=== PATIENT | male | born 1970 | race Caucasian/White ===

== ENCOUNTER 2023-05-21 14:16 | Emergency (ER) | payer MEDICARE, MEDICAID, SELFPAY ==
[2023-05-21 14:25] VITALS: BP 137/69; PULSE 106; RESP 18; TEMP 36.9; O2SAT 98; BMI 32.9
--- NOTE | 2023-05-21 14:33 | US_ITS ---
The [address] [address] Patient Name: LEANDER MASSEY MRN: [id number] date: 1970 Sex: M Assigned Patient Location: ER Current Patient Location: ER Accession/Order Number: [id number] Exam Date: 05/21/2023 14:35 Report Date: 05/21/2023 15:22 At the request of: RJ BOBBY Procedure: US venous doppler LE LT EXAM: US venous doppler LE LT HISTORY: DVT left lower extremity edema. COMPARISON: None. TECHNIQUE: Doppler color flow as well as spectral analysis were performed of the left lower extremity. FINDINGS: There is adequate flow, compressibility, or augmentation within the visualized deep venous structures of the left lower extremity. No evidence of deep venous thrombus. There is skin thickening involving the medial distal thigh. There is also subcutaneous edema. US/US venous doppler LE LT IMPRESSION: 1. No deep venous thrombus. Electronically authenticated by: CARLI CLEARY Date: 05/21/2023 15:22
--- NOTE | 2023-05-21 14:36 | ED.EXTPRO1 ---
HPI - Extremity Problem General Chief complaint: Extremity Problem, Nontraumatic Stated complaint: LOWER EXTREMITY PAIN LEFT LEG Time Seen by Provider: 05/21/23 14:18 Source: patient Mode of arrival: walk-in Limitations: no limitations History of Present Illness HPI Narrative: patient is a 52-year-old male history of dialysis who presents to the Emergency Room for pain in the left lower extremity that began last night. He denies any specific mechanism of injury or trauma. He states he was loading a bookshelf into a truck but denies that he hurt himself. He states last night he developed swelling, pain and redness to the left lower calf. He states today he has pain in the calf and left thigh. He denies fevers, chills, chest pain, shortness of breath. He has no history of blood clot. He drove himself to the Emergency Room. He receives dialysis on Sunday, , Sunday. there has been no drainage from the left leg. Related Data Home Medications Medication Instructions Recorded Confirmed amlodipine 10 mg tablet 10 mg PO QDAY 05/21/23 05/21/23 atorvastatin 40 mg tablet 40 mg PO QDAY 05/21/23 05/21/23 carvedilol 25 mg tablet 25 mg PO Q12H 05/21/23 05/21/23 gabapentin 300 mg capsule 300 mg PO Q12H 05/21/23 05/21/23 hydralazine 100 mg tablet 100 mg PO Q12H 05/21/23 05/21/23 lisinopril 20 mg tablet 20 mg PO QDAY 05/21/23 05/21/23 minoxidil 10 mg tablet 10 mg PO BID 05/21/23 05/21/23 vitamin B complex-vitamin C-folic 1 tab PO Q24H 05/21/23 05/21/23 acid 0.8 mg tablet (Nephro-Vianca) Allergies Allergy/AdvReac Type Severity Reaction Status Date / Time No Known Drug Allergies Allergy Verified 05/21/23 14:25 Review of Systems ROS Constitutional Denies: fever or chills Cardiovascular Denies: chest pain Respiratory Denies: shortness of breath or cough Gastrointestinal Denies: nausea or vomiting Musculoskeletal Reports: extremity pain; Denies: back pain Integumentary/Breast Reports: redness and skin pain Neurological Denies: headache Exam Narrative Exam Narrative: Gen.: Awake, alert, in no distress Head: Normocephalic, atraumatic ENT: Moist mucous membranes Respiratory: No respiratory distress Extremities: Moves extremities equally, diffuse swelling of the left foot, calf with circumferential erythema noted of the left distal calf, no open wounds or drainage nnoted. Erythema and induration noted to the left anterior thigh superior to the knee joint. Psych: Normal mood and affect Neuro: No focal neuro deficit Skin: Warm, dry Constitutional Vital Signs, click to edit/add: Last Vital Signs Temp 98.6 F 05/21/23 19:39 Pulse 94 H 05/21/23 19:39 Resp 18 05/21/23 19:39 BP 145/86 H 05/21/23 19:39 Pulse Ox 99 05/21/23 19:39 O2 Del Method Room Air 05/21/23 19:39 Course Vital Signs Vital signs: Vital Signs Temperature 98.4 F 05/21/23 14:25 Pulse Rate 106 H 05/21/23 14:25 Respiratory Rate 18 05/21/23 14:25 Blood Pressure 137/69 05/21/23 14:25 Pulse Oximetry 98 05/21/23 14:25 Oxygen Delivery Method Room Air 05/21/23 14:25 Temperature 98.6 F 05/21/23 19:39 Pulse Rate 94 H 05/21/23 19:39 Respiratory Rate 18 05/21/23 19:39 Blood Pressure 145/86 H 05/21/23 19:39 Pulse Oximetry 99 05/21/23 19:39 Oxygen Delivery Method Room Air 05/21/23 19:39 MDM - Extremity (Nontraumatic) MDM Narrative Medical decision making narrative: patient was treated with IV Zosyn, vancomycin for empiric treatment of cellulitis of the left lower extremity. Ultrasound of the leg shows no evidence of deep vein thrombosis. Patient with significant leukocytosis and white blood cell count at 19.3, no bandemia. Initial heart rate was 106. as a result patient meets sepsis criteria. Blood cultures are pending. as the redness, warmth and swelling to the left lower extremity has rapidly advancing last night, we recommended that the patient be admitted for IV antibiotics for cellulitis but he cannot be admitted to this facility as he is a dialysis patient in due for dialysis tomorrow. 2024: Patient was accepted by Dr. Herrera the hospitalist at [facility] for transfer to their medical floor. Patient is stable at this time, he was given additional morphine and Zofran for comfort. Medical Records Attestation: I reviewed the patient's medical records. Lab Data Attestation: I reviewed the patient's lab results. Labs: Lab Results 05/21/23 05/21/23 Range/Units 14:35 15:12 WBC 19.3 H (4.0-11.0) 10^3/uL RBC 3.37 L (4.70-6.10) 10^6/uL Hgb 11.7 L (14.0-18.0) g/dL Hct 35.5 L (42.0-54.0) % MCV 105.3 H (80.0-94.0) fL MCH 34.7 H (25.9-34.0) pg MCHC 33.0 (29.9-35.2) g/dL RDW 14.6 (11.0-15.0) % Plt Count 309 (150-450) 10^3/uL MPV 9.3 L (9.5-13.5) fL Neut % (Auto) 88.2 H (43.0-75.0) % Lymph % (Auto) 4.8 L (20.5-60.0) % [place] % (Auto) 4.5 (1.7-12.0) % Eos % (Auto) 1.7 (0.9-7.0) % Baso % (Auto) 0.1 L (0.2-2.0) % Neut # (Auto) 17.0 H (1.4-6.5) 10^3/uL Lymph # (Auto) 0.9 L (1.2-3.8) 10^3/uL [place] # (Auto) 0.9 H (0.3-0.8) 10^3/uL Eos # (Auto) 0.3 (0.0-0.7) 10^3/uL Baso # (Auto) 0.0 (0.0-0.1) 10^3/uL Abs Immat Gran (auto) 0.14 H (0.00-0.03) 10^3/uL Imm/Tot Granulo (auto) 0.7 H (0.0-0.5) % PT 10.3 (9.0-11.6) sec INR 0.97 APTT 28.3 (22.3-36.2) sec VBG pH 7.393 (7.330-7.430) VBG pCO2 46.3 (40.0-52.0) mmHg Sodium 137 (136-145) mmol/L Potassium 5.0 (3.5-5.1) mmol/L Chloride 97 L (98-107) mmol/L Carbon Dioxide 29.5 (21.0-32.0) mmol/L Anion Gap 15.5 BUN 55.0 H (7.0-18.0) mg/dL Creatinine 13.09 H* (0.70-1.30) mg/dL Est GFR ( Amer) 5 L (>=60) Est GFR (Non-Af Amer) 4 L (>=60) BUN/Creatinine Ratio 4.2 Glucose 91 (74-106) mg/dL Lactate 0.8 (0.4-2.0) mmol/L Calcium 9.5 (8.5-10.1) mg/dL Total Bilirubin 0.5 (0.2-1.0) mg/dL AST 25 (15-37) U/L ALT 8 L (16-63) U/L Alkaline Phosphatase 87 (46-116) U/L Total Protein 7.5 (6.4-8.2) g/dL Albumin 3.8 (3.4-5.0) g/dL Globulin 3.7 g/dL Albumin/Globulin Ratio 1.0 Imaging Data Venous US: Attestation: I have reviewed the pertinent imaging results. Radiologist's impression: Procedure: US venous doppler LE LT EXAM: US venous doppler LE LT HISTORY: DVT left lower extremity edema. COMPARISON: None. TECHNIQUE: Doppler color flow as well as spectral analysis were performed of the left lower extremity. FINDINGS: There is adequate flow, compressibility, or augmentation within the visualized deep venous structures of the left lower extremity. No evidence of deep venous thrombus. There is skin thickening involving the medial distal thigh. There is also subcutaneous edema. IMPRESSION: 1. No deep venous thrombus. Electronically authenticated by: CARLI CLEARY Date: 05/21/2023 15:22 Discharge Plan Discharge Chief Complaint: Extremity Problem, Nontraumatic Clinical Impression: Cellulitis of left leg, Sepsis, Dialysis patient Patient Disposition: Xfer Acute Care Hospital Time of Disposition Decision: 20:40 Discharge Location: [facility] Condition: Good Prescriptions / Home Meds: No Action amlodipine 10 mg tablet 10 mg PO QDAY atorvastatin 40 mg tablet 40 mg PO QDAY carvedilol 25 mg tablet 25 mg PO Q12H gabapentin 300 mg capsule 300 mg PO Q12H hydralazine 100 mg tablet 100 mg PO Q12H lisinopril 20 mg tablet 20 mg PO QDAY minoxidil 10 mg tablet 10 mg PO BID Nephro-Vianca 0.8 mg tablet 1 tab PO Q24H Referrals: HERI CUELLAR [Primary Care Provider] - 1 week
[2023-05-21] MEDS: PIPERACILLIN SODIUM/TAZOBACTAM 4.5 GM in 0.9 % SODIUM CHLORIDE 50 ML IV (14:54)
[2023-05-21 15:06] LABS: Basophils Percent Auto 0.1 % (0.2-2.0); Eosinophils Absolute Auto 0.3 10^3/uL (0.0-0.7); Eosinophils Percent Auto 1.7 % (0.9-7.0); Hematocrit 35.5 % (42.0-54.0); Hemoglobin 11.7 g/dL (14.0-18.0); Immature Granulocytes Abs Auto 0.14 10^3/uL (0.00-0.03); Immature Granulocytes Pct Auto 0.7 % (0.0-0.5); Lymphocytes Absolute Auto 0.9 10^3/uL (1.2-3.8); Lymphocytes Percent Auto 4.8 % (20.5-60.0); Mean Corpuscular Hemoglobin 34.7 pg (25.9-34.0); Mean Corpuscular Volume 105.3 fL (80.0-94.0); Mean Platelet Volume 9.3 fL (9.5-13.5); Monocytes Absolute Auto 0.9 10^3/uL (0.3-0.8); Monocytes Percent Auto 4.5 % (1.7-12.0); Neutrophils Percent Auto 88.2 % (43.0-75.0); Platelet Count 309 10^3/uL (150-450); Red Blood Count 3.37 10^6/uL (4.70-6.10); Red Cell Distribution Width 14.6 % (11.0-15.0); White Blood Count 19.3 10^3/uL (4.0-11.0)
[2023-05-21 15:18] LABS: PCO2 VBG 46.3 mmHg (40.0-52.0); pH VBG 7.393 (7.330-7.430)
[2023-05-21 15:20] LABS: INR 0.97; Partial Thromboplastin Time 28.3 sec (22.3-36.2); Prothrombin Time 10.3 sec (9.0-11.6)
[2023-05-21 15:25] LABS: Lactate/Lactic Acid 0.8 mmol/L (0.4-2.0)
[2023-05-21 15:33] LABS: Alanine Aminotransferase 8 U/L (16-63); Albumin Level 3.8 g/dL (3.4-5.0); Alkaline Phosphatase 87 U/L (46-116); Anion Gap 15.5; Aspartate Amino Transferase 25 U/L (15-37); BUN Creatinine Ratio 4.2; Bilirubin Total 0.5 mg/dL (0.2-1.0); Calcium 9.5 mg/dL (8.5-10.1); Carbon Dioxide 29.5 mmol/L (21.0-32.0); Chloride 97 mmol/L (98-107); Estimated GFR (African America 5 (>=60); Estimated GFR (Non-African Ame 4 (>=60); Globulin 3.7 g/dL; Glucose 91 mg/dL (74-106); Sodium 137 mmol/L (136-145); Total Protein 7.5 g/dL (6.4-8.2)
[2023-05-21] MEDS: VANCOMYCIN HCL 1,000 MG in 0.9 % SODIUM CHLORIDE 250 ML 250 MG IV (15:50)
[2023-05-21 19:39] VITALS: BP 145/86; PULSE 94; RESP 18; TEMP 37; O2SAT 99
[2023-05-21] MEDS: MORPHINE SULFATE 4 MG/ML VIAL IV (19:46)
[2023-05-21] MEDS: ONDANSETRON PF 4 MG/2 ML VIAL IV (19:46)
[2023-05-21 21:15] VITALS: BP 196/74; PULSE 98; RESP 20; O2SAT 97
[2023-05-21 21:58] VITALS: BP 194/72
[2023-05-21] MEDS: CARVEDILOL 25 MG TABLET PO (21:58)
[2023-05-21] MEDS: HYDRALAZINE HCL 25 MG TABLET 100 MG PO (21:58)
[2023-05-22 00:03] VITALS: BP 158/70; PULSE 98; RESP 16; TEMP 37.4; O2SAT 98
[2023-05-22 00:20] VITALS: BP 158/70; PULSE 98; RESP 16; TEMP 37.4; O2SAT 98
== END 2023-05-22 00:23 | disposition short-term general hospital (02) ==
PROVIDERS: Physician Assistant; Emergency Provider Emergency Medicine; PCP Nurse Practitioner Family
DX: A41.9 Sepsis, unspecified organism (principal); L03.116 Cellulitis of left lower limb; Z99.2 Dependence on renal dialysis; Z79.899 Other long term (current) drug therapy
CPT/HCPCS: 36415; 80053; 82800; 83605; 85025; 85610; 85730; 87040; 93971; 96365; 96366; 96368; 96375; 99285; J3370

== ENCOUNTER 2023-06-11 10:37 | Outpatient (OUT) | payer MEDICARE, MEDICAID, SELFPAY ==
[2023-06-11 11:14] LABS: Basophils Percent Auto 0.2 % (0.2-2.0); Eosinophils Percent Auto 0.9 % (0.9-7.0); Hematocrit 30.7 % (42.0-54.0); Hemoglobin 10.2 g/dL (14.0-18.0); Immature Granulocytes Abs Auto 0.06 10^3/uL (0.00-0.03); Immature Granulocytes Pct Auto 1.3 % (0.0-0.5); Lymphocytes Absolute Auto 0.5 10^3/uL (1.2-3.8); Lymphocytes Percent Auto 10.5 % (20.5-60.0); Mean Corpuscular HGB Conc 33.2 g/dL (29.9-35.2); Mean Corpuscular Hemoglobin 33.8 pg (25.9-34.0); Mean Corpuscular Volume 101.7 fL (80.0-94.0); Mean Platelet Volume 9.7 fL (9.5-13.5); Monocytes Absolute Auto 0.3 10^3/uL (0.3-0.8); Monocytes Percent Auto 6.3 % (1.7-12.0); Neutrophils Absolute Auto 3.7 10^3/uL (1.4-6.5); Neutrophils Percent Auto 80.8 % (43.0-75.0); Platelet Count 268 10^3/uL (150-450); Red Blood Count 3.02 10^6/uL (4.70-6.10); Red Cell Distribution Width 12.9 % (11.0-15.0); White Blood Count 4.6 10^3/uL (4.0-11.0)
[2023-06-11 11:34] LABS: INR 1.02; Partial Thromboplastin Time 33.5 sec (22.3-36.2); Prothrombin Time 10.8 sec (9.0-11.6)
[2023-06-11 11:35] LABS: Anion Gap 14.2; BUN Creatinine Ratio 3.3; Carbon Dioxide 30.4 mmol/L (21.0-32.0); Chloride 90 mmol/L (98-107); Estimated GFR (African America 5 (>=60); Estimated GFR (Non-African Ame 4 (>=60); Glucose 91 mg/dL (74-106); Potassium 3.6 mmol/L (3.5-5.1); Sodium 131 mmol/L (136-145)
== END 2023-06-11 10:38 | disposition home or self-care (01) ==
LOC: LAB 10:42
PROVIDERS: PCP Nurse Practitioner Family
DX: I74.09 Other arterial embolism and thrombosis of abdominal aorta (principal)
CPT/HCPCS: 36415; 80048; 85025; 85610; 85730; 87081

== ENCOUNTER 2023-10-22 12:20 | Emergency (ER) | payer MEDICARE, MEDICAID, SELFPAY ==
[2023-10-22 12:25] VITALS: BP 160/83; PULSE 105; RESP 20; TEMP 36.6; O2SAT 99; BMI 27.9
--- NOTE | 2023-10-22 13:04 | ED_ITS ---
HPI - Skin/Abscess/Foreign Bdy General Chief complaint: Skin/Abscess/Foreign Body Stated complaint: BACK PAIN Time Seen by Provider: 10/22/23 13:04 Source: patient Mode of arrival: walk-in Limitations: no limitations History of Present Illness HPI narrative: patient here for a tender swollen area in his right flank area. He said he's had a lump there for many many years does not bother him until recently. He has not had any trauma or injury. He said it started draining today a little bit. He is not on any antibiotics. He denies any history of diabetes. He's not had fever shakes or chills he is afebrile here. Related Data Home Medications Medication Instructions Recorded Confirmed amlodipine 10 mg tablet 10 mg PO QDAY 05/21/23 05/21/23 atorvastatin 40 mg tablet 40 mg PO QDAY 05/21/23 05/21/23 carvedilol 25 mg tablet 25 mg PO Q12H 05/21/23 05/21/23 gabapentin 300 mg capsule 300 mg PO Q12H 05/21/23 05/21/23 hydralazine 100 mg tablet 100 mg PO Q12H 05/21/23 05/21/23 lisinopril 20 mg tablet 20 mg PO QDAY 05/21/23 05/21/23 minoxidil 10 mg tablet 10 mg PO BID 05/21/23 05/21/23 vitamin B complex-vitamin C-folic 1 tab PO Q24H 05/21/23 05/21/23 acid 0.8 mg tablet (Nephro-Vianca) Allergies Allergy/AdvReac Type Severity Reaction Status Date / Time No Known Drug Allergies Allergy Verified 05/21/23 14:25 PFSH PFSH Social History Smoking status: Heavy tobacco smoker Exam Narrative Exam Narrative: awake alert pleasant in the right posterior flank area he has a 5 x 5 centimeter raised red fluctuant tender area. He can tell there is been some breech in the integrity with some drainage in the area. There is no subcutaneous emphysema. There is no surrounding lymphangitis.rest the back is normal. His cognition and mentation is normal. Constitutional Vital Signs, click to edit/add: Last Vital Signs Temp 98 F 10/22/23 12:25 Pulse 105 H 10/22/23 12:25 Resp 20 10/22/23 12:25 BP 160/83 H 10/22/23 12:25 Pulse Ox 99 10/22/23 12:25 Course Vital Signs Vital signs: Vital Signs Temperature 98 F 10/22/23 12:25 Pulse Rate 105 H 10/22/23 12:25 Respiratory Rate 20 10/22/23 12:25 Blood Pressure 160/83 H 10/22/23 12:25 Pulse Oximetry 99 10/22/23 12:25 Temperature 98 F 10/22/23 12:25 Pulse Rate 105 H 10/22/23 12:25 Respiratory Rate 20 10/22/23 12:25 Blood Pressure 160/83 H 10/22/23 12:25 Pulse Oximetry 99 10/22/23 12:25 MDM - Skin/Abscess/Foreign Bdy MDM Narrative Medical decision making narrative: after lidocaine one percent anesthesia to the area of maximum swelling a #11 blade was used to make a 1.5 cm incision. Very very large amount of purulent foul-smelling debris and waxy secretions were covered. Hemostats were used to go deeper breakup further loculations of the cystic infected structure. He tolerated it well. Iodoform packing was used. Dressings were applied. He'll be placed on Keflex as I believe this is coliforms causing the infection warm compresses, he can remove the packing in twenty-four hours Discharge Plan Discharge Chief Complaint: Skin/Abscess/Foreign Body Clinical Impression: Abscess Patient Disposition: Home, Self-Care Time of Disposition Decision: 13:24 Prescriptions / Home Meds: No Action amlodipine 10 mg tablet 10 mg PO QDAY Hold Instructions: was taken off it atorvastatin 40 mg tablet 40 mg PO QDAY carvedilol 25 mg tablet 25 mg PO Q12H gabapentin 300 mg capsule 300 mg PO Q12H hydralazine 100 mg tablet 100 mg PO Q12H lisinopril 20 mg tablet 20 mg PO QDAY minoxidil 10 mg tablet 10 mg PO BID Nephro-Vianca 0.8 mg tablet 1 tab PO Q24H Additional Instructions: Keflex/Freeburn/removed packing tomorrow/apply dressings thereafter Stand Alone Forms: Portal Instructions Referrals: HERI CUELLAR [Primary Care Provider] - 1 week
== END 2023-10-22 13:45 | disposition home or self-care (01) ==
LOC: ER 13:33
PROVIDERS: Emergency Provider Emergency Medicine Emergency Medical Services; PCP Nurse Practitioner Family
DX: L02.211 Cutaneous abscess of abdominal wall (principal); Z79.899 Other long term (current) drug therapy; F17.210 Nicotine dependence, cigarettes, uncomplicated
CPT/HCPCS: 10060; 99282

== ENCOUNTER 2024-01-08 16:40 | Emergency (ER) | payer MEDICARE, SELFPAY ==
[2024-01-08] VITALS (20 sets, daily range): BP systolic 168–240; BP diastolic 100–138; PULSE 96–135; RESP 12–38; O2SAT 72–100
[2024-01-08] MEDS: NITROGLYCERIN 0.4 MG BOTTLE 0.400000000000000022 MG PO (16:51)
--- NOTE | 2024-01-08 16:51 | XR_ITS ---
The [address] [address] Patient Name: LEANDER MASSEY MRN: [id number] date: 1970 Sex: M Assigned Patient Location: ER Current Patient Location: ER Accession/Order Number: [id number] Exam Date: 01/08/2024 16:48 Report Date: 01/08/2024 17:26 At the request of: RIRI PACKER Procedure: XR chest 1V PORTABLE CHEST X-RAY. INDICATION: Shortness of breath. COMPARISON: 03/01/2023 TECHNIQUE: Single AP portable chest radiograph. FINDINGS: TUBES AND LINES: None. LUNGS: There are bilateral perihilar interstitial opacities. PLEURA: No effusions or pneumothorax. HEART AND MEDIASTINUM: Cardiomegaly. OSSEOUS STRUCTURES: No acute abnormality. XR/XR chest 1V IMPRESSION: Bilateral perihilar interstitial opacities probably interstitial edema. Electronically authenticated by: JOHN SERRANO Date: 01/08/2024 17:26
--- NOTE | 2024-01-08 16:52 | ECG_ITS ---
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
--- NOTE | 2024-01-08 16:52 | PC.NURSE ---
Bi pap started 30/05 with rate of 12 at this time, resp remains at bedside.
[2024-01-08] MEDS: LABETALOL HCL 20 MG/4 ML SYRINGE IVP (16:54)
[2024-01-08] MEDS: NITROGLYCERIN IN 5 % DEXTROSE 50 MG/250 ML INFUS..BTL IV (16:56)
[2024-01-08 17:16] LABS: Basophils Absolute Auto 0.2 10^3/uL (0.0-0.1); Basophils Percent Auto 0.8 % (0.2-2.0); Eosinophils Absolute Auto 1.9 10^3/uL (0.0-0.7); Eosinophils Percent Auto 10.2 % (0.9-7.0); Hematocrit 33.9 % (42.0-54.0); Hemoglobin 10.5 g/dL (14.0-18.0); Immature Granulocytes Abs Auto 0.13 10^3/uL (0.00-0.03); Immature Granulocytes Pct Auto 0.7 % (0.0-0.5); Lymphocytes Absolute Auto 1.7 10^3/uL (1.2-3.8); Lymphocytes Percent Auto 9.2 % (20.5-60.0); Mean Corpuscular Hemoglobin 37.1 pg (25.9-34.0); Mean Corpuscular Volume 119.8 fL (80.0-94.0); Mean Platelet Volume 10.2 fL (9.5-13.5); Monocytes Absolute Auto 1.2 10^3/uL (0.3-0.8); Monocytes Percent Auto 6.4 % (1.7-12.0); Neutrophils Absolute Auto 13.7 10^3/uL (1.4-6.5); Neutrophils Percent Auto 72.7 % (43.0-75.0); Platelet Count 440 10^3/uL (150-450); Red Blood Count 2.83 10^6/uL (4.70-6.10); Red Cell Distribution Width 16.2 % (11.0-15.0); White Blood Count 18.8 10^3/uL (4.0-11.0)
[2024-01-08 17:23] LABS: Prothrombin Time 10.6 sec (9.0-11.6)
[2024-01-08 17:26] LABS: Alanine Aminotransferase 13 U/L (16-63); Albumin Globulin Ratio 0.9; Albumin Level 3.7 g/dL (3.4-5.0); Alkaline Phosphatase 121 U/L (46-116); Anion Gap 20.9; Aspartate Amino Transferase 14 U/L (15-37); BUN Creatinine Ratio 4.7; Bilirubin Total 0.5 mg/dL (0.2-1.0); Calcium 9.6 mg/dL (8.5-10.1); Carbon Dioxide 25.6 mmol/L (21.0-32.0); Chloride 97 mmol/L (98-107); Estimated GFR (African America 5 (>=60); Estimated GFR (Non-African Ame 4 (>=60); Globulin 4.3 g/dL; Glucose 131 mg/dL (74-106); Sodium 137 mmol/L (136-145); Troponin I High Sensitivity 19.4 pg/mL (4.0-76.1)
[2024-01-08 17:31] LABS: NT Pro B Type Natriuretic Pept >35000.0 pg/mL (<=900.0); Potassium 6.5 mmol/L (3.5-5.1)
[2024-01-08 17:32] LABS: Lactate/Lactic Acid 3.1 mmol/L (0.4-2.0)
[2024-01-08] MEDS: SODIUM BICARBONATE 50 MEQ/50 ML 8.4% - SYRINGE IV (17:49)
[2024-01-08] MEDS: DEXTROSE 50 %-WATER 25 GM/50 ML SYRINGE IV (17:50)
[2024-01-08] MEDS: CALCIUM GLUCONATE 1,000 MG/10 ML VIAL 1000 MG IVP (17:54)
--- NOTE | 2024-01-08 17:58 | ED.SOB1 ---
HPI - SOB/Dyspnea General Chief Complaint: Shortness of Breath/Dyspnea Stated Complaint: OTHER Time Seen by Provider: 01/08/24 16:50 Source: patient and family Mode of arrival: Wheelchair History of Present Illness HPI Narrative: This patient was brought to the emergency room by the family and private vehicle. He was an extremis and was seen immediately by myself and the nursing staff/respiratory therapy. Very quickly this patient was able to tell us that he missed his dialysis treatment today and had abrupt onset of shortness of breath this afternoon. He did state that last night he was breathing normally. He states that he was to have a doctor's appointment today, he said they canceled that appointment and then he was not able to keep his dialysis appointment because of that. He denies any chest pain. He does have a history of some COPD and emphysema. But he became abruptly dyspneic shortly before arrival and the daughter chose to drive him here instead of calling the ambulance. In retrospect he said 1 previous time he missed his dialysis and he went into acute respiratory distress as well. Related Data Home Medications ?Medication ?Instructions ?Recorded ?Confirmed amlodipine 10 mg tablet 10 mg PO QDAY 05/21/23 05/21/23 atorvastatin 40 mg tablet 40 mg PO QDAY 05/21/23 05/21/23 carvedilol 25 mg tablet 25 mg PO Q12H 05/21/23 05/21/23 gabapentin 300 mg capsule 300 mg PO Q12H 05/21/23 05/21/23 hydralazine 100 mg tablet 100 mg PO Q12H 05/21/23 05/21/23 lisinopril 20 mg tablet 20 mg PO QDAY 05/21/23 05/21/23 minoxidil 10 mg tablet 10 mg PO BID 05/21/23 05/21/23 vitamin B complex-vitamin C-folic 1 tab PO Q24H 05/21/23 05/21/23 acid 0.8 mg tablet (Nephro-Vianca) Allergies Allergy/AdvReac Type Severity Reaction Status Date / Time No Known Drug Allergies Allergy Verified 05/21/23 14:25 PFSH PFS Social History Smoking status: Heavy tobacco smoker Exam Narrative Exam Narrative: Patient was seen immediately upon arrival. He was clammy diaphoretic markedly dyspneic markedly hypertensive. Quickly laboratory testing was ordered EKG monitoring vital sign evaluation IVs were established and treatment initiated immediately upon arrival. On auscultation of his chest he had marked rales bilaterally in all lung gayle. Heart sounds were difficult to auscultate because of tachycardia and the presumptive pulmonary edema on auscultation. Twelve-lead EKG was done and did not show any ST segment elevation or arrhythmia. He was tachycardic. Skin was clammy and diaphoretic. Abdomen was not distended and was not tender. He had a large abdominal incision. This was not new. He did have 1+ lower leg edema. There is no evidence of phlebitis or DVT. Neurologically he was intact followed all commands evidence no confusion. Constitutional Vital Signs, click to edit/add: Last Vital Signs Pulse 103 H 01/08/24 17:47 Resp 28 H 01/08/24 17:47 BP 178/110 H 01/08/24 17:47 Pulse Ox 100 01/08/24 17:47 O2 Del Method Room Air 01/08/24 17:47 O2 Flow Rate 5 01/08/24 16:41 FiO2 30 01/08/24 17:44 Course Vital Signs Vital signs: Vital Signs Pulse Rate 134 H 01/08/24 16:41 Respiratory Rate 36 H 01/08/24 16:41 Blood Pressure 240/138 H 01/08/24 16:41 Pulse Oximetry 72 L 01/08/24 16:41 Oxygen Delivery Method Nasal Cannula 01/08/24 16:41 Oxygen Delivery Flow Rate 5 01/08/24 16:41 Pulse Rate 103 H 01/08/24 17:47 Respiratory Rate 28 H 01/08/24 17:47 Blood Pressure 178/110 H 01/08/24 17:47 Pulse Oximetry 100 01/08/24 17:47 Oxygen Delivery Method Room Air 01/08/24 17:47 Oxygen Delivery Flow Rate 5 01/08/24 16:41 Fraction of Inspired Oxygen 30 01/08/24 17:44 MDM - SOB/Dyspnea MDM Narrative Medical decision making narrative: My working presumptive diagnosis was acute respiratory distress secondary to pulmonary vascular congestion secondary to fluid overload secondary to missed dialysis. Treatment initiated immediately included BiPAP oxygen administration/sublingual nitroglycerin while nitroglycerin drip was being mixed. He was given labetalol 20 mg intravenously. He was not given any diuretics as I felt that controlling his blood pressure with the nitroglycerin drip would be more advantageous. A stat portable chest x-ray confirmed pulmonary vascular congestion. A call was placed very early to his hospital where he receives his dialysis in [place]. I spoke with the nurse adult education manager and told her that I felt he would need hemodialysis this evening. I hope to stabilize him for ground transfer but we also had [facility] on standby. Fortunately his patient responded to the above-mentioned intervention and his blood pressure came down substantially. Heart rate slowed clinical condition improved pulse oximetry was excellent. I spoke with the hospitalist at that facility and he is excepted him in transfer. At this time he is on nitroglycerin drip that was titrated aggressively to decrease the blood pressure. He is at 60 mics at this time. It was found that his potassium was substantially elevated so he was given treatment including calcium gluconate, sodium bicarb, insulin and glucose. There is no heart block or malignant arrhythmia on his EKG. Lab Data Labs: Lab Results 01/08/24 Range/Units 16:47 WBC 18.8 H (4.0-11.0) 10^3/uL RBC 2.83 L (4.70-6.10) 10^6/uL Hgb 10.5 L (14.0-18.0) g/dL Hct 33.9 L (42.0-54.0) % MCV 119.8 H (80.0-94.0) fL MCH 37.1 H (25.9-34.0) pg MCHC 31.0 (29.9-35.2) g/dL RDW 16.2 H (11.0-15.0) % Plt Count 440 (150-450) 10^3/uL MPV 10.2 (9.5-13.5) fL Neut % (Auto) 72.7 (43.0-75.0) % Lymph % (Auto) 9.2 L (20.5-60.0) % [place] % (Auto) 6.4 (1.7-12.0) % Eos % (Auto) 10.2 H (0.9-7.0) % Baso % (Auto) 0.8 (0.2-2.0) % Neut # (Auto) 13.7 H (1.4-6.5) 10^3/uL Lymph # (Auto) 1.7 (1.2-3.8) 10^3/uL [place] # (Auto) 1.2 H (0.3-0.8) 10^3/uL Eos # (Auto) 1.9 H (0.0-0.7) 10^3/uL Baso # (Auto) 0.2 H (0.0-0.1) 10^3/uL Abs Immat Gran (auto) 0.13 H (0.00-0.03) 10^3/uL Imm/Tot Granulo (auto) 0.7 H (0.0-0.5) % PT 10.6 (9.0-11.6) sec INR 1.00 Sodium 137 (136-145) mmol/L Potassium 6.5 H* (3.5-5.1) mmol/L Chloride 97 L (98-107) mmol/L Carbon Dioxide 25.6 (21.0-32.0) mmol/L Anion Gap 20.9 BUN 61.0 H (7.0-18.0) mg/dL Creatinine 13.08 H* (0.70-1.30) mg/dL Est GFR ( Amer) 5 L (>=60) Est GFR (Non-Af Amer) 4 L (>=60) BUN/Creatinine Ratio 4.7 Glucose 131 H (74-106) mg/dL Lactate 3.1 H* (0.4-2.0) mmol/L Calcium 9.6 (8.5-10.1) mg/dL Total Bilirubin 0.5 (0.2-1.0) mg/dL AST 14 L (15-37) U/L ALT 13 L (16-63) U/L Alkaline Phosphatase 121 H (46-116) U/L Troponin I High Sens 19.4 (4.0-76.1) pg/mL NT-Pro-B Natriuret Pep >73422.0 H* (<=900.0) pg/mL Total Protein 8.0 (6.4-8.2) g/dL Albumin 3.7 (3.4-5.0) g/dL Globulin 4.3 g/dL Albumin/Globulin Ratio 0.9 Critical Care Time Critical Care Time Total Critical Care Time: 60 Attestation: I remained at this patient's bedside nearly continuously throughout his acute care while his medications were being titrated and moment to moment decisions were made regarding the need for intubation or further aggressive airway management. Discharge Plan Discharge Chief Complaint: Shortness of Breath/Dyspnea Clinical Impression: Pulmonary edema, Chronic progressive renal failure, Acute hyperkalemia Patient Disposition: [facility] Time of Disposition Decision: 18:05 Condition: Fair Mode of Transportation: EMS Prescriptions / Home Meds: No Action amlodipine 10 mg tablet 10 mg PO QDAY Hold Instructions: was taken off it atorvastatin 40 mg tablet 40 mg PO QDAY carvedilol 25 mg tablet 25 mg PO Q12H gabapentin 300 mg capsule 300 mg PO Q12H hydralazine 100 mg tablet 100 mg PO Q12H lisinopril 20 mg tablet 20 mg PO QDAY minoxidil 10 mg tablet 10 mg PO BID Nephro-Vianca 0.8 mg tablet 1 tab PO Q24H Print Language: Upper Sorbian Referrals: HERI CUELLAR [Primary Care Provider] - 1 week
[2024-01-08] MEDS: INSULIN REGULAR 300 UNITS/3 ML 10 UNIT IV (18:01)
== END 2024-01-08 20:00 | disposition short-term general hospital (02) ==
PROVIDERS: Physician Assistant; Emergency Provider Emergency Medicine Emergency Medical Services; PCP Nurse Practitioner Family
DX: J81.1 Chronic pulmonary edema (principal); E87.5 Hyperkalemia; N18.9 Chronic kidney disease, unspecified; J43.9 Emphysema, unspecified; Z79.899 Other long term (current) drug therapy; F17.210 Nicotine dependence, cigarettes, uncomplicated; Z99.2 Dependence on renal dialysis
CPT/HCPCS: 36415; 71045; 80053; 83605; 83880; 84484; 85025; 85610; 93005; 94660; 96365; 96375; 99285

== ENCOUNTER 2024-02-08 10:59 | Emergency (ER) | payer MEDICARE, SELFPAY ==
[2024-02-08] VITALS (17 sets, daily range): BP systolic 117–149; BP diastolic 65–77; PULSE 71–108; TEMP 36.9; O2SAT 93–99; BMI 27.9
--- NOTE | 2024-02-08 12:51 | ED.GENADUL1 ---
HPI HPI - General Adult General Chief complaint: Extremity Problem, Nontraumatic Stated complaint: BUMP ON LEFT HIP Time Seen by Provider: 02/08/24 11:48 Source: patient Mode of arrival: walk-in Limitations: no limitations History of Present Illness HPI narrative: Patient is a 53-year-old male who is resenting to the ER with chief complaint of a 4 to 5-day history of a larger left upper leg abscess, lateral aspect. Patient is not diabetic, he does go to dialysis 3 times a week. Patient is on dialysis for a long history of untreated hypertension. Patient has no fever or chills. Patient has active drainage coming from the abscess, whitish/yellowish pus. Patient states he has had several other abscesses in the past. Patient has not followed up with a surgeon. Patient has had several abscesses in the past open and draining. Patient has no abdominal pain, nausea or vomiting. No chest pain or shortness of breath. No other systemic complaints All systems are negative except as noted/marked. All systems reviewed and otherwise negative. Nurses note and vital signs reviewed and patient is not hypoxic. General: The patient appears well and in no apparent distress. Patient is resting comfortably on cart. Patient is not toxic, lethargic, or listless Skin: Warm, dry, no pallor noted. There is no rash noted. No petechiae, purpura. Patient has approximately a somewhat fluctuant/indurated area at this approximately 4 x 3 cm with surrounding mild erythema that is approximately 10 x 6 cm, there is active drainage coming from 3 different areas where the skin has opened up to drain the pus. Patient is forage of motion of his left leg with no difficulty. Head: Normocephalic, atraumatic Eye: Normal conjunctiva, no drainage, EOMI. PERRL Ears, Nose, Mouth, and Throat: oral mucosa is moist. Nares patent. Mouth without vesicles. Cardiovascular: Regular Rate and Rhythm, no murmur, gallop, rub Respiratory: Patient is in no distress, no accessory muscle use, lungs are clear to auscultation, no wheezing, rales or rhonchi Back: non-tender, GI: Soft, no tenderness to palpation, no masses appreciated. No rebound, guarding, or rigidity noted. No distention Musculoskeletal: Patient has full range of motion of all of the extremities, no motor, sensory, or focal neurological deficits Neurological: A&O x4, normal speech Psychiatric: Cooperative Related Data Home Medications ?Medication ?Instructions ?Recorded ?Confirmed amlodipine 10 mg tablet 10 mg PO QDAY 05/21/23 02/08/24 atorvastatin 40 mg tablet 40 mg PO QDAY 05/21/23 02/08/24 carvedilol 25 mg tablet 25 mg PO Q12H 05/21/23 02/08/24 gabapentin 300 mg capsule 300 mg PO Q12H 05/21/23 02/08/24 hydralazine 100 mg tablet 100 mg PO Q12H 05/21/23 02/08/24 minoxidil 10 mg tablet 10 mg PO BID 05/21/23 02/08/24 clopidogrel 75 mg tablet 75 mg PO DAILY 02/08/24 02/08/24 isosorbide mononitrate 30 mg 30 mg PO DAILY 02/08/24 02/08/24 tablet,extended release 24 hr levothyroxine 112 mcg tablet 112 mcg PO DAILY 02/08/24 02/08/24 lisinopril 10 mg tablet 10 mg PO DAILY 02/08/24 02/08/24 sevelamer carbonate 800 mg tablet 2,400 mg PO Q8H 02/08/24 02/08/24 Previous Rx's ?Medication ?Instructions ?Recorded cephalexin 500 mg capsule 500 mg PO Q8H 7 days #21 caps 02/08/24 hydrocodone 5 mg-acetaminophen 325 1 tab PO Q4H PRN pain #10 tabs 02/08/24 mg tablet sulfamethoxazole 800 1 tab PO BID 7 days #14 tabs 02/08/24 mg-trimethoprim 160 mg tablet (Bactrim DS) Allergies Allergy/AdvReac Type Severity Reaction Status Date / Time No Known Drug Allergies Allergy Verified 05/21/23 14:25 Opioid HPI Opioid Management Most Recent Opioid Data: Last Pain Scale 2 05/21/23 21:15 PFSH PFSH Social History Smoking status: Heavy tobacco smoker Exam Constitutional Vital Signs, click to edit/add: Last Vital Signs Temp 98.4 F 02/08/24 11:04 Pulse 71 02/08/24 14:10 Resp 19 02/08/24 14:10 BP 117/74 02/08/24 13:15 Pulse Ox 97 02/08/24 14:10 O2 Del Method Room Air 02/08/24 11:04 Course Vital Signs Vital signs: Vital Signs Temperature 98.4 F 02/08/24 11:04 Pulse Rate 108 H 02/08/24 11:04 Respiratory Rate 18 02/08/24 11:04 Blood Pressure 132/65 02/08/24 11:04 Pulse Oximetry 96 02/08/24 11:04 Oxygen Delivery Method Room Air 02/08/24 11:04 Temperature 98.4 F 02/08/24 11:04 Pulse Rate 71 02/08/24 14:10 Respiratory Rate 19 02/08/24 14:10 Blood Pressure 117/74 02/08/24 13:15 Pulse Oximetry 97 02/08/24 14:10 Oxygen Delivery Method Room Air 02/08/24 11:04 Medical Decision Making MDM Narrative Medical decision making narrative: Patient had incision and drainage, see procedure note performed by JANELLE Membreno. Patient Tolerated procedure well without difficulty. Patient was placed on Bactrim and Keflex. Initially normal doses of Bactrim and Keflex were ordered, pharmacy called back, patient had renal dosing of Bactrim and Keflex done. Patient will take 1 Bactrim DS daily, patient will take Keflex 250 mg twice a day. There was a length of stay that was extended secondary to volume to the ER. Multiple blameless apologies were given, patient was very nice and understanding. Patient was thankful for help today. See procedure note Discharge Plan Discharge Stand Alone Forms: Portal Instructions Chief Complaint: Extremity Problem, Nontraumatic Clinical Impression: Abscess of left leg Patient Disposition: Home, Self-Care Time of Disposition Decision: 14:06 Condition: Fair Prescriptions / Home Meds: New hydrocodone-acetaminophen 5-325 mg tablet 1 tab PO Q4H PRN (Reason: pain) Qty: 10 0RF sulfamethoxazole-trimethoprim [Bactrim DS] 800-160 mg tablet 1 tab PO BID 7 Days Qty: 14 0RF cephalexin 500 mg capsule 500 mg PO Q8H 7 Days Qty: 21 0RF No Action clopidogrel 75 mg tablet 75 mg PO DAILY isosorbide mononitrate 30 mg tablet extended release 24 hr 30 mg PO DAILY levothyroxine 112 mcg tablet 112 mcg PO DAILY lisinopril 10 mg tablet 10 mg PO DAILY sevelamer carbonate 800 mg tablet 2,400 mg PO Q8H amlodipine 10 mg tablet 10 mg PO QDAY Hold Instructions: was taken off it atorvastatin 40 mg tablet 40 mg PO QDAY carvedilol 25 mg tablet 25 mg PO Q12H gabapentin 300 mg capsule 300 mg PO Q12H hydralazine 100 mg tablet 100 mg PO Q12H minoxidil 10 mg tablet 10 mg PO BID Print Language: South African Instructions: Abscess Incision and Drainage (DC) Additional Instructions: Call pcp for appt in 2-3 days ( remove packing in 2 days) - verbally discussed at bedside Referrals: HERI CUELLAR [Primary Care Provider] - 1 week Discharge Date/Time: 02/08/24 14:13
[2024-02-08] MEDS: BUPIVACAINE HCL 0.5% PF 50 MG/10 ML VIAL INJ (13:56)
--- NOTE | 2024-02-08 14:09 | ED_ITS ---
Documented by User: JANELLE Arevalo 02/08/24 14:18 HPI HPI - General Adult General Chief complaint: Extremity Problem, Nontraumatic Stated complaint: BUMP ON LEFT HIP Time Seen by Provider: 02/08/24 11:48 Source: patient Mode of arrival: walk-in Limitations: no limitations History of Present Illness HPI narrative: 53 yr male complaint of left lateral hip abscess, onset 2-3 days ago, Moderate pain left lateral hip, patient has a history of prior abscesses with drainage, he is a dialysis patient, no recurrent antibiotics but does take Plavix. Patient noted the abscess started to drain recently.No pain with groin motion at the hip. He denies any fevers or chills.Patient tried to get into his PCP but was unable to do so today and did not want to wait through the weekend. I do not like getting these drained but I know it has to be done. Radiation: Reports other (left lateral hip. ) Severity: moderate Quality: Reports aching and constant Pain Consistency: Reports constant Relieving factors: Reports none Exacerbating factors: Reports other (pressure on abscess) Treatments prior to arrival: Reports none Related Data Home Medications ?Medication ?Instructions ?Recorded ?Confirmed amlodipine 10 mg tablet 10 mg PO QDAY 05/21/23 02/08/24 atorvastatin 40 mg tablet 40 mg PO QDAY 05/21/23 02/08/24 carvedilol 25 mg tablet 25 mg PO Q12H 05/21/23 02/08/24 gabapentin 300 mg capsule 300 mg PO Q12H 05/21/23 02/08/24 hydralazine 100 mg tablet 100 mg PO Q12H 05/21/23 02/08/24 minoxidil 10 mg tablet 10 mg PO BID 05/21/23 02/08/24 clopidogrel 75 mg tablet 75 mg PO DAILY 02/08/24 02/08/24 isosorbide mononitrate 30 mg 30 mg PO DAILY 02/08/24 02/08/24 tablet,extended release 24 hr levothyroxine 112 mcg tablet 112 mcg PO DAILY 02/08/24 02/08/24 lisinopril 10 mg tablet 10 mg PO DAILY 02/08/24 02/08/24 sevelamer carbonate 800 mg tablet 2,400 mg PO Q8H 02/08/24 02/08/24 Previous Rx's ?Medication ?Instructions ?Recorded cephalexin 500 mg capsule 500 mg PO Q8H 7 days #21 caps 02/08/24 hydrocodone 5 mg-acetaminophen 325 1 tab PO Q4H PRN pain #10 tabs 02/08/24 mg tablet sulfamethoxazole 800 1 tab PO BID 7 days #14 tabs 02/08/24 mg-trimethoprim 160 mg tablet (Bactrim DS) Allergies Allergy/AdvReac Type Severity Reaction Status Date / Time No Known Drug Allergies Allergy Verified 05/21/23 14:25 Opioid HPI Opioid Management Most Recent Opioid Data: Last Pain Scale 2 05/21/23 21:15 Review of Systems ROS Constitutional Denies: fever or chills Eyes Denies: change in vision Ears, nose, mouth, and throat Denies: throat pain or neck pain Cardiovascular Denies: chest pain Respiratory Denies: shortness of breath or cough Gastrointestinal Denies: nausea or vomiting Musculoskeletal Reports: extremity pain (+ pain soft tissue abscess left lateral hip); Denies: back pain or neck pain Neurological Denies: headache Psychiatric Denies: anxiety Allergic/Immunologic Denies: hives PFSH [facility] Social History Smoking status: Heavy tobacco smoker Exam Narrative Exam Narrative: Nurses notes and vital signs reviewed and patient is not hypoxic. General: The patient appears well and in no apparent distress. Patient is resting comfortably on cart. Skin: Warm, dry, no pallor noted. 25 cm abscess with surrounding cellulitis noted to the left lateral hip, central point is necrotic concerning for MRSA abscess there is weeping and drainage coming from small punctate holes, no evidence of streaking, no lymphadenopathy in the in the groin. Painless log roll of the hip noted. No scrotal tenderness ( abscess cellulitis localized to lateral hip) Head: Normocephalic, atraumatic. Neck: Supple, trachea mid-line, no tenderness, no lymphadenopathy Eye: Pupils are equal, round and reactive to light, EOMI Ears, Nose, Mouth, and Throat: external exam unremarkable. Cardiovascular: Regular Rate and Rhythm Respiratory: Patient is in no distress, no accessory muscle use, lungs are clear to auscultation, no wheezing, rales or rhonchi. Back: non-tender, no CVA tenderness Musculoskeletal: normal ROM, no tenderness, no swelling, NO Pain with passive range of motion bilateral hips and knee. GI: Normal bowel sounds, no tenderness to palpation, no masses appreciated. No rebound, guarding, or rigidity noted. Neurological: A&O x4 Psychiatric: Cooperative Constitutional Vital Signs, click to edit/add: Last Vital Signs Temp 98.4 F 02/08/24 11:04 Pulse 71 02/08/24 14:10 Resp 19 02/08/24 14:10 BP 117/74 02/08/24 13:15 Pulse Ox 97 02/08/24 14:10 O2 Del Method Room Air 02/08/24 11:04 Course Vital Signs Vital signs: Vital Signs Temperature 98.4 F 02/08/24 11:04 Pulse Rate 108 H 02/08/24 11:04 Respiratory Rate 18 02/08/24 11:04 Blood Pressure 132/65 02/08/24 11:04 Pulse Oximetry 96 02/08/24 11:04 Oxygen Delivery Method Room Air 02/08/24 11:04 Temperature 98.4 F 02/08/24 11:04 Pulse Rate 71 02/08/24 14:10 Respiratory Rate 19 02/08/24 14:10 Blood Pressure 117/74 02/08/24 13:15 Pulse Oximetry 97 02/08/24 14:10 Oxygen Delivery Method Room Air 02/08/24 11:04 Medical Decision Making MDM Narrative Medical decision making narrative: Localized but large abscess with cellulitis left lateral hip, patient without fevers or chills. He does attend dialysis. Appearance concerning for MRSA and will be covered with Keflex and Bactrim. Newman for acute pain. Patient consenting to incision and drainage as recommended for the mainstay of treatment. Wound cultures will be pending.We discussed warm compresses, packing removal in 2 days. Follow-up to PCP for reevaluation return to the ER symptoms worsen or new symptoms develop. The patient is to followup with primary care physician in next 2-3 days or to return to the emergency department should any of the signs or symptoms worsen or new symptoms develop. Patient had questions answered. The patient agrees with the following Diagnosis and Treatment plan and the patient will be discharged h ome. Discharge Plan Discharge Stand Alone Forms: Portal Instructions Chief Complaint: Extremity Problem, Nontraumatic Clinical Impression: Abscess of left leg Patient Disposition: Home, Self-Care Time of Disposition Decision: 14:06 Condition: Fair Prescriptions / Home Meds: New hydrocodone-acetaminophen 5-325 mg tablet 1 tab PO Q4H PRN (Reason: pain) Qty: 10 0RF sulfamethoxazole-trimethoprim [Bactrim DS] 800-160 mg tablet 1 tab PO BID 7 Days Qty: 14 0RF cephalexin 500 mg capsule 500 mg PO Q8H 7 Days Qty: 21 0RF No Action clopidogrel 75 mg tablet 75 mg PO DAILY isosorbide mononitrate 30 mg tablet extended release 24 hr 30 mg PO DAILY levothyroxine 112 mcg tablet 112 mcg PO DAILY lisinopril 10 mg tablet 10 mg PO DAILY sevelamer carbonate 800 mg tablet 2,400 mg PO Q8H amlodipine 10 mg tablet 10 mg PO QDAY Hold Instructions: was taken off it atorvastatin 40 mg tablet 40 mg PO QDAY carvedilol 25 mg tablet 25 mg PO Q12H gabapentin 300 mg capsule 300 mg PO Q12H hydralazine 100 mg tablet 100 mg PO Q12H minoxidil 10 mg tablet 10 mg PO BID Print Language: Turkish Instructions: Abscess Incision and Drainage (DC) Additional Instructions: Call pcp for appt in 2-3 days ( remove packing in 2 days) - verbally discussed at bedside Referrals: HERI CUELLAR [Primary Care Provider] - 1 week Discharge Date/Time: 02/08/24 14:13 Procedures ED ID Incision & Drainage Moderate Sedation Message Please read if using moderate sedation: Incision and drainage: Cultures were obtained and sent to the lab from drainage presenet on arrival to ER. A single layer of iodine was used to prep the area. Drapes were placed to ensure isolation of the abscess and surrounding skin tissue. A regional field block was performed with 10 ml of 50/50 mix bupivicaine 0.5% and 1% lidocaine. Incision was made with an 11 blade to the full dimension of the abscess, significant amount purulent material was expre ssed. . The abscess was explored, the use of hemostats were used to break up the septum and loculations within the abscess. The cavity was irrigated with three 60 cc syringe of normal saline with H2O2. . Plain, 0.25 packing was placed within the abscess. A dry sterile dressing was placed. Wound culture pending Patient tolerated the procedure well and wound was dressed with gauze. Patient is to follow-up in the next 2-3 days with PCP or ED to have area evaluated. Discussed packing removal in 2 days Documented by User: Gerber Abreu MD 02/08/24 15:43 HPI HPI - General Adult General Chief complaint: Extremity Problem, Nontraumatic Stated complaint: BUMP ON LEFT HIP Time Seen by Provider: 02/08/24 11:48 Related Data Home Medications ?Medication ?Instructions ?Recorded ?Confirmed amlodipine 10 mg tablet 10 mg PO QDAY 05/21/23 02/08/24 atorvastatin 40 mg tablet 40 mg PO QDAY 05/21/23 02/08/24 carvedilol 25 mg tablet 25 mg PO Q12H 05/21/23 02/08/24 gabapentin 300 mg capsule 300 mg PO Q12H 05/21/23 02/08/24 hydralazine 100 mg tablet 100 mg PO Q12H 05/21/23 02/08/24 minoxidil 10 mg tablet 10 mg PO BID 05/21/23 02/08/24 clopidogrel 75 mg tablet 75 mg PO DAILY 02/08/24 02/08/24 isosorbide mononitrate 30 mg 30 mg PO DAILY 02/08/24 02/08/24 tablet,extended release 24 hr levothyroxine 112 mcg tablet 112 mcg PO DAILY 02/08/24 02/08/24 lisinopril 10 mg tablet 10 mg PO DAILY 02/08/24 02/08/24 sevelamer carbonate 800 mg tablet 2,400 mg PO Q8H 02/08/24 02/08/24 Previous Rx's ?Medication ?Instructions ?Recorded cephalexin 500 mg capsule 500 mg PO Q8H 7 days #21 caps 02/08/24 hydrocodone 5 mg-acetaminophen 325 1 tab PO Q4H PRN pain #10 tabs 02/08/24 mg tablet sulfamethoxazole 800 1 tab PO BID 7 days #14 tabs 02/08/24 mg-trimethoprim 160 mg tablet (Bactrim DS) Allergies Allergy/AdvReac Type Severity Reaction Status Date / Time No Known Drug Allergies Allergy Verified 05/21/23 14:25 Opioid HPI Opioid Management Most Recent Opioid Data: Last Pain Scale 2 05/21/23 21:15 PFSH PFSH Social History Smoking status: Heavy tobacco smoker Exam Constitutional Vital Signs, click to edit/add: Last Vital Signs Temp 98.4 F 02/08/24 11:04 Pulse 71 02/08/24 14:10 Resp 19 02/08/24 14:10 BP 117/74 02/08/24 13:15 Pulse Ox 97 02/08/24 14:10 O2 Del Method Room Air 02/08/24 11:04 Course Vital Signs Vital signs: Vital Signs Temperature 98.4 F 02/08/24 11:04 Pulse Rate 108 H 02/08/24 11:04 Respiratory Rate 18 02/08/24 11:04 Blood Pressure 132/65 02/08/24 11:04 Pulse Oximetry 96 02/08/24 11:04 Oxygen Delivery Method Room Air 02/08/24 11:04 Temperature 98.4 F 02/08/24 11:04 Pulse Rate 71 02/08/24 14:10 Respiratory Rate 19 02/08/24 14:10 Blood Pressure 117/74 02/08/24 13:15 Pulse Oximetry 97 02/08/24 14:10 Oxygen Delivery Method Room Air 02/08/24 11:04 Medical Decision Making [facility] Narrative Medical decision making narrative: Localized but large abscess with cellulitis left lateral hip, patient without fevers or chills. He does attend dialysis. Appearance concerning for MRSA and will be covered with Keflex and Bactrim. Newman for acute pain. Patient consenting to incision and drainage as recommended for the mainstay of treatment. Wound cultures will be pending.We discussed warm compresses, packing removal in 2 days. Follow-up to PCP for reevaluation return to the ER symptoms worsen or new symptoms develop. The patient is to followup with primary care physician in next 2-3 days or to return to the emergency department should any of the signs or symptoms worsen or new symptoms develop. Patient had questions answered. The patient agrees with the following Diagnosis and Treatment plan and the patient will be discharged home. I, Dr Abreu, have reviewed the above progress note and course of action in the ER; agree with the above. I have personally seen and evaluated this patient, gone over history and physical, and discussed disposition and treatment plan with the patient. Discharge Plan Discharge Stand Alone Forms: Portal Instructions Chief Complaint: Extremity Problem, Nontraumatic Clinical Impression: Abscess of left leg Patient Disposition: Home, Self-Care Time of Disposition Decision: 14:06 Condition: Fair Prescriptions / Home Meds: New hydrocodone-acetaminophen 5-325 mg tablet 1 tab PO Q4H PRN (Reason: pain) Qty: 10 0RF sulfamethoxazole-trimethoprim [Bactrim DS] 800-160 mg tablet 1 tab PO BID 7 Days Qty: 14 0RF cephalexin 500 mg capsule 500 mg PO Q8H 7 Days Qty: 21 0RF No Action clopidogrel 75 mg tablet 75 mg PO DAILY isosorbide mononitrate 30 mg tablet extended release 24 hr 30 mg PO DAILY levothyroxine 112 mcg tablet 112 mcg PO DAILY lisinopril 10 mg tablet 10 mg PO DAILY sevelamer carbonate 800 mg tablet 2,400 mg PO Q8H amlodipine 10 mg tablet 10 mg PO QDAY Hold Instructions: was taken off it atorvastatin 40 mg tablet 40 mg PO QDAY carvedilol 25 mg tablet 25 mg PO Q12H gabapentin 300 mg capsule 300 mg PO Q12H hydralazine 100 mg tablet 100 mg PO Q12H minoxidil 10 mg tablet 10 mg PO BID Print Language: Turkish Instructions: Abscess Incision and Drainage (DC) Additional Instructions: Call pcp for appt in 2-3 days ( remove packing in 2 days) - verbally discussed at bedside Referrals: HERI CUELLAR [Primary Care Provider] - 1 week Discharge Date/Time: 02/08/24 14:13
== END 2024-02-08 14:13 | disposition home or self-care (01) ==
PROVIDERS: Emergency Provider Emergency Medicine; PCP Nurse Practitioner Family
DX: L02.416 Cutaneous abscess of left lower limb (principal); I10 Essential (primary) hypertension; Z99.2 Dependence on renal dialysis; Z79.899 Other long term (current) drug therapy; Z79.890 Hormone replacement therapy; F17.210 Nicotine dependence, cigarettes, uncomplicated
CPT/HCPCS: 10060; 87070; 87150; 87186; 99283

== ENCOUNTER 2024-04-26 02:05 | Emergency (ER) | payer MEDICARE, SELFPAY ==
[2024-04-26] VITALS (35 sets, daily range): BP systolic 167–191; BP diastolic 94–111; PULSE 8–122; RESP 14; O2SAT 97–100
--- NOTE | 2024-04-26 02:50 | XR_ITS ---
The [address] [address] Patient Name: LEANDER MASSEY MRN: [id number] date: 1970 Sex: M Assigned Patient Location: ED.MAIN Current Patient Location: Accession/Order Number: [id number] Exam Date: 04/26/2024 02:50 Report Date: 04/27/2024 00:21 At the request of: ANNETTE RODGERS Procedure: XR chest 1V CLINICAL HISTORY: Respiratory distress. FINDINGS: Portable AP view of the chest obtained. Cardiomediastinal silhouette is chronically enlarged. Worsening congestive pattern and increasing bibasilar infiltrates. No large effusion. No acute bony abnormality. XR/XR chest 1V IMPRESSION: Cardiomegaly and worsening congestive pattern with increasing lower lobe infiltrates, likely related to edema. Electronically authenticated by: EDMOND FREDERICK Date: 04/27/2024 00:21
[2024-04-26 05:48] LABS: PCO2 VBG 52.1 mmHg (40.0-52.0); pH VBG 7.346 (7.330-7.430)
[2024-04-26 06:00] LABS: pH VBG 7.132 (7.330-7.430)
[2024-04-26 06:00] LABS: Internal Control Within Normal Limits; SARS-CoV-2 Ag NEGATIVE (NEGATIVE)
[2024-04-26 06:01] LABS: Potassium 4.1 mmol/L (3.5-5.1); Sodium 136 mmol/L (136-145)
[2024-04-26 06:01] LABS: PCO2 VBG 80.4 mmHg (40.0-52.0)
[2024-04-26 06:02] LABS: Anion Gap 16.2; BUN Creatinine Ratio 4.4; Calcium 9.1 mg/dL (8.5-10.1); Carbon Dioxide 29.9 mmol/L (21.0-32.0); Chloride 94 mmol/L (98-107); Estimated GFR (African America 8 (>=60); Estimated GFR (Non-African Ame 6 (>=60); Glucose 138 mg/dL (74-106); Troponin I High Sensitivity 17.9 pg/mL (4.0-76.1)
[2024-04-26 06:04] LABS: Hematocrit 34.3 % (42.0-54.0); Hemoglobin 10.8 g/dL (14.0-18.0); Mean Corpuscular HGB Conc 31.5 g/dL (29.9-35.2); Mean Corpuscular Hemoglobin 31.6 pg (25.9-34.0); Mean Corpuscular Volume 100.3 fL (80.0-94.0); Mean Platelet Volume 9.9 fL (9.5-13.5); Platelet Count 327 10^3/uL (150-450); Red Blood Count 3.42 10^6/uL (4.70-6.10); Red Cell Distribution Width 13.1 % (11.0-15.0); White Blood Count 13.1 10^3/uL (4.0-11.0)
[2024-04-26 06:06] LABS: Basophils Percent Auto 0.8 % (0.2-2.0); Eosinophils Percent Auto 3.9 % (0.9-7.0); Lymphocytes Percent Auto 14.7 % (20.5-60.0); Monocytes Percent Auto 10.3 % (1.7-12.0); Neutrophils Percent Auto 69.8 % (43.0-75.0)
[2024-04-26 06:07] LABS: Immature Granulocytes Pct Auto 0.5 % (0.0-0.5); Neutrophils Absolute Auto 9.2 10^3/uL (1.4-6.5)
[2024-04-26 06:08] LABS: Basophils Absolute Auto 0.1 10^3/uL (0.0-0.1); Eosinophils Absolute Auto 0.5 10^3/uL (0.0-0.7); Immature Granulocytes Abs Auto 0.06 10^3/uL (0.00-0.03); Lymphocytes Absolute Auto 1.9 10^3/uL (1.2-3.8); Monocytes Absolute Auto 1.4 10^3/uL (0.3-0.8)
[2024-04-26] MEDS: HYDRALAZINE HCL 20 MG/ML VIAL 5 MG IVP (07:04)
[2024-04-26] MEDS: HYDRALAZINE HCL 20 MG/ML VIAL 10 MG IVP (08:31)
== END 2024-04-26 09:55 | disposition short-term general hospital (02) ==
LOC: ER 05:29
PROVIDERS: Emergency Provider Internal Medicine; PCP Nurse Practitioner Family
DX: J96.90 Respiratory failure, unspecified, unspecified whether with hypoxia or hypercapnia (principal); J44.9 Chronic obstructive pulmonary disease, unspecified; F17.200 Nicotine dependence, unspecified, uncomplicated; Z20.822 Contact with and (suspected) exposure to COVID-19
CPT/HCPCS: 36415; 71045; 80048; 82800; 84484; 85025; 87811; 93005; 94640; 94660; 96374; 96376; 99291; 99292; J0360; J2919; J3475

== ENCOUNTER 2024-05-27 04:29 | Emergency (ER) | payer MEDICARE, SELFPAY ==
[2024-05-27] VITALS (27 sets, daily range): BP systolic 102–229; BP diastolic 59–121; PULSE 70–102; RESP 16; O2SAT 88–100
--- NOTE | 2024-05-27 | XR_ITS ---
The [address] [address] Patient Name: LEANDER MASSEY MRN: [id number] date: 1970 Sex: M Assigned Patient Location: ER Current Patient Location: ER Accession/Order Number: [id number] Exam Date: 05/27/2024 06:25 Report Date: 05/27/2024 06:43 At the request of: JORDON MARKER Procedure: XR chest 1V EXAMINATION: XR chest 1V HISTORY: post intubation ET tube advanced COMPARISON: XR chest 05/27/2024 5:58 AM FINDINGS: LUNGS: Endotracheal tube placement with tip 6.8 cm above the jhoan. Mild opacities within right lung base. VASCULATURE: No increased pulmonary vasculature. PLEURA: No pneumothorax, effusion, or pleural thickening. CARDIAC: No cardiomegaly or cardiac silhouette abnormality. MEDIASTINUM: No visible mass or adenopathy. BONES: No fracture or visible bone lesion. OTHER: Negative. XR/XR chest 1V IMPRESSION: 1. Endotracheal tube with tip 6.8 cm above the jhoan. 2. Moderate opacities within right lung base suggestive of infiltrates. The right lateral lung base was clipped from the study. Electronically authenticated by: LUDMILA MACK Date: 05/27/2024 06:43
--- NOTE | 2024-05-27 04:34 | XR_ITS ---
The [address] [address] Patient Name: LEANDER MASSEY MRN: [id number] date: 1970 Sex: M Assigned Patient Location: ER Current Patient Location: ED.MAIN Accession/Order Number: [id number] Exam Date: 05/27/2024 04:40 Report Date: 05/27/2024 05:01 At the request of: JORDON MARKER Procedure: XR chest 1V EXAM: XR chest 1V HISTORY: SOB COMPARISON: Chest radiograph dated 04/26/2024. TECHNIQUE: One view of the chest was obtained. FINDINGS: The cardiac silhouette is stable in size. There are mixed interstitial and airspace opacities in the lungs. There is no significant pneumothorax or right pleural effusion. There is a small left pleural effusion. No acute osseous abnormality is seen. XR/XR chest 1V IMPRESSION: 1. Stable enlarged cardiac silhouette with a small left pleural effusion and mixed interstitial and airspace opacities in the lungs that could represent pulmonary edema and/or multifocal pneumonia. Electronically authenticated by: Bartolo DIXON Date: 05/27/2024 05:01
--- NOTE | 2024-05-27 04:35 | ECG_ITS ---
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
--- OUTSIDE RECORDS SUMMARY | 2024-05-27 04:43 | XMS_ITS | CCD ---
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 Apprentice Name Role Phone Ace Marr Unavailable Unavailable Ace Marr Unavailable Unavailable Vivian Motta Attending Provider [phone] Shantell Osei Primary Care Provider [phone] Vivian Motta Attending Provider Shantell Osei Primary Care Provider Ace Marr Unavailable Unavailable Unavailable Maria Esther, Junior Unavailable Shantell Osei Unavailable Patrice Levine Unavailable [phone] WinsomeOctavio feltonkolton Unavailable NAJENNA CORTEZ Admitting Unavailable NAZZAL, JUSTINIER Attending Unavailable UNKNOWN, PHYSICIAN Primary Care Unavailable UNKNOWN, PHYSICIAN Referring Unavailable NAZULEMAAL, JUSTINIER Surgeon Unavailable GA Procedure Practitioner Unavailab Monica Grimes Unavailable KISHOR Osei Primary Care Provider MD Patrice Levine Attending Provider [phone] Gerber Short Unavailable MARIA ESTHER, JUNIOR Primary Care Unavailable PAY, DR MENDOZA Admitting Unavailable PAY, DR MENDOZA Attending Unavailable JANELLE BOBBY Consulting Unavailable MARIA ESTHER, JUNIOR Admitting Unavailable MARIA ESTHER, JUNIOR Attending Unavailable SHANTELL OSEI Primary Care Unavailable MARIA ESTHER, JUNIOR Consulting Unavailable MARIA ESTHER, JUNIOR Admitting Unavailable MARIA ESTHER, JUNIOR Attending Unavailable SEA, SHANTELL Primary Care Unavailable MARIA ESTHER, JUNIOR Consulting Unavailable SEA, SHANTELL Primary Care Unavailable DALLIN, NAILA Admitting Unavailable DALLIN, NAILA Attending Unavailable JANELLE BOBBY Consulting Unavailable Ludmila Joseph Consulting Unavailable SEA, SHANTELL Primary Care Unavailable MARKER, DR RUVALCABA Admitting Unavailable MARKER, DR RUVALCABA Attending Unavailable ASIYA, JANELLE DELISA Consulting Unavailable MARKER, DR RUVALCABA Consulting Unavailable SANDRA SINGH Consulting Unavailable MARIA ESTHER, JUNIOR Admitting Unavailable MARIA ESTHER, JUNIOR Attending Unavailable SEA, SHANTELL Primary Care Unavailable MARIA ESTHER, JUNIOR Admitting Unavailable MARIA ESTHER, JUNIOR Attending Unavailable ALGHOTHANI, MOHAMAD Referring Unavailable MARIA ESTHER, JUNIOR Primary Care Unavailable MARIA ESTHER, JUNIOR Consulting Unavailable SEA, SHANTELL Primary Care Unavailable MIKAELA, DR SRINIVASAN Baker Admitting Unavailable MIKAELA, DR SRINIVASAN Baker Attending Unavailable MIKAELA, DR SRINIVASAN Baker Consulting Unavailable SEA, SHANTELL Admitting Unavailable SEA, SHANTELL Attending Unavailable SEA, SHANTELL Primary Care Unavailable SEA, SHANTELL Consulting Unavailable MARIA ESTHER, JUNIOR Admitting Unavailable MARIA ESTHER, JUNIOR Attending Unavailable SEA, SHANTELL Primary Care Unavailable MARIA ESTHER, JUNIOR Consulting Unavailable MARIA ESTHER, JUNIOR Admitting Unavailable MARIA ESTHER, JUNIOR Attending Unavailable SEA, SHANTELL Referring Unavailable SEA, SHANTELL Primary Care Unavailable MARIA ESTHER, JUNIOR Consulting Unavailable ALGHOTHANI, MOHAMAD Admitting Unavailable ALGHOTHANI, MOHAMAD Attending Unavailable MARIA ESTHER, JUNIOR Primary Care Unavailable ADRIENNE MOLINA Consulting Unavailable ALGHOTHANI, MOHAMAD Consulting Unavailable BAKHOUS, AZIZ Admitting Unavailable BAKHOUS, AZIZ Attending Unavailable SEA, SHANTELL Primary Care Unavailable BAKHOUS, AZIZ Consulting Unavailable SELENE, DR WARNER Admitting Unavailable SELENE, DR WARNER Attending Unavailable SEA, SHANTELL Primary Care Unavailable SELENE, DR WARNER Consulting Unavailable MARIA ESTHER, JUNIOR Admitting Unavailable MARIA ESTHER, JUNIOR Attending Unavailable SEA, SHANTELL Primary Care Unavailable MARIA ESTHER, JUNIOR Consulting Unavailable SEA, SHANTELL Primary Care Unavailable ANNETTE RODGERS Admitting Unavailable ANNETTE RODGERS Attending Unavailable JANELLE BOBBY Consulting Unavailable SEA, SHANTELL Primary Care Unavailable MIKAELA, DR SRINIVASAN Baker Admitting Unavailable MIKAELA, DR SRINIVASAN Baker Attending Unavailable MIKAELA, DR SIRNIVASAN Baker Consulting Unavailable SUBHASH VICENTE Consulting Unavailable SEA, SHANTELL Primary Care Unavailable DALLIN, NAILA Admitting Unavailable DALLIN, NAILA Attending Unavailable ZIJEANNIE, DR LUDMILA Baker Consulting Unavailable DALLIN, NAILA Consulting Unavailable DYLLAN ABREU Consulting Unavailable SEA, SHANTELL Primary Care Unavailable MARKER, DR RUVALCABA Admitting Unavailable MARKER, DR RUVALCABA Attending Unavailable ASIYA, JANELLE HERCULES Consulting Unavailable VIVIAN MCKEON Consulting Unavailable MARIA ESTHER, JUNIOR Admitting Unavailable MARIA ESTHER, JUNIOR Attending Unavailable LANIER, DR LENNY Fraga Primary Care Unavailable MARIA ESTHER, JUNIOR Consulting Unavailable SEA, SHANTELL Primary Care Unavailable HAY, DR ROBISON Admitting Unavailable HAY, DR ROBISON Attending Unavailable HAY, DR ROBISON Consulting Unavailable SELENE, DR WARNER Admitting Unavailable SELENE, DR WARNER Attending Unavailable SEA, SHANTELL Primary Care Unavailable SELENE, DR WARNER Consulting Unavailable MARIA ESTHER, JUNIOR Admitting Unavailable MARIA ESTHER, JUNIOR Attending Unavailable SEA, SHANTELL Primary Care Unavailable MARIA ESTHER, JUNIOR Consulting Unavailable THEO, DR PRADO Attending Unavailable SEA, SHANTELL Primary Care Unavailable THEO, DR PRADO Consulting Unavailable THEO, DR PRADO Admitting Unavailable Sea, BRICK POINTER-C Shantell Primary Care Provider MD Patrice Levine Attending Provider MD Gerber Short Attending Provider [phone] Raissa Oh Unavailable Asaad, Imad Unavailable Donya Mccann Unavailable JOLENE Osei-Radha Stinson Primary Care Provider U MD Percy Perera Admit Provider MD Irwin Theodore Attending Provider MD Toby Venegas Other Provider MD Patrice Levine Attending Provider MD Patrice Levine Attending Provider JOLENE Oesi-C Shantell Primary Care Provider U MD Junior Chiu Attending Provider SEA, SHANTELL Primary Care Unavailable Briana Edwards Attending Unavailable SEA, SHANTELL Attending Unavailable SEA, SHANTELL Admitting Unavailable SEA, SHANTELL Primary Care Unavailable SEA, SHANTELL Attending Unavailable SEA, SHANTELL Admitting Unavailable SEA, SHANTELL Primary Care Unavailable SEA, SHANTELL Primary Care Unavailable SEA, SHANTELL Primary Care Unavailable Briana Edwards Attending Unavailable MD Toby Venegas Attending Provider Unavailable Primary Care Provider Unavailsaurabh Nguyen Live Unavailable JOLENE Osei-C Shantell Primary Care Provider U MD Junior Chiu Attending Provider [phone] MD Toby Venegas Attending Provider NO FAMILY, PHYSICIAN Primary Care Provider Unava ilable MD Toby Venegas Other Provider AINSLEY Kowalski Other Provider Unavailable MD Junior Mayo Other Provider MD Baudilio Hoyos Other Provider [phone] MD Ethan Malavehash Other Provider MD Iván Govea Other Provider MD Percy Herrera Admit Provider MD Jersey Sharp Attending Provider KATHE OseiP- Shantell Primary Care Provider MD Junior Mayo Attending Provider Sea, Shantell Primary Care Unavailable Percy Herrera Admitting Unavailable Toby Venegas Consulting Unavailable Irwin Theodore Attending Unavailable Raissa Oh Attending Unavailable Sea, Shantell Primary Care Unavailable Raissa Oh Admitting Unavailable Sea, Shantell Primary Care Unavailable Patrice Levine Attending UnavailPatrice Lozano Admitting Unavailabl e Junior Mayo Admitting Unavailable Sea, Shantell Primary Care Unavailable Maria Esther, Junior Attending Unavailable Maria Esther, Junior Attending Unavailable Sea, Shantell Primary Care Unavailable Maria Esther, Junior Admitting Unavailable Maria Esther, Junior Admitting Unavailable Maria Esther, Junior Attending Unavailable NO FAMILY, PHYSICIAN Primary Care Unavailable Elashi, Essam Admitting Unavailable Elashi, Essam Attending Unavailable Maria Esther, Junior Admitting Unavailable Sea, Shantell Primary Care Unavailable Maria Esther, Junior Attending Unavailable Sea, Shantell Primary Care Unavailable Patrice Levine Admitting Unavailabl e Julianna, Patrice Mcgee Attending Unavailabl e Sea, Shantell Primary Care Unavailable Percy Herrera Admitting Unavailable Jersey Sharp Attending Unavailable Elashi, Essam Consulting Unavailable Isha Kowalski Consulting Unavailable Maria Esther, Junior Consulting Unavailable Singhitzel, Baudilio Consulting Unavailable Malave, Raul Consulting Unavailable Iván Govea Consulting Unavailable José MiguelskkristieeBridgeta Attending Unavailable Semaskiene, Annabella Admitting Unavailable Sea, Shantell Primary Care Unavailable Elashi, Essam Consulting Unavailable Chashan Kamal Consulting Unavailable EDGARDO, SHANTELL Admitting Unavailable MADAN MENCHACA Attending Unavailable PEREZ CORTEZ Referring Unavailable VIJENDRA, RASHMI Attending Unavailable KWABENA MONTAÑO Attending Unavailable JANIE MARTINEZ Referring Unavailable MARTINEZ, JANIE Referring Unavailable VIJENDRA, RASHMI Referring Unavailable KWABENA MONTAÑO Referring Unavailable VIZECHARIAHNDRA, RASHMI Attending Unavailable NATHANIEL DE SOUZA Attending Unavailable KWABENA MONTAÑO Attending Unavailable ABBY MOORE Referring UnavailKWABENA Aly Attending Unavailable JENNA AVILA Attending Unavailable MARTINEZ, JANIE Referring Unavailable KIRK HELMS Referring Unavailable MARTINEZ, JANIE Referring Unavailable JANEY WARREN Referring Unavailable NAZZAL, MUNIER Referring Unavailable LUANNE NIEVES Referring Unavailable NAZZALJENNA Attending Unavailable ALGHOTHANI, MOHAMAD Referring Unavailable ALGHOTHANI, MOHAMAD Referring Unavailable NAZZAL, MUNIER Referring Unavailable ABBY MOORE Referring Unavailsaurabh e JANEY WARREN Attending Unavailable ALGHOTHANI, MOHAMAD Referring Unavailable ALGHOTHANI, MOHJOSEFINAD Attending Unavailable VIJENDRA, RASHMI Attending Unavailable VIJENDRA, RASHMI Referring Unavailable MOUKARBEL, KIRK Attending Unavailable PEREZ CORTEZ Referring Unavailable JANIE MARTINEZ Attending Unavailable KWABENA MONTAÑO Referring Unavailable JANEY WARREN Referring Unavailable JANEY WARREN Referring Unavailable KWABENA MONTAÑO Attending Unavailable NELY CHAVEZ Referring Unavailable JENNA AVILA Attending Unavailable JENNA AVILA Admitting Unavailable Unavailable Unavailable Unavailable Allergies Allergy Classification Reported Allergen(s) Allergy Type Date of Onset Reaction(s) Facility (20 sources) Contrast Allergy PreMed Pack Drug allergy Unknown [facility] Other (3 sources) Iodinated Contrast Media; Translations: [IODINATED CONTRAST MEDIA] Drug allergy (disorder) 0 [facility] Repository (1 source) No Known Medication Allergies; Translations: [No Known Medication Allergies] Propensity to adverse reactions (disorder) [facility] Repository (1 source) Iodinated Contrast Media Drug allergy (disorder) 4 [facility] Repository (1 source) Sulfonamides (Antibiotic); Translations: [SULFA (SULFONAMIDE ANTIBIOTICS)] Propensity to adverse reactions to drug (disorder) 6 [facility] Repository Medications Current Medications Medication Drug Class(es) Dates Sig (Normalized) Sig (Original) amLODIPine 5 mg oral tablet (20 sources) Dihydropyridine Calcium Channel Yulissa Start: 01-09-2024 take 5 mg by mouth once daily Amlodipine Active 5 MG PO Daily January 09, 2024 12:00am Start: 12-05-2021 End: 03-01-2023 take 1 tablet by mouth once daily Amlodipine (Norvasc) 10 mg tablet Discontinued 10 MG PO Daily December 05, 2021 1:00am March 01, 2023 12:20pm TAKE 1 TABLET BY MOUTH EVERY DAY FOR 90 DAYS amLODIPine Besyl ate 10 MG Oral Tablet Quantity: 0 Refills: 0 Ordered: 13-Jul-2021 DO Active amoxicillin 875 mg / clavulanate 125 mg oral tablet (5 sources) Penicillin-class Antibacterial Start: 11-16-2022 take 1 tablet by mouth every twelve hours Amoxicillin-Pot Clavulanate 875-125 MG 1 tablet Orally every 12 hrs for 10 day(s) Nov, Active atorvastatin 40 mg oral tablet (20 sources) HMG-CoA Reductase Inhibitor Start: 12-05-2021 take 1 tablet by mouth once daily Atorvastatin (Lipitor) 40 mg tablet Active 40 MG PO Daily December 05, 2021 1:00am TAKE 1 TABLET BY MOUTH EVERY DAY FOR 90 DAYS B Complex-Vitamin C-Folic Acid (Nephro-Vianca) 0.8 mg tablet (15 sources) Start: 03-01-2023 take 1 tablet by mouth once daily B Complex-Vitamin C-Folic Acid (Nephro-Vianca) 0.8 mg tablet Active 1 TAB PO Daily February 28, 2023 11:00pm Start: 03-01-2023 take 1 tablet by bobbi th once daily B Complex-Vitamin C-Folic Acid (Nephro-Vianca) 0.8 mg tablet Active 1 TAB PO Daily March 01, 2023 12:00am Start: 08-24-2022 End: 03-01-2023 take 1 tablet by mouth once daily B Complex-Vitamin C-Folic Acid (Nephro-Vianca) 0.8 mg tablet Discontinued 1 TAB PO Daily August 24, 2022 12:00am March 01, 2023 11:20am Start: 08-24-2022 End: 03-01-2023 take 1 tablet by mouth once daily B Complex-Vitamin C-Folic Acid (Nephro-Vianca) 0.8 mg tablet Discontinued 1 TAB PO Daily August 24, 2022 1:00am March 01, 2023 12:20pm Start: 08-24-2022 take 1 tablet by bobbi th once daily B Complex-Vitamin C-Folic Acid (Nephro-Vianca) 0.8 mg tablet Active 1 TAB PO Daily August 24, 2022 12:00am carvedilol 25 mg oral tablet (20 sources) alpha-Adrenergic Yulissa, beta-Adrenergic Yulissa Start: 12-05-2021 End: 01-14-2024 take 1 tablet by mouth twice daily Carvedilol (Coreg) 25 mg tablet Active 25 MG PO Twice daily January 14, 2024 11:20am TAKE 1 TABLET BY MOUTH TWICE A DAY Start: 07-21-2021 take 1 tablet by bobbi th every twelve hours Carvedilol 6.25 MG 1 tablet with food Orally Twice a day for 30 day(s) Jul, Active take 1 tablet by bobbi th every twelve hours Carvedilol 12.5 MG 1 tab(s) orally bid for 90 day(s) Active clobetasol propionate 0.0005 mg/mg topical ointment (1 source) Corticosteroid Start: 11-14-2023 Clobetasol Propionate 0.05 % 1 application Externally Twice a day for 14 days Oct, Active cyclobenzaprine hydrochloride 10 mg oral tablet (6 sources) Muscle Relaxant Start: 06-07-2022 take 1 tablet by mouth three times daily as needed for muscle spasms Cyclobenzaprine HCl 10 MG 1 tab(s) Orally 3 times a day prn muscle spasms May, Active Start: 02-18-2020 take 0.5-1 tablets b y mouth once daily as needed Cyclobenzaprine HCl - 10 MG Oral Tablet 1/2 to 1 tab nightly PRN Quantity: 20 Refills: 1 Ordered: 18-Feb-2020 Ace Marr DO Start : 18-Feb-2020 Active furosemide 40 mg oral tablet (20 sources) Loop Diuretic Start: 01-09-2024 take 40 mg by mouth twice daily Furosemide Active 40 MG PO BID@0800,1600 180 January 09, 2024 12:00am Start: 12-15-2021 End: 02-20-2022 take 40 mg by mouth once daily Furosemide Discontinued 40 MG PO Daily December 31, 2021 12:00am February 20, 2022 12:34pm Start: 12-05-2021 End: 12-07-2021 Furosemide (Lasix) 40 mg tab let Discontinued 40 MG PO Daily December 05, 2021 1:00am December 07, 2021 12:45pm TAKE 1 TABLET BY MOUTH DAILY FOR 7 DAYS THEN STOP Start: 07-06-2021 take 1 tablet by bobbi th every other day take 1 tablet by bobbi th twice daily Lasix 40 MG 1 tablet Orally twice daily for 30 day(s) Active gabapentin 300 mg oral capsule (20 sources) Anti-epileptic Agent Start: 05-22-2023 take 300 mg by mouth twice daily Gabapentin Active 300 MG PO Twice daily May 22, 2023 12:00am Start: 03-03-2023 End: 05-22-2023 take 1 capsule by mouth three times weekly Gabapentin (Neurontin) 300 mg capsule Discontinued 300 MG PO Every 48 hours March 03, 2023 10:54am May 22, 2023 2:15pm Take 300 mg after dialysis only up to 3 times per week Start: 07-26-2020 End: 03-03-2023 take 1 capsule by mouth once daily as needed Gabapentin (Neurontin) 300 mg capsule Discontinued 300 MG PO Twice daily December 05, 2021 1:00am March 03, 2023 10:54am TAKE 1 CAPSULE BY MOUTH EVERY DAY NEEDED ONLY Gabapentin 400 M G TABS Take 1 tablet twice daily Quantity: 0 Refills: 0 Ordered: 13-Jul-2021 DO Active hydrALAZINE hydrochloride 100 mg oral tablet (20 sources) Arteriolar Vasodilator Start: 08-24-2022 take 100 mg by mouth twice daily Hydralazine Active 100 MG PO Twice daily August 24, 2022 1:00am Start: 08-24-2022 take 100 mg by mouth three times daily Hydralazine Active 100 MG PO Three times daily August 24, 2022 12:00am Start: 12-07-2021 End: 07-11-2022 take 100 mg by mouth three times daily Hydralazine Discontinued 100 MG PO Three times daily December 07, 2021 1:00am July 11, 2022 6:29am Start: 12-05-2021 End: 12-07-2021 take 1 tablet by mouth three times daily Hydralazine Discontinued 50 MG PO Three times daily December 05, 2021 1:00am December 07, 2021 12:45pm TAKE 1 TABLET BY MOUTH THREE TIMES A DAY take 2 tablets by mo [facility] every eight hours hydrALAZINE HCl 25 MG 2 tablets with food Orally Three times a day Active take 1 tablet by bobbi every eight hours hydrALAZINE HCl 25 MG 1 tablet with food Orally Three times a day Active levothyroxine sodium 0.112 mg oral tablet (20 sources) l-Thyroxine Start: 05-22-2023 End: 01-14-2024 take 100 ug by mouth once daily Levothyroxine Active 100 MCG PO Daily January 14, 2024 11:20am Start: 05-22-2023 take 112 ug by mouth once jenyn y Levothyroxine Active 112 MCG PO Daily May 21, 2023 11:00pm Start: 06-04-2019 End: 05-22-2023 take 1 tablet by mouth once daily in the morning Levothyroxine (Synthroid) 100 mcg tablet Discontinued 112 MCG PO Every morning December 05, 2021 1:00am May 22, 2023 9:47am TAKE 1 TABLET BY MOUTH EVERY MORNING ON AN EMPTY STOMACH take 1 tablet by bobbi th once daily in the morning Levothyroxine Sodium 100 MCG TAKE 1 TABLET BY MOUTH EVERY MORNING ON AN EMPTY STOMACH orally qd for 90 days Active lisinopril 10 mg oral tablet (20 sources) Angiotensin Converting Enzyme Inhibitor Start: 01-09-2024 End: 01-14-2024 take 10 mg by mouth once daily Lisinopril Active 10 MG PO Daily January 14, 2024 11:23am Start: 08-24-2022 End: 01-09-2024 take 20 mg by mouth twice daily Lisinopril Discontinue d 20 MG PO Twice daily August 24, 2022 1:00am January 09, 2024 10:20am Start: 08-24-2022 take 20 mg by mouth once daily Lisinopril Active 20 MG PO Daily August 24, 2022 12:00am Start: 12-05-2021 End: 12-30-2021 take 1 tablet by mouth once daily Lisinopril (Zestril) 20 mg tablet Discontinued 20 MG PO Daily December 05, 2021 1:00am December 30, 2021 10:20am TAKE 1 TABLET BY MOUTH EVERY DAY FOR 90 DAYS take 1 tablet by bobbi th once daily Lisinopril 10 MG Oral Tablet TAKE 1 TABLET DAILY DIRECTED. Quantity: 0 Refills: 0 Ordered: 13-Jul-2021 DO Active methylPREDNISolone 4 mg oral tablet (2 sources) Corticosteroid Start: 05-15-2023 methylPREDNISolone 4 MG take half with breakfast, half with dinner Orally as directed for 6 May, Active minoxidil 10 mg oral tablet (20 sources) Arteriolar Vasodilator Start: 05-22-2023 End: 01-14-2024 take 10 mg by mouth twice daily Minoxidil Active 10 MG PO Twice daily January 14, 2024 11:20am Start: 07-11-2022 End: 05-22-2023 take 10 mg by mouth twice daily Minoxidil Discontinued 10 MG PO Twice daily July 11, 2022 12:00am May 22, 2023 9:49am Start: 07-11-2022 take 2.5 mg by mouth once daily Minoxidil Active 2.5 MG PO Daily July 10, 2022 11:00pm Nephro-Vianca 0.8 MG (10 sources) take 1 tablet by bobbi th once daily Nephro-Vianca 0.8 MG TAKE 1 TABLET BY MOUTH EVERY DAY for 90 Active take 1 tablet by mouth once jenny y Nephro-Vianca 0.8 MG TAKE 1 TABLET BY MOUTH EVERY DAY for 30 Active polyethylene glycol 3350 146307 mg / potassium chloride 2970 mg / sodium bicarbonate 6740 mg / sodium chloride 5860 mg / sodium sulfate 68731 mg powder for oral solution (1 source) Osmotic Laxative Start: 01-08-2023 take 236 g by mouth once Golytely 236 GM as directed Orally THE DAY BEFORE COLONOSCOPY for 1 days Dec, Active predniSONE 20 mg oral tablet (4 sources) Start: 06-07-2022 take 1 tablet by mouth every twelve hours predniSONE 20 MG 1 tablet Orally 2 times a day for 5 day(s) May, Active sennosides, skilled nursing 8.6 mg oral tablet (20 sources) Start: 12-15-2021 take 2 tablets by mouth every twenty-four hours Senna 8.6 MG 2 tablets at bedtime as needed Orally Once a day for 90 day(s) Dec, Active sevelamer carbonate 800 mg oral tablet (12 sources) Phosphate Binder Start: 07-11-2022 take 2 tablets by mouth three times daily at mealtime Sevelamer Carbonate (Renvela) 800 mg tablet Active 1600 MG PO THREE TIMES DAILY WITH MEALS July 11, 2022 12:00am sodium zirconium cyclosilicate 12522 mg powder for oral suspension (11 sources) Start: 12-23-2021 take 1 dose by mouth once daily Lokelma 10 GM 1 packet dissolved in water Orally Once a day for 90 day(s) Dec, Active traMADol hydrochloride 50 mg oral tablet (3 sources) Opioid Agonist Start: 06-13-2022 take 1 tablet by mouth every twelve hours traMADol HCl 50 MG 1 tablet as needed Orally bid for 10 day(s) May, Active traZODone hydrochloride 50 mg oral tablet (20 sources) Serotonin Reuptake Inhibitor Start: 02-23-2022 traZODone HCl 50 MG 0.5 tablet at bedtime as needed to start may increase in the next few weeks Orally Once a day for 30 day(s) February, Active triamcinolone acetonide 0.001 mg/mg topical ointment (20 sources) Corticosteroid Start: 05-15-2023 Triamcinolone Acetonide 0.1 % 1 application Externally TID for 10 days May, Active Start: 04-03-2020 Kenalog -40 mg 20 Mar, 2020 40 mg Tylenol Extra Strength 500 MG (20 sources) take 1 tablet by bobbi th every six hours as needed Tylenol Extra Strength 500 MG 1 tablet as needed Orally every 6 hrs Active Completed/Discontinued Medications Medication Drug Class(es) Dates Sig (Normalized) Sig (Original) acetaminophen 500 mg oral tablet (20 sources) take 2 tablets by mouth once daily in the morning as needed Acetaminophen 500 MG 2 tablet as needed Orally QAM Not-Taking acetaminophen 325 mg / oxyCODONE hydrochloride 5 mg oral tablet (8 sources) Opioid Agonist Start: 08-24-2022 End: 03-01-2023 take 1 tablet by mouth every eight hours Oxycodone-Acetamino phen (Percocet) 5-325 mg tablet Discontinued 1 TAB PO Q8H 03 05August 24, 2022 March 01, 2023 12:20pm aspirin 81 mg oral tablet (20 sources) Platelet Aggregation Inhibitor, Nonsteroidal Anti-inflammatory Drug take 1 tablet by mouth once daily Aspirin 81 81 MG 1 tablet Orally Once a day Not-Taking Aspirin 81 MG TA BS Quantity: 0 Refills: 0 Ordered: 13-Jul-2021 DO Active atenolol 100 mg oral tablet (6 sources) beta-Adrenergic Yulissa Atenolol 100 MG Oral Tablet Quantity: 0 Refills: 0 Ordered: 13-Jul-2021 DO Active take 1 tablet by bobbi th every twenty-four hours Atenolol 100 MG 1 tablet Orally Once a day Not-Taking bisoprolol fumarate 10 mg oral tablet (6 sources) beta-Adrenergic Yulissa Start: 03-25-2019 take 1 tablet by mouth once daily Bisoprolol Fumarate 10 MG Oral Tablet Take 1 tablet daily Quantity: 90 Refills: 0 Ordered: 09-Feb-2020 Ace Marr DO Start : 25-Mar-2019 Active 168 hr cloNIDine 0.82735 mg/hr transdermal system (20 sources) Central alpha-2 Adrenergic Agonist Start: 07-11-2022 End: 03-01-2023 Clonidine Discontinued 0.2 MG TRANSDERML every week July 11, 2022 12:00am March 01, 2023 12:20pm Start: 12-05-2021 End: 07-11-2022 take 1 tablet by mouth three times daily Clonidine Hcl Discontinued 0.3 MG PO Three times daily December 05, 2021 1:00am July 11, 2022 6:25am TAKE 1 TABLET BY MOUTH THREE TIMES A DAY apply 1 dose transde rmal route every week cloNIDine 0.3 MG/24HR 1 patch to skin Transdermal once a week for 30 day(s) Active cloNIDine 0.3 MG /24HR 1 patch to skin Transdermal Active take 1 tablet by bobbi three times daily cloNIDine HCl - 0.1 MG Oral Tablet TAKE 1 TABLET 3 TIMES DAILY. Quantity: 0 Refills: 0 Ordered: 13-Jul-2021 DO Active take 3 tablets by mo [facility] every eight hours cloNIDine HCl 0.1 MG 3 tablet Orally tid for 90 day(s) Active take 3 tablets by mo [facility] every twelve hours cloNIDine HCl 0.1 MG 3 tablet Orally BID for 90 day(s) Active clopidogrel 75 mg oral tablet (20 sources) [id number] Platelet Inhibitor Start: 12-05-2021 End: 08-24-2022 take 1 tablet by mouth once daily Clopidogrel (Plavix) 75 mg tablet Discontinued 75 MG PO Daily December 05, 2021 1:00am August 24, 2022 7:36am TAKE 1 TABLET BY MOUTH EVERY DAY FOR 90 DAYS diclofenac sodium 75 mg delayed release oral tablet (2 sources) Nonsteroidal Anti-inflammatory Drug Start: 03-17-2020 take 1 tablet by mouth twice daily Diclofenac Sodium 75 MG Oral Tablet Delayed Release Take 1 tablet twice daily Quantity: 60 Refills: 5 Ordered: 17-Mar-2020 Ace Marr DO Start : 17-Mar-2020 Active diphenhydrAMINE hydrochloride 50 mg oral capsule (7 sources) Histamine-1 Receptor Antagonist Start: 03-01-2023 End: 05-22-2023 take 50 mg by mouth once daily at bedtime Diphenhydramine Hcl Discontinued 50 MG PO Daily at bedtime March 01, 2023 12:00am May 22, 2023 9:51am doxycycline hyclate 100 mg oral capsule (7 sources) Tetracycline-clas s Drug Start: 05-22-2023 End: 06-11-2023 take 100 mg by mouth twice daily Doxycycline Hyclate Discontinued 100 MG PO Twice daily 10 5 May 22, 2023 12:00am June 11, 2023 12:21pm start 05/23/23 am ferrous sulfate 325 mg oral tablet (20 sources) Start: 12-05-2021 End: 12-05-2021 take 1 tablet by mouth every other day Ferrous Sulfate (Iron) 325 mg (65 mg iron) tablet Discontinued 325 MG PO Q48H December 05, 2021 1:00am December 05, 2021 7:41pm TAKE 1 TABLET BY MOUTH EVERY OTHER DAY take 1 tablet by mouth every oth er day Ferrous Sulfate 325 (65 Fe) MG TAKE 1 TABLET BY MOUTH EVERY OTHER DAY for 90 Active take 1 tablet by mouth every oth er day Ferrous Sulfate 325 (65 Fe) MG 1 tablet Orally every other day for 90 day(s) Not-Taking take 1 tablet by mouth every oth er day Ferrous Sulfate 325 (65 Fe) MG 1 tablet Orally every other day for 90 day(s) Active Ketorolac (20 sources) Nonsteroidal Anti-inflammatory Drug, Cyclooxygenase Inhibitor Start: 04-03-2020 Toradol per 15 mg Mar, 30 mg sertraline 25 mg oral tablet (20 sources) Serotonin Reuptake Inhibitor Start: 09-15-2021 End: 12-30-2021 take 1 tablet by mouth once daily Sertraline (Zoloft) 25 mg tablet Discontinued 25 MG PO Daily December 05, 2021 1:00am December 30, 2021 10:20am TAKE 1 TABLET BY MOUTH EVERY DAY Problems Active Problems Problem Classification Problem Date Documented Date Episodic/Chronic Acute and unspecified renal failure (10 sources) Uremia; Translations: [Unspecified kidney failure] 12-30-2021 Chronic Acute cerebrovascular disease (20 sources) Cerebrovascular accident; Translations: [Cerebral artery occlusion, unspecified with cerebral infarction] Onset: 1 Resolved: 1 Chronic Acute myocardial infarction (2 sources) Other myocardial infarction type; Translations: [Other myocardial infarction type] Onset: 4 Chronic Allergic reactions (1 source) Dermatitis, unspecified Episodic Aortic and peripheral arterial embolism or thrombosis (2 sources) Other arterial embolism and thrombosis of abdominal aorta; Translations: [Other arterial embolism and thrombosis of abdominal aorta] Onset: 3 Chronic Calculus of urinary tract (20 sources) Kidney stone; Translations: [Calculus of kidney] Onset: 1 Resolved: 2 Episodic Chronic kidney disease (20 sources) Chronic kidney disease stage 3; Translations: [Chronic kidney disease, stage 3 (moderate)] Onset: 1 Resolved: 2 Chronic Chronic kidney disease (20 sources) Chronic kidney disease; Translations: [Chronic kidney disease, stage III (moderate)] Onset: 1 Resolved: 2 Chronic obstructive pulmonary disease and bronchiectasis (16 sources) Acute exacerbation of chronic obstructive airways disease; Translations: [Chronic obstructive pulmonary disease with (acute) exacerbation] Onset: 3 03-01-2023 Chronic Coagulation and hemorrhagic disorders (2 sources) Spontaneous ecchymoses; Translations: [Spontaneous ecchymoses] Onset: 4 Episodic Congestive heart failure; nonhypertensive (2 sources) Heart failure, unspecified; Translations: [Heart failure, unspecified] Onset: 4 Chronic Coronary atherosclerosis and other heart disease (4 sources) Atherosclerotic heart disease of [place] coronary artery without angina pectoris; Translations: [Atherosclerotic heart disease of [place] coronary artery with unspecified angina pectoris] Onset: 4 Chronic Deficiency and other anemia (20 sources) Anemia of renal disease; Translations: [Anemia in chronic kidney disease] 12-30-2021 Chronic Deficiency and other anemia (11 sources) Anemia in chronic kidney disease; Translations: [Anemia of renal disease D63.1] Onset: 1 Resolved: 2 Chronic Diseases of white blood cells (5 sources) Leukocytosis; Translations: [Elevated white blood cell count, unspecified] Onset: 4 01-08-2024 Chronic Disorders of lipid metabolism (20 sources) Hypercholesterolemia; Translations: [Pure hypercholesterolemia, unspecified] Onset: 3 12-05-2021 Chronic Essential hypertension (20 sources) Hypertensive disorder; Translations: [Essential hypertension] Onset: 1 Resolved: 2 Chronic Fluid and electrolyte disorders (20 sources) Hyponatremia; Translations: [Hypo-osmolality and hyponatremia] Onset: 2 02-18-2022 Episodic Hypertension with complications and secondary hypertension (20 sources) Chronic kidney disease due to hypertension; Translations: [Hypertensive chronic kidney disease with stage 1 through stage 4 chronic kidney disease, or unspecified chronic kidney disease] Onset: 1 Resolved: 2 Chronic Late effects of cerebrovascular disease (4 sources) Unspecified sequelae of cerebral infarction; Translations: [UNS SEQUELAE CEREBRAL INFARCTION] Onset: 2 Chronic Lymphadenitis (4 sources) Localized enlarged lymph nodes; Translations: [Generalized enlarged lymph nodes] Onset: 4 Episodic Miscellaneous mental health disorders (20 sources) Primary insomnia; Translations: [Primary insomnia] Onset: 2 Resolved: 2 Chronic Nutritional deficiencies (20 sources) Vitamin D deficiency; Translations: [Vitamin D deficiency, unspecified] Onset: 1 Resolved: 2 Chronic Occlusion or stenosis of precerebral arteries (20 sources) Left carotid artery stenosis; Translations: [Occlusion and stenosis of left carotid artery] Onset: 2 Resolved: 2 Chronic Osteoarthritis (6 sources) Arthritis; Translations: [Arthropathy, unspecified, site unspecified] Chronic Other aftercare (1 source) Other [facility] (current) drug therapy; Translations: [OTH PRISON CURRENT DRUG THERAPY] Onset: 2 Episodic Other bone disease and musculoskeletal deformities (6 sources) Segmental and somatic dysfunction; Translations: [Nonallopathic lesions, thoracic region] Episodic Other circulatory disease (20 sources) Acquired arteriovenous fistula aneurysm; Translations: [Arteriovenous fistula, acquired] Chronic Other circulatory disease (2 sources) Disorder of arteries and arterioles, unspecified; Translations: [Disorder of arteries and arterioles, unspecified] Onset: 4 Chronic Other circulatory disease (2 sources) Presence of other vascular implants and grafts; Translations: [Presence of other vascular implants and grafts] Onset: 4 Chronic Other circulatory disease (2 sources) Other disorders of arteries, arterioles and capillaries in diseases classified elsewhere; Translations: [Other disorders of arteries, arterioles and capillaries in diseases classified elsewhere] Onset: 3 Chronic Other connective tissue disease (6 sources) Bursitis of shoulder; Translations: [Disorders of bursae and tendons in shoulder region, unspecified] Episodic Other connective tissue disease (6 sources) Other bursitis of hip, left hip; Translations: [Bursitis of left hip] Episodic Other diseases of kidney and ureters (10 sources) Secondary hyperparathyroidism; Translations: [Secondary hyperparathyroidism of renal origin] 12-30-2021 Chronic Other diseases of kidney and ureters (3 sources) Secondary hyperparathyroidism of renal origin; Translations: [Secondary hyperparathyroidism (of renal origin)] Onset: 3 05-22-2023 Chronic Other endocrine disorders (20 sources) Hyperparathyroidism; Translations: [Hyperparathyroidism, unspecified] Chronic Other endocrine disorders (7 sources) Hyperparathyroidism, unspecified; Translations: [Hyperparathyroidism E21.3] Onset: 1 Resolved: 2 Chronic Other eye disorders (20 sources) Vitreous floaters; Translations: [Other vitreous opacities, bilateral] Chronic Other gastrointestinal disorders (4 sources) Constipation, unspecified; Translations: [CONSTIPATION UNSPECIFIED] Onset: 2 Episodic Other lower respiratory disease (7 sources) Acute pulmonary edema; Translations: [Acute pulmonary edema] 03-01-2023 Episodic Other lower respiratory disease (4 sources) Acute pulmonary edema; Translations: [Acute edema of lung, unspecified] Onset: 4 01-09-2024 Episodic Other nutritional; endocrine; and metabolic disorders (20 sources) Body mass index 30+ - obesity; Translations: [Body mass index (BMI) 31.0-31.9, adult] Chronic Other skin disorders (1 source) Sebaceous cyst Episodic Other skin disorders (1 source) Dyshidrosis [pompholyx] Episodic Peripheral and visceral atherosclerosis (4 sources) Peripheral vascular disease, unspecified; Translations: [Atherosclerosis of aorta] Onset: 3 Chronic Residual codes; unclassified (20 sources) Obstructive sleep apnea syndrome; Translations: [Idiopathic sleep related nonobstructive alveolar hypoventilation] Chronic Residual codes; unclassified (6 sources) Obstructive sleep apnea (adult) (pediatric); Translations: [OBSTRUCTIVE SLEEP APNEA] Onset: 2 Chronic Residual codes; unclassified (6 sources) Generalized aches and pains; Translations: [Generalized pain] Episodic Residual codes; unclassified (20 sources) Insomnia; Translations: [Insomnia, unspecified] Episodic Residual codes; unclassified (7 sources) Tobacco user; Translations: [Tobacco use] 03-01-2023 Episodic Respiratory failure; insufficiency; arrest (adult) (20 sources) Acute and chronic respiratory failure with hypercapnia; Translations: [Acute on chronic hypoxemic and hypercapnic respiratory failure] Onset: 3 03-01-2023 Chronic Respiratory failure; insufficiency; arrest (adult) (1 source) Respiratory failure; insufficiency; arrest (adult); Translations: [Acute and chronic respiratory failure with hypoxia] Onset: 3 Secondary malignancies (2 sources) 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; Translations: [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] Onset: 4 Chronic Spondylosis; intervertebral disc disorders; other back problems (20 sources) Degeneration of cervical intervertebral disc; Translations: [Other cervical disc degeneration, unspecified cervical region] Onset: 1 Resolved: 2 Chronic Spondylosis; intervertebral disc disorders; other back problems (2 sources) Sciatica, left side; Translations: [Sciatica, unspecified side] Onset: 2 Resolved: 2 Episodic Substance-related disorders (1 source) Nicotine dependence, cigarettes, uncomplicated; Translations: [NICOTINE DEPEND CIGARETTES UNCOMP] Onset: 2 Chronic Thyroid disorders (20 sources) Cuong thyroiditis; Translations: [Chronic lymphocytic thyroiditis] Onset: 1 Resolved: 1 Chronic Unclassified (4 sources) CHRN KIDNEY DISEASE STG 3 UNSP; Translations: [CHRN KIDNEY DISEASE STG 3 UNSP] Onset: 2 Unclassified (1 source) Other specified complication of vascular prosthetic devices, implants and grafts, initial encounter; Translations: [Other specified complication of vascular prosthetic devices, implants and grafts, initial encounter] Onset: 3 Unclassified (1 source) Occlusion and stenosis of bilateral carotid arteries; Translations: [Occlusion and stenosis of bilateral carotid arteries] Onset: 3 Unclassified (1 source) Resistant hypertension; Translations: [Resistant hypertension] Onset: 4 Unclassified (1 source) Other pericardial effusion (noninflammatory); Translations: [Other pericardial effusion (noninflammatory)] Onset: Viral infection (2 sources) Plantar wart of left foot; Translations: [Plantar wart] Episodic Past or Other Problems Problem Classification Problem Date Documented Da te Episodic/Chronic Abdominal pain (2 sources) Generalized abdominal pain; Translations: [Generalized abdominal pain] Onset: 07-04-2023 Episodic Acute and unspecified renal failure (1 source) Acute kidney failure, unspecified; Translations: [ACUTE KIDNEY FAILURE UNSPECIFIED] Onset: 12-14-2021 Episodic Cardiac dysrhythmias (2 sources) Palpitations; Translations: [Palpitations] Onset: 09-26-2022 Episodic Conditions associated with dizziness or vertigo (1 source) Dizziness and giddiness; Translations: [DIZZINESS AND GIDDINESS] Onset: 09-13-2021 Episodic Genitourinary symptoms and ill-defined conditions (3 sources) Retention of urine, unspecified; Translations: [RETENTION OF URINE UNSPECIFIED] Onset: 02-18-2022 Episodic Nutritional deficiencies (2 sources) Deficiency of other specified B group vitamins; Translations: [Deficiency of other specified B group vitamins] Onset: 12-19-2023 Episodic Other circulatory disease (1 source) Hypotension, unspecified Onset: 06-07-2022 Resolved: 06-07-2022 Episodic Other circulatory disease (2 sources) Personal history of other diseases of the circulatory system; Translations: [Personal history of other diseases of the circulatory system] Onset: 06-24-2023 Episodic Other circulatory disease (2 sources) Personal history of transient ischemic attack (TIA), and cerebral infarction without residual deficits; Translations: [Personal history of transient ischemic attack (TIA), and cerebral infarction without residual deficits] Onset: 11-30-2023 Episodic Other gastrointestinal disorders (2 sources) Drug induced constipation; Translations: [Drug induced constipation] Onset: 07-04-2023 Episodic Other nutritional; endocrine; and metabolic disorders (2 sources) Personal history of other endocrine, nutritional and metabolic disease; Translations: [Personal history of other endocrine, nutritional and metabolic disease] Onset: 06-20-2023 Episodic Other screening for suspected conditions (not mental disorders or infectious disease) (19 sources) Patient encounter status; Translations: [Screening for lipoid disorders] Onset: 12-13-2023 Episodic Other skin disorders (1 source) Localized swelling, mass and lump, neck Onset: 03-09-2022 Resolved: 03-09-2022 Episodic Residual codes; unclassified (2 sources) Localized edema Onset: 11-26-2021 Resolved: 02-07-2022 Episodic Residual codes; unclassified (4 sources) Procedure and treatment not carried out due to patient leaving prior to being seen by health care provider; Translations: [PROC AND TX NOT CARRIED OUT PT LEAVE] Onset: 11-25-2021 Episodic Residual codes; unclassified (1 source) Tobacco use; Translations: [Tobacco use] Onset: 03-01-2023 Episodic Residual codes; unclassified (2 sources) Generalized edema; Translations: [Generalized edema] Onset: 07-20-2023 Episodic Skin and subcutaneous tissue infections (10 sources) Cellulitis; Translations: [Cellulitis, unspecified] Onset: 05-22-2023 05-22-2023 Episodic Sprains and strains (7 sources) Strain of trapezius muscle; Translations: [Sprains and strains of other specified sites of shoulder and upper arm] Onset: 06-07-2022 Resolved: 06-07-2022 Episodic Syncope (2 sources) Syncope and collapse; Translations: [Syncope and collapse] Onset: 12-19-2023 Episodic Unclassified (2 sources) Patient encounter status; Translations: [Screening cholesterol level] Unclassified (1 source) CHRN KIDNEY DISEASE STG 3 UNSP; Translations: [CHRN KIDNEY DISEASE STG 3 UNSP] Onset: 12-22-2021 Unclassified (1 source) Resistant hypertension; Translations: [Resistant hypertension] Onset: 12-14-2023 Unclassified (1 source) Other pericardial effusion (noninflammatory); Translations: [Other pericardial effusion (noninflammatory)] Onset: 11-30-2023 NEGATED: Highlighted row has not occurred!Residual codes; unclassified (5 sources) Disease Episodic Results Test Name Value Interpretation Reference Range Facility 36on 05-19-2024 36 Error Normal [facility] Erroneous Telephone Encounte stefano 05-19-2024 Erroneous Telephone Encounter Normal [facility] Basic Metabolic Profon 04-27 Anion gap [Moles/Vol] 16 mmol/L Normal 9-16 [facility] Comment on above: Performed By: #### C DP, BMP, TROPI #### [facility] [place] [address] Bathhouse Keeper: Samuel Bui MD Calcium [Mass/Vol] 9.4 mg/dL Normal 8.6-10.4 [facility] Comment on above: Performed By: #### C DP, BMP, TROPI #### [facility] [address] [place] [address] Bathhouse Keeper: Samuel Bui MD Chloride [Moles/Vol] 96 mmol/L Low 98-107 [facility] Comment on above: Performed By: #### C DP, BMP, TROPI #### [facility] [address] [place] [address] Bathhouse Keeper: Samuel Bui MD CO2 [Moles/Vol] 25 mmol/L Normal 20-31 [facility] Comment on above: Performed By: #### C DP, BMP, TROPI #### [facility] [address] [place] [address] Bathhouse Keeper: Samuel Bui MD Creatinine [Mass/Vol] 7.2 mg/dL Critically high 0.70-1.20 [facility] Comment on above: Result Comment: Prev ious Alert Value Reported Performed By: #### C DP, BMP, TROPI #### [address] [address] Bathhouse Keeper: Samuel Bui MD GFR/1.73 sq M.predicted among non-blacks MDRD (S/P/Bld) [Vol rate/Area] 8 mL/min/{1.73_m2} Low >60 [facility] Comment on above: Result Comment: These results are not intended for use in patients <18 years of age. eGFR results are calculated without a race factor using the 2020 CKD-EPI equation. Careful clinical correlation is recommended, particularly when comparing to results calculated using previous equations. The CKD-EPI equation is less accurate in patients with extremes of muscle mass, extra-renal metabolism of creatine, excessive creatine ingestion, or following therapy that affects renal tubular secretion. Performed By: #### C DP, BMP, TROPI #### [facility] [address] [place] [address] Bathhouse Keeper: Samuel Bui MD Glucose [Mass/Vol] 98 mg/dL Normal 74-99 [facility] Comment on above: Performed By: #### C DP, BMP, TROPI #### [facility] [address] [place] [address] Bathhouse Keeper: Samuel Bui MD Potassium [Moles/Vol] 4.7 mmol/L Normal 3.7-5.3 [facility] Comment on above: Performed By: #### C DP, BMP, TROPI #### [address] [address] Bathhouse Keeper: Samuel Bui MD Sodium [Moles/Vol] 137 mmol/L Normal 136-145 [facility] Comment on above: Performed By: #### C DP, BMP, TROPI #### [facility] [address] [place] [address] Bathhouse Keeper: Samuel Bui MD Urea nitrogen [Mass/Vol] 32 mg/dL High 6-20 [facility] Comment on above: Performed By: #### C DP, BMP, TROPI #### [address] [address] Bathhouse Keeper: Samuel Bui MD CBC with Diffon 04-27-2024 Abs. Basophil <0.03 Normal 0.00-0.20 [facility] Comment on above: Performed By: #### C DP, BMP, TROPI #### [facility] [address] [place] [address] Bathhouse Keeper: Samuel Bui MD Abs.Imm.Granulocyte 0.03 k/uL Normal 0.00-0.30 [facility] Comment on above: Performed By: #### C DP, BMP, TROPI #### [address] [address] Bathhouse Keeper: Samuel Bui MD Abs.Neutrophil (Seg) 7.94 k/uL Normal 1.50-8.10 [facility] Comment on above: Performed By: #### C DP, BMP, TROPI #### [address] [address] Bathhouse Keeper: Samuel Bui MD Basophils/100 WBC (Bld) 0 % Normal 0-2 [facility] Comment on above: Performed By: #### C DP, BMP, TROPI #### [place] [address] Bathhouse Keeper: Samuel Bui MD Eosinophils (Bld) [#/Vol] 0.05 10*3/uL Normal 0.00-0.44 [facility] Comment on above: Performed By: #### C DP, BMP, TROPI #### [place] [address] Bathhouse Keeper: Samuel Bui MD Eosinophils/100 WBC (Bld) 1 % Normal 1-4 [facility] Comment on above: Performed By: #### C DP, BMP, TROPI #### [address] [address] Bathhouse Keeper: Samuel Bui MD Erythrocyte distribution width (RBC) [Ratio] 13.3 % Normal 11.8-14.4 [facility] Comment on above: Performed By: #### C DP, BMP, TROPI #### [place] [address] Bathhouse Keeper: Samuel Bui MD Hematocrit (Bld) [Volume fraction] 27.8 % Low 40.7-50.3 [facility] Comment on above: Performed By: #### C DP, BMP, TROPI #### [address] [address] Bathhouse Keeper: Samuel Bui MD Hemoglobin (Bld) [Mass/Vol] 8.8 g/dL Low 13.0-17.0 [facility] Comment on above: Performed By: #### C DP, BMP, TROPI #### [address] [address] Bathhouse Keeper: Samuel Bui MD Immature granulocytes/100 WBC (Bld) 0 % Normal 0 [facility] Comment on above: Performed By: #### C DP, BMP, TROPI #### [address] [address] Bathhouse Keeper: Samuel Bui MD Lymphocytes (Bld) [#/Vol] 0.72 10*3/uL Low 1.10-3.70 [facility] Comment on above: Performed By: #### C DP, BMP, TROPI #### [address] [address] Bathhouse Keeper: Samuel Bui MD Lymphocytes/100 WBC (Bld) 8 % Low 24-43 [facility] Comment on above: Performed By: #### C DP, BMP, TROPI #### [place] [address] Bathhouse Keeper: Samuel Bui MD MCH (RBC) [Entitic mass] 31.4 pg Normal 25.2-33.5 [facility] Comment on above: Performed By: #### C DP, BMP, TROPI #### [address] [address] Bathhouse Keeper: Samuel Bui MD MCHC (RBC) [Mass/Vol] 31.7 g/dL Normal 28.4-34.8 [facility] Comment on above: Performed By: #### C DP, BMP, TROPI #### [place] [address] Bathhouse Keeper: Samuel Bui MD MCV (RBC) [Entitic vol] 99.3 fL Normal 82.6-102.9 [facility] Comment on above: Performed By: #### C DP, BMP, TROPI #### [address] [address] Bathhouse Keeper: Samuel Bui MD Monocytes (Bld) [#/Vol] 0.72 10*3/uL Normal 0.10-1.20 [facility] Comment on above: Performed By: #### C DP, BMP, TROPI #### [address] [address] Bathhouse Keeper: Samuel Bui MD Monocytes/100 WBC (Bld) 8 % Normal 3-12 [facility] Comment on above: Performed By: #### C DP, BMP, TROPI #### [address] [address] Bathhouse Keeper: Samuel Bui MD Neutrophil (Seg) 83 % High 36-65 [facility] Comment on above: Performed By: #### C DP, BMP, TROPI #### [address] [address] Bathhouse Keeper: Samuel Bui MD NRBC Automated 0.0 per 100 WBC Normal 0.0 [facility] Comment on above: Performed By: #### C DP, BMP, TROPI #### [facility] [address] [place] [address] Bathhouse Keeper: Samuel Bui MD Platelet mean volume (Bld) [Entitic vol] 9.9 fL Normal 8.1-13.5 [facility] Comment on above: Performed By: #### C DP, BMP, TROPI #### [facility] [address] [place] [address] Bathhouse Keeper: Samuel Bui MD Platelets (Bld) [#/Vol] 206 10*3/uL Normal 138-453 [facility] Comment on above: Performed By: #### C DPLEATHA, TROPI #### [facility] [place] [address] Bathhouse Keeper: Samuel Bui MD RBC (Bld) [#/Vol] 2.80 10*6/uL Low 4.21-5.77 [facility] Comment on above: Performed By: #### C DP, BMP, TROPI #### [facility] [address] [place] [address] Bathhouse Keeper: Samuel Bui MD WBC (Bld) [#/Vol] 9.5 10*3/uL Normal 3.5-11.3 [facility] Comment on above: Performed By: #### C YANELIS BMP, TROPI #### [facility] [address] [place] [address] Bathhouse Keeper: Samuel Bui MD MRSA, DNA, Nasalon MRSA, DNA, Nasal POSITIVE: MRSA DNA detected by nucleic acid amplification. Abnormal NEG [facility] Comment on above: Result Comment: Results should be used as an adjunct to nosocomial control efforts to identify patients needing enhanced precautions. The test is not intended to identify patients with staphylococcal infections. Results should not be used to guide or monitor treatment for MRSA infections. Performed By: #### M RSANO #### [facility] [address] [place] [address] Bathhouse Keeper: Samuel Bui MD Troponinon 04-27-2024 Troponin, High Sens 162 ng/L Critically high 0-22 [facility] Comment on above: Result Comment: High Sensitivity Troponin values cannot be compared with other Troponin methodologies. Previous Alert Value Reported Performed By: #### C DP BMP, TROPI #### [facility] [address] [place] [address] Bathhouse Keeper: Samuel Bui MD Basic Metabolic Profon 04-26 Anion gap [Moles/Vol] 19 mmol/L High 9-16 [facility] Comment on above: Performed By: #### B MANAGER UROLOGY, BMP, CDP, MG, KAILEY, TROPI #### [facility] [address] [place] [address] Bathhouse Keeper: Samuel Bui MD Calcium [Mass/Vol] 9.5 mg/dL Normal 8.6-10.4 [facility] Comment on above: Performed By: #### B MANAGER UROLOGY, BMP, CDP, MG, KAILEY, TROPI #### [facility] [address] [place] [address] Bathhouse Keeper: Samuel Bui MD Chloride [Moles/Vol] 92 mmol/L Low 98-107 [facility] Comment on above: Performed By: #### B MANAGER UROLOGY, BMP, CDP, MG, KAILEY, TROPI #### [employer] [address] [place] [address] Bathhouse Keeper: Samuel Bui MD CO2 [Moles/Vol] 21 mmol/L Normal 20-31 [facility] Comment on above: Performed By: #### B MANAGER UROLOGY, BMP, CDP, MG, KAILEY, TROPI #### [employer] [address] [place] [address] Bathhouse Keeper: Samuel Bui MD Creatinine [Mass/Vol] 9.9 mg/dL Critically high 0.70-1.20 [facility] Comment on above: Performed By: #### B MANAGER UROLOGY, BMP, CDP, MG, KAILEY, TROPI #### [facility] [address] [place] [address] Bathhouse Keeper: Samuel Bui MD GFR/1.73 sq M.predicted among non-blacks MDRD (S/P/Bld) [Vol rate/Area] 6 mL/min/{1.73_m2} Low >60 [facility] Comment on above: Result Comment: These results are not intended for use in patients <18 years of age. eGFR results are calculated without a race factor using the 2020 CKD-EPI equation. Careful clinical correlation is recommended, particularly when comparing to results calculated using previous equations. The CKD-EPI equation is less accurate in patients with extremes of muscle mass, extra-renal metabolism of creatine, excessive creatine ingestion, or following therapy that affects renal tubular secretion. Performed By: #### B MANAGER UROLOGY, BMP, CDP, MG, KAILEY, TROPI #### [address] [address] Bathhouse Keeper: Samuel Bui MD Glucose [Mass/Vol] 138 mg/dL High 74-99 [facility] Comment on above: Performed By: #### B MANAGER UROLOGY, BMP, CDP, MG, KAILEY, TROPI #### [address] [address] Bathhouse Keeper: Samuel Bui MD Potassium [Moles/Vol] 5.1 mmol/L Normal 3.7-5.3 [facility] Comment on above: Performed By: #### B MANAGER UROLOGY, BMP, CDP, MG, KAILEY, TROPI #### [address] [address] Bathhouse Keeper: Samuel Bui MD Sodium [Moles/Vol] 132 mmol/L Low 136-145 [facility] Comment on above: Performed By: #### B MANAGER UROLOGY, BMP, CDP, MG, KAILEY, TROPI #### [address] [address] Bathhouse Keeper: Samuel Bui MD Urea nitrogen [Mass/Vol] 47 mg/dL High 6-20 [facility] Comment on above: Performed By: #### B MANAGER UROLOGY, BMP, CDP, MG, KAILEY, TROPI #### [address] [address] Bathhouse Keeper: Samuel Bui MD Brain Natri. Peptideon 04-26 Natriuretic peptide B (Bld) [Mass/Vol] 77096 pg/mL High 0-300 [facility] Comment on above: Result Comment: An a ge-independent cutoff point of 300 pg/ml has a 98% negative predictive value excluding acute heart failure. Performed By: #### B MANAGER UROLOGY, BMP, CDP, MG, KAILEY, TROPI #### [place] [address] Bathhouse Keeper: Samuel Bui MD CBC with Diffon 04-26-2024 Abs. Basophil 0.00 k/uL Normal 0.00-0.20 [facility] Comment on above: Performed By: #### B MANAGER UROLOGY, BMP, CDP, MG, KAILEY, TROPI #### [place] [address] Bathhouse Keeper: Samuel Bui MD Abs.Imm.Granulocyte 0.00 k/uL Normal 0.00-0.30 [facility] Comment on above: Performed By: #### B MANAGER UROLOGY, BMP, CDP, MG, KAILEY, TROPI #### [facility] [address] [place] [address] Bathhouse Keeper: Samuel Bui MD Abs.Neutrophil (Seg) 7.29 k/uL Normal 1.50-8.10 [facility] Comment on above: Performed By: #### B MANAGER UROLOGY, BMP, CDP, MG, KAILEY, TROPI #### [place] [address] Bathhouse Keeper: Samuel Bui MD Basophils/100 WBC (Bld) 0 % Normal 0-2 [facility] Comment on above: Performed By: #### B MANAGER UROLOGY, BMP, CDP, MG, KAILEY, TROPI #### [place] [address] Bathhouse Keeper: Samuel Bui MD Eosinophils (Bld) [#/Vol] 0.00 10*3/uL Normal 0.00-0.44 [facility] Comment on above: Performed By: #### B MANAGER UROLOGY, BMP, CDP, MG, KAILEY, TROPI #### [address] [address] Bathhouse Keeper: Samuel Bui MD Eosinophils/100 WBC (Bld) 0 % Low 1-4 [facility] Comment on above: Performed By: #### B MANAGER UROLOGY, BMP, CDP, MG, KAILEY, TROPI #### [address] [address] Bathhouse Keeper: Samuel Bui MD Immature granulocytes/100 WBC (Bld) 0 % Normal 0 [facility] Comment on above: Performed By: #### B MANAGER UROLOGY, BMP, CDP, MG, KAILEY, TROPI #### [address] [address] Bathhouse Keeper: Samuel Bui MD Lymphocytes (Bld) [#/Vol] 0.23 10*3/uL Low 1.10-3.70 [facility] Comment on above: Performed By: #### B MANAGER UROLOGY, BMP, CDP, MG, KAILEY, TROPI #### [address] [address] Bathhouse Keeper: Samuel Bui MD Lymphocytes/100 WBC (Bld) 3 % Low 24-43 [facility] Comment on above: Performed By: #### B MANAGER UROLOGY, BMP, CDP, MG, KAILEY, TROPI #### [address] [address] Bathhouse Keeper: Samuel Bui MD Monocytes (Bld) [#/Vol] 0.08 10*3/uL Low 0.10-1.20 [facility] Comment on above: Performed By: #### B MANAGER UROLOGY, BMP, CDP, MG, KAILEY, TROPI #### [address] [address] Bathhouse Keeper: Samuel Bui MD Monocytes/100 WBC (Bld) 1 % Low 3-12 [facility] Comment on above: Performed By: #### B MANAGER UROLOGY, BMP, CDP, MG, KAILEY, TROPI #### [address] [address] Bathhouse Keeper: Samuel Bui MD Morphology Julian (Bld) [Interp] Normal Normal [facility] Comment on above: Performed By: #### B MANAGER UROLOGY, BMP, CDP, MG, KAILEY, TROPI #### [address] [address] Bathhouse Keeper: Samuel Bui MD Neutrophil (Seg) 96 % High 36-65 [facility] Comment on above: Performed By: #### B MANAGER UROLOGY, BMP, CDP, MG, KAILEY, TROPI #### [place] [address] Bathhouse Keeper: Samuel Bui MD Erythrocyte distribution width (RBC) [Ratio] 13.1 % Normal 11.8-14.4 [facility] Comment on above: Performed By: #### B MANAGER UROLOGY, BMP, CDP, MG, KAILEY, TROPI #### [address] [address] Bathhouse Keeper: Samuel Bui MD Hematocrit (Bld) [Volume fraction] 30.8 % Low 40.7-50.3 [facility] Comment on above: Performed By: #### B MANAGER UROLOGY, BMP, CDP, MG, KAILEY, TROPI #### [address] [address] Bathhouse Keeper: Samuel Bui MD Hemoglobin (Bld) [Mass/Vol] 9.5 g/dL Low 13.0-17.0 [facility] Comment on above: Performed By: #### B MANAGER UROLOGY, BMP, CDP, MG, KAILEY, TROPI #### [address] [address] Bathhouse Keeper: Samuel Bui MD MCH (RBC) [Entitic mass] 30.8 pg Normal 25.2-33.5 [facility] Comment on above: Performed By: #### B MANAGER UROLOGY, BMP, CDP, MG, KAILEY, TROPI #### [address] [address] Bathhouse Keeper: Samuel Bui MD MCHC (RBC) [Mass/Vol] 30.8 g/dL Normal 28.4-34.8 [facility] Comment on above: Performed By: #### B MANAGER UROLOGY, BMP, CDP, MG, KAILEY, TROPI #### [address] [address] Bathhouse Keeper: Samuel Bui MD MCV (RBC) [Entitic vol] 100.0 fL Normal 82.6-102.9 [facility] Comment on above: Performed By: #### B MANAGER UROLOGY, BMP, CDP, MG, KAILEY, TROPI #### [address] [address] Bathhouse Keeper: Samuel Bui MD NRBC Automated 0.0 per 100 WBC Normal 0.0 [facility] Comment on above: Performed By: #### B MANAGER UROLOGY, BMP, CDP, MG, KAIELY, TROPI #### [address] [address] Bathhouse Keeper: Samuel uBi MD Platelet mean volume (Bld) [Entitic vol] 9.8 fL Normal 8.1-13.5 [facility] Comment on above: Performed By: #### B MANAGER UROLOGY, BMP, CDP, MG, KAILEY, TROPI #### [address] [address] Bathhouse Keeper: Samuel Bui MD Platelets (Bld) [#/Vol] 202 10*3/uL Normal 138-453 [facility] Comment on above: Performed By: #### B MANAGER UROLOGY, BMP, CDP, MG, KAILEY, TROPI #### [address] [address] Bathhouse Keeper: Samuel Bui MD RBC (Bld) [#/Vol] 3.08 10*6/uL Low 4.21-5.77 [facility] Comment on above: Performed By: #### B MANAGER UROLOGY, BMP, CDP, MG, KAILEY, TROPI #### [address] [address] Bathhouse Keeper: Samuel Bui MD WBC (Bld) [#/Vol] 7.6 10*3/uL Normal 3.5-11.3 [facility] Comment on above: Performed By: #### B MANAGER UROLOGY, BMP, CDP, MG, KAILEY, TROPI #### [address] [address] Bathhouse Keeper: Samuel Bui MD Hep B Surf Agon 04-26-2024 Hep B Surf Ag Non-Reactive Normal NR [facility] Comment on above: Performed By: #### B MANAGER UROLOGY, BMP, CDP, MG, KAILEY, TROPI #### [address] [address] Bathhouse Keeper: Samuel Bui MD MRSA, DNA, Nasalon 4 Specimen Description .NASAL SWAB Normal [facility] Comment on above: Performed By: #### M RSANO #### [address] [address] Bathhouse Keeper: Samuel Bui MD Magnesiumon 04-26-2024 Magnesium [Mass/Vol] 2.9 mg/dL High 1.6-2.6 [facility] Comment on above: Performed By: #### B MANAGER UROLOGY, BMP, CDP, MG, KAILEY, TROPI #### [facility] [address] [place] [address] Bathhouse Keeper: Samuel Bui MD Phosphorus, Inorg.on 024 Phosphorus, Inorg. 5.0 mg/dL High 2.5-4.5 [facility] Comment on above: Performed By: #### B MANAGER UROLOGY, BMP, CDP, MG, KAILEY, TROPI #### [facility] [address] [place], [place] [address] Bathhouse Keeper: Samuel Bui MD Troponinon 04-26-2024 Troponin, High Sens 159 ng/L Critically high 0-22 [facility] Comment on above: Result Comment: High Sensitivity Troponin values cannot be compared with other Troponin methodologies. Performed By: #### B MANAGER UROLOGY, BMP, CDP, MG, KAILEY, TROPI #### [facility] [address] [place] [address] Bathhouse Keeper: Samuel Bui MD Orders Onlyon 04-07-2024 Orders Only [facility] 36on 04-04-2024 36 Returned patients telephone call. Patient voicing concerns about having to wait for lymph node biopsy. I reassured Mr. Massey and he verbalized understanding and appreciation. Normal [facility] 36on 04-03-2024 36 [facility] Documentationon 04-03-2024 Documentation [facility] Telephoneon 04-03-2024 Telephone [facility] 36on 03-25-2024 36 [facility] 36on 03-17-2024 36 Duplicate. Rx sent 03/17/2024 [facility] 36 Prescription sent Normal [facility] BASIC METABOLIC PANELon 05-2 Anion gap [Moles/Vol] 18 mmol/L Normal 7-20 [facility] Comment on above: Performed By: #### L [id number] ####[facility] ([facility])[address] [place] [address] Calcium [Mass/Vol] 9.6 mg/dL Normal 8.6-10.3 [facility] Comment on above: Performed By: #### L [id number] ####[facility] ([facility])[address] [place] [address] Chloride [Moles/Vol] 90 mmol/L Low 98-107 [facility] Comment on above: Performed By: #### L [id number] ####[facility] ([facility])[address] [place] [address] CO2 [Moles/Vol] 29 mmol/L Normal 21-31 [facility] Comment on above: Performed By: #### L [id number] ####[facility] ([facility])[address] [place] [address] Creatinine [Mass/Vol] 8.20 mg/dL High 0.70-1.30 [facility] Comment on above: Performed By: #### L [id number] ####[facility] ([facility])[address] [place] [address] GLOMERULAR FILTRATION RATE ML/MIN/1.73 SQ M.PREDICTED 7.1 mL/min/1.73m*2 Low >60.0 [facility] Comment on above: Result Comment: [facility]???s estimated glomerular filtration rate (eGFR) will no longer include consideration of race in its calculation. The National Kid[employer] Foundation???s eGFR Task Force developed new recommendations for the estimation of the glomerular filtration rate in the [place] They recommend immediate implementation of the new equation refit without the race variable in all laboratories because the calculation does not include race. In addition to not including race in the calculation and reporting, it included diversity in its development, and has acceptable performance characteristics and potential consequences that do not disproportionately affect any one group of individuals. Performed By: #### L [id number] ####[facility] ([facility])[address] [place] [address] Glucose [Mass/Vol] 78 mg/dL Normal 70-100 [facility] Comment on above: Performed By: #### L [id number] ####[facility] ([facility])[address] [place] [address] Potassium [Moles/Vol] 5.2 mmol/L High 3.5-5.1 [facility] Comment on above: Performed By: #### L [id number] ####[facility] ([facility])[address] [place] [address] Sodium [Moles/Vol] 132 mmol/L Low 136-145 [facility] Comment on above: Performed By: #### L [id number] ####[facility] ([facility])[address] [place] [address] Urea nitrogen [Mass/Vol] 29 mg/dL High 7-25 [facility] Comment on above: Performed By: #### L [id number] ####[facility] ([facility])[address] [place] [address] UREA NITROGEN/CREATININE (MASS RATIO) IN SER/PLAS 3.5 Normal [facility] Comment on above: Performed By: #### L [id number] ####[facility] ([facility])[address] [place] [address] CBC WITH AUTO DIFFERENTIALon 03-12-2024 Basophils (Bld) [#/Vol] 0.07 10*3/uL Normal 0.00-0.20 [facility] Comment on above: Performed By: #### L [id number] ####[facility] ([facility])[address] [place] [address] Basophils/100 WBC (Bld) 0.8 % Normal 0.0-1.0 [facility] Comment on above: Performed By: #### L [id number] ####[facility] ([facility])[address] [place] [address] Eosinophils (Bld) [#/Vol] 0.31 10*3/uL Normal 0.00-0.50 [facility] Comment on above: Performed By: #### L [id number] ####[facility] ([facility])[address] [place] [address] Eosinophils/100 WBC (Bld) 3.4 % Normal 0.0-6.0 [facility] Comment on above: Performed By: #### L [id number] ####[facility] [place] [address] Erythrocyte distribution width (RBC) [Ratio] 13.1 % Normal 11.5-15.0 [facility] Comment on above: Performed By: #### L [id number] ####[facility] ([facility])[address] [place] [address] ERYTHROCYTE MEAN CORPUSCULAR HEMOGLOBIN CONCENTRATION (G/DL) BY AUTOMATED 33.1 g/dL Normal 32.0-35.0 [facility] Comment on above: Performed By: #### L [id number] ####[facility] [place] [address] Hematocrit (Bld) [Volume fraction] 43.2 % Normal 39.0-55.0 [facility] Comment on above: Performed By: #### L [id number] ####[facility] [place] [address] Hemoglobin (Bld) [Mass/Vol] 14.3 g/dL Normal 13.0-17.0 [facility] Comment on above: Performed By: #### L [id number] ####[facility] ([facility])[address] [place] [address] Immature granulocytes (Bld) [#/Vol] 0.05 10*3/uL Normal 0.00-0.20 [facility] Comment on above: Performed By: #### L [id number] ####[facility] ([facility])[address] [place] [address] Immature granulocytes/100 WBC (Bld) 0.5 % Normal 0.0-1.0 [facility] Comment on above: Performed By: #### L [id number] ####[facility] ([facility])[address] [place] [address] Lymphocytes (Bld) [#/Vol] 0.58 10*3/uL Low 1.20-4.00 [facility] Comment on above: Performed By: #### L [id number] ####[facility] ([facility])[address] [place] [address] Lymphocytes/100 WBC (Bld) 6.4 % Low 20.0-45.0 [facility] Comment on above: Performed By: #### L [id number] ####[facility] ([facility])[address] [place] [address] MCH (RBC) [Entitic mass] 33.2 pg High 27.0-33.0 [facility] Comment on above: Performed By: #### L [id number] ####[facility] [place] [address] MCV (RBC) [Entitic vol] 100.2 fL High 82.0-98.0 [facility] Comment on above: Performed By: #### L [id number] ####[facility] ([facility])[address] [place] [address] Monocytes (Bld) [#/Vol] 0.57 10*3/uL Normal 0.10-1.00 [facility] Comment on above: Performed By: #### L [id number] ####[facility] [place] [address] Monocytes/100 WBC (Bld) 6.3 % Normal 5.0-12.0 [facility] Comment on above: Performed By: #### L [id number] ####[facility] [place] [address] Neutrophils (Bld) [#/Vol] 7.54 10*3/uL Normal 1.60-7.60 [facility] Comment on above: Performed By: #### L [id number] ####[facility] [place] [address] Neutrophils/100 WBC (Bld) 82.6 % High 40.0-72.0 [facility] Comment on above: Performed By: #### L [id number] ####[facility] [place] [address] NRBC (PER 100 WBCS) BY AUTOMATED COUNT 0.0 % Normal 0 [facility] Comment on above: Performed By: #### L [id number] ####[facility] [place] [address] PLATELETS (10*3/UL) IN BLOOD AUTOMATED COUNT 306 10*3/uL Normal 150-400 [facility] Comment on above: Performed By: #### L [id number] ####[facility] ([facility])[address] [place] [address] RBC (Bld) [#/Vol] 4.31 10*6/uL Normal 4.20-5.70 [facility] Comment on above: Performed By: #### L [id number] ####[facility] ([facility])[address] [place] [address] WBC (Bld) [#/Vol] 9.12 10*3/uL Normal 4.00-10.60 [facility] Comment on above: Performed By: #### L [id number] ####[facility] ([facility])[address] [place] [address] Consulton 03-12-2024 Consult Normal [facility] Labon 03-12-2024 Lab Normal [facility] PROTIME-INRon 03-12-2024 INR IN PPP BY COAGULATION ASSAY 0.98 Normal 0.90-1.10 [facility] Comment on above: Result Comment: ACCC P RECOMMENDED INR FOR WARFARIN THERAPY CONDITION INRPROPHYLAXIS OF VENOUS THROMBOSIS 2-3(HIGH-RISK SURGERY)TREATMENT OF VENOUS THROMBOSIS 2-3TREATMENT OF PULMONARY EMBOLISM 2-3PREVENTION OF SYSTEMIC EMBOLISM: 2-3 ACUTE MYOCARDIAL INFARCTION TISSUE HEART VALVES VALVULAR HEART DISEASE ATRIAL FIBRILLATION RECURRENT SYSTEMIC EMBOLISMMECHANICAL HEART VALVE 2.5-3.5 FROM: ORAL ANTICOAGULANTS. MECHANISM OF ACTION, CLINICAL EFFECTIVENESS, AND OPTIMAL THERAPEUTIC RANGE. CHEST 1995;108:231S-246S. Performed By: #### L [id number] ####[facility] ([facility])[address] [place] [address] PROTHROMBIN TIME (PT) IN PPP BY COAGULATION ASSAY 13.0 Seconds Normal 12.3-14.8 [facility] Comment on above: Performed By: #### L [id number] ####[facility] ([facility])[address] [place] [address] Potassiumon 02-21-2024 Potassium [Moles/Vol] 5.4 mmol/L High 3.5-5.1 [facility] Comment on above: Result Comment: PERF ORMED BY: [address] [address] PATHOLOGIST FARM MARKETER JM BERYR M.D. Performed By: #### K #### [facility] [address] [place] [address] [facility] Potassium [Moles/volume] in Serum or PlasmaOrdered By: Junior Mayo on 02-21-2024 Potassium [Moles/Vol] 5.4 mmol/L 3.5-5.1 [facility] 37on 02-20-2024 37 1) please schedule ultrasound appoitment with Dr De Souza Follow up with Dr Martinez Normal [facility] Documentationon 02-12-2024 Documentation Normal [facility] 36on 02-11-2024 36 RX sent 02/11/2024 Normal [facility] Potassiumon 02-07-2024 Potassium [Moles/Vol] 5.1 mmol/L Normal 3.5-5.1 [facility] Comment on above: Result Comment: PERF ORMED BY: [address] [address] PATHOLOGIST [employer]ARM MARKETER JM BERRY M.D. Performed By: #### K #### [facility] [address] [place] [address] [place] Potassium [Moles/volume] in Serum or PlasmaOrdered By: Junior Mayo on 02-07-2024 Potassium [Moles/Vol] 5.1 mmol/L 3.5-5.1 [facility] CBC WITH AUTO DIFFERENTIALon 02-06-2024 Basophils (Bld) [#/Vol] 0.03 10*3/uL Normal 0.00-0.20 [facility] Comment on above: Performed By: #### L [id number] ####[facility] ([facility])[address] [place] [address] Basophils/100 WBC (Bld) 0.3 % Normal 0.0-1.0 [facility] Comment on above: Performed By: #### L [id number] ####[facility] ([facility])[address] [place] [address] Eosinophils (Bld) [#/Vol] 0.04 10*3/uL Normal 0.00-0.50 [facility] Comment on above: Performed By: #### L [id number] ####[facility] ([facility])[address] [place] [address] Eosinophils/100 WBC (Bld) 0.4 % Normal 0.0-6.0 [facility] Comment on above: Performed By: #### L [id number] ####[facility] ([facility])[address] [place] [address] Erythrocyte distribution width (RBC) [Ratio] 13.2 % Normal 11.5-15.0 [facility] Comment on above: Performed By: #### L [id number] ####[facility] ([facility]ER)[address] [place] [address] ERYTHROCYTE MEAN CORPUSCULAR HEMOGLOBIN CONCENTRATION (G/DL) BY AUTOMATED 32.5 g/dL Normal 32.0-35.0 [facility] Comment on above: Performed By: #### L [id number] ####[facility] ([facility])[address] [place] [address] Hematocrit (Bld) [Volume fraction] 37.2 % Low 39.0-55.0 [facility] Comment on above: Performed By: #### L [id number] ####[facility] ([facility])[address] [place] [address] Hemoglobin (Bld) [Mass/Vol] 12.1 g/dL Low 13.0-17.0 [facility] Comment on above: Performed By: #### L [id number] ####[facility] ([facility])[address] [place] [address] Immature granulocytes (Bld) [#/Vol] 0.05 10*3/uL Normal 0.00-0.20 [facility] Comment on above: Performed By: #### L [id number] ####[facility] ([facility])[address] [place] [address] Immature granulocytes/100 WBC (Bld) 0.5 % Normal 0.0-1.0 [facility] Comment on above: Performed By: #### L [id number] ####[facility] ([facility])[address] [place] [address] Lymphocytes (Bld) [#/Vol] 0.30 10*3/uL Low 1.20-4.00 [facility] Comment on above: Performed By: #### L [id number] ####[facility] [place] [address] Lymphocytes/100 WBC (Bld) 2.8 % Low 20.0-45.0 [facility] Comment on above: Performed By: #### L [id number] ####[facility] [place] [address] MCH (RBC) [Entitic mass] 34.9 pg High 27.0-33.0 [facility] Comment on above: Performed By: #### L [id number] ####[facility] ([facility])[address] [place] [address] MCV (RBC) [Entitic vol] 107.2 fL High 82.0-98.0 [facility] Comment on above: Performed By: #### L [id number] ####[facility] ([facility]AKER)[address] [place] [address] Monocytes (Bld) [#/Vol] 0.95 10*3/uL Normal 0.10-1.00 [facility] Comment on above: Performed By: #### L [id number] ####[facility] (BE[facility]ER)[address] [place] [address] Monocytes/100 WBC (Bld) 8.8 % Normal 5.0-12.0 [facility] Comment on above: Performed By: #### L [id number] ####[facility] (BEAKER)[address] [place] [address] Neutrophils (Bld) [#/Vol] 9.41 10*3/uL High 1.60-7.60 [facility] Comment on above: Performed By: #### L [id number] ####[facility] (BEAKER)[address] [place] [address] Neutrophils/100 WBC (Bld) 87.2 % High 40.0-72.0 [facility] Comment on above: Performed By: #### L [id number] ####[facility] (BEAKER)[address] [place] [address] NRBC (PER 100 WBCS) BY AUTOMATED COUNT 0.0 % Normal 0 [facility] Comment on above: Performed By: #### L [id number] ####[facility] (BEAKER)[address] [place] [address] PLATELETS (10*3/UL) IN BLOOD AUTOMATED COUNT 289 10*3/uL Normal 150-400 [facility] Comment on above: Performed By: #### L [id number] ####[facility] (BEAKER)[address] [place] [address] RBC (Bld) [#/Vol] 3.47 10*6/uL Low 4.20-5.70 [facility] Comment on above: Performed By: #### L [id number] ####[facility] (BEAKER)[address] [place] [address] WBC (Bld) [#/Vol] 10.78 10*3/uL High 4.00-10.[address] [facility] Comment on above: Performed By: #### L [id number] ####[facility] ([facility])[address] [place] [address] Labon 02-06-2024 Lab Normal [facility] VITAMIN B12on 02-06-2024 Cobalamin (Vitamin B12) [Mass/Vol] 822 pg/mL Normal 180-914 [facility] Comment on above: Result Comment: REFE RENCE RANGES:180-914 pg/mL [id number] pg/mL Indeterminate<145 pg/mL Deficient Performed By: #### L [id number] ####[facility] ([facility])[address] [place] [address] APTTon 01-30-2024 ACTIVATED PARTIAL THROMBOPLASTIN TIME IN PPP BY COAGULATION ASSAY 27.4 Seconds Normal 25.0-35.0 [facility] Comment on above: Result Comment: Clin ical significance of the APTT is questionable in the presence of heparin. Performed By: #### L [id number] ####[facility] ([facility])[address] [place] [address] CBCon 01-30-2024 Erythrocyte distribution width (RBC) [Ratio] 14.0 % Normal 11.5-15.0 [facility] Comment on above: Performed By: #### L [id number] ####[facility] ([facility])[address] [place] [address] ERYTHROCYTE MEAN CORPUSCULAR HEMOGLOBIN CONCENTRATION (G/DL) BY AUTOMATED 33.2 g/dL Normal 32.0-35.0 [facility] Comment on above: Performed By: #### L [id number] ####[facility] ([facility])[address] [place] [address] Hematocrit (Bld) [Volume fraction] 37.7 % Low 39.0-55.0 [facility] Comment on above: Performed By: #### L [id number] ####[facility] [place] [address] Hemoglobin (Bld) [Mass/Vol] 12.5 g/dL Low 13.0-17.0 [facility] Comment on above: Performed By: #### L [id number] ####[facility] [place] [address] MCH (RBC) [Entitic mass] 36.5 pg High 27.0-33.0 [facility] Comment on above: Performed By: #### L [id number] ####[facility] [place] [address] MCV (RBC) [Entitic vol] 110.2 fL High 82.0-98.0 [facility] Comment on above: Performed By: #### L [id number] ####[facility] ([facility])[address] [place] [address] PLATELETS (10*3/UL) IN BLOOD AUTOMATED COUNT 311 10*3/uL Normal 150-400 [facility] Comment on above: Performed By: #### L [id number] ####[facility] ([facility])[address] [place] [address] RBC (Bld) [#/Vol] 3.42 10*6/uL Low 4.20-5.70 [facility] Comment on above: Performed By: #### L [id number] ####[facility] ([facility])[address] [place] [address] WBC (Bld) [#/Vol] 11.68 10*3/uL High 4.00-10.60 [facility] Comment on above: Performed By: #### L [id number] ####[facility] [place] [address] CT GUIDED PERCUTANEOUS BIOPS Y LYMPH NODE SUPERFICIALon 01-30-2024 CT GUIDED PERCUTANEOUS BIOPSY LYMPH NODE SUPERFICIAL Invalid Interpretation Code [facility] Comment on above: Order Comment: Would like left axilla biopsied. Please call Dr. Simmons at [phone] with any questions HISTOLOGY - TISSUE EXAMon LAB AP ASR DISCLAIMER Normal [facility] Comment on above: Performed By: #### L [id number] ####[facility] ([facility])[address] [place] [address] LAB AP CASE REPORT Normal [facility] Comment on above: Result Comment: Surg ical Pathology Case: [id number] Provider: Rashmi Simmons MD Collected: 01/30/2024 1152Ordering Location: [facility] CT Imaging Received: 01/30/2024 1257Pathologist: JOO Gonzalespecimen: Lymph Node, Left Groin lymph node Performed By: #### L [id number] ####[facility] ([facility])[address] [place] [address] LAB AP CLINICAL INFORMATION Order Diagnoses Normal [facility] Comment on above: Result Comment: R94. 8 - Abnormal results of function studies of other organs and systems [ICD-10-CM] Performed By: #### L [id number] ####[facility] ([facility])[address] [place] [address] LAB AP DIAGNOSIS COMMENT Normal [facility] Comment on above: Result Comment: Sect ions reveal lymph node tissue without evident secondary follicle formation. CD20 and CD3 immunostains highlight B- and T-cell distributions. The B-cell population is negative for CD5, CD10, cyclin D1 and BCL6. BCL2 highlights most lymphocytes. Ki-67 immunostain reveals low proliferation without evidence of germinal center proliferation. CD21 immunostain highlights few follicular dendritic meshworks. Dual kappa and lambda light chain immunostain highlights scattered polytypic plasma cells.The morphologic and immunophenotypic findings reveal no evidence of a lymphomatous process. However if clinical suspicion for lymphoma remains, lymph node excision is recommended for further evaluation. Performed By: #### L [id number] ####[facility] ([facility] [place] [address] LAB AP FLOW CYTOMETRY SUMMARY Normal [facility] Comment on above: Result Comment: Flow cytometry studies were completed at [facility] In[place]:Leukemia/lymphoma phenotyping evaluation by flow cytometry:- Increased CD4:CD8 T-cell ratio (10:1) without immunophenotypic aberrancy.- An increased CD4:CD8 ratio is a non-specific finding and may be observed in various reactive setting, Hodgkin lymphomas, and other conditions. Performed By: #### L [id number] ####[facility] ([facility])[address] [place] [address] LAB AP GROSS DESCRIPTION A. Lymph Node. [facility] Comment on above: Result Comment: Rece ived in formalin, labeled with the patient's name Leander Massey and left groin lymph node, are 3 holland-pink needle core segments, ranging from 0.7 x 0.1 cm to 2.0 x 0.1 cm. The specimen is submitted in toto in 3 cassettes.Juanita Zepeda, Pathologists' Savings Counselor JosrDaanjelica Adams, Pathologists' Savings Counselor Performed By: #### L [id number] ####[facility] ([facility])[address] [place] [address] LAB AP INTRAOPERATIVE CONSULTATION A. Lymph Node. [facility] Comment on above: Result Comment: Imme diate adequacy was performed by Dr. Schneider.Pass #1: AdequatePass #2: InadequatePass #3: AdequatePass #4: DeferPass #5: DeferPass #6: DeferWhen additional subsequent fine needle aspirations are performed, they are done in order to obtain an adequate amount of patient intake representative material of the tumor/lesion for diagnosis and/or ancillary studies. Performed By: #### L [id number] ####[facility] ([facility])[address] [place] [address] LAB AP MICROSCOPIC DESCRIPTION Microscopic examination performed. [facility] Comment on above: Performed By: #### L [id number] ####[facility] ([facility])[address] [place] [address] LAB AP REPORT FINAL DIAGNOSIS NARRATIVE [facility] Comment on above: Result Comment: A. L ymph node, left groin, core biopsy:- Lymph node tissue; no evidence of lymphoma or metastatic carcinoma.- See comment. Performed By: #### L [id number] ####[facility] (BEAKER)[address] [address] HPon 01-30-2024 HP Normal [facility] PROTIME-INRon 01-30-2024 INR IN PPP BY COAGULATION ASSAY 1.00 Normal 0.90-1.10 [facility] Comment on above: Result Comment: ACCC P RECOMMENDED INR FOR WARFARIN THERAPY CONDITION INRPROPHYLAXIS OF VENOUS THROMBOSIS 2-3(HIGH-RISK SURGERY)TREATMENT OF VENOUS THROMBOSIS 2-3TREATMENT OF PULMONARY EMBOLISM 2-3PREVENTION OF SYSTEMIC EMBOLISM: 2-3 ACUTE MYOCARDIAL INFARCTION TISSUE HEART VALVES VALVULAR HEART DISEASE ATRIAL FIBRILLATION RECURRENT SYSTEMIC EMBOLISMMECHANICAL HEART VALVE 2.5-3.5 FROM: ORAL ANTICOAGULANTS. MECHANISM OF ACTION, CLINICAL EFFECTIVENESS, AND OPTIMAL THERAPEUTIC RANGE. CHEST 1995;108:231S-246S. Performed By: #### L [id number] ####[facility] (BEAKER)[address] [place] [address] PROTHROMBIN TIME (PT) IN PPP BY COAGULATION ASSAY 13.2 Seconds Normal 12.3-14.8 [facility] Comment on above: Performed By: #### L [id number] ####[facility] (BEAKER)[address] [place] [address] 36on 01-11-2024 36 Normal [facility] Orders Onlyon 01-11-2024 Orders Only [facility] Refillon 01-11-2024 Refill Normal [facility] 36on 01-09-2024 36 Approving, but needs appt for additional refills. Normal [facility] Alanine aminotransferase [En zymatic activity/volume] in Serum or PlasmaOrdered By: Percy Herrera on 01-09-2024 ALT [Catalytic activity/Vol] 12 U/L 7-52 [facility] Albumin [Mass/volume] in Ser um or Plasma by Bromocresol green (BCG) dye binding methoOrdered By: Percy Herrera on 01-09-2024 Albumin BCG dye [Mass/Vol] 4.2 g/dL 3.5-5.7 [facility] Alkaline phosphatase [Enzyma tic activity/volume] in Serum or PlasmaOrdered By: Percy Herrera on 01-09-2024 ALP [Catalytic activity/Vol] 72 U/L 34-104 [facility] Aspartate aminotransferase [ Enzymatic activity/volume] in Serum or PlasmaOrdered By: Percy Herrera on 01-09-2024 AST [Catalytic activity/Vol] 15 U/L 13-39 [facility] Basophils Auto (Bld) [#/Vol] Ordered By: Percy Herrera on 01-09-2024 Basophils (Bld) [#/Vol] 0.1 10*3/uL 0.0-0.2 [facility] Basophils/100 WBC Auto (Bld) Ordered By: Percy Herrera on 01-09-2024 Basophils/100 WBC (Bld) 1.1 % . [facility] Bilirubin.total [Mass/volume ] in Serum or PlasmaOrdered By: Percy Herrera on 01-09-2024 Bilirubin [Mass/Vol] 0.6 mg/dL 0.3-1.0 [facility] Calcium [Mass/volume] in Ser um or PlasmaOrdered By: Percy Herrera on 01-09-2024 Calcium [Mass/Vol] 9.5 mg/dL 8.6-10.3 [facility] Carbon dioxide, total [Moles /volume] in Serum or PlasmaOrdered By: Percy Herrera on 01-09-2024 CO2 [Moles/Vol] 28.9 mmol/L 21.0-31.0 [facility] Chloride [Moles/volume] in S timi or PlasmaOrdered By: Percy Herrera on 01-09-2024 Chloride [Moles/Vol] 95 mmol/L 98-107 [facility] Complete Blood Count Auto Di ffon 01-09-2024 Basophils (Bld) [#/Vol] 0.1 10*3/uL Normal 0.0-0.2 [facility] Comment on above: Result Comment: PERF ORMED BY: [place] [address] PATHOLOGIST FARM MARKETER JM BERRY M.D. Performed By: #### H S TROP #### [address] Basophils/100 WBC (Bld) 1.1 % Normal . [facility] Comment on above: Performed By: #### H S TROP #### [address] Eosinophils (Bld) [#/Vol] 0.6 10*3/uL High 0.0-0.45 [facility] Comment on above: Performed By: #### H S TROP #### [address] Eosinophils/100 WBC (Bld) 4.9 % Normal . [facility] Comment on above: Performed By: #### H S TROP #### [address] Erythrocyte distribution width (RBC) [Ratio] 17.7 % High 12.0-14.8 [facility] Comment on above: Performed By: #### H S TROP #### [address] Hematocrit (Bld) [Volume fraction] 26.1 % Low 38.8-50.0 [facility] Comment on above: Performed By: #### H S TROP #### [address] Hemoglobin (Bld) [Mass/Vol] 8.7 g/dL Low 13.0-17.0 [facility] Comment on above: Performed By: #### H S TROP #### [place] [address] [place] Lymphocytes (Bld) [#/Vol] 0.8 10*3/uL Low 1.00-4.8 [facility] Comment on above: Performed By: #### H S TROP #### [address] Lymphocytes/100 WBC (Bld) 7.2 % Normal . [facility] Comment on above: Performed By: #### H S TROP #### [address] MCH (RBC) [Entitic mass] 37.3 pg High 27.5-35.2 [facility] Comment on above: Performed By: #### H S TROP #### [address] MCV (RBC) [Entitic vol] 111.7 fL High 83.5-101 [facility] Comment on above: Performed By: #### H S TROP #### [address] Mean Corpuscular HGB Conc 33.4 g/dL Normal 32.5-35.6 [facility] Comment on above: Performed By: #### H S TROP #### [address] Monocytes (Bld) [#/Vol] 0.6 10*3/uL Normal 0.0-0.8 [facility] Comment on above: Performed By: #### H S TROP #### [address] Monocytes/100 WBC (Bld) 5.4 % Normal . [facility] Comment on above: Performed By: #### H S TROP #### [address] Neutrophils (Bld) [#/Vol] 9.2 10*3/uL High 1.8-7.7 [facility] Comment on above: Performed By: #### H S TROP #### [address] Neutrophils/100 WBC (Bld) 81.4 % Normal . [facility] Comment on above: Performed By: #### H S TROP #### [address] NRBC% 0.2 /100{WBC} Normal 0-0.5 [facility] Comment on above: Performed By: #### H S TROP #### [address] Platelet mean volume (Bld) [Entitic vol] 8.4 fL Normal 6.6-10.1 [facility] Comment on above: Performed By: #### H S TROP #### [address] Platelets (Bld) [#/Vol] 326 10*3/uL Normal 150-450 [facility] Comment on above: Performed By: #### H S TROP #### [address] RBC (Bld) [#/Vol] 2.34 10*6/uL Low 3.90-5.60 [facility] Comment on above: Performed By: #### H S TROP #### [address] WBC (Bld) [#/Vol] 11.3 10*3/uL High 4.1-10.5 [facility] Comment on above: Performed By: #### H S TROP #### [address] Comprehensive Metabolic Pane fletcher 01-09-2024 Albumin [Mass/Vol] 4.2 g/dL Normal 3.5-5.7 The Count includes the [facility] Comment on above: Performed By: #### H S TROP #### [address] Albumin/Globulin [Mass ratio] 1.6 {ratio} Normal [facility] Comment on above: Performed By: #### H S TROP #### [address] ALP [Catalytic activity/Vol] 72 U/L Normal 34-104 [facility] Comment on above: Performed By: #### H S TROP #### [facility] [address] [place] [address] ALT [Catalytic activity/Vol] 12 U/L Normal 7-52 [facility] Comment on above: Performed By: #### H S TROP #### [address] Anion gap [Moles/Vol] 15.6 mmol/L High 6.0-15.0 Th e [facility] Comment on above: Performed By: #### H S TROP #### [address] AST [Catalytic activity/Vol] 15 U/L Normal 13-39 [facility] Comment on above: Performed By: #### H S TROP #### [address] Bilirubin [Mass/Vol] 0.6 mg/dL Normal 0.3-1.0 [facility] Comment on above: Performed By: #### H S TROP #### [address] Calcium [Mass/Vol] 9.5 mg/dL Normal 8.6-10.3 The Count includes the [facility] Comment on above: Performed By: #### H S TROP #### [place] [address] [place] Chloride [Moles/Vol] 95 mmol/L Low 98-107 [facility] Comment on above: Performed By: #### H S TROP #### [place] [address] [place] CO2 [Moles/Vol] 28.9 mmol/L Normal 21.0-31.0 The [facility] Comment on above: Performed By: #### H S TROP #### [address] Creatinine [Mass/Vol] 5.40 mg/dL Significan t change up 0.70-1.30 [facility] Comment on above: Performed By: #### H S TROP #### [address] Creatinine Clr Calc Pharmacy 17.89 Normal [facility] Comment on above: Performed By: #### H S TROP #### [place] [address] [place] GFR/1.73 sq M.predicted MDRD (S/P/Bld) [Vol rate/Area] 11.747 mL/min/{1.73_m2} Normal [facility] Comment on above: Performed By: #### H S TROP #### [place] [address] [place] Globulin (S) [Mass/Vol] 2.6 g/dL Normal [facility] Comment on above: Performed By: #### H S TROP #### [address] Glucose [Mass/Vol] 77 mg/dL Normal 70-100 The Count includes the [facility] Comment on above: Result Comment: [place] Glucose Reference Range is dependent on time and content of last meal. Glucose of more than 200 mg/dL in a nonstressed, ambulatory subject supports the diagnosis of Diabetes Mellitus. ADA recommended reference range Performed By: #### H S TROP #### [place] [address] [place] Potassium [Moles/Vol] 3.5 mmol/L Significan t change down 3.5-5.1 [facility] Comment on above: Performed By: #### H S TROP #### [address] Protein [Mass/Vol] 6.8 g/dL Normal 6.4-8.9 The Count includes the [facility] Comment on above: Performed By: #### H S TROP #### [place] [address] [place] Sodium [Moles/Vol] 136 mmol/L Normal 136-145 The Count includes the [facility] Comment on above: Performed By: #### H S TROP #### [place] [address] [place] Urea nitrogen [Mass/Vol] 21 mg/dL Significant change down 7-25 [facility] Comment on above: Performed By: #### H S TROP #### [address] Albumin [Mass/Vol] 3.9 g/dL Normal 3.5-5.7 The Count includes the [facility] Comment on above: Performed By: #### C MP, SCAN CBC #### [place] [address] [place] Albumin/Globulin [Mass ratio] 1.5 {ratio} Normal [facility] Comment on above: Performed By: #### C MP, SCAN CBC #### [place] [address] [place] ALP [Catalytic activity/Vol] 81 U/L Normal 34-104 [facility] Comment on above: Performed By: #### C MP, SCAN CBC #### [facility] [address] [place] [address] ALT [Catalytic activity/Vol] 12 U/L Normal 7-52 [facility] Comment on above: Performed By: #### C MP, SCAN CBC #### [facility] [address] [place] [address] [place] Anion gap [Moles/Vol] 18.9 mmol/L High 6.0-15.0 Th e [facility] Comment on above: Performed By: #### C MP, SCAN CBC #### [facility] [address] [place] [address] [place] AST [Catalytic activity/Vol] 17 U/L Normal 13-39 [facility] Comment on above: Performed By: #### C MP, SCAN CBC #### [facility] [address] [place] [address] [place] Bilirubin [Mass/Vol] 0.5 mg/dL Normal 0.3-1.0 [facility] Comment on above: Performed By: #### C MP, SCAN CBC #### [facility] [address] [place] [address] [place] Calcium [Mass/Vol] 9.5 mg/dL Normal 8.6-10.3 The Count includes the [facility] Comment on above: Performed By: #### C MP, SCAN CBC #### [facility] [address] [place] [address] [place] Chloride [Moles/Vol] 98 mmol/L Normal 98-107 [facility] Comment on above: Performed By: #### C MP, SCAN CBC #### [facility] [address] [place] [address] [place] CO2 [Moles/Vol] 22.2 mmol/L Normal 21.0-31.0 The [facility] Comment on above: Performed By: #### C MP, SCAN CBC #### [facility] [address] [place] [address] Creatinine [Mass/Vol] 13.26 mg/dL High 0.70-1.30 Th e [facility] Comment on above: Performed By: #### C MP, SCAN CBC #### [address] Creatinine Clr Calc Pharmacy 7.40 Normal [facility] Comment on above: Result Comment: PERF ORMED BY: [place] [address] PATHOLOGIST [employer]ARM MARKETER JM BERRY M.D. Performed By: #### C MP, SCAN CBC #### [place] [address] [place] GFR/1.73 sq M.predicted MDRD (S/P/Bld) [Vol rate/Area] 3.997 mL/min/{1.73_m2} Normal [facility] Comment on above: Performed By: #### C MP, SCAN CBC #### [place] [address] [place] Globulin (S) [Mass/Vol] 2.6 g/dL Normal [facility] Comment on above: Performed By: #### C MP, SCAN CBC #### [place] [address] [place] Glucose [Mass/Vol] 89 mg/dL Normal 70-100 The Count includes the [facility] Comment on above: Result Comment: [place] Glucose Reference Range is dependent on time and content of last meal. Glucose of more than 200 mg/dL in a nonstressed, ambulatory subject supports the diagnosis of Diabetes Mellitus. ADA recommended reference range Performed By: #### C MP, SCAN CBC #### [facility] [address] [place] [address] [place] Potassium [Moles/Vol] 7.1 mmol/L Off scale high 3.5-5.1 The [facility] Comment on above: Result Comment: Crit ical Result Called to and read back by: JERICA JIMENEZ at: 01/08/2024 23:10:51 by:[id number] Performed By: #### C MP, SCAN CBC #### [facility] [address] Protein [Mass/Vol] 6.5 g/dL Normal 6.4-8.9 The Count includes the [facility] Comment on above: Performed By: #### C MP, SCAN CBC #### [facility] [address] [place] [address] [place] Sodium [Moles/Vol] 132 mmol/L Low 136-145 The Count includes the [facility] Comment on above: Performed By: #### C MP, SCAN CBC #### [facility] [address] [place] [id number] [place] Urea nitrogen [Mass/Vol] 67 mg/dL High 7-25 The [facility] Comment on above: Performed By: #### C MP, SCAN CBC #### [facility] [address] [place] [address] [place] Creatinine [Mass/volume] in Serum or PlasmaOrdered By: Percy Herrera on 01-09-2024 Creatinine [Mass/Vol] 5.40 mg/dL 0.70-1.30 [facility] Comment on above: Delta: 13.26 on 12/14 ECG 12 lead ECGon 01-09-2024 ECG 12 lead ECG [facility] [place] [address] [place] [address] Electrocardiograph Report Signed Patient: Leander Massey MR#: [id number] 2 : 1970 Acct:[id number] Age/Sex: 53 / M ADM Date: 01/08/24 Loc: Room: [address] [place] [address] Type: ADM IN Attending Dr: Percy Herrera MD Ordering Provider: Percy Herrera MD Date of Service: 01/08/24 ECG/ECG 12 lead ECG: hyperkalemia Copies to: Test Reason : Blood Pressure : / mmHG Vent. Rate : 092 BPM Atrial Rate : 092 BPM P-R Int : 182 ms QRS Dur : 084 ms QT Int : 358 ms P-R-T Axes : 085 -14 090 degrees QTc Int : 442 ms Normal sinus rhythm Possible Left atrial enlargement Borderline ECG When compared with ECG of 07-JAN-2024 17:34, (Unconfirmed) Right bundle branch block is no longer present Criteria for Lateral infarct are no longer present Confirmed by [facility] ([id number] on 01/09/2024 6:52:01 AM Referred By: Electronically Signed By:DUYEN SANDOVAL [facility] Transcribed By: MUS Signed By Luis Carlos Sandoval MD 01/09/24 0652 Normal [facility] Eosinophils Auto (Bld) [#/Vo l]Ordered By: Percy Herrera on 01-09-2024 Eosinophils (Bld) [#/Vol] 0.6 10*3/uL 0.0-0.45 [facility] Eosinophils/100 WBC Auto (Bl d)Ordered By: Percy Herrera on 01-09-2024 Eosinophils/100 WBC (Bld) 4.9 % . [facility] Erythrocyte distribution wid th Auto (RBC) [Ratio]Ordered By: Percy Herrera on 01-09-2024 Erythrocyte distribution width (RBC) [Ratio] 17.7 % 12.0-14.8 [facility] Globulin Calc (S) [Mass/Vol] Ordered By: Percy Herrera on 01-09-2024 Globulin (S) [Mass/Vol] 2.6 g/dL [facility] Glucose [Mass/volume] in Ser um or PlasmaOrdered By: Percy Herrera on 01-09-2024 Glucose [Mass/Vol] 77 mg/dL 70-100 [facility] Comment on above: ADA recommended refe rence rangeRandom Glucose Reference Range is dependent on time and content of last meal. Glucose of more than 200 mg/dL in a nonstressed, ambulatory subject supports the diagnosis of Diabetes Mellitus. Hematocrit Auto (Bld) [Volum e fraction]Ordered By: Percy Herrera on 01-09-2024 Hematocrit (Bld) [Volume fraction] 26.1 % 38.8-50.0 [facility] Hemoglobin [Mass/volume] in BloodOrdered By: Percy Herrera on 01-09-2024 Hemoglobin (Bld) [Mass/Vol] 8.7 g/dL 13.0-17.0 [facility] Leukocytes [#/volume] correc bernardo for nucleated erythrocytes in Blood by Automated counOrdered By: Percy Herrera on 01-09-2024 WBC corrected for nucl RBC Auto (Bld) [#/Vol] 11.3 10*3/uL 4.1-10.5 [facility] Lymphocytes Auto (Bld) [#/Vo l]Ordered By: Percy Herrera on 01-09-2024 Lymphocytes (Bld) [#/Vol] 0.8 10*3/uL 1.00-4.8 [facility] Lymphocytes/100 WBC Auto (Bl d)Ordered By: Percy Herrera on 01-09-2024 Lymphocytes/100 WBC (Bld) 7.2 % . [facility] MCH Auto (RBC) [Entitic mass ]Ordered By: Percy Herrera on 01-09-2024 MCH (RBC) [Entitic mass] 37.3 pg 27.5-35.2 [facility] MCHC Auto (RBC) [Mass/Vol]Or dered By: Percy Herrera on 01-09-2024 MCHC (RBC) [Mass/Vol] 33.4 g/dL 32.5-35.6 [facility] MCV Auto (RBC) [Entitic vol] Ordered By: Percy Herrera on 01-09-2024 MCV (RBC) [Entitic vol] 111.7 fL 83.5-101 [facility] Magnesiumon 01-09-2024 Magnesium [Mass/Vol] 1.9 mg/dL Normal 1.9-2.7 [facility] Comment on above: Result Comment: PERF ORMED BY: [facility] [address] [place] [address] PATHOLOGIST [employer] JM BERRY M.D. Performed By: #### H S TROP #### [facility] [address] [id number] [facility] Magnesium [Mass/volume] in S timi or PlasmaOrdered By: Percy Herrera on 01-09-2024 Magnesium [Mass/Vol] 1.9 mg/dL 1.9-2.7 [facility] Monocytes Auto (Bld) [#/Vol] Ordered By: Percy Herrera on 01-09-2024 Monocytes (Bld) [#/Vol] 0.6 10*3/uL 0.0-0.8 [facility] Monocytes/100 WBC Auto (Bld) Ordered By: Percy Herrera on 01-09-2024 Monocytes/100 WBC (Bld) 5.4 % . [facility] Neutrophils Auto (Bld) [#/Vo l]Ordered By: Percy Herrera on 01-09-2024 Neutrophils (Bld) [#/Vol] 9.2 10*3/uL 1.8-7.7 [facility] Neutrophils/100 WBC Auto (Bl d)Ordered By: Percy Herrera on 01-09-2024 Neutrophils/100 WBC (Bld) 81.4 % . [facility] No Panel InformationOrdered By: Percy Herrera on 01-09-2024 Estimated GFR (CKD-EPI) 11.747 mL/Min [facility] Creatinine Clearance (Chem 17.89 [facility] Nucleated erythrocytes [Pres ence] in Blood by Automated countOrdered By: Percy Herrera on 01-09-2024 Nucleated RBC Auto Ql (Bld) 0.2 /100{WBC} 0-0.5 [facility] Platelet mean volume Auto (B ld) [Entitic vol]Ordered By: Percy Herrera on 01-09-2024 Platelet mean volume (Bld) [Entitic vol] 8.4 fL 6.6-10.1 [facility] Platelets Auto (Bld) [#/Vol] Ordered By: Percy Herrera on 01-09-2024 Platelets (Bld) [#/Vol] 326 10*3/uL 150-450 [facility] Potassium [Moles/volume] in Serum or PlasmaOrdered By: Percy Herrera on 01-09-2024 Potassium [Moles/Vol] 3.5 mmol/L 3.5-5.1 [facility] Comment on above: Delta: 7.1 on Protein [Mass/volume] in Ser um or PlasmaOrdered By: Percy Herrera on 01-09-2024 Protein [Mass/Vol] 6.8 g/dL 6.4-8.9 [facility] RBC Auto (Bld) [#/Vol]Ordere d By: Percy Herrera on 01-09-2024 RBC (Bld) [#/Vol] 2.34 10*6/uL 3.90-5.60 [facility] Scan and CBCon 01-09-2024 Anisocytosis Ql (Bld) Moderate Normal [facility] Comment on above: Performed By: #### C MEET, BMP #### [facility] [address] [place] [address] [place] Basophils (Bld) [#/Vol] 0.0 10*3/uL Normal 0.0-0.2 [facility] Comment on above: Performed By: #### C MEET, BMP #### [facility] [address] [place] [address] [place] Basophils/100 WBC (Bld) 0.1 % Normal . [facility] Comment on above: Performed By: #### C BC, BMP #### [facility] [address] [place] [address] [place] Eosinophils (Bld) [#/Vol] 0.4 10*3/uL Normal 0.0-0.45 [facility] Comment on above: Performed By: #### C BC, BMP #### [facility] [address] [place] [address] [place] Eosinophils/100 WBC (Bld) 2.4 % Normal . [facility] Comment on above: Performed By: #### C BC, BMP #### [address] Erythrocyte distribution width (RBC) [Ratio] 18.1 % High 12.0-14.8 [facility] Comment on above: Performed By: #### C BC, BMP #### [address] Hematocrit (Bld) [Volume fraction] 26.7 % Low 38.8-50.0 [facility] Comment on above: Performed By: #### C BC, BMP #### [address] Hemoglobin (Bld) [Mass/Vol] 8.7 g/dL Low 13.0-17.0 [facility] Comment on above: Performed By: #### C BC, BMP #### [address] Lymphocytes (Bld) [#/Vol] 0.5 10*3/uL Low 1.00-4.8 [facility] Comment on above: Performed By: #### C BC, BMP #### [address] Lymphocytes/100 WBC (Bld) 2.6 % Normal . [facility] Comment on above: Performed By: #### C BC, BMP #### [address] Macrocytosis Moderate Normal [facility] Comment on above: Performed By: #### C BC, BMP #### [address] MCH (RBC) [Entitic mass] 36.8 pg High 27.5-35.2 [facility] Comment on above: Performed By: #### C BC, BMP #### [address] MCV (RBC) [Entitic vol] 112.7 fL High 83.5-101 [facility] Comment on above: Performed By: #### C BC, BMP #### [address] Mean Corpuscular HGB Conc 32.7 g/dL Normal 32.5-35.6 [facility] Comment on above: Performed By: #### C BC, BMP #### [facility] [address] Monocytes (Bld) [#/Vol] 0.6 10*3/uL Normal 0.0-0.8 [facility] Comment on above: Performed By: #### C BC, BMP #### [facility] [address] Monocytes/100 WBC (Bld) 3.2 % Normal . [facility] Comment on above: Performed By: #### C BC, BMP #### [address] Neutrophils (Bld) [#/Vol] 16.2 10*3/uL High 1.8-7.7 [facility] Comment on above: Performed By: #### C BC, BMP #### [address] Neutrophils/100 WBC (Bld) 91.7 % Normal . [facility] Comment on above: Performed By: #### C BC, BMP #### [address] NRBC% 0.0 /100{WBC} Normal 0-0.5 [facility] Comment on above: Performed By: #### C BC, BMP #### [address] Platelet Estimate Normal Normal Normal [facility] Comment on above: Performed By: #### C BC, BMP #### [address] Platelet mean volume (Bld) [Entitic vol] 8.1 fL Normal 6.6-10.1 [facility] Comment on above: Performed By: #### C BC, BMP #### [address] Platelet Morphology Normal Normal Normal [facility] Comment on above: Result Comment: PERF ORMED BY: [place] [address] PATHOLOGIST [employer] JM BERRY M.D. Performed By: #### C BC, BMP #### [facility] [address] Platelets (Bld) [#/Vol] 328 10*3/uL Normal 150-450 [facility] Comment on above: Performed By: #### C BC, BMP #### [facility] [address] Polychromasia Moderate Normal [facility] Comment on above: Performed By: #### C BC, BMP #### [facility] [address] RBC (Bld) [#/Vol] 2.37 10*6/uL Low 3.90-5.60 [facility] Comment on above: Performed By: #### C BC, BMP #### [address] Schistocytes Slight Normal [facility] Comment on above: Performed By: #### C BC, BMP #### [address] WBC (Bld) [#/Vol] 17.7 10*3/uL High 4.1-10.5 [facility] Comment on above: Performed By: #### C BC, BMP #### [address] Serum or plasma albumin/glob ulin mass ratioOrdered By: Percy Herrera on 01-09-2024 Albumin/Globulin [Mass ratio] 1.6 {ratio} [facility] Serum or plasma anion gap de terminationOrdered By: Percy Herrera on 01-09-2024 Anion gap [Moles/Vol] 15.6 mmol/L 6.0-15.0 [facility] Sodium [Moles/volume] in Ser um or PlasmaOrdered By: Percy Herrera on 01-09-2024 Sodium [Moles/Vol] 136 mmol/L 136-145 [facility] Urea nitrogen [Mass/volume] in Serum or PlasmaOrdered By: Percy Herrera on 01-09-2024 Urea nitrogen [Mass/Vol] 21 mg/dL 7-25 [facility] Comment on above: Delta: 67 on 4 WBC Auto (Bld) [#/Vol]Ordere d By: Percy Herrera on 01-09-2024 WBC (Bld) [#/Vol] 11.3 10*3/uL 4.1-10.5 [facility] Anisocytosis LM Ql (Bld)Orde red By: Percy Herrera on 01-08-2024 Anisocytosis Ql (Bld) Moderate [facility] Macrocytes LM Ql (Bld)Ordere d By: Percy Herrera on 01-08-2024 Macrocytes Ql (Bld) Moderate [facility] Platelet adequacy [Presence] in Blood by Light microscopyOrdered By: Percy Herrera on 01-08-2024 Platelets LM Ql (Bld) Normal Normal [facility] Platelet morphology finding [Identifier] in BloodOrdered By: Percy Herrera on 01-08-2024 Platelet morphology finding Nom (Bld) Normal Normal [facility] Polychromasia [Presence] in Blood by Light microscopyOrdered By: Percy Herrera on 01-08-2024 Polychromasia LM Ql (Bld) Moderate [facility] RBC morphologyOrdered By: Armin Herrera on 01-08-2024 RBC morphology finding Nom (Bld) N/A [facility] Schistocytes [Presence] in B lood by Light microscopyOrdered By: Percy Herrera on 01-08-2024 Schistocytes LM Ql (Bld) Slight [facility] Follow-Upon 01-04-2024 Follow-Up Normal [facility] POCT GLUCOSE METER UNSOLICIT ED RESULTSon 12-28-2023 Glucose [Mass/Vol] 89 mg/dL Normal 70-105 [facility] Comment on above: Order Comment: Waive d Testing in the ED is performed under the ED CLIA certificate #[id number]. Result Comment: epit [id number] Performed By: #### L [id number] ####[facility] (BEAKER)[address] [place] [address] 36on 12-25-2023 36 Normal [facility] 36 Normal [facility] Orders Onlyon 12-21-2023 Orders Only Normal [facility] APTTon 12-19-2023 ACTIVATED PARTIAL THROMBOPLASTIN TIME IN PPP BY COAGULATION ASSAY 28.9 Seconds Normal 25.0-35.0 [facility] Comment on above: Result Comment: Clin ical significance of the APTT is questionable in the presence of heparin. Performed By: #### L [id number] ####[facility] (In[employer]itae)[address] [place] [address] CBC WITH AUTO DIFFERENTIALon 12-19-2023 Erythrocyte distribution width (RBC) [Ratio] 19.8 % High 11.5-15.0 [facility] Comment on above: Performed By: #### L [id number] ####[facility] ([employer])[address] [place] [address] ERYTHROCYTE MEAN CORPUSCULAR HEMOGLOBIN CONCENTRATION (G/DL) BY AUTOMATED 34.9 g/dL Normal 32.0-35.0 [facility] Comment on above: Performed By: #### L [id number] ####[facility] (BEWaveRx)[address] [place] [address] Hematocrit (Bld) [Volume fraction] 23.5 % Low 39.0-55.0 [facility] Comment on above: Performed By: #### L [id number] ####[facility] ([facility])[address] [place] [address] Hemoglobin (Bld) [Mass/Vol] 8.2 g/dL Low 13.0-17.0 [facility] Comment on above: Performed By: #### L [id number] ####[facility] ([facility])[address] [place] [address] MCH (RBC) [Entitic mass] 38.3 pg High 27.0-33.0 [facility] Comment on above: Performed By: #### L [id number] ####[facility] ([facility])[address] [place] [address] MCV (RBC) [Entitic vol] 109.8 fL High 82.0-98.0 [facility] Comment on above: Performed By: #### L [id number] ####[facility] ([facility])[address] [place] [address] NRBC (PER 100 WBCS) BY AUTOMATED COUNT 0.2 % High 0 [facility] Comment on above: Performed By: #### L [id number] ####[facility] ([facility])[address] [place], [place] [address] PLATELETS (10*3/UL) IN BLOOD AUTOMATED COUNT 158 10*3/uL Normal 150-400 [facility] Comment on above: Performed By: #### L [id number] ####[facility] ([facility])[address] [place] [address] RBC (Bld) [#/Vol] 2.14 10*6/uL Low 4.20-5.70 [facility] Comment on above: Performed By: #### L [id number] ####[facility] ([facility])[address] [place], [place] [address] WBC (Bld) [#/Vol] 8.67 10*3/uL Normal 4.00-10.60 [facility] Comment on above: Performed By: #### L [id number] ####[facility] ([facility])[address] [place] [address] COMPREHENSIVE METABOLIC PANE Fletcher 12-19-2023 Albumin [Mass/Vol] 4.2 g/dL Normal 3.5-5.7 [facility] Comment on above: Performed By: #### L [id number] ####[facility] ([facility])[address] [place] [address] ALP [Catalytic activity/Vol] 69 U/L Normal 34-104 [facility] Comment on above: Performed By: #### L [id number] ####[facility] ([facility])[address] [place] [address] ALT [Catalytic activity/Vol] 7 U/L Normal 7-52 [facility] Comment on above: Performed By: #### L [id number] ####[facility] (BEAKER)[address] [place] [address] Anion gap [Moles/Vol] 14 mmol/L Normal 7-20 [facility] Comment on above: Performed By: #### L [id number] ####[facility] (BEAKER)[address] [place] [address] AST [Catalytic activity/Vol] 10 U/L Low 13-39 [facility] Comment on above: Performed By: #### L [id number] ####[facility] (BEAKER)[address] [place] [address] Bilirubin [Mass/Vol] 0.5 mg/dL Normal 0.3-1.0 [facility] Comment on above: Performed By: #### L [id number] ####[facility] (BEAKER)[address] [place] [address] Calcium [Mass/Vol] 8.8 mg/dL Normal 8.6-10.3 [facility] Comment on above: Performed By: #### L [id number] ####[facility] (BEAKER)[address] [place] [address] Chloride [Moles/Vol] 94 mmol/L Low 98-107 [facility] Comment on above: Performed By: #### L [id number] ####[facility] (BEAKER)[address] [place] [address] CO2 [Moles/Vol] 31 mmol/L Normal 21-31 [facility] Comment on above: Performed By: #### L [id number] ####[facility] (BEAKER)[address] [place] [address] Creatinine [Mass/Vol] 8.02 mg/dL High 0.70-1.30 [facility] Comment on above: Performed By: #### L [id number] ####[facility] (BEAKER)[address] [place] [address] GLOMERULAR FILTRATION RATE ML/MIN/1.73 SQ M.PREDICTED 7.3 mL/min/1.73m*2 Low >60.0 [facility] Comment on above: Result Comment: [facility]???s estimated glomerular filtration rate (eGFR) will no longer include consideration of race in its calculation. The National Kid[employer] Foundation???s eGFR Task Force developed new recommendations for the estimation of the glomerular filtration rate in the [place] They recommend immediate implementation of the new equation refit without the race variable in all laboratories because the calculation does not include race. In addition to not including race in the calculation and reporting, it included diversity in its development, and has acceptable performance characteristics and potential consequences that do not disproportionately affect any one group of individuals. Performed By: #### L [id number] ####[facility] ([facility])[address] [place] [address] Glucose [Mass/Vol] 80 mg/dL Normal 70-100 [facility] Comment on above: Performed By: #### L [id number] ####[facility] ([facility])[address] [place] [address] Potassium [Moles/Vol] 4.4 mmol/L Normal 3.5-5.1 [facility] Comment on above: Performed By: #### L [id number] ####[facility] ([facility])[address] [place] [address] Protein [Mass/Vol] 6.6 g/dL Normal 6.0-8.3 [facility] Comment on above: Performed By: #### L [id number] ####[facility] ([facility])[address] [place] [address] Performed By: #### L [id number] ####[facility] ([facility])[address] [place] [address] Sodium [Moles/Vol] 135 mmol/L Low 136-145 [facility] Comment on above: Performed By: #### L [id number] ####[facility] ([facility])[address] [place] [address] Urea nitrogen [Mass/Vol] 33 mg/dL High 7-25 [facility] Comment on above: Performed By: #### L [id number] ####[facility] [place] [address] UREA NITROGEN/CREATININE (MASS RATIO) IN SER/PLAS 4.1 Normal [facility] Comment on above: Performed By: #### L [id number] ####[facility] ([facility])[address] [place] [address] FERRITINon 12-19-2023 FERRITIN (NG/ML) IN SER/PLAS 622.0 ng/mL High 24.0-336.0 [facility] Comment on above: Performed By: #### L [id number] ####[facility] ([facility])[address] [place] [address] FOLATEon 12-19-2023 FOLATE (NG/ML) IN SER/PLAS 6.68 ng/mL Normal 6.6-1000 [facility] Comment on above: Performed By: #### L [id number] ####[facility] ([facility])[address] [place] [address] HAPTOGLOBINon 12-19-2023 Magnesium [Mass/Vol] 159 mg/dL Normal 26-164 [facility] Comment on above: Performed By: #### L [id number] ####[facility] ([facility])[address] [place] [address] HEMOGLOBIN A1Con 12-19-2023 Glucose [Mass/Vol] 105 mg/dL Normal [facility] Comment on above: Order Comment: NO VA RIANT Performed By: #### L [id number] ####[facility] ([facility] [place] [address] HbA1c (Bld) [Mass fraction] 5.3 % Normal 4.0-6.0 [facility] Comment on above: Order Comment: NO VA RIANT Performed By: #### L [id number] ####[facility] ([facility])[address] [place] [address] IMMUNOFIXATION ELECTROPHORES Hanna 12-19-2023 IMMUNOFIXATION ELECTROPHORESIS 1 See attached report. Normal [facility] Comment on above: Performed By: #### L [id number] ####[facility] (BEAKER)[address] [place] [address] Magnesium [Mass/Vol] 798 mg/dL Normal 591-1540 [facility] Comment on above: Performed By: #### L [id number] ####[facility] (BEAKER)[address] [place] [address] Magnesium [Mass/Vol] 140 mg/dL Normal 60-413 [facility] Comment on above: Performed By: #### L [id number] ####[facility] (BEAKER)[address] [place] [address] Magnesium [Mass/Vol] 32.4 mg/dL Low 54-285 [facility] Comment on above: Performed By: #### L [id number] ####[facility] (BEAKER)[address] [place] [address] IRON AND TIBCon 12-19-2023 IRON (UG/DL) IN SER/PLAS 104 ug/dL Normal 50-212 [facility] Comment on above: Performed By: #### L [id number] ####[facility] (BEAKER)[address] [place] [address] IRON BINDING CAPACITY (UG/DL) IN SER/PLAS 275 ug/dL Normal 250-[address] [facility] Comment on above: Performed By: #### L [id number] ####[facility] (BEAKER)[address] [place] [address] IRON BINDING CAPACITY.UNSATURATED (UG/DL) IN SER/PLAS 171.0 ug/dL Normal 155.0-355.[address] [facility] Comment on above: Performed By: #### L [id number] ####[facility] (BEAKER)[address] [place] [address] IRON SATURATION (%) IN SER/PLAS 38 % Normal 20-50 [facility] Comment on above: Performed By: #### L [id number] ####[facility] (BEAKER)[address] [place] [address] KAPPA / LAMBDA LIGHT CHAINS, FREEon 12-19-2023 IMMUNOGLOBULIN LIGHT CHAINS KAPPA/LAMBDA (MASS RATIO) IN SERUM 2.38 High 0.26-1.65 [facility] Comment on above: Result Comment: Test Performed by [employer] [facility] [place] [address] - Released 12/19/2023 20:00 Performed By: #### L [id number] ####[facility] [id number] [place] [address] IMMUNOGLOBULIN LIGHT CHAINS.KAPPA (MG/DL) IN SERUM 166.8 mg/L High 3.7-19.4 [facility] Comment on above: Result Comment: Unit s and Decimal updated 04/23/2023 Performed By: #### L [id number] ####[facility] [id number] [place] [address] IMMUNOGLOBULIN LIGHT CHAINS.LAMBDA (MG/DL) IN SERUM 70.1 mg/L High 5.7-26.3 [facility] Comment on above: Result Comment: Unit s and Decimal updated 04/23/2023 Performed By: #### L [id number] ####[facility] [employer] [id number] [place] [address] LACTATE DEHYDROGENASEon LACTATE DEHYDROGENASE (U/L) IN SER/PLAS BY LAC->PYR RXN 237 U/L Normal 140-271 [facility] Comment on above: Performed By: #### L [id number] ####[facility] (BEAKER)[address] [place] [address] Labon 12-19-2023 Lab Normal [facility] MANUAL DIFFERENTIALon 2023 ANISOCYTOSIS PRESENCE IN BLOOD BY LIGHT MICROSCOPY Marked Normal [facility] Comment on above: Performed By: #### L [id number] ####[facility] (BEAKER)[address] [place] [address] BASOPHILS (10*3/UL) IN BLOOD BY CALCULATION 0.04 10*3/uL Normal 0.00-0.20 [facility] Comment on above: Performed By: #### L [id number] ####[facility] (BEAKER)[address] [place] [address] BASOPHILS/100 LEUKOCYTES IN BLOOD BY AUTOMATED COUNT 0.5 % Normal 0.0-1.0 [facility] Comment on above: Performed By: #### L [id number] ####[facility] (BEAKER)[address] [place] [address] ELLIPTOCYTES IN BLOOD BY LIGHT MICROSCOPY Slight Normal [facility] Comment on above: Performed By: #### L [id number] ####[facility] [place] [address] EOSINOPHILS (10*3/UL) IN BLOOD BY CALCULATION 1.32 10*3/uL High 0.00-0.50 [facility] Comment on above: Performed By: #### L [id number] ####[facility] (BEAKER)[address] [place] [address] EOSINOPHILS/100 LEUKOCYTES IN BLOOD BY AUTOMATED COUNT 15.2 % High 0.0-6.0 [facility] Comment on above: Performed By: #### L [id number] ####[facility] (BEAKER)[address] [place] [address] HYPOCHROMIA (PRESENCE) IN BLOOD BY LIGHT MICROSCOPY Slight Normal [facility] Comment on above: Performed By: #### L [id number] ####[facility] (BEAKER)[address] [place] [address] IMMATURE GRANULOCYTES (10*3/UL) IN BLOOD BY CALCULATION 0.10 10*3/uL Normal 0.00-0.20 [facility] Comment on above: Performed By: #### L [id number] ####[facility] (BEAKER)[address] [place] [address] IMMATURE GRANULOCYTES/100 LEUKOCYTES IN BLOOD BY AUTOMATED COUNT 1.2 % High 0.0-1.0 [facility] Comment on above: Performed By: #### L [id number] ####[facility] (BEAKER)[address] [place] [address] LYMPHOCYTES (10*3/UL) IN BLOOD BY CALCULATION 0.91 10*3/uL Low 1.20-4.00 [facility] Comment on above: Performed By: #### L [id number] ####[facility] ([facility])[address] [place] [address] LYMPHOCYTES/100 LEUKOCYTES IN BLOOD BY AUTOMATED COUNT 10.5 % Low 20.0-45.0 [facility] Comment on above: Performed By: #### L [id number] ####[facility] ([facility])[address] [place] [address] MACROCYTES (PRESENCE) IN BLOOD BY LIGHT MICROSCOPY Moderate Normal [facility] Comment on above: Performed By: #### L [id number] ####[facility] ([facility])[address] [place] [address] MONOCYTES (10*3/UL) IN BLOOD BY CALCUATION 0.51 10*3/uL Normal 0.10-1.[address] [facility] Comment on above: Performed By: #### L [id number] ####[facility] ([facility])[address] [place] [address] MONOCYTES/100 LEUKOCYTES IN BLOOD BY AUTOMATED COUNT 5.9 % Normal 5.0-12.0 [facility] Comment on above: Performed By: #### L [id number] ####[facility] ([facility])[address] [place] [address] NEUTROPHILS (10*3/UL) IN BLOOD BY CALCULATION 5.8 10*3/uL Normal 1.6-7.6 [facility] Comment on above: Performed By: #### L [id number] ####[facility] ([facility])[address] [place] [address] NEUTROPHILS/100 LEUKOCYTES IN BLOOD BY AUTOMATED COUNT 66.7 % Normal 40.0-72.0 [facility] Comment on above: Performed By: #### L [id number] ####[facility] ([facility])[address] [place] [address] OVALOCYTES PRESENCE IN BLOOD BY LIGHT MICROSCOPY Moderate Normal [facility] Comment on above: Performed By: #### L [id number] ####[facility] [place] [address] POIKILOCYTOSIS (PRESENCE) IN BLOOD BY LIGHT MICROSCOPY Moderate Normal [facility] Comment on above: Performed By: #### L [id number] ####[facility] ([facility])[address] [place] [address] POLYCHROMASIA IN BLOOD BY LIGHT MICROSCOPY Slight Normal [facility] Comment on above: Performed By: #### L [id number] ####[facility] ([facility])[address] [place] [address] SPHEROCYTES PRESENCE IN BLOOD BY LIGHT MICROSCOPY Moderate Normal [facility] Comment on above: Performed By: #### L [id number] ####[facility] ([facility])[address] [place] [address] MRSA/MSSA DNA NASALon 2023 MRSA DNA Negative Normal Negative [facility] Comment on above: Order Comment: Testi ng methodology is an automated qualitative in vitro diagnostic test for the directdetection and differentiation of Staphylococcus aureus (SA) DNA and methicillin-resistant Staphylococcus aureus (MRSA) DNA from nasal swabs in patients at risk for nasal colonization. The test utilizes real-time polymerase chain reaction (PCR) for the amplification of MRSA/SA DNA and fluorogenic target-specific hybridization probes for the detection of the amplified DNA. A negative result does not preclude nasal colonization. Performed By: #### L [id number] ####[facility] ([facility])[address] [place] [address] MSSA DNA Negative Normal Negative [facility] Comment on above: Order Comment: Testi ng methodology is an automated qualitative in vitro diagnostic test for the directdetection and differentiation of Staphylococcus aureus (SA) DNA and methicillin-resistant Staphylococcus aureus (MRSA) DNA from nasal swabs in patients at risk for nasal colonization. The test utilizes real-time polymerase chain reaction (PCR) for the amplification of MRSA/SA DNA and fluorogenic target-specific hybridization probes for the detection of the amplified DNA. A negative result does not preclude nasal colonization. Performed By: #### L [id number] ####[facility] (BEAKER)[address] [place] [address] Orders Onlyon 12-19-2023 Orders Only Normal [facility] PROTEIN ELECTROPHORESIS, SER UMon 12-19-2023 PROTEIN FRACTION (INTERPRETATION) IN SER/PLAS BY ELECTROPHORESIS Please see attached report. Normal [facility] Comment on above: Performed By: #### L [id number] ####[facility] (BEAKER)[address] [place] [address] PROTIME-INRon 12-19-2023 INR IN PPP BY COAGULATION ASSAY 0.98 Normal 0.90-1.10 [facility] Comment on above: Result Comment: [facility] P RECOMMENDED INR FOR WARFARIN THERAPY CONDITION INRPROPHYLAXIS OF VENOUS THROMBOSIS 2-3(HIGH-RISK SURGERY)TREATMENT OF VENOUS THROMBOSIS 2-3TREATMENT OF PULMONARY EMBOLISM 2-3PREVENTION OF SYSTEMIC EMBOLISM: 2-3 ACUTE MYOCARDIAL INFARCTION TISSUE HEART VALVES VALVULAR HEART DISEASE ATRIAL FIBRILLATION RECURRENT SYSTEMIC EMBOLISMMECHANICAL HEART VALVE 2.5-3.5 FROM: ORAL ANTICOAGULANTS. MECHANISM OF ACTION, CLINICAL EFFECTIVENESS, AND OPTIMAL THERAPEUTIC RANGE. CHEST 1995;108:231S-246S. Performed By: #### L [id number] ####[facility] (BEAKER)[address] [place] [address] PROTHROMBIN TIME (PT) IN PPP BY COAGULATION ASSAY 13.0 Seconds Normal 12.3-14.8 [facility] Comment on above: Performed By: #### L [id number] ####[facility] (BEAKER)[address] [place] [address] RETICULOCYTE PANELon 024 HEMOGLOBIN (PG) IN RETICULOCYTES 42.7 pg High 28.0-36.0 [facility] Comment on above: Performed By: #### L [id number] ####[facility] ([facility])[address] [place] [address] IMMATURE RETICULOCYTE FRACTION (%) 27.0 % High 2-16 [facility] Comment on above: Performed By: #### L [id number] ####[facility] ([facility])[address] [place] [address] RETICULOCYTES (10*6/UL) IN BLOOD 0.0629 10*6/uL Normal 0.0250-0.1000 [facility] Comment on above: Performed By: #### L [id number] ####[facility] ([facility])[address] [place] [address] Reticulocytes/100 RBC (Bld) 2.94 % High 0.50-1.80 [facility] Comment on above: Performed By: #### L [id number] ####[facility] ([facility])[address] [place] [address] TSH3 REFLEX TO FT4on 024 THYROTROPIN (MIU/L) IN SER/PLAS BY DETECTION LIMIT <= 0.05 MIU/L 4.19 mIU/L Normal 0.34-5.60 [place] [facility] Comment on above: Performed By: #### L [id number] ####[facility] ([facility])[address] [place] [address] TYPE AND SCREENon 12-19-2023 AB SCREEN Negative Normal [facility] Comment on above: Performed By: #### L [id number] ####[facility] BLOOD BANK, ABO group Nom (Bld) O Normal [facility] Comment on above: Performed By: #### L [id number] ####[facility] BLOOD [facility], RH TYPE IN BLOOD Positive Normal [facility] Comment on above: Performed By: #### L [id number] ####[facility] BLOOD BANK, VITAMIN B12on 12-19-2023 Cobalamin (Vitamin B12) [Mass/Vol] 72 pg/mL Low 180-914 [facility] Comment on above: Result Comment: REFE RENCE RANGES:180-914 pg/mL Elekpb732-535 pg/mL Indeterminate<145 pg/mL Deficient Performed By: #### L [id number] ####[facility] ([facility])[address] [place] [address] 36on 12-18-2023 36 TC contacted patient and got updates on patient's recent heart cath. Patient scheduled for a double bypass surgery 12/26/2023. Patient's re-eval appointment canceled for tomorrow, to be rescheduled after patient's surgery. Juliana Cerda, BRET Normal [facility] Telemedicineon 12-18-2023 Telemedicine [facility] 36on 12-14-2023 36 Stat PET- Auth #[id number] Dates valid through- 12/14/23- [facility]- [id number] Normal [facility] APTTon 12-14-2023 ACTIVATED PARTIAL THROMBOPLASTIN TIME IN PPP BY COAGULATION ASSAY 28.2 Seconds Normal 25.0-35.0 [facility] Comment on above: Result Comment: Clin ical significance of the APTT is questionable in the presence of heparin. Performed By: #### L [id number] ####[facility] ([facility])[address] [place] [address] CBC WITH AUTO DIFFERENTIALon 12-14-2023 Erythrocyte distribution width (RBC) [Ratio] 18.9 % High 11.5-15.0 [facility] Comment on above: Performed By: #### L [id number] ####[facility] ([facility])[address] [place] [address] ERYTHROCYTE MEAN CORPUSCULAR HEMOGLOBIN CONCENTRATION (G/DL) BY AUTOMATED 33.8 g/dL Normal 32.0-35.0 [facility] Comment on above: Performed By: #### L [id number] ####[facility] ([facility])[address] [place] [address] Hematocrit (Bld) [Volume fraction] 23.7 % Low 39.0-55.0 [facility] Comment on above: Performed By: #### L [id number] ####[facility] ([facility])[address] [place] [address] Hemoglobin (Bld) [Mass/Vol] 8.0 g/dL Low 13.0-17.0 [facility] Comment on above: Performed By: #### L [id number] ####[facility] ([facility])[address] [place] [address] MCH (RBC) [Entitic mass] 35.7 pg High 27.0-33.0 [facility] Comment on above: Performed By: #### L [id number] ####[facility] ([facility])[address] [place] [address] MCV (RBC) [Entitic vol] 105.8 fL High 82.0-98.0 [facility] Comment on above: Performed By: #### L [id number] ####[facility] ([facility])[address] [place] [address] NRBC (PER 100 WBCS) BY AUTOMATED COUNT 0.3 % High 0 [facility] Comment on above: Performed By: #### L [id number] ####[facility] ([facility])[address] [place] [address] PLATELETS (10*3/UL) IN BLOOD AUTOMATED COUNT 109 10*3/uL Low 150-400 [facility] Comment on above: Performed By: #### L [id number] ####[facility] ([facility])[address] [place] [address] RBC (Bld) [#/Vol] 2.24 10*6/uL Low 4.20-5.70 [facility] Comment on above: Performed By: #### L [id number] ####[facility] ([facility])[address] [place] [address] WBC (Bld) [#/Vol] 7.86 10*3/uL Normal 4.00-10.60 [facility] Comment on above: Performed By: #### L [id number] ####[facility] ([facility] [place] [address] COMPREHENSIVE METABOLIC PANE Fletcher 12-14-2023 Albumin [Mass/Vol] 4.0 g/dL Normal 3.5-5.7 [facility] Comment on above: Performed By: #### L [id number] ####[facility] ([facility])[address] [place] [address] ALP [Catalytic activity/Vol] 65 U/L Normal 34-104 [facility] Comment on above: Performed By: #### L [id number] ####[facility] ([facility])[address] [place] [address] ALT [Catalytic activity/Vol] 7 U/L Normal 7-52 [facility] Comment on above: Performed By: #### L [id number] ####[facility] ([facility])[address] [place] [address] Anion gap [Moles/Vol] 14 mmol/L Normal 7-20 [facility] Comment on above: Performed By: #### L [id number] ####[facility] ([facility])[address] [place] [address] AST [Catalytic activity/Vol] 10 U/L Low 13-39 [facility] Comment on above: Performed By: #### L [id number] ####[facility] ([facility])[address] [place] [address] Bilirubin [Mass/Vol] 0.5 mg/dL Normal 0.3-1.0 [facility] Comment on above: Performed By: #### L [id number] ####[facility] ([facility] [place] [address] Calcium [Mass/Vol] 9.2 mg/dL Normal 8.6-10.3 [facility] Comment on above: Performed By: #### L [id number] ####[facility] ([facility] [place] [address] Chloride [Moles/Vol] 94 mmol/L Low 98-107 [facility] Comment on above: Performed By: #### L [id number] ####[facility] ([facility])[address] [place] [address] CO2 [Moles/Vol] 28 mmol/L Normal 21-31 [facility] Comment on above: Performed By: #### L [id number] ####[facility] ([facility])[address] [place] [address] Creatinine [Mass/Vol] 6.89 mg/dL High 0.70-1.30 [facility] Comment on above: Performed By: #### L [id number] ####[facility] ([facility])[address] [place] [address] GLOMERULAR FILTRATION RATE ML/MIN/1.73 SQ M.PREDICTED 8.8 mL/min/1.73m*2 Low >60.0 [facility] Comment on above: Result Comment: [facility]???s estimated glomerular filtration rate (eGFR) will no longer include consideration of race in its calculation. The [employer]???s eGFR Task Force developed new recommendations for the estimation of the glomerular filtration rate in the [place] They recommend immediate implementation of the new equation refit without the race variable in all laboratories because the calculation does not include race. In addition to not including race in the calculation and reporting, it included diversity in its development, and has acceptable performance characteristics and potential consequences that do not disproportionately affect any one group of individuals. Performed By: #### L [id number] ####[facility] ([facility] [place] [address] Glucose [Mass/Vol] 160 mg/dL High 70-100 [facility] Comment on above: Performed By: #### L [id number] ####[facility] ([facility])[address] [place] [address] Potassium [Moles/Vol] 4.5 mmol/L Normal 3.5-5.1 [facility] Comment on above: Performed By: #### L [id number] ####[facility] ([facility] [place] [address] Protein [Mass/Vol] 6.6 g/dL Normal 6.0-8.3 [facility] Comment on above: Performed By: #### L [id number] ####[facility] ([facility])[address] [place] [address] Sodium [Moles/Vol] 131 mmol/L Low 136-145 [facility] Comment on above: Performed By: #### L [id number] ####[facility] ([facility])[address] [place] [address] Urea nitrogen [Mass/Vol] 27 mg/dL High 7-25 [facility] Comment on above: Performed By: #### L [id number] ####[facility] ([facility])[address] [place] [address] UREA NITROGEN/CREATININE (MASS RATIO) IN SER/PLAS 3.9 Normal [facility] Comment on above: Performed By: #### L [id number] ####[facility] ([facility])[address] [place] [address] CONSULTon 12-14-2023 CONSULT Normal [facility] CTA ABDOMEN PELVIS W IV CONT RASTon 12-14-2023 CTA ABDOMEN PELVIS W IV CONTRAST Normal [facility] CTA CHEST W IV CONTRASTon CTA CHEST W IV CONTRAST Normal [facility] DSon 12-14-2023 DS Normal [facility] MAGNESIUMon 12-14-2023 Magnesium [Mass/Vol] 1.9 mg/dL Normal 1.9-2.7 [facility] Comment on above: Performed By: #### L [id number] ####[facility] ([facility])[address] [place] [address] MANUAL DIFFERENTIALon 2023 ANISOCYTOSIS PRESENCE IN BLOOD BY LIGHT MICROSCOPY Moderate Normal [facility] Comment on above: Performed By: #### L [id number] ####[facility] ([facility])[address] [place] [address] BASOPHILS (10*3/UL) IN BLOOD BY CALCULATION 0.01 10*3/uL Normal 0.00-0.20 [facility] Comment on above: Performed By: #### L [id number] ####[facility] ([facility] [place] [address] BASOPHILS/100 LEUKOCYTES IN BLOOD BY AUTOMATED COUNT 0.1 % Normal 0.0-1.0 [facility] Comment on above: Performed By: #### L [id number] ####[facility] ([facility])[address] [place] [address] EOSINOPHILS (10*3/UL) IN BLOOD BY CALCULATION 0.00 10*3/uL Normal 0.00-0.50 [facility] Comment on above: Performed By: #### L [id number] ####[facility] ([facility])[address] [place] [address] EOSINOPHILS/100 LEUKOCYTES IN BLOOD BY AUTOMATED COUNT 0.0 % Normal 0.0-6.0 [facility] Comment on above: Performed By: #### L [id number] ####[facility] ([facility])[address] [place] [address] IMMATURE GRANULOCYTES (10*3/UL) IN BLOOD BY CALCULATION 0.05 10*3/uL Normal 0.00-0.20 [facility] Comment on above: Performed By: #### L [id number] ####[facility] ([facility])[address] [place] [address] IMMATURE GRANULOCYTES/100 LEUKOCYTES IN BLOOD BY AUTOMATED COUNT 0.6 % Normal 0.0-1.0 [facility] Comment on above: Performed By: #### L [id number] ####[facility] ([facility] [place] [address] LYMPHOCYTES (10*3/UL) IN BLOOD BY CALCULATION 0.25 10*3/uL Low 1.20-4.00 [facility] Comment on above: Performed By: #### L [id number] ####[facility] (BEAKER)[address] [place] [address] LYMPHOCYTES/100 LEUKOCYTES IN BLOOD BY AUTOMATED COUNT 3.2 % Low 20.0-45.0 [facility] Comment on above: Performed By: #### L [id number] ####[facility] ([facility])[address] [place] [address] MONOCYTES (10*3/UL) IN BLOOD BY CALCUATION 0.06 10*3/uL Low 0.10-1.[address] [facility] Comment on above: Performed By: #### L [id number] ####[facility] ([facility])[address] [place] [address] MONOCYTES/100 LEUKOCYTES IN BLOOD BY AUTOMATED COUNT 0.8 % Low 5.0-12.0 [facility] Comment on above: Performed By: #### L [id number] ####[facility] ([facility])[address] [place] [address] NEUTROPHILS (10*3/UL) IN BLOOD BY CALCULATION 7.5 10*3/uL Normal 1.6-7.6 [facility] Comment on above: Performed By: #### L [id number] ####[facility] ([facility])[address] [place] [address] NEUTROPHILS/100 LEUKOCYTES IN BLOOD BY AUTOMATED COUNT 95.3 % High 40.0-72.0 [facility] Comment on above: Performed By: #### L [id number] ####[facility] ([facility])[address] [place] [address] POIKILOCYTOSIS (PRESENCE) IN BLOOD BY LIGHT MICROSCOPY Slight Normal [facility] Comment on above: Performed By: #### L [id number] ####[facility] ([facility])[address] [place] [address] POLYCHROMASIA IN BLOOD BY LIGHT MICROSCOPY Slight Normal [facility] Comment on above: Performed By: #### L [id number] ####[facility] [place] [address] PHOSPHORUSon 12-14-2023 Magnesium [Mass/Vol] 4.3 mg/dL Normal 2.5-5.0 [facility] Comment on above: Performed By: #### L [id number] ####[facility] (BEAKER)[address] [place] [address] PROTIME-INRon 12-14-2023 INR IN PPP BY COAGULATION ASSAY 1.04 Normal 0.90-1.10 [facility] Comment on above: Result Comment: [facility] P RECOMMENDED INR FOR WARFARIN THERAPY CONDITION INRPROPHYLAXIS OF VENOUS THROMBOSIS 2-3(HIGH-RISK SURGERY)TREATMENT OF VENOUS THROMBOSIS 2-3TREATMENT OF PULMONARY EMBOLISM 2-3PREVENTION OF SYSTEMIC EMBOLISM: 2-3 ACUTE MYOCARDIAL INFARCTION TISSUE HEART VALVES VALVULAR HEART DISEASE ATRIAL FIBRILLATION RECURRENT SYSTEMIC EMBOLISMMECHANICAL HEART VALVE 2.5-3.5 FROM: ORAL ANTICOAGULANTS. MECHANISM OF ACTION, CLINICAL EFFECTIVENESS, AND OPTIMAL THERAPEUTIC RANGE. CHEST 1995;108:231S-246S. Performed By: #### L [id number] ####[facility] (BEAKER)[address] [place] [address] PROTHROMBIN TIME (PT) IN PPP BY COAGULATION ASSAY 13.6 Seconds Normal 12.3-14.8 [facility] Comment on above: Performed By: #### L [id number] ####[facility] (BEAKER)[address] [place] [address] ANESon 12-13-2023 ANES Normal [facility] ARTERIAL BLOOD GAS WITH CO-O XIMETRYon 12-13-2023 Base excess Calc (Bld) [Moles/Vol] -0.4000 mmol/L Normal -2.0-3.0 [facility] Comment on above: Performed By: #### L [id number] ####[facility] RESPIRATORY [id number] [place] [address] [place] CARBOXYHEMOGLOBIN/HEMO GLOBIN TOTAL % IN BLOOD 6.3 % Critically high 0.0-3.0 [facility] Comment on above: Performed By: #### L [id number] ####[facility] RESPIRATORY [id number] [place] [address] [place] CO2 (Bld) [Partial pressure] 57 mm[Hg] Critically high 35-48 [facility] Comment on above: Performed By: #### L [id number] ####[facility] RESPIRATORY [id number] [place] [address] [place] DEOXYGENATED HEMOGLOBIN IN BLOOD 1.8 % Normal 1-[address] [facility] Comment on above: Performed By: #### L [id number] ####[facility] RESPIRATORY [id number] [facility] [address] [place] FIO2 50 % Normal [facility] Comment on above: Performed By: #### L [id number] ####[facility] RESPIRATORY [id number] [facility] [address] [place] HCO3 (Bld) [Moles/Vol] 26.8 mmol/L Normal 21.0-28.0 [facility] Comment on above: Performed By: #### L [id number] ####[facility] RESPIRATORY [id number] [facility] [facility] [address] [place] Hemoglobin (Bld) [Mass/Vol] 9.2 g/dL Low 11.7-17.4 [facility] Comment on above: Performed By: #### L [id number] ####[facility] RESPIRATORY [id number] [address] [facility] [address] [place] METHEMOGLOBIN/100 IN BLOOD 0.6 % Normal 0.0-1.5 [facility] Comment on above: Performed By: #### L [id number] ####[facility] RESPIRATORY [id number] [place] [address] [place] Oxygen (Bld) [Partial pressure] 94 mm[Hg] Normal 83-100 [facility] Comment on above: Performed By: #### L [id number] ####[facility] RESPIRATORY [id number] [place] [address] [facility] OXYGEN SATURATION (%) IN ARTERIAL BLOOD 98.1 % High 94.0-98.0 [facility] Comment on above: Performed By: #### L [id number] ####[facility] RESPIRATORY [id number] [place] [address] [facility] OXYGENATED HEMOGLOBIN IN BLOOD 91.3 % Normal 90.0-95.0 [facility] Comment on above: Performed By: #### L [id number] ####[facility] RESPIRATORY [id number] [place] [address] [place] PEEP 8 cmH2O Normal [facility] Comment on above: Performed By: #### L [id number] ####[facility] RESPIRATORY [id number] [place] [address] [facility] pH (Bld) 7.28 [pH] Low 7.35-7.45 [facility] Comment on above: Performed By: #### L [id number] ####[facility] RESPIRATORY [id number] [place] [address] [facility] PRESSURE SUPPORT 16 Normal [facility] Comment on above: Performed By: #### L [id number] ####[facility] RESPIRATORY [id number] [place] [address] [facility] SOURCE OF OXYGEN Bi-PAP Normal [facility] Comment on above: Performed By: #### L [id number] ####[facility] RESPIRATORY [id number] [place] [address] [facility] BASIC METABOLIC PANELon 11-16 Anion gap [Moles/Vol] 19 mmol/L Normal 7-20 [facility] Comment on above: Performed By: #### L [id number] ####[facility] HOSPITAL LAB (BEAKER)[address] [place] [address] Calcium [Mass/Vol] 8.9 mg/dL Normal 8.6-10.3 [facility] Comment on above: Performed By: #### L [id number] ####[facility] HOSPITAL LAB (BEAKER)[address] [place] [address] Chloride [Moles/Vol] 93 mmol/L Low 98-107 [facility] Comment on above: Performed By: #### L [id number] ####[facility] LAB ([facility])[address] [place] [address] CO2 [Moles/Vol] 28 mmol/L Normal 21-31 [facility] Comment on above: Performed By: #### L [id number] ####[facility] LAB ([facility])[address] [place] [address] Creatinine [Mass/Vol] 10.25 mg/dL High 0.70-1.30 [facility] Comment on above: Performed By: #### L [id number] ####[facility] LAB ([facility])[address] [place] [address] GLOMERULAR FILTRATION RATE ML/MIN/1.73 SQ M.PREDICTED 5.4 mL/min/1.73m*2 Low >60.0 [facility] Comment on above: Result Comment: [facility]???s estimated glomerular filtration rate (eGFR) will no longer include consideration of race in its calculation. The National Kidney Foundation???s eGFR Task Force developed new recommendations for the estimation of the glomerular filtration rate in the [place] They recommend immediate implementation of the new equation refit without the race variable in all laboratories because the calculation does not include race. In addition to not including race in the calculation and reporting, it included diversity in its development, and has acceptable performance characteristics and potential consequences that do not disproportionately affect any one group of individuals. Performed By: #### L [id number] ####[facility] LAB [facility] [place] [address] Glucose [Mass/Vol] 75 mg/dL Normal 70-100 [facility] Comment on above: Performed By: #### L [id number] ####[facility] LAB ([facility] [place] [address] Potassium [Moles/Vol] 5.6 mmol/L High 3.5-5.1 [facility] Comment on above: Performed By: #### L [id number] ####[facility] HOSPITAL LAB (BEAKER)[address] [place] [address] Sodium [Moles/Vol] 134 mmol/L Low 136-145 [facility] Comment on above: Performed By: #### L [id number] ####[facility] LAB (BEAKER)[address] [place] [address] Urea nitrogen [Mass/Vol] 40 mg/dL High 7-25 [facility] Comment on above: Performed By: #### L [id number] ####[facility] LAB (BEAKER)[address] [place] [address] UREA NITROGEN/CREATININE (MASS RATIO) IN SER/PLAS 3.9 Normal [facility] Comment on above: Performed By: #### L [id number] ####[facility] LAB (BEAKER)[address] [place] [address] CALCIUM, IONIZEDon CALCIUM IONIZED (MMOL/L) IN BLOOD 1.20 mmol/L Normal 1.15-1.33 [facility] Comment on above: Performed By: #### C ALCIUM, IONIZED ####[facility] RESPIRATORY [id number] [place] [address] [place] CBC WITH AUTO DIFFERENTIALon 12-13-2023 Erythrocyte distribution width (RBC) [Ratio] 19.0 % High 11.5-15.0 [facility] Comment on above: Performed By: #### L [id number] ####[facility] LAB (BEAKER)[address] [place] [address] ERYTHROCYTE MEAN CORPUSCULAR HEMOGLOBIN CONCENTRATION (G/DL) BY AUTOMATED 35.5 g/dL High 32.0-35.0 [facility] Comment on above: Performed By: #### L [id number] ####[facility] LAB (BEAKER)[address] [place] [address] Hematocrit (Bld) [Volume fraction] 25.6 % Low 39.0-55.0 [facility] Comment on above: Performed By: #### L [id number] ####[facility] HOSPITAL LAB (BEAKER)[address] [place] [address] Hemoglobin (Bld) [Mass/Vol] 9.1 g/dL Low 13.0-17.0 [facility] Comment on above: Performed By: #### L [id number] ####[facility] LAB ([facility] [place] [address] IMMATURE PLATELET FRACTION % 6.5 % High 0.8-6.3 [facility] Comment on above: Performed By: #### L [id number] ####[facility] LAB ([facility])[address] [place] [address] MCH (RBC) [Entitic mass] 38.1 pg High 27.0-33.0 [facility] Comment on above: Performed By: #### L [id number] ####[facility] LAB ([facility])[address] [place] [address] MCV (RBC) [Entitic vol] 107.1 fL High 82.0-98.0 [facility] Comment on above: Performed By: #### L [id number] ####[facility] LAB ([facility])[address] [place] [address] NRBC (PER 100 WBCS) BY AUTOMATED COUNT 0.3 % High 0 [facility] Comment on above: Performed By: #### L [id number] ####[facility] LAB ([facility])[address] [place] [address] PLATELETS (10*3/UL) IN BLOOD AUTOMATED COUNT 127 10*3/uL Low 150-400 [facility] Comment on above: Performed By: #### L [id number] ####[facility] LAB ([facility] [place] [address] RBC (Bld) [#/Vol] 2.39 10*6/uL Low 4.20-5.70 [facility] Comment on above: Performed By: #### L [id number] ####[facility] LAB ([facility] [place] [address] WBC (Bld) [#/Vol] 9.42 10*3/uL Normal 4.00-10.60 [facility] Comment on above: Performed By: #### L [id number] ####[facility] LAB ([facility])[address] [place] [address] CONSULTon 12-13-2023 CONSULT Normal [facility] CONSULT Normal [facility] HEMOGLOBIN A1Con 12-13-2023 Glucose [Mass/Vol] 108 mg/dL Normal [facility] Comment on above: Order Comment: NO VA RIANT Performed By: #### L [id number] ####[facility] LAB ([facility])[address] [place] [address] HbA1c (Bld) [Mass fraction] 5.4 % Normal 4.0-6.0 [facility] Comment on above: Order Comment: NO VA RIANT Performed By: #### L [id number] ####[facility] LAB ([facility])[address] [place] [address] HEPATIC FUNCTION PANELon Albumin [Mass/Vol] 4.6 g/dL Normal 3.5-5.7 [facility] Comment on above: Performed By: #### L [id number] ####[facility] LAB ([facility])[address] [place] [address] ALP [Catalytic activity/Vol] 82 U/L Normal 34-104 [facility] Comment on above: Performed By: #### L [id number] ####[facility] LAB ([facility])[address] [place] [address] ALT [Catalytic activity/Vol] 9 U/L Normal 7-52 [facility] Comment on above: Performed By: #### L [id number] ####[facility] LAB ([facility])[address] [place] [address] AST [Catalytic activity/Vol] 20 U/L Normal 13-39 [facility] Comment on above: Performed By: #### L [id number] ####[facility] LAB ([facility])[address] [place] [address] Bilirubin [Mass/Vol] 0.6 mg/dL Normal 0.3-1.0 [facility] Comment on above: Performed By: #### L [id number] ####[facility] LAB ([facility])[address] [place] [address] Magnesium [Mass/Vol] 0.1 mg/dL Normal 0-0.2 [facility] Comment on above: Performed By: #### L [id number] ####[facility] LAB ([facility])[address] [place] [address] Protein [Mass/Vol] 7.2 g/dL Normal 6.0-8.3 [facility] Comment on above: Performed By: #### L [id number] ####[facility] LAB ([facility])[address] [place] [address] HEPATITIS B SURFACE ANTIGENo n 12-13-2023 HEPATITIS B VIRUS SURFACE AG PRESENCE IN SERUM Non-Reactive Normal Nonreactive [facility] Comment on above: Performed By: #### L [id number] ####[facility] LAB ([facility])[address] [place] [address] HEPATITIS C ANTIBODYon HEPATITIS C VIRUS AB PRESENCE IN SERUM Non-Reactive Normal Nonreactive [facility] Comment on above: Performed By: #### L [id number] ####[facility] LAB ([facility])[address] [place] [address] HPon 12-13-2023 HP Normal [facility] HP Normal [facility] HP Normal [facility] LIPID PANELon 12-13-2023 CHOL/HDL 5.0 mg/dL Normal [facility] Comment on above: Performed By: #### L [id number] ####[facility] LAB ([facility])[address] [place] [address] Cholesterol [Mass/Vol] 169 mg/dL Normal 120-[address] [facility] Comment on above: Performed By: #### L [id number] ####[facility] LAB ([facility] [place] [address] Magnesium [Mass/Vol] 147 mg/dL Normal 40-149 [facility] Comment on above: Result Comment: TRIG LYCERIDE REFERENCE RANGE:20 YEARS AND OLDER CARDIOVASCULAR RISKLESS THAN 150 mg/dL LOW [id number] TO 199 mg/dL BORDERLINE [id number] mg/dL AND GREATER HIGH RISK Performed By: #### L [id number] ####[facility] LAB (BEAKER)[address] [place] [address] Magnesium [Mass/Vol] 106 mg/dL Normal 0-160 [facility] Comment on above: Performed By: #### L [id number] ####[facility] LAB (BEAKER)[address] [place] [address] Magnesium [Mass/Vol] 34 mg/dL Normal 23-92 [facility] Comment on above: Performed By: #### L [id number] ####[facility] LAB ([facility] [place] [address] NON HDL CHOL. (LDL+VLDL) 135 Normal [facility] Comment on above: Performed By: #### L [id number] ####[facility] LAB (BEAKER)[address] [place] [address] TOTAL VLDL-C 29 mg/dL Normal 0-[address] [facility] Comment on above: Performed By: #### L [id number] ####[facility] LAB (BEAKER)[address] [place] [address] MANUAL DIFFERENTIALon 2023 ANISOCYTOSIS PRESENCE IN BLOOD BY LIGHT MICROSCOPY Moderate Normal [facility] Comment on above: Performed By: #### L [id number] ####[facility] LAB ([facility] [place] [address] BASOPHILS (10*3/UL) IN BLOOD BY CALCULATION 0.03 10*3/uL Normal 0.00-0.20 [facility] Comment on above: Performed By: #### L [id number] ####[facility] LAB (BEAKER)[address] [place] [address] BASOPHILS/100 LEUKOCYTES IN BLOOD BY AUTOMATED COUNT 0.3 % Normal 0.0-1.0 [facility] Comment on above: Performed By: #### L [id number] ####[facility] LAB ([facility])[address] [place] [address] EOSINOPHILS (10*3/UL) IN BLOOD BY CALCULATION 0.67 10*3/uL High 0.00-0.50 [facility] Comment on above: Performed By: #### L [id number] ####[facility] LAB ([facility])[address] [place] [address] EOSINOPHILS/100 LEUKOCYTES IN BLOOD BY AUTOMATED COUNT 7.1 % High 0.0-6.0 [facility] Comment on above: Performed By: #### L [id number] ####[facility] LAB ([facility])[address] [place] [address] IMMATURE GRANULOCYTES (10*3/UL) IN BLOOD BY CALCULATION 0.07 10*3/uL Normal 0.00-0.20 [facility] Comment on above: Performed By: #### L [id number] ####[facility] LAB ([facility])[address] [place] [address] IMMATURE GRANULOCYTES/100 LEUKOCYTES IN BLOOD BY AUTOMATED COUNT 0.7 % Normal 0.0-1.0 [facility] Comment on above: Performed By: #### L [id number] ####[facility] LAB ([facility])[address] [place] [address] LYMPHOCYTES (10*3/UL) IN BLOOD BY CALCULATION 0.79 10*3/uL Low 1.20-4.00 [facility] Comment on above: Performed By: #### L [id number] ####[facility] LAB ([facility])[address] [place] [address] LYMPHOCYTES/100 LEUKOCYTES IN BLOOD BY AUTOMATED COUNT 8.4 % Low 20.0-45.0 [facility] Comment on above: Performed By: #### L [id number] ####[facility] LAB ([facility] [place] [address] MACROCYTES (PRESENCE) IN BLOOD BY LIGHT MICROSCOPY Moderate Normal [facility] Comment on above: Performed By: #### L [id number] ####[facility] LAB ([facility])[address] [place] [address] MONOCYTES (10*3/UL) IN BLOOD BY CALCUATION 0.53 10*3/uL Normal 0.10-1.[address] [facility] Comment on above: Performed By: #### L [id number] ####[facility] LAB ([facility])[address] [place] [address] MONOCYTES/100 LEUKOCYTES IN BLOOD BY AUTOMATED COUNT 5.6 % Normal 5.0-12.0 [facility] Comment on above: Performed By: #### L [id number] ####[facility] LAB ([facility])[address] [place] [address] NEUTROPHILS (10*3/UL) IN BLOOD BY CALCULATION 7.3 10*3/uL Normal 1.6-7.6 [facility] Comment on above: Performed By: #### L [id number] ####[facility] LAB ([facility])[address] [place] [address] NEUTROPHILS/100 LEUKOCYTES IN BLOOD BY AUTOMATED COUNT 77.9 % High 40.0-72.0 [facility] Comment on above: Performed By: #### L [id number] ####[facility] LAB ([facility])[address] [place] [address] POIKILOCYTOSIS (PRESENCE) IN BLOOD BY LIGHT MICROSCOPY Slight Normal [facility] Comment on above: Performed By: #### L [id number] ####[facility] LAB ([facility])[address] [place] [address] POLYCHROMASIA IN BLOOD BY LIGHT MICROSCOPY Slight Normal [facility] Comment on above: Performed By: #### L [id number] ####[facility] LAB ([facility])[address] [place] [address] NURSNOTEon 12-13-2023 NURSNOTE [facility] NURSNOTE 1345 pt at dialysis. 1600 Rns came to dialysis to run ACT. ACT 154. 2 Rns pulled at bedside in dialysis and held pressure for 20 minutes. [facility] NURSNOTE Pt being transported to HD at this time. Normal [facility] NURSNOTE Pt restless, uncomfortable even with NRB mask on. Dr. Church at bedside and wants a bipap for the pt. RT up to bedside at this time and bipap placed. Normal [facility] POTASSIUM, WHOLE BLOODon Potassium [Moles/Vol] 6.2 mmol/L Critically high 3.5-5.1 [facility] Comment on above: Performed By: #### P OTASSIUM, WHOLE BLOOD ####[facility] RESPIRATORY [id number] [place] [address] [place] SODIUM, WHOLE BLOODon 2023 SODIUM, WHOLE BLOOD 133 Low 136-145 [facility] Comment on above: Performed By: #### S ODIUM, WHOLE BLOOD ####[facility] RESPIRATORY [id number] [place] [address] [facility] TSHon 12-13-2023 THYROTROPIN (MIU/L) IN SER/PLAS BY DETECTION LIMIT <= 0.05 MIU/L 4.71 mIU/L Normal 0.34-5.[address] [facility] Comment on above: Performed By: #### L [id number] ####[facility] HOSPITAL LAB (BEAKER)[address] [place] [address] VENOUS BLOOD GAS WITH CO-OXI METRYon 12-13-2023 Base excess Calc (BldV) [Moles/Vol] 6.3 mmol/L Normal [facility] Comment on above: Performed By: #### L [id number] ####[facility] RESPIRATORY [id number] [place] [address] [facility] CARBOXYHEMOGLOBIN/HEMO GLOBIN TOTAL % IN BLOOD 3.8 % Normal [facility] Comment on above: Performed By: #### L [id number] ####[facility] RESPIRATORY [id number] [place] [address] [facility] CO2 (BldV) [Partial pressure] 42 mm[Hg] Normal 40-50 [facility] Comment on above: Performed By: #### L [id number] ####[facility] RESPIRATORY [id number] [place] [address] [facility] HCO3 (Bld) [Moles/Vol] 30.6 mmol/L Normal U [facility] Comment on above: Performed By: #### L [id number] ####[facility] RESPIRATORY [id number] [place] [address] [facility] Hemoglobin (Bld) [Mass/Vol] 9.0 g/dL Normal [facility] Comment on above: Performed By: #### L [id number] ####[facility] RESPIRATORY [id number] [place] [address] [facility] METHEMOGLOBIN/100 IN BLOOD 0.7 % Normal 0.0-1.5 [facility] Comment on above: Performed By: #### L [id number] ####[facility] RESPIRATORY [id number] [place] [address] [facility] Oxygen (BldV) [Partial pressure] 59 mm[Hg] High 35-45 [facility] Comment on above: Performed By: #### L [id number] ####[facility] RESPIRATORY [id number] [place] [address] [facility] OXYGEN SATURATION (%) IN VENOUS BLOOD 92.0 % High 65.0-75.0 [facility] Comment on above: Performed By: #### L [id number] ####[facility] RESPIRATORY [id number] [place] [address] [facility] OXYGENATED HEMOGLOBIN IN BLOOD 87.9 % Normal [facility] Comment on above: Performed By: #### L [id number] ####[facility] RESPIRATORY [id number] [place] [address] [facility] PH OF VENOUS BLOOD 7.47 High 7.31-7.41 [facility] Comment on above: Performed By: #### L [id number] ####[facility] RESPIRATORY [id number] [place] [address] [facility] NURSNOTEon 12-05-2023 NURSNOTE Normal [facility] NURSNOTE Normal [facility] Orders Onlyon 12-05-2023 Orders Only Normal [facility] 30on 11-30-2023 30 Normal [facility] Consulton 11-30-2023 Consult Normal [facility] HPon 11-30-2023 HP [facility] 36on 11-26-2023 36 TC contacted pt and re-schedule his TE clinic re-eval for 12/19/23 at 8 am. Juliana Cerda RN [facility] 36on 11-22-2023 36 TC contacted pt to reschedule missed TE re-eval appointnment. Received no answer with no option to leave a voice message. Juliana Cerda RN [facility] Potassiumon 11-10-2023 Potassium [Moles/Vol] 5.2 mmol/L High 3.5-5.1 [facility] Comment on above: Result Comment: PERF ORMED BY: [place] [address] PATHOLOGIST FARM MARKETER JM BERRY M.D. Performed By: #### K #### [facility] [address] [place], [place] [address] [place] Potassium [Moles/volume] in Serum or PlasmaOrdered By: Toby Venegas on 11-10-2023 Potassium [Moles/Vol] 5.2 mmol/L 3.5-5.1 [facility] Potassiumon 11-03-2023 Potassium [Moles/Vol] 5.8 mmol/L High 3.5-5.1 [facility] Comment on above: Result Comment: PERF ORMED BY: [place] [address] PATHOLOGIST [employer]ARM MARKETER JM BERRY M.D. Performed By: #### H S TROP #### [facility] [address] [place], [place] [address] [place] Potassium [Moles/volume] in Serum or PlasmaOrdered By: Junior Mayo on 11-03-2023 Potassium [Moles/Vol] 5.8 mmol/L 3.5-5.1 [facility] Physician Orderon 10-11-2023 Physician Order [id number] Normal [facility] Potassiumon 10-11-2023 Potassium [Moles/Vol] 5.4 mmol/L High 3.5-5.1 [facility] Comment on above: Result Comment: PERF ORMED BY: [facility] [address] [place] [address] PATHOLOGIST FARM MARKETER JM BERRY M.D. Performed By: #### C BC, BMP #### [facility] [address] Potassium [Moles/volume] in Serum or PlasmaOrdered By: Junior Mayo on 10-11-2023 Potassium [Moles/Vol] 5.4 mmol/L 3.5-5.1 [facility] T4 & TSHon 10-11-2023 TSH Qn 3.76 m[IU]/L Normal 0.34-5.60 [facility] Comment on above: Performed By: #### 1 [id number] #### [facility] [address] [place] [address] T4 7.1 microgram/dL Normal 4.6-9.1 [facility] Comment on above: Performed By: #### 1 [id number] #### [facility] [address] [place] [address] 36on 10-03-2023 36 Normal [facility] Follow-Upon 09-10-2023 Follow-Up Normal [facility] Orders Onlyon 08-23-2023 Orders Only Normal [facility] T3 Totalon 08-21-2023 T3 [Mass/Vol] 87 ng/dL Invalid Interpretation Code [id number] [facility] Comment on above: Result Comment: Perf ormed at: [facility] [address] [id number] PhD Eula Nava Performed By: #### 2 [id number], [id number], [id number], [id number], [id number] #### [facility] [address] [place] [address] CMPon 08-20-2023 Creatinine [Mass/Vol] 9.0 mg/dL Abnormal 0.5-1.3 [facility] Comment on above: Result Comment: Resu lts verified by repeat analysis\Critical Result S_CREA:9.00 Called to [facility] by ANGELINA MCNEILL And Read Back For Confirmation at: 08/20/2023 16:34:43 Performed By: #### 2 [id number], [id number], [id number], [id number], [id number] #### [facility] [address] [place] [address] Globulin (S) [Mass/Vol] 3.6 g/dL Normal 1.4-4.0 [facility] Comment on above: Performed By: #### 2 [id number] #### [facility] [address] [place] [address] Urea nitrogen/Creatinine [Mass ratio] 5 No Units Low 10-20 [facility] Comment on above: Performed By: #### 2 [id number] #### [facility] [address] [place] [address] Albumin [Mass/Vol] 3.7 g/dL Normal 3.3-5.0 [facility] Comment on above: Performed By: #### 2 401936, 10841877, 86580426, 14079762, 6103423 #### [facility] [address] [place] [address] Albumin/Globulin (S) [Mass conc ratio] 1.0 Low 1.1-2.2 [facility] Comment on above: Performed By: #### 2 004137, 32117485, 05219998, 88221640, 0391573 #### [facility] [address] [place] [address] ALP [Catalytic activity/Vol] 81 Int._Unit/L Normal 21-98 [facility] Comment on above: Performed By: #### 2 800100, 63642547, 73012639, 67785528, 3015933 #### [facility] [address] [place] [address] ALT No additional P-5'-P [Catalytic activity/Vol] 14 Int._Unit/L Normal 6-46 [facility] Comment on above: Performed By: #### 2 975238, 24147334, 08659565, 07190268, 4577309 #### [facility] [address] [place] [address] Anion gap [Moles/Vol] 21 mmol/L High 6-16 [facility] Comment on above: Performed By: #### 2 374160, 32701300, 56007588, 51226840, 9817391 #### [facility] [address] [place] [address] AST [Catalytic activity/Vol] 13 Int._Unit/L Normal 5-43 [facility] Comment on above: Performed By: #### 2 413893, 74675930, 85915347, 97399475, 3449949 #### [facility] [address] [place] [address] Bilirubin [Mass/Vol] 0.7 mg/dL Normal 0.0-1.1 [facility] Comment on above: Performed By: #### 2 836018, 16863690, 61729502, 42655883, 5286342 #### [facility] [address] [place] [address] Calcium [Mass/Vol] 10.2 mg/dL Normal 8.9-11.1 [facility] Comment on above: Performed By: #### 2 252287, 59369772, 06690160, 06501058, 1076239 #### [facility] [address] [place] [address] Glucose [Mass/Vol] 84 mg/dL Normal 55-199 [facility] Comment on above: Result Comment: If t his glucose result represents a fasting glucose, interpretation should refer to the following reference range: 55-99 mg/dL Performed By: #### 2 731035, 31310024, 74726802, 43442169, 3771327 #### [facility] [address] [place] [address] Protein [Mass/Vol] 7.3 g/dL Normal 6.0-7.8 [facility] Comment on above: Performed By: #### 2 233386, 61846375, 51462050, 14341549, 4571965 #### [facility] [address] [place] [address] Chloride [Moles/Vol] 95 mmol/L Low 101-111 [facility] Comment on above: Performed By: #### 2 729770, 08411573, 31707772, 32013983, 0591464 #### [facility] [address] [place] [address] CO2 [Moles/Vol] 28 mmol/L Normal 21-31 [facility] Comment on above: Performed By: #### 2 291693, 35590752, 50848559, 92757328, 2429102 #### [facility] [address] [place] [address] Potassium [Moles/Vol] 5.5 mmol/L High 3.5-5.3 [facility] Comment on above: Performed By: #### 2 914508, 45792882, 76540847, 53543023, 0551566 #### [facility] [address] [place] [address] Sodium [Moles/Vol] 138 mmol/L Normal 135-145 [facility] Comment on above: Performed By: #### 2 524877, 16347071, 38500588, 70139601, 0062291 #### [facility] [address] [place] [address] Urea nitrogen [Mass/Vol] 45 mg/dL High 5-21 [facility] Comment on above: Performed By: #### 2 779867, 97079263, 18327616, 19407231, 8185577 #### [facility] [address] [place] [address] Lipid Panelon 08-20-2023 Cholesterol [Mass/Vol] 133 mg/dL Normal 120-200 [facility] Comment on above: Performed By: #### 2 437045, 97991867, 42578464, 89805883, 9304656 #### [facility] [address] [place] [address] Cholesterol in HDL [Mass/Vol] 37 mg/dL Invalid Interpretation Code [facility] Comment on above: Result Comment: HDL > or equal to 60 mg/dL: Low cardiovascular risk HDL < 40 mg/dL : High cardiovascular risk Performed By: #### 2 377610, 46590653, 41599797, 06773662, 9751119 #### [facility] [address] [place] [address] Cholesterol in LDL [Mass/Vol] 75 mg/dL Normal <=129 [facility] Comment on above: Performed By: #### 2 560832, 16469773, 76297602, 77713378, 4625186 #### [facility] [address] [place] [address] Cholesterol in VLDL [Mass/Vol] 17 mg/dL Normal 7-40 [facility] Comment on above: Performed By: #### 2 017106, 40293175, 45666157, 66625750, 2404107 #### [facility] [address] [place] [address] Triglyceride [Mass/Vol] 86 mg/dL Normal <=149 [facility] Comment on above: Performed By: #### 2 395032, 63130909, 41791497, 37762060, 2529742 #### [facility] [address] [place] [address] Physician Orderon 08-20-2023 Physician Order [id number]# 1.00TIFF Normal [facility] T4 & TSHon 08-20-2023 T4 [Mass/Vol] 12.4 microgram/dL High 4.6-9.1 [facility] Comment on above: Performed By: #### 2 939402, 12740931, 37215585, 27688480, 0290212 #### [facility] [address] [place] [address] TSH Qn 0.08 m[IU]/L Low 0.34-5.60 [facility] Comment on above: Performed By: #### 2 848982, 99282108, 86110808, 59376429, 9452250 #### [facility] [address] [place] [address] eGFRon 08-20-2023 GFR/1.73 sq M.predicted among non-blacks MDRD (S/P/Bld) [Vol rate/Area] 6 mL/min/1.73 m2 Low >=59 [facility] Comment on above: Order Comment: Order added by Discern Expert. Result Comment: Suspect Artist Supervisor eb kidney disease could be indicated at eGFR's of less than 60 mL/min/1.73m2. Kidney failure is indicated at less than 15 mL/min/1.73m2. Performed By: #### 2 560448, 12426757, 99252527, 37428060, 7189349 #### [facility] [address] [place] [address] 29on 07-20-2023 29 Addended by: HIEU MILLER on: 07/23/2023 08:34 AM Modules accepted: Orders Normal [facility] Follow-Upon 07-20-2023 Follow-Up Normal [facility] Follow-Upon 07-11-2023 Follow-Up Normal [facility] Follow-Upon 07-04-2023 Follow-Up [facility] 36on 06-29-2023 36 Normal [facility] Follow-Upon 06-27-2023 Follow-Up Normal [facility] 30on 06-24-2023 30 Normal [facility] DSon 06-24-2023 DS [facility] NURSNOTEon 06-24-2023 NURSNOTE Discharge instructions given to patient and patient receptive to the teaching Normal [facility] Orders Onlyon 06-24-2023 Orders Only Normal [facility] BASIC METABOLIC PANELon Anion gap [Moles/Vol] 16 mmol/L Normal 7-20 [facility] Comment on above: Performed By: #### L [id number] ####[facility] ([facility])[address] [place] [address] Calcium [Mass/Vol] 8.8 mg/dL Normal 8.6-10.3 [facility] Comment on above: Performed By: #### L [id number] ####[facility] ([facility])[address] [place] [address] Chloride [Moles/Vol] 95 mmol/L Low 98-107 [facility] Comment on above: Performed By: #### L [id number] ####[facility] ([facility])[address] [place] [address] CO2 [Moles/Vol] 26 mmol/L Normal 21-31 [facility] Comment on above: Performed By: #### L [id number] ####[facility] ([facility])[address] [place] [address] Creatinine [Mass/Vol] 8.64 mg/dL High 0.70-1.30 [facility] Comment on above: Performed By: #### L [id number] ####[facility] ([facility])[address] [place] [address] GLOMERULAR FILTRATION RATE ML/MIN/1.73 SQ M.PREDICTED 6.7 mL/min/1.73m*2 Low >60.0 [facility] Comment on above: Result Comment: [facility]???s estimated glomerular filtration rate (eGFR) will no longer include consideration of race in its calculation. The National Kidney Foundation???s eGFR Task Force developed new recommendations for the estimation of the glomerular filtration rate in the [place] They recommend immediate implementation of the new equation refit without the race variable in all laboratories because the calculation does not include race. In addition to not including race in the calculation and reporting, it included diversity in its development, and has acceptable performance characteristics and potential consequences that do not disproportionately affect any one group of individuals. Performed By: #### L [id number] ####[facility] ([facility])[address] [place] [address] Glucose [Mass/Vol] 83 mg/dL Normal 70-100 [facility] Comment on above: Performed By: #### L [id number] ####[facility] ([facility])[address] [place] [address] Potassium [Moles/Vol] 4.3 mmol/L Normal 3.5-5.1 [facility] Comment on above: Performed By: #### L [id number] ####[facility] ([facility])[address] [place] [address] Sodium [Moles/Vol] 133 mmol/L Low 136-145 [facility] Comment on above: Performed By: #### L [id number] ####[facility] ([facility])[address] [place] [address] Urea nitrogen [Mass/Vol] 40 mg/dL High 7-25 [facility] Comment on above: Performed By: #### L [id number] ####[facility] ([facility])[address] [place] [address] UREA NITROGEN/CREATININE (MASS RATIO) IN SER/PLAS 4.6 Normal [facility] Comment on above: Performed By: #### L [id number] ####[facility] ([facility])[address] [place] [address] CBC WITH AUTO DIFFERENTIALon 06-23-2023 Erythrocyte distribution width (RBC) [Ratio] 20.5 % High 11.5-15.0 [facility] Comment on above: Performed By: #### L [id number] ####[facility] ([facility])[address] [place] [address] ERYTHROCYTE MEAN CORPUSCULAR HEMOGLOBIN CONCENTRATION (G/DL) BY AUTOMATED 34.0 g/dL Normal 32.0-35.0 [facility] Comment on above: Performed By: #### L [id number] ####[facility] ([facility])[address] [place] [address] Hematocrit (Bld) [Volume fraction] 24.4 % Low 39.0-55.0 [facility] Comment on above: Performed By: #### L [id number] ####[facility] ([facility])[address] [place] [address] Hemoglobin (Bld) [Mass/Vol] 8.3 g/dL Low 13.0-17.0 [facility] Comment on above: Performed By: #### L [id number] ####[facility] ([facility])[address] [place], [place] [address] MCH (RBC) [Entitic mass] 32.2 pg Normal 27.0-33.0 [facility] Comment on above: Performed By: #### L [id number] ####[facility] ([facility])[address] [place], [place] [address] MCV (RBC) [Entitic vol] 94.6 fL Normal 82.0-98.0 [facility] Comment on above: Performed By: #### L [id number] ####[facility] [place] [address] NRBC (PER 100 WBCS) BY AUTOMATED COUNT 0.0 % Normal 0 [facility] Comment on above: Performed By: #### L [id number] ####[facility] [place] [address] PLATELETS (10*3/UL) IN BLOOD AUTOMATED COUNT 229 10*3/uL Normal 150-400 [facility] Comment on above: Performed By: #### L [id number] ####[facility] [place] [address] RBC (Bld) [#/Vol] 2.58 10*6/uL Low 4.20-5.70 [facility] Comment on above: Performed By: #### L [id number] ####[facility] ([facility])[address] [place] [address] WBC (Bld) [#/Vol] 14.00 10*3/uL High 4.00-10.60 [facility] Comment on above: Performed By: #### L [id number] ####[facility] ([facility])[address] [place] [address] HEMOGLOBIN AND HEMATOCRIT, B LOODon 06-23-2023 Hematocrit (Bld) [Volume fraction] 26.9 % Low 39.0-55.0 [facility] Comment on above: Performed By: #### L [id number] ####[facility] ([facility])[address] [place] [address] Hemoglobin (Bld) [Mass/Vol] 9.2 g/dL Low 13.0-17.0 [facility] Comment on above: Performed By: #### L [id number] ####[facility] ([facility] [address] MAGNESIUMon 06-23-2023 Magnesium [Mass/Vol] 1.9 mg/dL Normal 1.9-2.7 [facility] Comment on above: Performed By: #### L [id number] ####[facility] ([facility])[place] [address] MANUAL DIFFERENTIALon 2022 ANISOCYTOSIS PRESENCE IN BLOOD BY LIGHT MICROSCOPY Moderate Normal [facility] Comment on above: Performed By: #### L [id number] ####[facility] ([facility])[address] [place] [address] BASOPHILS (10*3/UL) IN BLOOD BY CALCULATION 0.01 10*3/uL Normal 0.00-0.20 [facility] Comment on above: Performed By: #### L [id number] ####[facility] ([facility])[address] [place] [address] BASOPHILS/100 LEUKOCYTES IN BLOOD BY AUTOMATED COUNT 0.1 % Normal 0.0-1.0 [facility] Comment on above: Performed By: #### L [id number] ####[facility] ([facility])[address] [place] [address] EOSINOPHILS (10*3/UL) IN BLOOD BY CALCULATION 0.08 10*3/uL Normal 0.00-0.50 [facility] Comment on above: Performed By: #### L [id number] ####[facility] [place] [address] EOSINOPHILS/100 LEUKOCYTES IN BLOOD BY AUTOMATED COUNT 0.6 % Normal 0.0-6.0 [facility] Comment on above: Performed By: #### L [id number] ####[facility] ([facility])[address] [place] [address] IMMATURE GRANULOCYTES (10*3/UL) IN BLOOD BY CALCULATION 0.10 10*3/uL Normal 0.00-0.20 [facility] Comment on above: Performed By: #### L [id number] ####[facility] ([facility])[address] [place] [address] IMMATURE GRANULOCYTES/100 LEUKOCYTES IN BLOOD BY AUTOMATED COUNT 0.7 % Normal 0.0-1.0 [facility] Comment on above: Performed By: #### L [id number] ####[facility] ([facility])[address] [place], [place] [address] LYMPHOCYTES (10*3/UL) IN BLOOD BY CALCULATION 0.74 10*3/uL Low 1.20-4.00 [facility] Comment on above: Performed By: #### L [id number] ####[facility] ([facility])[address] [place] [address] LYMPHOCYTES/100 LEUKOCYTES IN BLOOD BY AUTOMATED COUNT 5.3 % Low 20.0-45.0 [facility] Comment on above: Performed By: #### L [id number] ####[facility] ([facility] [place], [place] [address] MONOCYTES (10*3/UL) IN BLOOD BY CALCUATION 0.80 10*3/uL Normal 0.10-1.[address] [facility] Comment on above: Performed By: #### L [id number] ####[facility] ([facility])[address] [place] [address] MONOCYTES/100 LEUKOCYTES IN BLOOD BY AUTOMATED COUNT 5.7 % Normal 5.0-12.0 [facility] Comment on above: Performed By: #### L [id number] ####[facility] ([facility])[address] [place] [address] NEUTROPHILS (10*3/UL) IN BLOOD BY CALCULATION 12.3 10*3/uL High 1.6-7.6 [facility] Comment on above: Performed By: #### L [id number] ####[facility] ([facility])[address] [place] [address] NEUTROPHILS/100 LEUKOCYTES IN BLOOD BY AUTOMATED COUNT 87.6 % High 40.0-72.0 [facility] Comment on above: Performed By: #### L [id number] ####[facility] ([facility])[address] [place] [address] POLYCHROMASIA IN BLOOD BY LIGHT MICROSCOPY Slight Normal [facility] Comment on above: Performed By: #### L [id number] ####[facility] ([facility])[address] [place] [address] NURSNOTEon 06-23-2023 NURSNOTE Nurse practitioner took out the trialysis catheter Normal [facility] PHOSPHORUSon 06-23-2023 Magnesium [Mass/Vol] 6.5 mg/dL High 2.5-5.0 [facility] Comment on above: Performed By: #### L [id number] ####[facility] ([facility])[address] [place] [address] PROTIME-INRon 06-23-2023 INR IN PPP BY COAGULATION ASSAY 1.07 Normal 0.90-1.10 [facility] Comment on above: Result Comment: ACCC P RECOMMENDED INR FOR WARFARIN THERAPY CONDITION INRPROPHYLAXIS OF VENOUS THROMBOSIS 2-3(HIGH-RISK SURGERY)TREATMENT OF VENOUS THROMBOSIS 2-3TREATMENT OF PULMONARY EMBOLISM 2-3PREVENTION OF SYSTEMIC EMBOLISM: 2-3 ACUTE MYOCARDIAL INFARCTION TISSUE HEART VALVES VALVULAR HEART DISEASE ATRIAL FIBRILLATION RECURRENT SYSTEMIC EMBOLISMMECHANICAL HEART VALVE 2.5-3.5 FROM: ORAL ANTICOAGULANTS. MECHANISM OF ACTION, CLINICAL EFFECTIVENESS, AND OPTIMAL THERAPEUTIC RANGE. CHEST 1995;108:231S-246S. Performed By: #### L [id number] ####[facility] ([facility])[address] [place] [address] PROTHROMBIN TIME (PT) IN PPP BY COAGULATION ASSAY 13.9 Seconds Normal 12.3-14.8 [facility] Comment on above: Performed By: #### L [id number] ####[facility] ([facility])[address] [place] [address] [id number] 06-22-2023 [id number] Normal [facility] ANESon 06-22-2023 ANES Normal [facility] ANES Normal [facility] APTTon 06-22-2023 ACTIVATED PARTIAL THROMBOPLASTIN TIME IN PPP BY COAGULATION ASSAY 26.4 Seconds Normal 25.0-35.0 [facility] Comment on above: Result Comment: Clin ical significance of the APTT is questionable in the presence of heparin. Performed By: #### L [id number] ####[facility] ([facility])[address] [place] [address] BASIC METABOLIC PANELon Anion gap [Moles/Vol] 14 mmol/L Normal 7-20 [facility] Comment on above: Performed By: #### L [id number] ####[facility] ([facility])[address] [place] [address] Calcium [Mass/Vol] 9.1 mg/dL Normal 8.6-10.3 [facility] Comment on above: Performed By: #### L [id number] ####[facility] ([facility])[address] [place] [address] Chloride [Moles/Vol] 97 mmol/L Low 98-107 [facility] Comment on above: Performed By: #### L [id number] ####[facility] ([facility])[address] [place] [address] CO2 [Moles/Vol] 29 mmol/L Normal 21-31 [facility] Comment on above: Performed By: #### L [id number] ####[facility] ([facility])[address] [place] [address] Creatinine [Mass/Vol] 6.40 mg/dL High 0.70-1.30 [facility] Comment on above: Performed By: #### L [id number] ####[facility] ([facility])[address] [place] [address] GLOMERULAR FILTRATION RATE ML/MIN/1.73 SQ M.PREDICTED 9.6 mL/min/1.73m*2 Low >60.0 [facility] Comment on above: Result Comment: [facility]???s estimated glomerular filtration rate (eGFR) will no longer include consideration of race in its calculation. The National Kidney Foundation???s eGFR Task Force developed new recommendations for the estimation of the glomerular filtration rate in the [place] They recommend immediate implementation of the new equation refit without the race variable in all laboratories because the calculation does not include race. In addition to not including race in the calculation and reporting, it included diversity in its development, and has acceptable performance characteristics and potential consequences that do not disproportionately affect any one group of individuals. Performed By: #### L [id number] ####[facility] [place] [address] Glucose [Mass/Vol] 93 mg/dL Normal 70-100 [facility] Comment on above: Performed By: #### L [id number] ####[facility] ([facility] [place] [address] Potassium [Moles/Vol] 4.3 mmol/L Normal 3.5-5.1 [facility] Comment on above: Performed By: #### L [id number] ####[facility] ([facility])[address] [place] [address] Sodium [Moles/Vol] 136 mmol/L Normal 136-145 [facility] Comment on above: Performed By: #### L [id number] ####[facility] ([facility])[address] [place] [address] Urea nitrogen [Mass/Vol] 27 mg/dL High 7-25 [facility] Comment on above: Performed By: #### L [id number] ####[facility] ([facility])[address] [place] [address] UREA NITROGEN/CREATININE (MASS RATIO) IN SER/PLAS 4.2 Normal [facility] Comment on above: Performed By: #### L [id number] ####[facility] ([facility])[address] [place] [address] CBC WITH AUTO DIFFERENTIALon 06-22-2023 Erythrocyte distribution width (RBC) [Ratio] 18.4 % High 11.5-15.0 [facility] Comment on above: Performed By: #### L [id number] ####[facility] ([facility])[address] [place] [address] ERYTHROCYTE MEAN CORPUSCULAR HEMOGLOBIN CONCENTRATION (G/DL) BY AUTOMATED 31.9 g/dL Low 32.0-35.0 [facility] Comment on above: Performed By: #### L [id number] ####[facility] ([facility])[address] [place] [address] Hematocrit (Bld) [Volume fraction] 22.9 % Low 39.0-55.0 [facility] Comment on above: Performed By: #### L [id number] ####[facility] ([facility])[address] [place] [address] Hemoglobin (Bld) [Mass/Vol] 7.3 g/dL Low 13.0-17.0 [facility] Comment on above: Performed By: #### L [id number] ####[facility] ([facility])[address] [place] [address] MCH (RBC) [Entitic mass] 31.9 pg Normal 27.0-33.0 [facility] Comment on above: Performed By: #### L [id number] ####[facility] ([facility])[address] [place] [address] MCV (RBC) [Entitic vol] 100.0 fL High 82.0-98.0 [facility] Comment on above: Performed By: #### L [id number] ####[facility] ([facility])[address] [place] [address] NRBC (PER 100 WBCS) BY AUTOMATED COUNT 0.1 % High 0 [facility] Comment on above: Performed By: #### L [id number] ####[facility] ([facility])[address] [place] [address] PLATELETS (10*3/UL) IN BLOOD AUTOMATED COUNT 284 10*3/uL Normal 150-400 [facility] Comment on above: Performed By: #### L [id number] ####[facility] ([facility])[address] [place] [address] RBC (Bld) [#/Vol] 2.29 10*6/uL Low 4.20-5.70 [facility] Comment on above: Performed By: #### L [id number] ####[facility] ([facility])[address] [place] [address] WBC (Bld) [#/Vol] 16.58 10*3/uL High 4.00-10.60 [facility] Comment on above: Performed By: #### L [id number] ####[facility] [place] [address] HEMOGLOBIN AND HEMATOCRIT, B LOODon 06-22-2023 Hematocrit (Bld) [Volume fraction] 20.5 % Low 39.0-55.0 [facility] Comment on above: Performed By: #### L [id number] ####[facility] ([facility])[address] [place] [address] Hemoglobin (Bld) [Mass/Vol] 6.6 g/dL Low 13.0-17.0 [facility] Comment on above: Performed By: #### L [id number] ####[facility] ([facility])[address] [place] [address] Hematocrit (Bld) [Volume fraction] 21.0 % Low 39.0-55.0 [facility] Comment on above: Performed By: #### L [id number] ####[facility] ([facility])[address] [place] [address] Hemoglobin (Bld) [Mass/Vol] 6.9 g/dL Low 13.0-17.0 [facility] Comment on above: Performed By: #### L [id number] ####[facility] [place] [address] HPon 06-22-2023 HP Normal [facility] MAGNESIUMon 06-22-2023 Magnesium [Mass/Vol] 1.8 mg/dL Low 1.9-2.7 [facility] Comment on above: Performed By: #### L [id number] ####[facility] [facility] [place] [address] MANUAL DIFFERENTIALon 2022 ANISOCYTOSIS PRESENCE IN BLOOD BY LIGHT MICROSCOPY Moderate Normal [facility] Comment on above: Performed By: #### L [id number] ####[facility] [place] [address] BASOPHILS (10*3/UL) IN BLOOD BY CALCULATION 0.02 10*3/uL Normal 0.00-0.20 [facility] Comment on above: Performed By: #### L [id number] ####[facility] ([facility])[address] [place] [address] BASOPHILS/100 LEUKOCYTES IN BLOOD BY AUTOMATED COUNT 0.1 % Normal 0.0-1.0 [facility] Comment on above: Performed By: #### L [id number] ####[facility] ([facility])[address] [place] [address] EOSINOPHILS (10*3/UL) IN BLOOD BY CALCULATION 0.02 10*3/uL Normal 0.00-0.50 [facility] Comment on above: Performed By: #### L [id number] ####[facility] ([facility])[address] [place] [address] EOSINOPHILS/100 LEUKOCYTES IN BLOOD BY AUTOMATED COUNT 0.1 % Normal 0.0-6.0 [facility] Comment on above: Performed By: #### L [id number] ####[facility] ([facility])[address] [place] [address] IMMATURE GRANULOCYTES (10*3/UL) IN BLOOD BY CALCULATION 0.13 10*3/uL Normal 0.00-0.20 [facility] Comment on above: Performed By: #### L [id number] ####[facility] ([facility])[address] [place] [address] IMMATURE GRANULOCYTES/100 LEUKOCYTES IN BLOOD BY AUTOMATED COUNT 0.8 % Normal 0.0-1.0 [facility] Comment on above: Performed By: #### L [id number] ####[facility] ([facility])[address] [place] [address] LYMPHOCYTES (10*3/UL) IN BLOOD BY CALCULATION 0.80 10*3/uL Low 1.20-4.00 [facility] Comment on above: Performed By: #### L [id number] ####[facility] ([facility])[address] [place] [address] LYMPHOCYTES/100 LEUKOCYTES IN BLOOD BY AUTOMATED COUNT 4.8 % Low 20.0-45.0 [facility] Comment on above: Performed By: #### L [id number] ####[facility] ([facility])[address] [place] [address] MONOCYTES (10*3/UL) IN BLOOD BY CALCUATION 1.19 10*3/uL High 0.10-1.[address] [facility] Comment on above: Performed By: #### L [id number] ####[facility] ([facility])[address] [place] [address] MONOCYTES/100 LEUKOCYTES IN BLOOD BY AUTOMATED COUNT 7.2 % Normal 5.0-12.0 [facility] Comment on above: Performed By: #### L [id number] ####[facility] ([facility])[address] [place] [address] NEUTROPHILS (10*3/UL) IN BLOOD BY CALCULATION 14.4 10*3/uL High 1.6-7.6 [facility] Comment on above: Performed By: #### L [id number] ####[facility] ([facility])[address] [place] [address] NEUTROPHILS/100 LEUKOCYTES IN BLOOD BY AUTOMATED COUNT 87.0 % High 40.0-72.0 [facility] Comment on above: Performed By: #### L [id number] ####[facility] ([facility])[address] [place] [address] POIKILOCYTOSIS (PRESENCE) IN BLOOD BY LIGHT MICROSCOPY Slight Normal [facility] Comment on above: Performed By: #### L [id number] ####[facility] ([facility])[address] [place] [address] POLYCHROMASIA IN BLOOD BY LIGHT MICROSCOPY Slight Normal [facility] Comment on above: Performed By: #### L [id number] ####[facility] ([facility])[address] [place] [address] OPNOTEon 06-22-2023 OPNOTE Normal [facility] PHOSPHORUSon 06-22-2023 Magnesium [Mass/Vol] 6.0 mg/dL High 2.5-5.0 [facility] Comment on above: Performed By: #### L [id number] ####[facility] ([facility])[address] [place] [address] POCT PERFUSION PANEL UNSOLIC ITED RESULTSon 06-22-2023 Glucose [Mass/Vol] 88 mg/dL Normal 70-105 [facility] Comment on above: Performed By: #### L [id number] ####[facility] ([facility])[address] [place] [address] POCT BASE EXCESS Normal [facility] Comment on above: Performed By: #### L [id number] ####[facility] ([facility] [place] [address] POCT HCO3 [facility] Comment on above: Performed By: #### L [id number] ####[facility] ([facility])[address] [place] [address] POCT HEMATOCRIT Normal [facility] Comment on above: Performed By: #### L [id number] ####[facility] ([facility] [place] [address] POCT HEMOGLOBIN Normal [facility] Comment on above: Performed By: #### L [id number] ####[facility] ([facility] [place] [address] POCT IONIZED CALCIUM Normal [facility] Comment on above: Performed By: #### L [id number] ####[facility] ([facility] [place] [address] POCT PCO2 [facility] Comment on above: Performed By: #### L [id number] ####[facility] ([facility])[address] [place] [address] POCT PH [facility] Comment on above: Performed By: #### L [id number] ####[facility] ([facility])[address] [place] [address] POCT PO2 [facility] Comment on above: Performed By: #### L [id number] ####[facility] ([facility])[address] [place] [address] POCT SO2 [facility] Comment on above: Performed By: #### L [id number] ####[facility] ([facility])[address] [place] [address] POCT SODIUM Normal [facility] Comment on above: Performed By: #### L [id number] ####[facility] ([facility])[address] [place] [address] POCT TOTAL CO2 Normal [facility] Comment on above: Performed By: #### L [id number] ####[facility] ([facility])[address] [place] [address] Potassium [Moles/Vol] 4.1 mmol/L Normal 3.5-4.9 [facility] Comment on above: Performed By: #### L [id number] ####[facility] ([facility])[address] [place] [address] PROTIME-INRon 06-22-2023 INR IN PPP BY COAGULATION ASSAY 1.05 Normal 0.90-1.10 [facility] Comment on above: Result Comment: [facility] P RECOMMENDED INR FOR WARFARIN THERAPY CONDITION INRPROPHYLAXIS OF VENOUS THROMBOSIS 2-3(HIGH-RISK SURGERY)TREATMENT OF VENOUS THROMBOSIS 2-3TREATMENT OF PULMONARY EMBOLISM 2-3PREVENTION OF SYSTEMIC EMBOLISM: 2-3 ACUTE MYOCARDIAL INFARCTION TISSUE HEART VALVES VALVULAR HEART DISEASE ATRIAL FIBRILLATION RECURRENT SYSTEMIC EMBOLISMMECHANICAL HEART VALVE 2.5-3.5 FROM: ORAL ANTICOAGULANTS. MECHANISM OF ACTION, CLINICAL EFFECTIVENESS, AND OPTIMAL THERAPEUTIC RANGE. CHEST 1995;108:231S-246S. Performed By: #### L [id number] ####[facility] ([facility])[address] [place] [address] PROTHROMBIN TIME (PT) IN PPP BY COAGULATION ASSAY 13.8 Seconds Normal 12.3-14.8 [facility] Comment on above: Performed By: #### L [id number] ####[facility] ([facility])[address] [place] [address] 30on 06-21-2023 30 The patient is Moderately Stable - Low risk of patient condition declining or worsening The patient's goals for the shift include pain control The clinical goals for the shift include maintain stable VS and labs. Normal [facility] 30 Normal [facility] 30 Normal [facility] APTTon 06-21-2023 ACTIVATED PARTIAL THROMBOPLASTIN TIME IN PPP BY COAGULATION ASSAY 32.7 Seconds Normal 25.0-35.0 [facility] Comment on above: Result Comment: Clin ical significance of the APTT is questionable in the presence of heparin. Performed By: #### L [id number] ####[facility] ([facility])[address] [place] [address] BASIC METABOLIC PANELon Anion gap [Moles/Vol] 18 mmol/L Normal 7-20 [facility] Comment on above: Performed By: #### L [id number] ####[facility] ([facility])[address] [place] [address] Calcium [Mass/Vol] 8.4 mg/dL Low 8.6-10.3 [facility] Comment on above: Performed By: #### L [id number] ####[facility] ([facility])[address] [place] [address] Chloride [Moles/Vol] 100 mmol/L Normal 98-107 [facility] Comment on above: Performed By: #### L [id number] ####[facility] ([facility])[address] [place] [address] CO2 [Moles/Vol] 25 mmol/L Normal 21-31 [facility] Comment on above: Performed By: #### L [id number] ####[facility] ([facility])[address] [place] [address] Creatinine [Mass/Vol] 9.06 mg/dL High 0.70-1.30 [facility] Comment on above: Performed By: #### L [id number] ####[facility] ([facility])[address] [place] [address] GLOMERULAR FILTRATION RATE ML/MIN/1.73 SQ M.PREDICTED 6.4 mL/min/1.73m*2 Low >60.0 [facility] Comment on above: Result Comment: [facility]???s estimated glomerular filtration rate (eGFR) will no longer include consideration of race in its calculation. The National Kidney Foundation???s eGFR Task Force developed new recommendations for the estimation of the glomerular filtration rate in the [place] They recommend immediate implementation of the new equation refit without the race variable in all laboratories because the calculation does not include race. In addition to not including race in the calculation and reporting, it included diversity in its development, and has acceptable performance characteristics and potential consequences that do not disproportionately affect any one group of individuals. Performed By: #### L [id number] ####[facility] ([facility])[address] [place] [address] Glucose [Mass/Vol] 95 mg/dL Normal 70-100 [facility] Comment on above: Performed By: #### L [id number] ####[facility] ([facility])[address] [place] [address] Potassium [Moles/Vol] 4.8 mmol/L Normal 3.5-5.1 [facility] Comment on above: Performed By: #### L [id number] ####[facility] ([facility])[address] [place] [address] Sodium [Moles/Vol] 138 mmol/L Normal 136-145 [facility] Comment on above: Performed By: #### L [id number] ####[facility] ([facility])[address] [place] [address] Urea nitrogen [Mass/Vol] 40 mg/dL High 7-25 [facility] Comment on above: Performed By: #### L [id number] ####[facility] ([facility])[address] [place] [address] UREA NITROGEN/CREATININE (MASS RATIO) IN SER/PLAS 4.4 Normal [facility] Comment on above: Performed By: #### L [id number] ####[facility] ([facility] [place] [address] CBC WITH AUTO DIFFERENTIALon 06-21-2023 Basophils (Bld) [#/Vol] 0.01 10*3/uL Normal 0.00-0.20 [facility] Comment on above: Performed By: #### L [id number] ####[facility] ([facility])[address] [place] [address] Basophils/100 WBC (Bld) 0.1 % Normal 0.0-1.0 [facility] Comment on above: Performed By: #### L [id number] ####[facility] ([facility])[address] [place] [address] Eosinophils (Bld) [#/Vol] 0.00 10*3/uL Normal 0.00-0.50 [facility] Comment on above: Performed By: #### L [id number] ####[facility] ([facility])[address] [place] [address] Eosinophils/100 WBC (Bld) 0.0 % Normal 0.0-6.0 [facility] Comment on above: Performed By: #### L [id number] ####[facility] ([facility] [place] [address] Erythrocyte distribution width (RBC) [Ratio] 14.6 % Normal 11.5-15.0 [facility] Comment on above: Performed By: #### L [id number] ####[facility] ([facility] [place] [address] ERYTHROCYTE MEAN CORPUSCULAR HEMOGLOBIN CONCENTRATION (G/DL) BY AUTOMATED 31.5 g/dL Low 32.0-35.0 [facility] Comment on above: Performed By: #### L [id number] ####[facility] ([facility])[address] [place] [address] Hematocrit (Bld) [Volume fraction] 21.9 % Low 39.0-55.0 [facility] Comment on above: Performed By: #### L [id number] ####[facility] ([facility])[address] [place] [address] Hemoglobin (Bld) [Mass/Vol] 6.9 g/dL Low 13.0-17.0 [facility] Comment on above: Performed By: #### L [id number] ####[facility] ([facility])[address] [place] [address] Immature granulocytes (Bld) [#/Vol] 0.14 10*3/uL Normal 0.00-0.20 [facility] Comment on above: Performed By: #### L [id number] ####[facility] ([facility])[address] [place] [address] Immature granulocytes/100 WBC (Bld) 0.7 % Normal 0.0-1.0 [facility] Comment on above: Performed By: #### L [id number] ####[facility] ([facility])[address] [place] [address] Lymphocytes (Bld) [#/Vol] 0.85 10*3/uL Low 1.20-4.00 [facility] Comment on above: Performed By: #### L [id number] ####[facility] ([facility])[address] [place] [address] Lymphocytes/100 WBC (Bld) 4.3 % Low 20.0-45.0 [facility] Comment on above: Performed By: #### L [id number] ####[facility] ([facility])[address] [place] [address] MCH (RBC) [Entitic mass] 33.3 pg High 27.0-33.0 [facility] Comment on above: Performed By: #### L [id number] ####[facility] ([facility])[address] [place] [address] MCV (RBC) [Entitic vol] 105.8 fL High 82.0-98.0 [facility] Comment on above: Performed By: #### L [id number] ####[facility] ([facility] [place] [address] Monocytes (Bld) [#/Vol] 1.05 10*3/uL High 0.10-1.00 [facility] Comment on above: Performed By: #### L [id number] ####[facility] ([facility])[address] [place] [address] Monocytes/100 WBC (Bld) 5.4 % Normal 5.0-12.0 [facility] Comment on above: Performed By: #### L [id number] ####[facility] ([facility])[address] [place] [address] Neutrophils (Bld) [#/Vol] 17.53 10*3/uL High 1.60-7.60 [facility] Comment on above: Performed By: #### L [id number] ####[facility] ([facility])[address] [place] [address] Neutrophils/100 WBC (Bld) 89.5 % High 40.0-72.0 [facility] Comment on above: Performed By: #### L [id number] ####[facility] ([facility] [place] [address] NRBC (PER 100 WBCS) BY AUTOMATED COUNT 0.0 % Normal 0 [facility] Comment on above: Performed By: #### L [id number] ####[facility] ([facility] [place] [address] PLATELETS (10*3/UL) IN BLOOD AUTOMATED COUNT 397 10*3/uL Normal 150-400 [facility] Comment on above: Performed By: #### L [id number] ####[facility] ([facility] [place] [address] RBC (Bld) [#/Vol] 2.07 10*6/uL Low 4.20-5.70 [facility] Comment on above: Performed By: #### L [id number] ####[facility] ([facility])[address] [place] [address] WBC (Bld) [#/Vol] 19.58 10*3/uL High 4.00-10.60 [facility] Comment on above: Performed By: #### L [id number] ####[facility] ([facility])[address] [place] [address] CONSULTon 06-21-2023 CONSULT Normal [facility] HEMOGLOBIN AND HEMATOCRIT, B LOODon 06-21-2023 Hematocrit (Bld) [Volume fraction] 19.5 % Low 39.0-55.0 [facility] Comment on above: Performed By: #### L [id number] ####[facility] ([facility])[address] [place] [address] Hemoglobin (Bld) [Mass/Vol] 6.4 g/dL Low 13.0-17.0 [facility] Comment on above: Performed By: #### L [id number] ####[facility] ([facility])[address] [place] [address] Hematocrit (Bld) [Volume fraction] 20.9 % Low 39.0-55.0 [facility] Comment on above: Performed By: #### L [id number] ####[facility] ([facility])[address] [place] [address] Hemoglobin (Bld) [Mass/Vol] 7.0 g/dL Low 13.0-17.0 [facility] Comment on above: Performed By: #### L [id number] ####[facility] ([facility])[address] [place] [address] Hematocrit (Bld) [Volume fraction] 23.3 % Low 39.0-55.0 [facility] Comment on above: Performed By: #### L [id number] ####[facility] ([facility])[address] [place] [address] Hemoglobin (Bld) [Mass/Vol] 7.7 g/dL Low 13.0-17.0 [facility] Comment on above: Performed By: #### L [id number] ####[facility] ([facility])[address] [place] [address] HEPATITIS B SURFACE ANTIGENo n 06-21-2023 HEPATITIS B VIRUS SURFACE AG PRESENCE IN SERUM Non-Reactive Normal Nonreactive [facility] Comment on above: Performed By: #### L [id number] ####[facility] ([facility])[address] [place] [address] LACTIC ACID WITH 4 HOUR REFL EXon 06-21-2023 LACTATE (MMOL/L) IN SER/PLAS 1.1 mmol/L Normal 0.5-2.2 [facility] Comment on above: Performed By: #### L [id number] ####[facility] ([facility])[address] [place] [address] MAGNESIUMon 06-21-2023 Magnesium [Mass/Vol] 1.7 mg/dL Low 1.9-2.7 [facility] Comment on above: Performed By: #### L [id number] ####[facility] ([facility])[address] [place] [address] PHOSPHORUSon 06-21-2023 Magnesium [Mass/Vol] 6.9 mg/dL High 2.5-5.0 [facility] Comment on above: Performed By: #### L [id number] ####[facility] ([facility])[address] [place] [address] PROTIME-INRon 06-21-2023 INR IN PPP BY COAGULATION ASSAY 1.12 High 0.90-1.10 [facility] Comment on above: Result Comment: [facility] P RECOMMENDED INR FOR WARFARIN THERAPY CONDITION INRPROPHYLAXIS OF VENOUS THROMBOSIS 2-3(HIGH-RISK SURGERY)TREATMENT OF VENOUS THROMBOSIS 2-3TREATMENT OF PULMONARY EMBOLISM 2-3PREVENTION OF SYSTEMIC EMBOLISM: 2-3 ACUTE MYOCARDIAL INFARCTION TISSUE HEART VALVES VALVULAR HEART DISEASE ATRIAL FIBRILLATION RECURRENT SYSTEMIC EMBOLISMMECHANICAL HEART VALVE 2.5-3.5 FROM: ORAL ANTICOAGULANTS. MECHANISM OF ACTION, CLINICAL EFFECTIVENESS, AND OPTIMAL THERAPEUTIC RANGE. CHEST 1995;108:231S-246S. Performed By: #### L [id number] ####[facility] ([employer])[address] [place] [address] PROTHROMBIN TIME (PT) IN PPP BY COAGULATION ASSAY 14.4 Seconds Normal 12.3-14.8 [facility] Comment on above: Performed By: #### L [id number] ####[facility] ([employer])[address] [place] [address] ANESon 06-20-2023 ANES Normal [facility] ANES Normal [facility] APTTon 06-20-2023 ACTIVATED PARTIAL THROMBOPLASTIN TIME IN PPP BY COAGULATION ASSAY 29.3 Seconds Normal 25.0-35.0 [facility] Comment on above: Result Comment: Clin ical significance of the APTT is questionable in the presence of heparin. Performed By: #### L [id number] ####[facility] ([employer])[address] [place] [address] BASIC METABOLIC PANELon Anion gap [Moles/Vol] 16 mmol/L Normal 7-20 [facility] Comment on above: Performed By: #### L [id number] ####[facility] ([employer])[address] [place] [address] Calcium [Mass/Vol] 8.0 mg/dL Low 8.6-10.3 [facility] Comment on above: Performed By: #### L [id number] ####[facility] ([employer])[address] [place] [address] Chloride [Moles/Vol] 102 mmol/L Normal 98-107 [facility] Comment on above: Performed By: #### L [id number] ####[facility] ([facility])[address] [place] [address] CO2 [Moles/Vol] 24 mmol/L Normal 21-31 [facility] Comment on above: Performed By: #### L [id number] ####[facility] ([facility])[address] [place] [address] Creatinine [Mass/Vol] 8.34 mg/dL High 0.70-1.30 [facility] Comment on above: Performed By: #### L [id number] ####[facility] ([facility])[address] [place] [address] GLOMERULAR FILTRATION RATE ML/MIN/1.73 SQ M.PREDICTED 7.0 mL/min/1.73m*2 Low >60.0 [facility] Comment on above: Result Comment: [facility]???s estimated glomerular filtration rate (eGFR) will no longer include consideration of race in its calculation. The National Kidney Foundation???s eGFR Task Force developed new recommendations for the estimation of the glomerular filtration rate in the [place] They recommend immediate implementation of the new equation refit without the race variable in all laboratories because the calculation does not include race. In addition to not including race in the calculation and reporting, it included diversity in its development, and has acceptable performance characteristics and potential consequences that do not disproportionately affect any one group of individuals. Performed By: #### L [id number] ####[facility] [place] [address] Glucose [Mass/Vol] 131 mg/dL High 70-100 [facility] Comment on above: Performed By: #### L [id number] ####[facility] ([facility])[address] [place] [address] Potassium [Moles/Vol] 4.5 mmol/L Normal 3.5-5.1 [facility] Comment on above: Performed By: #### L [id number] ####[facility] (BEAKER)[address] [place] [address] Sodium [Moles/Vol] 137 mmol/L Normal 136-145 [facility] Comment on above: Performed By: #### L [id number] ####[facility] ([facility])[address] [place] [address] Urea nitrogen [Mass/Vol] 33 mg/dL High 7-25 [facility] Comment on above: Performed By: #### L [id number] ####[facility] ([facility])[address] [place] [address] UREA NITROGEN/CREATININE (MASS RATIO) IN SER/PLAS 4.0 Normal [facility] Comment on above: Performed By: #### L [id number] ####[facility] ([facility])[address] [place] [address] CBC WITH AUTO DIFFERENTIALon 06-20-2023 Basophils (Bld) [#/Vol] 0.05 10*3/uL Normal 0.00-0.20 [facility] Comment on above: Performed By: #### L [id number] ####[facility] ([facility])[address] [place] [address] Basophils/100 WBC (Bld) 0.2 % Normal 0.0-1.0 [facility] Comment on above: Performed By: #### L [id number] ####[facility] ([facility])[address] [place] [address] Eosinophils (Bld) [#/Vol] 0.04 10*3/uL Normal 0.00-0.50 [facility] Comment on above: Performed By: #### L [id number] ####[facility] ([facility])[address] [place] [address] Eosinophils/100 WBC (Bld) 0.1 % Normal 0.0-6.0 [facility] Comment on above: Performed By: #### L [id number] ####[facility] [place] [address] Erythrocyte distribution width (RBC) [Ratio] 14.5 % Normal 11.5-15.0 [facility] Comment on above: Performed By: #### L [id number] ####[facility] [place] [address] ERYTHROCYTE MEAN CORPUSCULAR HEMOGLOBIN CONCENTRATION (G/DL) BY AUTOMATED 32.1 g/dL Normal 32.0-35.0 [facility] Comment on above: Performed By: #### L [id number] ####[facility] ([facility])[address] [place] [address] Hematocrit (Bld) [Volume fraction] 24.9 % Low 39.0-55.0 [facility] Comment on above: Performed By: #### L [id number] ####[facility] ([facility] [place] [address] Hemoglobin (Bld) [Mass/Vol] 8.0 g/dL Low 13.0-17.0 [facility] Comment on above: Performed By: #### L [id number] ####[facility] (BEAKER)[address] [place] [address] Immature granulocytes (Bld) [#/Vol] 0.22 10*3/uL High 0.00-0.20 [facility] Comment on above: Performed By: #### L [id number] ####[facility] (BEAKER)[address] [place] [address] Immature granulocytes/100 WBC (Bld) 0.7 % Normal 0.0-1.0 [facility] Comment on above: Performed By: #### L [id number] ####[facility] (BEAKER)[address] [place] [address] Lymphocytes (Bld) [#/Vol] 0.84 10*3/uL Low 1.20-4.00 [facility] Comment on above: Performed By: #### L [id number] ####[facility] (BEAKER)[address] [place] [address] Lymphocytes/100 WBC (Bld) 2.9 % Low 20.0-45.0 [facility] Comment on above: Performed By: #### L [id number] ####[facility] ([facility])[address] [place] [address] MCH (RBC) [Entitic mass] 33.9 pg High 27.0-33.0 [facility] Comment on above: Performed By: #### L [id number] ####[facility] ([facility])[address] [place] [address] MCV (RBC) [Entitic vol] 105.5 fL High 82.0-98.0 [facility] Comment on above: Performed By: #### L [id number] ####[facility] ([facility])[address] [place] [address] Monocytes (Bld) [#/Vol] 1.34 10*3/uL High 0.10-1.00 [facility] Comment on above: Performed By: #### L [id number] ####[facility] ([facility])[address] [place] [address] Monocytes/100 WBC (Bld) 4.6 % Low 5.0-12.0 [facility] Comment on above: Performed By: #### L [id number] ####[facility] ([facility])[address] [place] [address] Neutrophils (Bld) [#/Vol] 26.85 10*3/uL High 1.60-7.60 [facility] Comment on above: Performed By: #### L [id number] ####[facility] ([facility] [place] [address] Neutrophils/100 WBC (Bld) 91.5 % High 40.0-72.0 [facility] Comment on above: Performed By: #### L [id number] ####[facility] ([facility] [place] [address] NRBC (PER 100 WBCS) BY AUTOMATED COUNT 0.0 % Normal 0 [facility] Comment on above: Performed By: #### L [id number] ####[facility] (BEAKER)[address] [place] [address] PLATELETS (10*3/UL) IN BLOOD AUTOMATED COUNT 458 10*3/uL High 150-400 [facility] Comment on above: Performed By: #### L [id number] ####[facility] (BEAKER)[address] [place] [address] RBC (Bld) [#/Vol] 2.36 10*6/uL Low 4.20-5.70 [facility] Comment on above: Performed By: #### L [id number] ####[facility] (BEAKER)[address] [place] [address] WBC (Bld) [#/Vol] 29.34 10*3/uL High 4.00-10.60 [facility] Comment on above: Performed By: #### L [id number] ####[facility] (BEAKER)[address] [place] [address] CONSULTon 06-20-2023 CONSULT Normal [facility] HEMOGLOBIN AND HEMATOCRIT, B LOODon 06-20-2023 Hematocrit (Bld) [Volume fraction] 22.2 % Low 39.0-55.0 [facility] Comment on above: Performed By: #### L [id number] ####[facility] (BEAKER)[address] [place] [address] Hemoglobin (Bld) [Mass/Vol] 7.3 g/dL Low 13.0-17.0 [facility] Comment on above: Performed By: #### L [id number] ####[facility] (BEAKER)[address] [place] [address] HPon 06-20-2023 HP Normal [facility] HP Normal [facility] LACTIC ACID, PLASMAon 2022 LACTATE (MMOL/L) IN SER/PLAS 1.0 mmol/L Normal 0.5-2.2 [facility] Comment on above: Performed By: #### L [id number] ####[facility] (BEAKER)[address] [place] [address] MAGNESIUMon 06-20-2023 Magnesium [Mass/Vol] 1.7 mg/dL Low 1.9-2.7 [facility] Comment on above: Performed By: #### L [id number] ####[facility] (BE[facility]ER)[address] [place] [address] NURSNOTEon 06-20-2023 NURSNOTE Normal [facility] NURSNOTE PERIOPERATIVE ACT - 201 (1318) [facility] NURSNOTE PERIOPERATIVE ACT - 272 (1242) [facility] NURSNOTE PERIOPERATIVE ACT - 138 (0925) ACT - 220 (1117) ACT- 233 (1134) ACT - 226 (1202) ACT - 239 (1211) [facility] OPNOTEon 06-20-2023 OPNOTE Normal [facility] PHOSPHORUSon 06-20-2023 Magnesium [Mass/Vol] 5.5 mg/dL High 2.5-5.0 [facility] Comment on above: Performed By: #### L [id number] ####[facility] (BE[facility]ER)[address] [place] [address] POCT ACTIVATED CLOTTING TIME UNSOLICITED RESULTSon 06-20-2023 POC ACTIVATED CLOTTING TIME 201 sec High 82-152 [facility] Comment on above: Performed By: #### L [id number] ####[facility] (BEAKER)[address] [place] [address] POC ACTIVATED CLOTTING TIME 272 sec High 82-152 [facility] Comment on above: Performed By: #### L [id number] ####[facility] (BE[facility]ER)[address] [place] [address] POC ACTIVATED CLOTTING TIME 239 sec High 82-152 [facility] Comment on above: Performed By: #### L [id number] ####[facility] (BE[facility]ER)[address] [place] [address] POC ACTIVATED CLOTTING TIME 226 sec High 82-152 [facility] Comment on above: Performed By: #### L [id number] ####[facility] ([facility])[address] [place] [address] POC ACTIVATED CLOTTING TIME 233 sec High 82-152 [facility] Comment on above: Performed By: #### L [id number] ####[facility] ([facility])[address] [place] [address] POC ACTIVATED CLOTTING TIME 220 sec High 82-152 [facility] Comment on above: Performed By: #### L [id number] ####[facility] ([facility])[address] [place] [address] POC ACTIVATED CLOTTING TIME 138 sec Normal 82-152 [facility] Comment on above: Performed By: #### L [id number] ####[facility] ([facility])[address] [place] [address] POCT GLUCOSE METER UNSOLICIT ED RESULTSon 06-20-2023 Glucose [Mass/Vol] 89 mg/dL Normal 70-105 [facility] Comment on above: Order Comment: Waive d Testing in the ED is performed under the ED CLIA certificate #[id number]. Result Comment: [email or web address] Performed By: #### L [id number] ####[facility] ([facility])[address] [place] [address] POCT PERFUSION PANEL UNSOLIC ITED RESULTSon 06-20-2023 CO2 [Moles/Vol] 27.0 mmol/L Normal 21.0-29.0 [facility] Comment on above: Performed By: #### L [id number] ####[facility] ([facility])[address] [place] [address] Glucose [Mass/Vol] 127 mg/dL High 70-105 [facility] Comment on above: Performed By: #### L [id number] ####[facility] ([facility])[address] [place] [address] HCO3 (Bld) [Moles/Vol] 25.4 mmol/L Normal 23.0-28.0 [facility] Comment on above: Performed By: #### L [id number] ####[facility] (BEAKER)[address] [place] [address] Hematocrit (Bld) [Volume fraction] 26 % Low 38-51 [facility] Comment on above: Performed By: #### L [id number] ####[facility] (BEAKER)[address] [place] [address] Hemoglobin (Bld) [Mass/Vol] 8.8 g/dL Low 12.0-17.0 [facility] Comment on above: Performed By: #### L [id number] ####[facility] (BEAKER)[address] [place] [address] POCT BASE EXCESS 0.0 mmol/L Normal -2.0-3.0 [facility] Comment on above: Performed By: #### L [id number] ####[facility] (BEAKER)[address] [place] [address] POCT IONIZED CALCIUM 1.14 mmol/L Normal 1.12-1.32 [facility] Comment on above: Performed By: #### L [id number] ####[facility] ([facility]ER)[address] [place] [address] POCT PCO2 44.9 mmHg Normal 41.0-51.0 [facility] Comment on above: Performed By: #### L [id number] ####[facility] (BE[facility]ER)[address] [place] [address] POCT PH 7.36 Normal 7.31-7.41 [facility] Comment on above: Performed By: #### L [id number] ####[facility] (BE[facility]ER)[address] [place] [address] POCT PO2 106 mmHg High 80-105 [facility] Comment on above: Performed By: #### L [id number] ####[facility] (BEAKER)[address] [place] [address] POCT SO2 98 % Normal 95-98 [facility] Comment on above: Performed By: #### L [id number] ####[facility] (BE[facility]ER)[address] [place] [address] Potassium [Moles/Vol] 4.4 mmol/L Normal 3.5-4.9 [facility] Comment on above: Performed By: #### L [id number] ####[facility] ([facility]ER)[address] [place] [address] Sodium [Moles/Vol] 137 mmol/L Low 138.0-146.0 [facility] Comment on above: Performed By: #### L [id number] ####[facility] (BEAKER)[address] [place] [address] CO2 [Moles/Vol] 30.0 mmol/L High 21.0-29.0 [facility] Comment on above: Performed By: #### L [id number] ####[facility] (BEAKER)[address] [place] [address] Glucose [Mass/Vol] 116 mg/dL High 70-105 [facility] Comment on above: Performed By: #### L [id number] ####[facility] (BEAKER)[address] [place] [address] HCO3 (Bld) [Moles/Vol] 28.5 mmol/L High 23.0-28.0 [facility] Comment on above: Performed By: #### L [id number] ####[facility] ([facility]ER)[address] [place] [address] Hematocrit (Bld) [Volume fraction] 29 % Low 38-51 [facility] Comment on above: Performed By: #### L [id number] ####[facility] (BE[facility]ER)[address] [place] [address] Hemoglobin (Bld) [Mass/Vol] 9.9 g/dL Low 12.0-17.0 [facility] Comment on above: Performed By: #### L [id number] ####[facility] (BE[facility]ER)[address] [place] [address] POCT BASE EXCESS 4.0 mmol/L High -2.0-3.0 [facility] Comment on above: Performed By: #### L [id number] ####[facility] (BE[facility]ER)[address] [place] [address] POCT IONIZED CALCIUM 1.16 mmol/L Normal 1.12-1.32 [facility] Comment on above: Performed By: #### L [id number] ####[facility] (BE[facility]ER)[address] [place] [address] POCT PCO2 44.2 mmHg Normal 41.0-51.0 [facility] Comment on above: Performed By: #### L [id number] ####[facility] (BEAKER)[address] [place] [address] POCT PH 7.42 High 7.31-7.41 [facility] Comment on above: Performed By: #### L [id number] ####[facility] (BEAKER)[address] [place] [address] POCT PO2 133 mmHg High 80-105 [facility] Comment on above: Performed By: #### L [id number] ####[facility] (BEAKER)[address] [place] [address] POCT SO2 99 % High 95-98 [facility] Comment on above: Performed By: #### L [id number] ####[facility] (BEAKER)[address] [place] [address] Potassium [Moles/Vol] 4.0 mmol/L Normal 3.5-4.9 [facility] Comment on above: Performed By: #### L [id number] ####[facility] (BEAKER)[address] [place] [address] Sodium [Moles/Vol] 133 mmol/L Low 138.0-146.0 [facility] Comment on above: Performed By: #### L [id number] ####[facility] (BEAKER)[address] [place] [address] CO2 [Moles/Vol] 30.0 mmol/L High 21.0-29.0 [facility] Comment on above: Performed By: #### L [id number] ####[facility] (BE[facility]ER)[address] [place] [address] Glucose [Mass/Vol] 114 mg/dL High 70-105 [facility] Comment on above: Performed By: #### L [id number] ####[facility] (BEAKER)[address] [place] [address] HCO3 (Bld) [Moles/Vol] 28.9 mmol/L High 23.0-28.0 [facility] Comment on above: Performed By: #### L [id number] ####[facility] (BEAKER)[address] [place] [address] Hematocrit (Bld) [Volume fraction] 28 % Low 38-51 [facility] Comment on above: Performed By: #### L [id number] ####[facility] (BEAKER)[address] [place] [address] Hemoglobin (Bld) [Mass/Vol] 9.5 g/dL Low 12.0-17.0 [facility] Comment on above: Performed By: #### L [id number] ####[facility] (BEAKER)[address] [place] [address] POCT BASE EXCESS 4.0 mmol/L High -2.0-3.0 [facility] Comment on above: Performed By: #### L [id number] ####[facility] (BEAKER)[address] [place] [address] POCT IONIZED CALCIUM 1.16 mmol/L Normal 1.12-1.32 [facility] Comment on above: Performed By: #### L [id number] ####[facility] ([facility]ER)[address] [place] [address] POCT PCO2 46.0 mmHg Normal 41.0-51.0 [facility] Comment on above: Performed By: #### L [id number] ####[facility] (BE[facility]ER)[address] [place] [address] POCT PH 7.41 Normal 7.31-7.41 [facility] Comment on above: Performed By: #### L [id number] ####[facility] (BEAKER)[address] [place] [address] POCT PO2 259 mmHg High 80-105 [facility] Comment on above: Performed By: #### L [id number] ####[facility] [place] [address] POCT SO2 100 % High 95-98 [facility] Comment on above: Performed By: #### L [id number] ####[facility] ([facility])[address] [place] [address] Potassium [Moles/Vol] 3.9 mmol/L Normal 3.5-4.9 [facility] Comment on above: Performed By: #### L [id number] ####[facility] ([facility] [place] [address] Sodium [Moles/Vol] 135 mmol/L Low 138.0-146.0 [facility] Comment on above: Performed By: #### L [id number] ####[facility] (BEAKER)[address] [place] [address] CO2 [Moles/Vol] 31.0 mmol/L High 21.0-29.0 [facility] Comment on above: Performed By: #### L [id number] ####[facility] ([facility] [place] [address] Glucose [Mass/Vol] 84 mg/dL Normal 70-105 [facility] Comment on above: Performed By: #### L [id number] ####[facility] (BEAKER)[address] [place] [address] HCO3 (Bld) [Moles/Vol] 29.3 mmol/L High 23.0-28.0 [facility] Comment on above: Performed By: #### L [id number] ####[facility] (BEAKER)[address] [place] [address] Hematocrit (Bld) [Volume fraction] 26 % Low 38-51 [facility] Comment on above: Performed By: #### L [id number] ####[facility] (BE[facility]ER)[address] [place] [address] Hemoglobin (Bld) [Mass/Vol] 8.8 g/dL Low 12.0-17.0 [facility] Comment on above: Performed By: #### L [id number] ####[facility] (BE[facility]ER)[address] [place] [address] POCT BASE EXCESS 4.0 mmol/L High -2.0-3.0 [facility] Comment on above: Performed By: #### L [id number] ####[facility] (BE[facility]ER)[address] [place] [address] POCT IONIZED CALCIUM 1.17 mmol/L Normal 1.12-1.32 [facility] Comment on above: Performed By: #### L [id number] ####[facility] (BE[facility]ER)[address] [place] [address] POCT PCO2 44.6 mmHg Normal 41.0-51.0 [facility] Comment on above: Performed By: #### L [id number] ####[facility] (BE[facility]ER)[address] [place] [address] POCT PH 7.43 High 7.31-7.41 [facility] Comment on above: Performed By: #### L [id number] ####[facility] (BE[facility]ER)[address] [place] [address] POCT PO2 138 mmHg High 80-105 [facility] Comment on above: Performed By: #### L [id number] ####[facility] (BE[facility]ER)[address] [place] [address] POCT SO2 99 % High 95-98 [facility] Comment on above: Performed By: #### L [id number] ####[facility] (BE[facility]ER)[address] [place] [address] Potassium [Moles/Vol] 3.9 mmol/L Normal 3.5-4.9 [facility] Comment on above: Performed By: #### L [id number] ####[facility] (BE[facility]ER)[address] [place] [address] Sodium [Moles/Vol] 135 mmol/L Low 138.0-146.0 [facility] Comment on above: Performed By: #### L [id number] ####[facility] (BEAKER)[address] [place] [address] CO2 [Moles/Vol] 32.0 mmol/L High 21.0-29.0 [facility] Comment on above: Performed By: #### L [id number] ####[facility] (BE[facility]ER)[address] [place] [address] Glucose [Mass/Vol] 83 mg/dL Normal 70-105 [facility] Comment on above: Performed By: #### L [id number] ####[facility] (BE[facility]ER)[address] [place] [address] HCO3 (Bld) [Moles/Vol] 30.5 mmol/L High 23.0-28.0 [facility] Comment on above: Performed By: #### L [id number] ####[facility] (BEAKER)[address] [place] [address] Hematocrit (Bld) [Volume fraction] 31 % Low 38-51 [facility] Comment on above: Performed By: #### L [id number] ####[facility] (BE[facility]ER)[address] [place] [address] Hemoglobin (Bld) [Mass/Vol] 10.5 g/dL Low 12.0-17.0 [facility] Comment on above: Performed By: #### L [id number] ####[facility] (BE[facility]ER)[address] [place] [address] POCT BASE EXCESS 5.0 mmol/L High -2.0-3.0 [facility] Comment on above: Performed By: #### L [id number] ####[facility] (BEAKER)[address] [place] [address] POCT IONIZED CALCIUM 1.22 mmol/L Normal 1.12-1.32 [facility] Comment on above: Performed By: #### L [id number] ####[facility] [place] [address] POCT PCO2 51.3 mmHg High 41.0-51.0 [facility] Comment on above: Performed By: #### L [id number] ####[facility] [place] [address] POCT PH 7.38 Normal 7.31-7.41 [facility] Comment on above: Performed By: #### L [id number] ####[facility] (BEAKER)[address] [place] [address] POCT PO2 25 mmHg Low 80-105 [facility] Comment on above: Performed By: #### L [id number] ####[facility] [place] [address] POCT SO2 42 % Low 95-98 [facility] Comment on above: Performed By: #### L [id number] ####[facility] ([facility] [place] [address] Potassium [Moles/Vol] 3.9 mmol/L Normal 3.5-4.9 [facility] Comment on above: Performed By: #### L [id number] ####[facility] (BEAKER)[address] [place] [address] Sodium [Moles/Vol] 136 mmol/L Low 138.0-146.0 [facility] Comment on above: Performed By: #### L [id number] ####[facility] (BEAKER)[address] [place] [address] PROTIME-INRon 06-20-2023 INR IN PPP BY COAGULATION ASSAY 1.10 Normal 0.90-1.10 [facility] Comment on above: Result Comment: [facility] P RECOMMENDED INR FOR WARFARIN THERAPY CONDITION INRPROPHYLAXIS OF VENOUS THROMBOSIS 2-3(HIGH-RISK SURGERY)TREATMENT OF VENOUS THROMBOSIS 2-3TREATMENT OF PULMONARY EMBOLISM 2-3PREVENTION OF SYSTEMIC EMBOLISM: 2-3 ACUTE MYOCARDIAL INFARCTION TISSUE HEART VALVES VALVULAR HEART DISEASE ATRIAL FIBRILLATION RECURRENT SYSTEMIC EMBOLISMMECHANICAL HEART VALVE 2.5-3.5 FROM: ORAL ANTICOAGULANTS. MECHANISM OF ACTION, CLINICAL EFFECTIVENESS, AND OPTIMAL THERAPEUTIC RANGE. CHEST 1995;108:231S-246S. Performed By: #### L [id number] ####[facility] [employer])[address] [place] [address] PROTHROMBIN TIME (PT) IN PPP BY COAGULATION ASSAY 14.3 Seconds Normal 12.3-14.8 [facility] Comment on above: Performed By: #### L [id number] ####[facility] (BEAKER)[address] [place] [address] TYPE AND SCREENon 06-20-2023 AB SCREEN Negative Normal [facility] Comment on above: Performed By: #### L [id number] ####[facility] BLOOD BANK, ABO group Nom (Bld) O Normal [facility] Comment on above: Performed By: #### L [id number] ####[facility], RH TYPE IN BLOOD Positive Normal [facility] Comment on above: Performed By: #### L [id number] ####[facility], [id number] 06-06-2023 [id number] Normal [facility] BASIC METABOLIC PANELon 05-15 Anion gap [Moles/Vol] 19 mmol/L Normal 7-20 [facility] Comment on above: Performed By: #### L [id number] ####[facility] [place] [address] Calcium [Mass/Vol] 9.7 mg/dL Normal 8.6-10.3 [facility] Comment on above: Performed By: #### L [id number] ####[facility] (BEAKER)[address] [place] [address] Chloride [Moles/Vol] 91 mmol/L Low 98-107 [facility] Comment on above: Performed By: #### L [id number] ####[facility] ([facility])[address] [place] [address] CO2 [Moles/Vol] 27 mmol/L Normal 21-31 [facility] Comment on above: Performed By: #### L [id number] ####[facility] ([facility])[address] [place] [address] Creatinine [Mass/Vol] 10.41 mg/dL High 0.70-1.30 [facility] Comment on above: Performed By: #### L [id number] ####[facility] ([facility])[address] [place] [address] GLOMERULAR FILTRATION RATE ML/MIN/1.73 SQ M.PREDICTED 5.4 mL/min/1.73m*2 Low >60.0 [facility] Comment on above: Result Comment: [facility]???s estimated glomerular filtration rate (eGFR) will no longer include consideration of race in its calculation. The [employer]???s eGFR Task Force developed new recommendations for the estimation of the glomerular filtration rate in the [place] They recommend immediate implementation of the new equation refit without the race variable in all laboratories because the calculation does not include race. In addition to not including race in the calculation and reporting, it included diversity in its development, and has acceptable performance characteristics and potential consequences that do not disproportionately affect any one group of individuals. Performed By: #### L [id number] ####[facility] ([facility])[address] [place] [address] Glucose [Mass/Vol] 80 mg/dL Normal 70-100 [facility] Comment on above: Performed By: #### L [id number] ####[facility] ([facility])[address] [place] [address] Potassium [Moles/Vol] 4.7 mmol/L Normal 3.5-5.1 [facility] Comment on above: Performed By: #### L [id number] ####[facility] ([facility])[address] [place] [address] Sodium [Moles/Vol] 132 mmol/L Low 136-145 [facility] Comment on above: Performed By: #### L [id number] ####[facility] ([facility])[address] [place] [address] Urea nitrogen [Mass/Vol] 38 mg/dL High 7-25 [facility] Comment on above: Performed By: #### L [id number] ####[facility] ([facility])[address] [place] [address] UREA NITROGEN/CREATININE (MASS RATIO) IN SER/PLAS 3.7 Normal [facility] Comment on above: Performed By: #### L [id number] ####[facility] ([facility])[address] [place] [address] CBCon 05-25-2023 Erythrocyte distribution width (RBC) [Ratio] 13.8 % Normal 11.5-15.0 [facility] Comment on above: Performed By: #### L [id number] ####[facility] ([facility])[address] [place] [address] ERYTHROCYTE MEAN CORPUSCULAR HEMOGLOBIN CONCENTRATION (G/DL) BY AUTOMATED 33.5 g/dL Normal 32.0-35.0 [facility] Comment on above: Performed By: #### L [id number] ####[facility] ([facility] [place] [address] Hematocrit (Bld) [Volume fraction] 32.5 % Low 39.0-55.0 [facility] Comment on above: Performed By: #### L [id number] ####[facility] ([facility] [place] [address] Hemoglobin (Bld) [Mass/Vol] 10.9 g/dL Low 13.0-17.0 [facility] Comment on above: Performed By: #### L [id number] ####[facility] ([facility])[address] [place], [place] [address] MCH (RBC) [Entitic mass] 34.6 pg High 27.0-33.0 [facility] Comment on above: Performed By: #### L [id number] ####[facility] ([facility])[address] [place] [address] MCV (RBC) [Entitic vol] 103.2 fL High 82.0-98.0 [facility] Comment on above: Performed By: #### L [id number] ####[facility] ([facility])[address] [place] [address] PLATELETS (10*3/UL) IN BLOOD AUTOMATED COUNT 246 10*3/uL Normal 150-400 [facility] Comment on above: Performed By: #### L [id number] ####[facility] ([facility])[address] [place] [address] RBC (Bld) [#/Vol] 3.15 10*6/uL Low 4.20-5.70 [facility] Comment on above: Performed By: #### L [id number] ####[facility] ([facility] [place] [address] WBC (Bld) [#/Vol] 6.40 10*3/uL Normal 4.00-10.60 [facility] Comment on above: Performed By: #### L [id number] ####[facility] ([facility])[address] [place] [address] Follow-Upon 05-25-2023 Follow-Up Normal [facility] HPon 05-25-2023 HP Normal [facility] Labon 05-25-2023 Lab Normal [facility] TYPE AND SCREENon 05-25-2023 AB SCREEN Negative Normal [facility] Comment on above: Performed By: #### L [id number] ####[facility] BLOOD [facility], ABO group Nom (Bld) O Normal [facility] Comment on above: Performed By: #### L [id number] ####[facility]OD [facility], RH TYPE IN BLOOD Positive Normal [facility] Comment on above: Performed By: #### L [id number] ####[facility]OD [facility], Basic Metabolic Panelon Anion gap [Moles/Vol] 19.9 mmol/L High 6.0-15.0 Th e [facility] Comment on above: Performed By: #### C BC, BMP #### [facility] [address] [place] [id number] [place] Calcium [Mass/Vol] 9.0 mg/dL Normal 8.6-10.3 The Count includes the [facility] Comment on above: Performed By: #### C BC, BMP #### [facility] [address] [place] [phone] [place] Chloride [Moles/Vol] 95 mmol/L Low 98-107 [facility] Comment on above: Performed By: #### C BC, BMP #### [facility] [address] [place] [address] [place] CO2 [Moles/Vol] 25.6 mmol/L Normal 21.0-31.0 The [facility] Comment on above: Performed By: #### C BC, BMP #### [facility] [address] [place] [phone] [place] Creatinine [Mass/Vol] 13.60 mg/dL High 0.70-1.30 Th e [facility] Comment on above: Performed By: #### C BC, BMP #### [place] [address] Creatinine Clr Calc Pharmacy 7.38 Normal [facility] Comment on above: Performed By: #### C MEET, BMP #### [address] GFR/1.73 sq M.predicted MDRD (S/P/Bld) [Vol rate/Area] 3.902 mL/min/{1.73_m2} Normal [facility] Comment on above: Performed By: #### C MEET, BMP #### [address] Glucose [Mass/Vol] 89 mg/dL Normal 70-100 The Count includes the [facility] Comment on above: Result Comment: [facility] Glucose Reference Range is dependent on time and content of last meal. Glucose of more than 200 mg/dL in a nonstressed, ambulatory subject supports the diagnosis of Diabetes Mellitus. ADA recommended reference range Performed By: #### C MEET, BMP #### [address] Potassium [Moles/Vol] 5.5 mmol/L High 3.5-5.1 The [facility] Comment on above: Performed By: #### C MEET, BMP #### [address] Sodium [Moles/Vol] 135 mmol/L Low 136-145 The Count includes the [facility] Comment on above: Performed By: #### C MEET, BMP #### [address] Urea nitrogen [Mass/Vol] 63 mg/dL High 7-25 [facility] Comment on above: Performed By: #### C MEET, BMP #### [place] [address] [place] Basophils Auto (Bld) [#/Vol] Ordered By: Zo Serrano on 05-22-2023 Basophils (Bld) [#/Vol] 0.1 10*3/uL 0.0-0.2 [facility] Basophils/100 WBC Auto (Bld) Ordered By: Zo Serrano on 08-08-2023 Basophils/100 WBC (Bld) 0.4 % . [facility] Calcium [Mass/volume] in Ser um or PlasmaOrdered By: Zo Serrano on 05-22-2023 Calcium [Mass/Vol] 9.0 mg/dL 8.6-10.3 [facility] Carbon dioxide, total [Moles /volume] in Serum or PlasmaOrdered By: Zo eSrrano on 05-22-2023 CO2 [Moles/Vol] 25.6 mmol/L 21.0-31.0 [facility] Chloride [Moles/volume] in S timi or PlasmaOrdered By: Zo Serrano on 05-22-2023 Chloride [Moles/Vol] 95 mmol/L 98-107 [facility] Complete Blood Count Auto Di ffon 05-22-2023 Basophils (Bld) [#/Vol] 0.1 10*3/uL Normal 0.0-0.2 The [facility] Comment on above: Result Comment: PERF ORMED BY: [place] [address] PATHOLOGIST [employer] JM BERRY M.D. Performed By: #### C BC, BMP #### [address] Basophils/100 WBC (Bld) 0.4 % Normal . [facility] Comment on above: Performed By: #### C BC, BMP #### [place] [address] [place] Eosinophils (Bld) [#/Vol] 0.4 10*3/uL Normal 0.0-0.45 [facility] Comment on above: Performed By: #### C BC, BMP #### [facility] [address] [place] [address] [place] Eosinophils/100 WBC (Bld) 2.1 % Normal . The [facility] Comment on above: Performed By: #### C BC, BMP #### [address] Erythrocyte distribution width (RBC) [Ratio] 15.4 % High 12.0-14.8 The [facility] Comment on above: Performed By: #### C BC, BMP #### [address] Hematocrit (Bld) [Volume fraction] 32.9 % Low 38.8-50.0 The [facility] Comment on above: Performed By: #### C BC, BMP #### [address] Hemoglobin (Bld) [Mass/Vol] 10.9 g/dL Low 13.0-17.0 The [facility] Comment on above: Performed By: #### C BC, BMP #### [address] Lymphocytes (Bld) [#/Vol] 0.9 10*3/uL Low 1.00-4.8 The [facility] Comment on above: Performed By: #### C BC, BMP #### [address] Lymphocytes/100 WBC (Bld) 5.1 % Normal . [facility] Comment on above: Performed By: #### C BC, BMP #### [address] MCH (RBC) [Entitic mass] 34.5 pg Normal 27.5-35.2 [facility] Comment on above: Performed By: #### C BC, BMP #### [address] MCV (RBC) [Entitic vol] 104.4 fL High 83.5-101 [facility] Comment on above: Performed By: #### C BC, BMP #### [address] Mean Corpuscular HGB Conc 33.1 g/dL Normal 32.5-35.6 [facility] Comment on above: Performed By: #### C BC, BMP #### [address] Monocytes (Bld) [#/Vol] 0.9 10*3/uL High 0.0-0.8 The [facility] Comment on above: Performed By: #### C BC, BMP #### [facility] [address] [place] [phone] [place] Monocytes/100 WBC (Bld) 5.2 % Normal . The [facility] Comment on above: Performed By: #### C BC, BMP #### [facility] [address] [place] [phone] [place] Neutrophils (Bld) [#/Vol] 15.5 10*3/uL High 1.8-7.7 The [facility] Comment on above: Performed By: #### C BC, BMP #### [facility] [address] Neutrophils/100 WBC (Bld) 87.2 % Normal . The [facility] Comment on above: Performed By: #### C BC, BMP #### [facility] [address] NRBC% 0.1 /100{WBC} Normal 0-0.5 The [facility] Comment on above: Performed By: #### C BC, BMP #### [facility] [address] [place] [address] [place] Platelet mean volume (Bld) [Entitic vol] 6.9 fL Normal 6.6-10.1 [facility] Comment on above: Performed By: #### C BC, BMP #### [facility] [address] [place] [address] [place] Platelets (Bld) [#/Vol] 249 10*3/uL Normal 150-450 [facility] Comment on above: Performed By: #### C BC, BMP #### [facility] [address] [place] [phone] [place] RBC (Bld) [#/Vol] 3.15 10*6/uL Low 3.90-5.60 The [facility] Comment on above: Performed By: #### C BC, BMP #### [facility] [address] [place] [address] [place] WBC (Bld) [#/Vol] 17.7 10*3/uL High 4.1-10.5 [facility] Comment on above: Performed By: #### C BC, BMP #### [facility] [address] [place] [address] [place] Creatinine [Mass/volume] in Serum or PlasmaOrdered By: Zo Serrano on 05-22-2023 Creatinine [Mass/Vol] 13.60 mg/dL 0.70-1.30 [facility] Eosinophils Auto (Bld) [#/Vo l]Ordered By: Zo Serrano on 05-22-2023 Eosinophils (Bld) [#/Vol] 0.4 10*3/uL 0.0-0.45 [facility] Eosinophils/100 WBC Auto (Bl d)Ordered By: Zo Serrano on 05-22-2023 Eosinophils/100 WBC (Bld) 2.1 % . [facility] Erythrocyte distribution wid th Auto (RBC) [Ratio]Ordered By: Zo Serrano on 05-22-2023 Erythrocyte distribution width (RBC) [Ratio] 15.4 % 12.0-14.8 [facility] Glucose Glucometer (BldC) [M ass/Vol]Ordered By: Irwin Theodore on 05-22-2023 Glucose [Mass/Vol] 74 mg/dL [facility] Comment on above: Random Glucose Refer ence Range is dependent on time and content of last meal. Glucose of more than 200 mg/dL in a nonstressed, ambulatory subject supports the diagnosis of Diabetes Mellitus. Glucose Poct Glucometerson 0 05-22-2023 Glucose [Mass/Vol] 74 mg/dL Normal The Count includes the [facility] Comment on above: Result Comment: [place] Glucose Reference Range is dependent on time and content of last meal. Glucose of more than 200 mg/dL in a nonstressed, ambulatory subject supports the diagnosis of Diabetes Mellitus. PERFORMED BY: [facility] [address] [facility] [address] [address] PATHOLOGIST [employer] JM BERRY M.D. Performed By: #### H S TROP #### [facility] [address] [phone] [place] Glucose [Mass/volume] in Ser um or PlasmaOrdered By: Zo Serrano on 05-22-2023 Glucose [Mass/Vol] 89 mg/dL 70-100 [facility] Comment on above: ADA recommended refe rence rangeRandom Glucose Reference Range is dependent on time and content of last meal. Glucose of more than 200 mg/dL in a nonstressed, ambulatory subject supports the diagnosis of Diabetes Mellitus. Hematocrit Auto (Bld) [Volum e fraction]Ordered By: Zo Serrano on 05-22-2023 Hematocrit (Bld) [Volume fraction] 32.9 % 38.8-50.0 [facility] Hemoglobin [Mass/volume] in BloodOrdered By: Zo Serrano on 05-22-2023 Hemoglobin (Bld) [Mass/Vol] 10.9 g/dL 13.0-17.0 [facility] Leukocytes [#/volume] correc bernardo for nucleated erythrocytes in Blood by Automated counOrdered By: Zo Serrano on 05-22-2023 WBC corrected for nucl RBC Auto (Bld) [#/Vol] 17.7 10*3/uL 4.1-10.5 [facility] Lymphocytes Auto (Bld) [#/Vo l]Ordered By: Zo Serrano on 05-22-2023 Lymphocytes (Bld) [#/Vol] 0.9 10*3/uL 1.00-4.8 [facility] Lymphocytes/100 WBC Auto (Bl d)Ordered By: Zo Serrano on 05-22-2023 Lymphocytes/100 WBC (Bld) 5.1 % . [facility] MCH Auto (RBC) [Entitic mass ]Ordered By: Zo Serrano on 05-22-2023 MCH (RBC) [Entitic mass] 34.5 pg 27.5-35.2 [facility] MCHC Auto (RBC) [Mass/Vol]Or dered By: Zo Serrano on 05-22-2023 MCHC (RBC) [Mass/Vol] 33.1 g/dL 32.5-35.6 [facility] MCV Auto (RBC) [Entitic vol] Ordered By: Zo Serrano on 05-22-2023 MCV (RBC) [Entitic vol] 104.4 fL 83.5-101 [facility] Magnesiumon 05-22-2023 Magnesium [Mass/Vol] 2.2 mg/dL Normal 1.9-2.7 [facility] Comment on above: Result Comment: PERF ORMED BY: [facility] [address] [place] [address] PATHOLOGIST [employer] JM BERRY M.D. Performed By: #### C BC, LEATHA #### [facility] [address] Magnesium [Mass/volume] in S timi or PlasmaOrdered By: Zo Serrano on 05-22-2023 Magnesium [Mass/Vol] 2.2 mg/dL 1.9-2.7 [facility] Monocytes Auto (Bld) [#/Vol] Ordered By: Zo Serrano on 05-22-2023 Monocytes (Bld) [#/Vol] 0.9 10*3/uL 0.0-0.8 [facility] Monocytes/100 WBC Auto (Bld) Ordered By: Zo Serrano on 05-22-2023 Monocytes/100 WBC (Bld) 5.2 % . [facility] Neutrophils Auto (Bld) [#/Vo l]Ordered By: Zo Serrano on 05-22-2023 Neutrophils (Bld) [#/Vol] 15.5 10*3/uL 1.8-7.7 [facility] Neutrophils/100 WBC Auto (Bl d)Ordered By: Zo Serrano on 05-22-2023 Neutrophils/100 WBC (Bld) 87.2 % . [facility] No Panel InformationOrdered By: Zo Serrano on 05-22-2023 Estimated GFR (CKD-EPI) 3.902 mL/Min [facility] Creatinine Clearance (Chem 7.38 [facility] Nucleated erythrocytes [Pres ence] in Blood by Automated countOrdered By: Zo Serrano on 05-22-2023 Nucleated RBC Auto Ql (Bld) 0.1 /100{WBC} 0-0.5 [facility] Phosphate [Mass/volume] in S timi or PlasmaOrdered By: Zo Serrano on 05-22-2023 Phosphate [Mass/Vol] 5.0 mg/dL 3.7-7.2 [facility] Phosphoruson 05-22-2023 Phosphate [Mass/Vol] 5.0 mg/dL Normal 3.7-7.2 The [facility] Comment on above: Performed By: #### C BC, BMP #### [facility] [address] Platelet mean volume Auto (B ld) [Entitic vol]Ordered By: Zo Serrano on 05-22-2023 Platelet mean volume (Bld) [Entitic vol] 6.9 fL 6.6-10.1 [facility] Platelets Auto (Bld) [#/Vol] Ordered By: Zo Serrano on 05-22-2023 Platelets (Bld) [#/Vol] 249 10*3/uL 150-450 [facility] Potassium [Moles/volume] in Serum or PlasmaOrdered By: Zo Serrano on 05-22-2023 Potassium [Moles/Vol] 5.5 mmol/L 3.5-5.1 [facility] RBC Auto (Bld) [#/Vol]Ordere d By: Zo Serrano on 05-22-2023 RBC (Bld) [#/Vol] 3.15 10*6/uL 3.90-5.60 [facility] Serum or plasma anion gap de terminationOrdered By: Zo Serrano on 05-22-2023 Anion gap [Moles/Vol] 19.9 mmol/L 6.0-15.0 [facility] Sodium [Moles/volume] in Ser um or PlasmaOrdered By: Zo Serrano on 05-22-2023 Sodium [Moles/Vol] 135 mmol/L 136-145 [facility] Urea nitrogen [Mass/volume] in Serum or PlasmaOrdered By: Zo Serrano on 05-22-2023 Urea nitrogen [Mass/Vol] 63 mg/dL 7-25 [facility] WBC Auto (Bld) [#/Vol]Ordere d By: Zo Serrano on 05-22-2023 WBC (Bld) [#/Vol] 17.7 10*3/uL 4.1-10.5 [facility] XR tibia fibula LT 2V*on XR tibia fibula LT 2V* [facility] [address] [place] [address] [place] [address] XRay Report Signed Patient: Leander Massey MR#: [id number] 2 : 1970 Acct:[id number] Age/Sex: 52 / M ADM Date: 05/22/23 Loc: Room: 9G5374-4 Type: ADM IN Attending Dr: Irwin Theodore MD Copies to: MD Zo Mcgarry APRN Ordering Provider: Zo Serrano APRN Date of Service: 05/22/23 XR/XR femur LT 2V*: left thigh cellulitis, edema, pain ([id number]) XR/XR tibia fibula LT 2V*: left lower cellulitis, edema, pain CLINICAL DATA: Left lower extremity cellulitis, pain and edema. LEFT FEMUR - 2 views COMPARISON: None AP and lateral views were obtained. No acute fracture or displacement is identified. 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 No bony destruction is seen. There is no prominent degenerative change at the hip or knee. No focal soft tissue abnormalities are noted. XR/XR femur LT 2V* IMPRESSION: NO ACUTE BONY FINDINGS. LEFT TIB-FIB - 2 views COMPARISON: None AP and lateral views were obtained. No fracture, dislocation or bony destruction is noted. There is minimal diffuse soft tissue swelling and mild subcutaneous edema. No rib deformities are noted. IMPRESSION: NO ACUTE BONY FINDINGS. Impression dictated by: Janey Mckee M.D.05/22/2023 11:17 AM Dictation Location: [place] [address] Transcribed By: [facility] 05/22/23 1117 Dictated By: Janey Mckee MD 05/22/23 1059 Signed By: 05/22/23 1117 Normal [facility] Basic Metabolic Panelon 05-2 Anion gap [Moles/Vol] 17.2 mmol/L High 6.0-15.0 Th e [facility] Comment on above: Performed By: #### C MEET, BMP #### [facility] [address] [place] [id number] [facility] Calcium [Mass/Vol] 9.1 mg/dL Normal 8.6-10.3 The Count includes the [facility] Comment on above: Performed By: #### C MEET, BMP #### [address] Chloride [Moles/Vol] 92 mmol/L Low 98-107 [facility] Comment on above: Performed By: #### C BC, BMP #### [address] CO2 [Moles/Vol] 29.2 mmol/L Normal 21.0-31.0 [facility] Comment on above: Performed By: #### C BC, BMP #### [address] Creatinine [Mass/Vol] 7.96 mg/dL Significan t change up 0.70-1.30 [facility] Comment on above: Performed By: #### C BC, BMP #### [address] Creatinine Clr Calc Pharmacy 12.97 Normal [facility] Comment on above: Result Comment: PERF ORMED BY: [place] [address] PATHOLOGIST [employer] JM BERRY M.D. Performed By: #### C BC, BMP #### [address] GFR/1.73 sq M.predicted MDRD (S/P/Bld) [Vol rate/Area] 7.420 mL/min/{1.73_m2} Normal [facility] Comment on above: Performed By: #### C BC, BMP #### [address] Glucose [Mass/Vol] 87 mg/dL Normal 70-100 The Count includes the [facility] Comment on above: Result Comment: [place] Glucose Reference Range is dependent on time and content of last meal. Glucose of more than 200 mg/dL in a nonstressed, ambulatory subject supports the diagnosis of Diabetes Mellitus. ADA recommended reference range Performed By: #### C BC, BMP #### [address] Potassium [Moles/Vol] 4.4 mmol/L Normal 3.5-5.1 [facility] Comment on above: Performed By: #### C BC, BMP #### [address] Sodium [Moles/Vol] 134 mmol/L Low 136-145 The Count includes the [facility] Comment on above: Performed By: #### C BC, BMP #### [address] Urea nitrogen [Mass/Vol] 46 mg/dL High 7-25 [facility] Comment on above: Performed By: #### C BC, BMP #### [address] Complete Blood Count Auto Di ffon 03-03-2023 Basophils (Bld) [#/Vol] 0.0 10*3/uL Normal 0.0-0.2 [facility] Comment on above: Result Comment: PERF ORMED BY: [place] [address] PATHOLOGIST [employer] JM BERRY M.D. Performed By: #### C BC, BMP #### [address] Basophils/100 WBC (Bld) 0.3 % Normal . [facility] Comment on above: Performed By: #### C BC, BMP #### [address] Eosinophils (Bld) [#/Vol] 0.2 10*3/uL Normal 0.0-0.45 [facility] Comment on above: Performed By: #### C BC, BMP #### [address] Eosinophils/100 WBC (Bld) 1.7 % Normal . [facility] Comment on above: Performed By: #### C BC, BMP #### [address] Erythrocyte distribution width (RBC) [Ratio] 13.7 % Normal 12.0-14.8 [facility] Comment on above: Performed By: #### C BC, BMP #### [address] Hematocrit (Bld) [Volume fraction] 28.6 % Low 38.8-50.0 [facility] Comment on above: Performed By: #### C BC, BMP #### [address] Hemoglobin (Bld) [Mass/Vol] 9.4 g/dL Low 13.0-17.0 [facility] Comment on above: Performed By: #### C BC, BMP #### [address] Lymphocytes (Bld) [#/Vol] 1.7 10*3/uL Normal 1.00-4.8 [facility] Comment on above: Performed By: #### C BC, BMP #### [address] Lymphocytes/100 WBC (Bld) 12.5 % Normal . [facility] Comment on above: Performed By: #### C BC, BMP #### [address] MCH (RBC) [Entitic mass] 33.4 pg Normal 27.5-35.2 [facility] Comment on above: Performed By: #### C BC, BMP #### [address] MCV (RBC) [Entitic vol] 102.0 fL High 83.5-101 [facility] Comment on above: Performed By: #### C BC, BMP #### [address] Mean Corpuscular HGB Conc 32.8 g/dL Normal 32.5-35.6 [facility] Comment on above: Performed By: #### C BC, BMP #### [address] Monocytes (Bld) [#/Vol] 0.7 10*3/uL Normal 0.0-0.8 [facility] Comment on above: Performed By: #### C BC, BMP #### [address] Monocytes/100 WBC (Bld) 5.3 % Normal . [facility] Comment on above: Performed By: #### C BC, BMP #### [address] Neutrophils (Bld) [#/Vol] 10.8 10*3/uL High 1.8-7.7 [facility] Comment on above: Performed By: #### C BC, BMP #### [address] Neutrophils/100 WBC (Bld) 80.2 % Normal . [facility] Comment on above: Performed By: #### C BC, BMP #### [address] NRBC% 0.3 /100{WBC} Normal 0-0.5 [facility] Comment on above: Performed By: #### C BC, BMP #### [address] Platelet mean volume (Bld) [Entitic vol] 8.4 fL Normal 6.6-10.1 [facility] Comment on above: Performed By: #### C BC, BMP #### [place] [address] [place] Platelets (Bld) [#/Vol] 191 10*3/uL Normal 150-450 The [facility] Comment on above: Performed By: #### C BC, BMP #### [address] RBC (Bld) [#/Vol] 2.80 10*6/uL Low 3.90-5.60 The [facility] Comment on above: Performed By: #### C BC, BMP #### [address] WBC (Bld) [#/Vol] 13.5 10*3/uL High 4.1-10.5 The [facility] Comment on above: Performed By: #### C BC, BMP #### [address] Basic Metabolic Panelon 05- Anion gap [Moles/Vol] 19.8 mmol/L High 6.0-15.0 e [facility] Comment on above: Performed By: #### C BC, BMP #### [address] Calcium [Mass/Vol] 9.3 mg/dL Normal 8.6-10.3 The Count includes the [facility] Comment on above: Result Comment: PERF ORMED BY: [place] [address] PATHOLOGIST [employer] JM BERRY M.D. Performed By: #### C BC, BMP #### [address] Chloride [Moles/Vol] 94 mmol/L Low 98-107 The [facility] Comment on above: Performed By: #### C BC, BMP #### [address] CO2 [Moles/Vol] 25.9 mmol/L Normal 21.0-31.0 The [facility] Comment on above: Performed By: #### C BC, BMP #### [address] Creatinine [Mass/Vol] 12.01 mg/dL High 0.70-1.30 e [facility] Comment on above: Performed By: #### C BC, BMP #### [address] GFR/1.73 sq M.predicted MDRD (S/P/Bld) [Vol rate/Area] 4.530 mL/min/{1.73_m2} Normal The [facility] Comment on above: Performed By: #### C BC, BMP #### [address] Glucose [Mass/Vol] 115 mg/dL High 70-100 The Count includes the [facility] Comment on above: Result Comment: [place] Glucose Reference Range is dependent on time and content of last meal. Glucose of more than 200 mg/dL in a nonstressed, ambulatory subject supports the diagnosis of Diabetes Mellitus. ADA recommended reference range Performed By: #### C BC, BMP #### [address] Potassium [Moles/Vol] 5.7 mmol/L High 3.5-5.1 The [facility] Comment on above: Performed By: #### C BC, BMP #### [address] Sodium [Moles/Vol] 134 mmol/L Low 136-145 The Count includes the [facility] Comment on above: Performed By: #### C BC, BMP #### [address] Urea nitrogen [Mass/Vol] 72 mg/dL High 7-25 The [facility] Comment on above: Performed By: #### C BC, BMP #### [address] Complete Blood Count Auto Di ffon 03-02-2023 Basophils (Bld) [#/Vol] 0.0 10*3/uL Normal 0.0-0.2 The [facility] Comment on above: Result Comment: PERF ORMED BY: [place] [address] PATHOLOGIST [employer] JM BERRY M.D. Performed By: #### C BC, BMP #### [address] Basophils/100 WBC (Bld) 0.1 % Normal . [facility] Comment on above: Performed By: #### C BC, BMP #### [place] [address] [place] Eosinophils (Bld) [#/Vol] 0.0 10*3/uL Normal 0.0-0.45 The [facility] Comment on above: Performed By: #### C BC, BMP #### [place] [address] [place] Eosinophils/100 WBC (Bld) 0.0 % Normal . [facility] Comment on above: Performed By: #### C BC, BMP #### [address] Erythrocyte distribution width (RBC) [Ratio] 13.7 % Normal 12.0-14.8 The [facility] Comment on above: Performed By: #### C BC, BMP #### [address] Hematocrit (Bld) [Volume fraction] 28.8 % Low 38.8-50.0 The [facility] Comment on above: Performed By: #### C BC, BMP #### [address] Hemoglobin (Bld) [Mass/Vol] 9.5 g/dL Low 13.0-17.0 The [facility] Comment on above: Performed By: #### C BC, BMP #### [address] Lymphocytes (Bld) [#/Vol] 0.7 10*3/uL Low 1.00-4.8 The [facility] Comment on above: Performed By: #### C BC, BMP #### [address] Lymphocytes/100 WBC (Bld) 3.7 % Normal . [facility] Comment on above: Performed By: #### C BC, BMP #### [address] MCH (RBC) [Entitic mass] 33.6 pg Normal 27.5-35.2 The [facility] Comment on above: Performed By: #### C BC, BMP #### [address] MCV (RBC) [Entitic vol] 101.8 fL High 83.5-101 The [facility] Comment on above: Performed By: #### C BC, BMP #### [address] Mean Corpuscular HGB Conc 33.0 g/dL Normal 32.5-35.6 The [facility] Comment on above: Performed By: #### C BC, BMP #### [facility] [address] [place] [address] [place] Monocytes (Bld) [#/Vol] 0.3 10*3/uL Normal 0.0-0.8 The [facility] Comment on above: Performed By: #### C BC, BMP #### [facility] [address] [place] [address] [place] Monocytes/100 WBC (Bld) 1.8 % Normal . [facility] Comment on above: Performed By: #### C BC, BMP #### [facility] [address] [place] [address] [place] Neutrophils (Bld) [#/Vol] 16.9 10*3/uL High 1.8-7.7 The [facility] Comment on above: Performed By: #### C BC, BMP #### [facility] [address] [place] [address] [place] Neutrophils/100 WBC (Bld) 94.4 % Normal . [facility] Comment on above: Performed By: #### C BC, BMP #### [facility] [address] [place] [address] [place] NRBC% 0.0 /100{WBC} Normal 0-0.5 The [facility] Comment on above: Performed By: #### C BC, BMP #### [facility] [address] [place] [address] [place] Platelet mean volume (Bld) [Entitic vol] 8.7 fL Normal 6.6-10.1 The [facility] Comment on above: Performed By: #### C BC, BMP #### [facility] [address] [place] [address] [place] Platelets (Bld) [#/Vol] 155 10*3/uL Normal 150-450 The [facility] Comment on above: Performed By: #### C BC, BMP #### [facility] [address] [place] [address] [place] RBC (Bld) [#/Vol] 2.83 10*6/uL Low 3.90-5.60 The [facility] Comment on above: Performed By: #### C BC, BMP #### [facility] [address] WBC (Bld) [#/Vol] 17.9 10*3/uL High 4.1-10.5 The [facility] Comment on above: Performed By: #### C BC, BMP #### [facility] [address] [place] [id number] [facility] Arterial Blood Gason 023 ABG Base Excess -3.7 mmol/L Low -3.0-3.0 The [facility] Comment on above: Performed By: #### A BG #### Point of Care testing , ABG Frac Inspired O2 40 % Normal The [facility] Comment on above: Performed By: #### A BG #### Point of Care testing , ABG Oxygen Content 6.5 mmol/L Low 6.6-9.7 The Count includes the [facility] Comment on above: Performed By: #### A BG #### Point of Care testing , ABG Oxygen Saturation 95.8 % Normal 95.0-100.0 The [facility] Comment on above: Performed By: #### A BG #### Point of Care testing , ABG PCO2 68.1 mm[Hg] Off scale high 35.0-45.0 [facility] Comment on above: Performed By: #### A BG #### Point of Care testing , ABG PEEP 5 Normal The [facility] Comment on above: Performed By: #### A BG #### Point of Care testing , ABG PH 7.19 Off scale low 7.35-7.45 The [facility] Comment on above: Performed By: #### A BG #### Point of Care testing , ABG PO2 98.6 mm[Hg] Normal 80.0-100.0 The [facility] Comment on above: Performed By: #### A BG #### Point of Care testing , ABG Pressure Support 11.0 Normal [facility] Comment on above: Performed By: #### A BG #### Point of Care testing , CO2 [Moles/Vol] 27.5 mmol/L High 23.0-27.0 The [facility] Comment on above: Performed By: #### A BG #### Point of Care testing , HCO3 (Bld) [Moles/Vol] 25.4 mmol/L Normal 23.0-29.0 T he [facility] Comment on above: Performed By: #### A BG #### Point of Care testing , Respiratory Critical Normal [facility] Comment on above: Result Comment: Crit ical Value called on: 03/01/2023 at 10:30 PERFORMED BY: [place] [address] PATHOLOGIST [employer] JM BERRY M.D. Performed By: #### A BG #### Point of Care testing , VBG Draw Site Left Radial Normal The [facility] Comment on above: Performed By: #### A BG #### Point of Care testing , Troponin I High Sensitivityo n 03-01-2023 Troponin I High Sensitivity 188.7 pg/mL Off scale high 0.0-20.0 The [facility] Comment on above: Result Comment: Crit ical Result : Called to and read back by: DELIA HYDE at: 03/01/2023 19:07:12 by:[id number] PERFORMED BY: [place] [address] PATHOLOGIST [employer] JM BERRY M.D. Performed By: #### H S TROP #### [address] Troponin I High Sensitivity 137.4 pg/mL Off scale high 0.0-20.0 The [facility] Comment on above: Result Comment: Crit ical Result : Called to and read back by: KATE JIMENEZ at: 03/01/2023 15:45:58 by:[id number] PERFORMED BY: [place] [address] PATHOLOGIST [employer] JM BERRY M.D. Performed By: #### H S TROP #### [address] Troponin I High Sensitivity 86.2 pg/mL Off scale high 0.0-20.0 The [facility] Comment on above: Result Comment: Crit ical Result : Called to and read back by: JORDON NAZARIO at: 03/01/2023 12:11:39 by:[id number] PERFORMED BY: [place] [address] PATHOLOGIST [employer] JM BERRY M.D. Performed By: #### H S TROP #### [place] [id number] [facility] XR chest 1V portableon 03-01 XR chest 1V portable [facility] [place] [address] XRay Report Signed Patient: Leander Massey MR#: [id number] 2 : 1970 Acct:[id number] Age/Sex: 52 / M ADM Date: 03/01/23 Loc: Room: [address] [place] [address] Type: ADM IN Attending Dr: Annabella Camejo MD Copies to: MD Annabella Dias MD Ordering Provider: Ramirez Arango MD Date of Service: 03/01/23 XR/XR chest 1V portable: Respiratory failure SINGLE VIEW CHEST CLINICAL HISTORY: Respiratory failure COMPARISON: Chest 12/30/2021 FINDINGS: Cardiomegaly with diffuse vascular congestion and interstitial changes new since the 12/30/2021 study. No pneumothorax, large pleural effusion or free air. XR/XR chest 1V portable IMPRESSION: CARDIOMEGALY WITH DIFFUSE VASCULAR CONGESTION AND INTERSTITIAL CHANGES SUGGESTIVE OF DEVELOPING PULMONARY EDEMA. Impression dictated by: Vj Hendrix Jr., D.OEva03/01/2023 10:41 AM Dictation Location: [place] [address] Transcribed By: [facility] 03/01/23 1041 Dictated By: Vj Hendrix Jr, DO 03/01/23 1041 Signed By: 03/01/23 1041 Normal [facility] US AV Fistulaon 02-28-2023 US AV Fistula [facility] Main [place] [id number] Ultrasound Report Signed Patient: Leander Massey MR#: [id number] 2 : 1970 Acct:[id number] Age/Sex: 52 / M ADM Date: 02/28/23 Loc: UL [facility]: Patrice Levine MD Ordering Provider: Patrice Levine MD Date of Service: 02/28/23 US/US AV Fistula: I82.898A Copies to: Patrice Levine MD Left upper extremity fistula duplex evaluation INDICATIONS: Difficulty during access of the dialysis center FINDINGS: Left upper extremity: The left upper extremity forearm prostatic AV graft is patent. No narrowing or thrombus was identified. The graft was less than 6 mm in depth throughout its length. The left subclavian and axillary veins are patent. Flow velocities are adequate. US/US AV Fistula IMPRESSION: As above Impression dictated by: Patrice Leivne MD02/28/2023 3:30 PM Dictation Location: [place] [address] Tech: Marta Aguilera Transcribed By: MARIUM 02/28/23 1530 Dictated By: Patrice Levine MD 02/28/23 1529 Signed By: 02/28/23 1530 Normal [facility] US carotid doppler BIon 02-12 US carotid doppler [facility] Main [address] [address] Ultrasound Report Signed Patient: Leander Massey MR#: [id number] 2 : 1970 Acct:[id number] Age/Sex: 52 / M ADM Date: 02/28/23 Loc: UL Room: [facility] Dr: Raissa CRAMERC Ordering Provider: Raissa Oh APRN Date of Service: 02/28/23 US/US carotid doppler BI: I65.23 Copies to: Raissa Oh APRN CAROTID DUPLEX INDICATION: Surveillance study after left carotid surgery. PROCEDURE: Color-flow duplex scanning is used to interrogate the extracranial carotid arterial system, as well as both vertebral arteries. The proximal right internal carotid artery shows a highest peak systolic velocity of 102 cm/s with an end-diastolic velocity of 26.7 cm/s . The mid internal carotid artery measures 93.8 cm/s peak systolic with an end-diastolic velocity of 31.1 cm/s . The distal segment measures 90.1 cm/s peak systolic with an end diastolic velocity of 34.2 cm/s . The velocities of the right common carotid artery are 122 cm/s peak systolic and 11.2 cm/s end- diastolic proximally and 88.2 cm/s peak systolic and 16.8 cm/s end-diastolic distally. The peak systolic velocity ratio of the internal to the common carotid artery is 0.84 . The right external carotid artery measures 141 cm/s peak systolic. The right vertebral artery is patent at 73.9 cm/s peak systolic and with antegrade flow. The proximal left internal carotid artery shows a highest peak systolic velocity of 135 cm/s with an end-diastolic velocity of 13.6 cm/s . The mid internal carotid artery measures 87.8 cm/s peak systolic with an end-diastolic velocity of 29.9 cm/s . The distal segment measures 85.8 cm/s peak systolic with an end diastolic velocity of 28.7 cm/s . The velocities of the left common carotid artery are 177 cm/s peak systolic and 15.4 cm/s end-diastolic proximally and 88.7 cm/s peak systolic and 11 cm/s end-diastolic distally. The peak systolic velocity ratio of the internal to the common carotid artery is 0.76 . The left external carotid artery measures 149 cm/s peak systolic. The left vertebral artery is patent at 86.5 cm/s peak systolic with antegrade flow. US/US carotid doppler BI IMPRESSION: NO HEMODYNAMICALLY SIGNIFICANT STENOSIS OF EITHER EXTRACRANIAL INTERNAL CAROTID ARTERY. BOTH VERTEBRAL ARTERIES ARE PATENT WITH ANTEGRADE FLOW. Impression dictated by: Patrice Levine MD02/28/2023 2:56 PM Dictation Location: [place] [address] Tech: Marta Ale Transcribed By: MARIUM 02/28/231455 Dictated By: Patrice Levine MD 02/28/231454 Signed By: 02/28/231455 Normal [facility] Physician [facility] Screenson 10-26-2022 Screens [id number] 1.00CD:127 Normal [facility] Screens [id number] .00CD:127 Normal [facility] Patient Educationon 10-25-19 Patient Education Oncology Prostate Cancer Screening The prostate is a walnut-sized gland that is located below the bladder and in front of the rectum in males. The function of the prostate (prostate gland) is to add fluid to semen during ejaculation. Prostate cancer is the second most common type of cancer in men. A screening test for cancer is a test that is done before cancer symptoms start. Screening can help to identify cancer at an early stage, when the cancer can be treated more easily. The recommended prostate cancer screening test is a blood test called the prostate-specific antigen (PSA) test. PSA is a protein that is made in the prostate. As you age, your prostate naturally produces more PSA. Abnormally high PSA levels may be caused by: ? Prostate cancer. ? An enlarged prostate that is not caused by cancer (benign prostatic hyperplasia, BPH). This condition is very common in older men. ? A prostate gland infection (prostatitis). ? Medicines to assist with hair growth, such as finasteride. Depending on the PSA results, you may need more tests, such as: ? A physical exam to check the size of your prostate gland. ? Blood and imaging tests. ? A procedure to remove tissue samples from your prostate gland for testing (biopsy). Who should have screening? Screening recommendations vary based on age. ? If you are younger than age 40, screening is not recommended. ? If you are age 40?54 and you have no risk factors, screening is not recommended. ? If you are younger than age 55, ask your health care provider if you need screening if you have one of these risk factors: ? Being of -[place] descent. ? Having a family history of prostate cancer. ? If you are age 55?69, talk with your health care provider about your need for screening and how often screening should be done. ? If you are older than age 70, screening is not recommended. This is because the risks that screening can cause are greater than the benefits that it may provide (risks outweigh the benefits). If you are at high risk for prostate cancer, your health care provider may recommend that you have screenings more often or start screening at a younger age. You may be at high risk if you: ? Are older than age 55. ? Are -[place]. ? Have a father, brother, or uncle who has been diagnosed with prostate cancer. The risk may be higher if your family member's cancer occurred at an early age. What are the benefits of screening? There is a small chance that screening may lower your risk of dying from prostate cancer. The chance is small because prostate cancer is typically a slow-growing cancer, and most men with prostate cancer from a different cause. What are the risks of screening? The main risk of prostate cancer screening is diagnosing and treating prostate cancer that would never have caused any symptoms or problems (overdiagnosis and overtreatment). PSA screening cannot tell you if your PSA is high due to cancer or a different cause. A prostate biopsy is the only procedure to diagnose prostate cancer. Even the results of a biopsy may not tell you if your cancer needs to be treated. Slow-growing prostate cancer may not need any treatment other than monitoring, so diagnosing and treating it may cause unnecessary stress or other side effects. A prostate biopsy may also cause: ? Infection or fever. ? A false negative. This is a result that shows that you do not have prostate cancer when you actually do have prostate cancer. Questions to ask your health care provider ? When should I start prostate cancer screening? ? What is my risk for prostate cancer? ? How often do I need screening? ? What type of screening tests do I need? ? How do I get my test results? ? What do my results mean? ? Do I need treatment? Contact a health care provider if: ? You have difficulty urinating. ? You have pain when you urinate or ejaculate. ? You have blood in your urine or semen. ? You have pain in your back or in the area of your prostate. ? You have trouble getting or maintaining an erection (erectile dysfunction, ED). Summary ? Prostate cancer is a common type of cancer in men. The prostate (prostate gland) is located below the bladder and in front of the rectum. This gland adds fluid to semen during ejaculation. ? Prostate cancer screening may identify cancer at an early stage, when the cancer can be treated more easily. ? The prostate-specific antigen (PSA) test is the recommended screening test for prostate cancer. ? Discuss the risks and benefits of prostate cancer screening with your health care provider. If you are age 70 or older, screening is likely to lead to more risks than benefits (risks outweigh the benefits). This information is not intended to replace advice given to you by your health care provider. Make sure you discuss any questions you have with your health care provider. Document Released: 07/12/2018 Document R (more content not included)... Normal [facility] Urology Office/Clinic Noteon 10-25-2022 Urology Office/Clinic Note Chief Complaint New Patient HPI Staff New Patient Leander is a 52 y/o male here for prostate issues. Pt is on dialysis and see's . Pt has been on dialysis for 6-7 months roughly. Pt is on fluid restriction and consumes roughly 32oz of fluid daily. Pt states that before he went on dialysis he had no problems voiding on his own. Dysuria: _denies Incomplete bladder emptying: _unsure Hematuria: _denies Frequency: _gets the sensation to go 2-3x a day but usually doesn't void during the day Urgency: _denies Nocturia: _denies Stream: _very weak almost a dribble Leaking: _denies Post void dripping: _denies Wearing pads/ Depends: _denies Urge incontinence: _denies Stress incontinence: _denies Incontinence without Sensory Awareness: _denies Abdominal pain: _denies Flank pain: _denies Sexual complaints: _ History of Present Illness Tests reviewed: reviewed UA, external records including labs, imaging results and notes I have reviewed the previous health record information and history for this patient from external providers I have reviewed and verified the staff HPI to be accurate for this encounter. There have been no associated fever, chills, flank pain, or blood in the urine. Review of Systems ROS - Provider Constitutional: denies weight loss, denies hot flashes. Eyes: denies eye problems. Gastrointestinal: denies nausea, denies vomiting. Cardiovascular: denies chest pain or angina. Integumentary: no dryness Musculoskeletal: denies musculoskeletal symptoms. ENMT: denies otolaryngeal symptoms. Respiratory: no shortness of breath. Heme/Lymph: denies easy bleeding tendency, denies easy bruising tendency. Psychiatric: no confusion, no anxiety. Genitourinary: See HPI. Physical Exam Vitals & Measurements HR: 92(Peripheral) BP: 112/69 HT: 71 in HT: 180 cm WT: 94 kg WT: 206.8 lb BMI: 29.01 General Appearance: alert, no distress, well nourished, well developed male. Head: normocephalic . Eyes: normal orbit and globe. ENMT: normal examination of external ears. Chest: symmetric chest rise, respirations non labored. Cardiovascular: regular rate and rhythm. Abdomen: soft, non distended, no tenderness Genitourinary: Flank Pain: none. Bladder: nonpalpable. Prostate: mild-mod enlarged, nontender, no firm nodules, symmetric Skin: warm, dry, no bruising. LUE AVF Psychiatric: cooperative, affect appropriate for age, normal judgement, euthymic mood. Assessment/Plan 52 yo male, on dialysis hx of HTN and COVID. Denies diabetes. Awaiting transplant evaluation 1. Urinary urgency (R39.15: Urgency of urination) New patient here due to prostate issues. Shares he has been on dialysis for 6-7 months roughly and this is his second go around of dialysi x4 months.. Pt. states the first round of dialysis he did not have any urinary issues, none when having normal voided volumes. Pt. is on a fluid restriction and only consumes 32oz of fluid daily. Notes that he gets the sensation to void 2-3x per day but usually doesn't void. PVR today 24 mL. IPSS score 10, DAGO 24. Does not wish to start any medications related to the prostate. GERI done 10/26/21 was negative for abnormalities. Moderate diffuse atrophy of the left kidney. Explained to patient that his urinary symptoms are normal due to the dialysis treatment but there are medications that could improve urinary health. Denies urinary tract infections. Discussed scheduling Cysto but will hold off at this time. -Follow up in 6 months. All questions/concerns were discussed. Pt. to call the office if heencounters any issues prior. Pt. acknowledges understanding. 2. Screening PSA (prostate specific antigen) (Z12.5: Encounter for screening for malignant neoplasm of prostate) There is no record of PSA. Denies family history of prostate cancer. AMBER benign -Will order PSA. Pt. to be called if abnormal Follow-up With When Contact Information Jerry DEWITT, Briana Lyle, URL, URO Additional Instructions: 6 mos Patient Education Prostate Cancer Screening I, Mary Mackenzie, personally scribed for Dr. Edwards on 10/25/2022 09:10:34. . Documentation recorded by the scribe, Anne Mackenzie, accurately reflects the services(s) I performed and decisions made by me. Authenticated by Dr. Edwards on 10/25/2022 09:14:43. Problem List/Past Medical History Ongoing High blood pressure Hypothyroid Renal failure Screening PSA (prostate specific antigen) TIA (transient ischemic attack) Urinary urgency Historical No qualifying data Procedure/Surgical History TIA (06/15/2022), Cataract extraction and insertion of intraocular lens (07/08/2018), Appendectomy. Medications amLODIPine 10 mg Tab atorvastatin 40 mg Tab, Oral, Daily bisoprolol 10 mg Tab, 10 mg= 1 tab(s), Oral, Daily, Not taking carvedilol 25 mg Tab gabapentin 300 mg Cap ibuprofen 800 mg Tab, 800 mg= 1 tab(s), Oral, TID, N (more content not included)... Normal [facility] Comment on above: Result Comment: Elec tronically Signed By: Briana Edwards MD\.br\Date and Time Signed: 10/25/22 09:14 EST\.br\Electronically Co-Signed By: Mary Mackenzie.br\Date and Time Co-Signed: 10/25/22 09:10 EST Basophils Auto (Bld) [#/Vol] Ordered By: Sumit Madrid on 08-24-2022 Basophils (Bld) [#/Vol] 0.1 10*3/uL 0.0-0.2 [facility] Basophils/100 WBC Auto (Bld) Ordered By: Sumit Madrid on 08-24-2022 Basophils/100 WBC (Bld) 1.0 % . [facility] Creatinine and Glomerular fi ltration rate.predicted panel (S/P/Bld)Ordered By: Sumit Madrid on 08-24-2022 Creatinine [Mass/Vol] 9.20 mg/dL 0.64-1.27 [facility] Eosinophils Auto (Bld) [#/Vo l]Ordered By: Sumit Madrid on 08-24-2022 Eosinophils (Bld) [#/Vol] 0.4 10*3/uL 0.0-0.45 [facility] Eosinophils/100 WBC Auto (Bl d)Ordered By: Sumit Madrid on 08-24-2022 Eosinophils/100 WBC (Bld) 5.6 % . [facility] Erythrocyte distribution wid th Auto (RBC) [Ratio]Ordered By: Sumit Madrid on 08-24-2022 Erythrocyte distribution width (RBC) [Ratio] 12.9 % 12.0-14.8 [facility] Estimated glomerular filtrat ion rate (GFR) non- AmericanOrdered By: Sumit Madrid on 08-24-2022 GFR/1.73 sq M.predicted among non-blacks MDRD (S/P/Bld) [Vol rate/Area] 6 mL/Min [facility] Hematocrit Auto (Bld) [Volum e fraction]Ordered By: Sumit Madrid on 08-24-2022 Hematocrit (Bld) [Volume fraction] 40.3 % 38.8-50.0 [facility] Hemoglobin [Mass/volume] in BloodOrdered By: Sumit Madrid on 08-24-2022 Hemoglobin (Bld) [Mass/Vol] 13.5 g/dL 13.0-17.0 [facility] Laboratory - Hematology and Cell countsOrdered By: Sumit Madrid on 08-24-2022 Nucleated RBC/100 WBC (Bld) [Ratio] 0.0 % 0-0.5 [facility] Leukocytes [#/volume] in Blo od by Automated countOrdered By: Sumit Madrid on 08-24-2022 WBC (Bld) [#/Vol] 7.9 10*3/uL 4.5-11.0 [facility] Lymphocytes Auto (Bld) [#/Vo l]Ordered By: Sumit Madrid on 08-24-2022 Lymphocytes (Bld) [#/Vol] 1.1 10*3/uL 1.00-4.8 [facility] Lymphocytes/100 WBC Auto (Bl d)Ordered By: Sumit Madrid on 08-24-2022 Lymphocytes/100 WBC (Bld) 13.8 % . [facility] MCH Auto (RBC) [Entitic mass ]Ordered By: Sumit Madrid on 08-24-2022 MCH (RBC) [Entitic mass] 35.9 pg 27.5-35.2 [facility] MCHC Auto (RBC) [Mass/Vol]Or dered By: Sumit Madrid on 08-24-2022 MCHC (RBC) [Mass/Vol] 33.5 g/dL 32.5-35.6 [facility] MCV Auto (RBC) [Entitic vol] Ordered By: Sumit Madrid on 08-24-2022 MCV (RBC) [Entitic vol] 107.3 fL 83.5-101 [facility] Monocytes Auto (Bld) [#/Vol] Ordered By: Sumit Madrid on 08-24-2022 Monocytes (Bld) [#/Vol] 0.7 10*3/uL 0.0-0.8 [facility] Monocytes/100 WBC Auto (Bld) Ordered By: Sumit Madrid on 08-24-2022 Monocytes/100 WBC (Bld) 9.3 % . [facility] Neutrophils Auto (Bld) [#/Vo l]Ordered By: Sumit Madrid on 08-24-2022 Neutrophils (Bld) [#/Vol] 5.6 10*3/uL 1.8-7.7 [facility] Neutrophils/100 WBC Auto (Bl d)Ordered By: Sumit Madrid on 08-24-2022 Neutrophils/100 WBC (Bld) 70.3 % . [facility] No Panel InformationOrdered By: Sumit Madrid on 08-24-2022 Estimated GFR () 7 mL/Min [facility] Comment on above: GFR estimated refere nce range: According to KDOQI guidelines, <60 ml/min/1.73m2 is sufficient to diagnose a patient with chronic kidney disease. Pharmacy Creatinine Clearance (Chem 10.81 [facility] Platelet mean volume Auto (B ld) [Entitic vol]Ordered By: Sumit Madrid on 08-24-2022 Platelet mean volume (Bld) [Entitic vol] 7.7 fL 6.6-10.1 [facility] Platelets Auto (Bld) [#/Vol] Ordered By: Sumit Madrid on 08-24-2022 Platelets (Bld) [#/Vol] 289 10*3/uL 150-450 [facility] RBC Auto (Bld) [#/Vol]Ordere d By: Sumit Madrid on 08-24-2022 RBC (Bld) [#/Vol] 3.75 10*6/uL 3.90-5.60 [facility] Serum or plasma anion gap de terminationOrdered By: Sumit Madrid on 08-24-2022 Anion gap [Moles/Vol] 18.8 mmol/L 6.0-15.0 [facility] Serum or plasma calcium cande urement (mass/volume)Ordered By: Sumit Madrid on 08-24-2022 Calcium [Mass/Vol] 9.5 mg/dL 8.2-10.2 [facility] Serum or plasma chloride rose marie surement (moles/volume)Ordered By: Sumit Madrid on 08-24-2022 Chloride [Moles/Vol] 94 mmol/L 95-114 [facility] Serum or plasma glucose cande urement (mass/volume)Ordered By: Sumit Madrid on 08-24-2022 Glucose [Mass/Vol] 94 mg/dL 70-100 [facility] Comment on above: ADA recommended refe rence rangeRandom Glucose Reference Range is dependent on time and content of last meal. Glucose of more than 200 mg/dL in a nonstressed, ambulatory subject supports the diagnosis of Diabetes Mellitus. Serum or plasma potassium me asurement (moles/volume)Ordered By: Sumit Madrid on 08-24-2022 Potassium [Moles/Vol] 5.2 mmol/L 3.5-5.1 [facility] Serum or plasma sodium measu rement (moles/volume)Ordered By: Sumit Madrid on 08-24-2022 Sodium [Moles/Vol] 133 mmol/L 136-146 [facility] Serum or plasma total carbon dioxide measurement (moles/volume)Ordered By: Sumti Madrid on 08-24-2022 CO2 [Moles/Vol] 25.4 mmol/L 22.0-30.0 [facility] Serum or plasma urea nitroge n measurement (mass/volume)Ordered By: Sumit Madrid on 08-24-2022 Urea nitrogen [Mass/Vol] 31 mg/dL 9-23 [facility] COVID-19 SOFIAOrdered By: Zechariah ortiz Han on 08-23-2022 SARS-CoV+SARS-CoV-2 (COVID-19) Ag IA.rapid Ql (Resp) Negative Negative [facility] Comment on above: This is a duplicate Malu SARS Antigen (VANIA) result to be used for statistical tracking purpose only. No Panel InformationOrdered By: Gerber Short on 08-23-2022 SARS Antigen (LFIA) [facility] POTASSIUMon 08-18-2022 Potassium [Moles/Vol] 5.8 mmol/L Critically high 3.5-5.1 [facility] Comment on above: Performed By: #### C BC #### [facility] [address] [place] [address] Dr. Karen Santos LIPID PROFILEon 08-07-2022 CHOL-HDL RATIO NORM SEE BELOW Normal [facility] Comment on above: Result Comment: 3.3 - 4.4 LOW RISK 4.4 - 7.1 AVERAGE RISK 7.1 - 11.0 MODERATE RISK >11.0 HIGH RISK Performed By: #### C BC #### [facility] [address] [address] [address] Karen Santos Cholesterol [Mass/Vol] 116 mg/dL Normal <=200 [facility] Comment on above: Performed By: #### C BC #### [facility] [address] [address] [address] Karen Santos Cholesterol in HDL [Mass/Vol] 34 mg/dL Critically low 40-60 [facility] Comment on above: Performed By: #### C BC #### [facility] [address] [address] [address] Karen Santos Cholesterol in LDL [Mass/Vol] 47.4 mg/dL Normal [facility] Comment on above: Performed By: #### C BC #### [facility] [address] [address] [address] Karen Santos Cholesterol.total/Chol esterol in HDL [Mass ratio] 3.4 {ratio} Normal [facility] Comment on above: Performed By: #### C BC #### [facility] [address] [address] [address] Karen Santos HDL NORMAL > or = 60 mg/dl - LO W CARDIOVASCULAR RISK <40 mg/dl - HIGH CARDIOVASCULAR RISK Normal [facility] Comment on above: Performed By: #### C BC #### [facility] [address] [address] [address] Karen Santos LDL CALC NORMAL SEE BELOW Normal [facility] Comment on above: Result Comment: <100 mg/dl OPTIMAL 100 - 129 mg/dl NEAR OR ABOVE OPTIMAL 130 - 159 mg/dl BORDERLINE HIGH 160 - 189 mg/dl HIGH >190 mg/dl VERY HIGH Performed By: #### C BC #### [facility] [address] [address] [address] Karen Santos Triglyceride [Mass/Vol] 173 mg/dL Critically high <=150 [facility] Comment on above: Performed By: #### C BC #### [facility] [address] [address] [address] Karen Santos VLDL CALC 34.6 mg/dL Normal [facility] Comment on above: Performed By: #### C BC #### [facility] [address] [address] [address] Karen Santos POTASSIUMon 08-04-2022 Potassium [Moles/Vol] 5.0 mmol/L Normal 3.5-5.1 [facility] Comment on above: Performed By: #### C BC #### [facility] [address] [address] [address] Karen Santos Basophils Auto (Bld) [#/Vol] Ordered By: Luis Carlos Amaro on 07-11-2022 Basophils (Bld) [#/Vol] 0.1 10*3/uL 0.0-0.2 [facility] Basophils/100 WBC Auto (Bld) Ordered By: Luis Carlos Amaro on 07-11-2022 Basophils/100 WBC (Bld) 0.6 % . [facility] Blood hemoglobin measurement (mass/volume)Ordered By: Luis Carlos Amaro on 07-11-2022 Hemoglobin (Bld) [Mass/Vol] 10.6 g/dL 13.0-17.0 [facility] Blood leukocytes automated c ount (number/volume)Ordered By: Luis Carlos Amaro on 07-11-2022 WBC (Bld) [#/Vol] 8.9 10*3/uL 4.5-11.0 [facility] Blood polychromasia detectio n by light microscopyOrdered By: Luis Carlos Amaro on 07-11-2022 Polychromasia LM Ql (Bld) Slight [facility] Creatinine and Glomerular fi ltration rate.predicted panel (S/P/Bld)Ordered By: Luis Carlos Amaro on 07-11-2022 Creatinine [Mass/Vol] 7.92 mg/dL 0.64-1.27 [facility] Eosinophils Auto (Bld) [#/Vo l]Ordered By: Luis Carlos Amaro on 07-11-2022 Eosinophils (Bld) [#/Vol] 0.2 10*3/uL 0.0-0.45 [facility] Eosinophils/100 WBC Auto (Bl d)Ordered By: Luis Carlos Amaro on 07-11-2022 Eosinophils/100 WBC (Bld) 1.9 % . [facility] Erythrocyte distribution wid th Auto (RBC) [Ratio]Ordered By: Luis Carlos Amaro on 07-11-2022 Erythrocyte distribution width (RBC) [Ratio] 14.5 % 12.0-14.8 [facility] Estimated glomerular filtrat ion rate (GFR) non- AmericanOrdered By: Luis Carlos Amaro on 07-11-2022 GFR/1.73 sq M.predicted among non-blacks MDRD (S/P/Bld) [Vol rate/Area] 7 mL/Min [facility] Hematocrit Auto (Bld) [Volum e fraction]Ordered By: Luis Carlos Amaro on 07-11-2022 Hematocrit (Bld) [Volume fraction] 32.0 % 38.8-50.0 [facility] - Hematology and Cell countsOrdered By: Luis Carlos Amaro on 07-11-2022 Nucleated RBC/100 WBC (Bld) [Ratio] 0.0 % 0-0.5 [facility] Lymphocytes Auto (Bld) [#/Vo l]Ordered By: Luis Carlos Amaro on 07-11-2022 Lymphocytes (Bld) [#/Vol] 0.9 10*3/uL 1.00-4.8 [facility] Lymphocytes/100 WBC Auto (Bl d)Ordered By: Luis Carlos Amaro on 07-11-2022 Lymphocytes/100 WBC (Bld) 10.1 % . [facility] MCH Auto (RBC) [Entitic mass ]Ordered By: Luis Carlos Amaro on 07-11-2022 MCH (RBC) [Entitic mass] 37.8 pg 27.5-35.2 [facility] MCHC Auto (RBC) [Mass/Vol]Or dered By: Luis Carlos Amaro on 07-11-2022 MCHC (RBC) [Mass/Vol] 33.3 g/dL 32.5-35.6 [facility] MCV Auto (RBC) [Entitic vol] Ordered By: Luis Carlos Amaro on 07-11-2022 MCV (RBC) [Entitic vol] 113.5 fL 83.5-101 [facility] Macrocytes detectionOrdered By: Luis Carlos Amaro on 07-11-2022 Macrocytes Ql (Bld) Moderate [facility] Monocytes Auto (Bld) [#/Vol] Ordered By: Luis Carlos Amaro on 07-11-2022 Monocytes (Bld) [#/Vol] 0.6 10*3/uL 0.0-0.8 [facility] Monocytes/100 WBC Auto (Bld) Ordered By: Luis Carlos Amaro on 07-11-2022 Monocytes/100 WBC (Bld) 7.0 % . [facility] Neutrophils Auto (Bld) [#/Vo l]Ordered By: Luis Carlos Amaro on 07-11-2022 Neutrophils (Bld) [#/Vol] 7.1 10*3/uL 1.8-7.7 [facility] Neutrophils/100 WBC Auto (Bl d)Ordered By: Luis Carlos Amaro on 07-11-2022 Neutrophils/100 WBC (Bld) 80.4 % . [facility] No Panel InformationOrdered By: Luis Carlos Amaro on 07-11-2022 Estimated GFR () 9 mL/Min [facility] Comment on above: GFR estimated refere nce range: According to KDOQI guidelines, <60 ml/min/1.73m2 is sufficient to diagnose a patient with chronic kidney disease. Pharmacy Creatinine Clearance (Chem 12.57 [facility] Platelet Estimate Normal Normal [facility] Platelet Morphology Comment Normal Normal [facility] Poikilocytosis Slight [facility] Ovalocyte detectionOrdered B y: Luis Carlos Amaro on 07-11-2022 Ovalocytes LM Ql (Bld) Slight [facility] Platelet mean volume Auto (B ld) [Entitic vol]Ordered By: Luis Carlos Amaro on 07-11-2022 Platelet mean volume (Bld) [Entitic vol] 7.3 fL 6.6-10.1 [facility] Platelets Auto (Bld) [#/Vol] Ordered By: Luis Carlos Amaro on 07-11-2022 Platelets (Bld) [#/Vol] 304 10*3/uL 150-450 [facility] RBC Auto (Bld) [#/Vol]Ordere d By: Luis Carlos Amaro on 07-11-2022 RBC (Bld) [#/Vol] 2.82 10*6/uL 3.90-5.60 [facility] RBC morphologyOrdered By: Claudette Amaro on 07-11-2022 RBC morphology finding Nom (Bld) N/A [facility] Serum or plasma anion gap de terminationOrdered By: Luis Carlos Amaro on 07-11-2022 Anion gap [Moles/Vol] 17.3 mmol/L 6.0-15.0 [facility] Serum or plasma calcium cande urement (mass/volume)Ordered By: Luis Carlos Amaro on 07-11-2022 Calcium [Mass/Vol] 9.2 mg/dL 8.2-10.2 [facility] Serum or plasma chloride rose marie surement (moles/volume)Ordered By: Luis Carlos Amaro on 07-11-2022 Chloride [Moles/Vol] 92 mmol/L 95-114 [facility] Serum or plasma glucose cande urement (mass/volume)Ordered By: Luis Carlos Amaro on 07-11-2022 Glucose [Mass/Vol] 87 mg/dL 70-100 [facility] Comment on above: ADA recommended refe rence rangeRandom Glucose Reference Range is dependent on time and content of last meal. Glucose of more than 200 mg/dL in a nonstressed, ambulatory subject supports the diagnosis of Diabetes Mellitus. Serum or plasma potassium me asurement (moles/volume)Ordered By: Luis Carlos Amaro on 07-11-2022 Potassium [Moles/Vol] 4.0 mmol/L 3.5-5.1 [facility] Serum or plasma sodium measu rement (moles/volume)Ordered By: Luis Carlos Amaro on 07-11-2022 Sodium [Moles/Vol] 134 mmol/L 136-146 [facility] Serum or plasma total carbon dioxide measurement (moles/volume)Ordered By: Luis Carlos Amaro on 07-11-2022 CO2 [Moles/Vol] 28.7 mmol/L 22.0-30.0 [facility] Serum or plasma urea nitroge n measurement (mass/volume)Ordered By: Luis Carlos Amaro on 07-11-2022 Urea nitrogen [Mass/Vol] 19 mg/dL 9-23 [facility] COVID-19 Positive/NegativeOr dered By: Patrice Levine on 07-10-2022 SARS-CoV-2 (COVID-19) N gene CHARLES+probe Ql (Resp) Negative Negative [facility] Comment on above: Testing for SARS-CoV -2 by RT-PCRThis test was developed and its performance characteristics determined by [employer] ([employer] and validated at the [facility]. This test has not been FDA cleared or approved. This test has been authorized by FDA under an Emergency Use Authorization (EUA). This test has been validated in accordance with the FDA's Guidance Document (Policy for Diagnostics Testing in Laboratories Certified to Perform High Complexity Testing under CLIA prior to Emergency Use Authorization for Coronavirus Disease-2019 during the Public Health Emergency) issued on January 15, 2020. This test is only authorized for the duration of time the declaration that circumstances exist justifying the authorization of the emergency use of in vitro diagnostic tests for detection of SARS-CoV-2 virus and/or diagnosis of COVID-19 infection under section 564(b)(1) of the Act, 21 U.S.C. 360bbb-3(b)(1), unless the authorization is terminated or revoked sooner. XR ABD FLAT UP_PA Subhash 06-10 XR ABD FLAT UP_PA CH ACUTE ABDOMINAL SERIES HISTORY: Abdominal pain TECHNIQUE: A single view of the chest and 3 views of the abdomen and pelvis are submitted for review. COMPARISON: None. FINDINGS: Chest x-ray: Permacath is demonstrated. The lungs are hyper expanded. There is no acute infiltrate. There is no evidence for effusion. The cardiomediastinal silhouette measures within normal limits. Pulmonary vascularity is unremarkable. Osseous structures are within normal limits for age.. Abdomen: There is no evidence of free air.. The bowel gas pattern is nonobstructive. There are no abnormal calcifications. Osseous structures are within normal limits. There is mild retention of stool IMPRESSION: Chest x-ray: No plain film evidence for acute cardiopulmonary disease. Abdomen: 1. Nonobstructive bowel gas pattern. 2. Mild retention of stool. Electronically authenticated by: SUBHASH VICENTE Date: 2022-06-09 22:18 [address] [facility] CBC AUTO DIFFon 06-09-2022 BASO # 0.0 103/ul Normal 0.0-0.1 [facility] Comment on above: Performed By: #### C BC #### [facility] [address] [address] [address] Karen Santos Basophils/100 WBC (Bld) 0.1 % Critically low 0.2-2.0 [facility] Comment on above: Performed By: #### C BC #### [facility] [address] [place] [address] Dr. Karen Santos EO # 0.1 103/ul Normal 0.0-0.[address] [facility] Comment on above: Performed By: #### C BC #### [facility] [address] [place] [address] Dr. Karen Santos Eosinophils/100 WBC (Bld) 0.3 % Critically low 0.9-7.[address] [facility] Comment on above: Performed By: #### C BC #### [facility] [address] [place] [address] Dr. Karen Santos Erythrocyte distribution width (RBC) [Ratio] 15.1 % Critically high 11.0-15.0 [facility] Comment on above: Performed By: #### C BC #### [facility] [address] [address] [address] Karen Santos Hematocrit (Bld) [Volume fraction] 26.4 % Critically low 42.0-54.0 [facility] Comment on above: Performed By: #### C BC #### [facility] [address] [address] [address] Karen Santos Hemoglobin (Bld) [Mass/Vol] 9.0 g/dL Critically low 14.0-18.0 [facility] Comment on above: Performed By: #### C BC #### [facility] [address] [place] [address] Dr. Kaern Santos IG # 0.44 10e3/ul Critically high 0.00-0.03 [facility] Comment on above: Performed By: #### C BC #### [facility] [address] [place] [address] Dr. Karen Santos IG % 2.1 % Critically high 0.0-0.5 [facility] Comment on above: Performed By: #### C BC #### [facility] [address] [place] [address] Dr. Karen Santos LYMPH # 1.5 103/ul Normal 1.2-3.8 [facility] Comment on above: Performed By: #### C BC #### [facility] [address] [place] [address] Dr. Karen Santos Lymphocytes/100 WBC (Bld) 7.3 % Critically low 20.5-60.0 [facility] Comment on above: Performed By: #### C BC #### [facility] [address] [place] [address] Dr. Karen Santos MANUAL DIFF REQ NO Normal [facility] Comment on above: Performed By: #### C BC #### [facility] [address] [place] [address] Dr. Karen Santos MCH (RBC) [Entitic mass] 37.0 pg Critically high 25.9-34.0 [facility] Comment on above: Performed By: #### C BC #### [facility] [address] [address] [address] Karen Santos MCHC (RBC) [Mass/Vol] 34.1 g/dL Normal 29.9-35.2 [facility] Comment on above: Performed By: #### C BC #### [facility] [address] [address] [address] Karen Santos MCV (RBC) [Entitic vol] 108.6 fL Critically high 80.0-94.0 [facility] Comment on above: Performed By: #### C BC #### [facility] [address] [address] [address] Karen Santos MONO # 1.0 103/ul Critically high 0.3-0.8 [facility] Comment on above: Performed By: #### C BC #### [facility] [address] [address] [address] Karen Santos Monocytes/100 WBC (Bld) 5.0 % Normal 1.7-12.0 [facility] Comment on above: Performed By: #### C BC #### [facility] [address] [address] [address] Karen Santos NEUT # 17.7 103/ul Critically high 1.4-6.5 [facility] Comment on above: Performed By: #### C BC #### [facility] [address] [address] [address] Karen Santos Neutrophils/100 WBC (Bld) 85.2 % Critically high 43.0-75.[address] [facility] Comment on above: Performed By: #### C BC #### [facility] [address] [address] [address] Karen Santos Platelet mean volume (Bld) [Entitic vol] 9.5 fL Normal 9.5-13.[address] [facility] Comment on above: Performed By: #### C BC #### [facility] [address] [address] [address] Karen Santos PLT 280 103/ul Normal 150-[address] [facility] Comment on above: Performed By: #### C BC #### [facility] [address] [address] [address] Karen Santos RBC 2.43 106/ul Critically low 4.70-6.10 [facility] Comment on above: Performed By: #### C BC #### [facility] [address] [address] [address] Karen Santos WBC 20.7 103/ul Critically high 4.0-11.0 [facility] Comment on above: Performed By: #### C BC #### [facility] [address] [address] [address] Karen Santos PROF 14(COMP METB)on 022 Albumin [Mass/Vol] 3.5 g/dL Normal 3.4-5.0 [facility] Comment on above: Performed By: #### C MP ####[facility] [id number] [address]Dr[address] Karen Santos Albumin/Globulin [Mass ratio] 0.9 {ratio} Normal [facility] Comment on above: Performed By: #### C MP ####[facility] [id number] [address]Dr[address] Karen Santos ALP [Catalytic activity/Vol] 93 U/L Normal 46-116 [facility] Comment on above: Performed By: #### C MP ####[facility] [id number] [address]Dr. Karen Santos ALT [Catalytic activity/Vol] 11 U/L Critically low 16-63 [facility] Comment on above: Performed By: #### C MP ####[facility] [id number] [address]Dr. Karen Santos Anion gap [Moles/Vol] 22.3 mmol/L Normal [facility] Comment on above: Performed By: #### C MP ####[facility] [address] [place] [address]Dr. Karen Santos AST [Catalytic activity/Vol] 15 U/L Normal 15-37 [facility] Comment on above: Performed By: #### C MP ####[facility] [address]wumkbkg[address] [place] [address]Dr. Karen Santos Bilirubin [Mass/Vol] 0.4 mg/dL Normal 0.2-1.[address] [facility] Comment on above: Performed By: #### C MP ####[facility] [address]cpucwdam[address] [place] [address]Dr. Karen Santos Calcium [Mass/Vol] 8.8 mg/dL Normal 8.5-10.1 The [facility] Comment on above: Performed By: #### C MP ####[facility] [address] [place], [place] [address]Dr. Karen Santos Chloride [Moles/Vol] 90 mmol/L Critically low 98-[address] [facility] Comment on above: Performed By: #### C MP ####[facility] [address] [place], [place] [address]Dr. Karen Santos CO2 [Moles/Vol] 22.0 mmol/L Normal 21.0-32.0 The [facility] Comment on above: Performed By: #### C MP ####[facility] [address] [place], [place] [address]Dr. Kaern Santos Creatinine [Mass/Vol] 13.37 mg/dL Critically high 0.70-1.3 0 [facility] Comment on above: Result Comment: unkn own if done Performed By: #### C MP ####[facility] [address] [place], [place] [address]Dr. Karen Tom EGFR-AF TONGAN 5 mL/min/1.73m2 Critically low >=[address] [facility] Comment on above: Performed By: #### C MP ####[facility] El[address] [place], [place] [address]Dr. Virajacinda Tom EGFR-NON AF TONGAN 4 mL/min/1.73m2 Critically low >=[address] [facility] Comment on above: Performed By: #### C MP ####[facility] [address]yl[address] [place] [address]Dr. Karen Tom Globulin (S) [Mass/Vol] 3.7 g/dL Normal The [facility] Comment on above: Performed By: #### C MP ####[facility] [address]xlneljf[address] [place] [id number]. Karen Santos Glucose [Mass/Vol] 90 mg/dL Normal 74-106 [facility] Comment on above: Performed By: #### C MP ####[facility] Gtkgtwfgpd8[address] [place] [id number]. Karen Santos Potassium [Moles/Vol] 5.3 mmol/L Critically high 3.5-5.1 [facility] Comment on above: Performed By: #### C MP ####[facility] [address]vkrqymrhv9[address] [place] [id number]. Karen Santos Protein [Mass/Vol] 7.2 g/dL Normal 6.4-8.2 [facility] Comment on above: Performed By: #### C MP ####[facility] [address]ymfzuplu[address] [place] [address]Dr. Karen Santos Sodium [Moles/Vol] 129 mmol/L Critically low 136-145 Th [facility] Comment on above: Performed By: #### C MP ####[facility] T[address]bz[address] [place] [id number]. Karen Santos Urea nitrogen [Mass/Vol] 53.0 mg/dL Critically high 7.0-18.0 [facility] Comment on above: Performed By: #### C MP ####[facility] Omktmldpzn[address] [place] [id number]. Karen Santos Urea nitrogen/Creatinine [Mass ratio] 3.9 mg/mg Normal [facility] Comment on above: Performed By: #### C MP ####[facility] Hbqhtsufkq89[address] [place] [id number]. Karen Santos CBC AUTO DIFFon 02-28-2022 BASO # 0.0 103/ul Normal 0.0-0.1 [facility] Comment on above: Performed By: #### C BC #### [facility] Laboratory [id number] Karen Santos Basophils/100 WBC (Bld) 0.4 % Normal 0.2-2.0 [facility] Comment on above: Performed By: #### C BC #### [facility] Laboratory [address] [place] [address] Dr. Karen Santos EO # 0.2 103/ul Normal 0.0-0.7 [facility] Comment on above: Performed By: #### C BC #### [facility] Laboratory [address] [place] [address] Dr. Karen Santos Eosinophils/100 WBC (Bld) 1.4 % Normal 0.9-7.0 [facility] Comment on above: Performed By: #### C BC #### [facility] [address] [place] [address] Dr. Karen Santos Erythrocyte distribution width (RBC) [Ratio] 12.4 % Normal 11.0-15.0 [facility] Comment on above: Performed By: #### C BC #### [facility] [address] [place] [address] Dr. Karen Santos Hematocrit (Bld) [Volume fraction] 40.7 % Critically low 42.0-54.0 [facility] Comment on above: Performed By: #### C BC #### [facility] [address] [place] [address] Dr. Karen Santos Hemoglobin (Bld) [Mass/Vol] 14.0 g/dL Normal 14.0-18.0 [facility] Comment on above: Performed By: #### C BC #### [facility] [address] [place] [address] Dr. Karen Santos IG # 0.06 10e3/ul Critically high 0.00-0.03 [facility] Comment on above: Performed By: #### C BC #### [facility] [address] [place] [address] Dr. Karen Santos IG % 0.6 % Critically high 0.0-0.5 The [facility] Comment on above: Performed By: #### C BC #### [facility] [address] [place] [address] Dr. Karen Santos LYMPH # 0.9 103/ul Critically low 1.2-3.8 The [facility] Comment on above: Performed By: #### C BC #### [facility] [address] [place] [address] [address] Karen Santos Lymphocytes/100 WBC (Bld) 8.0 % Critically low 20.5-60.0 [facility] Comment on above: Performed By: #### C BC #### [facility] [address] [place] [address] Dr. Karen Santos MANUAL DIFF REQ NO Normal The [facility] Comment on above: Performed By: #### C BC #### [facility] [address] [place] [address] Dr. Karen Santos MCH (RBC) [Entitic mass] 35.5 pg Critically high 25.9-34.0 [facility] Comment on above: Performed By: #### C BC #### [facility] [address] [place] [address] Dr. Karen Santos MCHC (RBC) [Mass/Vol] 34.4 g/dL Normal 29.9-35.[address] [facility] Comment on above: Performed By: #### C BC #### [facility] [address] [place] [address] Dr. Karen Santos MCV (RBC) [Entitic vol] 103.3 fL Critically high 80.0-94.0 [facility] Comment on above: Performed By: #### C BC #### [facility] [address] [place] [address] Dr. Karen Santos MONO # 0.5 103/ul Normal 0.3-0.[address] [facility] Comment on above: Performed By: #### C BC #### [facility] [address] [place] [address] Dr. Karen Santos Monocytes/100 WBC (Bld) 5.0 % Normal 1.7-12.[address] [facility] Comment on above: Performed By: #### C BC #### [facility] [address] [place] [address] Dr. Karen Santos NEUT # 9.1 103/ul Critically high 1.4-6.5 The [facility] Comment on above: Performed By: #### C BC #### [facility] [address] [address] [address] Karen Santos Neutrophils/100 WBC (Bld) 84.6 % Critically high 43.0-75.0 [facility] Comment on above: Performed By: #### C BC #### [facility] [address] [place] [address] [address] Karen Santos Platelet mean volume (Bld) [Entitic vol] 9.1 fL Critically low 9.5-13.5 [facility] Comment on above: Performed By: #### C BC #### [facility] [address] [place] [address] [address] Karen Santos PLT 350 103/ul Normal 150-450 [facility] Comment on above: Performed By: #### C BC #### [facility] [address] [place] [address] [address] Karen Santos RBC 3.94 106/ul Critically low 4.70-6.10 [facility] Comment on above: Performed By: #### C BC #### [facility] [address] [place] [address] [address] Karen Santos WBC 10.7 103/ul Normal 4.0-11.0 [facility] Comment on above: Performed By: #### C BC #### [facility] [address] [place] [address] [address] Karen Santos PROF CHEM 8 (BAS METB)on Anion gap [Moles/Vol] 12.4 mmol/L Normal [facility] Comment on above: Performed By: #### C BC #### [facility] [address] [place] [address] [address] Karen Santos Calcium [Mass/Vol] 9.5 mg/dL Normal 8.5-10.1 [facility] Comment on above: Performed By: #### C BC #### [facility] [address] [place] [address] [address] Karen Santos Chloride [Moles/Vol] 95 mmol/L Critically low 98-107 [facility] Comment on above: Performed By: #### C BC #### [facility] [address] [place] [address] [address] Karen Santos CO2 [Moles/Vol] 31.7 mmol/L Normal 21.0-32.0 [facility] Comment on above: Performed By: #### C BC #### [facility] [address] [place] [address] [address] Karen Santos Creatinine [Mass/Vol] 2.39 mg/dL Critically high 0.70-1.30 [facility] Comment on above: Performed By: #### C BC #### [facility] [address] [place] [address] [address] Karen Santos EGFR-AF TONGAN 35 mL/min/1.73m2 Critically low >=60 [facility] Comment on above: Performed By: #### C BC #### [facility] [address] [place] [address] [address] Karen Santos EGFR-NON AF TONGAN 29 mL/min/1.73m2 Critically low >=60 [facility] Comment on above: Performed By: #### C BC #### [facility] [address] [place] [address] [address] Karen Santos Glucose [Mass/Vol] 105 mg/dL Normal 74-106 [facility] Comment on above: Performed By: #### C BC #### [facility] [address] [place] [address] [address] Karen Santos Potassium [Moles/Vol] 4.1 mmol/L Normal 3.5-5.1 [facility] Comment on above: Performed By: #### C BC #### [facility] [address] [place] [address] [address] Karen Santos Sodium [Moles/Vol] 135 mmol/L Critically low 136-145 Th [facility] Comment on above: Performed By: #### C BC #### [facility] [address] [place] [address] [address] Karen Santos Urea nitrogen [Mass/Vol] 15.0 mg/dL Normal 7.0-18.0 [facility] Comment on above: Performed By: #### C BC #### [facility] [id number] Karen Santos Urea nitrogen/Creatinine [Mass ratio] 6.3 mg/mg Normal The [facility] Comment on above: Performed By: #### C BC #### [facility] [id number] Karen Santos CBC AUTO DIFFon 02-24-2022 BASO # 0.1 103/ul Normal 0.0-0.[address] [facility] Comment on above: Performed By: #### C BC ####[facility] [address]sc[address]ss[address] [place] [id number] Santos Basophils/100 WBC (Bld) 0.6 % Normal 0.2-2.[address] [facility] Comment on above: Performed By: #### C BC ####[facility] [address] [place] [address]DrEva Santos EO # 0.3 103/ul Normal 0.0-0.[address] [facility] Comment on above: Performed By: #### C BC ####[facility] [address]btbbrf[address] [place] [address]DrEva Santos Eosinophils/100 WBC (Bld) 2.6 % Normal 0.9-7.[address] [facility] Comment on above: Performed By: #### C BC ####[facility] [address]qvnmmpm[address] [place] [id number] Santos Erythrocyte distribution width (RBC) [Ratio] 12.5 % Normal 11.0-15.[address] [facility] Comment on above: Performed By: #### C BC ####[facility] Dexdrgvnsm34[address] [place] [id number] Santos Hematocrit (Bld) [Volume fraction] 37.1 % Critically low 42.0-54.[address] [facility] Comment on above: Performed By: #### C BC ####[facility] Ogqijlabpz[address] [place] [id number] Santos Hemoglobin (Bld) [Mass/Vol] 12.8 g/dL Critically low 14.0-18.[address] [facility] Comment on above: Performed By: #### C BC ####[facility] Fdcqrdmtgc[address] [place] [id number]. Virajacinda Santos IG # 0.28 10e3/ul Critically high 0.00-0.03 [facility] Comment on above: Performed By: #### C BC ####[facility] [address]uetph[address]qp[address] [place] [id number]. Karen Santos IG % 2.2 % Critically high 0.0-0.5 [facility] Comment on above: Performed By: #### C BC ####[facility] [address]nguviy[address] [place] [address]Dr. Karen Santos LYMPH # 1.0 103/ul Critically low 1.2-3.8 [facility] Comment on above: Performed By: #### C BC ####[facility] Yymklevtts[address] [place] [address]Dr. Karen Santos Lymphocytes/100 WBC (Bld) 7.6 % Critically low 20.5-60.0 [facility] Comment on above: Performed By: #### C BC ####[facility] Wy[address]xtlny[address] [place] [address]Dr. Karen Santos MANUAL DIFF REQ NO Normal [facility] Comment on above: Performed By: #### C BC ####[facility] Pmsgevbmdq[address] [place] [address]Dr. Karen Santos MCH (RBC) [Entitic mass] 35.9 pg Critically high 25.9-34.0 [facility] Comment on above: Performed By: #### C BC ####[facility] Inbrjxuatk[address] [place] [address]Dr. Karen Tom MCHC (RBC) [Mass/Vol] 34.5 g/dL Normal 29.9-35.[address] [facility] Comment on above: Performed By: #### C BC ####[facility] Mbdgxjcfwk[address] [place] [id number]. Karen Santos MCV (RBC) [Entitic vol] 103.9 fL Critically high 80.0-94.0 [facility] Comment on above: Performed By: #### C BC ####[facility] Fswddtvsoi[address] [place] [id number]. Karen Santos MONO # 0.8 103/ul Normal 0.3-0.[address] [facility] Comment on above: Performed By: #### C BC ####[facility] Delvzvdhww[address] [place] [id number]. Karen Santos Monocytes/100 WBC (Bld) 6.6 % Normal 1.7-12.[address] [facility] Comment on above: Performed By: #### C BC ####[facility] [address]yzs[address] [place] [id number]. Karen Santos NEUT # 10.1 103/ul Critically high 1.4-6.5 The [facility] Comment on above: Performed By: #### C BC ####[facility] Hxorobkkvo[address] [place] [address]Dr. Karen Santos Neutrophils/100 WBC (Bld) 80.4 % Critically high 43.0-75.0 [facility] Comment on above: Performed By: #### C BC ####[facility] Mgeastlwhg[address] [place] [id number]. Karen Santos Platelet mean volume (Bld) [Entitic vol] 9.5 fL Normal 9.5-13.[address] [facility] Comment on above: Performed By: #### C BC ####[facility] Bwe[address]aqirk[address] [place] [id number]. Karen Santos PLT 331 103/ul Normal 150-[address] [facility] Comment on above: Performed By: #### C BC ####[facility] Rbdjalxlss[address] [place] [id number]. Karen Santos RBC 3.57 106/ul Critically low 4.70-6.10 The [facility] Comment on above: Performed By: #### C BC ####[facility] Skuwkxtioj[address] [place] [id number]. Karen Santos WBC 12.5 103/ul Critically high 4.0-11.0 The [facility] Comment on above: Performed By: #### C BC ####[facility] E[address]ipeltdsv[address] [place], [place] [address]FbDr. Karen Santos PROF CHEM 8 (BAS METB)on Anion gap [Moles/Vol] 12.6 mmol/L Normal Th [facility] Comment on above: Performed By: #### M G, RENAL #### [facility] [address] [place] [address] [address] Karen Santos Calcium [Mass/Vol] 9.5 mg/dL Normal 8.5-10.1 [facility] Comment on above: Performed By: #### M G, RENAL #### [facility] [address] [address] [address] Karen Santos Chloride [Moles/Vol] 95 mmol/L Critically low 98-107 [facility] Comment on above: Performed By: #### M G, RENAL #### [facility] [address] [place] [address] [address] Karen Santos CO2 [Moles/Vol] 28.5 mmol/L Normal 21.0-32.0 [facility] Comment on above: Performed By: #### M G, RENAL #### [facility] [address] [place] [address] [address] Karen Santos Creatinine [Mass/Vol] 1.70 mg/dL Critically high 0.70-1.30 [facility] Comment on above: Performed By: #### M G, RENAL #### [facility] [address] [place] [address] [address] Karen Santos EGFR-AF TONGAN 51 mL/min/1.73m2 Critically low >=60 [facility] Comment on above: Performed By: #### M G, RENAL #### [facility] [address] [address] [address] Karen Santos EGFR-NON AF TONGAN 42 mL/min/1.73m2 Critically low >=60 [facility] Comment on above: Performed By: #### M G, RENAL #### [facility] [address] [address] [address] Karen Santos Glucose [Mass/Vol] 111 mg/dL Critically high 74-106 [facility] Comment on above: Performed By: #### M G, RENAL #### [facility] [address] [place] [address] Dr. Karen Santos Potassium [Moles/Vol] 3.1 mmol/L Critically low 3.5-5.1 [facility] Comment on above: Performed By: #### M G, RENAL #### [facility] [address] [place] [address] Dr. Karen Santos Sodium [Moles/Vol] 133 mmol/L Critically low 136-145 Th [facility] Comment on above: Performed By: #### M G, RENAL #### [facility] [address] [place] [address] Dr. Karen Santos Urea nitrogen [Mass/Vol] 8.0 mg/dL Normal 7.0-18.0 [facility] Comment on above: Performed By: #### M G, RENAL #### [facility] [address] [place] [address] Dr. Karen Santos Urea nitrogen/Creatinine [Mass ratio] 4.7 mg/mg Normal [facility] Comment on above: Performed By: #### M G, RENAL #### [facility] [address] [place] [address] Dr. Karen Santos TROPONIN, HIGH SENSITIVITYon 02-24-2022 HSTROP 10.3 pg/mL Normal 4.0-76.1 [facility] Comment on above: Result Comment: CUT- OFF POINTS HAVE BEEN ESTABLISHED BASED ON THE FOURTH UNIVERSAL DEFINITIONS OF MYOCARDIAL INFARCTION. THE UPPER REFERENCE LIMIT (URL) OF TROPONIN, DEFINED THE 99TH PERCENTILE OF cTnI DISTRIBUTION IN A REFERENCE POPULATION, HAS BEEN CONFIRMED THE DECISION THRESHOLD FOR [place] DIAGNOSIS. Performed By: #### M G, RENAL #### [facility] [address] [place] [address] Dr. Karen Santos CBC AUTO DIFFon 02-18-2022 BASO # 0.0 103/ul Normal 0.0-0.1 [facility] Comment on above: Performed By: #### M G, RENAL #### [facility] [address] [place] [address] Dr. Karen Santos Basophils/100 WBC (Bld) 0.3 % Normal 0.2-2.[address] [facility] Comment on above: Performed By: #### M G, RENAL #### [facility] [address] [place] [address] Dr. Karen Santos EO # 0.2 103/ul Normal 0.0-0.[address] [facility] Comment on above: Performed By: #### M G, RENAL #### [facility] [address] [place] [address] Dr. Karen Santos Eosinophils/100 WBC (Bld) 1.5 % Normal 0.9-7.[address] [facility] Comment on above: Performed By: #### M G, RENAL #### [facility] [address] [place] [address] Dr. Karen Santos Erythrocyte distribution width (RBC) [Ratio] 13.1 % Normal 11.0-15.0 [facility] Comment on above: Performed By: #### M G, RENAL #### [facility] [address] [place] [address] Dr. Karen Santos Hematocrit (Bld) [Volume fraction] 35.7 % Critically low 42.0-54.0 [facility] Comment on above: Performed By: #### M G, RENAL #### [facility] [address] [place] [address] Dr. Karen Santos Hemoglobin (Bld) [Mass/Vol] 12.1 g/dL Critically low 14.0-18.[address] [facility] Comment on above: Performed By: #### M G, RENAL #### [facility] [address] [place] [address] Dr. Karen Santos IG # 0.07 10e3/ul Critically high 0.00-0.[address] [facility] Comment on above: Performed By: #### M G, RENAL #### [facility] [address] [place] [address] Dr. Karen Santos IG % 0.6 % Critically high 0.0-0.5 The [facility] Comment on above: Performed By: #### M G, RENAL #### [facility] [address] [address] [address] Karen Santos LYMPH # 1.2 103/ul Normal 1.2-3.[address] [facility] Comment on above: Performed By: #### M G, RENAL #### [facility] [address] [address] [address] Karen Santos Lymphocytes/100 WBC (Bld) 11.1 % Critically low 20.5-60.[address] [facility] Comment on above: Performed By: #### M G, RENAL #### [facility] [address] [address] [address] Karen Santos MANUAL DIFF REQ NO Normal [facility] Comment on above: Performed By: #### M G, RENAL #### [facility] [address] [place] [address] Dr. Karen Santos MCH (RBC) [Entitic mass] 35.9 pg Critically high 25.9-34.[address] [facility] Comment on above: Performed By: #### M G, RENAL #### [facility] [address] [address] [address] Karen Santos MCHC (RBC) [Mass/Vol] 33.9 g/dL Normal 29.9-35.[address] [facility] Comment on above: Performed By: #### M G, RENAL #### [facility] [address] [address] [address] Karen Santos MCV (RBC) [Entitic vol] 105.9 fL Critically high 80.0-94.[address] [facility] Comment on above: Result Comment: 2+ m acrocytosis Performed By: #### M G, RENAL #### [facility] [address] [address] [address] Kraen Santos MONO # 0.8 103/ul Normal 0.3-0.[address] [facility] Comment on above: Performed By: #### M G, RENAL #### [facility] [address] [address] [address] Karen Santos Monocytes/100 WBC (Bld) 6.9 % Normal 1.7-12.[address] [facility] Comment on above: Performed By: #### M G, RENAL #### [facility] [address] [address] [address] Karen Santos NEUT # 8.8 103/ul Critically high 1.4-6.5 [facility] Comment on above: Performed By: #### M G, RENAL #### [facility] [address] [address] [address] Karen Santos Neutrophils/100 WBC (Bld) 79.6 % Critically high 43.0-75.0 [facility] Comment on above: Performed By: #### M G, RENAL #### [facility] [address] [address] [address] Karen Santos Platelet mean volume (Bld) [Entitic vol] 9.3 fL Critically low 9.5-13.5 [facility] Comment on above: Performed By: #### M G, RENAL #### [facility] [address] [address] [address] Karen Santos PLT 272 103/ul Normal 150-450 [facility] Comment on above: Performed By: #### M G, RENAL #### [facility] [address] [address] [address] Karen Santos RBC 3.37 106/ul Critically low 4.70-6.10 [facility] Comment on above: Performed By: #### M G, RENAL #### [facility] [address] [address] [address] Karen Santos WBC 11.1 103/ul Critically high 4.0-11.0 [facility] Comment on above: Performed By: #### M G, RENAL #### [facility] [address] [address] [address] Karen Santos PROF 14(COMP METB)on 022 Albumin [Mass/Vol] 3.7 g/dL Normal 3.4-5.0 [facility] Comment on above: Performed By: #### C BC #### [facility] [address] [address] [address] Karen Santos Albumin/Globulin [Mass ratio] 1.1 {ratio} Normal [facility] Comment on above: Performed By: #### C BC #### [facility] [address] [address] [address] Karen Santos ALP [Catalytic activity/Vol] 110 U/L Normal 46-116 [facility] Comment on above: Performed By: #### C BC #### [facility] [address] [address] [address] Karen Santos ALT [Catalytic activity/Vol] 15 U/L Critically low 16-63 [facility] Comment on above: Performed By: #### C BC #### [facility] [address] [address] [address] Karen Santos Anion gap [Moles/Vol] 18.2 mmol/L Normal Th [facility] Comment on above: Performed By: #### C BC #### [facility] [address] [address] [address] Karen Santos AST [Catalytic activity/Vol] 9 U/L Critically low 15-37 [facility] Comment on above: Performed By: #### C BC #### [facility] [address] [address] [address] Karen Santos Bilirubin [Mass/Vol] 0.4 mg/dL Normal 0.2-1.0 [facility] Comment on above: Performed By: #### C BC #### [facility] [address] [address] [address] Karen Santos Calcium [Mass/Vol] 8.3 mg/dL Critically low 8.5-10.1 [facility] Comment on above: Performed By: #### C BC #### [facility] [address] [address] [address] Karen Santos Chloride [Moles/Vol] 88 mmol/L Critically low 98-107 [facility] Comment on above: Performed By: #### C BC #### [facility] [address] [address] [address] Karen Santos CO2 [Moles/Vol] 23.9 mmol/L Normal 21.0-32.0 [facility] Comment on above: Performed By: #### C BC #### [facility] [address] [address] [address] Karen Santos Creatinine [Mass/Vol] 8.30 mg/dL Critically high 0.70-1.30 [facility] Comment on above: Result Comment: repe ated Performed By: #### C BC #### [facility] [address] [address] [address] Karen Santos EGFR-AF TONGAN 8 mL/min/1.73m2 Critically low >=60 [facility] Comment on above: Performed By: #### C BC #### [facility] [address] [address] [address] Karen Santos EGFR-NON AF TONGAN 7 mL/min/1.73m2 Critically low >=60 [facility] Comment on above: Performed By: #### C BC #### [facility] [address] [address] [address] Karen Santos Globulin (S) [Mass/Vol] 3.4 g/dL Normal [facility] Comment on above: Performed By: #### C BC #### [facility] [address] [address] [address] Karen Santos Glucose [Mass/Vol] 109 mg/dL Critically high 74-106 T [facility] Comment on above: Performed By: #### C BC #### [facility] [address] [address] [address] Karen Santos Potassium [Moles/Vol] 3.1 mmol/L Critically low 3.5-5.1 [facility] Comment on above: Performed By: #### C BC #### [facility] [address] [address] [address] Karen Santos Protein [Mass/Vol] 7.1 g/dL Normal 6.4-8.2 [facility] Comment on above: Performed By: #### C BC #### [facility] [address] [address] [address] Karen Santos Sodium [Moles/Vol] 127 mmol/L Critically low 136-145 Th [facility] Comment on above: Performed By: #### C BC #### [facility] [address] [address] [address] Karen Santos Urea nitrogen [Mass/Vol] 48.0 mg/dL Critically high 7.0-18.0 [facility] Comment on above: Performed By: #### C BC #### [facility] [address] [address] [address] Karen Santos Urea nitrogen/Creatinine [Mass ratio] 5.8 mg/mg Normal [facility] Comment on above: Performed By: #### C BC #### [facility] [address] [address] [address] Karen Santos CARDIAC SRINIVASAN ADMITon 022 CK [Catalytic activity/Vol] 81 U/L Normal 39-308 [facility] Comment on above: Performed By: #### C BC #### [facility] [address] [place] [address] Dr. Karen Santos CK.MB [Mass/Vol] 1.75 ng/mL Normal <=3.60 [facility] Comment on above: Performed By: #### C BC #### [facility] [address] [place] [address] Dr. Karen Santos HSTROP 20.8 pg/mL Normal 4.0-76.1 [facility] Comment on above: Result Comment: CUT- OFF POINTS HAVE BEEN ESTABLISHED BASED ON THE FOURTH UNIVERSAL DEFINITIONS OF MYOCARDIAL INFARCTION. THE UPPER REFERENCE LIMIT (URL) OF TROPONIN, DEFINED THE 99TH PERCENTILE OF cTnI DISTRIBUTION IN A REFERENCE POPULATION, HAS BEEN CONFIRMED THE DECISION THRESHOLD FOR [place] DIAGNOSIS. Performed By: #### C BC #### [facility] [address] [place] [address] Dr. Karen Santos RUI 129 ng/mL Critically high 16-96 [facility] Comment on above: Performed By: #### C BC #### [facility] [address] [place] [address] Dr. Karen Santos CBC AUTO DIFFon 02-14-2022 BASO # 0.1 103/ul Normal 0.0-0.1 [facility] Comment on above: Performed By: #### C BC #### [facility] [address] [address] [address] Karen Santos Basophils/100 WBC (Bld) 0.4 % Normal 0.2-2.0 [facility] Comment on above: Performed By: #### C BC #### [facility] [address] [address] [address] Karen Santos EO # 0.1 103/ul Normal 0.0-0.7 [facility] Comment on above: Performed By: #### C BC #### [facility] [address] [address] [address] Karen Santos Eosinophils/100 WBC (Bld) 0.9 % Normal 0.9-7.0 [facility] Comment on above: Performed By: #### C BC #### [facility] [address] [place] [address] Dr. Karen Santos Erythrocyte distribution width (RBC) [Ratio] 12.6 % Normal 11.0-15.0 [facility] Comment on above: Performed By: #### C BC #### [facility] [address] [place] [address] Dr. Karen Santos Hematocrit (Bld) [Volume fraction] 39.2 % Critically low 42.0-54.0 [facility] Comment on above: Performed By: #### C BC #### [facility] [address] [place] [address] Dr. Karen Santos Hemoglobin (Bld) [Mass/Vol] 13.9 g/dL Critically low 14.0-18.0 [facility] Comment on above: Performed By: #### C BC #### [facility] [address] [place] [address] Dr. Karen Santos IG # 0.08 10e3/ul Critically high 0.00-0.03 [facility] Comment on above: Performed By: #### C BC #### [facility] [address] [place] [address] Dr. Karen Santos IG % 0.7 % Critically high 0.0-0.5 [facility] Comment on above: Performed By: #### C BC #### [facility] [address] [address] [address] Karen Santos LYMPH # 1.0 103/ul Critically low 1.2-3.8 [facility] Comment on above: Performed By: #### C BC #### [facility] [address] [place] [address] Dr. Karen Santos Lymphocytes/100 WBC (Bld) 8.5 % Critically low 20.5-60.0 [facility] Comment on above: Performed By: #### C BC #### [facility] [address] [place] [address] Dr. Karen Santos MANUAL DIFF REQ NO Normal [facility] Comment on above: Performed By: #### C BC #### [facility] [address] [place] [address] Dr. Karen Santos MCH (RBC) [Entitic mass] 36.1 pg Critically high 25.9-34.0 [facility] Comment on above: Performed By: #### C BC #### [facility] [address] [place] [address] Dr. Karen Santos MCHC (RBC) [Mass/Vol] 35.5 g/dL Critically high 29.9-35.2 [facility] Comment on above: Performed By: #### C BC #### [facility] [address] [place] [address] Dr. Karen Santos MCV (RBC) [Entitic vol] 101.8 fL Critically high 80.0-94.0 [facility] Comment on above: Performed By: #### C BC #### [facility] [address] [place] [address] Dr. Karen Santos MONO # 0.6 103/ul Normal 0.3-0.8 [facility] Comment on above: Performed By: #### C BC #### [facility] [address] [place] [address] Dr. Karen Santos Monocytes/100 WBC (Bld) 5.2 % Normal 1.7-12.0 [facility] Comment on above: Performed By: #### C BC #### [facility] [address] [place], [place] [address] Dr. Karen Santos NEUT # 9.9 103/ul Critically high 1.4-6.5 [facility] Comment on above: Performed By: #### C BC #### [facility] [id number] Karen Santos Neutrophils/100 WBC (Bld) 84.3 % Critically high 43.0-75.0 [facility] Comment on above: Performed By: #### C BC #### [facility] [address] [address] [address] Karen Santos Platelet mean volume (Bld) [Entitic vol] 8.9 fL Critically low 9.5-13.5 [facility] Comment on above: Performed By: #### C BC #### [facility] [address] [place] [address] Dr. Karen Santos PLT 303 103/ul Normal 150-450 [facility] Comment on above: Performed By: #### C BC #### [facility] [id number] Karen Santos RBC 3.85 106/ul Critically low 4.70-6.10 [facility] Comment on above: Performed By: #### C BC #### [facility] [id number] Karen Santos WBC 11.7 103/ul Critically high 4.0-11.0 [facility] Comment on above: Performed By: #### C BC #### [facility] [address] [place], [place] [id number] Dr. Karen Santos CT HEAD WO CONon 02-14-2022 CT HEAD WO CON EXAMINATION: CT HEAD WO CON HISTORY: Hypertensive disorder , headache COMPARISON: CT head without contrast 06/27/2021, MRI brain 06/28/2021 TECHNIQUE: Axial CT images were obtained without IV contrast. Dose reduction techniques were achieved by using automated exposure control and/or adjustment of mA and/or kV according to patient size and/or use of iterative reconstruction technique. 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 No edema, hemorrhage, mass, acute infarction, or inappropriate atrophy. CSF SPACES: No hydrocephalus, subarachnoid hemorrhage, or mass. Appropriate for age. SKULL: No fracture, mass, or other significant visible lesion. SINUSES: Fluid level within right sphenoid sinus. ORBITS: No appreciable abnormality on the limited views. OTHER: Negative IMPRESSION: 1. No intracranial hemorrhage or appreciable acute abnormality brain. 2. Evidence of prior infarctions. No CT findings to suggest acute ischemia. 3. Right sphenoid acute sinusitis. Electronically authenticated by: LUDMILA MACK Date: 2022-02-14 13:41 Normal [facility] PROF 14(COMP METB)on 022 Albumin [Mass/Vol] 4.0 g/dL Normal 3.4-5.0 [facility] Comment on above: Performed By: #### C BC #### [facility] [address] [place] [address] Dr. Karen Santos Albumin/Globulin [Mass ratio] 1.0 {ratio} Normal [facility] Comment on above: Performed By: #### C BC #### [facility] [address] [place] [address] Dr. Karen Santos ALP [Catalytic activity/Vol] 112 U/L Normal 46-116 [facility] Comment on above: Performed By: #### C BC #### [facility] [address] [place] [address] Dr. Kraen Santos ALT [Catalytic activity/Vol] 17 U/L Normal 16-63 [facility] Comment on above: Performed By: #### C BC #### [facility] [address] [address] [address] Karen Santos Anion gap [Moles/Vol] 14.9 mmol/L Normal [facility] Comment on above: Performed By: #### C BC #### [facility] [address] [address] [address] Karen Santos AST [Catalytic activity/Vol] 16 U/L Normal 15-37 [facility] Comment on above: Performed By: #### C BC #### [facility] [address] [address] [address] Karen Santos Bilirubin [Mass/Vol] 0.8 mg/dL Normal 0.2-1.0 [facility] Comment on above: Performed By: #### C BC #### [facility] [address] [address] [address] Karen Santos Calcium [Mass/Vol] 8.9 mg/dL Normal 8.5-10.1 [facility] Comment on above: Performed By: #### C BC #### [facility] [address] [address] [address] Karen Santos Chloride [Moles/Vol] 94 mmol/L Critically low 98-107 [facility] Comment on above: Performed By: #### C BC #### [facility] [address] [address] [address] Karen Santos CO2 [Moles/Vol] 25.0 mmol/L Normal 21.0-32.0 [facility] Comment on above: Performed By: #### C BC #### [facility] [address] [address] [address] Karen Santos Creatinine [Mass/Vol] 2.55 mg/dL Critically high 0.70-1.30 [facility] Comment on above: Performed By: #### C BC #### [facility] [address] [address] [address] Karen Santos EGFR-AF TONGAN 32 mL/min/1.73m2 Critically low >=[address] [facility] Comment on above: Performed By: #### C BC #### [facility] [address] [address] [address] Karen Santos EGFR-NON AF TONGAN 27 mL/min/1.73m2 Critically low >=60 [facility] Comment on above: Performed By: #### C BC #### [facility] [address] [place] [address] Dr. Karen Santos Globulin (S) [Mass/Vol] 4.1 g/dL Normal [facility] Comment on above: Performed By: #### C BC #### [facility] [address] [address] [address] Karen Santos Glucose [Mass/Vol] 105 mg/dL Normal 74-106 [facility] Comment on above: Performed By: #### C BC #### [facility] [address] [address] [address] Karen Santos Potassium [Moles/Vol] 3.0 mmol/L Critically low 3.5-5.1 [facility] Comment on above: Performed By: #### C BC #### [facility] [address] [address] [address] Karen Santos Protein [Mass/Vol] 8.1 g/dL Normal 6.1-8.2 [facility] Comment on above: Performed By: #### C BC #### [facility] [address] [address] [address] Karen Santos Sodium [Moles/Vol] 132 mmol/L Critically low 136-145 [facility] Comment on above: Performed By: #### C BC #### [facility] [address] [address] [address] Karen Santos Urea nitrogen [Mass/Vol] 26.0 mg/dL Critically high 7.0-18.0 [facility] Comment on above: Performed By: #### C BC #### [facility] [address] [address] [address] Karen Santos Urea nitrogen/Creatinine [Mass ratio] 10.2 mg/mg Normal [facility] Comment on above: Performed By: #### C BC #### [facility] [address] [address] [address] Karen Santos PROTIMEon 02-14-2022 INR Coag (PPP) [Relative time] 1.04 {INR} Normal [facility] Comment on above: Performed By: #### P TT, PT ####[facility] [id number] [address]Dr. Karen Santos INR GUIDELINES SEE BELOW Normal [facility] Comment on above: Result Comment: PALAK RED INR: 2.0 - 3.0 CONDITIONS NOT LISTED BELOW 2.5 - 3.5 FOR PROSTHETIC HEART VALVE REPLACEMENT 2.5 - 3.5 RECURRENT THROMBOSIS Performed By: #### P TT, PT ####[facility] [id number] [address]Dr. Karen Santos PT Coag (PPP) [Time] 11.2 s Normal 9.0-11.6 [facility] Comment on above: Performed By: #### P TT, PT ####[facility] [id number] [address]DrEva Santos PTTon 02-14-2022 aPTT Coag (Bld) [Time] 27.7 s Normal 22.3-36.2 Th [facility] Comment on above: Performed By: #### P TT, PT ####[facility] [id number] [address]DrEva Santos XR CHEST 1 Von 02-14-2022 XR CHEST 1 V EXAM: XR CHEST 1 V EXAM: XR CHEST 1 V INDICATION: 51 years old Male Hypertensive disorder COMPARISON: 03/05/22 FINDINGS: The cardiac silhouette is normal. There is no pulmonary edema. The lungs are clear. There is no pneumonia. There is no pneumothorax. There is no abnormal foreign body. Central line is in the SVC. IMPRESSION: There is no acute abnormality. Electronically authenticated by: DYLLAN ABREU Date: 2022-02-14 13:[address] [facility] BNPon 02-13-2022 Natriuretic peptide B (Bld) [Mass/Vol] 1509.0 pg/mL Critically high <=900.[address] [facility] Comment on above: Performed By: #### C MP, BNP, HSTROPN ####[facility] [id number] [id number] Santos CBC AUTO DIFFon 02-13-2022 BASO # 0.1 103/ul Normal 0.0-0.1 [facility] Comment on above: Performed By: #### C BC #### [facility] [address] [address] [address] Karen Santos Basophils/100 WBC (Bld) 0.5 % Normal 0.2-2.0 [facility] Comment on above: Performed By: #### C BC #### [facility] [address] [address] [address] Karen Santos EO # 0.3 103/ul Normal 0.0-0.7 [facility] Comment on above: Performed By: #### C BC #### [facility] [address] [address] [address] Karen Santos Eosinophils/100 WBC (Bld) 2.4 % Normal 0.9-7.0 [facility] Comment on above: Performed By: #### C BC #### [facility] [address] [place] [address] Dr. Karen Santos Erythrocyte distribution width (RBC) [Ratio] 13.1 % Normal 11.0-15.0 [facility] Comment on above: Performed By: #### C BC #### [facility] [address] [place] [address] Dr. Karen Santos Hematocrit (Bld) [Volume fraction] 38.8 % Critically low 42.0-54.0 [facility] Comment on above: Performed By: #### C BC #### [facility] [address] [place] [address] Dr. Karen Santos Hemoglobin (Bld) [Mass/Vol] 13.2 g/dL Critically low 14.0-18.0 [facility] Comment on above: Performed By: #### C BC #### [facility] [address] [place] [address] Dr. Karen Santos IG # 0.06 10e3/ul Critically high 0.00-0.03 [facility] Comment on above: Performed By: #### C BC #### [facility] [address] [place] [address] Dr. Karen Santos IG % 0.6 % Critically high 0.0-0.5 [facility] Comment on above: Performed By: #### C BC #### [facility] [address] [place] [address] Dr. Karen Santos LYMPH # 1.3 103/ul Normal 1.2-3.8 [facility] Comment on above: Performed By: #### C BC #### [facility] [address] [place] [address] Dr. Karen Santos Lymphocytes/100 WBC (Bld) 11.6 % Critically low 20.5-60.0 [facility] Comment on above: Performed By: #### C BC #### [facility] [address] [place] [address] Dr. Karen Santos MANUAL DIFF REQ NO Normal [facility] Comment on above: Performed By: #### C BC #### [facility] [address] [place] [address] Dr. Karen Santos MCH (RBC) [Entitic mass] 35.9 pg Critically high 25.9-34.0 [facility] Comment on above: Performed By: #### C BC #### [facility] [address] [place] [address] Dr. Karen Santos MCHC (RBC) [Mass/Vol] 34.0 g/dL Normal 29.9-35.2 [facility] Comment on above: Performed By: #### C BC #### [facility] [address] [place] [address] Dr. Karen Santos MCV (RBC) [Entitic vol] 105.4 fL Critically high 80.0-94.0 [facility] Comment on above: Performed By: #### C BC #### [facility] [address] [place] [address] Dr. Karen Santos MONO # 0.7 103/ul Normal 0.3-0.[address] [facility] Comment on above: Performed By: #### C BC #### [facility] [address] [place] [address] Dr. Karen Santos Monocytes/100 WBC (Bld) 6.1 % Normal 1.7-12.[address] [facility] Comment on above: Performed By: #### C BC #### [facility] [address] [place] [address] Dr. Karen Santos NEUT # 8.5 103/ul Critically high 1.4-6.5 [facility] Comment on above: Performed By: #### C BC #### [facility] [address] [address] [address] Karen Santos Neutrophils/100 WBC (Bld) 78.8 % Critically high 43.0-75.0 [facility] Comment on above: Performed By: #### C BC #### [facility] [address] [address] [address] Karen Santos Platelet mean volume (Bld) [Entitic vol] 9.1 fL Critically low 9.5-13.5 [facility] Comment on above: Performed By: #### C BC #### [facility] [address] [address] [address] Karen Santos PLT 283 103/ul Normal 150-450 [facility] Comment on above: Performed By: #### C BC #### [facility] [address] [address] [address] Karen Santos RBC 3.68 106/ul Critically low 4.70-6.10 [facility] Comment on above: Performed By: #### C BC #### [facility] [address] [address] [address] Karen Santos WBC 10.8 103/ul Normal 4.0-11.0 [facility] Comment on above: Performed By: #### C BC #### [facility] [address] [address] [address] Karen Santos ER URINE PROFILEon 2 Bilirubin Ql (U) Negative Normal NEGATIVE The [facility] Comment on above: Performed By: #### E RUR ####[facility] [address] [address]Dr. Karen Santos Clarity (U) CLEAR Normal CLEAR The [facility] Comment on above: Performed By: #### E RUR ####[facility] [address] [id number]. Karen Santos Color (U) LT. YELLOW Normal YELLOW The [facility] Comment on above: Performed By: #### E RUR ####[facility] [address] [id number]. Karen Santos ERUAHD A micrscopic examination will be performed if indicated. Normal The [facility] Comment on above: Performed By: #### E RUR ####[facility] [address] [place], [place] [address]Dr. Karen Santos Glucose Ql (U) Negative Normal NEGATIVE The [facility] Comment on above: Performed By: #### E RUR ####[facility] Caiiqivcey[address] [place], [place] [address]Dr. Karen Tom Hemoglobin Ql (U) Negative Normal NEGATIVE The [facility] Comment on above: Performed By: #### E RUR ####[facility] Bplyoaaaaa[address] [place], [place] [address]Dr. Virajacinda Tom Ketones Ql (U) Negative Normal NEGATIVE The [facility] Comment on above: Performed By: #### E RUR ####[facility] [address]psdwsw[address] [place], [place] [address]Dr. Karen Santos LEUKOCYTES Negative Normal NEGATIVE The [facility] Comment on above: Performed By: #### E RUR ####[facility] S[address] [place], [place] [address]Dr. Karen Tom Nitrite Ql (U) Negative Normal NEGATIVE The [facility] Comment on above: Performed By: #### E RUR ####[facility] Ttf[address]tepub[address] [place], [place] [address]Dr. Virajacinda Tom pH (U) 6.0 [pH] Normal 5-[address] [facility] Comment on above: Performed By: #### E RUR ####[facility] Tovdgjdxau[address] [place], [place] [address]Dr. Karen Santos SPEC GRAVITY <=1.005 Abnormal 1.005-<=1.025 The [facility] Comment on above: Performed By: #### E RUR ####[facility] Ozrs[address]si[address] [place], [place] [address]Dr. Karen Santos UA PROTEIN Negative Normal NEGATIVE/ TRACE The [facility] Comment on above: Performed By: #### E RUR ####[facility] Hypwurxyyc[address] [place], [place] [address]Dr. Karen Santos UR MICRO IND NOT INDICATED Normal The [facility] Comment on above: Performed By: #### E RUR ####[facility] [address] [address]Dr. Karen Santos Urobilinogen Qn (U) 0.2 {Itz'U}/dL Normal 0.2 - 1. 0 [facility] Comment on above: Performed By: #### E RUR ####[facility] [address] [address]Dr. Karen Santos MAGNESIUMon 02-13-2022 Magnesium [Mass/Vol] 2.1 mg/dL Normal 1.8-2.4 [facility] Comment on above: Performed By: #### Marcelo Hwang, RENAL ####[facility] [address] [address]Dr. Karen Santos PROF 14(COMP METB)on 022 Albumin [Mass/Vol] 3.8 g/dL Normal 3.4-5.0 [facility] Comment on above: Performed By: #### C MP, BNP, HSTROPN ####[facility] [address] [address]Dr. Karen Santos Performed By: #### Marcelo Hwang, RENAL ####[facility] [address]wevo[address] [address]Dr. Karen Santos Albumin/Globulin [Mass ratio] 0.9 {ratio} Normal [facility] Comment on above: Performed By: #### C MP, BNP, HSTROPN ####[facility] [address] [address]Dr. Karen Santos ALP [Catalytic activity/Vol] 111 U/L Normal 46-[address] [facility] Comment on above: Performed By: #### C MP, BNP, HSTROPN ####[facility] [address] [address]Dr. Karen Santos ALT [Catalytic activity/Vol] 15 U/L Critically low 16-[address] [facility] Comment on above: Performed By: #### C MP, BNP, HSTROPN ####[facility] [address] [address]Dr. Karen Santos Anion gap [Moles/Vol] 14.5 mmol/L Normal Th e [facility] Comment on above: Performed By: #### C MP, BNP, HSTROPN ####[facility] Ncdxcackfy[address] [place], [place] [address]Dr. Karen Santos AST [Catalytic activity/Vol] 10 U/L Critically low 15-37 [facility] Comment on above: Performed By: #### C MP, BNP, HSTROPN ####[facility] Epniwfpcyg6[address] [place], [place] [address]Dr. Karen Santos Bilirubin [Mass/Vol] 0.5 mg/dL Normal 0.2-1.0 [facility] Comment on above: Performed By: #### C MP, BNP, HSTROPN ####[facility] Ydxeykmtmv[address] [place], [place] [address]Dr. Karen Santos Calcium [Mass/Vol] 8.8 mg/dL Normal 8.5-10.1 [facility] Comment on above: Performed By: #### C MP, BNP, HSTROPN ####[facility] Bndgenjydo[address] [place], [place] [address]Dr. Karen Santos Chloride [Moles/Vol] 97 mmol/L Critically low 98-107 [facility] Comment on above: Performed By: #### C MP, BNP, HSTROPN ####[facility] Suebikbjpg[address] [place], [place] [address]Dr. Karen Santos Performed By: #### M G, RENAL ####[facility] Nheomrczgf[address] [place], [place] [address]Dr. Karen Santos CO2 [Moles/Vol] 27.5 mmol/L Normal 21.0-32.0 The [facility] Comment on above: Performed By: #### C MP, BNP, HSTROPN ####[facility] Dqglujbsgx[address] [place], [place] [address]Dr. Karen Santos Creatinine [Mass/Vol] 2.59 mg/dL Critically high 0.70-1.30 [facility] Comment on above: Performed By: #### C MP, BNP, HSTROPN ####[facility] [address] [address]Dr. Karen Santos EGFR-AF TONGAN 32 mL/min/1.73m2 Critically low >=60 [facility] Comment on above: Performed By: #### C MP, BNP, HSTROPN ####[facility] [address] [address]Dr. Viralan Santos EGFR-NON AF TONGAN 26 mL/min/1.73m2 Critically low >=[address] [facility] Comment on above: Performed By: #### C MP, BNP, HSTROPN ####[facility] Ooyuypcnfn[address] [place], [place] [address]Dr. Karen Santos Globulin (S) [Mass/Vol] 4.0 g/dL Normal [facility] Comment on above: Performed By: #### C MP, BNP, HSTROPN ####[facility] Zdyqrhxqht[address] [place], [place] [address]Dr. Karen Santos Glucose [Mass/Vol] 100 mg/dL Normal 74-106 [facility] Comment on above: Performed By: #### C MP, BNP, HSTROPN ####[facility] Dlxifqxnhw[address] [place], [place] [address]Dr. Karen Santos Potassium [Moles/Vol] 3.0 mmol/L Critically low 3.5-5.1 [facility] Comment on above: Performed By: #### C MP, BNP, HSTROPN ####[facility] Ulchnkyrfs[address] [place], [place] [address]Dr. Karen Santos Protein [Mass/Vol] 7.8 g/dL Normal 6.1-8.2 The [facility] Comment on above: Performed By: #### C MP, BNP, HSTROPN ####[facility] Vclkufaesi[address] [place], [place] [address]Dr. Karen Santos Sodium [Moles/Vol] 135 mmol/L Critically low 136-145 Th [facility] Comment on above: Performed By: #### C MP, BNP, HSTROPN ####[facility] [address] [id number]. Karen Santos Urea nitrogen [Mass/Vol] 27.0 mg/dL Critically high 7.0-18.0 [facility] Comment on above: Performed By: #### C MP, BNP, HSTROPN ####[facility] [address] [id number]. Karen Santos Urea nitrogen/Creatinine [Mass ratio] 10.4 mg/mg Normal [facility] Comment on above: Performed By: #### C MP, BNP, HSTROPN ####[facility] [address] [id number]. Karen Santos RENAL FUNCTION PANELon 02-13 Calcium [Mass/Vol] 9.1 mg/dL Normal 8.5-10.1 [facility] Comment on above: Performed By: #### M G, RENAL ####[facility] Txojcvsgvh[address] [place], [place] [address]Dr. Karen Santos CO2 [Moles/Vol] 30.8 mmol/L Normal 21.0-32.0 [facility] Comment on above: Performed By: #### M G, RENAL ####[facility] Ihpioimlbh0[address] [place], [place] [address]Dr. Karen Santos Creatinine [Mass/Vol] 2.67 mg/dL Critically high 0.70-1.[address] [facility] Comment on above: Performed By: #### M G, RENAL ####[facility] Sea[address] [place], [place] [id number]. Karen Santos EGFR-AF TONGAN 31 mL/min/1.73m2 Critically low >=60 [facility] Comment on above: Performed By: #### M G, RENAL ####[facility] [address]vmpkmspuf[address] [place], [place] [address]Dr. Karen Santos EGFR-NON AF TONGAN 25 mL/min/1.73m2 Critically low >=[address] [facility] Comment on above: Performed By: #### M G, RENAL ####[facility] Rfxj[address]au[address] [place], [place] [id number]. Karen Santos Glucose [Mass/Vol] 119 mg/dL Critically high 74-106 [facility] Comment on above: Performed By: #### M G, RENAL ####[facility] [address] [id number]. Karen Santos Phosphate [Mass/Vol] 3.8 mg/dL Normal 2.6-4.7 [facility] Comment on above: Performed By: #### M G, RENAL ####[facility] [address] [id number]. Karen Santos Potassium [Moles/Vol] 3.8 mmol/L Normal 3.5-5.1 [facility] Comment on above: Performed By: #### M G, RENAL ####[facility] [address] [address]Dr. Karen Santos Sodium [Moles/Vol] 137 mmol/L Normal 136-145 [facility] Comment on above: Performed By: #### M G, RENAL ####[facility] [address]ja[address] [id number]. Karen Santos Urea nitrogen [Mass/Vol] 25.0 mg/dL Critically high 7.0-18.0 [facility] Comment on above: Performed By: #### Marcelo Hwang, RENAL ####[facility] [address] [id number]. Karen Santos TROPONIN, HIGH SENSITIVITYon 02-13-2022 HSTROP 20.8 pg/mL Normal 4.0-76.1 [facility] Comment on above: Result Comment: CUT- OFF POINTS HAVE BEEN ESTABLISHED BASED ON THE FOURTH UNIVERSAL DEFINITIONS OF MYOCARDIAL INFARCTION. THE UPPER REFERENCE LIMIT (URL) OF TROPONIN, DEFINED THE 99TH PERCENTILE OF cTnI DISTRIBUTION IN A REFERENCE POPULATION, HAS BEEN CONFIRMED THE DECISION THRESHOLD FOR [place] DIAGNOSIS. Performed By: #### C MP, BNP, HSTROPN ####[facility] [address] [id number]. Karen Santos XR CHEST 1 Von 02-13-2022 XR CHEST 1 V EXAMINATION: XR CHES T 1 V HISTORY: Cough COMPARISON: Chest x-ray 09/13/2021. TECHNIQUE: Portable chest FINDINGS: The lung parenchyma is free of consolidation or infiltrate. No pneumothorax or pleural effusion. Right sided dual lumen central venous access catheter The cardiac, mediastinal and hilar contours are normal. Degenerative changes both acromioclavicular joints. The visualized osseous structures exhibit no acute abnormality. IMPRESSION: No acute cardiopulmonary abnormality. Electronically authenticated by: VIVIAN MCKEON Date: 2022-02-13 20:45 Normal [address] [facility] PROF CHEM 8 (BAS METB)on Anion gap [Moles/Vol] 12.5 mmol/L Normal [facility] Comment on above: Performed By: #### B MP ####[facility] [address] [address]Dr. Karen Santos Calcium [Mass/Vol] 8.7 mg/dL Normal 8.5-10.1 [facility] Comment on above: Performed By: #### B MP ####[facility] Ilyidjxmem[address] [place], [place] [address]Dr. Karen Santos Chloride [Moles/Vol] 101 mmol/L Normal 98-107 [facility] Comment on above: Performed By: #### B MP ####[facility] Vmvtjdrhjc[address] [place], [place] [address]Dr. Karen Santos CO2 [Moles/Vol] 28.8 mmol/L Normal 21.0-32.0 [facility] Comment on above: Performed By: #### B MP ####[facility] Gtkfiekntm[address] [place], [place] [address]Dr. Karen Santos Creatinine [Mass/Vol] 2.31 mg/dL Critically high 0.70-1.30 [facility] Comment on above: Performed By: #### B MP ####[facility] [address]cldjolbfg[address] [place], [place] [address]Dr. Karen Santos EGFR-AF TONGAN 36 mL/min/1.73m2 Critically low >=[address] [facility] Comment on above: Performed By: #### B MP ####[facility] Slcutxsmwh[address] [place], [place] [address]Dr. Karen Santos EGFR-NON AF TONGAN 30 mL/min/1.73m2 Critically low >=60 [facility] Comment on above: Performed By: #### B MP ####[facility] [address] [address]Dr. Karen Santos Glucose [Mass/Vol] 122 mg/dL Critically high 74-106 T [facility] Comment on above: Performed By: #### B MP ####[facility] [address] [address]Dr. Karen Santos Potassium [Moles/Vol] 4.3 mmol/L Normal 3.5-5.1 [facility] Comment on above: Performed By: #### B MP ####[facility] [address]hwuj[address] [address]Dr. Karen Santos Sodium [Moles/Vol] 138 mmol/L Normal 136-145 [facility] Comment on above: Performed By: #### B MP ####[facility] [address]so[address] [address]Dr. Karen Santos Urea nitrogen [Mass/Vol] 26.0 mg/dL Critically high 7.0-18.0 [facility] Comment on above: Performed By: #### B MP ####[facility] [address] [address]Dr. Karen Santos Urea nitrogen/Creatinine [Mass ratio] 11.3 mg/mg Normal [facility] Comment on above: Performed By: #### B MP ####[facility] [address] [address]Dr. Karen Santos RENIN ACTIVITYon 01-10-2022 Renin Activity, Plasma 43.749 ng/mL/hr Critically high 0.1 67-5.380 [facility] Comment on above: Performed By: #### C BC #### [facility] [address] [place] [address] Dr. Karen Santos MAGNESIUMon 12-30-2021 Magnesium [Mass/Vol] 2.2 mg/dL Normal 1.6-2.3 [facility] Comment on above: Performed By: #### C BC #### [facility] [address] [place] [address] Dr. Karen Santos RENAL FUNCTION PANELon 12-30 Albumin [Mass/Vol] 3.5 g/dL Normal 3.4-5.0 [facility] Comment on above: Performed By: #### C BC #### [facility] [address] [address] [address] Karen Santos Calcium [Mass/Vol] 8.1 mg/dL Critically low 8.5-10.1 [facility] Comment on above: Performed By: #### C BC #### [facility] [address] [address] [address] Karen Santos Chloride [Moles/Vol] 97 mmol/L Critically low 98-107 [facility] Comment on above: Performed By: #### C BC #### [facility] [address] [address] [address] Karen Santos CO2 [Moles/Vol] 22.8 mmol/L Normal 22.0-30.0 [facility] Comment on above: Performed By: #### C BC #### [facility] [address] [address] [address] Karen Santos Creatinine [Mass/Vol] 6.56 mg/dL Critically high 0.66-1.25 [facility] Comment on above: Result Comment: TEST REPEATED CRITICAL VALUE VERIFIED Performed By: #### C BC #### [facility] [address] [address] [address] Karen Santos EGFR-AF TONGAN 11 mL/min/1.73m2 Critically low >=60 [facility] Comment on above: Performed By: #### C BC #### [facility] [address] [address] [address] Karen Santos EGFR-NON AF TONGAN 9 mL/min/1.73m2 Critically low >=60 [facility] Comment on above: Performed By: #### C BC #### [facility] [address] [address] [address] Karen Santos Glucose [Mass/Vol] 109 mg/dL Critically high 74-106 [facility] Comment on above: Performed By: #### C BC #### [facility] [address] [address] [address] Karen Santos Phosphate [Mass/Vol] 6.2 mg/dL Critically high 2.5-4.5 [facility] Comment on above: Result Comment: TEST REPEATED CRITICAL VALUE VERIFIED Performed By: #### C BC #### [facility] [address] [address] [address] Karen Santos Potassium [Moles/Vol] 3.4 mmol/L Normal 3.4-5.0 [facility] Comment on above: Performed By: #### C BC #### [facility] [address] [address] [address] Karen Santos Sodium [Moles/Vol] 133 mmol/L Critically low 137-145 Th [facility] Comment on above: Performed By: #### C BC #### [facility] [address] [place] [address] Dr. Karen Santos Urea nitrogen [Mass/Vol] 69.0 mg/dL Critically high 7.0-18.0 [facility] Comment on above: Performed By: #### C BC #### [facility] [address] [place] [address] Dr. Karen Santos ALDOSTERONE LCMS, SERUMon Aldosterone 1.4 ng/dL Normal 0.0-30.0 [facility] Comment on above: Performed By: #### C BC #### [facility] [address] [address] [address] Karen Santos METANEPHRINES PLASMA FREEon 12-22-2021 Metanephrine, Pl 46.7 pg/mL Normal 0.0-88.0 [facility] Comment on above: Performed By: #### M ETANPF ####[facility] [address]vnbxqq[address] [place], [place] [address]Dr. Karen Santos Normetanephrine, Pl 163.0 pg/mL Normal 0.0-244.0 [facility] Comment on above: Performed By: #### M ETANPF ####[facility] [address]fxfwokyes[address] [place], [place] [address]Dr. Karen Santos RENAL FUNCTION PANELon 12-22 Albumin [Mass/Vol] 3.9 g/dL Normal 3.5-5.0 The [facility] Comment on above: Performed By: #### R ENAL ####[facility] [address] [address]Dr. Karen Santos Calcium [Mass/Vol] 8.9 mg/dL Normal 8.4-10.2 The [facility] Comment on above: Performed By: #### R ENAL ####[facility] [address] [address]Dr. Karen Santos Chloride [Moles/Vol] 103 mmol/L Normal 98-[address] [facility] Comment on above: Performed By: #### R ENAL ####[facility] [address] [address]Dr. Karen Santos CO2 [Moles/Vol] 22.8 mmol/L Normal 22.0-30.0 [facility] Comment on above: Performed By: #### R ENAL ####[facility] [address]equgjqb[address] [place], [place] [address]Dr. Karen Santos Creatinine [Mass/Vol] 4.68 mg/dL Critically high 0.66-1.[address] [facility] Comment on above: Performed By: #### R ENAL ####[facility] [address]jpvrtap[address] [place], [place] [address]Dr. Karen Tom EGFR-AF TONGAN 16 mL/min/1.73m2 Critically low >=[address] [facility] Comment on above: Performed By: #### R ENAL ####[facility] [address] [address]Dr. Karen Santos EGFR-NON AF TONGAN 13 mL/min/1.73m2 Critically low >=[address] [facility] Comment on above: Performed By: #### R ENAL ####[facility] [address]priqv[address] [address]Dr. Karen Santos Glucose [Mass/Vol] 99 mg/dL Normal 74-106 The [facility] Comment on above: Performed By: #### R ENAL ####[facility] [address] [id number]. Karen Santos Phosphate [Mass/Vol] 4.7 mg/dL Critically high 2.5-4.5 [facility] Comment on above: Performed By: #### R ENAL ####[facility] [address] [id number]. Karen Santos Potassium [Moles/Vol] 5.4 mmol/L Critically high 3.4-5.0 [facility] Comment on above: Performed By: #### R ENAL ####[facility] [address]rs[address] [address]Dr. Karen Santos Sodium [Moles/Vol] 135 mmol/L Critically low 137-145 Th [facility] Comment on above: Performed By: #### R ENAL ####[facility] [address] [address]Dr. Karen Santos Urea nitrogen [Mass/Vol] 64.0 mg/dL Critically high 9.0-20.0 [facility] Comment on above: Performed By: #### R ENAL ####[facility] [address] [address]Dr. Karen Santos RENAL FUNCTION PANELon 12-19 Albumin [Mass/Vol] 3.5 g/dL Normal 3.5-5.0 [facility] Comment on above: Performed By: #### C BC #### [facility] [address] [address] [address] Karen Santos Calcium [Mass/Vol] 8.5 mg/dL Normal 8.4-10.2 The [facility] Comment on above: Performed By: #### C BC #### [facility] [address] [address] [address] Karen Santos Chloride [Moles/Vol] 107 mmol/L Normal 98-[address] [facility] Comment on above: Performed By: #### C BC #### [facility] [address] [address] [address] Karen Santos CO2 [Moles/Vol] 21.2 mmol/L Critically low 22.0-30.0 [facility] Comment on above: Performed By: #### C BC #### [facility] [address] [address] [address] Karen Santos Creatinine [Mass/Vol] 4.93 mg/dL Critically high 0.66-1.25 [facility] Comment on above: Performed By: #### C BC #### [facility] [address] [address] [address] Karen Santos EGFR-AF TONGAN 15 mL/min/1.73m2 Critically low >=60 [facility] [facility] Comment on above: Performed By: #### C BC #### [facility] [address] [address] [address] Karen Santos EGFR-NON AF TONGAN 12 mL/min/1.73m2 Critically low >=60 [facility] Comment on above: Performed By: #### C BC #### [facility] [address] [address] [address] Karen Santos Glucose [Mass/Vol] 113 mg/dL Critically high 74-106 [facility] Comment on above: Performed By: #### C BC #### [facility] [address] [address] [address] Karen Santos Phosphate [Mass/Vol] 5.0 mg/dL Critically high 2.5-4.5 [facility] Comment on above: Performed By: #### C BC #### [facility] [address] [address] [address] Karen Santos Potassium [Moles/Vol] 5.2 mmol/L Critically high 3.4-5.0 [facility] Comment on above: Performed By: #### C BC #### [facility] [address] [address] [address] Karen Santos Sodium [Moles/Vol] 138 mmol/L Normal 137-145 [facility] Comment on above: Performed By: #### C BC #### [facility] [address] [address] [address] Karen Santos Urea nitrogen [Mass/Vol] 60.0 mg/dL Critically high 9.0-20.0 [facility] Comment on above: Performed By: #### C BC #### [facility] [address] [address] [address] Karen Santos PROF CHEM 8 (BAS METB)on Anion gap [Moles/Vol] 13.7 mmol/L Normal Th [facility] Comment on above: Performed By: #### C BC #### [facility] [address] [place] [address] Dr. Karen Santos Calcium [Mass/Vol] 8.8 mg/dL Normal 8.4-10.2 [facility] Comment on above: Performed By: #### C BC #### [facility] [address] [place] [address] Dr. Karen Santos Chloride [Moles/Vol] 102 mmol/L Normal 98-107 [facility] Comment on above: Performed By: #### C BC #### [facility] [address] [place] [address] Dr. Karen Santos CO2 [Moles/Vol] 23.6 mmol/L Normal 22.0-30.0 [facility] Comment on above: Performed By: #### C BC #### [facility] [address] [place] [address] Dr. Karen Santos Creatinine [Mass/Vol] 4.15 mg/dL Critically high 0.66-1.25 [facility] Comment on above: Performed By: #### C BC #### [facility] [address] [place] [address] Dr. Karen Santos EGFR-AF TONGAN 18 mL/min/1.73m2 Critically low >=[address] [facility] Comment on above: Performed By: #### C BC #### [facility] [address] [place] [address] Dr. Karen Santos EGFR-NON AF TONGAN 15 mL/min/1.73m2 Critically low >=60 [facility] Comment on above: Performed By: #### C BC #### [facility] [address] [place] [address] Dr. Karen Santos Glucose [Mass/Vol] 108 mg/dL Critically high 74-106 [facility] Comment on above: Performed By: #### C BC #### [facility] [address] [address] [address] Karen Santos Potassium [Moles/Vol] 5.3 mmol/L Critically high 3.4-5.0 [facility] Comment on above: Performed By: #### C BC #### [facility] [address] [address] [address] Karen Santos Sodium [Moles/Vol] 134 mmol/L Critically low 137-145 Th [facility] Comment on above: Performed By: #### C BC #### [facility] [address] [address] [address] Karen Santos Urea nitrogen [Mass/Vol] 49.0 mg/dL Critically high 9.0-20.0 [facility] Comment on above: Performed By: #### C BC #### [facility] [address] [address] [address] Karen Santos Urea nitrogen/Creatinine [Mass ratio] 11.8 mg/mg Normal [facility] Comment on above: Performed By: #### C BC #### [facility] [address] [address] [address] Karen Santos B-Type Natriuretic Peptideon 12-05-2021 Natriuretic peptide B (Bld) [Mass/Vol] 50.0 pg/mL 5-100 [facility] [employer] Other BNPon 12-05-2021 Natriuretic peptide B (Bld) [Mass/Vol] 720.0 pg/mL Normal <=900.0 [facility] Comment on above: Performed By: #### B MANAGER UROLOGY, CMP ####[facility] [address] [id number]. Karen Santos Comprehensive Metabolic Pane fletcher 12-05-2021 Albumin [Mass/Vol] 3.9 g/dL 3.2-5.5 [employer] Other Albumin/Globulin [Mass ratio] 1.2 {ratio} [employer] Other ALP [Catalytic activity/Vol] 89 U/L 32-92 [facility] [employer] Other ALT [Catalytic activity/Vol] 10 U/L 10-60 [facility] [employer] Other AST [Catalytic activity/Vol] 10 U/L 10-42 [facility] [employer] Other Bilirubin [Mass/Vol] 0.7 mg/dL 0.3-1.2 [facility] [employer] Other Calcium [Mass/Vol] 9.1 mg/dL Normal 8.4-10.2 [facility] [employer] Other Comment on above: Performed By: #### B MANAGER UROLOGY, CMP ####[facility] [address] [place], [place] [address]Dr. Karen Santos Chloride [Moles/Vol] 101 mmol/L Normal 98-107 [facility] [employer] Other Comment on above: Performed By: #### B MANAGER UROLOGY, CMP ####[facility] [address] [place], [place] [address]Dr. Karen Santos CO2 [Moles/Vol] 18.1 mmol/L 22.0-30.0 [facility] [employer] Other Creatinine [Mass/Vol] 5.16 mg/dL 0.64-1.27 [facility] [employer] Other Glucose [Mass/Vol] 89 mg/dL 70-100 [facility] [employer] Other Potassium [Moles/Vol] 5.3 mmol/L Critically high 3.4-5.0 [facility] [employer] Other Comment on above: Performed By: #### B MANAGER UROLOGY, CMP ####[facility] [address] [place], [place] [address]Dr. Karen Santos Protein [Mass/Vol] 7.2 g/dL 6.1-7.9 [employer] Other Sodium [Moles/Vol] 131 mmol/L 136-146 [facility] [employer] Other Urea nitrogen [Mass/Vol] 49 mg/dL 07-07 [facility] [employer] Other Comprehensive Metabolic Panel 12 [employer] Other Comprehensive Metabolic Panel 14 [facility] [employer] Other Comprehensive Metabolic Panel 3.3 [employer] Other PHOSPHORUSon 12-05-2021 Phosphate [Mass/Vol] 5.2 mg/dL Critically high 2.5-4.5 [facility] Comment on above: Performed By: #### P HOS ####[facility] [address] [place], [place] [address]Dr. Karen Santos PROF 14(COMP METB)on 022 Albumin [Mass/Vol] 3.8 g/dL Normal 3.5-5.0 [facility] Comment on above: Performed By: #### B MANAGER UROLOGY, CMP ####[facility] [address] [place], [place] [address]Dr. Karen Santos Albumin/Globulin [Mass ratio] 1.0 {ratio} Normal [facility] Comment on above: Performed By: #### B MANAGER UROLOGY, CMP ####[facility] [address] [place], [place] [address]Dr. Karen Santos ALP [Catalytic activity/Vol] 109 U/L Normal 38-126 [facility] Comment on above: Performed By: #### B MANAGER UROLOGY, CMP ####[facility] [address] [place], [place] [address]Dr. Karen Santos ALT [Catalytic activity/Vol] 12 U/L Critically low 21-72 [facility] Comment on above: Performed By: #### B MANAGER UROLOGY, CMP ####[facility] [address] [place], [place] [address]Dr. Karen Santos Anion gap [Moles/Vol] 16.7 mmol/L Normal [facility] Comment on above: Performed By: #### B MANAGER UROLOGY, CMP ####[facility] [address] [place], [place] [address]Dr. Karen Santos AST [Catalytic activity/Vol] 8 U/L Critically low 17-59 [facility] Comment on above: Performed By: #### B MANAGER UROLOGY, CMP ####[facility] [address] [place], [place] [address]Dr. Karen Santos Bilirubin [Mass/Vol] 0.4 mg/dL Normal 0.2-1.3 [facility] Comment on above: Performed By: #### B MANAGER UROLOGY, CMP ####[facility] [address] [place], [place] [address]Dr. Karen Santos CO2 [Moles/Vol] 21.6 mmol/L Critically low 22.0-30.0 [facility] Comment on above: Performed By: #### B MANAGER UROLOGY, CMP ####[facility] [address] [place], [place] [address]Dr. Virajacinda Santos Creatinine [Mass/Vol] 5.29 mg/dL Critically high 0.66-1.25 [facility] Comment on above: Performed By: #### B MANAGER UROLOGY, CMP ####[facility] [address] [place], [place] [address]Dr. Virajacinda Tom EGFR-AF TONGAN 14 mL/min/1.73m2 Critically low >=60 [facility] Comment on above: Performed By: #### B MANAGER UROLOGY, CMP ####[facility] [address] [place], [place] [address]Dr. Virajacinda Tom EGFR-NON AF TONGAN 11 mL/min/1.73m2 Critically low >=60 [facility] Comment on above: Performed By: #### B MANAGER UROLOGY, CMP ####[facility] [address] [place], [place] [address]Dr. Karen Santos Globulin (S) [Mass/Vol] 3.8 g/dL Normal [facility] Comment on above: Performed By: #### B MANAGER UROLOGY, CMP ####[facility] [address] [place], [place] [address]Dr. Karen Santos Glucose [Mass/Vol] 111 mg/dL Critically high 74-106 [facility] Comment on above: Performed By: #### B MANAGER UROLOGY, CMP ####[facility] [address] [place], [place] [id number]. Karen Santos Protein [Mass/Vol] 7.6 g/dL Normal 6.1-8.2 The [facility] Comment on above: Performed By: #### B MANAGER UROLOGY, CMP ####[facility] [address] [id number]. Karen Santos Sodium [Moles/Vol] 134 mmol/L Critically low 137-145 Th [facility] Comment on above: Performed By: #### B MANAGER UROLOGY, CMP ####[facility] [address] [address]Dr. Karen Santos Urea nitrogen [Mass/Vol] 51.0 mg/dL Critically high 9.0-20.0 [facility] Comment on above: Performed By: #### B MANAGER UROLOGY, CMP ####[facility] [address] [address]Dr. Karen Santos Urea nitrogen/Creatinine [Mass ratio] 9.6 mg/mg Normal [facility] Comment on above: Performed By: #### B MANAGER UROLOGY, CMP ####[facility] [address] [address]Dr. Karen Santos HEMOGRAM AND PLATELon 2021 Hematocrit (Bld) [Volume fraction] 36.4 % Critically low 42.0-54.0 [facility] Comment on above: Performed By: #### C BC #### [facility] [address] [place] [address] Dr. Karen Santos Hemoglobin (Bld) [Mass/Vol] 12.2 g/dL Critically low 14.0-18.0 [facility] Comment on above: Performed By: #### C BC #### [facility] [address] [address] [address] Karen Santos MCH (RBC) [Entitic mass] 34.8 pg Critically high 25.9-34.0 [facility] Comment on above: Performed By: #### C BC #### [facility] [address] [address] [address] Karen Santos MCHC (RBC) [Mass/Vol] 33.5 g/dL Normal 29.9-35.2 [facility] Comment on above: Performed By: #### C BC #### [facility] [address] [address] [address] Karen Santos MCV (RBC) [Entitic vol] 103.7 fL Critically high 80.0-94.0 [facility] Comment on above: Performed By: #### C BC #### [facility] [address] [address] [address] Karen Santos PLT 215 103/ul Normal 150-[address] [facility] Comment on above: Performed By: #### C BC #### [facility] [address] [place] [address] Dr. Karen Santos RBC 3.51 106/ul Critically low 4.70-6.10 [facility] Comment on above: Performed By: #### C BC #### [facility] [address] [place] [address] Dr. Karen Santos WBC 9.3 103/ul Normal 4.0-11.0 [facility] Comment on above: Performed By: #### C BC #### [facility] [address] [place] [address] Dr. Karen Santos MAGNESIUMon 11-28-2021 Magnesium [Mass/Vol] 2.3 mg/dL Normal 1.6-2.[address] [facility] Comment on above: Performed By: #### M G, RENAL #### [facility] [address] [place] [address] Dr. Karen Santos RENAL FUNCTION PANELon 11-28 Albumin [Mass/Vol] 3.5 g/dL Normal 3.5-5.0 The [facility] Comment on above: Performed By: #### M G, RENAL #### [facility] [address] [place] [address] Dr. Karen Santos Calcium [Mass/Vol] 8.9 mg/dL Normal 8.4-10.2 The [facility] Comment on above: Performed By: #### M G, RENAL #### [facility] [address] [place] [address] Dr. Karen Santos Chloride [Moles/Vol] 106 mmol/L Normal 98-107 [facility] Comment on above: Performed By: #### M G, RENAL #### [facility] [address] [place] [address] Dr. Karen Santos CO2 [Moles/Vol] 22.7 mmol/L Normal 22.0-30.0 [facility] Comment on above: Performed By: #### M G, RENAL #### [facility] [address] [place] [address] Dr. Karen Santos Creatinine [Mass/Vol] 3.00 mg/dL Critically high 0.66-1.25 [facility] Comment on above: Performed By: #### M G, RENAL #### [facility] [address] [place] [address] Dr. Karen Santos EGFR-AF TONGAN 27 mL/min/1.73m2 Critically low >=60 [facility] Comment on above: Performed By: #### Marcelo Hwang, RENAL #### [facility] [address] [place] [address] Dr. Karen Santos EGFR-NON AF TONGAN 22 mL/min/1.73m2 Critically low >=60 [facility] Comment on above: Performed By: #### M G, RENAL #### [facility] [address] [place] [address] Dr. Karen Santos Glucose [Mass/Vol] 87 mg/dL Normal 74-106 [facility] Comment on above: Performed By: #### M G, RENAL #### [facility] [address] [place] [address] Dr. Karen Santos Phosphate [Mass/Vol] 3.5 mg/dL Normal 2.5-4.5 [facility] Comment on above: Performed By: #### M G, RENAL #### [facility] [address] [place] [address] Dr. Karen Santos Potassium [Moles/Vol] 5.4 mmol/L Critically high 3.4-5.0 [facility] Comment on above: Performed By: #### M G, RENAL #### [facility] [address] [place] [address] Dr. Karen Santos Sodium [Moles/Vol] 136 mmol/L Critically low 137-[address] [facility] Comment on above: Performed By: #### M G, RENAL #### [facility] [address] [place] [address] Dr. Karen Santos Urea nitrogen [Mass/Vol] 36.0 mg/dL Critically high 9.0-20.0 [facility] Comment on above: Performed By: #### M G, RENAL #### [facility] [address] [place] [address] Dr. Karen Santos US KIDNEYSon 10-29-2021 US KIDNEYS EXAM: US KIDNEYS, 10/29/2021 HISTORY: Essential hypertension COMPARISON: Prior scan from 07/16/2020. TECHNIQUE: Ultrasound examination of the kidneys was performed. FINDINGS: The right kidney measures 10.3 x 4.5 x 5.57 in size. Cortical thickness measures 1.1 cm. There is normal color Doppler flow in the right kidney. No hydronephrosis or obvious mass is seen. The left kidney measures 7.1 x 3.4 x 4.1 cm in size. The cortical thickness is decreased and measures 0.8 cm. No hydronephrosis or obvious mass in the left kidney. Limited Doppler exam shows arterial color flow. IMPRESSION: Unremarkable right kidney. Moderate diffuse atrophy of the left kidney. Electronically authenticated by: ADRIENNE MOLINA Date: 2021-10-29 09:39 Normal [address] [facility] BNPon 09-13-2021 Natriuretic peptide B (Bld) [Mass/Vol] 316.0 pg/mL Normal <=900.0 [facility] Comment on above: Performed By: #### C BC #### [facility] [address] [place] [address] Dr. Karen Santos CBC AUTO DIFFon 09-13-2021 BASO # 0.1 103/ul Normal 0.0-0.1 [facility] Comment on above: Performed By: #### M Jaiden, RENAL #### [facility] [address] [place] [address] Dr. Karen Santos Basophils/100 WBC (Bld) 0.5 % Normal 0.2-2.0 [facility] Comment on above: Performed By: #### M G, RENAL #### [facility] [address] [place] [address] Dr. Karen Santos EO # 0.3 103/ul Normal 0.0-0.7 [facility] Comment on above: Performed By: #### M G, RENAL #### [facility] [address] [place] [address] Dr. Karen Santos Eosinophils/100 WBC (Bld) 2.9 % Normal 0.9-7.0 [facility] Comment on above: Performed By: #### M G, RENAL #### [facility] [address] [place] [address] Dr. Karen Santos Erythrocyte distribution width (RBC) [Ratio] 14.9 % Normal 11.0-15.0 [facility] Comment on above: Performed By: #### M G, RENAL #### [facility] [address] [place] [address] Dr. Karen Santos Hematocrit (Bld) [Volume fraction] 38.3 % Critically low 42.0-54.0 [facility] Comment on above: Performed By: #### M G, RENAL #### [facility] [address] [place] [address] Dr. Karen Santos Hemoglobin (Bld) [Mass/Vol] 12.9 g/dL Critically low 14.0-18.0 [facility] Comment on above: Performed By: #### M G, RENAL #### [facility] [address] [place] [address] Dr. Karen Santos IG # 0.07 10e3/ul Critically high 0.00-0.03 [facility] Comment on above: Performed By: #### M G, RENAL #### [facility] [address] [place] [address] Dr. Karen Santos IG % 0.6 % Critically high 0.0-0.5 [facility] Comment on above: Performed By: #### M G, RENAL #### [facility] [address] [place] [address] Dr. Karen Santos LYMPH # 2.4 103/ul Normal 1.2-3.8 [facility] Comment on above: Performed By: #### M G, RENAL #### [facility] [address] [place] [address] Dr. Karen Santos Lymphocytes/100 WBC (Bld) 21.3 % Normal 20.5-60.0 [facility] Comment on above: Performed By: #### M G, RENAL #### [facility] [address] [place] [address] Dr. Karen Santos MANUAL DIFF REQ NO Normal [facility] Comment on above: Performed By: #### M G, RENAL #### [facility] [address] [place] [address] Dr. Karen Santos MCH (RBC) [Entitic mass] 33.6 pg Normal 25.9-34.0 [facility] Comment on above: Performed By: #### M G, RENAL #### [facility] [address] [place] [address] Dr. Karen Santos MCHC (RBC) [Mass/Vol] 33.7 g/dL Normal 29.9-35.2 [facility] Comment on above: Performed By: #### M G, RENAL #### [facility] [address] [place] [address] Dr. Karen Santos MCV (RBC) [Entitic vol] 99.7 fL Critically high 80.0-94.0 [facility] Comment on above: Performed By: #### M G, RENAL #### [facility] [address] [place] [address] Dr. Karen Santos MONO # 0.8 103/ul Normal 0.3-0.8 [facility] Comment on above: Performed By: #### M G, RENAL #### [facility] [address] [place] [address] Dr. Karen Santos Monocytes/100 WBC (Bld) 7.2 % Normal 1.7-12.0 [facility] Comment on above: Performed By: #### M G, RENAL #### [facility] [address] [place] [address] Dr. Karen Santos NEUT # 7.7 103/ul Critically high 1.4-6.5 [facility] Comment on above: Performed By: #### M G, RENAL #### [facility] [address] [place] [address] Dr. Karen Santos Neutrophils/100 WBC (Bld) 67.5 % Normal 43.0-75.0 [facility] Comment on above: Performed By: #### M Jaiden, RENAL #### [facility] [address] [place] [address] Dr. Karen Santos Platelet mean volume (Bld) [Entitic vol] 9.4 fL Critically low 9.5-13.[address] [facility] Comment on above: Performed By: #### Marcelo Hwang, RENAL #### [facility] [address] [place] [address] Dr. Karen Santos PLT 330 103/ul Normal 150-[address] [facility] Comment on above: Performed By: #### Marcelo Hwang, RENAL #### [facility] [address] [place] [address] Dr. Karen Santos RBC 3.84 106/ul Critically low 4.70-6.10 [facility] Comment on above: Performed By: #### Marcelo Hwang, RENAL #### [facility] [address] [place] [address] Dr. Karen Santos WBC 11.4 103/ul Critically high 4.0-11.0 The [facility] Comment on above: Performed By: #### Marcelo Hwang, RENAL #### [facility] [address] [place] [address] Dr. Karen Santos PROF 14(COMP METB)on 021 Albumin [Mass/Vol] 3.7 g/dL Normal 3.5-5.0 The [facility] Comment on above: Performed By: #### C BC #### [facility] [address] [place] [address] Dr. Karen Santos Albumin/Globulin [Mass ratio] 0.8 {ratio} Normal [facility] Comment on above: Performed By: #### C BC #### [facility] [address] [place] [address] Dr. Karen Santos ALP [Catalytic activity/Vol] 113 U/L Normal 38-126 [facility] Comment on above: Performed By: #### C BC #### [facility] [address] [address] [address] Karen Santos ALT [Catalytic activity/Vol] 20 U/L Critically low 21-72 [facility] Comment on above: Performed By: #### C BC #### [facility] [address] [address] [address] Karen Santos Anion gap [Moles/Vol] 14.1 mmol/L Normal Th [facility] Comment on above: Performed By: #### C BC #### [facility] [facility] [address] [address] [address] Karne Santos AST [Catalytic activity/Vol] 8 U/L Critically low 17-59 [facility] Comment on above: Performed By: #### C BC #### [facility] [address] [address] [address] Karen Santos Bilirubin [Mass/Vol] 0.3 mg/dL Normal 0.2-1.3 [facility] Comment on above: Performed By: #### C BC #### [facility] [address] [place] [address] Dr. Karen Santos Calcium [Mass/Vol] 9.3 mg/dL Normal 8.4-10.2 [facility] Comment on above: Performed By: #### C BC #### [facility] [address] [address] [address] Karen Santos Chloride [Moles/Vol] 103 mmol/L Normal 98-107 [facility] Comment on above: Performed By: #### C BC #### [facility] [address] [address] [address] Karen Santos CO2 [Moles/Vol] 23.7 mmol/L Normal 22.0-30.0 [facility] Comment on above: Performed By: #### C BC #### [facility] [address] [address] [address] Karen Santos Creatinine [Mass/Vol] 2.16 mg/dL Critically high 0.66-1.25 [facility] Comment on above: Performed By: #### C BC #### [facility] [address] [place] [address] Dr. Karen Santos EGFR-AF TONGAN 39 mL/min/1.73m2 Critically low >=60 [facility] Comment on above: Performed By: #### C BC #### [facility] [address] [address] [address] Karen Santos EGFR-NON AF TONGAN 32 mL/min/1.73m2 Critically low >=60 [facility] Comment on above: Performed By: #### C BC #### [facility] [address] [place] [address] Dr. Karen Santos Globulin (S) [Mass/Vol] 4.5 g/dL Normal [facility] Comment on above: Performed By: #### C BC #### [facility] [address] [place] [address] Dr. Karen Santos Glucose [Mass/Vol] 101 mg/dL Normal 74-106 [facility] Comment on above: Performed By: #### C BC #### [facility] [address] [address] [address] Karen Santos Potassium [Moles/Vol] 3.8 mmol/L Normal 3.4-5.0 [facility] Comment on above: Performed By: #### C BC #### [facility] [address] [place] [address] Dr. Karen Santos Protein [Mass/Vol] 8.2 g/dL Normal 6.1-8.2 [facility] Comment on above: Performed By: #### C BC #### [facility] [address] [address] [address] Karen Santos Sodium [Moles/Vol] 137 mmol/L Normal 137-145 [facility] Comment on above: Performed By: #### C BC #### [facility] [address] [address] [address] Karen Santos Urea nitrogen [Mass/Vol] 18.0 mg/dL Normal 9.0-20.0 [facility] Comment on above: Performed By: #### C BC #### [facility] [address] [address] [address] Karen Santos Urea nitrogen/Creatinine [Mass ratio] 8.3 mg/mg Normal [facility] Comment on above: Performed By: #### C BC #### [facility] [address] [address] [address] Karen Santos TROPONIN, HIGH SENSITIVITYon 09-13-2021 HSTROP 12.1 pg/mL Normal 4.0-42.2 [facility] Comment on above: Result Comment: CUT- OFF POINTS HAVE BEEN ESTABLISHED BASED ON THE FOURTH UNIVERSAL DEFINITIONS OF MYOCARDIAL INFARCTION. THE UPPER REFERENCE LIMIT (URL) OF TROPONIN, DEFINED THE 99TH PERCENTILE OF cTnI DISTRIBUTION IN A REFERENCE POPULATION, HAS BEEN CONFIRMED THE DECISION THRESHOLD FOR [place] DIAGNOSIS. Performed By: #### C BC #### [facility] [address] [address] [address] Karen Santos XR CHEST 1 Von 09-13-2021 XR CHEST 1 V EXAM: XR CHEST 1 V HISTORY: The patient is a 51-year-old male with chest pain. COMPARISON: 09/10/2021. FINDINGS: The lungs are well-inflated and clear with no confluent airspace infiltrates, pleural effusions, or pneumothoraces. The heart and mediastinum are within normal limits. The trachea is midline. IMPRESSION: No acute cardiopulmonary abnormalities. Electronically authenticated by: SANDRA SINGH Date: 2021-09-13 21:26 Normal [facility] CBC AUTO DIFFon 09-10-2021 BASO # 0.1 103/ul Normal 0.0-0.1 [facility] Comment on above: Performed By: #### C BC #### [facility] [address] [address] [address] Karen Santos Basophils/100 WBC (Bld) 0.7 % Normal 0.2-2.0 [facility] Comment on above: Performed By: #### C BC #### [facility] [address] [address] [address] Karen Santos EO # 0.3 103/ul Normal 0.0-0.7 [facility] Comment on above: Performed By: #### C BC #### [facility] [address] [place] [address] Dr. Karen Santos Eosinophils/100 WBC (Bld) 2.3 % Normal 0.9-7.0 [facility] Comment on above: Performed By: #### C BC #### [facility] [address] [place] [address] Dr. Karen Santos Erythrocyte distribution width (RBC) [Ratio] 14.5 % Normal 11.0-15.0 [facility] Comment on above: Performed By: #### C BC #### [facility] [address] [place] [address] Dr. Karen Santos Hematocrit (Bld) [Volume fraction] 42.8 % Normal 42.0-54.0 [facility] Comment on above: Performed By: #### C BC #### [facility] [address] [place] [address] Dr. Karen Santos Hemoglobin (Bld) [Mass/Vol] 14.5 g/dL Normal 14.0-18.0 [facility] Comment on above: Performed By: #### C BC #### [facility] [address] [place] [address] Dr. Karen Santos IG # 0.06 10e3/ul Critically high 0.00-0.03 [facility] Comment on above: Performed By: #### C BC #### [facility] [address] [place] [address] Dr. Karen Santos IG % 0.6 % Critically high 0.0-0.5 [facility] Comment on above: Performed By: #### C BC #### [facility] [address] [place] [address] Dr. Karen Santos LYMPH # 1.8 103/ul Normal 1.2-3.8 [facility] Comment on above: Performed By: #### C BC #### [facility] [address] [place] [address] Dr. Karen Santos Lymphocytes/100 WBC (Bld) 16.5 % Critically low 20.5-60.0 [facility] Comment on above: Performed By: #### C BC #### [facility] [address] [place] [address] Dr. Karen Santos MANUAL DIFF REQ NO Normal [facility] Comment on above: Performed By: #### C BC #### [facility] [address] [place] [address] Dr. Karen Santos MCH (RBC) [Entitic mass] 33.5 pg Normal 25.9-34.0 [facility] Comment on above: Performed By: #### C BC #### [facility] [address] [place] [address] Dr. Karen Santos MCHC (RBC) [Mass/Vol] 33.9 g/dL Normal 29.9-35.2 [facility] Comment on above: Performed By: #### C BC #### [facility] [address] [place] [address] Dr. Karen Santos MCV (RBC) [Entitic vol] 98.8 fL Critically high 80.0-94.0 [facility] Comment on above: Performed By: #### C BC #### [facility] [address] [place] [address] Dr. Karen Santos MONO # 0.6 103/ul Normal 0.3-0.8 [facility] Comment on above: Performed By: #### C BC #### [facility] [address] [place] [address] Dr. Karen Santos Monocytes/100 WBC (Bld) 5.6 % Normal 1.7-12.0 [facility] Comment on above: Performed By: #### C BC #### [facility] [address] [place] [address] Dr. Karen Santos NEUT # 7.9 103/ul Critically high 1.4-6.5 [facility] Comment on above: Performed By: #### C BC #### [facility] [address] [place] [address] Dr. Karen Santos Neutrophils/100 WBC (Bld) 74.3 % Normal 43.0-75.0 [facility] Comment on above: Performed By: #### C BC #### [facility] [address] [address] [address] Karen Santos Platelet mean volume (Bld) [Entitic vol] 9.2 fL Critically low 9.5-13.5 [facility] Comment on above: Performed By: #### C BC #### [facility] [address] [address] [address] Karen Santos PLT 348 103/ul Normal 150-450 [facility] Comment on above: Performed By: #### C BC #### [facility] [address] [address] [address] Karen Santos RBC 4.33 106/ul Critically low 4.70-6.10 [facility] Comment on above: Performed By: #### C BC #### [facility] [address] [place] [address] Dr. Karen Santos WBC 10.7 103/ul Normal 4.0-11.0 [facility] Comment on above: Performed By: #### C BC #### [facility] [address] [place] [address] Dr. Karen Santos PROF 14(COMP METB)on 021 Albumin [Mass/Vol] 4.2 g/dL Normal 3.5-5.0 [facility] Comment on above: Performed By: #### C MP, HSTROPN, TSH #### [facility] [address] [place] [address] Dr. Karen Santos Albumin/Globulin [Mass ratio] 0.8 {ratio} Normal [facility] Comment on above: Performed By: #### C MP, HSTROPN, TSH #### [facility] [address] [address] [address] Karen Santos ALP [Catalytic activity/Vol] 124 U/L Normal 38-126 [facility] Comment on above: Performed By: #### C MP, HSTROPN, TSH #### [facility] [address] [place] [address] Dr. Karen Santos ALT [Catalytic activity/Vol] 24 U/L Normal 21-72 [facility] Comment on above: Performed By: #### C MP, HSTROPN, TSH #### [facility] [address] [address] [address] Karen Santos Anion gap [Moles/Vol] 13.9 mmol/L Normal Th e [facility] Comment on above: Performed By: #### C MP, HSTROPN, TSH #### [facility] [address] [place] [address] Dr. Karen Santos AST [Catalytic activity/Vol] 17 U/L Normal 17-[address] [facility] Comment on above: Performed By: #### C MP, HSTROPN, TSH #### [facility] [address] [place] [address] Dr. Karen Santos Bilirubin [Mass/Vol] 0.4 mg/dL Normal 0.2-1.[address] [facility] Comment on above: Performed By: #### C MP, HSTROPN, TSH #### [facility] [address] [place] [address] Dr. Karen Santos Calcium [Mass/Vol] 9.5 mg/dL Normal 8.4-10.2 [facility] Comment on above: Performed By: #### C MP, HSTROPN, TSH #### [facility] [address] [place] [address] Dr. Karen Santos Chloride [Moles/Vol] 101 mmol/L Normal 98-[address] [facility] Comment on above: Performed By: #### C MP, HSTROPN, TSH #### [facility] [address] [place] [address] Dr. Karen Santos CO2 [Moles/Vol] 26.0 mmol/L Normal 22.0-30.0 [facility] Comment on above: Performed By: #### C MP, HSTROPN, TSH #### [facility] [address] [place] [address] Dr. Karen Santos Creatinine [Mass/Vol] 2.35 mg/dL Critically high 0.66-1.25 [facility] Comment on above: Performed By: #### C MP, HSTROPN, TSH #### [facility] [address] [place] [address] Dr. Karen Santos EGFR-AF TONGAN 35 mL/min/1.73m2 Critically low >=60 [facility] Comment on above: Performed By: #### C MP, HSTROPN, TSH #### [facility] [address] [place] [address] Dr. Karen Santos EGFR-NON AF TONGAN 29 mL/min/1.73m2 Critically low >=60 [facility] Comment on above: Performed By: #### C MP, HSTROPN, TSH #### [facility] [address] [place] [address] Dr. Karen Santos Globulin (S) [Mass/Vol] 5.1 g/dL Normal [facility] Comment on above: Performed By: #### C MP, HSTROPN, TSH #### [facility] [address] [place] [address] Dr. Karen Santos Glucose [Mass/Vol] 105 mg/dL Normal 74-106 [facility] Comment on above: Performed By: #### C MP, HSTROPN, TSH #### [facility] [address] [place] [address] Dr. Karen Santos Potassium [Moles/Vol] 3.9 mmol/L Normal 3.4-5.0 [facility] Comment on above: Performed By: #### C MP, HSTROPN, TSH #### [facility] [address] [place] [address] Dr. Karen Santos Protein [Mass/Vol] 9.3 g/dL Critically high 6.1-8.2 [facility] Comment on above: Performed By: #### C MP, HSTROPN, TSH #### [facility] [address] [place] [address] Dr. Karen Santos Sodium [Moles/Vol] 137 mmol/L Normal 137-145 [facility] Comment on above: Performed By: #### C MP, HSTROPN, TSH #### [facility] [address] [place], [place] [id number] Dr. Karen Santos Urea nitrogen [Mass/Vol] 17.0 mg/dL Normal 9.0-20.0 [facility] Comment on above: Performed By: #### C MICHAEL HSTROPN, TSH #### [facility] [address] [address] [address] Karen Santos Urea nitrogen/Creatinine [Mass ratio] 7.2 mg/mg Normal [facility] Comment on above: Performed By: #### C MICHAEL HSTROPN, TSH #### [facility] [address] [address] [address] Karen Santos PROTIMEon 09-10-2021 INR Coag (PPP) [Relative time] 0.95 {INR} Normal [facility] Comment on above: Performed By: #### P T, PTT ####[facility] [address] [place], [place] [address]DrEva Santos INR GUIDELINES SEE BELOW Normal [facility] Comment on above: Result Comment: PALAK RED INR: 2.0 - 3.0 CONDITIONS NOT LISTED BELOW 2.5 - 3.5 FOR PROSTHETIC HEART VALVE REPLACEMENT 2.5 - 3.5 RECURRENT THROMBOSIS Performed By: #### P T, PTT ####[facility] [address] [address]. Karen Santos PT Coag (PPP) [Time] 10.3 s Normal 9.0-11.6 [facility] Comment on above: Performed By: #### P T, PTT ####[facility] [address] [address] Karen Santos PTTon 09-10-2021 aPTT Coag (Bld) [Time] 25.4 s Normal 22.3-36.2 [facility] Comment on above: Performed By: #### P T, PTT ####[facility] [address] [place], [place] [address]Dr. Karen Santos TROPONIN, HIGH SENSITIVITYon 09-10-2021 HSTROP 10.9 pg/mL Normal 4.0-42.2 [facility] Comment on above: Result Comment: CUT- OFF POINTS HAVE BEEN ESTABLISHED BASED ON THE FOURTH UNIVERSAL DEFINITIONS OF MYOCARDIAL INFARCTION. THE UPPER REFERENCE LIMIT (URL) OF TROPONIN, DEFINED THE 99TH PERCENTILE OF cTnI DISTRIBUTION IN A REFERENCE POPULATION, HAS BEEN CONFIRMED THE DECISION THRESHOLD FOR [place] DIAGNOSIS. Performed By: #### C MP, HSTROPN, TSH #### [facility] [address] [address] [address] Karen Santos TSHon 09-10-2021 TSH 1.298 uIU/mL Normal 0.470-4.680 [facility] Comment on above: Performed By: #### C MP, HSTROPN, TSH #### [facility] [address] [address] [address] Karen Santos TSH RANGE SEE BELOW Normal [facility] Comment on above: Result Comment: <0.3 4 UIU/ml HYPERTHYROID 0.34-5.60 UIU/ml EUTHYROID >5.60 UIU/ml HYPOTHYROID Performed By: #### C MICHAEL, HSTROPN, TSH #### [facility] [address] [address] [address] Karen Santos XR CHEST 1 Von 09-10-2021 XR CHEST 1 V EXAMINATION: XR CHES T 1 V, 09/10/2021 4:04 PM EST HISTORY: Essential hypertension COMPARISON: None. TECHNIQUE: Chest x-ray: One view. FINDINGS: SUPPORT APPARATUS/POST-SURGIC AL CHANGES: None. CARDIOMEDIASTINAL SILHOUETTE: Normal. AIRWAYS/LUNGS: Normal. PLEURAL SPACES: No pleural effusion or pneumothorax. BONES AND SOFT TISSUES: No acute abnormality. IMPRESSION: Normal chest radiograph. Electronically authenticated by: LUDMILA JOSEPH Date: 2021-09-10 17:42 Normal [facility] Operative Reporton Operative Report MR#: [id number] [facility] Pt. Name: Leander Massey Room #: BRYNN [id number] Discharge 07/23/2021 Date: Birthdate: 1970 OPERATIVE REPORT DATE OF SURGERY: 07/22/2021 SURGEON: Jenna Avila M.D. PREOPERATIVE DIAGNOSIS: Left carotid severe stenosis with history of transient ischemic attack. POSTOPERATIVE DIAGNOSIS: Left carotid severe stenosis with history of transient ischemic attack. PROCEDURE DONE: Carotid endarterectomy with patch angioplasty. ANESTHESIA: General anesthesia. COMPLICATIONS: No complication. 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 Evaluation revealed significant stenosis in the left carotid artery. The patient is presenting for endarterectomy. All possible complication explained to the patient. The patient had a history of acute renal failure that improved, discussed with him both stenting and surgery, but the choice was to proceed with surgery to avoid any contrast. PROCEDURE IN DETAIL: The patient was put in a supine position, given general anesthesia with intubation. Antibiotic was given. Time-out was performed. After that, a transverse incision was made in the left neck over the area of bifurcation of the carotid artery, which was identified by ultrasound. Dissection was done down to the platysma of the sternocleidomastoid muscle. Dissection anterior to the sternocleidomastoid muscle and muscle was done until identified the internal jugular vein, then the common facial vein which was very large vein. Dissection of the facial vein was done until isolated between 2 sutures. Then, the common facial vein was ligated, transected, and retracted. The both ends of the facial vein were occluded with medium clips. At this stage, it was realized there are multiple lymph nodes in the area and it was noted there was a mass in the lower end of the wound, which is the thyroid and it is a large mass. Dissection was done until remove 1 of the lymph nodes and sent for pathology, but no attempt was made to resect or remove the thyroid, because we did not have a consent about that. There was significant adhesions in the area, so the dissection was difficult, but finally identified the common carotid artery, internal and external carotid artery with the superior thyroidal artery. Of note here, the bifurcation was extremely high. The vagus nerve and hypoglossal nerve were identified and were kept out of harm's way. After that, dissection for the common carotid artery was done up to the internal and external carotid artery. It was a difficult dissection, but finally managed to have the distal part of the internal carotid artery and the external carotid arteries both were encircled with vessel loops. There were significant adhesions around the common carotid artery, which was dissected and encircled with umbilical tape. Heparin was given to the patient. ACT was checked. The clamps were applied to the internal and then external vein common carotid arteries. The blood flow to the brain was monitored through oxygen saturation and also back-bleeding was tested once arteriotomy was done. The arteriotomy was done in the common carotid artery, extended to the internal carotid artery. Once entered the lumen of the internal carotid artery, it was noticed the presence of hemorrhagic plaque with significant ulceration and there was what seems to be a small clot within the internal carotid artery and the stenosis was extremely severe. Because of this, the arteriotomy was extended more proximal above distal until identified the acceptable lumen. The endarterectomy was done removing the plaque, and using eversion technique to remove the plaque from the external carotid artery. Then, the internal carotid artery was clean from plaque and the edges were made smooth. The common carotid artery plaque was dissected and transected. Then, the plaque was removed. The irrigation of the wound was done. All remnants of the intima were removed. Of note here that the backbleeding was tested. When the lumen was opened, it was very good back-bleeding. After that, a bovine patch applied to the internal carotid artery and common carotid artery, sutured in position with 6-0 Prolene continuously. Before completing the anastomosis, back-bleeding from the internal and external carotid artery was achieved for the bleeding from the common carotid artery. Then, irrigation of the lumen was done and then the anastomosis was completed. Blood was allowed to flow to the external, then to the internal carotid artery. Total time for clamping was 32 minutes. After that, hemostasis was secured. Gel-Foam thrombin applied to the arteriotomy area. Then, after that, hemostasis secured again. Then, the sternocleidomastoid muscle was approximated to the fascia, followed by p (more content not included)... Normal [facility] BASIC METABOLIC PANELon 10-0 Calcium [Mass/Vol] 8.5 mg/dL Low 8.6-10.3 [facility] Comment on above: Order Comment: No: D o not add to previous draw Performed By: #### 4 1000, [id number], [id number] #### [facility] [address] [facility] [place] [address], [facility] Chloride [Moles/Vol] 112 mmol/L High 98-107 [facility] Comment on above: Order Comment: No: D o not add to previous draw Performed By: #### 4 1000, , [id number] #### [facility] [address] [place] [address], [place] CO2 [Moles/Vol] 17 mmol/L Low 21-31 [facility] Comment on above: Order Comment: No: D o not add to previous draw Performed By: #### 4 1000, , [id number] #### [facility] [address] [place] [address], [place] Creatinine [Mass/Vol] 1.99 mg/dL High 0.70-1.30 [facility] Comment on above: Order Comment: No: D o not add to previous draw Performed By: #### 4 1000, , [id number] #### [facility] [address] [place] [address], [facility] eGFR- 43 ml/min/1.73sq m Abnormal >60 [facility] Comment on above: Order Comment: No: D o not add to previous draw Performed By: #### 4 1000, , [id number] #### [facility] [address] [place] [id number], [facility] eGFR- non- 35 ml/min/1.73sq m Abnormal >60 [facility] Comment on above: Order Comment: No: D o not add to previous draw Performed By: #### 4 1000, , [id number] #### [facility] [address] [place] [address], [place] Glucose [Mass/Vol] 106 mg/dL High 70-100 [facility] Comment on above: Order Comment: No: D o not add to previous draw Performed By: #### 4 1000, , 71412 #### [facility] [address] [place] [address], [place] Potassium [Moles/Vol] 4.7 mmol/L Normal 3.5-5.1 [facility] Comment on above: Order Comment: No: D o not add to previous draw Performed By: #### 4 1000, 71775, 61139 #### [facility] [address] [place] [address], [facility] Sodium [Moles/Vol] 136 mmol/L Normal 136-145 [facility] Comment on above: Order Comment: No: D o not add to previous draw Performed By: #### 4 1000, 09330, 89869 #### [facility] [address] [place] [address], [facility] Urea nitrogen [Mass/Vol] 25 mg/dL Normal 7-25 [facility] Comment on above: Order Comment: No: D o not add to previous draw Performed By: #### 4 1000, 84070, 83503 #### [facility] [address] [place] [address], [facility] CBC COMPLETE BLOOD COUNTon Erythrocyte distribution width (RBC) [Ratio] 14.3 % Normal 11.5-15.0 [facility] Comment on above: Order Comment: No: D o not add to previous draw Performed By: #### 3 6528 #### [facility] [address] [place] [address], [place] Hematocrit (Bld) [Volume fraction] 35.0 % Low 39.0-50.0 [facility] Comment on above: Order Comment: No: D o not add to previous draw Performed By: #### 3 0739 #### [facility] [address] [place] [address], [place] Hemoglobin (Bld) [Mass/Vol] 11.4 g/dL Low 13.0-17.0 [facility] Comment on above: Order Comment: No: D o not add to previous draw Performed By: #### 3 9659 #### [facility] [address] [place] [address], [place] MCH (RBC) [Entitic mass] 31.1 pg Normal 27.0-33.0 [facility] Comment on above: Order Comment: No: D o not add to previous draw Performed By: #### 3 0739 #### [facility] [address] [facility]. [address] MCHC (RBC) [Mass/Vol] 32.6 g/dL Normal 32.0-35.0 [facility] Comment on above: Order Comment: No: D o not add to previous draw Performed By: #### 3 0739 #### [facility] [address] [place] [address], [facility] MCV (RBC) [Entitic vol] 95.6 fL Normal 82.0-98.0 [facility] Comment on above: Order Comment: No: D o not add to previous draw Performed By: #### 3 0739 #### [facility] [address] Nucleated RBC/100 WBC (Bld) [Ratio] 0 % Normal 0-0 [facility] Comment on above: Order Comment: No: D o not add to previous draw Performed By: #### 3 0739 #### [facility] [address] [facility] [place] [address], [facility] PLAT CNT 212 10*3/uL Normal 150-400 [facility] Comment on above: Order Comment: No: D o not add to previous draw Performed By: #### 3 0739 #### [facility] [address] [facility] [place] [address], [facility] RBC (Bld) [#/Vol] 3.66 10*6/uL Low 4.20-5.70 [facility] Comment on above: Order Comment: No: D o not add to previous draw Performed By: #### 3 0739 #### [facility] [address] [facility] [place] [address], [facility] WBC (Bld) [#/Vol] 11.78 10*3/uL High 4.00-10.60 [facility] Comment on above: Order Comment: No: D o not add to previous draw Performed By: #### 3 0739 #### [facility] [address] [place] [address], [facility] MAGNESIUM BLOODon 07-23-2021 Magnesium [Mass/Vol] 1.8 mg/dL Low 1.9-2.7 [facility] Comment on above: Performed By: #### 4 1000, 08556, 01846 #### [facility] [address] [place] [address], [facility] PHOSPHORUS BLOODon Phosphate [Mass/Vol] 3.5 mg/dL Normal 2.5-5.0 [facility] Comment on above: Performed By: #### 4 1000, 08369, 27645 #### [facility] [address] [place] [address], [facility] *MRSA/MSSA DNA NASALon 07-22 *MRSA/MSSA DNA NASAL Clinical Report: (D ) Specimen/Source: NASAL SWAB/NARES Collected: 07/22/2021 07:45 Status: Final Last Updated: 07/22/2021 11:30 MSSA DNA (Final) Negative MRSA DNA (Final) Negative Normal [facility] Comment on above: Performed By: #### 3 0739 #### [facility] [address] [place] [address], [facility] ACTIVATED CLOTTING TIMEon ACTIVATED CLOTTING TIME 207 sec High 82-152 [facility] Comment on above: Performed By: #### 3 0739 #### [facility] [address] [place] [address], [facility] ACTIVATED CLOTTING TIME 243 sec High 82-152 [facility] Comment on above: Performed By: #### 3 0739 #### [facility] [address] [place] [address], [facility] ACTIVATED CLOTTING TIME 98 sec Normal 82-152 [facility] Comment on above: Performed By: #### 3 0739 #### [facility] [address] [place] [address], [facility] ACTIVATED CLOTTING TIME 189 sec High 82-152 [facility] Comment on above: Performed By: #### 3 0739 #### [facility] [address] [place] [id number], [facility] BASIC METABOLIC PANELon 10-0 -2020 Calcium [Mass/Vol] 8.8 mg/dL Normal 8.6-10.3 [facility] Comment on above: Order Comment: No: D o not add to previous draw Nurse draw Performed By: #### 4 1000, 05626, 35854 #### [facility] [address] [place] [id number], [facility] Chloride [Moles/Vol] 111 mmol/L High 98-107 [facility] Comment on above: Order Comment: No: D o not add to previous draw Nurse draw Performed By: #### 4 1000, 27911, 37789 #### [facility] [address] [place] [address], [facility] CO2 [Moles/Vol] 18 mmol/L Low 21-31 [facility] Comment on above: Order Comment: No: D o not add to previous draw Nurse draw Performed By: #### 4 1000, 12248, 60619 #### [facility] [address] [place] [id number], [facility] Creatinine [Mass/Vol] 2.23 mg/dL High 0.70-1.30 [facility] Comment on above: Order Comment: No: D o not add to previous draw Nurse draw Performed By: #### 4 1000, 36216, 49665 #### [facility] [address] [place] [address], [facility] eGFR- 38 ml/min/1.73sq m Abnormal >60 [facility] Comment on above: Order Comment: No: D o not add to previous draw Nurse draw Performed By: #### 4 1000, 65757, 79662 #### [facility] [address] [place] [id number], [facility] eGFR- non- 31 ml/min/1.73sq m Abnormal >60 [facility] Comment on above: Order Comment: No: D o not add to previous draw Nurse draw Performed By: #### 4 1000, , 59428 #### [facility] [address] [place] [address], [facility] Glucose [Mass/Vol] 102 mg/dL High 70-100 [facility] Comment on above: Order Comment: No: D o not add to previous draw Nurse draw Performed By: #### 4 1000, , 19865 #### [facility] [address] [place] [id number], [facility] Potassium [Moles/Vol] 4.8 mmol/L Normal 3.5-5.1 [facility] Comment on above: Order Comment: No: D o not add to previous draw Nurse draw Performed By: #### 4 1000, , 97514 #### [facility] [address] [place] [id number], [facility] Sodium [Moles/Vol] 135 mmol/L Low 136-145 [facility] Comment on above: Order Comment: No: D o not add to previous draw Nurse draw Performed By: #### 4 1000, , 42391 #### [facility] [address] [place] [id number], [facility] Urea nitrogen [Mass/Vol] 28 mg/dL High 7-25 [facility] Comment on above: Order Comment: No: D o not add to previous draw Nurse draw Performed By: #### 4 1000, , 72237 #### [facility] [address] [place] [id number], [place] CBC COMPLETE BLOOD COUNTon Erythrocyte distribution width (RBC) [Ratio] 14.5 % Normal 11.5-15.0 [facility] Comment on above: Order Comment: No: D o not add to previous drawNurse draw Performed By: #### 3 0739 #### [facility] [address] [place] [address], [facility] Hematocrit (Bld) [Volume fraction] 38.1 % Low 39.0-50.0 [facility] Comment on above: Order Comment: No: D o not add to previous drawNurse draw Performed By: #### 3 0739 #### [facility] [address] [place] [address], [facility] Hemoglobin (Bld) [Mass/Vol] 12.9 g/dL Low 13.0-17.0 [facility] Comment on above: Order Comment: No: D o not add to previous drawNurse draw Performed By: #### 3 0739 #### [facility] [address] [place] [address], [facility] MCH (RBC) [Entitic mass] 31.2 pg Normal 27.0-33.0 [facility] Comment on above: Order Comment: No: D o not add to previous drawNurse draw Performed By: #### 3 0739 #### [facility] [address] [place] [address], [facility] MCHC (RBC) [Mass/Vol] 33.9 g/dL Normal 32.0-35.0 [facility] Comment on above: Order Comment: No: D o not add to previous drawNurse draw Performed By: #### 3 0739 #### [facility] [address] [place] [id number], [facility] MCV (RBC) [Entitic vol] 92.3 fL Normal 82.0-98.0 [facility] Comment on above: Order Comment: No: D o not add to previous drawNurse draw Performed By: #### 3 0739 #### [facility] [address] [place] [id number], [facility] Nucleated RBC/100 WBC (Bld) [Ratio] 0 % Normal 0-0 [facility] Comment on above: Order Comment: No: D o not add to previous drawNurse draw Performed By: #### 3 0739 #### [facility] [address] [place] [address], [facility] PLAT CNT 232 10*3/uL Normal 150-400 [facility] Comment on above: Order Comment: No: D o not add to previous drawNurse draw Performed By: #### 3 0739 #### [facility] [address] [place] [address], [facility] RBC (Bld) [#/Vol] 4.13 10*6/uL Low 4.20-5.70 [facility] Comment on above: Order Comment: No: D o not add to previous drawNurse draw Performed By: #### 3 0739 #### [facility] [address] [place] [address], [facility] WBC (Bld) [#/Vol] 17.03 10*3/uL High 4.00-10.60 [facility] Comment on above: Order Comment: No: D o not add to previous drawNurse draw Performed By: #### 3 0739 #### [facility] [address] [place] [id number], [facility] MAGNESIUM BLOODon 07-22-2021 Magnesium [Mass/Vol] 1.9 mg/dL Normal 1.9-2.7 [facility] Comment on above: Order Comment: No: D o not add to previous draw Nurse draw Performed By: #### 4 1000, 31890, 65752 #### [facility] [address] [place] [address], [facility] PHOSPHORUS BLOODon Phosphate [Mass/Vol] 2.8 mg/dL Normal 2.5-5.0 [facility] Comment on above: Order Comment: No: D o not add to previous draw Nurse draw Performed By: #### 4 1000, 08744, 30743 #### [facility] [address] [place] [address], [facility] POC GLUCOSE LABon 07-22-2021 Glucose [Mass/Vol] 103 mg/dL High 70-100 [facility] Comment on above: Performed By: #### 3 0739 #### [facility] [address] [place] [address], [place] Glucose [Mass/Vol] 98 mg/dL Normal 70-100 [facility] Comment on above: Performed By: #### 3 0739 #### [facility] [address] [place] [address], [place] TYPE AND SCREENon 07-22-2021 ABO INTERPRETATION O Normal [facility] Comment on above: Performed By: #### 3 0739 #### [facility] [address] [place] [address], [place] RH INTERPRETATION Positive Normal [facility] Comment on above: Performed By: #### 3 0739 #### [facility] [address] [place] [address], [facility] Office Visit (Vascular Surge ry)on 07-13-2021 Follow-up visit Diagnoses/Problems Assessed Acute stroke due to stenosis of left carotid artery (433.11) (I63.232) Patient Discussion/Summary By signing my name below, I, Maki Lenz, attest that this documentation has been prepared under the direction and in the presence of Dr. Pablo Serrano. All medical record entries made by the Scribe were at my direction and personally dictated by me. I have reviewed the chart and agree that the record accurately reflects my personal performance of the history, physical exam, discussion and plan. Provider Impressions 50 year old male with recent stroke secondary to ipsilateral left 75% carotid stenosis. Recommend left CEA. Reviewed with patient. Will arrange. Chief Complaint The patient presents to the office today for an initial evaluation. Recent stroke Adult Risk Screening Initial Fall Risk Screening: LEANDER has not fallen in the last 6 months. His fall did not result in injury. LEANDER does not have a fear of falling. He does not need assistance with sitting, standing or walking. Does not need assistance walking in his home. He does not need assistance in an unfamiliar setting. The patient is not using an assistive device. History of Present Illness 07/13/21: 50 year old male here for initial evaluation after left hemispheric stroke in June 2021. His symptoms included chest palpations, light headed, weakness in R arm and was unable to produce speech, these symptoms last about 3-4 minutes. No recurrence of symptoms since then. He smokes 1 pack/day. He had right visual field disturbance in both eyes, but has since resolved. In March, he had complete kidney failure. He was on dialysis and his kidney function came back to 40%. His blood pressure has been abnormal since leaving hospital, currently at 160/90. He takes aspirin 81mg, Atorvastatin and Plavix. He had carotid duplex and MRI brain and MRA neck. 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) HTN (hypertension) (401.9) (I10) Screening cholesterol level (V77.91) (Z13.220) Screening PSA (prostate specific antigen) (V76.44) (Z12.5) Segmental and somatic dysfunction of thoracic region (739.2) (M99.02) Strain of right trapezius muscle, initial encounter (840.8) (S46.811A) Stroke (434.91) (I63.9) Surgical History Problems History of Appendectomy History of Cataract surgery right eye Social History Problems Current every day smoker (305.1) (F17.200) 1 1/2 packs/daily Allergies Medication No Known Drug Allergies Recorded By: Juanita Zayas; 03/25/2019 1:47:28 PM Current Meds Medication NameInstruction amLODIPine Besylate 10 MG Oral Tablet Aspirin 81 MG TABS Atenolol 100 MG Oral Tablet Bisoprolol Fumarate 10 MG Oral TabletTake 1 tablet daily cloNIDine HCl - 0.1 MG Oral TabletTAKE 1 TABLET 3 TIMES DAILY. Gabapentin 400 MG TABSTake 1 tablet twice daily Levothyroxine Sodium 100 MCG Oral TabletTAKE 1 TABLET BY MOUTH EVERY DAY Lipitor 40 MG Oral TabletTAKE 1 TABLET DAILY DIRECTED. Lisinopril 10 MG Oral TabletTAKE 1 TABLET DAILY DIRECTED. Plavix 75 MG Oral TabletTAKE 1 TABLET BY MOUTH EVERY DAY Vitals Vital Signs Recorded: 13Jul2021 11:13AM Xnkuhrbgsdx56.4 F Heart Rate60 Lzltoifc956 Dbgkazcgz41 Height5 ft 11 in Rphrlg064 lb BMI Hfmpikhtug62.68 kg/m2 BSA Calculated2.2 Tobacco Usea) Yes Patient encouraged to stop using tobacco productsYes Fall Screeninga) No falls within the last year O2 Ibcfsvyalq38 Physical Exam Face symmetric EOMI Tongue midline, fluent speech No cervical bruit No aortic murmur Lungs clear No pronator drift 5/5 bilateral upper lower extremity motor strength Results/Data MRA from outside facility visualized and reviewed - 75% stenosis of left ICA Carotid duplex - documented in the EMR with greater than 75% stenosis of left ICA MRI with multifocal L hemispheric MCA distribution small strokes. Signatures Electronically signed by : Pablo Serrano MD; Jul 13 2021 4:48PM EST (Author) Normal [employer] Tobacco Screening.on 021 Fall risk assessment a) No falls within the last year [email or web address] Work Phone: Tobacco use status CP a) Yes [email or web address] Work Phone: Tobacco Screening. Yes [email or web address] Work Phone: CBC With Platelet and Differ entialon 09-12-2017 Basophils Auto #/vol (Bld) 0.1 10*3/uL Normal 0.0-0.2 [facility] Basophils/100 WBC Auto (Bld) 0.5 % Normal [facility] Eosinophils 0.2 10*3/uL Normal 0.0-0.7 [facility] Eosinophils/100 leukocytes 1.3 % Normal [facility] Erythrocyte distribution width Auto Ratio (RBC) 13.0 % Normal 11.5-14.5 [facility] Erythrocytes (RBC) 5.29 10*6/uL Normal 4.70-6.10 [facility] Hematocrit (HCT) 49.9 % Normal 42.0-52.0 [facility] Hemoglobin mass conc (Bld) 16.5 g/dL Normal 14.0-18.0 [facility] Lymphocytes 3.4 10*3/uL Normal 1.0-4.8 [facility] Lymphocytes/100 leukocytes 28.7 % Normal [facility] MCH 31.1 pg Normal 27.0-31.3 [facility] MCHC mass conc (RBC) 33.0 % Normal 33.0-37.0 [facility] MCV 94.4 fL Normal 80.0-100.0 [facility] Monocytes 0.9 10*3/uL Critically high 0.2-0.8 [facility] Monocytes/100 leukocytes 7.3 % Normal [facility] Neutrophils 7.5 10*3/uL Critically high 1.4-6.5 [facility] Neutrophils/100 leukocytes 62.2 % Normal [facility] Platelets 326 10*3/uL Normal 130-400 [facility] WBC (Leukocytes) 12.0 10*3/uL Critically high 4.8-10.8 [facility] Comprehensive Metabolic Pane fletcher 09-12-2017 Alanine aminotransferase (ALT) 21 U/L Normal 0-41 [facility] Albumin 4.5 g/dL Normal 3.9-4.9 [facility] Alkaline phosphatase (ALP) 82 U/L Normal 35-104 [facility] Anion gap 12 mmol/L Normal 7-13 [facility] Aspartate aminotransferase (AST) 14 U/L Normal 0-40 [facility] Bilirubin (total) 0.3 mg/dL Normal 0.0-1.2 [facility] Calcium 9.8 mg/dL Normal 8.6-10.2 [facility] Chloride 99 mmol/L Normal 98-107 [facility] CO2 26 mmol/L Normal 22-29 [facility] Creatinine 0.97 mg/dL Normal 0.70-1.20 [facility] eGFR (black) mL/min/{1.73_m2} Normal >60 [facility] Comment on above: Result Comment: >60 mL/min/1.73m2 EGFR, calc. for ages 18 and older using theMDRD formula (not corrected for weight), is valid for stablerenal function. eGFR (MDRD) mL/min/{1.73_m2} Normal >60 [facility] Comment on above: Result Comment: >60 mL/min/1.73m2 EGFR, calc. for ages 18 and older using theMDRD formula (not corrected for weight), is valid for stablerenal function. Globulin 3.0 g/dL Normal 2.3-3.5 [facility] Glucose mass conc 91 mg/dL Normal 74-109 [facility] Potassium molar conc 4.3 mmol/L Normal 3.5-5.1 [facility] Protein 7.5 g/dL Normal 6.4-8.1 [facility] Sodium 137 mmol/L Normal 132-144 [facility] Urea nitrogen 11 mg/dL Normal 6-20 [facility] TSH w/out Reflexon Thyroid stimulating hormone (TSH) 8.830 uIU/mL Critically high 0.270-4.20 [facility] Vital Signs Date Time Vital Sign Value Performing Clinician Facility 01-09-2024 12:00-0400 Body temperature 98 [degF] [facility] 01-09-2024 12:00-0400 Diastolic blood pressure 79 mm[Hg] [facility] 01-09-2024 12:00-0400 Heart rate 72 /min [facility] 01-09-2024 12:00-0400 Respiratory rate 22 /min [facility] 01-09-2024 12:00-0400 SaO2% (BldA) [Mass fraction] 100 % [facility] 01-09-2024 12:00-0400 Systolic blood pressure 159 mm[Hg] [facility] 01-09-2024 10:00-0400 Inhaled oxygen flow rate 2 L/min [facility] 01-09-2024 05:31-0400 Body weight 91.6 kg [facility] 01-09-2024 05:19-0400 Inhaled oxygen concentration 30 % [facility] 01-08-2024 20:52-0400 Body height 180.34 cm [facility] 11-14-2023 14:00-0500 Body height 180.34 cm [facility] Other [facility] 11-14-2023 14:00-0500 Body mass index (BMI) [Ratio] 27.89 kg/m2 [facility] Other [employer] [facility] Other 11-14-2023 14:00-0500 Body temperature 98.4 [degF] [facility] Other [employer] [facility] Other 11-14-2023 14:00-0500 Body weight 90.72 kg [facility] Other [employer] [facility] Other 11-14-2023 14:00-0500 Body weight 90.71 kg [facility] 11-14-2023 14:00-0500 Diastolic blood pressure 67 mm[Hg] [facility] Other [facility] 11-14-2023 14:00-0500 Systolic blood pressure 123 mm[Hg] [facility] Other [facility] 06-11-2023 12:22-0400 Body height 180.34 cm [facility] 06-11-2023 12:22-0400 Body weight 90.71 kg [facility] 06-11-2023 12:22-0400 Diastolic blood pressure 80 mm[Hg] [facility] 06-11-2023 12:22-0400 Heart rate 97 /min [facility] 06-11-2023 12:22-0400 Respiratory rate 16 /min [facility] 06-11-2023 12:22-0400 SaO2% (BldA) [Mass fraction] 96 % [facility] 06-11-2023 12:22-0400 Systolic blood pressure 148 mm[Hg] [facility] 05-22-2023 16:23-0400 Body temperature 98 [degF] [facility] 05-22-2023 16:23-0400 Diastolic blood pressure 79 mm[Hg] [facility] 05-22-2023 16:23-0400 Heart rate 92 /min [facility] 05-22-2023 16:23-0400 Respiratory rate 18 /min [facility] 05-22-2023 16:23-0400 SaO2% (BldA) [Mass fraction] 95 % [facility] 05-22-2023 16:23-0400 Systolic blood pressure 151 mm[Hg] [facility] 05-22-2023 04:00-0400 Inhaled oxygen flow rate 2 L/min [facility] 05-22-2023 02:04-0400 Body height 180.34 cm [facility] 05-22-2023 02:04-0400 Body weight 97.2 kg [facility] 05-15-2023 17:30-0400 Body height 180.34 cm Donya Mccann Other [employer] Other 05-15-2023 17:30-0400 Body mass index (BMI) [Ratio] 29.7 kg/m2 Donya Mccann Other [employer] Other 05-15-2023 17:30-0400 Body temperature 99.3 [degF] Donya Siobhan Other [employer] Other 05-15-2023 17:30-0400 Body weight 96.62 kg Donya Siobhan Other [employer] Other 05-15-2023 17:30-0400 Diastolic blood pressure 75 mm[Hg] Donya Siobhan Other [employer] Other 05-15-2023 17:30-0400 Respiratory rate 18 /min Donya Siobhan Other [employer] Other 05-15-2023 17:30-0400 SaO2% (BldA) [Mass fraction] 99 % Donya Siobhan Other [employer] Other 05-15-2023 17:30-0400 Systolic blood pressure 155 mm[Hg] Donyawaqar Mccann Other [employer] Other 11-30-2022 11:30-0500 Body height 180.34 cm Shantell Zavalaault Other [employer] Other 11-30-2022 11:30-0500 Body mass index (BMI) [Ratio] 29.98 kg/m2 Shantell Sea Other [employer] Other 11-30-2022 11:30-0500 Body temperature 99.1 [degF] Shantell Sea Other [employer] Other 11-30-2022 11:30-0500 Body weight 97.52 kg Shantell Sea Other [employer] Other 11-30-2022 11:30-0500 Diastolic blood pressure 68 mm[Hg] Shantell Osei Other [employer] Other 11-30-2022 11:30-0500 Respiratory rate 18 /min Shantell Osei Other [employer] Other 11-30-2022 11:30-0500 SaO2% (BldA) [Mass fraction] 95 % Shantell Osei Other [employer] Other 11-30-2022 11:30-0500 Systolic blood pressure 133 mm[Hg] Shantell Osei Other [employer] Other 09-27-2022 11:00-0500 Body height 180.34 cm Patrice Levine Other [employer] Other 09-27-2022 11:00-0500 Body mass index (BMI) [Ratio] 28.59 kg/m2 Patrice Levine Other [employer] Other 09-27-2022 11:00-0500 Body temperature 98.1 [degF] Patrice Levine Other [employer] Other 09-27-2022 11:00-0500 Body weight 92.99 kg Patrice Levine Other [employer] Other 09-27-2022 11:00-0500 Diastolic blood pressure 72 mm[Hg] Patrice Levine Other [employer] Other 09-27-2022 11:00-0500 SaO2% (BldA) [Mass fraction] 96 % Partice Levine Other [employer] Other 09-27-2022 11:00-0500 Systolic blood pressure 142 mm[Hg] Patrice Levine Other [employer] Other 09-13-2022 10:00-0500 Body height 180.34 cm Raissa Gillemilysuzan Other [employer] Other 09-13-2022 10:00-0500 Body mass index (BMI) [Ratio] 28.59 kg/m2 Raissa Gilllenny Other [employer] Other 09-13-2022 10:00-0500 Body temperature 97.6 [degF] Raissa Gilllenny Other [employer] Other 09-13-2022 10:00-0500 Body weight 92.99 kg Raissa Oh Other [employer] Other 09-13-2022 10:00-0500 Diastolic blood pressure 68 mm[Hg] Raissa Gilllenny Other [employer] Other 09-13-2022 10:00-0500 SaO2% (BldA) [Mass fraction] 94 % Raissa Gilllenny Other [employer] Other 09-13-2022 10:00-0500 Systolic blood pressure 120 mm[Hg] Raissacurtis Oh Other [employer] Other 08-24-2022 10:30-0500 Diastolic blood pressure 60 mm[Hg] BRICK POINTER-C Shantell Osei Work Phone: [facility] 08-24-2022 10:30-0500 Heart rate 67 /min BRICK POINTER-C Shantell Sea Work Phone: [facility] 08-24-2022 10:30-0500 Respiratory rate 16 /min BRICK POINTER-C Shantell Sea Work Phone: [facility] 08-24-2022 10:30-0500 SaO2% (BldA) [Mass fraction] 94 % BRICK POINTER-C Shantell Sea Work Phone: [facility] 08-24-2022 10:30-0500 Systolic blood pressure 101 mm[Hg] BRICK POINTER-C Shantell Sea Work Phone: [facility] 08-24-2022 10:15-0500 Inhaled oxygen flow rate 4 L/min BRICK POINTER-C Shantell Osei Work Phone: [facility] 08-24-2022 07:32-0500 Body height 180.34 cm BRICK POINTER-C Shantell Osei Work Phone: [facility] 08-24-2022 07:32-0500 Body mass index (BMI) [Ratio] 29.2 kg/m2 BRICK POINTER-C Shantell Osei Work Phone: [facility] 08-24-2022 07:32-0500 Body weight 95.25 kg BRICK POINTER-C Shantell Osei Work Phone: [facility] 08-24-2022 06:57-0500 Body temperature 98.3 [degF] BRICK POINTER-C Shantell Osei Work Phone: [facility] 08-01-2022 10:30-0400 Body height 180.34 cm Gerber Short Other [employer] Other 08-01-2022 10:30-0400 Body mass index (BMI) [Ratio] 28.59 kg/m2 Gerber Short Other [employer] Other 08-01-2022 10:30-0400 Body temperature 98.2 [degF] Gerber Short Other [employer] Other 08-01-2022 10:30-0400 Body weight 92.99 kg Gerber Ruizrer Other [employer] Other 08-01-2022 10:30-0400 Diastolic blood pressure 62 mm[Hg] Gerber Ruizrer Other [employer] Other 08-01-2022 10:30-0400 SaO2% (BldA) [Mass fraction] 97 % Gerber Ruizrer Other [employer] Other 08-01-2022 10:30-0400 Systolic blood pressure 122 mm[Hg] Gerber Ruizrer Other [employer] Other 07-11-2022 14:25-0400 Body height 180.34 cm BRICK POINTER-C Shantell Zavalaault Work Phone: [facility] 07-11-2022 14:25-0400 Body mass index (BMI) [Ratio] 28.5 kg/m2 BRICK POINTER-C Shantell Sea Work Phone: [facility] 07-11-2022 14:25-0400 Body weight 92.98 kg BRICK POINTER-C Shantell Sea Work Phone: [facility] 07-11-2022 10:14-0400 Diastolic blood pressure 87 mm[Hg] BRICK POINTER-C Shantell Sea Work Phone: [facility] 07-11-2022 10:14-0400 Heart rate 82 /min BRICK POINTER-C Shantell Sea Work Phone: [facility] 07-11-2022 10:14-0400 Respiratory rate 14 /min BRICK POINTER-C Shantell Sea Work Phone: [facility] 07-11-2022 10:14-0400 SaO2% (BldA) [Mass fraction] 91 % BRICK POINTER-C Shantell Sea Work Phone: [facility] 07-11-2022 10:14-0400 Systolic blood pressure 152 mm[Hg] BRICK POINTER-C Shantell Sea Work Phone: [facility] 07-11-2022 08:08-0400 Inhaled oxygen flow rate 2 L/min BRICK POINTER-C Sahntell Sea Work Phone: [facility] 07-11-2022 06:10-0400 Body height 180.34 cm BRICK POINTER-C Shantell Sea Work Phone: [facility] 07-11-2022 06:10-0400 Body temperature 98.7 [degF] BRICK POINTER-C Shantell Osei Work Phone: [facility] 07-11-2022 06:10-0400 Body weight 92.98 kg BRICK POINTER-C Shantell Osei Work Phone: [facility] 06-29-2022 10:30-0400 Body height 180.34 cm Patrice Levine Other [employer] Other 06-29-2022 10:30-0400 Body mass index (BMI) [Ratio] 28.59 kg/m2 Patrice Levine Other [employer] Other 06-29-2022 10:30-0400 Body temperature 97 [degF] Patrice Levine Other [employer] Other 06-29-2022 10:30-0400 Body weight 92.99 kg Patrice Levine Other [employer] Other 06-29-2022 10:30-0400 Diastolic blood pressure 68 mm[Hg] Patrice Reyescasper Other [employer] Other 06-29-2022 10:30-0400 SaO2% (BldA) [Mass fraction] 99 % Patrice Levine Other [employer] Other 06-29-2022 10:30-0400 Systolic blood pressure 118 mm[Hg] Patrice Reyescasper Other [employer] Other 06-07-2022 15:50-0400 Body height 180.34 cm Monica Vaughan Other [employer] Other 06-07-2022 15:50-0400 Body mass index (BMI) [Ratio] 28.59 kg/m2 Monica Vaughan Other [employer] Other 06-07-2022 15:50-0400 Body temperature 97.5 [degF] Monica Vaughan Other [employer] Other 06-07-2022 15:50-0400 Body weight 92.99 kg Monica Vaguhan Other [employer] Other 06-07-2022 15:50-0400 Diastolic blood pressure 43 mm[Hg] Monica Vaughan Other [employer] Other 06-07-2022 15:50-0400 Respiratory rate 18 /min Monica Vaughan Other [employer] Other 06-07-2022 15:50-0400 SaO2% (BldA) [Mass fraction] 97 % Monica Vaughan Other [employer] Other 06-07-2022 15:50-0400 Systolic blood pressure 90 mm[Hg] Monica Vaughan Other [employer] Other 03-09-2022 11:00-0400 Body height 180.34 cm Patrice Levine Other [employer] Other 03-09-2022 11:00-0400 Body mass index (BMI) [Ratio] 29.56 kg/m2 Patrice Levine Other [employer] Other 03-09-2022 11:00-0400 Body weight 96.16 kg Patrice Levine Other [employer] Other 03-09-2022 11:00-0400 Diastolic blood pressure 76 mm[Hg] Patrice Levine Other [employer] Other 03-09-2022 11:00-0400 Respiratory rate 18 /min Patrice Levine Other [employer] Other 03-09-2022 11:00-0400 SaO2% (BldA) [Mass fraction] 95 % Patrice Levine Other [employer] Other 03-09-2022 11:00-0400 Systolic blood pressure 138 mm[Hg] Patrice Levine Other [employer] Other 02-23-2022 14:30-0400 Body height 180.34 cm Shantell Osei Other [employer] Other 02-23-2022 14:30-0400 Body mass index (BMI) [Ratio] 29.56 kg/m2 Shantell Osei Other [employer] Other 02-23-2022 14:30-0400 Body temperature 98.8 [degF] Shantell Osei Other [employer] Other 02-23-2022 14:30-0400 Body weight 96.16 kg Shantell Osei Other [employer] Other 02-23-2022 14:30-0400 Diastolic blood pressure 92 mm[Hg] Shantell Osei Other [employer] Other 02-23-2022 14:30-0400 Respiratory rate 18 /min Shantell Osei Other [employer] Other 02-23-2022 14:30-0400 SaO2% (BldA) [Mass fraction] 98 % Shantell Osei Other [employer] Other 02-23-2022 14:30-0400 Systolic blood pressure 164 mm[Hg] Shantell Osei Other [employer] Other 02-07-2022 17:40-0400 Body height 180.34 cm [employer] Other [employer] Other 02-07-2022 17:40-0400 Body mass index (BMI) [Ratio] 30.07 kg/m2 [employer] Other [employer] Other 02-07-2022 17:40-0400 Body temperature 97.6 [degF] [employer] Other [employer] Other 02-07-2022 17:40-0400 Body weight 97.8 kg Iván Govea Other [employer] Other 02-07-2022 17:40-0400 Diastolic blood pressure 91 mm[Hg] Iván Govea Other [employer] Other 02-07-2022 17:40-0400 Respiratory rate 18 /min Iván Govea Other [employer] Other 02-07-2022 17:40-0400 SaO2% (BldA) [Mass fraction] 98 % Iván Govea Other [employer] Other 02-07-2022 17:40-0400 Systolic blood pressure 158 mm[Hg] Iván Govea Other [employer] Other 01-04-2022 10:30-0400 Body height 180.34 cm Patrice Levine Other [employer] Other 01-04-2022 10:30-0400 Body mass index (BMI) [Ratio] 31.24 kg/m2 Patrice Levine Other [employer] Other 01-04-2022 10:30-0400 Body temperature 98.3 [degF] Patrice Levine Other [employer] Other 01-04-2022 10:30-0400 Body weight 101.61 kg Patrice Levine Other [employer] Other 01-04-2022 10:30-0400 Diastolic blood pressure 88 mm[Hg] Patrice Levine Other [employer] Other 01-04-2022 10:30-0400 SaO2% (BldA) [Mass fraction] 96 % Patrice Julianna Other [employer] Other 01-04-2022 10:30-0400 Systolic blood pressure 198 mm[Hg] Patrice Julianna Other [employer] Other 12-15-2021 16:00-0500 Body height 180.34 cm Junior Maria Esther Other [employer] Other 12-15-2021 16:00-0500 Body mass index (BMI) [Ratio] 31.24 kg/m2 Junior Maria Esther Other [employer] Other 12-15-2021 16:00-0500 Body weight 101.61 kg Junior Maria Esther Other [employer] Other 12-15-2021 16:00-0500 Diastolic blood pressure 80 mm[Hg] Junior Maria Esther Other [employer] Other 12-15-2021 16:00-0500 Respiratory rate 18 /min Junior Maria Esther Other [employer] Other 12-15-2021 16:00-0500 SaO2% (BldA) [Mass fraction] 97 % Junior Maria Esther Other [employer] Other 12-15-2021 16:00-0500 Systolic blood pressure 142 mm[Hg] Junior Maria Esther Other [employer] Other 09-15-2021 11:20-0500 Body height 180.34 cm Junior Maria Esther Other [employer] Other 09-15-2021 11:20-0500 Body mass index (BMI) [Ratio] 30.79 kg/m2 Junior Maria Esther Other [employer] Other 09-15-2021 11:20-0500 Body temperature 98 [degF] Junior Maria Esther Other [employer] Other 09-15-2021 11:20-0500 Body weight 100.15 kg Junior Maria Esther Other [employer] Other 09-15-2021 11:20-0500 Diastolic blood pressure 94 mm[Hg] Junior Maria Esther Other [employer] Other 09-15-2021 11:20-0500 Respiratory rate 18 /min Junior Maria Esther Other [employer] Other 09-15-2021 11:20-0500 SaO2% (BldA) [Mass fraction] 97 % Junior Maria Esther Other [employer] Other 09-15-2021 11:20-0500 Systolic blood pressure 200 mm[Hg] Junior Maria Esther Other [employer] Other 08-18-2021 11:00-0400 Body height 180.34 cm Junior Maria Esther Other [employer] Other 08-18-2021 11:00-0400 Body mass index (BMI) [Ratio] 30.51 kg/m2 Junior Maria Esther Other [employer] Other 08-18-2021 11:00-0400 Body temperature 97.4 [degF] Junior Maria Esther Other [employer] Other 08-18-2021 11:00-0400 Body weight 99.25 kg Junior Maria Esther Other [employer] Other 08-18-2021 11:00-0400 Diastolic blood pressure 80 mm[Hg] Junior Maria Esther Other [employer] Other 08-18-2021 11:00-0400 Respiratory rate 18 /min Junior Maria Esther Other [employer] Other 08-18-2021 11:00-0400 SaO2% (BldA) [Mass fraction] 97 % Junior Maria Esther Other [employer] Other 08-18-2021 11:00-0400 Systolic blood pressure 139 mm[Hg] Junior Maria Esther Other [employer] Other 07-28-2021 12:00-0400 Body height 180.34 cm Shantell Sea Other [employer] Other 07-28-2021 12:00-0400 Body mass index (BMI) [Ratio] 30.4 kg/m2 Shantell Osei Other [employer] Other 07-28-2021 12:00-0400 Body temperature 97.8 [degF] Shantell Osei Other [employer] Other 07-28-2021 12:00-0400 Body weight 98.88 kg Shantell Osei Other [employer] Other 07-28-2021 12:00-0400 Diastolic blood pressure 67 mm[Hg] Shantell Osei Other [employer] Other 07-28-2021 12:00-0400 Respiratory rate 18 /min Shanetll Osei Other [employer] Other 07-28-2021 12:00-0400 SaO2% (BldA) [Mass fraction] 99 % Shantell Osei Other [employer] Other 07-28-2021 12:00-0400 Systolic blood pressure 133 mm[Hg] Shantell Osei Other [employer] Other 07-21-2021 15:20-0400 Body height 180.34 cm Junior Maria Esther Other [employer] Other 07-21-2021 15:20-0400 Body mass index (BMI) [Ratio] 30.99 kg/m2 Junior Maria Esther Other [employer] Other 07-21-2021 15:20-0400 Body temperature 97.3 [degF] Junior Maria Esther Other [employer] Other 07-21-2021 15:20-0400 Body weight 100.79 kg Junior Maria Esther Other [employer] Other 07-21-2021 15:20-0400 Diastolic blood pressure 82 mm[Hg] Junior Maria Esther Other [employer] Other 07-21-2021 15:20-0400 Respiratory rate 18 /min Junior Maria Esther Other [employer] Other 07-21-2021 15:20-0400 SaO2% (BldA) [Mass fraction] 97 % Junior Maria Esther Other [employer] Other 07-21-2021 15:20-0400 Systolic blood pressure 172 mm[Hg] Junior Maria Esther Other [employer] Other 07-13-2021 11:13-0400 Body height 180.34 cm Ace Marr Work Phone: [facility]Xzzmytqiio-Qguujk [address] Work Phone: 07-13-2021 11:13-0400 Body mass index (BMI) [Ratio] 30.68 kg/m2 Ace Marr Work Phone: RA-Rwabpicypg-Qdskmn [address] Work Phone: 07-13-2021 11:13-0400 Body surface area Derived from formula 2.2 m2 Ace Marr Work Phone: BP-Ohnmsytyfv-N[address]aka [address] Work Phone: 07-13-2021 11:13-0400 Body temperature 97.4 [degF] Ace Marr Work Phone: KB-Ybdywnhyzc-Kyzini [address] Work Phone: 07-13-2021 11:13-0400 Body weight 99.79 kg Ace Marr Work Phone: IY-Bidatwildg-Bkzdvo [address] Work Phone: 07-13-2021 11:13-0400 Diastolic blood pressure 90 mm[Hg] Ace Marr Work Phone: BL-Jwlyafnort-Tcadii [address] Work Phone: 07-13-2021 11:13-0400 Heart rate 60 /min Ace Marr Work Phone: HC-Fowgceqxnm-Urovsx [address] Work Phone: 07-13-2021 11:13-0400 SaO2% (BldA) [Mass fraction] 97 % Ace Marr Work Phone: LQ-Yigihhhuhj-Azdjfl [address] Work Phone: 07-13-2021 11:13-0400 Systolic blood pressure 160 mm[Hg] cAe Marr Work Phone: VE-Szqtzqoaqv-Cfpynp [address] Work Phone: Encounters Encounter Date Encounter Type Care Provider Facility Start: 03-20-2024 End: [facility] Start: 03-12-2024 ambulatory SHANTELL REYNOSO [facility] Start: 03-12-2024 End: 03-12-2024 ambulatory NATHANIEL DE SOUZA [facility] Start: 02-21-2024 End: 02-21-2024 ambulatory Junior Maria Esther Facility:[facility] Start: 02-21-2024 End: 02-21-2024 ambulatory BRICK POINTER-BC Shantell Sea Work Phone: [facility] Work Phone: Start: 02-21-2024 End: 02-21-2024 Patient encounter procedure BRICK POINTER-BC Shantell Sea Work Phone: [facility]-Dialysis Work Phone: Start: 02-20-2024 End: 02-20-2024 ambulatory RASHMI PADMINI [facility] Start: 02-07-2024 End: 02-07-2024 ambulatory BRICK POINTER-BC Shantell Sea Work Phone: [facility] Work Phone: Start: 02-07-2024 End: 02-07-2024 Patient encounter procedure BRICK POINTER-BC Shantell Sea Work Phone: [facility] [place] Work Phone: Start: 02-06-2024 [facility] Start: 02-06-2024 End: 02-06-2024 ambulatory [facility] Start: 01-30-2024 End: 01-30-2024 ambulatory [facility] Start: 01-09-2024 End: 01-09-2024 Non-patient / Non-visit [facility]ICK POINTER[facility] Work Phone: Start: 01-08-2024 End: 01-09-2024 Non-patient / Non-visit BRICK POINTER-C Shantell Zavalaault [facility] Work Phone: Start: 01-08-2024 End: 01-09-2024 Evaluation and management of inpatient Shantell Osei Facility:[facility] Start: 01-08-2024 End: 01-09-2024 Evaluation and management of inpatient BRICK POINTER-C Shantell Osei [facility] Work Phone: Start: 01-06-2024 Non-patient / Non-visit BRICK POINTER-BC Shantell Osei [facility] Phone[facility] Work Phone: Start: 01-04-2024 ambulatory KWABENA Townsend [facility] Start: 12-28-2023 End: 12-28-2023 ambulatory [facility] Start: 12-21-2023 End: 12-21-2023 ambulatory [facility] Start: 12-21-2023 End: 12-21-2023 ambulatory [facility] Start: 12-19-2023 ambulatory SHANTELL EDGARDO [facility] Start: 12-19-2023 [facility]: [facility] Start: 12-14-2023 End: 12-14-2023 Evaluation and management of inpatient JANIE MARTINEZ [facility] Start: 12-14-2023 [facility]: 12-14-[facility]23 [facility] 12-13-[facility]23 [facility] Start: 12-13-2023 Encounter for preprocedural cardiovascular examination MADAN MENCHACA [facility] Start: 12-13-2023 Evaluation and management of inpatient [facility] Start: 12-13-2023 End: 12-13-2023 ambulatory LUANNE NIEVES [facility] Start: 12-13-2023 ambulatory [facility] Start: 12-13-2023 End: 12-14-2023 Encounter for preprocedural cardiovascular examination SHANTELL REYNOSO [facility] Start: 12-13-2023 End: 12-14-2023 Evaluation and management of inpatient SHANTELL EDGARDO [facility] Start: 12-11-2023 Non-patient / Non-visit BRICK POINTER-C Shantell Osei [facility] Work Phone: Start: 12-03-2023 Chart abstracting Perez lund DPM Work Phone: [facility] Start: 11-30-2023 ambulatory [facility] Start: 11-30-2023 End: 11-30-2023 ambulatory [facility] Start: 11-14-2023 End: 11-14-2023 ambulatory Live Nguyen Other [employer] Other Start: 11-14-2023 Office outpatient ne w 45 minutes [facility] Start: 11-14-2023 End: 11-14-2023 Patient encounter procedure BRICK POINTER-C Shantell Osei [facility]- Start: 11-10-2023 End: 11-10-2023 ambulatory PHYSICIAN NO FAMILY Facility:[facility] Start: 11-10-2023 End: 11-10-2023 ambulatory BRICK POINTER-C Shantell [facility] Work Phone: Start: 11-10-2023 End: 11-10-2023 Patient encounter procedure [facility]ICK POINTER[facility]C [facility] Work Phone: Start: 11-03-2023 End: 11-03-2023 ambulatory Junior Maria Esther Facility:[facility] Start: 11-03-2023 End: 11-03-2023 Patient encounter procedure BRICK POINTER-C Shantell Osei [facility] Work Phone: Start: 10-11-2023 End: 10-11-2023 ambulatory Junior Maria Esther Facility:[facility] Start: 10-11-2023 End: 10-11-2023 ambulatory BRICK POINTER-C Shantell [facility] Work Phone: Start: 10-11-2023 End: 10-11-2023 Patient encounter procedure BRICK POINTER-C Shantell Osei [facility] Work Phone: Start: 10-10-2023 End: 10-11-2023 ambulatory SHANTELL SEA Facility[facility] Start: 09-10-2023 End: 09-10-2023 ambulatory JENNA AVILA [facility] Start: 08-20-2023 End: 08-21-2023 ambulatory SHANTELL SEA Facility[facility] Start: 07-20-2023 End: 07-20-2023 ambulatory JANEY WARREN [facility] Start: 07-11-2023 ambulatory KWABENA MONTAÑO [facility] Start: 07-04-2023 End: 07-04-2023 ambulatory KWABENA MONTAÑO [facility] Start: 07-04-2023 End: 07-04-2023 ambulatory KWABENA MONTAÑO [facility] Start: 06-27-2023 ambulatory KWABENA MONTAÑO [facility] Start: 06-23-2023 End: 06-23-2023 Evaluation and management of inpatient SHANTELL [facility] Start: 06-21-2023 End: 06-21-2023 Evaluation and management of inpatient [facility] Start: 06-20-2023 Evaluation and management of inpatient [facility] Start: 06-20-2023 End: 06-24-2023 Encounter for other preprocedural examination [facility] Start: 06-20-2023 End: 06-24-2023 Evaluation and management of inpatient [facility] Start: 06-11-2023 End: 06-11-2023 Departed Referred BRICK POINTER-C Shantell [facility]-Interventional Radiology Work Phone: Start: 06-11-2023 End: 06-11-2023 Admission to same day surgery center BRICK POINTER-C Shantell [facility]-Inter[facility] Radiology Work Phone: Start: 06-11-2023 End: 06-11-2023 ambulatory BRICK POINTER-C Shantell [facility] Work Phone: Start: 05-31-2023 Encounter for other preprocedural examination [facility] Start: 05-25-2023 ambulatory [facility] Start: 05-25-2023 End: 05-25-2023 ambulatory [facility]ARREN [facility] [facility] Start: 05-22-2023 End: 05-22-2023 Evaluation and management of inpatient Shantell Osei Facility:[facility] Start: 05-22-2023 End: 05-22-2023 Evaluation and management of inpatient BRICK POINTER-C Shantell Osei [facility] Work Phone: Start: 05-15-2023 End: 05-15-2023 ambulatory Donya Mccann Other [employer] Other Start: 05-15-2023 Office outpatient vi sit 15 minutes Donya Mccann [facility] Start: 05-15-2023 Telephone encounter Gerber Short [facility] Start: 04-25-2023 End: 04-26-2023 ambulatory SHANTELL SEA Facility:[facility] Start: 03-01-2023 End: 03-03-2023 Evaluation and management of inpatient Annabella José Miguelanamikacaden Facility:[facility] Start: 02-28-2023 End: 02-28-2023 ambulatory Shantell Sea Facility:[facility] Start: 01-08-2023 End: 01-08-2023 ambulatory Imad Asaad Other [employer] Other Start: 01-08-2023 Telephone encounter Imad Asaad [facility] Start: 12-11-2022 End: 12-11-2022 ambulatory Imad Asaad Other [employer] Other Start: 12-11-2022 Telephone encounter Imad Asaad [facility] Start: 11-30-2022 End: 11-30-2022 ambulatory Shantell Sea Other [employer] Other Start: 11-30-2022 Office outpatient vi sit 15 minutes Shantell Osei [facility] Start: 11-16-2022 End: 11-16-2022 ambulatory Shantell Osei Other [employer] Other Start: 11-16-2022 Telephone encounter Shantell Breaul t [facility] Start: 10-25-2022 ambulatory SHANTELL OSEI Facil ity:[facility] Start: 10-25-2022 End: 10-26-2022 ambulatory SHANTELL OSEI Facility:[facility] Start: 09-27-2022 End: 09-27-2022 ambulatory Patrice Levine Other [employer] Other Start: 09-27-2022 Postop follow up vis it related to original px Patrice Levine [facility] Start: 09-19-2022 End: 09-19-2022 ambulatory Patrice Levine Other [employer] Other Start: 09-19-2022 Telephone encounter Patrice novak [facility] Start: 09-13-2022 End: 09-13-2022 ambulatory Raissa Oh Other [employer] Other Start: 09-13-2022 Follow-up encounter Raissa Rahman [facility] Start: 08-24-2022 End: 08-24-2022 Admission to same day surgery center BRICK POINTER-C Shantell Osei Work Phone: [facility] [place] Start: 08-24-2022 End: 08-24-2022 ambulatory BRICK POINTER-C Shantell Osei Work Phone: [facility] Work Phone: Start: 08-23-2022 End: 08-23-2022 ambulatory BRICK POINTER-C Shantell Osei Work Phone: [facility] Work Phone: Start: 08-23-2022 End: 08-23-2022 Patient encounter procedure BRICK POINTER-C Shantell Osei Work Phone: [facility] Start: 08-18-2022 End: 08-18-2022 ambulatory JUNIOR MARIA ESTHER Facility:[facility] Start: 08-07-2022 End: 08-08-[address] TIMMY MORTON Facility:[facility] Start: 08-04-2022 End: 08-04-2022 ambulatory IVÁN GOVEA Facility:[facility] Start: 08-01-2022 End: 08-01-2022 ambulatory Gerber Short Other [employer] Other Start: 08-01-2022 Encounter for other preprocedural examination Gerber Ruizmyeshamary jane [facility] Start: 08-01-2022 Office outpatient vi sit 25 minutes Gerber Ruizfareed [facility] Start: 07-11-2022 End: 07-11-2022 Admission to same day surgery center BRICK POINTER-C Shantell Osei Work Phone: [facility] [place] Start: 07-11-2022 End: 07-11-2022 ambulatory BRICK POINTER-C Shantell Osei Work Phone: [facility] Work Phone: Start: 07-10-2022 End: 07-10-2022 Patient encounter procedure BRICK POINTER-C Shantell Osei Work Phone: [facility] Duh-Cnh-Lwlicsmc Testing Start: 07-08-2022 ambulatory JUNIOR MAYO Facility:[facility] 1 Start: 06-29-2022 End: 06-29-2022 ambulatory Patrice Levine Other [employer] Other Start: 06-29-2022 Encounter for other preprocedural examination Patrice Levine [facility] Start: 06-29-2022 Office outpatient vi sit 15 minutes Patrice Levine [facility] Start: 06-29-2022 Telephone encounter Patrice novak [facility] Start: 06-26-2022 End: 06-27-[address] TIMMY MORTON Facility:[facility] Start: 06-13-2022 End: 06-13-2022 ambulatory Shantell Osei Other [employer] Other Start: 06-13-2022 Telephone encounter Shantell Breaul t [facility] Start: 06-09-2022 End: 06-10-2022 ambulatory SHANTLEL SEA Facility: Start: 06-07-2022 End: 06-07-2022 ambulatory Monica Vaughan Other [employer] Other Start: 06-07-2022 Office outpatient vi sit 15 minutes Monicamichelle Vaughan [facility] Start: 06-06-2022 End: 06-06-2022 ambulatory Shantell Sea Other [employer] Other Start: 06-06-2022 Telephone encounter Shantell Breaul t [facility] Start: 05-25-2022 End: 05-25-2022 ambulatory Shantell Sea Other [employer] Other Start: 05-25-2022 Telephone encounter Shantell Breaul t [facility] Start: 05-01-2022 End: 05-01-2022 ambulatory Shantell Sea Other [employer] Other Start: 05-01-2022 Telephone encounter Shantell Breaul t [facility] Start: 03-24-2022 End: 03-24-2022 ambulatory Shantell Esa Other [employer] Other Start: 03-24-2022 Telephone encounter Shantell Breaul t [facility] Start: 03-09-2022 End: 03-09-2022 ambulatory Patrice Levine Other [employer] Other Start: 03-09-2022 Encounter for other preprocedural examination Patrice Levine [facility] Start: 03-09-2022 Office outpatient vi sit 40 minutes Patrice Levine [facility] Start: 03-09-2022 Telephone encounter Patrice Nahid novak [facility] Start: 03-03-2022 End: 03-03-2022 ambulatory Patrice Julianna Other [employer] Other Start: 03-03-2022 Telephone encounter Patrice Nahid novak [facility] Start: 02-28-2022 Telephone encounter Iván Govea [facility] Start: 02-28-2022 End: 02-28-2022 ambulatory SHANTELL SEA [facility] Other Start: 02-24-2022 End: 02-24-2022 ambulatory SHANTELL OSEI Facility:[facility] Start: 02-23-2022 End: 02-23-2022 ambulatory Junior Maria Esther Other [employer] Other Start: 02-23-2022 Office outpatient vi sit 15 minutes Shantell Osei [facility] Start: 02-23-2022 Telephone encounter Junior Maria Esther [facility] Start: 02-18-2022 End: 02-18-2022 ambulatory SHANTELL OSEI Facility:[facility] Start: 02-15-2022 End: 02-15-2022 ambulatory Shantell Osei Other [employer] Other Start: 02-15-2022 Telephone encounter Shantell mcgee [facility] Start: 02-14-2022 Telephone encounter Iván Govea [facility] Start: 02-14-2022 End: 02-14-2022 ambulatory SHANTELL SEA [facility] Other Start: 02-13-2022 End: 02-14-2022 ambulatory SHANTELLBRENDA OSEI Facility:[facility] Start: 02-13-2022 End: 03-14-2022 ambulatory JUNIOR MARIA ESTHER Facility:[facility] Start: 02-07-2022 End: 02-07-2022 ambulatory Iván Govea Other [employer] Other Start: 02-07-2022 Office outpatient vi sit 25 minutes Iván Govea [facility] Start: 02-07-2022 Telephone encounter Iván Govea [facility] Start: 02-06-2022 End: 02-07-[address] TOBY VENEGAS Facility:[facility] Start: 01-18-2022 End: 01-18-2022 ambulatory Shantell Osei Other [employer] Other Start: 01-18-2022 Telephone encounter Shantell mcgee [facility] Start: 01-17-2022 End: 01-17-2022 ambulatory Junior Maria Esther Other [employer] Other Start: 01-17-2022 Telephone encounter Junior Maria Esther [facility] Start: 01-10-2022 End: 01-10-2022 ambulatory Patrice Levine Other [employer] Other Start: 01-10-2022 Telephone encounter Patrice novak [facility] Start: 01-04-2022 End: 01-04-2022 ambulatory Patrice Levine Other [employer] Other Start: 01-04-2022 Encounter for other preprocedural examination Shantell Osei [facility] Start: 01-04-2022 Office outpatient vi sit 25 minutes Patrice Levine [facility] Start: 01-04-2022 Telephone encounter Shantell mcgee [facility] Start: 01-02-2022 End: 01-02-2022 ambulatory Patrice Leivne Other [employer] Other Start: 01-02-2022 Telephone encounter Patrice novak [facility] Start: 12-30-2021 End: 12-31-2021 ambulatory JUNIOR MARIA ESTHER Facility:[facility] Start: 12-29-2021 End: 12-29-2021 ambulatory Shantell Osei Other [employer] Other Start: 12-29-2021 Telephone encounter Junior Maria Esther [facility] Start: 12-26-2021 End: 12-26-2021 ambulatory Junior Maria Esther Other [employer] Other Start: 12-26-2021 Telephone encounter Junior Maria Esther [facility] Start: 12-22-2021 End: 12-23-2021 ambulatory JUNIOR MARIA ESTHER Facility:[facility] Start: 12-19-2021 Telephone encounter Junior Maria Esther [facility] Start: 12-19-2021 End: 12-20-2021 ambulatory JUNIOR MARIA ESTHER [facility] Other Start: 12-15-2021 End: 12-15-2021 ambulatory Junior Maria Esther Other [employer] Other Start: 12-15-2021 Office outpatient vi sit 25 minutes Junior Maria Esther [facility] Start: 12-12-2021 End: 12-13-2021 ambulatory JUNIOR MARIA ESTHER Facility:[facility] Start: 12-05-2021 Telephone encounter Shantellbrenda Epperson t [facility] Start: 12-05-2021 End: 12-06-2021 ambulatory SHANTELL OSEI [facility] Other Start: 11-29-2021 End: 11-29-2021 ambulatory Junior Maria Esther Other [employer] Other Start: 11-29-2021 Telephone encounter Junior Maria Esther [facility] Start: 11-28-2021 End: 11-29-2021 ambulatory JUNIOR MARIA ESTHER [facility] Other Start: 11-28-2021 Telephone encounter Junior Maria Esther [facility] Start: 11-26-2021 End: 11-26-2021 ambulatory Shantell Sea Other [employer] Other Start: 11-26-2021 Telephone encounter Shantell mcgee [facility] Start: 11-25-2021 End: 11-25-2021 ambulatory JUNIOR MARIA ESTHER [facility] Other Start: 11-25-2021 Telephone encounter Junior Maria Esther [facility] Start: 11-02-2021 End: 11-02-2021 ambulatory Junior Maria Esther Other [employer] Other Start: 11-02-2021 Telephone encounter Junior Maria Esther [facility] Start: 10-29-2021 End: 10-30-2021 ambulatory KELY CHURCH Facility:[facility] Start: 09-15-2021 End: 09-15-2021 ambulatory Junior Maria Esther Other [employer] Other Start: 09-15-2021 Office outpatient vi sit 15 minutes Junior Maria Esther [facility] Start: 09-15-2021 Telephone encounter Shantell mcgee [facility] Start: 09-14-2021 End: 09-14-2021 ambulatory Junior Maria Esther Other [employer] Other Start: 09-14-2021 Telephone encounter Junior Maria Esther [facility] Start: 09-13-2021 End: 09-14-2021 ambulatory SHANTELL SEA [facility] Other Start: 09-13-2021 Telephone encounter Junior Maria Esther [facility] Start: 09-10-2021 End: 09-10-2021 ambulatory SHANTELL SEA Facility:[facility] Start: 08-18-2021 End: 08-18-2021 ambulatory Junior Maria Esther Other [employer] Other Start: 08-18-2021 Office outpatient vi sit 15 minutes Junior Maria Esther [facility] Start: 2021 Telephone encounter Junior Maria Esther [facility] Start: 08-08-2021 Telephone encounter Junior Maria Esther [facility] Start: 07-28-2021 Office outpatient vi sit 15 minutes Shantell Zavalaault [facility] Start: 07-25-2021 Other Ace guerrero Work Phone: [facility] Work Phone: Start: 07-22-2021 End: 07-23-2021 Evaluation and management of inpatient [facility] Facility:[facility] Start: 07-21-2021 AUDIT Ace guerrero Work Phone: [facility] Work Phone: Start: 07-21-2021 Office outpatient vi sit 25 minutes Junior Maria Esther [facility] Start: 07-13-2021 Office outpatient ne w 60 minutes Ace Marr Work Phone: [facility] Work Phone: Start: 07-13-2021 Patient encounter procedure Ace Marr Work Phone: [id number] Work Phone: Start: 07-01-2021 AUDIT Ace guerrero Work Phone: [facility] Work Phone: Start: 02-15-2021 End: 02-15-2021 Patient encounter procedure Vivian Motta Work Phone: -Sleep Lab Start: 01-25-2021 End: 01-25-2021 Patient encounter procedure Vivian Motta [facility] Start: 03-17-2020 Patient encounter procedure Ace Marr [facility] Work Phone: Start: 02-18-2020 Patient encounter procedure Ace Marr [facility] Work Phone: Start: 02-09-2020 [facility]: Start: 12-03-2019 [facility] Work [facility]: Start: 06-04-2019 Patient encounter procedure Ace Marr [facility] Work Phone: Patient encounter status Ace Marr Work Phone: [facility] [id number] Work Phone: Procedures Date Procedure Procedure Detail Performing Clinician Start: 03-20-2024 Follow-up visit SINDY REYNOSO Start: 05-22-2023 Plain X-ray of left femur BRICK POINTER-C Shantell Osei Start: 05-22-2023 Plain X-ray of left tibia and left fibula BRICK POINTER-C Shantell Osei Start: 08-24-2022 Arteriovenous fistulization BRICK POINTER-C Shantell Sea Work Phone: Start: 07-11-2022 Arteriovenous fistulization BRICK POINTER-C Shantell Sea Work Phone: Start: 07-22-2021 Antibody screen JENNA AVILA Comment on above: Performed By: #### 3 [id number] #### [address] Start: 07-22-2021 DILATION OF INTRACRA NIAL ARTERY, OPEN APPROACH MUNIER NAZZAL Start: 07-22-2021 EXTIRPATION OF MATTE R FROM L COM CAROTID, OPEN APPROACH MUNIER NAZZAL Start: 07-22-2021 EXTIRPATION OF MATTE R FROM L EXT CAROTID, OPEN APPROACH MUNIER NAZZAL Start: 07-22-2021 EXTIRPATION OF MATTE R FROM L INT CAROTID, OPEN APPROACH MUNIER NAZZAL Start: 07-22-2021 INTRODUCTION OF OTHE R GAS INTO RESP TRACT, VIA OPENING MUNIER NAZZAL Start: 07-22-2021 SUPPLEMENT L COM CAR OTID WITH NONAUT SUB, OPEN APPROACH MUNIER NAZZAL Start: 07-22-2021 SUPPLEMENT L INT CAR OTID WITH NONAUT SUB, OPEN APPROACH MUNIER NAZZAL Appendectomy Ace Marr Cataract surgery Ace apple Comment on above: right eye; SARS Antigen (LFIA) [facility] Work Phone: Plan of Treatment Date Care Activity Detail Author Start: 01-09-2024 [facility] Start: 01-08-2024 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 Start: 01-08-2024 Hospital admission [facility] Start: 01-08-2024 Sleep disorder assessment [facility] Start: 01-08-2024 Performance of Urinary Filtration, Intermittent, Less than 6 Hours Per Day Performance of Urinary Filtration, Intermittent, Less than 6 Hours Per Day [facility] Start: 12-03-2023 End: 12-03-2023 Patient encounter procedure 12/03/2023 9:15 AM EST Office Visit [facility] [address] [place] [id number] Perez Stark DPM [address] [place] [address] [facility] Start: 06-11-2023 IR Fistulogram/TLA Stent (Left) IR Fistulogram/TLA Stent (Left) [facility] Start: 05-22-2023 [facility] Start: 05-22-2023 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 Start: 05-22-2023 Hospital admission [facility] Start: 08-24-2022 [facility] Start: 08-24-2022 [facility] Start: 07-11-2022 [facility] Start: 07-29-2021 [facility], Provider: Pablo Serrano, Status: Pen, Time: 10:30 AM [facility], Provider: Pablo Serrano, Status: Pen, Time: 10:[address] [facility]: Start: 07-12-2021 [facility], Provider: Pablo Serrano, Status: Pen, Time: 9:15 AM [facility], Provider: Pablo Serrano, Status: Pen, Time: 9:15 AM [facility] Work Phone: Start: 07-07-2021 [facility], Provider: Ace Marr, Status: Pen, Time: 11:30 AM [facility], Provider: Ace Marr, Status: Pen, Time: 11:30 AM [facility] Work Phone: Patient Education [facility] Work Phone: Patient referral [facility] Work Phone: Immunizations Immunization Date Immunization Notes Care Provider Fa surya 04-03-2020 Kenalog -40 mg Junior Maria Esther Other [employer] Other 04-03-2020 Toradol per 15 mg Junior Qadi r Other [employer] Other Payers Date Payer Category Payer Medicare [id number] 2023 Self-pay [id number] 2022 Medicaid [id number] 2. [id number] 2022 Medicare [id number] 2022 Medicare (Traditional) [id number] 1968 Unknown [id number] 2.16.8 40.1.076465.3.579.2.647 1968 Unknown [id number] 2.16.84 0.1.242746.3.579.2.593 1968 Unknown [id number] 2.16.84 0.1.050265.3.579.2.593 1968 Unknown [id number] 2.16.84 0.1.837568.3.579.2.593 1968 Unknown [id number] 2.16.84 0.1.434965.3.579.2.593 1968 Unknown [id number] 2.16.84 0.1.413318.3.579.2.593 1968 Unknown [id number] 2.16.84 0.1.641370.3.579.2.593 1968 Unknown [id number] 2.16.84 0.1.063765.3.579.2.593 1968 Unknown [id number] 2.16.84 0.1.261970.3.579.2.593 1968 Unknown [id number] 2.16.84 0.1.211085.3.579.2.593 1968 Unknown [id number] 2.16.84 0.1.349267.3.579.2.593 1968 Unknown [id number] 2.16.84 0.1.675373.3.579.2.593 1968 Unknown [id number] 2.16.84 0.1.793851.3.579.2.593 1968 Unknown [id number] 2.16.84 0.1.779375.3.579.2.593 1968 Unknown [id number] 2.16.84 0.1.542005.3.579.2.593 1968 Unknown [id number] 2.16.84 0.1.230430.3.579.2.593 1968 Unknown [id number] 2.16.84 0.1.956010.3.579.2.593 1968 Unknown [id number] 2.16.84 0.1.583448.3.579.2.593 1968 Unknown [id number] 2.16.84 0.1.305608.3.579.2.593 1968 Unknown [id number] 2.16.84 0.1.805774.3.579.2.593 1968 Unknown [id number] 2.16.84 0.1.355868.3.579.2.593 1968 Unknown [id number] 2.16.84 0.1.495937.3.579.2.593 1968 Unknown [id number] 2.16.84 0.1.548230.3.579.2.593 1968 Unknown [id number] 2.16.84 0.1.336204.3.579.2.593 1968 Unknown [id number] 2.16.84 0.1.621141.3.579.2.593 1968 Unknown [id number] 2.16.8 40.1.917567.3.579.2.727 1968 Unknown [id number] 2.16.8 40.1.940652.3.579.2.727 1968 Unknown [id number] 2.16.8 40.1.643343.3.579.2.727 1968 Unknown [id number] 2.16.8 40.1.253775.3.579.2.727 1959 Unknown [id number] Medicare Medicare [id number] Unknown Unknown [id number] 2.16.8 40.1.780276.3.579.2.531 Unknown [id number] 2.16.8 40.1.742284.3.579.2.531 Unknown [id number] 2.16.8 40.1.645556.3.579.2.531 Unknown [id number] 2.16.8 40.1.288899.3.579.2.531 Unknown [id number] 2.16.8 40.1.263628.3.579.2.531 Unknown [id number] 2.16.8 40.1.690862.3.579.2.531 Unknown [id number] 2.16.8 40.1.834745.3.579.2.531 Unknown [id number] 2.16.8 40.1.918676.3.579.2.531 Unknown [id number] 2.16.8 40.1.331730.3.579.2.531 Unknown [id number] 2.16.8 40.1.668731.3.579.2.531 Unknown [id number] 2.16.8 40.1.499440.3.579.2.531 Social History Date Type Detail Facility Start: 1970 Sex Assigned At Male [facility] Current every day smoker Current every day smoker [place] [address] Work Phone: Comment on above: 1 1/2 packs/daily; Sex Assigned At [employer] Other Start: 07-11-2022 End: 01-09-2024 Tobacco smoking status RIIS Smoker (finding) [facility] Tobacco smoking status [facility] Tobacco smoking consumption unknown [facility] Start: 1970 Sex Assigned At Not on file [facility] Healthcare NEGATED: Highlighted row - - [facility] Work Phone: Medical Equipment Procedure Code Equipment Code Equipment Origin al Text Equipment Identifier Dates Insertion, catheter, dialysis, tunneled, with imaging guidance Double-lumen haemodialysis catheter, implantable +[id number]$$ [id number] FDA Start: 12-30-2021 Creation or revision of arteriovenous fistula Synthetic vascular graft ()[id number] FDA Start: 08-24-2022 Goals Date Patient Goal Desired Activity /State Functional Status Date Assessment Result Facility 01-09-2024 Functional status Patient at Baseline [facility] Work Phone: 05-22-2023 Functional status Patient at Baseline [facility] Work Phone: NEGATED: Highlighted row Functional performance Functional status [facility] issues are [facility]: Mental Status Date Assessment Result Facility 01-09-2024 Cognitive function Cognitive Sta tus Patient at Baseline [facility] Work Phone: 05-22-2023 Cognitive function Cognitive Sta tus Patient at Baseline [facility] Work Phone: NEGATED: Highlighted row Cognitive function [Interpretation] Cognitive status health issues are not [facility] Work Phone: Clinical Notes 06-15-2021 to 03-20-2024 Note Date & Type Note Facility 03-20-2024 Note [facility] 03-12-2024 Note [facility] 03-12-2024 Note [facility] 02-20-2024 Note [facility] 02-12-2024 Note [facility] 02-06-2024 Note To continue hsi B12 monthly. We can discuss with him at follow up . Also with serology technician coordinating beautifully plan for the loading dose . He may be notified he will need only monthly . Thanks Rashmi Simmons MD [facility] 02-06-2024 Note [facility] 01-30-2024 Note Please call radiolog y to clarify which site was biopsied inguinal or neck? Thanks Rashmi Simmons MD [facility] 01-30-2024 Note Please give him date and time for surgery appointment with Dr De Souza for axillary lymph node excisional biopsy , since IR guided biopsy negative Rashmi Simmons MD [facility] 01-30-2024 Note [facility] 01-30-2024 Note I talked to Dr. Heather felton personally and he assured me he biopsied Leander Wares inguinal lymph node. [facility] 01-11-2024 Note [facility] 01-09-2024 Discharge summary Note Date/Time January 09, 2024 10:27am [facility] [address] [place] [address] Discharge Summary Signed Patient: Leander Massey MR#: [id number] : 1970 Acct:[id number] Age/Sex: 53 / M Adm Date: 4 Loc: Room: [address] [place] [address]: Jersey Sharp MD Copies to: MD Shantell Omalley, BRICK POINTER-~ Providers Date of Discharge: 01/09/24 Discharging Provider: Jersey Sharp Primary Care Provider: Shantell Osei Consults: 01/08/24 21:06 Consult to Sleep Lab Routine Comment: Physician Instructions: 01/08/24 22:14 Consult to Pulmonology Routine Comment: Consulting Provider: SASCHA Betancourt, [facility] Reason For Exam: Critical Care Management Has Provider Been Notified: Yes Date of Notification: 01/09/24 Time of Notification: 09:00 01/08/24 22:19 Consult to Nephrology Routine Comment: Consulting Provider: SASCHA [facility] Has Provider Been Notified: Yes Date of Notification: 01/08/24 Time of Notification: 22:30 Extended Comment: hyperkalemia, missed HD Reason for Consult: Hyper/Hypo Kalemia Dialysis Treatment Discharge Diagnosis (1) End-stage renal disease needing dialysis: (2) Acute hyperkalemia: (3) Acute and chronic respiratory failure with hypoxia: (4) Acute pulmonary edema: (5) Leukocytosis: (6) Hypertension: Final Diagnosis Final Discharge Diagnosis: As listed above and others that are not listed Summary Hospital Course Hospital course: Mr Massey is a 53-year-old gentleman with end-stage kidney disease on hemodialysis. The patient missed his dialysis yesterday due to an appointment in [place]. He came with shortness of breath. He was found to have respiratory distress secondary to interstitial pulmonary edema, hypertension hyperkalemia. Patient was admitted and received hemodialysis urgently and fluid removal. This morning the patient is feeling great. Saturation 99%. Blood pressure 152/80. Potassium is down to 3.5. Chest his exam is clear, heart is regular. Patient is not known to have systolic heart failure. Last echocardiogram was done in 2021 showed normal ejection fraction. Hypertension. Given his hyperkalemia I would recommend to change his lisinoprilfrom 20 mg twice a day down to 10 mg daily. Instead I will add amlodipine 5 mg daily. The patient is on upper blood pressure medications that he would need tocontinue. Patient has multiple complex medical issues as listed above and others that are not listed. Patient is feeling great compared to yesterday. No respiratory distress or chest discomfort whatsoever. Patient is requesting to be dischargedhome today so he can attend his hemodialysis tomorrow. He does not [place] again. Patient is not willing to stay for additional observation, monitoring ortreatment for the next 24 to 48 hours to ensure stability. Patient understood potential risk of premature discharge including worsening cardiopulmonary disease, electrolyte abnormalities, respiratory failure, others up to . Once again patient is feeling great and insisted on going home today. At this time, I do not have any legal justification no I have any strong clinical justification to extend inpatient hospitalization against his will and desire togo home. Patient however will require close and frequent monitoring as well as additional work-up, investigation and therapeutic intervention that could take place from this point on post discharge. That is to prevent relapse, decompensation, rehospitalization and other medical implications. I instructed patient to ask her primary care doctor to obtain [facility] record entirely to address abnormalities seen on labs and imagingthat I have and have not addressed during this hospitalization, follow-up on pending blood work, imaging and pathology is if available and to follow-up on needed medical care in the outpatient setting. Time Spent with Patient Time spent providing/coordinating discharge services (# min): 40 Diagnostic Studies Completed and Pending Studies Pending studies at discharge: 01/10/24 05:00 Complete Blood Count Auto Diff IN AM Comprehensive Metabolic Panel [CHEM] IN AM 01/11/24 05:00 Complete Blood Count Auto Diff IN AM Comprehensive Metabolic Panel [CHEM] IN AM Labs on day of discharge: 01/09/24 04:37: Corrected WBC 11.3 H, Uncorrected WBC Count 11.3 H, RBC 2.34 L, Hgb 8.7 L, Hct 26.1 L, MCV 111.7 H, MCH 37.3 H, MCHC 33.4, RDW 17.7 H, Plt Count 326, MPV 8.4, Neut % (Auto) 81.4, Lymph % (Auto) 7.2, [place] % (Auto) 5.4, Eos % (Auto) 4.9, Baso % (Auto) 1.1, Nucleat RBC Rel Count 0.2, Neut # (Auto) 9.2 H, Lymph # (Auto) 0.8 L, [place] # (Auto) 0.6, Eos # (Auto) 0.6 H, Baso # (Auto) 0.1, PHA Creatinine Clear 17.89, Sodium 136, Potassium 3.5 D, Chloride 95 L, Carbon Dioxide 28.9, Anion Gap 15.6 H, BUN 21 D, Creatinine 5.40 H D, Est GFR (CKD-EPI) 11.747, Glucose 77, Calcium 9.5, Magnesium 1.9, Total Bilirubin 0.6, AST 15, ALT 12, Alkaline Phosphatase 72, Total Protein 6.8, Albumin 4.2, Globulin 2.6, Albumin/Globulin Ratio 1.6 01/08/24 22:24: Corrected WBC 17.7 H, Uncorrected WBC Count 17.7 H, RBC 2.37 L, Hgb 8.7 L, Hct 26.7 L, MCV 112.7 H, MCH 36.8 H, MCHC 32.7, RDW 18.1 H, Plt Count 328, MPV 8.1, Neut % (Auto) 91.7, Lymph % (Auto) 2.6, [place] % (Auto) 3.2, Eos % (Auto) 2.4, Baso % (Auto) 0.1, Nucleat RBC Rel Count 0.0, Neut # (Auto) 16.2 H, Lymph # (Auto) 0.5 L, [place] # (Auto) 0.6, Eos # (Auto) 0.4, Baso # (Auto) 0.0, Platelet Estimate Normal, Plt Morphology Comment Normal, RBC Morphology N/A, Polychromasia Moderate, Anisocytosis Moderate, Macrocytosis Moderate, Schistocytes Slight, PHA Creatinine Clear 7.40, Sodium 132 L, Potassium 7.1 H*, Chloride 98, Carbon Dioxide 22.2, Anion Gap 18.9 H, BUN 67 H, Creatinine 13.26 H, Est GFR (CKD-EPI) 3.997, Glucose 89, Calcium 9.5, Total Bilirubin 0.5, AST 17, ALT 12, Alkaline Phosphatase 81, Total Protein 6.5, Albumin 3.9, Globulin 2.6, Albumin/Globulin Ratio 1.5 Exam Physical Exam Vital Signs: Temp Pulse Resp BP Pulse Ox O2 Del Method O2 Flow Rate 98.0 F 78 19 152/80 H 99 Nasal Cannula 2 01/09/24 08:00 01/09/24 10:00 01/09/24 10:00 01/09/24 10:00 01/09/24 10:00 01/09/24 10:00 01/09/24 10:00 FiO2 30 01/09/24 05:19 Narrative: Patient is sitting in bed. Feeling great. Saturation 99%. He denies any chest or abdominal pain. No nausea or vomiting. Patient is requesting to be discharged home. Chest is clear, heart is regular. Abdomen soft. Lower extremities no edema Discharge Plan Discharge Plan Patient Disposition: Home Additional Instructions: I may not have addressed or treated all of your medical illnesses or the abnormal blood work or imaging studies during this hospitalization. Please ask your primary care provider to obtain [facility] records entirely to follow up on all of the abnormal physical, laboratory, and imaging findings that I have not addressed. Please return back to the emergency room or seek medical attention if your symptoms worsen or return. Discharging you from [facility] does not mean that your medical care ends here and now. You may still need additional monitoring, work up, investigation, and treatment plan to be handled from this point on by out patient providers including your primary care provider and specialists. For any medication question, please contact your retail pharmacist or your primary care provider. Thank you. Prescriptions: New amlodipine 5 mg tablet 5 mg PO DAILY Qty: 30 2RF lisinopril 10 mg tablet 10 mg PO DAILY Qty: 30 2RF Continued atorvastatin [Lipitor] 40 mg tablet 40 mg PO DAILY Rx Instructions: TAKE 1 TABLET BY MOUTH EVERY DAY FOR 90 DAYS carvedilol [Coreg] 25 mg tablet 25 mg PO BID Rx Instructions: TAKE 1 TABLET BY MOUTH TWICE A DAY hydralazine 100 mg tablet 100 mg PO BID Patient Comments: TAKE 1 TABLET BY MOUTH THREE TIMES A DAY levothyroxine 112 mcg tablet 100 mcg PO DAILY minoxidil 10 mg tablet 10 mg PO BID gabapentin 300 mg capsule 300 mg PO BID sevelamer carbonate [Renvela] 800 mg tablet 1,600 mg PO TIDWM Patient Comments: TAKE 2 TABLETS BY MOUTH 3 TIMES DAILY WITH MEALS Nephro-Vianca 0.8 mg tablet 1 tab PO DAILY Discontinued lisinopril 20 mg tablet 20 mg PO BID Patient Comments: TAKE 1 TABLET BY MOUTH TWICE A DAY Documented By: Jersey Sharp MD 01/09/24 1024 Signed By: <Electronically signed by Jersey Sharp MD> 01/09/24 1030 [facility] Work Phone: 1(317) 579-226803-27-2024 History and physical note Author Percy Herrera [facility] January 08, 2024 10:52pm Note Date/Time January 08, 2024 10: 52pm [facility] [address] [place] [address] Hospitalist H&P Signed Patient: Leander Massey MR#: [id number] : 1970 Acct:[id number] Age/Sex: 53 / M Adm Date: 4 Loc: Room: [address] [place] [address] Type: ADM IN Attending Dr: Jose Luis Musa MD Copies to: MD Jose Luis Bernal MD Stephanie Breault, BRICK POINTER-BC~ HPI DATE OF EXAMINATION: 01/08/24 CHIEF COMPLAINT: dyspnea HISTORY OF PRESENT ILLNESS: 53 year old man with history of ESRD on HD TTS, HTN, DLD, hypothyroidism, PVD, and COPD on nocturnal bipap who presented to [facility] complaining of acute onset of dyspnea earlier on the date of presentation Per the patient he last had a dialysis treatment on Thursday 01/04. He was to have an appointment with a physician this afternoon, and had moved his dialysis treatment to sunday morning to accommodate this. around 1 pm, however, the patient developed acute respiratory distress and was brought to [facility] for evaluation- vital signs on arrival were T 36.2 P 134 R 36 BP 240/138 SaO2 72% on 5L. He was immediately started on bipap at 16/8. CXR revealed bilateral perihilar opacities c/w pulmonary edema. lab studies with K of 6.5. given labetalol, calcium gluconate, 1 amp sodium bicarb, and started on a nitrogylcerin gtt. Pt was transferred to this hospital for further evaluation/mgmt When I evaluated the patient in the ICU, he was saturating 99-100% on a simple mask, and stated that his breathing had improved significantly compared to earlier this afternoon. ROS: 10 systems reviewed and were negative except as noted in the HPI Review of Systems Constitutional Constitutional: Reports system reviewed and no additional complaints, except as documented [facility] Medical History Arteriovenous fistula of left upper extremity failed Hypothyroid Hyperlipidemia TIA (transient ischemic attack) Hypertension Chronic kidney disease Surgical History H/O carotid endarterectomy left History of appendectomy Family History Brother Hypertension Legacy FamHx Relation: Brother(s) Family history of mental disorder Legacy FamHx Relation: Brother(s); Legacy FamHx Problem: Diagnosed with Mental Illness Father History of stroke Legacy FamHx Problem: Diagnosed with Stroke Hypertension Family history of mental disorder Legacy FamHx Problem: Diagnosed with Mental Illness Family/Other Legacy FamHx Problem: 1 SISTER SUICIDE Mother COPD (chronic obstructive pulmonary disease) Family history of mental disorder Legacy FamHx Problem: Diagnosed with Mental Illness Heart disease Sister Family history of mental disorder Legacy FamHx Problem: Diagnosed with Mental Illness Other CAD (coronary artery disease) Social History Smoking Status: Current every day smoker Tobacco Type: cigarettes Substance Use Type: None Social History Comments: mobile home Meds Medications and Allergies Allergies Iodinated Contrast Media Allergy (Unknown, Verified 11/14/23 14:00) No Known Allergies Allergy (Verified 06/11/23 12:20) Home Medications atorvastatin 40 mg tablet (Lipitor) 40 mg PO DAILY 12/05/21 [History Confirmed 01/08/24] carvedilol 25 mg tablet (Coreg) 25 mg PO BID 12/05/21 [History Confirmed 01/08/24] sevelamer carbonate 800 mg tablet (Renvela) 1,600 mg PO TIDWM 07/11/22 [History Confirmed 01/08/24] hydralazine 100 mg tablet 100 mg PO BID 08/24/22 [History Confirmed 01/08/24] lisinopril 20 mg tablet 20 mg PO BID 08/24/22 [History Confirmed 01/08/24] vitamin B complex-vitamin C-folic acid 0.8 mg tablet (Nephro-Vianca) 1 tab PO DAILY 03/01/23 [History Confirmed 01/08/24] gabapentin 300 mg capsule 300 mg PO BID 05/22/23 [History Confirmed 01/08/24] levothyroxine 112 mcg tablet 112 mcg PO DAILY 05/22/23 [History Confirmed 01/08/24] minoxidil 10 mg tablet 10 mg PO BID 05/22/23 [History Confirmed 01/08/24] Exam Physical Exam Vital Signs: Temp Pulse Resp BP Pulse Ox O2 Del Method O2 Flow Rate 97.6 F 103 H 33 H 173/94 H 97 BiPAP 10 01/08/24 22:00 01/08/24 22:23 01/08/24 22:23 01/08/24 22:00 01/08/24 22:23 01/08/24 22:00 01/08/24 21:00 FiO2 30 01/08/24 22:23 Const General: cooperative, comfortable and no acute distress HEENT Head: normal to inspection Ears: external ears normal Nose: external nose normal Face and sinus: normal facial exam Mouth: oral mucosae normal Throat: posterior oropharynx normal Eyes General: appearance normal, both eyes and all related structures Visual King: normal visual king by confrontation Sclera: sclerae normal Pupils: PERRL and accommodation normal Neck Neck: normal visual inspection, no lymphadenopathy and supple Thyroid: thyroid normal Lymphatic: no lymphadenopathy noted Chest Chest palpation & inspection: normal inspection of the chest Resp Effort & Inspection: normal respiratory effort, able to speak in complete sentences and symmetric chest movement Auscultation: diminished lung sounds bilaterally Cardio Palpation: normal PMI Rate: tachycardic Rhythm: regular rhythm Heart Sounds: S1 normal and S2 normal GI Inspection: normal to inspection Palpation: soft Auscultation: normal bowel sounds General: bladder normal to palpation Musc Cervical Spine: cervical ROM normal Thoracic/Lumbar Spine: thoracic and lumbar spine normal to inspection Skin General: no rashes or lesions noted and turgor normal Neuro General: patient alert, patient awake and patient oriented x3 Cranial Nerves: CN's II-XII intact bilaterally Cognition: normal cognition Speech: speech normal Motor: muscle tone normal throughout Sensory Exam: no sensory deficits noted Extrem General: normal to inspection and full ROM Psych Appearance: grossly normal Mental Status: mental status grossly normal Affect: normal affect Speech and Movement: speech and movement normal Attitude: cooperative Assessment & Plan Assessment/Plan (1) End-stage renal disease needing dialysis: (2) Acute hyperkalemia: (3) Acute and chronic respiratory failure with hypoxia: (4) Acute pulmonary edema: (5) Leukocytosis: Plan - admit to ICU - stat nephrology consult for hemodialysis, tonight vs. tommorow am - stat CMP and CBC, stat ECG to eval for changes r/t hyperkalemia- rx accordingly - hold ACEI in setting of hyperkalemia. restart other home anithypertensive meds - bipap hs at home settings - supplemental O2 titrate - f/u WBC, trend, monitor for evidence of infection - VTE prophlyaxis- SQ heparin IP vs OBS Justification Based on differential dx, clinical care plan, and risk of adverse events, if untreated, in my clinical judgement this patient requires an acute care setting as: INPATIENT because of an expectation of an over 2 midnight stay. Estimated length of stay (# of days): 2 Documented By: Percy Herrera MD 01/08/242233 Signed By: <Electronically signed by Percy Herrera MD> 01/08/24 2252 [facility] Work Phone: 1(385) 632-619403-22-[address] [facility] 12-24-[address] [facility]03-[facility]-[address] [facility]-2024 NoteAll the above testing/treatments have been ordered.[facility] 12-19-2023 [facility]03-05-[address] [facility]-01-2024 [facility] 12-14-[address] [facility]-01-2024 [facility]03-01-[address] [facility] 12-14-[address] [facility]02-19-2024 NoteDue to patient's allergy to iodine contrast, RX for prednisone has been sent to [facility]. Patient verbalized understanding.[facility]02-16-[address] [facility]01-31-2024 Evaluation note* Encounter Date Diagnosis Assessment Notes Treatment Notes Treatment Clinical Notes Oct, Hand dermatitis (ICD-10 - L30.9) Though multplex PCR testing was done on left hand with various skin bacteria nad fugnus found I think this is more a hand eczema and will attempt high potency steroid first. Oct, Plantar wart of left foot (ICD-10 - B07.0) I feel his foot skin issue is more related to platar warts so feel podiatry would be bst to manage this. [employer] Other 01-16-2024 NotePatient's chart and past medical history has been reviewed, Dr. Helms would like the patient have an Dobutamine Stress Echo as part of the evaluation. Testing has been ordered; and patient will be called to scheduled.[facility]11-27-2023 [facility] 08-16-2023 NoteTc returned pts call. Pt states he is finally feeling better post vascular procedure and has a vascular apt 09/10/23 to follow up. Pt will have clearance sent over at that time.[facility]10-24-2023 Note [facility]10-06-[address] [facility]09-27-[address] [facility]09-20-2023 Note [facility]-13-[address] [facility]-10-20[facility]09-09-2023 Note [facility]-09-[address] [facility]-08-[address] [facility]-08-2023 Note [facility]-08-[address] [facility]-08-[address] [facility]-08-2023 Note [facility]-07-[address] [facility]09-07-2023 NoteDialysis called and stated pt LUE av graft had clotted off and they were unable to complete his session. Trialysis placed by Dr. Live Gambino at bedside. Pt will likely need permacath and follow up for more permanent access.[facility]09-07-[address] [facility] 06-21-[address] [facility]-06-2023 NoteAssessed pt abd d/t increase in distention and firmness. Dr. Avila notified, vitals WNL. Continue to monitor.[facility]09-06-[address] [facility]09-06-[address] [facility]09-06-[address] [facility]09-06-2023 Note [facility]08-17-2023 [facility] [facility]08-11-2023 Note [facility]Yes, scheduled for 06/[address] [facility]08-01-2023 Evaluation note* Encounter Date Diagnosis Assessment Notes Treatment Notes Treatment Clinical Notes May, Dyshidrotic eczema (ICD-10 - L30.1) Discussed with patient exam is consistent with dyshidrotic eczema. Discussed exact cause of flare is not known but could be related to chemical exposure. Advise should avoid excessive drying chemicals such as hand shield runner, washing hands frequently. Discussed use of emollient such as Aquaphor or Cetaphil lotion. Avoid scratching or picking at areas. We will treat with triamcinolone ointment as well as Medrol Dosepak for acute flare. Patient is advised to follow-up with PCP or dermatology if not gradually improving over the next week or significantly worsening. Patient verbalized understanding of treatment plan. May, Other Eczema (atopic dermatitis) material was printed [employer] Other 02-16-2023 Evaluation note* Encounter Date Diagnosis Assessment Notes Treatment Notes Treatment Clinical Notes Nov, Sebaceous cyst (ICD-10 - L72.3) Referral put in as discussed. Nov, Colon cancer screening (ICD-10 - Z12.11) Referral for Gastro put in as discussed. [employer] Other 12-14-2022 Evaluation note* Encounter Date Diagnosis Assessment Notes Treatment Notes Treatment Clinical Notes Sep, Hemodialysis access, AV graft (ICD-10 - Z99.2) I suggest we go ahead and start using this graft. Looks good to me. Hopefully we can take out this catheter the next few weeks. The patient understands agrees the plan all his questions were answered. I did reassure the patient that most of the numbness and tingling should resolve over the next few months. [employer] Other 11-30-2022 Evaluation note* Encounter Date Diagnosis Assessment Notes Treatment Notes Treatment Clinical Notes Aug, End stage renal disease (ICD-10 - N18.6) Aug, Dependence on renal dialysis (ICD-10 - Z99.2) Aug, Hemodialysis access, AV graft (ICD-10 - Z99.2) This patient had AV graft placement about [address] Short. Overall the graft is functioning well with good thrill and bruit throughout. Unfortunately he ended up with some cellulitis postoperatively and is on IV antibiotic therapy as given by his imitation marble mechanic. The cellulitis is improved overall. He continues with hemodialysis through a right IJ hemodialysis tunneled catheter currently which is functioning well for him. We will see him again in a couple of weeks time to ensure full recovery from his cellulitis prior to attempts at accessing the newly placed graft. He verbalizes understanding of all discussion, agrees with this plan, denies any questions. Aug, Carotid stenosis, bilateral (ICD-10 - I65.23) We reviewed today's carotid duplex studies which show right ICA stenosis less than 50% and left ICA stenosis 50 to 69% by velocity. He had left CEA about 8 months ago in [place]. There is slight elevation in peak systolic velocity compared to previous studies in January which may indicate restenosis on the left. We will see him again in about 6 months time with repeat studies. If duplex studies are stable at that time we can move to annual surveillance studies. He will remain on good medical therapy with use of aspirin and statin medications daily. Once again we discussed the bilaterally enlarged thyroid nodules identified on ultrasound. He was previously referred to ENT specialist for evaluation however unfortunately the patient was unable to attend and he never did reschedule this. We discussed the importance of follow-through with referral to ENT specialist for further evaluation. He agrees and is asking for us to schedule him new appointment. This was done while he was in the office today. We will see this patient back in 6 months time with repeat carotid studies. He knows to call us in the meantime with any issues or concerns. We reviewed signs and symptoms of carotid occlusive disease and when would be appropriate to return for further evaluation prior to neck scheduled appointment. He verbalizes understanding of all discussion, agrees with this plan, denies any questions. [employer] Other 10-18-2022 Evaluation note* Encounter Date Diagnosis Assessment Notes Treatment Notes Treatment Clinical Notes Jul, Pre-op testing (ICD-10 - Z01.818) Jul, End stage renal disease (ICD-10 - N18.6) Jul, Dependence on renal dialysis (ICD-10 - Z99.2) Jul, Other End-stage renal disease with need for dialysis access Given his current anatomy, his age, his desire for transplantation, the failure of his Laura fistula, and the length of time he has had his catheter in place we will proceed with a left forearm prosthetic graft so that we can hopefully remove the catheter sooner. He has good antecubital anatomy for this. He understands and agrees with that plan. I reviewed his options including additional autologous access and showed him a prosthetic graft so that he be aware the nature of the procedure. [employer] Other 09-27-2022 [facility]* Encounter Date Diagnosis Assessment Notes Treatment Notes Treatment Clinical Notes Jun, End stage renal disease (ICD-10 - N18.6) Jun, Dependence on renal dialysis (ICD-10 - Z99.2) I reviewed the vein mapping with this patient. He has excellent forearm vein in the left upper extremity. We will proceed with a radiocephalic AV fistula. This should be done under either MAC local or regional block with local. This will most likely depend on the attending anesthesiologist. I would prefer a good block. I discussed the risks and benefits with the patient as well as medical surgical alternatives he understands wishes to proceed all his questions were addressed today and we will schedule this in the near future. [employer] Other 09-15-2022 Evaluation note* Encounter Date Diagnosis Assessment Notes Treatment Notes Treatment Clinical Notes Jun, Preop testing (ICD-10 - Z01.818) [employer] Other 08-24-2022 Evaluation note* Encounter Date Diagnosis Assessment Notes Treatment Notes Treatment Clinical Notes May, Strain of lumbar region, initial encounter (ICD-10 - S39.012A) May, Sciatica of left side (ICD-10 - M54.32) Sciatica home care material was printed Drink plenty fluids, get plenty of rest. Continue home medications as prescribed. Take the prednisone as prescribed until gone. Take the Flexeril as prescribed as needed for muscle pain and stiffness. Be aware the Flexeril make you very tired. Follow-up with your family physician to discuss your low blood pressure as well as your sciatica. May, Hypotension, unspecified hypotension type (ICD-10 - I95.9) [employer] Other 08-23-2022 Evaluation note* Encounter Date Diagnosis Assessment Notes Treatment Notes Treatment Clinical Notes May, DDD (degenerative disc disease), cervical (ICD-10 - M50.30) [employer] Other 08-11-2022 Evaluation note* Encounter Date Diagnosis Assessment Notes Treatment Notes Treatment Clinical Notes May, DDD (degenerative disc disease), cervical (ICD-10 - M50.30) [employer] Other 07-18-2022 Evaluation note* Encounter Date Diagnosis Assessment Notes Treatment Notes Treatment Clinical Notes Apr, DDD (degenerative disc disease), cervical (ICD-10 - M50.30) [employer] Other 05-26-2022 Evaluation note* Encounter Date Diagnosis Assessment Notes Treatment Notes Treatment Clinical Notes February, Asymptomatic stenosis of left carotid artery (ICD-10 - I65.22) I did review the patient's carotid duplex with him today. This is a postop surveillance study which revealed that there was no stenoses at this time. Everything looks good from the repair done in [place]. We will need to repeat that study in 6 months. The meantime the patient should remain on aspirin and statin therapy for life. February, End stage renal disease (ICD-10 - N18.6) This patient is in need of a left upper extremity distal radiocephalic AV fistula. I did review the vein mapping results with the patient today. He is right-handed. We will plan this is a [facility] local outpatient case in the next few weeks. The risks and benefits were explained as well as medical surgical tenderness he understands wishes to proceed all his questions were addressed. Consent was obtained today in the office. February, Dependence on renal dialysis (ICD-10 - Z99.2) February, Mass in neck (ICD-10 - R22.1) I did see that on the carotid duplex a mass was found in the thyroid. I am going to refer this patient to ENT for further work-up. The patient is agreeable to this. He has no respiratory distress at this time and is able to chew and swallow. [employer] Other 05-26-2022 Evaluation note* Encounter Date Diagnosis Assessment Notes Treatment Notes Treatment Clinical Notes February, Pre-op testing (ICD-10 - Z01.818) [employer] Other 05-12-2022 Evaluation note* Encounter Date Diagnosis Assessment Notes Treatment Notes Treatment Clinical Notes February, Primary insomnia (ICD-10 - F51.01) May start with half tablet for first 2 weeks then increase to 1 tablet at bedtime [employer] Other 04-26-2022 Evaluation note* Encounter Date Diagnosis Assessment Notes Treatment Notes Treatment Clinical Notes Jan, Aidan hy kid w cr kid I-IV (ICD-10 - I12.9) Blood pressure is elevated. Patient ran out of hydralazine. I will give refill hydralazine Patient also has legs edema I will increase Lasix to twice a day. Continue same other medication. I asked the patient to monitor his blood pressure at home Jan, CKD (chronic kidney disease) stage 4, GFR 15-29 ml/min (ICD-10 - N18.4) He has a longstanding CKD due to the hypertension Patient was on dialysis from December 2021 to till January 2022. Kidney function then improved. Last creatinine 2.3 GFR 30 Still have right IJ tunneled catheter for dialysis. I will ask vascular surgeon remove it And follow-up with the patient 2 months with repeated blood work as above Jan, Anemia of renal dise ase (ICD-10 - D63.1) We will check CBC next visit along with iron storage Jan, Vitamin D deficiency (ICD-10 - E55.9) I will check 25-hydroxy vitamin D next visit Jan, Hyperparathyroidism (ICD-10 - E21.3) I will check PTH along with calcium and phosphorus next visit Jan, Nephrolithiasis (ICD -10 - N20.0) He denies any recent passage of the kidney stones. I have advised him to adequately hydrate himself. Jan, Localized edema (ICD -10 - R60.0) I will increase Lasix to twice a day. Asked the patient to follow a low-salt diet [employer] Other 03-23-2022 Evaluation note* Encounter Date Diagnosis Assessment Notes Treatment Notes Treatment Clinical Notes Dec, CKD (chronic kidney disease) stage 5, GFR less than 15 ml/min (ICD-10 - N18.5) This patient is currently on dialysis. I did review his vein mapping. We will proceed with a creation of left upper extremity distal, Laura AV fistula. The risks and benefits were explained as well as medical surgical tenderness we also reviewed possible complications and their management. I gave him dialysis handout today. We reviewed each page individually. All his questions were addressed we will schedule this in the near future. I also recommended a carotid duplex since he is due from his procedure in [place]. [employer] Other 03-23-2022 Evaluation note* Encounter Date Diagnosis Assessment Notes Treatment Notes Treatment Clinical Notes Dec, Pre-op testing (ICD-10 - Z01.818) [employer] Other 03-14-2022 Evaluation note* Encounter Date Diagnosis Assessment Notes Treatment Notes Treatment Clinical Notes Dec, CKD (chronic kidney disease) stage 4, GFR 15-29 ml/min (ICD-10 - N18.4) [employer] Other 03-07-2022 Evaluation note* Encounter Date Diagnosis Assessment Notes Treatment Notes Treatment Clinical Notes Dec, CKD (chronic kidney disease) stage 4, GFR 15-29 ml/min (ICD-10 - N18.4) [employer] Other 03-03-2022 Evaluation note* Encounter Date Diagnosis Assessment Notes Treatment Notes Treatment Clinical Notes Dec, Aidan hy kid w cr kid I-IV (ICD-10 - I12.9) Blood pressure is better controlled and appears to be hypervolemic. I have resumed lasix every day. He has no evidence of renal artery stenosis on renal artery Doppler. I also ordered a work-up for other causes of secondary hypertension including pheochromocytoma and primary hyperaldosteronism. Dec, CKD (chronic kidney disease) stage 4, GFR 15-29 ml/min (ICD-10 - N18.4) He has a longstanding CKD due to the hypertension is seen creatinine 4.1 with upper deciliter above baseline creatinine 2.5-2.8 mg/dL. His renal function has been declining due to the hemodynamic changes in the setting of better blood pressure control. I discussed with the importance of different option of [employer] including HD, PD 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 He is interested in home hemodialysis.. I have referred him to the vascular surgery for AVF. Dec, Anemia of renal dise ase (ICD-10 - D63.1) Hemoglobin is within the goal and has adequate iron stores. No need of KATIE. Dec, Vitamin D deficiency (ICD-10 - E55.9) He has a vitamin D deficiency and currently takes oral vitamin D Dec, Hyperparathyroidism (ICD-10 - E21.3) MBD parameters are within the goal. No need for calcitriol. Dec, Nephrolithiasis (ICD -10 - N20.0) He denies any recent passage of the kidney stones. I have advised him to adequately hydrate himself. [employer] Other 02-14-2022 Evaluation note* Encounter Date Diagnosis Assessment Notes Treatment Notes Treatment Clinical Notes Nov, Chronic kidney disease, stage III (moderate) (ICD-10 - N18.30) Nov, Aidan hy kid w cr kid I-IV (ICD-10 - I12.9) Nov, Nephrolithiasis (ICD-10 - N20.0) Nov, Anemia of renal disease (ICD-10 - D63.1) [employer] Other 02-14-2022 Evaluation note* Encounter Date Diagnosis Assessment Notes Treatment Notes Treatment Clinical Notes Nov, CKD (chronic kidney disease) stage 4, GFR 15-29 ml/min (ICD-10 - N18.4) Nov, Essential hypertension (ICD-10 - I10) Nov, Aidan hy kid w cr kid I-IV (ICD-10 - I12.9) [employer] Other 02-12-2022 Evaluation note* Encounter Date Diagnosis Assessment Notes Treatment Notes Treatment Clinical Notes Nov, Chronic kidney disease, stage 3a (ICD-10 - N18.31) Nov, Bilateral leg edema (ICD-10 - R60.0) [employer] Other 01-19-2022 Evaluation note* Encounter Date Diagnosis Assessment Notes Treatment Notes Treatment Clinical Notes Oct, CKD (chronic kidney disease) stage 4, GFR 15-29 ml/min (ICD-10 - N18.4) [employer] Other 12-02-2021 Evaluation note* Encounter Date Diagnosis Assessment Notes Treatment Notes Treatment Clinical Notes Sep, Aidan hy kid w cr kid I-IV (ICD-10 - I12.9) Blood pressure is uncontrolled and appears to be euvolemic. His blood pressure was controlled on these medications. Unfortunately he got confused due to the auto refill prescription by pharmacy and was taking medication based on old prescription. I have sent a new prescription to reconsult with the pharmacy. I also have increased the dose of the carvedilol for better blood pressure control. I advised him to monitor blood pressure and call office in 5 days. I encouraged him to see the cardiology. I have advised him not to take minoxidil which was prescribed previously. I discussed with the PCP who also called the pharmacy cancel all of his oral antihypertensive medication prescriptions. Julia fraga both discussed with the patient and went over with the medications multiple times so that he knows how to take it. Sep, CKD (chronic kidney disease) stage 4, GFR 15-29 ml/min (ICD-10 - N18.4) He has a longstanding CKD due to the hypertension with baseline creatinine 2.5-2.8 mg/dL. I discussed with the importance of potassium control to slow down the progression of CKD. I have advised him low potassium diet and provide information about it. Sep, Anemia of renal dise ase (ICD-10 - D63.1) Hemoglobin is within the goal and has adequate iron stores. No need of KATIE. Sep, Vitamin D deficiency (ICD-10 - E55.9) He has a vitamin D deficiency and currently takes oral vitamin D Sep, Hyperparathyroidism (ICD-10 - E21.3) MBD parameters are within the goal. No need for calcitriol. Sep, Nephrolithiasis (ICD -10 - N20.0) He denies any recent passage of the kidney stones. I have advised him to adequately hydrate himself. [employer] Other 11-04-2021 Evaluation note* Encounter Date Diagnosis Assessment Notes Treatment Notes Treatment Clinical Notes Aug, Aidan hy kid w cr kid I-IV (ICD-10 - I12.9) Blood pressure is controlled and appears to be euvolemic. Continue current antihypertensive medications. I have advised him to continue to monitor blood pressure at home and call office if his stays above 140/90 mmHg Persistently. I also advised him to be compliant with the medications. Aug, CKD (chronic kidney disease) stage 4, GFR 15-29 ml/min (ICD-10 - N18.4) He has a longstanding CKD due to the hypertension with baseline creatinine 2.5-2.8 mg/dL. I discussed with the importance of potassium control to slow down the progression of CKD. I have advised him low potassium diet and provide information about it. Aug, Anemia of renal dise ase (ICD-10 - D63.1) Hemoglobin is within the goal and has adequate iron stores. No need of KATIE. Aug, Vitamin D deficiency (ICD-10 - E55.9) He has a vitamin D deficiency and currently takes oral vitamin D Aug, Hyperparathyroidism (ICD-10 - E21.3) MBD parameters are within the goal. No need for calcitriol. Aug, Nephrolithiasis (ICD -10 - N20.0) He denies any recent passage of the kidney stones. I have advised him to adequately hydrate himself. [employer] Other 11-01-2021 Evaluation note* Encounter Date Diagnosis Assessment Notes Treatment Notes Treatment Clinical Notes Aug, Chronic kidney disease, stage III (moderate) (ICD-10 - N18.30) [employer] Other 10-25-2021 Evaluation note* Encounter Date Diagnosis Assessment Notes Treatment Notes Treatment Clinical Notes Jul, CKD (chronic kidney disease) stage 4, GFR 15-29 ml/min (ICD-10 - N18.4) [employer] Other 10-15-2021 NoteMR#: [id number] I [facility] Pt. Name: Leander Massey Admitted: 07/22/2021 Discharged: 07/23/2021 Date of : 1970 Physician: Jenna Avila M.D. DISCHARGE SUMMARY PRINCIPAL DIAGNOSIS: Left carotid artery stenosis. SECONDARY DIAGNOSES: Thyroid enlargement, hypothyroidism, hypertension, and hyperlipidemia. HOSPITAL COURSE: The patient is a 50-year-old male who presented to the hospital for planned left carotid endarterectomy for carotid artery stenosis. He underwent left CEA by Dr. Avila on 07/22, after which he was admitted to the ICU postoperatively for blood pressure management and close neurologic monitoring. Blood pressure was elevated on day of surgery as well as after for which patient was on a Cardene drip. This was weaned overnight into the morning with blood pressure controlled on home medications once resumed oral antihypertensives. Neurologic exam revealed intact neurologic status without any evidence of postoperative deficits. Art line and Paredes were discontinued. The patient was able to void spontaneously as well as ambulate with nursing staff. Of note, the patient did have intraoperative finding of hemorrhage left side of the thyroid where biopsy was taken and results were pending at time of discharge. It was found that the patient was stable to discharge home on postop day 1, as such he was discharged to the care of family. DISCHARGE INSTRUCTIONS: The patient was instructed not to drive for at least 10-14 days postoperatively. He was instructed to continue aspirin, Plavix, and statin daily as well as monitor himself for signs of stroke or TIA. With regard to the lesions of large thyroid, we will follow up biopsy results at postoperative appointment, additionally ultrasound of thyroid was ordered and he should follow up with General Surgery. Dr. De Souza was consulted intraoperatively. Discussed low-cholesterol diet to the patient. He may begin to shower postoperative day 2, should not lift greater than 10 pounds. For left neck, he should wash daily with soap and water and cover with dry gauze and tape or leave open to air. He should follow up with General Surgery in 2-3 weeks as well as in Vascular Clinic as scheduled for 08/03 at 1:40 p.m. DISCHARGE MEDICATIONS: 1. Amlodipine 10 mg daily. 2. Aspirin 81 mg daily. 3. Atenolol 100 mg daily. 4. Atorvastatin 40 mg q.h.s. 5. Clonidine HCL 0.3 mg b.i.d. 6. Lisinopril 20 mg daily. 7. Plavix 75 mg daily. 8. Synthroid 100 mcg tablets daily. 9. Hydrocodone 5-acetaminophen 325 mg tablet q.6 hours p.r.n. postoperative pain. Electronically Signed by: Jenna Avila M.D. 08/10/2021 12:16 P Jenna Avila M.D. I personally saw this patient on the day of the encounter, performed the bridges portion(s) of the service and participated in the management and confirm the resident's documentation. Please note there may be an additional personal documentation from me. Date Dict: 07/28/2021/03:29 P/Shivani Coffey PA-C Date Trans: 07/29/2021 07:54 A/jacob [id number]10-14-2021 Evaluation note* Encounter Date Diagnosis Assessment Notes Treatment Notes Treatment Clinical Notes Jul, Cerebrovascular accident (CVA) due to other mechanism (ICD-10 - I63.89) Jul, Essential (primary) hypertension (ICD-10 - I10) Continue current medication and keep Dr Mayo informed about blood pressures and ordered. Jul, Autoimmune thyroidit is (ICD-10 - E06.3) Jul, DDD (degenerative di sc disease), cervical (ICD-10 - M50.30) [employer] Other 10-07-2021 Evaluation note* Encounter Date Diagnosis Assessment Notes Treatment Notes Treatment Clinical Notes Jul, Aidan hy kid w cr kid I-IV (ICD-10 - I12.9) Blood pressure is high but appears to be euvolemic. Continue oral amlodipine 10 mg daily, clonidine. Stop Lasix due to the hypovolemia and atenolol as it renally cleared. I have increased the clonidine 0.3 mg p.o. daily twice daily started next week I have also prescribed him carvedilol 6.25 mg twice daily starting next week. I have advised him not to change any of his medications perioperatively. I have advised him to call weekly with the blood pressure readings and medication he is taking. Also advised him to do renal function weekly. I explained to him the potential risk of self medications and poor compliance with recommendations. Jul, Chronic kidney disea se, stage III (moderate) (ICD-10 - N18.30) He has a longstanding CKD due to the hypertension with baseline creatinine 2 mg/dL. His serum creatinine is above his baseline possibly due to the hypovolemia. I have advised him to stop Lasix. I would recommend to give fluid resuscitation during perioperative. He recently had DANIEL required hemodialysis due to the ATN and NSAID induced AIN. I have explained the potential risk of DANIEL and possible need of dialysis due to the hemodynamic changes perioperatively. I discussed with the patient's PCP and was my concern about his behavior. I also offered the PCP to contact me directly if she needs any help regarding patient's CKD or HTN management. Jul, Anemia of renal dise ase (ICD-10 - D63.1) Hemoglobin is within the goal. Will check iron studies. Jul, Vitamin D deficiency (ICD-10 - E55.9) He has a vitamin D deficiency and currently takes oral vitamin D Jul, Hyperparathyroidism (ICD-10 - E21.3) Calcium within the goal. will check vitamin D and PTH. Jul, Nephrolithiasis (ICD -10 - N20.0) He denies any recent passage of the kidney stones. I have advised him to adequately hydrate himself. [employer] Other 09-01-2021 History of Present illness Narrative* 07/13/21: * 50 year old male here for initial evaluation after left hemispheric stroke in June 2021. His symptoms included chest palpations, light headed, weakness in arm and was unable to produce speech, these symptoms last about 3-4 minutes. No recurrence of symptoms since then. He smokes 1 pack/day. Hehad right visual field disturbance in both eyes, but has since resolved. In March, he had complete kidney failure. He was on dialysis and his kidney function came back to 40%. His blood pressure has been abnormal since leaving hospital, currently at 160/90. He takes aspirin 81mg, Atorvastatin and Plavix. He is nervous for upcoming CEA surgery and being under anesthesia. [id number] Work Phone: chiig complaint Narrative - Reported* The patient presents to the office today for an initial evaluation. * Recent stroke [id number] Work Phone: consult note Author Toby Venegas [facility] January 09, 2024 11:25am Note Date/Time January 09, 2024 11: 25am [facility] [address] [place] [address] Nephrology Consult Note Signed Patient: Leander Massey MR#: [id number] : 1970 Acct:[id number] Age/Sex: 53 / M Adm Date: 4 Loc: Room: 3B1912-5 Type: ADM IN Attending Dr: Jersey Sharp MD Copies to: MD Jersey Mehta MD Stephanie Breault, FNP-BC~ Providers Consult Date: 01/09/24 Requesting Provider: Jersey Sharp MD Primary Care Provider: TOMÁS Jay HPI Reason for Consult: Hyperkalemia and volume overload History of Present Illness: Mr. Massey is a 53-year-old white gentleman with history of ESRD related to HTN onhemodialysis since February 2022. Patient currently gets dialysis at [facility] on TTS schedule. Last hemodialysis was on Thursday 01/04 and he was supposed to have dialysis yesterday however he has an appointment with the physician and he moved his dialysis to the following day Sunday morning. Apparently, patient developed significant shortness of breath and he presented to [facility] for evaluation. He was found to be hypoxemic with pulse ox 72% on 5 L oxygen and he was immediately started on BiPAP. Chest x-ray showed bilateral perihilar opacities with pulmonary edema. Potassium was elevated 6.5 mEq/L. Patient had urgent treatment for hyperkalemia and he was transferred to [facility] for urgent dialysis. On arrival, repeat potassium was even up to 7.1 mEq/L. Nephrology was consulted overnight and emergent hemodialysis was arranged overnight and he was just done with dialysis at 4:30 AM this morning. Patient already had 4 hours of hemodialysis with 4 L fluid removal. Blood pressure did improve from 170s to 180s down to 152. Patient is being seen and examined in his room. He feels comfortable with pulseox 98% room air. He has trace edema. Potassium has improved down to 3.5 mmol/L. Creatinine down to 5.4 with no acidosis. Patient is scheduled for regular hemodialysis tomorrow at 6 AM and he feels comfortable to go home. Patient currently denies any chest pain. No fever or chills. He used to have some residual urine output however it has declined recently and he is mainly dependent on dialysis for fluid removal. Review of Systems Review of Systems All other systems reviewed & are negative unless noted below or in HPI [facility] Medical History Arteriovenous fistula of left upper extremity failed Hypothyroid Hyperlipidemia TIA (transient ischemic attack) Hypertension Chronic kidney disease Surgical History H/O carotid endarterectomy left History of appendectomy Family History Brother Hypertension Legacy FamHx Relation: Brother(s) Family history of mental disorder Legacy FamHx Relation: Brother(s); Legacy FamHx Problem: Diagnosed with Mental Illness Father History of stroke Legacy FamHx Problem: Diagnosed with Stroke Hypertension Family history of mental disorder Legacy FamHx Problem: Diagnosed with Mental Illness Family/Other Legacy FamHx Problem: 1 SISTER SUICIDE Mother COPD (chronic obstructive pulmonary disease) Family history of mental disorder Legacy FamHx Problem: Diagnosed with Mental Illness Heart disease Sister Family history of mental disorder Legacy FamHx Problem: Diagnosed with Mental Illness Other CAD (coronary artery disease) Social History Smoking Status: Current every day smoker Tobacco Type: cigarettes Substance Use Type: None Social History Comments: mobile home Meds Medications & Allergies Allergies Iodinated Contrast Media Allergy (Unknown, Verified 11/14/23 14:00) No Known Allergies Allergy (Verified 06/11/23 12:20) Home Medications atorvastatin 40 mg tablet (Lipitor) 40 mg PO DAILY 12/05/21 [History Confirmed 01/08/24] carvedilol 25 mg tablet (Coreg) 25 mg PO BID 12/05/21 [History Confirmed 01/08/24] sevelamer carbonate 800 mg tablet (Renvela) 1,600 mg PO TIDWM 07/11/22 [History Confirmed 01/08/24] hydralazine 100 mg tablet 100 mg PO BID 08/24/22 [History Confirmed 01/08/24] vitamin B complex-vitamin C-folic acid 0.8 mg tablet (Nephro-Vianca) 1 tab PO DAILY 03/01/23 [History Confirmed 01/08/24] gabapentin 300 mg capsule 300 mg PO BID 05/22/23 [History Confirmed 01/08/24] levothyroxine 112 mcg tablet 100 mcg PO DAILY 05/22/23 [History Confirmed 01/09/24] minoxidil 10 mg tablet 10 mg PO BID 05/22/23 [History Confirmed 01/08/24] amlodipine 5 mg tablet 5 mg PO DAILY #30 tabs 01/09/24 [Rx] lisinopril 10 mg tablet 10 mg PO DAILY #30 tabs 01/09/24 [Rx] Active Medications: Active Medications Acetaminophen (Acetaminophen 325 Mg Tablet) 650 mg PO Q6HR PRN PRN Reason: Fever Stop: 01/07/25 22:13 Albuterol (Albuterol Neb 2.5 Mg/3 Ml Vial.Neb) 2.5 mg INHALATION Q3H PRN PRN Reason: Shortness Of Breath Stop: 01/07/25 22:13 Atorvastatin Calcium (Atorvastatin 40 Mg Tablet) 40 mg PO DAILY SHANON Stop: 01/08/25 08:59 Last Admin: 01/09/24 08:30 Dose: 40 mg Carvedilol (Carvedilol 25 Mg Tablet) 25 mg PO BID SHANON Stop: 01/07/25 22:20 Last Admin: 01/09/24 08:30 Dose: 25 mg Gabapentin (Gabapentin 300 Mg Capsule) 300 mg PO BID SHANON Stop: 01/07/25 22:20 Last Admin: 01/09/24 08:29 Dose: 300 mg Heparin Sodium (Porcine) (Heparin 5,000 Unit/Ml Vial) 5,000 unit SUBCUT Q12HR SHANON Stop: 01/08/25 08:59 Last Admin: 01/09/24 08:29 Dose: 5,000 unit Heparin Sodium (Porcine) (Heparin 10,000 Unit/10 Ml Vial) 4,000 unit IV PRN PRN PRN Reason: Dialysis Stop: 01/07/25 22:58 Last Admin: 01/09/24 00:37 Dose: 4,000 unit Heparin Sodium (Porcine) (Heparin 10,000 Unit/10 Ml Vial) 4,000 unit IV PRN PRN PRN Reason: Dialysis Stop: 01/07/25 22:58 Last Admin: 01/09/24 00:37 Dose: 4,000 unit Hydralazine HCl (Hydralazine 50 Mg Tablet) 100 mg PO BID SHANON Stop: 01/07/25 23:44 Last Admin: 01/09/24 08:30 Dose: 100 mg Sodium Chloride (0.9% Sodium Chloride 1,000 Ml) 1,000 mls @ 0 mls/hr MISCELLANE .Q0M PRN PRN Reason: Dialysis Stop: 01/07/25 22:58 Last Infusion: 01/09/24 00:39 Dose: Infused Levothyroxine Sodium (Levothyroxine 100 Mcg Tablet) 100 mcg PO DAILY@0630 SHANON Stop: 01/08/25 06:29 Last Admin: 01/09/24 05:29 Dose: 100 mcg Minoxidil (Minoxidil 2.5 Mg Tablet) 10 mg PO BID SHANON Stop: 01/07/25 23:29 Last Admin: 01/09/24 08:29 Dose: 10 mg Sevelamer Carbonate (Sevelamer Carbonate 800 Mg Tablet) 1,600 mg PO TID.WITH.MEALS SHANON Stop: 01/08/25 07:59 Last Admin: 01/09/24 08:30 Dose: 1,600 mg Sodium Chloride (Sodium Chloride 0.9 % 10 Ml Syringe) 0 ml IV-PUSH PRN PRN PRN Reason: Flush Stop: 01/07/25 22:58 Last Admin: 01/09/24 00:38 Dose: 10 ml Exam Physical Exam Vital Signs: Temp Pulse Resp BP Pulse Ox O2 Del Method O2 Flow Rate 36.7 C 78 19 152/80 H 99 Nasal Cannula 2 01/09/24 08:00 01/09/24 10:00 01/09/24 10:00 01/09/24 10:00 01/09/24 10:00 01/09/24 10:00 01/09/24 10:00 FiO2 30 01/09/24 05:19 Narrative: Constitutional: Moderately obese, respiratory distress has markedly improved and he is currently on room air. HEENT: Head with atraumatic, normal cephalic. He has mild pallor with no jaundice or cyanosis. Cardiovascular: Distant heart sound, RRR, normal S1-S2, no gallop or rub, No JVD Respiratory: Adequate air entry with no wheezes or crackles. Gastrointestinal: Soft, non tender, positive bowel sounds. No palpable organs or masses Extremities: Edema has markedly improved Skin: No rashes or bruises Musculoskeletal: No joints swellings or inflammation Neurology: Awake, alert, oriented ?3, No focal motor or sensory deficits Psych: Normal mood and affect Vascular access: Left forearm AV graft with good thrill Results - Nephrology Labs 01/09/24 04:37 01/09/24 04:37 Labs: 01/08/24 01/09/24 22:24 04:37 BUN 67 H 21 D Creatinine 13.26 H 5.40 H D Albumin 3.9 4.2 Radiology Impressions Impressions - last 24 hours: Any impression(s) listed above is documentation that was entered by the reading physician into a diagnostic report(s) for Leander Massey. I have reviewed the report(s) and am incorporating any findings in the treatment plan of this patient where applicable. ECG Data Attestation: I reviewed this ECG and interpreted as documented below: ECG Narrative: Normal sinus rhythm, left atrial enlargement A&P - Nephrology Assessment/Plan (1) End-stage renal disease needing dialysis: Assessment/Problem Details: He has ESRD related to hypertensive nephrosclerosis on hemodialysis since February 2022 currently gets dialysis at [facility] on TTS schedule. Patient rescheduled on hemodialysis on Sunday and he was not able to wait until Sunday because of shortness of breath and (2) Hyperkalemia: Assessment/Problem Details: Potassium was up to 7.1 mEq/L. Patient already on 1K bath dialyzate as outpatient. (3) Hypertensive kidney disease with chronic kidney disease stage V: Assessment/Problem Details: Patient has edema, elevated blood pressure and CHF on admission. (4) Acute and chronic respiratory failure with hypoxia: Assessment/Problem Details: Patient had hypoxemia on admission because of volume overload and CHF. (5) Anemia of renal disease: Assessment/Problem Details: Hemoglobin did drop down to 8.7 g/dL however it is stable and actually increased over the last 4 weeks on erythropoietin as outpatient Plan * Patient already had 4 hours of hemodialysis, 1K bath with 4 L was removed overnight. He still mildly hypervolemic however he is feels comfortable. Importance of fluid restriction and low potassium diet has been addressed. He really had list of low potassium diet at home and will enforce it as outpatient on dialysis. Also the patient was advised not to reschedule physician appointment on Tuesdays after the weekend and it is better to have physician appointment on if possible to avoid recurrent admission for CHF and hyperkalemia. * I will add furosemide 40 mg p.o. twice a day at the patient to maximize his urine output and decrease the chance of recurrent hyperkalemia and volume overload. He still has some residual urine output * Continue paricalcitol 5 mcg with each hemodialysis. * Hemoglobin still below target. Patient will continue Aranesp and IV iron with dialysis to be adjusted to keep hemoglobin between 9.5 and 11 g/dL. * All his medication were reviewed. Continue blood pressure medication carvedilol and minoxidil. He used to be on lisinopril and amlodipine that can be added if needed however will maximize ultrafiltration for better blood pressure control. Patient can be discharged home from renal point of view if no other issues pending. He feels comfortable and he said that for outpatient hemodialysis tomorrow at 6 AM. I appreciate this consultation we will be happy to follow the patient with you during hospital stay. This document was dictated utilizing computerized voice recognition technology. Errors in grammar, spelling, and or syntax may be noted. The creator of this document does not proofread for this. Documented By: Toby Venegas MD 01/09/24 1108 Signed By: <Electronically signed by MD Toby Venegas> 01/09/24 1125 [facility] Work Phone: Evaluation noteNo Assessments Information Available [facility] [employer] Other Evaluation noteNo assessment information available [facility] Work Phone: Evaluation note* Diagnosis Onset Date Resolution Status Cellulitis acute End-stage renal disease needing dialysis acute Hyperlipidemia acute Hypertension acute Hypertensive kidney disease with chronic kidney disease stage V acute Hypothyroid acute Secondary hyperparathyroidism acute [facility] Work Phone: Evaluation note* Diagnosis Onset Date Resolution Status Acute and chronic respiratory failure with hypoxia acute Acute hyperkalemia acute Acute pulmonary edema acute Anemia of renal disease acut e End-stage renal disease needing dialysis acute Hyperkalemia acute Hypertensive kidney disease with chronic kidney disease stage V acute Leukocytosis acute [facility] Work Phone: Evaluation note* Diagnosis Onset Date Resolution Status Acute and chronic respiratory failure with hypoxia acute Acute hyperkalemia acute Acute pulmonary edema acute Anemia of renal disease acut e End-stage renal disease needing dialysis acute Hyperkalemia acute Hypertensive kidney disease with chronic kidney disease stage V acute [facility] Work Phone: history general Narrative - Reported* Type Description Date Medical History hashimotos thyroiditis Medical History hypertension Medical History vitamin D deficiency Medical History hyperlipidemia Medical History SLEEP APNEA Medical History CKD Medical History Acute Kidney Injury with dialysis from [id number] 15,2021 Medical History MINI STROKE Surgical History appendectomy Surgical History cataract surgery RIGHT EYE 2017 Surgical History port in chest 03/2021 Surgical History PORT REMOVED FROM CHEST 05/2021 Hospitalization History low potassium 2017 Hospitalization History SEE ABOVE Hospitalization History kidney issues Be [facility] and [facility] for 7 days 03/2021 [employer] Other history general Narrative - Reported* Type Description Date Medical History hashimotos thyroiditis Medical History hypertension Medical History vitamin D deficiency Medical History hyperlipidemia Medical History SLEEP APNEA Medical History CKD Medical History Acute Kidney Injury with dialysis from [id number] 15,2021 Medical History MINI STROKE Surgical History appendectomy Surgical History cataract surgery RIGHT EYE 2017 Surgical History port in chest 03/2021 Surgical History PORT REMOVED FROM CHEST 05/2021 Surgical History carotid endarterectomy 2020 Hospitalization History low potassium 2017 Hospitalization History SEE ABOVE Hospitalization History kidney issues Be [facility] and [facility] for 7 days 03/2021 [employer] Other history general Narrative - Reported* Type Description Date Medical History hashimotos thyroiditis Medical History hypertension Medical History vitamin D deficiency Medical History hyperlipidemia Medical History SLEEP APNEA Medical History CKD Medical History Acute Kidney Injury with dialysis from [id number] 15,2021 Medical History MINI STROKE Surgical History appendectomy Surgical History cataract surgery RIGHT EYE 2017 Surgical History port in chest 03/2021 Surgical History PORT REMOVED FROM CHEST 05/2021 Surgical History LEFT carotid endarterectomy 202 1 Hospitalization History low potassium 2016 Hospitalization History SEE ABOVE Hospitalization History kidney issues Be [facility] and [facility] for 7 days 03/2021 Hospitalization History LEFT CAROTID ENDARTERECT HUMA 07/2021 [employer] Other history general Narrative - Reported* Type Description Date Medical History hashimotos thyroiditis Medical History hypertension Medical History vitamin D deficiency Medical History hyperlipidemia Medical History SLEEP APNEA Medical History CKD Medical History Acute Kidney Injury with dialysis from [id number] 15,2021 Medical History MINI STROKE Surgical History appendectomy Surgical History cataract surgery RIGHT EYE 2016 Surgical History port in chest 03/2021 Surgical History PORT REMOVED FROM CHEST 05/2021 Surgical History LEFT carotid endarterectomy 202 1 Hospitalization History low potassium 2016 Hospitalization History SEE ABOVE Hospitalization History kidney issues Be [facility] and [facility] for 7 days 03/2021 Hospitalization History LEFT CAROTID ENDARTERECT HUMA 07/2021 Hospitalization History kidney issues 12/06 [employer] 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 - Reported* Type Description Date Medical History hashimotos thyroiditis Medical History hypertension Medical History vitamin D deficiency Medical History hyperlipidemia Medical History SLEEP APNEA Medical History CKD Medical History Acute Kidney Injury with dialysis from [id number] 15,2021 Medical History MINI STROKE Surgical History appendectomy Surgical History cataract surgery RIGHT EYE 2016 Surgical History port in chest 03/2021 Surgical History PORT REMOVED FROM CHEST 05/2021 Surgical History LEFT carotid endarterectomy 202 1 Surgical History hd port placement 01/03 Hospitalization History low potassium 2016 Hospitalization History SEE ABOVE Hospitalization History kidney issues Be [facility] and [facility] for 7 days 03/2021 Hospitalization History LEFT CAROTID ENDARTERECT HUMA 07/2021 Hospitalization History kidney issues 12/06 [employer] Other history general Narrative - Reported* Type Description Date Medical History hashimotos thyroiditis Medical History hypertension Medical History vitamin D deficiency Medical History hyperlipidemia Medical History SLEEP APNEA Medical History CKD Medical History Acute Kidney Injury with dialysis from [id number] 15,2021 Medical History MINI STROKE Surgical History appendectomy Surgical History cataract surgery RIGHT EYE 2016 Surgical History port in chest 03/2021 Surgical History PORT REMOVED FROM CHEST 05/2021 Surgical History LEFT carotid endarterectomy 202 1 Surgical History hd port placement 01/03 Hospitalization History low potassium 2016 Hospitalization History SEE ABOVE Hospitalization History kidney issues Be [facility] and [facility] for 7 days 03/2021 Hospitalization History LEFT CAROTID ENDARTERECT HUMA 07/2021 Hospitalization History kidney issues 12/06 Hospitalization History Kidney 02/19/20 [employer] Other history general Narrative - Reported* Type Description Date Medical History hashimotos thyroiditis Medical History hypertension Medical History vitamin D deficiency Medical History hyperlipidemia Medical History SLEEP APNEA Medical History CKD Medical History Acute Kidney Injury with dialysis from [id number] 15,2021 Medical History MINI STROKE Surgical History appendectomy Surgical History cataract surgery RIGHT EYE 2017 Surgical History port in chest 03/2021 Surgical History PORT REMOVED FROM CHEST 05/2021 Surgical History LEFT carotid endarterectomy 06/16 021 Surgical History hd port placement 01/03 Hospitalization History low potassium 2016 Hospitalization History SEE ABOVE Hospitalization History kidney issues Be [facility] and [facility] for 7 days 03/2021 Hospitalization History LEFT CAROTID ENDARTERECT HUMA 07/2021 Hospitalization History kidney issues 12/06 Hospitalization History Kidney 02/19/20 [employer] Other Hisyody general Narrative - Reported* Type Description Date Medical History hashimotos thyroiditis Medical History hypertension Medical History vitamin D deficiency Medical History hyperlipidemia Medical History SLEEP APNEA Medical History CKD Medical History Acute Kidney Injury with dialysis from [id number] 15,2021 Medical History MINI STROKE Surgical History appendectomy Surgical History cataract surgery RIGHT EYE 2016 Surgical History port in chest 03/2021 Surgical History PORT REMOVED FROM CHEST 05/2021 Surgical History LEFT carotid endarterectomy 06/16 021 Surgical History hd port placement 01/03 Surgical History LEFT ARM AVF CREATION 06/2022 Hospitalization History low potassium 2016 Hospitalization History SEE ABOVE Hospitalization History kidney issues Be [facility] and [facility] for 7 days 03/2021 Hospitalization History LEFT CAROTID ENDARTERECT HUMA 07/2021 Hospitalization History kidney issues 12/06 Hospitalization History Kidney 02/19/20 [employer] Other [employer] general Narrative - Reported* Type Description Date Medical History hashimotos thyroiditis Medical History hypertension Medical History vitamin D deficiency Medical History hyperlipidemia Medical History SLEEP APNEA Medical History CKD Medical History Acute Kidney Injury with dialysis from [id number] 15,2021 Medical History MINI STROKE Medical History neuropathy Medical History hypothyroidism Surgical History appendectomy Surgical History cataract surgery RIGHT EYE 2017 Surgical History port in chest 03/2021 Surgical History PORT REMOVED FROM CHEST 05/2021 Surgical History LEFT carotid endarterectomy 06/16 021 Surgical History hd port placement 01/03 Surgical History LEFT ARM AVF CREATION 06/2022 Hospitalization History low potassium 2016 Hospitalization History SEE ABOVE Hospitalization History kidney issues Be [facility] and [facility] for 7 days 03/2021 Hospitalization History LEFT CAROTID ENDARTERECT HUMA 07/2021 Hospitalization History kidney issues 12/06 Hospitalization History Kidney 02/19/20 [employer] Other Hospital Discharge instructions Additional Instructions DISCHARGE INSTRUCTIONS- TAKING CARE OF YOUR FISTULA OR GRAFT You have a: [?fistula, ?graft] A fistula or graft (both called an access) was created to provide an adequate blood flow for dialysis. Dialysis is a process to clean your blood of waste products and remove fluid. You need to take care of your fistula or graft to keep it working well and to watch for problems such as blood clots or infection. Please wash your access site prior to dialysis and wear clothing to dialysis that allows easy access to your graft or fistula. CARE OF YOUR ACCESS Check your fistula or graft at least every day. It should be buzzing . This is called a thrill and is caused by blood flowing through the fistula or graft. If blood clots form in your access this blood flow is blocked and you will not feel the buzz . Please check with your physician if you cannot Feel the Thrill . PRECAUTIONS: The goal is to avoid activities that might decrease the blood flow or damage your new access. 1. Tell others that you have a fistula or graft. -Do NOT let anyone take your blood pressure or draw blood work in your fistula or graft arm. -Do NOT let anyone put name bands on this arm. 2. Keep it clean. Scratching is off-limits. 3. DO NOT use your fistula or graft as a pillow. DO NOT sleep with your arm under your head. 4. Avoid carrying items like purses and packages on your arm. Use your other arm to carry heavy items. 5. Avoid wearing clothes with tight sleeves or stretch bands at the wrist. DO NOT wear a watch on this arm. 6. If you have access in your leg: -Avoid underwear with tight bands of the legs. -Avoid heavy pressure on the graft leg such as the weight of a child or heavy item pressing on the graft. WATCH FOR INFECTION -At times, a fistula or graft can become infected. Check your fistula or graft at least once a day for infection. SIGNS OF INFECTION ARE: -Redness or warmth in the skin area over the fistula or graft -Swelling and soreness of the skin -A fever of over 100 degrees F -Drainage from fistula or graft site SPECIAL CARE FOR THOSE WITH A FISTULA ONLY -Over time usually in 1-4 months the vein in your arm near the surgery site will enlarge or mature. The bigger the vein becomes, the easier it will be to use for dialysis. -Making a fist or squeezing a rubber ball or hand lofter increases the blood flow to your fistula helping it to work better and mature faster. Try squeezing the ball during the commercials while watching TV. As a general guideline exercise can be started in 3 weeks after your fistula is placed. WHEN TO CALL YOUR DOCTOR -If you CANNOT feel the buzzing or hear it with a stethoscope, do not wait! CALL YOUR DOCTOR IMMEDIATELY SO IT CAN BE CHECKED. -If you have signs of infection, consult your physician. -Get to know your fistula or graft. Report any changes in how it sounds, feels, or looks! IMPORTANT NUMBERS -[facility] [phone] -[facility] [phone] -Nephrology [phone] -Vascular [phone] FOLLOW UP -Call your physician to schedule a post-operative appointment. [facility] Work Phone: Hospital Discharge instructions Additional Instructions I may not have addressed or treated all of your medical illnesses or the abnormal blood work or imaging studies during this hospitalization. Please ask your primary care provider to obtain [facility] records entirely to follow up on all of the abnormal physical, laboratory, and imaging findings that I have not addressed. Please return back to the emergency room or seek medical attention if your symptoms worsen or return. Discharging you from [facility] does not mean that your medical care ends here and now. You may still need additional monitoring, work up, investigation, and treatment plan to be handled from this point on by out patient providers including your primary care provider and specialists. For any medication question, please contact your retail pharmacist or your primary care provider. Thank you. Continue hemodialysis treatments as before.[facility] Work Phone: Reason for visit NarrativeF/U TO DISCUSS CAROTID US RESULTS AND DISCUSS LEFT UE AVF PROCEDURENort [employer] Other Summary Purpose Family History No Family History Records Found Relationship Condition Age at Onset Recorded Date/T luca Not Specified Coronary artery disease Unknown Relationship Condition Age at Onset Recorded Date/T luca Not Specified Coronary artery disease Unknown brother Hypertension Unknown Family history of mental disorder Unknown father History of stroke Unknown Hypertension Unknown Unknown family member Unknown Not Specified Chronic obstructive pulmonary disease Un known Heart disease Unknown sister Family history of mental disorder Unknown Advance Directives No Advanced Directives Records Found Advance Directive Response Recorded Date/ Time Advance Directives No April 05 3:22pm Advance Directive Response Recorded Date/ Time Advance Directives No April 05 2:22pm Chief Complaint and Reason for Visit Chief Complaint R06.83 Chief Complaint R06.83 r06.83 Chief Complaint ESRD ESRD Chief Complaint ESRD ESRD ESRD Chief Complaint ESRD ESRD ESRD ESRD Chief Complaint Cellulitis ESRD Reason for Visit Cellulitis End-stage renal disease needing dialysis Hyperlipidemia Hypertension Hypertensive kidney disease with chronic kidney disease stage V Hypothyroid Secondary hyperparathyroidism Chief Complaint E87.5 E87.5 Chief Complaint E87.5 E87.5 E87.5 Pulmonary Edema Hyperglycemia Pulmonary Edema Hyperglycemia Pulmonary Edema Hyperglycemia Pulmonary Edema Hyperglycemia Reason for Visit Acute and chronic re spiratory failure with hypoxia Acute hyperkalemia Acute pulmonary edema Anemia of renal disease End-stage renal disease needing dialysis Hyperkalemia Hypertensive kidney disease with chronic kidney disease stage V Leukocytosis Chief Complaint Pulmonary Edema Hy perglycemia Pulmonary Edema Hyperglycemia Pulmonary Edema Hyperglycemia Pulmonary Edema Hyperglycemia e87.5 Reason for Visit Acute and chronic re spiratory failure with hypoxia Acute hyperkalemia Acute pulmonary edema Anemia of renal disease End-stage renal disease needing dialysis Hyperkalemia Hypertensive kidney disease with chronic kidney disease stage V Assessments No Assessments Information Available Reason for Referral Reason Eval and treat for p lantar warts on left foot Diagnosis 1 Plantar wart of left foot (B07.0) Referral Organization [facility] Infectious Dis ease Referring Provider First Name Live Referring Provider Last Name Wendy Referring Provider Specialty Infectious Disease Referred Organization [facility] Referred Provider Perez Stark Referred Address ,[place], [place],[address] Referred Provider Specialty Unknown Referral Priority Routine Reason 01/09/23 @ 2:35pm cyst on lower lumbar area x 1 year Diagnosis 1 Sebaceous cyst (L72. 3) Referral Organization [facility] Family Medicin e Jalil Referring Provider First Name Shantell Referring Provider Last Name Sea Referring Provider Specialty Nurse Blanca tovar Referred Organization [facility] Referred Provider Fitz Henson Referred Address ,[place], [place],[address] Referred Provider Specialty Dermatology Referral Priority Routine Referral Appointment Date 2023-01-09 General Notes Fore, Beverly M 023 10:37:12 AM >Received today and waiting for office notes to be locked before sending referral Beverly Adamson 12/06/2022 07:19:19 AM >[facility] Dermatology office request us to send the referral P2P to them and they will call and schedule patient. Referral was sent P2P Beverly Adamson 12/13/2022 08:41:51 AM >Fax letter for appt update Beverly Adamson 12/13/2022 12:57:57 PM >Received letter back with appt Reason 01/10/23 @ [facility] janelle corina needs colonoscopy for cancer screening. Diagnosis 1 Colon cancer screeni ng (Z12.11) Referral Organization [facility] Family Medicin e Jalil Referring Provider First Name Shantell Referring Provider Last Name Sea Referring Provider Specialty Nurse Pracarely itioner Referred Organization [facility] Gastroenterolo gy Referred Provider Klaus Ford Referred Address [address] [place] [phone] Referred Provider Specialty Gastroentero logy Referral Priority Routine Referral Appointment Date 2023-01-10 General Notes Beverly Adamson 023 12:14:10 PM >Received today and sent P2P Beverly Adamson 12/13/2022 12:59:02 PM >Patient has been scheduled Additional Source Comments (unrecognized sect ion and content) No Status Records FoundNo Status Records FoundNo Status Records FoundNo Status Records FoundNo Status Records FoundNo Status Records FoundNo Status Records FoundNo Status Records Found INFORMATION SOURCE (unrecogn ized section and content) DATE CREATED [facility] DATE CREATED AUTHOR AUTHOR'S ORGANIZ ATION 07/14/2021 [employer] DATE CREATED AUTHOR AUTHOR'S ORGANIZ ATION 05/23/[address] [facility] DATE CREATED AUTHOR AUTHOR'S ORGANIZ ATION 08/21/2022 [facility] DATE CREATED AUTHOR AUTHOR'S ORGANIZ ATION 10/13/2023 [facility] DATE CREATED AUTHOR AUTHOR'S ORGANIZ ATION 02/28/2024 [facility] DATE CREATED AUTHOR AUTHOR'S ORGANIZ ATION 05/01/2024 [facility] DATE CREATED AUTHOR AUTHOR'S ORGANIZ ATION 05/21/2024 [facility] REASON FOR VISIT (unrecogniz ed section and content) CKDENLARGED THYROID, Jalil T hyroidBP READINGSClinicalCKDCONTINUE TO TAKE IRON MEDCKD and HTNNo InformationBLOOD PRESSURENo InformationORDER LABS?ClinicalNo InformationClinicalClinicalClinicalClinicalNo InformationClinicalCKDCKDNo InformationNEEDS AV ACCESS; VEIN MAPPING AT 8:30AScheduleNo InformationNo InformationFYI - SENDING PT TO ERClinicalReferral-VascularNo InformationNo InformationENT Referral UpdateCATH REMOVALHIGH BPRENAL F/U DIALYSIS ON HOLDClinicalsurgeryBPClinicalHOSPITAL ADMISSION F/Susana InformationNo InformationNo InformationNo InformationLEFT LOWER BACK PAIN, RADIATING DOWN LEFT LEG, TROUBLE STANDINGmedicationNEEDS TO SCHEDULE SURGERY, BUT HAS A FEW MORE QUESTIONSCovid Test3 WEEK SURGICAL FOLLOW UP, Follow-up left AV fistulaHOSP F/U, 6 MONTH FOLLOW UP; CAROTID DUPLEX 8:30AFYI: Muercek Referral4 WK POST AVG PLACEMENTNo InformationMED CHECKMAIL PPWBOWEL PREPRASH AND BLISTERS ON BOTH HANDSNo InformationNo Information Care Teams (unrecognized sec tion and content) Team Status: Active Member Role Status Dates Shantell Osei [facility] Primary Care Provider Activ e Team Status: Active Member Role Status Dates PHYSICIAN NO FAMILY Primary Care Provider Active Start: December 11, 2023 Junior Mayo MD Attending Provider Active Start : December 11, 2023 Team Status: Active Member Role Status D[facility] Care Provider Activ e Start: January 06, 2024 Junior Mayo MD Attending Provider Active Start : January 06, 2024 Team Status: Inactive Member Role Status Dates Shantell Osei [facility] Primary Care Provider Activ e Start: January 08, 2024 End: January 09, 2024 Toby Venegas MD Other Provider Active Start: Marcelo [facility]ona 2023 End: January 09, 2024 AINSLEY Don Other Provider Active Start: January 08, 2024 End: January 09, 2024 Junior Mayo MD Other Provider Active Start: [facility] 2023 End: January 09, 2024 Baudilio Hoyos MD Other Provider Active Star t: January 08, 2024 End: January 09, 2024 Raul Malave MD Other Provider Active Start: January 08, 2024 End: January 09, 2024 Iván Govea MD Other Provider Active Start: [facility] 2023 End: January 09, 2024 Percy Herrera MD Admit Provider Active S tart: January 08, 2024 End: January 09, 2024 Jersey Sharp MD Attending Provider Active Sta rt: January 08, 2024 End: January 09, 2024 Team Status: Active Member Role Status Dates Shantell Osei [facility] Primary Care Provider Activ e Start: January 08, 2024 End: January 09, 2024 Jose Luis Musa MD Admit Provider, Othe r Provider Active Start: January 08, 2024 End: January 09, 2024 Percy Herrera MD Attending Provider Active Start: January 08, 2024 End: January 09, 2024 Martín Hampton MD Active Start: [facility] 2023 End: January 09, 2024 Team Status: Active Member Role Status Dates Shantell Osei [facility]- Primary Care Provider Activ e Start: January 09, 2024 End: January 09, 2024 Toby Venegas MD Other Provider Active Start: [facility] 2023 End: January 09, 2024 AINSLEY Don Other Provider Active Start: January 09, 2024 End: January 09, 2024 Junior Mayo MD Other Provider Active Start: [facility] 2023 End: January 09, 2024 Baudilio Hoyos MD Other Provider Active Star t: January 09, 2024 End: January 09, 2024 Raul Malave MD Other Provider Active Start: January 09, 2024 End: January 09, 2024 Iván Govea MD Other Provider Active Start: [facility] 2023 End: January 09, 2024 Percy Herrera MD Admit Provider Active S tart: January 09, 2024 End: January 09, 2024 Jersey Sharp MD Attending Provider, Other Provider Active Start: January 09, 2024 End: January 09, 2024 [facility] Other Provider Active Start: January 09, 2024 End: January 09, 2024 Ramirez Arango MD Other Provider Active Start: [facility] 2023 End: January 09, 2024 Pablo Valdez MD Other Provider Active Start: January 09, 2024 End: January 09, 2024 Ignacio Ascencio MD Other Provider Active St art: January 09, 2024 End: January 09, 2024 Mario Kinsey DO Other Provider Active Start: January 09, 2024 End: January 09, 2024 Lashon Hurtado MD Other Provider Active Start: January 09, 2024 End: January 09, 2024 Perez Goodson MD Other Provider Active Start: January 09, 2024 End: January 09, 2024 Gomez Montes MD Other Provider Active Start: [facility] 2023 End: January 09, 2024 Louis Bell DO Other Provider Active Start: January 09, 2024 End: January 09, 2024 Rey Romero DO Other Provider Active Start: January 09, 2024 End: January 09, 2024 Teri Degroot MD Other Provider Active Start: [facility] 2023 End: January 09, 2024 Jassi Arroyo MD Other Provider Active Start: January 09, 2024 End: January 09, 2024 Fatuma Kwan MD Other Provider Active Start: [facility] 2023 End: January 09, 2024 Team Status: Active Member Role Status Dates Shantell Osei [facility] Primary Care Provider Activ e Start: January 09, 2024 End: January 09, 2024 Toby Venegas MD Attending Provider, Other Provider Active Start: January 09, 2024 End: January 09, 2024 AINSLEY Don Other Provider Active Start: January 09, 2024 End: January 09, 2024 Junior Mayo MD Other Provider Active Start: [facility] 2023 End: January 09, 2024 Baudilio Hoyos MD Other Provider Active Star t: January 09, 2024 End: January 09, 2024 Raul Malave MD Other Provider Active Start: January 09, 2024 End: January 09, 2024 Iván Govea MD Other Provider Active Start: [facility] 2023 End: January 09, 2024 Percy Herrera MD Admit Provider Active S tart: January 09, 2024 End: January 09, 2024 Jersey Sharp MD Other Provider Active Start: January 09, 2024 End: January 09, 2024 Xin Burdick APRN ACNP-BC Other Provider Active Start: January 09, 2024 End: January 09, 2024 Ramirez Arango MD Other Provider Active Start: [facility] 2023 End: January 09, 2024 Pablo Valdez MD Other Provider Active Start: January 09, 2024 End: January 09, 2024 Ignacio Ascencio MD Other Provider Active St art: January 09, 2024 End: January 09, 2024 Mario Kinsey DO Other Provider Active Start: January 09, 2024 End: January 09, 2024 Lashon Hurtado MD Other Provider Active Start: January 09, 2024 End: January 09, 2024 Perez Goodson MD Other Provider Active Start: January 09, 2024 End: January 09, 2024 Gomez Montes MD Other Provider Active Start: [facility] 2023 End: January 09, 2024 Louis Bell DO Other Provider Active Start: January 09, 2024 End: January 09, 2024 Rey Romero DO Other Provider Active Start: January 09, 2024 End: January 09, 2024 Teri Degroot MD Other Provider Active Start: [facility] 2023 End: January 09, 2024 Jassi Arroyo MD Other Provider Active Start: January 09, 2024 End: January 09, 2024 Fatuma Kwan MD Other Provider Active Start: [facility] 2023 End: January 09, 2024 Team Status: Inactive Member Role Status Dates JOLENE Jay- Primary Care Provider Activ e Start: February 07, 2024 End: February 07, 2024 Junior Mayo MD Attending Provider Active Start : February 07, 2024 End: February 07, 2024 Team Status: Inactive Member Role Status Dates Shantell Osei [facility] Primary Care Provider Activ e Start: February 21, 2024 End: February 21, 2024 Junior Mayo MD Attending Provider Active Start : February 21, 2024 End: February 21, 2024 Team Status: Inactive Member Role Status Dates Shantell Zavalasheldon [facility] Primary Care Provider Active Patrice Levine MD Attending Provider Active Team Status: Active Member Role Status Dates Shantell Zavalasheldon [facility] Primary Care Provider Active Team Status: Inactive Member Role Status Dates Shantell Zavalaault , [facility] Primary Care Provider Active Gerber Short MD Attending Provider Active Team Status: Inactive Member Role Status Dates Shantell Zavalasheldon [facility] Primary Care Provider Active Percy Herrera MD Admit Provider Active Irwin Theodore MD Attending Provider Active Toby Venegas MD Other Provider Active Team Status: Inactive Member Role Status Dates Shantell Zavalasheldon [facility] Primary Care Provider Active Junior Mayo MD Attending Provider Active Team Status: Inactive Member Role Status Dates Shantell Sea , [facility] Primary Care Provider Active Start: October 11, 2023 End: October 11, 2023 Junior Mayo MD Attending Provider Active Start : October 11, 2023 End: October 11, 2023 Team Status: Inactive Member Role Status Dates Junior Mayo MD Attending Provider Active Start : November 03, 2023 End: November 03, 2023 Team Status: Inactive Member Role Status Dates Toby Venegas MD Attending Provider Active Star t: November 10, 2023 End: November 10, 2023 Team Status: Inactive Member Role Status Dates Toby Venegas MD Attending Provider Active Star t: November 10, 2023 End: November 10, 2023 PHYSICIAN NO FAMILY Primary Care Provider Active Start: November 10, 2023 End: November 10, 2023 Team Status: Inactive Member Role Status Dates Live Nguyen MD Attending Provider Active Sta rt: November 14, 2023 End: November 14, 2023 Team Status: Active Member Role Status Dates Shantell Sea , [facility] Primary Care Provider Activ e Start: January 08, 2024 Jose Luis Musa MD Admit Provider, Othe r Provider Active Start: January 08, 2024 Percy Herrera MD Attending Provider Active Start: January 08, 2024 Team Status: Active Member Role Status Dates Shantell Sea , [facility] Primary Care Provider Activ e Start: January 09, 2024 Toby Venegas MD Other Provider Active Start: [facility] 2023 AINSLEY Don Other Provider Active Start: January 09, 2024 Junior Mayo MD Other Provider Active Start: [facility] 2023 Baudilio Hoyos MD Other Provider Active Star t: January 09, 2024 Raul Malave MD Other Provider Active Start: January 09, 2024 Iván Govea MD Other Provider Active Start: [facility] 2023 Percy Herrera MD Admit Provider Active S tart: January 09, 2024 Jersey Sharp MD Attending Provider, Other Provider Active Start: January 09, 2024 Xin Burdick APRN [facility] Other Provider Active Start: January 09, 2024 Ramirez Arango MD Other Provider Active Start: [facility] 2023 Pablo Valdez MD Other Provider Active Start: January 09, 2024 Ignacio Ascencio MD Other Provider Active St art: January 09, 2024 Mario Kinsey DO Other Provider Active Start: January 09, 2024 Lashon Hurtado MD Other Provider Active Start: January 09, 2024 Perez Goodson MD Other Provider Active Start: January 09, 2024 Gomez Montes MD Other Provider Active Start: [facility] 2023 Louis Bell , Other Provider Active Start: January 09, 2024 Rey Romero DO Other Provider Active Start: January 09, 2024 Teri Degroot MD Other Provider Active Start: [facility] 2023 Jassi Arroyo MD Other Provider Active Start: January 09, 2024 Fatuma Kwan MD Other Provider Active Start: [facility] 2023 Team Status: Active Member Role Status Dates Shantell Sea , [facility] Primary Care Provider Activ e Start: January 09, 2024 Toby Venegas MD Attending Provider, Other Provider Active Start: January 09, 2024 AINSLEY Don Other Provider Active Start: January 09, 2024 Junior Mayo MD Other Provider Active Start: [facility] 2023 Baudilio Hoyos MD Other Provider Active Star t: January 09, 2024 Raul Malave MD Other Provider Active Start: January 09, 2024 Iván Govea MD Other Provider Active Start: [facility] 2023 Percy Herrera MD Admit Provider Active S tart: January 09, 2024 Jersey Sharp MD Other Provider Active Start: January 09, 2024 Xin Burdick APRN [facility] Other Provider Active Start: January 09, 2024 Ramirez Arango MD Other Provider Active Start: [facility] 2023 Pablo Valdez MD Other Provider Active Start: January 09, 2024 Ignacio Ascencio MD Other Provider Active St art: January 09, 2024 Mario Kinsey DO Other Provider Active Start: January 09, 2024 Lashon Hurtado MD Other Provider Active Start: January 09, 2024 Perez Goodson MD Other Provider Active Start: January 09, 2024 Gomez Montes MD Other Provider Active Start: [facility] 2023 Louis Bell DO Other Provider Active Start: January 09, 2024 Rey Romero DO Other Provider Active Start: January 09, 2024 Teri Degroot MD Other Provider Active Start: [facility] 2023 Jassi Arroyo MD Other Provider Active Start: January 09, 2024 Fatuma Kwan MD Other Provider Active Start: [facility] 2023 Goals (unrecognized section and content) Goals may be documented in a n alternate section FOR RECORDS PERTAINING TO PATIENTS WHO ARE OR HAVE BEEN ENROLLED IN A CHEMICAL DEPENDENCY/SUBSTANCEABUSE PROGRAM, SOME INFORMATION MAY BE OMITTED. This clinical summary was aggregated from multiple sources. Caution should be exercised in using it in the provision of clinical care. This summary normalizes information from multiple sources, and as a consequence, information in this document may materially change the coding, format and clinical context of patient data. In addition, data may be omitted in some cases. CLINICAL DECISIONS SHOULD BE BASED ON THE PRIMARY CLINICAL RECORDS. [facility] provides no warranty or guarantee of the accuracy or completeness of information in this document.
--- NOTE | 2024-05-27 04:45 | ED_ITS ---
HPI - SOB/Dyspnea General Chief Complaint: Shortness of Breath/Dyspnea Stated Complaint: SOB Time Seen by Provider: 05/27/24 04:34 Limitations: altered mental status and other Limitations comment: respiratory distress and altered mental status History of Present Illness HPI Narrative: This 53-year-old male with history of kidney failure and hypertension is brought to the emergency department by EMS for evaluation of shortness of breath. Upon arrival the patient was pale, diaphoretic, hypertensive and markedly dyspneic with pulse ox in the 80s. He was placed on BiPAP. His mental status is poor but he denied that he had missed any dialysis treatments and stated he was to have dialysis today. He does have a large abdominal incision but was unable to explain what surgery had been performed on him. Related Data Home Medications ?Medication ?Instructions ?Recorded ?Confirmed amlodipine 10 mg tablet 10 mg PO QDAY 05/21/23 02/08/24 atorvastatin 40 mg tablet 40 mg PO QDAY 05/21/23 02/08/24 carvedilol 25 mg tablet 25 mg PO Q12H 05/21/23 02/08/24 gabapentin 300 mg capsule 300 mg PO Q12H 05/21/23 02/08/24 hydralazine 100 mg tablet 100 mg PO Q12H 05/21/23 02/08/24 minoxidil 10 mg tablet 10 mg PO BID 05/21/23 02/08/24 clopidogrel 75 mg tablet 75 mg PO DAILY 02/08/24 02/08/24 isosorbide mononitrate 30 mg 30 mg PO DAILY 02/08/24 02/08/24 tablet,extended release 24 hr levothyroxine 112 mcg tablet 112 mcg PO DAILY 02/08/24 02/08/24 lisinopril 10 mg tablet 10 mg PO DAILY 02/08/24 02/08/24 sevelamer carbonate 800 mg tablet 2,400 mg PO Q8H 02/08/24 02/08/24 Previous Rx's ?Medication ?Instructions ?Recorded cephalexin 500 mg capsule 500 mg PO Q8H 7 days #21 caps 02/08/24 hydrocodone 5 mg-acetaminophen 325 1 tab PO Q4H PRN pain #10 tabs 02/08/24 mg tablet sulfamethoxazole 800 1 tab PO BID 7 days #14 tabs 02/08/24 mg-trimethoprim 160 mg tablet (Bactrim DS) Allergies Allergy/AdvReac Type Severity Reaction Status Date / Time No Known Drug Allergies Allergy Verified 05/21/23 14:25 Review of Systems ROS Status of ROS unobtainable due to medical condition and unobtainable due to mental status [facility] Social History Smoking status: Heavy tobacco smoker Exam Narrative Exam Narrative: Vital signs and Nursing Notes reviewed: General: Awake, alert, oriented, no acute distress, lying comfortably on the stretcher HEENT: Normocephalic atraumatic, mucous membranes are moist and pink, eyes are clear, normal conjunctiva, vision is grossly intact, posterior pharynx is normal in appearance. Tympanic membranes are normal bilaterally Neck: Supple, no meningeal signs, no anterior or posterior cervical lymphadenopathy Chest: Lungs are clear to auscultation with good air entry, there is no wheezing rhonchi or rales appreciated no accessory muscle use, patient is speaking in complete sentences-no chest wall tenderness to palpation CVS: Regular rate and rhythm S1-S2, no murmurs rubs or gallops, pulses are brisk and equal bilaterally ABD: Soft, nondistended, nontender, no rebound guarding or rigidity, bowel sounds are normal, no pulsatile masses appreciated Extremities: Moving all extremities, no lower extremity tenderness or swelling noted, negative Homans' sign, pulses are brisk and equal bilaterally Skin: Normal in appearance without rash,pallor, petechiae or purpura Neuro: No focal deficits Constitutional Vital Signs, click to edit/add: Last Vital Signs Pulse 90 05/27/24 05:40 Resp 22 H 05/27/24 05:40 BP 140/92 H 05/27/24 05:16 Pulse Ox 100 05/27/24 05:40 O2 Del Method Nonrebreather 05/27/24 04:53 O2 Flow Rate 15 05/27/24 04:53 FiO2 40 05/27/24 05:40 Course Vital Signs Vital signs: Vital Signs Pulse Rate 102 H 05/27/24 04:53 Respiratory Rate 34 H 05/27/24 04:53 Blood Pressure 229/121 H 05/27/24 04:53 Pulse Oximetry 88 L 05/27/24 04:53 Oxygen Delivery Method Nonrebreather 05/27/24 04:53 Oxygen Delivery Flow Rate 15 05/27/24 04:53 Pulse Rate 90 05/27/24 05:40 Respiratory Rate 22 H 05/27/24 05:40 Blood Pressure 140/92 H 05/27/24 05:16 Pulse Oximetry 100 05/27/24 05:40 Oxygen Delivery Method Nonrebreather 05/27/24 04:53 Oxygen Delivery Flow Rate 15 05/27/24 04:53 Fraction of Inspired Oxygen 40 05/27/24 05:40 MDM - SOB/Dyspnea MDM Narrative Medical decision making narrative: This 53-year-old male with a history of COPD and chronic renal failure who is on dialysis Sunday and Saturdays and was scheduled for dialysis this morning is brought to the emergency department by EMS from home accompanied by his daughter. The daughter states she got a call from him during the night that he was short of breath. She immediately called EMS. Upon EMS arrival the patient was markedly short of breath and poorly responsive. He was brought to the emergency department and brought to room 5. Upon arrival he was able to speak 1 word sentences was markedly hypoxic with pulse ox in the 80s and markedly hypertensive with blood pressure in the 230s over 120s. He was initially placed on BiPAP. His clinical presentation did not improve but his pulse ox did improve. An IV was established and he was medicated with 20 mg of IV labetalol and started on a nitro drip. Blood gas was informed by respiratory therapy and shows a marked respiratory acidosis with a pH of 7.039 and pCO2 of 105. Chest x-ray done at that time shows findings consistent with multifocal pneumonia versus pulmonary edema. In light of the fact that the patient has not been coughing or short of breath until early this morning I doubt that this is pneumonia. After the results of the blood gas were available the patient was intubated after a brief conversation with the patient's daughter. He is intubated with a 7.5 endotracheal tube on the second attempt after on the initial attempt a front tooth broke off. There was a small amount of blood suctioned from the oropharynx at that time. Postintubation chest x-ray The patient was started on a propofol drip for sedation. After he was sedated an EKG was able to be performed that shows a sinus tachycardia to 104 bpm, it is limited by patient movement but does not show any acute STEMI. Routine labs are reviewed. He has a white count of 16.8. Hemoglobin is moderately low at 10.6. BUN and creatinine are markedly elevated at 64 and 11.7. Potassium is stable at 4.7. Troponin is normal at 16.8 and BNP is markedly elevated greater than 35,000. [facility] was consulted for transfer but they do not have any ICU beds. According to the patient's daughter he is a patient of [facility] where he recently had aortic surgery and sees cardiology. She states that he has been having episodes of increasing shortness of breath prior to dialysis on his dialysis day despite not missing any dialysis. Case was discussed with the shield cleaner at [facility] Dr. Estrada and he is accepted for emergent transfer. Medical Records Attestation: I reviewed the patient's medical records. Lab Data Attestation: I reviewed the patient's lab results. Labs: Lab Results 05/27/24 05/27/24 Range/Units 04:35 04:55 WBC 16.8 H (4.0-11.0) 10^3/uL RBC 3.21 L (4.70-6.10) 10^6/uL Hgb 10.6 L (14.0-18.0) g/dL Hct 33.8 L (42.0-54.0) % MCV 105.3 H (80.0-94.0) fL MCH 33.0 (25.9-34.0) pg MCHC 31.4 (29.9-35.2) g/dL RDW 14.9 (11.0-15.0) % Plt Count 376 (150-450) 10^3/uL MPV 10.1 (9.5-13.5) fL Neut % (Auto) 73.1 (43.0-75.0) % Lymph % (Auto) 13.3 L (20.5-60.0) % Elliott % (Auto) 8.5 (1.7-12.0) % Eos % (Auto) 3.8 (0.9-7.0) % Baso % (Auto) 0.8 (0.2-2.0) % Neut # (Auto) 12.3 H (1.4-6.5) 10^3/uL Lymph # (Auto) 2.2 (1.2-3.8) 10^3/uL Elliott # (Auto) 1.4 H (0.3-0.8) 10^3/uL Eos # (Auto) 0.6 (0.0-0.7) 10^3/uL Baso # (Auto) 0.1 (0.0-0.1) 10^3/uL Abs Immat Gran (auto) 0.08 H (0.00-0.03) 10^3/uL Imm/Tot Granulo (auto) 0.5 (0.0-0.5) % Puncture Site Rr ABG pH 7.039 L* (7.350-7.450) ABG pCO2 105.0 H* (35.0-45.0) mmHg ABG pO2 139.0 H (80.0-100.0) mmHg ABG HCO3 28.2 H (22.0-26.0) mmol/L ABG O2 Saturation 96.2 % ABG Base Excess -2.5 L (-2.0-2.0) mmol/L [place] Test Positive (POSITIVE) FiO2 100 % BiPAP 16/8 Sodium 140 (136-145) mmol/L Potassium 4.7 (3.5-5.1) mmol/L Chloride 98 (98-107) mmol/L Carbon Dioxide 28.6 (21.0-32.0) mmol/L Anion Gap 18.1 BUN 64.0 H (7.0-18.0) mg/dL Creatinine 11.87 H* (0.70-1.30) mg/dL Est GFR ( Amer) 5 L (>=60) Est GFR (Non-Af Amer) 4 L (>=60) BUN/Creatinine Ratio 5.4 Glucose 150 H (74-106) mg/dL Lactate 2.4 H* (0.4-2.0) mmol/L Calcium 9.8 (8.5-10.1) mg/dL Total Bilirubin 0.6 (0.2-1.0) mg/dL AST 14 L (15-37) U/L ALT 12 L (16-63) U/L Alkaline Phosphatase 108 (46-116) U/L Troponin I High Sens 16.8 (4.0-76.1) pg/mL NT-Pro-B Natriuret Pep >68659.0 H* (<=900.0) pg/mL Total Protein 7.5 (6.4-8.2) g/dL Albumin 3.8 (3.4-5.0) g/dL Globulin 3.7 g/dL Albumin/Globulin Ratio 1.0 ECG Data Attestation: I personally reviewed and interpreted this ECG as follows: (Sinus rhythm at 85 bpm, normal axis, minimal ST depression in leads II and aVF, no acute ST segment elevation or T wave inversion, T waves are not peaked) Critical Care Time Critical Care Time Critical Care Time: Yes Total Critical Care Time: 45 Attestation: Treatment of acutely altered and hypoxic male including intubation, treatment of hypertensive emergency with IV antihypertensives, sedation, consultation with patient's daughter and ICU attending and transfer arrangements Discharge Plan Discharge Chief Complaint: Shortness of Breath/Dyspnea Clinical Impression: Acute hypercapnic respiratory failure, Pulmonary edema, Dialysis patient, Hypertension, uncontrolled [facility] Time of Disposition Decision: 06:02 Discharge Location: [facility] Condition: Critical Procedures ED Procedure Instructions Procedures Procedures: Patient was intubated due to acute respiratory failure. Was given 20 mg of IV etomidate and 100 mg of succinylcholine. Initially an 8-0 endotracheal tube was attempted but there was a moderate amount of edema in the posterior pharynx and a 7.5 endotracheal tube was used to intubate this patient. During the attempt a front tooth was inadvertently broken off. There was a small amount of bleeding noted at that time.
[2024-05-27 04:56] LABS: Basophils Absolute Auto 0.1 10^3/uL (0.0-0.1); Basophils Percent Auto 0.8 % (0.2-2.0); Eosinophils Absolute Auto 0.6 10^3/uL (0.0-0.7); Eosinophils Percent Auto 3.8 % (0.9-7.0); Hematocrit 33.8 % (42.0-54.0); Hemoglobin 10.6 g/dL (14.0-18.0); Immature Granulocytes Abs Auto 0.08 10^3/uL (0.00-0.03); Immature Granulocytes Pct Auto 0.5 % (0.0-0.5); Lymphocytes Absolute Auto 2.2 10^3/uL (1.2-3.8); Lymphocytes Percent Auto 13.3 % (20.5-60.0); Mean Corpuscular HGB Conc 31.4 g/dL (29.9-35.2); Mean Corpuscular Volume 105.3 fL (80.0-94.0); Mean Platelet Volume 10.1 fL (9.5-13.5); Monocytes Absolute Auto 1.4 10^3/uL (0.3-0.8); Monocytes Percent Auto 8.5 % (1.7-12.0); Neutrophils Absolute Auto 12.3 10^3/uL (1.4-6.5); Neutrophils Percent Auto 73.1 % (43.0-75.0); Platelet Count 376 10^3/uL (150-450); Red Cell Distribution Width 14.9 % (11.0-15.0); White Blood Count 16.8 10^3/uL (4.0-11.0)
[2024-05-27] MEDS: LABETALOL HCL 20 MG/4 ML SYRINGE IVP (05:00)
[2024-05-27 05:02] LABS: Base Excess ABG -2.5 mmol/L (-2.0-2.0); HCO3 ABG 28.2 mmol/L (22.0-26.0); Oxygen Saturation ABG 96.2 %
[2024-05-27 05:03] LABS: Allen Test POSITIVE (POSITIVE); BIPAP Pressure 16/8; Fractionated Inspired Oxygen 100 %; O2 Mode BIPAP; Puncture Site RR
[2024-05-27] MEDS: NITROGLYCERIN IN 5 % DEXTROSE 50 MG/250 ML INFUS..BTL IV (05:03)
[2024-05-27 05:06] LABS: pH ABG 7.039 (7.350-7.450)
[2024-05-27 05:17] LABS: Alanine Aminotransferase 12 U/L (16-63); Albumin Level 3.8 g/dL (3.4-5.0); Alkaline Phosphatase 108 U/L (46-116); Anion Gap 18.1; Aspartate Amino Transferase 14 U/L (15-37); BUN Creatinine Ratio 5.4; Bilirubin Total 0.6 mg/dL (0.2-1.0); Calcium 9.8 mg/dL (8.5-10.1); Carbon Dioxide 28.6 mmol/L (21.0-32.0); Chloride 98 mmol/L (98-107); Estimated GFR (African America 5 (>=60); Estimated GFR (Non-African Ame 4 (>=60); Globulin 3.7 g/dL; Glucose 150 mg/dL (74-106); Potassium 4.7 mmol/L (3.5-5.1); Sodium 140 mmol/L (136-145); Total Protein 7.5 g/dL (6.4-8.2); Troponin I High Sensitivity 16.8 pg/mL (4.0-76.1)
[2024-05-27 05:24] LABS: Lactate/Lactic Acid 2.4 mmol/L (0.4-2.0)
[2024-05-27 05:25] LABS: NT Pro B Type Natriuretic Pept >35000.0 pg/mL (<=900.0)
[2024-05-27 05:31] LABS: Red Blood Count 3.21 10^6/uL (4.70-6.10)
--- NOTE | 2024-05-27 05:33 | XR_ITS ---
The [address] [address] Patient Name: LEANDER MASSEY MRN: [id number] date: 1970 Sex: M Assigned Patient Location: ED.MAIN Current Patient Location: ER Accession/Order Number: [id number] Exam Date: 05/27/2024 06:00 Report Date: 05/27/2024 06:43 At the request of: JORDON MARKER Procedure: XR chest 1V EXAM: XR chest 1V HISTORY: ETT tube placement COMPARISON: Chest radiograph of the same date. TECHNIQUE: One view of the chest was obtained. FINDINGS: An endotracheal tube terminates approximately 8.4 cm above the jhoan. The cardiac silhouette is enlarged though stable in size. There is no significant pneumothorax or left pleural effusion. Calcified granulomas are seen in the right lung. There is limited evaluation for a right pleural effusion as the right lateral hemithorax is excluded from the pnoly-ge-vyhy. There are mixed interstitial and airspace opacities in the lungs. No acute osseous abnormality is seen. XR/XR chest 1V IMPRESSION: 1. An endotracheal tube terminates approximately 8.4 cm above the jhoan. 2. Mixed interstitial and airspace opacities in the lungs could represent pulmonary edema and/or multifocal pneumonia. Electronically authenticated by: Bartolo DIXON Date: 05/27/2024 06:43
[2024-05-27] MEDS: PROPOFOL 1,000 MG/100 ML VIAL 3.13 MG IV (05:40)
[2024-05-27] MEDS: PROPOFOL 200 MG/20 ML VIAL 100 MG IVP (05:40)
[2024-05-27] MEDS: MIDAZOLAM HCL 2 MG/2 ML VIAL 4 MG IV (06:05)
--- NOTE | 2024-05-27 06:53 | PC.NURSE ---
Pt was brought in by squad for resp distress, hx of COPD, dialysis, CHF. Pt was 88% on nonrebreather, pt was put on bipap with pox of 96%. IV and ABGs obtained at 0455, results of ABGs showed pH 7.039 and pCO2 105.0. Pt was intubated at 0520 with 7.5 tube 25 at lip, etomidate 20mg at 0512 given prior to intubation, and succs 100mg given at 0522. Pt was placed in soft restraints at 0540. Bolus of 100mg propofol given at 0540, and drip started at 0540 at 5 mcg/kg/min, pt was still fighting at this time propofol increased to 50 mcg/kg/min at 0550. 4mg versed given at 0605. Paredes cath place at 0610. Tube advanced to 27 at the lip after xray was done.
[2024-05-27 08:03] LABS: Lactate/Lactic Acid 0.4 mmol/L (0.4-2.0)
[2024-05-27] MEDS: PROPOFOL 1,000 MG/100 ML VIAL 31.298 MG IV (09:00)
== END 2024-05-27 10:46 | disposition short-term general hospital (02) ==
PROVIDERS: Emergency Provider Emergency Medicine; PCP Nurse Practitioner Family
DX: J96.02 Acute respiratory failure with hypercapnia (principal); J81.1 Chronic pulmonary edema; I12.0 Hypertensive chronic kidney disease with stage 5 chronic kidney disease or end stage renal disease; N18.6 End stage renal disease; Z99.2 Dependence on renal dialysis; F17.200 Nicotine dependence, unspecified, uncomplicated; J44.9 Chronic obstructive pulmonary disease, unspecified
CPT/HCPCS: 31500; 36415; 36600; 71045; 80053; 82805; 83605; 83880; 84484; 85025; 87040; 93005; 94002; 94660; 96365; 96366; 96375; 96376; 99285; J0330; J1290; J2250; J2305; J2704

== ENCOUNTER 2025-02-04 15:15 | Emergency (ER) | payer OTHER, SELFPAY ==
[2025-02-04 15:18] VITALS: BP 124/69; PULSE 102; TEMP 37.2; O2SAT 95; BMI 27.9
[2025-02-04] MEDS: LIDOCAINE HCL 1% 100 MG/10 ML MDV INJ ×2 (15:51→15:52)
--- NOTE | 2025-02-04 15:55 | ED_ITS ---
HPI HPI - General Adult General Chief complaint: Skin/Abscess/Foreign Body Stated complaint: cyst on back Time Seen by Provider: 02/04/25 15:17 Source: patient Mode of arrival: walk-in History of Present Illness HPI narrative: 54-year-old male presents to the emergency department for a chief complaint abscess to the left lateral back. He has a painful red raised area on his left back which she has had for about a week and has been getting worse. No drainage. He has had numerous abscesses in the past. No fever or vomiting. Related Data Home Medications ?Medication ?Instructions ?Recorded ?Confirmed amlodipine 10 mg tablet 10 mg PO QDAY 05/21/23 02/08/24 atorvastatin 40 mg tablet 40 mg PO QDAY 05/21/23 02/08/24 carvedilol 25 mg tablet 25 mg PO Q12H 05/21/23 02/08/24 gabapentin 300 mg capsule 300 mg PO Q12H 05/21/23 02/08/24 hydralazine 100 mg tablet 100 mg PO Q12H 05/21/23 02/08/24 minoxidil 10 mg tablet 10 mg PO BID 05/21/23 02/08/24 clopidogrel 75 mg tablet 75 mg PO DAILY 02/08/24 02/08/24 isosorbide mononitrate 30 mg 30 mg PO DAILY 02/08/24 02/08/24 tablet,extended release 24 hr levothyroxine 112 mcg tablet 112 mcg PO DAILY 02/08/24 02/08/24 lisinopril 10 mg tablet 10 mg PO DAILY 02/08/24 02/08/24 sevelamer carbonate 800 mg tablet 2,400 mg PO Q8H 02/08/24 02/08/24 Previous Rx's ?Medication ?Instructions ?Recorded cephalexin 500 mg capsule 500 mg PO Q8H 7 days #21 caps 02/08/24 hydrocodone 5 mg-acetaminophen 325 1 tab PO Q4H PRN pain #10 tabs 02/08/24 mg tablet sulfamethoxazole 800 1 tab PO BID 7 days #14 tabs 02/08/24 mg-trimethoprim 160 mg tablet (Bactrim DS) cephalexin 500 mg capsule 500 mg PO QID 10 days #40 caps 02/04/25 hydrocodone 5 mg-acetaminophen 325 1 tab PO Q6H PRN pain 5 days #20 02/04/25 mg tablet tabs sulfamethoxazole 800 1 tab PO BID 10 days #20 tabs 02/04/25 mg-trimethoprim 160 mg tablet (Bactrim DS) Allergies Allergy/AdvReac Type Severity Reaction Status Date / Time No Known Drug Allergies Allergy Verified 05/21/23 14:25 Opioid HPI Opioid Management Most Recent Opioid Data: Last Pain Scale 4 02/04/25 15:25 02/04/25 Review of Systems ROS Narrative A ten point review of systems is negative except as noted above. PFSH PFSH Social History Smoking status: Heavy tobacco smoker Little interest or pleasure in doing things: not at all Feeling down, depressed, or hopeless: not at all Exam Narrative Exam Narrative: Nurses note and vital signs reviewed and patient is not hypoxic. General: The patient appears well and in no apparent distress. Patient is resting comfortably on cart. Skin: Warm, dry, no pallor noted. There are 2 erythematous raised adjacent to each other on his left upper back, lateral to the lower scapula. It is fluctuant and tender. There is no open area or drainage. Head: Normocephalic, atraumatic Eye: Normal conjunctiva, no drainage Ears, Nose, Mouth, and Throat: oral mucosa is moist. Nares patent. Cardiovascular: Regular Rate and Rhythm Respiratory: Patient is in no distress, no accessory muscle use, lungs are clear to auscultation, no wheezing, rales or rhonchi Back: non-tender other than at the abscess GI: Soft and nontender Musculoskeletal: The patient has no evidence of calf tenderness, no pitting edema, symmetrical pulses noted bilaterally Neurological: A&O, normal speech Psychiatric: Cooperative Constitutional Vital Signs, click to edit/add: Last Vital Signs Temp 98.9 F 02/04/25 15:18 Pulse 102 H 02/04/25 15:18 Resp 18 02/04/25 15:18 BP 124/69 02/04/25 15:18 Pulse Ox 95 02/04/25 15:18 O2 Del Method Room Air 02/04/25 15:18 Course Vital Signs Vital signs: Vital Signs Temperature 98.9 F 02/04/25 15:18 Pulse Rate 102 H 02/04/25 15:18 Respiratory Rate 18 02/04/25 15:18 Blood Pressure 124/69 02/04/25 15:18 Pulse Oximetry 95 02/04/25 15:18 Oxygen Delivery Method Room Air 02/04/25 15:18 Temperature 98.9 F 02/04/25 15:18 Pulse Rate 102 H 02/04/25 15:18 Respiratory Rate 18 02/04/25 15:18 Blood Pressure 124/69 02/04/25 15:18 Pulse Oximetry 95 02/04/25 15:18 Oxygen Delivery Method Room Air 02/04/25 15:18 Medical Decision Making MDM Narrative Medical decision making narrative: The following procedure was performed by me. Local infiltration was carried out with 1% lidocaine without epinephrine resulting in complete skin anesthesia. The area was prepped with Betadine x 3 and draped sterilely. Using a #11 blade the abscess was incised and drained of a large amount of purulent material. The 2 adjacent raised areas are interconnected and only one incision was needed. Quarter inch iodoform packing applied and then subsequently dressing was applied by nursing staff. No complications and he tolerated the procedure well. He is prescribed Keflex and Bactrim and will return tomorrow for packing removal. He was prescribed [place] for pain. Treatment diagnosis and follow-up were discussed with the patient. Differential Diagnosis Differential Diagnosis: Abscess, cellulitis Discharge Plan Discharge Chief Complaint: Skin/Abscess/Foreign Body Clinical Impression: Abscess Patient Disposition: Home, Self-Care Time of Disposition Decision: 15:52 Condition: Good Mode of Transportation: Private Vehicle Prescriptions / Home Meds: New sulfamethoxazole-trimethoprim [Bactrim DS] 800-160 mg tablet 1 tab PO BID 10 Days Qty: 20 0RF cephalexin 500 mg capsule 500 mg PO QID 10 Days Qty: 40 0RF hydrocodone-acetaminophen 5-325 mg tablet 1 tab PO Q6H PRN (Reason: pain) 5 Days Qty: 20 0RF No Action clopidogrel 75 mg tablet 75 mg PO DAILY isosorbide mononitrate 30 mg tablet extended release 24 hr 30 mg PO DAILY levothyroxine 112 mcg tablet 112 mcg PO DAILY lisinopril 10 mg tablet 10 mg PO DAILY sevelamer carbonate 800 mg tablet 2,400 mg PO Q8H hydrocodone-acetaminophen 5-325 mg tablet 1 tab PO Q4H PRN (Reason: pain) Qty: 10 0RF sulfamethoxazole-trimethoprim [Bactrim DS] 800-160 mg tablet 1 tab PO BID 7 Days Qty: 14 0RF cephalexin 500 mg capsule 500 mg PO Q8H 7 Days Qty: 21 0RF amlodipine 10 mg tablet 10 mg PO QDAY atorvastatin 40 mg tablet 40 mg PO QDAY carvedilol 25 mg tablet 25 mg PO Q12H gabapentin 300 mg capsule 300 mg PO Q12H hydralazine 100 mg tablet 100 mg PO Q12H minoxidil 10 mg tablet 10 mg PO BID Print Language: Mongolian Instructions: Abscess (ED) Additional Instructions: Return to emergency department tomorrow for packing removal. Referrals: HERI CUELLAR [Primary Care Provider] - 1 week
== END 2025-02-04 16:02 | disposition home or self-care (01) ==
PROVIDERS: Emergency Provider Emergency Medicine; PCP Nurse Practitioner Family
DX: F17.200 Nicotine dependence, unspecified, uncomplicated (principal); L02.212 Cutaneous abscess of back [any part, except buttock and flank]
CPT/HCPCS: 10060; 99283

== ENCOUNTER 2025-02-05 17:52 | Emergency (ER) | payer OTHER, SELFPAY ==
[2025-02-05 17:58] VITALS: BP 157/89; PULSE 100; TEMP 37; O2SAT 98; BMI 27.9
--- NOTE | 2025-02-05 18:07 | ED.GENADUL1 ---
HPI HPI - General Adult General Chief complaint: Recheck/Abnormal Lab/Rx Stated complaint: PACKING REMOVAL Time Seen by Provider: 02/05/25 17:54 Source: patient Mode of arrival: walk-in Limitations: no limitations History of Present Illness HPI narrative: 54-year-old male presented as instructed to have packing removed. He had a back abscess incised and drained yesterday here. He has been taking his antibiotic and he states it feels much better. He has had no problems. Related Data Home Medications ?Medication ?Instructions ?Recorded ?Confirmed amlodipine 10 mg tablet 10 mg PO QDAY 05/21/23 02/08/24 atorvastatin 40 mg tablet 40 mg PO QDAY 05/21/23 02/08/24 carvedilol 25 mg tablet 25 mg PO Q12H 05/21/23 02/08/24 gabapentin 300 mg capsule 300 mg PO Q12H 05/21/23 02/08/24 hydralazine 100 mg tablet 100 mg PO Q12H 05/21/23 02/08/24 minoxidil 10 mg tablet 10 mg PO BID 05/21/23 02/08/24 clopidogrel 75 mg tablet 75 mg PO DAILY 02/08/24 02/08/24 isosorbide mononitrate 30 mg 30 mg PO DAILY 02/08/24 02/08/24 tablet,extended release 24 hr levothyroxine 112 mcg tablet 112 mcg PO DAILY 02/08/24 02/08/24 lisinopril 10 mg tablet 10 mg PO DAILY 02/08/24 02/08/24 sevelamer carbonate 800 mg tablet 2,400 mg PO Q8H 02/08/24 02/08/24 Previous Rx's ?Medication ?Instructions ?Recorded cephalexin 500 mg capsule 500 mg PO Q8H 7 days #21 caps 02/08/24 hydrocodone 5 mg-acetaminophen 325 1 tab PO Q4H PRN pain #10 tabs 02/08/24 mg tablet sulfamethoxazole 800 1 tab PO BID 7 days #14 tabs 02/08/24 mg-trimethoprim 160 mg tablet (Bactrim DS) cephalexin 500 mg capsule 500 mg PO QID 10 days #40 caps 02/04/25 hydrocodone 5 mg-acetaminophen 325 1 tab PO Q6H PRN pain 5 days #20 02/04/25 mg tablet tabs sulfamethoxazole 800 1 tab PO BID 10 days #20 tabs 02/04/25 mg-trimethoprim 160 mg tablet (Bactrim DS) Allergies Allergy/AdvReac Type Severity Reaction Status Date / Time No Known Drug Allergies Allergy Verified 05/21/23 14:25 Opioid HPI Opioid Management Most Recent Opioid Data: Last Pain Scale 4 02/04/25 15:25 02/04/25 Review of Systems ROS Narrative A ten point review of systems is negative except as noted above. PFSH PFSH Social History Smoking status: Heavy tobacco smoker Little interest or pleasure in doing things: not at all Feeling down, depressed, or hopeless: not at all Exam Narrative Exam Narrative: Nurses note and vital signs reviewed and patient is not hypoxic. General: The patient appears well and in no apparent distress. Patient is resting comfortably on cart. Skin: Warm, dry, no pallor noted. There is no rash noted. Head: Normocephalic, atraumatic Eye: Normal conjunctiva, no drainage Ears, Nose, Mouth, and Throat: oral mucosa is moist. Nares patent. Cardiovascular: Regular Rate and Rhythm Respiratory: Patient is in no distress, no accessory muscle use Back: The packing is removed. There is no subsequent drainage. There is less erythema and swelling than yesterday. GI: Soft and nontender Musculoskeletal: No joint swelling Neurological: A&O, normal speech Psychiatric: Cooperative Constitutional Vital Signs, click to edit/add: Last Vital Signs Temp 98.6 F 02/05/25 17:58 Pulse 100 H 02/05/25 17:58 Resp 18 02/05/25 17:58 BP 157/89 H 02/05/25 17:58 Pulse Ox 98 02/05/25 17:58 O2 Del Method Room Air 02/05/25 17:58 Course Vital Signs Vital signs: Vital Signs Temperature 98.6 F 02/05/25 17:58 Pulse Rate 100 H 02/05/25 17:58 Respiratory Rate 18 02/05/25 17:58 Blood Pressure 157/89 H 02/05/25 17:58 Pulse Oximetry 98 02/05/25 17:58 Oxygen Delivery Method Room Air 02/05/25 17:58 Temperature 98.6 F 02/05/25 17:58 Pulse Rate 100 H 02/05/25 17:58 Respiratory Rate 18 02/05/25 17:58 Blood Pressure 157/89 H 02/05/25 17:58 Pulse Oximetry 98 02/05/25 17:58 Oxygen Delivery Method Room Air 02/05/25 17:58 Medical Decision Making MDM Narrative Medical decision making narrative: Packing has been removed and he is improved from yesterday. He will finish his antibiotics. Treatment diagnosis and follow-up were discussed with the patient. Discharge Plan Discharge Chief Complaint: Recheck/Abnormal Lab/Rx Clinical Impression: Abscess packing removal Patient Disposition: Home, Self-Care Time of Disposition Decision: 18:06 Condition: Good Mode of Transportation: Private Vehicle Prescriptions / Home Meds: No Action clopidogrel 75 mg tablet 75 mg PO DAILY isosorbide mononitrate 30 mg tablet extended release 24 hr 30 mg PO DAILY levothyroxine 112 mcg tablet 112 mcg PO DAILY lisinopril 10 mg tablet 10 mg PO DAILY sevelamer carbonate 800 mg tablet 2,400 mg PO Q8H hydrocodone-acetaminophen 5-325 mg tablet 1 tab PO Q4H PRN (Reason: pain) Qty: 10 0RF sulfamethoxazole-trimethoprim [Bactrim DS] 800-160 mg tablet 1 tab PO BID 7 Days Qty: 14 0RF cephalexin 500 mg capsule 500 mg PO Q8H 7 Days Qty: 21 0RF sulfamethoxazole-trimethoprim [Bactrim DS] 800-160 mg tablet 1 tab PO BID 10 Days Qty: 20 0RF cephalexin 500 mg capsule 500 mg PO QID 10 Days Qty: 40 0RF hydrocodone-acetaminophen 5-325 mg tablet 1 tab PO Q6H PRN (Reason: pain) 5 Days Qty: 20 0RF amlodipine 10 mg tablet 10 mg PO QDAY atorvastatin 40 mg tablet 40 mg PO QDAY carvedilol 25 mg tablet 25 mg PO Q12H gabapentin 300 mg capsule 300 mg PO Q12H hydralazine 100 mg tablet 100 mg PO Q12H minoxidil 10 mg tablet 10 mg PO BID Print Language: Tajik Instructions: Abscess Follow-up (ED) Referrals: HERI CUELLAR [Primary Care Provider] - 1 week
== END 2025-02-05 18:33 | disposition home or self-care (01) ==
PROVIDERS: Emergency Provider Emergency Medicine; PCP Nurse Practitioner Family
DX: Z48.00 Encounter for change or removal of nonsurgical wound dressing (principal); F17.200 Nicotine dependence, unspecified, uncomplicated
CPT/HCPCS: 99281

== ENCOUNTER 2025-02-24 03:52 | Emergency (ER) | payer OTHER, SELFPAY ==
[2025-02-24] VITALS (43 sets, daily range): BP systolic 99–229; BP diastolic 61–137; PULSE 85–129; TEMP 35.4–36.3; O2SAT 98–100; BMI 30.7
[2025-02-24] MEDS: ETOMIDATE 20 MG/10 ML VIAL IVP ×2 (03:57→04:09)
--- OUTSIDE RECORDS SUMMARY | 2025-02-24 04:01 | XMS_ITS | CCD ---
Author Organization [facility] Care Team Providers Care Mathematics Lecturer Name Role Phone Ace Marr Unavailable Unavailable Ace Marr Unavailable Unavailable Vivian Motta Attending Provider [phone] Shantell Osei Primary Care Provider [phone] Vivian Motta Attending Provider Shantell Osei Primary Care Provider [phone] Ace Marr Unavailable Unavailable Unavailable Maria Esther, Junior Unavailable Shantell Osei Unavailable Patrice Levine Unavailable Iván Govea Unavailable NAZZAL MUNIER Admitting Unavailable NAZZAL, MUNIER Attending Unavailable UNKNOWN, PHYSICIAN Primary Care Unavailable UNKNOWN, PHYSICIAN Referring Unavailable NAZZAL, MUNIER Surgeon Unavailable NE Procedure Practitioner Unavailab Monica Grimes Unavailable KISHOR Osei Primary Care Provider MD Patrice Levine Attending Provider Gerber Short Unavailable MARIA ESTHER, JUNIOR Primary [...] Admitting Unavailable MARKER, DR RUVALCABA Attending Unavailable ASIYAJANELLE SWARTZ Consulting Unavailable MARKER, DR RUVALCABA Consulting Unavailable [...] Unavailable MIKAELA, DR SRINIVASAN Baker Consulting Unavailable SUBHASH VICENTE Consulting Unavailable SEA, SHANTELL Primary Care Unavailable DALLIN, NAILA Admitting Unavailable DALLIN, NAILA Attending Unavailable ZIEBLIAM, DR LUDMILA Baker Consulting Unavailable DALLIN, NAILA Consulting Unavailable ABREU, DYLLAN Consulting Unavailable SEA, SHANTELL Primary Care Unavailable MARKER, DR RUVALCABA Admitting Unavailable MARKER, DR RUVALCABA Attending Unavailable ASIYAJANELLE Consulting Unavailable WAYNEIPPVIVIAN WHEELER Consulting Unavailable MARIA ESTHER, JUNIOR Admitting Unavailable [...] Unavailable THEO, DR PRADO Admitting Unavailable Sea, BLACKTOP PAVER OPERATOR-C Shantell Primary Care Provider MD Patrice Levine Attending Provider MD Gerber Short Attending Provider Raissa Oh Unavailable Asaad, Imad Unavailable Donya Mccann Unavailable KATHE OseiP-C Shantell Primary Care Provider U MD Percy Perera Admit Provider MD Irwin Theodore Attending Provider [phone] MD Toby Venegas Other Provider MD Patrice Levine Attending Provider MD Patrice Levine Attending Provider [phone] KISHOR Osei Primary Care Provider U MD Junior Chiu Attending Provider MD Toby Venegas Attending Provider Unavailable Primary Care Provider UnavailLive Marie Unavailable JOLENE Osei-C Shantell Primary Care Provider U MD Junior Chiu Attending Provider MD Toby Venegas Attending Provider [phone] NO FAMILY, PHYSICIAN Primary Care Provider Unava ilable MD Toby Venegas Other Provider KARYNA Kowalski-Radha Vieira Other Provider Unavailable MD Junior Mora Other Provider MD Baudilio Hoyos Other Provider MD Ethan Malavehash Other Provider MD Iván Govea Other Provider MD Percy Herrera Admit Provider [phone] MD Jersey Sharp Attending Provider [phone] JOLENE Osei-BC Shantell Primary Care Provider MD Junior Mora Attending Provider [phone] Shantell Osei NP Unavailable [phone] Sea BLACKTOP PAVER OPERATOR-BC, Shantell Primary Care Provider Toby Venegas MD Attending Provider Ace Marr DO Primary Care Provider Iván Govea MD Attending Provider [phone] Junior Mora MD Attending Provider DARBY SANCHES Attending Unavailable ALLISON SERRANO Attending Unavailable Iván Govea MD Attending Provider Junior Mora MD Attending Provider NO FAMILY, PHYSICIAN Primary Care Provider Unava ilable Sea BLACKTOP PAVER OPERATOR-BC, Shantell Primary Care Provider Toby Venegas MD Attending Provider Gerber Short MD Attending Provider Norm Faustin MD Unavailable JOLENE OSEI Primary Care Unavai lable Kely Villagran Attending Unavailable Kely Villagran Attending Unavailable JOLENE OSEI Primary Care Unavai lable ALGHOTHANI, MOHAMAD Referring Unavailable VIJENDRA RIANNA Attending Unavailable VIOLET, TYRONE Referring Unavailable VIOLET, TYRONE Referring Unavailable ALGHOTHANI, MOHAMAD Admitting Unavailable ALGHOTHANI, MOHAMAD Attending Unavailable VIOLET, TYRONE Referring Unavailable ALGHOTHANI, MOHAMAD Attending Unavailable JONH SANABRIA Attending Unavailable ALGHOTHANI, MOHAMAD Attending Unavailable ALGHOTHANI, MOHAMAD Referring Unavailable NATHANIEL SANABRIA Attending Unavailable ALGHOTHANI, KELY Attending Unavailable ALGHOTHANI, CHRISTOPHERD Attending Unavailable KIRK MARINELLI Attending Unavailable ABNER, JORDON J Referring Unavailable DEYANIRA, YOUNGSOOK Admitting Unavailable DEYANIRA, YOUNGSOOK Attending Unavailable DEYANIRA, YOUNGSOOK Referring Unavailable Shantell Osei Primary Care Unavailable Gerber Short Admitting Unavailable Gerber Short Attending Unavailable Theo, Toby Admitting Unavailable Toby Venegas Attending Unavailable Shantell Osei Primary Care Unavailable Xuan Aziz Admitting Unavailable Octavio Goveaiz Attending Unavailable Junior Mora Admitting Unavailable Junior Mora Attending Unavailable NO FAMILY, PHYSICIAN Primary Care Unavailable Elgaby, Essam Admitting Unavailable Toby Venegas Attending Unavailable Shantell Osei Primary Care Unavailable Unavailable Unavailable Unavailable Allergies Allergy Classification Reported Allergen(s) Allergy Type Date of Onset Reaction(s) Facility (20 sources) Contrast Allergy PreMed Pack Drug allergy Unknown [id number] Other (3 sources) Iodinated Contrast Media; Translations: [IODINATED CONTRAST MEDIA] Drug allergy (disorder) 0 [facility] Repository (1 source) Sulfonamides (Antibiotic) Propensity to adverse reactions to drug 6 [facility] Aubrey Phone: (1 source) No Known Medication Allergies; Translations: [No Known Medication Allergies] Propensity to adverse reactions (disorder) [facility] Repository (1 source) Iodine; Translations: [IODINE] Drug Allergy 3 [facility] Repository (1 source) Sulfonamides (Antibiotic); Translations: [SULFA (SULFONAMIDE ANTIBIOTICS)] Propensity to adverse reactions to drug (disorder) 6 [facility] Repository (2 sources) Iodinated Contrast Media Drug allergy (disorder) 4 [facility] Repository Medications Current Medications Medication Drug Class(es) Dates Sig (Normalized) Sig (Original) Acetaminophen (20 sources) Start: 04-26-2024 acetaminophen (TYLENOL) tablet 650 mg acetaminophen (T ylenol Extra Strength) 500 MG tablet every 6 (six) hours Active take 2 tablets by [facility] once daily in the morning as needed Acetaminophen 500 MG 2 tablet as needed Orally QAM Not-Taking [id number] 200 actuat albuterol 0.09 mg/actuat metered dose inhaler (5 sources) beta2-Adrenergic Agonist Start: 05-14-2024 albut benny HFA 90 mcg/act inhaler every 4 (four) hours 05/14/2024 Active Start: 04-26-2024 albuterol (PRO VENTIL) (2.5 MG/3ML) 0.083% nebulizer solution 2.5 mg ALPRAZolam 0.5 mg oral tablet (4 sources) Benzodiazepine take 1 tablet by mouth twice daily as needed ALPRAZolam (Xanax) 0.5 MG tablet Take 1 tablet by mouth 2 (two) times a day as needed Active amoxicillin 875 mg / clavulanate 125 mg oral tablet (5 sources) Penicillin-class Antibacterial Start: 3 take 1 tablet by mouth every twelve hours Amoxicillin-Pot Clavulanate 875-125 MG 1 tablet Orally every 12 hrs for 10 day(s) Nov, Active B Complex-Vitamin C-Folic Acid (Nephro-Vianca) 0.8 mg tablet (20 sources) Start: 3 take 1 tablet by mouth once daily [...] (20 sources) alpha-Adrenergic Yulissa, beta-Adrenergic Yulissa Start: 10-24-2024 take 1 tablet by mouth twice daily Carvedilol 25 mg tablet Active 0 .ROUTE .COMPLEX 180 October 24, 2024 5:21pm TAKE 1 TABLET BY MOUTH TWICE A DAY Start: 04-26-2024 carvedilol (CO REG) tablet 25 mg Start: 12-05-2021 End: 10-24-2024 take 1 tablet by mouth twice daily Carvedilol (Coreg) 25 mg tablet Discontinued 25 MG PO Twice daily 180 January 14, 2024 11:20am October 24, 2024 5:21pm TAKE 1 TABLET BY MOUTH TWICE A DAY Start: 07-21-2021 take 1 tablet by bobbi th every twelve hours Carvedilol 6.25 MG 1 tablet with food Orally Twice a day for 30 day(s) Jul, Active take 1 tablet by bobbi th every twelve hours Carvedilol 12.5 MG 1 tab(s) orally bid for 90 day(s) Active clobetasol propionate 0.0005 mg/mg topical ointment (5 sources) Corticosteroid Start: 08-21-2024 clobetasol (Te movate) 0.05 % ointment Indications: Psoriasis plantaris (CMS/HCC) Apply topically 2 (two) times a day 60 g 2 08/21/2024 Active Start: 11-14-2023 Clobetasol Pro pionate 0.05 % 1 application Externally Twice a [...] Ace Marr DO Start : 18-Feb-2020 Active 0.4 ml enoxaparin sodium 100 mg/ml prefilled syringe (1 source) Low Molecular Weight Heparin Start: 04-26-2024 enoxaparin (LOVENOX) injection 40 mg furosemide 40 mg oral tablet (20 sources) Loop Diuretic Start: 07-07-2024 take 1 tablet by mouth twice daily Furosemide 40 mg tablet Active 0 .ROUTE .COMPLEX 180 July 07, 2024 11:06am TAKE 1 TABLET BY MOUTH TWICE A DAY AT 8AM AND 4PM Start: 01-09-2024 End: 07-07-2024 take 1 tablet by mouth twice daily Furosemide 40 mg Tablet Discontinued 40 MG PO BID@0800,1600 180 January 09, 2024 12:00am July 07, 2024 11:06am Start: 12-15-2021 End: 02-20-2022 take 1 tablet by mouth once daily Furosemide 40 mg Tablet Discontinued 40 MG PO Daily December 31, [...] (20 sources) Anti-epileptic Agent Start: 05-22-2023 take 1 capsule by mouth twice daily Gabapentin 300 mg capsule Active 300 MG PO Twice daily May [...] 0 Refills: 0 Ordered: 13-Jul-2021 DO Active ibuprofen 800 mg oral tablet (1 source) Nonsteroidal Anti-inflammatory Drug Start: 07-15-2018 End: 04-27-2024 take 1 tablet by mouth every six hours as needed for pain ibuprofen (ADVIL;MOTRIN) 800 MG tablet Take 1 tablet by mouth every 6 hours as needed for Pain 120 tablet 5 07/15/2018 04/27/2024 Discontinued (Stop Taking at Discharge) levothyroxine sodium 0.1 mg oral tablet (20 sources) l-Thyroxine Start: 04-26-2024 levothyroxine (SYNTHROID) tablet 100 mcg Start: 05-22-2023 End: 01-14-2024 Levothyroxine 112 mcg tablet Active 100 MCG PO Daily January 14, 2024 11:20am Start: 05-22-2023 End: 01-14-2024 take 100 ug by mouth once daily Levothyroxine Active 1 00 MCG PO Daily January 14, 2024 11:20am Start: 05-22-2023 take 112 ug by mouth once jenny y Levothyroxine Active 112 MCG PO Daily May 21, 2023 11:00pm Start: 06-04-2019 End: 05-22-2023 take 1 tablet by mouth once daily in the morning Levothyroxine (Synthroid) 100 mcg tablet Discontinued 112 MCG PO Every morning December 05, 2021 1:00am May 22, 2023 9:47am TAKE 1 TABLET BY MOUTH EVERY MORNING ON AN EMPTY STOMACH Start: 09-17-2018 End: 04-26-2024 take 50 ug by mouth twice daily 50 mcg, Oral, 2 TIMES DAILY, First dose on 04/26/24 at 1315, Until Discontinued Tube feeding (TF) interaction, obtain physician order to manage, recommend holding TF for 30 minutes before and after dose. Start: 09-16-2018 take 0.5 tablet by m outh twice daily levothyroxine (SYNTHROID) 100 MCG tablet Take 0.5 tablets by mouth 2 times daily 90 tablet 2 09/16/2018 Active take 1 tablet by bobbi th once daily in the morning Levothyroxine Sodium 100 MCG TAKE 1 TABLET BY MOUTH EVERY MORNING ON AN EMPTY STOMACH orally qd for 90 days Active 50 ml magnesium sulfate 40 mg/ml injection (1 source) Start: 04-26-2024 magnesium sulfate 2000 mg in 50 mL IVPB premix methylPREDNISolone 4 mg oral tablet (2 sources) Corticosteroid Start: 05-15-2023 methylPREDNISolone 4 MG take half with breakfast, half with dinner Orally as directed for 6 May, Active minoxidil 10 mg oral tablet (20 sources) Arteriolar Vasodilator Start: 04-11-2024 take 1 tablet by mouth twice daily Minoxidil 10 mg tablet Active 0 .ROUTE .COMPLEX 180 April 11, 2024 11:11am TAKE 1 TABLET BY MOUTH TWICE A DAY Start: 05-22-2023 End: 04-11-2024 take 1 tablet by mouth twice daily Minoxidil 10 mg tablet Discontinued 10 MG PO Twice daily 180 January 14, 2024 11:20am April 11, 2024 11:11am Start: 07-11-2022 End: 05-22-2023 take 1 tablet by mouth twice daily Minoxidil 2.5 mg tablet Discontinued 10 MG PO Twice daily July 11, 2022 12:00am May 22, 2023 9:49am On Hold: Until cleared by nephrology Start: 07-11-2022 End: 05-22-2023 take 10 mg by mouth twice daily Minoxidil Discontinued 10 MG PO Twice daily July 11, 2022 12:00am May 22, 2023 9:49am Start: 07-11-2022 take 2.5 mg by mouth once jenny y Minoxidil Active 2.5 MG PO Daily July 10, 2022 11:00pm Nephro-Vianca 0.8 MG (10 sources) take 1 tablet by bobbi th once daily Nephro-Vianca 0.8 MG TAKE 1 TABLET BY MOUTH EVERY DAY for 90 Active take 1 tablet by mouth once jenny y Nephro-Vianca 0.8 MG TAKE 1 TABLET BY MOUTH EVERY DAY for 30 Active 24 hr nicotine 0.875 mg/hr transdermal system (1 source) Cholinergic Nicotinic Agonist Start: 04-26-2024 End: 04-29-2024 nicotine (NICODERM CQ) 21 MG/24HR 1 patch ondansetron (ZOFRAN-ODT) disintegrating tablet 4 mg (1 source) Start: 04-26-2024 ondansetron (ZOFRAN-ODT) disintegrating tablet 4 mg polyethylene glycol 3350 33129 mg powder for oral solution (1 source) Osmotic Laxative Start: 04-26-2024 polyethylene glycol (GLYCOLAX) packet 17 g polyethylene glycol 3350 390028 mg / potassium chloride 2970 mg / sodium bicarbonate 6740 mg / sodium chloride 5860 mg / sodium sulfate 25112 mg powder for oral solution (1 source) Osmotic Laxative Start: 01-08-2023 take 236 g by mouth once Golytely 236 GM as directed Orally THE DAY BEFORE COLONOSCOPY for 1 days Dec, Active Potassium Chloride (1 source) Start: 04-26-2024 potassium chloride 20 mEq/50 mL IVPB (Central Line) predniSONE 10 mg oral tablet (8 sources) Start: 08-21-2024 take 2 tablets by mouth twice daily, then take 1 tablet by mouth twice daily, then take 1 tablet by mouth once daily predniSONE (Deltasone) 10 MG tablet Indications: Psoriasis plantaris (CMS/HCC) Take 2 pills by mouth twice daily for 5 days, take 1 pill twice daily for 5 days then 1 pill once daily for 5 days. 35 tablet 08/21/2024 Active Start: 06-07-2022 take 1 tablet by bobbi th every twelve hours predniSONE 20 MG 1 tablet Orally 2 times a day for 5 day(s) May, Active sennosides, shelter 8.6 mg oral tablet (20 sources) Start: 12-15-2021 take 2 tablets by mouth every twenty-four hours Senna 8.6 MG 2 tablets at bedtime as needed Orally Once a day for 90 day(s) Dec, Active sevelamer carbonate 800 mg oral tablet (17 sources) Phosphate Binder Start: 07-11-2022 take 2 tablets by mouth three times daily at mealtime Sevelamer Carbonate (Renvela) 800 mg tablet Active 1600 MG PO THREE TIMES DAILY WITH MEALS July 11, 2022 12:00am 5 ml sodium chloride 9 mg/ml injection (3 sources) Start: 04-26-2024 0.9 % sodium chloride infusion Start: 04-26-2024 sodium chlorid e flush 0.9 % injection 5-40 mL sodium phosphate 15 mmol in sodium chloride 0.9 % 250 mL IVPB (1 source) Start: 04-26-2024 sodium phospha te 15 mmol in sodium chloride 0.9 % 250 mL IVPB sodium zirconium cyclosilicate 75746 mg powder for oral suspension (11 sources) [...] a day for 30 day(s) February, Active Start: 01-12-2018 End: 04-26-2024 traZODone (DESYREL) 50 MG ta blet 1-2 tabs at hs prn insomnia 30 tablet 3 01/12/2018 04/26/2024 Discontinued (LIST CLEANUP) triamcinolone acetonide 0.001 mg/mg topical ointment (20 [...] Class(es) Dates Sig (Normalized) Sig (Original) acetaminophen 325 mg / oxyCODONE hydrochloride 5 mg oral tablet (13 sources) Opioid Agonist Start: 08-24-2022 End: 03-01-2023 take 1 tablet by mouth every eight hours as needed for pain Oxycodone-Acetami nophen (Percocet) 5-325 mg tablet Discontinued 1 TAB PO Q8H as needed for pain 03 05August 24, 2022 March 01, 2023 12:20pm amLODIPine 10 mg oral tablet (20 sources) Dihydropyridine Calcium Channel Yulissa Start: 04-26-2024 take 10 mg by mouth once daily 10 mg, Oral, DAILY, First dose on 04/26/24 at 1345, Until Discontinued Start: 01-09-2024 take 1 tablet by bobbi th once daily Amlodipine 5 mg tablet Active 5 MG PO Daily January 09, 2024 12:00am Start: 12-05-2021 End: 03-01-2023 take 1 tablet by mouth once daily Amlodipine (Norvasc) 10 mg tablet Discontinued 10 MG PO Daily December 05, 2021 1:00am March 01, 2023 12:20pm TAKE 1 TABLET BY MOUTH EVERY DAY FOR 90 DAYS amLODIPine Besyl ate 10 MG Oral Tablet Quantity: 0 Refills: 0 Ordered: 13-Jul-2021 DO Active aspirin 81 mg delayed release oral tablet (20 sources) Platelet Aggregation Inhibitor, Nonsteroidal Anti-inflammatory Drug Start: 04-26-2024 take 81 mg by mouth once daily 81 mg, Oral, DAILY, First dose on 04/26/24 at 1315, Until Discontinued Do not crush or break. take 1 tablet by mouth once jenny y Aspirin 81 81 MG 1 tablet Orally [...] 1 tablet Orally Once a day Not-Taking atorvastatin 10 mg oral tablet (20 sources) HMG-CoA Reductase Inhibitor Start: 04-26-2024 take 10 mg by mouth once daily 10 mg, Oral, DAILY, First dose on 04/26/24 at 1315, Until Discontinued Start: 12-05-2021 take 1 tablet by bobbi th once daily Atorvastatin (Lipitor) 40 mg tablet Active 40 MG PO Daily December 05, 2021 1:00am TAKE 1 TABLET BY MOUTH EVERY DAY FOR 90 DAYS bisoprolol fumarate 10 mg oral tablet (7 sources) beta-Adrenergic Yulissa Start: 07-17-2018 End: 04-26-2024 take 1 tablet by mouth once daily Bisoprolol Fumarate 10 MG Oral Tablet Take 1 tablet daily Quantity: 90 Refills: 0 Ordered: 09-Feb-2020 Ace Marr DO Start : 25-Mar-2019 Active bisoprolol fumarate 10 mg / hydroCHLOROthiazide 6.25 mg oral tablet (1 source) Thiazide Diuretic, beta-Adrenergic Yulissa Start: 08-28-2018 End: 04-26-2024 take 1 tablet by mouth once daily bisoprolol-hydro chlorothiazide (ZIAC) 10-6.25 MG per tablet Indications: Essential hypertension Take 1 tablet by mouth daily 30 tablet 5 08/28/2018 04/26/2024 Discontinued (LIST CLEANUP) 168 hr cloNIDine 0.54000 mg/hr transdermal system (20 sources) Central alpha-2 Adrenergic Agonist Start: 07-11-2022 End: 03-01-2023 Clonidine 0.2 mg/24 hr patch weekly Discontinued 0.2 MG TRANSDERML every week July 11, 2022 12:00am March 01, 2023 12:20pm Start: 12-05-2021 End: 07-11-2022 take 1 tablet by mouth three times daily Clonidine Hcl 0.3 mg tablet Discontinued 0.3 MG PO Three times daily [...] 13-Jul-2021 DO Active take 3 tablets by [facility] every eight hours cloNIDine HCl 0.1 MG 3 tablet Orally tid for 90 day(s) Active take 3 tablets by [facility] every twelve hours cloNIDine HCl 0.1 MG 3 tablet Orally BID for 90 day(s) Active clopidogrel 75 mg oral tablet (20 sources) P2Y12 Platelet Inhibitor Start: 04-26-2024 take 75 mg by mouth once daily 75 mg, Oral, DAILY, First dose on 04/26/24 at 1315, Until Discontinued Start: 12-05-2021 End: 08-24-2022 take 1 tablet [...] Active diphenhydrAMINE hydrochloride 50 mg oral capsule (12 sources) Histamine-1 Receptor Antagonist Start: 03-01-2023 End: 05-22-2023 take 1 capsule by mouth once daily at bedtime Diphenhydramine Hcl 50 mg Capsule Discontinued 50 MG PO Daily at bedtime March 01, 2023 12:00am May 22, 2023 9:51am doxycycline hyclate 100 mg oral capsule (12 sources) Tetracycline-class Drug Start: 05-22-2023 End: 06-11-2023 take 1 capsule by mouth twice daily Doxycycline Hyclate 100 mg capsule Discontinued 100 MG PO Twice daily 10 May 22, 2023 12:00am June 11, 2023 [...] every other day for 90 day(s) Active 1 ml heparin sodium, porcine 1000 unt/ml injection (2 sources) Unfractionated Heparin, Anti-coagulant Start: 04-26-2024 End: 04-26-2024 heparin (porcine) injection 2,500 Units Start: 04-26-2024 End: 04-26-2024 heparin (porcine) injection 4,000 Units hydrALAZINE hydrochloride 50 mg oral tablet (20 sources) Arteriolar Vasodilator Start: 04-26-2024 End: 04-26-2024 take 1 dose by mouth three times daily 100 mg, Oral, EVERY 8 HOURS SCHEDULED (3 times per day), First dose on 04/26/24 at 1400, Until Discontinued Start: 08-24-2022 take 1 tablet by bobbi th twice daily Hydralazine 100 mg tablet Active 100 MG PO Twice daily August 24, 2022 1:00am Start: 08-24-2022 take 100 mg by mouth three times daily Hydralazine Active 100 MG PO Three times daily August 24, 2022 12:00am Start: 12-07-2021 End: 07-11-2022 take 2 tablets by mouth three times daily Hydralazine 50 mg Tablet Discontinued 100 MG PO Three times daily 180 December 07, 2021 1:00am July 11, 2022 6:29am Start: 12-07-2021 End: 07-11-2022 take 100 mg by mouth three times daily Hydralazine Discontinued 100 MG PO Three times daily 180 December 07, 2021 1:00am July 11, 2022 6:29am Start: 12-05-2021 End: 12-07-2021 take 1 tablet by mouth three times daily Hydralazine 50 mg tablet Discontinued 50 MG PO Three times daily December 05, 2021 1:00am December 07, 2021 12:45pm TAKE 1 TABLET BY MOUTH THREE TIMES A DAY take 2 tablets by mo uth every eight hours hydrALAZINE HCl 25 MG 2 tablets with food Orally Three times a day Active take 1 tablet by bobbi th every eight hours hydrALAZINE HCl 25 MG 1 tablet with food Orally Three times a day Active Ketorolac (20 sources) Nonsteroidal Anti-inflammatory Drug, Cyclooxygenase Inhibitor Start: 04-03-2020 Toradol per 15 mg 20 Mar, 2020 30 mg lisinopril 10 mg oral tablet (20 sources) Angiotensin Converting Enzyme Inhibitor Start: 04-26-2024 take 10 mg by mouth twice daily 10 mg, Oral, 2 times daily, First dose on 04/26/24 at 1315, Until Discontinued Start: 04-17-2024 take 1 tablet by bobbi th twice daily Lisinopril 20 mg tablet Active 0 .ROUTE .COMPLEX 180 April 17, 2024 7:43am TAKE 1 TABLET BY MOUTH TWICE A DAY Start: 01-09-2024 End: 04-17-2024 take 1 tablet by mouth once daily Lisinopril 10 mg tablet Discontinued 10 MG PO Daily January 14, 2024 11:23am April 17, 2024 7:43am Start: 08-24-2022 End: 01-09-2024 take 1 tablet by mouth twice daily Lisinopril 20 mg tablet Discontinued 20 MG PO Twice daily August 24, [...] BY MOUTH EVERY DAY FOR 90 DAYS sertraline 25 mg oral tablet (20 sources) Serotonin Reuptake Inhibitor Start: 09-15-2021 End: 12-30-2021 take 1 tablet by mouth once daily Sertraline (Zoloft) 25 mg tablet Discontinued 25 MG PO Daily December 05, 2021 1:00am December 30, 2021 10:20am TAKE 1 TABLET BY MOUTH EVERY DAY Problems Active Problems Problem Classification Problem Date Documented Date Episodic/Chronic Acute and unspecified renal failure (15 sources) Uremia; Translations: [Unspecified kidney failure] 12-30-2021 Chronic Acute cerebrovascular disease (20 sources) Cerebrovascular accident; Translations: [Cerebral artery occlusion, unspecified with cerebral infarction] Onset: 1 Resolved: 1 Chronic Allergic reactions (1 source) Dermatitis, unspecified Episodic Calculus of urinary tract (20 sources) Kidney [...] 2 Chronic obstructive pulmonary disease and bronchiectasis (18 sources) Acute exacerbation of chronic obstructive airways disease; Translations: [Chronic obstructive pulmonary disease with (acute) exacerbation] 03-01-2023 Chronic Congestive heart failure; nonhypertensive (6 sources) Acute on chronic diastolic heart failure; Translations: [Acute on chronic diastolic (congestive) heart failure] Onset: 4 04-26-2024 Chronic Coronary atherosclerosis and other heart disease (4 sources) Atherosclerotic heart disease of [place] coronary artery without angina pectoris; Translations: [Atherosclerotic heart disease of [place] coronary artery with unspecified angina pectoris] Onset: 4 Chronic Coronary atherosclerosis and other heart disease (2 sources) Presence of coronary angioplasty implant and graft; Translations: [Presence of coronary angioplasty implant and graft] Onset: 5 Episodic Deficiency and other anemia (20 sources) Anemia of renal disease; Translations: [Anemia in chronic kidney disease] 12-30-2021 Chronic Deficiency and other anemia (8 sources) Anemia in chronic kidney disease; Translations: [Anemia of renal disease D63.1] Onset: 1 Resolved: 2 Chronic Diseases of white blood cells (9 sources) Leukocytosis; Translations: [Elevated white blood cell count, unspecified] 01-08-2024 Chronic Disorders of lipid metabolism (20 sources) Hypercholesterolemia; Translations: [Pure hypercholesterolemia, unspecified] Onset: 4 12-05-2021 Chronic Esophageal disorders (1 source) Gastroesophageal reflux disease; Translations: [Gastro-esophageal reflux disease without esophagitis] Onset: 4 05-20-2014 Chronic Essential hypertension (20 sources) Hypertensive disorder; Translations: [Essential hypertension] Onset: 4 Resolved: 2 Chronic Hypertension with complications and secondary hypertension (20 sources) Chronic kidney disease due to hypertension; Translations: [Hypertensive chronic kidney disease with stage 1 through stage 4 chronic kidney disease, or unspecified chronic kidney disease] Onset: 1 Resolved: 2 Chronic Late effects of cerebrovascular disease (4 sources) Unspecified sequelae of cerebral infarction; Translations: [UNS SEQUELAE CEREBRAL INFARCTION] Onset: 2 Chronic Miscellaneous mental health disorders (20 sources) Primary insomnia; Translations: [Primary insomnia] Onset: 2 Resolved: 2 Chronic Mood disorders (1 source) Depressive disorder; Translations: [Depression] Onset: 4 05-20-2014 Chronic Nutritional deficiencies (20 sources) Vitamin D deficiency; Translations: [Vitamin D deficiency, unspecified] Onset: 1 Resolved: 2 Chronic Occlusion or stenosis of precerebral arteries (20 sources) Left carotid artery stenosis; Translations: [Occlusion and stenosis of left carotid artery] Onset: 2 Resolved: 2 Chronic Osteoarthritis (6 sources) Arthritis; Translations: [Arthropathy, unspecified, site unspecified] Chronic Other aftercare (1 source) Other eyeletter (current) drug therapy; Translations: [OTH PRINCIPAL SOFTWARE ARCHITECT CURRENT DRUG THERAPY] Onset: 2 Episodic Other bone disease and musculoskeletal deformities (6 sources) Segmental and somatic dysfunction; Translations: [Nonallopathic lesions, thoracic region] Episodic Other circulatory disease (20 sources) Acquired arteriovenous fistula aneurysm; Translations: [Arteriovenous fistula, acquired] Chronic Other circulatory disease (2 sources) Personal history of transient ischemic attack (TIA), and cerebral infarction without residual deficits; Translations: [Personal history of transient ischemic attack (TIA), and cerebral infarction without residual deficits] Onset: 5 Episodic Other connective tissue disease (6 sources) Bursitis of shoulder; Translations: [Disorders of bursae and tendons in shoulder region, unspecified] Episodic Other connective tissue disease (6 sources) Other bursitis of hip, left hip; Translations: [Bursitis of left hip] Episodic Other diseases of kidney and ureters (15 sources) Secondary hyperparathyroidism; Translations: [Secondary hyperparathyroidism of renal origin] 12-30-2021 Chronic Other diseases of kidney and ureters (2 sources) Secondary hyperparathyroidism of renal origin; Translations: [Secondary hyperparathyroidism (of renal origin)] 05-22-2023 Chronic Other endocrine disorders (20 sources) Hyperparathyroidism; Translations: [Hyperparathyroidism, unspecified] Chronic Other endocrine disorders (7 sources) Hyperparathyroidism, unspecified; Translations: [Hyperparathyroidism E21.3] Onset: 1 Resolved: 2 Chronic Other eye disorders (20 sources) Vitreous floaters; Translations: [Other vitreous opacities, bilateral] Chronic Other gastrointestinal disorders (4 sources) Constipation, unspecified; Translations: [CONSTIPATION UNSPECIFIED] Onset: 2 Episodic Other inflammatory condition of skin (2 sources) Psoriasis plantaris; 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] 08-21-2024 Chronic Other lower respiratory disease (12 sources) Acute pulmonary edema; Translations: [Acute pulmonary edema] 03-01-2023 Episodic Other lower respiratory disease (3 sources) Acute pulmonary edema; Translations: [Acute edema of lung, unspecified] 01-09-2024 Episodic Other nutritional; endocrine; and metabolic disorders (20 sources) Body mass index 30+ - obesity; Translations: [Body mass index (BMI) 31.0-31.9, adult] Chronic Other skin disorders (1 source) Sebaceous cyst Episodic Other skin disorders (1 source) Dyshidrosis [pompholyx] Episodic Peripheral and visceral atherosclerosis (2 sources) Peripheral vascular disease, unspecified; Translations: [Peripheral vascular disease, unspecified] Onset: 5 Chronic Residual codes; unclassified (20 sources) Obstructive sleep apnea syndrome; Translations: [Idiopathic sleep related nonobstructive alveolar hypoventilation] Chronic Residual codes; unclassified (4 sources) Obstructive sleep apnea (adult) (pediatric); Translations: [OBSTRUCTIVE SLEEP APNEA] Onset: 2 Chronic Residual codes; unclassified (6 sources) Generalized aches and pains; Translations: [Generalized pain] Episodic Residual codes; unclassified (20 sources) Insomnia; Translations: [Insomnia, unspecified] Episodic Residual codes; unclassified (12 sources) Tobacco user; Translations: [Tobacco use] 03-01-2023 Episodic Respiratory failure; insufficiency; arrest (adult) (20 sources) Acute and chronic respiratory failure with hypercapnia; Translations: [Acute on chronic hypoxemic and hypercapnic respiratory failure] 03-01-2023 Chronic Skin and subcutaneous tissue infections (16 sources) Cellulitis; Translations: [Cellulitis, unspecified] 05-22-2023 Episodic Spondylosis; intervertebral disc disorders; other back problems [...] UNSP] Onset: 2 Unclassified (1 source) Other pericardial effusion (noninflammatory); Translations: [Other pericardial effusion (noninflammatory)] Onset: 5 Viral infection (2 sources) Plantar wart of left foot; Translations: [Plantar wart] Episodic Past or Other Problems Problem Classification Problem Date Documented Da te Episodic/Chronic Acute and unspecified renal failure (1 source) Acute kidney failure, unspecified; Translations: [ACUTE KIDNEY FAILURE UNSPECIFIED] Onset: 12-14-2021 Episodic Bacterial infection; unspecified site (1 source) Bacteremia; Translations: [Bacteremia] Onset: 11-11-2024 Episodic Coagulation and hemorrhagic disorders (2 sources) Spontaneous ecchymoses; Translations: [Spontaneous ecchymoses] Onset: 03-12-2024 Episodic Conditions associated with dizziness or vertigo (1 source) Dizziness and giddiness; Translations: [DIZZINESS AND GIDDINESS] Onset: 09-13-2021 Episodic Fluid and electrolyte disorders (20 sources) Hyponatremia; Translations: [Hypo-osmolality and hyponatremia] Onset: 12-14-2021 02-18-2022 Episodic Genitourinary symptoms and ill-defined conditions (3 sources) Retention of urine, unspecified; Translations: [RETENTION OF URINE UNSPECIFIED] Onset: 02-18-2022 Episodic Lymphadenitis (4 sources) Generalized enlarged lymph nodes; Translations: [Localized enlarged lymph nodes] Onset: 03-12-2024 Episodic Other circulatory disease (1 source) Hypotension, unspecified Onset: 06-07-2022 Resolved: 06-07-2022 Episodic Other nutritional; endocrine; and metabolic disorders (1 source) H/O: thyroid disorder; Translations: [Personal history of other endocrine, nutritional and metabolic disease] Onset: 01-08-2015 01-08-2015 Episodic Other screening for suspected conditions (not mental disorders or infectious disease) (13 sources) Patient encounter status; Translations: [Screening for lipoid disorders] Onset: 07-18-2024 Episodic Other skin disorders (1 source) Localized [...] CARRIED OUT PT LEAVE] Onset: 11-25-2021 Episodic Respiratory failure; insufficiency; arrest (adult) (2 sources) Acute respiratory failure with hypoxia; Translations: [Acute respiratory failure with hypoxia] Onset: 05-27-2024 Episodic Sprains and strains (7 sources) Strain of trapezius muscle; Translations: [Sprains and strains of other specified sites of shoulder and upper arm] Onset: 06-07-2022 Resolved: 06-07-2022 Episodic Unclassified (2 sources) Patient encounter status; Translations: [Screening cholesterol level] Unclassified (1 source) CHRN KIDNEY DISEASE STG 3 UNSP; Translations: [CHRN KIDNEY DISEASE STG 3 UNSP] Onset: 12-22-2021 Unclassified (1 source) Other pericardial effusion (noninflammatory); Translations: [Other pericardial effusion (noninflammatory)] Onset: 02-16-2025 NEGATED: Highlighted row has not occurred!Residual codes; unclassified (5 sources) Disease Episodic Results Test Name Value Interpretation Reference Range Facility Potassiumon 02-05-2025 Potassium [Moles/Vol] 4.4 mmol/L Normal 3.5-5.1 [facility] Comment on above: Result Comment: PERF ORMED BY: [place] [id number] PATHOLOGIST [employer]ROAD CAR CHECKER IGNACIO MAGANA M.D. Performed By: #### K #### [facility] [address] [place], [place] [id number] [place] Potassium [Moles/volume] in Serum or PlasmaOrdered By: Toby Venegas on 02-05-2025 Potassium [Moles/Vol] Potassium [Moles/volume] in Serum or Plasma 3.5-5.1 [facility] Potassiumon 11-15-2024 Potassium [Moles/Vol] 4.6 mmol/L Normal 3.5-5.1 [facility] Comment on above: Result Comment: PERF ORMED BY: [place] [id number] PATHOLOGIST [employer]ILROAD CAR CHECKER IGNACIO MAGANA M.D. Performed By: #### K #### [facility] [address] [place], [place] [phone] [place] Potassium [Moles/volume] in Serum or PlasmaOrdered By: Junior Mora on 11-15-2024 Potassium [Moles/Vol] Potassium [Moles/volume] in Serum or Plasma 3.5-5.1 [facility] Blood Cultureon 11-11-2024 Bacteria identified Cx Nom (Bld) NO GROWTH 5 DAYS PERFORMED BY: [place] [id number] PATHOLOGIST [employer]ILRO[employer] CAR CHECKER IGNACIO MAGANA M.D. Normal [facility] Comment on above: Performed By: #### C UBLD #### [address] [address] [facility] Bacteria identified Cx Nom (Bld) NO GROWTH 5 DAYS PERFORMED BY: [place] [address] PATHOLOGIST [employer]RO[employer] CAR CHECKER IGNACIO MAGANA M.D. Normal [facility] Comment on above: Performed By: #### C UBLD #### [address] [address] Laboratory - Microbiology an d Antimicrobial susceptibilityOrdered By: Iván Govea on 11-11-2024 Bacteria identified Cx Nom (Bld) NO GROWTH [address] [facility] Bacteria identified Cx Nom (Bld) NO GROWTH [address] [facility] Potassiumon 10-31-2024 Potassium [Moles/Vol] 5.2 mmol/L High 3.5-5.1 [facility] Comment on above: Result Comment: PERF ORMED BY: [place] [address] PATHOLOGIST [employer]RO[employer] CAR CHECKER IGNACIO MAGANA M.D. Performed By: #### K #### [place] [id number] [facility] Potassium [Moles/volume] in Serum or PlasmaOrdered By: Toby Venegas on 10-31-2024 Potassium [Moles/Vol] Potassium [Moles/volume] in Serum or Plasma High 3.5-5.1 [facility] BASIC METABOLIC PANELon 12-1 Anion gap [Moles/Vol] 21 mmol/L High 7-20 [facility] Comment on above: Performed By: #### L [id number] ####[facility] (BEAKER)[address] [place] [address] Calcium [Mass/Vol] 9.3 mg/dL Normal 8.6-10.3 [facility] Comment on above: Performed By: #### L [id number] ####[facility] (BEAKER)[address] [place] [address] Chloride [Moles/Vol] 95 mmol/L Low 98-107 [facility] Comment on above: Performed By: #### L [id number] ####[facility] (BEAKER)[address] [place] [address] CO2 [Moles/Vol] 24 mmol/L Normal 21-31 [facility] Comment on above: Performed By: #### L [id number] ####[facility] [place] [address] Creatinine [Mass/Vol] 11.42 mg/dL High 0.70-1.30 [facility] Comment on above: Performed By: #### L [id number] ####[facility] ([facility])[address] [place] [address] GLOMERULAR FILTRATION RATE ML/MIN/1.73 SQ M.PREDICTED 4.8 mL/min/1.73m*2 Low >60.0 [facility] Comment on above: Result Comment: [facility]???s estimated glomerular filtration rate (eGFR) will no [...] of individuals. Performed By: #### L [id number] ####[facility] [place] [address] Glucose [Mass/Vol] 76 mg/dL Normal 70-100 [facility] Comment on above: Performed By: #### L [id number] ####[facility] [place] [address] Potassium [Moles/Vol] 5.6 mmol/L High 3.5-5.1 [facility] Comment on above: Performed By: #### L [id number] ####[facility] [place] [address] Sodium [Moles/Vol] 134 mmol/L Low 136-145 [facility] Comment on above: Performed By: #### L [id number] ####[facility] [place] [address] Urea nitrogen [Mass/Vol] 51 mg/dL High 7-25 [facility] Comment on above: Performed By: #### L [id number] ####[facility] ([facility])[address] [place] [address] UREA NITROGEN/CREATININE (MASS RATIO) IN SER/PLAS 4.5 Normal [facility] Comment on above: Performed By: #### L [id number] ####[facility] [place] [address] CBC WITH AUTO DIFFERENTIALon 09-23-2024 Basophils (Bld) [#/Vol] 0.05 10*3/uL Normal 0.00-0.20 [facility] Comment on above: Performed By: #### L [id number] ####[facility] (BEAKER)[address] [place] [address] Basophils/100 WBC (Bld) 0.6 % Normal 0.0-1.0 [facility] Comment on above: Performed By: #### L [id number] ####[facility] (BEAKER)[address] [place] [address] Eosinophils (Bld) [#/Vol] 0.77 10*3/uL High 0.00-0.50 [facility] Comment on above: Performed By: #### L [id number] ####[facility] (BEAKER)[address] [place] [address] Eosinophils/100 WBC (Bld) 8.6 % High 0.0-6.0 [facility] Comment on above: Performed By: #### L [id number] ####[facility] ([facility])[address] [place] [address] Erythrocyte distribution width (RBC) [Ratio] 14.6 % Normal 11.5-15.0 [facility] Comment on above: Performed By: #### L [id number] ####[facility] ([facility])[address] [place] [address] ERYTHROCYTE MEAN CORPUSCULAR HEMOGLOBIN CONCENTRATION (G/DL) BY AUTOMATED 31.0 g/dL Low 32.0-35.0 [facility] Comment on above: Performed By: #### L [id number] ####[facility] ([facility])[address] [place] [address] Hematocrit (Bld) [Volume fraction] 29.0 % Low 39.0-55.0 [facility] Comment on above: Performed By: #### L [id number] ####[facility] ([facility])[address] [place] [address] Hemoglobin (Bld) [Mass/Vol] 9.0 g/dL Low 13.0-17.0 [facility] Comment on above: Performed By: #### L [id number] ####[facility] ([facility])[address] [place] [address] Immature granulocytes (Bld) [#/Vol] 0.03 10*3/uL Normal 0.00-0.20 [facility] Comment on above: Performed By: #### L [id number] ####[facility] ([facility])[address] [place] [address] Immature granulocytes/100 WBC (Bld) 0.3 % Normal 0.0-1.0 [facility] Comment on above: Performed By: #### L [id number] ####[facility] ([facility])[address] [place] [address] Lymphocytes (Bld) [#/Vol] 0.53 10*3/uL Low 1.20-4.00 [facility] Comment on above: Performed By: #### L [id number] ####[facility] (BEAKER)[address] [place] [address] Lymphocytes/100 WBC (Bld) 5.9 % Low 20.0-45.0 [facility] Comment on above: Performed By: #### L [id number] ####[facility] (BEAKER)[address] [place] [address] MCH (RBC) [Entitic mass] 32.3 pg Normal 27.0-33.0 [facility] Comment on above: Performed By: #### L [id number] ####[facility] (BEAKER)[address] [place] [address] MCV (RBC) [Entitic vol] 103.9 fL High 82.0-98.0 [facility] Comment on above: Performed By: #### L [id number] ####[facility] (BEAKER)[address] [place] [address] Monocytes (Bld) [#/Vol] 0.71 10*3/uL Normal 0.10-1.00 [facility] Comment on above: Performed By: #### L [id number] ####[facility] (BEAKER)[address] [place] [address] Monocytes/100 WBC (Bld) 7.9 % Normal 5.0-12.0 [facility] Comment on above: Performed By: #### L [id number] ####[facility] (BEAKER)[address] [place] [address] Neutrophils (Bld) [#/Vol] 6.85 10*3/uL Normal 1.60-7.60 [facility] Comment on above: Performed By: #### L [id number] ####[facility] (BEAKER)[address] [place] [address] Neutrophils/100 WBC (Bld) 76.7 % High 40.0-72.0 [facility] Comment on above: Performed By: #### L [id number] ####[facility] (BEAKER)[address] [place] [address] NRBC (PER 100 WBCS) BY AUTOMATED COUNT 0.0 % Normal 0 [facility] Comment on above: Performed By: #### L [id number] ####[facility] ([facility])[address] [place] [address] PLATELETS (10*3/UL) IN BLOOD AUTOMATED COUNT 271 10*3/uL Normal 150-400 [facility] Comment on above: Performed By: #### L [id number] ####[facility] ([facility])[address] [place] [address] RBC (Bld) [#/Vol] 2.79 10*6/uL Low 4.20-5.70 [facility] Comment on above: Performed By: #### L [id number] ####[facility] ([facility])[address] [place] [address] WBC (Bld) [#/Vol] 8.94 10*3/uL Normal 4.00-10.60 [facility] Comment on above: Performed By: #### L [id number] ####[facility] ([facility])[address] [place] [address] CONSULTon 09-23-2024 CONSULT Normal [facility] DSon 09-23-2024 DS Normal [facility] HEPATITIS B CORE ANTIBODY, T OTALon 09-23-2024 HEPATITIS B VIRUS CORE AB (PRESENCE) IN SER/PLAS BY IMM Non-Reactive Normal Nonreactive [facility] Comment on above: Performed By: #### L [id number] ####[facility] ([facility])[address] [place] [address] HEPATITIS B SURFACE ANTIGENo n 09-23-2024 HEPATITIS B VIRUS SURFACE AG PRESENCE IN SERUM Non-Reactive Normal Nonreactive [facility] Comment on above: Performed By: #### L [id number] ####[facility] [place] [address] HEPATITIS C ANTIBODYon 09-23 HEPATITIS C VIRUS AB PRESENCE IN SERUM Non-Reactive Normal Nonreactive [facility] Comment on above: Performed By: #### L [id number] ####[facility] (BEAKER)[address] [place] [address] Orders Onlyon 09-23-2024 Orders Only Normal [facility] ANESon 09-22-2024 ANES Normal [facility] BASIC METABOLIC PANELon 12-0 Anion gap [Moles/Vol] 19 mmol/L Normal 7-20 [facility] Comment on above: Performed By: #### L [id number] ####[facility] (BEAKER)[address] [place] [address] Calcium [Mass/Vol] 8.7 mg/dL Normal 8.6-10.3 [facility] Comment on above: Performed By: #### L [id number] ####[facility] (BEAKER)[address] [place] [address] Chloride [Moles/Vol] 99 mmol/L Normal 98-107 [facility] Comment on above: Performed By: #### L [id number] ####[facility] (BEAKER)[address] [place] [address] CO2 [Moles/Vol] 24 mmol/L Normal 21-31 [facility] Comment on above: Performed By: #### L [id number] ####[facility] (BEAKER)[address] [place] [address] Creatinine [Mass/Vol] 9.51 mg/dL High 0.70-1.30 [facility] Comment on above: Performed By: #### L [id number] ####[facility] (BEAKER)[address] [place] [address] GLOMERULAR FILTRATION RATE ML/MIN/1.73 SQ M.PREDICTED 5.9 mL/min/1.73m*2 Low >60.0 [facility] Comment on above: Result Comment: [facility]???s estimated glomerular filtration rate (eGFR) will no [...] of individuals. Performed By: #### L [id number] ####[facility] ([facility])[address] [place] [address] Glucose [Mass/Vol] 83 mg/dL Normal 70-100 [facility] Comment on above: Performed By: #### L [id number] ####[facility] ([facility])[address] [place] [address] Potassium [Moles/Vol] 5.1 mmol/L Normal 3.5-5.1 [facility] Comment on above: Performed By: #### L [id number] ####[facility] ([facility])[address] [place] [address] Sodium [Moles/Vol] 137 mmol/L Normal 136-145 [facility] Comment on above: Performed By: #### L [id number] ####[facility] [place] [address] Urea nitrogen [Mass/Vol] 39 mg/dL High 7-25 [facility] Comment on above: Performed By: #### L [id number] ####[facility] [place] [address] UREA NITROGEN/CREATININE (MASS RATIO) IN SER/PLAS 4.1 Normal [facility] Comment on above: Performed By: #### L [id number] ####[facility] (BEAKER)[address] [place] [address] Anion gap [Moles/Vol] 18 mmol/L Normal 7-20 [facility] Comment on above: Performed By: #### L [id number] ####[facility] (BEAKER)[address] [place] [address] Calcium [Mass/Vol] 9.3 mg/dL Normal 8.6-10.3 [facility] Comment on above: Performed By: #### L [id number] ####[facility] [place] [address] Chloride [Moles/Vol] 98 mmol/L Normal 98-107 [facility] Comment on above: Performed By: #### L [id number] ####[facility] ([facility])[address] [place] [address] CO2 [Moles/Vol] 28 mmol/L Normal 21-31 [facility] Comment on above: Performed By: #### L [id number] ####[facility] ([facility])[address] [place] [address] Creatinine [Mass/Vol] 8.70 mg/dL High 0.70-1.30 [facility] Comment on above: Performed By: #### L [id number] ####[facility] ([facility])[address] [place] [address] GLOMERULAR FILTRATION RATE ML/MIN/1.73 SQ M.PREDICTED 6.6 mL/min/1.73m*2 Low >60.0 [facility] Comment on above: Result Comment: [facility]???s estimated glomerular filtration rate (eGFR) will no [...] of individuals. Performed By: #### L [id number] ####[facility] [place] [address] Glucose [Mass/Vol] 81 mg/dL Normal 70-100 [facility] Comment on above: Performed By: #### L [id number] ####[facility] [place] [address] Potassium [Moles/Vol] 5.2 mmol/L High 3.5-5.1 [facility] Comment on above: Performed By: #### L [id number] ####[facility] (BEAKER)[address] [place] [address] Sodium [Moles/Vol] 139 mmol/L Normal 136-145 [facility] Comment on above: Performed By: #### L [id number] ####[facility] (BEAKER)[address] [place] [address] Urea nitrogen [Mass/Vol] 38 mg/dL High 7-25 [facility] Comment on above: Performed By: #### L [id number] ####[facility] [place] [address] UREA NITROGEN/CREATININE (MASS RATIO) IN SER/PLAS 4.4 Normal [facility] Comment on above: Performed By: #### L [id number] ####[facility] (BEAKER)[address] [place] [address] CBCon 09-22-2024 Erythrocyte distribution width (RBC) [Ratio] 14.3 % Normal 11.5-15.0 [facility] Comment on above: Performed By: #### L [id number] ####[facility] (BEAKER)[address] [place] [address] ERYTHROCYTE MEAN CORPUSCULAR HEMOGLOBIN CONCENTRATION (G/DL) BY AUTOMATED 31.5 g/dL Low 32.0-35.0 [facility] Comment on above: Performed By: #### L [id number] ####[facility] (BEAKER)[address] [place] [address] Hematocrit (Bld) [Volume fraction] 30.2 % Low 39.0-55.0 [facility] Comment on above: Performed By: #### L [id number] ####[facility] (BEAKER)[address] [place] [address] Hemoglobin (Bld) [Mass/Vol] 9.5 g/dL Low 13.0-17.0 [facility] Comment on above: Performed By: #### L [id number] ####[facility] [place] [address] MCH (RBC) [Entitic mass] 32.4 pg Normal 27.0-33.0 [facility] Comment on above: Performed By: #### L [id number] ####[facility] ([facility])[address] [place] [address] MCV (RBC) [Entitic vol] 103.1 fL High 82.0-98.0 [facility] Comment on above: Performed By: #### L [id number] ####[facility] ([facility])[address] [place] [address] PLATELETS (10*3/UL) IN BLOOD AUTOMATED COUNT 317 10*3/uL Normal 150-400 [facility] Comment on above: Performed By: #### L [id number] ####[facility] ([facility])[address] [place] [address] RBC (Bld) [#/Vol] 2.93 10*6/uL Low 4.20-5.70 [facility] Comment on above: Performed By: #### L [id number] ####[facility] ([facility])[address] [place] [address] WBC (Bld) [#/Vol] 8.35 10*3/uL Normal 4.00-10.60 [facility] Comment on above: Performed By: #### L [id number] ####[facility] ([facility])[address] [place] [address] HPon 09-22-2024 HP Normal [facility] NURSNOTEon 09-22-2024 NURSNOTE Normal [facility] Letter (Out)on 09-01-2024 Letter (Out) [facility] Follow-Upon 07-18-2024 Follow-Up Normal [facility] Refillon 07-05-2024 Refill Normal [facility] Orders Onlyon 07-02-2024 Orders Only Normal [facility] 36on 06-24-2024 36 Normal [facility] Erroneous Telephone Encounte stefano 06-05-2024 Erroneous Telephone Encounter Normal [facility] Abstracton 06-03-2024 Abstract Normal [facility] 30on 05-31-2024 30 Normal [facility] BASIC METABOLIC PANELon 05-15 Anion gap [Moles/Vol] 15 mmol/L Normal - [facility] Comment on above: Performed By: #### L [id number] ####[facility] (BEAKER)[address] [place] [address] Calcium [Mass/Vol] 8.9 mg/dL Normal 8.6-10.3 [facility] Comment on above: Performed By: #### L [id number] ####[facility] (BEAKER)[address] [place] [address] Chloride [Moles/Vol] 97 mmol/L Low 98-107 [facility] Comment on above: Performed By: #### L [id number] ####[facility] (BEAKER)[address] [place] [address] CO2 [Moles/Vol] 29 mmol/L Normal - [facility] Comment on above: Performed By: #### L [id number] ####[facility] (BEAKER)[address] [place] [address] Creatinine [Mass/Vol] 8.22 mg/dL High 0.70-1.30 [facility] Comment on above: Performed By: #### L [id number] ####[facility] (BEAKER)[address] [place] [address] GLOMERULAR FILTRATION RATE ML/MIN/1.73 SQ M.PREDICTED 7.1 mL/min/1.73m*2 Low >60.0 [facility] Comment on above: Result Comment: The [facility]???s estimated glomerular filtration rate (eGFR) will no [...] of individuals. Performed By: #### L [id number] ####[facility] ([facility])[address] [place] [address] Glucose [Mass/Vol] 98 mg/dL Normal 70-100 [facility] Comment on above: Performed By: #### L [id number] ####[facility] ([facility])[address] [place] [address] Potassium [Moles/Vol] 4.3 mmol/L Normal 3.5-5.1 [facility] Comment on above: Performed By: #### L [id number] ####[facility] ([facility])[address] [place] [address] Sodium [Moles/Vol] 137 mmol/L Normal 136-145 [facility] Comment on above: Performed By: #### L [id number] ####[facility] ([facility])[address] [place] [address] Urea nitrogen [Mass/Vol] 38 mg/dL High 7-25 [facility] Comment on above: Performed By: #### L [id number] ####[facility] ([facility])[address] [place] [address] UREA NITROGEN/CREATININE (MASS RATIO) IN SER/PLAS 4.6 Normal [facility] Comment on above: Performed By: #### L [id number] ####[facility] ([facility])[address] [place] [address] CBCon 05-31-2024 Erythrocyte distribution width (RBC) [Ratio] 14.3 % Normal 11.5-15.0 [facility] Comment on above: Performed By: #### L [id number] ####[facility] (BEAKER)[address] [place] [address] ERYTHROCYTE MEAN CORPUSCULAR HEMOGLOBIN CONCENTRATION (G/DL) BY AUTOMATED 31.3 g/dL Low 32.0-35.0 [facility] Comment on above: Performed By: #### L [id number] ####[facility] (BEAKER)[address] [place], [place] [address] Hematocrit (Bld) [Volume fraction] 24.6 % Low 39.0-55.0 [facility] Comment on above: Performed By: #### L [id number] ####[facility] (BEAKER)[address] [place] [address] Hemoglobin (Bld) [Mass/Vol] 7.7 g/dL Low 13.0-17.0 [facility] Comment on above: Performed By: #### L [id number] ####[facility] (BEAKER)[address] [place] [address] MCH (RBC) [Entitic mass] 32.4 pg Normal 27.0-33.0 [facility] Comment on above: Performed By: #### L [id number] ####[facility] (BEAKER)[address] [place] [address] MCV (RBC) [Entitic vol] 103.4 fL High 82.0-98.0 [facility] Comment on above: Performed By: #### L [id number] ####[facility] (BEAKER)[address] [place] [address] PLATELETS (10*3/UL) IN BLOOD AUTOMATED COUNT 201 10*3/uL Normal 150-400 [facility] Comment on above: Performed By: #### L [id number] ####[facility] (BEAKER)[address] [place] [address] RBC (Bld) [#/Vol] 2.38 10*6/uL Low 4.20-5.70 [facility] Comment on above: Performed By: #### L [id number] ####[facility] (BEAKER)[address] [place] [address] WBC (Bld) [#/Vol] 7.64 10*3/uL Normal 4.00-10.60 [facility] Comment on above: Performed By: #### L [id number] ####[facility] ([facility])[address] [place] [address] DSon 05-31-2024 DS Normal [facility] MAGNESIUMon 05-31-2024 Magnesium [Mass/Vol] 2.1 mg/dL Normal 1.9-2.7 [facility] Comment on above: Performed By: #### L [id number] ####[facility] ([facility])[address] [place] [address] NURSNOTEon 05-31-2024 NURSNOTE Pt left AMA, RN at bedside when MD went over risks and AMA form. Pt walked out with all belongings, in stable condition with daughter to be tow driver home. 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 Normal [facility] PHOSPHORUSon 05-31-2024 Magnesium [Mass/Vol] 5.2 mg/dL High 2.5-5.0 [facility] Comment on above: Performed By: #### L [id number] ####[facility] ([facility])[address] [place] [address] [id number] 05-30-2024 [id number] Normal [facility] 30on 05-30-2024 30 Normal [facility] 30 Normal [facility] ANESon 05-30-2024 ANES Normal [facility] ANES Normal [facility] BASIC METABOLIC PANELon 05-15 Anion gap [Moles/Vol] 22 mmol/L High 7-20 [facility] Comment on above: Performed By: #### L [id number] ####[facility] ([facility])[address] [place] [address] Calcium [Mass/Vol] 9.1 mg/dL Normal 8.6-10.3 [facility] Comment on above: Performed By: #### L [id number] ####[facility] (BEAKER)[address] [place] [address] Chloride [Moles/Vol] 93 mmol/L Low 98-107 [facility] Comment on above: Performed By: #### L [id number] ####[facility] (BEAKER)[address] [place] [address] CO2 [Moles/Vol] 24 mmol/L Normal 21-31 [facility] Comment on above: Performed By: #### L [id number] ####[facility] ([facility])[address] [place] [address] Creatinine [Mass/Vol] 10.37 mg/dL High 0.70-1.30 [facility] Comment on above: Performed By: #### L [id number] ####[facility] ([facility])[address] [place] [address] GLOMERULAR FILTRATION RATE ML/MIN/1.73 SQ M.PREDICTED 5.4 mL/min/1.73m*2 Low >60.0 [facility] Comment on above: Result Comment: The [facility]???s estimated glomerular filtration rate (eGFR) will no [...] of individuals. Performed By: #### L [id number] ####[facility] ([facility] [place] [address] Glucose [Mass/Vol] 82 mg/dL Normal 70-100 [facility] Comment on above: Performed By: #### L [id number] ####[facility] (BEAKER)[address] [place] [address] Potassium [Moles/Vol] 4.7 mmol/L Normal 3.5-5.1 [facility] Comment on above: Performed By: #### L [id number] ####[facility] [place] [address] Sodium [Moles/Vol] 134 mmol/L Low 136-145 [facility] Comment on above: Performed By: #### L [id number] ####[facility] [place] [address] Urea nitrogen [Mass/Vol] 61 mg/dL High 7-25 [facility] Comment on above: Performed By: #### L [id number] ####[facility] ([facility])[address] [place] [address] UREA NITROGEN/CREATININE (MASS RATIO) IN SER/PLAS 5.9 Normal [facility] Comment on above: Performed By: #### L [id number] ####[facility] ([facility])[address] [place] [address] CBCon 05-30-2024 Erythrocyte distribution width (RBC) [Ratio] 14.5 % Normal 11.5-15.0 [facility] Comment on above: Performed By: #### L [id number] ####[facility] ([facility])[address] [place] [address] ERYTHROCYTE MEAN CORPUSCULAR HEMOGLOBIN CONCENTRATION (G/DL) BY AUTOMATED 32.4 g/dL Normal 32.0-35.0 [facility] Comment on above: Performed By: #### L [id number] ####[facility] ([facility] [place] [address] Hematocrit (Bld) [Volume fraction] 25.3 % Low 39.0-55.0 [facility] Comment on above: Performed By: #### L [id number] ####[facility] (BEAKER)[address] [place] [address] Hemoglobin (Bld) [Mass/Vol] 8.2 g/dL Low 13.0-17.0 [facility] Comment on above: Performed By: #### L [id number] ####[facility] ([facility] [place] [address] MCH (RBC) [Entitic mass] 32.3 pg Normal 27.0-33.0 [facility] Comment on above: Performed By: #### L [id number] ####[facility] ([facility] [place] [address] MCV (RBC) [Entitic vol] 99.6 fL High 82.0-98.0 [facility] Comment on above: Performed By: #### L [id number] ####[facility] ([facility] [place] [address] PLATELETS (10*3/UL) IN BLOOD AUTOMATED COUNT 205 10*3/uL Normal 150-400 [facility] Comment on above: Performed By: #### L [id number] ####[facility] ([facility])[address] [place] [address] RBC (Bld) [#/Vol] 2.54 10*6/uL Low 4.20-5.70 [facility] Comment on above: Performed By: #### L [id number] ####[facility] ([facility])[address] [place] [address] WBC (Bld) [#/Vol] 6.02 10*3/uL Normal 4.00-10.60 [facility] Comment on above: Performed By: #### L [id number] ####[facility] ([facility])[address] [place] [address] CONSULTon 05-30-2024 CONSULT Normal [facility] HISTOLOGY - TISSUE EXAMon LAB AP ASR DISCLAIMER Normal [facility] Comment on above: Order Comment: Pre-o p diagnosis:Lymphadenopathy [R59.1] Performed By: #### L [id number] ####[facility] ([facility] [place] [address] LAB AP CASE REPORT Normal [facility] Comment on above: Order Comment: Pre-o p diagnosis:Lymphadenopathy [R59.1] Result Comment: Surg ical Pathology Case: [id number] Provider: Nathaniel Sanabria MD Collected: 05/30/2024 1831Ordering Location: [facility] Main Operating Room Received: 06/02/2024 0539Pathologist: JOO Gonzalespecimens: A) - Groin, RT. GROIN LYMPHNODE BIOPSY (FRESH) B) - Groin, RT. GROIN LYMPHNODE BIOPSY Performed By: #### L [id number] ####[facility] (BEAKER)[address] [place] [address] LAB AP CLINICAL INFORMATION Normal [facility] Comment on above: Order Comment: Pre-o p diagnosis:Lymphadenopathy [R59.1] Result Comment: Post -Op [id number] - Lymphadenopathy [ICD-10-CM] Performed By: #### L [id number] ####[facility] ([employer])[address] [facility] [place] [address] LAB AP DIAGNOSIS COMMENT Normal [facility] Comment on above: Order Comment: Pre-o p diagnosis:Lymphadenopathy [R59.1] Performed By: #### L [id number] ####[facility] ([facility] [place] [address] LAB AP FLOW CYTOMETRY SUMMARY Normal [facility] Comment on above: Order Comment: Pre-o p diagnosis:Lymphadenopathy [R59.1] Result Comment: Flow cytometry studies were completed at [facility] [employer]:Leukemia/lymphoma phenotyping evaluation by flow cytometry, right groin lymph node: - Low viability (70%) specimen with increased CD4:CD8 ratio (10:1) without immunophenotypic aberrancy.- An increased CD4:CD8 ratio may be observed in Hodgkin lymphoma, autoimmune disorders, neoplasms, sarcoidosis and other conditions. Clinical correlation recommended. Performed By: #### L [id number] ####[facility] ([facility] [place] [address] LAB AP GROSS DESCRIPTION A. Groin. Normal [facility] Comment on above: Order Comment: Pre-o p diagnosis:Lymphadenopathy [R59.1] Result Comment: Rece ived fresh for lymphoma labeled Leander Massey RT. GROIN LYMPHNODE BIOPSY (FRESH) is a portion of holland-brown rubbery tissue consistent with lymph node, 1.5 x 1 x 0.7 cm with a small amount of attached yellow adipose tissue up to 0.4 cm. The indira cut surfaces are holland-brown with irregular holland-white nodular foci. Three portions are placed in RPMI media for flow cytometric studies. The remainder of the specimen is fixed in formalin and submitted in a single cassette.Timmy Trimble, Pathologists' AssistantB. Groin.Received in formalin labeled Leander W Brianne, Rt groin lymph node biopsy is a portion of holland-brown indira tissue, 1.1 x 0.8 x 0.9 cm with bulky attached adipose tissue up to 0.8 cm. The specimen is serially sectioned to reveal brown-barber variegated cut surfaces. The specimen is entirely submitted in 2 cassettes.Timmy Trimble, Pathologists' Breast Buffer Performed By: #### L [id number] ####[facility] ([facility])[address] [place] [address] LAB AP MICROSCOPIC DESCRIPTION Microscopic examination performed. [facility] Comment on above: Order Comment: Pre-o p diagnosis:Lymphadenopathy [R59.1] Performed By: #### L [id number] ####[facility] ([facility])[address] [place] [address] LAB AP REPORT FINAL DIAGNOSIS NARRATIVE [facility] Comment on above: Order Comment: Pre-o p diagnosis:Lymphadenopathy [R59.1] Result Comment: A,B. Lymph node, right groin, excision:- Mild follicular hyperplasia and reactive changes consistent with dermatopathic lymphadenopathy.- No evidence of lymphoproliferative disorder.- See comment. Performed By: #### L [id number] ####[facility] ([facility])[address] [place] [address] HPon 05-30-2024 HP H&P reviewed. The patient was examined and there are no changes to the H&P. [facility] MAGNESIUMon 05-30-2024 Magnesium [Mass/Vol] 2.1 mg/dL Normal 1.9-2.7 [facility] Comment on above: Performed By: #### L [id number] ####[facility] ([facility])[address] [place] [address] NURSNOTEon 05-30-2024 NURSNOTE Report received from Ambika QUEEN. Pt remains npo and is scheduled for a lymph node biopsy with dr sanabria [facility] OPNOTEon 05-30-2024 OPNOTE Normal [facility] PHOSPHORUSon 05-30-2024 Magnesium [Mass/Vol] 6.2 mg/dL High 2.5-5.0 [facility] Comment on above: Performed By: #### L [id number] ####[facility] ([place])[address] [place] [address] PROCALCITONIN TESTon 024 PROCALCITONIN IN BLOOD 2.27 ng/mL Critically high 0.00-0.1 0 [facility] Comment on above: Result Comment: Susp ected Lower Respiratory Tract Infection:0.1-0.25 ng/mL - Low likelihood for bacterial infection;Antibiotics discouraged.*>0.25 ng/mL - Increased likelihood bacterial infection;Antibiotics encouraged. Suspected Sepsis: Strongly consider initiating antibiotics in all unstable patients.0.1-0.5 ng/mL - Low likelihood for sepsis; Antibiotics discouraged.*>0.5 ng/mL - Increased likelihood sepsis; Antibiotics encouraged.>2.0 ng/mL - High risk of sepsis/septic shock; Antibiotics strongly encouraged. *Recommend retesting PCT within 6-12 hours if clinically indicated and initial PCT<0.5ng/mL Performed By: #### L [id number] ####[facility] ([facility])[address] [place] [address] APTTon 05-29-2024 ACTIVATED PARTIAL THROMBOPLASTIN TIME IN PPP BY COAGULATION ASSAY 32.2 Seconds Normal 25.0-35.0 [facility] Comment on above: Result Comment: Clin ical significance of the APTT is questionable in the presence of heparin. Performed By: #### L [id number] ####[facility] ([facility])[address] [place] [address] ACTIVATED PARTIAL THROMBOPLASTIN TIME IN PPP BY COAGULATION ASSAY 33.4 Seconds Normal 25.0-35.0 [facility] Comment on above: Result Comment: Clin ical significance of the APTT is questionable in the presence of heparin. Performed By: #### L [id number] ####[facility] ([facility])[address] [place] [address] BASIC METABOLIC PANELon 05-15 Anion gap [Moles/Vol] 16 mmol/L Normal 7-20 [facility] Comment on above: Performed By: #### L [id number] ####[facility] ([facility])[address] [place] [address] Calcium [Mass/Vol] 9.1 mg/dL Normal 8.6-10.3 [facility] Comment on above: Performed By: #### L [id number] ####[facility] ([facility])[address] [place] [address] Chloride [Moles/Vol] 94 mmol/L Low 98-107 [facility] Comment on above: Performed By: #### L [id number] ####[facility] ([facility])[address] [place] [address] CO2 [Moles/Vol] 28 mmol/L Normal 21-31 [facility] Comment on above: Performed By: #### L [id number] ####[facility] ([facility])[address] [place] [address] Creatinine [Mass/Vol] 8.33 mg/dL High 0.70-1.30 [facility] Comment on above: Performed By: #### L [id number] ####[facility] ([facility])[address] [place] [address] GLOMERULAR FILTRATION RATE ML/MIN/1.73 SQ M.PREDICTED 7.0 mL/min/1.73m*2 Low >60.0 [facility] Comment on above: Result Comment: The [facility]???s estimated glomerular filtration rate (eGFR) will no [...] of individuals. Performed By: #### L [id number] ####[facility] ([facility])[address] [place] [address] Glucose [Mass/Vol] 85 mg/dL Normal 70-100 [facility] Comment on above: Performed By: #### L [id number] ####[facility] ([facility])[address] [place] [address] Potassium [Moles/Vol] 4.3 mmol/L Normal 3.5-5.1 [facility] Comment on above: Performed By: #### L [id number] ####[facility] ([facility])[address] [place] [address] Sodium [Moles/Vol] 134 mmol/L Low 136-145 [facility] Comment on above: Performed By: #### L [id number] ####[facility] ([facility])[address] [place] [address] Urea nitrogen [Mass/Vol] 41 mg/dL High 7-25 [facility] Comment on above: Performed By: #### L [id number] ####[facility] [place] [address] UREA NITROGEN/CREATININE (MASS RATIO) IN SER/PLAS 4.9 Normal [facility] Comment on above: Performed By: #### L [id number] ####[facility] ([facility])[address] [place] [address] CBCon 05-29-2024 Erythrocyte distribution width (RBC) [Ratio] 14.7 % Normal 11.5-15.0 [facility] Comment on above: Performed By: #### L [id number] ####[facility] ([facility])[address] [place] [address] ERYTHROCYTE MEAN CORPUSCULAR HEMOGLOBIN CONCENTRATION (G/DL) BY AUTOMATED 32.2 g/dL Normal 32.0-35.0 [facility] Comment on above: Performed By: #### L [id number] ####[facility] ([facility])[address] [place] [address] Hematocrit (Bld) [Volume fraction] 23.9 % Low 39.0-55.0 [facility] Comment on above: Performed By: #### L [id number] ####[facility] ([facility])[address] [place] [address] Hemoglobin (Bld) [Mass/Vol] 7.7 g/dL Low 13.0-17.0 [facility] Comment on above: Performed By: #### L [id number] ####[facility] ([facility])[address] [place] [address] MCH (RBC) [Entitic mass] 32.2 pg Normal 27.0-33.0 [facility] Comment on above: Performed By: #### L [id number] ####[facility] [place] [address] MCV (RBC) [Entitic vol] 100.0 fL High 82.0-98.0 [facility] Comment on above: Performed By: #### L [id number] ####[facility] [place] [address] PLATELETS (10*3/UL) IN BLOOD AUTOMATED COUNT 177 10*3/uL Normal 150-400 [facility] Comment on above: Performed By: #### L [id number] ####[facility] ([facility])[address] [place] [address] RBC (Bld) [#/Vol] 2.39 10*6/uL Low 4.20-5.70 [facility] Comment on above: Performed By: #### L [id number] ####[facility] ([facility])[address] [place] [address] WBC (Bld) [#/Vol] 4.36 10*3/uL Normal 4.00-10.60 [facility] Comment on above: Performed By: #### L [id number] ####[facility] ([facility])[address] [place] [address] MAGNESIUMon 05-29-2024 Magnesium [Mass/Vol] 2.0 mg/dL Normal 1.9-2.7 [facility] Comment on above: Performed By: #### L [id number] ####[facility] ([facility])[address] [place] [address] PHOSPHORUSon 05-29-2024 Magnesium [Mass/Vol] 6.3 mg/dL High 2.5-5.0 [facility] Comment on above: Performed By: #### L [id number] ####[facility] ([facility])[address] [place] [address] PROTIME-INRon 05-29-2024 INR IN PPP BY COAGULATION ASSAY 1.06 Normal 0.90-1.10 [facility] Comment on above: Result Comment: ACCC P [...] CHEST 1995;[id number]. Performed By: #### L [id number] ####[facility] ([employer])[address] [place] [address] PROTHROMBIN TIME (PT) IN PPP BY COAGULATION ASSAY 13.8 Seconds Normal 12.3-14.8 [facility] Comment on above: Performed By: #### L [id number] ####[facility] ([facility])[address] [place] [address] INR IN PPP BY COAGULATION ASSAY 1.10 Normal 0.90-1.10 [facility] Comment on above: Result Comment: ACCC P [...] CHEST 1995;[id number]. Performed By: #### L [id number] ####[facility] ([facility])[address] [place] [address] PROTHROMBIN TIME (PT) IN PPP BY COAGULATION ASSAY 14.2 Seconds Normal 12.3-14.8 [facility] Comment on above: Performed By: #### L [id number] ####[facility] ([facility])[address] [place] [address] TSHon 05-29-2024 THYROTROPIN (MIU/L) IN SER/PLAS BY DETECTION LIMIT <= 0.05 MIU/L 0.09 mIU/L Low 0.34-5.60 [facility] Comment on above: Performed By: #### L [id number] ####[facility] ([facility])[address] [place] [address] TYPE AND SCREENon 05-29-2024 AB SCREEN Negative Normal [facility] Comment on above: Performed By: #### L [id number] ####[facility] BLOOD [facility]ANK, ABO group Nom (Bld) O Normal [facility] Comment on above: Performed By: #### L [id number] ####[facility] B[facility]OD [facility], RH TYPE IN BLOOD Positive Normal [facility] Comment on above: Performed By: #### L [id number] ####[facility] B[facility]OD [facility], BASIC METABOLIC PANELon 05-15 Anion gap [Moles/Vol] 21 mmol/L High 7-20 [facility] Comment on above: Performed By: #### L [id number] ####[facility] [place] [address] Calcium [Mass/Vol] 9.0 mg/dL Normal 8.6-10.3 [facility] Comment on above: Performed By: #### L [id number] ####[facility] [place] [address] Chloride [Moles/Vol] 94 mmol/L Low 98-107 [facility] Comment on above: Performed By: #### L [id number] ####[facility] ([facility])[address] [place] [address] CO2 [Moles/Vol] 27 mmol/L Normal 21-31 [facility] Comment on above: Performed By: #### L [id number] ####[facility] ([facility])[address] [place] [address] Creatinine [Mass/Vol] 8.00 mg/dL High 0.70-1.30 [facility] Comment on above: Performed By: #### L [id number] ####[facility] ([facility])[address] [place] [address] GLOMERULAR FILTRATION RATE ML/MIN/1.73 SQ M.PREDICTED 7.3 mL/min/1.73m*2 Low >60.0 [facility] Comment on above: Result Comment: [facility]???s estimated glomerular filtration rate (eGFR) will no [...] of individuals. Performed By: #### L [id number] ####[facility] ([facility] [place] [address] Glucose [Mass/Vol] 94 mg/dL Normal 70-100 [facility] Comment on above: Performed By: #### L [id number] ####[facility] ([facility] [place] [address] Potassium [Moles/Vol] 4.1 mmol/L Normal 3.5-5.1 [facility] Comment on above: Performed By: #### L [id number] ####[facility] ([facility] [place] [address] Sodium [Moles/Vol] 138 mmol/L Normal 136-145 [facility] Comment on above: Performed By: #### L [id number] ####[facility] ([facility])[address] [place] [address] Urea nitrogen [Mass/Vol] 37 mg/dL High 7-25 [facility] Comment on above: Performed By: #### L [id number] ####[facility] ([facility])[address] [place] [address] UREA NITROGEN/CREATININE (MASS RATIO) IN SER/PLAS 4.6 Normal [facility] Comment on above: Performed By: #### L [id number] ####[facility] ([facility])[address] [place] [address] CBC WITH AUTO DIFFERENTIALon 05-28-2024 Basophils (Bld) [#/Vol] 0.01 10*3/uL Normal 0.00-0.20 [facility] Comment on above: Performed By: #### L [id number] ####[facility] ([facility])[address] [place] [address] Basophils/100 WBC (Bld) 0.2 % Normal 0.0-1.0 [facility] Comment on above: Performed By: #### L [id number] ####[facility] ([facility])[address] [place] [address] Eosinophils (Bld) [#/Vol] 0.00 10*3/uL Normal 0.00-0.50 [facility] Comment on above: Performed By: #### L [id number] ####[facility] ([facility])[address] [place] [address] Eosinophils/100 WBC (Bld) 0.0 % Normal 0.0-6.0 [facility] Comment on above: Performed By: #### L [id number] ####[facility] ([facility] [place] [address] Erythrocyte distribution width (RBC) [Ratio] 14.9 % Normal 11.5-15.0 [facility] Comment on above: Performed By: #### L [id number] ####[facility] ([facility])[address] [place] [address] ERYTHROCYTE MEAN CORPUSCULAR HEMOGLOBIN CONCENTRATION (G/DL) BY AUTOMATED 31.3 g/dL Low 32.0-35.0 [facility] Comment on above: Performed By: #### L [id number] ####[facility] ([facility])[address] [place] [address] Hematocrit (Bld) [Volume fraction] 24.6 % Low 39.0-55.0 [facility] Comment on above: Performed By: #### L [id number] ####[facility] ([facility])[address] [place] [address] Hemoglobin (Bld) [Mass/Vol] 7.7 g/dL Low 13.0-17.0 [facility] Comment on above: Performed By: #### L [id number] ####[facility] ([facility])[address] [place] [address] Immature granulocytes (Bld) [#/Vol] 0.02 10*3/uL Normal 0.00-0.20 [facility] Comment on above: Performed By: #### L [id number] ####[facility] ([facility])[address] [place] [address] Immature granulocytes/100 WBC (Bld) 0.4 % Normal 0.0-1.0 [facility] Comment on above: Performed By: #### L [id number] ####[facility] ([facility])[address] [place] [address] Lymphocytes (Bld) [#/Vol] 0.19 10*3/uL Low 1.20-4.00 [facility] Comment on above: Performed By: #### L [id number] ####[facility] ([facility])[address] [place] [address] Lymphocytes/100 WBC (Bld) 3.6 % Low 20.0-45.0 [facility] Comment on above: Performed By: #### L [id number] ####[facility] ([facility])[address] [place] [address] MCH (RBC) [Entitic mass] 32.6 pg Normal 27.0-33.0 [facility] Comment on above: Performed By: #### L [id number] ####[facility] ([facility])[address] [place] [address] MCV (RBC) [Entitic vol] 104.2 fL High 82.0-98.0 [facility] Comment on above: Performed By: #### L [id number] ####[facility] ([facility] [place] [address] Monocytes (Bld) [#/Vol] 0.04 10*3/uL Low 0.10-1.00 [facility] Comment on above: Performed By: #### L [id number] ####[facility] ([facility])[address] [place] [address] Monocytes/100 WBC (Bld) 0.8 % Low 5.0-12.0 [facility] Comment on above: Performed By: #### L [id number] ####[facility] ([facility] [place] [address] Neutrophils (Bld) [#/Vol] 5.06 10*3/uL Normal 1.60-7.60 [facility] Comment on above: Performed By: #### L [id number] ####[facility] ([facility] [place] [address] Neutrophils/100 WBC (Bld) 95.0 % High 40.0-72.0 [facility] Comment on above: Performed By: #### L [id number] ####[facility] ([facility] [place] [address] NRBC (PER 100 WBCS) BY AUTOMATED COUNT 0.0 % Normal 0 [facility] Comment on above: Performed By: #### L [id number] ####[facility] ([facility])[address] [place] [address] PLATELETS (10*3/UL) IN BLOOD AUTOMATED COUNT 216 10*3/uL Normal 150-400 [facility] Comment on above: Performed By: #### L [id number] ####[facility] ([facility])[address] [place] [address] RBC (Bld) [#/Vol] 2.36 10*6/uL Low 4.20-5.70 [facility] Comment on above: Performed By: #### L [id number] ####[facility] ([facility])[address] [place] [address] WBC (Bld) [#/Vol] 5.32 10*3/uL Normal 4.00-10.60 [facility] Comment on above: Performed By: #### L [id number] ####[facility] ([facility])[address] [place] [address] COMPREHENSIVE METABOLIC PANE Fletcher 05-28-2024 Albumin [Mass/Vol] 3.4 g/dL Low 3.5-5.7 [facility] Comment on above: Performed By: #### L [id number] ####[facility] ([facility])[address] [place] [address] ALP [Catalytic activity/Vol] 58 U/L Normal 34-104 [facility] Comment on above: Performed By: #### L [id number] ####[facility] ([facility])[address] [place] [address] ALT [Catalytic activity/Vol] 4 U/L Low 7-52 [facility] Comment on above: Performed By: #### L [id number] ####[facility] ([facility])[address] [place] [address] Anion gap [Moles/Vol] 22 mmol/L High 7-20 [facility] Comment on above: Performed By: #### L [id number] ####[facility] ([facility] [place] [address] AST [Catalytic activity/Vol] 6 U/L Low 13-39 [facility] Comment on above: Performed By: #### L [id number] ####[facility] ([facility])[address] [place] [address] Bilirubin [Mass/Vol] 0.4 mg/dL Normal 0.3-1.0 [facility] Comment on above: Performed By: #### L [id number] ####[facility] ([facility])[address] [place] [address] Calcium [Mass/Vol] 9.1 mg/dL Normal 8.6-10.3 [facility] Comment on above: Performed By: #### L [id number] ####[facility] ([facility])[address] [place] [address] Chloride [Moles/Vol] 97 mmol/L Low 98-107 [facility] Comment on above: Performed By: #### L [id number] ####[facility] ([facility])[address] [place] [address] CO2 [Moles/Vol] 23 mmol/L Normal 21-31 [facility] Comment on above: Performed By: #### L [id number] ####[facility] ([facility])[address] [place] [address] Creatinine [Mass/Vol] 13.14 mg/dL High 0.70-1.30 [facility] Comment on above: Performed By: #### L [id number] ####[facility] ([facility])[address] [place] [address] GLOMERULAR FILTRATION RATE ML/MIN/1.73 SQ M.PREDICTED 4.0 mL/min/1.73m*2 Low >60.0 [facility] Comment on above: Result Comment: [facility]???s estimated glomerular filtration rate (eGFR) will no [...] of individuals. Performed By: #### L [id number] ####[facility] ([facility])[address] [place] [address] Glucose [Mass/Vol] 109 mg/dL High 70-100 [facility] Comment on above: Performed By: #### L [id number] ####[facility] ([facility])[address] [place] [address] Potassium [Moles/Vol] 5.2 mmol/L High 3.5-5.1 [facility] Comment on above: Performed By: #### L [id number] ####[facility] ([facility])[address] [place] [address] Protein [Mass/Vol] 5.6 g/dL Low 6.0-8.3 [facility] Comment on above: Performed By: #### L [id number] ####[facility] ([facility])[address] [place] [address] Sodium [Moles/Vol] 137 mmol/L Normal 136-145 [facility] Comment on above: Performed By: #### L [id number] ####[facility] ([facility])[address] [place] [address] Urea nitrogen [Mass/Vol] 73 mg/dL High 7-25 [facility] Comment on above: Performed By: #### L [id number] ####[facility] ([facility])[address] [place] [address] UREA NITROGEN/CREATININE (MASS RATIO) IN SER/PLAS 5.6 [facility] Comment on above: Performed By: #### L [id number] ####[facility] ([facility])[address] [place] [address] CONSULTon 05-28-2024 CONSULT Normal [facility] CONSULT Normal [facility] CONSULT Normal [facility] FERRITINon 05-28-2024 FERRITIN (NG/ML) IN SER/PLAS 437.0 ng/mL High 24.0-336.0 [facility] Comment on above: Performed By: #### L [id number] ####[facility] [place] [address] FOLATEon 05-28-2024 FOLATE (NG/ML) IN SER/PLAS 13.02 ng/mL Normal 6.6-1000 [facility] Comment on above: Performed By: #### L [id number] ####[facility] ([facility] [place] [address] HEMOGLOBIN AND HEMATOCRIT, B LOODon 05-28-2024 Hematocrit (Bld) [Volume fraction] 23.8 % Low 39.0-55.0 [facility] Comment on above: Performed By: #### L [id number] ####[facility] ([facility] [place] [address] Hemoglobin (Bld) [Mass/Vol] 8.0 g/dL Low 13.0-17.0 [facility] Comment on above: Performed By: #### L [id number] ####[facility] ([facility] [place] [address] IRON AND TIBCon 05-28-2024 IRON (UG/DL) IN SER/PLAS 31 ug/dL Low 50-212 [facility] Comment on above: Performed By: #### L [id number] ####[facility] ([facility])[address] [place] [address] IRON BINDING CAPACITY (UG/DL) IN SER/PLAS 198 ug/dL Low 250-450 [facility] Comment on above: Performed By: #### L [id number] ####[facility] ([facility])[address] [place] [address] IRON BINDING CAPACITY.UNSATURATED (UG/DL) IN SER/PLAS 167.0 ug/dL Normal 155.0-355.0 [facility] Comment on above: Performed By: #### L [id number] ####[facility] ([facility])[address] [place] [address] IRON SATURATION (%) IN SER/PLAS 16 % Low 20-50 [facility] Comment on above: Performed By: #### L [id number] ####[facility] ([facility])[address] [place] [address] MAGNESIUMon 05-28-2024 Magnesium [Mass/Vol] 1.9 mg/dL Normal 1.9-2.7 [facility] Comment on above: Performed By: #### L [id number] ####[facility] ([facility])[address] [place] [address] Magnesium [Mass/Vol] 2.2 mg/dL Normal 1.9-2.7 [facility] Comment on above: Performed By: #### L [id number] ####[facility] ([facility])[address] [place] [address] PHOSPHORUSon 05-28-2024 Magnesium [Mass/Vol] 6.5 mg/dL High 2.5-5.0 [facility] Comment on above: Performed By: #### L [id number] ####[facility] ([facility])[address] [place] [address] PTH, INTACTon 05-28-2024 PARATHYRIN INTACT (PG/ML) IN SER/PLAS 249 pg/mL High 12-88 [facility] Comment on above: Performed By: #### L [id number] ####[facility] ([facility])[address] [place] [address] SPUTUM CULTUREon 05-28-2024 Bacteria identified Cx Nom (Unsp spec) KLEBSIELLA PNEUMONIAE SSP PNEUMONIAE Abnormal [facility] Comment on above: Order Comment: Light Growth Colonies Consistent with Upper Respiratory Marilin Result Comment: Kleb siella pneumoniae ssp pneumoniaeSusceptibility to Follow Performed By: #### L [id number] ####[facility] ([facility])[address] [place] [address] GRAM STAIN RESULT Normal [facility] Comment on above: Order Comment: Light Growth Colonies Consistent with Upper Respiratory Marilin Result Comment: <10 Squamous Epithelial Cells Per Low Power Field<10 Polys Per Low Power FieldNo organisms seen Performed By: #### L [id number] ####[facility] [place] [address] VITAMIN B12on 05-28-2024 Cobalamin (Vitamin B12) [Mass/Vol] 1004 pg/mL High 180-914 [facility] Comment on above: Result Comment: REFE RENCE RANGES:180-914 pg/mL [id number] pg/mL Indeterminate<145 pg/mL Deficient Performed By: #### L [id number] ####[facility] [place] [address] 30on 05-27-2024 30 Normal [facility] APTTon 05-27-2024 ACTIVATED PARTIAL THROMBOPLASTIN TIME IN PPP BY COAGULATION ASSAY 27.7 Seconds Normal 25.0-35.0 [facility] Comment on above: Result Comment: Clin ical significance of the APTT is questionable in the presence of heparin. Performed By: #### L [id number] ####[facility] [place] [address] B-TYPE NATRIURETIC PEPTIDEon 05-27-2024 Natriuretic peptide B (Bld) [Mass/Vol] 1059 pg/mL High 0-100 [facility] Comment on above: Performed By: #### L [id number] ####[facility] ([facility])[address] [place] [address] BASIC METABOLIC PANELon 05-15 Anion gap [Moles/Vol] 23 mmol/L High 7-20 [facility] Comment on above: Performed By: #### L [id number] ####[facility] [place] [address] Calcium [Mass/Vol] 9.3 mg/dL Normal 8.6-10.3 [facility] Comment on above: Performed By: #### L [id number] ####[facility] [place] [address] Chloride [Moles/Vol] 97 mmol/L Low 98-107 [facility] Comment on above: Performed By: #### L [id number] ####[facility] ([facility])[address] [place] [address] CO2 [Moles/Vol] 23 mmol/L Normal 21-31 [facility] Comment on above: Performed By: #### L [id number] ####[facility] [place] [address] Creatinine [Mass/Vol] 12.02 mg/dL High 0.70-1.30 [facility] Comment on above: Performed By: #### L [id number] ####[facility] ([facility])[address] [place] [address] GLOMERULAR FILTRATION RATE ML/MIN/1.73 SQ M.PREDICTED 4.5 mL/min/1.73m*2 Low >60.0 [facility] Comment on above: Result Comment: [facility]???s estimated glomerular filtration rate (eGFR) will no [...] of individuals. Performed By: #### L [id number] ####[facility] (BEAKER)[address] [place] [address] Glucose [Mass/Vol] 92 mg/dL Normal 70-100 [facility] Comment on above: Performed By: #### L [id number] ####[facility] (BEAKER)[address] [place] [address] Potassium [Moles/Vol] 5.2 mmol/L High 3.5-5.1 [facility] Comment on above: Performed By: #### L [id number] ####[facility] (BEAKER)[address] [place] [address] Sodium [Moles/Vol] 138 mmol/L Normal 136-145 [facility] Comment on above: Performed By: #### L [id number] ####[facility] ([facility])[address] [place] [address] Urea nitrogen [Mass/Vol] 66 mg/dL High 7-25 [facility] Comment on above: Performed By: #### L [id number] ####[facility] ([facility])[address] [place] [address] UREA NITROGEN/CREATININE (MASS RATIO) IN SER/PLAS 5.5 Normal [facility] Comment on above: Performed By: #### L [id number] ####[facility] ([facility])[address] [place] [address] CBC WITH AUTO DIFFERENTIALon 05-27-2024 Basophils (Bld) [#/Vol] 0.01 10*3/uL Normal 0.00-0.20 [facility] Comment on above: Performed By: #### L [id number] ####[facility] ([facility])[address] [place] [address] Basophils/100 WBC (Bld) 0.1 % Normal 0.0-1.0 [facility] Comment on above: Performed By: #### L [id number] ####[facility] ([facility])[address] [place] [address] Eosinophils (Bld) [#/Vol] 0.07 10*3/uL Normal 0.00-0.50 [facility] Comment on above: Performed By: #### L [id number] ####[facility] ([facility])[address] [place] [address] Eosinophils/100 WBC (Bld) 0.9 % Normal 0.0-6.0 [facility] Comment on above: Performed By: #### L [id number] ####[facility] ([facility])[address] [place] [address] Erythrocyte distribution width (RBC) [Ratio] 14.9 % Normal 11.5-15.0 [facility] Comment on above: Performed By: #### L [id number] ####[facility] (BE[facility]ER)[address] [place] [address] ERYTHROCYTE MEAN CORPUSCULAR HEMOGLOBIN CONCENTRATION (G/DL) BY AUTOMATED 31.6 g/dL Low 32.0-35.0 [facility] Comment on above: Performed By: #### L [id number] ####[facility] ([facility])[address] [place] [address] Hematocrit (Bld) [Volume fraction] 28.5 % Low 39.0-55.0 [facility] Comment on above: Performed By: #### L [id number] ####[facility] ([facility])[address] [place] [address] Hemoglobin (Bld) [Mass/Vol] 9.0 g/dL Low 13.0-17.0 [facility] Comment on above: Performed By: #### L [id number] ####[facility] ([facility]ER)[address] [place] [address] Immature granulocytes (Bld) [#/Vol] 0.03 10*3/uL Normal 0.00-0.20 [facility] Comment on above: Performed By: #### L [id number] ####[facility] ([facility])[address] [place] [address] Immature granulocytes/100 WBC (Bld) 0.4 % Normal 0.0-1.0 [facility] Comment on above: Performed By: #### L [id number] ####[facility] ([facility]ER)[address] [place] [address] Lymphocytes (Bld) [#/Vol] 0.53 10*3/uL Low 1.20-4.00 [facility] Comment on above: Performed By: #### L [id number] ####[facility] ([facility]ER)[address] [place] [address] Lymphocytes/100 WBC (Bld) 6.7 % Low 20.0-45.0 [facility] Comment on above: Performed By: #### L [id number] ####[facility] ([facility]ER)[address] [place] [address] MCH (RBC) [Entitic mass] 32.8 pg Normal 27.0-33.0 [facility] Comment on above: Performed By: #### L [id number] ####[facility] ([facility]ER)[address] [place] [address] MCV (RBC) [Entitic vol] 104.0 fL High 82.0-98.0 [facility] Comment on above: Performed By: #### L [id number] ####[facility] ([facility]ER)[address] [place] [address] Monocytes (Bld) [#/Vol] 0.51 10*3/uL Normal 0.10-1.00 [facility] Comment on above: Performed By: #### L [id number] ####[facility] [place] [address] Monocytes/100 WBC (Bld) 6.4 % Normal 5.0-12.0 [facility] Comment on above: Performed By: #### L [id number] ####[facility] ([facility]ER)[address] [place] [address] Neutrophils (Bld) [#/Vol] 6.78 10*3/uL Normal 1.60-7.60 [facility] Comment on above: Performed By: #### L [id number] ####[facility] [place] [address] Neutrophils/100 WBC (Bld) 85.5 % High 40.0-72.0 [facility] Comment on above: Performed By: #### L [id number] ####[facility] ([facility]ER)[address] [place] [address] NRBC (PER 100 WBCS) BY AUTOMATED COUNT 0.0 % Normal 0 [facility] Comment on above: Performed By: #### L [id number] ####[facility] ([facility]ER)[address] [place] [address] PLATELETS (10*3/UL) IN BLOOD AUTOMATED COUNT 224 10*3/uL Normal 150-400 [facility] Comment on above: Performed By: #### L [id number] ####[facility] ([facility])[address] [place] [address] RBC (Bld) [#/Vol] 2.74 10*6/uL Low 4.20-5.70 [facility] Comment on above: Performed By: #### L [id number] ####[facility] ([facility])[address] [place] [address] WBC (Bld) [#/Vol] 7.93 10*3/uL Normal 4.00-10.60 [facility] Comment on above: Performed By: #### L [id number] ####[facility] ([facility])[address] [place] [address] D-DIMER, QUANTITATIVEon 05-15 FIBRIN D-DIMER (UG/L FEU) IN PLATELET POOR PLASMA 2.62 mcg/mL FEU High 0.27-0.49 [facility] Comment on above: Order Comment: D-Dim er values of less than 0.50 ug/ml (FEU) are considered to be a negative predictor of thrombosis. However, the D-Dimer result should be used in conjunction with pretest probability and should not be used alone to diagnose a thrombotic event. Performed By: #### L [id number] ####[facility] ([facility])[address] [place] [address] HPon 05-27-2024 HP Normal [facility] LACTIC ACID WITH 4 HOUR REFL EXon 05-27-2024 LACTATE (MMOL/L) IN SER/PLAS 0.7 mmol/L Normal 0.5-2.2 [facility] Comment on above: Performed By: #### L [id number] ####[facility] ([facility])[address] [place] [address] MAGNESIUMon 05-27-2024 Magnesium [Mass/Vol] 2.2 mg/dL Normal 1.9-2.7 [facility] Comment on above: Performed By: #### L [id number] ####[facility] ([facility])[address] [place] [address] MRSA/MSSA DNA NASALon 2023 MRSA DNA Negative Normal Negative [facility] Comment on above: Order Comment: Testi ng [...] preclude nasal colonization. Performed By: #### L [id number] ####[facility] ([facility])[address] [place] [address] MSSA DNA Negative Normal Negative [facility] Comment on above: Order Comment: Testi ng [...] preclude nasal colonization. Performed By: #### L [id number] ####[facility] ([facility])[address] [place] [address] PHOSPHORUSon 05-27-2024 Magnesium [Mass/Vol] 5.9 mg/dL High 2.5-5.0 [facility] Comment on above: Performed By: #### L [id number] ####[facility] ([facility])[address] [place] [address] PRO-BNPon 05-27-2024 PRO B-TYPE NATRIURETIC PEPTIDE >02117 High 0-300 [facility] Comment on above: Result Comment: An a ge-independent cutoff point of 300 pg/ml has a 98% negative predictive value excluding acute heart failure.Test Performed by [facility] [address] [place] [address], [place] [address] - Released 05/28/2024 01:08 Performed By: #### L [id number] ####[facility] [id number] [place] [address] RESPIRATORY VIRUS PCR PANELo n 05-27-2024 ADENOVIRUS DETECTION BY PCR Not detected Normal Not Detected [facility] Comment on above: Order Comment: Testi ng methodology is a multiplexed nucleic acid test intended for the simultaneous qualitative detection and differentiation of nucleic acids from multiple viral and bacterial respiratory organisms in nasopharyngeal swabs (CHAIN CARRIER). Performed By: #### L [id number] ####[facility] ([facility])[address] [place] [address] B. PARAPERTUSSIS DNA Not detected Normal Not Detected [facility] Comment on above: Order Comment: Testi ng methodology is a multiplexed nucleic acid test intended for the simultaneous qualitative detection and differentiation of nucleic acids from multiple viral and bacterial respiratory organisms in nasopharyngeal swabs (CHAIN CARRIER). Performed By: #### L [id number] ####[facility] ([facility])[address] [place] [address] BORDETELLA PERTUSSIS DNA PRESENCE IN UNSPECIFIED SPECIMEN BY NE* Not detected Normal Not Detected [facility] Comment on above: Order Comment: Testi ng methodology is a multiplexed nucleic acid test intended for the simultaneous qualitative detection and differentiation of nucleic acids from multiple viral and bacterial respiratory organisms in nasopharyngeal swabs (CHAIN CARRIER). Performed By: #### L [id number] ####[facility] ([facility] [place] [address] CHLAMYDOPHILA PNEUMONIAE Not detected Normal Not Detected [facility] Comment on above: Order Comment: Testi ng methodology is a multiplexed nucleic acid test intended for the simultaneous qualitative detection and differentiation of nucleic acids from multiple viral and bacterial respiratory organisms in nasopharyngeal swabs (CHAIN CARRIER). Performed By: #### L [id number] ####[facility] ([facility] [place] [address] CORONAVIRUS 229E Not detected Normal Not Detected [facility] Comment on above: Order Comment: Testi ng methodology is a multiplexed nucleic acid test intended for the simultaneous qualitative detection and differentiation of nucleic acids from multiple viral and bacterial respiratory organisms in nasopharyngeal swabs (CHAIN CARRIER). Performed By: #### L [id number] ####[facility] ([facility])[address] [place] [address] CORONAVIRUS [id number] Not detected Normal Not Detected [facility] Comment on above: Order Comment: Testi ng methodology is a multiplexed nucleic acid test intended for the simultaneous qualitative detection and differentiation of nucleic acids from multiple viral and bacterial respiratory organisms in nasopharyngeal swabs (CHAIN CARRIER). Performed By: #### L [id number] ####[facility] ([facility])[address] [place] [address] CORONAVIRUS [id number] Not detected Normal Not Detected [facility] Comment on above: Order Comment: Testi ng methodology is a multiplexed nucleic acid test intended for the simultaneous qualitative detection and differentiation of nucleic acids from multiple viral and bacterial respiratory organisms in nasopharyngeal swabs (CHAIN CARRIER). Performed By: #### L [id number] ####[facility] ([facility])[address] [place] [address] CORONAVIRUS OC43 Not detected Normal Not Detected [facility] Comment on above: Order Comment: Testi ng methodology is a multiplexed nucleic acid test intended for the simultaneous qualitative detection and differentiation of nucleic acids from multiple viral and bacterial respiratory organisms in nasopharyngeal swabs (CHAIN CARRIER). Performed By: #### L [id number] ####[facility] ([facility])[address] [place] [address] HUMAN METAPNEUMOVIRUS Not detected Normal Not Detected [facility] Comment on above: Order Comment: Testi ng methodology is a multiplexed nucleic acid test intended for the simultaneous qualitative detection and differentiation of nucleic acids from multiple viral and bacterial respiratory organisms in nasopharyngeal swabs (CHAIN CARRIER). Performed By: #### L [id number] ####[facility] ([facility])[address] [place] [address] HUMAN RHINOVIRUS+ENTEROVIRUS Not detected Normal Not Detected [facility] Comment on above: Order Comment: Testi ng methodology is a multiplexed nucleic acid test intended for the simultaneous qualitative detection and differentiation of nucleic acids from multiple viral and bacterial respiratory organisms in nasopharyngeal swabs (CHAIN CARRIER). Performed By: #### L [id number] ####[facility] ([facility])[address] [place] [address] INFLUENZA A Not detected Normal Not Detected [facility] Comment on above: Order Comment: Testi ng methodology is a multiplexed nucleic acid test intended for the simultaneous qualitative detection and differentiation of nucleic acids from multiple viral and bacterial respiratory organisms in nasopharyngeal swabs (CHAIN CARRIER). Performed By: #### L [id number] ####[facility] ([facility])[address] [place] [address] INFLUENZA B Not detected Normal Not Detected [facility] Comment on above: Order Comment: Testi ng methodology is a multiplexed nucleic acid test intended for the simultaneous qualitative detection and differentiation of nucleic acids from multiple viral and bacterial respiratory organisms in nasopharyngeal swabs (CHAIN CARRIER). Performed By: #### L [id number] ####[facility] ([facility])[address] [place] [address] MYCOPLASMA PNEUMONIAE Not detected Normal Not Detected [facility] Comment on above: Order Comment: Testi ng methodology is a multiplexed nucleic acid test intended for the simultaneous qualitative detection and differentiation of nucleic acids from multiple viral and bacterial respiratory organisms in nasopharyngeal swabs (CHAIN CARRIER). Performed By: #### L [id number] ####[facility] ([facility])[address] [place] [address] PARAINFLUENZA 1 Not detected Normal Not Detected [facility] Comment on above: Order Comment: Testi ng methodology is a multiplexed nucleic acid test intended for the simultaneous qualitative detection and differentiation of nucleic acids from multiple viral and bacterial respiratory organisms in nasopharyngeal swabs (CHAIN CARRIER). Performed By: #### L [id number] ####[facility] ([facility])[address] [place] [address] PARAINFLUENZA 2 Not detected Normal Not Detected [facility] Comment on above: Order Comment: Testi ng methodology is a multiplexed nucleic acid test intended for the simultaneous qualitative detection and differentiation of nucleic acids from multiple viral and bacterial respiratory organisms in nasopharyngeal swabs (CHAIN CARRIER). Performed By: #### L [id number] ####[facility] ([facility])[address] [place] [address] PARAINFLUENZA 3 Not detected Normal Not Detected [facility] Comment on above: Order Comment: Testi ng methodology is a multiplexed nucleic acid test intended for the simultaneous qualitative detection and differentiation of nucleic acids from multiple viral and bacterial respiratory organisms in nasopharyngeal swabs (CHAIN CARRIER). Performed By: #### L [id number] ####[facility] ([facility])[address] [place] [address] PARAINFLUENZA 4 Not detected Normal Not Detected [facility] Comment on above: Order Comment: Testi ng methodology is a multiplexed nucleic acid test intended for the simultaneous qualitative detection and differentiation of nucleic acids from multiple viral and bacterial respiratory organisms in nasopharyngeal swabs (CHAIN CARRIER). Performed By: #### L [id number] ####[facility] ([facility])[address] [place] [address] RESP SYNCYTIAL VIRUS Not detected Normal Not Detected [facility] Comment on above: Order Comment: Testi ng methodology is a multiplexed nucleic acid test intended for the simultaneous qualitative detection and differentiation of nucleic acids from multiple viral and bacterial respiratory organisms in nasopharyngeal swabs (CHAIN CARRIER). Performed By: #### L [id number] ####[facility] ([facility])[address] [address] SARS-CoV-2 (COVID-19) RNA CHARLES+probe Ql (Unsp spec) Not detected Normal Not Detected [facility] Comment on above: Order Comment: Testi ng methodology is a multiplexed nucleic acid test intended for the simultaneous qualitative detection and differentiation of nucleic acids from multiple viral and bacterial respiratory organisms in nasopharyngeal swabs (CHAIN CARRIER). Performed By: #### L [id number] ####[facility] [place] [address] TRIGLYCERIDESon 05-27-2024 FASTING? unknown Normal [facility] Comment on above: Order Comment: Monit or triglycerides while patient is on propofol. Consult Nutrition if greater than 500 mg/dL. Performed By: #### L [id number] ####[facility] [place] [address] Magnesium [Mass/Vol] 105 mg/dL Normal 40-149 [facility] Comment on above: Order Comment: Monit or triglycerides while patient is on propofol. Consult Nutrition if greater than 500 mg/dL. Result Comment: TRIG LYCERIDE REFERENCE RANGE:20 YEARS AND OLDER CARDIOVASCULAR RISKLESS THAN 150 mg/dL LOW [id number] TO 199 mg/dL BORDERLINE [id number] mg/dL AND GREATER HIGH RISK Performed By: #### L [id number] ####[facility] ([facility]ER)[address] [place] [address] TROPONIN Ion 05-27-2024 Troponin I.cardiac [Mass/Vol] 0.03 ng/mL Normal 0.00-0.04 [facility] Comment on above: Performed By: #### L [id number] ####[facility] ([facility]ER)[address] [place] [address] TYPE AND SCREENon 05-27-2024 AB SCREEN Negative Normal [facility] Comment on above: Performed By: #### L [id number] ####[facility], ABO group Nom (Bld) O Normal [facility] Comment on above: Performed By: #### L [id number] ####[facility], RH TYPE IN BLOOD Positive Normal [facility] Comment on above: Performed By: #### L [id number] ####[facility], VENOUS BLOOD GAS WITH IONIZE D CALCIUMon 05-27-2024 Base excess Calc (BldV) [Moles/Vol] 1.8 mmol/L Normal [facility] Comment on above: Performed By: #### L [id number] ####[facility] RESPIR[facility] [id number] [place] [address] [facility] CALCIUM IONIZED (MMOL/L) IN BLOOD 1.23 mmol/L Normal 1.15-1.33 [facility] Comment on above: Performed By: #### L [id number] ####[facility] RESPIR[facility] [id number] [place] [address] [place] CO2 (BldV) [Partial pressure] 37 mm[Hg] Low 40-50 [facility] Comment on above: Performed By: #### L [id number] ####[facility] RESPIR[facility] [id number] [place] [address] [facility] HCO3 (Bld) [Moles/Vol] 25.7 mmol/L Normal [facility] Comment on above: Performed By: #### L [id number] ####[facility] RESPIR[facility] [id number] [place] [address] [facility] Oxygen (BldV) [Partial pressure] 47 mm[Hg] High 35-45 [facility] Comment on above: Performed By: #### L [id number] ####[facility] RES[facility]IR[facility] [id number] [place] [address] [facility] OXYGEN SATURATION (%) IN VENOUS BLOOD 77.3 % High 65.0-75.0 [facility] Comment on above: Performed By: #### L [id number] ####[facility] RESPIR[facility] [id number] [place] [address] [facility] PH OF VENOUS BLOOD 7.45 High 7.31-7.41 [facility] Comment on above: Performed By: #### L [id number] ####[facility] [id number] [place], [place] [address] 36on 05-19-2024 36 Error Normal [facility] Erroneous Telephone Encounte stefano 05-19-2024 Erroneous Telephone Encounter Normal [facility] Basic Metabolic Panelon 04-14 Anion gap [Moles/Vol] 16 mmol/L 9 - 16 mmol/L [facility] Calcium [Mass/Vol] 9.4 mg/dL 8.6 - 10. 4 mg/dL [facility] Chloride [Moles/Vol] 96 mmol/L Low 98 - 10 7 mmol/L [facility] CO2 [Moles/Vol] 25 mmol/L 20 - 31 mmol/L [facility] Creatinine [Mass/Vol] 7.2 mg/dL Critically high 0.7 0 - 1.20 mg/dL [facility] Comment on above: Previous Alert Value Reported Est, Glom Filt Rate 8 Low - [facility] [id number] Comment on above: These results are not intended for use [...] following therapy that affects renal tubular secretion. Glucose [Mass/Vol] 98 mg/dL 74 - 99 mg/dL [facility] Interpretation and review of laboratory results Abnormal [facility] Potassium [Moles/Vol] 4.7 mmol/L 3.7 - 5.3 mmol/L [facility] Sodium [Moles/Vol] 137 mmol/L 136 - 145 mmol/L [facility] Urea nitrogen [Mass/Vol] 32 mg/dL High 6 - 20 mg/dL [facility] Basic Metabolic Profon 04-27 Anion gap [Moles/Vol] 16 mmol/L Normal 9-16 [facility] Comment on above: Performed By: #### C DP BMP, TROPI #### [facility] [address] [place] [id number] Personal Care Aid: Samuel Bui MD Calcium [Mass/Vol] 9.4 mg/dL Normal 8.6-10.4 [facility] Comment on above: Performed By: #### C DP, BMP, TROPI #### [facility] [address] [place] [address] Personal Care Aid: Samuel Bui MD Chloride [Moles/Vol] 96 mmol/L Low 98-[address] [facility] Comment on above: Performed By: #### C DP, BMP, TROPI #### [facility] [address] [place] [address] Personal Care Aid: Samuel Bui MD CO2 [Moles/Vol] 25 mmol/L Normal 20-31 [facility] Comment on above: Performed By: #### C DP, BMP, TROPI #### [facility] [address] [place] [address] Personal Care Aid: Samuel Bui MD Creatinine [Mass/Vol] 7.2 mg/dL Critically high 0.70-1.20 [facility] Comment on above: Result Comment: Prev ious Alert Value Reported Performed By: #### C LEATHA HILARIO TROPI #### [address] [address] Personal Care Aid: Samuel Bui MD GFR/1.73 sq M.predicted among non-blacks MDRD (S/P/Bld) [Vol rate/Area] 8 mL/min/{1.73_m2} Low >60 [facility] Comment on above: Result Comment: These results [...] renal tubular secretion. Performed By: #### C LEATHA HILARIO TROPI #### [facility] [employer] [address] [place] [phone] Personal Care Aid: Samuel Bui MD Glucose [Mass/Vol] 98 mg/dL Normal 74-99 [facility] Comment on above: Performed By: #### C LEATHA HILARIO TROPI #### [facility] [facility] [address] [place] [address] Personal Care Aid: Samuel Bui MD Potassium [Moles/Vol] 4.7 mmol/L Normal 3.7-5.3 [facility] Comment on above: Performed By: #### C LEATHA HILARIO, TROPI #### [facility] [address] [place] [address]753 Personal Care Aid: Samuel Bui MD Sodium [Moles/Vol] 137 mmol/L Normal 136-145 [facility] Comment on above: Performed By: #### C YANELIS BMP, TROPI #### [facility] [address] [place] [address] [phone] Personal Care Aid: Samuel Bui MD Urea nitrogen [Mass/Vol] 32 mg/dL High 6-20 [facility] Comment on above: Performed By: #### C DP, BMP, LUCIANOI #### [facility] [address] [place], [place] [phone] Personal Care Aid: Samuel Bui MD CBC with Auto Differentialon 04-27-2024 Basophils (Bld) [#/Vol] [facility] Basophils/100 WBC (Bld) 0 % 0 - 2 % [facility] Eosinophils (Bld) [#/Vol] 0.05 10*3/uL [facility] Eosinophils/100 WBC (Bld) 1 % 1 - 4 % [facility] Erythrocyte distribution width (RBC) [Ratio] 13.3 % 11.8 - 14.4 % [facility] Hematocrit (Bld) [Volume fraction] 27.8 % Low 40.7 - 50.3 % [facility] Hemoglobin (Bld) [Mass/Vol] 8.8 g/dL Low 13.0 - 17.0 g/dL [facility] Immature granulocytes (Bld) [#/Vol] 0.03 10*3/uL [facility] Immature granulocytes/100 WBC (Bld) 0 % 0 [facility] Interpretation and review of laboratory results Abnormal [facility] Lymphocytes/100 WBC (Bld) 8 % Low 24 - 43 % [facility] Lymphocytes/100 WBC (Bld) 0.72 % Low [facility] MCH (RBC) [Entitic mass] 31.4 pg 25.2 - 33.5 pg [facility] MCHC (RBC) [Mass/Vol] 31.7 g/dL 28.4 - 34.8 g/dL [facility] MCV (RBC) [Entitic vol] 99.3 fL 82.6 - 102.9 fL [facility] Monocytes/100 WBC (Bld) 8 % 3 - 12 % [facility] Monocytes/100 WBC (Bld) 0.72 % [facility] Neutrophils/100 WBC (Bld) 83 % High 36 - 65 % [facility] Nucleated RBC/100 WBC (Bld) [Ratio] 0.0 % 0.0 per [address] [facility] Platelet mean volume (Bld) [Entitic vol] 9.9 fL 8.1 - 13.[address] [facility] Platelets (Bld) [#/Vol] 206 10*3/uL [facility] RBC (Bld) [#/Vol] 2.80 10*6/uL Low 4.21 - 5.7 7 m/uL [facility] Segmented neutrophils/100 WBC (Bld) 7.94 % [facility] WBC other (Bld) [#/Vol] 9.[address] [facility] CBC with Diffon 04-27-2024 Abs. Basophil <0.03 Normal 0.00-0.20 [facility] Comment on above: Performed By: #### C DP, BMP, TROPI #### [facility] [address] [place] [address] Personal Care Aid: Samuel Bui MD Abs.Imm.Granulocyte 0.03 k/uL Normal 0.00-0.30 [facility] Comment on above: Performed By: #### C DP, BMP, TROPI #### [facility] [address] [place] [address] Personal Care Aid: Samuel Bui MD Abs.Neutrophil (Seg) 7.94 k/uL Normal 1.50-8.[address] [facility] Comment on above: Performed By: #### C DP, BMP, TROPI #### [facility] [address] [place] [address] Personal Care Aid: Samuel Bui MD Basophils/100 WBC (Bld) 0 % Normal 0-2 [facility] Comment on above: Performed By: #### C DP, BMP, TROPI #### [facility] [address] [place] [address] 10072 Personal Care Aid: Samuel Bui MD Eosinophils (Bld) [#/Vol] 0.05 10*3/uL Normal 0.00-0.44 [facility] Comment on above: Performed By: #### C DP, BMP, TROPI #### [address] [address] Personal Care Aid: Samuel Bui MD Eosinophils/100 WBC (Bld) 1 % Normal 1-4 [facility] Comment on above: Performed By: #### C DP, BMP, TROPI #### [facility] [address] [place] [address] 8[address]70 Personal Care Aid: Samuel Bui MD Erythrocyte distribution width (RBC) [Ratio] 13.3 % Normal 11.8-14.4 [facility] Comment on above: Performed By: #### C DP, BMP, TROPI #### [place] [address] Personal Care Aid: Samuel Bui MD Hematocrit (Bld) [Volume fraction] 27.8 % Low 40.7-50.3 [facility] Comment on above: Performed By: #### C DP, BMP, TROPI #### [facility] [address] [place] [address] Personal Care Aid: Samuel Bui MD Hemoglobin (Bld) [Mass/Vol] 8.8 g/dL Low 13.0-17.0 [facility] Comment on above: Performed By: #### C DP, BMP, TROPI #### [facility] [address] [place] [address] Personal Care Aid: Samuel Bui MD Immature granulocytes/100 WBC (Bld) 0 % Normal 0 [facility] Comment on above: Performed By: #### C DP, BMP, TROPI #### [facility] [address] [place] [address] 33648 Personal Care Aid: Samuel Bui MD Lymphocytes (Bld) [#/Vol] 0.72 10*3/uL Low 1.10-3.70 [facility] Comment on above: Performed By: #### C DP, BMP, TROPI #### [address] [address] Personal Care Aid: Samuel Bui MD Lymphocytes/100 WBC (Bld) 8 % Low 24-43 [facility] Comment on above: Performed By: #### C DP, BMP, TROPI #### [facility] [address] [place] [address] 37749 Personal Care Aid: Sameul Bui MD MCH (RBC) [Entitic mass] 31.4 pg Normal 25.2-33.5 [facility] Comment on above: Performed By: #### C DP, BMP, TROPI #### [address] [address] Personal Care Aid: Samuel Bui MD MCHC (RBC) [Mass/Vol] 31.7 g/dL Normal 28.4-34.8 [facility] Comment on above: Performed By: #### C DP, BMP, TROPI #### [address] [address] Personal Care Aid: Samuel Bui MD MCV (RBC) [Entitic vol] 99.3 fL Normal 82.6-102.9 [facility] Comment on above: Performed By: #### C DP, BMP, TROPI #### [address] [address] Personal Care Aid: Samuel Bui MD Monocytes (Bld) [#/Vol] 0.72 10*3/uL Normal 0.10-1.20 [facility] Comment on above: Performed By: #### C DP, BMP, TROPI #### [facility] [address] [place] [address]385 Personal Care Aid: Samuel Bui MD Monocytes/100 WBC (Bld) 8 % Normal 3-12 [facility] Comment on above: Performed By: #### C DP, BMP, TROPI #### [address] [address] Personal Care Aid: Samuel Bui MD Neutrophil (Seg) 83 % High 36-65 [facility] Comment on above: Performed By: #### C DP, BMP, TROPI #### [address] [address] Personal Care Aid: Samuel Bui MD NRBC Automated 0.0 per 100 WBC Normal 0.0 [facility] Comment on above: Performed By: #### C DP, BMP, TROPI #### [address] [address] Personal Care Aid: Samuel Bui MD Platelet mean volume (Bld) [Entitic vol] 9.9 fL Normal 8.1-13.5 [facility] Comment on above: Performed By: #### C DP, BMP, TROPI #### [address] [address] Personal Care Aid: Samuel Bui MD Platelets (Bld) [#/Vol] 206 10*3/uL Normal 138-453 [facility] Comment on above: Performed By: #### C DP, BMP, TROPI #### [address] [address] Personal Care Aid: Samuel Bui MD RBC (Bld) [#/Vol] 2.80 10*6/uL Low 4.21-5.77 [facility] Comment on above: Performed By: #### C DP, BMP, TROPI #### [facility] [address] [place] [address]37 Personal Care Aid: Samuel Bui MD WBC (Bld) [#/Vol] 9.5 10*3/uL Normal 3.5-11.3 [facility] Comment on above: Performed By: #### C DP, BMP, TROPI #### [facility] [address] [place] [address] [phone] Personal Care Aid: Samuel Bui MD MRSA DNA Probe, Nasalon 04-14 Interpretation and review of laboratory results Abnormal [facility] MRSA, DNA, Nasal POSITIVE: MRSA DNA detected by nucleic acid amplification. Abnormal NEGATIVE [facility] Comment on above: Results should be used as an adjunct to nosocomial control efforts to identify patients needing enhanced precautions. The test is not intended to identify patients with staphylococcal infections. Results should not be used to guide or monitor treatment for MRSA infections. Specimen Description .NASAL SWAB [facility] MRSA, DNA, Nasalon MRSA, DNA, Nasal POSITIVE: MRSA DNA detected by nucleic acid amplification. Abnormal NEG [facility] Comment on above: Result Comment: Results should be used as an adjunct to nosocomial control efforts to identify patients needing enhanced precautions. The test is not intended to identify patients with staphylococcal infections. Results should not be used to guide or monitor treatment for MRSA infections. Performed By: #### M RSANO #### [address] [address] Personal Care Aid: Samuel Bui MD Troponinon 04-27-2024 Interpretation and review of laboratory results Abnormal [facility] Troponin I.cardiac High sensitivity method [Mass/Vol] 162 ng/L Critically high 0 - 22 ng/L [facility] Comment on above: High Sensitivity Tro ponin values cannot be compared with other Troponin methodologies. Previous Alert Value Reported [facility] Troponin, High Sens 162 ng/L Critically high 0-22 [facility] Comment on above: Result Comment: High Sensitivity Troponin values cannot be compared with other Troponin methodologies. Previous Alert Value Reported Performed By: #### C DP, BMP, TROPI #### [facility] [address] [place] [address] [phone] Personal Care Aid: Samuel Bui MD Basic Metabolic Panelon 04-14 Anion gap [Moles/Vol] 19 mmol/L High 9 - 16 mmol/L [facility] Calcium [Mass/Vol] 9.5 mg/dL 8.6 - 10. 4 mg/dL [facility] Chloride [Moles/Vol] 92 mmol/L Low 98 - 10 7 mmol/L [facility] CO2 [Moles/Vol] 21 mmol/L 20 - 31 mmol/L [facility] Creatinine [Mass/Vol] 9.9 mg/dL Critically high 0.7 0 - 1.20 mg/dL [facility] Est, Glom Filt Rate 6 Low - [facility] Comment on above: These results are not intended for use [...] following therapy that affects renal tubular secretion. Glucose [Mass/Vol] 138 mg/dL High 74 - 99 mg/dL [facility] Potassium [Moles/Vol] 5.1 mmol/L 3.7 - 5.3 mmol/L [facility] Sodium [Moles/Vol] 132 mmol/L Low 136 - 145 mmol/L [facility] Urea nitrogen [Mass/Vol] 47 mg/dL High 6 - 20 mg/dL [facility] Basic Metabolic Profon 04-26 Anion gap [Moles/Vol] 19 mmol/L High 9-16 [facility] Comment on above: Performed By: #### B HR MANAGER, BMP, CDP, MG, KAILEY, TROPI #### [facility] [address] [place], [place] [phone] Personal Care Aid: Samuel Bui MD Calcium [Mass/Vol] 9.5 mg/dL Normal 8.6-10.4 [facility] Comment on above: Performed By: #### B HR MANAGER, BMP, CDP, MG, KAILEY, TROPI #### [facility] [address] [place] [address] Personal Care Aid: Samuel Bui MD Chloride [Moles/Vol] 92 mmol/L Low 98-[address] [facility] Comment on above: Performed By: #### B HR MANAGER, BMP, CDP, MG, KAILEY, TROPI #### [facility] [place], [place] [phone] Personal Care Aid: Samuel Bui MD CO2 [Moles/Vol] 21 mmol/L Normal 20-31 [facility] Comment on above: Performed By: #### B HR MANAGER, BMP, CDP, MG, KAILEY, TROPI #### [address] [address] Personal Care Aid: Samuel Bui MD Creatinine [Mass/Vol] 9.9 mg/dL Critically high 0.70-1.20 [facility] Comment on above: Performed By: #### B HR MANAGER, BMP, CDP, MG, KAILEY, TROPI #### [address] [address] Personal Care Aid: Samuel Bui MD GFR/1.73 sq M.predicted among non-blacks MDRD (S/P/Bld) [Vol rate/Area] 6 mL/min/{1.73_m2} Low >60 [facility] Comment on above: Result Comment: These results [...] renal tubular secretion. Performed By: #### B HR MANAGER, BMP, CDP, MG, KAILEY, TROPI #### [address] [address] Personal Care Aid: Samuel Bui MD Glucose [Mass/Vol] 138 mg/dL High 74-99 [facility] Comment on above: Performed By: #### B HR MANAGER, BMP, CDP, MG, KAILEY, TROPI #### [facility] [address] [place] [address] Personal Care Aid: Samuel Bui MD Potassium [Moles/Vol] 5.1 mmol/L Normal 3.7-5.3 [facility] Comment on above: Performed By: #### B HR MANAGER, BMP, CDP, MG, KAILEY, TROPI #### [facility] [address] [place] [address] Personal Care Aid: Samuel Bui MD Sodium [Moles/Vol] 132 mmol/L Low 136-145 [facility] Comment on above: Performed By: #### B HR MANAGER, BMP, CDP, MG, KAILEY, TROPI #### [facility] [address] [place] [address] Personal Care Aid: Samuel Bui MD Urea nitrogen [Mass/Vol] 47 mg/dL High 6-20 [facility] Comment on above: Performed By: #### B HR MANAGER, BMP, CDP, MG, KAILEY, TROPI #### [facility] [address] [place] [address] Personal Care Aid: Samuel Bui MD Brain Natri. Peptideon 04-26 Natriuretic peptide B (Bld) [Mass/Vol] 53321 pg/mL High 0-300 [facility] Comment on above: Result Comment: An a ge-independent cutoff point of 300 pg/ml has a 98% negative predictive value excluding acute heart failure. Performed By: #### B HR MANAGER, BMP, CDP, MG, KAILEY, TROPI #### [facility] [address] [place] [address] Personal Care Aid: Samuel Bui MD Brain natriuretic peptideon 04-26-2024 Interpretation and review of laboratory results Abnormal [facility] Natriuretic peptide B (Bld) [Mass/Vol] 94281 pg/mL High 0 - 300 pg/mL [facility] Comment on above: An age-independent c utoff point of 300 pg/ml has a 98% negative predictive value excluding acute heart failure. [facility] CBC with Auto Differentialon 04-26-2024 Basophils (Bld) [#/Vol] 0.00 10*3/uL [facility] Basophils/100 WBC (Bld) 0 % 0 - 2 % [facility] Eosinophils (Bld) [#/Vol] 0.00 10*3/uL [facility] Eosinophils/100 WBC (Bld) 0 % Low 1 - 4 % [facility] Erythrocyte distribution width (RBC) [Ratio] 13.1 % 11.8 - 14.4 % [facility] Hematocrit (Bld) [Volume fraction] 30.8 % Low 40.7 - 50.3 % [facility] Hemoglobin (Bld) [Mass/Vol] 9.5 g/dL Low 13.0 - 17.0 g/dL [facility] Immature granulocytes (Bld) [#/Vol] 0.00 10*3/uL [facility] Immature granulocytes/100 WBC (Bld) 0 % 0 [facility] Interpretation and review of laboratory results Abnormal [facility] Lymphocytes/100 WBC (Bld) 3 % Low 24 - 43 % [facility] Lymphocytes/100 WBC (Bld) 0.23 % Low [facility] MCH (RBC) [Entitic mass] 30.8 pg 25.2 - 33.5 pg [facility] MCHC (RBC) [Mass/Vol] 30.8 g/dL 28.4 - 34.8 g/dL [facility] MCV (RBC) [Entitic vol] 100.0 fL 82.6 - 102.9 fL [facility] Monocytes/100 WBC (Bld) 1 % Low 3 - 12 % [facility] Monocytes/100 WBC (Bld) 0.08 % Low [facility] Morphology Julian (Bld) [Interp] Normal [facility] Neutrophils/100 WBC (Bld) 96 % High 36 - 65 % [facility] Nucleated RBC/100 WBC (Bld) [Ratio] 0.0 % 0.0 per 100 WBC [facility] Platelet mean volume (Bld) [Entitic vol] 9.8 fL 8.1 - 13.5 fL [facility] Platelets (Bld) [#/Vol] 202 10*3/uL [facility] RBC (Bld) [#/Vol] 3.08 10*6/uL Low 4.21 - 5.7 7 m/uL [facility] Segmented neutrophils/100 WBC (Bld) 7.29 % [facility] WBC other (Bld) [#/Vol] 7.6 [facility] CBC with Diffon 04-26-2024 Abs. Basophil 0.00 k/uL Normal 0.00-0.20 [facility] Comment on above: Performed By: #### B HR MANAGER, BMP, CDP, MG, KAILEY, TROPI #### [place] [address] Personal Care Aid: Samuel Bui MD Abs.Imm.Granulocyte 0.00 k/uL Normal 0.00-0.30 [facility] Comment on above: Performed By: #### B HR MANAGER, BMP, CDP, MG, KAILEY, TROPI #### [facility] [address] [place] [address] Personal Care Aid: Samuel Bui MD Abs.Neutrophil (Seg) 7.29 k/uL Normal 1.50-8.[address] [facility] Comment on above: Performed By: #### B HR MANAGER, BMP, CDP, MG, KAILEY, TROPI #### [facility] [address] [place] [address] Personal Care Aid: Samuel Bui MD Basophils/100 WBC (Bld) 0 % Normal 0-2 [facility] Comment on above: Performed By: #### B HR MANAGER, BMP, CDP, MG, KAILEY, TROPI #### [facility] [address] [place] [address] Personal Care Aid: Samuel Bui MD Eosinophils (Bld) [#/Vol] 0.00 10*3/uL Normal 0.00-0.44 [facility] Comment on above: Performed By: #### B HR MANAGER, BMP, CDP, MG, KAILEY, TROPI #### [facility] [address] [place] [address] Personal Care Aid: Samuel Bui MD Eosinophils/100 WBC (Bld) 0 % Low 1-4 [facility] Comment on above: Performed By: #### B HR MANAGER, BMP, CDP, MG, KAILEY, TROPI #### [facility] [address] [place] [address] Personal Care Aid: Samuel Bui MD Immature granulocytes/100 WBC (Bld) 0 % Normal 0 [facility] Comment on above: Performed By: #### B HR MANAGER, BMP, CDP, MG, KAILEY, TROPI #### [address] [address] Personal Care Aid: Samuel Bui MD Lymphocytes (Bld) [#/Vol] 0.23 10*3/uL Low 1.10-3.70 [facility] Comment on above: Performed By: #### B HR MANAGER, BMP, CDP, MG, KAILEY, TROPI #### [facility] [address] [place] [address] Personal Care Aid: Samuel Bui MD Lymphocytes/100 WBC (Bld) 3 % Low 24-43 [facility] Comment on above: Performed By: #### B HR MANAGER, BMP, CDP, MG, KAILEY, TROPI #### [facility] [address] [place] [address] Personal Care Aid: Samuel Bui MD Monocytes (Bld) [#/Vol] 0.08 10*3/uL Low 0.10-1.20 [facility] Comment on above: Performed By: #### B HR MANAGER, BMP, CDP, MG, KAILEY, TROPI #### [facility] [address] [place] [address] [phone] Personal Care Aid: Samuel Bui MD Monocytes/100 WBC (Bld) 1 % Low 3-12 [facility] Comment on above: Performed By: #### B HR MANAGER, BMP, CDP, MG, KAILEY, TROPI #### [facility] [address] [place] [address] Personal Care Aid: Samuel Bui MD Morphology Julian (Bld) [Interp] Normal Normal [facility] Comment on above: Performed By: #### B HR MANAGER, BMP, CDP, MG, KAILEY, TROPI #### [facility] [address] [place] [address] [phone] Personal Care Aid: Samuel Bui MD Neutrophil (Seg) 96 % High 36-65 [facility] Comment on above: Performed By: #### B HR MANAGER, BMP, CDP, MG, KAILEY, TROPI #### [facility] [address] [place] [address] Personal Care Aid: Samuel Bui MD Erythrocyte distribution width (RBC) [Ratio] 13.1 % Normal 11.8-14.4 [facility] Comment on above: Performed By: #### B HR MANAGER, BMP, CDP, MG, KAILEY, TROPI #### [facility] [address] [place] [address] Personal Care Aid: Samuel Bui MD Hematocrit (Bld) [Volume fraction] 30.8 % Low 40.7-50.3 [facility] Comment on above: Performed By: #### B HR MANAGER, BMP, CDP, MG, KAILEY, TROPI #### [facility] [address] [place] [address] Personal Care Aid: Samuel Bui MD Hemoglobin (Bld) [Mass/Vol] 9.5 g/dL Low 13.0-17.0 [facility] Comment on above: Performed By: #### B HR MANAGER, BMP, CDP, MG, KAILEY, TROPI #### [facility] [address] [place] [address] Personal Care Aid: Samuel Bui MD MCH (RBC) [Entitic mass] 30.8 pg Normal 25.2-33.5 [facility] Comment on above: Performed By: #### B HR MANAGER, BMP, CDP, MG, KAILEY, TROPI #### [address] [address] Personal Care Aid: Samuel Bui MD MCHC (RBC) [Mass/Vol] 30.8 g/dL Normal 28.4-34.8 [facility] Comment on above: Performed By: #### B HR MANAGER, BMP, CDP, MG, KAILEY, TROPI #### [address] [address] Personal Care Aid: Samuel Bui MD MCV (RBC) [Entitic vol] 100.0 fL Normal 82.6-102.9 [facility] Comment on above: Performed By: #### B HR MANAGER, BMP, CDP, MG, KAILEY, TROPI #### [address] [address] Personal Care Aid: Samuel Bui MD NRBC Automated 0.0 per 100 WBC Normal 0.0 [facility] Comment on above: Performed By: #### B HR MANAGER, BMP, CDP, MG, KAILEY, TROPI #### [place] [address] Personal Care Aid: Samuel Bui MD Platelet mean volume (Bld) [Entitic vol] 9.8 fL Normal 8.1-13.5 [facility] Comment on above: Performed By: #### B HR MANAGER, BMP, CDP, MG, KAILEY, TROPI #### [address] [address] Personal Care Aid: Samuel Bui MD Platelets (Bld) [#/Vol] 202 10*3/uL Normal 138-453 [facility] Comment on above: Performed By: #### B HR MANAGER, BMP, CDP, MG, KAILEY, TROPI #### [facility] [address] [place] [address] Personal Care Aid: Samuel Bui MD RBC (Bld) [#/Vol] 3.08 10*6/uL Low 4.21-5.77 [facility] Comment on above: Performed By: #### B HR MANAGER, BMP, CDP, MG, KAILEY, TROPI #### [facility] [address] [place] [address] Personal Care Aid: Samuel Bui MD WBC (Bld) [#/Vol] 7.6 10*3/uL Normal 3.5-11.3 [facility] Comment on above: Performed By: #### B HR MANAGER, BMP, CDP, MG, KAILEY, TROPI #### [facility] [address] [place] [address] Personal Care Aid: Samuel Bui MD Hep B Surf Agon 04-26-2024 Hep B Surf Ag Non-Reactive Normal NR [facility] Comment on above: Performed By: #### B HR MANAGER, BMP, CDP, MG, KAILEY, TROPI #### [facility] [address] [place] [address] Personal Care Aid: Samuel Bui MD Hepatitis B Surface Antigeno n 04-26-2024 HBV surface Ag IA Ql Non-Reactive NONREACTIVE B ON [facility] MRSA, DNA, Nasalon 4 Specimen Description .NASAL SWAB Normal [facility] Comment on above: Performed By: #### M RSANO #### [address] [address] Personal Care Aid: Samuel Bui MD Magnesiumon 04-26-2024 Magnesium [Mass/Vol] 2.9 mg/dL High 1.6 - 2 .6 mg/dL [facility] Magnesium [Mass/Vol] 2.9 mg/dL High 1.6-2.[address] [facility] Comment on above: Performed By: #### B HR MANAGER, BMP, CDP, MG, KAILEY, TROPI #### [facility] [address] [place] [address] Personal Care Aid: Samuel Bui MD No Panel Informationon 04-26 Interpretation and review of laboratory results Abnormal [facility] Phosphoruson 04-26-2024 Phosphate [Mass/Vol] 5.0 mg/dL High 2.5 - 4 .5 mg/dL [facility] Phosphorus, Inorg.on 024 Phosphorus, Inorg. 5.0 mg/dL High 2.5-4.5 [facility] Comment on above: Performed By: #### B HR MANAGER, BMP, CDP, MG, KAILEY, TROPI #### [facility] [address] [place] [address] Personal Care Aid: Samuel Bui MD Troponinon 04-26-2024 Troponin I.cardiac High sensitivity method [Mass/Vol] 159 ng/L Critically high 0 - 22 ng/L [facility] Comment on above: High Sensitivity Tro ponin values cannot be compared with other Troponin methodologies. Troponin, High Sens 159 ng/L Critically high 0-22 [facility] Comment on above: Result Comment: High Sensitivity Troponin values cannot be compared with other Troponin methodologies. Performed By: #### B HR MANAGER, BMP, CDP, MG, KAILEY, TROPI #### [facility] [address] [place] [address] Personal Care Aid: Samuel Bui MD Orders Onlyon 04-07-2024 Orders Only Normal [facility] 36on 04-04-2024 36 Returned patients telephone call. Patient voicing concerns about having to wait for lymph node biopsy. I reassured Mr. Massey and he verbalized understanding and appreciation. Normal [facility] 36on 04-03-2024 36 Normal [facility] Documentationon 04-03-2024 Documentation Normal [facility] Telephoneon 06-20-2024 Telephone Normal [facility] 36on 03-25-2024 36 Normal [facility] 36on 03-17-2024 36 Duplicate. Rx sent 03/17/2024 Normal [facility] 36 Prescription sent Normal [facility] BASIC METABOLIC PANELon 05-2 Anion gap [Moles/Vol] 18 mmol/L Normal 7-20 [facility] Comment on above: Performed By: #### L [id number] ####[facility] (BEAKER)[address] [place] [address] Calcium [Mass/Vol] 9.6 mg/dL Normal 8.6-10.3 [facility] Comment on above: Performed By: #### L [id number] ####[facility] (BEAKER)[address] [place] [address] Chloride [Moles/Vol] 90 mmol/L Low 98-107 [facility] Comment on above: Performed By: #### L [id number] ####[facility] (BEAKER)[address] [place] [address] CO2 [Moles/Vol] 29 mmol/L Normal 21-31 [facility] Comment on above: Performed By: #### L [id number] ####[facility] (BEAKER)[address] [place] [address] Creatinine [Mass/Vol] 8.20 mg/dL High 0.70-1.30 [facility] Comment on above: Performed By: #### L [id number] ####[facility] (BEAKER)[address] [place] [address] GLOMERULAR FILTRATION RATE ML/MIN/1.73 SQ M.PREDICTED 7.1 mL/min/1.73m*2 Low >60.0 [facility] Comment on above: Result Comment: The [facility]???s estimated glomerular filtration rate (eGFR) will no [...] of individuals. Performed By: #### L [id number] ####[facility] ([facility])[address] [place] [address] Glucose [Mass/Vol] 78 mg/dL Normal 70-100 [facility] Comment on above: Performed By: #### L [id number] ####[facility] ([facility])[address] [place] [address] Potassium [Moles/Vol] 5.2 mmol/L High 3.5-5.1 [facility] Comment on above: Performed By: #### L [id number] ####[facility] ([facility])[address] [place] [address] Sodium [Moles/Vol] 132 mmol/L Low 136-145 [facility] Comment on above: Performed By: #### L [id number] ####[facility] ([facility])[address] [place] [address] Urea nitrogen [Mass/Vol] 29 mg/dL High 7-25 [facility] Comment on above: Performed By: #### L [id number] ####[facility] ([facility])[address] [place] [address] UREA NITROGEN/CREATININE (MASS RATIO) IN SER/PLAS 3.5 Normal [facility] Comment on above: Performed By: #### L [id number] ####[facility] ([facility])[address] [place] [address] CBC WITH AUTO DIFFERENTIALon 03-12-2024 Basophils (Bld) [#/Vol] 0.07 10*3/uL Normal 0.00-0.20 [facility] Comment on above: Performed By: #### L [id number] ####[facility] ([facility])[address] [place] [address] Basophils/100 WBC (Bld) 0.8 % Normal 0.0-1.0 [facility] Comment on above: Performed By: #### L [id number] ####[facility] (BEAKER)[address] [place] [address] Eosinophils (Bld) [#/Vol] 0.31 10*3/uL Normal 0.00-0.50 [facility] Comment on above: Performed By: #### L [id number] ####[facility] [place] [address] Eosinophils/100 WBC (Bld) 3.4 % Normal 0.0-6.0 [facility] Comment on above: Performed By: #### L [id number] ####[facility] [place] [address] Erythrocyte distribution width (RBC) [Ratio] 13.1 % Normal 11.5-15.0 [facility] Comment on above: Performed By: #### L [id number] ####[facility] [place] [address] ERYTHROCYTE MEAN CORPUSCULAR HEMOGLOBIN CONCENTRATION (G/DL) BY AUTOMATED 33.1 g/dL Normal 32.0-35.0 [facility] Comment on above: Performed By: #### L [id number] ####[facility] (BEAKER)[address] [place] [address] Hematocrit (Bld) [Volume fraction] 43.2 % Normal 39.0-55.0 [facility] Comment on above: Performed By: #### L [id number] ####[facility] (BEAKER)[address] [place] [address] Hemoglobin (Bld) [Mass/Vol] 14.3 g/dL Normal 13.0-17.0 [facility] Comment on above: Performed By: #### L [id number] ####[facility] (BEAKER)[address] [place] [address] Immature granulocytes (Bld) [#/Vol] 0.05 10*3/uL Normal 0.00-0.20 [facility] Comment on above: Performed By: #### L [id number] ####[facility] ([facility])[address] [place] [address] Immature granulocytes/100 WBC (Bld) 0.5 % Normal 0.0-1.0 [facility] Comment on above: Performed By: #### L [id number] ####[facility] ([facility])[address] [place] [address] Lymphocytes (Bld) [#/Vol] 0.58 10*3/uL Low 1.20-4.00 [facility] Comment on above: Performed By: #### L [id number] ####[facility] ([facility])[address] [place] [address] Lymphocytes/100 WBC (Bld) 6.4 % Low 20.0-45.0 [facility] Comment on above: Performed By: #### L [id number] ####[facility] ([facility])[address] [place] [address] MCH (RBC) [Entitic mass] 33.2 pg High 27.0-33.0 [facility] Comment on above: Performed By: #### L [id number] ####[facility] ([facility])[address] [place] [address] MCV (RBC) [Entitic vol] 100.2 fL High 82.0-98.0 [facility] Comment on above: Performed By: #### L [id number] ####[facility] ([facility])[address] [place] [address] Monocytes (Bld) [#/Vol] 0.57 10*3/uL Normal 0.10-1.00 [facility] Comment on above: Performed By: #### L [id number] ####[facility] [place] [address] Monocytes/100 WBC (Bld) 6.3 % Normal 5.0-12.0 [facility] Comment on above: Performed By: #### L [id number] ####[facility] ([facility])[address] [place] [address] Neutrophils (Bld) [#/Vol] 7.54 10*3/uL Normal 1.60-7.60 [facility] Comment on above: Performed By: #### L [id number] ####[facility] ([facility])[address] [place] [address] Neutrophils/100 WBC (Bld) 82.6 % High 40.0-72.0 [facility] Comment on above: Performed By: #### L [id number] ####[facility] ([facility])[address] [place] [address] NRBC (PER 100 WBCS) BY AUTOMATED COUNT 0.0 % Normal 0 [facility] Comment on above: Performed By: #### L [id number] ####[facility] ([facility])[address] [place] [address] PLATELETS (10*3/UL) IN BLOOD AUTOMATED COUNT 306 10*3/uL Normal 150-400 [facility] Comment on above: Performed By: #### L [id number] ####[facility] ([facility])[address] [place] [address] RBC (Bld) [#/Vol] 4.31 10*6/uL Normal 4.20-5.70 [facility] Comment on above: Performed By: #### L [id number] ####[facility] ([facility])[address] [place] [address] WBC (Bld) [#/Vol] 9.12 10*3/uL Normal 4.00-10.60 [facility] Comment on above: Performed By: #### L [id number] ####[facility] ([facility])[address] [place] [address] Consulton 03-12-2024 Consult Normal [facility] Labon 03-12-2024 Lab Normal [facility] PROTIME-INRon 03-12-2024 INR IN PPP BY COAGULATION ASSAY 0.98 Normal 0.90-1.10 [facility] Comment on above: Result Comment: ACCC P [...] CHEST 1995;[id number]. Performed By: #### L [id number] ####[facility] ([employer])[address] [place] [address] PROTHROMBIN TIME (PT) IN PPP BY COAGULATION ASSAY 13.0 Seconds Normal 12.3-14.8 [facility] Comment on above: Performed By: #### L [id number] ####[facility] ([employer])[address] [place] [address] Potassium [Moles/volume] in Serum or PlasmaOrdered By: Junior Mora on 02-21-2024 Potassium [Moles/Vol] 5.4 mmol/L 3.5-5.1 [facility] Potassium [Moles/volume] in Serum or PlasmaOrdered By: Junior Mora on 02-07-2024 Potassium [Moles/Vol] 5.1 mmol/L 3.5-5.1 [facility] Alanine aminotransferase [En zymatic activity/volume] in Serum or PlasmaOrdered By: Percy Herrera on 01-09-2024 ALT [Catalytic activity/Vol] 12 U/L 7-52 [facility] Albumin [Mass/volume] in Ser um or Plasma by Bromocresol green (BCG) dye binding methoOrdered By: Percy Herrera on 01-09-2024 Albumin BCG dye [Mass/Vol] 4.2 g/dL 3.5-5.7 [facility] Alkaline phosphatase [Enzyma tic activity/volume] in Serum or PlasmaOrdered By: Percy Herrera on 01-09-2024 ALP [Catalytic activity/Vol] 72 U/L 34-104 [facility] Aspartate aminotransferase [ Enzymatic activity/volume] in Serum or PlasmaOrdered By: Percy Herrera on 01-09-2024 AST [Catalytic activity/Vol] 15 U/L 13-39 [facility] Basophils Auto (Bld) [#/Vol] Ordered By: Percy Herrera on 01-09-2024 Basophils (Bld) [#/Vol] 0.1 10*3/uL 0.0-0.2 [facility] Basophils/100 WBC Auto (Bld) Ordered By: Percy Herrera on 01-09-2024 Basophils/100 WBC (Bld) 1.1 % . [facility] Bilirubin.total [Mass/volume ] in Serum or PlasmaOrdered By: Percy Herrera on 01-09-2024 Bilirubin [Mass/Vol] 0.6 mg/dL 0.3-1.0 [facility] Calcium [Mass/volume] in Ser um or PlasmaOrdered By: Percy Herrera on 01-09-2024 Calcium [Mass/Vol] 9.5 mg/dL 8.6-10.3 [facility] Carbon dioxide, total [Moles /volume] in Serum or PlasmaOrdered By: Percy Herrera on 01-09-2024 CO2 [Moles/Vol] 28.9 mmol/L 21.0-31.0 [facility] Chloride [Moles/volume] in S timi or PlasmaOrdered By: Percy Herrera on 01-09-2024 Chloride [Moles/Vol] 95 mmol/L 98-107 [facility] Creatinine [Mass/volume] in Serum or PlasmaOrdered By: Percy Herrera on 01-09-2024 Creatinine [Mass/Vol] 5.40 mg/dL 0.70-1.30 [facility] Comment on above: Delta: 13.26 on 12/14 Eosinophils Auto (Bld) [#/Vo l]Ordered By: Percy Herrera on 01-09-2024 Eosinophils (Bld) [#/Vol] 0.6 10*3/uL 0.0-0.45 [facility] Eosinophils/100 WBC Auto (Bl d)Ordered By: Percy Herrera on 01-09-2024 Eosinophils/100 WBC (Bld) 4.9 % . [facility] Erythrocyte distribution wid th Auto (RBC) [Ratio]Ordered By: Percy Herrera on 01-09-2024 Erythrocyte distribution width (RBC) [Ratio] 17.7 % 12.0-14.8 [facility] Globulin Calc (S) [Mass/Vol] Ordered By: Percy Herrera on 01-09-2024 Globulin (S) [Mass/Vol] 2.6 g/dL [facility] Glucose [Mass/volume] in Ser um or PlasmaOrdered By: Percy Herrera on 01-09-2024 Glucose [Mass/Vol] 77 mg/dL 70-100 [facility] Comment on above: ADA recommended refe rence rangeRandom Glucose Reference Range is dependent on time and content of last meal. Glucose of more than 200 mg/dL in a nonstressed, ambulatory subject supports the diagnosis of Diabetes Mellitus. Hematocrit Auto (Bld) [Volum e fraction]Ordered By: Percy Herrera on 01-09-2024 Hematocrit (Bld) [Volume fraction] 26.1 % 38.8-50.0 [facility] Hemoglobin [Mass/volume] in BloodOrdered By: Percy Herrera on 01-09-2024 Hemoglobin (Bld) [Mass/Vol] 8.7 g/dL 13.0-17.0 [facility] Leukocytes [#/volume] correc bernardo for nucleated erythrocytes in Blood by Automated counOrdered By: Percy Herrera on 01-09-2024 WBC corrected for nucl RBC Auto (Bld) [#/Vol] 11.3 10*3/uL 4.1-10.5 [facility] Lymphocytes Auto (Bld) [#/Vo l]Ordered By: Percy Herrera on 01-09-2024 Lymphocytes (Bld) [#/Vol] 0.8 10*3/uL 1.00-4.8 [facility] Lymphocytes/100 WBC Auto (Bl d)Ordered By: Percy Herrera on 01-09-2024 Lymphocytes/100 WBC (Bld) 7.2 % . [facility] MCH Auto (RBC) [Entitic mass ]Ordered By: Percy Herrera on 01-09-2024 MCH (RBC) [Entitic mass] 37.3 pg 27.5-35.2 [facility] MCHC Auto (RBC) [Mass/Vol]Or dered By: Percy Herrera on 01-09-2024 MCHC (RBC) [Mass/Vol] 33.4 g/dL 32.5-35.6 [facility] MCV Auto (RBC) [Entitic vol] Ordered By: Percy Herrera on 01-09-2024 MCV (RBC) [Entitic vol] 111.7 fL 83.5-101 [facility] Magnesium [Mass/volume] in S timi or PlasmaOrdered By: Percy Herrera on 01-09-2024 Magnesium [Mass/Vol] 1.9 mg/dL 1.9-2.7 [facility] Monocytes Auto (Bld) [#/Vol] Ordered By: Percy Herrera on 01-09-2024 Monocytes (Bld) [#/Vol] 0.6 10*3/uL 0.0-0.8 [facility] Monocytes/100 WBC Auto (Bld) Ordered By: Percy Herrera on 01-09-2024 Monocytes/100 WBC (Bld) 5.4 % . [facility] Neutrophils Auto (Bld) [#/Vo l]Ordered By: Percy Herrera on 01-09-2024 Neutrophils (Bld) [#/Vol] 9.2 10*3/uL 1.8-7.7 [facility] Neutrophils/100 WBC Auto (Bl d)Ordered By: Percy Herrera on 01-09-2024 Neutrophils/100 WBC (Bld) 81.4 % . [facility] No Panel InformationOrdered By: Percy Herrera on 01-09-2024 Estimated GFR (CKD-EPI) 11.747 mL/Min [facility] Creatinine Clearance (Chem 17.89 [facility] Nucleated erythrocytes [Pres ence] in Blood by Automated countOrdered By: Percy Herrera on 01-09-2024 Nucleated RBC Auto Ql (Bld) 0.2 /100{WBC} 0-0.5 [facility] Platelet mean volume Auto (B ld) [Entitic vol]Ordered By: Percy Herrera on 01-09-2024 Platelet mean volume (Bld) [Entitic vol] 8.4 fL 6.6-10.1 [facility] Platelets Auto (Bld) [#/Vol] Ordered By: Percy Herrera on 01-09-2024 Platelets (Bld) [#/Vol] 326 10*3/uL 150-450 [facility] Potassium [Moles/volume] in Serum or PlasmaOrdered By: Percy Herrera on 01-09-2024 Potassium [Moles/Vol] 3.5 mmol/L 3.5-5.1 [facility] Comment on above: Delta: 7.1 on Protein [Mass/volume] in Ser um or PlasmaOrdered By: ePrcy Herrera on 01-09-2024 Protein [Mass/Vol] 6.8 g/dL 6.4-8.9 [facility] RBC Auto (Bld) [#/Vol]Ordere d By: Percy Herrera on 01-09-2024 RBC (Bld) [#/Vol] 2.34 10*6/uL 3.90-5.60 [facility] Serum or plasma albumin/glob ulin mass ratioOrdered By: Percy Herrera on 01-09-2024 Albumin/Globulin [Mass ratio] 1.6 {ratio} [facility] Serum or plasma anion gap de terminationOrdered By: Percy Herrera on 01-09-2024 Anion gap [Moles/Vol] 15.6 mmol/L 6.0-15.0 [facility] Sodium [Moles/volume] in Ser um or PlasmaOrdered By: Percy Herrera on 01-09-2024 Sodium [Moles/Vol] 136 mmol/L 136-145 [facility] Urea nitrogen [Mass/volume] in Serum or PlasmaOrdered By: Percy Herrera on 01-09-2024 Urea nitrogen [Mass/Vol] 21 mg/dL 05-08 [facility] Comment on above: Delta: 67 on 4-4 WBC Auto (Bld) [#/Vol]Ordere d By: Percy Herrera on 01-09-2024 WBC (Bld) [#/Vol] 11.3 10*3/uL 4.1-10.5 [facility] Anisocytosis LM Ql (Bld)Orde red By: Percy Herrera on 01-08-2024 Anisocytosis Ql (Bld) Moderate [facility] Macrocytes LM Ql (Bld)Ordere d By: Percy Herrera on 01-08-2024 Macrocytes Ql (Bld) Moderate [facility] Platelet adequacy [Presence] in Blood by Light microscopyOrdered By: Percy Herrera on 01-08-2024 Platelets LM Ql (Bld) Normal Normal [facility] Platelet morphology finding [Identifier] in BloodOrdered By: Percy Herrera on 01-08-2024 Platelet morphology finding Nom (Bld) Normal Normal [facility] Polychromasia [Presence] in Blood by Light microscopyOrdered By: Percy Herrera on 01-08-2024 Polychromasia LM Ql (Bld) Moderate [facility] RBC morphologyOrdered By: Armin Herrera on 01-08-2024 RBC morphology finding Nom (Bld) N/A [facility] Schistocytes [Presence] in B lood by Light microscopyOrdered By: Percy Herrera on 01-08-2024 Schistocytes LM Ql (Bld) Slight [facility] Potassium [Moles/volume] in Serum or PlasmaOrdered By: Toby Venegas on 11-10-2023 Potassium [Moles/Vol] 5.2 mmol/L 3.5-5.1 [facility] Potassium [Moles/volume] in Serum or PlasmaOrdered By: Junior Mora on 11-03-2023 Potassium [Moles/Vol] 5.8 mmol/L 3.5-5.1 [facility] Potassium [Moles/volume] in Serum or PlasmaOrdered By: Junior Mora on 10-11-2023 Potassium [Moles/Vol] 5.4 mmol/L 3.5-5.1 [facility] Basophils Auto (Bld) [#/Vol] Ordered By: Zo Serrano on 05-22-2023 Basophils (Bld) [#/Vol] 0.1 10*3/uL 0.0-0.2 [facility] Basophils/100 WBC Auto (Bld) Ordered By: Zo Serrano on 05-22-2023 Basophils/100 WBC (Bld) 0.4 % . [facility] Calcium [Mass/volume] in Ser um or PlasmaOrdered By: Zo Serrano on 05-22-2023 Calcium [Mass/Vol] 9.0 mg/dL 8.6-10.3 [facility] Carbon dioxide, total [Moles /volume] in Serum or PlasmaOrdered By: Zo Serrano on 05-22-2023 CO2 [Moles/Vol] 25.6 mmol/L 21.0-31.0 [facility] Chloride [Moles/volume] in S timi or PlasmaOrdered By: Zo Serrano on 05-22-2023 Chloride [Moles/Vol] 95 mmol/L 98-107 [facility] Creatinine [Mass/volume] in Serum or PlasmaOrdered By: Zo Serrano on 05-22-2023 Creatinine [Mass/Vol] 13.60 mg/dL 0.70-1.30 [facility] Eosinophils Auto (Bld) [#/Vo l]Ordered By: Zo Serrano on 05-22-2023 Eosinophils (Bld) [#/Vol] 0.4 10*3/uL 0.0-0.45 [facility] Eosinophils/100 WBC Auto (Bl d)Ordered By: Zo Serrano on 05-22-2023 Eosinophils/100 WBC (Bld) 2.1 % . [facility] Erythrocyte distribution wid th Auto (RBC) [Ratio]Ordered By: Zo Serrano on 05-22-2023 Erythrocyte distribution width (RBC) [Ratio] 15.4 % 12.0-14.8 [facility] Glucose Glucometer (BldC) [M ass/Vol]Ordered By: Irwin Theodore on 05-22-2023 Glucose [Mass/Vol] 74 mg/dL [facility] Comment on above: Random Glucose Refer ence Range is dependent on time and content of last meal. Glucose of more than 200 mg/dL in a nonstressed, ambulatory subject supports the diagnosis of Diabetes Mellitus. Glucose [Mass/volume] in Ser um or PlasmaOrdered By: Zo Serrano on 05-22-2023 Glucose [Mass/Vol] 89 mg/dL 70-100 [facility] Comment on above: ADA recommended refe rence rangeRandom Glucose Reference Range is dependent on time and content of last meal. Glucose of more than 200 mg/dL in a nonstressed, ambulatory subject supports the diagnosis of Diabetes Mellitus. Hematocrit Auto (Bld) [Volum e fraction]Ordered By: Zo Serrano on 05-22-2023 Hematocrit (Bld) [Volume fraction] 32.9 % 38.8-50.0 [facility] Hemoglobin [Mass/volume] in BloodOrdered By: Zo Serrano on 05-22-2023 Hemoglobin (Bld) [Mass/Vol] 10.9 g/dL 13.0-17.0 [facility] Leukocytes [#/volume] correc bernardo for nucleated erythrocytes in Blood by Automated counOrdered By: Zo Serrano on 05-22-2023 WBC corrected for nucl RBC Auto (Bld) [#/Vol] 17.7 10*3/uL 4.1-10.5 [facility] Lymphocytes Auto (Bld) [#/Vo l]Ordered By: Zo Serrano on 05-22-2023 Lymphocytes (Bld) [#/Vol] 0.9 10*3/uL 1.00-4.8 [facility] Lymphocytes/100 WBC Auto (Bl d)Ordered By: Zo Serrano on 05-22-2023 Lymphocytes/100 WBC (Bld) 5.1 % . [facility] MCH Auto (RBC) [Entitic mass ]Ordered By: Zo Serrano on 05-22-2023 MCH (RBC) [Entitic mass] 34.5 pg 27.5-35.2 [facility] MCHC Auto (RBC) [Mass/Vol]Or dered By: Zo Serrano on 05-22-2023 MCHC (RBC) [Mass/Vol] 33.1 g/dL 32.5-35.6 [facility] MCV Auto (RBC) [Entitic vol] Ordered By: Zo Serrano on 05-22-2023 MCV (RBC) [Entitic vol] 104.4 fL 83.5-101 [facility] Magnesium [Mass/volume] in S timi or PlasmaOrdered By: Zo Serrano on 05-22-2023 Magnesium [Mass/Vol] 2.2 mg/dL 1.9-2.7 [facility] Monocytes Auto (Bld) [#/Vol] Ordered By: Zo Serrano on 05-22-2023 Monocytes (Bld) [#/Vol] 0.9 10*3/uL 0.0-0.8 [facility] Monocytes/100 WBC Auto (Bld) Ordered By: Zo Serrano on 05-22-2023 Monocytes/100 WBC (Bld) 5.2 % . [facility] Neutrophils Auto (Bld) [#/Vo l]Ordered By: Zo Serrano on 05-22-2023 Neutrophils (Bld) [#/Vol] 15.5 10*3/uL 1.8-7.7 [facility] Neutrophils/100 WBC Auto (Bl d)Ordered By: Zo Serrano on 05-22-2023 Neutrophils/100 WBC (Bld) 87.2 % . [facility] No Panel InformationOrdered By: Zo Serrano on 05-22-2023 Estimated GFR (CKD-EPI) 3.902 mL/Min [facility] Creatinine Clearance (Chem 7.38 [facility] Nucleated erythrocytes [Pres ence] in Blood by Automated countOrdered By: Zo Serrano on 05-22-2023 Nucleated RBC Auto Ql (Bld) 0.1 /100{WBC} 0-0.5 [facility] Phosphate [Mass/volume] in S timi or PlasmaOrdered By: Zo Serrano on 05-22-2023 Phosphate [Mass/Vol] 5.0 mg/dL 3.7-7.2 [facility] Platelet mean volume Auto (B ld) [Entitic vol]Ordered By: Zo Serrano on 05-22-2023 Platelet mean volume (Bld) [Entitic vol] 6.9 fL 6.6-10.1 [facility] Platelets Auto (Bld) [#/Vol] Ordered By: Zo Serrano on 05-22-2023 Platelets (Bld) [#/Vol] 249 10*3/uL 150-450 [facility] Potassium [Moles/volume] in Serum or PlasmaOrdered By: Zo Serrano on 05-22-2023 Potassium [Moles/Vol] 5.5 mmol/L 3.5-5.1 [facility] RBC Auto (Bld) [#/Vol]Ordere d By: Zo Serrano on 05-22-2023 RBC (Bld) [#/Vol] 3.15 10*6/uL 3.90-5.60 [facility] Serum or plasma anion gap de terminationOrdered By: Zo Serrano on 05-22-2023 Anion gap [Moles/Vol] 19.9 mmol/L 6.0-15.0 [facility] Sodium [Moles/volume] in Ser um or PlasmaOrdered By: Zo Serrano on 05-22-2023 Sodium [Moles/Vol] 135 mmol/L 136-145 [facility] Urea nitrogen [Mass/volume] in Serum or PlasmaOrdered By: Zo Serrano on 05-22-2023 Urea nitrogen [Mass/Vol] 63 mg/dL 7-25 [facility] WBC Auto (Bld) [#/Vol]Ordere d By: Zo Serrano on 05-22-2023 WBC (Bld) [#/Vol] 17.7 10*3/uL 4.1-10.5 [facility] Basophils Auto (Bld) [#/Vol] Ordered By: Sumit Madrid on 08-24-2022 Basophils (Bld) [#/Vol] 0.1 10*3/uL 0.0-0.2 [facility] Basophils/100 WBC Auto (Bld) Ordered By: Sumit Madrid on 08-24-2022 Basophils/100 WBC (Bld) 1.0 % . [facility] Creatinine and Glomerular fi ltration rate.predicted panel (S/P/Bld)Ordered By: Sumit Madrid on 08-24-2022 Creatinine [Mass/Vol] 9.20 mg/dL 0.64-1.27 [facility] Eosinophils Auto (Bld) [#/Vo l]Ordered By: Sumit Madrid on 08-24-2022 Eosinophils (Bld) [#/Vol] 0.4 10*3/uL 0.0-0.45 [facility] Eosinophils/100 WBC Auto (Bl d)Ordered By: Sumit Madrid on 08-24-2022 Eosinophils/100 WBC (Bld) 5.6 % . [facility] Erythrocyte distribution wid th Auto (RBC) [Ratio]Ordered By: Sumit Madrid on 08-24-2022 Erythrocyte distribution width (RBC) [Ratio] 12.9 % 12.0-14.8 [facility] Estimated glomerular filtrat ion rate (GFR) non- AmericanOrdered By: Sumit Madrid on 08-24-2022 GFR/1.73 sq M.predicted among non-blacks MDRD (S/P/Bld) [Vol rate/Area] 6 mL/Min [facility] Hematocrit Auto (Bld) [Volum e fraction]Ordered By: Sumit Madrid on 08-24-2022 Hematocrit (Bld) [Volume fraction] 40.3 % 38.8-50.0 [facility] Hemoglobin [Mass/volume] in BloodOrdered By: Sumit Madrid on 08-24-2022 Hemoglobin (Bld) [Mass/Vol] 13.5 g/dL 13.0-17.0 [facility] Laboratory - Hematology and Cell countsOrdered By: Sumit Madrid on 08-24-2022 Nucleated RBC/100 WBC (Bld) [Ratio] 0.0 % 0-0.5 [facility] Leukocytes [#/volume] in Blo od by Automated countOrdered By: Sumit Madrid on 08-24-2022 WBC (Bld) [#/Vol] 7.9 10*3/uL 4.5-11.0 [facility] Lymphocytes Auto (Bld) [#/Vo l]Ordered By: Sumit Madrid on 08-24-2022 Lymphocytes (Bld) [#/Vol] 1.1 10*3/uL 1.00-4.8 [facility] Lymphocytes/100 WBC Auto (Bl d)Ordered By: Sumit Madrid on 08-24-2022 Lymphocytes/100 WBC (Bld) 13.8 % . [facility] MCH Auto (RBC) [Entitic mass ]Ordered By: Sumit Madrid on 08-24-2022 MCH (RBC) [Entitic mass] 35.9 pg 27.5-35.2 [facility] MCHC Auto (RBC) [Mass/Vol]Or dered By: Sumit Madrid on 08-24-2022 MCHC (RBC) [Mass/Vol] 33.5 g/dL 32.5-35.6 [facility] MCV Auto (RBC) [Entitic vol] Ordered By: Sumit Madrid on 08-24-2022 MCV (RBC) [Entitic vol] 107.3 fL 83.5-101 [facility] Monocytes Auto (Bld) [#/Vol] Ordered By: Sumit Madrid on 08-24-2022 Monocytes (Bld) [#/Vol] 0.7 10*3/uL 0.0-0.8 [facility] Monocytes/100 WBC Auto (Bld) Ordered By: Sumit Madrid on 08-24-2022 Monocytes/100 WBC (Bld) 9.3 % . [facility] Neutrophils Auto (Bld) [#/Vo l]Ordered By: Sumit Madrid on 08-24-2022 Neutrophils (Bld) [#/Vol] 5.6 10*3/uL 1.8-7.7 [facility] Neutrophils/100 WBC Auto (Bl d)Ordered By: Sumit Madrid on 08-24-2022 Neutrophils/100 WBC (Bld) 70.3 % . [facility] No Panel InformationOrdered By: Sumit Madrid on 08-24-2022 Estimated GFR () 7 mL/Min [facility] Comment on above: GFR estimated refere nce range: According to KDOQI guidelines, <60 ml/min/1.73m2 is sufficient to diagnose a patient with chronic kidney disease. Pharmacy Creatinine Clearance (Chem 10.81 [facility] Platelet mean volume Auto (B ld) [Entitic vol]Ordered By: Sumit Madrid on 08-24-2022 Platelet mean volume (Bld) [Entitic vol] 7.7 fL 6.6-10.1 [facility] Platelets Auto (Bld) [#/Vol] Ordered By: Sumit Madrid on 08-24-2022 Platelets (Bld) [#/Vol] 289 10*3/uL 150-450 [facility] RBC Auto (Bld) [#/Vol]Ordere d By: Sumit Madrid on 08-24-2022 RBC (Bld) [#/Vol] 3.75 10*6/uL 3.90-5.60 [facility] Serum or plasma anion gap de terminationOrdered By: Sumit Madrid on 08-24-2022 Anion gap [Moles/Vol] 18.8 mmol/L 6.0-15.0 [facility] Serum or plasma calcium cande urement (mass/volume)Ordered By: Sumit Madrid on 08-24-2022 Calcium [Mass/Vol] 9.5 mg/dL 8.2-10.2 [facility] Serum or plasma chloride rose marie surement (moles/volume)Ordered By: Sumit Madrid on 08-24-2022 Chloride [Moles/Vol] 94 mmol/L 95-114 [facility] Serum or plasma glucose cande urement (mass/volume)Ordered By: Sumit Madrid on 08-24-2022 Glucose [Mass/Vol] 94 mg/dL 70-100 [facility] Comment on above: ADA recommended refe rence rangeRandom Glucose Reference Range is dependent on time and content of last meal. Glucose of more than 200 mg/dL in a nonstressed, ambulatory subject supports the diagnosis of Diabetes Mellitus. Serum or plasma potassium me asurement (moles/volume)Ordered By: Sumit Madrid on 08-24-2022 Potassium [Moles/Vol] 5.2 mmol/L 3.5-5.1 [facility] Serum or plasma sodium measu rement (moles/volume)Ordered By: Sumit Madrid on 08-24-2022 Sodium [Moles/Vol] 133 mmol/L 136-146 [facility] Serum or plasma total carbon dioxide measurement (moles/volume)Ordered By: Sumit Madrid on 08-24-2022 CO2 [Moles/Vol] 25.4 mmol/L 22.0-30.0 [facility] Serum or plasma urea nitroge n measurement (mass/volume)Ordered By: Sumit Madrid on 08-24-2022 Urea nitrogen [Mass/Vol] 31 mg/dL 07-07 [facility] COVID-19 SOFIAOrdered By: Aron Short on 08-23-2022 SARS-CoV+SARS-CoV-2 (COVID-19) Ag IA.rapid Ql (Resp) Negative Negative [facility] Comment on above: This is a duplicate [place] SARS Antigen (VANIA) result to be used for statistical tracking purpose only. No Panel InformationOrdered By: Gerber Short on 08-23-2022 SARS Antigen (LFIA) [facility] POTASSIUMon 08-18-2022 Potassium [Moles/Vol] 5.8 mmol/L Critically high 3.5-5.1 [facility] Comment on above: Performed By: #### C BC #### [facility] [address] [place] [address] Dr. Karen Santos LIPID PROFILEon 08-07-2022 CHOL-HDL RATIO NORM SEE BELOW Normal [facility] Comment on above: Result Comment: 3.3 - 4.4 LOW RISK 4.4 - 7.1 AVERAGE RISK 7.1 - 11.0 MODERATE RISK >11.0 HIGH RISK Performed By: #### C BC #### [facility] [address] [address] [address] Karen Santos Cholesterol [Mass/Vol] 116 mg/dL Normal <=200 [facility] Comment on above: Performed By: #### C BC #### [facility] [address] [address] [address] Karen Santos Cholesterol in HDL [Mass/Vol] 34 mg/dL Critically low 40-60 [facility] Comment on above: Performed By: #### C BC #### [facility] [address] [address] [address] Karen Santos Cholesterol in LDL [Mass/Vol] 47.4 mg/dL Normal [facility] Comment on above: Performed By: #### C BC #### [facility] [address] [address] [address] Karen Santos Cholesterol.total/Chol esterol in HDL [Mass ratio] 3.4 {ratio} Normal [facility] Comment on above: Performed By: #### C BC #### [facility] [address] [address] [address] Karen Santos HDL NORMAL > or = 60 mg/dl - LO W CARDIOVASCULAR RISK <40 mg/dl - HIGH CARDIOVASCULAR RISK Normal [facility] Comment on above: Performed By: #### C BC #### [facility] [address] [address] [address] Karen Santos LDL CALC NORMAL SEE BELOW Normal [facility] Comment on above: Result Comment: <100 mg/dl OPTIMAL 100 - 129 mg/dl NEAR OR ABOVE OPTIMAL 130 - 159 mg/dl BORDERLINE HIGH 160 - 189 mg/dl HIGH >190 mg/dl VERY HIGH Performed By: #### C BC #### [facility] [address] [address] [address] Karen Santos Triglyceride [Mass/Vol] 173 mg/dL Critically high <=150 [facility] Comment on above: Performed By: #### C BC #### [facility] [address] [address] [address] Karen Santos VLDL CALC 34.6 mg/dL Normal [facility] Comment on above: Performed By: #### C BC #### [facility] [address] [address] [address] Karen Santos POTASSIUMon 08-04-2022 Potassium [Moles/Vol] 5.0 mmol/L Normal 3.5-5.1 [facility] Comment on above: Performed By: #### C BC #### [facility] [address] [place] [address] Dr. Karen Santos Basophils Auto (Bld) [#/Vol] Ordered By: Luis Carlos Amaro on 07-11-2022 Basophils (Bld) [#/Vol] 0.1 10*3/uL 0.0-0.2 [facility] Basophils/100 WBC Auto (Bld) Ordered By: Luis Carlos Amaro on 07-11-2022 Basophils/100 WBC (Bld) 0.6 % . [facility] Blood hemoglobin measurement (mass/volume)Ordered By: Luis Carlos Amaro on 07-11-2022 Hemoglobin (Bld) [Mass/Vol] 10.6 g/dL 13.0-17.0 [facility] Blood leukocytes automated c ount (number/volume)Ordered By: Luis Carlos Amaro on 07-11-2022 WBC (Bld) [#/Vol] 8.9 10*3/uL 4.5-11.0 [facility] Blood polychromasia detectio n by light microscopyOrdered By: Luis Carlos Amaro on 07-11-2022 Polychromasia LM Ql (Bld) Slight [facility] Creatinine and Glomerular fi ltration rate.predicted panel (S/P/Bld)Ordered By: Luis Carlos Amaro on 07-11-2022 Creatinine [Mass/Vol] 7.92 mg/dL 0.64-1.27 [facility] Eosinophils Auto (Bld) [#/Vo l]Ordered By: Luis Carlos Amaro on 07-11-2022 Eosinophils (Bld) [#/Vol] 0.2 10*3/uL 0.0-0.45 [facility] Eosinophils/100 WBC Auto (Bl d)Ordered By: Luis Carlos Amaro on 07-11-2022 Eosinophils/100 WBC (Bld) 1.9 % . [facility] Erythrocyte distribution wid th Auto (RBC) [Ratio]Ordered By: Luis Carlos Amaro on 07-11-2022 Erythrocyte distribution width (RBC) [Ratio] 14.5 % 12.0-14.8 [facility] Estimated glomerular filtrat ion rate (GFR) non- AmericanOrdered By: Luis Carlos Amaro on 07-11-2022 GFR/1.73 sq M.predicted among non-blacks MDRD (S/P/Bld) [Vol rate/Area] 7 mL/Min [facility] Hematocrit Auto (Bld) [Volum e fraction]Ordered By: Luis Carlos Amaro on 07-11-2022 Hematocrit (Bld) [Volume fraction] 32.0 % 38.8-50.0 [facility] Laboratory - Hematology and Cell countsOrdered By: Luis Carlos Amaro on 07-11-2022 Nucleated RBC/100 WBC (Bld) [Ratio] 0.0 % 0-0.5 [facility] Lymphocytes Auto (Bld) [#/Vo l]Ordered By: Luis Carlos Amaro on 07-11-2022 Lymphocytes (Bld) [#/Vol] 0.9 10*3/uL 1.00-4.8 [facility] Lymphocytes/100 WBC Auto (Bl d)Ordered By: Luis Carlos Amaro on 07-11-2022 Lymphocytes/100 WBC (Bld) 10.1 % . [facility] MCH Auto (RBC) [Entitic mass ]Ordered By: Luis Carlos Amaro on 07-11-2022 MCH (RBC) [Entitic mass] 37.8 pg 27.5-35.2 [facility] MCHC Auto (RBC) [Mass/Vol]Or dered By: Luis Carlos Amaro on 07-11-2022 MCHC (RBC) [Mass/Vol] 33.3 g/dL 32.5-35.6 [facility] MCV Auto (RBC) [Entitic vol] Ordered By: Luis Carlos Amaro on 07-11-2022 MCV (RBC) [Entitic vol] 113.5 fL 83.5-101 [facility] Macrocytes detectionOrdered By: Luis Carlos Amaro on 07-11-2022 Macrocytes Ql (Bld) Moderate [facility] Monocytes Auto (Bld) [#/Vol] Ordered By: Luis Carlos Amaro on 07-11-2022 Monocytes (Bld) [#/Vol] 0.6 10*3/uL 0.0-0.8 [facility] Monocytes/100 WBC Auto (Bld) Ordered By: Luis Carlos Amaro on 07-11-2022 Monocytes/100 WBC (Bld) 7.0 % . [facility] Neutrophils Auto (Bld) [#/Vo l]Ordered By: Luis Carlos Amaro on 07-11-2022 Neutrophils (Bld) [#/Vol] 7.1 10*3/uL 1.8-7.7 [facility] Neutrophils/100 WBC Auto (Bl d)Ordered By: Luis Carlos Amaro on 07-11-2022 Neutrophils/100 WBC (Bld) 80.4 % . [facility] No Panel InformationOrdered By: Luis Carlos Amaro on 07-11-2022 Estimated GFR () 9 mL/Min [facility] Comment on above: GFR estimated refere nce range: According to KDOQI guidelines, <60 ml/min/1.73m2 is sufficient to diagnose a patient with chronic kidney disease. Pharmacy Creatinine Clearance (Chem 12.57 [facility] Platelet Estimate Normal Normal [facility] Platelet Morphology Comment Normal Normal [facility] Poikilocytosis Slight [facility] Ovalocyte detectionOrdered B y: Luis Carlos Amaro on 07-11-2022 Ovalocytes LM Ql (Bld) Slight [facility] Platelet mean volume Auto (B ld) [Entitic vol]Ordered By: Luis Carlos Amaro on 07-11-2022 Platelet mean volume (Bld) [Entitic vol] 7.3 fL 6.6-10.1 [facility] Platelets Auto (Bld) [#/Vol] Ordered By: Luis Carlos Amaro on 07-11-2022 Platelets (Bld) [#/Vol] 304 10*3/uL 150-450 [facility] RBC Auto (Bld) [#/Vol]Ordere d By: Luis Carlos Amaro on 07-11-2022 RBC (Bld) [#/Vol] 2.82 10*6/uL 3.90-5.60 [facility] RBC morphologyOrdered By: Claudette Amaro on 07-11-2022 RBC morphology finding Nom (Bld) N/A [facility] Serum or plasma anion gap de terminationOrdered By: Luis Carlos Amaro on 07-11-2022 Anion gap [Moles/Vol] 17.3 mmol/L 6.0-15.0 [facility] Serum or plasma calcium cande urement (mass/volume)Ordered By: Luis Carlos Amaro on 07-11-2022 Calcium [Mass/Vol] 9.2 mg/dL 8.2-10.2 [facility] Serum or plasma chloride rose marie surement (moles/volume)Ordered By: Luis Carlos Amaro on 07-11-2022 Chloride [Moles/Vol] 92 mmol/L 95-114 [facility] Serum or plasma glucose cande urement (mass/volume)Ordered By: Luis Carlos Amaro on 07-11-2022 Glucose [Mass/Vol] 87 mg/dL 70-100 [facility] Comment on above: ADA recommended refe rence rangeRandom Glucose Reference Range is dependent on time and content of last meal. Glucose of more than 200 mg/dL in a nonstressed, ambulatory subject supports the diagnosis of Diabetes Mellitus. Serum or plasma potassium me asurement (moles/volume)Ordered By: Luis Carlos Amaro on 07-11-2022 Potassium [Moles/Vol] 4.0 mmol/L 3.5-5.1 [facility] Serum or plasma sodium measu rement (moles/volume)Ordered By: Luis Carlos Amaro on 07-11-2022 Sodium [Moles/Vol] 134 mmol/L 136-146 [facility] Serum or plasma total carbon dioxide measurement (moles/volume)Ordered By: Luis Carlos Amaro on 07-11-2022 CO2 [Moles/Vol] 28.7 mmol/L 22.0-30.0 [facility] Serum or plasma urea nitroge n measurement (mass/volume)Ordered By: Luis Carlos Amaro on 07-11-2022 Urea nitrogen [Mass/Vol] 19 mg/dL 9-23 [facility] COVID-19 Positive/NegativeOr dered By: Patrice Levine on 07-10-2022 SARS-CoV-2 (COVID-19) N gene CHARLES+probe Ql (Resp) Negative Negative [facility] Comment on above: Testing for SARS-CoV -2 by RT-PCRThis test was developed and its performance characteristics determined by [employer] and validated at the [facility]. This test has not been FDA cleared [...] XR ABD FLAT UP_PA CH ACUTE ABDOMINAL SER IES HISTORY: Abdominal pain TECHNIQUE: A single view [...] SUBHASH VICENTE Date: 2022-06-09 22:18 Normal [facility] CBC AUTO DIFFon 06-09-2022 BASO # 0.0 103/ul Normal 0.0-0.1 [facility] Comment on above: Performed By: #### C BC #### [facility] [address] [place] [address] Dr. Karen Santos Basophils/100 WBC (Bld) 0.1 % Critically low 0.2-2.0 [facility] Comment on above: Performed By: #### C BC #### [facility] [address] [address] [address] Karen Santos EO # 0.1 103/ul Normal 0.0-0.7 [facility] Comment on above: Performed By: #### C BC #### [facility] [address] [place] [address] Dr. Karen Santos Eosinophils/100 WBC (Bld) 0.3 % Critically low 0.9-7.0 [facility] Comment on above: Performed By: #### C BC #### [facility] [address] [address] [address] Karen Santos Erythrocyte distribution width (RBC) [Ratio] 15.1 % Critically high 11.0-15.0 [facility] Comment on above: Performed By: #### C BC #### [facility] [address] [address] [address] Karen Santos Hematocrit (Bld) [Volume fraction] 26.4 % Critically low 42.0-54.0 [facility] Comment on above: Performed By: #### C BC #### [facility] [address] [address] [address] Karen Santos Hemoglobin (Bld) [Mass/Vol] 9.0 g/dL Critically low 14.0-18.0 [facility] Comment on above: Performed By: #### C BC #### [facility] [address] [place] [address] Dr. Karen Santos IG # 0.44 10e3/ul Critically high 0.00-0.03 [facility] Comment on above: Performed By: #### C BC #### [facility] [address] [address] [address] Karen Santos IG % 2.1 % Critically high 0.0-0.5 [facility] Comment on above: Performed By: #### C BC #### [facility] [address] [address] [address] Karen Santos LYMPH # 1.5 103/ul Normal 1.2-3.8 [facility] Comment on above: Performed By: #### C BC #### [facility] [address] [address] [address] Karen Santos Lymphocytes/100 WBC (Bld) 7.3 % Critically low 20.5-60.0 [facility] Comment on above: Performed By: #### C BC #### [facility] [address] [address] [address] Karen Santos MANUAL DIFF REQ NO Normal [facility] Comment on above: Performed By: #### C BC #### [facility] [address] [address] [address] Karen Santos MCH (RBC) [Entitic mass] 37.0 pg Critically high 25.9-34.0 [facility] Comment on above: Performed By: #### C BC #### [facility] [address] [place] [address] Dr. Karen Santos MCHC (RBC) [Mass/Vol] 34.1 g/dL Normal 29.9-35.2 [facility] Comment on above: Performed By: #### C BC #### [facility] [address] [place] [address] Dr. Karen Santos MCV (RBC) [Entitic vol] 108.6 fL Critically high 80.0-94.0 [facility] Comment on above: Performed By: #### C BC #### [facility] [address] [place] [address] Dr. Karen Santos MONO # 1.0 103/ul Critically high 0.3-0.8 [facility] Comment on above: Performed By: #### C BC #### [facility] [address] [place] [address] Dr. Karen Santos Monocytes/100 WBC (Bld) 5.0 % Normal 1.7-12.0 [facility] Comment on above: Performed By: #### C BC #### [facility] [address] [place] [address] Dr. Karen Santos NEUT # 17.7 103/ul Critically high 1.4-6.5 [facility] Comment on above: Performed By: #### C BC #### [facility] [address] [place] [address] Dr. Karen Santos Neutrophils/100 WBC (Bld) 85.2 % Critically high 43.0-75.0 [facility] Comment on above: Performed By: #### C BC #### [facility] [address] [place] [address] Dr. Karen Santos Platelet mean volume (Bld) [Entitic vol] 9.5 fL Normal 9.5-13.5 [facility] Comment on above: Performed By: #### C BC #### [facility] [address] [address] [address] Karen Santos PLT 280 103/ul Normal 150-450 [facility] Comment on above: Performed By: #### C BC #### [facility] [address] [address] [address] Karen Santos RBC 2.43 106/ul Critically low 4.70-6.10 [facility] Comment on above: Performed By: #### C BC #### [facility] [address] [address] [address] Karen Santos WBC 20.7 103/ul Critically high 4.0-11.[address] [facility] Comment on above: Performed By: #### C BC #### [facility] [address] [address] [address] Karen Santos PROF 14(COMP METB)on 022 Albumin [Mass/Vol] 3.5 g/dL Normal 3.4-5.0 [facility] Comment on above: Performed By: #### C MP ####[facility] [address] [address]Dr. Karen Santos Albumin/Globulin [Mass ratio] 0.9 {ratio} Normal [facility] Comment on above: Performed By: #### C MP ####[facility] [address] [address]Dr. Karen Santos ALP [Catalytic activity/Vol] 93 U/L Normal 46-116 [facility] Comment on above: Performed By: #### C MP ####[facility] [address] [id number][address] Karen Santos ALT [Catalytic activity/Vol] 11 U/L Critically low 16-63 [facility] Comment on above: Performed By: #### C MP ####[facility] [address] [address]DrEva Santos Anion gap [Moles/Vol] 22.3 mmol/L Normal [facility] Comment on above: Performed By: #### C MP ####[facility] [address] [id number][address] Karen Santos AST [Catalytic activity/Vol] 15 U/L Normal 15-37 [facility] Comment on above: Performed By: #### C MP ####[facility] [address] [address]Dr. Karen Santos Bilirubin [Mass/Vol] 0.4 mg/dL Normal 0.2-1.0 [facility] Comment on above: Performed By: #### C MP ####[facility] [address] [address]Dr. Karen Santos Calcium [Mass/Vol] 8.8 mg/dL Normal 8.5-10.1 [facility] Comment on above: Performed By: #### C MP ####[facility] [address] [place], [place] [address]Dr. Karen Santos Chloride [Moles/Vol] 90 mmol/L Critically low 98-107 [facility] Comment on above: Performed By: #### C MP ####[facility] [address] [place], [place] [address]Dr. Karen Santos CO2 [Moles/Vol] 22.0 mmol/L Normal 21.0-32.0 [facility] Comment on above: Performed By: #### C MP ####[facility] [address] [place], [place] [address]Dr. Karen Santos Creatinine [Mass/Vol] 13.37 mg/dL Critically high 0.70-1.3 0 [facility] Comment on above: Result Comment: unkn own if done Performed By: #### C MP ####[facility] [address] [address]Dr. Karen Tom EGFR-AF BHUTANESE 5 mL/min/1.73m2 Critically low >=60 [facility] Comment on above: Performed By: #### C MP ####[facility] [address] [place], [place] [id number]. Virajacinda Tom EGFR-NON AF BHUTANESE 4 mL/min/1.73m2 Critically low >=60 [facility] Comment on above: Performed By: #### C MP ####[facility] [address] [address]Dr. Karen Santos Globulin (S) [Mass/Vol] 3.7 g/dL Normal [facility] Comment on above: Performed By: #### C MP ####[facility] [address] [address]Dr. Karen Santos Glucose [Mass/Vol] 90 mg/dL Normal 74-106 [facility] Comment on above: Performed By: #### C MP ####[facility] [address] [place], [place] [address]Dr. Karen Santos Potassium [Moles/Vol] 5.3 mmol/L Critically high 3.5-5.1 [facility] Comment on above: Performed By: #### C MP ####[facility] [address] [place], [place] [address]Dr. Karen Santos Protein [Mass/Vol] 7.2 g/dL Normal 6.4-8.2 [facility] Comment on above: Performed By: #### C MP ####[facility] [address] [place], [place] [address]Dr. Karen Santos Sodium [Moles/Vol] 129 mmol/L Critically low 136-145 [facility] Comment on above: Performed By: #### C MP ####[facility] [address] [place], [place] [address]Dr. Karen Santos Urea nitrogen [Mass/Vol] 53.0 mg/dL Critically high 7.0-18.0 [facility] Comment on above: Performed By: #### C MP ####[facility] [address] [place], [place] [address]Dr. Karen Santos Urea nitrogen/Creatinine [Mass ratio] 3.9 mg/mg Normal [facility] Comment on above: Performed By: #### C MP ####[facility] [address] [place], [place] [address]Dr. Karen Tom CBC AUTO DIFFon 02-28-2022 BASO # 0.0 103/ul Normal 0.0-0.1 [facility] Comment on above: Performed By: #### C BC #### [facility] [address] [address] [address] Karen Santos Basophils/100 WBC (Bld) 0.4 % Normal 0.2-2.0 [facility] Comment on above: Performed By: #### C BC #### [facility] [address] [address] [address] Karen Santos EO # 0.2 103/ul Normal 0.0-0.7 [facility] Comment on above: Performed By: #### C BC #### [facility] [address] [address] [address] Karen Santos Eosinophils/100 WBC (Bld) 1.4 % Normal 0.9-7.0 [facility] Comment on above: Performed By: #### C BC #### [facility] [address] [address] [address] Karen Santos Erythrocyte distribution width (RBC) [Ratio] 12.4 % Normal 11.0-15.0 [facility] Comment on above: Performed By: #### C BC #### [facility] [address] [address] [address] Karen Santos Hematocrit (Bld) [Volume fraction] 40.7 % Critically low 42.0-54.0 [facility] Comment on above: Performed By: #### C BC #### [facility] [address] [address] [address] Karen Santos Hemoglobin (Bld) [Mass/Vol] 14.0 g/dL Normal 14.0-18.0 [facility] Comment on above: Performed By: #### C BC #### [facility] [address] [address] [address] Karen Santos IG # 0.06 10e3/ul Critically high 0.00-0.03 [facility] Comment on above: Performed By: #### C BC #### [facility] [address] [address] [address] Karen Santos IG % 0.6 % Critically high 0.0-0.5 [facility] Comment on above: Performed By: #### C BC #### [facility] [address] [address] [address] Karen Santos LYMPH # 0.9 103/ul Critically low 1.2-3.8 [facility] Comment on above: Performed By: #### C BC #### [facility] [address] [place] [address] Dr. Karen Santos Lymphocytes/100 WBC (Bld) 8.0 % Critically low 20.5-60.0 [facility] Comment on above: Performed By: #### C BC #### [facility] [address] [place] [address] Dr. Karen Santos MANUAL DIFF REQ NO Normal [facility] Comment on above: Performed By: #### C BC #### [facility] [address] [place] [address] Dr. Karen Santos MCH (RBC) [Entitic mass] 35.5 pg Critically high 25.9-34.0 [facility] Comment on above: Performed By: #### C BC #### [facility] [address] [place] [address] Dr. Karen Santos MCHC (RBC) [Mass/Vol] 34.4 g/dL Normal 29.9-35.2 [facility] Comment on above: Performed By: #### C BC #### [facility] [address] [place] [address] Dr. Karen Santos MCV (RBC) [Entitic vol] 103.3 fL Critically high 80.0-94.0 [facility] Comment on above: Performed By: #### C BC #### [facility] [address] [place] [address] Dr. Karen Santos MONO # 0.5 103/ul Normal 0.3-0.8 [facility] Comment on above: Performed By: #### C BC #### [facility] [address] [place] [address] Dr. Karen Santos Monocytes/100 WBC (Bld) 5.0 % Normal 1.7-12.0 [facility] Comment on above: Performed By: #### C BC #### [facility] [address] [address] [address] Karen Santos NEUT # 9.1 103/ul Critically high 1.4-6.5 [facility] Comment on above: Performed By: #### C BC #### [facility] [address] [address] [address] Karen Santos Neutrophils/100 WBC (Bld) 84.6 % Critically high 43.0-75.0 [facility] Comment on above: Performed By: #### C BC #### [facility] [address] [address] [address] Karen Santos Platelet mean volume (Bld) [Entitic vol] 9.1 fL Critically low 9.5-13.5 [facility] Comment on above: Performed By: #### C BC #### [facility] [address] [place] [address] Dr. Karen Santos PLT 350 103/ul Normal 150-450 [facility] Comment on above: Performed By: #### C BC #### [facility] [address] [place] [address] Dr. Karen Santos RBC 3.94 106/ul Critically low 4.70-6.10 [facility] Comment on above: Performed By: #### C BC #### [facility] [address] [place] [address] Dr. Karen Santos WBC 10.7 103/ul Normal 4.0-11.0 [facility] Comment on above: Performed By: #### C BC #### [facility] [address] [place] [address] Dr. Karen Santos PROF CHEM 8 (BAS METB)on Anion gap [Moles/Vol] 12.4 mmol/L Normal [facility] Comment on above: Performed By: #### C BC #### [facility] [address] [place] [address] Dr. Karen Santos Calcium [Mass/Vol] 9.5 mg/dL Normal 8.5-10.1 [facility] Comment on above: Performed By: #### C BC #### [facility] [address] [address] [address] Karen Santos Chloride [Moles/Vol] 95 mmol/L Critically low 98-107 [facility] Comment on above: Performed By: #### C BC #### [facility] [address] [address] [address] Karen Santos CO2 [Moles/Vol] 31.7 mmol/L Normal 21.0-32.[address] [facility] Comment on above: Performed By: #### C BC #### [facility] [address] [address] [address] Karen Santos Creatinine [Mass/Vol] 2.39 mg/dL Critically high 0.70-1.30 [facility] Comment on above: Performed By: #### C BC #### [facility] [address] [place] [address] Dr. Karen Santos EGFR-AF BHUTANESE 35 mL/min/1.73m2 Critically low >=60 [facility] Comment on above: Performed By: #### C BC #### [facility] [address] [address] [address] Karen Santos EGFR-NON AF BHUTANESE 29 mL/min/1.73m2 Critically low >=60 [facility] Comment on above: Performed By: #### C BC #### [facility] [address] [address] [address] Karen Santos Glucose [Mass/Vol] 105 mg/dL Normal 74-106 [facility] Comment on above: Performed By: #### C BC #### [facility] [address] [address] [address] Karen Santos Potassium [Moles/Vol] 4.1 mmol/L Normal 3.5-5.1 [facility] Comment on above: Performed By: #### C BC #### [facility] [address] [address] [address] Karen Santos Sodium [Moles/Vol] 135 mmol/L Critically low 136-145 [facility] Comment on above: Performed By: #### C BC #### [facility] [address] [address] [address] Karen Santos Urea nitrogen [Mass/Vol] 15.0 mg/dL Normal 7.0-18.0 [facility] Comment on above: Performed By: #### C BC #### [facility] [address] [address] [address] Karen Santos Urea nitrogen/Creatinine [Mass ratio] 6.3 mg/mg Normal [facility] Comment on above: Performed By: #### C BC #### [facility] [address] [address] [address] Karen Santos CBC AUTO DIFFon 02-24-2022 BASO # 0.1 103/ul Normal 0.0-0.1 [facility] Comment on above: Performed By: #### C BC ####[facility] [address] [address]DrEva Santos Basophils/100 WBC (Bld) 0.6 % Normal 0.2-2.0 [facility] Comment on above: Performed By: #### C BC ####[facility] [address] [address]Dr. Karen Santos EO # 0.3 103/ul Normal 0.0-0.7 [facility] Comment on above: Performed By: #### C BC ####[facility] [address] [address]Dr. Karen Santos Eosinophils/100 WBC (Bld) 2.6 % Normal 0.9-7.0 [facility] Comment on above: Performed By: #### C BC ####[facility] [address] [address]DrEva Santos Erythrocyte distribution width (RBC) [Ratio] 12.5 % Normal 11.0-15.0 [facility] Comment on above: Performed By: #### C BC ####[facility] [address] [address]DrEva Santos Hematocrit (Bld) [Volume fraction] 37.1 % Critically low 42.0-54.0 [facility] Comment on above: Performed By: #### C BC ####[facility] [address] [id number]. Karen Santos Hemoglobin (Bld) [Mass/Vol] 12.8 g/dL Critically low 14.0-18.0 [facility] Comment on above: Performed By: #### C BC ####[facility] [address] [id number][address] Karen Santos IG # 0.28 10e3/ul Critically high 0.00-0.03 [facility] Comment on above: Performed By: #### C BC ####[facility] [address] [id number] Karen Santos IG % 2.2 % Critically high 0.0-0.5 [facility] Comment on above: Performed By: #### C BC ####[facility] [address] [address]Dr. Karen Tom LYMPH # 1.0 103/ul Critically low 1.2-3.8 [facility] Comment on above: Performed By: #### C BC ####[facility] [address] [id number] Karen Santos Lymphocytes/100 WBC (Bld) 7.6 % Critically low 20.5-60.0 [facility] Comment on above: Performed By: #### C BC ####[facility] [address] [id number]. Karen Santos MANUAL DIFF REQ NO Normal [facility] Comment on above: Performed By: #### C BC ####[facility] [address] [id number]. Karen Santos MCH (RBC) [Entitic mass] 35.9 pg Critically high 25.9-34.0 [facility] Comment on above: Performed By: #### C BC ####[facility] [address] [id number]. Karen Santos MCHC (RBC) [Mass/Vol] 34.5 g/dL Normal 29.9-35.2 [facility] Comment on above: Performed By: #### C BC ####[facility] [address] [id number]. Karen Santos MCV (RBC) [Entitic vol] 103.9 fL Critically high 80.0-94.0 [facility] Comment on above: Performed By: #### C BC ####[facility] [address] [id number]. Karen Santos MONO # 0.8 103/ul Normal 0.3-0.8 [facility] Comment on above: Performed By: #### C BC ####[facility] [address] [id number]. Karen Tom Monocytes/100 WBC (Bld) 6.6 % Normal 1.7-12.0 [facility] Comment on above: Performed By: #### C BC ####[facility] [address] [place], [place] [address]Dr. Karen Santos NEUT # 10.1 103/ul Critically high 1.4-6.[address] [facility] Comment on above: Performed By: #### C BC ####[facility] [address] [id number]. Virajacinda Santos Neutrophils/100 WBC (Bld) 80.4 % Critically high 43.0-75.0 [facility] Comment on above: Performed By: #### C BC ####[facility] [address] [id number]. Karen Santos Platelet mean volume (Bld) [Entitic vol] 9.5 fL Normal 9.5-13.5 [facility] Comment on above: Performed By: #### C BC ####[facility] [address] [id number]. Karen Santos PLT 331 103/ul Normal 150-450 [facility] Comment on above: Performed By: #### C BC ####[facility] [address] [id number]. Karen Santos RBC 3.57 106/ul Critically low 4.70-6.10 [facility] Comment on above: Performed By: #### C BC ####[facility] [address] [place], [place] [address]MdDr. Karen Santos WBC 12.5 103/ul Critically high 4.0-11.[address] [facility] Comment on above: Performed By: #### C BC ####[facility] [address] [place], [place] [address]OiDr. Karen Santos PROF CHEM 8 (BAS METB)on Anion gap [Moles/Vol] 12.6 mmol/L Normal [facility] Comment on above: Performed By: #### M G, RENAL #### [facility] [address] [address] [address] Karen Santos Calcium [Mass/Vol] 9.5 mg/dL Normal 8.5-10.1 [facility] Comment on above: Performed By: #### M G, RENAL #### [facility] [address] [address] [address] Karen Santos Chloride [Moles/Vol] 95 mmol/L Critically low 98-107 [facility] Comment on above: Performed By: #### M G, RENAL #### [facility] [address] [address] [address] Karen Santos CO2 [Moles/Vol] 28.5 mmol/L Normal 21.0-32.[address] [facility] Comment on above: Performed By: #### M G, RENAL #### [facility] [address] [address] [address] Karen Santos Creatinine [Mass/Vol] 1.70 mg/dL Critically high 0.70-1.30 [facility] Comment on above: Performed By: #### M G, RENAL #### [facility] [address] [address] [address] Karen Santos EGFR-AF BHUTANESE 51 mL/min/1.73m2 Critically low >=60 [facility] Comment on above: Performed By: #### M G, RENAL #### [facility] [address] [address] [address] Karen Santos EGFR-NON AF BHUTANESE 42 mL/min/1.73m2 Critically low >=60 [facility] Comment on above: Performed By: #### M G, RENAL #### [facility] [address] [place] [address] Dr. Karen Santos Glucose [Mass/Vol] 111 mg/dL Critically high 74-106 [facility] Comment on above: Performed By: #### M G, RENAL #### [facility] [address] [place] [address] Dr. Karen Santos Potassium [Moles/Vol] 3.1 mmol/L Critically low 3.5-5.1 [facility] Comment on above: Performed By: #### M G, RENAL #### [facility] [address] [place] [address] Dr. Karen Santos Sodium [Moles/Vol] 133 mmol/L Critically low 136-145 [facility] Comment on above: Performed By: #### Marcelo G, RENAL #### [facility] [address] [place] [address] Dr. Karen Santos Urea nitrogen [Mass/Vol] 8.0 mg/dL Normal 7.0-18.0 [facility] Comment on above: Performed By: #### M G, RENAL #### [facility] [address] [place] [address] Dr. Karen Santos Urea nitrogen/Creatinine [Mass ratio] 4.7 mg/mg Normal [facility] Comment on above: Performed By: #### Marcelo G, RENAL #### [facility] [address] [place] [address] Dr. Karen Santos TROPONIN, HIGH SENSITIVITYon 02-24-2022 HSTROP 10.3 pg/mL Normal 4.0-76.1 [facility] Comment on above: Result Comment: CUT- OFF POINTS HAVE BEEN ESTABLISHED BASED ON THE FOURTH UNIVERSAL DEFINITIONS OF MYOCARDIAL INFARCTION. THE UPPER REFERENCE LIMIT (URL) OF TROPONIN, DEFINED THE 99TH PERCENTILE OF cTnI DISTRIBUTION IN A REFERENCE POPULATION, HAS BEEN CONFIRMED THE DECISION THRESHOLD FOR [place] DIAGNOSIS. Performed By: #### M G, RENAL #### [facility] [address] [place] [address] Dr. Karen Santos CBC AUTO DIFFon 02-18-2022 BASO # 0.0 103/ul Normal 0.0-0.1 [facility] Comment on above: Performed By: #### M G, RENAL #### [facility] [address] [place] [address] Dr. Karen Santos Basophils/100 WBC (Bld) 0.3 % Normal 0.2-2.0 [facility] Comment on above: Performed By: #### M G, RENAL #### [facility] [address] [place] [address] Dr. Karen Santos EO # 0.2 103/ul Normal 0.0-0.7 [facility] Comment on above: Performed By: #### M G, RENAL #### [facility] [address] [place] [address] Dr. Karen Santos Eosinophils/100 WBC (Bld) 1.5 % Normal 0.9-7.0 [facility] Comment on above: Performed By: #### M G, RENAL #### [facility] [address] [place] [address] Dr. Karen Santos Erythrocyte distribution width (RBC) [Ratio] 13.1 % Normal 11.0-15.0 [facility] Comment on above: Performed By: #### M G, RENAL #### [facility] [address] [place] [address] Dr. Karen Santos Hematocrit (Bld) [Volume fraction] 35.7 % Critically low 42.0-54.0 [facility] Comment on above: Performed By: #### M G, RENAL #### [facility] [address] [place] [address] Dr. Karen Santos Hemoglobin (Bld) [Mass/Vol] 12.1 g/dL Critically low 14.0-18.0 [facility] Comment on above: Performed By: #### M G, RENAL #### [facility] [address] [place] [address] Dr. Karen Santos IG # 0.07 10e3/ul Critically high 0.00-0.03 [facility] Comment on above: Performed By: #### M G, RENAL #### [facility] [address] [address] [address] Karen Santos IG % 0.6 % Critically high 0.0-0.5 [facility] Comment on above: Performed By: #### M G, RENAL #### [facility] [address] [address] [address] Karen Santos LYMPH # 1.2 103/ul Normal 1.2-3.8 [facility] Comment on above: Performed By: #### M G, RENAL #### [facility] [address] [address] [address] Karen Santos Lymphocytes/100 WBC (Bld) 11.1 % Critically low 20.5-60.0 [facility] Comment on above: Performed By: #### M G, RENAL #### [facility] [address] [place] [address] Dr. Karen Santos MANUAL DIFF REQ NO Normal [facility] Comment on above: Performed By: #### M G, RENAL #### [facility] [address] [address] [address] Karen Santos MCH (RBC) [Entitic mass] 35.9 pg Critically high 25.9-34.0 [facility] Comment on above: Performed By: #### M G, RENAL #### [facility] [address] [address] [address] Karen Santos MCHC (RBC) [Mass/Vol] 33.9 g/dL Normal 29.9-35.2 [facility] Comment on above: Performed By: #### M G, RENAL #### [facility] [address] [address] [address] Karen Santos MCV (RBC) [Entitic vol] 105.9 fL Critically high 80.0-94.0 [facility] Comment on above: Result Comment: 2+ m acrocytosis Performed By: #### M G, RENAL #### [facility] [address] [address] [address] Karen Santos MONO # 0.8 103/ul Normal 0.3-0.8 [facility] Comment on above: Performed By: #### M G, RENAL #### [facility] [address] [address] [address] Karen Santos Monocytes/100 WBC (Bld) 6.9 % Normal 1.7-12.0 [facility] Comment on above: Performed By: #### M G, RENAL #### [facility] [address] [place] [address] Dr. Karen Santos NEUT # 8.8 103/ul Critically high 1.4-6.5 [facility] Comment on above: Performed By: #### M G, RENAL #### [facility] [address] [place] [address] Dr. Karen Santos Neutrophils/100 WBC (Bld) 79.6 % Critically high 43.0-75.0 [facility] Comment on above: Performed By: #### M G, RENAL #### [facility] [address] [place] [address] Dr. Karen Santos Platelet mean volume (Bld) [Entitic vol] 9.3 fL Critically low 9.5-13.5 [facility] Comment on above: Performed By: #### M G, RENAL #### [facility] [address] [place] [address] Dr. Karen Santos PLT 272 103/ul Normal 150-450 [facility] Comment on above: Performed By: #### M G, RENAL #### [facility] [address] [place] [address] Dr. Karen Santos RBC 3.37 106/ul Critically low 4.70-6.10 [facility] Comment on above: Performed By: #### M G, RENAL #### [facility] [address] [place] [address] Dr. Karen Santos WBC 11.1 103/ul Critically high 4.0-11.0 [facility] Comment on above: Performed By: #### M G, RENAL #### [facility] [address] [place] [address] Dr. Karen Santos PROF 14(COMP METB)on 022 Albumin [Mass/Vol] 3.7 g/dL Normal 3.4-5.0 [facility] Comment on above: Performed By: #### C BC #### [facility] [address] [place] [address] Dr. Karen Santos Albumin/Globulin [Mass ratio] 1.1 {ratio} Normal [facility] Comment on above: Performed By: #### C BC #### [facility] [address] [address] [address] Karen Santos ALP [Catalytic activity/Vol] 110 U/L Normal 46-116 [facility] Comment on above: Performed By: #### C BC #### [facility] [address] [place] [address] Dr. Karen Santos ALT [Catalytic activity/Vol] 15 U/L Critically low 16-63 [facility] Comment on above: Performed By: #### C BC #### [facility] [address] [place] [address] Dr. Karen Santos Anion gap [Moles/Vol] 18.2 mmol/L Normal [facility] Comment on above: Performed By: #### C BC #### [facility] [address] [place] [address] Dr. Karen Santos AST [Catalytic activity/Vol] 9 U/L Critically low 15-37 [facility] Comment on above: Performed By: #### C BC #### [facility] [address] [place] [address] Dr. Karen Santos Bilirubin [Mass/Vol] 0.4 mg/dL Normal 0.2-1.0 [facility] Comment on above: Performed By: #### C BC #### [facility] [address] [address] [address] Karen Santos Calcium [Mass/Vol] 8.3 mg/dL Critically low 8.5-10.1 [facility] Comment on above: Performed By: #### C BC #### [facility] [address] [place] [address] Dr. Karen Santos Chloride [Moles/Vol] 88 mmol/L Critically low 98-107 [facility] Comment on above: Performed By: #### C BC #### [facility] [address] [address] [address] Karen Santos CO2 [Moles/Vol] 23.9 mmol/L Normal 21.0-32.[address] [facility] Comment on above: Performed By: #### C BC #### [facility] [address] [address] [address] Karen Santos Creatinine [Mass/Vol] 8.30 mg/dL Critically high 0.70-1.30 [facility] Comment on above: Result Comment: repe ated Performed By: #### C BC #### [facility] [address] [place] [address] Dr. Karen Santos EGFR-AF BHUTANESE 8 mL/min/1.73m2 Critically low >=60 [facility] Comment on above: Performed By: #### C BC #### [facility] [address] [place] [address] Dr. Karen Santos EGFR-NON AF BHUTANESE 7 mL/min/1.73m2 Critically low >=60 [facility] Comment on above: Performed By: #### C BC #### [facility] [address] [place] [address] Dr. Karen Santos Globulin (S) [Mass/Vol] 3.4 g/dL Normal [facility] Comment on above: Performed By: #### C BC #### [facility] [address] [address] [address] Karen Santos Glucose [Mass/Vol] 109 mg/dL Critically high 74-106 [facility] Comment on above: Performed By: #### C BC #### [facility] [address] [address] [address] Karen Santos Potassium [Moles/Vol] 3.1 mmol/L Critically low 3.5-5.1 [facility] Comment on above: Performed By: #### C BC #### [facility] [address] [place] [address] Dr. Karen Santos Protein [Mass/Vol] 7.1 g/dL Normal 6.4-8.2 [facility] Comment on above: Performed By: #### C BC #### [facility] [address] [address] [address] Karen Santos Sodium [Moles/Vol] 127 mmol/L Critically low 136-145 [facility] Comment on above: Performed By: #### C BC #### [facility] [address] [address] [address] Karen Santos Urea nitrogen [Mass/Vol] 48.0 mg/dL Critically high 7.0-18.0 [facility] Comment on above: Performed By: #### C BC #### [facility] [address] [address] [address] Karen Santos Urea nitrogen/Creatinine [Mass ratio] 5.8 mg/mg Normal [facility] Comment on above: Performed By: #### C BC #### [facility] [address] [place] [address] Dr. Karen Santos CARDIAC SRINIVASAN ADMITon 022 CK [Catalytic activity/Vol] 81 U/L Normal 39-308 [facility] Comment on above: Performed By: #### C BC #### [facility] [address] [place] [address] Dr. Karen Santos CK.MB [Mass/Vol] 1.75 ng/mL Normal <=3.[address] [facility] Comment on above: Performed By: #### C BC #### [facility] [address] [place] [address] Dr. Karen Santos HSTROP 20.8 pg/mL Normal 4.0-76.1 [facility] Comment on above: Result Comment: CUT- OFF POINTS HAVE BEEN ESTABLISHED BASED ON THE FOURTH UNIVERSAL DEFINITIONS OF MYOCARDIAL INFARCTION. THE UPPER REFERENCE LIMIT (URL) OF TROPONIN, DEFINED THE 99TH PERCENTILE OF cTnI DISTRIBUTION IN A REFERENCE POPULATION, HAS BEEN CONFIRMED THE DECISION THRESHOLD FOR [place] DIAGNOSIS. Performed By: #### C BC #### [facility] [address] [place] [address] Dr. Karen Santos RUI 129 ng/mL Critically high 16-96 [facility] Comment on above: Performed By: #### C BC #### [facility] [address] [address] [address] Karen Santos CBC AUTO DIFFon 02-14-2022 BASO # 0.1 103/ul Normal 0.0-0.1 [facility] Comment on above: Performed By: #### C BC #### [facility] [address] [address] [address] Karen Santos Basophils/100 WBC (Bld) 0.4 % Normal 0.2-2.0 [facility] Comment on above: Performed By: #### C BC #### [facility] [address] [address] [address] Karen Santos EO # 0.1 103/ul Normal 0.0-0.7 [facility] Comment on above: Performed By: #### C BC #### [facility] [address] [address] [address] Karen Santos Eosinophils/100 WBC (Bld) 0.9 % Normal 0.9-7.0 [facility] Comment on above: Performed By: #### C BC #### [facility] [address] [address] [address] Karen Santos Erythrocyte distribution width (RBC) [Ratio] 12.6 % Normal 11.0-15.0 [facility] Comment on above: Performed By: #### C BC #### [facility] [address] [address] [address] Karen Santos Hematocrit (Bld) [Volume fraction] 39.2 % Critically low 42.0-54.0 [facility] Comment on above: Performed By: #### C BC #### [facility] [address] [address] [address] Karen Santos Hemoglobin (Bld) [Mass/Vol] 13.9 g/dL Critically low 14.0-18.0 [facility] Comment on above: Performed By: #### C BC #### [facility] [address] [address] [address] Karen Santos IG # 0.08 10e3/ul Critically high 0.00-0.03 [facility] Comment on above: Performed By: #### C BC #### [facility] [address] [address] [address] Karen Santos IG % 0.7 % Critically high 0.0-0.5 [facility] Comment on above: Performed By: #### C BC #### [facility] [address] [address] [address] Karen Santos LYMPH # 1.0 103/ul Critically low 1.2-3.8 [facility] Comment on above: Performed By: #### C BC #### [facility] [address] [address] [address] Karen Santos Lymphocytes/100 WBC (Bld) 8.5 % Critically low 20.5-60.0 [facility] Comment on above: Performed By: #### C BC #### [facility] [address] [place] [address] Dr. Karen Santos MANUAL DIFF REQ NO Normal [facility] Comment on above: Performed By: #### C BC #### [facility] [address] [address] [address] Karen Santos MCH (RBC) [Entitic mass] 36.1 pg Critically high 25.9-34.0 [facility] Comment on above: Performed By: #### C BC #### [facility] [address] [place] [address] Dr. Karen Santos MCHC (RBC) [Mass/Vol] 35.5 g/dL Critically high 29.9-35.2 [facility] Comment on above: Performed By: #### C BC #### [facility] [address] [place] [address] Dr. Karen Santos MCV (RBC) [Entitic vol] 101.8 fL Critically high 80.0-94.0 [facility] Comment on above: Performed By: #### C BC #### [facility] [address] [place] [address] Dr. Karen Santos MONO # 0.6 103/ul Normal 0.3-0.8 [facility] Comment on above: Performed By: #### C BC #### [facility] [address] [address] [address] Karen Santos Monocytes/100 WBC (Bld) 5.2 % Normal 1.7-12.0 [facility] Comment on above: Performed By: #### C BC #### [facility] [address] [address] [address] Karen Santos NEUT # 9.9 103/ul Critically high 1.4-6.5 [facility] Comment on above: Performed By: #### C BC #### [facility] [address] [address] [address] Karen Santos Neutrophils/100 WBC (Bld) 84.3 % Critically high 43.0-75.0 [facility] Comment on above: Performed By: #### C BC #### [facility] [address] [address] [address] Karen Santos Platelet mean volume (Bld) [Entitic vol] 8.9 fL Critically low 9.5-13.5 [facility] Comment on above: Performed By: #### C BC #### [facility] [address] [address] [address] Karen Santos PLT 303 103/ul Normal 150-450 [facility] Comment on above: Performed By: #### C BC #### [facility] [address] [address] [address] Karen Santos RBC 3.85 106/ul Critically low 4.70-6.10 [facility] Comment on above: Performed By: #### C BC #### [facility] [address] [address] [address] Karen Santos WBC 11.7 103/ul Critically high 4.0-11.0 [facility] Comment on above: Performed By: #### C BC #### [facility] [address] [address] [address] HEAD WO CONon [...] LUDMILA MACK Date: 2022-02-14 13:41 Normal [facility] PROF 14(COMP METB)on 022 Albumin [Mass/Vol] 4.0 g/dL Normal 3.4-5.0 [facility] Comment on above: Performed By: #### C BC #### [facility] [address] [place] [address] Dr. Karen Santos Albumin/Globulin [Mass ratio] 1.0 {ratio} Normal [facility] Comment on above: Performed By: #### C BC #### [facility] [address] [place] [address] Dr. Karen Santos ALP [Catalytic activity/Vol] 112 U/L Normal 46-116 [facility] Comment on above: Performed By: #### C BC #### [facility] [address] [place] [address] Dr. Karen Santos ALT [Catalytic activity/Vol] 17 U/L Normal 16-63 [facility] Comment on above: Performed By: #### C BC #### [facility] [address] [place] [address] Dr. Karen Santos Anion gap [Moles/Vol] 14.9 mmol/L Normal [facility] Comment on above: Performed By: #### C BC #### [facility] [address] [address] [address] Karen Santos AST [Catalytic activity/Vol] 16 U/L Normal 15-37 [facility] Comment on above: Performed By: #### C BC #### [facility] [address] [address] [address] Karen Santos Bilirubin [Mass/Vol] 0.8 mg/dL Normal 0.2-1.0 [facility] Comment on above: Performed By: #### C BC #### [facility] [address] [address] [address] Karen Santos Calcium [Mass/Vol] 8.9 mg/dL Normal 8.5-10.1 [facility] Comment on above: Performed By: #### C BC #### [facility] [address] [address] [address] Karen Santos Chloride [Moles/Vol] 94 mmol/L Critically low 98-107 [facility] Comment on above: Performed By: #### C BC #### [facility] [address] [address] [address] Karen Santos CO2 [Moles/Vol] 25.0 mmol/L Normal 21.0-32.[address] [facility] Comment on above: Performed By: #### C BC #### [facility] [address] [address] [address] Karen Santos Creatinine [Mass/Vol] 2.55 mg/dL Critically high 0.70-1.30 [facility] Comment on above: Performed By: #### C BC #### [facility] [address] [address] [address] Karen Santos EGFR-AF BHUTANESE 32 mL/min/1.73m2 Critically low >=60 [facility] Comment on above: Performed By: #### C BC #### [facility] [address] [address] [address] Karen Santos EGFR-NON AF BHUTANESE 27 mL/min/1.73m2 Critically low >=60 [facility] Comment on above: Performed By: #### C BC #### [facility] [address] [address] [address] Karen Santos Globulin (S) [Mass/Vol] 4.1 g/dL Normal [facility] Comment on above: Performed By: #### C BC #### [facility] [address] [address] [address] Karen Santos Glucose [Mass/Vol] 105 mg/dL Normal 74-106 [facility] Comment on above: Performed By: #### C BC #### [facility] [address] [place] [address] Dr. Karen Santos Potassium [Moles/Vol] 3.0 mmol/L Critically low 3.5-5.1 [facility] Comment on above: Performed By: #### C BC #### [facility] [address] [place] [address] Dr. Karen Santos Protein [Mass/Vol] 8.1 g/dL Normal 6.1-8.2 [facility] Comment on above: Performed By: #### C BC #### [facility] [address] [place] [address] Dr. Karen Santos Sodium [Moles/Vol] 132 mmol/L Critically low 136-145 [facility] Comment on above: Performed By: #### C BC #### [facility] [address] [place] [address] Dr. Karen Santos Urea nitrogen [Mass/Vol] 26.0 mg/dL Critically high 7.0-18.0 [facility] Comment on above: Performed By: #### C BC #### [facility] [address] [place] [address] Dr. Karen Santos Urea nitrogen/Creatinine [Mass ratio] 10.2 mg/mg Normal [facility] Comment on above: Performed By: #### C BC #### [facility] [address] [place] [address] Dr. Karen Santos PROTIMEon 02-14-2022 INR Coag (PPP) [Relative time] 1.04 {INR} Normal [facility] Comment on above: Performed By: #### P TT, PT ####[facility] [address] [id number] Karen Santos INR GUIDELINES SEE BELOW Normal [facility] Comment on above: Result Comment: PALAK RED INR: 2.0 - 3.0 CONDITIONS NOT LISTED BELOW 2.5 - 3.5 FOR PROSTHETIC HEART VALVE REPLACEMENT 2.5 - 3.5 RECURRENT THROMBOSIS Performed By: #### P TT, PT ####[facility] [address] [address]Dr. Karen Santos PT Coag (PPP) [Time] 11.2 s Normal 9.0-11.6 [facility] Comment on above: Performed By: #### P TT, PT ####[facility] [address] [place], [place] [address]Dr. Karen Santos PTTon 02-14-2022 aPTT Coag (Bld) [Time] 27.7 s Normal 22.3-36.2 [facility] Comment on above: Performed By: #### P TT, PT ####[facility] [address] [place], [place] [address]Dr. Karen Santos XR CHEST 1 Von 02-14-2022 XR [...] DYLLAN ABREU Date: 2022-02-14 13:23 Normal [facility] BNPon 02-13-2022 Natriuretic peptide B (Bld) [Mass/Vol] 1509.0 pg/mL Critically high <=900.0 [facility] Comment on above: Performed By: #### C MP, BNP, HSTROPN ####[facility] [address] [address]Dr. Karen Santos CBC AUTO DIFFon 02-13-2022 BASO # 0.1 103/ul Normal 0.0-0.1 [facility] Comment on above: Performed By: #### C BC #### [facility] [address] [address] [address] Karen Santos Basophils/100 WBC (Bld) 0.5 % Normal 0.2-2.0 [facility] Comment on above: Performed By: #### C BC #### [facility] [address] [address] [address] Karen Santos EO # 0.3 103/ul Normal 0.0-0.7 [facility] Comment on above: Performed By: #### C BC #### [facility] [address] [address] [address] Karen Santos Eosinophils/100 WBC (Bld) 2.4 % Normal 0.9-7.0 [facility] Comment on above: Performed By: #### C BC #### [facility] [address] [address] [address] Karen Santos Erythrocyte distribution width (RBC) [Ratio] 13.1 % Normal 11.0-15.0 [facility] Comment on above: Performed By: #### C BC #### [facility] [address] [address] [address] Karen Santos Hematocrit (Bld) [Volume fraction] 38.8 % Critically low 42.0-54.0 [facility] Comment on above: Performed By: #### C BC #### [facility] [address] [address] [address] Karen Santos Hemoglobin (Bld) [Mass/Vol] 13.2 g/dL Critically low 14.0-18.0 [facility] Comment on above: Performed By: #### C BC #### [facility] [address] [address] [address] Karen Santos IG # 0.06 10e3/ul Critically high 0.00-0.03 [facility] Comment on above: Performed By: #### C BC #### [facility] [address] [address] [address] Karen Santos IG % 0.6 % Critically high 0.0-0.5 [facility] Comment on above: Performed By: #### C BC #### [facility] [address] [address] [address] Karen Santos LYMPH # 1.3 103/ul Normal 1.2-3.8 [facility] Comment on above: Performed By: #### C BC #### [facility] [address] [place] [address] Dr. Karen Santos Lymphocytes/100 WBC (Bld) 11.6 % Critically low 20.5-60.0 [facility] Comment on above: Performed By: #### C BC #### [facility] [address] [place] [address] Dr. Karen Santos MANUAL DIFF REQ NO Normal [facility] Comment on above: Performed By: #### C BC #### [facility] [address] [place] [address] Dr. Karen Santos MCH (RBC) [Entitic mass] 35.9 pg Critically high 25.9-34.0 [facility] Comment on above: Performed By: #### C BC #### [facility] [address] [place] [address] Dr. Karen Santos MCHC (RBC) [Mass/Vol] 34.0 g/dL Normal 29.9-35.2 [facility] Comment on above: Performed By: #### C BC #### [facility] [address] [place] [address] Dr. Karen Santos MCV (RBC) [Entitic vol] 105.4 fL Critically high 80.0-94.0 [facility] Comment on above: Performed By: #### C BC #### [facility] [address] [place] [address] Dr. Karen Santos MONO # 0.7 103/ul Normal 0.3-0.8 [facility] Comment on above: Performed By: #### C BC #### [facility] [address] [place] [address] Dr. Karen Santos Monocytes/100 WBC (Bld) 6.1 % Normal 1.7-12.0 [facility] Comment on above: Performed By: #### C BC #### [facility] [address] [address] [address] Karen Santos NEUT # 8.5 103/ul Critically high 1.4-6.5 [facility] Comment on above: Performed By: #### C BC #### [facility] [address] [address] [address] Karen Santos Neutrophils/100 WBC (Bld) 78.8 % Critically high 43.0-75.0 [facility] Comment on above: Performed By: #### C BC #### [facility] [address] [address] [address] Karen Santos Platelet mean volume (Bld) [Entitic vol] 9.1 fL Critically low 9.5-13.5 [facility] Comment on above: Performed By: #### C BC #### [facility] [address] [address] [address] Karen Santos PLT 283 103/ul Normal 150-450 [facility] Comment on above: Performed By: #### C BC #### [facility] [address] [address] [address] Karen Santos RBC 3.68 106/ul Critically low 4.70-6.10 [facility] Comment on above: Performed By: #### C BC #### [facility] [address] [address] [address] Karen Santos WBC 10.8 103/ul Normal 4.0-11.0 [facility] Comment on above: Performed By: #### C BC #### [facility] [id number] Karen Santos ER URINE PROFILEon 2 Bilirubin Ql (U) Negative Normal NEGATIVE [facility] Comment on above: Performed By: #### E RUR ####[facility] [address] [address]Dr. Karen Santos Clarity (U) CLEAR Normal CLEAR [facility] Comment on above: Performed By: #### E RUR ####[facility] [address] [place], [place] [address]Dr. Karen Santos Color (U) LT. YELLOW Normal YELLOW [facility] Comment on above: Performed By: #### E RUR ####[facility] [address] [place], [place] [address]Dr. Virajacinda Santos ERUAHD A micrscopic examination will be performed if indicated. Normal [facility] Comment on above: Performed By: #### E RUR ####[facility] [address] [place], [place] [address]Dr. Karen Tom Glucose Ql (U) Negative Normal NEGATIVE [facility] Comment on above: Performed By: #### E RUR ####[facility] [address] [place], [place] [address]Dr. Karen Tom Hemoglobin Ql (U) Negative Normal NEGATIVE [facility] Comment on above: Performed By: #### E RUR ####[facility] [address] [place], [place] [address]Dr. Karen Santos Ketones Ql (U) Negative Normal NEGATIVE [facility] Comment on above: Performed By: #### E RUR ####[facility] [address] [place], [place] [address]Dr. Virajacinda Santos LEUKOCYTES Negative Normal NEGATIVE [facility] Comment on above: Performed By: #### E RUR ####[facility] [address] [place], [place] [address]Dr. Karen Santos Nitrite Ql (U) Negative Normal NEGATIVE [facility] Comment on above: Performed By: #### E RUR ####[facility] [address] [place], [place] [address]Dr. Karen Tom pH (U) 6.0 [pH] Normal 5-9 [facility] Comment on above: Performed By: #### E RUR ####[facility] W[address] [place], [place] [address]Dr. Karen Santos SPEC GRAVITY <=1.005 Abnormal 1.005-<=1.02 5 [facility] Comment on above: Performed By: #### E RUR ####[facility] [address] [place] [address]Dr. Karen Santos UA PROTEIN Negative Normal NEGATIVE/ TRACE [facility] Comment on above: Performed By: #### E RUR ####[facility] Aqipvundgq[address] [place], [place] [address]Dr. Karen Santos UR MICRO IND NOT INDICATED Normal [facility] Comment on above: Performed By: #### E RUR ####[facility] Aaziwmivcd[address] [place], [place] [address]Dr. Karen Santos Urobilinogen Qn (U) 0.2 {Itz'U}/dL Normal 0.2 - 1. 0 [facility] Comment on above: Performed By: #### E RUR ####[facility] Mhyobzrpyy[address] [place], [place] [address]Dr. Karen Santos MAGNESIUMon 02-13-2022 Magnesium [Mass/Vol] 2.1 mg/dL Normal 1.8-2.4 [facility] Comment on above: Performed By: #### M G, RENAL ####[facility] Xmaenhedwe[address] [place], [place] [address]Dr. Karen Santos PROF 14(COMP METB)on 022 Albumin [Mass/Vol] 3.8 g/dL Normal 3.4-5.0 [facility] Comment on above: Performed By: #### C MP, BNP, HSTROPN ####[facility] Szcsoxhw[address] [place], [place] [address]Dr. Karen Santos Performed By: #### M G, RENAL ####[facility] Avyjoyzchj[address] [place], [place] [address]Dr. Karen Santos Albumin/Globulin [Mass ratio] 0.9 {ratio} Normal [facility] Comment on above: Performed By: #### C MP, BNP, HSTROPN ####[facility] Zirh[address]kr[address] [place], [place] [address]Dr. Karen Santos ALP [Catalytic activity/Vol] 111 U/L Normal 46-116 [facility] Comment on above: Performed By: #### C MP, BNP, HSTROPN ####[facility] [address]ude[address] [place] [address]Dr. Karen Santos ALT [Catalytic activity/Vol] 15 U/L Critically low 16-63 [facility] Comment on above: Performed By: #### C MP, BNP, HSTROPN ####[facility] [address]nc[address] [place] [address]Dr. Karen Santos Anion gap [Moles/Vol] 14.5 mmol/L Normal [facility] Comment on above: Performed By: #### C MP, BNP, HSTROPN ####[facility] [address]turpsx[address] [place] [address]Dr. Karen Santos AST [Catalytic activity/Vol] 10 U/L Critically low 15-37 [facility] Comment on above: Performed By: #### C MP, BNP, HSTROPN ####[facility] Qahpytqnsq[address] [place], [place] [address]Dr. Karen Santos Bilirubin [Mass/Vol] 0.5 mg/dL Normal 0.2-1.0 [facility] Comment on above: Performed By: #### C MP, BNP, HSTROPN ####[facility] Xznpgzciwg[address] [place], [place] [address]Dr. Karen Santos Calcium [Mass/Vol] 8.8 mg/dL Normal 8.5-10.1 [facility] Comment on above: Performed By: #### C MP, BNP, HSTROPN ####[facility] Cpirlbpnpn[address] [place], [place] [address]Dr. Karen Santos Chloride [Moles/Vol] 97 mmol/L Critically low 98-107 [facility] Comment on above: Performed By: #### C MP, BNP, HSTROPN ####[facility] Hyffvtityr[address] [place], [place] [address]Dr. Virajacinda Santos Performed By: #### M G, RENAL ####[facility] Zheuwsfdut[address] [place], [place] [address]Dr. Karen Santos CO2 [Moles/Vol] 27.5 mmol/L Normal 21.0-32.[address] [facility] Comment on above: Performed By: #### C MP, BNP, HSTROPN ####[facility] [address]in[address] [place] [address]Dr. Karen Santos Creatinine [Mass/Vol] 2.59 mg/dL Critically high 0.70-1.30 [facility] Comment on above: Performed By: #### C MP, BNP, HSTROPN ####[facility] [address] [place] [address]Dr. Karen Santos EGFR-AF BHUTANESE 32 mL/min/1.73m2 Critically low >=60 [facility] Comment on above: Performed By: #### C MP, BNP, HSTROPN ####[facility] Ywgpkgll[address] [place], [place] [address]Dr. Karen Santos EGFR-NON AF BHUTANESE 26 mL/min/1.73m2 Critically low >=60 [facility] Comment on above: Performed By: #### C MP, BNP, HSTROPN ####[facility] Yjhswmjxhu[address] [place], [place] [address]Dr. Karen Santos Globulin (S) [Mass/Vol] 4.0 g/dL Normal [facility] Comment on above: Performed By: #### C MP, BNP, HSTROPN ####[facility] Phdpiqljbr[address] [place], [place] [address]Dr. Karen Santos Glucose [Mass/Vol] 100 mg/dL Normal 74-106 The [facility] Comment on above: Performed By: #### C MP, BNP, HSTROPN ####[facility] Hjtavdjnlu[address] [place], [place] [address]Dr. Karen Santos Potassium [Moles/Vol] 3.0 mmol/L Critically low 3.5-5.1 [facility] Comment on above: Performed By: #### C MP, BNP, HSTROPN ####[facility] Pbx[address]dxh[address] [place], [place] [address]Dr. Karen Santos Protein [Mass/Vol] 7.8 g/dL Normal 6.1-8.2 The [facility] Comment on above: Performed By: #### C MP, BNP, HSTROPN ####[facility] [address] [place] [id number]. Karen Santos Sodium [Moles/Vol] 135 mmol/L Critically low 136-145 [facility] Comment on above: Performed By: #### C MP, BNP, HSTROPN ####[facility] [address] [place] [id number]. Karen Santos Urea nitrogen [Mass/Vol] 27.0 mg/dL Critically high 7.0-18.0 [facility] Comment on above: Performed By: #### C MP, BNP, HSTROPN ####[facility] [address] [place] [address]Dr. Karen Santos Urea nitrogen/Creatinine [Mass ratio] 10.4 mg/mg Normal [facility] Comment on above: Performed By: #### C MP, BNP, HSTROPN ####[facility] [address] [place] [address]Dr. Karen Santos RENAL FUNCTION PANELon 02-13 Calcium [Mass/Vol] 9.1 mg/dL Normal 8.5-10.1 [facility] Comment on above: Performed By: #### Marcelo G, RENAL ####[facility] Cfcwreaw[address] [place], [place] [address]Dr. Karen Santos CO2 [Moles/Vol] 30.8 mmol/L Normal 21.0-32.[address] [facility] Comment on above: Performed By: #### M G, RENAL ####[facility] Rvkeyylswe[address] [place], [place] [address]Dr. Karen Santos Creatinine [Mass/Vol] 2.67 mg/dL Critically high 0.70-1.30 [facility] Comment on above: Performed By: #### M G, RENAL ####[facility] Ecigxfiufq[address] [place], [place] [address]Dr. Karen Santos EGFR-AF BHUTANESE 31 mL/min/1.73m2 Critically low >=60 [facility] Comment on above: Performed By: #### M G, RENAL ####[facility] Qary[address]ayui[address] [place], [place] [address]Dr. Karen Santos EGFR-NON AF BHUTANESE 25 mL/min/1.73m2 Critically low >=60 [facility] Comment on above: Performed By: #### M G, RENAL ####[facility] [address] [place] [address]Dr. Karen Santos Glucose [Mass/Vol] 119 mg/dL Critically high 74-106 T [facility] Comment on above: Performed By: #### M G, RENAL ####[facility] [address] [place] [address]Dr. Karen Santos Phosphate [Mass/Vol] 3.8 mg/dL Normal 2.6-4.7 [facility] Comment on above: Performed By: #### Marcelo Hwang, RENAL ####[facility] [address]cus[address]cp[address] [place] [address]Dr. Karen Santos Potassium [Moles/Vol] 3.8 mmol/L Normal 3.5-5.1 [facility] Comment on above: Performed By: #### Marcelo Hwang, RENAL ####[facility] [address] [place] [address]Dr. Karen Santos Sodium [Moles/Vol] 137 mmol/L Normal 136-145 [facility] Comment on above: Performed By: #### Marcelo Hwang, RENAL ####[facility] [address] [place] [address]Dr. Karen Santos Urea nitrogen [Mass/Vol] 25.0 mg/dL Critically high 7.0-18.0 [facility] Comment on above: Performed By: #### Marcelo Hwang, RENAL ####[facility] [address] [place] [address]Dr. Karen Santos TROPONIN, HIGH SENSITIVITYon 02-13-2022 HSTROP 20.8 pg/mL Normal 4.0-76.1 [facility] Comment on above: Result Comment: CUT- OFF POINTS HAVE BEEN ESTABLISHED BASED ON THE FOURTH UNIVERSAL DEFINITIONS OF MYOCARDIAL INFARCTION. THE UPPER REFERENCE LIMIT (URL) OF TROPONIN, DEFINED THE 99TH PERCENTILE OF cTnI DISTRIBUTION IN A REFERENCE POPULATION, HAS BEEN CONFIRMED THE DECISION THRESHOLD FOR [place] DIAGNOSIS. Performed By: #### C MP, BNP, HSTROPN ####[facility] [address] [place] [id number]. Karen Tom XR CHEST 1 Von 02-13-2022 XR CHEST [...] VIVIAN MCKEON Date: 2022-02-13 20:45 Normal [facility] PROF CHEM 8 (BAS METB)on Anion gap [Moles/Vol] 12.5 mmol/L Normal [facility] Comment on above: Performed By: #### B MP ####[facility] [address] [place] [address]Dr. Karen Santos Calcium [Mass/Vol] 8.7 mg/dL Normal 8.5-10.1 [facility] Comment on above: Performed By: #### B MP ####[facility] [address]ws[address] [place] [address]Dr. Karen Santos Chloride [Moles/Vol] 101 mmol/L Normal 98-107 [facility] Comment on above: Performed By: #### B MP ####[facility] [address]jebbk[address] [place] [address]Dr. Karen Santos CO2 [Moles/Vol] 28.8 mmol/L Normal 21.0-32.[address] [facility] Comment on above: Performed By: #### B MP ####[facility] [address] [place] [id number]. Karen Santos Creatinine [Mass/Vol] 2.31 mg/dL Critically high 0.70-1.30 [facility] Comment on above: Performed By: #### B MP ####[facility] [address] [place] [address]Dr. Karen Santos EGFR-AF BHUTANESE 36 mL/min/1.73m2 Critically low >=60 [facility] Comment on above: Performed By: #### B MP ####[facility] [address]hsp[address] [place] [address]Dr. Karen Santos EGFR-NON AF BHUTANESE 30 mL/min/1.73m2 Critically low >=60 [facility] Comment on above: Performed By: #### B MP ####[facility] Wnx[address]rx[address] [place] [address]Dr. Karen Santos Glucose [Mass/Vol] 122 mg/dL Critically high 74-106 T [facility] Comment on above: Performed By: #### B MP ####[facility] Ebpqx[address]quo[address] [place] [address]Dr. Karen Santos Potassium [Moles/Vol] 4.3 mmol/L Normal 3.5-5.1 [facility] Comment on above: Performed By: #### B MP ####[facility] N[address]qr[address] [place], [place] [address]Dr. Karen Santos Sodium [Moles/Vol] 138 mmol/L Normal 136-145 [facility] Comment on above: Performed By: #### B MP ####[facility] [address] [place] [address]DrEva Santos Urea nitrogen [Mass/Vol] 26.0 mg/dL Critically high 7.0-18.0 [facility] Comment on above: Performed By: #### B MP ####[facility] [address] [place] [address]DrEva Santos Urea nitrogen/Creatinine [Mass ratio] 11.3 mg/mg Normal [facility] Comment on above: Performed By: #### B MP ####[facility] R[address]bn[address] [place] [id number] Santos RENIN ACTIVITYon 01-10-2022 Renin Activity, Plasma 43.749 ng/mL/hr Critically high 0.1 67-5.380 [facility] Comment on above: Performed By: #### C BC #### [facility] [address] [place] [address] [address] Karen Santos MAGNESIUMon 12-30-2021 Magnesium [Mass/Vol] 2.2 mg/dL Normal 1.6-2.3 [facility] Comment on above: Performed By: #### C BC #### [facility] [address] [address] [address] Karen Santos RENAL FUNCTION PANELon 12-30 Albumin [Mass/Vol] 3.5 g/dL Normal 3.4-5.0 [facility] Comment on above: Performed By: #### C BC #### [facility] [address] [address] [address] Karen Santos Calcium [Mass/Vol] 8.1 mg/dL Critically low 8.5-10.1 [facility] Comment on above: Performed By: #### C BC #### [facility] [address] [place] [address] Dr. Karen Santos Chloride [Moles/Vol] 97 mmol/L Critically low 98-107 [facility] Comment on above: Performed By: #### C BC #### [facility] [address] [address] [address] Karen Santos CO2 [Moles/Vol] 22.8 mmol/L Normal 22.0-30.[address] [facility] Comment on above: Performed By: #### C BC #### [facility] [address] [place] [address] Dr. Karen Santos Creatinine [Mass/Vol] 6.56 mg/dL Critically high 0.66-1.25 [facility] Comment on above: Result Comment: TEST REPEATED CRITICAL VALUE VERIFIED Performed By: #### C BC #### [facility] [address] [place] [address] Dr. Karen Santos EGFR-AF BHUTANESE 11 mL/min/1.73m2 Critically low >=60 [facility] Comment on above: Performed By: #### C BC #### [facility] [address] [address] [address] Karen Santos EGFR-NON AF BHUTANESE 9 mL/min/1.73m2 Critically low >=60 [facility] Comment on above: Performed By: #### C BC #### [facility] [address] [address] [address] Karen Santos Glucose [Mass/Vol] 109 mg/dL Critically high 74-106 T [facility] Comment on above: Performed By: #### C BC #### [facility] [address] [place] [address] [address] Karen Santos Phosphate [Mass/Vol] 6.2 mg/dL Critically high 2.5-4.5 [facility] Comment on above: Result Comment: TEST REPEATED CRITICAL VALUE VERIFIED Performed By: #### C BC #### [facility] [address] [place] [address] [address] Karen Santos Potassium [Moles/Vol] 3.4 mmol/L Normal 3.4-5.0 [facility] Comment on above: Performed By: #### C BC #### [facility] [address] [place] [address] [address] Karen Santos Sodium [Moles/Vol] 133 mmol/L Critically low 137-145 [facility] Comment on above: Performed By: #### C BC #### [facility] [address] [address] [address] Karen Santos Urea nitrogen [Mass/Vol] 69.0 mg/dL Critically high 7.0-18.0 [facility] Comment on above: Performed By: #### C BC #### [facility] [address] [place] [address] [address] Karen Santos ALDOSTERONE LCMS, SERUMon Aldosterone 1.4 ng/dL Normal 0.0-30.0 [facility] Comment on above: Performed By: #### C BC #### [facility] [address] [address] [address] Karen Santos METANEPHRINES PLASMA FREEon 12-22-2021 Metanephrine, Pl 46.7 pg/mL Normal 0.0-88.[address] [facility] Comment on above: Performed By: #### M ETANPF ####[facility] [address] [place] [address]Dr. Karen Santos Normetanephrine, Pl 163.0 pg/mL Normal 0.0-244.0 [facility] Comment on above: Performed By: #### M ETANPF ####[facility] [address] [place] [address]Dr. Karen Santos RENAL FUNCTION PANELon 12-22 Albumin [Mass/Vol] 3.9 g/dL Normal 3.5-5.0 The [facility] Comment on above: Performed By: #### R ENAL ####[facility] [address] [place] [address]Dr. Karen Santos Calcium [Mass/Vol] 8.9 mg/dL Normal 8.4-10.2 The [facility] Comment on above: Performed By: #### R ENAL ####[facility] [address] [place], [place] [address]Dr. Karen Santos Chloride [Moles/Vol] 103 mmol/L Normal 98-107 [facility] Comment on above: Performed By: #### R ENAL ####[facility] [address] [place] [address]Dr. Karen Santos CO2 [Moles/Vol] 22.8 mmol/L Normal 22.0-30.0 [facility] Comment on above: Performed By: #### R ENAL ####[facility] [address] [place] [address]Dr. Karen Santos Creatinine [Mass/Vol] 4.68 mg/dL Critically high 0.66-1.25 [facility] Comment on above: Performed By: #### R ENAL ####[facility] [address]sh[address] [place] [address]Dr. Karen Santos EGFR-AF BHUTANESE 16 mL/min/1.73m2 Critically low >=60 [facility] Comment on above: Performed By: #### R ENAL ####[facility] [address] [place], [place] [address]Dr. Karen Santos EGFR-NON AF BHUTANESE 13 mL/min/1.73m2 Critically low >=60 [facility] Comment on above: Performed By: #### R ENAL ####[facility] [address] [place] [address]Dr. Karen Santos Glucose [Mass/Vol] 99 mg/dL Normal 74-106 [facility] Comment on above: Performed By: #### R ENAL ####[facility] [address] [place] [id number]. Karen Santos Phosphate [Mass/Vol] 4.7 mg/dL Critically high 2.5-4.5 [facility] Comment on above: Performed By: #### R ENAL ####[facility] [address] [place] [address]Dr. Karen Santos Potassium [Moles/Vol] 5.4 mmol/L Critically high 3.4-5.0 [facility] Comment on above: Performed By: #### R ENAL ####[facility] [address]pt[address]thk[address] [place], [place] [address]Dr. Karen Santos Sodium [Moles/Vol] 135 mmol/L Critically low 137-145 [facility] Comment on above: Performed By: #### R ENAL ####[facility] [address]uz[address]ya[address] [place] [address]DrEva Santos Urea nitrogen [Mass/Vol] 64.0 mg/dL Critically high 9.0-20.0 [facility] Comment on above: Performed By: #### R ENAL ####[facility] X[address]iftsuts[address] [place], [place] [address]Dr. Karen Santos RENAL FUNCTION PANELon 12-19 Albumin [Mass/Vol] 3.5 g/dL Normal 3.5-5.0 [facility] Comment on above: Performed By: #### C BC #### [facility] [address] [address] [address] Karen Santos Calcium [Mass/Vol] 8.5 mg/dL Normal 8.4-10.2 [facility] Comment on above: Performed By: #### C BC #### [facility] [address] [address] [address] Karen Santos Chloride [Moles/Vol] 107 mmol/L Normal 98-107 [facility] Comment on above: Performed By: #### C BC #### [facility] [address] [place] [address] [address] Karen Santos CO2 [Moles/Vol] 21.2 mmol/L Critically low 22.0-30.0 [facility] Comment on above: Performed By: #### C BC #### [facility] [address] [place] [address] [address] Karen Santos Creatinine [Mass/Vol] 4.93 mg/dL Critically high 0.66-1.25 [facility] Comment on above: Performed By: #### C BC #### [facility] [address] [place] [address] Dr. Karen Santos EGFR-AF BHUTANESE 15 mL/min/1.73m2 Critically low >=60 [facility] Comment on above: Performed By: #### C BC #### [facility] [address] [place] [address] Dr. Karen Santos EGFR-NON AF BHUTANESE 12 mL/min/1.73m2 Critically low >=60 [facility] Comment on above: Performed By: #### C BC #### [facility] [address] [place] [address] Dr. Karen Santos Glucose [Mass/Vol] 113 mg/dL Critically high 74-106 T [facility] Comment on above: Performed By: #### C BC #### [facility] [address] [place] [address] Dr. Karen Santos Phosphate [Mass/Vol] 5.0 mg/dL Critically high 2.5-4.5 [facility] Comment on above: Performed By: #### C BC #### [facility] [address] [address] [address] Karen Santos Potassium [Moles/Vol] 5.2 mmol/L Critically high 3.4-5.0 [facility] Comment on above: Performed By: #### C BC #### [facility] [address] [address] [address] Karen Santos Sodium [Moles/Vol] 138 mmol/L Normal 137-145 [facility] Comment on above: Performed By: #### C BC #### [facility] [address] [address] [address] Karen Santos Urea nitrogen [Mass/Vol] 60.0 mg/dL Critically high 9.0-20.0 [facility] Comment on above: Performed By: #### C BC #### [facility] [address] [address] [address] Karen Santos PROF CHEM 8 (BAS METB)on Anion gap [Moles/Vol] 13.7 mmol/L Normal [facility] Comment on above: Performed By: #### C BC #### [facility] [address] [place] [address] Dr. Karen aSntos Calcium [Mass/Vol] 8.8 mg/dL Normal 8.4-10.2 [facility] Comment on above: Performed By: #### C BC #### [facility] [address] [place] [address] Dr. Karen Santos Chloride [Moles/Vol] 102 mmol/L Normal 98-107 [facility] Comment on above: Performed By: #### C BC #### [facility] [address] [place] [address] Dr. Karen Santos CO2 [Moles/Vol] 23.6 mmol/L Normal 22.0-30.[address] [facility] Comment on above: Performed By: #### C BC #### [facility] [address] [place] [address] Dr. Karen Santos Creatinine [Mass/Vol] 4.15 mg/dL Critically high 0.66-1.25 [facility] Comment on above: Performed By: #### C BC #### [facility] [address] [place] [address] Dr. Karen Santos EGFR-AF BHUTANESE 18 mL/min/1.73m2 Critically low >=60 [facility] Comment on above: Performed By: #### C BC #### [facility] [address] [place] [address] Dr. Karen Santos EGFR-NON AF BHUTANESE 15 mL/min/1.73m2 Critically low >=60 [facility] Comment on above: Performed By: #### C BC #### [facility] [address] [address] [address] Karen Santos Glucose [Mass/Vol] 108 mg/dL Critically high 74-106 T [facility] Comment on above: Performed By: #### C BC #### [facility] [id number] Karen Santos Potassium [Moles/Vol] 5.3 mmol/L Critically high 3.4-5.0 [facility] Comment on above: Performed By: #### C BC #### [facility] [address] [address] [address] Karen Santos Sodium [Moles/Vol] 134 mmol/L Critically low 137-145 Th [facility] Comment on above: Performed By: #### C BC #### [facility] [address] [address] [address] Karen Santos Urea nitrogen [Mass/Vol] 49.0 mg/dL Critically high 9.0-20.0 [facility] Comment on above: Performed By: #### C BC #### [facility] [id number] Karen Santos Urea nitrogen/Creatinine [Mass ratio] 11.8 mg/mg Normal [facility] Comment on above: Performed By: #### C BC #### [facility] [id number] Karen Santos B-Type Natriuretic Peptideon 12-05-2021 Natriuretic peptide B (Bld) [Mass/Vol] 50.0 pg/mL 5-100 [facility] Other BNPon 12-05-2021 Natriuretic peptide B (Bld) [Mass/Vol] 720.0 pg/mL Normal <=900.0 [facility] Comment on above: Performed By: #### B HR MANAGER, CMP ####[facility] [address] [id number]. Karen Santos Comprehensive Metabolic Pane fletcher 12-05-2021 Albumin [Mass/Vol] 3.9 g/dL 3.2-5.5 [place] [facility] Other Albumin/Globulin [Mass ratio] 1.2 {ratio} [facility] [employer] Other ALP [Catalytic activity/Vol] 89 U/L 32-92 [facility] Other ALT [Catalytic activity/Vol] 10 U/L 10-60 [facility] Other AST [Catalytic activity/Vol] 10 U/L 10-42 [facility] Other Bilirubin [Mass/Vol] 0.7 mg/dL 0.3-1.2 [facility] Other Calcium [Mass/Vol] 9.1 mg/dL Normal 8.4-10.2 [facility] Other Comment on above: Performed By: #### B HR MANAGER, CMP ####[facility] [address] [place], [place] [address]Dr. Karen Santos Chloride [Moles/Vol] 101 mmol/L Normal 98-107 [facility] Other Comment on above: Performed By: #### B HR MANAGER, CMP ####[facility] [address] [address]Dr. Yilan Santos CO2 [Moles/Vol] 18.1 mmol/L 22.0-30.0 [facility] [employer] Other Creatinine [Mass/Vol] 5.16 mg/dL 0.64-1.27 [facility] Other Glucose [Mass/Vol] 89 mg/dL 70-100 [facility] Other Potassium [Moles/Vol] 5.3 mmol/L Critically high 3.4-5.0 [place] [facility] Other Comment on above: Performed By: #### B HR MANAGER, CMP ####[facility] [address] [address]Dr. Karen Santos Protein [Mass/Vol] 7.2 g/dL 6.1-7.9 [facility] Other Sodium [Moles/Vol] 131 mmol/L 136-146 [facility] Other Urea nitrogen [Mass/Vol] 49 mg/dL 9-23 [facility] Other Comprehensive Metabolic Panel 12 [facility] Other Comprehensive Metabolic Panel 14 [facility] Other Comprehensive Metabolic Panel 3.3 [facility] Other PHOSPHORUSon 12-05-2021 Phosphate [Mass/Vol] 5.2 mg/dL Critically high 2.5-4.5 [facility] Comment on above: Performed By: #### P HOS ####[facility] [address] [place], [place] [address]Dr. Karen Santos PROF 14(COMP METB)on 022 Albumin [Mass/Vol] 3.8 g/dL Normal 3.5-5.0 [facility] Comment on above: Performed By: #### B HR MANAGER, CMP ####[facility] [address] [place], [place] [address]Dr. Karen Santos Albumin/Globulin [Mass ratio] 1.0 {ratio} Normal [facility] Comment on above: Performed By: #### B HR MANAGER, CMP ####[facility] [address] [place], [place] [address]Dr. Karen Santos ALP [Catalytic activity/Vol] 109 U/L Normal 38-126 [facility] Comment on above: Performed By: #### B HR MANAGER, CMP ####[facility] [address] [place], [place] [address]Dr. Karen Santos ALT [Catalytic activity/Vol] 12 U/L Critically low 21-72 [facility] Comment on above: Performed By: #### B HR MANAGER, CMP ####[facility] [address] [place], [place] [address]Dr. Karen Santos Anion gap [Moles/Vol] 16.7 mmol/L Normal Th e [facility] Comment on above: Performed By: #### B HR MANAGER, CMP ####[facility] [address] [place], [place] [address]Dr. Karen Santos AST [Catalytic activity/Vol] 8 U/L Critically low 17-59 [facility] Comment on above: Performed By: #### B HR MANAGER, CMP ####[facility] [address] [place], [place] [address]Dr. Karen Santos Bilirubin [Mass/Vol] 0.4 mg/dL Normal 0.2-1.3 [facility] Comment on above: Performed By: #### B HR MANAGER, CMP ####[facility] [address] [place], [place] [address]Dr. Karen Santos CO2 [Moles/Vol] 21.6 mmol/L Critically low 22.0-30.0 [facility] Comment on above: Performed By: #### B HR MANAGER, CMP ####[facility] [address] [place], [place] [address]Dr. Karen Tom Creatinine [Mass/Vol] 5.29 mg/dL Critically high 0.66-1.25 [facility] Comment on above: Performed By: #### B HR MANAGER, CMP ####[facility] [address] [place], [place] [address]Dr. Karen Tom EGFR-AF BHUTANESE 14 mL/min/1.73m2 Critically low >=60 [facility] Comment on above: Performed By: #### B HR MANAGER, CMP ####[facility] [address] [place], [place] [address]Dr. Karen Tom EGFR-NON AF BHUTANESE 11 mL/min/1.73m2 Critically low >=60 [facility] Comment on above: Performed By: #### B HR MANAGER, CMP ####[facility] [address] [place], [place] [address]Dr. Karen Santos Globulin (S) [Mass/Vol] 3.8 g/dL Normal [facility] Comment on above: Performed By: #### B HR MANAGER, CMP ####[facility] [address] [id number]. Karen Santos Glucose [Mass/Vol] 111 mg/dL Critically high 74-106 T [facility] Comment on above: Performed By: #### B HR MANAGER, CMP ####[facility] [address] [id number]. Karen Santos Protein [Mass/Vol] 7.6 g/dL Normal 6.1-8.2 [facility] Comment on above: Performed By: #### B HR MANAGER, CMP ####[facility] [address] [id number]. Karen Santos Sodium [Moles/Vol] 134 mmol/L Critically low 137-145 Th [facility] Comment on above: Performed By: #### B HR MANAGER, CMP ####[facility] [address] [id number]. Kaern Santos Urea nitrogen [Mass/Vol] 51.0 mg/dL Critically high 9.0-20.0 [facility] Comment on above: Performed By: #### B HR MANAGER, CMP ####[facility] [address] [id number]. Karen Santos Urea nitrogen/Creatinine [Mass ratio] 9.6 mg/mg Normal [facility] Comment on above: Performed By: #### B HR MANAGER, CMP ####[facility] [address] [id number]. Karen Santos HEMOGRAM AND PLATELon 2021 Hematocrit (Bld) [Volume fraction] 36.4 % Critically low 42.0-54.0 [facility] Comment on above: Performed By: #### C BC #### [facility] [address] [address] [address] Karen Santos Hemoglobin (Bld) [Mass/Vol] 12.2 g/dL Critically low 14.0-18.0 [facility] Comment on above: Performed By: #### C BC #### [facility] [address] [address] [address] Karen Santos MCH (RBC) [Entitic mass] 34.8 pg Critically high 25.9-34.0 [facility] Comment on above: Performed By: #### C BC #### [facility] [address] [address] [address] Karen Santos MCHC (RBC) [Mass/Vol] 33.5 g/dL Normal 29.9-35.2 [facility] Comment on above: Performed By: #### C BC #### [facility] [address] [place] [address] Dr. Karen Santos MCV (RBC) [Entitic vol] 103.7 fL Critically high 80.0-94.0 [facility] Comment on above: Performed By: #### C BC #### [facility] [address] [place] [address] Dr. Karen Santos PLT 215 103/ul Normal 150-450 [facility] Comment on above: Performed By: #### C BC #### [facility] [address] [place] [address] Dr. Karen Santos RBC 3.51 106/ul Critically low 4.70-6.10 [facility] Comment on above: Performed By: #### C BC #### [facility] [address] [place] [address] Dr. Karen Santos WBC 9.3 103/ul Normal 4.0-11.0 [facility] Comment on above: Performed By: #### C BC #### [facility] [address] [place] [address] Dr. Karen Santos MAGNESIUMon 11-28-2021 Magnesium [Mass/Vol] 2.3 mg/dL Normal 1.6-2.3 [facility] Comment on above: Performed By: #### M G, RENAL #### [facility] [address] [place] [address] Dr. Karen Santos RENAL FUNCTION PANELon 11-28 Albumin [Mass/Vol] 3.5 g/dL Normal 3.5-5.0 [facility] Comment on above: Performed By: #### M G, RENAL #### [facility] [address] [place] [address] Dr. Karen Santos Calcium [Mass/Vol] 8.9 mg/dL Normal 8.4-10.2 [facility] Comment on above: Performed By: #### M G, RENAL #### [facility] [address] [address] [address] Karen Santos Chloride [Moles/Vol] 106 mmol/L Normal 98-107 [facility] Comment on above: Performed By: #### M G, RENAL #### [facility] [address] [address] [address] Karen Santos CO2 [Moles/Vol] 22.7 mmol/L Normal 22.0-30.0 [facility] Comment on above: Performed By: #### M Jaiden, RENAL #### [facility] [address] [place] [address] Dr. Karen Santos Creatinine [Mass/Vol] 3.00 mg/dL Critically high 0.66-1.25 [facility] Comment on above: Performed By: #### Marcelo Hwang, RENAL #### [facility] [address] [place] [address] Dr. Karen Santos EGFR-AF BHUTANESE 27 mL/min/1.73m2 Critically low >=60 [facility] Comment on above: Performed By: #### Marcelo Hwang, RENAL #### [facility] [address] [place] [address] Dr. Karen Santos EGFR-NON AF BHUTANESE 22 mL/min/1.73m2 Critically low >=60 [facility] Comment on above: Performed By: #### Marcelo Hwang, RENAL #### [facility] [address] [place] [address] Dr. Karen Santos Glucose [Mass/Vol] 87 mg/dL Normal 74-106 The [facility] Comment on above: Performed By: #### M G, RENAL #### [facility] [address] [address] [address] Karen Santos Phosphate [Mass/Vol] 3.5 mg/dL Normal 2.5-4.5 [facility] Comment on above: Performed By: #### Marcelo Hwang, RENAL #### [facility] [address] [place], [place] [id number] Dr. Karen Santos Potassium [Moles/Vol] 5.4 mmol/L Critically high 3.4-5.0 [facility] Comment on above: Performed By: #### M G, RENAL #### [facility] [address] [place] [address] Dr. Karen Santos Sodium [Moles/Vol] 136 mmol/L Critically low 137-145 Th [facility] Comment on above: Performed By: #### M G, RENAL #### [facility] [address] [place] [address] Dr. Karen Santos Urea nitrogen [Mass/Vol] 36.0 mg/dL Critically high 9.0-20.0 [facility] Comment on above: Performed By: #### M G, RENAL #### [facility] [address] [place] [address] Dr. Karen Santos US KIDNEYSon 10-29-2021 US [...] ADRIENNE MOLINA Date: 2021-10-29 09:39 Normal [facility] BNPon 09-13-2021 Natriuretic peptide B (Bld) [Mass/Vol] 316.0 pg/mL Normal <=900.0 [facility] Comment on above: Performed By: #### C BC #### [facility] [address] [place] [address] Dr. Karen Santos CBC AUTO DIFFon 09-13-2021 BASO # 0.1 103/ul Normal 0.0-0.1 [facility] Comment on above: Performed By: #### M G, RENAL #### [facility] [address] [place] [address] Dr. Karen Santos Basophils/100 WBC (Bld) 0.5 % Normal 0.2-2.0 [facility] Comment on above: Performed By: #### M G, RENAL #### [facility] [address] [place] [address] Dr. Karen Santos EO # 0.3 103/ul Normal 0.0-0.7 [facility] Comment on above: Performed By: #### M G, RENAL #### [facility] [address] [place] [address] Dr. Karen Santos Eosinophils/100 WBC (Bld) 2.9 % Normal 0.9-7.0 [facility] Comment on above: Performed By: #### M G, RENAL #### [facility] [address] [place] [address] Dr. Karen Santos Erythrocyte distribution width (RBC) [Ratio] 14.9 % Normal 11.0-15.0 [facility] Comment on above: Performed By: #### M G, RENAL #### [facility] [address] [place] [address] Dr. Karen Santos Hematocrit (Bld) [Volume fraction] 38.3 % Critically low 42.0-54.0 [facility] Comment on above: Performed By: #### M G, RENAL #### [facility] [address] [place] [address] Dr. Karen Santos Hemoglobin (Bld) [Mass/Vol] 12.9 g/dL Critically low 14.0-18.0 [facility] Comment on above: Performed By: #### M G, RENAL #### [facility] [address] [place] [address] Dr. Karen Santos IG # 0.07 10e3/ul Critically high 0.00-0.03 [facility] Comment on above: Performed By: #### M G, RENAL #### [facility] [address] [place] [address] Dr. Karen Santos IG % 0.6 % Critically high 0.0-0.5 [facility] Comment on above: Performed By: #### M G, RENAL #### [facility] [address] [place] [address] Dr. Karen Santos LYMPH # 2.4 103/ul Normal 1.2-3.8 [facility] Comment on above: Performed By: #### M G, RENAL #### [facility] [address] [place] [address] Dr. Karen Santos Lymphocytes/100 WBC (Bld) 21.3 % Normal 20.5-60.0 [facility] Comment on above: Performed By: #### M G, RENAL #### [facility] [address] [place] [address] Dr. Karen Santos MANUAL DIFF REQ NO Normal [facility] Comment on above: Performed By: #### M G, RENAL #### [facility] [address] [place] [address] Dr. Karen Santos MCH (RBC) [Entitic mass] 33.6 pg Normal 25.9-34.0 [facility] Comment on above: Performed By: #### M G, RENAL #### [facility] [address] [place] [address] Dr. Karen Santos MCHC (RBC) [Mass/Vol] 33.7 g/dL Normal 29.9-35.2 [facility] Comment on above: Performed By: #### M G, RENAL #### [facility] [address] [place] [address] Dr. Karen Santos MCV (RBC) [Entitic vol] 99.7 fL Critically high 80.0-94.0 [facility] Comment on above: Performed By: #### M G, RENAL #### [facility] [address] [place] [address] Dr. Karen Santos MONO # 0.8 103/ul Normal 0.3-0.8 [facility] Comment on above: Performed By: #### M G, RENAL #### [facility] [address] [place] [address] Dr. Karen Santos Monocytes/100 WBC (Bld) 7.2 % Normal 1.7-12.0 [facility] Comment on above: Performed By: #### M Jaiden, RENAL #### [facility] [address] [address] [address] Karen Santos NEUT # 7.7 103/ul Critically high 1.4-6.5 [facility] Comment on above: Performed By: #### M Jaiden, RENAL #### [facility] [address] [address] [address] Karen Santos Neutrophils/100 WBC (Bld) 67.5 % Normal 43.0-75.0 [facility] Comment on above: Performed By: #### Marcelo Hwang, RENAL #### [facility] [address] [place] [address] Dr. Karen Santos Platelet mean volume (Bld) [Entitic vol] 9.4 fL Critically low 9.5-13.5 [facility] Comment on above: Performed By: #### Marcelo Hwang, RENAL #### [facility] [address] [place] [address] Dr. Karen Santos PLT 330 103/ul Normal 150-450 [facility] Comment on above: Performed By: #### Marcelo Hwang, RENAL #### [facility] [address] [place] [address] Dr. Karen Santos RBC 3.84 106/ul Critically low 4.70-6.10 [facility] Comment on above: Performed By: #### Marcelo Hwang, RENAL #### [facility] [address] [place] [address] Dr. Karen Santos WBC 11.4 103/ul Critically high 4.0-11.0 [facility] Comment on above: Performed By: #### M G, RENAL #### [facility] [address] [place] [address] Dr. Karen Santos PROF 14(COMP METB)on 09-13- 021 Albumin [Mass/Vol] 3.7 g/dL Normal 3.5-5.0 [facility] Comment on above: Performed By: #### C BC #### [facility] [address] [place] [address] Dr. Karen Santos Albumin/Globulin [Mass ratio] 0.8 {ratio} Normal [facility] Comment on above: Performed By: #### C BC #### [facility] [address] [place] [address] Dr. Karen Santos ALP [Catalytic activity/Vol] 113 U/L Normal 38-126 [facility] Comment on above: Performed By: #### C BC #### [facility] [address] [place] [address] Dr. Karen Santos ALT [Catalytic activity/Vol] 20 U/L Critically low 21-72 [facility] Comment on above: Performed By: #### C BC #### [facility] [address] [place] [address] Dr. Karen Santos Anion gap [Moles/Vol] 14.1 mmol/L Normal [facility] Comment on above: Performed By: #### C BC #### [facility] [address] [place] [address] Dr. Karen Santos AST [Catalytic activity/Vol] 8 U/L Critically low 17-59 [facility] Comment on above: Performed By: #### C BC #### [facility] [address] [place] [address] Dr. Karen Santos Bilirubin [Mass/Vol] 0.3 mg/dL Normal 0.2-1.3 [facility] Comment on above: Performed By: #### C BC #### [facility] [address] [place] [address] Dr. Karen Santos Calcium [Mass/Vol] 9.3 mg/dL Normal 8.4-10.2 [facility] Comment on above: Performed By: #### C BC #### [facility] [address] [place] [address] Dr. Karen Santos Chloride [Moles/Vol] 103 mmol/L Normal 98-107 [facility] Comment on above: Performed By: #### C BC #### [facility] [address] [place] [address] Dr. Karen Santos CO2 [Moles/Vol] 23.7 mmol/L Normal 22.0-30.[address] [facility] Comment on above: Performed By: #### C BC #### [facility] [address] [address] [address] Karen Santos Creatinine [Mass/Vol] 2.16 mg/dL Critically high 0.66-1.25 [facility] Comment on above: Performed By: #### C BC #### [facility] [address] [address] [address] Karen Santos EGFR-AF BHUTANESE 39 mL/min/1.73m2 Critically low >=60 [facility] Comment on above: Performed By: #### C BC #### [facility] [address] [address] [address] Karen Santos EGFR-NON AF BHUTANESE 32 mL/min/1.73m2 Critically low >=60 [facility] Comment on above: Performed By: #### C BC #### [facility] [address] [address] [address] Karen Santos Globulin (S) [Mass/Vol] 4.5 g/dL Normal [facility] Comment on above: Performed By: #### C BC #### [facility] [address] [address] [address] Karen Santos Glucose [Mass/Vol] 101 mg/dL Normal 74-106 [facility] Comment on above: Performed By: #### C BC #### [facility] [address] [address] [address] Karen Santos Potassium [Moles/Vol] 3.8 mmol/L Normal 3.4-5.0 [facility] Comment on above: Performed By: #### C BC #### [facility] [address] [address] [address] Karen Santos Protein [Mass/Vol] 8.2 g/dL Normal 6.1-8.2 [facility] Comment on above: Performed By: #### C BC #### [facility] [address] [address] [address] Karen Santos Sodium [Moles/Vol] 137 mmol/L Normal 137-145 [facility] Comment on above: Performed By: #### C BC #### [facility] [address] [address] [address] Karen Santos Urea nitrogen [Mass/Vol] 18.0 mg/dL Normal 9.0-20.0 [facility] Comment on above: Performed By: #### C BC #### [facility] [address] [address] [address] Karen Santos Urea nitrogen/Creatinine [Mass ratio] 8.3 mg/mg Normal [facility] Comment on above: Performed By: #### C BC #### [facility] [address] [place] [address] Dr. Karen Santos TROPONIN, HIGH SENSITIVITYon 09-13-2021 HSTROP 12.1 pg/mL Normal 4.0-42.2 [facility] Comment on above: Result Comment: CUT- OFF POINTS HAVE BEEN ESTABLISHED BASED ON THE FOURTH UNIVERSAL DEFINITIONS OF MYOCARDIAL INFARCTION. THE UPPER REFERENCE LIMIT (URL) OF TROPONIN, DEFINED THE 99TH PERCENTILE OF cTnI DISTRIBUTION IN A REFERENCE POPULATION, HAS BEEN CONFIRMED THE DECISION THRESHOLD FOR [place] DIAGNOSIS. Performed By: #### C BC #### [facility] [address] [place] [address] Dr. Karen Santos XR CHEST 1 Von [...] by: SANDRA SINGH Date: 2021-09-13 21:26 Normal [facility] CBC AUTO DIFFon 09-10-2021 BASO # 0.1 103/ul Normal 0.0-0.1 [facility] Comment on above: Performed By: #### C BC #### [facility] [address] [place] [address] Dr. Karen Santos Basophils/100 WBC (Bld) 0.7 % Normal 0.2-2.0 [facility] Comment on above: Performed By: #### C BC #### [facility] [address] [place] [address] Dr. Karen Santos EO # 0.3 103/ul Normal 0.0-0.7 [facility] Comment on above: Performed By: #### C BC #### [facility] [address] [place] [address] Dr. Karen Santos Eosinophils/100 WBC (Bld) 2.3 % Normal 0.9-7.0 [facility] Comment on above: Performed By: #### C BC #### [facility] [address] [place] [address] Dr. Karen Santos Erythrocyte distribution width (RBC) [Ratio] 14.5 % Normal 11.0-15.0 [facility] Comment on above: Performed By: #### C BC #### [facility] [address] [place] [address] Dr. Karen Santos Hematocrit (Bld) [Volume fraction] 42.8 % Normal 42.0-54.0 [facility] Comment on above: Performed By: #### C BC #### [facility] [address] [place] [address] Dr. Karen Santos Hemoglobin (Bld) [Mass/Vol] 14.5 g/dL Normal 14.0-18.0 [facility] Comment on above: Performed By: #### C BC #### [facility] [address] [place] [address] Dr. Karen Santos IG # 0.06 10e3/ul Critically high 0.00-0.03 [facility] Comment on above: Performed By: #### C BC #### [facility] [address] [place] [address] Dr. Karen Santos IG % 0.6 % Critically high 0.0-0.5 [facility] Comment on above: Performed By: #### C BC #### [facility] [address] [place] [address] Dr. Karen Santos LYMPH # 1.8 103/ul Normal 1.2-3.8 [facility] Comment on above: Performed By: #### C BC #### [facility] [address] [place] [address] Dr. Karen Santos Lymphocytes/100 WBC (Bld) 16.5 % Critically low 20.5-60.0 [facility] Comment on above: Performed By: #### C BC #### [facility] [address] [place] [address] Dr. Karen Santos MANUAL DIFF REQ NO Normal [facility] Comment on above: Performed By: #### C BC #### [facility] [address] [place] [address] Dr. Karen Santos MCH (RBC) [Entitic mass] 33.5 pg Normal 25.9-34.0 [facility] Comment on above: Performed By: #### C BC #### [facility] [address] [place] [address] Dr. Karen Santos MCHC (RBC) [Mass/Vol] 33.9 g/dL Normal 29.9-35.2 [facility] Comment on above: Performed By: #### C BC #### [facility] [address] [place] [address] Dr. Karen Santos MCV (RBC) [Entitic vol] 98.8 fL Critically high 80.0-94.0 [facility] Comment on above: Performed By: #### C BC #### [facility] [address] [place] [address] Dr. Karen Santos MONO # 0.6 103/ul Normal 0.3-0.8 [facility] Comment on above: Performed By: #### C BC #### [facility] [address] [place] [address] Dr. Karen Santos Monocytes/100 WBC (Bld) 5.6 % Normal 1.7-12.0 [facility] Comment on above: Performed By: #### C BC #### [facility] [address] [place] [address] Dr. Karen Santos NEUT # 7.9 103/ul Critically high 1.4-6.5 [facility] Comment on above: Performed By: #### C BC #### [facility] [address] [address] [address] Karen Santos Neutrophils/100 WBC (Bld) 74.3 % Normal 43.0-75.0 [facility] Comment on above: Performed By: #### C BC #### [facility] [address] [address] [address] Karen Santos Platelet mean volume (Bld) [Entitic vol] 9.2 fL Critically low 9.5-13.5 [facility] Comment on above: Performed By: #### C BC #### [facility] [address] [place] [address] Dr. Karen Santos PLT 348 103/ul Normal 150-450 [facility] Comment on above: Performed By: #### C BC #### [facility] [address] [place] [address] Dr. Karen Santos RBC 4.33 106/ul Critically low 4.70-6.10 [facility] Comment on above: Performed By: #### C BC #### [facility] [address] [place] [address] Dr. Karen Santos WBC 10.7 103/ul Normal 4.0-11.0 [facility] Comment on above: Performed By: #### C BC #### [facility] [address] [place] [address] Dr. Karen Santos PROF 14(COMP METB)on 021 Albumin [Mass/Vol] 4.2 g/dL Normal 3.5-5.0 [facility] Comment on above: Performed By: #### C MP HSTROPN, TSH #### [facility] [address] [place] [address] Dr. Karen Santos Albumin/Globulin [Mass ratio] 0.8 {ratio} Normal [facility] Comment on above: Performed By: #### C MP HSTROPN, TSH #### [facility] [address] [place] [address] Dr. Karen Santos ALP [Catalytic activity/Vol] 124 U/L Normal 38-126 [facility] Comment on above: Performed By: #### C MICHAEL HSTROPN, TSH #### [facility] [address] [place] [address] Dr. Karen Santos ALT [Catalytic activity/Vol] 24 U/L Normal 21-72 [facility] Comment on above: Performed By: #### C MICHAEL HSTROPN, TSH #### [facility] [address] [place] [address] Dr. Karen Santos Anion gap [Moles/Vol] 13.9 mmol/L Normal [facility] Comment on above: Performed By: #### C MICHAEL HSTROPN, TSH #### [facility] [address] [place] [address] Dr. Karen Santos AST [Catalytic activity/Vol] 17 U/L Normal 17-59 [facility] Comment on above: Performed By: #### C MICHAEL HSTROPN, TSH #### [facility] [address] [place] [address] Dr. Karen Santos Bilirubin [Mass/Vol] 0.4 mg/dL Normal 0.2-1.3 [facility] Comment on above: Performed By: #### C MICHAEL HSTROPN, TSH #### [facility] [address] [place] [address] Dr. Karen Santos Calcium [Mass/Vol] 9.5 mg/dL Normal 8.4-10.2 [facility] Comment on above: Performed By: #### C MICHAEL HSTROPN, TSH #### [facility] [address] [place] [address] Dr. Karen Santos Chloride [Moles/Vol] 101 mmol/L Normal 98-107 [facility] Comment on above: Performed By: #### C MICHAEL HSTROPN, TSH #### [facility] [address] [place] [address] Dr. Karen Santos CO2 [Moles/Vol] 26.0 mmol/L Normal 22.0-30.0 [facility] Comment on above: Performed By: #### C MICHAEL HSTROPN, TSH #### [facility] [address] [place] [address] Dr. Karen Santos Creatinine [Mass/Vol] 2.35 mg/dL Critically high 0.66-1.25 [facility] Comment on above: Performed By: #### C MP, HSTROPN, TSH #### [facility] [address] [place] [address] Dr. Karen Santos EGFR-AF BHUTANESE 35 mL/min/1.73m2 Critically low >=60 [facility] Comment on above: Performed By: #### C MP, HSTROPN, TSH #### [facility] [address] [place] [address] Dr. Karen Santos EGFR-NON AF BHUTANESE 29 mL/min/1.73m2 Critically low >=60 [facility] Comment on above: Performed By: #### C MP, HSTROPN, TSH #### [facility] [address] [place] [address] Dr. Karen Santos Globulin (S) [Mass/Vol] 5.1 g/dL Normal [facility] Comment on above: Performed By: #### C MP, HSTROPN, TSH #### [facility] [address] [place] [address] Dr. Karen Santos Glucose [Mass/Vol] 105 mg/dL Normal 74-106 [facility] Comment on above: Performed By: #### C MP, HSTROPN, TSH #### [facility] [address] [place] [address] Dr. Karen Santos Potassium [Moles/Vol] 3.9 mmol/L Normal 3.4-5.0 [facility] Comment on above: Performed By: #### C MP, HSTROPN, TSH #### [facility] [address] [place] [address] Dr. Karen Santos Protein [Mass/Vol] 9.3 g/dL Critically high 6.1-8.2 [facility] Comment on above: Performed By: #### C MP, HSTROPN, TSH #### [facility] [address] [address] [address] Karen Santos Sodium [Moles/Vol] 137 mmol/L Normal 137-145 [facility] Comment on above: Performed By: #### C KELLEY RODRIGUEZ, TSH #### [facility] [address] [address] [address] Karen Santos Urea nitrogen [Mass/Vol] 17.0 mg/dL Normal 9.0-20.0 [facility] Comment on above: Performed By: #### C KELLEY RODRIGUEZ, TSH #### [facility] [address] [address] [address] Karen Santos Urea nitrogen/Creatinine [Mass ratio] 7.2 mg/mg Normal [facility] Comment on above: Performed By: #### C KELLEY RODRIGUEZ, TSH #### [facility] [address] [place] [address] Dr. Karen Santos PROTIMEon 09-10-2021 INR Coag (PPP) [Relative time] 0.95 {INR} Normal [facility] Comment on above: Performed By: #### P T, PTT ####[facility] [id number] [address]Dr. Karen Santos INR GUIDELINES SEE BELOW Normal [facility] Comment on above: Result Comment: PALAK RED INR: 2.0 - 3.0 CONDITIONS NOT LISTED BELOW 2.5 - 3.5 FOR PROSTHETIC HEART VALVE REPLACEMENT 2.5 - 3.5 RECURRENT THROMBOSIS Performed By: #### P T, PTT ####[facility] [id number] [address]Dr. Karen Santos PT Coag (PPP) [Time] 10.3 s Normal 9.0-11.6 [facility] Comment on above: Performed By: #### P T, PTT ####[facility] [address] [address]Dr. Karen Santos PTTon 09-10-2021 aPTT Coag (Bld) [Time] 25.4 s Normal 22.3-36.2 [facility] Comment on above: Performed By: #### P T, PTT ####[facility] [id number] [place], [place] [address]YfDr. Karen Santos TROPONIN, HIGH SENSITIVITYon 09-10-2021 HSTROP 10.9 pg/mL Normal 4.0-42.2 [facility] Comment on above: Result Comment: CUT- OFF POINTS HAVE BEEN ESTABLISHED BASED ON THE FOURTH UNIVERSAL DEFINITIONS OF MYOCARDIAL INFARCTION. THE UPPER REFERENCE LIMIT (URL) OF TROPONIN, DEFINED THE 99TH PERCENTILE OF cTnI DISTRIBUTION IN A REFERENCE POPULATION, HAS BEEN CONFIRMED THE DECISION THRESHOLD FOR [place] DIAGNOSIS. Performed By: #### C MP, HSTROPN, TSH #### [facility] [address] [address] [address] Karen Santos TSHon 09-10-2021 TSH 1.298 uIU/mL Normal 0.470-4.680 [facility] Comment on above: Performed By: #### C MP, HSTROPN, TSH #### [facility] [address] [address] [address] Karen Santos TSH RANGE SEE BELOW Normal [facility] Comment on above: Result Comment: <0.3 4 UIU/ml HYPERTHYROID 0.34-5.60 UIU/ml EUTHYROID >5.60 UIU/ml HYPOTHYROID Performed By: #### C MP, HSTROPN, TSH #### [facility] [address] [address] [address] Karen Santos XR CHEST 1 Von 09-10-2021 XR CHEST 1 V EXAMINATION: XR CHES T 1 V, 09/10/2021 4:04 PM EST HISTORY: Essential hypertension COMPARISON: None. TECHNIQUE: Chest x-ray: One view. FINDINGS: SUPPORT APPARATUS/POST-SURGICAL CHANGES: None. CARDIOMEDIASTINAL SILHOUETTE: Normal. AIRWAYS/LUNGS: Normal. PLEURAL SPACES: No pleural effusion or pneumothorax. BONES AND SOFT TISSUES: No acute abnormality. IMPRESSION: Normal chest radiograph. Electronically authenticated by: LUDMILA JOSEPH Date: 2021-09-10 17:42 Normal [facility] Operative Reporton Operative Report MR#: [id number] I [facility] Pt. Name: Leander Massey Room #: [facility] [id number] Discharge 07/23/2021 Date: Birthdate: 1970 OPERATIVE REPORT DATE OF SURGERY: 07/22/2021 SURGEON: Lul Huynh M.D. PREOPERATIVE DIAGNOSIS: Left carotid severe stenosis with history of transient ischemic attack. POSTOPERATIVE DIAGNOSIS: Left carotid severe stenosis with history of transient ischemic attack. PROCEDURE DONE: Carotid endarterectomy with patch angioplasty. ANESTHESIA: General anesthesia. COMPLICATIONS: No complication. 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 Normal [facility] BASIC METABOLIC PANELon 10-0 Calcium [Mass/Vol] 8.5 mg/dL Low 8.6-10.3 [facility] Comment on above: Order Comment: No: D o not add to previous draw Performed By: #### 4 1000, , [id number] #### [facility] [address] [place] [address], [place] Chloride [Moles/Vol] 112 mmol/L High 98-107 [facility] Comment on above: Order Comment: No: D o not add to previous draw Performed By: #### 4 1000, , 96601 #### [facility] [address] [place] [address], [place] CO2 [Moles/Vol] 17 mmol/L Low 21-31 [facility] Comment on above: Order Comment: No: D o not add to previous draw Performed By: #### 4 1000, , [id number] #### [facility] [address] [place] [address], [facility] Creatinine [Mass/Vol] 1.99 mg/dL High 0.70-1.30 [facility] Comment on above: Order Comment: No: D o not add to previous draw Performed By: #### 4 1000, , [id number] #### [facility] [address] [place] [address], [facility] eGFR- 43 ml/min/1.73sq m Abnormal >60 [facility] Comment on above: Order Comment: No: D o not add to previous draw Performed By: #### 4 1000, , 35556 #### [facility] [address] [place] [address], [facility] eGFR- non- 35 ml/min/1.73sq m Abnormal >60 [facility] Comment on above: Order Comment: No: D o not add to previous draw Performed By: #### 4 1000, , 27584 #### [facility] [address] [place] [address], [place] Glucose [Mass/Vol] 106 mg/dL High 70-100 [facility] Comment on above: Order Comment: No: D o not add to previous draw Performed By: #### 4 1000, 27328, 39441 #### [facility] [address] [place] [address], [place] Potassium [Moles/Vol] 4.7 mmol/L Normal 3.5-5.1 [facility] Comment on above: Order Comment: No: D o not add to previous draw Performed By: #### 4 1000, 26870, 98286 #### [facility] [address] [place] [address], [place] Sodium [Moles/Vol] 136 mmol/L Normal 136-145 [facility] Comment on above: Order Comment: No: D o not add to previous draw Performed By: #### 4 1000, 98023, 61213 #### [facility] [address] [place] [address], [facility] Urea nitrogen [Mass/Vol] 25 mg/dL Normal 7-25 [facility] Comment on above: Order Comment: No: D o not add to previous draw Performed By: #### 4 1000, , 54116 #### [facility] [address] [place] [id number], [facility] CBC COMPLETE BLOOD COUNTon Erythrocyte distribution width (RBC) [Ratio] 14.3 % Normal 11.5-15.0 [facility] Comment on above: Order Comment: No: D o not add to previous draw Performed By: #### 3 0739 #### [facility] [address] [place] [address], [facility] Hematocrit (Bld) [Volume fraction] 35.0 % Low 39.0-50.0 [facility] Comment on above: Order Comment: No: D o not add to previous draw Performed By: #### 3 0739 #### [facility] [address] [place] [address], [place] Hemoglobin (Bld) [Mass/Vol] 11.4 g/dL Low 13.0-17.0 [facility] Comment on above: Order Comment: No: D o not add to previous draw Performed By: #### 3 0739 #### [facility] [address] [place] [address], [facility] MCH (RBC) [Entitic mass] 31.1 pg Normal 27.0-33.0 [facility] Comment on above: Order Comment: No: D o not add to previous draw Performed By: #### 3 0739 #### [facility] [address] [facility] [address], [facility] MCHC (RBC) [Mass/Vol] 32.6 g/dL Normal 32.0-35.0 [facility] Comment on above: Order Comment: No: D o not add to previous draw Performed By: #### 3 0739 #### [facility] [address] [facility] [place] [address], [facility] MCV (RBC) [Entitic vol] 95.6 fL Normal 82.0-98.0 [facility] Comment on above: Order Comment: No: D o not add to previous draw Performed By: #### 3 0739 #### [facility] [address] Nucleated RBC/100 WBC (Bld) [Ratio] 0 % Normal 0-0 [facility] Comment on above: Order Comment: No: D o not add to previous draw Performed By: #### 3 0739 #### [facility] [address] [place] [address], [facility] PLAT CNT 212 10*3/uL Normal 150-400 [facility] Comment on above: Order Comment: No: D o not add to previous draw Performed By: #### 3 0739 #### [facility] [address] [place] [address], [facility] RBC (Bld) [#/Vol] 3.66 10*6/uL Low 4.20-5.70 [facility] Comment on above: Order Comment: No: D o not add to previous draw Performed By: #### 3 0739 #### [facility] [address] [place] [address], [facility] WBC (Bld) [#/Vol] 11.78 10*3/uL High 4.00-10.60 [facility] Comment on above: Order Comment: No: D o not add to previous draw Performed By: #### 3 0739 #### [facility] [address] [place] [address], [facility] MAGNESIUM BLOODon 07-23-2021 Magnesium [Mass/Vol] 1.8 mg/dL Low 1.9-2.7 [facility] Comment on above: Performed By: #### 4 1000, 73505, 76534 #### [facility] [address] [place] [address], [facility] PHOSPHORUS BLOODon Phosphate [Mass/Vol] 3.5 mg/dL Normal 2.5-5.0 [facility] Comment on above: Performed By: #### 4 1000, 52849, 65613 #### [facility] [address] *MRSA/MSSA DNA NASALon 07-22 *MRSA/MSSA DNA NASAL Clinical Report: (D ) Specimen/Source: NASAL SWAB/NARES Collected: 07/22/2021 07:45 Status: Final Last Updated: 07/22/2021 11:30 MSSA DNA (Final) Negative MRSA DNA (Final) Negative Normal [facility] Comment on above: Performed By: #### 3 0739 #### [facility] [address] [place] [address], [facility] ACTIVATED CLOTTING TIMEon ACTIVATED CLOTTING TIME 207 sec High 82-152 [facility] Comment on above: Performed By: #### 3 0739 #### [facility] [address] [place] [address], [facility] ACTIVATED CLOTTING TIME 243 sec High 82-152 [facility] Comment on above: Performed By: #### 3 0739 #### [facility] [address] [place] [address], [place] ACTIVATED CLOTTING TIME 98 sec Normal 82-152 [facility] Comment on above: Performed By: #### 3 0739 #### [facility] [address] [place] [address], [place] ACTIVATED CLOTTING TIME 189 sec High 82-152 [facility] Comment on above: Performed By: #### 3 0739 #### [facility] [address] [place] [address], [place] BASIC METABOLIC PANELon 10-0 -2020 Calcium [Mass/Vol] 8.8 mg/dL Normal 8.6-10.3 [facility] Comment on above: Order Comment: No: D o not add to previous draw Nurse draw Performed By: #### 4 1000, , 30504 #### [facility] [address] [place] [address], [place] Chloride [Moles/Vol] 111 mmol/L High 98-107 [facility] Comment on above: Order Comment: No: D o not add to previous draw Nurse draw Performed By: #### 4 1000, , 56581 #### [facility] [address] [place] [address], [place] CO2 [Moles/Vol] 18 mmol/L Low 21-31 [facility] Comment on above: Order Comment: No: D o not add to previous draw Nurse draw Performed By: #### 4 1000, , 13026 #### [facility] [address] [place] [address], [place] Creatinine [Mass/Vol] 2.23 mg/dL High 0.70-1.30 [facility] Comment on above: Order Comment: No: D o not add to previous draw Nurse draw Performed By: #### 4 1000, , 82306 #### [facility] [address] [place] [address], [facility] eGFR- 38 ml/min/1.73sq m Abnormal >60 [facility] Comment on above: Order Comment: No: D o not add to previous draw Nurse draw Performed By: #### 4 1000, 25642, 84882 #### [facility] [address] [place] [address], [facility] eGFR- non- 31 ml/min/1.73sq m Abnormal >60 [facility] Comment on above: Order Comment: No: D o not add to previous draw Nurse draw Performed By: #### 4 1000, , 86301 #### [facility] [address] [place] [address], [facility] Glucose [Mass/Vol] 102 mg/dL High 70-100 [facility] Comment on above: Order Comment: No: D o not add to previous draw Nurse draw Performed By: #### 4 1000, , 10207 #### [facility] [address] [place] [address], [place] Potassium [Moles/Vol] 4.8 mmol/L Normal 3.5-5.1 [facility] Comment on above: Order Comment: No: D o not add to previous draw Nurse draw Performed By: #### 4 1000, , 73817 #### [facility] [address] [place] [address], [place] Sodium [Moles/Vol] 135 mmol/L Low 136-145 [facility] Comment on above: Order Comment: No: D o not add to previous draw Nurse draw Performed By: #### 4 1000, , 83255 #### [facility] [address] [place] [address], [place] Urea nitrogen [Mass/Vol] 28 mg/dL High 7-25 [facility] Comment on above: Order Comment: No: D o not add to previous draw Nurse draw Performed By: #### 4 1000, , 97600 #### [facility] [address] [place] [address], [facility] CBC COMPLETE BLOOD COUNTon Erythrocyte distribution width (RBC) [Ratio] 14.5 % Normal 11.5-15.0 [facility] Comment on above: Order Comment: No: D o not add to previous drawNurse draw Performed By: #### 3 0739 #### [facility] [address] [place] [address], [facility] Hematocrit (Bld) [Volume fraction] 38.1 % Low 39.0-50.0 [facility] Comment on above: Order Comment: No: D o not add to previous drawNurse draw Performed By: #### 3 0739 #### [facility] [address] [place] [id number], [facility] Hemoglobin (Bld) [Mass/Vol] 12.9 g/dL Low 13.0-17.0 [facility] Comment on above: Order Comment: No: D o not add to previous drawNurse draw Performed By: #### 3 0739 #### [facility] [address] [place] [address], [facility] MCH (RBC) [Entitic mass] 31.2 pg Normal 27.0-33.0 [facility] Comment on above: Order Comment: No: D o not add to previous drawNurse draw Performed By: #### 3 0739 #### [facility] [address] [place] [address], [facility] MCHC (RBC) [Mass/Vol] 33.9 g/dL Normal 32.0-35.0 [facility] Comment on above: Order Comment: No: D o not add to previous drawNurse draw Performed By: #### 3 0739 #### [facility] [address] [place] [address], [facility] MCV (RBC) [Entitic vol] 92.3 fL Normal 82.0-98.0 [facility] Comment on above: Order Comment: No: D o not add to previous drawNurse draw Performed By: #### 3 0739 #### [facility] [address] [place] [address], [facility] Nucleated RBC/100 WBC (Bld) [Ratio] 0 % Normal 0-0 [facility] Comment on above: Order Comment: No: D o not add to previous drawNurse draw Performed By: #### 3 0739 #### [facility] [address] [place] [address], [facility] PLAT CNT 232 10*3/uL Normal 150-400 [facility] Comment on above: Order Comment: No: D o not add to previous drawNurse draw Performed By: #### 3 0739 #### [facility] [address] [place] [address], [facility] RBC (Bld) [#/Vol] 4.13 10*6/uL Low 4.20-5.70 [facility] Comment on above: Order Comment: No: D o not add to previous drawNurse draw Performed By: #### 3 0739 #### [facility] [address] [facility] [place] [address], [facility] WBC (Bld) [#/Vol] 17.03 10*3/uL High 4.00-10.60 [facility] Comment on above: Order Comment: No: D o not add to previous drawNurse draw Performed By: #### 3 0739 #### [facility] [address] [place] [id number], [facility] MAGNESIUM BLOODon 07-22-2021 Magnesium [Mass/Vol] 1.9 mg/dL Normal 1.9-2.7 [facility] Comment on above: Order Comment: No: D o not add to previous draw Nurse draw Performed By: #### 4 1000, [id number], [id number] #### [facility] [address] [place] [address], [facility] PHOSPHORUS BLOODon Phosphate [Mass/Vol] 2.8 mg/dL Normal 2.5-5.0 [facility] Comment on above: Order Comment: No: D o not add to previous draw Nurse draw Performed By: #### 4 1000, [id number], [id number] #### [facility] [address] [place] [address], [place] POC GLUCOSE LABon 07-22-2021 Glucose [Mass/Vol] 103 mg/dL High 70-100 [facility] Comment on above: Performed By: #### 3 0739 #### [facility] [address] [place] [address], [place] Glucose [Mass/Vol] 98 mg/dL Normal 70-100 [facility] Comment on above: Performed By: #### 3 0739 #### [facility] [address] [place] [address], [place] TYPE AND SCREENon 07-22-2021 ABO INTERPRETATION O Normal [facility] Comment on above: Performed By: #### 3 0739 #### [facility] [address] [place] [address], [place] RH INTERPRETATION Positive Normal [facility] Comment on above: Performed By: #### 3 0739 #### [facility] [address] [place] [address], [place] Office Visit (Vascular Surge ry)on 07-13-2021 Follow-up visit Diagnoses/Problems Assessed Acute stroke due to stenosis of left carotid artery (433.11) (I63.232) Patient Discussion/Summary By signing my name below, I, Keyonna Lenz, attest that this documentation has been prepared under the direction and in the presence of Dr. Pablo Serrano. All medical record entries made by the Mellisaibflakito were at my direction and personally dictated [...] Medication No Known Drug Allergies Recorded By: Junaita Zayas; 03/25/2019 1:47:28 PM Current Meds Medication [...] DAY Vitals Vital Signs Recorded: 13Jul2021 11:13AM Ecyypoukoef64.4 F Heart Rate60 Kyabkwmh564 Lzhfwxxdp96 Height5 ft 11 in Aqbkcx121 lb BMI Qscwmdhvaf24.68 kg/m2 BSA Calculated2.2 Tobacco Usea) Yes Patient encouraged to stop using tobacco productsYes Fall Screeninga) No falls within the last year O2 Txuubvspen11 Physical Exam Face symmetric EOMI Tongue midline, [...] Jul 13 2021 4:48PM EST (Author) Normal [employer] Tobacco Screening.on 021 Fall risk assessment a) No falls within the last year [facility] [email or web address] Work Phone: Tobacco use status [facility] a) Yes [employer] [employer] Work Phone: Tobacco Screening. Yes [facility] [email or web address] Work Phone: CBC With Platelet and Differ entialon 09-12-2017 Basophils Auto #/vol (Bld) 0.1 10*3/uL Normal 0.0-0.2 [facility] Basophils/100 WBC Auto (Bld) 0.5 % Normal [facility] Eosinophils 0.2 10*3/uL Normal 0.0-0.7 [facility] Eosinophils/100 leukocytes 1.3 % Normal [facility] Erythrocyte distribution width Auto Ratio (RBC) 13.0 % Normal 11.5-14.5 [facility] Erythrocytes (RBC) 5.29 10*6/uL Normal 4.70-6.10 [facility] Hematocrit (HCT) 49.9 % Normal 42.0-52.0 [facility] Hemoglobin mass conc (Bld) 16.5 g/dL Normal 14.0-18.0 [facility] Lymphocytes 3.4 10*3/uL Normal 1.0-4.8 [facility] Lymphocytes/100 leukocytes 28.7 % Normal [facility] MCH 31.1 pg Normal 27.0-31.3 [facility] MCHC mass conc (RBC) 33.0 % Normal 33.0-37.0 [facility] MCV 94.4 fL Normal 80.0-100.0 [facility] Monocytes 0.9 10*3/uL Critically high 0.2-0.8 [facility] Monocytes/100 leukocytes 7.3 % Normal [facility] Neutrophils 7.5 10*3/uL Critically high 1.4-6.5 [facility] Neutrophils/100 leukocytes 62.2 % Normal [facility] Platelets 326 10*3/uL Normal 130-400 [facility] WBC (Leukocytes) 12.0 10*3/uL Critically high 4.8-10.8 M [facility] Comprehensive Metabolic Pane fletcher 09-12-2017 Alanine aminotransferase (ALT) 21 U/L Normal 0-41 [facility] Albumin 4.5 g/dL Normal 3.9-4.9 [facility] Alkaline phosphatase (ALP) 82 U/L Normal 35-104 [facility] Anion gap 12 mmol/L Normal 7-13 [facility] Aspartate aminotransferase (AST) 14 U/L Normal 0-40 [facility] Bilirubin (total) 0.3 mg/dL Normal 0.0-1.2 [facility] Calcium 9.8 mg/dL Normal 8.6-10.2 [facility] Chloride 99 mmol/L Normal 98-107 [facility] CO2 26 mmol/L Normal 22-29 [facility] Creatinine 0.97 mg/dL Normal 0.70-1.20 [facility] eGFR (black) mL/min/{1.73_m2} Normal >60 [facility] Comment on above: Result Comment: >60 mL/min/1.73m2 EGFR, calc. for ages 18 and older using theMDRD formula (not corrected for weight), is valid for stablerenal function. eGFR (MDRD) mL/min/{1.73_m2} Normal >60 [facility] Comment on above: Result Comment: >60 mL/min/1.73m2 EGFR, calc. for ages 18 and older using theMDRD formula (not corrected for weight), is valid for stablerenal function. Globulin 3.0 g/dL Normal 2.3-3.5 [facility] Glucose mass conc 91 mg/dL Normal 74-109 [facility] Potassium molar conc 4.3 mmol/L Normal 3.5-5.1 [facility] Protein 7.5 g/dL Normal 6.4-8.1 [facility] Sodium 137 mmol/L Normal 132-144 [facility] Urea nitrogen 11 mg/dL Normal 6-20 [facility] TSH w/out Reflexon 7 Thyroid stimulating hormone (TSH) 8.830 uIU/mL Critically high 0.270-4.20 [facility] Vital Signs Date Time Vital Sign Value Performing Clinician Facility 02-05-2025 16:31-0400 Diastolic blood pressure 94 mm[Hg] PHYSICIAN NO [facility] 02-05-2025 16:31-0400 Heart rate 90 /min PHYSICIAN NO [facility] 02-05-2025 16:31-0400 Respiratory rate 16 /min PHYSICIAN NO [facility] 02-05-2025 16:31-0400 SaO2% (BldA) [Mass fraction] 97 % PHYSICIAN NO [facility] 02-05-2025 16:31-0400 Systolic blood pressure 162 mm[Hg] PHYSICIAN NO [facility] 02-05-2025 16:00-0400 Inhaled oxygen flow rate 1 L/min PHYSICIAN NO [facility] 02-05-2025 13:12-0400 Body height 180.34 cm PHYSICIAN NO [facility] 02-05-2025 13:12-0400 Body weight 90.71 kg PHYSICIAN BARTOLO YANG [facility] 02-03-2025 11:39-0400 Body temperature 98.01 [degF] Darby Sanches HR MANAGER Work Phone: [facility] 02-03-2025 11:39-0400 Diastolic blood pressure 50 mm[Hg] Darby Sanches HR MANAGER Work Phone: [facility] 02-03-2025 11:39-0400 Heart rate 140 /min Darby Sanches HR MANAGER Work Phone: [facility] 02-03-2025 11:39-0400 Systolic blood pressure 90 mm[Hg] Darby Sanches HR MANAGER Work Phone: [facility] 02-03-2025 11:34-0400 Body weight 87 kg Darby Sanches HR MANAGER Work Phone: [facility] 04-27-2024 11:00-0400 Diastolic blood pressure 97 mm[Hg] Maurice Willis MD Work Phone: [facility] 04-27-2024 11:00-0400 Heart rate 78 /min Maurice Willis MD Work Phone: [facility] 04-27-2024 11:00-0400 Respiratory rate 16 /min Maurice Willis MD Work Phone: [facility] 04-27-2024 11:00-0400 SaO2% (BldA) [Mass fraction] 98 % Maurice Willis MD Work Phone: [employer] 04-27-2024 11:00-0400 Systolic blood pressure 159 mm[Hg] Maurice Willis MD Work Phone: [facility] 04-27-2024 08:00-0400 Body temperature 98.01 [degF] Maurice Willis MD Work Phone: [facility] 04-26-2024 18:30-0400 Body mass index (BMI) [Ratio] 26.6 kg/m2 Maurice Willis MD Work Phone: [facility] 04-26-2024 18:30-0400 Body weight 86.5 kg Maurice Willis MD Work Phone: [facility] 04-26-2024 11:15-0400 Body height 180.3 cm Maurice Willis MD Work Phone: [facility] 01-09-2024 12:00-0400 Body temperature 98 [degF] [facility] 01-09-2024 12:00-0400 Diastolic blood pressure 79 mm[Hg] [facility] 01-09-2024 12:00-0400 Heart rate 72 /min [facility] 01-09-2024 12:00-0400 Respiratory rate 22 /min [facility] 01-09-2024 12:00-0400 SaO2% (BldA) [Mass fraction] 100 % [facility] 01-09-2024 12:00-0400 Systolic blood pressure 159 mm[Hg] [facility] 01-09-2024 10:00-0400 Inhaled oxygen flow rate 2 L/min [facility] 01-09-2024 05:31-0400 Body weight 91.6 kg [facility] 01-09-2024 05:19-0400 Inhaled oxygen concentration 30 % [facility] 01-08-2024 20:52-0400 Body height 180.34 cm [facility] 11-14-2023 14:00-0500 Body height 180.34 cm Live Nguyen Other [facility] 11-14-2023 14:00-0500 Body mass index (BMI) [Ratio] 27.89 kg/m2 Live Nguyen Other [facility] Other 11-14-2023 14:00-0500 Body temperature 98.4 [degF] Live Nguyen Other [facility] Other 11-14-2023 14:00-0500 Body weight 90.72 kg Live Nguyen Other [facility] Other 11-14-2023 14:00-0500 Body weight 90.71 kg [employer] P[employer] OPERATOR-C [facility] 11-14-2023 14:00-0500 Diastolic blood pressure 67 mm[Hg] Live Nguyen Other [facility] 11-14-2023 14:00-0500 Systolic blood pressure 123 mm[Hg] Live Nguyen Other [facility] 06-11-2023 12:22-0400 Body height 180.34 cm BLACKTOP PAVER OPERATOREast [facility] 06-11-2023 12:22-0400 Body weight 90.71 kg [facility] 06-11-2023 12:22-0400 Diastolic blood pressure 80 mm[Hg] [facility] 06-11-2023 12:22-0400 Heart rate 97 /min [facility] 06-11-2023 12:22-0400 Respiratory rate 16 /min [facility] 06-11-2023 12:22-0400 SaO2% (BldA) [Mass fraction] 96 % [facility] 06-11-2023 12:22-0400 Systolic blood pressure 148 mm[Hg] [facility] 05-22-2023 16:23-0400 Body temperature 98 [degF] [facility] 05-22-2023 16:23-0400 Diastolic blood pressure 79 mm[Hg] [facility] 05-22-2023 16:23-0400 Heart rate 92 /min [facility] 05-22-2023 16:23-0400 Respiratory rate 18 /min [facility] 05-22-2023 16:23-0400 SaO2% (BldA) [Mass fraction] 95 % [facility] 05-22-2023 16:23-0400 Systolic blood pressure 151 mm[Hg] [facility] 05-22-2023 04:00-0400 Inhaled oxygen flow rate 2 L/min [facility] 05-22-2023 02:04-0400 Body height 180.34 cm [facility] 05-22-2023 02:04-0400 Body weight 97.2 kg [facility] 05-15-2023 17:30-0400 Body height 180.34 cm Donya Mccann Other [facility] [employer] Other 05-15-2023 17:30-0400 Body mass index (BMI) [Ratio] 29.7 kg/m2 Donya Mccann Other [facility] Other 05-15-2023 17:30-0400 Body temperature 99.3 [degF] Donya Mccann Other [facility] Other 05-15-2023 17:30-0400 Body weight 96.62 kg Donya Mccann Other [facility] Other 05-15-2023 17:30-0400 Diastolic blood pressure 75 mm[Hg] Donya Mccann Other [facility] Other 05-15-2023 17:30-0400 Respiratory rate 18 /min Donya Siobhan Other [facility] Other 05-15-2023 17:30-0400 SaO2% (BldA) [Mass fraction] 99 % Donya Siobhan Other [facility] Other 05-15-2023 17:30-0400 Systolic blood pressure 155 mm[Hg] Donya Siobhan Other [facility] Other 11-30-2022 11:30-0500 Body height 180.34 cm Shantell Cummingsault Other [facility] Other 11-30-2022 11:30-0500 Body mass index (BMI) [Ratio] 29.98 kg/m2 Shantell Sea Other [facility] Other 11-30-2022 11:30-0500 Body temperature 99.1 [degF] Shantell Sea Other [facility] Other 11-30-2022 11:30-0500 Body weight 97.52 kg Shantell Sea Other [facility] Other 11-30-2022 11:30-0500 Diastolic blood pressure 68 mm[Hg] Shantell Sea Other [facility] Other 11-30-2022 11:30-0500 Respiratory rate 18 /min Shantell Sea Other [facility] Other 11-30-2022 11:30-0500 SaO2% (BldA) [Mass fraction] 95 % Shantell Osei Other [facility] Other 11-30-2022 11:30-0500 Systolic blood pressure 133 mm[Hg] Shantell Osei Other [facility] Other 09-27-2022 11:00-0500 Body height 180.34 cm Patrice Levine Other [facility] Other 09-27-2022 11:00-0500 Body mass index (BMI) [Ratio] 28.59 kg/m2 Patrice Levine Other [facility] Other 09-27-2022 11:00-0500 Body temperature 98.1 [degF] Patrice Levine Other [facility] Other 09-27-2022 11:00-0500 Body weight 92.99 kg Patrice Levine Other [facility] Other 09-27-2022 11:00-0500 Diastolic blood pressure 72 mm[Hg] Patrice Levine Other [facility] Other 09-27-2022 11:00-0500 SaO2% (BldA) [Mass fraction] 96 % Patrice Levine Other [facility] Other 09-27-2022 11:00-0500 Systolic blood pressure 142 mm[Hg] Patrice Levine Other [facility] Other 09-13-2022 10:00-0500 Body height 180.34 cm Raissa Oh Other [facility] Other 09-13-2022 10:00-0500 Body mass index (BMI) [Ratio] 28.59 kg/m2 Raissa Oh Other [facility] Other 09-13-2022 10:00-0500 Body temperature 97.6 [degF] Raissa Oh Other [facility] Other 09-13-2022 10:00-0500 Body weight 92.99 kg Raissa Oh Other [facility] Other 09-13-2022 10:00-0500 Diastolic blood pressure 68 mm[Hg] Raissa Oh Other [facility] Other 09-13-2022 10:00-0500 SaO2% (BldA) [Mass fraction] 94 % Raissa Oh Other [facility] Other 09-13-2022 10:00-0500 Systolic blood pressure 120 mm[Hg] Raissa Oh Other [facility] Other 08-24-2022 10:30-0500 Diastolic blood pressure 60 mm[Hg] [employer] OPERATOR-C Shantell Sea Work Phone: [facility] 08-24-2022 10:30-0500 Heart rate 67 /min [employer] OPERATOR-C Shantell Sea Work Phone: [facility] 08-24-2022 10:30-0500 Respiratory rate 16 /min [employer] OPERATOR-C Shantell Sea Work Phone: [facility] 08-24-2022 10:30-0500 SaO2% (BldA) [Mass fraction] 94 % [employer] OPERATOR-C Shantell Sea Work Phone: [facility] 08-24-2022 10:30-0500 Systolic blood pressure 101 mm[Hg] [employer] OPERATOR-C Shantell Osei Work Phone: [facility] 08-24-2022 10:15-0500 Inhaled oxygen flow rate 4 L/min [employer] OPERATOR-C Shantell Osei Work Phone: [facility] 08-24-2022 07:32-0500 Body height 180.34 cm [employer] OPERATOR-C Shantell Osei Work Phone: [facility] 08-24-2022 07:32-0500 Body mass index (BMI) [Ratio] 29.2 kg/m2 [employer] OPERATOR-C Shantell Osei Work Phone: [facility] 08-24-2022 07:32-0500 Body weight 95.25 kg [employer] OPERATOR-C Shantell Osei Work Phone: [facility] 08-24-2022 06:57-0500 Body temperature 98.3 [degF] [employer] OPERATOR-C Shantell Osei Work Phone: [facility] 08-01-2022 10:30-0400 Body height 180.34 cm Gerber Shotr Other [facility] Other 08-01-2022 10:30-0400 Body mass index (BMI) [Ratio] 28.59 kg/m2 Gerber Short Other [facility] Other 08-01-2022 10:30-0400 Body temperature 98.2 [degF] Gerber Short Other [facility] Other 08-01-2022 10:30-0400 Body weight 92.99 kg Gerber Short Other [facility] Other 08-01-2022 10:30-0400 Diastolic blood pressure 62 mm[Hg] Gerber Short Other [facility] Other 08-01-2022 10:30-0400 SaO2% (BldA) [Mass fraction] 97 % Gerber Short Other [facility] [employer] Other 08-01-2022 10:30-0400 Systolic blood pressure 122 mm[Hg] Gerber Short Other [facility] [employer] Other 07-11-2022 14:25-0400 Body height 180.34 cm [employer] OPERATOR-C Shantell Sea Work Phone: [facility] 07-11-2022 14:25-0400 Body mass index (BMI) [Ratio] 28.5 kg/m2 [employer] OPERATOR-C Shantell Sea Work Phone: [facility] 07-11-2022 14:25-0400 Body weight 92.98 kg [employer] OPERATOR-C Shantell Sea Work Phone: [facility] 07-11-2022 10:14-0400 Diastolic blood pressure 87 mm[Hg] [employer] P[employer] OPERATOR-C Shantell Sea Work Phone: [facility] 07-11-2022 10:14-0400 Heart rate 82 /min [employer] OPERATOR-C Shantell Sea Work Phone: [facility] 07-11-2022 10:14-0400 Respiratory rate 14 /min [employer] OPERATOR-C Shantell Sea Work Phone: [facility] 07-11-2022 10:14-0400 SaO2% (BldA) [Mass fraction] 91 % [employer] OPERATOR-C Shantell Sea Work Phone: [facility] 07-11-2022 10:14-0400 Systolic blood pressure 152 mm[Hg] [employer] P[employer] OPERATOR-C Shantell Sea Work Phone: [facility] 07-11-2022 08:08-0400 Inhaled oxygen flow rate 2 L/min [employer] OPERATOR-C Shantell Osei Work Phone: [facility] 07-11-2022 06:10-0400 Body height 180.34 cm [employer] P[employer] OPERATOR-C Shantell Osei Work Phone: [facility] 07-11-2022 06:10-0400 Body temperature 98.7 [degF] [employer] P[employer]ER OPERATOR-C Shantell Osei Work Phone: [facility] 07-11-2022 06:10-0400 Body weight 92.98 kg BL[employer] P[employer] OPERATOR-C Shantell Osei Work Phone: [facility] 06-29-2022 10:30-0400 Body height 180.34 cm Patrice Levine Other [facility] Other 06-29-2022 10:30-0400 Body mass index (BMI) [Ratio] 28.59 kg/m2 Patrice Levine Other [facility] Other 06-29-2022 10:30-0400 Body temperature 97 [degF] Patrice Levine Other [facility] Other 06-29-2022 10:30-0400 Body weight 92.99 kg Patrice Levine Other [facility] Other 06-29-2022 10:30-0400 Diastolic blood pressure 68 mm[Hg] Patrice Levine Other [facility] Other 06-29-2022 10:30-0400 SaO2% (BldA) [Mass fraction] 99 % Patrice Levine Other [facility] Other 06-29-2022 10:30-0400 Systolic blood pressure 118 mm[Hg] Patrice Levine Other [facility] Other 06-07-2022 15:50-0400 Body height 180.34 cm Monica Vaughan Other [facility] Other 06-07-2022 15:50-0400 Body mass index (BMI) [Ratio] 28.59 kg/m2 Monica Alexus Other [facility] Other 06-07-2022 15:50-0400 Body temperature 97.5 [degF] Monica Alexus Other [facility] Other 06-07-2022 15:50-0400 Body weight 92.99 kg Monica Alexus Other [facility] Other 06-07-2022 15:50-0400 Diastolic blood pressure 43 mm[Hg] Monica Alexus Other [facility] Other 06-07-2022 15:50-0400 Respiratory rate 18 /min Monica Alexus Other [facility] Other 06-07-2022 15:50-0400 SaO2% (BldA) [Mass fraction] 97 % Monica Alexus Other [facility] Other 06-07-2022 15:50-0400 Systolic blood pressure 90 mm[Hg] Monica Alexus Other [facility] Other 03-09-2022 11:00-0400 Body height 180.34 cm Patrice Levine Other [facility] Other 03-09-2022 11:00-0400 Body mass index (BMI) [Ratio] 29.56 kg/m2 Patrice Reyescasper Other [facility] Other 03-09-2022 11:00-0400 Body weight 96.16 kg Patrice Reyescasper Other [facility] Other 03-09-2022 11:00-0400 Diastolic blood pressure 76 mm[Hg] Patrice Reyescasper Other [facility] Other 03-09-2022 11:00-0400 Respiratory rate 18 /min Patrice Reyescasper Other [facility] Other 03-09-2022 11:00-0400 SaO2% (BldA) [Mass fraction] 95 % Patrice Reyescasper Other [facility] Other 03-09-2022 11:00-0400 Systolic blood pressure 138 mm[Hg] Patrice Reyescasper Other [facility] Other 02-23-2022 14:30-0400 Body height 180.34 cm Shantell Sea Other [facility] Other 02-23-2022 14:30-0400 Body mass index (BMI) [Ratio] 29.56 kg/m2 Shantell Osei Other [facility] Other 02-23-2022 14:30-0400 Body temperature 98.8 [degF] Shantell Osei Other [facility] Other 02-23-2022 14:30-0400 Body weight 96.16 kg Shantell Osei Other [facility] Other 02-23-2022 14:30-0400 Diastolic blood pressure 92 mm[Hg] Shantell Osei Other [facility] Other 02-23-2022 14:30-0400 Respiratory rate 18 /min Shantell Osei Other [facility] Other 02-23-2022 14:30-0400 SaO2% (BldA) [Mass fraction] 98 % Shantell Osei Other [facility] Other 02-23-2022 14:30-0400 Systolic blood pressure 164 mm[Hg] Shantell Osei Other [facility] Other 02-07-2022 17:40-0400 Body height 180.34 cm [employer] Other [facility] Other 02-07-2022 17:40-0400 Body mass index (BMI) [Ratio] 30.07 kg/m2 [employer] Other [facility] Other 02-07-2022 17:40-0400 Body temperature 97.6 [degF] [employer] Other [facility] Other 02-07-2022 17:40-0400 Body weight 97.8 kg [employer] Other [facility] Other 02-07-2022 17:40-0400 Diastolic blood pressure 91 mm[Hg] [employer] Other [facility] Other 04-26-2022 17:40-0400 Respiratory rate 18 /min Iván Govea Other [facility] Other 02-07-2022 17:40-0400 SaO2% (BldA) [Mass fraction] 98 % Iván Govea Other [facility] Other 02-07-2022 17:40-0400 Systolic blood pressure 158 mm[Hg] Iván Govea Other [facility] Other 01-04-2022 10:30-0400 Body height 180.34 cm Patrice Levine Other [facility] Other 01-04-2022 10:30-0400 Body mass index (BMI) [Ratio] 31.24 kg/m2 Patrice Levine Other [facility] Other 01-04-2022 10:30-0400 Body temperature 98.3 [degF] Patrice Levine Other [facility] Other 01-04-2022 10:30-0400 Body weight 101.61 kg Patrice Levine Other [facility] Other 01-04-2022 10:30-0400 Diastolic blood pressure 88 mm[Hg] Patrice Levine Other [facility] Other 01-04-2022 10:30-0400 SaO2% (BldA) [Mass fraction] 96 % Patrice Levine Other [facility] Other 01-04-2022 10:30-0400 Systolic blood pressure 198 mm[Hg] Patrice Levine Other [facility] Other 12-15-2021 16:00-0500 Body height 180.34 cm Junior Maria Esther Other [facility] Other 12-15-2021 16:00-0500 Body mass index (BMI) [Ratio] 31.24 kg/m2 Junior Maria Esther Other [facility] Other 12-15-2021 16:00-0500 Body weight 101.61 kg Junior Maria Esther Other [facility] Other 12-15-2021 16:00-0500 Diastolic blood pressure 80 mm[Hg] Junior Maria Esther Other [facility] Other 12-15-2021 16:00-0500 Respiratory rate 18 /min Junior Maria Esther Other [facility] Other 12-15-2021 16:00-0500 SaO2% (BldA) [Mass fraction] 97 % Junior Maria Esther Other [facility] Other 12-15-2021 16:00-0500 Systolic blood pressure 142 mm[Hg] Junior Maria Esther Other [facility] Other 09-15-2021 11:20-0500 Body height 180.34 cm Junior Maria Esther Other [facility] Other 09-15-2021 11:20-0500 Body mass index (BMI) [Ratio] 30.79 kg/m2 Junior Maria Esther Other [facility] Other 09-15-2021 11:20-0500 Body temperature 98 [degF] Junior Maria Esther Other [facility] Other 09-15-2021 11:20-0500 Body weight 100.15 kg Junior Maria Esther Other [facility] Other 09-15-2021 11:20-0500 Diastolic blood pressure 94 mm[Hg] Junior Maria Esther Other [facility] Other 09-15-2021 11:20-0500 Respiratory rate 18 /min Junior Maria Esther Other [facility] Other 09-15-2021 11:20-0500 SaO2% (BldA) [Mass fraction] 97 % Junior Maria Esther Other [facility] Other 09-15-2021 11:20-0500 Systolic blood pressure 200 mm[Hg] Junior Maria Esther Other [facility] Other 08-18-2021 11:00-0400 Body height 180.34 cm Junior Maria Esther Other [facility] Other 08-18-2021 11:00-0400 Body mass index (BMI) [Ratio] 30.51 kg/m2 Junior Maria Esther Other [facility] Other 08-18-2021 11:00-0400 Body temperature 97.4 [degF] Junior Maria Esther Other [facility] Other 08-18-2021 11:00-0400 Body weight 99.25 kg Junior Maria Esther Other [facility] Other 08-18-2021 11:00-0400 Diastolic blood pressure 80 mm[Hg] Junior Maria Esther Other [facility] Other 08-18-2021 11:00-0400 Respiratory rate 18 /min Junior Maria Esther Other [facility] Other 08-18-2021 11:00-0400 SaO2% (BldA) [Mass fraction] 97 % Junior Maria Esther Other [facility] Other 08-18-2021 11:00-0400 Systolic blood pressure 139 mm[Hg] Junior Maria Esther Other [facility] Other 07-28-2021 12:00-0400 Body height 180.34 cm Shantell Sea Other [facility] Other 07-28-2021 12:00-0400 Body mass index (BMI) [Ratio] 30.4 kg/m2 Shantell Sea Other [facility] Other 07-28-2021 12:00-0400 Body temperature 97.8 [degF] Shantell Sea Other [facility] Other 07-28-2021 12:00-0400 Body weight 98.88 kg Shantell Sea Other [facility] Other 07-28-2021 12:00-0400 Diastolic blood pressure 67 mm[Hg] Shantell Sea Other [facility] Other 07-28-2021 12:00-0400 Respiratory rate 18 /min Shantell Sea Other [facility] Other 07-28-2021 12:00-0400 SaO2% (BldA) [Mass fraction] 99 % Shantell Osei Other [facility] Other 07-28-2021 12:00-0400 Systolic blood pressure 133 mm[Hg] Shantell Osei Other [facility] Other 07-21-2021 15:20-0400 Body height 180.34 cm Junior Maria Esther Other [facility] Other 07-21-2021 15:20-0400 Body mass index (BMI) [Ratio] 30.99 kg/m2 Junior Maria Esther Other [facility] Other 07-21-2021 15:20-0400 Body temperature 97.3 [degF] Junior Maria Esther Other [facility] Other 07-21-2021 15:20-0400 Body weight 100.79 kg Junior Maria Esther Other [facility] Other 07-21-2021 15:20-0400 Diastolic blood pressure 82 mm[Hg] Junior Maria Esther Other [facility] Other 07-21-2021 15:20-0400 Respiratory rate 18 /min Junior Maria Esther Other [facility] Other 07-21-2021 15:20-0400 SaO2% (BldA) [Mass fraction] 97 % Junior Maria Esther Other [facility] Other 07-21-2021 15:20-0400 Systolic blood pressure 172 mm[Hg] Junior Maria Esther Other [facility] Other 07-13-2021 11:13-0400 Body height 180.34 cm Ace Marr Work Phone: PN-Iptfspndtd-Smobtb [address] Work Phone: 07-13-2021 11:13-0400 Body mass index (BMI) [Ratio] 30.68 kg/m2 Ace Marr Work Phone: ES-Zhvxreoowk-Asxyex [address] Work Phone: 07-13-2021 11:13-0400 Body surface area Derived from formula 2.2 m2 Ace Marr Work Phone: GG-Svrvzctccq-Pyharr [address] Work Phone: 07-13-2021 11:13-0400 Body temperature 97.4 [degF] Ace Marr Work Phone: FX-Ygiiywqgmg-Owoyio [address] Work Phone: 07-13-2021 11:13-0400 Body weight 99.79 kg Ace Marr Work Phone: RQ-Vhfqopzlma-Pwuawo [address] Work Phone: 07-13-2021 11:13-0400 Diastolic blood pressure 90 mm[Hg] Ace Marr Work Phone: CA-Surstehxgk-Trpduh [address] Work Phone: 07-13-2021 11:13-0400 Heart rate 60 /min Ace Marr Work Phone: LH-Jxkckhgfhh-Ghyxiq [address] Work Phone: 07-13-2021 11:13-0400 SaO2% (BldA) [Mass fraction] 97 % Ace Marr Work Phone: UC-Wtmrdnfyqx-Vepehc [address] Work Phone: 07-13-2021 11:13-0400 Systolic blood pressure 160 mm[Hg] Ace Marr Work Phone: EE-Ljzdwdvypp-Xftbox [address] Work Phone: Encounters Encounter Date Encounter Type Care Provider Facility Start: 03-04-2025 ambulatory Shelleyfrida Villagran Faci lity:[facility] Start: 02-16-2025 End: 02-16-2025 ambulatory Kely Villagran Facility:[facility] Start: 02-16-2025 End: 02-16-2025 ambulatory [facility] Start: 02-05-2025 End: 02-05-2025 Admission to same day surgery center PHYSICIAN NO [facility]-Interventional Radiology Work Phone: Start: 02-05-2025 End: 02-05-2025 ambulatory PHYSICIAN NO [facility] Work Phone: Start: 02-05-2025 End: 02-05-2025 Patient encounter procedure PHYSICIAN NO [facility]-Lab Main [place] Work Phone: Start: 02-05-2025 End: 02-05-2025 ambulatory PHYSICIAN NO [facility] Work Phone: Start: 02-03-2025 End: 02-03-2025 ambulatory DARBY SANCHES Not Available Start: 02-03-2025 End: 02-03-2025 Office outpatient new 20 minutes Darby Sanches HR MANAGER Work Phone: [facility] Comment on above: Abscess of back (Gia soraya Dx) Start: 01-16-2025 ambulatory BLACKTOP PAVER OPERATOR SHANTELL OSEI Facility:[facility] Start: 01-05-2025 Non-patient / Non-visit PHYSICIAN NO [facility] Work Phone: Start: 12-08-2024 Non-patient / Non-visit PHYSICIAN NO [facility] Work Phone: Start: 11-15-2024 End: 11-15-2024 ambulatory Shantell Osei BLACKTOP PAVER OPERATOR- Work Phone: [facility] Work Phone: Start: 11-15-2024 End: 11-15-2024 Patient encounter procedure Shantell Osie BLACKTOP PAVER OPERATOR-BC Work Phone: [facility]-Dialysis Work Phone: Start: 11-11-2024 End: 11-11-2024 ambulatory Shantell Osei BLACKTOP PAVER OPERATOR-BC Work Phone: [facility] Work Phone: Start: 11-11-2024 End: 11-11-2024 Patient encounter procedure Shantell Osei BLACKTOP PAVER OPERATOR-BC Work Phone: [facility]-Dialysis Work Phone: Start: 10-31-2024 End: 10-31-2024 ambulatory Shantell Osei BLACKTOP PAVER OPERATOR-BC Work Phone: [facility] Work Phone: Start: 10-31-2024 End: 10-31-2024 Patient encounter procedure Shantell Osei BLACKTOP PAVER OPERATOR-BC Work Phone: [facility]-Dialysis Work Phone: Start: 10-24-2024 End: 10-24-2024 ambulatory [facility] Start: 09-23-2024 Evaluation and management of inpatient [facility] Start: 09-22-2024 Evaluation and management of inpatient [facility] Start: 09-22-2024 ambulatory [facility] Start: 09-22-2024 End: 09-23-2024 Evaluation and management of inpatient [facility] Start: 09-14-2024 Non-patient / Non-visit Azeb Cummingsault BLACKTOP PAVER OPERATOR-BC Work Phone: [facility] Work Phone: Start: 09-07-2024 Non-patient / Non-visit Edkaren pippa Osei BLACKTOP PAVER OPERATOR-BC Work Phone: [facility] Work Phone: Start: 08-21-2024 End: 08-21-2024 Bamboo flowsheet Allison Serrano DPM Work Phone: [facility] Start: 08-21-2024 End: 08-21-2024 Bamboo flowsheet Allison Serrano DPM Work Phone: [facility] Start: 08-21-2024 End: 08-21-2024 Office outpatient new 30 minutes Allison Serrano DPM Work Phone: [facility] Comment on above: Psoriasis plantaris (CMS/HCC) (Primary Dx) Start: 08-21-2024 End: 08-21-2024 ambulatory ALLISON SERRANO Not Available Start: 08-08-2024 End: 08-08-2024 ambulatory [facility] Start: 08-07-2024 Non-patient / Non-visit Edkaren pippa Osei BLACKTOP PAVER OPERATOR-BC Work Phone: [facility] Work Phone: Start: 07-18-2024 ambulatory JONH SANABRIA [facility] Start: 07-14-2024 End: 07-14-2024 [facility] Start: 06-04-2024 End: 06-04-2024 ambulatory [facility] Start: 05-31-2024 End: 05-31-2024 Evaluation and management of inpatient [facility] Start: 05-30-2024 Evaluation and management of inpatient [facility] Start: 05-28-2024 Evaluation and management of inpatient [facility] Start: 05-27-2024 End: 05-31-2024 Evaluation and management of inpatient JORDON LEVINE [facility] Start: 04-26-2024 End: 04-27-2024 Evaluation and management of inpatient Maurice Willis MD Work Phone: [facility] Start: 03-20-2024 End: 03-20-2024 ambulatory [facility] Start: 03-12-2024 ambulatory [facility] Start: 03-12-2024 End: 03-12-2024 ambulatory CHRISTINAEFRAIN SANABRIA [facility] Start: 02-21-2024 End: 02-21-2024 ambulatory BLACKTOP PAVER OPERATOR-BC Shantell Osei Work Phone: [facility] Work Phone: Start: 02-21-2024 End: 02-21-2024 Patient encounter procedure BLACKTOP PAVER OPERATOR-BC Shantell Osei Work Phone: [facility]-Dialysis Work Phone: Start: 02-07-2024 End: 02-07-2024 ambulatory BLACKTOP PAVER OPERATOR-BC Shantell Osei Work Phone: [facility] Work Phone: Start: 02-07-2024 End: 02-07-2024 Patient encounter procedure BLACKTOP PAVER OPERATOR-BC Shantell Osie Work Phone: [facility]-Lab Main [place] Work Phone: Start: 01-09-2024 End: 01-09-2024 Non-patient / Non-visit BLACKTOP PAVER OPERATOR-C Shantell Osei [facility] Nephrology Work Phone: Start: 01-08-2024 End: 01-09-2024 Non-patient / Non-visit BLACKTOP PAVER OPERATOR-C Shantell Osei [facility] Work Phone: Start: 01-08-2024 End: 01-09-2024 Evaluation and management of inpatient BLACKTOP PAVER OPERATOR-C Shantell [facility] Work Phone: Start: 01-06-2024 Non-patient / Non-visit BLACKTOP PAVER OPERATOR-BC hSantell sOei Work Phone: [facility] Work Phone: Start: 12-11-2023 Non-patient / Non-visit BLACKTOP PAVER OPERATOR-C Shantell Osei [facility] Work Phone: Start: 12-03-2023 Chart abstracting Adrian lunahal DPM Work Phone: [facility] Start: 11-14-2023 End: 11-14-2023 ambulatory Live Nguyen Other [facility] Other Start: 11-14-2023 Office outpatient ne w 45 minutes Live Nguyen [facility] Start: 11-14-2023 End: 11-14-2023 Patient encounter procedure BLACKTOP PAVER OPERATOR-C Shantell [facility]- Start: 11-10-2023 End: 11-10-2023 ambulatory BLACKTOP PAVER OPERATOR-C [facility] Work Phone: Start: 11-10-2023 End: 11-10-2023 Patient encounter procedure BLACKTOP PAVER OPERATOR-C Shantell [facility]-Dialysis Work Phone: Start: 11-03-2023 End: 11-03-2023 Patient encounter procedure BLACKTOP PAVER OPERATOR-C Shantell [facility]-Dialysis Work Phone: Start: 10-11-2023 End: 10-11-2023 ambulatory BLACKTOP PAVER OPERATOR-C [facility] Work Phone: Start: 10-11-2023 End: 10-11-2023 Patient encounter procedure BLACKTOP PAVER OPERATOR-C [facility]-Dialysis Work Phone: Start: 06-11-2023 End: 06-11-2023 Departed Referred BLACKTOP PAVER OPERATOR-C [facility]-Interventional Radiology Work Phone: Start: 06-11-2023 End: 06-11-2023 Admission to same day surgery center BLACKTOP PAVER OPERATOR-C [facility]-Interventional Radiology Work Phone: Start: 06-11-2023 End: 06-11-2023 ambulatory BLACKTOP PAVER OPERATOR-C [facility] Work Phone: Start: 05-22-2023 End: 05-22-2023 Evaluation and management of inpatient BLACKTOP PAVER OPERATOR-C [facility]-3 [facility] Med Surg Work Phone: Start: 05-15-2023 End: 05-15-2023 ambulatory Donya Mccann Other [facility] Other Start: 05-15-2023 Office outpatient vi sit 15 minutes Donya Mccann [facility] Start: 05-15-2023 Telephone encounter Gerber Short [facility] Start: 01-08-2023 End: 01-08-2023 ambulatory Imad Asaad Other [facility] Other Start: 01-08-2023 Telephone encounter Imad Asaad [facility] Start: 12-11-2022 End: 12-11-2022 ambulatory Imad Asaad Other [facility] Other Start: 12-11-2022 Telephone encounter Imad Asaad [facility] Start: 11-30-2022 End: 11-30-2022 ambulatory Shantell Osei Other [facility] Other Start: 11-30-2022 Office outpatient vi sit 15 minutes Shantell Osei [facility] Start: 11-16-2022 End: 11-16-2022 ambulatory Shantell Osei Other [facility] Other Start: 11-16-2022 Telephone encounter Shantell mcgee [facility] Start: 09-27-2022 End: 09-27-2022 ambulatory Patrice Levine Other [facility] Other Start: 09-27-2022 Postop follow up vis it related to original px Patrice Levine [facility] Start: 09-19-2022 End: 09-19-2022 ambulatory Patrice Levine Other [facility] Other Start: 09-19-2022 Telephone encounter Patrice Whitfield [facility] Start: 09-13-2022 End: 09-13-2022 ambulatory Raissa Oh Other [facility] Other Start: 09-13-2022 Follow-up encounter Raissa Rahman [facility] Start: 08-24-2022 End: 08-24-2022 Admission to same day surgery center BLACKTOP PAVER OPERATOR-C Shantell Osei Work Phone: [facility]-Surgery Center Main [place] Start: 08-24-2022 End: 08-24-2022 ambulatory BLACKTOP PAVER OPERATOR-C Shantell Osei Work Phone: [facility] Work Phone: Start: 08-23-2022 End: 08-23-2022 ambulatory BLACKTOP PAVER OPERATOR-C Shantell Sea Work Phone: [facility] Work Phone: Start: 08-23-2022 End: 08-23-2022 Patient encounter procedure BLACKTOP PAVER OPERATOR-C Shantell Osei Work Phone: [facility]-Pre-Surgical Testing Start: 08-18-2022 End: 08-18-2022 ambulatory JUNIOR MARIA ESTHER Facility:[facility] Start: 08-07-2022 End: 08-08-[address] TIMMY MORTON Facility:[facility] Start: 08-04-2022 End: 08-04-2022 ambulatory IVÁN GOVEA Facility:[facility] Start: 08-01-2022 End: 08-01-2022 ambulatory Gerber Short Other [facility] Other Start: 08-01-2022 Encounter for other preprocedural examination Gerber Short [facility] Start: 08-01-2022 Office outpatient vi sit 25 minutes Gerber Short [facility] Start: 07-11-2022 End: 07-11-2022 Admission to same day surgery center BLACKTOP PAVER OPERATOR-C Shantell Osei Work Phone: [facility]-Surgery Center [facility] [place] Start: 07-11-2022 End: 07-11-2022 ambulatory BLACKTOP PAVER OPERATOR-C Shantell Osei Work Phone: [facility] Work Phone: Start: 07-10-2022 End: 07-10-2022 Patient encounter procedure BLACKTOP PAVER OPERATOR-C Shantell Osei Work Phone: [facility] Testing Start: 07-08-2022 ambulatory JUNIOR BEANR Facility:[facility] Start: 06-29-2022 End: 06-29-2022 ambulatory Patrice Levine Other [facility] Other Start: 06-29-2022 Encounter for other preprocedural examination Patrice Levine [facility] Start: 06-29-2022 Office outpatient vi sit 15 minutes Patrice Levine [facility] Start: 06-29-2022 Telephone encounter Patrice novak [facility] Start: 06-26-2022 End: 06-27-[address] TIMMY MORTON Facility:[facility] Start: 06-13-2022 End: 06-13-2022 ambulatory Shantell Osei Other [facility] Other Start: 06-13-2022 Telephone encounter Shantell Breaul t [facility] Start: 06-09-2022 End: 06-10-2022 ambulatory SHANTELL SEA Facility:[facility] Start: 06-07-2022 End: 06-07-2022 ambulatory Monica Vaughan Other [facility] Other Start: 06-07-2022 Office outpatient vi sit 15 minutes Monicamichelle Vaughan [facility] Start: 06-06-2022 End: 06-06-2022 ambulatory Shantell Sea Other [facility] Other Start: 06-06-2022 Telephone encounter Shantell Breaul t [facility] Start: 05-25-2022 End: 05-25-2022 ambulatory Shantell Sea Other [facility] Other Start: 05-25-2022 Telephone encounter Shantell Breaul t [facility] Start: 05-01-2022 End: 05-01-2022 ambulatory Shantell Sea Other [facility] Other Start: 05-01-2022 Telephone encounter Shantell Breaul t [facility] Start: 03-24-2022 End: 03-24-2022 ambulatory Shantell Sea Other [facility] Other Start: 03-24-2022 Telephone encounter Shantell Breaul t [facility] Start: 03-09-2022 End: 03-09-2022 ambulatory Patrice Levine Other [facility] Other Start: 03-09-2022 Encounter for other preprocedural examination Patrice Levine [facility] Start: 03-09-2022 Office outpatient vi sit 40 minutes Patrice Levine [facility] Start: 03-09-2022 Telephone encounter Patrice Langfaby novak [facility] Start: 03-03-2022 End: 03-03-2022 ambulatory Patrice Julianna Other [facility] Other Start: 03-03-2022 Telephone encounter Patrice novak [facility] Start: 02-28-2022 Telephone encounter Iván Govea [facility] Start: 02-28-2022 End: 02-28-2022 ambulatory SHANTELLBRENDA OSEI [facility] Other Start: 02-24-2022 End: 02-24-2022 ambulatory SHANTELL OSEI Facility:[facility] Start: 02-23-2022 End: 02-23-2022 ambulatory Junior Maria Esther Other [facility] Other Start: 02-23-2022 Office outpatient vi sit 15 minutes Shantell Osei [facility] Start: 02-23-2022 Telephone encounter Junior Maria Esther [facility] Start: 02-18-2022 End: 02-18-2022 ambulatory SHANTELL OSEI Facility:[facility] Start: 02-15-2022 End: 02-15-2022 ambulatory Shantell Osei Other [facility] Other Start: 02-15-2022 Telephone encounter Shantell mcgee [facility] Start: 02-14-2022 Telephone encounter Iván Govea [facility] Start: 02-14-2022 End: 02-14-2022 ambulatory SHANTELLBRENDA OSEI [facility] Other Start: 02-13-2022 End: 02-14-2022 ambulatory SHANTELL OSEI Facility:[facility] Start: 02-13-2022 End: 03-14-2022 ambulatory JUNIOR MARIA ESTHER Facility:[facility] Start: 02-07-2022 End: 02-07-2022 ambulatory Iván Govea Other [facility] Other Start: 02-07-2022 Office outpatient vi sit 25 minutes Iván Govea [facility] Start: 02-07-2022 Telephone encounter Iván Govea [facility] Start: 02-06-2022 End: 02-07-[address] TOBY VENEGAS Facility:[facility] Start: 01-18-2022 End: 01-18-2022 ambulatory Shantell Osei Other [facility] Other Start: 01-18-2022 Telephone encounter Shantell mcgee [facility] Start: 01-17-2022 End: 01-17-2022 ambulatory Junior Maria Estehr Other [facility] Other Start: 01-17-2022 Telephone encounter Junior Maria Esther [facility] Start: 01-10-2022 End: 01-10-2022 ambulatory Patrice Levine Other [facility] Other Start: 01-10-2022 Telephone encounter Patrice novak [facility] Start: 01-04-2022 End: 01-04-2022 ambulatory Patrice Levine Other [facility] Other Start: 01-04-2022 Encounter for other preprocedural examination Shantell Osei [facility] Start: 01-04-2022 Office outpatient vi sit 25 minutes Patrice Levine [facility] Start: 01-04-2022 Telephone encounter Shantell mcgee [facility] Start: 01-02-2022 End: 01-02-2022 ambulatory Patrice Levine Other [facility] Other Start: 01-02-2022 Telephone encounter Patrice novak [facility] Start: 12-30-2021 End: 12-31-2021 ambulatory JUNIOR MARIA ESTHER Facility:[facility] Start: 12-29-2021 End: 12-29-2021 ambulatory Shantellbrenda Osei Other [facility] Other Start: 12-29-2021 Telephone encounter Junior Maria Esther [facility] Start: 12-26-2021 End: 12-26-2021 ambulatory Junior Maria Esther Other [facility] Other Start: 12-26-2021 Telephone encounter Junior Maria Esther [facility] Start: 12-22-2021 End: 12-23-2021 ambulatory JUNIOR MARIA ESTHER Facility:[facility] Start: 12-19-2021 Telephone encounter Junior Maria Esther [facility] Start: 12-19-2021 End: 12-20-2021 ambulatory JUNIOR MARIA ESTHER [facility] Other Start: 12-15-2021 End: 12-15-2021 ambulatory Junior Maria Esther Other [facility] Other Start: 12-15-2021 Office outpatient vi sit 25 minutes Junior Maria Esther [facility] Start: 12-12-2021 End: 12-13-2021 ambulatory JUNIOR MARIA ESTHER Facility:[facility] Start: 12-05-2021 Telephone encounter Shantellbrenda Epperson t [facility] Start: 12-05-2021 End: 12-06-2021 ambulatory SHANTELL OSEI [facility] Other Start: 11-29-2021 End: 11-29-2021 ambulatory Junior Maria Esther Other [facility] Other Start: 11-29-2021 Telephone encounter Junior Maria Esther [facility] Start: 11-28-2021 End: 11-29-2021 ambulatory JUNIOR MARIA ESTHER [facility] Other Start: 11-28-2021 Telephone encounter Junior Maria Esther [facility] Start: 11-26-2021 End: 11-26-2021 ambulatory Shantell Osei Other [facility] Other Start: 11-26-2021 Telephone encounter Shantell mcgee [facility] Start: 11-25-2021 End: 11-25-2021 ambulatory JUNIOR MARIA ESTHER [facility] Other Start: 11-25-2021 Telephone encounter Junior Maria Esther [facility] Start: 11-02-2021 End: 11-02-2021 ambulatory Junior Maria Esther Other [facility] Other Start: 11-02-2021 Telephone encounter Junior Maria Esther [facility] Start: 10-29-2021 End: 10-30-2021 ambulatory KELY CHURCH Facility:[facility] Start: 09-15-2021 End: 09-15-2021 ambulatory Junior Maria Esther Other [facility] Other Start: 09-15-2021 Office outpatient vi sit 15 minutes Junior Maria Esther [facility] Start: 09-15-2021 Telephone encounter Shantell mcgee [facility] Start: 09-14-2021 End: 09-14-2021 ambulatory Junior Maria Esther Other [facility] Other Start: 09-14-2021 Telephone encounter Junior Maria Esther [facility] Start: 09-13-2021 End: 09-14-2021 ambulatory SHANTELLBRENDA OSEI [facility] Other Start: 09-13-2021 Telephone encounter Junior Maria Esther [facility] Start: 09-10-2021 End: 09-10-2021 ambulatory SHANTELLBRENDA OSEI Facility:[facility] Start: 08-18-2021 End: 08-18-2021 ambulatory Junior Maria Esther Other [facility] Other Start: 08-18-2021 Office outpatient vi sit 15 minutes Junior Maria Esther [facility] [place] Start: 2021 Telephone encounter Junior Maria [facility] Start: 08-08-2021 Telephone encounter Junior Maria Esther [facility] Start: 07-28-2021 Office outpatient vi sit 15 minutes Shantell Sea [facility] [place] Start: 07-25-2021 Other Ace mares Work Phone: [facility] 9600 Work Phone: Start: 07-22-2021 End: 07-23-2021 Evaluation and management of inpatient [facility] Facility:[facility] Start: 07-21-2021 AUDIT Ace mares Work Phone: [facility] Work Phone: Start: 07-21-2021 Office outpatient vi sit 25 minutes Junior Maria Esther [facility] Start: 07-13-2021 Office outpatient ne w 60 minutes Ace Marr [facility] Work Phone: Start: 07-13-2021 Patient encounter procedure Ace Marr Work Phone: [facility] 320 Work Phone: Start: 07-01-2021 AUDIT Ace mares Work Phone: [facility] 8346 Work Phone: Start: 02-15-2021 End: 02-15-2021 Patient encounter procedure Vivian Motta Work Phone: -Sleep Lab Start: 01-25-2021 End: 01-25-2021 Patient encounter procedure Vivian Motta -Sleep Lab Start: 03-17-2020 Patient encounter procedure Ace Marr [facility] Work Phone: Start: 02-18-2020 Patient encounter procedure Ace Marr [facility] Work Phone: Start: 02-09-2020 [facility] Start: 12-03-2019 Patient encounter procedure Ace Marr [facility] Work Phone: Start: 06-04-2019 [facility] Work Phone: Patient encounter status Ace Marr Work Phone: [facility] [address] Work Phone: Procedures Date Procedure Procedure Detail Performing Clinician Start: 02-16-2025 Follow-up visit KELY CHURCH Start: 02-05-2025 Angiography PHYSICIAN NO FAMILY Start: 11-11-2024 Bacteria identified in Blood by Culture PHYSICIAN NO FAMILY Start: 10-24-2024 Follow-up visit KELY CHURCH Start: 08-08-2024 Follow-up visit KELY CHURCH Start: 07-14-2024 Follow-up visit Follow-up RIANNAMINDY DOMINGUEZ Start: 06-04-2024 Follow-up visit KELY CHURCH Start: 04-27-2024 Basic metabolic pane l calcium total An Martins MD Work Phone: Start: 04-26-2024 Iaad ia hepatitis b surface antigen Chago Stewart MD Work Phone: Start: 04-26-2024 Basic metabolic pane l calcium total An Martins MD Work Phone: Start: 04-26-2024 RESPIRATORY CARE MICHELLE LUATION ONLY An Martins MD Work Phone: Start: 04-26-2024 Iadna s aureus methi cillin resist amp probe tq Pasha Barrera MD Work Phone: Start: 03-20-2024 Follow-up visit KELY CHURCH Start: 05-22-2023 Plain X-ray of left femur BLACKTOP PAVER OPERATOR-C Shantell Osei Start: 05-22-2023 Plain X-ray of left tibia and left fibula [employer]ACKTOP PAVER OPERATOR-C Shantell Osei Start: 08-24-2022 Arteriovenous fistulization BLACKTOP PAVER OPERATOR-C Shantell Osei Work Phone: Start: 07-11-2022 Arteriovenous fistulization BLACKTOP PAVER OPERATOR-C Shantell Osei Work Phone: Start: 07-22-2021 Antibody screen MUNIER NAZZAL Comment on above: Performed By: #### 3 [id number] #### [facility] [address] [facility] [place] [address], [facility] Start: 07-22-2021 DILATION OF INTRACRA NIAL ARTERY, [...] on above: right eye; SARS Antigen (LFIA) [facility]ACK[facility] P[facility] OPER[facility]C [facility] Osei Work Phone: Plan of Treatment Date Care Activity Detail Author Start: 10-26-2025 Diabetes screen Diabetes screen [facility] [employer] [facility] Start: 06-15-2025 Influenza vaccination Influenz a Vaccine (Season Ended) [facility] Start: 04-27-2025 GFR test (Diabetes, CKD 3-4, OR last GFR 15-59) GFR test (Diabetes, CKD 3-4, OR last GFR 15-59) [facility] Start: 02-05-2025 [facility] Start: 11-11-2024 Bacteria identified in Blood by Culture Blood Culture [facility] Start: 11-11-2024 End: 11-11-2024 [facility] Start: 10-02-2024 End: 10-02-2024 Patient encounter procedure 10/02/2024 2:15 PM EST Office Visit [facility] [address] [place] [address] Allison Serrano, DPM [address] [place] [address] [facility] Start: 08-21-2024 End: 08-21-2024 Patient encounter procedure 08/21/2024 1:00 PM EST Office Visit [facility] [address] [place] [id number] Allison Serrano, DPM [address] [place] [address] Arrived [facility] Comment on above: Arrived Start: 05-15-2024 Influenza vaccination Flu vaccine (# 1) [facility] Start: 01-09-2024 [facility] Start: 01-08-2024 Referral to [address]atial technologist [facility] Start: 01-08-2024 Hospital admission [facility] Start: 01-08-[address] [facility] Start: 01-08-2024 Performance of Urina ry Filtration, Intermittent, Less than 6 Hours Per Day Performance of Urinary Filtration, Intermittent, Less than [address] [facility] Start: 12-03-2023 End: 12-03-2023 Patient encounter procedure 12/03/2023 9:15 AM EST Office Visit [facility] [address] [place] [address] Adrian Stark, DPM [address] [place] [address] [facility] Start: 10-26-2023 Lipid panel Lipids [facility] Start: 06-11-2023 IR Fistulogram/TLA Stent (Left) IR Fistulogram/TLA Stent (Left) [facility] Start: 05-22-2023 [facility] Start: 05-22-2023 Referral to [address]atial technologist [facility] Start: 05-22-2023 Hospital admission [facility] Start: 08-24-2022 [facility] Start: 08-24-2022 [facility] Start: 07-11-2022 [facility] Start: 07-29-2021 [facility] Pablo Serrano, Status: Pen, Time: 10:30 AM [facility], Provider: Pablo Serrano, Status: Pen, Time: 10:30 AM [facility] Work Phone: Start: 07-12-2021 [facility], Provider: Pablo Serrano, Status: Pen, Time: 9:15 AM [facility], Provider: Pablo Serrano, Status: Pen, Time: 9:15 AM [facility] 0817 Work Phone: Start: 07-07-2021 [facility], Provider: Ace Marr, Status: Pen, Time: 11:30 AM [facility], Provider: Ace Marr, Status: Pen, Time: 11:30 AM [facility] 3120 Work Phone: Start: 2018 Shingles vaccine (1 of 2) Shingles vaccine (1 of 2) [facility] Start: 2013 Screening for malign ant neoplasm of colon [facility] Start: 05-21-2010 DTaP/Tdap/Td vaccine (1 - Tdap) DTaP/Tdap/Td vaccine (1 - Tdap) [facility] Start: 1988 Hepatitis B vaccine (1 of 3 - Risk Dialysis 4-dose series) Hepatitis B vaccine (1 of 3 - Risk Dialysis 4-dose series) [facility] Start: 1980 Depression Monitoring Depression Mon itoring [facility] Start: 1974 Pneumococcal 0-64 ye ars Vaccine (1 of 2 - PCV) Pneumococcal 0-64 years Vaccine (1 of 2 - PCV) [facility] Start: 02-12-1969 COVID-19 Vaccine (#1) COVID-19 Vacci ne (#1) [facility] Start: 1968 Medicare Annual Wellness (AWV) Medicare Annual Wellness (AWV) [facility] Start: 1968 Screening for malign ant neoplasm of colon [facility] Adult NIV/Positive Airway Pressure Adult NIV/Positive Airway Pressure Respiratory Care Routine Every 4hr until discontinued starting 04/27/2024 [facility] Work Phone: Comment on above: Every 4hr until disc ontinued starting 04/27/2024 Continuous pulse oximetry Pulse oximetry, continuous Respiratory Care Routine Every 4hr until discontinued starting 04/26/2024 [facility] Comment on above: Every 4hr until disc ontinued starting 04/26/2024 End: 04-26-2024 Hemodialysis Hemodialysis Dialysis Routine One Time for 1 Occurrences starting 04/26/2024 until 04/26/2024 [facility] Comment on above: One Time for 1 Occur rences starting 04/26/2024 until 04/26/2024 Nasal Cannula Oxygen Nasal Cannu la Oxygen Respiratory Care Routine Daily until discontinued starting 04/26/2024 [facility] Comment on above: Daily until disconti nued starting 04/26/2024 Oxygen therapy [[facility] Data Set] Initiate Oxygen Therapy Protocol Respiratory Care Routine As Needed until discontinued starting 04/26/2024 [facility] Comment on above: As Needed until disc ontinued starting 04/26/2024 Patient Education [facility] Work Phone: Patient referral [facility] Work Phone: Immunizations Immunization Date Immunization Notes Care Provider Munir london 04-03-2020 Kenalog -40 mg Junior Mora Other [facility] Other 04-03-2020 Toradol per 15 mg Luly baker Other [facility] Other 05-20-2010 Td, unspecified formulation Maurice Willis MD Work Phone: [facility] Payers Date Payer Category Payer Self-pay [id number] 2024 Medicare [id number] 2023 Medicare (Managed Care) BERNIE Robertson [facility] [id number] 2023 Medicare [id number] 2023 Medicaid [id number] [id number] 2022 Medicare [id number] 2022 Medicare (Traditional) [id number] 2.16.840.1.851761.19 1968 Unknown [id number] 2.16.840.1.853643.3.579.2. 647 1968 Unknown [id number] 2.16.840.1.250466.3.579.2. 593 1968 Unknown [id number] 2.16.840.1.880845.3.579.2. 593 1968 Unknown [id number] 2.16.840.1.182417.3.579.2. 593 1968 Unknown [id number] 2.16.840.1.849335.3.579.2. 593 1968 Unknown [id number] 2.16.840.1.077147.3.579.2. 593 1968 Unknown [id number] 2.16.840.1.113935.3.579.2. 593 1968 Unknown [id number] 2.16.840.1.582715.3.579.2. 593 1968 Unknown [id number] 2.16.840.1.431399.3.579.2 593 1968 Unknown [id number] 2.16.840.1.343372.3.579.2 59 1968 Unknown [id number] 2.16.840.1.330788.3.579.2 59 1968 Unknown [id number] 2.16.840.1.271418.3.579.2 593 1968 Unknown [id number] 2.16.840.1.587256.3.579.2 593 1968 Unknown [id number] 2.16.840.1.370590.3.579.2. 593 1968 Unknown [id number] 2.16.840.1.711667.3.579.2. 593 1968 Unknown [id number] 2.16.840.1.066050.3.579.2. 593 1968 Unknown [id number] 2.16.840.1.666471.3.579.2. 593 1968 Unknown [id number] 2.16.840.1.076210.3.579.2. 593 1968 Unknown [id number] 2.16.840.1.113337.3.579.2. 593 1968 Unknown [id number] 2.16.840.1.211556.3.579.2. 593 1968 Unknown [id number] 2.16.840.1.307771.3.579.2. 593 1968 Unknown [id number] 2.16.840.1.171619.3.579.2. 593 1968 Unknown [id number] 2.16.840.1.053278.3.579.2. 593 1968 Unknown [id number] 2.16.840.1.871450.3.579.2. 593 1968 Unknown [id number] 2.16.840.1.955839.3.579.2. 593 1968 Unknown [id number] 2.16.840.1.860397.3.579.2. 1259 1968 Unknown [id number] 2.16.840.1.696629.3.579.2. 1259 1968 Unknown [id number] 2.16.840.1.473505.3.579.2. 727 1968 Unknown [id number] 2.16.840.1.891491.3.579.2. 727 1959 Unknown [id number] Unknown Unknown [id number] 2.16.840.1.598215.3.579.2. 531 Unknown [id number] 2.16.840.1.735690.3.579.2. 531 Unknown [id number] 2.16.840.1.185710.3.579.2. 531 Unknown [id number] 2.16.840.1.682682.3.579.2. 531 Unknown [id number] 2.16.840.1.123889.3.579.2. 531 Social History Date Type Detail Facility Start: 1970 Sex Assigned At Male F [facility] Start: 04-26-2024 End: 08-21-2024 Current every day smoker Current every day smoker [facility] Comment on above: 1 1/2 packs/daily; Start: 04-26-2024 End: 08-21-2024 Sex Assigned At [facility] Start: 07-11-2022 End: 02-05-2025 Tobacco smoking status NHIS Smoker (finding) [facility] Tobacco smoking stat us [facility] Tobacco smoking consumption unknown [facility] Start: 1970 Sex Assigned At Not on file [facility] Start: 08-02-2016 End: 08-21-2024 Tobacco smoking status MOIS Smokes tobacco daily [facility] History of tobacco use Cigarette Smoker [facility] Start: 11-01-2024 End: 02-06-2025 Sex Male (finding) [facility] Start: 08-02-2016 Tobacco use and exposure Smoke less tobacco non-user [facility] Start: 04-26-2024 Alcohol intake Current non-dr area captain of alcohol (finding) [facility] Has the electric, [employer] s, oil, or water company threatened to shut off services in your home in past 12Mo No [facility] (I/We) worried carlos er (my/our) food would run out before (I/we) got money to buy more. Never true [facility] In the past 12 month s, has lack of transportation kept you from medical appointments or from getting medications? No [facility] NEGATED: Highlighted row - - [facility] Work Phone: Medical Equipment Procedure Code Equipment Code Equipment Origin al Text Equipment Identifier Dates Insertion, catheter, dialysis, tunneled, with imaging guidance Double-lumen haemodialysis catheter, implantable +[id number] FDA Start: 12-30-2021 Creation or revision of arteriovenous fistula Synthetic vascular graft [id number] FDA Start: 08-24-2022 Goals Date Patient Goal Desired Activity /State Functional Status Date Assessment Result Facility 01-09-2024 Functional status Patient at [facility] Work Phone: 05-22-2023 Functional status Patient at [facility] Work Phone: NEGATED: Highlighted row Functional performance Functional status health issues are not documented Disease [facility] Work Phone: Mental Status Date Assessment Result Facility 01-09-2024 Cognitive function Cognitive Sta tus Patient at [facility] Work Phone: 05-22-2023 Cognitive function Cognitive Sta tus Patient at [facility] Work Phone: NEGATED: Highlighted row Cognitive function [Interpretation] Cognitive status health issues are not documented Disease [facility] Work Phone: Clinical Notes 06-15-2021 to 02-16-2025 Draby Sanches NP - 02/03/2025 11:25 AM EDTCdeepthi Serrano DPM - 08/21/2024 1:00 PM Chago Mccarthy MD - 04/27/2024 12:12 PM EDTFJared newman RN - 04/27/2024 12:01 PM EDT Note Date & Type Note Facility 02-16-2025 Note [facility] 02-03-2025 History of Present illness Narrative Images from the original note were not included. [address] , [address] [facility], [address] P: [phone] F: [phone] HPI Historian of HPI: patient Leander Massey is a 54 y.o. male who presents today to the Urgent Care with the following complaints and denials which have been present for 5 day(s) C/O Denies Symptom Comments [] [x] Runny Nose [] [x] Difficulty Swallowing [] [x] Sore Throat [] [x] Cough [] [x] Ear Pain [x] [] Fever [x] [] Chills [] [x] Nasal Congestion [x] [] Myalgia [] [x] Sinus Pain [] [x] Sinus Pressure Additional Comments: Pt states I think I have the flu and I also have a boil on my back . Pt reports he is a dialysis pt and thought he'd been unwell from that. Pt has been having fever/chills/body aches since Sunday and that is also when he noticed the boil. Pt denies SOB/chest pain. ROS A complete system ROS was performed and negative aside from the pertinent positives noted in the HPI and PE. PHYSICAL EXAM Examination General Examination: General Examination: in no acute distress, well developed, well nourished slightly ill appearing. Head: normocephalic, atraumatic Psych: alert, oriented TREATMENT PLAN 1. Abscess of back (Primary) Discussed due to flu like sx with skin abscess, and vitals obtained today the need to present immediately to ER. Discussed calling EMS or a ride for him so he is not driving himself, and pt refuses. Discussed importance of ER visit immediately today and pt verb understanding. Pt leaves clinic in stable condition aware of immediate ER visit. Discussed if he is driving himself to call 911 if his sx worsen on the way to ER and pt verb understanding. documented in this encounter [facility] 10-24-2024 Note [facility] 09-23-2024 Note RN went over AVS wit h patient-no questions at this time. Papers signed and patient wheeled to main lobby with belongings and assisted to daughter's car. [facility] 09-23-2024 Note 3.5 hr tx, 3.2kg off , 3000 epo given, pt tolerated well, 2k bath [facility] 08-21-2024 History of Present illness Narrative Images from the original note were not included. HPI: Leander Massey states they have noticed lesions on the bilateral foot for the past months There has been Yes enlargement with time. There is pain with ambulation and/or pressure over the area. Treatment has consisted of: cortisone topical cream for the itching and burning. Patient describes pain as sharp and burning on the balls of his feet. No other complaints. Examination: General Examination: GENERAL APPEARANCE: awake, aware of surroundings, in no acute distress Vascular: DORSALIS PEDIS PULSE: 2/4, bilaterally POSTERIOR TIBIAL PULSE: 2/4, bilaterally TEMPERATURE GRADIENT: warm to cool EDEMA: none CAPILLARY FILLING TIME(sec): capillary fill intact bilateral digits less than 3 secs Neurologic: NEUROLOGIC: light touch is intact to the plantar foot Dermatologic: SKIN FINDINGS: Areas of thickened skin, flaking, patches noted to the palms and plantar aspect of the feet bilateral. There are pinpoint areas of bleeding upon removal of the area of thickened skin to the plantar foot. 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 Prescription for steroid cream was sent to the patient's preferred pharmacy. He was instructed if they cost of this medication is high that he can call the office and alternative Can be prescribed. I did encourage that he follow-up with dermatology as they may be able to provide Biologic medications that will do a better job of providing recurrent flare-ups and symptoms. I did take a sample of the skin via of skin scraping along the plantar aspect of the was sent to Juan for further evaluation. Referral was placed and patient will be contacted on further scheduling. documented in this encounter [facility] 08-08-2024 Note [facility] 07-18-2024 Note [facility] 07-14-2024 Note [facility] 06-27-2024 Note [facility] 06-04-2024 Note [facility] 05-31-2024 Note [facility] 05-31-2024 Note [facility] 05-31-2024 Note [facility] 05-31-2024 Note 3.2kg removed over 3 hour treatment via L AVG. No issues. [facility] 05-31-2024 Note [facility] 05-31-2024 Note [facility] 05-30-2024 Note [facility] 05-30-2024 Note [facility] 05-30-2024 Note [facility] 05-30-2024 Note [facility] 05-30-2024 Note [facility] 05-30-2024 Note [facility] 05-30-2024 Note [facility] 05-30-2024 Note [facility] 05-29-2024 Note [facility] 05-29-2024 Note [facility] 05-29-2024 Note [facility] 05-29-2024 Note [facility] 05-29-2024 Note [facility] 05-29-2024 Note [facility] 05-29-2024 Note [facility] 05-28-2024 Note [facility] 05-28-2024 Note [facility] 05-27-2024 Note [facility] 05-27-2024 Note [facility] 05-27-2024 Note [facility] 04-27-2024 History of Present illness Narrative Images from the original note were not included. SUBJECTIVE Patient was seen and examined. Patient remains hemodynamically stable. He was dialyzed yesterday and 4 L were removed during dialysis. He is 1 kg below his dry weight. His blood pressure is now under good control and systolic blood pressure was 140 this morning. Patient denies any chest pain He denies any lightheadedness or dizziness. OBJECTIVE CURRENT TEMPERATURE: Temp: 98 F (36.7 C) MAXIMUM TEMPERATURE OVER 24HRS: Temp (24hrs), Av.1 F (36.7 C), Min:97.7 F (36.5 C), Max:98.3 F (36.8 C) CURRENT RESPIRATORY RATE: Respirations: 16 CURRENT PULSE: Pulse: 87 CURRENT BLOOD PRESSURE: BP: (!) 148/86 24HR BLOOD PRESSURE RANGE: Systolic (24hrs), Av , Min:128 , Max:181 ; Diastolic (24hrs), Av, Min:69, Max:94 24HR INTAKE/OUTPUT: Intake/Output Summary (Last 24 hours) at 04/27/2024 1212 Last data filed at 04/27/2024 0600 Gross per 24 hour Intake 1886.3 ml Output 4277 ml Net -2390.7 ml WEIGHT :Patient Vitals for the past 96 hrs (Last 3 readings): Weight 04/26/24 1830 86.5 kg (190 lb 11.2 oz) 04/26/24 1400 90.4 kg (199 lb 4.7 oz) 04/26/24 1115 90.4 kg (199 lb 4.7 oz) PHYSICAL EXAM GENERAL APPEARANCE: Awake and alert x 3 SKIN: Warm to touch and no erythema EYES: Conjunctiva was pink NECK: His JVD was prominent PULMONARY: Bilateral air entry and clear CADRDIOVASCULAR: S1 and S2 normally heard NO S3 and NO S4 . No rubs and no murmur. ABDOMEN: Soft and nontender bowel sounds are positive EXTREMITIES: No edema CURRENT MEDICATIONS sodium chloride flush 0.9 % injection 5-40 mL, 2 times per day sodium chloride flush 0.9 % injection 5-40 mL, PRN 0.9 % sodium chloride infusion, PRN potassium chloride 20 mEq/50 mL IVPB (Central Line), PRN Or potassium chloride 10 mEq/100 mL IVPB (Peripheral Line), PRN magnesium sulfate 2000 mg in 50 mL IVPB premix, PRN enoxaparin (LOVENOX) injection 40 mg, Daily ondansetron (ZOFRAN-ODT) disintegrating tablet 4 mg, Q8H PRN Or ondansetron (ZOFRAN) injection 4 mg, Q6H PRN polyethylene glycol (GLYCOLAX) packet 17 g, Daily PRN acetaminophen (TYLENOL) tablet 650 mg, Q6H PRN Or acetaminophen (TYLENOL) suppository 650 mg, Q6H PRN sodium phosphate 15 mmol in sodium chloride 0.9 % 250 mL IVPB, PRN albuterol (PROVENTIL) (2.5 MG/3ML) 0.083% nebulizer solution 2.5 mg, Q2H PRN lisinopril (PRINIVIL;ZESTRIL) tablet 10 mg, BID nicotine (NICODERM CQ) 21 MG/24HR 1 patch, Daily aspirin EC tablet 81 mg, Daily atorvastatin (LIPITOR) tablet 10 mg, Daily clopidogrel (PLAVIX) tablet 75 mg, Daily gabapentin (NEURONTIN) capsule 300 mg, BID hydrALAZINE (APRESOLINE) tablet 100 mg, 3 times per day [Held by provider] lisinopril (PRINIVIL;ZESTRIL) tablet 10 mg, BID amLODIPine (NORVASC) tablet 10 mg, Daily levothyroxine (SYNTHROID) tablet 100 mcg, BID carvedilol (COREG) tablet 25 mg, BID [facility] LABS CBC: Recent Labs 04/26/24 1253 04/27/24 0741 WBC 7.6 9.5 RBC 3.08* 2.80* HGB 9.5* 8.8* HCT 30.8* 27.8* MCV 100.0 99.3 MCH 30.8 31.4 MCHC 30.8 31.7 RDW 13.1 13.3 PLT 202 206 MPV 9.8 9.9 BMP: Recent Labs 04/26/24 1253 04/27/24 0741 NA 132* 137 K 5.1 4.7 CL 92* 96* CO2 21 25 BUN 47* 32* CREATININE 9.9* 7.2* GLUCOSE 138* 98 CALCIUM 9.5 9.4 BNP: Lab Results Component Value Date/Time BNP 78 10/26/2022 11:00 AM PHOSPHORUS: Recent Labs 04/26/24 1253 PHOS 5.0* MAGNESIUM: Recent Labs 04/26/24 1253 MG 2.9* HEPBSAG: Lab Results Component Value Date/Time HEPBSAG NONREACTIVE 04/26/2024 03:08 PM HEPCAB: Lab Results Component Value Date/Time HEPCAB Nonreactive 12/13/2023 09:53 AM URINALYSIS: U/A: Lab Results Component Value Date/Time NITRU Negative 10/28/2013 04:36 PM COLORU Yellow 10/28/2013 04:36 PM PHUR 7.0 10/28/2013 04:36 PM CLARITYU Clear 10/28/2013 04:36 PM LEUKOCYTESUR Negative 10/28/2013 04:36 PM UROBILINOGEN 0.2 10/28/2013 04:36 PM BILIRUBINUR Negative 10/28/2013 04:36 PM BLOODU Negative 10/28/2013 04:36 PM GLUCOSEU Negative 10/28/2013 04:36 PM KETUA Negative 10/28/2013 04:36 PM ANTIGBM:No results found for: GBMABIGG RADIOLOGY Reviewed as available. ASSESSMENT 1. Congestive cardiac failure due to fluid retention further complicated by increase in blood pressure and decompensated CHF with underlying coronary artery disease and diastolic dysfunction. Patient was dialyzed on 4 L of fluid was removed. The symptoms of congestive cardiac failure has been improved. Patient requires further weight challenge 2. Mild hyperkalemia and improved with dialysis 3. Peripheral vascular disease and multiple intervention. Patient is an active smoker 4. Hypertension most likely volume related and responded well to dialysis and ultrafiltration 5. History of coronary artery disease recent angiogram shows narrowing and 2 interventions are needed detail are not available at the time of this dictation PLAN 1. Okay to discharge from renal standpoint 2. Had a long discussion with the patient. Patient was advised to drink less fluid and gain less in between dialysis 3. He will try and leave weight needs to be further challenge as an outpatient 4. Follow-up with primary geospatial technologist Please do not hesitate to call with questions. Patient's discharge instructions reviewed and given to patient. Patient verbalizes understanding of discharge. Patient awaiting daughter for pickup. Dialysis Post Treatment Note Vitals: 04/26/24 1830 BP: (!) 154/83 Pulse: 80 Resp: 16 Temp: 98.2 F (36.8 C) SpO2: 100% Pre-Weight = 90.4kg Post-weight = Weight - Scale: 86.5 kg (190 lb 11.2 oz) Total Liters Processed = Blood Volume Processed (Liters): 86.39 L Rinseback Volume (mL) = Rinseback Volume (ml): 240 ml Net Removal (mL) = 4037 Patient's dry weight= 87kg Type of access used= LFA graft Length of treatment=3.5 hrs Patient tolerated treatment well with no complaints. VS remained stable throughout. Update given to Jared QUEEN. Dialysis Time Out To be done by RN and tech or 2 RNs Staff Names Noy Hale RN and Maria Dolores Mares RN [x] Identity of the patient using 2 patient identifiers [x] Consent for treatment [x] Equipment-proper machine and dialyzer [x] B-Hep B negative 04/26/24 [x] Orders- to include bath, blood flow, dialyzer, time and fluid removal [x] Access-Correct site and in working order [x] Time for patient to ask questions. documented in this encounter [facility] 03-20-2024 Note [facility] 03-12-2024 Note [facility] 03-12-2024 Note [facility] 01-09-2024 Discharge summary Note Date/Time January 09, 2024 10:27am [facility] [address] [place] [address] Discharge Summary Signed Patient: Leander Massey MR#: [id number] : 1970 Acct:[id number] Age/Sex: 53 / M Adm Date: 4 Loc: Room: [address] [place] [address]: Jersey Sharp MD Copies to: MD Shantell Omalley [facility]~ Providers Date of Discharge: 01/09/24 Discharging Provider: Jersey Sharp Primary Care Provider: Shantell Osei Consults: 01/08/24 21:06 Consult to Sleep Lab Routine Comment: Physician Instructions: 01/08/24 22:14 Consult to Pulmonology Routine Comment: Consulting Provider: SASCHA Benavides [facility] Reason For Exam: Critical [...] dialysis yesterday due to an appointment in [place]. He came with shortness of breath. He [...] ask her primary care doctor to obtain [facility] record entirely to address abnormalities seen on [...] % (Auto) 81.4, Lymph % (Auto) 7.2, [place] % (Auto) 5.4, Eos % (Auto) 4.9, Baso % (Auto) 1.1, Nucleat RBC Rel Count 0.2, Neut # (Auto) 9.2 H, Lymph # (Auto) 0.8 L, [place] # (Auto) 0.6, Eos # (Auto) 0.6 [...] % (Auto) 91.7, Lymph % (Auto) 2.6, [place] % (Auto) 3.2, Eos % (Auto) 2.4, Baso % (Auto) 0.1, Nucleat RBC Rel Count 0.0, Neut # (Auto) 16.2 H, Lymph # (Auto) 0.5 L, [place] # (Auto) 0.6, Eos # (Auto) 0.4, [...] ask your primary care provider to obtain [facility] records entirely to follow up on all of the abnormal physical, laboratory, and imaging findings that I have not addressed. Please return back to the emergency room or seek medical attention if your symptoms worsen or return. Discharging you from [facility] does not mean that your medical care [...] signed by Jersey Sharp MD> 01/09/24 1030 [facility] Work Phone: 1(612) 895-157603-27-2024 History and physical note Author Percy Herrera [facility] January 08, 2024 10:52pm Note Date/Time January 08, 2024 10: 52pm [facility] [address] [place] [address] Hospitalist H&P Signed Patient: Leander Massey MR#: [id number] : 1970 Acct:[id number] Age/Sex: 53 / M Adm Date: 4 Loc: Room: 6H9946-3 Type: ADM IN Attending Dr: Jose Luis Musa MD Copies to: MD Jose Luis Bernal MD Shantell Cummingsault, [facility]-~ HPI DATE OF EXAMINATION: 01/08/24 CHIEF COMPLAINT: dyspnea HISTORY OF PRESENT ILLNESS: 53 year old man with history of ESRD on HD TTS, HTN, DLD, hypothyroidism, PVD, and COPD on nocturnal bipap who presented to [place] ED complaining of acute onset of dyspnea earlier on the date of presentation Per the patient he last had a dialysis treatment on Thursday 01/04. He was to have an appointment with a physician this afternoon, and had moved his dialysis treatment to sunday morning to accommodate this. around 1 pm, however, the patient developed acute respiratory distress and was brought to [place] ED for evaluation- vital signs on arrival [...] and no additional complaints, except as documented [facility] Medical History Arteriovenous fistula of left upper [...] days): 2 Documented By: Percy Herrera MD 01/08/246 Signed By: <Electronically signed by Percy Herrera MD> 01/08/24 6109 [facility] Work Phone: 1(133) 729-862401-31-2024 Evaluation note* Encounter Date Diagnosis Assessment Notes [...] podiatry would be bst to manage this. [facility] Other 08-01-2023 Evaluation note* Encounter Date Diagnosis Assessment Notes Treatment Notes Treatment Clinical Notes May, Dyshidrotic eczema (ICD-10 - L30.1) Discussed with patient exam is consistent with dyshidrotic eczema. Discussed exact cause of flare is not known but could be related to chemical exposure. 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 Discussed use of emollient [...] Other Eczema (atopic dermatitis) material was printed [facility] Other 02-16-2023 Evaluation note* Encounter Date Diagnosis Assessment Notes Treatment Notes Treatment Clinical Notes Nov, Sebaceous cyst (ICD-10 - L72.3) Referral put in as discussed. 16 Feb, 2023 Colon cancer screening (ICD-10 - Z12.11) Referral for Gastro put in as discussed. [facility] Other 12-14-2022 Evaluation note* Encounter Date Diagnosis [...] should resolve over the next few months. [facility] Other 11-30-2022 Evaluation note* Encounter Date Diagnosis [...] IV antibiotic therapy as given by his geospatial technologist. The cellulitis is improved overall. He continues [...] left CEA about 8 months ago in [place]. There is slight elevation in peak systolic [...] agrees with this plan, denies any questions. [facility] Other 10-18-2022 Evaluation note* Encounter Date Diagnosis [...] be aware the nature of the procedure. [facility]* Encounter Date Diagnosis Assessment Notes [...] will schedule this in the near future. [facility] Other 09-15-2022 Evaluation note* Encounter Date Diagnosis Assessment Notes Treatment Notes Treatment Clinical Notes Jun, Preop testing (ICD-10 - Z01.818) [facility] Other 08-24-2022 Evaluation note* Encounter Date Diagnosis [...] Hypotension, unspecified hypotension type (ICD-10 - I95.9) [facility] Other 08-23-2022 Evaluation note* Encounter Date Diagnosis Assessment Notes Treatment Notes Treatment Clinical Notes May, DDD (degenerative disc disease), cervical (ICD-10 - M50.30) [facility] Other 08-11-2022 Evaluation note* Encounter Date Diagnosis Assessment Notes Treatment Notes Treatment Clinical Notes May, DDD (degenerative disc disease), cervical (ICD-10 - M50.30) [facility] Other 07-18-2022 Evaluation note* Encounter Date Diagnosis Assessment Notes Treatment Notes Treatment Clinical Notes Apr, DDD (degenerative disc disease), cervical (ICD-10 - M50.30) [facility] Other 05-26-2022 Evaluation note* Encounter Date Diagnosis Assessment Notes Treatment Notes Treatment Clinical Notes February, Asymptomatic stenosis of left carotid artery (ICD-10 - I65.22) I did review the patient's carotid duplex with him today. This is a postop surveillance study which revealed that there was no stenoses at this time. Everything looks good from the repair done in [place]. We will need to repeat that study [...] right-handed. We will plan this is a [facility] outpatient case in the next few weeks. [...] and is able to chew and swallow. [facility] Other 05-26-2022 Evaluation note* Encounter Date Diagnosis Assessment Notes Treatment Notes Treatment Clinical Notes February, Pre-op testing (ICD-10 - Z01.818) [facility] Other 05-12-2022 Evaluation note* Encounter Date Diagnosis Assessment Notes Treatment Notes Treatment Clinical Notes February, Primary insomnia (ICD-10 - F51.01) May start with half tablet for first 2 weeks then increase to 1 tablet at bedtime [facility] Other 04-26-2022 Evaluation note* Encounter Date Diagnosis [...] to monitor his blood pressure at home 26 Apr, 2022 CKD (chronic kidney disease) stage 4, GFR [...] the patient to follow a low-salt diet [facility] Other 03-23-2022 Evaluation note* Encounter Date Diagnosis [...] he is due from his procedure in [place]. [facility] Other 03-23-2022 Evaluation note* Encounter Date Diagnosis Assessment Notes Treatment Notes Treatment Clinical Notes Dec, Pre-op testing (ICD-10 - Z01.818) [facility] Other 03-14-2022 Evaluation note* Encounter Date Diagnosis Assessment Notes Treatment Notes Treatment Clinical Notes Dec, CKD (chronic kidney disease) stage 4, GFR 15-29 ml/min (ICD-10 - N18.4) [facility] Other 03-07-2022 Evaluation note* Encounter Date Diagnosis Assessment Notes Treatment Notes Treatment Clinical Notes Dec, CKD (chronic kidney disease) stage 4, GFR 15-29 ml/min (ICD-10 - N18.4) [facility] Other 03-03-2022 Evaluation note* Encounter Date Diagnosis [...] with the importance of different option of REDYE HAND including HD, PD 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 He [...] have advised him to adequately hydrate himself. [facility] Other 02-14-2022 Evaluation note* Encounter Date Diagnosis Assessment Notes Treatment Notes Treatment Clinical Notes Nov, Chronic kidney disease, stage III (moderate) (ICD-10 - N18.30) Nov, Aidan hy kid w cr kid I-IV (ICD-10 - I12.9) Nov, Nephrolithiasis (ICD-10 - N20.0) Nov, Anemia of renal disease (ICD-10 - D63.1) [facility] Other 02-14-2022 Evaluation note* Encounter Date Diagnosis Assessment Notes Treatment Notes Treatment Clinical Notes Nov, CKD (chronic kidney disease) stage 4, GFR 15-29 ml/min (ICD-10 - N18.4) Nov, Essential hypertension (ICD-10 - I10) Nov, Aidan hy kid w cr kid I-IV (ICD-10 - I12.9) [facility] Other 02-12-2022 Evaluation note* Encounter Date Diagnosis Assessment Notes Treatment Notes Treatment Clinical Notes Nov, Chronic kidney disease, stage 3a (ICD-10 - N18.31) Nov, Bilateral leg edema (ICD-10 - R60.0) [facility] Other 01-19-2022 Evaluation note* Encounter Date Diagnosis Assessment Notes Treatment Notes Treatment Clinical Notes Oct, CKD (chronic kidney disease) stage 4, GFR 15-29 ml/min (ICD-10 - N18.4) [facility] Other 12-02-2021 Evaluation note* Encounter Date Diagnosis [...] have advised him to adequately hydrate himself. [facility] Other 11-04-2021 Evaluation note* Encounter Date Diagnosis [...] have advised him to adequately hydrate himself. [facility] Other 11-01-2021 Evaluation note* Encounter Date Diagnosis Assessment Notes Treatment Notes Treatment Clinical Notes Aug, Chronic kidney disease, stage III (moderate) (ICD-10 - N18.30) [facility] Other 10-25-2021 Evaluation note* Encounter Date Diagnosis Assessment Notes Treatment Notes Treatment Clinical Notes Jul, CKD (chronic kidney disease) stage 4, GFR 15-29 ml/min (ICD-10 - N18.4) [facility] Other 10-15-2021 NoteMR#: [id number] I [facility] Pt. Name: Leander Massey Admitted: 07/22/2021 Discharged: 07/23/2021 Date of : 1970 Physician: Lul Huynh M.D. DISCHARGE SUMMARY PRINCIPAL DIAGNOSIS: Left carotid artery stenosis. SECONDARY DIAGNOSES: Thyroid enlargement, hypothyroidism, hypertension, and hyperlipidemia. HOSPITAL COURSE: The patient is a 50-year-old male who presented to the hospital for planned left carotid endarterectomy for carotid artery stenosis. He underwent left CEA by Dr. Huynh on 07/22, after which he was admitted [...] should follow up with General Surgery. Dr. Sanabria was consulted intraoperatively. Discussed low-cholesterol diet to [...] hours p.r.n. postoperative pain. Electronically Signed by: Lul Huynh M.D. 08/10/2021 12:16 P Lul Huynh M.D. I personally saw this patient on the day of the encounter, performed the bridges portion(s) of the service and participated in the management and confirm the resident's documentation. Please note there may be an additional personal documentation from me. Date Dict: 07/28/2021/03:29 P/Shivani Coffey PA-C Date Trans: 07/29/2021 07:54 A/jacob [id number]* Encounter Date Diagnosis Assessment Notes Treatment Notes Treatment Clinical Notes Jul, Cerebrovascular accident (CVA) due to other mechanism (ICD-10 - I63.89) Jul, Essential (primary) hypertension (ICD-10 - I10) Continue current medication and keep Dr Mora informed about blood pressures and ordered. Jul, Autoimmune thyroidit is (ICD-10 - E06.3) Jul, DDD (degenerative di sc disease), cervical (ICD-10 - M50.30) [facility] Other 10-07-2021 Evaluation note* Encounter Date Diagnosis [...] have advised him to adequately hydrate himself. [facility] Other 09-01-2021 History of Present illness Narrative* [...] upcoming CEA surgery and being under anesthesia. [id number] [address] Work Phone: chizm complaint Narrative - Reported* The patient presents to the office today for an initial evaluation. * Recent stroke [id number] [address] Work Phone: consult note Author Toby Venegas [facility] January 09, 2024 11:25am Note Date/Time January 09, 2024 11: 25am [facility] [address] [place] [address] Nephrology Consult Note Signed Patient: Leander Massey MR#: [id number] : 1970 Acct:[id number] Age/Sex: 53 / M Adm Date: 4 Loc: Room: [address] [place] [address] Type: ADM IN Attending Dr: Jersey Sharp MD Copies to: MD Jersey Mehta MD Stephanie Breault [employer]PER[employer]-~ Providers Consult Date: 01/09/24 Requesting Provider: Jersey Sharp MD Primary Care Provider: TOMÁS Jay HPI Reason for Consult: Hyperkalemia and volume overload History of Present Illness: Mr. Massey is a 53-year-old white gentleman with history of ESRD related to HTN onhemodialysis since February 2022. Patient currently gets dialysis at [facility] on TTS schedule. Last hemodialysis was on Thursday 01/04 and he was supposed to have dialysis yesterday however he has an appointment with the physician and he moved his dialysis to the following day Sunday morning. Apparently, patient developed significant shortness of breath and he presented to [place] ED for evaluation. He was found to be hypoxemic with pulse ox 72% on 5 L oxygen and he was immediately started on BiPAP. Chest x-ray showed bilateral perihilar opacities with pulmonary edema. Potassium was elevated 6.5 mEq/L. Patient had urgent treatment for hyperkalemia and he was transferred to [facility] for urgent dialysis. On arrival, repeat potassium [...] negative unless noted below or in HPI [facility] Medical History Arteriovenous fistula of left upper [...] 2.5 Mg Tablet) 10 mg PO BID [facility] Stop: 01/07/25 23:29 Last Admin: 01/09/24 08:29 [...] since February 2022 currently gets dialysis at [facility] on TTS schedule. Patient rescheduled on hemodialysis [...] does not proofread for this. Documented By: Toyb Venegas MD 01/09/24 1108 Signed By: <Electronically signed by MD Toby Venegas> 01/09/24 1125 [facility] Work Phone: Evaluation noteNo Assessments Information Available [facility] InformationNort Supersolid Other Evaluation noteNo assessment information available [facility] Work Phone: Evaluation note* Diagnosis Onset Date Resolution Status Cellulitis acute End-stage renal disease needing dialysis acute Hyperlipidemia acute Hypertension acute Hypertensive kidney disease with chronic kidney disease stage V acute Hypothyroid acute Secondary hyperparathyroidism acute [facility] Work Phone: Evaluation note* Diagnosis Onset Date Resolution Status Acute and chronic respiratory failure with hypoxia acute Acute hyperkalemia acute Acute pulmonary edema acute Anemia of renal disease acut e End-stage renal disease needing dialysis acute Hyperkalemia acute Hypertensive kidney disease with chronic kidney disease stage V acute Leukocytosis acute [facility] Work Phone: Evaluation note* Diagnosis Onset Date Resolution Status Acute and chronic respiratory failure with hypoxia acute Acute hyperkalemia acute Acute pulmonary edema acute Anemia of renal disease acut e End-stage renal disease needing dialysis acute Hyperkalemia acute Hypertensive kidney disease with chronic kidney disease stage V acute [facility] Work Phone: Evaluation note* Diagnosis Psoriasis plantaris (CMS/HCC)- Primary [facility] Diagnosis CKD (chronic kidney disease)- Primary Chronic kidney disease, unspecified Acute on chronic diastolic (congestive) heart failure (HCC) documented in this encounter [facility] note* Diagnosis Abscess of back- Primary Cellulitis and abscess of trunk [facility] Narrative - Reported* Type Description Date Medical History hashimotos thyroiditis Medical History hypertension Medical History vitamin D deficiency Medical History hyperlipidemia Medical History SLEEP APNEA Medical History CKD Medical History Acute Kidney Injury with dialysis from [id number] 15,2021 Medical History MINI STROKE Surgical History appendectomy Surgical History cataract surgery RIGHT EYE 2017 Surgical History port in chest 03/2021 Surgical History PORT REMOVED FROM CHEST 05/2021 Hospitalization History low potassium 2017 Hospitalization History SEE ABOVE Hospitalization History kidney issues Be [facility] and [facility] for 7 days 03/2021 [facility] Other HisAnergis general Narrative - Reported* Type Description Date Medical History hashimotos thyroiditis Medical History hypertension Medical History vitamin D deficiency Medical History hyperlipidemia Medical History SLEEP APNEA Medical History CKD Medical History Acute Kidney Injury with dialysis from [id number] 15,2021 Medical History MINI STROKE Surgical History appendectomy Surgical History cataract surgery RIGHT EYE 2017 Surgical History port in chest 03/2021 Surgical History PORT REMOVED FROM CHEST 05/2021 Surgical History carotid endarterectomy 2020 Hospitalization History low potassium 2017 Hospitalization History SEE ABOVE Hospitalization History kidney issues Be [facility] for 7 days 03/2021 [facility] Other MedTest [id number] general Narrative - Reported* Type Description Date Medical History hashimotos thyroiditis Medical History hypertension Medical History vitamin D deficiency Medical History hyperlipidemia Medical History SLEEP APNEA Medical History CKD Medical History Acute Kidney Injury with dialysis from [id number] 15,2021 Medical History MINI STROKE Surgical History appendectomy Surgical History cataract surgery RIGHT EYE 2017 Surgical History port in chest 03/2021 Surgical History PORT REMOVED FROM CHEST 05/2021 Surgical History LEFT carotid endarterectomy 202 1 Hospitalization History low potassium 2016 Hospitalization History SEE ABOVE Hospitalization History kidney issues Be [facility] and [facility] for 7 days 03/2021 Hospitalization History LEFT CAROTID ENDARTERECT HUMA 07/2021 [facility] Other history general Narrative - Reported* Type Description Date Medical History hashimotos thyroiditis Medical History hypertension Medical History vitamin D deficiency Medical History hyperlipidemia Medical History SLEEP APNEA Medical History CKD Medical History Acute Kidney Injury with dialysis from [id number] 15,2021 Medical History MINI STROKE Surgical History appendectomy Surgical History cataract surgery RIGHT EYE 2016 Surgical History port in chest 03/2021 Surgical History PORT REMOVED FROM CHEST 05/2021 Surgical History LEFT carotid endarterectomy 202 1 Hospitalization History low potassium 2016 Hospitalization History SEE ABOVE Hospitalization History kidney issues Be [facility] and the [facility] for 7 days 03/2021 Hospitalization History LEFT CAROTID ENDARTERECT HUMA 07/2021 Hospitalization History kidney issues 12/06 [facility] Other HisAnergis general Narrative - Reported* Type Description Date Medical History hashimotos thyroiditis Medical History hypertension Medical History vitamin D deficiency Medical History hyperlipidemia Medical History SLEEP APNEA Medical History CKD Medical History Acute Kidney Injury with dialysis from [id number] 15,2021 Medical History MINI STROKE Surgical History appendectomy Surgical History cataract surgery RIGHT EYE 2016 Surgical History port in chest 03/2021 Surgical History PORT REMOVED FROM CHEST 05/2021 Surgical History LEFT carotid endarterectomy 202 1 Surgical History hd port placement 01/03 Hospitalization History low potassium 2016 Hospitalization History SEE ABOVE Hospitalization History kidney issues Be [facility] and [facility] for 7 days 03/2021 Hospitalization History LEFT CAROTID ENDARTERECT HUMA 07/2021 Hospitalization History kidney issues 12/06 [facility] Other history general Narrative - Reported* Type Description Date Medical History hashimotos thyroiditis Medical History hypertension Medical History vitamin D deficiency Medical History hyperlipidemia Medical History SLEEP APNEA Medical History CKD Medical History Acute Kidney Injury with dialysis from [id number] 15,2021 Medical History MINI STROKE Surgical History appendectomy Surgical History cataract surgery RIGHT EYE 2016 Surgical History port in chest 03/2021 Surgical History PORT REMOVED FROM CHEST 05/2021 Surgical History LEFT carotid endarterectomy 202 1 Surgical History hd port placement 01/03 Hospitalization History low potassium 2016 Hospitalization History SEE ABOVE Hospitalization History kidney issues Be [facility] and [facility] for 7 days 03/2021 Hospitalization History LEFT CAROTID ENDARTERECT HUMA 07/2021 Hospitalization History kidney issues 12/06 Hospitalization History Kidney 02/19/20 [facility] Other history general Narrative - Reported* Type Description Date Medical History hashimotos thyroiditis Medical History hypertension Medical History vitamin D deficiency Medical History hyperlipidemia Medical History SLEEP APNEA Medical History CKD Medical History Acute Kidney Injury with dialysis from [id number] 15,2021 Medical History MINI STROKE Surgical History appendectomy Surgical History cataract surgery RIGHT EYE 2017 Surgical History port in chest 03/2021 Surgical History PORT REMOVED FROM CHEST 05/2021 Surgical History LEFT carotid endarterectomy 06/16 021 Surgical History hd port placement 01/03 Hospitalization History low potassium 2016 Hospitalization History SEE ABOVE Hospitalization History kidney issues Be [facility] and the [facility] for 7 days 03/2021 Hospitalization History LEFT CAROTID ENDARTERECT HUMA 07/2021 Hospitalization History kidney issues 12/06 Hospitalization History Kidney 02/19/20 [facility] Other [facility] general Narrative - Reported* Type Description Date Medical History hashimotos thyroiditis Medical History hypertension Medical History vitamin D deficiency Medical History hyperlipidemia Medical History SLEEP APNEA Medical History CKD Medical History Acute Kidney Injury with dialysis from [id number] 15,2021 Medical History MINI STROKE Surgical History appendectomy Surgical History cataract surgery RIGHT EYE 2016 Surgical History port in chest 03/2021 Surgical History PORT REMOVED FROM CHEST 05/2021 Surgical History LEFT carotid endarterectomy 06/16 021 Surgical History hd port placement 01/03 Surgical History LEFT ARM AVF CREATION 06/2022 Hospitalization History low potassium 2016 Hospitalization History SEE ABOVE Hospitalization History kidney issues Be [facility] and [facility] for 7 days 03/2021 Hospitalization History LEFT CAROTID ENDARTERECT HUMA 07/2021 Hospitalization History kidney issues 12/06 Hospitalization History Kidney 02/19/20 [facility] Other [facility] general Narrative - Reported* Type Description Date Medical History hashimotos thyroiditis Medical History hypertension Medical History vitamin D deficiency Medical History hyperlipidemia Medical History SLEEP APNEA Medical History CKD Medical History Acute Kidney Injury with dialysis from [id number] 15,2021 Medical History MINI STROKE Medical History [...] SEE ABOVE Hospitalization History kidney issues Be [facility] the [facility] for 7 days 03/2021 Hospitalization History LEFT CAROTID ENDARTERECT HUMA 07/2021 Hospitalization History kidney issues 12/06 Hospitalization History Kidney 02/19/20 [facility] Other Hospital Discharge instructions Additional Instructions DISCHARGE [...] or squeezing a rubber ball or hand housing management officer increases the blood flow to your fistula [...] it sounds, feels, or looks! IMPORTANT NUMBERS -[facility] [phone] -[facility] Emergency Room [phone] -Nephrology [phone] -Vascular [phone] FOLLOW UP -Call your physician to schedule a post-operative appointment. [facility] [employer] Work Phone: Hospital Discharge instructions Additional Instructions I may not have addressed or treated all of your medical illnesses or the abnormal blood work or imaging studies during this hospitalization. Please ask your primary care provider to obtain [facility] records entirely to follow up on all of the abnormal physical, laboratory, and imaging findings that I have not addressed. Please return back to the emergency room or seek medical attention if your symptoms worsen or return. Discharging you from [facility] does not mean that your medical care ends here and now. You may still need additional monitoring, work up, investigation, and treatment plan to be handled from this point on by out patient providers including your primary care provider and specialists. For any medication question, please contact your retail pharmacist or your primary care provider. Thank you. Continue hemodialysis treatments as before.[facility] [employer] Work Phone: Reason for visit NarrativeF/U TO DISCUSS CAROTID US RESULTS AND DISCUSS LEFT UE AVF PROCEDURENort Supersolid Other Summary Purpose Family History No Family [...] sister Family history of mental disorder Unknown Relationship Condition Age at Onset Recorded Date/T luca Not Specified Coronary artery disease Unknown brother Hypertension Unknown Family history of mental disorder Unknown father History of stroke Unknown Hypertension Unknown Unknown family member Unknown mother Chronic obstructive pulmonary disease Unk nown Heart disease Unknown sister Family history of mental disorder Unknown Advance Directives No Advanced Directives Records Found Advance Directive Response Recorded Date/ Time Advance Directives No April 05 3:22pm Advance Directive Response Recorded Date/ Time Advance Directives No April 05 2:22pm Latest Code Status on File Code Status Date Activated Date Inactivated Comments Full Code 04/26/2024 11:39 AM Code Status History Code Status Date Activated Date Inactivated Comments Full Code 04/26/2024 11:39 AM 04/26/2024 11:39 AM Chief Complaint and Reason for Visit Chief [...] disease with chronic kidney disease stage V Chief Complaint Admit Date E87.5 October 31, 2024 6 :32am Chief Complaint Admit Date E87.5 October 31, 2024 6 :32am R78.81 November 11, 2024 1 0:33am Chief Complaint Admit Date R78.81 November 11, 2024 1 0:33am E87.5 November 15, 2024 6 :13am E87.5 February 05, 2025 7:0 4am clotted graft February 05, 2025 12: 50pm Assessments No Assessments Information Available Reason for Referral Reason Eval and treat for p lantar warts on left foot Diagnosis 1 Plantar wart of left foot (B07.0) Referral Organization [facility] Infectious Dis ease Referring Provider First Name Live Referring Provider Last Name Blank Referring Provider Specialty Infectious Disease Referred Organization [facility] Referred Provider Adrian Stark Referred Address ,[place], [place],[address] Referred Provider Specialty Unknown Referral Priority Routine Reason 01/09/23 @ 2:35pm cyst on lower lumbar area x 1 year Diagnosis 1 Sebaceous cyst (L72. 3) Referral Organization [facility] Family Medicin e Jalil Referring Provider First Name Shantell Referring Provider Last Name Sea Referring Provider Specialty Nurse Blanca tovar Referred Organization [facility] Referred Provider Fitz Henson Referred Address ,[place], [place],[address] Referred Provider Specialty Dermatology Referral Priority Routine Referral Appointment Date 2023-01-09 [facility] 10:37:12 AM >Received today and waiting for office notes to be locked before sending referral [facility] 12/06/2022 07:19:19 AM >[facility] Dermatology office request us to send the referral P2P to them and they will call and schedule patient. Ref[facility] was sent [facility]P [facility] 12/13/2022 08:41:51 AM >Fax letter for appt update [facility] 12/13/2022 12:57:57 PM >Received letter back with appt Reason 01/10/23 @ [facility] janelle corina needs colonoscopy for cancer screening. Diagnosis 1 Colon cancer screeni ng (Z12.11) Referral Organization [facility] Family Medicin e Jalil Referring Provider First Name Shantell Referring Provider Last Name Sea Referring Provider Specialty Nurse Blanca tovar Referred Organization [facility] Gastroenterolo gy Referred Provider Klaus Ford Referred Address [address],[facility] [address] ,[place], [place],[address] Referred Provider Specialty Gastroentero logy Referral Priority [...] section and content) DATE CREATED AUTHOR 04/09/2018 [facility] DATE CREATED AUTHOR AUTHOR'S ORGANIZ ATION 07/14/2021 [employer] DATE CREATED AUTHOR AUTHOR'S ORGANIZ ATION 05/23/2022 [facility] DATE CREATED AUTHOR AUTHOR'S ORGANIZ ATION 08/21/2022 [facility] DATE CREATED AUTHOR AUTHOR'S ORGANIZ ATION 05/01/2024 [facility] DATE CREATED AUTHOR AUTHOR'S ORGANIZ ATION 02/04/2025 [facility] EPIC DATE CREATED AUTHOR AUTHOR'S ORGANIZ ATION 02/18/2025 [place] [facility] [facility] ical Center DATE CREATED AUTHOR AUTHOR'S ORGANIZ ATION 02/19/2025 [facility] DATE CREATED AUTHOR AUTHOR'S ORGANIZ ATION 02/20/2025 [facility] ysician Group REASON FOR VISIT (unrecogniz ed section and [...] Active Member Role Status Dates Shantell Osei [facility] Primary Care Provider Activ e Team Status: Inactive Member Role Status Dates Iván Govea MD Attending Provider Active Star t: November 11, 2024 End: November 11, 2024 Team Status: Inactive Member Role Status Dates Junior Mora MD Attending Provider Active Start : November 15, 2024 End: November 15, 2024 PHYSICIAN NO FAMILY Primary Care Provider Active Start: November 15, 2024 End: November 15, 2024 Team Status: Active Member Role Status Dates PHYSICIAN NO FAMILY Primary Care Provider Active Start: December 08, 2024 Iván Govea MD Attending Provider Active Star t: December 08, 2024 Team Status: Active Member Role Status Dates PHYSICIAN NO FAMILY Primary Care Provider Active Start: January 05, 2025 Iván Govea MD Attending Provider Active Star t: January 05, 2025 Team Status: Active Member Role Status Dates Shantell Osei [facility] Primary Care Provider Activ e Start: February 05, 2025 Toby Venegas MD Attending Provider Active Star t: February 05, 2025 Team Status: Inactive Member Role Status Dates Shantell Osei [facility] Primary Care Provider Activ e Start: February 05, 2025 End: February 05, 2025 Gerber Short MD Attending Provider Active S tart: February 05, 2025 End: February 05, 2025 Team Status: Active Member Role Status Dates PHYSICIAN NO FAMILY Primary Care Provider Active Start: December 11, 2023 Junior Mora MD Attending Provider Active Start : December 11, 2023 Team Status: Active Member Role Status Dates Shantell Osei [facility] Primary Care Provider Activ e Start: January 06, 2024 Junior Mora MD Attending Provider Active Start : January 06, 2024 Team Status: Inactive Member Role Status Dates Shantell Osei [facility] Primary Care Provider Activ e Start: January 08, 2024 End: January 09, 2024 Toby Venegas MD Other Provider Active Start: 2023 End: January 09, 2024 AINSLEY Don Other Provider Active Start: January 08, 2024 End: January 09, 2024 Junior Mora MD Other Provider Active Start: [facility] 2023 End: January 09, 2024 Baudilio Hoyos MD Other Provider Active Star t: January 08, 2024 End: January 09, 2024 Raul Malave MD Other Provider Active Start: January 08, 2024 End: January 09, 2024 Iván Govea MD Other Provider Active Start: [facility] 2023 End: January 09, 2024 Percy Herrera MD Admit Provider Active S tart: January 08, 2024 End: January 09, 2024 Jersey Sharp MD Attending Provider Active Sta rt: January 08, 2024 End: January 09, 2024 Team Status: Active Member Role Status Dates Shantell Osei [facility]- Primary Care Provider Activ e Start: January 08, 2024 End: January 09, 2024 Jose Luis Musa MD Admit Provider, Othe r Provider Active Start: January 08, 2024 End: January 09, 2024 Percy Herrera MD Attending Provider Active Start: January 08, 2024 End: January 09, 2024 Martín Hampton MD Active Start: [facility] 2023 End: January 09, 2024 Team Status: Active Member Role Status Dates Shantell Osei [facility]- Primary Care Provider Activ e Start: January 09, 2024 End: January 09, 2024 Toby Venegas MD Other Provider Active Start: [facility] 2023 End: January 09, 2024 AINSLEY Don Other Provider Active Start: January 09, 2024 End: January 09, 2024 Junior Mora MD Other Provider Active Start: [facility] 2023 End: January 09, 2024 Baudilio Hoyos MD Other Provider Active Star t: January 09, 2024 End: January 09, 2024 Raul Malave MD Other Provider Active Start: January 09, 2024 End: January 09, 2024 Iván Govea MD Other Provider Active Start: [facility] 2023 End: January 09, 2024 Percy Herrera MD Admit Provider Active S tart: January 09, 2024 End: January 09, 2024 Jersey Sharp MD Attending Provider, Other Provider Active Start: January 09, 2024 End: January 09, 2024 Xin Burdick APRN [facility] Other Provider Active Start: January 09, 2024 End: January 09, 2024 Ramirez Arango MD Other Provider Active Start: [facility] 2023 End: January 09, 2024 [...] January 09, 2024 End: January 09, 2024 Adrian Goodson MD Other Provider Active Start: January 09, 2024 End: January 09, 2024 Gomez Montes MD Other Provider Active Start: [facility] 2023 End: January 09, 2024 Louis Bell DO Other Provider Active Start: January 09, 2024 End: January 09, 2024 Rey Romero DO Other Provider Active Start: January 09, 2024 End: January 09, 2024 Teri Degroot MD Other Provider Active Start: [facility] 2023 End: January 09, 2024 Jassi Arroyo MD Other Provider Active Start: January 09, 2024 End: January 09, 2024 Fatuma Kwan MD Other Provider Active Start: [facility] 2023 End: January 09, 2024 Team Status: Active Member Role Status Dates Shantell Osei , [facility] Primary Care Provider Activ e Start: January 09, 2024 End: January 09, 2024 Toby Venegas MD Attending Provider, Other Provider Active Start: January 09, 2024 End: January 09, 2024 AINSLEY Don Other Provider Active Start: January 09, 2024 End: January 09, 2024 Junior Mora MD Other Provider Active Start: [facility] 2023 End: January 09, 2024 Baudilio Hoyos MD Other Provider Active Star t: January 09, 2024 End: January 09, 2024 Raul Malave MD Other Provider Active Start: January 09, 2024 End: January 09, 2024 Iván Govea MD Other Provider Active Start: [facility] 2023 End: January 09, 2024 Percy Herrera MD Admit Provider Active S tart: January 09, 2024 End: January 09, 2024 Jersey Sharp MD Other Provider Active Start: January 09, 2024 End: January 09, 2024 Xin Burdick APRN ACNP-BC Other Provider Active Start: January 09, 2024 End: January 09, 2024 Ramirez Arango MD Other Provider Active Start: [facility] 2023 End: January 09, 2024 aPblo Valdez MD Other Provider Active Start: January 09, 2024 End: January 09, 2024 Ignacio Ascencio MD Other Provider Active St art: January 09, 2024 End: January 09, 2024 Mario Kinsey DO Other Provider Active Start: January 09, 2024 End: January 09, 2024 Lashon Hurtado MD Other Provider Active Start: January 09, 2024 End: January 09, 2024 Adrian Goodson MD Other Provider Active Start: January 09, 2024 End: January 09, 2024 Gomez Montes MD Other Provider Active Start: [facility] 2023 End: January 09, 2024 Louis Bell DO Other Provider Active Start: January 09, 2024 End: January 09, 2024 Rey Romero DO Other Provider Active Start: January 09, 2024 End: January 09, 2024 Teri Degroot MD Other Provider Active Start: [facility] 2023 End: January 09, 2024 Jassi Arroyo MD Other Provider Active Start: January 09, 2024 End: January 09, 2024 Fatuma Kwan MD Other Provider Active Start: 2023 End: January 09, 2024 Team Status: Inactive Member Role Status Dates Shantell Osei [employer]PER[employer]-BC Primary Care Provider Activ e Start: February 07, 2024 End: February 07, 2024 Junior Mora MD Attending Provider Active Start : February 07, 2024 End: February 07, 2024 Team Status: Inactive Member Role Status Dates Shantell Osei [employer] OPERATOR-BC Primary Care Provider Activ e Start: February 21, 2024 End: February 21, 2024 Junior Mora MD Attending Provider Active Start : February 21, 2024 End: February 21, 2024 Team Status: Inactive Member Role Status Dates Shantell Osei [employer] P[employer] OPERATOR-C Primary Care Provider Active Patrice Levine MD Attending Provider Active Team Status: Active Member Role Status Dates Shantell Osei [employer] P[employer] OPERATOR-C Primary Care Provider Active Team Status: Inactive Member Role Status Dates Shantell Osei [employer] P[employer] OPERATOR-C Primary Care Provider Active Gerber Short MD Attending Provider Active Team Status: Inactive Member Role Status Dates Shantell Osei [employer] P[employer] OPERATOR-C Primary Care Provider Active Percy Herrear MD Admit Provider Active Irwin Theodore MD Attending Provider Active Toby Venegas MD Other Provider Active Team Status: Inactive Member Role Status Dates Shantell Osei [employer]ACK[employer] PAVER OPERATOR-C Primary Care Provider Active Junior Mora MD Attending Provider Active Team Status: Inactive Member Role Status Dates Shantell Osei BLACK[employer] PAVER OPERATOR-C Primary Care Provider Active Start: October 11, 2023 End: October 11, 2023 Junior Mora MD Attending Provider Active Start : October 11, 2023 End: October 11, 2023 Team Status: Inactive Member Role Status Dates Junior Mora MD Attending Provider Active Start : November [...] Active Member Role Status Dates Shantell Osei [facility] Primary Care Provider Activ e Start: January 08, 2024 Jose Luis Musa MD Admit Provider, Othe r Provider Active Start: January 08, 2024 Percy Herrera MD Attending Provider Active Start: January 08, 2024 Team Status: Active Member Role Status Dates Shantell Osei [facility] Primary Care Provider Activ e Start: January 09, 2024 Toby Venegas MD Other Provider Active Start: [facility] 2023 Isha Kowalski NP-Radha Other Provider Active Start: January 09, 2024 Junior Mora MD Other Provider Active Start: [facility] 2023 Baudilio Hoyos MD Other Provider Active Star t: January 09, 2024 Raul Malave MD Other Provider Active Start: January 09, 2024 Iván Govea MD Other Provider Active Start: [facility] 2023 Percy Herrera MD Admit Provider Active S tart: January 09, 2024 Jersey Sharp MD Attending Provider, Other Provider Active Start: January 09, 2024 Xin Burdick APRN [facility] Other Provider Active Start: January 09, 2024 Ramirez Arango MD Other Provider Active Start: [facility] 2023 Pablo Valdez MD Other Provider Active Start: January 09, 2024 Ignacio Ascencio MD Other Provider Active St art: January 09, 2024 Mario Kinsey DO Other Provider Active Start: January 09, 2024 Lashon Hurtado MD Other Provider Active Start: January 09, 2024 Adrian Goodson MD Other Provider Active Start: January 09, 2024 Gomez Montes MD Other Provider Active Start: [facility] 2023 Louis Bell , Other Provider Active Start: January 09, 2024 Rey Romero DO Other Provider Active Start: January 09, 2024 Teri Degroot MD Other Provider Active Start: [facility] 2023 Jassi Arroyo MD Other Provider Active Start: January 09, 2024 Fatuma Kwan MD Other Provider Active Start: [facility] 2023 Team Status: Active Member Role Status Dates Shantell Osei , [facility] Primary Care Provider Activ e Start: January 09, 2024 Toby Venegas MD Attending Provider, Other Provider Active Start: January 09, 2024 Isha Kowalski NP-C Other Provider Active Start: January 09, 2024 Junior Mora MD Other Provider Active Start: [facility] 2023 Baudilio Hoyos MD Other Provider Active Star t: January 09, 2024 Raul Malave MD Other Provider Active Start: January 09, 2024 Iván Govea MD Other Provider Active Start: [facility] 2023 Percy Herrera MD Admit Provider Active S tart: January 09, 2024 Jersey Sharp MD Other Provider Active Start: January 09, 2024 Xin Burdick APRN [facility] Other Provider Active Start: January 09, 2024 Ramirez Arango MD Other Provider Active Start: [facility] 2023 Pablo Valdez MD Other Provider Active Start: January 09, 2024 Ignacio Ascencio MD Other Provider Active St art: January 09, 2024 Mario Kinsey DO Other Provider Active Start: January 09, 2024 Lashon Hurtado MD Other Provider Active Start: January 09, 2024 Adrian Goodson MD Other Provider Active Start: January 09, 2024 Gomez Montes MD Other Provider Active Start: [facility] 2023 Louis Bell DO Other Provider Active Start: January 09, 2024 Rey Romero DO Other Provider Active Start: January 09, 2024 Teri Degroot MD Other Provider Active Start: [facility] 2023 Jassi Arroyo MD Other Provider Active Start: January 09, 2024 Fatuma Kwan MD Other Provider Active Start: [facility] 2023 Mathematics Lecturer Relationship Specialty Start Date End Date Shantell Osei NP [address] [place] [address] Referring Physician 08/21/24 Mathematics Lecturer Relationship Specialty Start Date End Date Shantell Osei NP [address] [place] [address] Referring Physician 08/21/24 Team Status: Active Member Role Status Dates Shantell Osei [facility] Primary Care Provider Activ e Start: August 07, 2024 Junior Mora MD Attending Provider Active Start : August 07, 2024 Team Status: Active Member Role Status Dates Shantell Osei [facility] Primary Care Provider Activ e Start: September 07, 2024 Junior Mora MD Attending Provider Active Start : September 07, 2024 Team Status: Active Member Role Status Dates Shantell Osei [facility] Primary Care Provider Activ e Start: September 14, 2024 Iván Govea MD Attending Provider Active Star t: September 14, 2024 Team Status: Inactive Member Role Status Dates Shantell Sea , [facility] Primary Care Provider Activ e Start: October 31, 2024 End: October 31, 2024 Toby Venegas MD Attending Provider Active Star t: October 31, 2024 End: October 31, 2024 Mathematics Lecturer Relationship Specialty Start Date End Date Ace Marr DO PCP - General Family Medicine 02/11/14 Team Status: Inactive Member Role Status Dates Junior Mora MD Attending Provider Active Start : November 15, 2024 End: November 15, 2024 Team Status: Inactive Member Role Status Dates Shantell Osei [facility] Primary Care Provider Activ e Start: February 05, 2025 End: February 05, 2025 Toby Venegas MD Attending Provider Active Star t: February 05, 2025 End: February 05, 2025 Mathematics Lecturer Relationship Specialty Start Date End Date Norm Faustin MD [address] [place] [id number] PCP - Devoted 10/15/24 Shantell Osei NP [address] [place] [address] Referring Physician 08/21/24 Goals (unrecognized section and content) Goals may be documented in a n alternate section Scheduled Active and Recently Administ ered Medications (unrecognized section and content) Medication Order 04/25/2024 04/26/2024 04/27/2024 amLODIPine (NORVASC) tablet 10 mg 10 mg, Oral, DAILY, First dose on 04/26/24 at 1345, Until Discontinued 1627 (Given - Provider: Jared Whitley RN) 0824 (Given - Provider: Jared Whitley, RN) aspirin EC tablet 81 mg 81 mg, Oral, DAILY, First dose on 04/26/24 at 1315, Until Discontinued, Do not crush or break. 1313 (Given - Provider: Jared Whitley, BRET) 0824 (Given - Provider: Jared Whitley, RN) atorvastatin (LIPITOR) tablet 10 mg 10 mg, Oral, DAILY, First dose on 04/26/24 at 1315, Until Discontinued 1323 (Given - Provider: Jared Whitley, BRET) 0825 (Given - Provider: Jared Whitley, RN) carvedilol (COREG) tablet 25 mg 25 mg, Oral, 2 TIMES DAILY WITH MEALS, First dose (after last reorder) on 04/26/24 at 1700, Until Discontinued, Administer with food to minimize the risk of orthostatic hypotension 1627 (Given - Provider: Jared Whitley, BRET) 0825 (Given - Provider: Jared Whitley, BRET)1700 (Due) clopidogrel (PLAVIX) tablet 75 mg 75 mg, Oral, DAILY, First dose on 04/26/24 at 1315, Until Discontinued 1313 (Given - Provider: Jared Whitley, BRET) 0825 (Given - Provider: Jared Whitley, BRET) enoxaparin (LOVENOX) injection 40 mg 40 mg, SubCUTAneous, DAILY, First dose on 04/26/24 at 1200, Until Discontinued, Indication of Use: Prophylaxis-DVT/PE, Administer by deep subCUTAneous injection with pt lying down. Alternate injection sites on abdominal wall. Do not rub site after injection. Check with provider prior to any invasive procedure. 1259 (Given - Provider: Jared Whitley RN) 0823 (Given - Provider: Jared Whitley RN) gabapentin (NEURONTIN) capsule 300 mg 300 mg, Oral, 2 times daily, First dose on 04/26/24 at 1315, Until Discontinued 1313 (Given - Provider: Jared Whitley RN)204 (Given - Provider: Ziggy Macedo RN) 0824 (Given - Provider: Jared Whitley RN)2100 (Due) heparin (porcine) injection 2,500 Units (COMPLETED) 2,500 Units, IntraVENous, ONCE, 1 dose, On 04/26/24 at 1415, Regular heparinization: 1000 units/hour x 2.5 hrs = 2500 units 1515 (Given - Provider: Noy Chong RN) heparin (porcine) injection 4,000 Units (COMPLETED) 4,000 Units, IntraVENous, ONCE, 1 dose, On 04/26/24 at 1415, Regular heparinization: 4000 units bolus 1516 (Given - Provider: Noy Chong RN) hydrALAZINE (APRESOLINE) tablet 100 mg (CANCELED) 100 mg, Oral, 2 TIMES DAILY, First dose on 04/26/24 at 1300, Until Discontinued 1259 (Given - Provider: Jared Whitley RN) hydrALAZINE (APRESOLINE) tablet 100 mg 100 mg, Oral, EVERY 8 HOURS SCHEDULED (3 times per day), First dose on 04/26/24 at 1400, Until Discontinued 1257 (Not Given - Provider: Jared Whitley RN - Reason: Other - Comment: duplicate order)2234 (Given - Provider: Ziggy Macedo RN) 0609 (Given - Provider: Ziggy Macedo RN)1400 (Due)2200 (Due) levothyroxine (SYNTHROID) tablet 100 mcg 100 mcg, Oral, 2 TIMES DAILY, First dose (after last modification) on 04/26/24 at 2100, Until Discontinued, Tube feeding (TF) interaction, obtain physician order to manage, recommend holding TF for 30 minutes before and after dose. 2041 (Given - Provider: Ziggy Macedo RN) 823 (Given - Provider: Jared Whitley RN)2100 (Due) levothyroxine (SYNTHROID) tablet 50 mcg (CANCELED) 50 mcg, Oral, 2 TIMES DAILY, First dose on 04/26/24 at 1315, Until Discontinued, Tube feeding (TF) interaction, obtain physician order to manage, recommend holding TF for 30 minutes before and after dose. 131 (Given - Provider: Jared Whitley RN) lisinopril (PRINIVIL;ZESTRIL) tablet 10 mg 10 mg, Oral, 2 TIMES DAILY, First dose on 04/26/24 at 1300, Until Discontinued 1259 (Given - Provider: Jared Whitley RN)2042 (Given - Provider: Ziggy Macedo RN) 823 (Given - Provider: Jared Whitley RN)2100 (Due) lisinopril (PRINIVIL;ZESTRIL) tablet 10 mg 10 mg, Oral, 2 times daily, First dose on 04/26/24 at 1315, Until Discontinued 1250 (Held by provider - Provider: An Martins MD - Reason: Other)1315 (Automatically Held)2100 (Automatically Held) 0900 (Automatically Held)2100 (Automatically Held) nicotine (NICODERM CQ) 21 MG/24HR 1 patch 1 patch, TransDERmal, Administer over 24 Hours, DAILY, First dose on 04/26/24 at 1300, For 3 days, Apply new patch to nonhairy, clean, dry skin on the upper body or upper outer arm. Rotate patch sites. Notify pharmacy if patient or provider prefers patch to be removed at bedtime and replaced in the morning. Hazardous Medication -- Refer to facility policy for handling and disposal. 1259 (Patch Applied - Provider: Jared Whitley RN) 0822 (Patch Removed - Provider: Jared Whitley RN)0823 (Patch Applied - Provider: Jared Whitley RN) sodium chloride flush 0.9 % injection 5-40 mL 5-40 mL, IntraVENous, EVERY 12 HOURS SCHEDULED (2 times per day), First dose on 04/26/24 at 2100, Until Discontinued, For Line Patency: Peripheral IV = 5 mL; Midline or Central Line = 10 mL/lumen. If following IV push medication, administer flush at same rate as the IV push. Flush volume is determined by type of infusion therapy being given. For non-viscous solutions use: Peripheral IV = 5 mL Midline or Central Line = 10 mL/lumen For viscous solutions (i.e. blood components, parenteral nutrition, contrast media, or after obtaining blood sample) use: Peripheral IV = 10 mL Midline or Central Line = 20 mL/lumen 2043 (Not Given - Provider: Ziggy Macedo RN - Reason: Other - Comment: double entry) 0826 (Given - Provider: Jared Whitley RN)2100 (Due) PRN Medication Order 04/25/2024 04/26/2024 04/27/2024 0.9 % sodium chloride infusion IntraVENous, at 5-250 mL/hr, PRN, if patient receiving piggyback infusions and maintenance fluids are not ordered OR KVO fluids to protect IV site / prevent frequent line interruptions/ long duration, Starting on 04/26/24 at 1128, For piggyback infusion, administer at same rate as piggyback for a total of 25 mL. Enter 25 mL into dose field and piggyback rate into rate field of order. If piggyback is infusing at a rate less than 100 mL/hr, enter 25 mL into dose field and 100 mL/hr into rate field of order. For KVO fluids, enter rate of 20 mL/hr or less into rate field of order. acetaminophen (TYLENOL) suppository 650 mg(Linked Group 1) 650 mg, Rectal, EVERY 6 HOURS PRN, Starting on 04/26/24 at 1128, Until Discontinued, Pain Mild (1-3), Fever, For temp greater than 100.4 F (38 C), Administer if oral route cannot be used. acetaminophen (TYLENOL) tablet 650 mg(Linked Group 1) 650 mg, Oral, EVERY 6 HOURS PRN, Starting on 04/26/24 at 1128, Until Discontinued, Pain Mild (1-3), Fever, For temp greater than 100.4 F (38 C), Maximum dose of acetaminophen is 4000 mg from all sources in 24 hours. albuterol (PROVENTIL) (2.5 MG/3ML) 0.083% nebulizer solution 2.5 mg 2.5 mg, Nebulization, EVERY 2 HOURS PRN, Starting on 04/26/24 at 1135, Until Discontinued, Wheezing, Initiate RT Bronchodilator Protocol: Yes - Inpatient Protocol magnesium sulfate 2000 mg in 50 mL IVPB premix 2,000 mg, IntraVENous, at 25 mL/hr, Administer over 2 Hours, PRN, Other, Per IV Magnesium Replacement Protocol, Starting on 04/26/24 at 1128, Mg Lab Replacement Action 1.4-1.6 2 gram IVPB x 1 doses (2 gram Total) 1.0-1.3 2 gram IVPB x 2 doses (4 gram Total) less than 1.0 CALL PHYSICIAN and 2 gram IVPB x 2 doses (4 gram Total) Infuse at 1 gram/hr Repeat Mag level 1 hour after final administration Protocol not for use in Patients with CrCl less than 30mL/min ondansetron (ZOFRAN) injection 4 mg(Linked Group 2) 4 mg, IntraVENous, EVERY 6 HOURS PRN, Starting on 04/26/24 at 1128, Until Discontinued, Nausea, Vomiting, Administer if oral route cannot be used. ondansetron (ZOFRAN-ODT) disintegrating tablet 4 mg(Linked Group 2) 4 mg, Oral, EVERY 8 HOURS PRN, Starting on 04/26/24 at 1128, Until Discontinued, Nausea, Vomiting polyethylene glycol (GLYCOLAX) packet 17 g 17 g, Oral, DAILY PRN, Starting on 04/26/24 at 1128, Until Discontinued, Constipation, First line therapy for constipation potassium chloride 10 mEq/100 mL IVPB (Peripheral Line)(Linked Group 3) 10 mEq, IntraVENous, PRN, Starting on 04/26/24 at 1128, Until Discontinued, at 100 mL/hr, Per IV Potassium Replacement Protocol, Use when central line is not available for replacement. K Lab Replacement Action 3.1-3.5 10 mEq IVPB x 4 doses (40 mEq Total) 2.7-3.0 10 mEq IVPB x 6 doses (60 mEq Total) less than 2.7 CALL PHYSICIAN and 10 mEq IVPB x 6 doses (60 mEq Total) Infuse at 10 mEq/hr Repeat Potassium lab 1 hour after final administration. Protocol not for use in Patients with CrCl less than 30mL/min potassium chloride 20 mEq/50 mL IVPB (Central Line)(Linked Group 3) 20 mEq, IntraVENous, PRN, Starting on 04/26/24 at 1128, Until Discontinued, at 50 mL/hr, Per IV Potassium Replacement Protocol, Use first line when central line is available for replacement. K Lab Replacement Action 3.1-3.5 20 mEq IVPB x 2 doses (40 mEq Total) 2.7-3.0 20 mEq IVPB x 3 doses (60 mEq Total) less than 2.7 CALL PHYSICIAN and 20 mEq IVPB x 3 doses (60 mEq Total) Infuse at 20 mEq/hr Repeat Potassium lab 1 hour after final administration. Protocol not for use in Patients with CrCl less than 30mL/min sodium chloride flush 0.9 % injection 5-40 mL 5-40 mL, IntraVENous, PRN, Starting on 04/26/24 at 1128, Until Discontinued, Line Care, After every IV line use, For Line Patency: Peripheral IV = 5 mL; Midline or Central Line = 10 mL/lumen. If following IV push medication, administer flush at same rate as the IV push. Flush volume is determined by type of infusion therapy being given. For non-viscous solutions use: Peripheral IV = 5 mL Midline or Central Line = 10 mL/lumen For viscous solutions (i.e. blood components, parenteral nutrition, contrast media, or after obtaining blood sample) use: Peripheral IV = 10 mL Midline or Central Line = 20 mL/lumen 2042 (Given - Provider: Ziggy Macedo RN) sodium phosphate 15 mmol in sodium chloride 0.9 % 250 mL IVPB 15 mmol, IntraVENous, at 83.3 mL/hr, Administer over 180 Minutes, PRN, Phosphate IV Replacement, Starting on 04/26/24 at 1135, Phos level Replacement Action 1.5 to 2.7 mg/dL 15 mmol IVPB over 3 hours LESS than 1.5 mg/dL CALL PHYSICIAN and 15 mmol IVPB over 3 hours Repeat Phos level 1 hour after administration Protocol not for use in Patients with CrCl less than 30mL/min Linked Groups Order Group 1: acetaminophen (TYLENOL) tablet 650 mgJump to med 650 mg, Oral, EVERY 6 HOURS PRN, Starting on 04/26/24 at 1128, Until Discontinued, Pain Mild (1-3), Fever, For temp greater than 100.4 F (38 C)
Maximum dose of acetaminophen is 4000 mg from all sources in 24 hours.
Or acetaminophen (TYLENOL) suppository 650 mgJump to med 650 mg, Rectal, EVERY 6 HOURS PRN, Starting on 04/26/24 at 1128, Until Discontinued, Pain Mild (1-3), Fever, For temp greater than 100.4 F (38 C)
Administer if oral route cannot be used.
Group 2: ondansetron (ZOFRAN-ODT) disintegrating tablet 4 mgJump to med 4 mg, Oral, EVERY 8 HOURS PRN, Starting on 04/26/24 at 1128, Until Discontinued, Nausea, Vomiting Or ondansetron (ZOFRAN) injection 4 mgJump to med 4 mg, IntraVENous, EVERY 6 HOURS PRN, Starting on 04/26/24 at 1128, Until Discontinued, Nausea, Vomiting
Administer if oral route cannot be used.
Group 3: potassium chloride 20 mEq/50 mL IVPB (Central Line)Jump to med 20 mEq, IntraVENous, PRN, Starting on 04/26/24 at 1128, Until Discontinued, at 50 mL/hr, Per IV Potassium Replacement Protocol
Use first line when central line is available for replacement. K Lab Replacement Action 3.1-3.5 20 mEq IVPB x 2 doses &n bsp;& nbsp; (40 mEq Total) 2.7-3.0 20 mEq IVPB x 3 doses &n bsp;& nbsp; (60 mEq Total) less than 2.7 CALL PHYSICIAN and &nbs p;&nb sp; 20 mEq IVPB x 3 doses &n bsp;& nbsp; (60 mEq Total) Infuse at 20 mEq/hr Repeat Potassium lab 1 hour after final administration. Protocol not for use in Patients with CrCl less than 30mL/min
Or potassium chloride 10 mEq/100 mL IVPB (Peripheral Line)Jump to med 10 mEq, IntraVENous, PRN, Starting on 04/26/24 at 1128, Until Discontinued, at 100 mL/hr, Per IV Potassium Replacement Protocol
Use when central line is not available for replacement. K Lab Replacement Action 3.1-3.5 10 mEq IVPB x 4 doses &nbs p;&nb sp; (40 mEq Total) 2.7-3.0 10 mEq IVPB x 6 doses &n bsp;& nbsp; (60 mEq Total) less than 2.7 CALL PHYSICIAN and &n bsp;& nbsp; 10 mEq IVPB x 6 doses &n bsp;& nbsp; (60 mEq Total) Infuse at 10 mEq/hr Repeat Potassium lab 1 hour after final administration. Protocol not for use in Patients with CrCl less than 30mL/min
FOR RECORDS PERTAINING TO PATIENTS WHO ARE [...] BE BASED ON THE PRIMARY CLINICAL RECORDS. [facility] [employer] [facility]. provides no warranty or guarantee of the accuracy or completeness of information in this document.
[2025-02-24] MEDS: SUCCINYLCHOLINE CHLORIDE 200 MG/10 ML MDV 100 MG IV ×2 (04:17→04:30)
--- NOTE | 2025-02-24 04:20 | ECG_ITS ---
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 Measurements Intervals [place] Rate: 123 P: 38 NE: 198 QRS: 61 QRSD: 88 T: 100 QT: 310 QTc: 383 Interpretive Statements 1120 Sinus tachycardia [address] depression [address] & [place] abnormality 9150 abnormal ECG Compared to ECG 05/27/2024 06:31:34 ST (T wave) deviation still present Electronically Signed On 02-24-2025 17:53:23 EDT by KIRK MARINELLI M.D.
[2025-02-24 04:29] LABS: Basophils Absolute Auto 0.1 10^3/uL (0.0-0.1); Basophils Percent Auto 1.1 % (0.2-2.0); Eosinophils Absolute Auto 0.3 10^3/uL (0.0-0.7); Hematocrit 35.3 % (42.0-54.0); Hemoglobin 10.3 g/dL (14.0-18.0); Immature Granulocytes Abs Auto 0.24 10^3/uL (0.00-0.03); Immature Granulocytes Pct Auto 1.9 % (0.0-0.5); Lymphocytes Absolute Auto 4.1 10^3/uL (1.2-3.8); Lymphocytes Percent Auto 32.1 % (20.5-60.0); Mean Corpuscular HGB Conc 29.2 g/dL (29.9-35.2); Mean Corpuscular Hemoglobin 27.9 pg (25.9-34.0); Mean Corpuscular Volume 95.7 fL (80.0-94.0); Mean Platelet Volume 9.7 fL (9.5-13.5); Monocytes Absolute Auto 0.9 10^3/uL (0.3-0.8); Monocytes Percent Auto 6.9 % (1.7-12.0); Neutrophils Absolute Auto 7.2 10^3/uL (1.4-6.5); Platelet Count 524 10^3/uL (150-450); Red Blood Count 3.69 10^6/uL (4.70-6.10); Red Cell Distribution Width 15.1 % (11.0-15.0); White Blood Count 12.9 10^3/uL (4.0-11.0)
[2025-02-24] MEDS: PROPOFOL 1,000 MG/100 ML VIAL 5.987 MG IV (04:31)
[2025-02-24 04:57] LABS: Alanine Aminotransferase 17 U/L (16-63); Albumin Globulin Ratio 0.9; Albumin Level 3.3 g/dL (3.4-5.0); Alkaline Phosphatase 147 U/L (46-116); Anion Gap 18.3; Aspartate Amino Transferase 17 U/L (15-37); BUN Creatinine Ratio 5.2; Bilirubin Total 0.4 mg/dL (0.2-1.0); Calcium 9.4 mg/dL (8.5-10.1); Carbon Dioxide 24.7 mmol/L (21.0-32.0); Chloride 97 mmol/L (98-107); Estimated GFR (African America 5 (>=60 mL/min/1.73m^2); Estimated GFR (Non-African Ame 4 (>=60 mL/min/1.73m^2); Globulin 3.7 g/dL; Glucose 210 mg/dL (74-106); Sodium 135 mmol/L (136-145); Troponin I High Sensitivity 30.6 pg/mL (4.0-76.1)
[2025-02-24 05:01] LABS: NT Pro B Type Natriuretic Pept >35000.0 pg/mL (<=900.0)
--- NOTE | 2025-02-24 05:03 | ED.SOB1 ---
HPI - SOB/Dyspnea General Chief Complaint: Shortness of Breath/Dyspnea Stated Complaint: RESPIRATORY DISTRESS Time Seen by Provider: 02/24/25 04:20 Source comment: EMS Mode of arrival: ambulance Limitations: other Limitations comment: Patient unresponsive being bagged History of Present Illness HPI Narrative: This 54-year-old male with a history of respiratory failure and chronic kidney failure who is on dialysis Sunday and Sunday is brought to the emergency department by EMS from home. The patient called his daughter this evening stating that he was short of breath and needed to go to the hospital. She states that she was home at that time and met him in the living room. He walked outside but was unable to walk any further. At that time she called 911 and requested EMS. Upon EMS arrival the patient was in respiratory distress. He was connected to the monitor and briefly lost his pulse. By the time he got back to the ambulance he had a pulse again. CPR was briefly initiated but discontinued. Upon arrival he was unresponsive with respiratory distress and agonal respirations. According to the patient's daughter he had a normal dialysis on Sunday but yesterday was extremely thirsty and was drinking a lot of fluid. The patient's daughter thinks that he accidentally drank too much fluid causing fluid overload. He was scheduled for dialysis this morning. Related Data Home Medications ?Medication ?Instructions ?Recorded ?Confirmed amlodipine 10 mg tablet 10 mg PO QDAY 05/21/23 02/08/24 atorvastatin 40 mg tablet 40 mg PO QDAY 05/21/23 02/08/24 carvedilol 25 mg tablet 25 mg PO Q12H 05/21/23 02/08/24 gabapentin 300 mg capsule 300 mg PO Q12H 05/21/23 02/08/24 hydralazine 100 mg tablet 100 mg PO Q12H 05/21/23 02/08/24 minoxidil 10 mg tablet 10 mg PO BID 05/21/23 02/08/24 clopidogrel 75 mg tablet 75 mg PO DAILY 02/08/24 02/08/24 isosorbide mononitrate 30 mg 30 mg PO DAILY 02/08/24 02/08/24 tablet,extended release 24 hr levothyroxine 112 mcg tablet 112 mcg PO DAILY 02/08/24 02/08/24 lisinopril 10 mg tablet 10 mg PO DAILY 02/08/24 02/08/24 sevelamer carbonate 800 mg tablet 2,400 mg PO Q8H 02/08/24 02/08/24 Previous Rx's ?Medication ?Instructions ?Recorded cephalexin 500 mg capsule 500 mg PO Q8H 7 days #21 caps 02/08/24 hydrocodone 5 mg-acetaminophen 325 1 tab PO Q4H PRN pain #10 tabs 02/08/24 mg tablet sulfamethoxazole 800 1 tab PO BID 7 days #14 tabs 02/08/24 mg-trimethoprim 160 mg tablet (Bactrim DS) cephalexin 500 mg capsule 500 mg PO QID 10 days #40 caps 02/04/25 hydrocodone 5 mg-acetaminophen 325 1 tab PO Q6H PRN pain 5 days #20 02/04/25 mg tablet tabs sulfamethoxazole 800 1 tab PO BID 10 days #20 tabs 02/04/25 mg-trimethoprim 160 mg tablet (Bactrim DS) Allergies Allergy/AdvReac Type Severity Reaction Status Date / Time No Known Drug Allergies Allergy Verified 05/21/23 14:25 Review of Systems ROS Status of ROS unobtainable due to medical condition [facility] Social History Smoking status: Heavy tobacco smoker Little interest or pleasure in doing things: not at all Feeling down, depressed, or hopeless: not at all Exam Narrative Exam Narrative: Vital signs and Nursing Notes reviewed: Patient is hypothermic, tachycardic and hypertensive, pulse ox in the 80s to 90s upon arrival being bagged by EMS General: Poorly responsive adult male with respiratory distress and agonal respirations HEENT: Normocephalic atraumatic, mucous membranes are moist, multiple decayed and decaying teeth Neck: Supple Chest: Coarse breath sounds with agonal respirations upon arrival CVS: Regular rate and rhythm tachycardic with pulse in the 120s ABD: Soft, nondistended, nontender, no rebound guarding or rigidity, large healed midline abdominal incision Extremities: Moving all extremities, trace lower extremity swelling, fistula in left arm with bruit and thrill Skin: Pale, diaphoretic, peeling skin on hands Neuro: Moving all extremities Constitutional Vital Signs, click to edit/add: Last Vital Signs Temp 97.3 F L 02/24/25 06:04 Pulse 91 H 02/24/25 06:40 Resp 24 H 02/24/25 06:04 BP 114/73 02/24/25 06:40 Pulse Ox 100 02/24/25 06:40 O2 Del Method Ambu Bag 02/24/25 03:54 FiO2 80 02/24/25 05:24 Course Vital Signs Vital signs: Vital Signs Temperature 95.8 F L 02/24/25 03:50 Pulse Rate 129 H 02/24/25 03:50 Respiratory Rate 24 H 02/24/25 03:50 Blood Pressure 205/137 H 02/24/25 03:50 Pulse Oximetry 98 02/24/25 03:50 Oxygen Delivery Method Ambu Bag 02/24/25 03:50 Temperature 97.3 F L 02/24/25 06:04 Pulse Rate 91 H 02/24/25 06:40 Respiratory Rate 24 H 02/24/25 06:04 Blood Pressure 114/73 02/24/25 06:40 Pulse Oximetry 100 02/24/25 06:40 Oxygen Delivery Method Ambu Bag 02/24/25 03:54 Fraction of Inspired Oxygen 80 02/24/25 05:24 MDM - SOB/Dyspnea MDM Narrative Medical decision making narrative: This 54-year-old male with a history of kidney failure and respiratory failure in the past requiring intubation is brought to the emergency department by EMS from home. History is provided by the patient's daughter who states that he was drinking a lot more water yesterday than he usually does. He is due for dialysis today. His dialysis is on Tuesdays and Saturdays. He did not miss dialysis on Sunday. His daughter states that his dry weight was even down. He became acutely short of breath throughout the night and EMS was called. Upon EMS arrival he was in respiratory distress. Upon arrival he was being bagged. He was intubated after multiple attempts with a 7 oh endotracheal tube. OG tube was placed. Confirmation was performed by CO2 detection and chest x-ray that showed the endotracheal tube above the jhoan. His blood pressure was markedly elevated upon arrival. After he was intubated and sedated with propofol his blood pressure came down and his pulse came down. EKG was performed after he was stabilized this is a sinus tachycardia at 123 bpm with hyperacute T waves and otherwise nonspecific ST changes. It did not show any acute STEMI. Chest x-ray shows acute pulmonary edema. I do not appreciate any localizing pneumonia. Blood gas shows a respiratory acidosis with a pH of 7.08 and PCO2 of 80.4. White count is mildly elevated at 12.9 hemoglobin is 10.3. Sodium is 135. Potassium is 5. CO2 is 24.7. BUN is 68 and creatinine is 12.96 with a potassium of 5. Troponin is normal at 30. I did preemptively order treatment for hyperkalemia which was withheld after his potassium result was 5.0. BNP is markedly elevated greater than 35,000 in keeping with acute pulmonary edema and respiratory failure. The family request transfer to [facility] or [facility]. He is accepted for transfer to the ICU at [facility] by Dr Hampton. Medical Records Attestation: I reviewed the patient's medical records. Lab Data Attestation: I reviewed the patient's lab results. Labs: Lab Results 02/24/25 02/24/25 Range/Units 04:00 05:00 WBC 12.9 H (4.0-11.0) 10^3/uL RBC 3.69 L (4.70-6.10) 10^6/uL Hgb 10.3 L (14.0-18.0) g/dL Hct 35.3 L (42.0-54.0) % MCV 95.7 H (80.0-94.0) fL MCH 27.9 (25.9-34.0) pg MCHC 29.2 L (29.9-35.2) g/dL RDW 15.1 H (11.0-15.0) % Plt Count 524 H (150-450) 10^3/uL MPV 9.7 (9.5-13.5) fL Neut % (Auto) 56.0 (43.0-75.0) % Lymph % (Auto) 32.1 (20.5-60.0) % [place] % (Auto) 6.9 (1.7-12.0) % Eos % (Auto) 2.0 (0.9-7.0) % Baso % (Auto) 1.1 (0.2-2.0) % Neut # (Auto) 7.2 H (1.4-6.5) 10^3/uL Lymph # (Auto) 4.1 H (1.2-3.8) 10^3/uL [place] # (Auto) 0.9 H (0.3-0.8) 10^3/uL Eos # (Auto) 0.3 (0.0-0.7) 10^3/uL Baso # (Auto) 0.1 (0.0-0.1) 10^3/uL Abs Immat Gran (auto) 0.24 H (0.00-0.03) 10^3/uL Imm/Tot Granulo (auto) 1.9 H (0.0-0.5) % Puncture Site R femoral ABG pH 7.080 L* (7.350-7.450) ABG pCO2 80.4 H* (35.0-45.0) mmHg ABG pO2 428.0 H (80.0-100.0) mmHg ABG HCO3 23.8 (22.0-26.0) mmol/L ABG O2 Saturation 98.1 % ABG Base Excess -6.2 L (-2.0-2.0) mmol/L [place] Test Positive (POSITIVE) Vent Mode A/c FiO2 100 % Expiratory Pressure 5 Tidal Volume 500 Sodium 135 L (136-145) mmol/L Potassium 5.0 (3.5-5.1) mmol/L Chloride 97 L (98-107) mmol/L Carbon Dioxide 24.7 (21.0-32.0) mmol/L Anion Gap 18.3 BUN 68.0 H (7.0-18.0) mg/dL Creatinine 12.96 H* (0.70-1.30) mg/dL Est GFR ( Amer) 5 L (>=60 mL/min/1.73m^2) Est GFR (Non-Af Amer) 4 L (>=60 mL/min/1.73m^2) BUN/Creatinine Ratio 5.2 Glucose 210 H (74-106) mg/dL Calcium 9.4 (8.5-10.1) mg/dL Total Bilirubin 0.4 (0.2-1.0) mg/dL AST 17 (15-37) U/L ALT 17 (16-63) U/L Alkaline Phosphatase 147 H (46-116) U/L Troponin I High Sens 30.6 (4.0-76.1) pg/mL NT-Pro-B Natriuret Pep >75708.0 H* (<=900.0) pg/mL Total Protein 7.0 (6.4-8.2) g/dL Albumin 3.3 L (3.4-5.0) g/dL Globulin 3.7 g/dL Albumin/Globulin Ratio 0.9 ABG Data Attestation: I personally reviewed and interpreted this ABG as follows: (Respiratory acidosis with a pH of 7.08 and PCO2 of 80.4) ECG Data Attestation: I personally reviewed and interpreted this ECG as follows: (Sinus tachycardia at 123 bpm, nonspecific ST changes with ST depressions in leads II, V5 and V6, peaked T waves are noted in lead V3 and V4, no acute ST segment elevation) Critical Care Time Critical Care Time Total Critical Care Time: 45 Attestation: This patient presents in extremis with respiratory distress/respiratory failure. High probability of sudden and clinically significant deterioration in his condition and his presentation he required the highest level of my preparedness to intervene urgently. I provided critical care time including documentation time medication orders and management reevaluation vital sign assessment ordering and reviewing of lab tests ordering reviewing of x-ray studies and consultation with transferring physician. Aggregate critical care time is 45 minutes including time during which I was engaged in work only directed to his care and did not include time spent treating other patients simultaneously Discharge Plan Discharge Chief Complaint: Shortness of Breath/Dyspnea Clinical Impression: Acute hypercapnic respiratory failure, Acute on chronic kidney failure, Pulmonary edema due to fluid overload Patient Disposition: [facility] Time of Disposition Decision: 05:13 Discharge Location: [facility] Mode of Transportation: EMS Procedures ED Procedure Instructions Procedures Procedures: Patient was intubated with a 7.0 [place] endotracheal tube after multiple attempts ultimately requiring glide scope assistance. After intubation bilateral breath sounds and CO2 detection was used for confirmation. X-ray shows the endotracheal tube above the jhoan. He was sedated with 2 rounds of 20 mg of IV etomidate, after successful intubation he was paralyzed with succinylcholine and a propofol drip was initiated. Peripheral IV placement, an 18-gauge Angiocath was placed into the right external jugular vein by myself for blood draws and administration of medications. Patient tolerated procedure well.
[2025-02-24 05:07] LABS: HCO3 ABG 23.8 mmol/L (22.0-26.0)
[2025-02-24 05:08] LABS: Allen Test POSITIVE (POSITIVE); Base Excess ABG -6.2 mmol/L (-2.0-2.0); Fractionated Inspired Oxygen 100 %; O2 Mode VENTILATOR; Oxygen Saturation ABG 98.1 %; Pos End Expiratory Pressure 5; Puncture Site R FEMORAL; Rate 16; Tidal Volume 500; Vent Mode A/C
[2025-02-24 05:10] LABS: ABG PCO2 80.4 mmHg (35.0-45.0)
--- NOTE | 2025-02-24 05:11 | PC.NURSE ---
DR Lin and patient's nurse informed of critical ABG- PH=7.080, and PCO2= 80.4
[2025-02-24] MEDS: FENTANYL CITRATE/PF 1,000 MCG in 0.9 % SODIUM CHLORIDE 80 ML 10 MCG IV (05:24)
[2025-02-24] MEDS: MIDAZOLAM HCL 2 MG/2 ML VIAL 4 MG IV (05:36)
[2025-02-24] MEDS: PROPOFOL 1,000 MG/100 ML VIAL 20.956 MG IV (08:46)
--- NOTE | 2025-02-24 08:47 | PC.NURSE ---
[facility] arrives for transport.
--- NOTE | 2025-02-24 09:28 | PC.NURSE ---
Report called to BRET Rueda at [facility] ICU.
== END 2025-02-24 09:32 | disposition short-term general hospital (02) ==
PROVIDERS: Emergency Provider Emergency Medicine; PCP Nurse Practitioner Family
DX: J96.02 Acute respiratory failure with hypercapnia (principal); N17.9 Acute kidney failure, unspecified; N18.6 End stage renal disease; Z99.2 Dependence on renal dialysis; F17.200 Nicotine dependence, unspecified, uncomplicated; J81.1 Chronic pulmonary edema; E87.70 Fluid overload, unspecified
CPT/HCPCS: 31500; 36415; 36600; 51702; 71045; 80053; 82805; 83880; 84484; 85025; 93005; 94002; 96365; 96366; 96368; 96375; 99285; J0330; J2250; J2704; J3010

== ENCOUNTER 2025-03-21 01:44 | Emergency (ER) | payer OTHER, SELFPAY ==
[2025-03-21 01:48] VITALS: BP 177/91; PULSE 107; TEMP 37.3; O2SAT 99; BMI 27.9
--- OUTSIDE RECORDS SUMMARY | 2025-03-21 01:56 | XMS_ITS | CCD ---
Author Organization [facility] Care Team Providers Care [employer] Name Role Phone Ace Marr Unavailable Unavailable Ace Marr Unavailable Unavailable Vivian Motta Attending Provider Shantell Osei Primary Care Provider [phone] Vivian Motta Attending Provider Shantell Osei Primary Care Provider [phone] Ace Marr Unavailable Unavailable Unavailable Maria Esther, Junior Unavailable Shantell Osei Unavailable Patrice Levine Unavailable Iván Govea Unavailable JENNA AVILA Admitting Unavailable NAJENNA CORTEZ Attending Unavailable UNKNOWN, PHYSICIAN Primary Care Unavailable UNKNOWN, PHYSICIAN Referring Unavailable JUSTIN AVILAIER Surgeon Unavailable ND Procedure Practitioner Unavailab Monica Grimes Unavailable KISHOR [...] Unavailable MARIA ESTHER, JUNIOR Attending Unavailable SHANTELL SOEI Primary Care Unavailable MARIA ESTHER, JUNIOR Consulting Unavailable SEA, SHANTELL Primary Care Unavailable HIRAL ZAMARRIPAID Admitting Unavailable DALLIN, NAILA Attending Unavailable JANELLE BOBBY Consulting Unavailable Ludmila Joseph Consulting Unavailable SEA, SHANTELL Primary Care Unavailable MARKER, DR RUVALCABA Admitting Unavailable MARKER, DR RUVALCABA Attending Unavailable ASIYAJANELLE Consulting Unavailable MARKER, DR RUVALCABA Consulting Unavailable SHANONRESANDRA HORTON Consulting Unavailable MARIA ESTHER, JUNIOR Admitting Unavailable [...] MOHAMAD Consulting Unavailable BAKHOUS, AZIZ Admitting Unavailable BAKHOUSDEREKIZ Attending Unavailable SEA, SHANTELL Primary Care Unavailable BAKHOUS, AZIZ Consulting Unavailable SELENE, DR WARNER Admitting Unavailable SELENE, DR WARNER Attending Unavailable SEA, SHANTELL Primary Care Unavailable SELENE, DR WARNER Consulting Unavailable MARIA ESTHER, JUNIOR Admitting Unavailable MARIA ESTHER, JUNIOR Attending Unavailable SEA, SHANTELL Primary Care Unavailable MARIA ESTHER, JUNIOR Consulting Unavailable SEA, SHANTELL Primary Care Unavailable ANNETTE RODGERS Admitting Unavailable ANA MARIA, ANNETTE Attending Unavailable JANELLE BOBBY Consulting Unavailable SEA, [...] Admitting Unavailable MARKER, DR RUVALCABA Attending Unavailable JANELLE BRADEN Consulting Unavailable VIVIAN MCKEON Consulting Unavailable MARIA [...] Unavailable THEO, DR PRADO Admitting Unavailable Sea, BLEACHER PULP-C Shantell Primary Care Provider MD Patrice Levine Attending Provider MD Gerber Short Attending Provider Raissa Oh Unavailable Asaad, Imad Unavailable Donya Mccann Unavailable JOLENE Osei-Radha Stinson Primary Care Provider U MD Percy Perera Admit Provider MD Irwin Theodore Attending Provider MD Toby Venegas Other Provider MD Patrice Levine Attending Provider MD Patrice Levine Attending Provider [phone] JOLENE Osei-Radha Stinson Primary Care Provider U MD Junior Chiu Attending Provider [phone] MD Toby Venegas Attending Provider Unavailable Primary Care Provider UnavailLive Marie Unavailable CARLOS OseiC Shantell Primary Care Provider U MD Junior Chiu Attending Provider MD Toby Venegas Attending Provider [phone] NO FAMILY, PHYSICIAN Primary Care Provider Unava ilable MD Toby Venegas Other Provider KARYNA Kowalski-Radha Vieira Other Provider Unavailable MD Junior Mayo Other Provider MD Baudilio Hoyos Other Provider MD Raul Malave Other Provider MD Iván Govea Other Provider MD [facility]rera [facility] Jersey Sharp Attending Provider JOLENE Osei- Shantell Primary Care Provider MD Junior Mayo Attending Provider Sea TRONCOSO, Shantell Unavailable Sea [facility]-, Shantell Primary Care Provider Toby Venegas MD Attending Provider [phone] Ace Marr DO Primary Care Provider Iván Govea MD Attending Provider Junior Mayo MD Attending Provider DARBY SANCHES Attending Unavailable ALLSION SERRANO Attending Unavailable Iván Govea MD Attending Provider Junior Mayo MD Attending Provider NO FAMILY, PHYSICIAN Primary Care Provider Unava ilable Sea BLEACHER PULP-BC, Shantell Primary Care Provider Toby Venegas MD Attending Provider [phone] Gerber Short MD Attending Provider Roxie DEWITT, Norm Robertson Unavailable ALGHOTHANI, MOHAMAD Referring Unavailable VIJENDRA, RIANNA Attending Unavailable VIOLET, TYRONE Referring Unavailable VIOLET, TYRONE Referring Unavailable ALGHOTHANI, MOHAMAD Admitting Unavailable ALGHOTHANI, MOHAMAD Attending Unavailable VIOLET, TYRONE Referring Unavailable ALGHOTHANI, MOHAMAD Attending Unavailable SANABRIA, DARINUN Attending Unavailable ALGHOTHANI, MOHAMAD Attending Unavailable ALGHOTHANI, MOHAMAD Referring Unavailable SANABRIA, NATHANIEL Attending Unavailable ALGHOTHANI, MOHAMAD Attending Unavailable ALGHOTHANI, MOHAMAD Attending Unavailable MOUKARBELKIRK Attending Unavailable MARKER, JORDON J Referring Unavailable DEYANIRA, YOUNGSOOK Admitting Unavailable DEYANIRA, YOUNGSOOK Attending Unavailable DEYANIRA, YOUNGSOOK Referring Unavailable Arben DEWITT, Irwin Admit Provider Arben DEWITT, Irwin Attending Provider Theo DEWITT, Toby Other Provider Meghana WASHER MACHINE-C, Isha Other Provider Unavailable Maria Esther DEWITT, Junior Other Provider Xuan DEWITT, Iván Other Provider Xin Burdick APRN Other Provider Pablo Valdez MD Other Provider [phone] Silva DEWITT, Ignacio Danielson Other Provider Gomez Montes MD Other Provider Louis Bell DO Other Provider Rey Romero DO Other Provider Zane DEWITT, Teri Other Provider Cruz DEWITT, Jassi Fraga Other Provider Aquiles DEWITT, Fatuma Other Provider Alfonzo DEWITT, Vanda Johansen Other Provider JOLENE OSEI Primary Care Kely Partida Attending Unavailable JOLENE OSEI Primary Care Kely Partida Attending Unavailable Elashi, Essam Admitting Unavailable Elashi, Essam Attending Unavailable Endy Oseiie Primary Care Unavailable Elashi, Essam Consulting Unavailable Arben, Irwin Admitting Unavailable Lawson Theodorei Attending Unavailable Sea Shantell Primary Care Unavailable Isha Kowalski Consulting Unavailable Maria Esther, Junior Consulting Unavailable Bakhous, Aziz Consulting Unavailable Xin Burdick Consulting Unavailable Pablo Valdez Consulting Unavaila Ignacio Carias Consulting Unavailable Gomez Montes Consulting Unavailable Louis Bell Consulting Unavailable Rey Romero Consulting Unavailable Zane, Basem Consulting Unavailable Jassi Arroyo Consulting Un available [place], Bashar Consulting Unavailable Vanda Mejía Consulting Unavaila ble Bakhous, Aziz Admitting Unavailable Bakhous, Aziz Attending Unavailable Maria Esther, Junior Admitting Unavailable Maria Esther, Junior Attending Unavailable NO FAMILY, PHYSICIAN Primary Care Unavailable Elashi, Essam Admitting Unavailable Elashi, Essam Attending Unavailable Shantell Osei Primary Care Unavailable Shantell Osei Primary Care Unavailable Gerber Short Admitting Unavailable Gerber Short Attending Unavailable Elashi, Essam Attending Unavailable Endy Oseiie Primary Care Unavailable Elashi, Essam Admitting Unavailable Unavailable Unavailable Unavailable Allergies Allergy Classification Reported Allergen(s) Allergy Type Date of Onset Reaction(s) Facility (20 sources) Contrast Allergy PreMed Pack Drug allergy Unknown [facility] Records Other (3 sources) Iodinated Contrast Media; Translations: [IODINATED CONTRAST MEDIA] Drug allergy (disorder) 0 [facility] Repository (1 source) Sulfonamides (Antibiotic) Propensity to adverse reactions to drug 6 [facility] Phone: (1 source) Iodine; Translations: [IODINE] Drug Allergy [facility] Repository (1 source) Sulfonamides (Antibiotic); Translations: [SULFA (SULFONAMIDE ANTIBIOTICS)] Propensity to adverse reactions to drug (disorder) 6 [facility] Repository (1 source) No Known Medication Allergies; Translations: [No Known Medication Allergies] Propensity to adverse reactions (disorder) [facility] Repository (2 sources) Iodinated Contrast Media Drug allergy (disorder) 4 [facility] Repository Medications Current Medications Medication Drug Class(es) Dates Sig (Normalized) Sig (Original) Acetaminophen (20 sources) Start: 04-26-2024 acetaminophen (TYLENOL) tablet 650 mg acetaminophen (T ylenol Extra Strength) 500 MG tablet every 6 (six) hours Active take 2 tablets by mo [facility] once daily in the morning as needed Acetaminophen 500 MG 2 tablet as needed Orally QAM Not-Taking [id number] 200 actuat albuterol 0.09 mg/actuat metered dose [...] 12 hrs for 10 day(s) Nov, Active aspirin 81 mg delayed release oral tablet (20 sources) Platelet Aggregation Inhibitor, Nonsteroidal Anti-inflammatory Drug Start: 5 Aspirin (Adult Low Dose Aspirin) 81 mg tablet,delayed release (DR/EC) Active 81 MG PO Daily February 23, 2025 12:00am Start: 04-26-2024 take 81 mg by mouth once daily 81 mg, Oral, DAILY, First dose on 04/26/24 at 1315, Until Discontinued Do not crush or break. take 1 tablet by [facility] once daily Aspirin 81 81 MG 1 tablet Orally Once a day Not-Taking Aspirin 81 MG TA BS Quantity: 0 Refills: 0 Ordered: 13-Jul-2021 DO Active atorvastatin 10 mg oral tablet (20 sources) HMG-CoA Reductase Inhibitor Start: 02-24-2025 take 1 tablet by mouth once daily Atorvastatin 10 mg tablet Active 10 MG PO Daily February 24, 2025 12:00am Start: 04-26-2024 take 10 mg by mouth once daily 10 mg, Oral, DAILY, First dose on 04/26/24 at 1315, Until Discontinued Start: 12-05-2021 End: 02-24-2025 take 1 tablet by mouth once daily Atorvastatin (Lipitor) 40 mg tablet Discontinued 40 MG PO Daily December 05, 2021 1:00am February 24, 2025 1:35pm TAKE 1 TABLET BY MOUTH EVERY DAY FOR 90 DAYS carvedilol 12.5 mg oral tablet (20 sources) alpha-Adrenergic Yulissa, beta-Adrenergic Yulissa Start: 02-24-2025 take 1 tablet by mouth twice daily Carvedilol 6.25 mg tablet Active 6.25 MG PO Twice daily February 24, 2025 12:00am Start: 02-24-2025 take 1 tablet by bobbi th twice daily Carvedilol 12.5 mg tablet Active 12.5 MG PO Twice daily February 24, 2025 12:00am Start: 10-24-2024 take 1 tablet by bobbi th twice daily Carvedilol 25 mg tablet Active [...] a day for 14 days Oct, Active clopidogrel 75 mg oral tablet (20 sources) [id number] Platelet Inhibitor Start: 02-23-2025 take 1 tablet by mouth once daily Clopidogrel 75 mg tablet Active 75 MG PO Daily February 23, 2025 12:00am Start: 04-26-2024 take 75 mg by mouth once daily 75 mg, Oral, DAILY, First dose on 04/26/24 at 1315, Until Discontinued Start: 12-05-2021 End: 08-24-2022 take 1 tablet by mouth once daily Clopidogrel (Plavix) 75 mg tablet Discontinued 75 MG PO Daily December 05, 2021 1:00am August 24, 2022 7:36am TAKE 1 TABLET BY MOUTH EVERY DAY FOR 90 DAYS cyclobenzaprine hydrochloride 10 mg oral tablet (6 [...] Start: 05-22-2023 take 1 capsule by mouth four times daily as needed for pain Gabapentin 300 mg capsule Active 300 MG PO Four times daily as needed for pain May 22, 2023 12:00am Start: 05-22-2023 take 1 capsule by mo [facility] twice daily Gabapentin 300 mg capsule Active [...] 07/15/2018 04/27/2024 Discontinued (Stop Taking at Discharge) 24 hr isosorbide mononitrate 30 mg extended release oral tablet (2 sources) Nitrate Vasodilator Start: 02-24-2025 take 1 tablet by mouth once daily, then take 1 tablet by mouth every twenty-four hours Isosorbide Mononitrate 30 mg tablet extended release 24 hr Active 30 MG PO Daily February 24, 2025 12:00am levothyroxine sodium 0.1 mg oral tablet (20 sources) l-Thyroxine Start: 02-24-2025 take 1 tablet by mouth once daily in the morning Levothyroxine 100 mcg tablet Active 100 MCG PO Daily February 24, 2025 12:00am FreeTextSig: TAKE 1 TABLET BY MOUTH EVERY MORNING ON AN EMPTY STOMACH orally qd; Note: Source Status: Taking; Refills: 1; Provider: Sea Damian Start: 04-26-2024 levothyroxine (SYNTHROID) tablet 100 mcg Start: 05-22-2023 End: 02-24-2025 Levothyroxine 112 mcg tablet Discontinued 100 MCG PO Daily January 14, 2024 11:20am February 24, 2025 1:34pm Start: 05-22-2023 End: 01-14-2024 take 100 ug [...] (20 sources) Angiotensin Converting Enzyme Inhibitor Start: 02-24-2025 take 1 tablet by mouth twice daily Lisinopril 10 mg tablet Active 10 MG PO Twice daily February 24, 2025 12:00am Start: 04-26-2024 take 10 mg by mouth twice jenny y 10 mg, Oral, 2 times daily, First dose on 04/26/24 at 1315, Until Discontinued Start: 04-17-2024 End: 02-24-2025 take 1 tablet by mouth twice daily Lisinopril 20 mg tablet Discontinued 0 .ROUTE .COMPLEX 180 April 17, 2024 7:43am February 24, 2025 1:38pm TAKE 1 TABLET BY MOUTH TWICE A [...] BY MOUTH EVERY DAY FOR 90 DAYS 50 ml magnesium sulfate 40 mg/ml injection (1 source) Start: 04-26-2024 magnesium sulfate 2000 mg in 50 mL IVPB premix methylPREDNISolone 4 mg oral tablet (2 sources) Corticosteroid Start: 05-15-2023 methylPREDNISolone 4 MG take half with breakfast, half with dinner Orally as directed for 6 May, Active midodrine hydrochloride 5 mg oral tablet (2 sources) alpha-Adrenergic Agonist Start: 02-24-2025 take 1 tablet by mouth three times weekly as needed Midodrine 5 mg tablet Active 5 MG PO .Three times a week as needed for during dialysis February 24, 2025 12:00am Nephro-Vianca 0.8 MG (10 sources) take 1 tablet by mouth once daily Nephro-Vianca 0.8 MG TAKE 1 TABLET BY MOUTH EVERY DAY for 90 Active take 1 tablet by mouth once jenny y Nephro-Vianca 0.8 MG TAKE 1 TABLET BY MOUTH EVERY DAY for 30 Active 24 hr nicotine 0.875 mg/hr transdermal system (3 sources) Cholinergic Nicotinic Agonist Start: 02-26-2025 apply 1 dose transdermal route every twenty-four hours Nicotine 21 mg/24 hr patch 24 hour Active 1 PATCH TRANSDERML Daily February 26, 2025 12:00am Start: 04-26-2024 End: 04-29-2024 nicotine (NICODERM CQ) 21 MG /24HR 1 patch ondansetron (ZOFRAN-ODT) disintegrating tablet 4 mg (1 source) Start: 04-26-2024 ondansetron (ZOFRAN-ODT) disintegrating tablet 4 mg polyethylene glycol 3350 49041 mg powder for oral solution (1 source) Osmotic Laxative Start: 04-26-2024 polyethylene glycol (GLYCOLAX) packet 17 g polyethylene glycol 3350 [id number] mg / potassium chloride 2970 mg / sodium bicarbonate 6740 mg / sodium chloride 5860 mg / sodium sulfate 35361 mg powder for oral solution (1 source) [...] day for 5 day(s) May, Active sennosides, long term 8.6 mg oral tablet (20 sources) Start: 12-15-2021 take 2 tablets by mouth every twenty-four hours Senna 8.6 MG 2 tablets at bedtime as needed Orally Once a day for 90 day(s) Dec, Active sevelamer carbonate 800 mg oral tablet (20 sources) Phosphate Binder Start: 07-11-2022 take 2 [...] % 250 mL IVPB sodium zirconium cyclosilicate 60688 mg powder for oral suspension (11 sources) [...] / oxyCODONE hydrochloride 5 mg oral tablet (16 sources) Opioid Agonist Start: 08-24-2022 End: 03-01-2023 [...] 04/26/24 at 1345, Until Discontinued Start: 01-09-2024 End: 02-26-2025 take 1 tablet by mouth once daily Amlodipine 5 mg tablet Discontinued 5 MG PO Daily January 09, 2024 12:00am February 26, 2025 2:51pm Start: 12-05-2021 End: 03-01-2023 take 1 tablet [...] 1 tablet Orally Once a day Not-Taking B Complex-Vitamin C-Folic Acid (Nephro-Vianca) 0.8 mg tablet (20 sources) Start: 03-01-2023 End: 02-26-2025 take 1 tablet by mouth once daily B Complex-Vitamin C-Folic Acid (Nephro-Vianca) 0.8 mg tablet Discontinued 1 TAB PO Daily March 01, 2023 12:00am February 26, 2025 2:44pm Start: 03-01-2023 take 1 tablet by bobbi [...] TAB PO Daily August 24, 2022 12:00am bisoprolol fumarate 10 mg oral tablet (7 [...] 04/26/2024 Discontinued (LIST CLEANUP) 168 hr cloNIDine 0.18841 mg/hr transdermal system (20 sources) Central alpha-2 [...] skin Transdermal [facility] clo[facility]IDine HCl - 0.1 MG Oral Tablet TAKE 1 TABLET 3 TIMES DAILY. Quantity: 0 Refills: 0 Ordered: 13-Jul-2021 DO Active take 3 tablets by [facility] every eight hours cloNIDine HCl 0.1 MG 3 tablet Orally tid for 90 day(s) Active take 3 tablets by [facility] every twelve hours cloNIDine HCl 0.1 MG 3 tablet Orally BID for 90 day(s) Active diclofenac sodium 75 mg delayed release oral tablet (2 sources) Nonsteroidal Anti-inflammatory Drug Start: 03-17-2020 take 1 tablet by mouth twice daily Diclofenac Sodium 75 MG Oral Tablet Delayed Release Take 1 tablet twice daily Quantity: 60 Refills: 5 Ordered: 17-Mar-2020 Ace Marr DO Start : 17-Mar-2020 Active diphenhydrAMINE hydrochloride 50 mg oral capsule (15 sources) Histamine-1 Receptor Antagonist Start: 03-01-2023 End: 05-22-2023 take 1 capsule by mouth once daily at bedtime Diphenhydramine Hcl 50 mg Capsule Discontinued 50 MG PO Daily at bedtime March 01, 2023 12:00am May 22, 2023 9:51am doxycycline hyclate 100 mg oral capsule (15 sources) Tetracycline-class Drug Start: 05-22-2023 End: 06-11-2023 [...] 15 mg 20 Mar, 2020 30 mg minoxidil 10 mg oral tablet (20 sources) Arteriolar Vasodilator Start: 04-11-2024 End: 02-24-2025 take 1 tablet by mouth twice daily Minoxidil 10 mg tablet Discontinued 0 .ROUTE .COMPLEX 180 April 11, 2024 11:11am February 24, 2025 1:39pm TAKE 1 TABLET BY MOUTH TWICE A [...] MG PO Daily July 10, 2022 11:00pm sertraline 25 mg oral tablet (20 sources) Serotonin Reuptake Inhibitor Start: 09-15-2021 End: 12-30-2021 take 1 tablet by mouth once daily Sertraline (Zoloft) 25 mg tablet Discontinued 25 MG PO Daily December 05, 2021 1:00am December 30, 2021 10:20am TAKE 1 TABLET BY MOUTH EVERY DAY Problems Active Problems Problem Classification Problem Date Documented Date Episodic/Chronic Acute and unspecified renal failure (16 sources) Uremia; Translations: [Unspecified kidney failure] 12-30-2021 Chronic Acute and unspecified renal failure (6 sources) Acute kidney failure, unspecified; Translations: [[id number] renal failure] Onset: 2 02-24-2025 Episodic Acute cerebrovascular disease (20 sources) Cerebrovascular accident; Translations: [Cerebral artery occlusion, unspecified with cerebral infarction] Onset: 1 Resolved: 1 Chronic Allergic reactions (1 source) Dermatitis, unspecified Episodic Calculus of urinary tract (20 sources) Kidney stone; Translations: [Calculus of kidney] Onset: 1 Resolved: 2 Episodic Cardiac arrest and ventricular fibrillation (5 sources) Cardiac arrest; Translations: [Cardiac arrest, cause unspecified] Onset: 5 02-24-2025 Chronic Chronic kidney disease (20 sources) Chronic kidney disease stage 3; Translations: [Chronic kidney disease, stage 3 (moderate)] Onset: 1 Resolved: 2 Chronic Comment on above: L FA Chronic kidney disease (20 sources) Chronic kidney disease; Translations: [Chronic kidney disease, stage III (moderate)] Onset: 1 Resolved: 2 Chronic obstructive pulmonary disease and bronchiectasis (20 sources) Acute exacerbation of chronic obstructive airways disease; Translations: [Chronic obstructive pulmonary disease with (acute) exacerbation] 03-01-2023 Chronic Complication of device; implant or graft (1 source) Thrombosis due to vascular prosthetic devices, implants and grafts, initial encounter; Translations: [Thrombosis due to vascular prosthetic devices, implants and grafts, initial encounter] Onset: 5 Chronic Congestive heart failure; nonhypertensive (6 sources) Acute on chronic diastolic heart failure; Translations: [Acute on chronic diastolic (congestive) heart failure] Onset: 4 04-26-2024 Chronic Coronary atherosclerosis and other heart disease (4 sources) Atherosclerotic heart disease of [place] coronary artery without angina pectoris; Translations: [Atherosclerotic heart disease of [place] coronary artery with unspecified angina pectoris] Onset: 4 Chronic Coronary atherosclerosis and other heart disease (2 sources) Presence of coronary angioplasty implant and graft; Translations: [Presence of coronary angioplasty implant and graft] Onset: 5 Episodic Deficiency and other anemia (20 sources) Anemia of renal disease; Translations: [Anemia in chronic kidney disease] 12-30-2021 Chronic Deficiency and other anemia (9 sources) Anemia in chronic kidney disease; Translations: [Anemia of renal disease D63.1] Onset: 1 Resolved: 2 Chronic Diseases of white blood cells (12 sources) Leukocytosis; Translations: [Elevated white blood cell [...] unspecified] Chronic Other aftercare (1 source) Other usp (current) drug therapy; Translations: [OTH HALF-WAY CURRENT DRUG THERAPY] Onset: 2 Episodic Other [...] Episodic Other diseases of kidney and ureters (18 sources) Secondary hyperparathyroidism; Translations: [Secondary hyperparathyroidism of renal origin] 12-30-2021 Chronic Other diseases of kidney and ureters (5 sources) Secondary hyperparathyroidism of renal origin; Translations: [Secondary hyperparathyroidism (of renal origin)] Onset: 5 05-22-2023 Chronic Other endocrine disorders (20 sources) Hyperparathyroidism; Translations: [Hyperparathyroidism, unspecified] 02-23-2025 Chronic Other endocrine disorders (7 sources) Hyperparathyroidism, unspecified; Translations: [Hyperparathyroidism E21.3] Onset: 1 Resolved: 2 Chronic Other eye disorders (20 sources) Vitreous floaters; Translations: [Other vitreous opacities, bilateral] 02-23-2025 Chronic Other gastrointestinal disorders (4 sources) Constipation, unspecified; Translations: [CONSTIPATION UNSPECIFIED] Onset: 2 Episodic Other inflammatory condition of skin (2 sources) Psoriasis plantaris; 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] 08-21-2024 Chronic Other lower respiratory disease (2 sources) Fluid overload pulmonary edema; Translations: [Chronic pulmonary edema] 02-24-2025 Chronic Other lower respiratory disease (3 sources) Chronic pulmonary edema; Translations: [Pulmonary congestion and hypostasis] Onset: 5 02-26-2025 Chronic Other lower respiratory disease (15 sources) Acute pulmonary edema; Translations: [Acute pulmonary edema] 03-01-2023 Episodic Other lower respiratory disease (3 sources) Acute pulmonary edema; Translations: [Acute edema of lung, unspecified] 01-09-2024 Episodic Other nervous system disorders (3 sources) Neuropathy; Translations: [Polyneuropathy, unspecified] 02-23-2025 Chronic Other nutritional; endocrine; and metabolic disorders (20 sources) Body mass index 30+ - obesity; Translations: [Body mass index (BMI) 31.0-31.9, adult] 02-23-2025 Chronic Other skin disorders (1 source) Sebaceous cyst Episodic Other skin disorders (1 source) Dyshidrosis [pompholyx] Episodic Peripheral and visceral atherosclerosis (2 sources) Peripheral vascular disease, unspecified; Translations: [Peripheral vascular disease, unspecified] Onset: 5 Chronic Residual codes; unclassified (20 sources) Obstructive sleep apnea syndrome; Translations: [Idiopathic sleep related nonobstructive alveolar hypoventilation] 02-23-2025 Chronic Residual codes; unclassified (7 sources) Obstructive sleep apnea (adult) (pediatric); Translations: [Obstructive sleep apnea (adult)(pediatric)] Onset: 2 Chronic Residual codes; unclassified (6 sources) Generalized aches and pains; Translations: [Generalized pain] Episodic Residual codes; unclassified (20 sources) Insomnia; Translations: [Insomnia, unspecified] Episodic Residual codes; unclassified (15 sources) Tobacco user; Translations: [Tobacco use] 03-01-2023 Episodic Respiratory failure; insufficiency; arrest (adult) (20 sources) Acute and chronic respiratory failure with hypercapnia; Translations: [Acute on chronic hypoxemic and hypercapnic respiratory failure] Onset: 5 03-01-2023 Chronic Skin and subcutaneous tissue infections (19 sources) Cellulitis; Translations: [Cellulitis, unspecified] 05-22-2023 Episodic [...] pericardial effusion (noninflammatory)] Onset: 5 Viral infection (5 sources) Plantar wart of left foot; Translations: [Plantar wart] Episodic Past or Other Problems Problem Classification Problem Date Documented Da te Episodic/Chronic Bacterial infection; unspecified site (1 source) Bacteremia; [...] Name Value Interpretation Reference Range Facility Potassiumon 03-10-2025 Potassium [Moles/Vol] 4.7 mmol/L Normal 3.5-5.1 [facility] Comment on above: Result Comment: PERF ORMED BY: [place] [address] PATHOLOGIST BODY AND FENDER WORKER YFN MARCUS M.D. Performed By: #### K #### [address] Potassium [Moles/volume] in Serum or PlasmaOrdered By: Toby Venegas on 03-10-2025 Potassium [Moles/Vol] Potassium [Moles/volume] in Serum or Plasma 3.5-5.1 [facility] A1C with Estimated Average Jaiden annn 02-26-2025 Glucose [Mass/Vol] 94 mg/dL Normal The On license of [facility] Comment on above: Order Comment: DRAW AT 0630 PER RN YURI PT BEEN AWAKE ALL NIGHT- [id number] Result Comment: PERF ORMED BY: [place] [address] PATHOLOGIST BODY AND FENDER WORKER IGNACIO MAGANA M.D. Performed By: #### P T, HS TROP, CBC #### [place] [id number] [facility] HbA1c (Bld) [Mass fraction] 4.9 % Normal 4.3-5.6 [facility] Comment on above: Order Comment: DRAW AT 0630 PER RN YURI PT BEEN AWAKE ALL NIGHT- [id number] Result Comment: Incr eased risk for diabetes: 5.7 - 6.4 diabetes: >6.4 glycemic control for adults with diabetes: <7.0 Performed By: #### P T, HS TROP, CBC #### [facility] [address] [place] [id number] [facility] Basic Metabolic Panelon 02-12 Anion gap [Moles/Vol] 19.5 mmol/L High 6.0-15.0 [facility] Comment on above: Order Comment: DRAW AT 0630 PER RN YURI PT BEEN AWAKE ALL NIGHT- [id number] Performed By: #### P T, HS TROP, CBC #### [facility] [address] Calcium [Mass/Vol] 8.9 mg/dL Normal 8.6-10.3 The On license of [facility] Comment on above: Order Comment: DRAW AT 0630 PER RN YURI PT BEEN AWAKE ALL NIGHT- [id number] Performed By: #### P T, HS TROP, CBC #### [facility] [address] Chloride [Moles/Vol] 92 mmol/L Low 98-107 [facility] Comment on above: Order Comment: DRAW AT 0630 PER RN YURI PT BEEN AWAKE ALL NIGHT- [id number] Performed By: #### P T, HS TROP, CBC #### [facility] [address] CO2 [Moles/Vol] 25.4 mmol/L Normal 21.0-31.0 [facility] Comment on above: Order Comment: DRAW AT 0630 PER RN YURI PT BEEN AWAKE ALL NIGHT- [id number] Performed By: #### P T, HS TROP, CBC #### [facility] [address] Creatinine [Mass/Vol] 10.05 mg/dL Significan t change up 0.70-1.30 [facility] Comment on above: Order Comment: DRAW AT 0630 PER RN YURI PT BEEN AWAKE ALL NIGHT- [id number] Performed By: #### P T, HS TROP, CBC #### [facility] [address] [place] [address] [place] Creatinine Clr Calc Pharmacy 8.74 Normal [facility] Comment on above: Order Comment: DRAW AT 0630 PER RN YURI PT BEEN AWAKE ALL NIGHT- [id number] Performed By: #### P T, HS TROP, CBC #### [facility] [address] [place] [address] [place] Estimated GFR 5.540 mL/Min Normal [facility] Comment on above: Order Comment: DRAW AT 0630 PER RN YURI PT BEEN AWAKE ALL NIGHT- [id number] Performed By: #### P T, HS TROP, CBC #### [facility] [address] [place] [address] [place] Glucose [Mass/Vol] 87 mg/dL Normal 70-100 The On license of [facility] Comment on above: Order Comment: DRAW AT 0630 PER RN YURI PT BEEN AWAKE ALL NIGHT- [id number] Result Comment: [place] Glucose Reference Range is dependent on time and content of last meal. Glucose of more than 200 mg/dL in a nonstressed, ambulatory subject supports the diagnosis of Diabetes Mellitus. ADA recommended reference range Performed By: #### P T, HS TROP, CBC #### [facility] [address] Potassium [Moles/Vol] 4.9 mmol/L Normal 3.5-5.1 [facility] Comment on above: Order Comment: DRAW AT 0630 PER RN YURI PT BEEN AWAKE ALL NIGHT- [id number] Performed By: #### P T, HS TROP, CBC #### [facility] [address] Sodium [Moles/Vol] 132 mmol/L Low 136-145 The [facility] Comment on above: Order Comment: DRAW AT 0630 PER RN YURI PT BEEN AWAKE ALL NIGHT- [id number] Performed By: #### P T, HS TROP, CBC #### [facility] [address] [place] [id number] [facility] Urea nitrogen [Mass/Vol] 54 mg/dL High 7-25 [facility] Comment on above: Order Comment: DRAW AT 0630 PER RN YURI PT BEEN AWAKE ALL NIGHT- [id number] Performed By: #### P T, HS TROP, CBC #### [facility] [address] [place] [id number] [facility] Blood estimated average gluc ose determination by estimation from glycated hemoglobinOrdered By: Irwin Theodore on 02-26-2025 Average glucose Estimated from glycated hemoglobin (Bld) [Mass/Vol] Glucose mean value [Mass/volume] in Blood Estimated from glycated hemoglobin [facility] Calcium [Mass/volume] in Ser um or PlasmaOrdered By: Irwin Theodore on 02-26-2025 Calcium [Mass/Vol] Calcium [Mass/volume ] in Serum or Plasma 8.6-10.3 [facility] Carbon dioxide, total [Moles /volume] in Serum or PlasmaOrdered By: Irwin Theodore on 02-26-2025 CO2 [Moles/Vol] Carbon dioxide, tota l [Moles/volume] in Serum or Plasma 21.0-31.0 [facility] Chloride [Moles/volume] in S timi or PlasmaOrdered By: Irwin Theodore on 02-26-2025 Chloride [Moles/Vol] Chloride [Moles/vol ume] in Serum or Plasma Low 98-107 [facility] Cholesterol [Mass/volume] in Serum or PlasmaOrdered By: Irwin Theodore on 02-26-2025 Cholesterol [Mass/Vol] Cholesterol [Mass/volume] in Serum or Plasma Low 140-200 [facility] Comment on above: Chol less than 200 m g/dl low riskChol 201-239 mg/dl borderline riskChol 240 mg/dl and greater high risk Cholesterol in HDL [Mass/vol ume] in Serum or PlasmaOrdered By: Irwin Theodore on 02-26-2025 Cholesterol in HDL [Mass/Vol] Serum or plasma high density lipoprotein (HDL) cholesterol measurement 23-92 [facility] Comment on above: HDL CHOL ATP-III CLA SSIFICATION Cardiovascular RiskHDL > or equal to 60 mg/dL LOWHDL < 40 mg/dL HIGH Cholesterol in LDL Calc [Mas s/Vol]Ordered By: Irwin Theodore on 02-26-2025 Cholesterol in LDL [Mass/Vol] Cholesterol in LDL [Mass/volume] in Serum or Plasma by calculation 0-100 [facility] Comment on above: LDL ATP III CLASSIFI CATIONLDL less than 100 mg/dL OptimalLDL 100-129 mg/dL Near or above optimalLDL 130-159 mg/dL Borderline highLDL 160-189 mg/dL HighLDL greater than 189 mg/dL Very high Cholesterol in VLDL Calc [Ma ss/Vol]Ordered By: Irwin Theodore on 02-26-2025 Cholesterol in VLDL [Mass/Vol] Cholesterol in VLDL [Mass/volume] in Serum or Plasma by calculation [facility] Creatinine [Mass/volume] in Serum or PlasmaOrdered By: Irwin Theodore on 02-26-2025 Creatinine [Mass/Vol] Creatinine [Mass/volume] in Serum or Plasma Significant change up 0.70-1.30 [facility] Comment on above: Delta: 7.00 on 02/25 Glucose [Mass/volume] in Ser um or PlasmaOrdered By: Irwin Theodore on 02-26-2025 Glucose [Mass/Vol] Glucose [Mass/volume ] in Serum or Plasma 70-100 [facility] Comment on above: ADA recommended refe rence rangeRandom Glucose Reference Range is dependent on time and content of last meal. Glucose of more than 200 mg/dL in a nonstressed, ambulatory subject supports the diagnosis of Diabetes Mellitus. Hemoglobin A1c/Hemoglobin.to coleman in BloodOrdered By: Irwin Theodore on 02-26-2025 HbA1c (Bld) [Mass fraction] Hemoglobin A1c percentage 4.3-5.6 [facility] Comment on above: Increased risk for d iabetes: 5.7 - 6.4diabetes: >6.4glycemic control for adults with diabetes: <7.0 Lipid Panelon 02-26-2025 Cholesterol [Mass/Vol] 128 mg/dL Low 140-200 [facility] e [facility] Comment on above: Order Comment: DRAW AT 0630 PER RN YURI PT BEEN AWAKE ALL NIGHT- [id number] Result Comment: Chol less than 200 mg/dl low risk Chol 201-239 mg/dl borderline risk Chol 240 mg/dl and greater high risk Performed By: #### P T, HS TROP, CBC #### [facility] [address] [place] [address] [place] Cholesterol in HDL [Mass/Vol] 41 mg/dL Normal 23-92 [facility] Comment on above: Order Comment: DRAW AT 0630 PER RN YURI PT BEEN AWAKE ALL NIGHT- [id number] Result Comment: HDL CHOL ATP-III CLASSIFICATION Cardiovascular Risk HDL > or equal to 60 mg/dL LOW HDL < 40 mg/dL HIGH Performed By: #### P T, HS TROP, CBC #### [facility] [address] [place] [address] [place] Cholesterol.total/Chol esterol in HDL [Mass ratio] 3.1 {ratio} Normal <5.0 [facility] Comment on above: Order Comment: DRAW AT 0630 PER RN YURI PT BEEN AWAKE ALL NIGHT- [id number] Performed By: #### P T, HS TROP, CBC #### [facility] [address] LDL Cholesterol,Calculated 62 mg/dL Normal 0-100 [facility] Comment on above: Order Comment: DRAW AT 0630 PER RN YURI PT BEEN AWAKE ALL NIGHT- [id number] Result Comment: LDL ATP III CLASSIFICATION LDL less than 100 mg/dL Optimal LDL 100-129 mg/dL Near or above optimal LDL 130-159 mg/dL Borderline high LDL 160-189 mg/dL High LDL greater than 189 mg/dL Very high Performed By: #### P T, HS TROP, CBC #### [facility] [address] Triglyceride w/Reflex 127 mg/dL Normal 0-149 [facility] Comment on above: Order Comment: DRAW AT 0630 PER RN YURI PT BEEN AWAKE ALL NIGHT- [id number] Result Comment: TRIG ATP III CLASSIFICATION TRIG less than 150 mg/dL Normal TRIG 150-199 mg/dL Borderline high TRIG 200-500 mg/dL High TRIG greater than 500 mg/dL Very high Standard traceable to the Center for Disease Conrtrol and Prevention (CDC) test method. Performed By: #### P T, HS TROP, CBC #### [address] VLDL CHOLESTEROL 25 mg/dL Normal [facility] Comment on above: Order Comment: DRAW AT 0630 PER RN YURI PT BEEN AWAKE ALL NIGHT- [id number] Performed By: #### P T, HS TROP, CBC #### [facility] [address] No Panel InformationOrdered By: Irwin Theodore on 02-26-2025 Estimated GFR (CKD-EPI) 5.540 mL/Min [facility] Creatinine Clearance (Chem 8.74 [facility] Potassium [Moles/volume] in Serum or PlasmaOrdered By: Irwin Theodore on 02-26-2025 Potassium [Moles/Vol] Potassium [Moles/volume] in Serum or Plasma 3.5-5.1 [facility] Serum or plasma anion gap de terminationOrdered By: Irwin Theodore on 02-26-2025 Anion gap [Moles/Vol] Serum or plasma an ion gap determination High 6.0-15.0 [facility] Serum or plasma total choles terol/high density lipoprotein (HDL) cholesterol mass ratOrdered By: Irwin Theodore on 02-26-2025 Cholesterol.total/Chol esterol in HDL [Mass ratio] Serum or plasma total cholesterol/high density lipoprotein (HDL) cholesterol mass rat <5.0 [facility] Sodium [Moles/volume] in Ser um or PlasmaOrdered By: Irwin Theodore on 02-26-2025 Sodium [Moles/Vol] Sodium [Moles/volume ] in Serum or Plasma Low 136-145 [facility] Thyroid Stimulating Hormoneo n 02-26-2025 TSH Qn 2.21 m[IU]/L Normal 0.45-5.33 [facility] Comment on above: Order Comment: DRAW AT 0630 PER BRET WELCH PT BEEN AWAKE ALL NIGHT- [id number] Result Comment: PERF ORMED BY: [place] [address] PATHOLOGIST BODY AND FENDER WORKER IGNACIO MAGANA M.D. Performed By: #### P T, HS TROP, CBC #### [address] Thyrotropin [Units/volume] i n Serum or PlasmaOrdered By: Irwin Theodore on 02-26-2025 TSH Qn Thyrotropin [Units/volume] in Serum or Plasma 0.45-5.33 [facility] Triglyceride [Mass/volume] i n Serum or PlasmaOrdered By: Irwin Theodore on 02-26-2025 Triglyceride [Mass/Vol] Triglyceride [Mass/volume] in Serum or Plasma 0-149 [facility] Comment on above: TRIG ATP III CLASSIF ICATIONTRIG less than 150 mg/dL NormalTRIG 150-199 mg/dL Borderline highTRIG 200-500 mg/dL High TRIG greater than 500 mg/dL Very highStandard traceable to the Center for Disease Conrtrol and Prevention (CDC) test method. Urea nitrogen [Mass/volume] in Serum or PlasmaOrdered By: Irwin Theodore on 02-26-2025 Urea nitrogen [Mass/Vol] Urea nitrogen [Mass/volume] in Serum or Plasma High 7 [facility] Alanine aminotransferase [En zymatic activity/volume] in Serum or PlasmaOrdered By: Irwin Theodore on 02-25-2025 ALT [Catalytic activity/Vol] Alanine aminotransferase [Enzymatic activity/volume] in Serum or Plasma [facility] Albumin [Mass/volume] in Ser um or Plasma by Bromocresol green (BCG) dye binding methoOrdered By: Irwin Theodore on 02-25-2025 Albumin BCG dye [Mass/Vol] Albumin [Mass/volume] in Serum or Plasma by Bromocresol green (BCG) dye binding metho 3.5-5.7 [facility] Alkaline phosphatase [Enzyma tic activity/volume] in Serum or PlasmaOrdered By: Irwin Theodore on 02-25-2025 ALP [Catalytic activity/Vol] Alkaline phosphatase [Enzymatic activity/volume] in Serum or Plasma 34-104 [facility] Arterial Blood Gason 025 ABG Base Excess 2.2 mmol/L Normal -3.0-3.0 [facility] Comment on above: Performed By: #### P T, HS TROP, CBC #### [facility] [address] ABG Frac Inspired O2 30 % Normal [facility] Comment on above: Performed By: #### P T, HS TROP, CBC #### [facility] [address] ABG Oxygen Content 5.9 mmol/L Low 6.6-9.7 The On [facility] Comment on above: Performed By: #### P T, HS TROP, CBC #### [facility] [address] ABG Oxygen Saturation 93.4 % Low 95.0-100.0 [facility] Comment on above: Performed By: #### P T, HS TROP, CBC #### [facility] [address] ABG PCO2 45.9 mm[Hg] High 35.0-45.0 [facility] Comment on above: Performed By: #### P T, HS TROP, CBC #### [address] ABG PEEP 5 cmH20 Normal [facility] Comment on above: Performed By: #### P T, HS TROP, CBC #### [address] ABG PH 7.40 Normal 7.35-7.45 [facility] Comment on above: Performed By: #### P T, HS TROP, CBC #### [address] ABG PO2 72.2 mm[Hg] Low 80.0-100.0 [facility] Comment on above: Performed By: #### P T, HS TROP, CBC #### [address] ABG TV 500 mL Normal [facility] Comment on above: Performed By: #### P T, HS TROP, CBC #### [address] Respiratory Critical Normal [facility] Comment on above: Result Comment: Crit ical Value called on: 02/25/2025 at 04:44 PERFORMED BY: [place] [address] PATHOLOGIST BODY AND FENDER WORKER IGNACIO MAGANA M.D. Performed By: #### P T, HS TROP, CBC #### [address] Set Respiratory Rate 14 Normal [facility] Comment on above: Performed By: #### P T, HS TROP, CBC #### [address] VBG Draw Site Right Brachial Normal [facility] Comment on above: Performed By: #### P T, HS TROP, CBC #### [address] Ventilator Mode AC Normal [facility] Comment on above: Performed By: #### P T, HS TROP, CBC #### [facility] [address] Arterial Blood GasOrdered By : Irwin Theodore on 02-25-2025 CO2 [Moles/Vol] 28.9 mmol/L High 23.0-27.[address] [facility] Comment on above: Performed By: #### P T, HS TROP, CBC #### [facility] [address] HCO3 (Bld) [Moles/Vol] 27.5 mmol/L Normal 23.0-29.0 [facility] Comment on above: Performed By: #### P T, HS TROP, CBC #### [facility] [address] [place] [address] Aspartate aminotransferase [ Enzymatic activity/volume] in Serum or PlasmaOrdered By: Irwin Theodore on 02-25-2025 AST [Catalytic activity/Vol] Aspartate aminotransferase [Enzymatic activity/volume] in Serum or Plasma 13-39 [facility] Basophils Auto (Bld) [#/Vol] Ordered By: Irwin Theodore on 02-25-2025 Basophils (Bld) [#/Vol] Automated basophil count 0.0-0.2 [facility] Basophils/100 WBC Auto (Bld) Ordered By: Irwin Theodore on 02-25-2025 Basophils/100 WBC (Bld) Automated basophil % . [facility] Bilirubin.total [Mass/volume ] in Serum or PlasmaOrdered By: Irwin Theodore on 02-25-2025 Bilirubin [Mass/Vol] Bilirubin.total [Mass/volume] in Serum or Plasma 0.3-1.0 [facility] Complete Blood Count Auto Di ffon 02-25-2025 Basophils (Bld) [#/Vol] 0.2 10*3/uL Normal 0.0-0.2 [facility] Comment on above: Result Comment: PERF ORMED BY: [place] [address] PATHOLOGIST BODY AND FENDER WORKER IGNACIO MAGANA M.D. Performed By: #### P T, HS TROP, CBC #### [address] Basophils/100 WBC (Bld) 2.3 % Normal . [facility] Comment on above: Performed By: #### P T, HS TROP, CBC #### [address] Eosinophils (Bld) [#/Vol] 0.2 10*3/uL Normal 0.0-0.45 [facility] Comment on above: Performed By: #### P T, HS TROP, CBC #### [address] Eosinophils/100 WBC (Bld) 2.5 % Normal . [facility] Comment on above: Performed By: #### P T, HS TROP, CBC #### [address] Erythrocyte distribution width (RBC) [Ratio] 16.8 % High 12.0-14.8 [facility] Comment on above: Performed By: #### P T, HS TROP, CBC #### [address] Hematocrit (Bld) [Volume fraction] 29.9 % Low 38.8-50.0 [facility] Comment on above: Performed By: #### P T, HS TROP, CBC #### [address] Hemoglobin (Bld) [Mass/Vol] 9.7 g/dL Low 13.0-17.0 [facility] Comment on above: Performed By: #### P T, HS TROP, CBC #### [place] [address] [place] Lymphocytes (Bld) [#/Vol] 0.7 10*3/uL Low 1.00-4.8 [facility] Comment on above: Performed By: #### P T, HS TROP, CBC #### [place] [address] [place] Lymphocytes/100 WBC (Bld) 9.6 % Normal . [facility] Comment on above: Performed By: #### P T, HS TROP, CBC #### [address] MCH (RBC) [Entitic mass] 28.4 pg Normal 27.5-35.2 [facility] Comment on above: Performed By: #### P T, HS TROP, CBC #### [address] MCV (RBC) [Entitic vol] 87.3 fL Normal 83.5-101 [facility] Comment on above: Performed By: #### P T, HS TROP, CBC #### [address] Mean Corpuscular HGB Conc 32.5 g/dL Normal 32.5-35.6 [facility] Comment on above: Performed By: #### P T, HS TROP, CBC #### [address] Monocytes (Bld) [#/Vol] 0.6 10*3/uL Normal 0.0-0.8 [facility] Comment on above: Performed By: #### P T, HS TROP, CBC #### [address] Monocytes/100 WBC (Bld) 8.4 % Normal . [facility] Comment on above: Performed By: #### P T, HS TROP, CBC #### [address] Neutrophils (Bld) [#/Vol] 5.9 10*3/uL Normal 1.8-7.7 [facility] Comment on above: Performed By: #### P T, HS TROP, CBC #### [address] Neutrophils/100 WBC (Bld) 77.2 % Normal . [facility] Comment on above: Performed By: #### P T, HS TROP, CBC #### [address] NRBC% 0.0 /100{WBC} Normal 0-0.5 [facility] Comment on above: Performed By: #### P T, HS TROP, CBC #### [address] Platelet mean volume (Bld) [Entitic vol] 7.3 fL Normal 6.6-10.1 [facility] Comment on above: Performed By: #### P T, HS TROP, CBC #### [address] Platelets (Bld) [#/Vol] 326 10*3/uL Normal 150-450 [facility] Comment on above: Performed By: #### P T, HS TROP, CBC #### [address] RBC (Bld) [#/Vol] 3.42 10*6/uL Low 3.90-5.60 [facility] Comment on above: Performed By: #### P T, HS TROP, CBC #### [address] WBC (Bld) [#/Vol] 7.7 10*3/uL Normal 4.1-10.5 [facility] Comment on above: Performed By: #### P T, HS TROP, CBC #### [address] Comprehensive Metabolic Pane fletcher 02-25-2025 Albumin [Mass/Vol] 3.7 g/dL Normal 3.5-5.7 The [facility] Comment on above: Performed By: #### K #### [address] Albumin/Globulin [Mass ratio] 1.7 {ratio} Normal [facility] Comment on above: Performed By: #### K #### [address] ALP [Catalytic activity/Vol] 84 U/L Normal 34-104 [facility] Comment on above: Performed By: #### K #### [address] ALT [Catalytic activity/Vol] 11 U/L Normal 7-52 [facility] Comment on above: Performed By: #### K #### [address] Anion gap [Moles/Vol] 18.2 mmol/L High 6.0-15.0 [facility] Comment on above: Performed By: #### K #### [address] AST [Catalytic activity/Vol] 13 U/L Normal 13-39 [facility] Comment on above: Performed By: #### K #### [address] Bilirubin [Mass/Vol] 0.4 mg/dL Normal 0.3-1.0 [facility] Comment on above: Performed By: #### K #### [address] Calcium [Mass/Vol] 9.1 mg/dL Normal 8.6-10.3 [facility] Comment on above: Performed By: #### K #### [address] Chloride [Moles/Vol] 95 mmol/L Low 98-107 [facility] Comment on above: Performed By: #### K #### [address] CO2 [Moles/Vol] 26.5 mmol/L Normal 21.0-31.0 [facility] Comment on above: Performed By: #### K #### [address] Creatinine [Mass/Vol] 7.00 mg/dL High 0.70-1.30 [facility] Comment on above: Performed By: #### K #### [address] Creatinine Clr Calc Pharmacy 12.55 Normal [facility] Comment on above: Performed By: #### K #### [address] Estimated GFR 8.550 mL/Min Normal [facility] Comment on above: Performed By: #### K #### [address] Globulin (S) [Mass/Vol] 2.2 g/dL Normal [facility] Comment on above: Performed By: #### K #### [address] Glucose [Mass/Vol] 74 mg/dL Normal 70-100 [facility] Comment on above: Result Comment: [place] Glucose Reference Range is dependent on time and content of last meal. Glucose of more than 200 mg/dL in a nonstressed, ambulatory subject supports the diagnosis of Diabetes Mellitus. ADA recommended reference range Performed By: #### K #### [address] Potassium [Moles/Vol] 4.7 mmol/L Normal 3.5-5.1 [facility] Comment on above: Performed By: #### K #### [address] Protein [Mass/Vol] 5.9 g/dL Low 6.4-8.9 The [facility] Comment on above: Performed By: #### K #### [address] Sodium [Moles/Vol] 135 mmol/L Low 136-145 The On license of [facility] Comment on above: Performed By: #### K #### [address] Urea nitrogen [Mass/Vol] 29 mg/dL High 7-25 [facility] Comment on above: Performed By: #### K #### [place] [address] [place] Eosinophils Auto (Bld) [#/Vo l]Ordered By: Irwin Theodore on 02-25-2025 Eosinophils (Bld) [#/Vol] Automated eosinophil count 0.0-0.45 [facility] Eosinophils/100 WBC Auto (Bl d)Ordered By: Irwin Theodore on 02-25-2025 Eosinophils/100 WBC (Bld) Automated eosinophil % . [facility] Erythrocyte distribution wid th Auto (RBC) [Ratio]Ordered By: Irwin Theodore on 02-25-2025 Erythrocyte distribution width (RBC) [Ratio] Erythrocyte distribution width [Ratio] by Automated count High 12.0-14.8 [facility] Globulin Calc (S) [Mass/Vol] Ordered By: Irwin Theodore on 02-25-2025 Globulin (S) [Mass/Vol] Serum globulin measurement by calculation (mass/volume) [facility] Glucose Glucometer (BldC) [M ass/Vol]Ordered By: Irwin Theodore on 02-25-2025 Glucose [Mass/Vol] Capillary blood gluc ose measurement by glucometer (mass/volume) [facility] Comment on above: Random Glucose Refer ence Range is dependent on time and content of last meal. Glucose of more than 200 mg/dL in a nonstressed, ambulatory subject supports the diagnosis of Diabetes Mellitus. Glucose Poct Glucometerson 0 02-25-2025 Glucose [Mass/Vol] 118 mg/dL Normal The On license of [facility] Comment on above: Result Comment: [place] Glucose Reference Range is dependent on time and content of last meal. Glucose of more than 200 mg/dL in a nonstressed, ambulatory subject supports the diagnosis of Diabetes Mellitus. PERFORMED BY: [facility] [address] [place] [address] PATHOLOGIST B[employer] WORKER IGNACIO MAGANA M.D. Performed By: #### G LUISABELLA #### Point of Care testing , Hematocrit Auto (Bld) [Volum e fraction]Ordered By: Irwin Theodore on 02-25-2025 Hematocrit (Bld) [Volume fraction] Hematocrit [Volume Fraction] of Blood by Automated count Low 38.8-50.0 [facility] Hemoglobin [Mass/volume] in BloodOrdered By: Irwin Theodore on 02-25-2025 Hemoglobin (Bld) [Mass/Vol] Hemoglobin [Mass/volume] in Blood Low 13.0-17.0 [facility] INR in Platelet poor plasma by Coagulation assayOrdered By: Irwin Theodore on 02-25-2025 INR Coag (PPP) [Relative time] INR in Platelet poor plasma by Coagulation assay [facility] Comment on above: INR Therapeutic Rang e A) Pre- and Peroperative OAT started two weeks before surgery. NOT HIP SURGERY: 1.5 - 2.5 HIP SURGERY: 2 - 3B) Primary and secondary prevention of venous THROMBOSIS: 2 - 3C) Active venous thrombosis, pulmonary embolismand prevention of recurrent venous thrombosis: 2 - 3D) Prevention of arterial thromboembolismincluding patients with mechanical heart valves: 3 - 4.5 Leukocytes [#/volume] correc bernardo for nucleated erythrocytes in Blood by Automated counOrdered By: Irwin Theodore on 02-25-2025 WBC corrected for nucl RBC Auto (Bld) [#/Vol] Leukocytes [#/volume] corrected for nucleated erythrocytes in Blood by Automated coun 4.1-10.5 [facility] Lymphocytes Auto (Bld) [#/Vo l]Ordered By: Irwin Theodore on 02-25-2025 Lymphocytes (Bld) [#/Vol] Lymphocytes [#/volume] in Blood by Automated count Low 1.00-4.8 [facility] Lymphocytes/100 WBC Auto (Bl d)Ordered By: Irwin Theodore on 02-25-2025 Lymphocytes/100 WBC (Bld) Lymphocytes/100 leukocytes in Blood by Automated count . [facility] MCH Auto (RBC) [Entitic mass ]Ordered By: Irwin Theodore on 02-25-2025 MCH (RBC) [Entitic mass] MCH [Entitic mass] by Automated count 27.5-35.2 [facility] MCHC Auto (RBC) [Mass/Vol]Or dered By: Irwin Theodore on 02-25-2025 MCHC (RBC) [Mass/Vol] MCHC [Mass/volume] by Automated count 32.5-35.6 [facility] MCV Auto (RBC) [Entitic vol] Ordered By: Irwin Theodore on 02-25-2025 MCV (RBC) [Entitic vol] MCV [Entitic volume] by Automated count 83.5-101 [facility] Magnesiumon 02-25-2025 Magnesium [Mass/Vol] 2.0 mg/dL Normal 1.9-2.7 [facility] Comment on above: Performed By: #### K #### [facility] [address] [place] [id number] [facility] Magnesium [Mass/volume] in S timi or PlasmaOrdered By: Daniel House on 02-25-2025 Magnesium [Mass/Vol] Magnesium [Mass/vol ume] in Serum or Plasma 1.9-2.7 [facility] Monocytes Auto (Bld) [#/Vol] Ordered By: Irwin Theodore on 02-25-2025 Monocytes (Bld) [#/Vol] Automated blood monocyte count 0.0-0.8 [facility] Monocytes/100 WBC Auto (Bld) Ordered By: Irwin Theodore on 02-25-2025 Monocytes/100 WBC (Bld) Automated monocyte % . [facility] Neutrophils Auto (Bld) [#/Vo l]Ordered By: Irwin Theodore on 02-25-2025 Neutrophils (Bld) [#/Vol] Neutrophils [#/volume] in Blood by Automated count 1.8-7.7 [facility] Neutrophils/100 WBC Auto (Bl d)Ordered By: Irwin Theodore on 02-25-2025 Neutrophils/100 WBC (Bld) Automated neutrophil % . [facility] No Panel InformationOrdered By: Irwin Theodore on 02-25-2025 Arterial Blood Base Excess 2.2 mmol/L -3.0-3.0 [facility] Arterial Blood Oxygen Content 5.9 mmol/L Low 6.6-9.7 [facility] Arterial Blood Oxygen Saturation 93.4 % Low 95.0-100.0 [facility] Arterial Blood Partial Pressure CO2 45.9 mm[Hg] High 35.0-45.0 [facility] Arterial Blood Partial Pressure O2 72.2 mm[Hg] Low 80.0-100.0 [facility] Arterial Blood pH 7.40 7.35-7.45 [facility] Blood Gas Critical Value See comment [facility] Comment on above: Critical Value corrales d on: 02/25/2025 at 04:44 Blood Gas PEEP 5 cmH2O [facility] Blood Gas Sample Site Right brachial [facility] Blood Gas Set Respiration Rate 14 [facility] Blood Gas Tidal Volume 500 mL Fi [facility] Blood Gas Ventilator Mode Ac [facility] FiO2 30 % [facility] Nucleated erythrocytes [Pres ence] in Blood by Automated countOrdered By: Irwin Theodore on 02-25-2025 Nucleated RBC Auto Ql (Bld) Nucleated erythrocytes [Presence] in Blood by Automated count 0-0.5 [facility] Phosphate [Mass/volume] in S timi or PlasmaOrdered By: Daniel House on 02-25-2025 Phosphate [Mass/Vol] Phosphate [Mass/vol ume] in Serum or Plasma High 2.5-4.5 [facility] Phosphoruson 02-25-2025 Phosphate [Mass/Vol] 5.6 mg/dL High 2.5-4.5 [facility] Comment on above: Performed By: #### K #### [address] Platelet mean volume Auto (B ld) [Entitic vol]Ordered By: Irwin Theodore on 02-25-2025 Platelet mean volume (Bld) [Entitic vol] Platelet mean volume [Entitic volume] in Blood by Automated count 6.6-10.1 [facility] Platelets Auto (Bld) [#/Vol] Ordered By: Irwin Theodore on 02-25-2025 Platelets (Bld) [#/Vol] Platelets [#/volume] in Blood by Automated count 150-450 [facility] Protein [Mass/volume] in Ser um or PlasmaOrdered By: Irwin Theodore on 02-25-2025 Protein [Mass/Vol] Protein [Mass/volume ] in Serum or Plasma Low 6.4-8.9 [facility] Prothrombin Time INRon 02-25 INR Coag (PPP) [Relative time] 1.0 {INR} Normal [facility] Comment on above: Result Comment: INR Therapeutic Range A) Pre- and Peroperative OAT started two weeks before surgery. NOT HIP SURGERY: 1.5 - 2.5 HIP SURGERY: 2 - 3 B) Primary and secondary prevention of venous THROMBOSIS: 2 - 3 C) Active venous thrombosis, pulmonary embolism and prevention of recurrent venous thrombosis: 2 - 3 D) Prevention of arterial thromboembolism including patients with mechanical heart valves: 3 - 4.5 PERFORMED BY: [place] [address] PATHOLOGIST [employer] WORKER IGNACIO MAGANA M.D. Performed By: #### P T, HS TROP, CBC #### [facility] [address] PT Coag (PPP) [Time] 11.2 s Normal 9.0-12.9 [facility] Comment on above: Result Comment: A he matocrit value greater than 55% may lead to inaccurate results in coagulation testing. Patients having hematocrit values >55% require a special collection tube for coagulation studies. Please contact the laboratory at [phone] for redraw instructions. Performed By: #### P T, HS TROP, CBC #### [facility] [address] Prothrombin time (PT)Ordered By: Irwin Theodore on 02-25-2025 PT Coag (PPP) [Time] Prothrombin time (PT) 9.0- 12.9 [facility] Comment on above: A hematocrit value g reater than 55% may lead to inaccurate results in coagulation testing. Patients having hematocrit values >55% require a special collection tube for coagulation studies. Please contact the laboratory at [phone] for redraw instructions. RBC Auto (Bld) [#/Vol]Ordere d By: Irwin Theodore on 02-25-2025 RBC (Bld) [#/Vol] Erythrocytes [#/volu me] in Blood by Automated count Low 3.90-5.60 [facility] Serum or plasma albumin/glob ulin mass ratioOrdered By: Irwin Theodore on 02-25-2025 Albumin/Globulin [Mass ratio] Serum or plasma albumin/globulin mass ratio [facility] Troponin I High Sensitivityo n 02-25-2025 Troponin I High Sensitivity 64 Off scale high 0-20 [facility] Comment on above: Result Comment: Crit ical Result : Called to and read back by: ANOOP HULL at: 02/25/2025 05:03:51 by:ANTHONY The Troponin units of report have been changed to meet the Chest Pain Accreditation requirement, element EC5.M1l2. Troponin units are changed from pg/ml to ng/L. Also, the decimal is removed and results are in whole numbers. PERFORMED BY: [place] [address] PATHOLOGIST [employer] WORKER IGNACIO MAGANA M.D. Performed By: #### P T, HS TROP, CBC #### [facility] [address] [place] [address] Troponin I.cardiac [Mass/vol ume] in Serum or Plasma by Detection limit <= 0.01 ng/Ordered By: Irwin Theodore on 02-25-2025 Troponin I.cardiac DL <= 0.01 ng/mL [Mass/Vol] Troponin I.cardiac [Mass/volume] in Serum or Plasma by Detection limit <= 0.01 ng/ Critically high 0-20 [facility] Comment on above: Critical Result : Ca lled to and read back by: ANOOP HULL at: 02/25/2025 05:03:51 by:CGThe Troponin units of report have been changed to meet the Chest Pain Accreditation requirement, element EC5.M1l2. Troponin units are changed from pg/ml to ng/L. Also, the decimal is removed and results are in whole numbers. Urate [Mass/volume] in Serum or PlasmaOrdered By: Daniel House on 02-25-2025 Urate [Mass/Vol] Urate [Mass/volume] in Serum or Plasma Low 4.4-7.6 [facility] Uric Acidon 02-25-2025 Urate [Mass/Vol] 3.5 mg/dL Low 4.4-7.6 [facility] Comment on above: Result Comment: PERF ORMED BY: [address] [place] [address] PATHOLOGIST B[employer] AND [employer] WORKER IGNACIO MAGANA M.D. Performed By: #### K #### [facility] [address] [place] [address] WBC Auto (Bld) [#/Vol]Ordere d By: Irwin Theodore on 02-25-2025 WBC (Bld) [#/Vol] Leukocytes [#/volume ] in Blood by Automated count 4.1-10.5 [facility] X-ray reportOrdered By: Jarett Hendrix on 02-25-2025 Study report [facility] [address] [place] [id number] XRay Report Signed Patient: Leander Decker MR#: [id number] : 1970 Acct:[id number] Age/Sex: 54 / M ADM Date: 5 Loc: 4C Room: [address] [place] [address] Type: ADM IN Attending Dr: Irwin Theodore MD Copies to: MD Pablo Mcgarry MD~ Ordering Provider: Pablo Valdez MD Date of Service: 02/25/25 XR/XR chest 1V portable: respiratory failure; pulmonary edema SINGLE VIEW CHEST CLINICAL HISTORY: Ventilator care. COMPARISON: Chest 02/24/2025 FINDINGS: Tubes are in unchanged positions. Heart and mediastinal structures appear unchanged. Degree of interstitial changes are similar to the prior study. No pneumothorax or free air. XR/XR chest 1V portable IMPRESSION: NO SIGNIFICANT CHANGE IN CHEST FINDINGS. Impression dictated by: Vj Hendrix Jr., D.O. 02/25/2025 9:14 AM Dictation Location: [place] [address] Transcribed By: [facility] 02/25/25913 Dictated By: Vj Hendrix Jr, DO 02/25/25 0913 Signed By: 02/25/25 0914 [facility] XR chest 1V portableon 02-25 XR chest 1V portable [facility] [address] [address] XRay Report Signed Patient: Leander Decker MR#: [id number] 2 : 1970 Acct:[id number] Age/Sex: 54 / M ADM Date: 02/24/25 Loc: 4C Room: [address] [place] [address] Type: ADM IN Attending Dr: Irwin Theodore MD Copies to: MD Pablo Mcgarry MD Ordering Provider: Pablo Valdez MD Date of Service: 02/25/25 XR/XR chest 1V portable: respiratory failure; pulmonary edema SINGLE VIEW CHEST CLINICAL HISTORY: Ventilator care. COMPARISON: Chest 02/24/2025 FINDINGS: Tubes are in unchanged positions. Heart and mediastinal structures appear unchanged. Degree of interstitial changes are similar to the prior study. No pneumothorax or free air. XR/XR chest 1V portable IMPRESSION: NO SIGNIFICANT CHANGE IN CHEST FINDINGS. Impression dictated by: Vj Hendrix Jr., DSandra 02/25/2025 9:14 AM Dictation Location: [facility]23 Transcribed By: [facility] 02/25/25913 Dictated By: Vj Hendrix Jr, DO 02/25/2513 Signed By: 02/25/25913 Normal [facility] Arterial Blood [place] 025 ABG Base Excess 3.4 mmol/L High -3.0-3.0 [facility] Comment on above: Performed By: #### K #### [address] ABG Frac Inspired O2 30 % Normal [facility] Comment on above: Performed By: #### K #### [address] ABG Oxygen Content 6.2 mmol/L Low 6.6-9.7 The On license [facility] Comment on above: Performed By: #### K #### [address] ABG Oxygen Saturation 97.4 % Normal 95.0-100.0 [facility] Comment on above: Performed By: #### K #### [address] ABG PCO2 35.0 mm[Hg] Normal 35.0-45.0 [facility] Comment on above: Performed By: #### K #### [address] ABG PEEP 5 cmH20 Normal [facility] Comment on above: Performed By: #### K #### [address] ABG PH 7.50 High 7.35-7.45 [facility] Comment on above: Performed By: #### K #### [address] ABG PO2 99.8 mm[Hg] Normal 80.0-100.0 [facility] Comment on above: Performed By: #### K #### [address] ABG TV 500 mL Normal [facility] Comment on above: Performed By: #### K #### [address] CO2 [Moles/Vol] 27.7 mmol/L High 23.0-27.0 [facility] Comment on above: Performed By: #### K #### [address] HCO3 (Bld) [Moles/Vol] 26.6 mmol/L Normal 23.0-29.0 T he [facility] Comment on above: Performed By: #### K #### [address] Respiratory Critical Normal [facility] Comment on above: Result Comment: Crit ical Value called on: 02/24/2025 at 17:10 PERFORMED BY: [place] [address] PATHOLOGIST B[employer] WORKER IGNACIO MAGANA M.D. Performed By: #### K #### [address] Set Respiratory Rate 20 Normal [facility] Comment on above: Performed By: #### K #### [address] VBG Draw Site Right Brachial Normal [facility] Comment on above: Performed By: #### K #### [address] Ventilator Mode AC Normal [facility] Comment on above: Performed By: #### K #### [address] ECG 12 lead ECGon 02-24-2025 ECG 12 lead ECG [facility] [place] [address] Electrocardiograph Report Signed Patient: Leander Decker MR#: [id number] 2 : 1970 Acct:[id number] Age/Sex: 54 / M ADM Date: 02/24/25 Loc: Room: [address] [place] [address] Type: DIS IN Attending Dr: Irwin Theodore MD Ordering Provider: Irwin Theodore MD Date of Service: 02/24/25 ECG/ECG 12 lead ECG: prn EKG Copies to: Test Reason : Blood Pressure : 134/81 mmHG Vent. Rate : 87 BPM Atrial Rate : 87 BPM P-R Int : 148 ms QRS Dur : 84 ms QT Int : 386 ms P-R-T Axes : 80 76 -36 degrees QTcB Int : 464 ms Normal sinus rhythm Right atrial enlargement Abnormal ECG When compared with ECG of 24-Feb-2025 12:04, No significant change was found Confirmed by BINA DEWITT [facility], JOHN ([id number]) on 02/27/2025 4:20:11 PM Referred By: Electronically Signed By: JOHN CURRAN MD [facility] Transcribed By: MUS Signed By John Curran MD, [facility] 02/27/25 1620 Normal [facility] ECG 12 lead ECG [facility] [place] [address] Electrocardiograph Report Signed Patient: Leander Decker MR#: [id number] 2 : 1970 Acct:[id number] Age/Sex: 54 / M ADM Date: 02/24/25 Loc: Room: [address] [place] [address] Type: ADM IN Attending Dr: Irwin Theodore MD Ordering Provider: Irwin Theodore MD Date of Service: 02/24/25 ECG/ECG 12 lead ECG: htn emergency Copies to: Test Reason : Blood Pressure : 120/72 mmHG Vent. Rate : 80 BPM Atrial Rate : 80 BPM P-R Int : 150 ms QRS Dur : 84 ms QT Int : 402 ms P-R-T Axes : 82 74 -23 degrees QTcB Int : 463 ms Normal sinus rhythm Nonspecific T wave abnormality Abnormal ECG When compared with ECG of 08-Jan-2024 23:26, T wave inversion now evident in Inferior leads T wave inversion now evident in Lateral leads Confirmed by BINA DEWITT [facility], [facility] ([id number]) on 02/24/2025 3:37:39 PM Referred By: Electronically Signed By: JOHN CURRAN MD [facility] Transcribed By: MUS Signed By John Curran MD, [facility] 02/24/25 1537 Normal [facility] Glucose Poct Glucometerson 0 02-24-2025 Glucose [Mass/Vol] 86 mg/dL Normal The On license of [facility] Comment on above: Result Comment: [facility] Glucose Reference Range is dependent on time and content of last meal. Glucose of more than 200 mg/dL in a nonstressed, ambulatory subject supports the diagnosis of Diabetes Mellitus. PERFORMED BY: [facility] [address] [facility] [place] [address] PATHOLOGIST BODY AND [employer] WORKER IGNACIO MAGANA M.D. Performed By: #### G LULS #### Point of Care testing , Glucose [Mass/Vol] 88 mg/dL Normal The On license of [facility] Comment on above: Result Comment: [facility] Glucose Reference Range is dependent on time and content of last meal. Glucose of more than 200 mg/dL in a nonstressed, ambulatory subject supports the diagnosis of Diabetes Mellitus. PERFORMED BY: [facility] [address] [facility] [place] [address] PATHOLOGIST B[employer] AND [employer] WORKER IGNACIO MAGANA M.D. Performed By: #### G LULS #### Point of Care testing , Glucose [Mass/Vol] 70 mg/dL Normal The On [facility] Comment on above: Result Comment: [facility] Glucose Reference Range is dependent on time and content of last meal. Glucose of more than 200 mg/dL in a nonstressed, ambulatory subject supports the diagnosis of Diabetes Mellitus. PERFORMED BY: [facility] [address] [place] [id number] PATHOLOGIST BODY AND [employer] WORKER IGNACIO MAGANA M.D. Performed By: #### P T, HS TROP, CBC #### [place] [id number] [facility] Glucose [Mass/Vol] 87 mg/dL Normal The On license [facility] Comment on above: Result Comment: [place] Glucose Reference Range is dependent on time and content of last meal. Glucose of more than 200 mg/dL in a nonstressed, ambulatory subject supports the diagnosis of Diabetes Mellitus. PERFORMED BY: [place] [address] PATHOLOGIST BODY AND [employer] WORKER IGNACIO MAGANA M.D. Performed By: #### P T, HS TROP, CBC #### [place] [id number] [facility] Troponin I High Sensitivityo n 02-24-2025 Troponin I High Sensitivity 76 Off scale high 0-20 [facility] Comment on above: Result Comment: Crit ical Result : Called to and read back by: BONG KOLB/Phil at: 02/24/2025 12:37:06 by:[id number] The Troponin units of report have been changed to meet the Chest Pain Accreditation requirement, element EC5.M1l2. Troponin units are changed from pg/ml to ng/L. Also, the decimal is removed and results are in whole numbers. PERFORMED BY: [place] [address] PATHOLOGIST BODY AND [employer]ER WORKER IGNACIO MAGANA M.D. Performed By: #### H S TROP #### [place] [id number] [facility] X-ray reportOrdered By: Luis Medeiros on 02-24-2025 Study report [facility] [address] [place] [id number] XRay Report Signed Patient: Leander Decker MR#: [id number] : 1970 Acct:[id number] Age/Sex: 54 / M ADM Date: 5 Loc: Room: [address] [place] [address] Type: ADM IN Attending Dr: Irwin Theodore MD Copies to: MD Pablo Mcgarry MD~ Ordering Provider: Pablo Valdez MD Date of Service: 02/24/25 XR/XR chest 1V portable: respiratory failure; pulmonary edema Plain film chest Single view HISTORY: Ventilated patient. Respiratory failure COMPARISON: 02/24/2025 FINDINGS: SUPPORT DEVICES: Tubes unchanged POSTSURGICAL CHANGES: None HEART: Similar cardiomegaly PULMONARY ELENI: Prevascular congestion MEDIASTINUM: Unremarkable LUNGS AND PLEURA: Improving pulmonary edema. No pleural effusion or pneumothorax. BONY STRUCTURES: Intact ADDITIONAL FINDINGS None XR/XR chest 1V portable IMPRESSION: Tubes unchanged. Improved vascular congestion and pulmonary edema. Impression dictated by: Gerber Medeiros M.D. 02/24/2025 4:29 PM Dictation Location: [facility] Transcribed By: [facility] 02/24/25 1629 Dictated By: Gerber Medeiros DO 02/24/25 1620 Signed By: 02/24/25 1629 [facility] XR chest 1V portableon 02-24 XR chest 1V portable [facility] [place] [address] XRay Report Signed Patient: Leander Decker MR#: [id number] 2 : 1970 Acct:[id number] Age/Sex: 54 / M ADM Date: 02/24/25 Loc: Room: [address] [place] [address] Type: ADM IN Attending Dr: Irwin Theodore MD Copies to: MD Pablo Mcgarry MD Ordering Provider: Pablo Valdez MD Date of Service: 02/24/25 XR/XR chest 1V portable: respiratory failure; pulmonary edema Plain film chest Single view HISTORY: Ventilated patient. Respiratory failure COMPARISON: 02/24/2025 FINDINGS: SUPPORT DEVICES: Tubes unchanged POSTSURGICAL CHANGES: None HEART: Similar cardiomegaly PULMONARY ELENI: Prevascular congestion MEDIASTINUM: Unremarkable LUNGS AND PLEURA: Improving pulmonary edema. No pleural effusion or pneumothorax. BONY STRUCTURES: Intact ADDITIONAL FINDINGS None XR/XR chest 1V portable IMPRESSION: Tubes unchanged. Improved vascular congestion and pulmonary edema. Impression dictated by: Gerber Medeiros M.D. 02/24/2025 4:29 PM Dictation Location: [facility] Transcribed By: [facility] 02/24/25 1629 Dictated By: Gerber Medeiros DO 02/24/25 1620 Signed By: 02/24/25 1629 Normal [facility] Potassiumon 02-05-2025 Potassium [Moles/Vol] 4.4 mmol/L Normal 3.5-5.1 [facility] Comment on above: Result Comment: PERF ORMED BY: [place] [address] PATHOLOGIST [employer]ODY [employer] WORKER IGNACIO MAGANA M.D. Performed By: #### K #### [address] [address] [place] Potassium [Moles/volume] in Serum or PlasmaOrdered By: Toby Venegas on 02-05-2025 Potassium [Moles/Vol] Potassium [Moles/volume] in Serum or Plasma 3.5-5.1 [facility] Potassiumon 11-15-2024 Potassium [Moles/Vol] 4.6 mmol/L Normal 3.5-5.1 [facility] Comment on above: Result Comment: PERF ORMED BY: [place] [address] PATHOLOGIST B[employer] AND [employer] WORKER IGNACIO MAGANA M.D. Performed By: #### K #### [address] [address] [place] Potassium [Moles/volume] in Serum or PlasmaOrdered By: Junior Mayo on 11-15-2024 Potassium [Moles/Vol] Potassium [Moles/volume] in Serum or Plasma 3.5-5.1 [facility] Blood Cultureon 11-11-2024 Bacteria identified Cx Nom (Bld) NO GROWTH 5 DAYS PERFORMED BY: [address] [place] [id number] PATHOLOGIST BODY AND [employer]ENDER WORKER IGNACIO MAGANA M.D. Normal [facility] Comment on above: Performed By: #### P T, HS TROP, CBC #### [address] Bacteria identified Cx Nom (Bld) NO GROWTH 5 DAYS PERFORMED BY: [place] [address] PATHOLOGIST B[employer] AND [employer]ENDER WORKER IGNACIO MAGANA M.D. Normal [facility] Comment on above: Performed By: #### C UBLD #### [address] Laboratory - Microbiology an d Antimicrobial susceptibilityOrdered By: Iván Govea on 11-11-2024 Bacteria identified Cx Nom (Bld) NO GROWTH 5 DAYS [facility] Bacteria identified Cx Nom (Bld) NO GROWTH 5 DAYS [facility] Potassiumon 10-31-2024 Potassium [Moles/Vol] 5.2 mmol/L High 3.5-5.1 [facility] Comment on above: Result Comment: PERF ORMED BY: [place] [address] PATHOLOGIST BODY AND FENDER WORKER IGNACIO MAGANA M.D. Performed By: #### P T, HS TROP, CBC #### [place] [id number] [facility] Potassium [Moles/volume] in Serum or PlasmaOrdered By: Toby Venegas on 10-31-2024 Potassium [Moles/Vol] Potassium [Moles/volume] in Serum or Plasma High 3.5-5.1 [facility] BASIC METABOLIC PANELon 12-1 Anion gap [Moles/Vol] 21 mmol/L High 7-20 [facility] Comment on above: Performed By: #### L [id number] ####[facility] (BEAKER)[address] [place] [address] Calcium [Mass/Vol] 9.3 mg/dL Normal 8.6-10.3 [facility] Comment on above: Performed By: #### L [id number] ####[facility] [place] [address] Chloride [Moles/Vol] 95 mmol/L Low 98-107 [facility] Comment on above: Performed By: #### L [id number] ####[facility] [place] [address] CO2 [Moles/Vol] 24 mmol/L Normal 21-31 [facility] Comment on above: Performed By: #### L [id number] ####[facility] ([facility])[address] [place] [address] Creatinine [Mass/Vol] 11.42 mg/dL High 0.70-1.30 [facility] Comment on above: Performed By: #### L [id number] ####[facility] ([facility])[address] [place] [address] GLOMERULAR FILTRATION RATE ML/MIN/1.73 SQ M.PREDICTED 4.8 mL/min/1.73m*2 Low >60.0 [facility] Comment on above: Result Comment: [facility]???s estimated glomerular filtration rate (eGFR) will [...] of individuals. Performed By: #### L [id number] ####[facility] [place] [address] Glucose [Mass/Vol] 76 mg/dL Normal 70-100 [facility] Comment on above: Performed By: #### L [id number] ####[facility] [place] [address] Potassium [Moles/Vol] 5.6 mmol/L High 3.5-5.1 [facility] Comment on above: Performed By: #### L [id number] ####[facility] (BESHEILA)[address] [place] [address] Sodium [Moles/Vol] 134 mmol/L Low 136-145 [facility] Comment on above: Performed By: #### L [id number] ####[facility] (SHEILA)[address] [place] [address] Urea nitrogen [Mass/Vol] 51 mg/dL High 7-25 [facility] Comment on above: Performed By: #### L [id number] ####[facility] ([facility])[address] [place] [address] UREA NITROGEN/CREATININE (MASS RATIO) IN SER/PLAS 4.5 Normal [facility] Comment on above: Performed By: #### L [id number] ####[facility] (SHEILA)[address] [place] [address] CBC WITH AUTO DIFFERENTIALon 09-23-2024 Basophils (Bld) [#/Vol] 0.05 10*3/uL Normal 0.00-0.20 [facility] Comment on above: Performed By: #### L [id number] ####[facility] (SHEILA)[address] [place] [address] Basophils/100 WBC (Bld) 0.6 % Normal 0.0-1.0 [facility] Comment on above: Performed By: #### L [id number] ####[facility] (BEAKER)[address] [place] [address] Eosinophils (Bld) [#/Vol] 0.77 10*3/uL High 0.00-0.50 [facility] Comment on above: Performed By: #### L [id number] ####[facility] (BEAKER)[address] [place] [address] Eosinophils/100 WBC (Bld) 8.6 % High 0.0-6.0 [facility] Comment on above: Performed By: #### L [id number] ####[facility] (BEAKER)[address] [place] [address] Erythrocyte distribution width (RBC) [Ratio] 14.6 % Normal 11.5-15.0 [facility] Comment on above: Performed By: #### L [id number] ####[facility] (BEAKER)[address] [place] [address] ERYTHROCYTE MEAN CORPUSCULAR HEMOGLOBIN CONCENTRATION (G/DL) BY AUTOMATED 31.0 g/dL Low 32.0-35.0 [facility] Comment on above: Performed By: #### L [id number] ####[facility] ([facility])[address] [place], [place] [address] Hematocrit (Bld) [Volume fraction] 29.0 % Low 39.0-55.0 [facility] Comment on above: Performed By: #### L [id number] ####[facility] ([facility])[address] [place] [address] Hemoglobin (Bld) [Mass/Vol] 9.0 g/dL Low 13.0-17.0 [facility] Comment on above: Performed By: #### L [id number] ####[facility] ([facility])[address] [place] [address] Immature granulocytes (Bld) [#/Vol] 0.03 10*3/uL Normal 0.00-0.20 [facility] Comment on above: Performed By: #### L [id number] ####[facility] (BEAKER)[address] [place] [address] Immature granulocytes/100 WBC (Bld) 0.3 % Normal 0.0-1.0 [facility] Comment on above: Performed By: #### L [id number] ####[facility] (BEAKER)[address] [place], [place] [address] Lymphocytes (Bld) [#/Vol] 0.53 10*3/uL Low 1.20-4.00 [facility] Comment on above: Performed By: #### L [id number] ####[facility] (BEAKER)[address] [place] [address] Lymphocytes/100 WBC (Bld) 5.9 % Low 20.0-45.0 [facility] Comment on above: Performed By: #### L [id number] ####[facility] ([facility] [place] [address] MCH (RBC) [Entitic mass] 32.3 pg Normal 27.0-33.0 [facility] Comment on above: Performed By: #### L [id number] ####[facility] ([facility] [place] [address] MCV (RBC) [Entitic vol] 103.9 fL High 82.0-98.0 [facility] Comment on above: Performed By: #### L [id number] ####[facility] ([facility])[address] [place] [address] Monocytes (Bld) [#/Vol] 0.71 10*3/uL Normal 0.10-1.00 [facility] Comment on above: Performed By: #### L [id number] ####[facility] ([facility] [place] [address] Monocytes/100 WBC (Bld) 7.9 % Normal 5.0-12.0 [facility] Comment on above: Performed By: #### L [id number] ####[facility] ([facility] [place] [address] Neutrophils (Bld) [#/Vol] 6.85 10*3/uL Normal 1.60-7.60 [facility] Comment on above: Performed By: #### L [id number] ####[facility] (BEAKER)[address] [place] [address] Neutrophils/100 WBC (Bld) 76.7 % High 40.0-72.0 [facility] Comment on above: Performed By: #### L [id number] ####[facility] (BEAKER)[address] [place] [address] NRBC (PER 100 WBCS) BY AUTOMATED COUNT 0.0 % Normal 0 [facility] Comment on above: Performed By: #### L [id number] ####[facility] ([facility])[address] [facility] [place] [address] PLATELETS (10*3/UL) IN BLOOD AUTOMATED COUNT 271 10*3/uL Normal 150-400 [facility] Comment on above: Performed By: #### L [id number] ####[facility] ([facility])[address] [place] [address] RBC (Bld) [#/Vol] 2.79 10*6/uL Low 4.20-5.70 [facility] Comment on above: Performed By: #### L [id number] ####[facility] ([facility])[address] [facility] [place] [address] WBC (Bld) [#/Vol] 8.94 10*3/uL Normal 4.00-10.60 [facility] Comment on above: Performed By: #### L [id number] ####[facility] ([facility])[address] [place] [address] CONSULTon 09-23-2024 CONSULT Normal [facility] DSon 09-23-2024 DS Normal [facility] HEPATITIS B CORE ANTIBODY, T OTALon 09-23-2024 HEPATITIS B VIRUS CORE AB (PRESENCE) IN SER/PLAS BY IMM Non-Reactive Normal Nonreactive [facility] Comment on above: Performed By: #### L [id number] ####[facility] ([facility])[address] [place] [address] HEPATITIS B SURFACE ANTIGENo n 09-23-2024 HEPATITIS B VIRUS SURFACE AG PRESENCE IN SERUM Non-Reactive Normal Nonreactive [facility] Comment on above: Performed By: #### L [id number] ####[facility] ([facility])[address] [place] [address] HEPATITIS C ANTIBODYon 09-23 HEPATITIS C VIRUS AB PRESENCE IN SERUM Non-Reactive Normal Nonreactive [facility] Comment on above: Performed By: #### L [id number] ####[facility] [place] [address] Orders Onlyon 09-23-2024 Orders Only Normal [facility] ANESon 09-22-2024 ANES Normal [facility] BASIC METABOLIC PANELon 12-0 Anion gap [Moles/Vol] 19 mmol/L Normal 7-[address] [facility] Comment on above: Performed By: #### L [id number] ####[facility] ([facility])[address] [place] [address] Calcium [Mass/Vol] 8.7 mg/dL Normal 8.6-10.3 [facility] Comment on above: Performed By: #### L [id number] ####[facility] ([facility])[address] [place] [address] Chloride [Moles/Vol] 99 mmol/L Normal 98-107 [facility] Comment on above: Performed By: #### L [id number] ####[facility] (BEAKER)[address] [place] [address] CO2 [Moles/Vol] 24 mmol/L Normal 21-31 [facility] Comment on above: Performed By: #### L [id number] ####[facility] (BEAKER)[address] [place] [address] Creatinine [Mass/Vol] 9.51 mg/dL High 0.70-1.[address] [facility] Comment on above: Performed By: #### L [id number] ####[facility] [place] [address] GLOMERULAR FILTRATION RATE ML/MIN/1.73 SQ M.PREDICTED 5.9 mL/min/1.73m*2 Low >60.0 [facility] Comment on above: Result Comment: [facility]???s estimated glomerular filtration rate (eGFR) will [...] of individuals. Performed By: #### L [id number] ####[facility] ([facility])[address] [place] [address] Glucose [Mass/Vol] 83 mg/dL Normal 70-100 [facility] Comment on above: Performed By: #### L [id number] ####[facility] ([facility])[address] [place] [address] Potassium [Moles/Vol] 5.1 mmol/L Normal 3.5-5.1 [facility] Comment on above: Performed By: #### L [id number] ####[facility] ([facility])[address] [place] [address] Sodium [Moles/Vol] 137 mmol/L Normal 136-145 [facility] Comment on above: Performed By: #### L [id number] ####[facility] ([facility])[address] [place] [address] Urea nitrogen [Mass/Vol] 39 mg/dL High 7-25 [facility] Comment on above: Performed By: #### L [id number] ####[facility] ([facility])[address] [place] [address] UREA NITROGEN/CREATININE (MASS RATIO) IN SER/PLAS 4.1 Normal [facility] Comment on above: Performed By: #### L [id number] ####[facility] ([facility])[address] [place] [address] Anion gap [Moles/Vol] 18 mmol/L Normal 7-20 [facility] Comment on above: Performed By: #### L [id number] ####[facility] ([facility])[address] [place] [address] Calcium [Mass/Vol] 9.3 mg/dL Normal 8.6-10.3 [facility] Comment on above: Performed By: #### L [id number] ####[facility] (BEAKER)[address] [place] [address] Chloride [Moles/Vol] 98 mmol/L Normal 98-107 [facility] Comment on above: Performed By: #### L [id number] ####[facility] (BEAKER)[address] [place] [address] CO2 [Moles/Vol] 28 mmol/L Normal 21-31 [facility] Comment on above: Performed By: #### L [id number] ####[facility] [place] [address] Creatinine [Mass/Vol] 8.70 mg/dL High 0.70-1.[address] [facility] Comment on above: Performed By: #### L [id number] ####[facility] ([facility])[address] [place] [address] GLOMERULAR FILTRATION RATE ML/MIN/1.73 SQ M.PREDICTED 6.6 mL/min/1.73m*2 Low >60.0 [facility] Comment on above: Result Comment: [facility]???s estimated glomerular filtration rate (eGFR) will [...] of individuals. Performed By: #### L [id number] ####[facility] (BEAKER)[address] [place] [address] Glucose [Mass/Vol] 81 mg/dL Normal 70-100 [facility] Comment on above: Performed By: #### L [id number] ####[facility] [place] [address] Potassium [Moles/Vol] 5.2 mmol/L High 3.5-5.1 [facility] Comment on above: Performed By: #### L [id number] ####[facility] (BEAKER)[address] [place] [address] Sodium [Moles/Vol] 139 mmol/L Normal 136-145 [facility] Comment on above: Performed By: #### L [id number] ####[facility] (BEAKER)[address] [place] [address] Urea nitrogen [Mass/Vol] 38 mg/dL High 7-25 [facility] Comment on above: Performed By: #### L [id number] ####[facility] [place] [address] UREA NITROGEN/CREATININE (MASS RATIO) IN SER/PLAS 4.4 Normal [facility] Comment on above: Performed By: #### L [id number] ####[facility] [place] [address] CBCon 09-22-2024 Erythrocyte distribution width (RBC) [Ratio] 14.3 % Normal 11.5-15.0 [facility] Comment on above: Performed By: #### L [id number] ####[facility] [place] [address] ERYTHROCYTE MEAN CORPUSCULAR HEMOGLOBIN CONCENTRATION (G/DL) BY AUTOMATED 31.5 g/dL Low 32.0-35.0 [facility] Comment on above: Performed By: #### L [id number] ####[facility] (BEAKER)[address] [place] [address] Hematocrit (Bld) [Volume fraction] 30.2 % Low 39.0-55.0 [facility] Comment on above: Performed By: #### L [id number] ####[facility] (BEAKER)[address] [place] [address] Hemoglobin (Bld) [Mass/Vol] 9.5 g/dL Low 13.0-17.0 [facility] Comment on above: Performed By: #### L [id number] ####[facility] [place] [address] MCH (RBC) [Entitic mass] 32.4 pg Normal 27.0-33.0 [facility] Comment on above: Performed By: #### L [id number] ####[facility] ([facility])[address] [place] [address] MCV (RBC) [Entitic vol] 103.1 fL High 82.0-98.0 [facility] Comment on above: Performed By: #### L [id number] ####[facility] ([facility])[address] [place] [address] PLATELETS (10*3/UL) IN BLOOD AUTOMATED COUNT 317 10*3/uL Normal 150-400 [facility] Comment on above: Performed By: #### L [id number] ####[facility] ([facility])[address] [place] [address] RBC (Bld) [#/Vol] 2.93 10*6/uL Low 4.20-5.70 [facility] Comment on above: Performed By: #### L [id number] ####[facility] ([facility])[address] [place] [address] WBC (Bld) [#/Vol] 8.35 10*3/uL Normal 4.00-10.60 [facility] Comment on above: Performed By: #### L [id number] ####[facility] ([facility])[address] [place] [address] HPon 09-22-2024 HP Normal [facility] NURSNOTEon 09-22-2024 NURSNOTE Normal [facility] Letter (Out)on 09-01-2024 Letter (Out) [facility] Follow-Upon 07-18-2024 Follow-Up Normal [facility] Refillon 07-05-2024 Refill Normal [facility] Orders Onlyon 07-02-2024 Orders Only Normal [facility] 36on 06-24-2024 36 Normal [facility] Erroneous Telephone Encounte stefano 06-05-2024 Erroneous Telephone Encounter Normal [facility] Abstracton 06-03-2024 Abstract Normal [facility] 30on 05-31-2024 30 Normal [facility] BASIC METABOLIC PANELon 05-15 Anion gap [Moles/Vol] 15 mmol/L Normal 7-[address] [facility] Comment on above: Performed By: #### L [id number] ####[facility] ([facility])[address] [place] [address] Calcium [Mass/Vol] 8.9 mg/dL Normal 8.6-10.3 [facility] Comment on above: Performed By: #### L [id number] ####[facility] ([facility]AKER)[address] [place] [address] Chloride [Moles/Vol] 97 mmol/L Low 98-107 [facility] Comment on above: Performed By: #### L [id number] ####[facility] ([facility]AKER)[address] [place] [address] CO2 [Moles/Vol] 29 mmol/L Normal 21-31 [facility] Comment on above: Performed By: #### L [id number] ####[facility] ([facility]ER)[address] [place] [address] Creatinine [Mass/Vol] 8.22 mg/dL High 0.70-1.[address] [facility] Comment on above: Performed By: #### L [id number] ####[facility] ([facility]ER)[address] [place] [address] GLOMERULAR FILTRATION RATE ML/MIN/1.73 SQ M.PREDICTED 7.1 mL/min/1.73m*2 Low >60.0 [facility] Comment on above: Result Comment: [facility]???s estimated glomerular filtration rate (eGFR) will [...] of individuals. Performed By: #### L [id number] ####[facility] ([facility])[address] [place] [address] Glucose [Mass/Vol] 98 mg/dL Normal 70-100 [facility] Comment on above: Performed By: #### L [id number] ####[facility] ([facility])[address] [place] [address] Potassium [Moles/Vol] 4.3 mmol/L Normal 3.5-5.1 [facility] Comment on above: Performed By: #### L [id number] ####[facility] ([facility])[address] [place] [address] Sodium [Moles/Vol] 137 mmol/L Normal 136-145 [facility] Comment on above: Performed By: #### L [id number] ####[facility] ([facility])[address] [place] [address] Urea nitrogen [Mass/Vol] 38 mg/dL High 7-25 [facility] Comment on above: Performed By: #### L [id number] ####[facility] ([facility])[address] [place] [address] UREA NITROGEN/CREATININE (MASS RATIO) IN SER/PLAS 4.6 Normal [facility] Comment on above: Performed By: #### L [id number] ####[facility] ([facility])[address] [place] [address] CBCon 05-31-2024 Erythrocyte distribution width (RBC) [Ratio] 14.3 % Normal 11.5-15.0 [facility] Comment on above: Performed By: #### L [id number] ####[facility] ([facility])[address] [place] [address] ERYTHROCYTE MEAN CORPUSCULAR HEMOGLOBIN CONCENTRATION (G/DL) BY AUTOMATED 31.3 g/dL Low 32.0-35.0 [facility] Comment on above: Performed By: #### L [id number] ####[facility] (BEAKER)[address] [place] [address] Hematocrit (Bld) [Volume fraction] 24.6 % Low 39.0-55.0 [facility] Comment on above: Performed By: #### L [id number] ####[facility] (BEAKER)[address] [place] [address] Hemoglobin (Bld) [Mass/Vol] 7.7 g/dL Low 13.0-17.0 [facility] Comment on above: Performed By: #### L [id number] ####[facility] (BEAKER)[address] [place] [address] MCH (RBC) [Entitic mass] 32.4 pg Normal 27.0-33.0 [facility] Comment on above: Performed By: #### L [id number] ####[facility] (BEAKER)[address] [place] [address] MCV (RBC) [Entitic vol] 103.4 fL High 82.0-98.0 [facility] Comment on above: Performed By: #### L [id number] ####[facility] (BEAKER)[address] [place] [address] PLATELETS (10*3/UL) IN BLOOD AUTOMATED COUNT 201 10*3/uL Normal 150-400 [facility] Comment on above: Performed By: #### L [id number] ####[facility] (BEAKER)[address] [place] [address] RBC (Bld) [#/Vol] 2.38 10*6/uL Low 4.20-5.70 [facility] Comment on above: Performed By: #### L [id number] ####[facility] (BEAKER)[address] [place] [address] WBC (Bld) [#/Vol] 7.64 10*3/uL Normal 4.00-10.60 [facility] Comment on above: Performed By: #### L [id number] ####[facility] ([facility])[address] [place] [address] DSon 05-31-2024 DS Normal [facility] MAGNESIUMon 05-31-2024 Magnesium [Mass/Vol] 2.1 mg/dL Normal 1.9-2.7 [facility] Comment on above: Performed By: #### L [id number] ####[facility] ([facility])[address] [place] [address] NURSNOTEon 05-31-2024 NURSNOTE Pt left AMA, RN at bedside when MD went over risks and AMA form. 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 Pt states he will follow up with his high scaler on Sunday. Normal [facility] PHOSPHORUSon 05-31-2024 Magnesium [Mass/Vol] 5.2 mg/dL High 2.5-5.0 [facility] Comment on above: Performed By: #### L [id number] ####[facility] ([facility])[address] [place] [address] [id number] 05-30-2024 [id number] Normal [facility] 30on 05-30-2024 30 Normal [facility] 30 Normal [facility] ANESon 05-30-2024 ANES Normal [facility] ANES Normal [facility] BASIC METABOLIC PANELon 05-15 Anion gap [Moles/Vol] 22 mmol/L High 7-20 [facility] Comment on above: Performed By: #### L [id number] ####[facility] ([facility])[address] [place] [address] Calcium [Mass/Vol] 9.1 mg/dL Normal 8.6-10.3 [facility] Comment on above: Performed By: #### L [id number] ####[facility] [place] [address] Chloride [Moles/Vol] 93 mmol/L Low 98-107 [facility] Comment on above: Performed By: #### L [id number] ####[facility] [place] [address] CO2 [Moles/Vol] 24 mmol/L Normal 21-31 [facility] Comment on above: Performed By: #### L [id number] ####[facility] [place] [address] Creatinine [Mass/Vol] 10.37 mg/dL High 0.70-1.30 [facility] Comment on above: Performed By: #### L [id number] ####[facility] ([facility])[address] [place] [address] GLOMERULAR FILTRATION RATE ML/MIN/1.73 SQ M.PREDICTED 5.4 mL/min/1.73m*2 Low >60.0 [facility] Comment on above: Result Comment: [facility]???s estimated glomerular filtration rate (eGFR) will [...] of individuals. Performed By: #### L [id number] ####[facility] [place] [address] Glucose [Mass/Vol] 82 mg/dL Normal 70-100 [facility] Comment on above: Performed By: #### L [id number] ####[facility] [place] [address] Potassium [Moles/Vol] 4.7 mmol/L Normal 3.5-5.1 [facility] Comment on above: Performed By: #### L [id number] ####[facility] (BEAKER)[address] [place] [address] Sodium [Moles/Vol] 134 mmol/L Low 136-145 [facility] Comment on above: Performed By: #### L [id number] ####[facility] (BEAKER)[address] [place] [address] Urea nitrogen [Mass/Vol] 61 mg/dL High 7-25 [facility] Comment on above: Performed By: #### L [id number] ####[facility] (BEAKER)[address] [place] [address] UREA NITROGEN/CREATININE (MASS RATIO) IN SER/PLAS 5.9 Normal [facility] Comment on above: Performed By: #### L [id number] ####[facility] (BEAKER)[address] [place] [address] CBCon 05-30-2024 Erythrocyte distribution width (RBC) [Ratio] 14.5 % Normal 11.5-15.0 [facility] Comment on above: Performed By: #### L [id number] ####[facility] (BEAKER)[address] [place] [address] ERYTHROCYTE MEAN CORPUSCULAR HEMOGLOBIN CONCENTRATION (G/DL) BY AUTOMATED 32.4 g/dL Normal 32.0-35.0 [facility] Comment on above: Performed By: #### L [id number] ####[facility] (BEAKER)[address] [place] [address] Hematocrit (Bld) [Volume fraction] 25.3 % Low 39.0-55.0 [facility] Comment on above: Performed By: #### L [id number] ####[facility] (BEAKER)[address] [place] [address] Hemoglobin (Bld) [Mass/Vol] 8.2 g/dL Low 13.0-17.0 [facility] Comment on above: Performed By: #### L [id number] ####[facility] (BEAKER)[address] [place] [address] MCH (RBC) [Entitic mass] 32.3 pg Normal 27.0-33.0 [facility] Comment on above: Performed By: #### L [id number] ####[facility] ([facility])[address] [place] [address] MCV (RBC) [Entitic vol] 99.6 fL High 82.0-98.0 [facility] Comment on above: Performed By: #### L [id number] ####[facility] ([facility])[address] [place] [address] PLATELETS (10*3/UL) IN BLOOD AUTOMATED COUNT 205 10*3/uL Normal 150-400 [facility] Comment on above: Performed By: #### L [id number] ####[facility] ([facility])[address] [place] [address] RBC (Bld) [#/Vol] 2.54 10*6/uL Low 4.20-5.70 [facility] Comment on above: Performed By: #### L [id number] ####[facility] ([facility])[address] [place] [address] WBC (Bld) [#/Vol] 6.02 10*3/uL Normal 4.00-10.60 [facility] Comment on above: Performed By: #### L [id number] ####[facility] ([facility])[address] [place] [address] CONSULTon 05-30-2024 CONSULT Normal [facility] HISTOLOGY - TISSUE EXAMon LAB AP ASR DISCLAIMER Normal [facility] Comment on above: Order Comment: Pre-o p diagnosis:Lymphadenopathy [R59.1] Performed By: #### L [id number] ####[facility] ([facility])[address] [place] [address] LAB AP CASE REPORT Normal [facility] Comment on above: Order Comment: Pre-o p diagnosis:Lymphadenopathy [R59.1] Result Comment: Surg ical Pathology Case: [id number] Provider: Nathaniel Sanabria MD Collected: 05/30/2024 1831Ordering Location: [facility] Main Operating Room Received: 06/02/2024 0539Pathologist: JOO Gonzalespecimens: A) - Groin, RT. GROIN LYMPHNODE BIOPSY (FRESH) B) - Groin, RT. GROIN LYMPHNODE BIOPSY Performed By: #### L [id number] ####[facility] (BEAKER)[address] [address] LAB AP CLINICAL INFORMATION Normal [facility] Comment on above: Order Comment: Pre-o p diagnosis:Lymphadenopathy [R59.1] Result Comment: Post -Op [id number] - Lymphadenopathy [ICD-10-CM] Performed By: #### L [id number] ####[facility] (BEAKER)[address] Maintenance AssistantENCOMPASS [facility] [place] [address] LAB AP DIAGNOSIS COMMENT Normal [facility] Comment on above: Order Comment: Pre-o p diagnosis:Lymphadenopathy [R59.1] Performed By: #### L [id number] ####[facility] (BEAKER)[address] [address] LAB AP FLOW CYTOMETRY SUMMARY Normal [facility] Comment on above: Order Comment: Pre-o p diagnosis:Lymphadenopathy [R59.1] Result Comment: Flow cytometry studies were completed at [facility] Laboratories:Leukemia/lymphoma phenotyping evaluation by flow cytometry, right groin lymph node: - Low viability (70%) specimen with increased CD4:CD8 ratio (10:1) without immunophenotypic aberrancy.- An increased CD4:CD8 ratio may be observed in Hodgkin lymphoma, autoimmune disorders, neoplasms, sarcoidosis and other conditions. Clinical correlation recommended. Performed By: #### L [id number] ####[facility] (BEAKER)[address] [address] LAB AP GROSS DESCRIPTION A. Groin. Normal [facility] Comment on above: Order Comment: Pre-o p diagnosis:Lymphadenopathy [R59.1] Result Comment: Rece ived fresh for lymphoma labeled Leander Decker, RT. GROIN LYMPHNODE BIOPSY (FRESH) is a [...] Pathologists' AssistantB. Groin.Received in formalin labeled Leander Decker, Rt groin lymph node biopsy is a portion of holland-brown indira tissue, 1.1 x 0.8 x 0.9 cm with bulky attached adipose tissue up to 0.8 cm. The specimen is serially sectioned to reveal brown-barber variegated cut surfaces. The specimen is entirely submitted in 2 cassettes.Timmy Trimble, Pathologists' Smoking Pipe Liner Performed By: #### L [id number] ####[facility] ([facility])[address] [place] [address] LAB AP MICROSCOPIC DESCRIPTION Microscopic examination performed. [facility] Comment on above: Order Comment: Pre-o p diagnosis:Lymphadenopathy [R59.1] Performed By: #### L [id number] ####[facility] ([facility])[address] [place] [address] LAB AP REPORT FINAL DIAGNOSIS NARRATIVE [facility] Comment on above: Order Comment: Pre-o p diagnosis:Lymphadenopathy [R59.1] Result Comment: A,B. Lymph node, right groin, excision:- Mild follicular hyperplasia and reactive changes consistent with dermatopathic lymphadenopathy.- No evidence of lymphoproliferative disorder.- See comment. Performed By: #### L [id number] ####[facility] ([facility])[address] [place] [address] HPon 05-30-2024 HP H&P reviewed. The patient was examined and there are no changes to the H&P. [facility] HP [facility] MAGNESIUMon 05-30-2024 Magnesium [Mass/Vol] 2.1 mg/dL Normal 1.9-2.7 [facility] Comment on above: Performed By: #### L [id number] ####[facility] ([facility])[address] [place] [address] NURSNOTEon 05-30-2024 NURSNOTE Report received from Ambika QUEEN. Pt remains npo and is scheduled for a lymph node biopsy with dr sanabria [facility] OPNOTEon 05-30-2024 OPNOTE Normal [facility] PHOSPHORUSon 05-30-2024 Magnesium [Mass/Vol] 6.2 mg/dL High 2.5-5.0 [facility] Comment on above: Performed By: #### L [id number] ####[facility] ([place]ELSON)[address] [place] [address] PROCALCITONIN TESTon 024 PROCALCITONIN IN BLOOD 2.27 ng/mL Critically high 0.00-0.1 0 [facility] Comment on above: Result Comment: Susp ected [...] and initial PCT<0.5ng/mL Performed By: #### L [id number] ####[facility] ([facility])[address] [place] [address] APTTon 05-29-2024 ACTIVATED PARTIAL THROMBOPLASTIN TIME IN PPP BY COAGULATION ASSAY 32.2 Seconds Normal 25.0-35.0 [facility] Comment on above: Result Comment: Clin ical significance of the APTT is questionable in the presence of heparin. Performed By: #### L [id number] ####[facility] ([facility])[address] [place] [address] ACTIVATED PARTIAL THROMBOPLASTIN TIME IN PPP BY COAGULATION ASSAY 33.4 Seconds Normal 25.0-35.0 [facility] Comment on above: Result Comment: Clin ical significance of the APTT is questionable in the presence of heparin. Performed By: #### L [id number] ####[facility] ([facility])[address] [place] [address] BASIC METABOLIC PANELon 05-15 Anion gap [Moles/Vol] 16 mmol/L Normal 7-[address] [facility] Comment on above: Performed By: #### L [id number] ####[facility] ([facility])[address] [place] [address] Calcium [Mass/Vol] 9.1 mg/dL Normal 8.6-10.3 [facility] Comment on above: Performed By: #### L [id number] ####[facility] ([facility])[address] [place] [address] Chloride [Moles/Vol] 94 mmol/L Low 98-107 [facility] Comment on above: Performed By: #### L [id number] ####[facility] ([facility])[address] [place] [address] CO2 [Moles/Vol] 28 mmol/L Normal 21-31 [facility] Comment on above: Performed By: #### L [id number] ####[facility] ([facility])[address] [place] [address] Creatinine [Mass/Vol] 8.33 mg/dL High 0.70-1.[address] [facility] Comment on above: Performed By: #### L [id number] ####[facility] ([facility])[address] [place] [address] GLOMERULAR FILTRATION RATE ML/MIN/1.73 SQ M.PREDICTED 7.0 mL/min/1.73m*2 Low >60.0 [facility] Comment on above: Result Comment: [facility]???s estimated glomerular filtration rate (eGFR) will [...] of individuals. Performed By: #### L [id number] ####[facility] ([facility])[address] [place] [address] Glucose [Mass/Vol] 85 mg/dL Normal 70-100 [facility] Comment on above: Performed By: #### L [id number] ####[facility] ([facility])[address] [place] [address] Potassium [Moles/Vol] 4.3 mmol/L Normal 3.5-5.[address] [facility] Comment on above: Performed By: #### L [id number] ####[facility] ([facility])[address] [place] [address] Sodium [Moles/Vol] 134 mmol/L Low 136-145 [facility] Comment on above: Performed By: #### L [id number] ####[facility] ([facility])[address] [place] [address] Urea nitrogen [Mass/Vol] 41 mg/dL High 7-25 [facility] Comment on above: Performed By: #### L [id number] ####[facility] ([facility])[address] [place] [address] UREA NITROGEN/CREATININE (MASS RATIO) IN SER/PLAS 4.9 Normal [facility] Comment on above: Performed By: #### L [id number] ####[facility] ([facility])[address] [place] [address] CBCon 05-29-2024 Erythrocyte distribution width (RBC) [Ratio] 14.7 % Normal 11.5-15.0 [facility] Comment on above: Performed By: #### L [id number] ####[facility] ([facility])[address] [place] [address] ERYTHROCYTE MEAN CORPUSCULAR HEMOGLOBIN CONCENTRATION (G/DL) BY AUTOMATED 32.2 g/dL Normal 32.0-35.0 [facility] Comment on above: Performed By: #### L [id number] ####[facility] ([facility])[address] [place] [address] Hematocrit (Bld) [Volume fraction] 23.9 % Low 39.0-55.0 [facility] Comment on above: Performed By: #### L [id number] ####[facility] ([facility])[address] [place] [address] Hemoglobin (Bld) [Mass/Vol] 7.7 g/dL Low 13.0-17.0 [facility] Comment on above: Performed By: #### L [id number] ####[facility] ([facility])[address] [place] [address] MCH (RBC) [Entitic mass] 32.2 pg Normal 27.0-33.0 [facility] Comment on above: Performed By: #### L [id number] ####[facility] ([facility])[address] [place] [address] MCV (RBC) [Entitic vol] 100.0 fL High 82.0-98.0 [facility] Comment on above: Performed By: #### L [id number] ####[facility] ([facility])[address] [place] [address] PLATELETS (10*3/UL) IN BLOOD AUTOMATED COUNT 177 10*3/uL Normal 150-400 [facility] Comment on above: Performed By: #### L [id number] ####[facility] ([facility])[address] [place] [address] RBC (Bld) [#/Vol] 2.39 10*6/uL Low 4.20-5.70 [facility] Comment on above: Performed By: #### L [id number] ####[facility] ([facility])[address] [place] [address] WBC (Bld) [#/Vol] 4.36 10*3/uL Normal 4.00-10.60 [facility] Comment on above: Performed By: #### L [id number] ####[facility] ([facility])[address] [place] [address] MAGNESIUMon 05-29-2024 Magnesium [Mass/Vol] 2.0 mg/dL Normal 1.9-2.7 [facility] Comment on above: Performed By: #### L [id number] ####[facility] ([facility])[address] [place] [address] PHOSPHORUSon 05-29-2024 Magnesium [Mass/Vol] 6.3 mg/dL High 2.5-5.0 [facility] Comment on above: Performed By: #### L [id number] ####[facility] ([facility])[address] [place] [address] PROTIME-INRon 05-29-2024 INR IN PPP BY COAGULATION ASSAY 1.06 Normal 0.90-1.10 [facility] Comment on above: Result Comment: ACCC [...] CHEST 1995;108:[id number]. Performed By: #### L [id number] ####[facility] ([place])[address] [place] [address] PROTHROMBIN TIME (PT) IN PPP BY COAGULATION ASSAY 13.8 Seconds Normal 12.3-14.8 [facility] Comment on above: Performed By: #### L [id number] ####[facility] ([place])[address] [place] [address] INR IN PPP BY COAGULATION ASSAY 1.10 Normal 0.90-1.10 [facility] Comment on above: Result Comment: ACCC [...] CHEST 1995;[id number]. Performed By: #### L [id number] ####[facility] (BEAKER)[address] [place] [address] PROTHROMBIN TIME (PT) IN PPP BY COAGULATION ASSAY 14.2 Seconds Normal 12.3-14.8 [facility] Comment on above: Performed By: #### L [id number] ####[facility] [place] [address] TSHon 05-29-2024 THYROTROPIN (MIU/L) IN SER/PLAS BY DETECTION LIMIT <= 0.05 MIU/L 0.09 mIU/L Low 0.34-5.60 [facility] Comment on above: Performed By: #### L [id number] ####[facility] [place] [address] TYPE AND SCREENon 05-29-2024 AB SCREEN Negative Normal [facility] Comment on above: Performed By: #### L [id number] ####[facility] BLOOD BANK, ABO group Nom (Bld) O Normal [facility] Comment on above: Performed By: #### L [id number] ####[facility] BLOOD BANK, RH TYPE IN BLOOD Positive Normal [facility] Comment on above: Performed By: #### L [id number] ####[facility] BLOOD BANK, BASIC METABOLIC PANELon 05-15 Anion gap [Moles/Vol] 21 mmol/L High 7-[address] [facility] Comment on above: Performed By: #### L [id number] ####[facility] (BEAKER)[address] [place] [address] Calcium [Mass/Vol] 9.0 mg/dL Normal 8.6-10.3 [facility] Comment on above: Performed By: #### L [id number] ####[facility] (BEAKER)[address] [place] [address] Chloride [Moles/Vol] 94 mmol/L Low 98-107 [facility] Comment on above: Performed By: #### L [id number] ####[facility] (BEAKER)[address] [place] [address] CO2 [Moles/Vol] 27 mmol/L Normal 21-31 [facility] Comment on above: Performed By: #### L [id number] ####[facility] [place] [address] Creatinine [Mass/Vol] 8.00 mg/dL High 0.70-1.[address] [facility] Comment on above: Performed By: #### L [id number] ####[facility] ([facility])[address] [place] [address] GLOMERULAR FILTRATION RATE ML/MIN/1.73 SQ M.PREDICTED 7.3 mL/min/1.73m*2 Low >60.0 [facility] Comment on above: Result Comment: [facility]???s estimated glomerular filtration rate (eGFR) will [...] of individuals. Performed By: #### L [id number] ####[facility] [place] [address] Glucose [Mass/Vol] 94 mg/dL Normal 70-100 [facility] Comment on above: Performed By: #### L [id number] ####[facility] (BEAKER)[address] [place] [address] Potassium [Moles/Vol] 4.1 mmol/L Normal 3.5-5.[address] [facility] Comment on above: Performed By: #### L [id number] ####[facility] [place] [address] Sodium [Moles/Vol] 138 mmol/L Normal 136-145 [facility] Comment on above: Performed By: #### L [id number] ####[facility] ([facility])[address] [place] [address] Urea nitrogen [Mass/Vol] 37 mg/dL High 7-25 [facility] Comment on above: Performed By: #### L [id number] ####[facility] ([facility])[address] [place] [address] UREA NITROGEN/CREATININE (MASS RATIO) IN SER/PLAS 4.6 Normal [facility] Comment on above: Performed By: #### L [id number] ####[facility] ([facility])[address] [place] [address] CBC WITH AUTO DIFFERENTIALon 05-28-2024 Basophils (Bld) [#/Vol] 0.01 10*3/uL Normal 0.00-0.20 [facility] Comment on above: Performed By: #### L [id number] ####[facility] ([facility])[address] [place] [address] Basophils/100 WBC (Bld) 0.2 % Normal 0.0-1.0 [facility] Comment on above: Performed By: #### L [id number] ####[facility] ([facility])[address] [place] [address] Eosinophils (Bld) [#/Vol] 0.00 10*3/uL Normal 0.00-0.50 [facility] Comment on above: Performed By: #### L [id number] ####[facility] ([facility])[address] [place] [address] Eosinophils/100 WBC (Bld) 0.0 % Normal 0.0-6.0 [facility] Comment on above: Performed By: #### L [id number] ####[facility] [place] [address] Erythrocyte distribution width (RBC) [Ratio] 14.9 % Normal 11.5-15.0 [facility] Comment on above: Performed By: #### L [id number] ####[facility] (BEAKER)[address] [place] [address] ERYTHROCYTE MEAN CORPUSCULAR HEMOGLOBIN CONCENTRATION (G/DL) BY AUTOMATED 31.3 g/dL Low 32.0-35.0 [facility] Comment on above: Performed By: #### L [id number] ####[facility] (BEAKER)[address] [place] [address] Hematocrit (Bld) [Volume fraction] 24.6 % Low 39.0-55.0 [facility] Comment on above: Performed By: #### L [id number] ####[facility] (BEAKER)[address] [place] [address] Hemoglobin (Bld) [Mass/Vol] 7.7 g/dL Low 13.0-17.0 [facility] Comment on above: Performed By: #### L [id number] ####[facility] (BEAKER)[address] [place] [address] Immature granulocytes (Bld) [#/Vol] 0.02 10*3/uL Normal 0.00-0.20 [facility] Comment on above: Performed By: #### L [id number] ####[facility] (BEAKER)[address] [place] [address] Immature granulocytes/100 WBC (Bld) 0.4 % Normal 0.0-1.0 [facility] Comment on above: Performed By: #### L [id number] ####[facility] (BEAKER)[address] [place] [address] Lymphocytes (Bld) [#/Vol] 0.19 10*3/uL Low 1.20-4.00 [facility] Comment on above: Performed By: #### L [id number] ####[facility] (BEAKER)[address] [place] [address] Lymphocytes/100 WBC (Bld) 3.6 % Low 20.0-45.0 [facility] Comment on above: Performed By: #### L [id number] ####[facility] (BEAKER)[address] [place] [address] MCH (RBC) [Entitic mass] 32.6 pg Normal 27.0-33.0 [facility] Comment on above: Performed By: #### L [id number] ####[facility] (BEAKER)[address] [place] [address] MCV (RBC) [Entitic vol] 104.2 fL High 82.0-98.0 [facility] Comment on above: Performed By: #### L [id number] ####[facility] (BEAKER)[address] [place] [address] Monocytes (Bld) [#/Vol] 0.04 10*3/uL Low 0.10-1.00 [facility] Comment on above: Performed By: #### L [id number] ####[facility] (BEAKER)[address] [place] [address] Monocytes/100 WBC (Bld) 0.8 % Low 5.0-12.0 [facility] Comment on above: Performed By: #### L [id number] ####[facility] (BEAKER)[address] [place] [address] Neutrophils (Bld) [#/Vol] 5.06 10*3/uL Normal 1.60-7.60 [facility] Comment on above: Performed By: #### L [id number] ####[facility] (BEAKER)[address] [place] [address] Neutrophils/100 WBC (Bld) 95.0 % High 40.0-72.0 [facility] Comment on above: Performed By: #### L [id number] ####[facility] (BEAKER)[address] [place], [place] [address] NRBC (PER 100 WBCS) BY AUTOMATED COUNT 0.0 % Normal 0 [facility] Comment on above: Performed By: #### L [id number] ####[facility] (BEAKER)[address] [place] [address] PLATELETS (10*3/UL) IN BLOOD AUTOMATED COUNT 216 10*3/uL Normal 150-400 [facility] Comment on above: Performed By: #### L [id number] ####[facility] ([facility])[address] [place] [address] RBC (Bld) [#/Vol] 2.36 10*6/uL Low 4.20-5.70 [facility] Comment on above: Performed By: #### L [id number] ####[facility] ([facility])[address] [place] [address] WBC (Bld) [#/Vol] 5.32 10*3/uL Normal 4.00-10.60 [facility] Comment on above: Performed By: #### L [id number] ####[facility] ([facility])[address] [place] [address] COMPREHENSIVE METABOLIC PANE Fletcher 05-28-2024 Albumin [Mass/Vol] 3.4 g/dL Low 3.5-5.7 [facility] Comment on above: Performed By: #### L [id number] ####[facility] ([facility])[address] [place] [address] ALP [Catalytic activity/Vol] 58 U/L Normal 34-104 [facility] Comment on above: Performed By: #### L [id number] ####[facility] ([facility])[address] [place] [address] ALT [Catalytic activity/Vol] 4 U/L Low 7-52 [facility] Comment on above: Performed By: #### L [id number] ####[facility] ([facility] [place] [address] Anion gap [Moles/Vol] 22 mmol/L High 7-[address] [facility] Comment on above: Performed By: #### L [id number] ####[facility] ([facility] [place] [address] AST [Catalytic activity/Vol] 6 U/L Low 13-39 [facility] Comment on above: Performed By: #### L [id number] ####[facility] ([facility]ER)[address] [place] [address] Bilirubin [Mass/Vol] 0.4 mg/dL Normal 0.3-1.0 [facility] Comment on above: Performed By: #### L [id number] ####[facility] ([facility]ER)[address] [place] [address] Calcium [Mass/Vol] 9.1 mg/dL Normal 8.6-10.3 [facility] Comment on above: Performed By: #### L [id number] ####[facility] (BEAKER)[address] [place] [address] Chloride [Moles/Vol] 97 mmol/L Low 98-107 [facility] Comment on above: Performed By: #### L [id number] ####[facility] ([facility]ER)[address] [place] [address] CO2 [Moles/Vol] 23 mmol/L Normal 21-31 [facility] Comment on above: Performed By: #### L [id number] ####[facility] ([facility]AKER)[address] [place] [address] Creatinine [Mass/Vol] 13.14 mg/dL High 0.70-1.30 [facility] Comment on above: Performed By: #### L [id number] ####[facility] (BEAKER)[address] [place] [address] GLOMERULAR FILTRATION RATE ML/MIN/1.73 SQ M.PREDICTED 4.0 mL/min/1.73m*2 Low >60.0 [facility] Comment on above: Result Comment: [facility]???s estimated glomerular filtration rate (eGFR) will [...] of individuals. Performed By: #### L [id number] ####[facility] ([facility])[address] [place] [address] Glucose [Mass/Vol] 109 mg/dL High 70-100 [facility] Comment on above: Performed By: #### L [id number] ####[facility] ([facility])[address] [place] [address] Potassium [Moles/Vol] 5.2 mmol/L High 3.5-5.[address] [facility] Comment on above: Performed By: #### L [id number] ####[facility] ([facility])[address] [place] [address] Protein [Mass/Vol] 5.6 g/dL Low 6.0-8.3 [facility] Comment on above: Performed By: #### L [id number] ####[facility] ([facility])[address] [place] [address] Sodium [Moles/Vol] 137 mmol/L Normal 136-145 [facility] Comment on above: Performed By: #### L [id number] ####[facility] ([facility])[address] [place] [address] Urea nitrogen [Mass/Vol] 73 mg/dL High 7-25 [facility] Comment on above: Performed By: #### L [id number] ####[facility] ([facility])[address] [place] [address] UREA NITROGEN/CREATININE (MASS RATIO) IN SER/PLAS 5.6 [facility] Comment on above: Performed By: #### L [id number] ####[facility] ([facility])[address] [place] [address] CONSULTon 05-28-2024 CONSULT Normal [facility] CONSULT Normal [facility] CONSULT Normal [facility] FERRITINon 05-28-2024 FERRITIN (NG/ML) IN SER/PLAS 437.0 ng/mL High 24.0-336.0 [facility] Comment on above: Performed By: #### L [id number] ####[facility] ([facility]AKER)[address] [place] [address] FOLATEon 05-28-2024 FOLATE (NG/ML) IN SER/PLAS 13.02 ng/mL Normal 6.6-1000 [facility] Comment on above: Performed By: #### L [id number] ####[facility] (BEAKER)[address] [place] [address] HEMOGLOBIN AND HEMATOCRIT, B LOODon 05-28-2024 Hematocrit (Bld) [Volume fraction] 23.8 % Low 39.0-55.0 [facility] Comment on above: Performed By: #### L [id number] ####[facility] (BEAKER)[address] [place] [address] Hemoglobin (Bld) [Mass/Vol] 8.0 g/dL Low 13.0-17.0 [facility] Comment on above: Performed By: #### L [id number] ####[facility] (BEAKER)[address] [place] [address] IRON AND TIBCon 05-28-2024 IRON (UG/DL) IN SER/PLAS 31 ug/dL Low 50-212 [facility] Comment on above: Performed By: #### L [id number] ####[facility] (BEAKER)[address] [place] [address] IRON BINDING CAPACITY (UG/DL) IN SER/PLAS 198 ug/dL Low 250-450 [facility] Comment on above: Performed By: #### L [id number] ####[facility] (BEAKER)[address] [place] [address] IRON BINDING CAPACITY.UNSATURATED (UG/DL) IN SER/PLAS 167.0 ug/dL Normal 155.0-355.0 [facility] Comment on above: Performed By: #### L [id number] ####[facility] (BEAKER)[address] [place] [address] IRON SATURATION (%) IN SER/PLAS 16 % Low 20-50 [facility] Comment on above: Performed By: #### L [id number] ####[facility] [place] [address] MAGNESIUMon 05-28-2024 Magnesium [Mass/Vol] 1.9 mg/dL Normal 1.9-2.7 [facility] Comment on above: Performed By: #### L [id number] ####[facility] ([facility])[address] [place] [address] Magnesium [Mass/Vol] 2.2 mg/dL Normal 1.9-2.7 [facility] Comment on above: Performed By: #### L [id number] ####[facility] ([facility])[address] [place] [address] PHOSPHORUSon 05-28-2024 Magnesium [Mass/Vol] 6.5 mg/dL High 2.5-5.0 [facility] Comment on above: Performed By: #### L [id number] ####[facility] ([facility])[address] [place] [address] PTH, INTACTon 05-28-2024 PARATHYRIN INTACT (PG/ML) IN SER/PLAS 249 pg/mL High 12-88 [facility] Comment on above: Performed By: #### L [id number] ####[facility] ([facility])[address] [place] [address] SPUTUM CULTUREon 05-28-2024 Bacteria identified Cx Nom (Unsp spec) KLEBSIELLA PNEUMONIAE SSP PNEUMONIAE Abnormal [facility] Comment on above: Order Comment: Light Growth Colonies Consistent with Upper Respiratory Marilin Result Comment: Kleb siella pneumoniae ssp pneumoniaeSusceptibility to Follow Performed By: #### L [id number] ####[facility] ([facility])[address] [place] [address] GRAM STAIN RESULT Normal [facility] Comment on above: Order Comment: Light Growth Colonies Consistent with Upper Respiratory Marilin Result Comment: <10 Squamous Epithelial Cells Per Low Power Field<10 Polys Per Low Power FieldNo organisms seen Performed By: #### L [id number] ####[facility] ([facility])[address] [place] [address] VITAMIN B12on 05-28-2024 Cobalamin (Vitamin B12) [Mass/Vol] 1004 pg/mL High 180-914 [facility] Comment on above: Result Comment: REFE RENCE RANGES:180-914 pg/mL [id number] pg/mL Indeterminate<145 pg/mL Deficient Performed By: #### L [id number] ####[facility] ([facility])[address] [place] [address] 30on 05-27-2024 30 Normal [facility] APTTon 05-27-2024 ACTIVATED PARTIAL THROMBOPLASTIN TIME IN PPP BY COAGULATION ASSAY 27.7 Seconds Normal 25.0-35.0 [facility] Comment on above: Result Comment: Clin ical significance of the APTT is questionable in the presence of heparin. Performed By: #### L [id number] ####[facility] ([facility])[address] [place] [address] B-TYPE NATRIURETIC PEPTIDEon 05-27-2024 Natriuretic peptide B (Bld) [Mass/Vol] 1059 pg/mL High 0-100 [facility] Comment on above: Performed By: #### L [id number] ####[facility] ([facility])[address] [place] [address] BASIC METABOLIC PANELon 05-15 Anion gap [Moles/Vol] 23 mmol/L High 7-[address] [facility] Comment on above: Performed By: #### L [id number] ####[facility] ([facility])[address] [place] [address] Calcium [Mass/Vol] 9.3 mg/dL Normal 8.6-10.3 [facility] Comment on above: Performed By: #### L [id number] ####[facility] ([facility])[address] [place] [address] Chloride [Moles/Vol] 97 mmol/L Low 98-107 [facility] Comment on above: Performed By: #### L [id number] ####[facility] (BEAKER)[address] [place] [address] CO2 [Moles/Vol] 23 mmol/L Normal 21-31 [facility] Comment on above: Performed By: #### L [id number] ####[facility] (BEAKER)[address] [place] [address] Creatinine [Mass/Vol] 12.02 mg/dL High 0.70-1.30 [facility] Comment on above: Performed By: #### L [id number] ####[facility] (BEAKER)[address] [place] [address] GLOMERULAR FILTRATION RATE ML/MIN/1.73 SQ M.PREDICTED 4.5 mL/min/1.73m*2 Low >60.0 [facility] Comment on above: Result Comment: [facility]???s estimated glomerular filtration rate (eGFR) will [...] of individuals. Performed By: #### L [id number] ####[facility] (BEAKER)[address] [place] [address] Glucose [Mass/Vol] 92 mg/dL Normal 70-100 [facility] Comment on above: Performed By: #### L [id number] ####[facility] (BEAKER)[address] [place] [address] Potassium [Moles/Vol] 5.2 mmol/L High 3.5-5.[address] [facility] Comment on above: Performed By: #### L [id number] ####[facility] (BEAKER)[address] [place] [address] Sodium [Moles/Vol] 138 mmol/L Normal 136-145 [facility] Comment on above: Performed By: #### L [id number] ####[facility] ([facility])[address] [place] [address] Urea nitrogen [Mass/Vol] 66 mg/dL High 7-25 [facility] Comment on above: Performed By: #### L [id number] ####[facility] ([facility])[address] [place] [address] UREA NITROGEN/CREATININE (MASS RATIO) IN SER/PLAS 5.5 Normal [facility] Comment on above: Performed By: #### L [id number] ####[facility] ([facility])[address] [place] [address] CBC WITH AUTO DIFFERENTIALon 05-27-2024 Basophils (Bld) [#/Vol] 0.01 10*3/uL Normal 0.00-0.20 [facility] Comment on above: Performed By: #### L [id number] ####[facility] ([facility])[address] [place] [address] Basophils/100 WBC (Bld) 0.1 % Normal 0.0-1.0 [facility] Comment on above: Performed By: #### L [id number] ####[facility] ([facility])[address] [place] [address] Eosinophils (Bld) [#/Vol] 0.07 10*3/uL Normal 0.00-0.50 [facility] Comment on above: Performed By: #### L [id number] ####[facility] ([facility])[address] [place] [address] Eosinophils/100 WBC (Bld) 0.9 % Normal 0.0-6.0 [facility] Comment on above: Performed By: #### L [id number] ####[facility] [place] [address] Erythrocyte distribution width (RBC) [Ratio] 14.9 % Normal 11.5-15.0 [facility] Comment on above: Performed By: #### L [id number] ####[facility] (BEAKER)[address] [place] [address] ERYTHROCYTE MEAN CORPUSCULAR HEMOGLOBIN CONCENTRATION (G/DL) BY AUTOMATED 31.6 g/dL Low 32.0-35.0 [facility] Comment on above: Performed By: #### L [id number] ####[facility] (BEAKER)[address] [place] [address] Hematocrit (Bld) [Volume fraction] 28.5 % Low 39.0-55.0 [facility] Comment on above: Performed By: #### L [id number] ####[facility] (BEAKER)[address] [place] [address] Hemoglobin (Bld) [Mass/Vol] 9.0 g/dL Low 13.0-17.0 [facility] Comment on above: Performed By: #### L [id number] ####[facility] (BEAKER)[address] [place] [address] Immature granulocytes (Bld) [#/Vol] 0.03 10*3/uL Normal 0.00-0.20 [facility] Comment on above: Performed By: #### L [id number] ####[facility] (BEAKER)[address] [place] [address] Immature granulocytes/100 WBC (Bld) 0.4 % Normal 0.0-1.0 [facility] Comment on above: Performed By: #### L [id number] ####[facility] (BEAKER)[address] [place] [address] Lymphocytes (Bld) [#/Vol] 0.53 10*3/uL Low 1.20-4.00 [facility] Comment on above: Performed By: #### L [id number] ####[facility] (BEAKER)[address] [place] [address] Lymphocytes/100 WBC (Bld) 6.7 % Low 20.0-45.0 [facility] Comment on above: Performed By: #### L [id number] ####[facility] (BEAKER)[address] [place] [address] MCH (RBC) [Entitic mass] 32.8 pg Normal 27.0-33.0 [facility] Comment on above: Performed By: #### L [id number] ####[facility] (BEAKER)[address] [place] [address] MCV (RBC) [Entitic vol] 104.0 fL High 82.0-98.0 [facility] Comment on above: Performed By: #### L [id number] ####[facility] (BEAKER)[address] [place] [address] Monocytes (Bld) [#/Vol] 0.51 10*3/uL Normal 0.10-1.00 [facility] Comment on above: Performed By: #### L [id number] ####[facility] (BEAKER)[address] [place] [address] Monocytes/100 WBC (Bld) 6.4 % Normal 5.0-12.0 [facility] Comment on above: Performed By: #### L [id number] ####[facility] (BEAKER)[address] [place] [address] Neutrophils (Bld) [#/Vol] 6.78 10*3/uL Normal 1.60-7.60 [facility] Comment on above: Performed By: #### L [id number] ####[facility] (BEAKER)[address] [place] [address] Neutrophils/100 WBC (Bld) 85.5 % High 40.0-72.0 [facility] Comment on above: Performed By: #### L [id number] ####[facility] (BEAKER)[address] [place] [address] NRBC (PER 100 WBCS) BY AUTOMATED COUNT 0.0 % Normal 0 [facility] Comment on above: Performed By: #### L [id number] ####[facility] (BEAKER)[address] [place] [address] PLATELETS (10*3/UL) IN BLOOD AUTOMATED COUNT 224 10*3/uL Normal 150-400 [facility] Comment on above: Performed By: #### L [id number] ####[facility] ([facility])[address] [place] [address] RBC (Bld) [#/Vol] 2.74 10*6/uL Low 4.20-5.70 [facility] Comment on above: Performed By: #### L [id number] ####[facility] ([facility])[address] [place] [address] WBC (Bld) [#/Vol] 7.93 10*3/uL Normal 4.00-10.60 [facility] Comment on above: Performed By: #### L [id number] ####[facility] ([facility])[address] [place] [address] D-DIMER, QUANTITATIVEon 05-15 FIBRIN D-DIMER (UG/L FEU) IN PLATELET POOR PLASMA 2.62 mcg/mL FEU High 0.27-0.49 [facility] Comment on above: Order Comment: D-Dim er values of less than 0.50 ug/ml (FEU) are considered to be a negative predictor of thrombosis. However, the D-Dimer result should be used in conjunction with pretest probability and should not be used alone to diagnose a thrombotic event. Performed By: #### L [id number] ####[facility] ([facility])[address] [place] [address] HPon 05-27-2024 HP Normal [facility] LACTIC ACID WITH 4 HOUR REFL EXon 05-27-2024 LACTATE (MMOL/L) IN SER/PLAS 0.7 mmol/L Normal 0.5-2.2 [facility] Comment on above: Performed By: #### L [id number] ####[facility] ([facility])[address] [place] [address] MAGNESIUMon 05-27-2024 Magnesium [Mass/Vol] 2.2 mg/dL Normal 1.9-2.7 [facility] Comment on above: Performed By: #### L [id number] ####[facility] ([facility])[address] [place] [address] MRSA/MSSA DNA NASALon 2023 MRSA DNA Negative Normal Negative [facility] Comment on above: Order Comment: Testi [...] preclude nasal colonization. Performed By: #### L [id number] ####[facility] ([facility])[address] [place] [address] MSSA DNA Negative Normal Negative [facility] Comment on above: Order Comment: Testi [...] preclude nasal colonization. Performed By: #### L [id number] ####[facility] ([facility])[address] [place] [address] PHOSPHORUSon 05-27-2024 Magnesium [Mass/Vol] 5.9 mg/dL High 2.5-5.0 [facility] Comment on above: Performed By: #### L [id number] ####[facility] ([facility])[address] [place] [address] PRO-BNPon 05-27-2024 PRO B-TYPE NATRIURETIC PEPTIDE >13249 High 0-300 [facility] Comment on above: Result Comment: An a ge-independent cutoff point of 300 pg/ml has a 98% negative predictive value excluding acute heart failure.Test Performed by [employer] [address] [place] [id number] - Released 05/28/2024 01:08 Performed By: #### L [id number] ####[facility] [id number] [place] [address] RESPIRATORY VIRUS PCR PANELo n 05-27-2024 ADENOVIRUS DETECTION BY PCR Not detected Normal Not Detected [facility] Comment on above: Order Comment: Testi ng methodology is a multiplexed nucleic acid test intended for the simultaneous qualitative detection and differentiation of nucleic acids from multiple viral and bacterial respiratory organisms in nasopharyngeal swabs (FINANCIAL SYSTEMS DIRECTOR). Performed By: #### L [id number] ####[facility] ([facility])[address] [place] [address] B. PARAPERTUSSIS DNA Not detected Normal Not Detected [facility] Comment on above: Order Comment: Testi ng methodology is a multiplexed nucleic acid test intended for the simultaneous qualitative detection and differentiation of nucleic acids from multiple viral and bacterial respiratory organisms in nasopharyngeal swabs (FINANCIAL SYSTEMS DIRECTOR). Performed By: #### L [id number] ####[facility] ([facility])[address] [place] [address] BORDETELLA PERTUSSIS DNA PRESENCE IN UNSPECIFIED SPECIMEN BY ND* Not detected Normal Not Detected [facility] Comment on above: Order Comment: Testi ng methodology is a multiplexed nucleic acid test intended for the simultaneous qualitative detection and differentiation of nucleic acids from multiple viral and bacterial respiratory organisms in nasopharyngeal swabs (FINANCIAL SYSTEMS DIRECTOR). Performed By: #### L [id number] ####[facility] [place] [address] CHLAMYDOPHILA PNEUMONIAE Not detected Normal Not Detected [facility] Comment on above: Order Comment: Testi ng methodology is a multiplexed nucleic acid test intended for the simultaneous qualitative detection and differentiation of nucleic acids from multiple viral and bacterial respiratory organisms in nasopharyngeal swabs (FINANCIAL SYSTEMS DIRECTOR). Performed By: #### L [id number] ####[facility] ([facility])[address] [place] [address] CORONAVIRUS 229E Not detected Normal Not Detected [facility] Comment on above: Order Comment: Testi ng methodology is a multiplexed nucleic acid test intended for the simultaneous qualitative detection and differentiation of nucleic acids from multiple viral and bacterial respiratory organisms in nasopharyngeal swabs (FINANCIAL SYSTEMS DIRECTOR). Performed By: #### L [id number] ####[facility] ([facility])[address] [place] [address] CORONAVIRUS [id number] Not detected Normal Not Detected [facility] Comment on above: Order Comment: Testi ng methodology is a multiplexed nucleic acid test intended for the simultaneous qualitative detection and differentiation of nucleic acids from multiple viral and bacterial respiratory organisms in nasopharyngeal swabs (FINANCIAL SYSTEMS DIRECTOR). Performed By: #### L [id number] ####[facility] ([facility])[address] [place] [address] CORONAVIRUS [id number] Not detected Normal Not Detected [facility] Comment on above: Order Comment: Testi ng methodology is a multiplexed nucleic acid test intended for the simultaneous qualitative detection and differentiation of nucleic acids from multiple viral and bacterial respiratory organisms in nasopharyngeal swabs (FINANCIAL SYSTEMS DIRECTOR). Performed By: #### L [id number] ####[facility] ([facility])[address] [place] [address] CORONAVIRUS [id number] Not detected Normal Not Detected [facility] Comment on above: Order Comment: Testi ng methodology is a multiplexed nucleic acid test intended for the simultaneous qualitative detection and differentiation of nucleic acids from multiple viral and bacterial respiratory organisms in nasopharyngeal swabs (FINANCIAL SYSTEMS DIRECTOR). Performed By: #### L [id number] ####[facility] ([facility])[address] [place] [address] HUMAN METAPNEUMOVIRUS Not detected Normal Not Detected [facility] Comment on above: Order Comment: Testi ng methodology is a multiplexed nucleic acid test intended for the simultaneous qualitative detection and differentiation of nucleic acids from multiple viral and bacterial respiratory organisms in nasopharyngeal swabs (FINANCIAL SYSTEMS DIRECTOR). Performed By: #### L [id number] ####[facility] ([facility])[address] [place] [address] HUMAN RHINOVIRUS+ENTEROVIRUS Not detected Normal Not Detected [facility] Comment on above: Order Comment: Testi ng methodology is a multiplexed nucleic acid test intended for the simultaneous qualitative detection and differentiation of nucleic acids from multiple viral and bacterial respiratory organisms in nasopharyngeal swabs (FINANCIAL SYSTEMS DIRECTOR). Performed By: #### L [id number] ####[facility] ([facility])[address] [place] [address] INFLUENZA A Not detected Normal Not Detected [facility] Comment on above: Order Comment: Testi ng methodology is a multiplexed nucleic acid test intended for the simultaneous qualitative detection and differentiation of nucleic acids from multiple viral and bacterial respiratory organisms in nasopharyngeal swabs (FINANCIAL SYSTEMS DIRECTOR). Performed By: #### L [id number] ####[facility] ([facility])[address] [place] [address] INFLUENZA B Not detected Normal Not Detected [facility] Comment on above: Order Comment: Testi ng methodology is a multiplexed nucleic acid test intended for the simultaneous qualitative detection and differentiation of nucleic acids from multiple viral and bacterial respiratory organisms in nasopharyngeal swabs (FINANCIAL SYSTEMS DIRECTOR). Performed By: #### L [id number] ####[facility] ([facility])[address] [place] [address] MYCOPLASMA PNEUMONIAE Not detected Normal Not Detected [facility] Comment on above: Order Comment: Testi ng methodology is a multiplexed nucleic acid test intended for the simultaneous qualitative detection and differentiation of nucleic acids from multiple viral and bacterial respiratory organisms in nasopharyngeal swabs (FINANCIAL SYSTEMS DIRECTOR). Performed By: #### L [id number] ####[facility] ([facility])[address] [place] [address] PARAINFLUENZA 1 Not detected Normal Not Detected [facility] Comment on above: Order Comment: Testi ng methodology is a multiplexed nucleic acid test intended for the simultaneous qualitative detection and differentiation of nucleic acids from multiple viral and bacterial respiratory organisms in nasopharyngeal swabs (FINANCIAL SYSTEMS DIRECTOR). Performed By: #### L [id number] ####[facility] ([facility])[address] [place] [address] PARAINFLUENZA 2 Not detected Normal Not Detected [facility] Comment on above: Order Comment: Testi ng methodology is a multiplexed nucleic acid test intended for the simultaneous qualitative detection and differentiation of nucleic acids from multiple viral and bacterial respiratory organisms in nasopharyngeal swabs (FINANCIAL SYSTEMS DIRECTOR). Performed By: #### L [id number] ####[facility] ([facility])[address] [place] [address] PARAINFLUENZA 3 Not detected Normal Not Detected [facility] Comment on above: Order Comment: Testi ng methodology is a multiplexed nucleic acid test intended for the simultaneous qualitative detection and differentiation of nucleic acids from multiple viral and bacterial respiratory organisms in nasopharyngeal swabs (FINANCIAL SYSTEMS DIRECTOR). Performed By: #### L [id number] ####[facility] ([facility])[address]ArcoBalenoJO[place] [address] PARAINFLUENZA 4 Not detected Normal Not Detected [facility] Comment on above: Order Comment: Testi ng methodology is a multiplexed nucleic acid test intended for the simultaneous qualitative detection and differentiation of nucleic acids from multiple viral and bacterial respiratory organisms in nasopharyngeal swabs (FINANCIAL SYSTEMS DIRECTOR). Performed By: #### L [id number] ####[facility] ([facility])[address]ArcoBalenoJOINT [place] [address] RESP SYNCYTIAL VIRUS Not detected Normal Not Detected [facility] Comment on above: Order Comment: Testi ng methodology is a multiplexed nucleic acid test intended for the simultaneous qualitative detection and differentiation of nucleic acids from multiple viral and bacterial respiratory organisms in nasopharyngeal swabs (FINANCIAL SYSTEMS DIRECTOR). Performed By: #### L [id number] ####[facility] ([facility])[address] [place]coBalenoBRECK[place] [address] SARS-CoV-2 (COVID-19) RNA CHARLES+probe Ql (Unsp spec) Not detected Normal Not Detected [facility] Comment on above: Order Comment: Testi Suso methodology is a multiplexed nucleic acid test intended for the simultaneous qualitative detection and differentiation of nucleic acids from multiple viral and bacterial respiratory organisms in nasopharyngeal swabs (FINANCIAL SYSTEMS DIRECTOR). Performed By: #### L [id number] ####[facility] ([facility])[address] Maintenance AssistantTRIHEALTH [facility] [address] TRIGLYCERIDESon 05-27-2024 FASTING? unknown Normal [facility] Comment on above: Order Comment: Monit or triglycerides while patient is on propofol. Consult Nutrition if greater than 500 mg/dL. Performed By: #### L [id number] ####[facility] Maintenance AssistantTRIHEALTH [facility] [address] Magnesium [Mass/Vol] 105 mg/dL Normal 40-149 [facility] Comment on above: Order Comment: Monit or triglycerides while patient is on propofol. Consult Nutrition if greater than 500 mg/dL. Result Comment: TRIG LYCERIDE REFERENCE RANGE:20 YEARS AND OLDER CARDIOVASCULAR RISKLESS THAN 150 mg/dL LOW [id number] TO 199 mg/dL BORDERLINE [id number] mg/dL AND GREATER HIGH RISK Performed By: #### L [id number] ####[facility] (BEAKER)[address] [place] [address] TROPONIN Ion 05-27-2024 Troponin I.cardiac [Mass/Vol] 0.03 ng/mL Normal 0.00-0.04 [facility] Comment on above: Performed By: #### L [id number] ####[facility] (BEAKER)[address] [place] [address] TYPE AND SCREENon 05-27-2024 AB SCREEN Negative Normal [facility] Comment on above: Performed By: #### L [id number] ####[facility] BLOOD BANK, ABO group Nom (Bld) O Normal [facility] Comment on above: Performed By: #### L [id number] ####[facility] BLOOD BANK, RH TYPE IN BLOOD Positive Normal [facility] Comment on above: Performed By: #### L [id number] ####[facility] BLOOD BANK, VENOUS BLOOD GAS WITH IONIZE D CALCIUMon 05-27-2024 Base excess Calc (BldV) [Moles/Vol] 1.8 mmol/L Normal [facility] Comment on above: Performed By: #### L [id number] ####[facility] RESPIRATORY [id number] [place] [address] [place] CALCIUM IONIZED (MMOL/L) IN BLOOD 1.23 mmol/L Normal 1.15-1.33 [facility] Comment on above: Performed By: #### L [id number] ####[facility] RESPIRATORY [id number] [place] [address] [place] CO2 (BldV) [Partial pressure] 37 mm[Hg] Low 40-50 [facility] Comment on above: Performed By: #### L [id number] ####[facility] RESPIRATORY [id number] [place] [address] [place] HCO3 (Bld) [Moles/Vol] 25.7 mmol/L Normal [facility] Comment on above: Performed By: #### L [id number] ####[facility] RESPIRATORY [id number] [place] [address] [facility] Oxygen (BldV) [Partial pressure] 47 mm[Hg] High 35-45 [facility] Comment on above: Performed By: #### L [id number] ####[facility] RESPIRATORY [id number] [place] [address] [facility] OXYGEN SATURATION (%) IN VENOUS BLOOD 77.3 % High 65.0-75.0 [facility] Comment on above: Performed By: #### L [id number] ####[facility] RESPIRATORY [id number] [place] [address] [facility] PH OF VENOUS BLOOD 7.45 High 7.31-7.41 [facility] Comment on above: Performed By: #### L [id number] ####[facility] RESPIRATORY [id number] [place] [address] [facility] 36on 05-19-2024 36 Error Normal [facility] Erroneous Telephone Encounte stefano 05-19-2024 Erroneous Telephone Encounter Normal [facility] Basic Metabolic Panelon - Anion gap [Moles/Vol] 16 mmol/L 9 - 16 mmol/L [employer] Calcium [Mass/Vol] 9.4 mg/dL 8.6 - 10. 4 mg/dL [employer] Chloride [Moles/Vol] 96 mmol/L Low 98 - 10 7 mmol/L [employer] CO2 [Moles/Vol] 25 mmol/L 20 - 31 mmol/L [employer] Creatinine [Mass/Vol] 7.2 mg/dL Critically high 0.7 0 - 1.20 mg/dL [employer] Comment on above: Previous Alert Value Reported Est, Glom Filt Rate 8 Low - [facility] [employer] Comment on above: These results are not [...] [Mass/Vol] 98 mg/dL 74 - 99 mg/dL [facility] Interpretation and review of laboratory results Abnormal [facility] Potassium [Moles/Vol] 4.7 mmol/L 3.7 - 5.3 mmol/L [facility] Sodium [Moles/Vol] 137 mmol/L 136 - 145 mmol/L [facility] Urea nitrogen [Mass/Vol] 32 mg/dL High 6 - 20 mg/dL [facility] Basic Metabolic Profon 04-27 Anion gap [Moles/Vol] 16 mmol/L Normal 9-16 [facility] Comment on above: Performed By: #### C DP BMP, TROPI #### [facility] [address] [place] [address] [employer] Operator: Samuel Bui MD Calcium [Mass/Vol] 9.4 mg/dL Normal 8.6-10.4 [facility] Comment on above: Performed By: #### C DP, BMP, TROPI #### [facility] [address] [place] [address] [employer] Operator: Samuel Bui MD Chloride [Moles/Vol] 96 mmol/L Low 98-107 [facility] Comment on above: Performed By: #### C DP, BMP, TROPI #### [facility] [address] [place] [address] [employer] Operator: Samuel Bui MD CO2 [Moles/Vol] 25 mmol/L Normal 20-31 [facility] Comment on above: Performed By: #### C DP, BMP, TROPI #### [facility] [address] [place] [address] [employer] Operator: Samuel Bui MD Creatinine [Mass/Vol] 7.2 mg/dL Critically high 0.70-1.20 [facility] Comment on above: Result Comment: Prev ious Alert Value Reported Performed By: #### C LEATHA HILARIO, TROPI #### [address] [address] [employer] Operator: Samuel Bui MD GFR/1.73 sq M.predicted among non-blacks MDRD (S/P/Bld) [Vol rate/Area] 8 mL/min/{1.73_m2} Low >60 [facility] Comment on above: Result Comment: These results [...] renal tubular secretion. Performed By: #### C YANELIS BMP, TROPI #### [facility] [address] [place] [address] [employer]: Samuel Bui MD Glucose [Mass/Vol] 98 mg/dL Normal 74-99 [facility] Comment on above: Performed By: #### C YANELIS BMP, TROPI #### [facility] [address] [place] [address] [employer] Operator: Samuel Bui MD Potassium [Moles/Vol] 4.7 mmol/L Normal 3.7-5.3 [facility] Comment on above: Performed By: #### C YANELIS BMP, TROPI #### [address] [address] [employer] Operator: Samuel Bui MD Sodium [Moles/Vol] 137 mmol/L Normal 136-145 [facility] Comment on above: Performed By: #### C DP, BMP, TROPI #### [facility] [address] [place] [address] [employer] Operator: Samuel Bui MD Urea nitrogen [Mass/Vol] 32 mg/dL High 6-20 [facility] Comment on above: Performed By: #### C YANELIS, LEATHA, PAXTON #### [facility] [address] [place] [address] [employer] Operator: Samuel Bui MD CBC with Auto Differentialon 04-27-2024 Basophils (Bld) [#/Vol] [facility] Basophils/100 WBC (Bld) 0 % 0 - 2 % [facility] Eosinophils (Bld) [#/Vol] 0.05 10*3/uL [facility] Eosinophils/100 WBC (Bld) 1 % [...] WBC (Bld) 0 % 0 [facility] Interpretation and review of laboratory results Abnormal [facility] Lymphocytes/100 WBC (Bld) 8 % Low 24 - 43 % [facility] Lymphocytes/100 WBC (Bld) 0.72 % Low [facility] MCH (RBC) [Entitic mass] 31.4 pg 25.2 - 33.5 pg [facility] MCHC (RBC) [Mass/Vol] 31.7 g/dL 28.4 - 34.8 g/dL [facility] MCV (RBC) [Entitic vol] 99.3 fL 82.6 - 102.9 fL [facility] Monocytes/100 WBC (Bld) 8 % 3 - 12 % [facility] Monocytes/100 WBC (Bld) 0.72 % [facility] Neutrophils/100 WBC (Bld) 83 % High 36 - 65 % [facility] Nucleated RBC/100 WBC (Bld) [Ratio] 0.0 % 0.0 per 100 WBC [facility] Platelet mean volume (Bld) [Entitic vol] 9.9 fL 8.1 - 13.5 fL [facility] Platelets (Bld) [#/Vol] 206 10*3/uL [facility] RBC (Bld) [#/Vol] 2.80 10*6/uL Low 4.21 - 5.7 7 m/uL [facility] Segmented neutrophils/100 WBC (Bld) 7.94 % [facility] WBC other (Bld) [#/Vol] 9.5 [facility] CBC with Diffon 04-27-2024 Abs. Basophil <0.03 Normal 0.00-0.20 [facility] Comment on above: Performed By: #### C DP BMP, TROPI #### [place] [address] [employer] Operator: Samuel Bui MD Abs.Imm.Granulocyte 0.03 k/uL Normal 0.00-0.30 [facility] Comment on above: Performed By: #### C DP, BMP, TROPI #### [facility] [address] [place] [address] [employer] Operator: Samuel Bui MD Abs.Neutrophil (Seg) 7.94 k/uL Normal 1.50-8.10 [facility] Comment on above: Performed By: #### C DP, BMP, TROPI #### [facility] [address] [place] [address] [employer] Operator: Samuel Bui MD Basophils/100 WBC (Bld) 0 % Normal 0-2 [facility] Comment on above: Performed By: #### C DP, BMP, TROPI #### [facility] [address] [place] [address] [employer]: Samuel Bui MD Eosinophils (Bld) [#/Vol] 0.05 10*3/uL Normal 0.00-0.44 [facility] Comment on above: Performed By: #### C DP, BMP, TROPI #### [address] [address] [employer] Operator: Samuel Bui MD Eosinophils/100 WBC (Bld) 1 % Normal 1-4 [facility] Comment on above: Performed By: #### C DP, BMP, TROPI #### [facility] [address] [place] [address] [employer] Operator: Samuel Bui MD Erythrocyte distribution width (RBC) [Ratio] 13.3 % Normal 11.8-14.4 [facility] Comment on above: Performed By: #### C DP, BMP, TROPI #### [place] [address] [employer] Operator: Samuel Bui MD Hematocrit (Bld) [Volume fraction] 27.8 % Low 40.7-50.3 [facility] Comment on above: Performed By: #### C DP, BMP, TROPI #### [place] [address] [employer] Operator: Samuel Bui MD Hemoglobin (Bld) [Mass/Vol] 8.8 g/dL Low 13.0-17.0 [facility] Comment on above: Performed By: #### C DP, BMP, TROPI #### [address] [address] [employer] Operator: Samuel Bui MD Immature granulocytes/100 WBC (Bld) 0 % Normal 0 [facility] Comment on above: Performed By: #### C DP, BMP, TROPI #### [address] [address] [employer] Operator: Samuel Bui MD Lymphocytes (Bld) [#/Vol] 0.72 10*3/uL Low 1.10-3.70 [facility] Comment on above: Performed By: #### C DP, BMP, TROPI #### [address] [address] [employer] Operator: Samuel Bui MD Lymphocytes/100 WBC (Bld) 8 % Low 24-43 [facility] Comment on above: Performed By: #### C DP, BMP, TROPI #### [place] [address] [employer] Operator: Samuel Bui MD MCH (RBC) [Entitic mass] 31.4 pg Normal 25.2-33.5 [facility] Comment on above: Performed By: #### C DP, BMP, TROPI #### [place] [address] [employer]: Samuel Bui MD MCHC (RBC) [Mass/Vol] 31.7 g/dL Normal 28.4-34.8 [facility] Comment on above: Performed By: #### C DP, BMP, TROPI #### [address] [address] [employer] Operator: Samuel Bui MD MCV (RBC) [Entitic vol] 99.3 fL Normal 82.6-102.9 [facility] Comment on above: Performed By: #### C DP, BMP, TROPI #### [address] [address] [employer] Operator: Samuel Bui MD Monocytes (Bld) [#/Vol] 0.72 10*3/uL Normal 0.10-1.20 [facility] Comment on above: Performed By: #### C DP, BMP, TROPI #### [address] [address] [employer] Operator: Samuel Bui MD Monocytes/100 WBC (Bld) 8 % Normal 3-12 [facility] Comment on above: Performed By: #### C DP, BMP, TROPI #### [address] [address] [employer] Operator: Samuel Bui MD Neutrophil (Seg) 83 % High 36-65 [facility] Comment on above: Performed By: #### C DP, BMP, TROPI #### [address] [address] [employer] Operator: Samuel Bui MD NRBC Automated 0.0 per 100 WBC Normal 0.0 [facility] Comment on above: Performed By: #### C DP, BMP, TROPI #### [address] [address] [employer] Operator: Samuel Bui MD Platelet mean volume (Bld) [Entitic vol] 9.9 fL Normal 8.1-13.5 [facility] Comment on above: Performed By: #### C DP, BMP, TROPI #### [address] [address] [employer]: Samuel Bui MD Platelets (Bld) [#/Vol] 206 10*3/uL Normal 138-453 [facility] Comment on above: Performed By: #### C DP, BMP, TROPI #### [address] [address] [employer] Operator: Samuel Bui MD RBC (Bld) [#/Vol] 2.80 10*6/uL Low 4.21-5.77 [facility] Comment on above: Performed By: #### C DP, BMP, TROPI #### [address] [address] [employer] Operator: Samuel Bui MD WBC (Bld) [#/Vol] 9.5 10*3/uL Normal 3.5-11.3 [facility] Comment on above: Performed By: #### C DP, BMP, TROPI #### [facility] [address] [place], [place] [phone] [employer] Operator: Samuel Bui MD MRSA DNA Probe, Nasalon 04-14 Interpretation and review of laboratory results Abnormal [facility] MRSA, DNA, Nasal POSITIVE: MRSA DNA detected by nucleic acid amplification. Abnormal NEGATIVE [facility] Comment on above: Results should be used as an adjunct to nosocomial control efforts to identify patients needing enhanced precautions. The test is not intended to identify patients with staphylococcal infections. Results should not be used to guide or monitor treatment for MRSA infections. Specimen Description .NASAL SWAB [facility] MRSA, DNA, Nasalon MRSA, DNA, Nasal POSITIVE: MRSA DNA detected by nucleic acid amplification. Abnormal NEG [facility] Comment on above: Result Comment: Results should be used as an adjunct to nosocomial control efforts to identify patients needing enhanced precautions. The test is not intended to identify patients with staphylococcal infections. Results should not be used to guide or monitor treatment for MRSA infections. Performed By: #### M RSANO #### [facility] [address] [place] [address] [phone] [employer] Operator: Samuel Bui MD Troponinon 04-27-2024 Interpretation and review of laboratory results Abnormal [facility] Troponin I.cardiac High sensitivity method [Mass/Vol] 162 ng/L Critically high 0 - 22 ng/L [facility] Comment on above: High Sensitivity Tro ponin values cannot be compared with other Troponin methodologies. Previous Alert Value Reported [facility] Troponin, High Sens 162 ng/L Critically high 0-22 [facility] Comment on above: Result Comment: High Sensitivity Troponin values cannot be compared with other Troponin methodologies. Previous Alert Value Reported Performed By: #### C DP, BMP, TROPI #### [facility] [address] [place], [place] [id number] [employer] Operator: Samuel Bui MD Basic Metabolic Panelon 04-14 Anion gap [Moles/Vol] 19 mmol/L High 9 - 16 mmol/L [facility] Calcium [Mass/Vol] 9.5 mg/dL 8.6 - 10. 4 mg/dL [facility] Chloride [Moles/Vol] 92 mmol/L Low 98 - 10 7 mmol/L [facility] CO2 [Moles/Vol] 21 mmol/L 20 - 31 mmol/L [facility] Creatinine [Mass/Vol] 9.9 mg/dL Critically high 0.7 0 - 1.20 mg/dL [facility] Est, Glom Filt Rate 6 Low - [facility] Comment on above: These results are not [...] 138 mg/dL High 74 - 99 mg/dL [facility] Potassium [Moles/Vol] 5.1 mmol/L 3.7 - 5.3 mmol/L [facility] Sodium [Moles/Vol] 132 mmol/L Low 136 - 145 mmol/L [facility] Urea nitrogen [Mass/Vol] 47 mg/dL High 6 - 20 mg/dL [facility] Basic Metabolic Profon 04-26 Anion gap [Moles/Vol] 19 mmol/L High 9-16 [facility] Comment on above: Performed By: #### B WASHER MACHINE, BMP, CDP, MG, KAILEY, TROPI #### [facility] [address] [place] [address] [phone] [employer]: Samuel Bui MD Calcium [Mass/Vol] 9.5 mg/dL Normal 8.6-10.4 [facility] Comment on above: Performed By: #### B WASHER MACHINE, BMP, CDP, MG, KAILEY, TROPI #### [facility] [address] [place] [address] [phone] [employer]: Samuel Bui MD Chloride [Moles/Vol] 92 mmol/L Low 98-107 [facility] Comment on above: Performed By: #### B WASHER MACHINE, BMP, CDP, MG, KAILEY, TROPI #### [facility] [address] [place] [address] [phone] [employer] Operator: Samuel Bui MD CO2 [Moles/Vol] 21 mmol/L Normal 20-31 [facility] Comment on above: Performed By: #### B WASHER MACHINE, BMP, CDP, MG, KAILEY, TROPI #### [facility] [address] [place] [address] [phone] [employer] Operator: Samuel Bui MD Creatinine [Mass/Vol] 9.9 mg/dL Critically high 0.70-1.20 [facility] Comment on above: Performed By: #### B WASHER MACHINE, BMP, CDP, MG, KAILEY, TROPI #### [facility] [address] [place] [address] [phone] [employer]: Samuel Bui MD GFR/1.73 sq M.predicted among non-blacks MDRD (S/P/Bld) [Vol rate/Area] 6 mL/min/{1.73_m2} Low >60 [facility] Comment on above: Result Comment: These results [...] renal tubular secretion. Performed By: #### B WASHER MACHINE, BMP, CDP, MG, KAILEY, TROPI #### [facility] [address] [place] [address] [phone] [employer] Operator: Samuel Bui MD Glucose [Mass/Vol] 138 mg/dL High 74-99 [facility] Comment on above: Performed By: #### B WASHER MACHINE, BMP, CDP, MG, KAILEY, TROPI #### [facility] [place] [address] [employer] Operator: Smauel Bui MD Potassium [Moles/Vol] 5.1 mmol/L Normal 3.7-5.3 [facility] Comment on above: Performed By: #### B WASHER MACHINE, BMP, CDP, MG, KAILEY, TROPI #### [facility] [address] [place] [phone] [employer] Operator: Samuel Bui MD Sodium [Moles/Vol] 132 mmol/L Low 136-145 [facility] Comment on above: Performed By: #### B WASHER MACHINE, BMP, CDP, MG, KAILEY, TROPI #### [facility] [address] [place] [phone] [employer] Operator: Samuel Bui MD Urea nitrogen [Mass/Vol] 47 mg/dL High 6-20 [facility] Comment on above: Performed By: #### B WASHER MACHINE, BMP, CDP, MG, KAILEY, TROPI #### [facility] [address] [place] [phone] [employer] Operator: Samuel Bui MD Brain Natri. Peptideon 04-26 Natriuretic peptide B (Bld) [Mass/Vol] 44505 pg/mL High 0-300 [facility] Comment on above: Result Comment: An a ge-independent cutoff point of 300 pg/ml has a 98% negative predictive value excluding acute heart failure. Performed By: #### B WASHER MACHINE, BMP, CDP, MG, KAILEY, TROPI #### [facility] [address] [place] [phone] [employer]: Samuel Bui MD Brain natriuretic peptideon 04-26-2024 Interpretation and review of laboratory results Abnormal [facility] Natriuretic peptide B (Bld) [Mass/Vol] 01262 pg/mL High 0 - 300 pg/mL [facility] Comment on above: An age-independent c utoff point of 300 pg/ml has a 98% negative predictive value excluding acute heart failure. [facility] CBC with Auto Differentialon 04-26-2024 Basophils (Bld) [#/Vol] 0.00 10*3/uL [facility] Basophils/100 WBC (Bld) 0 % 0 - 2 % [facility] Eosinophils (Bld) [#/Vol] 0.00 10*3/uL [facility] Eosinophils/100 WBC (Bld) 0 % Low 1 - 4 % [facility] Erythrocyte distribution width (RBC) [Ratio] 13.1 % 11.8 - 14.4 % [facility] Hematocrit (Bld) [Volume fraction] 30.8 % Low 40.7 - 50.3 % [facility] Hemoglobin (Bld) [Mass/Vol] 9.5 g/dL Low 13.0 - 17.0 g/dL [facility] Immature granulocytes (Bld) [#/Vol] 0.00 10*3/uL [facility] Immature granulocytes/100 WBC (Bld) 0 % 0 [facility] Interpretation and review of laboratory results Abnormal [facility] Lymphocytes/100 WBC (Bld) 3 % Low 24 - 43 % [facility] Lymphocytes/100 WBC (Bld) 0.23 % Low [facility] MCH (RBC) [Entitic mass] 30.8 pg 25.2 - 33.5 pg [facility] MCHC (RBC) [Mass/Vol] 30.8 g/dL 28.4 - 34.8 g/dL [facility] MCV (RBC) [Entitic vol] 100.0 fL 82.6 - 102.9 fL [facility] Monocytes/100 WBC (Bld) 1 % Low 3 - 12 % [facility] Monocytes/100 WBC (Bld) 0.08 % Low [facility] Morphology Julian (Bld) [Interp] Normal [facility] Neutrophils/100 WBC (Bld) 96 % High 36 - 65 % [facility] Nucleated RBC/100 WBC (Bld) [Ratio] 0.0 % 0.0 per 100 WBC [facility] Platelet mean volume (Bld) [Entitic vol] 9.8 fL 8.1 - 13.5 fL [facility] Platelets (Bld) [#/Vol] 202 10*3/uL [facility] RBC (Bld) [#/Vol] 3.08 10*6/uL Low 4.21 - 5.7 7 m/uL [facility] Segmented neutrophils/100 WBC (Bld) 7.29 % [facility] WBC other (Bld) [#/Vol] 7.6 [facility] CBC with Diffon 04-26-2024 Abs. Basophil 0.00 k/uL Normal 0.00-0.20 [facility] Comment on above: Performed By: #### B WASHER MACHINE, BMP, CDP, MG, KAILEY, TROPI #### [place] [address] [employer] Operator: Samuel Bui MD Abs.Imm.Granulocyte 0.00 k/uL Normal 0.00-0.30 [facility] Comment on above: Performed By: #### B WASHER MACHINE, BMP, CDP, MG, KAILEY, TROPI #### [facility] [address] [place] [address] [employer] Operator: Samuel Bui MD Abs.Neutrophil (Seg) 7.29 k/uL Normal 1.50-8.10 [facility] Comment on above: Performed By: #### B WASHER MACHINE, BMP, CDP, MG, KAILEY, TROPI #### [facility] [address] [place] [address] [employer] Operator: Samuel Bui MD Basophils/100 WBC (Bld) 0 % Normal 0-2 [facility] Comment on above: Performed By: #### B WASHER MACHINE, BMP, CDP, MG, KAILEY, TROPI #### [facility] [address] [place] [address] [phone] [employer] Operator: Samuel Bui MD Eosinophils (Bld) [#/Vol] 0.00 10*3/uL Normal 0.00-0.44 [facility] Comment on above: Performed By: #### B WASHER MACHINE, BMP, CDP, MG, KAILEY, TROPI #### [facility] [address] [place] [phone] [employer] Operator: Samuel Bui MD Eosinophils/100 WBC (Bld) 0 % Low 1-4 [facility] Comment on above: Performed By: #### B WASHER MACHINE, BMP, CDP, MG, KAILEY, TROPI #### [address] [address] [employer] Operator: Samuel Bui MD Immature granulocytes/100 WBC (Bld) 0 % Normal 0 [facility] Comment on above: Performed By: #### B WASHER MACHINE, BMP, CDP, MG, KAILEY, TROPI #### [address] [address] [employer] Operator: Samuel Bui MD Lymphocytes (Bld) [#/Vol] 0.23 10*3/uL Low 1.10-3.70 [facility] Comment on above: Performed By: #### B WASHER MACHINE, BMP, CDP, MG, KAILEY, TROPI #### [facility] [address] [place] [phone] [employer] Operator: Samuel Bui MD Lymphocytes/100 WBC (Bld) 3 % Low 24-43 [facility] Comment on above: Performed By: #### B WASHER MACHINE, BMP, CDP, MG, KAILEY, TROPI #### [facility] [address] [place] [phone] [employer] Operator: Samuel Bui MD Monocytes (Bld) [#/Vol] 0.08 10*3/uL Low 0.10-1.20 [facility] Comment on above: Performed By: #### B WASHER MACHINE, BMP, CDP, MG, KAILEY, TROPI #### [facility] [address] [place] [phone] [employer] Operator: Samuel Bui MD Monocytes/100 WBC (Bld) 1 % Low 3-12 [facility] Comment on above: Performed By: #### B WASHER MACHINE, BMP, CDP, MG, KAILEY, TROPI #### [facility] [address] [place] [phone] [employer] Operator: Samuel Bui MD Morphology Julian (Bld) [Interp] Normal Normal [facility] Comment on above: Performed By: #### B WASHER MACHINE, BMP, CDP, MG, KAILEY, TROPI #### [facility] [address] [place] [phone] [employer] Operator: Samuel Bui MD Neutrophil (Seg) 96 % High 36-65 [facility] Comment on above: Performed By: #### B WASHER MACHINE, BMP, CDP, MG, KAILEY, TROPI #### [address] [address] [employer] Operator: Samuel Bui MD Erythrocyte distribution width (RBC) [Ratio] 13.1 % Normal 11.8-14.4 [facility] Comment on above: Performed By: #### B WASHER MACHINE, BMP, CDP, MG, KAILEY, TROPI #### [facility] [address] [place] [phone] [employer] Operator: Samuel Bui MD Hematocrit (Bld) [Volume fraction] 30.8 % Low 40.7-50.3 [facility] Comment on above: Performed By: #### B WASHER MACHINE, BMP, CDP, MG, KAILEY, TROPI #### [facility] [address] [place] [phone] [employer] Operator: Samuel Bui MD Hemoglobin (Bld) [Mass/Vol] 9.5 g/dL Low 13.0-17.0 [facility] Comment on above: Performed By: #### B WASHER MACHINE, BMP, CDP, MG, KAILEY, TROPI #### [facility] [address] [place] [phone] [employer] Operator: Samuel Bui MD MCH (RBC) [Entitic mass] 30.8 pg Normal 25.2-33.5 [facility] Comment on above: Performed By: #### B WASHER MACHINE, BMP, CDP, MG, KAILEY, TROPI #### [address] [phone] [employer]: Samuel Bui MD MCHC (RBC) [Mass/Vol] 30.8 g/dL Normal 28.4-34.8 [facility] Comment on above: Performed By: #### B WASHER MACHINE, BMP, CDP, MG, KAILEY, TROPI #### [address] [address] [employer] Operator: Samuel Bui MD MCV (RBC) [Entitic vol] 100.0 fL Normal 82.6-102.9 [facility] Comment on above: Performed By: #### B WASHER MACHINE, BMP, CDP, MG, KAILEY, TROPI #### [address] [address] [employer] Operator: Samuel Bui MD NRBC Automated 0.0 per 100 WBC Normal 0.0 [facility] Comment on above: Performed By: #### B WASHER MACHINE, BMP, CDP, MG, KAILEY, TROPI #### [address] [address] [employer] Operator: Samuel Bui MD Platelet mean volume (Bld) [Entitic vol] 9.8 fL Normal 8.1-13.5 [facility] Comment on above: Performed By: #### B WASHER MACHINE, BMP, CDP, MG, KAILEY, TROPI #### [address] [address] [employer] Operator: Samuel Bui MD Platelets (Bld) [#/Vol] 202 10*3/uL Normal 138-453 [facility] Comment on above: Performed By: #### B WASHER MACHINE, BMP, CDP, MG, KAILEY, TROPI #### [facility] [place] [address] [employer] Operator: Samuel Bui MD RBC (Bld) [#/Vol] 3.08 10*6/uL Low 4.21-5.77 [facility] Comment on above: Performed By: #### B WASHER MACHINE, BMP, CDP, MG, KAILEY, TROPI #### [facility] [address] [place] [phone] [employer] Operator: Samuel Bui MD WBC (Bld) [#/Vol] 7.6 10*3/uL Normal 3.5-11.3 [facility] Comment on above: Performed By: #### B WASHER MACHINE, BMP, CDP, MG, KAILEY, TROPI #### [facility] [address] [place] [phone] [employer] Operator: Samuel Bui MD Hep B Surf Agon 04-26-2024 Hep B Surf Ag Non-Reactive Normal NR [facility] Comment on above: Performed By: #### B WASHER MACHINE, BMP, CDP, MG, KAILEY, TROPI #### [facility] [address] [place] [address] [employer] Operator: Samuel Bui MD Hepatitis B Surface Antigeno n 04-26-2024 HBV surface Ag IA Ql Non-Reactive NONREACTIVE B ON [facility] MRSA, DNA, Nasalon 4 Specimen Description .NASAL SWAB Normal [facility] Comment on above: Performed By: #### M RSANO #### [facility] [address] [place] [phone] [employer] Operator: Samuel Bui MD Magnesiumon 04-26-2024 Magnesium [Mass/Vol] 2.9 mg/dL High 1.6 - 2 .6 mg/dL [facility] Magnesium [Mass/Vol] 2.9 mg/dL High 1.6-2.6 [facility] Comment on above: Performed By: #### B WASHER MACHINE, BMP, CDP, MG, KAILEY, TROPI #### [facility] [address] [place] [address] [employer] Operator: Samuel Bui MD No Panel Informationon 04-26 Interpretation and review of laboratory results Abnormal [facility] Phosphoruson 04-26-2024 Phosphate [Mass/Vol] 5.0 mg/dL High 2.5 - 4 .5 mg/dL [facility] Phosphorus, Inorg.on 024 Phosphorus, Inorg. 5.0 mg/dL High 2.5-4.5 [facility] Comment on above: Performed By: #### B WASHER MACHINE, BMP, CDP, MG, KAILEY, TROPI #### [facility] [place] [address] [employer] Operator: Samuel Bui MD Troponinon 04-26-2024 Troponin I.cardiac High sensitivity method [Mass/Vol] 159 ng/L Critically high 0 - 22 ng/L [facility] Comment on above: High Sensitivity Tro ponin values cannot be compared with other Troponin methodologies. Troponin, High Sens 159 ng/L Critically high 0-22 [facility] Comment on above: Result Comment: High Sensitivity Troponin values cannot be compared with other Troponin methodologies. Performed By: #### B WASHER MACHINE, BMP, CDP, MG, KAILEY, TROPI #### [facility] [place] [address] [employer] Operator: Samuel Bui MD Orders Onlyon 04-07-2024 Orders Only [facility] 36on 04-04-2024 36 Returned patients telephone call. Patient voicing concerns about having to wait for lymph node biopsy. I reassured Mr. Decker and he verbalized understanding and appreciation. Normal [facility] 36on 04-03-2024 36 [facility] Documentationon 04-03-2024 Documentation [facility] Telephoneon 04-03-2024 Telephone Normal [facility] 36on 03-25-2024 36 Normal [facility] 36on 03-17-2024 36 Duplicate. Rx sent 03/17/2024 Normal [facility] 36 Prescription sent Normal [facility] BASIC METABOLIC PANELon 05-2 Anion gap [Moles/Vol] 18 mmol/L Normal 7-[address] [facility] Comment on above: Performed By: #### L [id number] ####[facility] ([facility])[address]ArcoBalenoBRECK[place] [address] Calcium [Mass/Vol] 9.6 mg/dL Normal 8.6-10.3 [facility] Comment on above: Performed By: #### L [id number] ####[facility] ([facility])[address] Maintenance AssistantTRIHEALTH [facility] [address] Chloride [Moles/Vol] 90 mmol/L Low 98-107 [facility] Comment on above: Performed By: #### L [id number] ####[facility] ([facility] Maintenance AssistantTRIHEALTH [facility] [address] CO2 [Moles/Vol] 29 mmol/L Normal 21-31 [facility] Comment on above: Performed By: #### L [id number] ####[facility] ([facility])[address] Maintenance AssistantTRIHEALTH [facility] [address] Creatinine [Mass/Vol] 8.20 mg/dL High 0.70-1.[address] [facility] Comment on above: Performed By: #### L [id number] ####[facility] ([facility])[address]ArcoBalenoBRECK[place] [address] GLOMERULAR FILTRATION RATE ML/MIN/1.73 SQ M.PREDICTED 7.1 mL/min/1.73m*2 Low >60.0 [facility] Comment on above: Result Comment: [facility]???s estimated glomerular filtration rate (eGFR) will [...] of individuals. Performed By: #### L [id number] ####[facility] ([facility])[address] [place] [address] Glucose [Mass/Vol] 78 mg/dL Normal 70-100 [facility] Comment on above: Performed By: #### L [id number] ####[facility] ([facility])[address] [place] [address] Potassium [Moles/Vol] 5.2 mmol/L High 3.5-5.1 [facility] Comment on above: Performed By: #### L [id number] ####[facility] ([facility])[address] [place] [address] Sodium [Moles/Vol] 132 mmol/L Low 136-145 [facility] Comment on above: Performed By: #### L [id number] ####[facility] ([facility])[address] [place] [address] Urea nitrogen [Mass/Vol] 29 mg/dL High 7-25 [facility] Comment on above: Performed By: #### L [id number] ####[facility] ([facility])[address] [place] [address] UREA NITROGEN/CREATININE (MASS RATIO) IN SER/PLAS 3.5 Normal [facility] Comment on above: Performed By: #### L [id number] ####[facility] ([facility])[address] [place] [address] CBC WITH AUTO DIFFERENTIALon 03-12-2024 Basophils (Bld) [#/Vol] 0.07 10*3/uL Normal 0.00-0.20 [facility] Comment on above: Performed By: #### L [id number] ####[facility] ([facility])[address] [place] [address] Basophils/100 WBC (Bld) 0.8 % Normal 0.0-1.0 [facility] Comment on above: Performed By: #### L [id number] ####[facility] (BEAKER)[address] [place] [address] Eosinophils (Bld) [#/Vol] 0.31 10*3/uL Normal 0.00-0.50 [facility] Comment on above: Performed By: #### L [id number] ####[facility] [place] [address] Eosinophils/100 WBC (Bld) 3.4 % Normal 0.0-6.0 [facility] Comment on above: Performed By: #### L [id number] ####[facility] ([facility])[address] [place] [address] Erythrocyte distribution width (RBC) [Ratio] 13.1 % Normal 11.5-15.0 [facility] Comment on above: Performed By: #### L [id number] ####[facility] ([facility])[address] [place] [address] ERYTHROCYTE MEAN CORPUSCULAR HEMOGLOBIN CONCENTRATION (G/DL) BY AUTOMATED 33.1 g/dL Normal 32.0-35.0 [facility] Comment on above: Performed By: #### L [id number] ####[facility] (BEAKER)[address] [place] [address] Hematocrit (Bld) [Volume fraction] 43.2 % Normal 39.0-55.0 [facility] Comment on above: Performed By: #### L [id number] ####[facility] (BEAKER)[address] [place] [address] Hemoglobin (Bld) [Mass/Vol] 14.3 g/dL Normal 13.0-17.0 [facility] Comment on above: Performed By: #### L [id number] ####[facility] ([facility]ER)[address] [place] [address] Immature granulocytes (Bld) [#/Vol] 0.05 10*3/uL Normal 0.00-0.20 [facility] Comment on above: Performed By: #### L [id number] ####[facility] (BEAKER)[address] [place] [address] Immature granulocytes/100 WBC (Bld) 0.5 % Normal 0.0-1.0 [facility] Comment on above: Performed By: #### L [id number] ####[facility] (BEAKER)[address] [place] [address] Lymphocytes (Bld) [#/Vol] 0.58 10*3/uL Low 1.20-4.00 [facility] Comment on above: Performed By: #### L [id number] ####[facility] ([facility])[address] [place] [address] Lymphocytes/100 WBC (Bld) 6.4 % Low 20.0-45.0 [facility] Comment on above: Performed By: #### L [id number] ####[facility] [place] [address] MCH (RBC) [Entitic mass] 33.2 pg High 27.0-33.0 [facility] Comment on above: Performed By: #### L [id number] ####[facility] ([facility] [place] [address] MCV (RBC) [Entitic vol] 100.2 fL High 82.0-98.0 [facility] Comment on above: Performed By: #### L [id number] ####[facility] ([facility] [place] [address] Monocytes (Bld) [#/Vol] 0.57 10*3/uL Normal 0.10-1.00 [facility] Comment on above: Performed By: #### L [id number] ####[facility] (BEAKER)[address] [place] [address] Monocytes/100 WBC (Bld) 6.3 % Normal 5.0-12.0 [facility] Comment on above: Performed By: #### L [id number] ####[facility] (BEAKER)[address] [place] [address] Neutrophils (Bld) [#/Vol] 7.54 10*3/uL Normal 1.60-7.60 [facility] Comment on above: Performed By: #### L [id number] ####[facility] ([facility])[address] [place] [address] Neutrophils/100 WBC (Bld) 82.6 % High 40.0-72.0 [facility] Comment on above: Performed By: #### L [id number] ####[facility] ([facility])[address] [place] [address] NRBC (PER 100 WBCS) BY AUTOMATED COUNT 0.0 % Normal 0 [facility] Comment on above: Performed By: #### L [id number] ####[facility] ([facility])[address] [place] [address] PLATELETS (10*3/UL) IN BLOOD AUTOMATED COUNT 306 10*3/uL Normal 150-400 [facility] Comment on above: Performed By: #### L [id number] ####[facility] ([facility])[address] [place] [place] [address] RBC (Bld) [#/Vol] 4.31 10*6/uL Normal 4.20-5.70 [facility] Comment on above: Performed By: #### L [id number] ####[facility] ([facility])[address] [place] [address] WBC (Bld) [#/Vol] 9.12 10*3/uL Normal 4.00-10.60 [facility] Comment on above: Performed By: #### L [id number] ####[facility] ([facility])[address] [place] [address] Consulton 03-12-2024 Consult Normal [facility] Labon 03-12-2024 Lab Normal [facility] PROTIME-INRon 03-12-2024 INR IN PPP BY COAGULATION ASSAY 0.98 Normal 0.90-1.10 [facility] Comment on above: Result Comment: ACCC [...] CHEST 1995;[id number]. Performed By: #### L [id number] ####[facility] (BEAKER)[address] [place] [address] PROTHROMBIN TIME (PT) IN PPP BY COAGULATION ASSAY 13.0 Seconds Normal 12.3-14.8 [facility] Comment on above: Performed By: #### L [id number] ####[facility] ([facility]AKER)[address] [place] [address] Potassium [Moles/volume] in Serum or PlasmaOrdered By: Junior Mayo on 02-21-2024 Potassium [Moles/Vol] 5.4 mmol/L 3.5-5.1 [facility] Potassium [Moles/volume] in Serum or PlasmaOrdered By: Junior Mayo on 02-07-2024 Potassium [Moles/Vol] 5.1 mmol/L 3.5-5.1 [facility] Alanine aminotransferase [En zymatic activity/volume] in Serum or PlasmaOrdered By: Percy Herrera on 01-09-2024 ALT [Catalytic activity/Vol] 12 U/L 752 [facility] Albumin [Mass/volume] in Ser um or Plasma by Bromocresol green (BCG) dye binding methoOrdered By: Percy Herrera on 01-09-2024 Albumin BCG dye [Mass/Vol] 4.2 g/dL 3.5-5.7 [facility] Alkaline phosphatase [Enzyma tic activity/volume] in Serum or PlasmaOrdered By: Percy Herrera on 01-09-2024 ALP [Catalytic activity/Vol] 72 U/L 34-104 [facility] Aspartate aminotransferase [ Enzymatic activity/volume] in Serum or PlasmaOrdered By: Percy Herrera on 01-09-2024 AST [Catalytic activity/Vol] 15 U/L 13-39 [facility] Basophils Auto (Bld) [#/Vol] Ordered By: Percy Herrera on 01-09-2024 Basophils (Bld) [#/Vol] 0.1 10*3/uL 0.0-0.2 [facility] Basophils/100 WBC Auto (Bld) Ordered By: Percy Herrera on 01-09-2024 Basophils/100 WBC (Bld) 1.1 % . [facility] Bilirubin.total [Mass/volume ] in Serum or PlasmaOrdered By: Percy Herrera on 01-09-2024 Bilirubin [Mass/Vol] 0.6 mg/dL 0.3-1.0 [facility] Calcium [Mass/volume] in Ser um or PlasmaOrdered By: Percy Herrera on 01-09-2024 Calcium [Mass/Vol] 9.5 mg/dL 8.6-10.3 [facility] Carbon dioxide, total [Moles /volume] in Serum or PlasmaOrdered By: Percy Herrera on 01-09-2024 CO2 [Moles/Vol] 28.9 mmol/L 21.0-31.[address] [facility] Chloride [Moles/volume] in S timi or PlasmaOrdered By: Percy Herrera on 01-09-2024 Chloride [Moles/Vol] 95 mmol/L 98-107 [facility] Creatinine [Mass/volume] in Serum or PlasmaOrdered By: Percy Herrera on 01-09-2024 Creatinine [Mass/Vol] 5.40 mg/dL 0.70-1.30 [facility] Comment on above: Delta: 13.26 on 12/14 Eosinophils Auto (Bld) [#/Vo l]Ordered By: Percy Herrera on 01-09-2024 Eosinophils (Bld) [#/Vol] 0.6 10*3/uL 0.0-0.45 [facility] Eosinophils/100 WBC Auto (Bl d)Ordered By: Percy Herrera on 01-09-2024 Eosinophils/100 WBC (Bld) 4.9 % . [facility] Erythrocyte distribution wid th Auto (RBC) [Ratio]Ordered By: Percy Herrera on 01-09-2024 Erythrocyte distribution width (RBC) [Ratio] 17.7 % 12.0-14.8 [facility] Globulin Calc (S) [Mass/Vol] Ordered By: Percy Herrera on 01-09-2024 Globulin (S) [Mass/Vol] 2.6 g/dL [facility] Glucose [Mass/volume] in Ser um or PlasmaOrdered By: Percy Herrera on 01-09-2024 Glucose [Mass/Vol] 77 mg/dL 70-100 [facility] Comment on above: ADA recommended refe rence rangeRandom Glucose Reference Range is dependent on time and content of last meal. Glucose of more than 200 mg/dL in a nonstressed, ambulatory subject supports the diagnosis of Diabetes Mellitus. Hematocrit Auto (Bld) [Volum e fraction]Ordered By: Percy Herrera on 01-09-2024 Hematocrit (Bld) [Volume fraction] 26.1 % 38.8-50.0 [facility] Hemoglobin [Mass/volume] in BloodOrdered By: Percy Herrera on 01-09-2024 Hemoglobin (Bld) [Mass/Vol] 8.7 g/dL 13.0-17.0 [facility] Leukocytes [#/volume] correc bernardo for nucleated erythrocytes in Blood by Automated counOrdered By: Percy Herrera on 01-09-2024 WBC corrected for nucl RBC Auto (Bld) [#/Vol] 11.3 10*3/uL 4.1-10.5 [facility] Lymphocytes Auto (Bld) [#/Vo l]Ordered By: Percy Herrera on 01-09-2024 Lymphocytes (Bld) [#/Vol] 0.8 10*3/uL 1.00-4.8 [facility] Lymphocytes/100 WBC Auto (Bl d)Ordered By: Percy Herrera on 01-09-2024 Lymphocytes/100 WBC (Bld) 7.2 % . [facility] MCH Auto (RBC) [Entitic mass ]Ordered By: Percy Herrera on 01-09-2024 MCH (RBC) [Entitic mass] 37.3 pg 27.5-35.2 [facility] MCHC Auto (RBC) [Mass/Vol]Or dered By: Percy Herrera on 01-09-2024 MCHC (RBC) [Mass/Vol] 33.4 g/dL 32.5-35.6 [facility] MCV Auto (RBC) [Entitic vol] Ordered By: Percy Herrera on 01-09-2024 MCV (RBC) [Entitic vol] 111.7 fL 83.5-101 [facility] Magnesium [Mass/volume] in S timi or PlasmaOrdered By: Percy Herrera on 01-09-2024 Magnesium [Mass/Vol] 1.9 mg/dL 1.9-2.7 [facility] Monocytes Auto (Bld) [#/Vol] Ordered By: Percy Herrera on 01-09-2024 Monocytes (Bld) [#/Vol] 0.6 10*3/uL 0.0-0.8 [facility] Monocytes/100 WBC Auto (Bld) Ordered By: Percy Herrera on 01-09-2024 Monocytes/100 WBC (Bld) 5.4 % . [facility] Neutrophils Auto (Bld) [#/Vo l]Ordered By: Percy Herrera on 01-09-2024 Neutrophils (Bld) [#/Vol] 9.2 10*3/uL 1.8-7.7 [facility] Neutrophils/100 WBC Auto (Bl d)Ordered By: Percy Herrera on 01-09-2024 Neutrophils/100 WBC (Bld) 81.4 % . [facility] No Panel InformationOrdered By: Percy Herrera on 01-09-2024 Estimated GFR (CKD-EPI) 11.747 mL/Min [facility] Creatinine Clearance (Chem 17.89 [facility] Nucleated erythrocytes [Pres ence] in Blood by Automated countOrdered By: Percy Herrera on 01-09-2024 Nucleated RBC Auto Ql (Bld) 0.2 /100{WBC} 0-0.5 [facility] Platelet mean volume Auto (B ld) [Entitic vol]Ordered By: Percy Herrera on 01-09-2024 Platelet mean volume (Bld) [Entitic vol] 8.4 fL 6.6-10.1 [facility] Platelets Auto (Bld) [#/Vol] Ordered By: Percy Herrera on 01-09-2024 Platelets (Bld) [#/Vol] 326 10*3/uL 150-450 [facility] Potassium [Moles/volume] in Serum or PlasmaOrdered By: Percy Herrera on 01-09-2024 Potassium [Moles/Vol] 3.5 mmol/L 3.5-5.1 [facility] Comment on above: Delta: 7.1 on Protein [Mass/volume] in Ser um or PlasmaOrdered By: Percy Herrera on 01-09-2024 Protein [Mass/Vol] 6.8 g/dL 6.4-8.9 [facility] RBC Auto (Bld) [#/Vol]Ordere d By: Percy Herrera on 01-09-2024 RBC (Bld) [#/Vol] 2.34 10*6/uL 3.90-5.60 [facility] Serum or plasma albumin/glob ulin mass ratioOrdered By: Percy Herrera on 01-09-2024 Albumin/Globulin [Mass ratio] 1.6 {ratio} [facility] Serum or plasma anion gap de terminationOrdered By: Percy Herrera on 01-09-2024 Anion gap [Moles/Vol] 15.6 mmol/L 6.0-15.[address] [facility] Sodium [Moles/volume] in Ser um or PlasmaOrdered By: Percy Herrera on 01-09-2024 Sodium [Moles/Vol] 136 mmol/L 136-145 [facility] Urea nitrogen [Mass/volume] in Serum or PlasmaOrdered By: Percy Herrera on 01-09-2024 Urea nitrogen [Mass/Vol] 21 mg/dL 05-08 [facility] Comment on above: Delta: 67 on WBC Auto (Bld) [#/Vol]Ordere d By: Percy Herrera on 01-09-2024 WBC (Bld) [#/Vol] 11.3 10*3/uL 4.1-10.5 [facility] Anisocytosis LM Ql (Bld)Orde red By: Percy Herrera on 01-08-2024 Anisocytosis Ql (Bld) Moderate [facility] Macrocytes LM Ql (Bld)Ordere d By: Percy Herrera on 01-08-2024 Macrocytes Ql (Bld) Moderate [facility] Platelet adequacy [Presence] in Blood by Light microscopyOrdered By: Percy Herrera on 01-08-2024 Platelets LM Ql (Bld) Normal Normal [facility] Platelet morphology finding [Identifier] in BloodOrdered By: Percy Herrera on 01-08-2024 Platelet morphology finding Nom (Bld) Normal Normal [facility] Polychromasia [Presence] in Blood by Light microscopyOrdered By: Percy Herrera on 01-08-2024 Polychromasia LM Ql (Bld) Moderate [facility] RBC morphologyOrdered By: Armin Herrera on 01-08-2024 RBC morphology finding Nom (Bld) N/A [facility] Schistocytes [Presence] in B lood by Light microscopyOrdered By: Percy Herrera on 01-08-2024 Schistocytes LM Ql (Bld) Slight [facility] Potassium [Moles/volume] in Serum or PlasmaOrdered By: Toby Venegas on 11-10-2023 Potassium [Moles/Vol] 5.2 mmol/L 3.5-5.1 [facility] Potassium [Moles/volume] in Serum or PlasmaOrdered By: Junior Mayo on 11-03-2023 Potassium [Moles/Vol] 5.8 mmol/L 3.5-5.1 [facility] Potassium [Moles/volume] in Serum or PlasmaOrdered By: Junior Mayo on 10-11-2023 Potassium [Moles/Vol] 5.4 mmol/L 3.5-5.1 [facility] Basophils Auto (Bld) [#/Vol] Ordered By: Zo Serrano on 05-22-2023 Basophils (Bld) [#/Vol] 0.1 10*3/uL 0.0-0.2 [facility] Basophils/100 WBC Auto (Bld) Ordered By: Zo Serrano on 05-22-2023 Basophils/100 WBC (Bld) 0.4 % . [facility] Calcium [Mass/volume] in Ser um or PlasmaOrdered By: Zo Serrano on 05-22-2023 Calcium [Mass/Vol] 9.0 mg/dL 8.6-10.3 [facility] Carbon dioxide, total [Moles /volume] in Serum or PlasmaOrdered By: Zo Serrano on 05-22-2023 CO2 [Moles/Vol] 25.6 mmol/L 21.0-31.[address] [facility] Chloride [Moles/volume] in S timi or PlasmaOrdered By: Zo Serrano on 05-22-2023 Chloride [Moles/Vol] 95 mmol/L 98-107 [facility] Creatinine [Mass/volume] in Serum or PlasmaOrdered By: Zo Serrano on 05-22-2023 Creatinine [Mass/Vol] 13.60 mg/dL 0.70-1.[address] [facility] Eosinophils Auto (Bld) [#/Vo l]Ordered By: Zo Serrano on 05-22-2023 Eosinophils (Bld) [#/Vol] 0.4 10*3/uL 0.0-0.45 [facility] Eosinophils/100 WBC Auto (Bl d)Ordered By: Zo Serrano on 05-22-2023 Eosinophils/100 WBC (Bld) 2.1 % . [facility] Erythrocyte distribution wid th Auto (RBC) [Ratio]Ordered By: Zo Serrano on 05-22-2023 Erythrocyte distribution width (RBC) [Ratio] 15.4 % 12.0-14.8 [facility] Glucose Glucometer (BldC) [M ass/Vol]Ordered By: Irwin Theodore on 05-22-2023 Glucose [Mass/Vol] 74 mg/dL [facility] Comment on above: Random Glucose Refer ence Range is dependent on time and content of last meal. Glucose of more than 200 mg/dL in a nonstressed, ambulatory subject supports the diagnosis of Diabetes Mellitus. Glucose [Mass/volume] in Ser um or PlasmaOrdered By: Zo Serrano on 05-22-2023 Glucose [Mass/Vol] 89 mg/dL 70-100 [facility] Comment on above: ADA recommended refe rence rangeRandom Glucose Reference Range is dependent on time and content of last meal. Glucose of more than 200 mg/dL in a nonstressed, ambulatory subject supports the diagnosis of Diabetes Mellitus. Hematocrit Auto (Bld) [Volum e fraction]Ordered By: Zo Serrano on 05-22-2023 Hematocrit (Bld) [Volume fraction] 32.9 % 38.8-50.0 [facility] Hemoglobin [Mass/volume] in BloodOrdered By: Zo Serrano on 05-22-2023 Hemoglobin (Bld) [Mass/Vol] 10.9 g/dL 13.0-17.0 [facility] Leukocytes [#/volume] correc bernardo for nucleated erythrocytes in Blood by Automated counOrdered By: Zo Serrano on 05-22-2023 WBC corrected for nucl RBC Auto (Bld) [#/Vol] 17.7 10*3/uL 4.1-10.5 [facility] Lymphocytes Auto (Bld) [#/Vo l]Ordered By: Zo Serrano on 05-22-2023 Lymphocytes (Bld) [#/Vol] 0.9 10*3/uL 1.00-4.8 [facility] Lymphocytes/100 WBC Auto (Bl d)Ordered By: Zo Serrano on 05-22-2023 Lymphocytes/100 WBC (Bld) 5.1 % . [facility] MCH Auto (RBC) [Entitic mass ]Ordered By: Zo Serrano on 05-22-2023 MCH (RBC) [Entitic mass] 34.5 pg 27.5-35.2 [facility] MCHC Auto (RBC) [Mass/Vol]Or dered By: Zo Serrano on 05-22-2023 MCHC (RBC) [Mass/Vol] 33.1 g/dL 32.5-35.6 [facility] MCV Auto (RBC) [Entitic vol] Ordered By: Zo Serrano on 05-22-2023 MCV (RBC) [Entitic vol] 104.4 fL 83.5-101 [facility] Magnesium [Mass/volume] in S timi or PlasmaOrdered By: Zo Serrano on 05-22-2023 Magnesium [Mass/Vol] 2.2 mg/dL 1.9-2.7 [facility] Monocytes Auto (Bld) [#/Vol] Ordered By: Zo Serrano on 05-22-2023 Monocytes (Bld) [#/Vol] 0.9 10*3/uL 0.0-0.8 [facility] Monocytes/100 WBC Auto (Bld) Ordered By: Zo Serrano on 05-22-2023 Monocytes/100 WBC (Bld) 5.2 % . [facility] Neutrophils Auto (Bld) [#/Vo l]Ordered By: Zo Serrano on 05-22-2023 Neutrophils (Bld) [#/Vol] 15.5 10*3/uL 1.8-7.7 [facility] Neutrophils/100 WBC Auto (Bl d)Ordered By: Zo Serrano on 05-22-2023 Neutrophils/100 WBC (Bld) 87.2 % . [facility] No Panel InformationOrdered By: Zo Serrano on 05-22-2023 Estimated GFR (CKD-EPI) 3.902 mL/Min [facility] Creatinine Clearance (Chem 7.38 [facility] Nucleated erythrocytes [Pres ence] in Blood by Automated countOrdered By: Zo Serrano on 05-22-2023 Nucleated RBC Auto Ql (Bld) 0.1 /100{WBC} 0-0.5 [facility] Phosphate [Mass/volume] in S timi or PlasmaOrdered By: Zo Serrano on 05-22-2023 Phosphate [Mass/Vol] 5.0 mg/dL 3.7-7.2 [facility] Platelet mean volume Auto (B ld) [Entitic vol]Ordered By: Zo Serrano on 05-22-2023 Platelet mean volume (Bld) [Entitic vol] 6.9 fL 6.6-10.1 [facility] Platelets Auto (Bld) [#/Vol] Ordered By: Zo Serrano on 05-22-2023 Platelets (Bld) [#/Vol] 249 10*3/uL 150-450 [facility] Potassium [Moles/volume] in Serum or PlasmaOrdered By: Zo Serrano on 05-22-2023 Potassium [Moles/Vol] 5.5 mmol/L 3.5-5.1 [facility] RBC Auto (Bld) [#/Vol]Ordere d By: Zo Serrano on 05-22-2023 RBC (Bld) [#/Vol] 3.15 10*6/uL 3.90-5.60 [facility] Serum or plasma anion gap de terminationOrdered By: Zo Serrano on 05-22-2023 Anion gap [Moles/Vol] 19.9 mmol/L 6.0-15.[address] [facility] Sodium [Moles/volume] in Ser um or PlasmaOrdered By: Zo Serrano on 05-22-2023 Sodium [Moles/Vol] 135 mmol/L 136-145 [facility] Urea nitrogen [Mass/volume] in Serum or PlasmaOrdered By: Zo Serrano on 05-22-2023 Urea nitrogen [Mass/Vol] 63 mg/dL 7-25 [facility] WBC Auto (Bld) [#/Vol]Ordere d By: Zo Serrano on 05-22-2023 WBC (Bld) [#/Vol] 17.7 10*3/uL 4.1-10.5 [facility] Basophils Auto (Bld) [#/Vol] Ordered By: Sumit Madrid on 08-24-2022 Basophils (Bld) [#/Vol] 0.1 10*3/uL 0.0-0.2 [facility] Basophils/100 WBC Auto (Bld) Ordered By: Sumit Madrid on 08-24-2022 Basophils/100 WBC (Bld) 1.0 % . [facility] Creatinine and Glomerular fi ltration rate.predicted panel (S/P/Bld)Ordered By: Sumit Madrid on 08-24-2022 Creatinine [Mass/Vol] 9.20 mg/dL 0.64-1.27 [facility] Eosinophils Auto (Bld) [#/Vo l]Ordered By: Sumit Madrid on 08-24-2022 Eosinophils (Bld) [#/Vol] 0.4 10*3/uL 0.0-0.45 [facility] Eosinophils/100 WBC Auto (Bl d)Ordered By: Sumit Madrid on 08-24-2022 Eosinophils/100 WBC (Bld) 5.6 % . [facility] Erythrocyte distribution wid th Auto (RBC) [Ratio]Ordered By: Sumit Madrid on 08-24-2022 Erythrocyte distribution width (RBC) [Ratio] 12.9 % 12.0-14.8 [facility] Estimated glomerular filtrat ion rate (GFR) non- AmericanOrdered By: Sumit Madrid on 08-24-2022 GFR/1.73 sq M.predicted among non-blacks MDRD (S/P/Bld) [Vol rate/Area] 6 mL/Min [facility] Hematocrit Auto (Bld) [Volum e fraction]Ordered By: Sumit Madrid on 08-24-2022 Hematocrit (Bld) [Volume fraction] 40.3 % 38.8-50.0 [facility] Hemoglobin [Mass/volume] in BloodOrdered By: Sumit Madrid on 08-24-2022 Hemoglobin (Bld) [Mass/Vol] 13.5 g/dL 13.0-17.0 [facility] Laboratory - Hematology and Cell countsOrdered By: Sumit Madrid on 08-24-2022 Nucleated RBC/100 WBC (Bld) [Ratio] 0.0 % 0-0.5 [facility] Leukocytes [#/volume] in Blo od by Automated countOrdered By: Sumit Madrid on 08-24-2022 WBC (Bld) [#/Vol] 7.9 10*3/uL 4.5-11.0 [facility] Lymphocytes Auto (Bld) [#/Vo l]Ordered By: Sumit Madrid on 08-24-2022 Lymphocytes (Bld) [#/Vol] 1.1 10*3/uL 1.00-4.8 [facility] Lymphocytes/100 WBC Auto (Bl d)Ordered By: Sumit Madrid on 08-24-2022 Lymphocytes/100 WBC (Bld) 13.8 % . [facility] MCH Auto (RBC) [Entitic mass ]Ordered By: Sumit Madrid on 08-24-2022 MCH (RBC) [Entitic mass] 35.9 pg 27.5-35.2 [facility] MCHC Auto (RBC) [Mass/Vol]Or dered By: Sumit Madrid on 08-24-2022 MCHC (RBC) [Mass/Vol] 33.5 g/dL 32.5-35.6 [facility] MCV Auto (RBC) [Entitic vol] Ordered By: Sumit Madrid on 08-24-2022 MCV (RBC) [Entitic vol] 107.3 fL 83.5-101 [facility] Monocytes Auto (Bld) [#/Vol] Ordered By: Sumit Madrid on 08-24-2022 Monocytes (Bld) [#/Vol] 0.7 10*3/uL 0.0-0.8 [facility] Monocytes/100 WBC Auto (Bld) Ordered By: Sumit Madrid on 08-24-2022 Monocytes/100 WBC (Bld) 9.3 % . [facility] [facility] Neutrophils Auto (Bld) [#/Vo l]Ordered By: Sumit Madrid on 08-24-2022 Neutrophils (Bld) [#/Vol] 5.6 10*3/uL 1.8-7.7 [facility] Neutrophils/100 WBC Auto (Bl d)Ordered By: Sumit Madrid on 08-24-2022 Neutrophils/100 WBC (Bld) 70.3 % . [facility] No Panel InformationOrdered By: Sumit Madrid on 08-24-2022 Estimated GFR () 7 mL/Min [facility] Comment on above: GFR estimated refere nce range: According to KDOQI guidelines, <60 ml/min/1.73m2 is sufficient to diagnose a patient with chronic kidney disease. Pharmacy Creatinine Clearance (Chem 10.81 [facility] Platelet mean volume Auto (B ld) [Entitic vol]Ordered By: Sumit Madrid on 08-24-2022 Platelet mean volume (Bld) [Entitic vol] 7.7 fL 6.6-10.1 [facility] Platelets Auto (Bld) [#/Vol] Ordered By: Sumit Madrid on 08-24-2022 Platelets (Bld) [#/Vol] 289 10*3/uL 150-450 [facility] RBC Auto (Bld) [#/Vol]Ordere d By: Sumit Madrid on 08-24-2022 RBC (Bld) [#/Vol] 3.75 10*6/uL 3.90-5.60 [facility] Serum or plasma anion gap de terminationOrdered By: Sumit Madrid on 08-24-2022 Anion gap [Moles/Vol] 18.8 mmol/L 6.0-15.[address] [facility] Serum or plasma calcium cande urement (mass/volume)Ordered By: Sumit Madrid on 08-24-2022 Calcium [Mass/Vol] 9.5 mg/dL 8.2-10.2 [facility] Serum or plasma chloride rose marie surement (moles/volume)Ordered By: Sumit Madrid on 08-24-2022 Chloride [Moles/Vol] 94 mmol/L 95-114 [facility] Serum or plasma glucose cande urement (mass/volume)Ordered By: Sumit Madrid on 08-24-2022 Glucose [Mass/Vol] 94 mg/dL 70-100 [facility] Comment on above: ADA recommended refe rence rangeRandom Glucose Reference Range is dependent on time and content of last meal. Glucose of more than 200 mg/dL in a nonstressed, ambulatory subject supports the diagnosis of Diabetes Mellitus. Serum or plasma potassium me asurement (moles/volume)Ordered By: Sumit Madrid on 08-24-2022 Potassium [Moles/Vol] 5.2 mmol/L 3.5-5.1 [facility] Serum or plasma sodium measu rement (moles/volume)Ordered By: Sumit Madrid on 08-24-2022 Sodium [Moles/Vol] 133 mmol/L 136-146 [facility] Serum or plasma total carbon dioxide measurement (moles/volume)Ordered By: Sumit Madrid on 08-24-2022 CO2 [Moles/Vol] 25.4 mmol/L 22.0-30.[address] [facility] Serum or plasma urea nitroge n measurement (mass/volume)Ordered By: Sumit Madrid on 08-24-2022 Urea nitrogen [Mass/Vol] 31 mg/dL 07-07 [facility] COVID-19 SOFIAOrdered By: Aron Short on 08-23-2022 SARS-CoV+SARS-CoV-2 (COVID-19) Ag IA.rapid Ql (Resp) Negative Negative [facility] Comment on above: This is a duplicate Malu SARS Antigen (VANIA) result to be used for statistical tracking purpose only. No Panel InformationOrdered By: Gerber Short on 08-23-2022 SARS Antigen (LFIA) [facility] POTASSIUMon 08-18-2022 Potassium [Moles/Vol] 5.8 mmol/L Critically high 3.5-5.1 [facility] Comment on above: Performed By: #### C BC #### [facility] [address] [place] [address] Dr. Karen Santos LIPID PROFILEon 08-07-2022 CHOL-HDL RATIO NORM SEE BELOW Normal [facility] Comment on above: Result Comment: 3.3 - 4.4 LOW RISK 4.4 - 7.1 AVERAGE RISK 7.1 - 11.0 MODERATE RISK >11.0 HIGH RISK Performed By: #### C BC #### [facility] [address] [address] [address] Karen Santos Cholesterol [Mass/Vol] 116 mg/dL Normal <=200 [facility] Comment on above: Performed By: #### C BC #### [facility] [address] [address] [address] Karen Santos Cholesterol in HDL [Mass/Vol] 34 mg/dL Critically low 40-60 [facility] Comment on above: Performed By: #### C BC #### [facility] [address] [address] [address] Karen Santos Cholesterol in LDL [Mass/Vol] 47.4 mg/dL Normal [facility] Comment on above: Performed By: #### C BC #### [facility] [address] [address] [address] Karen Santos Cholesterol.total/Chol esterol in HDL [Mass ratio] 3.4 {ratio} Normal [facility] Comment on above: Performed By: #### C BC #### [facility] [address] [address] [address] Karen Santos HDL NORMAL > or = 60 mg/dl - LO W CARDIOVASCULAR RISK <40 mg/dl - HIGH CARDIOVASCULAR RISK Normal [facility] Comment on above: Performed By: #### C BC #### [facility] [address] [address] [address] Karen Santos LDL CALC NORMAL SEE BELOW Normal [facility] Comment on above: Result Comment: <100 mg/dl OPTIMAL 100 - 129 mg/dl NEAR OR ABOVE OPTIMAL 130 - 159 mg/dl BORDERLINE HIGH 160 - 189 mg/dl HIGH >190 mg/dl VERY HIGH Performed By: #### C BC #### [facility] [address] [address] [address] Karen Santos Triglyceride [Mass/Vol] 173 mg/dL Critically high <=150 [facility] Comment on above: Performed By: #### C BC #### [facility] [address] [address] [address] Karen Santos VLDL CALC 34.6 mg/dL Normal [facility] Comment on above: Performed By: #### C BC #### [facility] [address] [place] [address] Dr. Karen Santos POTASSIUMon 08-04-2022 Potassium [Moles/Vol] 5.0 mmol/L Normal 3.5-5.1 [facility] Comment on above: Performed By: #### C BC #### [facility] [address] [place] [address] Dr. Karen Santos Basophils Auto (Bld) [#/Vol] Ordered By: Luis Carlos Amaro on 07-11-2022 Basophils (Bld) [#/Vol] 0.1 10*3/uL 0.0-0.2 [facility] Basophils/100 WBC Auto (Bld) Ordered By: Luis Carlos Amaro on 07-11-2022 Basophils/100 WBC (Bld) 0.6 % . [facility] Blood hemoglobin measurement (mass/volume)Ordered By: Luis Carlos Amaro on 07-11-2022 Hemoglobin (Bld) [Mass/Vol] 10.6 g/dL 13.0-17.0 [facility] Blood leukocytes automated c ount (number/volume)Ordered By: Luis Carlos Amaro on 07-11-2022 WBC (Bld) [#/Vol] 8.9 10*3/uL 4.5-11.0 [facility] Blood polychromasia detectio n by light microscopyOrdered By: Luis Carlos Amaro on 07-11-2022 Polychromasia LM Ql (Bld) Slight [facility] Creatinine and Glomerular fi ltration rate.predicted panel (S/P/Bld)Ordered By: Luis Carlos Amaro on 07-11-2022 Creatinine [Mass/Vol] 7.92 mg/dL 0.64-1.27 [facility] Eosinophils Auto (Bld) [#/Vo l]Ordered By: Luis Carlos Amaro on 07-11-2022 Eosinophils (Bld) [#/Vol] 0.2 10*3/uL 0.0-0.45 [facility] Eosinophils/100 WBC Auto (Bl d)Ordered By: Luis Carlos Amaro on 07-11-2022 Eosinophils/100 WBC (Bld) 1.9 % . [facility] Erythrocyte distribution wid th Auto (RBC) [Ratio]Ordered By: Luis Carlos Amaro on 07-11-2022 Erythrocyte distribution width (RBC) [Ratio] 14.5 % 12.0-14.8 [facility] Estimated glomerular filtrat ion rate (GFR) non- AmericanOrdered By: Luis Carlos Amaro on 07-11-2022 GFR/1.73 sq M.predicted among non-blacks MDRD (S/P/Bld) [Vol rate/Area] 7 mL/Min [facility] Hematocrit Auto (Bld) [Volum e fraction]Ordered By: Luis Carlos Amaro on 07-11-2022 Hematocrit (Bld) [Volume fraction] 32.0 % 38.8-50.0 [facility] Laboratory - Hematology and Cell countsOrdered By: Luis Carlos Amaro on 07-11-2022 Nucleated RBC/100 WBC (Bld) [Ratio] 0.0 % 0-0.5 [facility] Lymphocytes Auto (Bld) [#/Vo l]Ordered By: Luis Carlos Amaro on 07-11-2022 Lymphocytes (Bld) [#/Vol] 0.9 10*3/uL 1.00-4.8 [facility] Lymphocytes/100 WBC Auto (Bl d)Ordered By: Luis Carlos Amaro on 07-11-2022 Lymphocytes/100 WBC (Bld) 10.1 % . [facility] MCH Auto (RBC) [Entitic mass ]Ordered By: Luis Carlos Amaro on 07-11-2022 MCH (RBC) [Entitic mass] 37.8 pg 27.5-35.2 [facility] MCHC Auto (RBC) [Mass/Vol]Or dered By: Luis Carlos Amaro on 07-11-2022 MCHC (RBC) [Mass/Vol] 33.3 g/dL 32.5-35.6 [facility] MCV Auto (RBC) [Entitic vol] Ordered By: Luis Carlos Amaro on 07-11-2022 MCV (RBC) [Entitic vol] 113.5 fL 83.5-101 [facility] Macrocytes detectionOrdered By: Luis Carlos Amaro on 07-11-2022 Macrocytes Ql (Bld) Moderate [facility] Monocytes Auto (Bld) [#/Vol] Ordered By: Luis Carlos Amaro on 07-11-2022 Monocytes (Bld) [#/Vol] 0.6 10*3/uL 0.0-0.8 [facility] Monocytes/100 WBC Auto (Bld) Ordered By: Luis Carlos Amaro on 07-11-2022 Monocytes/100 WBC (Bld) 7.0 % . [facility] Neutrophils Auto (Bld) [#/Vo l]Ordered By: Luis Carlos Amaro on 07-11-2022 Neutrophils (Bld) [#/Vol] 7.1 10*3/uL 1.8-7.7 [facility] Neutrophils/100 WBC Auto (Bl d)Ordered By: Luis Carlos Amaro on 07-11-2022 Neutrophils/100 WBC (Bld) 80.4 % . [facility] No Panel InformationOrdered By: Luis Carlos Amaro on 07-11-2022 Estimated GFR () 9 mL/Min [facility] Comment on above: GFR estimated refere nce range: According to KDOQI guidelines, <60 ml/min/1.73m2 is sufficient to diagnose a patient with chronic kidney disease. Pharmacy Creatinine Clearance (Chem 12.57 [facility] Platelet Estimate Normal Normal [facility] Platelet Morphology Comment Normal Normal [facility] Poikilocytosis Slight [facility] Ovalocyte detectionOrdered B y: Luis Carlos Amaro on 07-11-2022 Ovalocytes LM Ql (Bld) Slight [facility] Platelet mean volume Auto (B ld) [Entitic vol]Ordered By: Luis Carlos Amaro on 07-11-2022 Platelet mean volume (Bld) [Entitic vol] 7.3 fL 6.6-10.1 [facility] Platelets Auto (Bld) [#/Vol] Ordered By: Luis Carlso Amaro on 07-11-2022 Platelets (Bld) [#/Vol] 304 10*3/uL 150-450 [facility] RBC Auto (Bld) [#/Vol]Ordere d By: Luis Carlos Amaro on 07-11-2022 RBC (Bld) [#/Vol] 2.82 10*6/uL 3.90-5.60 [facility] RBC morphologyOrdered By: Claudette Amaro on 07-11-2022 RBC morphology finding Nom (Bld) N/A [facility] Serum or plasma anion gap de terminationOrdered By: Luis Carlos Amaro on 07-11-2022 Anion gap [Moles/Vol] 17.3 mmol/L 6.0-15.[address] [facility] Serum or plasma calcium cande urement (mass/volume)Ordered By: Luis Carlos Amaro on 07-11-2022 Calcium [Mass/Vol] 9.2 mg/dL 8.2-10.2 [facility] Serum or plasma chloride rose marie surement (moles/volume)Ordered By: Luis Carlos Amaro on 07-11-2022 Chloride [Moles/Vol] 92 mmol/L 95-114 [facility] Serum or plasma glucose cande urement (mass/volume)Ordered By: Luis Carlos Amaro on 07-11-2022 Glucose [Mass/Vol] 87 mg/dL 70-100 [facility] Comment on above: ADA recommended refe rence rangeRandom Glucose Reference Range is dependent on time and content of last meal. Glucose of more than 200 mg/dL in a nonstressed, ambulatory subject supports the diagnosis of Diabetes Mellitus. Serum or plasma potassium me asurement (moles/volume)Ordered By: Luis Carlos Amaro on 07-11-2022 Potassium [Moles/Vol] 4.0 mmol/L 3.5-5.1 [facility] Serum or plasma sodium measu rement (moles/volume)Ordered By: Luis Carlos Amaro on 07-11-2022 Sodium [Moles/Vol] 134 mmol/L 136-146 [facility] Serum or plasma total carbon dioxide measurement (moles/volume)Ordered By: Luis Carlos Amaro on 07-11-2022 CO2 [Moles/Vol] 28.7 mmol/L 22.0-30.[address] [facility] Serum or plasma urea nitroge n measurement (mass/volume)Ordered By: Luis Carlos Amaro on 07-11-2022 Urea nitrogen [Mass/Vol] 19 mg/dL 9-23 [facility] COVID-19 Positive/NegativeOr dered By: Patrice Levine on 07-10-2022 SARS-CoV-2 (COVID-19) N gene CHARLES+probe Ql (Resp) Negative Negative [facility] Comment on above: Testing for SARS-CoV -2 by RT-PCRThis test was developed and its performance characteristics determined by [employer] ([employer] and validated at the [facility]. This test has not been [...] SUBHASH VICENTE Date: 2022-06-09 22:18 Normal [facility] CBC AUTO DIFFon 06-09-2022 BASO # 0.0 103/ul Normal 0.0-0.1 [facility] Comment on above: Performed By: #### C BC #### [facility] [address] [place] [address] Dr. Karen Santos Basophils/100 WBC (Bld) 0.1 % Critically low 0.2-2.0 [facility] Comment on above: Performed By: #### C BC #### [facility] [address] [address] [address] Karen Santos EO # 0.1 103/ul Normal 0.0-0.7 [facility] Comment on above: Performed By: #### C BC #### [facility] [address] [address] [address] Karen Santos Eosinophils/100 WBC (Bld) 0.3 % Critically low 0.9-7.0 [facility] Comment on above: Performed By: #### C BC #### [facility] [address] [place] [address] Dr. Karen Santos Erythrocyte distribution width (RBC) [Ratio] 15.1 % Critically high 11.0-15.0 [facility] Comment on above: Performed By: #### C BC #### [facility] [address] [place] [address] Dr. Karen Santos Hematocrit (Bld) [Volume fraction] 26.4 % Critically low 42.0-54.0 [facility] Comment on above: Performed By: #### C BC #### [facility] [address] [place] [address] Dr. Karen Santos Hemoglobin (Bld) [Mass/Vol] 9.0 g/dL Critically low 14.0-18.0 [facility] Comment on above: Performed By: #### C BC #### [facility] [address] [place] [address] Dr. Karen Santos IG # 0.44 10e3/ul Critically high 0.00-0.03 [facility] Comment on above: Performed By: #### C BC #### [facility] [address] [place] [address] Dr. Karen Santos IG % 2.1 % Critically high 0.0-0.5 [facility] Comment on above: Performed By: #### C BC #### [facility] [address] [place] [address] Dr. Karen Santos LYMPH # 1.5 103/ul Normal 1.2-3.8 [facility] Comment on above: Performed By: #### C BC #### [facility] [address] [place] [address] Dr. Karen Santos Lymphocytes/100 WBC (Bld) 7.3 % Critically low 20.5-60.0 [facility] Comment on above: Performed By: #### C BC #### [facility] [address] [place] [address] Dr. Karen Santos MANUAL DIFF REQ NO Normal [facility] Comment on above: Performed By: #### C BC #### [facility] [address] [place] [address] Dr. Karen Santos MCH (RBC) [Entitic mass] 37.0 pg Critically high 25.9-34.0 [facility] Comment on above: Performed By: #### C BC #### [facility] [address] [address] [address] Karen Santos MCHC (RBC) [Mass/Vol] 34.1 g/dL Normal 29.9-35.2 [facility] Comment on above: Performed By: #### C BC #### [facility] [address] [place] [address] Dr. Karen Santos MCV (RBC) [Entitic vol] 108.6 fL Critically high 80.0-94.0 [facility] Comment on above: Performed By: #### C BC #### [facility] [address] [place] [address] Dr. Karen Santos MONO # 1.0 103/ul Critically high 0.3-0.8 [facility] Comment on above: Performed By: #### C BC #### [facility] [address] [place] [address] Dr. Karen Santos Monocytes/100 WBC (Bld) 5.0 % Normal 1.7-12.0 [facility] Comment on above: Performed By: #### C BC #### [facility] [address] [place] [address] Dr. Karen Santos NEUT # 17.7 103/ul Critically high 1.4-6.5 [facility] Comment on above: Performed By: #### C BC #### [facility] [address] [place] [address] Dr. Karen Santos Neutrophils/100 WBC (Bld) 85.2 % Critically high 43.0-75.0 [facility] Comment on above: Performed By: #### C BC #### [facility] [address] [place] [address] Dr. Karen Santos Platelet mean volume (Bld) [Entitic vol] 9.5 fL Normal 9.5-13.5 [facility] Comment on above: Performed By: #### C BC #### [facility] [address] [address] [address] Karen Santos PLT 280 103/ul Normal 150-450 [facility] Comment on above: Performed By: #### C BC #### [facility] [address] [address] [address] Karen Santos RBC 2.43 106/ul Critically low 4.70-6.10 [facility] Comment on above: Performed By: #### C BC #### [facility] [address] [address] [address] Karen Santos WBC 20.7 103/ul Critically high 4.0-11.0 [facility] Comment on above: Performed By: #### C BC #### [facility] [address] [address] [address] Karen Santos PROF 14(COMP METB)on 022 Albumin [Mass/Vol] 3.5 g/dL Normal 3.4-5.0 [facility] Comment on above: Performed By: #### C MP ####[facility] [address] [address]Dr. Karen Santos Albumin/Globulin [Mass ratio] 0.9 {ratio} Normal [facility] Comment on above: Performed By: #### C MP ####[facility] [address] [address]Dr. Karen Santos ALP [Catalytic activity/Vol] 93 U/L Normal 46-116 [facility] Comment on above: Performed By: #### C MP ####[facility] [address] [address]Dr. Karen Santos ALT [Catalytic activity/Vol] 11 U/L Critically low 16-63 [facility] Comment on above: Performed By: #### C MP ####[facility] [address] [address]Dr. Karen Santos Anion gap [Moles/Vol] 22.3 mmol/L Normal [facility] Comment on above: Performed By: #### C MP ####[facility] [address] [address]Dr. Karen Santos AST [Catalytic activity/Vol] 15 U/L Normal 15-37 [facility] Comment on above: Performed By: #### C MP ####[facility] [address] [address]Dr. Karen Santos Bilirubin [Mass/Vol] 0.4 mg/dL Normal 0.2-1.0 [facility] Comment on above: Performed By: #### C MP ####[facility] [address] [place], [place] [address]Dr. Karen Santos Calcium [Mass/Vol] 8.8 mg/dL Normal 8.5-10.1 [facility] Comment on above: Performed By: #### C MP ####[facility] [address] [place], [place] [address]Dr. Karen Santos Chloride [Moles/Vol] 90 mmol/L Critically low 98-107 [facility] Comment on above: Performed By: #### C MP ####[facility] [address] [place], [place] [address]Dr. Karen Santos CO2 [Moles/Vol] 22.0 mmol/L Normal 21.0-32.0 [facility] Comment on above: Performed By: #### C MP ####[facility] [address] [place], [place] [address]Dr. Karen Santos Creatinine [Mass/Vol] 13.37 mg/dL Critically high 0.70-1.3 0 [facility] Comment on above: Result Comment: unkn own if done Performed By: #### C MP ####[facility] [address] [place], [place] [address]Dr. Karen Tom EGFR-AF GUAMANIAN 5 mL/min/1.73m2 Critically low >=60 [facility] Comment on above: Performed By: #### C MP ####[facility] [address] [place], [place] [address]Dr. Virajacinda Tom EGFR-NON AF GUAMANIAN 4 mL/min/1.73m2 Critically low >=60 [facility] Comment on above: Performed By: #### C MP ####[facility] [address] [id number][address] Karen Santos Globulin (S) [Mass/Vol] 3.7 g/dL Normal [facility] Comment on above: Performed By: #### C MP ####[facility] [address] [address]Dr. Karen Santos Glucose [Mass/Vol] 90 mg/dL Normal 74-106 [facility] Comment on above: Performed By: #### C MP ####[facility] [address] [address]Dr[address] Karen Santos Potassium [Moles/Vol] 5.3 mmol/L Critically high 3.5-5.1 [facility] Comment on above: Performed By: #### C MP ####[facility] [address] [place], [place] [address]Dr. Karen Santos Protein [Mass/Vol] 7.2 g/dL Normal 6.4-8.2 [facility] Comment on above: Performed By: #### C MP ####[facility] [address] [place], [place] [address]Dr. Karen Santos Sodium [Moles/Vol] 129 mmol/L Critically low 136-145 [facility] Comment on above: Performed By: #### C MP ####[facility] [address] [place], [place] [address]Dr. Karen Santos Urea nitrogen [Mass/Vol] 53.0 mg/dL Critically high 7.0-18.0 [facility] Comment on above: Performed By: #### C MP ####[facility] [address] [place], [place] [address]Dr. Karen Santos Urea nitrogen/Creatinine [Mass ratio] 3.9 mg/mg Normal [facility] Comment on above: Performed By: #### C MP ####[facility] [address] [place], [place] [address]Dr. Karen Santos CBC AUTO DIFFon 02-28-2022 BASO # 0.0 103/ul Normal 0.0-0.1 [facility] Comment on above: Performed By: #### C BC #### [facility] [address] [address] [address] Karen Santos Basophils/100 WBC (Bld) 0.4 % Normal 0.2-2.0 [facility] Comment on above: Performed By: #### C BC #### [facility] [address] [address] [address] Karen Santos EO # 0.2 103/ul Normal 0.0-0.7 [facility] Comment on above: Performed By: #### C BC #### [facility] [address] [address] [address] Karen Santos Eosinophils/100 WBC (Bld) 1.4 % Normal 0.9-7.0 [facility] Comment on above: Performed By: #### C BC #### [facility] [address] [place] [address] Dr. Karen Santos Erythrocyte distribution width (RBC) [Ratio] 12.4 % Normal 11.0-15.0 [facility] Comment on above: Performed By: #### C BC #### [facility] [address] [place] [address] Dr. Karen Santos Hematocrit (Bld) [Volume fraction] 40.7 % Critically low 42.0-54.0 [facility] Comment on above: Performed By: #### C BC #### [facility] [address] [place] [address] Dr. Karen Santos Hemoglobin (Bld) [Mass/Vol] 14.0 g/dL Normal 14.0-18.0 [facility] Comment on above: Performed By: #### C BC #### [facility] [address] [place] [address] Dr. Karen Santos IG # 0.06 10e3/ul Critically high 0.00-0.03 [facility] Comment on above: Performed By: #### C BC #### [facility] [address] [place] [address] Dr. Karen Santos IG % 0.6 % Critically high 0.0-0.5 [facility] Comment on above: Performed By: #### C BC #### [facility] [address] [address] [address] Karen Santos LYMPH # 0.9 103/ul Critically low 1.2-3.8 [facility] Comment on above: Performed By: #### C BC #### [facility] [address] [address] [address] Karen Santos Lymphocytes/100 WBC (Bld) 8.0 % Critically low 20.5-60.0 [facility] Comment on above: Performed By: #### C BC #### [facility] [address] [address] [address] Karen Santos MANUAL DIFF REQ NO Normal [facility] Comment on above: Performed By: #### C BC #### [facility] [address] [place] [address] Dr. Karen Santos MCH (RBC) [Entitic mass] 35.5 pg Critically high 25.9-34.0 [facility] Comment on above: Performed By: #### C BC #### [facility] [address] [place] [address] Dr. Karen Santos MCHC (RBC) [Mass/Vol] 34.4 g/dL Normal 29.9-35.2 [facility] Comment on above: Performed By: #### C BC #### [facility] [address] [address] [address] Karen Santos MCV (RBC) [Entitic vol] 103.3 fL Critically high 80.0-94.0 [facility] Comment on above: Performed By: #### C BC #### [facility] [address] [address] [address] Karen Santos MONO # 0.5 103/ul Normal 0.3-0.8 [facility] Comment on above: Performed By: #### C BC #### [facility] [address] [address] [address] Karen Santos Monocytes/100 WBC (Bld) 5.0 % Normal 1.7-12.0 [facility] Comment on above: Performed By: #### C BC #### [facility] [address] [address] [address] Karen Santos NEUT # 9.1 103/ul Critically high 1.4-6.5 [facility] Comment on above: Performed By: #### C BC #### [facility] [id number] Karen Santos Neutrophils/100 WBC (Bld) 84.6 % Critically high 43.0-75.0 [facility] Comment on above: Performed By: #### C BC #### [facility] [address] [address] [address] Karen Santos Platelet mean volume (Bld) [Entitic vol] 9.1 fL Critically low 9.5-13.5 [facility] Comment on above: Performed By: #### C BC #### [facility] [address] [address] [address] Karen Santos PLT 350 103/ul Normal 150-450 [facility] Comment on above: Performed By: #### C BC #### [facility] [address] [place] [address] Dr. Karen Santos RBC 3.94 106/ul Critically low 4.70-6.10 [facility] Comment on above: Performed By: #### C BC #### [facility] [address] [address] [address] Karen Santos WBC 10.7 103/ul Normal 4.0-11.0 [facility] Comment on above: Performed By: #### C BC #### [facility] [address] [place] [address] Dr. Karen Santos PROF CHEM 8 (BAS METB)on Anion gap [Moles/Vol] 12.4 mmol/L Normal [facility] Comment on above: Performed By: #### C BC #### [facility] [address] [place] [address] Dr. Karen Santos Calcium [Mass/Vol] 9.5 mg/dL Normal 8.5-10.1 [facility] Comment on above: Performed By: #### C BC #### [facility] [address] [address] [address] Kaern Santos Chloride [Moles/Vol] 95 mmol/L Critically low 98-107 [facility] Comment on above: Performed By: #### C BC #### [facility] [address] [address] [address] Karen Santos CO2 [Moles/Vol] 31.7 mmol/L Normal 21.0-32.0 [facility] Comment on above: Performed By: #### C BC #### [facility] [address] [address] [address] Karen Santos Creatinine [Mass/Vol] 2.39 mg/dL Critically high 0.70-1.30 [facility] Comment on above: Performed By: #### C BC #### [facility] [address] [address] [address] Karen Santos EGFR-AF GUAMANIAN 35 mL/min/1.73m2 Critically low >=60 [facility] Comment on above: Performed By: #### C BC #### [facility] [address] [address] [address] Karen Santos EGFR-NON AF GUAMANIAN 29 mL/min/1.73m2 Critically low >=60 [facility] Comment on above: Performed By: #### C BC #### [facility] [address] [address] [address] Karen Santos Glucose [Mass/Vol] 105 mg/dL Normal 74-106 [facility] Comment on above: Performed By: #### C BC #### [facility] [address] [address] [address] Karen Santos Potassium [Moles/Vol] 4.1 mmol/L Normal 3.5-5.1 [facility] Comment on above: Performed By: #### C BC #### [facility] [address] [address] [address] Karen Santos Sodium [Moles/Vol] 135 mmol/L Critically low 136-145 [facility] Comment on above: Performed By: #### C BC #### [facility] [address] [address] [address] Karen Santos Urea nitrogen [Mass/Vol] 15.0 mg/dL Normal 7.0-18.0 [facility] Comment on above: Performed By: #### C BC #### [facility] [address] [address] [address] Karen Santos Urea nitrogen/Creatinine [Mass ratio] 6.3 mg/mg Normal [facility] Comment on above: Performed By: #### C BC #### [facility] [address] [address] [address] Karen Santos CBC AUTO DIFFon 02-24-2022 BASO # 0.1 103/ul Normal 0.0-0.1 [facility] Comment on above: Performed By: #### C BC ####[facility] [address] [address]Dr. Karen Santos Basophils/100 WBC (Bld) 0.6 % Normal 0.2-2.0 [facility] Comment on above: Performed By: #### C BC ####[facility] [address] [address]DrEva Santos EO # 0.3 103/ul Normal 0.0-0.7 [facility] Comment on above: Performed By: #### C BC ####[facility] [address] [address]Dr. Karen Santos Eosinophils/100 WBC (Bld) 2.6 % Normal 0.9-7.0 [facility] Comment on above: Performed By: #### C BC ####[facility] [address] [address]DrEva Santos Erythrocyte distribution width (RBC) [Ratio] 12.5 % Normal 11.0-15.0 [facility] Comment on above: Performed By: #### C BC ####[facility] [address] [address]DrEva Santos Hematocrit (Bld) [Volume fraction] 37.1 % Critically low 42.0-54.0 [facility] Comment on above: Performed By: #### C BC ####[facility] [address] [id number]. Karen Santos Hemoglobin (Bld) [Mass/Vol] 12.8 g/dL Critically low 14.0-18.0 [facility] Comment on above: Performed By: #### C BC ####[facility] [address] [id number]. Karen Santos IG # 0.28 10e3/ul Critically high 0.00-0.03 [facility] Comment on above: Performed By: #### C BC ####[facility] [address] [id number]. Karen Santos IG % 2.2 % Critically high 0.0-0.5 [facility] Comment on above: Performed By: #### C BC ####[facility] [address] [address]Dr. Karen Santos LYMPH # 1.0 103/ul Critically low 1.2-3.8 The [facility] Comment on above: Performed By: #### C BC ####[facility] [address] [address]Dr. Karen Santos Lymphocytes/100 WBC (Bld) 7.6 % Critically low 20.5-60.0 [facility] Comment on above: Performed By: #### C BC ####[facility] [address] [address]Dr. Karen Santos MANUAL DIFF REQ NO Normal [facility] Comment on above: Performed By: #### C BC ####[facility] [address] [place], [place] [address]Dr. Karen Santos MCH (RBC) [Entitic mass] 35.9 pg Critically high 25.9-34.0 [facility] Comment on above: Performed By: #### C BC ####[facility] [address] [address]Dr. Karen Tom MCHC (RBC) [Mass/Vol] 34.5 g/dL Normal 29.9-35.2 [facility] Comment on above: Performed By: #### C BC ####[facility] [address] [id number]. Karen Santos MCV (RBC) [Entitic vol] 103.9 fL Critically high 80.0-94.0 [facility] Comment on above: Performed By: #### C BC ####[facility] [address] [id number]. Karen Santos MONO # 0.8 103/ul Normal 0.3-0.8 [facility] Comment on above: Performed By: #### C BC ####[facility] [address] [id number]. Karen Santos Monocytes/100 WBC (Bld) 6.6 % Normal 1.7-12.0 [facility] Comment on above: Performed By: #### C BC ####[facility] [address] [place], [place] [address]Dr. Karen Santos NEUT # 10.1 103/ul Critically high 1.4-6.5 The [facility] Comment on above: Performed By: #### C BC ####[facility] [address] [id number]. Karen Santos Neutrophils/100 WBC (Bld) 80.4 % Critically high 43.0-75.0 [facility] Comment on above: Performed By: #### C BC ####[facility] [address] [place], [place] [id number]. Karen Santos Platelet mean volume (Bld) [Entitic vol] 9.5 fL Normal 9.5-13.5 [facility] Comment on above: Performed By: #### C BC ####[facility] [address] [place], [place] [id number]. Karen Santos PLT 331 103/ul Normal 150-450 [facility] Comment on above: Performed By: #### C BC ####[facility] [address] [place], [place] [address]Dr. Karen Tom RBC 3.57 106/ul Critically low 4.70-6.10 [facility] Comment on above: Performed By: #### C BC ####[facility] [address] [place], [place] [address]UdDr. Karen Santos WBC 12.5 103/ul Critically high 4.0-11.0 [facility] Comment on above: Performed By: #### C BC ####[facility] [address] [place], [place] [address]ZgDr. Karen Santos PROF CHEM 8 (BAS METB)on Anion gap [Moles/Vol] 12.6 mmol/L Normal [facility] Comment on above: Performed By: #### M G, RENAL #### [facility] [address] [address] [address] Karen Santos Calcium [Mass/Vol] 9.5 mg/dL Normal 8.5-10.1 [facility] Comment on above: Performed By: #### M G, RENAL #### [facility] [address] [address] [address] Karen Santos Chloride [Moles/Vol] 95 mmol/L Critically low 98-107 [facility] Comment on above: Performed By: #### M G, RENAL #### [facility] [address] [address] [address] Karen Santos CO2 [Moles/Vol] 28.5 mmol/L Normal 21.0-32.0 [facility] Comment on above: Performed By: #### M G, RENAL #### [facility] [address] [address] [address] Karen Santos Creatinine [Mass/Vol] 1.70 mg/dL Critically high 0.70-1.30 [facility] Comment on above: Performed By: #### M G, RENAL #### [facility] [address] [address] [address] Karen Santos EGFR-AF GUAMANIAN 51 mL/min/1.73m2 Critically low >=60 [facility] Comment on above: Performed By: #### M G, RENAL #### [facility] [address] [address] [address] Karen Santos EGFR-NON AF GUAMANIAN 42 mL/min/1.73m2 Critically low >=60 [facility] Comment on above: Performed By: #### M G, RENAL #### [facility] [address] [address] [address] Karen Santos Glucose [Mass/Vol] 111 mg/dL Critically high 74-106 T [facility] Comment on above: Performed By: #### M G, RENAL #### [facility] [address] [address] [address] Karen Santos Potassium [Moles/Vol] 3.1 mmol/L Critically low 3.5-5.1 [facility] Comment on above: Performed By: #### M G, RENAL #### [facility] [address] [address] [address] Karen Santos Sodium [Moles/Vol] 133 mmol/L Critically low 136-145 Th [facility] Comment on above: Performed By: #### M G, RENAL #### [facility] [address] [place] [address] Dr. Karen Santos Urea nitrogen [Mass/Vol] 8.0 mg/dL Normal 7.0-18.0 [facility] Comment on above: Performed By: #### M G, RENAL #### [facility] [address] [place] [address] Dr. Karen Santos Urea nitrogen/Creatinine [Mass ratio] 4.7 mg/mg Normal [facility] Comment on above: Performed By: #### M G, RENAL #### [facility] [address] [place] [address] Dr. Karen Santos TROPONIN, HIGH SENSITIVITYon 02-24-2022 HSTROP 10.3 pg/mL Normal 4.0-76.1 [facility] Comment on above: Result Comment: CUT- OFF POINTS HAVE BEEN ESTABLISHED BASED ON THE FOURTH UNIVERSAL DEFINITIONS OF MYOCARDIAL INFARCTION. THE UPPER REFERENCE LIMIT (URL) OF TROPONIN, DEFINED THE 99TH PERCENTILE OF cTnI DISTRIBUTION IN A REFERENCE POPULATION, HAS BEEN CONFIRMED THE DECISION THRESHOLD FOR [place] DIAGNOSIS. Performed By: #### M G, RENAL #### [facility] [address] [place] [address] Dr. Karen Santos CBC AUTO DIFFon 02-18-2022 BASO # 0.0 103/ul Normal 0.0-0.1 [facility] Comment on above: Performed By: #### M G, RENAL #### [facility] [address] [place] [address] Dr. Karen Santos Basophils/100 WBC (Bld) 0.3 % Normal 0.2-2.0 [facility] Comment on above: Performed By: #### M G, RENAL #### [facility] [address] [place] [address] Dr. Karen Santos EO # 0.2 103/ul Normal 0.0-0.7 [facility] Comment on above: Performed By: #### M G, RENAL #### [facility] [address] [place] [address] Dr. Karen Santos Eosinophils/100 WBC (Bld) 1.5 % Normal 0.9-7.0 [facility] Comment on above: Performed By: #### M G, RENAL #### [facility] [address] [place] [address] Dr. Karen Santos Erythrocyte distribution width (RBC) [Ratio] 13.1 % Normal 11.0-15.0 [facility] Comment on above: Performed By: #### M G, RENAL #### [facility] [address] [place] [address] Dr. Karen Santos Hematocrit (Bld) [Volume fraction] 35.7 % Critically low 42.0-54.0 [facility] Comment on above: Performed By: #### M G, RENAL #### [facility] [address] [place] [address] Dr. Karen Santos Hemoglobin (Bld) [Mass/Vol] 12.1 g/dL Critically low 14.0-18.0 [facility] Comment on above: Performed By: #### M G, RENAL #### [facility] [address] [place] [address] Dr. Karen Santos IG # 0.07 10e3/ul Critically high 0.00-0.03 [facility] Comment on above: Performed By: #### M G, RENAL #### [facility] [address] [address] [address] Karen Santos IG % 0.6 % Critically high 0.0-0.5 [facility] Comment on above: Performed By: #### M G, RENAL #### [facility] [address] [address] [address] Karen Santos LYMPH # 1.2 103/ul Normal 1.2-3.8 [facility] Comment on above: Performed By: #### M G, RENAL #### [facility] [address] [address] [address] Karen Santos Lymphocytes/100 WBC (Bld) 11.1 % Critically low 20.5-60.0 [facility] Comment on above: Performed By: #### M G, RENAL #### [facility] [address] [place] [address] Dr. Karen Santos MANUAL DIFF REQ NO Normal [facility] Comment on above: Performed By: #### M G, RENAL #### [facility] [address] [place] [address] Dr. Karen Santos MCH (RBC) [Entitic mass] 35.9 pg Critically high 25.9-34.0 [facility] Comment on above: Performed By: #### M G, RENAL #### [facility] [address] [place] [address] Dr. Karen Santos MCHC (RBC) [Mass/Vol] 33.9 g/dL Normal 29.9-35.2 [facility] Comment on above: Performed By: #### M G, RENAL #### [facility] [address] [address] [address] Karen Santos MCV (RBC) [Entitic vol] 105.9 fL Critically high 80.0-94.0 [facility] Comment on above: Result Comment: 2+ m acrocytosis Performed By: #### M G, RENAL #### [facility] [address] [place] [address] Dr. Karen Santos MONO # 0.8 103/ul Normal 0.3-0.8 [facility] Comment on above: Performed By: #### M G, RENAL #### [facility] [address] [address] [address] Karen Santos Monocytes/100 WBC (Bld) 6.9 % Normal 1.7-12.0 [facility] Comment on above: Performed By: #### M G, RENAL #### [facility] [address] [address] [address] Karen Santos NEUT # 8.8 103/ul Critically high 1.4-6.5 [facility] Comment on above: Performed By: #### M G, RENAL #### [facility] [address] [address] [address] Karen Santos Neutrophils/100 WBC (Bld) 79.6 % Critically high 43.0-75.0 [facility] Comment on above: Performed By: #### M G, RENAL #### [facility] [address] [place] [address] Dr. Karen Santos Platelet mean volume (Bld) [Entitic vol] 9.3 fL Critically low 9.5-13.5 [facility] Comment on above: Performed By: #### M G, RENAL #### [facility] [address] [place] [address] Dr. Karen Santos PLT 272 103/ul Normal 150-450 [facility] Comment on above: Performed By: #### M G, RENAL #### [facility] [address] [address] [address] Karen Santos RBC 3.37 106/ul Critically low 4.70-6.10 [facility] Comment on above: Performed By: #### M G, RENAL #### [facility] [address] [address] [address] Karen Santos WBC 11.1 103/ul Critically high 4.0-11.0 [facility] Comment on above: Performed By: #### M G, RENAL #### [facility] [address] [place] [address] Dr. Karen Santos PROF 14(COMP METB)on 022 Albumin [Mass/Vol] 3.7 g/dL Normal 3.4-5.0 [facility] Comment on above: Performed By: #### C BC #### [facility] [address] [address] [address] Karen Santos Albumin/Globulin [Mass ratio] 1.1 {ratio} Normal [facility] Comment on above: Performed By: #### C BC #### [facility] [address] [address] [address] Karen Santos ALP [Catalytic activity/Vol] 110 U/L Normal 46-116 [facility] Comment on above: Performed By: #### C BC #### [facility] [address] [address] [address] Karen Santos ALT [Catalytic activity/Vol] 15 U/L Critically low 16-63 [facility] Comment on above: Performed By: #### C BC #### [facility] [address] [place] [address] Dr. Karen Santos Anion gap [Moles/Vol] 18.2 mmol/L Normal [facility] Comment on above: Performed By: #### C BC #### [facility] [address] [address] [address] Karen Santos AST [Catalytic activity/Vol] 9 U/L Critically low 15-37 [facility] Comment on above: Performed By: #### C BC #### [facility] [address] [place] [address] Dr. Karen Santos Bilirubin [Mass/Vol] 0.4 mg/dL Normal 0.2-1.0 [facility] Comment on above: Performed By: #### C BC #### [facility] [address] [place] [address] Dr. Karen Santos Calcium [Mass/Vol] 8.3 mg/dL Critically low 8.5-10.1 [facility] Comment on above: Performed By: #### C BC #### [facility] [address] [address] Dr. Karen Santos Chloride [Moles/Vol] 88 mmol/L Critically low 98-107 [facility] Comment on above: Performed By: #### C BC #### [facility] [address] [address] [address] Karen Santos CO2 [Moles/Vol] 23.9 mmol/L Normal 21.0-32.0 [facility] Comment on above: Performed By: #### C BC #### [facility] [address] [address] [address] Karen Santos Creatinine [Mass/Vol] 8.30 mg/dL Critically high 0.70-1.30 [facility] Comment on above: Result Comment: repe ated Performed By: #### C BC #### [facility] [address] [address] [address] Karen Santos EGFR-AF GUAMANIAN 8 mL/min/1.73m2 Critically low >=60 [facility] Comment on above: Performed By: #### C BC #### [facility] [address] [address] [address] Karen Santos EGFR-NON AF GUAMANIAN 7 mL/min/1.73m2 Critically low >=60 [facility] Comment on above: Performed By: #### C BC #### [facility] [address] [address] [address] Karen Santos Globulin (S) [Mass/Vol] 3.4 g/dL Normal [facility] Comment on above: Performed By: #### C BC #### [facility] [address] [address] [address] Karen Santos Glucose [Mass/Vol] 109 mg/dL Critically high 74-106 [facility] Comment on above: Performed By: #### C BC #### [facility] [address] [address] [address] Karen Santos Potassium [Moles/Vol] 3.1 mmol/L Critically low 3.5-5.1 [facility] Comment on above: Performed By: #### C BC #### [facility] [address] [address] [address] Karen Santos Protein [Mass/Vol] 7.1 g/dL Normal 6.4-8.2 [facility] Comment on above: Performed By: #### C BC #### [facility] [address] [address] [address] Karen Santos Sodium [Moles/Vol] 127 mmol/L Critically low 136-145 [facility] Comment on above: Performed By: #### C BC #### [facility] [address] [address] [address] Karen Santos Urea nitrogen [Mass/Vol] 48.0 mg/dL Critically high 7.0-18.0 [facility] Comment on above: Performed By: #### C BC #### [facility] [address] [address] [address] Karen Santos Urea nitrogen/Creatinine [Mass ratio] 5.8 mg/mg Normal [facility] Comment on above: Performed By: #### C BC #### [facility] [address] [address] [address] Karen Santos CARDIAC SRINIVASAN ADMITon 022 CK [Catalytic activity/Vol] 81 U/L Normal 39-308 [facility] Comment on above: Performed By: #### C BC #### [facility] [address] [address] [address] Karen Santos CK.MB [Mass/Vol] 1.75 ng/mL Normal <=3.60 [facility] Comment on above: Performed By: #### C BC #### [facility] [address] [address] [address] Karen Santos HSTROP 20.8 pg/mL Normal 4.0-76.1 [facility] Comment on above: Result Comment: CUT- OFF POINTS HAVE BEEN ESTABLISHED BASED ON THE FOURTH UNIVERSAL DEFINITIONS OF MYOCARDIAL INFARCTION. THE UPPER REFERENCE LIMIT (URL) OF TROPONIN, DEFINED THE 99TH PERCENTILE OF cTnI DISTRIBUTION IN A REFERENCE POPULATION, HAS BEEN CONFIRMED THE DECISION THRESHOLD FOR [place] DIAGNOSIS. Performed By: #### C BC #### [facility] [address] [address] [address] Karen Santos RUI 129 ng/mL Critically high 16-96 [facility] Comment on above: Performed By: #### C BC #### [facility] [address] [address] [address] Karen Santos CBC AUTO DIFFon 02-14-2022 BASO # 0.1 103/ul Normal 0.0-0.1 [facility] Comment on above: Performed By: #### C BC #### [facility] [address] [address] [address] Karen Santos Basophils/100 WBC (Bld) 0.4 % Normal 0.2-2.0 [facility] Comment on above: Performed By: #### C BC #### [facility] [address] [address] [address] Karen Santos EO # 0.1 103/ul Normal 0.0-0.7 [facility] Comment on above: Performed By: #### C BC #### [facility] [address] [place] [address] Dr. Karen Santos Eosinophils/100 WBC (Bld) 0.9 % Normal 0.9-7.0 [facility] Comment on above: Performed By: #### C BC #### [facility] [address] [place] [address] Dr. Karen Santos Erythrocyte distribution width (RBC) [Ratio] 12.6 % Normal 11.0-15.0 [facility] Comment on above: Performed By: #### C BC #### [facility] [address] [place] [address] Dr. Karen aSntos Hematocrit (Bld) [Volume fraction] 39.2 % Critically low 42.0-54.0 [facility] Comment on above: Performed By: #### C BC #### [facility] [address] [place] [address] Dr. Karen Santos Hemoglobin (Bld) [Mass/Vol] 13.9 g/dL Critically low 14.0-18.0 [facility] Comment on above: Performed By: #### C BC #### [facility] [address] [place] [address] Dr. Karen Santos IG # 0.08 10e3/ul Critically high 0.00-0.03 [facility] Comment on above: Performed By: #### C BC #### [facility] [address] [address] [address] Karen Santos IG % 0.7 % Critically high 0.0-0.5 [facility] Comment on above: Performed By: #### C BC #### [facility] [address] [address] [address] Karen Santos LYMPH # 1.0 103/ul Critically low 1.2-3.8 [facility] Comment on above: Performed By: #### C BC #### [facility] [address] [address] [address] Karen Santos Lymphocytes/100 WBC (Bld) 8.5 % Critically low 20.5-60.0 [facility] Comment on above: Performed By: #### C BC #### [facility] [address] [place] [address] Dr. Karen Santos MANUAL DIFF REQ NO Normal [facility] Comment on above: Performed By: #### C BC #### [facility] [address] [place] [address] Dr. Karen Santos MCH (RBC) [Entitic mass] 36.1 pg Critically high 25.9-34.0 [facility] Comment on above: Performed By: #### C BC #### [facility] [address] [place] [address] Dr. Karen Santos MCHC (RBC) [Mass/Vol] 35.5 g/dL Critically high 29.9-35.2 [facility] Comment on above: Performed By: #### C BC #### [facility] [address] [place] [address] Dr. Karen Santos MCV (RBC) [Entitic vol] 101.8 fL Critically high 80.0-94.0 [facility] Comment on above: Performed By: #### C BC #### [facility] [address] [place] [address] Dr. Karen Santos MONO # 0.6 103/ul Normal 0.3-0.8 [facility] Comment on above: Performed By: #### C BC #### [facility] [address] [address] [address] Karen Santos Monocytes/100 WBC (Bld) 5.2 % Normal 1.7-12.0 [facility] Comment on above: Performed By: #### C BC #### [facility] [address] [address] [address] Karen Santos NEUT # 9.9 103/ul Critically high 1.4-6.5 [facility] Comment on above: Performed By: #### C BC #### [facility] [address] [address] [address] Karen Santos Neutrophils/100 WBC (Bld) 84.3 % Critically high 43.0-75.0 [facility] Comment on above: Performed By: #### C BC #### [facility] [address] [place] [address] Dr. Karen Santos Platelet mean volume (Bld) [Entitic vol] 8.9 fL Critically low 9.5-13.5 [facility] Comment on above: Performed By: #### C BC #### [facility] [address] [address] [address] Karen Santos PLT 303 103/ul Normal 150-450 [facility] Comment on above: Performed By: #### C BC #### [facility] [address] [address] [address] Karen Santos RBC 3.85 106/ul Critically low 4.70-6.10 [facility] Comment on above: Performed By: #### C BC #### [facility] [address] [address] [address] Karen Santos WBC 11.7 103/ul Critically high 4.0-11.0 [facility] Comment on above: Performed By: #### C BC #### [facility] [address] [place], [place] [id number] Dr. Karen Santos CT HEAD WO CONon [...] LUDMILA MACK Date: 2022-02-14 13:41 Normal [facility] PROF 14(COMP METB)on 022 Albumin [Mass/Vol] 4.0 g/dL Normal 3.4-5.0 [facility] Comment on above: Performed By: #### C BC #### [facility] [address] [place] [address] Dr. Karen Santos Albumin/Globulin [Mass ratio] 1.0 {ratio} Normal [facility] Comment on above: Performed By: #### C BC #### [facility] [address] [place] [address] Dr. Karen Santos ALP [Catalytic activity/Vol] 112 U/L Normal 46-116 [facility] Comment on above: Performed By: #### C BC #### [facility] [address] [place] [address] Dr. Karen Santos ALT [Catalytic activity/Vol] 17 U/L Normal 16-63 [facility] Comment on above: Performed By: #### C BC #### [facility] [address] [place] [address] Dr. Karen Santos Anion gap [Moles/Vol] 14.9 mmol/L Normal [facility] Comment on above: Performed By: #### C BC #### [facility] [address] [address] [address] Karen Santos AST [Catalytic activity/Vol] 16 U/L Normal 15-37 [facility] Comment on above: Performed By: #### C BC #### [facility] [address] [address] [address] Karen Santos Bilirubin [Mass/Vol] 0.8 mg/dL Normal 0.2-1.0 [facility] Comment on above: Performed By: #### C BC #### [facility] [address] [address] [address] Karen Santos Calcium [Mass/Vol] 8.9 mg/dL Normal 8.5-10.1 [facility] Comment on above: Performed By: #### C BC #### [facility] [address] [address] [address] Karen Santos Chloride [Moles/Vol] 94 mmol/L Critically low 98-107 [facility] Comment on above: Performed By: #### C BC #### [facility] [address] [address] [address] Karen Santos CO2 [Moles/Vol] 25.0 mmol/L Normal 21.0-32.0 [facility] Comment on above: Performed By: #### C BC #### [facility] [address] [address] [address] Karen Santos Creatinine [Mass/Vol] 2.55 mg/dL Critically high 0.70-1.30 [facility] Comment on above: Performed By: #### C BC #### [facility] [address] [address] [address] Karen Santos EGFR-AF GUAMANIAN 32 mL/min/1.73m2 Critically low >=60 [facility] Comment on above: Performed By: #### C BC #### [facility] [address] [address] [address] Karen Santos EGFR-NON AF GUAMANIAN 27 mL/min/1.73m2 Critically low >=60 [facility] Comment on above: Performed By: #### C BC #### [facility] [address] [address] [address] Karen Santos Globulin (S) [Mass/Vol] 4.1 g/dL Normal [facility] Comment on above: Performed By: #### C BC #### [facility] [address] [address] [address] Karen Santos Glucose [Mass/Vol] 105 mg/dL Normal 74-106 [facility] Comment on above: Performed By: #### C BC #### [facility] [address] [address] [address] Karen Santos Potassium [Moles/Vol] 3.0 mmol/L Critically low 3.5-5.1 [facility] Comment on above: Performed By: #### C BC #### [facility] [address] [place] [address] Dr. Karen Santos Protein [Mass/Vol] 8.1 g/dL Normal 6.1-8.2 [facility] Comment on above: Performed By: #### C BC #### [facility] [address] [place] [address] Dr. Karen Santos Sodium [Moles/Vol] 132 mmol/L Critically low 136-145 [facility] Comment on above: Performed By: #### C BC #### [facility] [address] [place] [address] Dr. Karen Santos Urea nitrogen [Mass/Vol] 26.0 mg/dL Critically high 7.0-18.0 [facility] Comment on above: Performed By: #### C BC #### [facility] [address] [place] [address] Dr. Karen Santos Urea nitrogen/Creatinine [Mass ratio] 10.2 mg/mg Normal [facility] Comment on above: Performed By: #### C BC #### [facility] [address] [place] [address] Dr. Karen Santos PROTIMEon 02-14-2022 INR Coag (PPP) [Relative time] 1.04 {INR} Normal [facility] Comment on above: Performed By: #### P TT, PT ####[facility] [address] [place], [place] [address]Dr. Karen Santos INR GUIDELINES SEE BELOW Normal [facility] Comment on above: Result Comment: PALAK RED INR: 2.0 - 3.0 CONDITIONS NOT LISTED BELOW 2.5 - 3.5 FOR PROSTHETIC HEART VALVE REPLACEMENT 2.5 - 3.5 RECURRENT THROMBOSIS Performed By: #### P TT, PT ####[facility] [address] [place], [place] [address]Dr. Karen Santos PT Coag (PPP) [Time] 11.2 s Normal 9.0-11.6 [facility] Comment on above: Performed By: #### P TT, PT ####[facility] [id number] [place], [place] [address]Dr. Virajacinda Santos PTTon 02-14-2022 aPTT Coag (Bld) [Time] 27.7 s Normal 22.3-36.2 [facility] Comment on above: Performed By: #### P TT, PT ####[facility] [address] [place], [place] [address]Dr. Karen Santos XR CHEST 1 Von 02-14-2022 [...] DYLLAN ABREU Date: 2022-02-14 13:23 Normal [facility] BNPon 02-13-2022 Natriuretic peptide B (Bld) [Mass/Vol] 1509.0 pg/mL Critically high <=900.0 [facility] Comment on above: Performed By: #### C MP, BNP, HSTROPN ####[facility] [address] [address]DrEva Karen Tom CBC AUTO DIFFon 02-13-2022 BASO # 0.1 103/ul Normal 0.0-0.1 [facility] Comment on above: Performed By: #### C BC #### [facility] [address] [address] [address] Karen Santos Basophils/100 WBC (Bld) 0.5 % Normal 0.2-2.0 [facility] Comment on above: Performed By: #### C BC #### [facility] [address] [address] [address] Karen Santos EO # 0.3 103/ul Normal 0.0-0.7 [facility] Comment on above: Performed By: #### C BC #### [facility] [address] [address] [address] Karen Santos Eosinophils/100 WBC (Bld) 2.4 % Normal 0.9-7.0 [facility] Comment on above: Performed By: #### C BC #### [facility] [address] [place] [address] Dr. Karen Santos Erythrocyte distribution width (RBC) [Ratio] 13.1 % Normal 11.0-15.0 [facility] Comment on above: Performed By: #### C BC #### [facility] [address] [place] [address] Dr. Karen Santos Hematocrit (Bld) [Volume fraction] 38.8 % Critically low 42.0-54.0 [facility] Comment on above: Performed By: #### C BC #### [facility] [address] [place] [address] Dr. Karen Santos Hemoglobin (Bld) [Mass/Vol] 13.2 g/dL Critically low 14.0-18.0 [facility] Comment on above: Performed By: #### C BC #### [facility] [address] [place] [address] Dr. Karen Santos IG # 0.06 10e3/ul Critically high 0.00-0.03 [facility] Comment on above: Performed By: #### C BC #### [facility] [address] [address] [address] Karen Santos IG % 0.6 % Critically high 0.0-0.5 [facility] Comment on above: Performed By: #### C BC #### [facility] [address] [address] [address] Karen Santos LYMPH # 1.3 103/ul Normal 1.2-3.8 [facility] Comment on above: Performed By: #### C BC #### [facility] [address] [address] [address] Karen Santos Lymphocytes/100 WBC (Bld) 11.6 % Critically low 20.5-60.0 [facility] Comment on above: Performed By: #### C BC #### [facility] [address] [address] [address] Karen Santos MANUAL DIFF REQ NO Normal [facility] Comment on above: Performed By: #### C BC #### [facility] [address] [place] [address] Dr. Karen Santos MCH (RBC) [Entitic mass] 35.9 pg Critically high 25.9-34.0 [facility] Comment on above: Performed By: #### C BC #### [facility] [address] [place] [address] Dr. Karen Santos MCHC (RBC) [Mass/Vol] 34.0 g/dL Normal 29.9-35.2 [facility] Comment on above: Performed By: #### C BC #### [facility] [address] [place] [address] Dr. Karen Santos MCV (RBC) [Entitic vol] 105.4 fL Critically high 80.0-94.0 [facility] Comment on above: Performed By: #### C BC #### [facility] [address] [place] [address] Dr. Karen Santos MONO # 0.7 103/ul Normal 0.3-0.8 [facility] Comment on above: Performed By: #### C BC #### [facility] [address] [place] [address] Dr. Karen Santos Monocytes/100 WBC (Bld) 6.1 % Normal 1.7-12.0 [facility] Comment on above: Performed By: #### C BC #### [facility] [address] [address] [address] Karen Santos NEUT # 8.5 103/ul Critically high 1.4-6.5 [facility] Comment on above: Performed By: #### C BC #### [facility] [address] [address] [address] Karen Santos Neutrophils/100 WBC (Bld) 78.8 % Critically high 43.0-75.0 [facility] Comment on above: Performed By: #### C BC #### [facility] [address] [address] [address] Karen Santos Platelet mean volume (Bld) [Entitic vol] 9.1 fL Critically low 9.5-13.5 [facility] Comment on above: Performed By: #### C BC #### [facility] [address] [place] [address] Dr. Karen Santos PLT 283 103/ul Normal 150-450 [facility] Comment on above: Performed By: #### C BC #### [facility] [address] [address] [address] Karen Santos RBC 3.68 106/ul Critically low 4.70-6.10 [facility] Comment on above: Performed By: #### C BC #### [facility] [address] [address] [address] Karen Santos WBC 10.8 103/ul Normal 4.0-11.0 [facility] Comment on above: Performed By: #### C BC #### [facility] [address] [address] [address] Karen Santos ER URINE PROFILEon 2 Bilirubin Ql (U) Negative Normal NEGATIVE [facility] Comment on above: Performed By: #### E RUR ####[facility] [address] [id number][address] Karen Santos Clarity (U) CLEAR Normal CLEAR [facility] Comment on above: Performed By: #### E RUR ####[facility] [address] [id number]. Karen Santos Color (U) LT. YELLOW Normal YELLOW [facility] Comment on above: Performed By: #### E RUR ####[facility] [address] [place], [place] [address]Dr. Karen Santos ERUAHD A micrscopic examination will be performed if indicated. Normal [facility] Comment on above: Performed By: #### E RUR ####[facility] [address] [place], [place] [address]Dr. Karen Santos Glucose Ql (U) Negative Normal NEGATIVE [facility] Comment on above: Performed By: #### E RUR ####[facility] [address] [place], [place] [address]Dr. Karen Santos Hemoglobin Ql (U) Negative Normal NEGATIVE [facility] Comment on above: Performed By: #### E RUR ####[facility] [address] [place], [place] [address]Dr. Karen Santos Ketones Ql (U) Negative Normal NEGATIVE [facility] Comment on above: Performed By: #### E RUR ####[facility] [address] [place], [place] [address]Dr. Karen Santos LEUKOCYTES Negative Normal NEGATIVE [facility] Comment on above: Performed By: #### E RUR ####[facility] [address] [place], [place] [address]Dr. Karen Santos Nitrite Ql (U) Negative Normal NEGATIVE [facility] Comment on above: Performed By: #### E RUR ####[facility] [address] [place], [place] [address]Dr. Karen Santos pH (U) 6.0 [pH] Normal 5-9 [facility] Comment on above: Performed By: #### E RUR ####[facility] [id number] [place], [place] [address]Dr. Karen Santos SPEC GRAVITY <=1.005 Abnormal 1.005-<=1.02 5 [facility] Comment on above: Performed By: #### E RUR ####[facility] [address] [place], [place] [address]Dr. Karen Santos UA PROTEIN Negative Normal NEGATIVE/ TRACE [facility] Comment on above: Performed By: #### E RUR ####[facility] [address] [place], [place] [address]Dr. Karen Santos UR MICRO IND NOT INDICATED Normal [facility] Comment on above: Performed By: #### E RUR ####[facility] [address] [address]Dr. Karen Santos Urobilinogen Qn (U) 0.2 {Itz'U}/dL Normal 0.2 - 1. 0 [facility] Comment on above: Performed By: #### E RUR ####[facility] Qksrtwfcfc[address] [place], [place] [address]Dr. Karen Santos MAGNESIUMon 02-13-2022 Magnesium [Mass/Vol] 2.1 mg/dL Normal 1.8-2.4 [facility] Comment on above: Performed By: #### M G, RENAL ####[facility] Gtksutfb[address] [place], [place] [address]Dr. Karen Santos PROF 14(COMP METB)on 022 Albumin [Mass/Vol] 3.8 g/dL Normal 3.4-5.0 [facility] Comment on above: Performed By: #### C MP, BNP, HSTROPN ####[facility] Zhmbwy[address]su[address] [place], [place] [address]Dr. Karen Santos Performed By: #### M G, RENAL ####[facility] Wkokkavjqi[address] [place], [place] [address]Dr. Karen Santos Albumin/Globulin [Mass ratio] 0.9 {ratio} Normal [facility] Comment on above: Performed By: #### C MP, BNP, HSTROPN ####[facility] Foaxzgdo[address] [place], [place] [address]Dr. Karen Santos ALP [Catalytic activity/Vol] 111 U/L Normal 46-116 [facility] Comment on above: Performed By: #### C MP, BNP, HSTROPN ####[facility] Rkddgtuhre[address] [place], [place] [address]Dr. Karen Santos ALT [Catalytic activity/Vol] 15 U/L Critically low 16-63 [facility] Comment on above: Performed By: #### C MP, BNP, HSTROPN ####[facility] [address] [place] [address]Dr. Karen Santos Anion gap [Moles/Vol] 14.5 mmol/L Normal Th e [facility] Comment on above: Performed By: #### C MP, BNP, HSTROPN ####[facility] Chmcxmtqbu[address] [place], [place] [address]Dr. Karen Santos AST [Catalytic activity/Vol] 10 U/L Critically low 15-37 [facility] Comment on above: Performed By: #### C MP, BNP, HSTROPN ####[facility] Iswsbkxt[address] [place], [place] [address]Dr. Karen Santos Bilirubin [Mass/Vol] 0.5 mg/dL Normal 0.2-1.0 [facility] Comment on above: Performed By: #### C MP, BNP, HSTROPN ####[facility] Qkwesorfmb[address] [place], [place] [address]Dr. Karen Santos Calcium [Mass/Vol] 8.8 mg/dL Normal 8.5-10.1 [facility] Comment on above: Performed By: #### C MP, BNP, HSTROPN ####[facility] Paifls[address]pe[address] [place], [place] [address]Dr. Karen Santos Chloride [Moles/Vol] 97 mmol/L Critically low 98-107 [facility] Comment on above: Performed By: #### C MP, BNP, HSTROPN ####[facility] Nyhxmuqugi[address] [place], [place] [address]Dr. Karen Santos Performed By: #### M G, RENAL ####[facility] Oclexborpw[address] [place], [place] [address]Dr. Virajacinda Santos CO2 [Moles/Vol] 27.5 mmol/L Normal 21.0-32.0 [facility] Comment on above: Performed By: #### C MP, BNP, HSTROPN ####[facility] [address] [place] [address]Dr. Karen Santos Creatinine [Mass/Vol] 2.59 mg/dL Critically high 0.70-1.30 [facility] Comment on above: Performed By: #### C MP, BNP, HSTROPN ####[facility] [address]uk[address] [place] [address]Dr. Karen Santos EGFR-AF GUAMANIAN 32 mL/min/1.73m2 Critically low >=60 [facility] Comment on above: Performed By: #### C MP, BNP, HSTROPN ####[facility] [address] [place] [address]Dr. Karen Santos EGFR-NON AF GUAMANIAN 26 mL/min/1.73m2 Critically low >=60 [facility] Comment on above: Performed By: #### C MP, BNP, HSTROPN ####[facility] [address] [place] [address]Dr. Karen Santos Globulin (S) [Mass/Vol] 4.0 g/dL Normal The [facility] Comment on above: Performed By: #### C MP, BNP, HSTROPN ####[facility] Vwbzfslbzi[address] [place], [place] [address]Dr. Karen Santos Glucose [Mass/Vol] 100 mg/dL Normal 74-106 [facility] Comment on above: Performed By: #### C MP, BNP, HSTROPN ####[facility] [address] [place] [address]Dr. Karen Santos Potassium [Moles/Vol] 3.0 mmol/L Critically low 3.5-5.1 [facility] Comment on above: Performed By: #### C MP, BNP, HSTROPN ####[facility] Qchadifbxy[address] [place], [place] [address]Dr. Karen Santos Protein [Mass/Vol] 7.8 g/dL Normal 6.1-8.2 [facility] Comment on above: Performed By: #### C MP, BNP, HSTROPN ####[facility] [address] [place] [phone]. Karen Santos Sodium [Moles/Vol] 135 mmol/L Critically low 136-145 [facility] Comment on above: Performed By: #### C MP, BNP, HSTROPN ####[facility] [address]kt[address] [place] [phone]. Karen Santos Urea nitrogen [Mass/Vol] 27.0 mg/dL Critically high 7.0-18.0 [facility] Comment on above: Performed By: #### C MP, BNP, HSTROPN ####[facility] Y[address]weys[address] [place] [address]Dr. Karen Santos Urea nitrogen/Creatinine [Mass ratio] 10.4 mg/mg Normal [facility] Comment on above: Performed By: #### C MP, BNP, HSTROPN ####[facility] Fksxspcpyt[address] [place], [place] [address]Dr. Karen Santos RENAL FUNCTION PANELon 02-13 Calcium [Mass/Vol] 9.1 mg/dL Normal 8.5-10.1 [facility] Comment on above: Performed By: #### M G, RENAL ####[facility] Cuscfuciao[address] [place], [place] [address]Dr. Karen Santos CO2 [Moles/Vol] 30.8 mmol/L Normal 21.0-32.0 [facility] Comment on above: Performed By: #### M G, RENAL ####[facility] Yxwzjrmzod[address] [place], [place] [address]Dr. Karen Santos Creatinine [Mass/Vol] 2.67 mg/dL Critically high 0.70-1.30 [facility] Comment on above: Performed By: #### M G, RENAL ####[facility] Waoorlyeli[address] [place], [place] [address]Dr. Karen Santos EGFR-AF GUAMANIAN 31 mL/min/1.73m2 Critically low >=60 [facility] Comment on above: Performed By: #### M G, RENAL ####[facility] Zbevxdxsfy[address] [place], [place] [address]Dr. Karen Santos EGFR-NON AF GUAMANIAN 25 mL/min/1.73m2 Critically low >=60 [facility] Comment on above: Performed By: #### Marcelo G, RENAL ####[facility] Tw[address]hl[address] [place] [address]Dr. Karen Santos Glucose [Mass/Vol] 119 mg/dL Critically high 74-106 [facility] Comment on above: Performed By: #### M G, RENAL ####[facility] Ajrnqlgbfe4467[address] [place], [place] [address]Dr. Karen Santos Phosphate [Mass/Vol] 3.8 mg/dL Normal 2.6-4.7 [facility] Comment on above: Performed By: #### Marcelo Hwang, RENAL ####[facility] Zejscwhjze[address] [place], [place] [address]Dr. Karen Santos Potassium [Moles/Vol] 3.8 mmol/L Normal 3.5-5.1 [facility] Comment on above: Performed By: #### Marcelo Hwang, RENAL ####[facility] Efagztdgdp[address] [place], [place] [address]Dr. Karen Santos Sodium [Moles/Vol] 137 mmol/L Normal 136-145 [facility] Comment on above: Performed By: #### Marcelo Hwang, RENAL ####[facility] Lrinkkaplc[address] [place], [place] [address]Dr. Karen Santos Urea nitrogen [Mass/Vol] 25.0 mg/dL Critically high 7.0-18.0 [facility] Comment on above: Performed By: #### Marcelo Hwang, RENAL ####[facility] Rueorjlihw[address] [place], [place] [address]Dr. Karen Santos TROPONIN, HIGH SENSITIVITYon 02-13-2022 HSTROP 20.8 pg/mL Normal 4.0-76.1 [facility] Comment on above: Result Comment: CUT- OFF POINTS HAVE BEEN ESTABLISHED BASED ON THE FOURTH UNIVERSAL DEFINITIONS OF MYOCARDIAL INFARCTION. THE UPPER REFERENCE LIMIT (URL) OF TROPONIN, DEFINED THE 99TH PERCENTILE OF cTnI DISTRIBUTION IN A REFERENCE POPULATION, HAS BEEN CONFIRMED THE DECISION THRESHOLD FOR [place] DIAGNOSIS. Performed By: #### C MP, BNP, HSTROPN ####[facility] [address] [place], [place] [address]Od. Karen Santos XR CHEST 1 Von 02-13-2022 [...] VIVIAN MCKEON Date: 2022-02-13 20:45 Normal The [facility] PROF CHEM 8 (BAS METB)on Anion gap [Moles/Vol] 12.5 mmol/L Normal [facility] Comment on above: Performed By: #### B MP ####[facility] [address] [place] [phone]. Virajacinda Tom Calcium [Mass/Vol] 8.7 mg/dL Normal 8.5-10.1 [facility] Comment on above: Performed By: #### B MP ####[facility] [address]wsx[address] [place] [phone]. Karen Santos Chloride [Moles/Vol] 101 mmol/L Normal 98-107 [facility] Comment on above: Performed By: #### B MP ####[facility] Dsxum[address]wn[address] [place] [phone]. Karen Santos CO2 [Moles/Vol] 28.8 mmol/L Normal 21.0-32.0 [facility] Comment on above: Performed By: #### B MP ####[facility] [address]xf[address]rf[address] [place] [phone]. Karen Santos Creatinine [Mass/Vol] 2.31 mg/dL Critically high 0.70-1.30 [facility] Comment on above: Performed By: #### B MP ####[facility] [address]sfxrbfm[address] [place] [phone]. Karen Santos EGFR-AF GUAMANIAN 36 mL/min/1.73m2 Critically low >=60 [facility] Comment on above: Performed By: #### B MP ####[facility] [address]zscxlurbk[address] [place] [phone]. Karen Santos EGFR-NON AF GUAMANIAN 30 mL/min/1.73m2 Critically low >=60 [facility] Comment on above: Performed By: #### B MP ####[facility] Nck[address]cmk[address] [place] [phone]. Karen Santos Glucose [Mass/Vol] 122 mg/dL Critically high 74-106 [facility] Comment on above: Performed By: #### B MP ####[facility] [address]lysvxvds[address] [place] [phone]. Karen Santos Potassium [Moles/Vol] 4.3 mmol/L Normal 3.5-5.1 [facility] Comment on above: Performed By: #### B MP ####[facility] [address] [place] [address]Dr. Karen Santos Sodium [Moles/Vol] 138 mmol/L Normal 136-145 [facility] Comment on above: Performed By: #### B MP ####[facility] Os[address]hpkl[address] [place] [phone]. Karen Santos Urea nitrogen [Mass/Vol] 26.0 mg/dL Critically high 7.0-18.0 [facility] Comment on above: Performed By: #### B MP ####[facility] [address]pcjcjdm[address] [place] [phone]. Karen Santos Urea nitrogen/Creatinine [Mass ratio] 11.3 mg/mg Normal [facility] Comment on above: Performed By: #### B MP ####[facility] H[address]psvrcon[address] [place] [phone] Santos RENIN ACTIVITYon 01-10-2022 Renin Activity, Plasma 43.749 ng/mL/hr Critically high 0.1 67-5.380 [facility] Comment on above: Performed By: #### C BC #### [facility] [phone] Karen Santos MAGNESIUMon 12-30-2021 Magnesium [Mass/Vol] 2.2 mg/dL Normal 1.6-2.3 [facility] Comment on above: Performed By: #### C BC #### [facility] [address] [place] [address] Dr. Karen Santos RENAL FUNCTION PANELon 12-30 Albumin [Mass/Vol] 3.5 g/dL Normal 3.4-5.0 [facility] Comment on above: Performed By: #### C BC #### [facility] [address] [place] [address] Dr. Karen Santos Calcium [Mass/Vol] 8.1 mg/dL Critically low 8.5-10.1 [facility] Comment on above: Performed By: #### C BC #### [facility] [address] [place] [address] Dr. Karen Santos Chloride [Moles/Vol] 97 mmol/L Critically low 98-107 [facility] Comment on above: Performed By: #### C BC #### [facility] [address] [place] [address] Dr. Karen Santos CO2 [Moles/Vol] 22.8 mmol/L Normal 22.0-30.0 [facility] Comment on above: Performed By: #### C BC #### [facility] [address] [place] [address] Dr. Karen Santos Creatinine [Mass/Vol] 6.56 mg/dL Critically high 0.66-1.25 [facility] Comment on above: Result Comment: TEST REPEATED CRITICAL VALUE VERIFIED Performed By: #### C BC #### [facility] [address] [place] [address] Dr. Karen Santos EGFR-AF GUAMANIAN 11 mL/min/1.73m2 Critically low >=60 [facility] Comment on above: Performed By: #### C BC #### [facility] [address] [place] [address] Dr. Karen Santos EGFR-NON AF GUAMANIAN 9 mL/min/1.73m2 Critically low >=60 [facility] Comment on above: Performed By: #### C BC #### [facility] [address] [place] [address] [address] Karen Santos Glucose [Mass/Vol] 109 mg/dL Critically high 74-106 T [facility] Comment on above: Performed By: #### C BC #### [facility] [address] [place] [address] [address] Karen Santos Phosphate [Mass/Vol] 6.2 mg/dL Critically high 2.5-4.5 [facility] Comment on above: Result Comment: TEST REPEATED CRITICAL VALUE VERIFIED Performed By: #### C BC #### [facility] [address] [place] [address] [address] Karen Santos Potassium [Moles/Vol] 3.4 mmol/L Normal 3.4-5.0 [facility] Comment on above: Performed By: #### C BC #### [facility] [address] [place] [address] [address] Karen Santos Sodium [Moles/Vol] 133 mmol/L Critically low 137-145 Th [facility] Comment on above: Performed By: #### C BC #### [facility] [address] [place] [address] [address] Karen Santos Urea nitrogen [Mass/Vol] 69.0 mg/dL Critically high 7.0-18.0 [facility] Comment on above: Performed By: #### C BC #### [facility] [address] [place] [address] [address] Karen Santos ALDOSTERONE LCMS, SERUMon Aldosterone 1.4 ng/dL Normal 0.0-30.0 [facility] Comment on above: Performed By: #### C BC #### [facility] [address] [place] [address] [address] Karen Santos METANEPHRINES PLASMA FREEon 12-22-2021 Metanephrine, Pl 46.7 pg/mL Normal 0.0-88.0 [facility] Comment on above: Performed By: #### M ETANPF ####[facility] [address] [place] [address]Dr. Karen Santos Normetanephrine, Pl 163.0 pg/mL Normal 0.0-244.0 [facility] Comment on above: Performed By: #### M ETANPF ####[facility] [address] [place] [address]Dr. Karen Santos RENAL FUNCTION PANELon 12-22 Albumin [Mass/Vol] 3.9 g/dL Normal 3.5-5.0 [facility] Comment on above: Performed By: #### R ENAL ####[facility] Y[address] [place] [address]Dr. Karen Santos Calcium [Mass/Vol] 8.9 mg/dL Normal 8.4-10.2 [facility] Comment on above: Performed By: #### R ENAL ####[facility] [address]qso[address]ysnu[address] [place], [place] [address]Dr. Karen Santos Chloride [Moles/Vol] 103 mmol/L Normal 98-107 [facility] Comment on above: Performed By: #### R ENAL ####[facility] [address]feigyyeq[address] [place], [place] [address]Dr. Karen Santos CO2 [Moles/Vol] 22.8 mmol/L Normal 22.0-30.0 [facility] Comment on above: Performed By: #### R ENAL ####[facility] [address] [place], [place] [address]Dr. Karen Santos Creatinine [Mass/Vol] 4.68 mg/dL Critically high 0.66-1.25 [facility] Comment on above: Performed By: #### R ENAL ####[facility] [address] [place] [address]Dr. Karen Santos EGFR-AF GUAMANIAN 16 mL/min/1.73m2 Critically low >=60 [facility] Comment on above: Performed By: #### R ENAL ####[facility] [address] [place] [address]Dr. Karen Santos EGFR-NON AF GUAMANIAN 13 mL/min/1.73m2 Critically low >=60 [facility] Comment on above: Performed By: #### R ENAL ####[facility] [address] [place] [phone]. Karen Santos Glucose [Mass/Vol] 99 mg/dL Normal 74-106 [facility] Comment on above: Performed By: #### R ENAL ####[facility] E[address]od[address] [place] [phone]. Karen Santos Phosphate [Mass/Vol] 4.7 mg/dL Critically high 2.5-4.5 [facility] Comment on above: Performed By: #### R ENAL ####[facility] [address] [place] [address]Dr. Karen Santos Potassium [Moles/Vol] 5.4 mmol/L Critically high 3.4-5.0 [facility] Comment on above: Performed By: #### R ENAL ####[facility] [address] [place] [address]Dr. Karen Santos Sodium [Moles/Vol] 135 mmol/L Critically low 137-145 [facility] Comment on above: Performed By: #### R ENAL ####[facility] [address] [place] [phone]. Karen Santos Urea nitrogen [Mass/Vol] 64.0 mg/dL Critically high 9.0-20.0 [facility] Comment on above: Performed By: #### R ENAL ####[facility] [address] [place] [address]Dr. Karen Santos RENAL FUNCTION PANELon 12-19 Albumin [Mass/Vol] 3.5 g/dL Normal 3.5-5.0 [facility] Comment on above: Performed By: #### C BC #### [facility] [address] [address] [address] Karen Santos Calcium [Mass/Vol] 8.5 mg/dL Normal 8.4-10.2 [facility] Comment on above: Performed By: #### C BC #### [facility] [address] [address] [address] Karen Santos Chloride [Moles/Vol] 107 mmol/L Normal 98-107 [facility] Comment on above: Performed By: #### C BC #### [facility] [address] [address] [address] Karen Santos CO2 [Moles/Vol] 21.2 mmol/L Critically low 22.0-30.0 [facility] Comment on above: Performed By: #### C BC #### [facility] [address] [address] [address] Karen Santos Creatinine [Mass/Vol] 4.93 mg/dL Critically high 0.66-1.25 [facility] Comment on above: Performed By: #### C BC #### [facility] [address] [address] [address] Karen Santos EGFR-AF GUAMANIAN 15 mL/min/1.73m2 Critically low >=60 [facility] Comment on above: Performed By: #### C BC #### [facility] [address] [address] [address] Karen Santos EGFR-NON AF GUAMANIAN 12 mL/min/1.73m2 Critically low >=60 [facility] Comment on above: Performed By: #### C BC #### [facility] [address] [address] [address] Karen Santos Glucose [Mass/Vol] 113 mg/dL Critically high 74-106 [facility] Comment on above: Performed By: #### C BC #### [facility] [address] [address] [address] Karen Santos Phosphate [Mass/Vol] 5.0 mg/dL Critically high 2.5-4.5 [facility] Comment on above: Performed By: #### C BC #### [facility] [address] [address] [address] Karen Santos Potassium [Moles/Vol] 5.2 mmol/L Critically high 3.4-5.0 [facility] Comment on above: Performed By: #### C BC #### [facility] [address] [address] [address] Karen Santos Sodium [Moles/Vol] 138 mmol/L Normal 137-145 [facility] Comment on above: Performed By: #### C BC #### [facility] [address] [address] [address] Karen Santos Urea nitrogen [Mass/Vol] 60.0 mg/dL Critically high 9.0-20.0 [facility] Comment on above: Performed By: #### C BC #### [facility] [address] [place] [address] Dr. Karen Santos PROF CHEM 8 (BAS METB)on Anion gap [Moles/Vol] 13.7 mmol/L Normal [facility] Comment on above: Performed By: #### C BC #### [facility] [address] [place] [address] Dr. Karen Santos Calcium [Mass/Vol] 8.8 mg/dL Normal 8.4-10.2 [facility] Comment on above: Performed By: #### C BC #### [facility] [address] [place] [address] Dr. Karen Santos Chloride [Moles/Vol] 102 mmol/L Normal 98-107 [facility] Comment on above: Performed By: #### C BC #### [facility] [address] [place] [address] Dr. Karen Santos CO2 [Moles/Vol] 23.6 mmol/L Normal 22.0-30.0 [facility] Comment on above: Performed By: #### C BC #### [facility] [address] [place] [address] Dr. Karen Santos Creatinine [Mass/Vol] 4.15 mg/dL Critically high 0.66-1.25 [facility] Comment on above: Performed By: #### C BC #### [facility] [address] [place] [address] Dr. Karen Santos EGFR-AF GUAMANIAN 18 mL/min/1.73m2 Critically low >=60 [facility] Comment on above: Performed By: #### C BC #### [facility] [address] [place] [address] Dr. Karen Santos EGFR-NON AF GUAMANIAN 15 mL/min/1.73m2 Critically low >=60 [facility] Comment on above: Performed By: #### C BC #### [facility] [address] [address] [address] Karen Santos Glucose [Mass/Vol] 108 mg/dL Critically high 74-106 T [facility] Comment on above: Performed By: #### C BC #### [facility] [address] [id number] Karen Santos Potassium [Moles/Vol] 5.3 mmol/L Critically high 3.4-5.0 [facility] Comment on above: Performed By: #### C BC #### [facility] [address] [address] [address] Karen Santos Sodium [Moles/Vol] 134 mmol/L Critically low 137-145 Th [facility] Comment on above: Performed By: #### C BC #### Select [facility] [address] [address] [address] Karen Santos Urea nitrogen [Mass/Vol] 49.0 mg/dL Critically high 9.0-20.0 [facility] Comment on above: Performed By: #### C BC #### [facility] [id number] Karen Santos Urea nitrogen/Creatinine [Mass ratio] 11.8 mg/mg Normal [facility] Comment on above: Performed By: #### C BC #### [facility] [address] [address] [address] Karen Santos B-Type Natriuretic Peptideon 12-05-2021 Natriuretic peptide B (Bld) [Mass/Vol] 50.0 pg/mL 5-100 [facility] Other BNPon 12-05-2021 Natriuretic peptide B (Bld) [Mass/Vol] 720.0 pg/mL Normal <=900.0 [facility] Comment on above: Performed By: #### B WASHER MACHINE, CMP ####[facility] [address] [address]Dr. Karen Santos Comprehensive Metabolic Pane fletcher 12-05-2021 Albumin [Mass/Vol] 3.9 g/dL 3.2-5.5 Merged With [facility] Other Albumin/Globulin [Mass ratio] 1.2 {ratio} Merged With [facility] Other ALP [Catalytic activity/Vol] 89 U/L 32-92 Merged With [facility] Other ALT [Catalytic activity/Vol] 10 U/L 10-60 Merged With [facility] Other AST [Catalytic activity/Vol] 10 U/L 10-42 Merged With [facility] Other Bilirubin [Mass/Vol] 0.7 mg/dL 0.3-1.2 [facility] Other Calcium [Mass/Vol] 9.1 mg/dL Normal 8.4-10.2 Merged With [facility] Other Comment on above: Performed By: #### B WASHER MACHINE, CMP ####[facility] [address] [place], [place] [address]Dr. Karen Santos Chloride [Moles/Vol] 101 mmol/L Normal 98-107 [facility] Other Comment on above: Performed By: #### B WASHER MACHINE, CMP ####[facility] [address] [place], [place] [address]Dr. Karen Santos CO2 [Moles/Vol] 18.1 mmol/L 22.0-30.0 [facility]ios Other Creatinine [Mass/Vol] 5.16 mg/dL 0.64-1.27 [facility] Other Glucose [Mass/Vol] 89 mg/dL 70-100 Merged With [facility] Other Potassium [Moles/Vol] 5.3 mmol/L Critically high 3.4-5.0 Merged With [facility] Other Comment on above: Performed By: #### B WASHER MACHINE, CMP ####[facility] [address] [place], [place] [address]Dr. Karen Santos Protein [Mass/Vol] 7.2 g/dL 6.1-7.9 [facility] Other Sodium [Moles/Vol] 131 mmol/L 136-146 [facility] Other Urea nitrogen [Mass/Vol] 49 mg/dL 9-23 [facility] Other Comprehensive Metabolic Panel 12 [facility] Other Comprehensive Metabolic Panel 14 [facility] Other Comprehensive Metabolic Panel 3.3 [facility] Other PHOSPHORUSon 12-05-2021 Phosphate [Mass/Vol] 5.2 mg/dL Critically high 2.5-4.5 [facility] Comment on above: Performed By: #### P HOS ####[facility] [address] [place], [place] [address]DrEva Santos PROF 14(COMP METB)on 022 Albumin [Mass/Vol] 3.8 g/dL Normal 3.5-5.0 [facility] Comment on above: Performed By: #### B WASHER MACHINE, CMP ####[facility] [address] [place], [place] [address]DrEva Santos Albumin/Globulin [Mass ratio] 1.0 {ratio} Normal [facility] Comment on above: Performed By: #### B WASHER MACHINE, CMP ####[facility] [address] [address]DrEva Santos ALP [Catalytic activity/Vol] 109 U/L Normal 38-126 [facility] Comment on above: Performed By: #### B WASHER MACHINE, CMP ####[facility] [address] [address]DrEva Santos ALT [Catalytic activity/Vol] 12 U/L Critically low 21-72 [facility] Comment on above: Performed By: #### B WASHER MACHINE, CMP ####[facility] [address] [address]DrEva Santos Anion gap [Moles/Vol] 16.7 mmol/L Normal Th e [facility] Comment on above: Performed By: #### B WASHER MACHINE, CMP ####[facility] [address] [place], [place] [address]Dr. Virajacinda Santos AST [Catalytic activity/Vol] 8 U/L Critically low 17-59 [facility] Comment on above: Performed By: #### B WASHER MACHINE, CMP ####[facility] [address] [place], [place] [address]Dr. Karen Santos Bilirubin [Mass/Vol] 0.4 mg/dL Normal 0.2-1.3 [facility] Comment on above: Performed By: #### B WASHER MACHINE, CMP ####[facility] [address] [place], [place] [address]Dr. Karen Santos CO2 [Moles/Vol] 21.6 mmol/L Critically low 22.0-30.0 [facility] Comment on above: Performed By: #### B WASHER MACHINE, CMP ####[facility] [address] [place], [place] [address]Dr. Karen Santos Creatinine [Mass/Vol] 5.29 mg/dL Critically high 0.66-1.25 [facility] Comment on above: Performed By: #### B WASHER MACHINE, CMP ####[facility] [address] [place], [place] [address]Dr. Karen Santos EGFR-AF GUAMANIAN 14 mL/min/1.73m2 Critically low >=60 [facility] Comment on above: Performed By: #### B WASHER MACHINE, CMP ####[facility] [address] [place], [place] [address]Dr. Karen Santos EGFR-NON AF GUAMANIAN 11 mL/min/1.73m2 Critically low >=60 [facility] Comment on above: Performed By: #### B WASHER MACHINE, CMP ####[facility] F[address] [place], [place] [address]Dr. Karen Santos Globulin (S) [Mass/Vol] 3.8 g/dL Normal [facility] Comment on above: Performed By: #### B WASHER MACHINE, CMP ####[facility] [address] [place], [place] [address]Dr. Karen Santos Glucose [Mass/Vol] 111 mg/dL Critically high 74-106 T [facility] Comment on above: Performed By: #### B WASHER MACHINE, CMP ####[facility] [address] [address]Dr. Karen Santos Protein [Mass/Vol] 7.6 g/dL Normal 6.1-8.2 [facility] Comment on above: Performed By: #### B WASHER MACHINE, CMP ####[facility] [address] [address]Dr. Karen Santos Sodium [Moles/Vol] 134 mmol/L Critically low 137-145 Th [facility] Comment on above: Performed By: #### B WASHER MACHINE, CMP ####[facility] [address] [address]Dr. Karen Sanots Urea nitrogen [Mass/Vol] 51.0 mg/dL Critically high 9.0-20.0 [facility] Comment on above: Performed By: #### B WASHER MACHINE, CMP ####[facility] [address] [address]Dr. Karen Santos Urea nitrogen/Creatinine [Mass ratio] 9.6 mg/mg Normal [facility] Comment on above: Performed By: #### B WASHER MACHINE, CMP ####[facility] [address] [address]Dr. Karen Santos HEMOGRAM AND PLATELon 2021 Hematocrit (Bld) [Volume fraction] 36.4 % Critically low 42.0-54.0 [facility] Comment on above: Performed By: #### C BC #### [facility] [address] [address] [address] Karen Santos Hemoglobin (Bld) [Mass/Vol] 12.2 g/dL Critically low 14.0-18.0 [facility] Comment on above: Performed By: #### C BC #### [facility] [address] [address] [address] Karen Santos MCH (RBC) [Entitic mass] 34.8 pg Critically high 25.9-34.0 [facility] Comment on above: Performed By: #### C BC #### [facility] [address] [address] [address] Karen Santos MCHC (RBC) [Mass/Vol] 33.5 g/dL Normal 29.9-35.2 [facility] Comment on above: Performed By: #### C BC #### [facility] [address] [address] [address] Karen Santos MCV (RBC) [Entitic vol] 103.7 fL Critically high 80.0-94.0 [facility] Comment on above: Performed By: #### C BC #### [facility] [address] [address] [address] Karen Santos PLT 215 103/ul Normal 150-450 [facility] Comment on above: Performed By: #### C BC #### [facility] [address] [address] [address] Karen Santos RBC 3.51 106/ul Critically low 4.70-6.10 [facility] Comment on above: Performed By: #### C BC #### [facility] [address] [address] [address] Karen Santos WBC 9.3 103/ul Normal 4.0-11.0 [facility] Comment on above: Performed By: #### C BC #### [facility] [address] [place] [address] Dr. Karen Santos MAGNESIUMon 11-28-2021 Magnesium [Mass/Vol] 2.3 mg/dL Normal 1.6-2.3 [facility] Comment on above: Performed By: #### M G, RENAL #### [facility] [address] [address] [address] Karen Santos RENAL FUNCTION PANELon 11-28 Albumin [Mass/Vol] 3.5 g/dL Normal 3.5-5.0 [facility] Comment on above: Performed By: #### M G, RENAL #### [facility] [address] [address] [address] Karen Santos Calcium [Mass/Vol] 8.9 mg/dL Normal 8.4-10.2 [facility] Comment on above: Performed By: #### M G, RENAL #### [facility] [address] [place] [address] Dr. Karen Santos Chloride [Moles/Vol] 106 mmol/L Normal 98-107 [facility] Comment on above: Performed By: #### M G, RENAL #### [facility] [address] [place] [address] Dr. Karen Santos CO2 [Moles/Vol] 22.7 mmol/L Normal 22.0-30.0 [facility] Comment on above: Performed By: #### M G, RENAL #### [facility] [address] [place] [address] Dr. Karen Santos Creatinine [Mass/Vol] 3.00 mg/dL Critically high 0.66-1.25 [facility] Comment on above: Performed By: #### Marcelo Hwang, RENAL #### [facility] [address] [place] [address] Dr. Karen Santos EGFR-AF GUAMANIAN 27 mL/min/1.73m2 Critically low >=60 [facility] Comment on above: Performed By: #### Marcelo G, RENAL #### [facility] [address] [place] [address] Dr. Karen Santos EGFR-NON AF GUAMANIAN 22 mL/min/1.73m2 Critically low >=60 [facility] Comment on above: Performed By: #### M G, RENAL #### [facility] [address] [place] [address] Dr. Karen Santos Glucose [Mass/Vol] 87 mg/dL Normal 74-106 [facility] Comment on above: Performed By: #### M G, RENAL #### [facility] [address] [place] [address] Dr. Karen Santos Phosphate [Mass/Vol] 3.5 mg/dL Normal 2.5-4.5 [facility] Comment on above: Performed By: #### M G, RENAL #### [facility] [address] [place] [address] Dr. Karen Santos Potassium [Moles/Vol] 5.4 mmol/L Critically high 3.4-5.0 [facility] Comment on above: Performed By: #### M G, RENAL #### [facility] [address] [address] [address] Karen Santos Sodium [Moles/Vol] 136 mmol/L Critically low 137-145 Th [facility] Comment on above: Performed By: #### M G, RENAL #### [facility] [address] [place] [address] Dr. Karen Santos Urea nitrogen [Mass/Vol] 36.0 mg/dL Critically high 9.0-20.0 [facility] Comment on above: Performed By: #### M G, RENAL #### [facility] [address] [place] [address] Dr. Karen Santos US KIDNEYSon 10-29-2021 US [...] ADRIENNE MOLINA Date: 2021-10-29 09:39 Normal [facility] BNPon 09-13-2021 Natriuretic peptide B (Bld) [Mass/Vol] 316.0 pg/mL Normal <=900.0 [facility] Comment on above: Performed By: #### C BC #### [facility] [address] [place] [address] Dr. Karen Santos CBC AUTO DIFFon 09-13-2021 BASO # 0.1 103/ul Normal 0.0-0.1 [facility] Comment on above: Performed By: #### M G, RENAL #### [facility] [address] [place] [address] Dr. Karen Santos Basophils/100 WBC (Bld) 0.5 % Normal 0.2-2.0 [facility] Comment on above: Performed By: #### M G, RENAL #### [facility] [address] [place] [address] Dr. Karen Santos EO # 0.3 103/ul Normal 0.0-0.7 [facility] Comment on above: Performed By: #### M G, RENAL #### [facility] [address] [place] [address] Dr. Karen Santos Eosinophils/100 WBC (Bld) 2.9 % Normal 0.9-7.0 [facility] Comment on above: Performed By: #### M G, RENAL #### [facility] [address] [place] [address] Dr. Karen Santos Erythrocyte distribution width (RBC) [Ratio] 14.9 % Normal 11.0-15.0 [facility] Comment on above: Performed By: #### M G, RENAL #### [facility] [address] [place] [address] Dr. Karen Santos Hematocrit (Bld) [Volume fraction] 38.3 % Critically low 42.0-54.0 [facility] Comment on above: Performed By: #### M G, RENAL #### [facility] [address] [place] [address] Dr. Karen Santos Hemoglobin (Bld) [Mass/Vol] 12.9 g/dL Critically low 14.0-18.0 [facility] Comment on above: Performed By: #### M G, RENAL #### [facility] [address] [place] [address] Dr. Karen Santos IG # 0.07 10e3/ul Critically high 0.00-0.03 [facility] Comment on above: Performed By: #### M G, RENAL #### [facility] [address] [place] [address] Dr. Karen Santos IG % 0.6 % Critically high 0.0-0.5 [facility] Comment on above: Performed By: #### M G, RENAL #### [facility] [address] [address] [address] Karen Santos LYMPH # 2.4 103/ul Normal 1.2-3.8 [facility] Comment on above: Performed By: #### M G, RENAL #### [facility] [address] [address] [address] Karen Santos Lymphocytes/100 WBC (Bld) 21.3 % Normal 20.5-60.0 [facility] Comment on above: Performed By: #### M G, RENAL #### [facility] [address] [address] [address] Karen Santos MANUAL DIFF REQ NO Normal [facility] Comment on above: Performed By: #### M G, RENAL #### [facility] [address] [place] [address] Dr. Karen Santos MCH (RBC) [Entitic mass] 33.6 pg Normal 25.9-34.0 [facility] Comment on above: Performed By: #### M G, RENAL #### [facility] [address] [place] [address] Dr. Karen Santos MCHC (RBC) [Mass/Vol] 33.7 g/dL Normal 29.9-35.2 [facility] Comment on above: Performed By: #### M G, RENAL #### [facility] [address] [place] [address] Dr. Karen Santos MCV (RBC) [Entitic vol] 99.7 fL Critically high 80.0-94.0 [facility] Comment on above: Performed By: #### M G, RENAL #### [facility] [address] [place] [address] Dr. Karen Santos MONO # 0.8 103/ul Normal 0.3-0.8 [facility] Comment on above: Performed By: #### M G, RENAL #### [facility] [address] [address] [address] Karen Santos Monocytes/100 WBC (Bld) 7.2 % Normal 1.7-12.0 [facility] Comment on above: Performed By: #### M G, RENAL #### [facility] [address] [place] [address] Dr. Karen Santos NEUT # 7.7 103/ul Critically high 1.4-6.5 [facility] Comment on above: Performed By: #### M G, RENAL #### [facility] [address] [place] [address] Dr. Karen Santos Neutrophils/100 WBC (Bld) 67.5 % Normal 43.0-75.0 [facility] Comment on above: Performed By: #### M G, RENAL #### [facility] [address] [place] [address] Dr. Karen Santos Platelet mean volume (Bld) [Entitic vol] 9.4 fL Critically low 9.5-13.5 [facility] Comment on above: Performed By: #### Marcelo Hwang, RENAL #### [facility] [address] [place] [address] Dr. Karen Santos PLT 330 103/ul Normal 150-450 [facility] Comment on above: Performed By: #### M G, RENAL #### [facility] [address] [place] [address] Dr. Karen Santos RBC 3.84 106/ul Critically low 4.70-6.10 [facility] Comment on above: Performed By: #### Marcelo G, RENAL #### [facility] [address] [place] [address] Dr. Karen Santos WBC 11.4 103/ul Critically high 4.0-11.0 [facility] Comment on above: Performed By: #### M G, RENAL #### [facility] [address] [place] [address] Dr. Karen Santos PROF 14(COMP METB)on 021 Albumin [Mass/Vol] 3.7 g/dL Normal 3.5-5.0 [facility] Comment on above: Performed By: #### C BC #### [facility] [address] [place] [address] Dr. Karen Santos Albumin/Globulin [Mass ratio] 0.8 {ratio} Normal [facility] Comment on above: Performed By: #### C BC #### [facility] [address] [place] [address] Dr. Karen Santos ALP [Catalytic activity/Vol] 113 U/L Normal 38-126 [facility] Comment on above: Performed By: #### C BC #### [facility] [address] [place] [address] Dr. Karen Santos ALT [Catalytic activity/Vol] 20 U/L Critically low 21-72 [facility] Comment on above: Performed By: #### C BC #### [facility] [address] [place] [address] Dr. Karen Santos Anion gap [Moles/Vol] 14.1 mmol/L Normal [facility] Comment on above: Performed By: #### C BC #### [facility] [address] [place] [address] Dr. Karen Santos AST [Catalytic activity/Vol] 8 U/L Critically low 17-59 [facility] Comment on above: Performed By: #### C BC #### [facility] [address] [place] [address] Dr. Karen Santos Bilirubin [Mass/Vol] 0.3 mg/dL Normal 0.2-1.3 [facility] Comment on above: Performed By: #### C BC #### [facility] [address] [place] [address] Dr. Karen Santos Calcium [Mass/Vol] 9.3 mg/dL Normal 8.4-10.2 [facility] Comment on above: Performed By: #### C BC #### [facility] [address] [place] [address] Dr. Karen Santos Chloride [Moles/Vol] 103 mmol/L Normal 98-107 [facility] Comment on above: Performed By: #### C BC #### [facility] [address] [place] [address] Dr. Karen Santos CO2 [Moles/Vol] 23.7 mmol/L Normal 22.0-30.0 [facility] Comment on above: Performed By: #### C BC #### [facility] [address] [address] [address] Karen Santos Creatinine [Mass/Vol] 2.16 mg/dL Critically high 0.66-1.25 [facility] Comment on above: Performed By: #### C BC #### [facility] [address] [address] [address] Karen Santos EGFR-AF GUAMANIAN 39 mL/min/1.73m2 Critically low >=60 [facility] Comment on above: Performed By: #### C BC #### [facility] [address] [address] [address] Karen Santos EGFR-NON AF GUAMANIAN 32 mL/min/1.73m2 Critically low >=60 [facility] Comment on above: Performed By: #### C BC #### [facility] [address] [address] [address] Karen Santos Globulin (S) [Mass/Vol] 4.5 g/dL Normal [facility] Comment on above: Performed By: #### C BC #### [facility] [address] [address] [address] Karen Santos Glucose [Mass/Vol] 101 mg/dL Normal 74-106 [facility] Comment on above: Performed By: #### C BC #### [facility] [address] [address] [address] Karen Santos Potassium [Moles/Vol] 3.8 mmol/L Normal 3.4-5.0 [facility] Comment on above: Performed By: #### C BC #### [facility] [address] [address] [address] Karen Santos Protein [Mass/Vol] 8.2 g/dL Normal 6.1-8.2 [facility] Comment on above: Performed By: #### C BC #### [facility] [address] [address] [address] Karen Santos Sodium [Moles/Vol] 137 mmol/L Normal 137-145 [facility] Comment on above: Performed By: #### C BC #### [facility] [address] [address] [address] Karen Santos Urea nitrogen [Mass/Vol] 18.0 mg/dL Normal 9.0-20.0 [facility] Comment on above: Performed By: #### C BC #### [facility] [id number] Karen Santos Urea nitrogen/Creatinine [Mass ratio] 8.3 mg/mg Normal [facility] Comment on above: Performed By: #### C BC #### [facility] [address] [address] [address] Karen Santos TROPONIN, HIGH SENSITIVITYon 09-13-2021 HSTROP 12.1 pg/mL Normal 4.0-42.2 [facility] Comment on above: Result Comment: CUT- OFF POINTS HAVE BEEN ESTABLISHED BASED ON THE FOURTH UNIVERSAL DEFINITIONS OF MYOCARDIAL INFARCTION. THE UPPER REFERENCE LIMIT (URL) OF TROPONIN, DEFINED THE 99TH PERCENTILE OF cTnI DISTRIBUTION IN A REFERENCE POPULATION, HAS BEEN CONFIRMED THE DECISION THRESHOLD FOR [place] DIAGNOSIS. Performed By: #### C BC #### [facility] [address] [address] [address] Karen Santos XR CHEST 1 Von [...] by: SANDRA SINGH Date: 2021-09-13 21:26 Normal [facility] CBC AUTO DIFFon 09-10-2021 BASO # 0.1 103/ul Normal 0.0-0.1 [facility] Comment on above: Performed By: #### C BC #### [facility] [address] [address] [address] Karen Santos Basophils/100 WBC (Bld) 0.7 % Normal 0.2-2.0 [facility] Comment on above: Performed By: #### C BC #### [facility] [address] [address] [address] Karen Santos EO # 0.3 103/ul Normal 0.0-0.7 [facility] Comment on above: Performed By: #### C BC #### [facility] [facility] [address] [address] [address] Karen Santos Eosinophils/100 WBC (Bld) 2.3 % Normal 0.9-7.0 [facility] Comment on above: Performed By: #### C BC #### [facility] [address] [place] [address] Dr. Karen Santos Erythrocyte distribution width (RBC) [Ratio] 14.5 % Normal 11.0-15.0 [facility] Comment on above: Performed By: #### C BC #### [facility] [address] [place] [address] Dr. Karen Santos Hematocrit (Bld) [Volume fraction] 42.8 % Normal 42.0-54.0 [facility] Comment on above: Performed By: #### C BC #### [facility] [address] [place] [address] Dr. Karen Santos Hemoglobin (Bld) [Mass/Vol] 14.5 g/dL Normal 14.0-18.0 [facility] Comment on above: Performed By: #### C BC #### [facility] [address] [place] [address] Dr. Karen Santos IG # 0.06 10e3/ul Critically high 0.00-0.03 [facility] Comment on above: Performed By: #### C BC #### [facility] [address] [place] [address] Dr. Karne Santos IG % 0.6 % Critically high 0.0-0.5 [facility] Comment on above: Performed By: #### C BC #### [facility] [address] [place] [address] Dr. Karen Santos LYMPH # 1.8 103/ul Normal 1.2-3.8 [facility] Comment on above: Performed By: #### C BC #### [facility] [address] [address] [address] Karen Santos Lymphocytes/100 WBC (Bld) 16.5 % Critically low 20.5-60.0 [facility] Comment on above: Performed By: #### C BC #### [facility] [address] [place] [address] Dr. Karen Santos MANUAL DIFF REQ NO Normal [facility] Comment on above: Performed By: #### C BC #### [facility] [address] [place] [address] Dr. Karen Santos MCH (RBC) [Entitic mass] 33.5 pg Normal 25.9-34.0 [facility] Comment on above: Performed By: #### C BC #### [facility] [address] [place] [address] Dr. Karen Santos MCHC (RBC) [Mass/Vol] 33.9 g/dL Normal 29.9-35.2 [facility] Comment on above: Performed By: #### C BC #### [facility] [address] [place] [address] Dr. Karen Santos MCV (RBC) [Entitic vol] 98.8 fL Critically high 80.0-94.0 [facility] Comment on above: Performed By: #### C BC #### [facility] [address] [place] [address] Dr. Karen Santos MONO # 0.6 103/ul Normal 0.3-0.8 [facility] Comment on above: Performed By: #### C BC #### [facility] [address] [place] [address] Dr. Karen Santos Monocytes/100 WBC (Bld) 5.6 % Normal 1.7-12.0 [facility] Comment on above: Performed By: #### C BC #### [facility] [address] [place] [address] Dr. Karen Santos NEUT # 7.9 103/ul Critically high 1.4-6.5 [facility] Comment on above: Performed By: #### C BC #### [facility] [address] [address] [address] Karen Santos Neutrophils/100 WBC (Bld) 74.3 % Normal 43.0-75.0 [facility] Comment on above: Performed By: #### C BC #### [facility] [address] [address] [address] Karen Santos Platelet mean volume (Bld) [Entitic vol] 9.2 fL Critically low 9.5-13.5 [facility] Comment on above: Performed By: #### C BC #### [facility] [address] [address] [address] Karen Santos PLT 348 103/ul Normal 150-450 [facility] Comment on above: Performed By: #### C BC #### [facility] [address] [place] [address] Dr. Karen Santos RBC 4.33 106/ul Critically low 4.70-6.10 [facility] Comment on above: Performed By: #### C BC #### [facility] [address] [address] [address] Karen Santos WBC 10.7 103/ul Normal 4.0-11.0 [facility] Comment on above: Performed By: #### C BC #### [facility] [address] [address] [address] Karen Santos PROF 14(COMP METB)on 021 Albumin [Mass/Vol] 4.2 g/dL Normal 3.5-5.0 [facility] Comment on above: Performed By: #### C MICHAEL HSTROPN, TSH #### [facility] [address] [address] [address] Karen Santos Albumin/Globulin [Mass ratio] 0.8 {ratio} Normal [facility] Comment on above: Performed By: #### C MICHAEL HSTROPN, TSH #### [facility] [address] [address] [address] Karen Santos ALP [Catalytic activity/Vol] 124 U/L Normal 38-126 [facility] Comment on above: Performed By: #### C MP, HSTROPN, TSH #### [facility] [address] [address] [address] Karen Santos ALT [Catalytic activity/Vol] 24 U/L Normal 21-72 [facility] Comment on above: Performed By: #### C MP, HSTROPN, TSH #### [facility] [address] [place] [address] Dr. Karen Santos Anion gap [Moles/Vol] 13.9 mmol/L Normal Th e [facility] Comment on above: Performed By: #### C MP, HSTROPN, TSH #### [facility] [address] [place] [address] Dr. Karen Santos AST [Catalytic activity/Vol] 17 U/L Normal 17-59 [facility] Comment on above: Performed By: #### C MP, HSTROPN, TSH #### [facility] [address] [place] [address] Dr. Karen Santos Bilirubin [Mass/Vol] 0.4 mg/dL Normal 0.2-1.3 [facility] Comment on above: Performed By: #### C MP, HSTROPN, TSH #### [facility] [address] [place] [address] Dr. Karen Santos Calcium [Mass/Vol] 9.5 mg/dL Normal 8.4-10.2 [facility] Comment on above: Performed By: #### C MP, HSTROPN, TSH #### [facility] [address] [place] [address] Dr. Karen Santos Chloride [Moles/Vol] 101 mmol/L Normal 98-107 [facility] Comment on above: Performed By: #### C MP, HSTROPN, TSH #### [facility] [address] [place] [address] Dr. Karen Santos CO2 [Moles/Vol] 26.0 mmol/L Normal 22.0-30.0 [facility] Comment on above: Performed By: #### C MP, HSTROPN, TSH #### [facility] [address] [place] [address] Dr. Karen Santos Creatinine [Mass/Vol] 2.35 mg/dL Critically high 0.66-1.25 [facility] Comment on above: Performed By: #### C MP, HSTROPN, TSH #### [facility] [address] [place] [address] Dr. Karen Santos EGFR-AF GUAMANIAN 35 mL/min/1.73m2 Critically low >=60 [facility] Comment on above: Performed By: #### C MP, HSTROPN, TSH #### [facility] [address] [place] [address] Dr. Karen Santos EGFR-NON AF GUAMANIAN 29 mL/min/1.73m2 Critically low >=60 [facility] Comment on above: Performed By: #### C MP, HSTROPN, TSH #### [facility] [address] [place] [address] Dr. Karen Santos Globulin (S) [Mass/Vol] 5.1 g/dL Normal [facility] Comment on above: Performed By: #### C MP, HSTROPN, TSH #### [facility] [address] [place] [address] Dr. Karen Santos Glucose [Mass/Vol] 105 mg/dL Normal 74-106 [facility] Comment on above: Performed By: #### C MP, HSTROPN, TSH #### [facility] [address] [place] [address] Dr. Karen Santos Potassium [Moles/Vol] 3.9 mmol/L Normal 3.4-5.0 [facility] Comment on above: Performed By: #### C MP, HSTROPN, TSH #### [facility] [address] [place] [address] Dr. Karen Santos Protein [Mass/Vol] 9.3 g/dL Critically high 6.1-8.2 T [facility] Comment on above: Performed By: #### C MP, HSTROPN, TSH #### [facility] [address] [place] [address] Dr. Karen Santos Sodium [Moles/Vol] 137 mmol/L Normal 137-145 [facility] Comment on above: Performed By: #### C KELLEY RODRIGUEZ, TSH #### [facility] [address] [address] [address] Karen Santos Urea nitrogen [Mass/Vol] 17.0 mg/dL Normal 9.0-20.0 [facility] Comment on above: Performed By: #### C KELLEY RODRIGUEZ, TSH #### [facility] [address] [place] [address] Dr. Karen Santos Urea nitrogen/Creatinine [Mass ratio] 7.2 mg/mg Normal [facility] Comment on above: Performed By: #### C KELLEY RODRIGUEZ, TSH #### [facility] [address] [place] [address] Dr. Karen Santos PROTIMEon 09-10-2021 INR Coag (PPP) [Relative time] 0.95 {INR} Normal [facility] Comment on above: Performed By: #### P T, PTT ####[facility] [id number] [address]Dr[address] Karen Santos INR GUIDELINES SEE BELOW Normal [facility] Comment on above: Result Comment: PALAK RED INR: 2.0 - 3.0 CONDITIONS NOT LISTED BELOW 2.5 - 3.5 FOR PROSTHETIC HEART VALVE REPLACEMENT 2.5 - 3.5 RECURRENT THROMBOSIS Performed By: #### P T, PTT ####[facility] [id number] [place], [place] [address]Dr. Karen Santos PT Coag (PPP) [Time] 10.3 s Normal 9.0-11.6 [facility] Comment on above: Performed By: #### P T, PTT ####[facility] [id number] [address]Dr. Karen Santos PTTon 09-10-2021 aPTT Coag (Bld) [Time] 25.4 s Normal 22.3-36.2 Th [facility] Comment on above: Performed By: #### P T, PTT ####[facility] [id number] [place], [place] [address]DcDr. Karen Santos TROPONIN, HIGH SENSITIVITYon 09-10-2021 HSTROP 10.9 pg/mL Normal 4.0-42.2 [facility] Comment on above: Result Comment: CUT- OFF POINTS HAVE BEEN ESTABLISHED BASED ON THE FOURTH UNIVERSAL DEFINITIONS OF MYOCARDIAL INFARCTION. THE UPPER REFERENCE LIMIT (URL) OF TROPONIN, DEFINED THE 99TH PERCENTILE OF cTnI DISTRIBUTION IN A REFERENCE POPULATION, HAS BEEN CONFIRMED THE DECISION THRESHOLD FOR [place] DIAGNOSIS. Performed By: #### C MP, HSTROPN, TSH #### [facility] [address], [place] [address] Dr. Karen Santos TSHon 09-10-2021 TSH 1.298 uIU/mL Normal 0.470-4.680 [facility] Comment on above: Performed By: #### C MP, HSTROPN, TSH #### [facility] [address] [address] [address] Karen Santos TSH RANGE SEE BELOW Normal [facility] Comment on above: Result Comment: <0.3 4 UIU/ml HYPERTHYROID 0.34-5.60 UIU/ml EUTHYROID >5.60 UIU/ml HYPOTHYROID Performed By: #### C MP, HSTROPN, TSH #### [facility] [address] [address] [address] Karen Santos XR CHEST 1 Von [...] by: LUDMILA JOSEPH Date: 2021-09-10 17:42 Normal [facility] Operative Reporton Operative Report MR#: [id number] I [facility] Pt. 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 Normal [facility] BASIC METABOLIC PANELon 10-0 Calcium [Mass/Vol] 8.5 mg/dL Low 8.6-10.3 [facility] Comment on above: Order Comment: No: D o not add to previous draw Performed By: #### 4 1000, 63200, 97278 #### [facility] [address] [place] [address], [place] Chloride [Moles/Vol] 112 mmol/L High 98-107 [facility] Comment on above: Order Comment: No: D o not add to previous draw Performed By: #### 4 1000, 41116, 60427 #### [facility] [address] [place] [address], [place] CO2 [Moles/Vol] 17 mmol/L Low 21-31 [facility] Comment on above: Order Comment: No: D o not add to previous draw Performed By: #### 4 1000, 01394, 13492 #### [facility] [address] [place] [address], [place] Creatinine [Mass/Vol] 1.99 mg/dL High 0.70-1.30 [facility] Comment on above: Order Comment: No: D o not add to previous draw Performed By: #### 4 1000, , 65632 #### [facility] [address] [place] [address], [facility] eGFR- 43 ml/min/1.73sq m Abnormal >60 [facility] Comment on above: Order Comment: No: D o not add to previous draw Performed By: #### 4 1000, , 08461 #### [facility] [address] [place] [address], [place] eGFR- non- 35 ml/min/1.73sq m Abnormal >60 [facility] Comment on above: Order Comment: No: D o not add to previous draw Performed By: #### 4 1000, 50252, 59957 #### [facility] [address] [place] [address], [place] Glucose [Mass/Vol] 106 mg/dL High 70-100 [facility] Comment on above: Order Comment: No: D o not add to previous draw Performed By: #### 4 1000, 74246, 71984 #### [facility] [address] [place] [address], [place] Potassium [Moles/Vol] 4.7 mmol/L Normal 3.5-5.1 [facility] Comment on above: Order Comment: No: D o not add to previous draw Performed By: #### 4 1000, 81049, 62803 #### [facility] [address] [place] [address], [place] Sodium [Moles/Vol] 136 mmol/L Normal 136-145 [facility] Comment on above: Order Comment: No: D o not add to previous draw Performed By: #### 4 1000, 47653, 51298 #### [facility] [address] [place] [address], [place] Urea nitrogen [Mass/Vol] 25 mg/dL Normal 7-25 [facility] Comment on above: Order Comment: No: D o not add to previous draw Performed By: #### 4 1000, 71530, 34982 #### [facility] [address] [place] [address], [facility] CBC COMPLETE BLOOD COUNTon Erythrocyte distribution width (RBC) [Ratio] 14.3 % Normal 11.5-15.0 [facility] Comment on above: Order Comment: No: D o not add to previous draw Performed By: #### 3 0739 #### [facility] [address] [place] [id number], [facility] Hematocrit (Bld) [Volume fraction] 35.0 % Low 39.0-50.0 [facility] Comment on above: Order Comment: No: D o not add to previous draw Performed By: #### 3 0739 #### [facility] [address] [place] [address], [facility] Hemoglobin (Bld) [Mass/Vol] 11.4 g/dL Low 13.0-17.0 [facility] Comment on above: Order Comment: No: D o not add to previous draw Performed By: #### 3 0739 #### [facility] [address] [place] [address], [facility] MCH (RBC) [Entitic mass] 31.1 pg Normal 27.0-33.0 [facility] Comment on above: Order Comment: No: D o not add to previous draw Performed By: #### 3 0739 #### [facility] [address] [place] [address], [facility] MCHC (RBC) [Mass/Vol] 32.6 g/dL Normal 32.0-35.0 [facility] Comment on above: Order Comment: No: D o not add to previous draw Performed By: #### 3 0739 #### [facility] [address] [place] [address], [facility] MCV (RBC) [Entitic vol] 95.6 fL Normal 82.0-98.0 [facility] Comment on above: Order Comment: No: D o not add to previous draw Performed By: #### 3 0739 #### [facility] [address] [facility] [address] Nucleated RBC/100 WBC (Bld) [Ratio] 0 % Normal 0-0 [facility] Comment on above: Order Comment: No: D o not add to previous draw Performed By: #### 3 0739 #### [facility] [address] [facility] [place] [address], [facility] PLAT CNT 212 10*3/uL Normal 150-400 [facility] Comment on above: Order Comment: No: D o not add to previous draw Performed By: #### 3 0739 #### [facility] [address] [facility] [place] [address], [facility] RBC (Bld) [#/Vol] 3.66 10*6/uL Low 4.20-5.70 [facility] Comment on above: Order Comment: No: D o not add to previous draw Performed By: #### 3 0739 #### [facility] [address] [place] [address], [facility] WBC (Bld) [#/Vol] 11.78 10*3/uL High 4.00-10.60 [facility] Comment on above: Order Comment: No: D o not add to previous draw Performed By: #### 3 0739 #### [facility] [address] [place] [address], [facility] MAGNESIUM BLOODon 07-23-2021 Magnesium [Mass/Vol] 1.8 mg/dL Low 1.9-2.7 [facility] Comment on above: Performed By: #### 4 1000, 60073, 46233 #### [facility] [address] [place] [address], [facility] PHOSPHORUS BLOODon Phosphate [Mass/Vol] 3.5 mg/dL Normal 2.5-5.0 [facility] Comment on above: Performed By: #### 4 1000, 75237, 95965 #### [facility] [address] [place] [address], [facility] *MRSA/MSSA DNA NASALon 07-22 *MRSA/MSSA DNA NASAL Clinical Report: (D ) Specimen/Source: NASAL SWAB/NARES Collected: 07/22/2021 07:45 Status: Final Last Updated: 07/22/2021 11:30 MSSA DNA (Final) Negative MRSA DNA (Final) Negative Normal [facility] Comment on above: Performed By: #### 3 0739 #### [facility] [address] [place] [address], [facility] ACTIVATED CLOTTING TIMEon ACTIVATED CLOTTING TIME 207 sec High 82-152 [facility] Comment on above: Performed By: #### 3 0739 #### [facility] [address] [place] [address], [facility] ACTIVATED CLOTTING TIME 243 sec High 82-152 [facility] Comment on above: Performed By: #### 3 0739 #### [facility] [address] [place] [address], [place] ACTIVATED CLOTTING TIME 98 sec Normal 82-152 [facility] Comment on above: Performed By: #### 3 0739 #### [facility] [address] [place] [address], [place] ACTIVATED CLOTTING TIME 189 sec High 82-152 [facility] Comment on above: Performed By: #### 3 0739 #### [facility] [address] [place] [address], [place] BASIC METABOLIC PANELon 10-0 -2020 Calcium [Mass/Vol] 8.8 mg/dL Normal 8.6-10.3 [facility] Comment on above: Order Comment: No: D o not add to previous draw Nurse draw Performed By: #### 4 1000, , 45224 #### [facility] [address] [place] [address], [place] Chloride [Moles/Vol] 111 mmol/L High 98-107 [facility] Comment on above: Order Comment: No: D o not add to previous draw Nurse draw Performed By: #### 4 1000, , 21689 #### [facility] [address] [place] [address], [place] CO2 [Moles/Vol] 18 mmol/L Low 21-31 [facility] Comment on above: Order Comment: No: D o not add to previous draw Nurse draw Performed By: #### 4 1000, 17465, 02208 #### [facility] [address] [place] [address], [place] Creatinine [Mass/Vol] 2.23 mg/dL High 0.70-1.30 [facility] Comment on above: Order Comment: No: D o not add to previous draw Nurse draw Performed By: #### 4 1000, , 02406 #### [facility] [address] [place] [address], [facility] eGFR- 38 ml/min/1.73sq m Abnormal >60 [facility] Comment on above: Order Comment: No: D o not add to previous draw Nurse draw Performed By: #### 4 1000, 35822, 56578 #### [facility] [address] [place] [address], [facility] eGFR- non- 31 ml/min/1.73sq m Abnormal >60 [facility] Comment on above: Order Comment: No: D o not add to previous draw Nurse draw Performed By: #### 4 1000, 52493, 24349 #### [facility] [address] [place] [address], [place] Glucose [Mass/Vol] 102 mg/dL High 70-100 [facility] Comment on above: Order Comment: No: D o not add to previous draw Nurse draw Performed By: #### 4 1000, , 36650 #### [facility] [address] [place] [address], [place] Potassium [Moles/Vol] 4.8 mmol/L Normal 3.5-5.1 [facility] Comment on above: Order Comment: No: D o not add to previous draw Nurse draw Performed By: #### 4 1000, , 92597 #### [facility] [address] [place] [address], [place] Sodium [Moles/Vol] 135 mmol/L Low 136-145 [facility] Comment on above: Order Comment: No: D o not add to previous draw Nurse draw Performed By: #### 4 1000, 10972, 50483 #### [facility] [address] [place] [address], [place] Urea nitrogen [Mass/Vol] 28 mg/dL High 7-25 [facility] Comment on above: Order Comment: No: D o not add to previous draw Nurse draw Performed By: #### 4 1000, , 55164 #### [facility] [address] CBC COMPLETE BLOOD COUNTon Erythrocyte distribution width (RBC) [Ratio] 14.5 % Normal 11.5-15.0 [facility] Comment on above: Order Comment: No: D o not add to previous drawNurse draw Performed By: #### 3 0739 #### [facility] [address] [place] [address], [facility] Hematocrit (Bld) [Volume fraction] 38.1 % Low 39.0-50.0 [facility] Comment on above: Order Comment: No: D o not add to previous drawNurse draw Performed By: #### 3 0739 #### [facility] [address] [place] [address], [facility] Hemoglobin (Bld) [Mass/Vol] 12.9 g/dL Low 13.0-17.0 [facility] Comment on above: Order Comment: No: D o not add to previous drawNurse draw Performed By: #### 3 0739 #### [facility] [address] [place] [address], [facility] (RBC) [Entitic mass] 31.2 pg Normal 27.0-33.0 [facility] Comment on above: Order Comment: No: D o not add to previous drawNurse draw Performed By: #### 3 0739 #### [facility] [address] [place] [address], [facility] MCHC (RBC) [Mass/Vol] 33.9 g/dL Normal 32.0-35.0 [facility] Comment on above: Order Comment: No: D o not add to previous drawNurse draw Performed By: #### 3 0739 #### [facility] [address] [place] [address], [facility] MCV (RBC) [Entitic vol] 92.3 fL Normal 82.0-98.0 [facility] Comment on above: Order Comment: No: D o not add to previous drawNurse draw Performed By: #### 3 0739 #### [facility] [address] [place] [address], [facility] Nucleated RBC/100 WBC (Bld) [Ratio] 0 % Normal 0-0 [facility] Comment on above: Order Comment: No: D o not add to previous drawNurse draw Performed By: #### 3 0739 #### [facility] [address] [place] [address], [facility] PLAT CNT 232 10*3/uL Normal 150-400 [facility] Comment on above: Order Comment: No: D o not add to previous drawNurse draw Performed By: #### 3 0739 #### [facility] [address] [facility] [place] [address], [facility] RBC (Bld) [#/Vol] 4.13 10*6/uL Low 4.20-5.70 [facility] Comment on above: Order Comment: No: D o not add to previous drawNurse draw Performed By: #### 3 0739 #### [facility] [address] [place] [address], [facility] WBC (Bld) [#/Vol] 17.03 10*3/uL High 4.00-10.60 [facility] Comment on above: Order Comment: No: D o not add to previous drawNurse draw Performed By: #### 3 0739 #### [facility] [address] [place] [address], [facility] MAGNESIUM BLOODon 07-22-2021 Magnesium [Mass/Vol] 1.9 mg/dL Normal 1.9-2.7 [facility] Comment on above: Order Comment: No: D o not add to previous draw Nurse draw Performed By: #### 4 1000, [id number], [id number] #### [facility] [address] [place] [address], [facility] PHOSPHORUS BLOODon Phosphate [Mass/Vol] 2.8 mg/dL Normal 2.5-5.0 [facility] Comment on above: Order Comment: No: D o not add to previous draw Nurse draw Performed By: #### 4 1000, [id number], [id number] #### [facility] [address] [place] [address], [facility] POC GLUCOSE LABon 07-22-2021 Glucose [Mass/Vol] 103 mg/dL High 70-100 [facility] Comment on above: Performed By: #### 3 0739 #### [facility] [address] [place] [address], [facility] Glucose [Mass/Vol] 98 mg/dL Normal 70-100 [facility] Comment on above: Performed By: #### 3 0739 #### [facility] [address] [place] [address], [facility] TYPE AND SCREENon 07-22-2021 ABO INTERPRETATION O Normal [facility] Comment on above: Performed By: #### 3 0739 #### [facility] [address] [place] [address], [facility] RH INTERPRETATION Positive Normal [facility] Comment on above: Performed By: #### 3 0739 #### [facility] [address] [place] [address], [facility] Office Visit (Vascular Surge ry)on 07-13-2021 Follow-up visit Diagnoses/Problems Assessed Acute stroke due to stenosis of left carotid artery (433.11) (I63.232) Patient Discussion/Summary By signing my name below, I, Keyonna Lenz, attest that this documentation has been prepared under the direction and in the presence of Dr. Pablo Serrano. All medical record entries made by the Mellisaibe were at my direction and personally dictated [...] DAY Vitals Vital Signs Recorded: 13Jul2021 11:13AM Qfjshfcyccr75.4 F Heart Rate60 [id number] Wvhvtkkta99 Height5 ft 11 in Khiseb055 lb BMI Fcxseganjt01.68 kg/m2 BSA Calculated2.2 Tobacco Usea) Yes Patient encouraged to stop using tobacco productsYes Fall Screeninga) No falls within the last year O2 [id number] Physical Exam Face symmetric EOMI Tongue midline, [...] Jul 13 2021 4:48PM EST (Author) Normal [employer] Tobacco Screening.on 021 Fall risk assessment a) No falls within the last year [employer] Work Phone: Tobacco use status [facility] a) Yes [employer] Work Phone: Tobacco Screening. Yes [employer] Work Phone: CBC With Platelet and Differ entialon 09-12-2017 Basophils Auto #/vol (Bld) 0.1 10*3/uL Normal 0.0-0.2 [facility] Basophils/100 WBC Auto (Bld) 0.5 % Normal [facility] Eosinophils 0.2 10*3/uL Normal 0.0-0.7 [facility] Eosinophils/100 leukocytes 1.3 % Normal [facility] Erythrocyte distribution width Auto Ratio (RBC) 13.0 % Normal 11.5-14.5 [facility] Erythrocytes (RBC) 5.29 10*6/uL Normal 4.70-6.10 [facility] Hematocrit (HCT) 49.9 % Normal 42.0-52.0 [facility] Hemoglobin mass conc (Bld) 16.5 g/dL Normal 14.0-18.0 [facility] Lymphocytes 3.4 10*3/uL Normal 1.0-4.8 [facility] Lymphocytes/100 leukocytes 28.7 % Normal [facility] MCH 31.1 pg Normal 27.0-31.3 [facility] MCHC mass conc (RBC) 33.0 % Normal 33.0-37.0 [facility] MCV 94.4 fL Normal 80.0-100.0 [facility] Monocytes 0.9 10*3/uL Critically high 0.2-0.8 [facility] Monocytes/100 leukocytes 7.3 % Normal [facility] Neutrophils 7.5 10*3/uL Critically high 1.4-6.5 [facility] Neutrophils/100 leukocytes 62.2 % Normal [facility] Platelets 326 10*3/uL Normal 130-400 [facility] WBC (Leukocytes) 12.0 10*3/uL Critically high 4.8-10.8 [facility] Comprehensive Metabolic Pane fletcher 09-12-2017 Alanine aminotransferase (ALT) 21 U/L Normal 0-41 [facility] Albumin 4.5 g/dL Normal 3.9-4.9 [facility] Alkaline phosphatase (ALP) 82 U/L Normal 35-104 [facility] Anion gap 12 mmol/L Normal 7-13 [facility] Aspartate aminotransferase (AST) 14 U/L Normal 0-40 [facility] Bilirubin (total) 0.3 mg/dL Normal 0.0-1.2 [facility] Calcium 9.8 mg/dL Normal 8.6-10.2 [facility] Chloride 99 mmol/L Normal 98-107 [facility] CO2 26 mmol/L Normal 22-29 [facility] Creatinine 0.97 mg/dL Normal 0.70-1.20 [facility] eGFR (black) mL/min/{1.73_m2} Normal >60 [facility] Comment on above: Result Comment: >60 mL/min/1.73m2 EGFR, calc. for ages 18 and older using theMDRD formula (not corrected for weight), is valid for stablerenal function. eGFR (MDRD) mL/min/{1.73_m2} Normal >60 [facility] Comment on above: Result Comment: >60 mL/min/1.73m2 EGFR, calc. for ages 18 and older using theMDRD formula (not corrected for weight), is valid for stablerenal function. Globulin 3.0 g/dL Normal 2.3-3.5 [facility] Glucose mass conc 91 mg/dL Normal 74-109 [facility] Potassium molar conc 4.3 mmol/L Normal 3.5-5.1 [facility] Protein 7.5 g/dL Normal 6.4-8.1 [facility] Sodium 137 mmol/L Normal 132-144 [facility] Urea nitrogen 11 mg/dL Normal 6-20 [facility] TSH w/out Reflexon 7 Thyroid stimulating hormone (TSH) 8.830 uIU/mL Critically high 0.270-4.20 [facility] Vital Signs Date Time Vital Sign Value Performing Clinician Facility 02-26-2025 13:04-0400 Body temperature 98 [degF] Shantell Zavalaault [employer] Work Phone: [facility] 02-26-2025 13:04-0400 Diastolic blood pressure 80 mm[Hg] Shantell Sea [employer] Work Phone: [facility] 02-26-2025 13:04-0400 Heart rate 93 /min Shantell Sea [employer] Work Phone: [facility] 02-26-2025 13:04-0400 Inhaled oxygen concentration 45 % Shantell Sea [employer] Work Phone: [facility] 02-26-2025 13:04-0400 Respiratory rate 20 /min Shantell Sea [employer] Work Phone: [facility] 02-26-2025 13:04-0400 SaO2% (BldA) [Mass fraction] 99 % Shantell Osei [employer] Work Phone: [facility] 02-26-2025 13:04-0400 Systolic blood pressure 141 mm[Hg] Shantell Osei [employer] Work Phone: [facility] 02-26-2025 06:00-0400 Body weight 86.1 kg Shantell Osei [employer] Work Phone: [phone] [place] [address] 02-25-2025 15:59-0400 Body height 180.34 cm Shantell Osei [employer] Work Phone: [facility] 02-25-2025 11:00-0400 Inhaled oxygen flow rate 2 L/min Shantell Osei [employer] Work Phone: [facility] 02-23-2025 11:10-0400 Body temperature 98.2 [degF] Shantell Osei [employer] Work Phone: [facility] 02-23-2025 11:10-0400 Diastolic blood pressure 88 mm[Hg] Shantell Osei [employer] Work Phone: [facility] 02-23-2025 11:10-0400 Heart rate 82 /min Shantell Osei [employer] Work Phone: [facility] 02-23-2025 11:10-0400 Respiratory rate 16 /min Shantell Osei [employer] Work Phone: [facility] 02-23-2025 11:10-0400 SaO2% (BldA) [Mass fraction] 98 % Shantell Osei [employer] Work Phone: [facility] 02-23-2025 11:10-0400 Systolic blood pressure 138 mm[Hg] Shantell Osei [employer] Work Phone: [facility] 02-05-2025 16:31-0400 Diastolic blood pressure 94 mm[Hg] PHYSICIAN NO [facility] 02-05-2025 16:31-0400 Heart rate 90 /min PHYSICIAN NO [facility] 02-05-2025 16:31-0400 Respiratory rate 16 /min PHYSICIAN NO [facility] 02-05-2025 16:31-0400 SaO2% (BldA) [Mass fraction] 97 % PHYSICIAN NO [facility] 02-05-2025 16:31-0400 Systolic blood pressure 162 mm[Hg] PHYSICIAN NO [facility] 02-05-2025 16:00-0400 Inhaled oxygen flow rate 1 L/min PHYSICIAN NO [facility] 02-05-2025 13:12-0400 Body height 180.34 cm PHYSICIAN NO [facility] 02-05-2025 13:12-0400 Body weight 90.71 kg PHYSICIAN NO [facility] 02-03-2025 11:39-0400 Body temperature 98.01 [degF] Darby Sanches [employer] Work Phone: [facility] 02-03-2025 11:39-0400 Diastolic blood pressure 50 mm[Hg] Darby Sanches [employer]ASHER [employer] Work Phone: [facility] 02-03-2025 11:39-0400 Heart rate 140 /min Darby Sanches [employer] Work Phone: [facility] 02-03-2025 11:39-0400 Systolic blood pressure 90 mm[Hg] Darby Sanches WASHER MACHINE Work Phone: [facility] 02-03-2025 11:34-0400 Body weight 87 kg Darby Sanches [employer] Work Phone: [facility] 04-27-2024 11:00-0400 Diastolic blood pressure 97 mm[Hg] Maurice Willis MD Work Phone: [facility] 04-27-2024 11:00-0400 Heart rate 78 /min Maurice Willis MD Work Phone: [facility] 04-27-2024 11:00-0400 Respiratory rate 16 /min Maurice Willis MD Work Phone: [facility] 04-27-2024 11:00-0400 SaO2% (BldA) [Mass fraction] 98 % Maurice Willis MD Work Phone: [facility] 04-27-2024 11:00-0400 Systolic blood pressure 159 mm[Hg] Maurice Willis MD Work Phone: [facility] 04-27-2024 08:00-0400 Body temperature 98.01 [degF] Maurice Willis MD Work Phone: [facility] 04-26-2024 18:30-0400 Body mass index (BMI) [Ratio] 26.6 kg/m2 Maurice Willis MD Work Phone: [facility] 04-26-2024 18:30-0400 Body weight 86.5 kg Maurice Willis MD Work Phone: [facility] 04-26-2024 11:15-0400 Body height 180.3 cm Maurice Willis MD Work Phone: [facility] 01-09-2024 12:00-0400 Body temperature 98 [degF] [employer] 01-09-2024 12:00-0400 Diastolic blood pressure 79 mm[Hg] [employer] 01-09-2024 12:00-0400 Heart rate 72 /min [employer] 01-09-2024 12:00-0400 Respiratory rate 22 /min [employer] 01-09-2024 12:00-0400 SaO2% (BldA) [Mass fraction] 100 % [employer] 01-09-2024 12:00-0400 Systolic blood pressure 159 mm[Hg] [employer] 01-09-2024 10:00-0400 Inhaled oxygen flow rate 2 L/min [facility] 01-09-2024 05:31-0400 Body weight 91.6 kg [employer] 01-09-2024 05:19-0400 Inhaled oxygen concentration 30 % [facility] 01-08-2024 20:52-0400 Body height 180.[address] [facility] 11-14-2023 14:00-0500 Body height 180.34 cm Live Nguyen Other [facility] 11-14-2023 14:00-0500 Body mass index (BMI) [Ratio] 27.89 kg/m2 Live Nguyen Other [facility] Other 11-14-2023 14:00-0500 Body temperature 98.4 [degF] Live Nguyen Other [facility] Other 11-14-2023 14:00-0500 Body weight 90.72 kg Live Nguyen Other [facility] Other 11-14-2023 14:00-0500 Body weight 90.[address] [facility] 11-14-2023 14:00-0500 Diastolic blood pressure 67 mm[Hg] Live Nguyen Other [facility] 11-14-2023 14:00-0500 Systolic blood pressure 123 mm[Hg] Live Nguyen Other [facility] 06-11-2023 12:22-0400 Body height 180.34 cm [facility] 06-11-2023 12:22-0400 Body weight 90.71 kg [facility] 06-11-2023 12:22-0400 Diastolic blood pressure 80 mm[Hg] [facility] 06-11-2023 12:22-0400 Heart rate 97 /min [facility] 06-11-2023 12:22-0400 Respiratory rate 16 /min [facility] 06-11-2023 12:22-0400 SaO2% (BldA) [Mass fraction] 96 % [facility] 06-11-2023 12:22-0400 Systolic blood pressure 148 mm[Hg] [facility] 05-22-2023 16:23-0400 Body temperature 98 [degF] [facility] 05-22-2023 16:23-0400 Diastolic blood pressure 79 mm[Hg] [facility] 05-22-2023 16:23-0400 Heart rate 92 /min [facility] 05-22-2023 16:23-0400 Respiratory rate 18 /min [facility] 05-22-2023 16:23-0400 SaO2% (BldA) [Mass fraction] 95 % [facility] 05-22-2023 16:23-0400 Systolic blood pressure 151 mm[Hg] [facility] 05-22-2023 04:00-0400 Inhaled oxygen flow rate 2 L/min [facility] 05-22-2023 02:04-0400 Body height 180.34 cm [facility] 05-22-2023 02:04-0400 Body weight 97.2 kg [facility] 05-15-2023 17:30-0400 Body height 180.34 cm Donya Mccann Other [facility] Other 05-15-2023 17:30-0400 Body mass index (BMI) [Ratio] 29.7 kg/m2 Donya Mccann Other [facility] Other 05-15-2023 17:30-0400 Body temperature 99.3 [degF] Donya Mccann Other [facility] Other 05-15-2023 17:30-0400 Body weight 96.62 kg Donya Mccann Other [facility] Other 05-15-2023 17:30-0400 Diastolic blood pressure 75 mm[Hg] Donya Mccann Other [facility] Other 05-15-2023 17:30-0400 Respiratory rate 18 /min Donya Mccann Other [facility] Other 05-15-2023 17:30-0400 SaO2% (BldA) [Mass fraction] 99 % Donya Mccann Other [facility] Other 05-15-2023 17:30-0400 Systolic blood pressure 155 mm[Hg] Donya Mccann Other [facility] Other 11-30-2022 11:30-0500 Body height 180.34 cm Shantell Osei Other [facility] Other 11-30-2022 11:30-0500 Body mass index (BMI) [Ratio] 29.98 kg/m2 Shantell Osei Other [facility] Other 11-30-2022 11:30-0500 Body temperature 99.1 [degF] Shantell Osei Other [facility] Other 11-30-2022 11:30-0500 Body weight 97.52 kg Shantell Osei Other [facility] Other 11-30-2022 11:30-0500 Diastolic blood pressure 68 mm[Hg] Shantell Osei Other [facility] Other 11-30-2022 11:30-0500 Respiratory rate 18 /min Shantell Osei Other [facility] Other 11-30-2022 11:30-0500 SaO2% (BldA) [Mass fraction] 95 % Shantell Osei Other [facility] Other 11-30-2022 11:30-0500 Systolic blood pressure 133 mm[Hg] Shantell Osei Other [facility] Other 09-27-2022 11:00-0500 Body height 180.34 cm Patrice Levine Other [facility] Other 09-27-2022 11:00-0500 Body mass index (BMI) [Ratio] 28.59 kg/m2 Patrice Levine Other [facility] Other 09-27-2022 11:00-0500 Body temperature 98.1 [degF] Patrice Levine Other [facility] Other 09-27-2022 11:00-0500 Body weight 92.99 kg Patrice Levine Other [facility] Other 09-27-2022 11:00-0500 Diastolic blood pressure 72 mm[Hg] Patrice Reyescasper Other [facility] Other 09-27-2022 11:00-0500 SaO2% (BldA) [Mass fraction] 96 % Patrice Reyescasper Other [facility] Other 09-27-2022 11:00-0500 Systolic blood pressure 142 mm[Hg] Patrice Reyescasper Other [facility] Other 09-13-2022 10:00-0500 Body height 180.34 cm Raissa Adriano Other [facility] Other 09-13-2022 10:00-0500 Body mass index (BMI) [Ratio] 28.59 kg/m2 Raissa Oh Other [facility] Other 09-13-2022 10:00-0500 Body temperature 97.6 [degF] Raissa Adriano Other [facility] Other 09-13-2022 10:00-0500 Body weight 92.99 kg Raissa Adriano Other [facility] Other 09-13-2022 10:00-0500 Diastolic blood pressure 68 mm[Hg] Raissa Oh Other [facility] Other 09-13-2022 10:00-0500 SaO2% (BldA) [Mass fraction] 94 % Raissa Oh Other [facility] Other 09-13-2022 10:00-0500 Systolic blood pressure 120 mm[Hg] Raissa Oh Other [facility] Other 08-24-2022 10:30-0500 Diastolic blood pressure 60 mm[Hg] [employer] Shantell Sea Work Phone: [facility] 08-24-2022 10:30-0500 Heart rate 67 /min [employer] Shantell Sea Work Phone: [facility] 08-24-2022 10:30-0500 Respiratory rate 16 /min [employer] Shantell Sea Work Phone: [facility] 08-24-2022 10:30-0500 SaO2% (BldA) [Mass fraction] 94 % [employer] Shantell Sea Work Phone: [facility] 08-24-2022 10:30-0500 Systolic blood pressure 101 mm[Hg] [employer] Shantell Sea Work Phone: [facility] 08-24-2022 10:15-0500 Inhaled oxygen flow rate 4 L/min [employer] Shantell Sea Work Phone: [facility] 08-24-2022 07:32-0500 Body height 180.34 cm [employer] Shantell Sea Work Phone: [facility] 08-24-2022 07:32-0500 Body mass index (BMI) [Ratio] 29.2 kg/m2 [employer] Shantell Sea Work Phone: [facility] 08-24-2022 07:32-0500 Body weight 95.25 kg [employer] Shantell Sea Work Phone: [facility] 08-24-2022 06:57-0500 Body temperature 98.3 [degF] [employer] Shantell Sea Work Phone: [facility] 08-01-2022 10:30-0400 Body height 180.34 cm Gerber Short Other [facility] Other 08-01-2022 10:30-0400 Body mass index (BMI) [Ratio] 28.59 kg/m2 Gerber Short Other [facility] Other 08-01-2022 10:30-0400 Body temperature 98.2 [degF] Gerber Short Other [facility] Other 08-01-2022 10:30-0400 Body weight 92.99 kg Gerber Buskip Other [facility] Other 08-01-2022 10:30-0400 Diastolic blood pressure 62 mm[Hg] Gerber Short Other [facility] Other 08-01-2022 10:30-0400 SaO2% (BldA) [Mass fraction] 97 % Gerber Short Other [facility] Other 08-01-2022 10:30-0400 Systolic blood pressure 122 mm[Hg] Gerber Short Other [facility] Other 07-11-2022 14:25-0400 Body height 180.34 cm [employer] Shantell Zavalaault Work Phone: [facility] 07-11-2022 14:25-0400 Body mass index (BMI) [Ratio] 28.5 kg/m2 [employer] Shantell Sea Work Phone: [facility] 07-11-2022 14:25-0400 Body weight 92.98 kg [employer] Shantell Sea Work Phone: [facility] 07-11-2022 10:14-0400 Diastolic blood pressure 87 mm[Hg] [employer] Shantell Sea Work Phone: [facility] 07-11-2022 10:14-0400 Heart rate 82 /min [employer] Shantell Sea Work Phone: [facility] 07-11-2022 10:14-0400 Respiratory rate 14 /min [employer] Shantell Sea Work Phone: [facility] 07-11-2022 10:14-0400 SaO2% (BldA) [Mass fraction] 91 % [employer] Shantell Sea Work Phone: [facility] 07-11-2022 10:14-0400 Systolic blood pressure 152 mm[Hg] [employer] Shantell Sea Work Phone: [facility] 07-11-2022 08:08-0400 Inhaled oxygen flow rate 2 L/min [employer] Shantell Sea Work Phone: [facility] 07-11-2022 06:10-0400 Body height 180.34 cm [employer] Shantell Sea Work Phone: [facility] 07-11-2022 06:10-0400 Body temperature 98.7 [degF] [employer] Shantell Sea Work Phone: [facility] 07-11-2022 06:10-0400 Body weight 92.98 kg [employer] Shantell Sea Work Phone: [facility] 06-29-2022 10:30-0400 Body height 180.34 cm Patrice Levine Other [facility] Other 06-29-2022 10:30-0400 Body mass index (BMI) [Ratio] 28.59 kg/m2 Patrice Levine Other [facility] Other 06-29-2022 10:30-0400 Body temperature 97 [degF] Patrice Reyescasper Other [facility] Other 06-29-2022 10:30-0400 Body weight 92.99 kg Patrice Reyescasper Other [facility] Other 06-29-2022 10:30-0400 Diastolic blood pressure 68 mm[Hg] Patrice Julianna Other [facility] Other 06-29-2022 10:30-0400 SaO2% (BldA) [Mass fraction] 99 % Patrice Reyescasper Other [facility] Other 06-29-2022 10:30-0400 Systolic blood pressure 118 mm[Hg] Patrice Julianna Other [facility] Other 06-07-2022 15:50-0400 Body height 180.34 cm Monica Alexus Other [facility] Other 06-07-2022 15:50-0400 Body mass index (BMI) [Ratio] 28.59 kg/m2 Monica Alexus Other [facility] Other 06-07-2022 15:50-0400 Body temperature 97.5 [degF] Monica Catalanmond Other [facility] Other 06-07-2022 15:50-0400 Body weight 92.99 kg Monica Catalanmond Other [facility] Other 06-07-2022 15:50-0400 Diastolic blood pressure 43 mm[Hg] Monica Alexus Other [facility] Other 06-07-2022 15:50-0400 Respiratory rate 18 /min Monica Vaughan Other [facility] Other 06-07-2022 15:50-0400 SaO2% (BldA) [Mass fraction] 97 % Monica Vaughan Other [facility] Other 06-07-2022 15:50-0400 Systolic blood pressure 90 mm[Hg] Monica Vaughan Other [facility] Other 03-09-2022 11:00-0400 Body height 180.34 cm Patrice Levine Other [facility] Other 03-09-2022 11:00-0400 Body mass index (BMI) [Ratio] 29.56 kg/m2 Patrice Levine Other [facility] Other 03-09-2022 11:00-0400 Body weight 96.16 kg Patrice Levine Other [facility] Other 03-09-2022 11:00-0400 Diastolic blood pressure 76 mm[Hg] Patrice Levine Other [facility] Other 03-09-2022 11:00-0400 Respiratory rate 18 /min Patrice Levine Other [facility] Other 03-09-2022 11:00-0400 SaO2% (BldA) [Mass fraction] 95 % Patrice Levine Other [facility] Other 03-09-2022 11:00-0400 Systolic blood pressure 138 mm[Hg] Patrice Levine Other [facility] Other 02-23-2022 14:30-0400 Body height 180.34 cm Shantell Osei Other [facility] Other 02-23-2022 14:30-0400 Body mass index (BMI) [Ratio] 29.56 kg/m2 Shantell Osei Other [facility] Other 02-23-2022 14:30-0400 Body temperature 98.8 [degF] Shantell Osei Other [facility] Other 02-23-2022 14:30-0400 Body weight 96.16 kg Shantell Osei Other [facility] Other 02-23-2022 14:30-0400 Diastolic blood pressure 92 mm[Hg] Shantell Osei Other [facility] Other 02-23-2022 14:30-0400 Respiratory rate 18 /min Shantell Osei Other [facility] Other 02-23-2022 14:30-0400 SaO2% (BldA) [Mass fraction] 98 % Shantell Osei Other [facility] Other 02-23-2022 14:30-0400 Systolic blood pressure 164 mm[Hg] Shantell Osei Other [facility] Other 02-07-2022 17:40-0400 Body height 180.34 cm Iván Govea Other [facility] Other 02-07-2022 17:40-0400 Body mass index (BMI) [Ratio] 30.07 kg/m2 Iván Schumachers Other [facility] Other 02-07-2022 17:40-0400 Body temperature 97.6 [degF] Iván Schumachers Other [facility] Other 02-07-2022 17:40-0400 Body weight 97.8 kg Iván Schumachers Other [facility] Other 02-07-2022 17:40-0400 Diastolic blood pressure 91 mm[Hg] Iván Schumachers Other [facility] Other 02-07-2022 17:40-0400 Respiratory rate 18 /min Iván Govea Other [facility] Other 02-07-2022 17:40-0400 SaO2% (BldA) [Mass fraction] 98 % Iván Govea Other [facility] Other 02-07-2022 17:40-0400 Systolic blood pressure 158 mm[Hg] Iván Govea Other [facility] Other 01-04-2022 10:30-0400 Body height 180.34 cm Patrice Levine Other [facility] Other 01-04-2022 10:30-0400 Body mass index (BMI) [Ratio] 31.24 kg/m2 Patrice Levine Other [facility] Other 01-04-2022 10:30-0400 Body temperature 98.3 [degF] Patrice Levine Other [facility] Other 01-04-2022 10:30-0400 Body weight 101.61 kg Patrice Reyescasper Other [facility] Other 01-04-2022 10:30-0400 Diastolic blood pressure 88 mm[Hg] Patrice Julianna Other [facility] Other 01-04-2022 10:30-0400 SaO2% (BldA) [Mass fraction] 96 % Patrice Reyescasper Other [facility] Other 01-04-2022 10:30-0400 Systolic blood pressure 198 mm[Hg] Patrice Julianna Other [facility] Other 12-15-2021 16:00-0500 Body height 180.34 cm Junior Maria Esther Other [facility] Other 12-15-2021 16:00-0500 Body mass index (BMI) [Ratio] 31.24 kg/m2 Junior Maria Esther Other [facility] Other 12-15-2021 16:00-0500 Body weight 101.61 kg Junior Maria Esther Other [facility] Other 12-15-2021 16:00-0500 Diastolic blood pressure 80 mm[Hg] Junior Maria Esther Other [facility] Other 12-15-2021 16:00-0500 Respiratory rate 18 /min Junior Maria Esther Other [facility] Other 12-15-2021 16:00-0500 SaO2% (BldA) [Mass fraction] 97 % Junior Maria Esther Other [facility] Other 12-15-2021 16:00-0500 Systolic blood pressure 142 mm[Hg] Junior Maria Esther Other [facility] Other 09-15-2021 11:20-0500 Body height 180.34 cm Junior Maria Esther Other [facility] Other 09-15-2021 11:20-0500 Body mass index (BMI) [Ratio] 30.79 kg/m2 Junior Maria Esther Other [facility] Other 09-15-2021 11:20-0500 Body temperature 98 [degF] Junior Maria Esther Other [facility] Other 09-15-2021 11:20-0500 Body weight 100.15 kg Junior Maria Esther Other [facility] Other 09-15-2021 11:20-0500 Diastolic blood pressure 94 mm[Hg] Junior Maria Esther Other [facility] Other 09-15-2021 11:20-0500 Respiratory rate 18 /min Junior Maria Esther Other [facility] Other 09-15-2021 11:20-0500 SaO2% (BldA) [Mass fraction] 97 % Junior Maria Esther Other [facility] Other 09-15-2021 11:20-0500 Systolic blood pressure 200 mm[Hg] Junior Maria Esther Other [facility] Other 08-18-2021 11:00-0400 Body height 180.34 cm Junior Maria Esther Other [facility] Other 08-18-2021 11:00-0400 Body mass index (BMI) [Ratio] 30.51 kg/m2 Junior Maria Esther Other [facility] Other 08-18-2021 11:00-0400 Body temperature 97.4 [degF] Junior Maria Esther Other [facility] Other 08-18-2021 11:00-0400 Body weight 99.25 kg Junior Maria Esther Other [facility] Other 08-18-2021 11:00-0400 Diastolic blood pressure 80 mm[Hg] Junior Maria Esther Other [facility] Other 08-18-2021 11:00-0400 Respiratory rate 18 /min Junior Maria Esther Other [facility] Other 08-18-2021 11:00-0400 SaO2% (BldA) [Mass fraction] 97 % Junior Maria Esther Other [facility] Other 08-18-2021 11:00-0400 Systolic blood pressure 139 mm[Hg] Junior Maria Esther Other [facility] Other 07-28-2021 12:00-0400 Body height 180.34 cm Shantell Osei Other [facility] Other 07-28-2021 12:00-0400 Body mass index (BMI) [Ratio] 30.4 kg/m2 Shantell Osei Other [facility] Other 07-28-2021 12:00-0400 Body temperature 97.8 [degF] Shantell Osei Other [facility] Other 07-28-2021 12:00-0400 Body weight 98.88 kg Shantell Osei Other [facility] Other 07-28-2021 12:00-0400 Diastolic blood pressure 67 mm[Hg] Shantell Osei Other [facility] Other 07-28-2021 12:00-0400 Respiratory rate 18 /min Shantell Osei Other [facility] Other 07-28-2021 12:00-0400 SaO2% (BldA) [Mass fraction] 99 % Shantell Osei Other [facility] Other 07-28-2021 12:00-0400 Systolic blood pressure 133 mm[Hg] Shantell Osei Other [facility] Other 07-21-2021 15:20-0400 Body height 180.34 cm Junior Maria Esther Other [facility] Other 07-21-2021 15:20-0400 Body mass index (BMI) [Ratio] 30.99 kg/m2 Junior Maria Esther Other [facility] Other 07-21-2021 15:20-0400 Body temperature 97.3 [degF] Junior Maria Esther Other [facility] Other 07-21-2021 15:20-0400 Body weight 100.79 kg Junior Maria Esther Other [facility] Other 07-21-2021 15:20-0400 Diastolic blood pressure 82 mm[Hg] Junior Maria Esther Other [facility] Other 07-21-2021 15:20-0400 Respiratory rate 18 /min Junior Maria Esther Other [facility] Other 07-21-2021 15:20-0400 SaO2% (BldA) [Mass fraction] 97 % Junior Maria Esther Other [facility] Other 07-21-2021 15:20-0400 Systolic blood pressure 172 mm[Hg] Junior Maria Esther Other [facility] Other 07-13-2021 11:13-0400 Body height 180.34 cm Ace Marr Work Phone: TZ-Wsszsmbndv-Igaoqk ke [address] Work Phone: 07-13-2021 11:13-0400 Body mass index (BMI) [Ratio] 30.68 kg/m2 Ace Marr Work Phone: FQ-Ludrbujmmu-Ojlqgf [address] Work Phone: 07-13-2021 11:13-0400 Body surface area Derived from formula 2.2 m2 Ace Marr Work Phone: RT-Chwhwhzhrs-Ajlhnv [address] Work Phone: 07-13-2021 11:13-0400 Body temperature 97.4 [degF] Ace Marr Work Phone: DT-Nyqedlalej-Nuylaj [address] Work Phone: 07-13-2021 11:13-0400 Body weight 99.79 kg Ace Marr Work Phone: IE-Rljelxxxrn-Lfnpaf ke [address] Work Phone: 07-13-2021 11:13-0400 Diastolic blood pressure 90 mm[Hg] Ace Marr Work Phone: TY-Cmzqlnugvk-Gvuuxj ke [address] Work Phone: 07-13-2021 11:13-0400 Heart rate 60 /min Ace Marr Work Phone: AW-Zeicxgjjyr-Flrjgh [address] Work Phone: 07-13-2021 11:13-0400 SaO2% (BldA) [Mass fraction] 97 % Ace Marr Work Phone: NS-Qewqkmvtoo-Lsyhih [address] Work Phone: 07-13-2021 11:13-0400 Systolic blood pressure 160 mm[Hg] Ace Marr Work Phone: MV-Sevdhxeprp-Xjughq ke [address] Work Phone: Encounters Encounter Date Encounter Type Care Provider Facility Start: 03-10-2025 Non-patient / Non-visit Azeb Osei [facility] Work Phone: [facility] Physician [facility] Work Phone: Start: 03-10-2025 End: 03-10-2025 ambulatory Shantell Osei [facility] Work Phone: [facility] Work Phone: Start: 03-10-2025 End: 03-10-2025 Patient encounter procedure Shantell Osei [facility] Work Phone: [facility] Work Phone: Start: 03-04-2025 End: 03-04-2025 ambulatory Kely Villagran Facility:[facility] Start: 02-24-2025 Non-patient / Non-visit Azeb Zavalaault [facility] Work Phone: [facility] Physician [facility] [place] [facility] Work Phone: Start: 02-24-2025 Non-patient / Non-visit Azeb Osei [facility] Work Phone: [facility] Physician [facility] Work Phone: Start: 02-24-2025 End: 02-26-2025 Evaluation and management of inpatient Shantell Osei [facility] Work Phone: [facility] [place] [facility] Work Phone: Start: 02-23-2025 End: 02-23-2025 ambulatory Shantell Osei [facility] Work Phone: [facility] Work Phone: Start: 02-23-2025 End: 02-23-2025 Patient encounter procedure Shantell Osei [facility] Work Phone: [facility] Physician [facility] Work Phone: Start: 02-16-2025 End: 02-16-2025 ambulatory Kely Villagran Facility:[facility] Start: 02-16-2025 End: 02-16-2025 ambulatory [facility] Start: 02-06-2025 Non-patient / Non-visit Azeb Osei [facility] Work Phone: [facility] Physician [facility] Work Phone: Start: 02-05-2025 End: 02-05-2025 Admission to same day surgery center PHYSICIAN NO [facility]-Interventional Radiology Work Phone: Start: 02-05-2025 End: 02-05-2025 ambulatory PHYSICIAN NO [facility] Work Phone: Start: 02-05-2025 End: 02-05-2025 Patient encounter procedure PHYSICIAN NO [facility] [place] Work Phone: Start: 02-05-2025 End: 02-05-2025 ambulatory PHYSICIAN NO [facility] Work Phone: Start: 02-05-2025 Non-patient / Non-visit Azeb Zavalaault [facility] Work Phone: [facility] Work Phone: Start: 02-03-2025 End: 02-03-2025 ambulatory DARBY SANCHES Not Available Start: 02-03-2025 End: 02-03-2025 Office outpatient new 20 minutes Darby Sanches WASHER MACHINE Work Phone: [facility] Comment on above: Abscess of back (Gia soraya Dx) Start: 01-16-2025 ambulatory [facility] SHANTELL OSEI Facility:[facility] Start: 01-05-2025 Non-patient / Non-visit PHYSICIAN NO [facility] Work Phone: Start: 12-08-2024 Non-patient / Non-visit PHYSICIAN NO [facility] Work Phone: Start: 11-15-2024 End: 11-15-2024 ambulatory Shantell Sea [facility] Work Phone: [facility] Work Phone: Start: 11-15-2024 End: 11-15-2024 Patient encounter procedure Shantell Sea [facility] Work Phone: [facility] Work Phone: Start: 11-11-2024 End: 11-11-2024 ambulatory Shantellbrenda Osei [facility] Work Phone: [facility] Work Phone: Start: 11-11-2024 End: 11-11-2024 Patient encounter procedure Shantell Sea [facility] Work Phone: [facility] Work Phone: Start: 10-31-2024 End: 10-31-2024 ambulatory Shantell Sea [facility] Work Phone: [facility] Work Phone: Start: 10-31-2024 End: 10-31-2024 Patient encounter procedure Shantell Osei [facility] Work Phone: [facility] Work Phone: Start: 10-24-2024 End: 10-24-2024 ambulatory [facility] Start: 09-23-2024 Evaluation and management of inpatient [facility] Start: 09-22-2024 Evaluation and management of inpatient [facility] Start: 09-22-2024 ambulatory [facility] Start: 09-22-2024 End: 09-23-2024 Evaluation and management of inpatient [facility] Start: 09-14-2024 Non-patient / Non-visit Azeb Zavalaault [facility] Work Phone: [facility] Work Phone: Start: 09-07-2024 Non-patient / Non-visit Azeb Osei [facility] Work Phone: [facility] Work Phone: Start: 08-21-2024 End: 08-21-2024 Bamboo flowsheet Allison Serrano DPM Work Phone: [facility] Start: 08-21-2024 End: 08-21-2024 Bamboo flowsheet Allison Serrano DPM Work Phone: [facility] Start: 08-21-2024 End: 08-21-2024 Office outpatient new 30 minutes Allison Serrano DPM Work Phone: [facility] Comment on above: Psoriasis plantaris (CMS/HCC) (Primary Dx) Start: 08-21-2024 End: 08-21-2024 ambulatory ALLISON Cook SERRANO Not Available Start: 08-08-2024 End: 08-08-2024 ambulatory [facility] Start: 08-07-2024 Non-patient / Non-visit Azeb Osei [facility] Work Phone: [facility] Work Phone: Start: 07-18-2024 ambulatory JONH [facility] Start: 07-14-2024 End: 07-14-2024 ambulatory RIANNA WASHINGTON [facility] Start: 06-04-2024 End: 06-04-2024 ambulatory [facility] Start: 05-31-2024 End: 05-31-2024 Evaluation and management of inpatient [facility] Start: 05-30-2024 Evaluation and management of inpatient [facility] Start: 05-28-2024 Evaluation and management of inpatient [facility] Start: 05-27-2024 End: 05-31-2024 Evaluation and management of inpatient JORDON Damian [facility] Start: 04-26-2024 End: 04-27-2024 Evaluation and management of inpatient Maurice Willis MD Work Phone: [facility] Car 3- MIC[facility] Start: 03-20-2024 End: 03-20-2024 ambulatory [facility] Start: 03-12-2024 ambulatory [facility] Start: 03-12-2024 End: 03-12-2024 ambulatory CHRISTINAEFRAIN SANABRIA [facility] Start: 02-21-2024 End: 02-21-2024 ambulatory [facility] Shantell Osei Work Phone: [facility] Work Phone: Start: 02-21-2024 End: 02-21-2024 Patient encounter procedure [facility] Shantell Osei Work Phone: [facility]-Dialysis Work Phone: Start: 02-07-2024 End: 02-07-2024 ambulatory [facility] Shantell Osei Work Phone: [facility] Work Phone: Start: 02-07-2024 End: 02-07-2024 Patient encounter procedure [facility] Shantell Osei Work Phone: [facility] [place] Work Phone: Start: 01-09-2024 End: 01-09-2024 Non-patient / Non-visit [facility] Work Phone: Start: 01-08-2024 End: 01-09-2024 Non-patient / Non-visit [facility] Shantell [facility] Phys[facility] Work Phone: Start: 01-08-2024 End: 01-09-2024 Evaluation and management of inpatient [facility] Shantell [facility] Work Phone: Start: 01-06-2024 Non-patient / Non-visit [facility] Shantell Osei Work Phone: [facility] Physician [facility] Work Phone: Start: 12-11-2023 Non-patient / Non-visit [facility] Shantell [facility] Physician [facility] Work Phone: Start: 12-03-2023 Chart abstracting Adrian lund DPM Work Phone: [facility] Start: 11-14-2023 End: 11-14-2023 ambulatory Live Nguyen Other [facility] Other Start: 11-14-2023 Office outpatient ne w 45 minutes [facility] Start: 11-14-2023 End: 11-14-2023 Patient encounter procedure [facility] Start: 11-10-2023 End: 11-10-2023 ambulatory [facility] Work Phone: Start: 11-10-2023 End: 11-10-2023 Patient encounter procedure [facility] Work Phone: Start: 11-03-2023 End: 11-03-2023 Patient encounter procedure [facility] Work Phone: Start: 10-11-2023 End: 10-11-2023 ambulatory [facility] Work Phone: Start: 10-11-2023 End: 10-11-2023 Patient encounter procedure [facility] Work Phone: Start: 06-11-2023 End: 06-11-2023 Departed Referred [facility]-Interventional Radiology Work Phone: Start: 06-11-2023 End: 06-11-2023 Admission to same day surgery center [facility]-Interventional Radiology Work Phone: Start: 06-11-2023 End: 06-11-2023 ambulatory [facility] Work Phone: Start: 05-22-2023 End: 05-22-2023 Evaluation and management of inpatient [facility] [place] [facility] Work Phone: Start: 05-15-2023 End: 05-15-2023 ambulatory Donya Mccann Other [facility] Other Start: 05-15-2023 Office outpatient vi sit 15 minutes Donya Mccann [facility] Start: 05-15-2023 Telephone encounter Gerberdory Short [facility] Start: 01-08-2023 End: 01-08-2023 ambulatory Imad Asaad Other [facility] Other Start: 01-08-2023 Telephone encounter Imad Asaad [facility] Start: 12-11-2022 End: 12-11-2022 ambulatory Imad Asaad Other [facility] Other Start: 12-11-2022 Telephone encounter Imad Asaad [facility] Start: 11-30-2022 End: 11-30-2022 ambulatory Shantell Osei Other [facility] Other Start: 11-30-2022 Office outpatient vi sit 15 minutes Shantell Osei [facility] Start: 11-16-2022 End: 11-16-2022 ambulatory Shantell Osei Other [facility] Other Start: 11-16-2022 Telephone encounter Shantell mcgee [facility] Start: 09-27-2022 End: 09-27-2022 ambulatory Patrice Levine Other [facility] Other Start: 09-27-2022 Postop follow up vis it related to original px Patrice Levine [facility] Start: 09-19-2022 End: 09-19-2022 ambulatory Patrice Levine Other [facility] Other Start: 09-19-2022 Telephone encounter Patrice Whitfield [facility] Start: 09-13-2022 End: 09-13-2022 ambulatory Raissa Oh Other [facility] Other Start: 09-13-2022 Follow-up encounter Raissa Oh [facility] Start: 08-24-2022 End: 08-24-2022 Admission to same day surgery center [facility] Shantell Sea Work Phone: [facility] Start: 08-24-2022 End: 08-24-2022 ambulatory [facility] Shantell Sea Work Phone: [facility] Work Phone: Start: 08-23-2022 End: 08-23-2022 ambulatory [facility] Shantell Sea Work Phone: [facility] Work Phone: Start: 08-23-2022 End: 08-23-2022 Patient encounter procedure [facility] Shantell Sea Work Phone: [facility]-Pre-Surgical Testing Start: 08-18-2022 End: 08-18-2022 ambulatory JUNIOR MAYO Facility:[facility] Start: 08-07-2022 End: 08-08-[address] TIMMY MORTON Facility:[facility] Start: 08-04-2022 End: 08-04-2022 ambulatory IVÁN GOVEA Facility:[facility] Start: 08-01-2022 End: 08-01-2022 ambulatory Gerber Short Other [facility] Other Start: 08-01-2022 Encounter for other preprocedural examination Gerber Short [facility] V[facility] Surgery Start: 08-01-2022 Office outpatient vi sit 25 minutes Gerber Short [facility] Vascular Surgery Start: 07-11-2022 End: 07-11-2022 Admission to same day surgery center [facility] Shantell Osei Work Phone: [facility] Start: 07-11-2022 End: 07-11-2022 ambulatory [facility] Shantell Osei Work Phone: [facility] Work Phone: Start: 07-10-2022 End: 07-10-2022 Patient encounter procedure [facility] Shantell Osei Work Phone: [facility] Start: 07-08-2022 ambulatory JUNIOR MARIA ESTHER Facility:[facility] Start: 06-29-2022 End: 06-29-2022 ambulatory Patrice Levine Other [facility] Other Start: 06-29-2022 Encounter for other preprocedural examination Patrice Levine [facility] Start: 06-29-2022 Office outpatient vi sit 15 minutes Patrice Levine [facility] Start: 06-29-2022 Telephone encounter Patrice Whitfield [facility] Start: 06-26-2022 End: 06-27-[address] TIMMY MORTON Facility:[facility] Start: 06-13-2022 End: 06-13-2022 ambulatory Shantell Sea Other [facility] Other Start: 06-13-2022 Telephone encounter Shantellbrenda Noell t [facility] Start: 06-09-2022 End: 06-10-2022 ambulatory SHANTELL SEA Facility:[facility] Start: 06-07-2022 End: 06-07-2022 ambulatory Monica Vaughan Other [facility] Other Start: 06-07-2022 Office outpatient vi sit 15 minutes Monica Vaughan [facility] Start: 06-06-2022 End: 06-06-2022 ambulatory Shantell Sea Other [facility] Other Start: 06-06-2022 Telephone encounter Shantell Breaul t [facility] Start: 05-25-2022 End: 05-25-2022 ambulatory Shantell Osei Other [facility] Other Start: 05-25-2022 Telephone encounter Shantell Noell t [facility] Start: 05-01-2022 End: 05-01-2022 ambulatory Shantell Osei Other [facility] Other Start: 05-01-2022 Telephone encounter Shantellbrenda Noell t [facility] Start: 03-24-2022 End: 03-24-2022 ambulatory Shantell Osei Other [facility] Other Start: 03-24-2022 Telephone encounter Shantell Noell t [facility] Start: 03-09-2022 End: 03-09-2022 ambulatory Patrice Julianna Other [facility] Other Start: 03-09-2022 Encounter for other preprocedural examination Patrice Levine [facility] Start: 03-09-2022 Office outpatient vi sit 40 minutes Patrice Levine [facility] Start: 03-09-2022 Telephone encounter Patrice Whitfield rg [facility] Start: 03-03-2022 End: 03-03-2022 ambulatory Patrice Levine Other [facility] Other Start: 03-03-2022 Telephone encounter Patrice novak [facility] Start: 02-28-2022 Telephone encounter Iván Govea [facility] Start: 02-28-2022 End: 02-28-2022 ambulatory SHANTELL OSEI [employer] Other Start: 02-24-2022 End: 02-24-2022 ambulatory SHANTELL OSEI Facility: Start: 02-23-2022 End: 02-23-2022 ambulatory Junior Maria Esther Other [facility] [employer] Other Start: 02-23-2022 Office outpatient vi sit 15 minutes Shantellbrenda Osei [facility] Start: 02-23-2022 Telephone encounter Junior Maria Esther [facility] Start: 02-18-2022 End: 02-18-2022 ambulatory SHANTELL SEA Facility:[facility]1 Start: 02-15-2022 End: 02-15-2022 ambulatory Shantell Sea Other [facility] Other Start: 02-15-2022 Telephone encounter Shantellbrenda Epperson t [facility] Start: 02-14-2022 Telephone encounter Aziz Bakhous [facility] Start: 02-14-2022 End: 02-14-2022 ambulatory SHANTELL SEA [employer] Other Start: 02-13-2022 End: 02-14-2022 ambulatory SHANTELL SEA Facility:[facility] Start: 02-13-2022 End: 03-14-2022 ambulatory JUNIOR MARIA ESTHER Facility:[facility] Start: 02-07-2022 End: 02-07-2022 ambulatory Aziz Bakhous Other [facility] Other Start: 02-07-2022 Office outpatient vi sit 25 minutes Aziz Bakhous [facility] Start: 02-07-2022 Telephone encounter Aziz Bakhous [facility] Start: 02-06-2022 End: 02-07-[address] TOBY VENEGAS Facility:[facility]1 Start: 01-18-2022 End: 01-18-2022 ambulatory Shantell Sea Other [facility] [employer] [facility] Other Start: 01-18-2022 Telephone encounter Shantellbrenda Noell t [facility] Start: 01-17-2022 End: 01-17-2022 ambulatory Junior Maria Esther Other [facility] [employer] [facility] Other Start: 01-17-2022 Telephone encounter Junior Maria Esther [facility] Start: 01-10-2022 End: 01-10-2022 ambulatory Patrice Levine Other [employer] Other Start: 01-10-2022 Telephone encounter Patrice novak [facility] Start: 01-04-2022 End: 01-04-2022 ambulatory Patrice Levine Other [employer] Other Start: 01-04-2022 Encounter for other preprocedural examination Shantell Osei [facility] Start: 01-04-2022 Office outpatient vi sit 25 minutes Patrice Levine [facility] Start: 01-04-2022 Telephone encounter Shantell mcgee [facility] Start: 01-02-2022 End: 01-02-2022 ambulatory Patrice Levine Other [facility] [employer] [facility] Other Start: 01-02-2022 Telephone encounter Patrice novak [facility] Start: 12-30-2021 End: 12-31-2021 ambulatory JUNIOR MARIA ESTHER Facility:[facility] Start: 12-29-2021 End: 12-29-2021 ambulatory Shantell Sea Other [facility] [employer] [facility] Other Start: 12-29-2021 Telephone encounter Junior Maria Esther [facility] Start: 12-26-2021 End: 12-26-2021 ambulatory Junior Maria Esther Other [facility] [employer] Other Start: 12-26-2021 Telephone encounter Junior Maria Esther [facility] Start: 12-22-2021 End: 12-23-2021 ambulatory JUNIOR MARIA ESTHER Facility:[facility] Start: 12-19-2021 Telephone encounter Junior Maria Esther [facility] Start: 12-19-2021 End: 12-20-2021 ambulatory JUNIOR MARIA ESTHER [place] [employer] Other Start: 12-15-2021 End: 12-15-2021 ambulatory Junior Maria Esther Other [facility] [employer] Other Start: 12-15-2021 Office outpatient vi sit 25 minutes Junior Maria Esther [facility] Start: 12-12-2021 End: 12-13-2021 ambulatory JUNIOR MARIA ESTHER Facility: Start: 12-05-2021 Telephone encounter Shantell mcgee [facility] Start: 12-05-2021 End: 12-06-2021 ambulatory SHANTELLBRENDA OSEI [facility] [employer] Other Start: 11-29-2021 End: 11-29-2021 ambulatory Junior Maria Esther Other [facility] [employer] [facility] Other Start: 11-29-2021 Telephone encounter Junior Maria Esther [facility] Start: 11-28-2021 End: 11-29-2021 ambulatory JUNIOR MARIA ESTHER [facility] [employer] Other Start: 11-28-2021 Telephone encounter Junior Maria Esther [facility] Start: 11-26-2021 End: 11-26-2021 ambulatory Shantell Sea Other [facility] [employer] Other Start: 11-26-2021 Telephone encounter Shantell mcgee [facility] Start: 11-25-2021 End: 11-25-2021 ambulatory JUNIOR MARIA ESTHER [facility] [employer] Other Start: 11-25-2021 Telephone encounter Junior Maria Esther [facility] Start: 11-02-2021 End: 11-02-2021 ambulatory Junior Maria Esther Other [facility] Other Start: 11-02-2021 Telephone encounter Junior Maria Esther [facility] Start: 10-29-2021 End: 10-30-2021 ambulatory MOHAMAD ALGHOTHANI Facility:[facility]1 Start: 09-15-2021 End: 09-15-2021 ambulatory Junior Maria Esther Other [facility] [employer] [facility] Other Start: 09-15-2021 Office outpatient vi sit 15 minutes Junoir Maria Esther [facility] Start: 09-15-2021 Telephone encounter Shantell mcgee [facility] Start: 09-14-2021 End: 09-14-2021 ambulatory Junior Maria Esther Other [facility] [employer] Other Start: 09-14-2021 Telephone encounter Junior Maria Esther [facility] Start: 09-13-2021 End: 09-14-2021 ambulatory SHANTELL OSEI [place] [employer] Other Start: 09-13-2021 Telephone encounter Junior Maria Esther [facility] Start: 09-10-2021 End: 09-10-2021 ambulatory SHANTELL OSEI Facility: Start: 08-18-2021 End: 08-18-2021 ambulatory Junior Maria Esther Other [facility] [employer] [facility] Other Start: 08-18-2021 Office outpatient vi sit 15 minutes Junior Maria Esther [facility] Start: 2021 Telephone encounter Junior Maria Esther [facility] Start: 08-08-2021 Telephone encounter Junior Maria Esther [facility] Start: 07-28-2021 Office outpatient vi sit 15 minutes Shantell Osei [facility] Start: 07-25-2021 Other Ace mares Work Phone: [facility] 61 Work Phone: Start: 07-22-2021 End: 07-23-2021 Evaluation and management of inpatient MUNGUTIERREZ NATHANZULEMAAL Facility:[facility] Start: 07-21-2021 AUDIT Ace mares [facility] Work Phone: Start: 07-21-2021 Office outpatient vi sit 25 minutes Bonnie CAICEDO [facility] Start: 07-13-2021 Office outpatient ne w 60 minutes Ace Marr Work Phone: [facility] Work Phone: Start: 07-13-2021 Patient encounter procedure Ace Marr Work Phone: [facility] Work Phone: Start: 07-01-2021 AUDIT Ace Harrisoni o Work Phone: [facility] 8568 Work Phone: Start: 02-15-2021 End: 02-15-2021 Patient encounter procedure Vivian Motta Work Phone: -Sleep Lab Start: 01-25-2021 End: 01-25-2021 Patient encounter procedure Vivian Motta -Sleep Lab Start: 03-17-2020 Patient encounter procedure Ace Harrisonalquita [facility] Work Phone: Start: 02-18-2020 Patient encounter procedure Ace Marr -[facility] Work Phone: Start: 02-09-2020 Patient encounter procedure Ace Marr [facility] Work Phone: Start: 12-03-2019 Patient encounter procedure Ace Marr [facility] Work Phone: Start: 06-04-2019 Patient encounter procedure Ace Marr [facility] Work Phone: Patient encounter status Ace Justa Work Phone: [facility] 0088 Work Phone: Procedures Date Procedure Procedure Detail Performing Clinician Start: 02-25-2025 Plain chest X-ray Hermila Osei [facility] Work Phone: Start: 02-24-2025 Plain chest X-ray Hermila fontenot Sea [facility] Work Phone: Start: 02-16-2025 Follow-up visit KELY FADIADILEEP Start: 02-05-2025 Angiography PHYSICIAN NO FAM[facility] Start: 11-11-2024 Bacteria identified in Blood by Culture [facility] Start: 10-24-2024 Follow-up visit KELY FADIADILEEP Start: 08-08-2024 Follow-up visit KELY FADIADILEEP Start: 07-14-2024 Follow-up visit Follow-up RIANNA DOMINGUEZ Start: 06-04-2024 Follow-up visit KELY RANJIT Start: 04-27-2024 Basic metabolic pane l calcium [...] Work Phone: Start: 03-20-2024 Follow-up visit KELY FADIADILEEP Start: 05-22-2023 Plain X-ray of left femur [facility] Shantell Osei Start: 05-22-2023 Plain X-ray of left tibia and left fibula [facility] Shantell Osei Start: 08-24-2022 Arteriovenous fistulization [facility] Shantell Osei Work Phone: Start: 07-11-2022 Arteriovenous fistulization [facility] Shantell Osei Work Phone: Start: 07-22-2021 Antibody screen JENNA AVILA Comment on above: Performed By: #### 3 [id number] #### [facility] [address] [place] [id number], [facility] Start: 07-22-2021 DILATION OF INTRACRA NIAL [...] on above: right eye; SARS Antigen (LFIA) [facility] douglas Zavalaault Work Phone: Plan of Treatment Date Care Activity Detail Author Start: 10-26-2025 Diabetes screen Diabetes screen [facility] Start: 06-15-2025 Influenza vaccination Influenz a Vaccine (Season Ended) [facility] Start: 04-27-2025 GFR test (Diabetes, CKD 3-4, OR last GFR 15-59) GFR test (Diabetes, CKD 3-4, OR last GFR 15-59) [facility] Start: 02-26-2025 [facility] Start: 02-24-2025 Performance of Urina ry Filtration, Intermittent, Less than 6 Hours Per Day Performance of Urinary Filtration, Intermittent, Less than 6 Hours Per Day [facility] Start: 02-24-2025 Respiratory Ventilation, Less than 24 Consecutive Hours Respiratory Ventilation, Less than 24 Consecutive Hours [facility] Start: 02-24-2025 Consultation [facility] Start: 02-24-2025 Hospital admission [facility] Start: 02-24-2025 Referral to collections assistant [facility] Start: 02-05-2025 [facility] Start: 11-11-2024 Bacteria identified in Blood by Culture Blood Culture [facility] Start: 11-11-2024 End: 11-11-2024 [facility] Start: 10-02-2024 End: 10-02-2024 Patient encounter procedure 10/02/2024 2:15 PM EST Office Visit [facility] [address] [place] [address] Allison Serrano, DPM [address] [place] [address] [facility] Start: 08-21-2024 End: 08-21-2024 Patient encounter procedure 08/21/2024 1:00 PM EST Office Visit [facility] [address] [place] [address] Allison Serrano, DPM [address] [place] [address] Arrived [facility] Comment on above: Arrived Start: 05-15-2024 Influenza vaccination Flu vaccine (# 1) [facility] Start: 01-09-2024 [facility] Start: 01-08-2024 Referral to collections assistant [facility] Start: 01-08-2024 Hospital admission [facility] Start: 01-08-2024 Sleep disorder assessment [facility] Start: 01-08-2024 Performance of Urina ry Filtration, Intermittent, Less than 6 Hours Per Day Performance of Urinary Filtration, Intermittent, Less than 6 Hours Per Day [facility] Start: 12-03-2023 End: 12-03-2023 Patient encounter procedure 12/03/2023 9:15 AM EST Office Visit [facility] [address] [place] [id number] Adrian Stark, DPM [address] [place] [address] [facility] Start: 10-26-2023 Lipid panel Lipids [facility] Start: 06-11-2023 IR Fistulogram/TLA Stent (Left) IR Fistulogram/TLA Stent (Left) [facility] Start: 05-22-2023 [facility] Start: 05-22-2023 Referral to collections assistant [facility] Start: 05-22-2023 Hospital admission [facility] Start: 08-24-2022 [facility] Start: 08-24-2022 [facility] Start: 07-11-2022 [facility] Start: 07-29-2021 [facility] Provider: Pablo Serrano, Status: Pen, Time: 10:30 AM [facility], Provider: Pablo Serrano, Status: Pen, Time: 10:30 AM [facility] Work Phone: Start: 07-12-2021 N[facility], Provider: Pablo Serrano, Status: Pen, Time: 9:15 AM [facility], Provider: Pablo Serrano, Status: Pen, Time: 9:15 AM [facility] 1831 Work Phone: Start: 07-07-2021 [facility], Provider: Ace Marr, Status: Pen, Time: 11:30 AM [facility], Provider: Ace Marr, Status: Pen, Time: 11:30 AM [facility] 7526 Work Phone: Start: 2018 Shingles vaccine (1 of 2) Shingles vaccine (1 of 2) [facility] Start: 2013 Screening for malign ant neoplasm of colon [facility] Start: 05-21-2010 DTaP/Tdap/Td vaccine (1 - Tdap) DTaP/Tdap/Td vaccine (1 - Tdap) [facility] Start: 1988 Hepatitis B vaccine (1 of 3 - Risk Dialysis 4-dose series) Hepatitis B vaccine (1 of 3 - Risk Dialysis 4-dose series) [facility] Start: 1980 Depression Monitoring Depression Mon itoring [employer] Start: 1974 Pneumococcal 0-64 ye ars Vaccine (1 of 2 - PCV) Pneumococcal 0-64 years Vaccine (1 of 2 - PCV) [employer] Start: 02-12-1969 COVID-19 Vaccine (#1) COVID-19 Vacci ne (#1) [employer] Start: 1968 Medicare Annual Wellness (AWV) Medicare Annual Wellness (AWV) [facility] Start: 1968 Screening for malign ant neoplasm of colon [facility] Adult NIV/Positive Airway Pressure Adult NIV/Positive Airway Pressure Respiratory Care Routine Every 4hr until discontinued starting 04/27/2024 [employer] Work Phone: Comment on above: Every 4hr until disc ontinued starting 04/27/2024 Continuous pulse oximetry Pulse oximetry, continuous Respiratory Care Routine Every 4hr until discontinued starting 04/26/2024 [employer] Comment on above: Every 4hr until disc ontinued starting 04/26/2024 End: 04-26-2024 Hemodialysis Hemodialysis Dialysis Routine One Time for 1 Occurrences starting 04/26/2024 until 04/26/2024 [employer] Comment on above: One Time for 1 Occur rences starting 04/26/2024 until 04/26/2024 Nasal Cannula Oxygen Nasal Cannu la Oxygen Respiratory Care Routine Daily until discontinued starting 04/26/2024 [employer] Comment on above: Daily until disconti nued starting 04/26/2024 Oxygen therapy [[facility] Data Set] Initiate Oxygen Therapy Protocol Respiratory Care Routine As Needed until discontinued starting 04/26/2024 [employer] Comment on above: As Needed until disc ontinued starting 04/26/2024 Patient Education [facility] Work Phone: Patient referral [facility] Work Phone: Immunizations Immunization Date Immunization Notes Care Provider Munir london 04-03-2020 Kenalog -40 mg Junior Maria Esther Other [facility] Other 04-03-2020 Toradol per 15 mg Junior Qadi r Other [facility] [facility] Other 05-20-2010 Td, unspecified formulation Maurice Willis MD Work Phone: [facility] Payers Date Payer Category Payer Self-pay [id number] 2024 Unknown [id number] 2023 Medicare (Managed Care) [employer] [id number] 2023 Medicare [id number] 2023 Medicaid [id number] [id number] 2022 Medicare [id number] 2022 Medicare (Traditional) [id number] 2.16.840.1.741625.19 1968 Unknown [id number] 2.16.840.1.198909.3.579.2. 647 1968 Unknown [id number] 2.16.840.1.764213.3.579.2. 593 1968 Unknown [id number] 2.16.840.1.738514.3.579.2. 593 1968 Unknown [id number] 2.16.840.1.396310.3.579.2. 593 1968 Unknown [id number] 2.16.840.1.641288.3.579.2. 593 1968 Unknown [id number] 2.16.840.1.056042.3.579.2. 593 1968 Unknown [id number] 2.16.840.1.453331.3.579.2. 593 1968 Unknown [id number] 2.16.840.1.194559.3.579.2. 593 1968 Unknown [id number] 2.16.840.1.676999.3.579.2. 593 1968 Unknown [id number] 2.16.840.1.321796.3.579.2. 593 1968 Unknown [id number] 2.16.840.1.041051.3.579.2. 593 1968 Unknown [id number] 2.16.840.1.423145.3.579.2. 593 1968 Unknown [id number] 2.16.840.1.755383.3.579.2. 593 1968 Unknown [id number] 2.16.840.1.756474.3.579.2. 593 1968 Unknown [id number] 2.16.840.1.821878.3.579.2. 593 1968 Unknown [id number] 2.16.840.1.644847.3.579.2. 593 1968 Unknown [id number] 2.16.840.1.836781.3.579.2. 593 1968 Unknown [id number] 2.16.840.1.151205.3.579.2. 593 1968 Unknown [id number] 2.16.840.1.095023.3.579.2. 593 1968 Unknown [id number] 2.16.840.1.862168.3.579.2. 593 1968 Unknown [id number] 2.16.840.1.184812.3.579.2. 593 1968 Unknown [id number] 2.16.840.1.064045.3.579.2. 593 1968 Unknown [id number] 2.16.840.1.210471.3.579.2. 593 1968 Unknown [id number] 2.16.840.1.112329.3.579.2. 593 1968 Unknown [id number] 2.16.840.1.476845.3.579.2. 593 1968 Unknown [id number] 2.16.840.1.421916.3.579.2. 1259 1968 Unknown [id number] 2.840.1.074129.3.579.2. 1259 1968 Unknown [id number] 2.16.840.1.855530.3.579.2. 727 1968 Unknown [id number] 2.16.840.1.260696.3.579.2. 727 1959 Unknown [id number] Unknown Unknown [id number] 2.16840.1.802984.3.579.2. 531 Unknown [id number] 2.16.840.1.873998.3.579.2. 531 Unknown [id number] 2.16.840.1.439257.3.579.2. 531 Unknown [id number] 2.16.840.1.781526.3.579.2. 531 Unknown [id number] 2.16.840.1.976480.3.579.2. 531 Unknown [id number] 2.16.840.1.673749.3.579.2. 531 Unknown [id number] 2.16.840.1.067274.3.579.2. 531 Social History Date Type Detail Facility Start: 1970 Sex Assigned At Male F [facility] Start: 04-26-2024 End: 08-21-2024 Current every day smoker Current every day smoker [employer] Comment on above: 1 1/2 packs/daily; Start: 04-26-2024 End: 08-21-2024 Sex Assigned At [facility] [employer] Start: 07-11-2022 End: 03-10-2025 Tobacco smoking status NHIS Smoker (finding) [facility] consumption unknown [facility] Start: 1970 Sex Assigned At Not on file N [facility] Start: 08-02-2016 End: 08-21-2024 Tobacco smoking status [facility] Smokes tobacco daily [employer] History of tobacco use Cigarette Smoker B ON [employer] 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 Never true [employer] In the past 12 month s, has lack of transportation kept you from medical appointments or from getting medications? No [employer] [facility] NEGATED: Highlighted row - - -[facility] Work Phone: Medical Equipment Procedure Code Equipment Code Equipment Origin al Text Equipment Identifier Dates Insertion, catheter, dialysis, tunneled, with imaging guidance Double-lumen haemodialysis catheter, implantable +[id number] FDA Start: 12-30-2021 Creation or revision of arteriovenous fistula Synthetic vascular graft [id number] FDA Start: 08-24-2022 Goals Date Patient Goal Desired Activity /State Functional Status Date Assessment Result Facility 02-26-2025 Functional status Patient at [facility] Work Phone: 02-24-2025 Functional status Functional Sta tus Comment Pt intubated and sedated [facility] Work Phone: 01-09-2024 Functional status Patient at Baseline [facility] Work Phone: 05-22-2023 Functional status Patient at Baseline [facility] Work Phone: NEGATED: Highlighted row Functional performance Functional status health issues are not documented Disease [facility] Work Phone: Mental Status Date Assessment Result Facility 02-26-2025 Cognitive function Cognitive Sta tus Patient at Baseline [facility] Work Phone: 01-09-2024 Cognitive function Cognitive Sta tus Patient at Baseline [facility] Work Phone: 05-22-2023 Cognitive function Cognitive Sta tus Patient at Baseline [facility] Work Phone: NEGATED: Highlighted row Cognitive function [Interpretation] Cognitive status health issues are not documented [facility] Work Phone: Clinical Notes 06-15-2021 to 02-26-2025 Note Date & Type Note Facility 02-26-2025 Progress note [facility] 02-26-2025 Discharge summary [facility] 02-26-2025 Progress note Note Date/Time February 26, 2025 11:30am [facility] [address] [place] [address] Nephrology Progress Note Signed Patient: Leander Decker MR#: [id number] : 1970 Acct:[id number] Age/Sex: 54 / M Adm Date: 5 Loc: Room: [address] [place] [address] Type: ADM IN Attending Dr: Irwin Theodore MD Copies to: ~ Date of Service: 02/26/2025 Subjective Subjective Narrative: Mr. Decker is a 54-year-old male with relevant past medical history of ESRD on hemodialysis since February 2022 and receives dialysis at [place] [facility] [place]. Patient presented to [facility] ED earlier today on 02/24/2025 via EMS s/p cardiac arrest. History was obtained from previous HPI from [facility]. He did not miss hemodialysis on Sunday. Apparently, the patient was short of breath at home and needs to go to the hospital. He walked a couplesteps outside, and then became unresponsive. When EMS arrived, they briefly lost his pulse, and CPR was briefly initiated, but then discontinued. When he arrived to the ED he was unresponsive with respiratory distress and agonal no respirations. He was intubated in the emergency department as well as OG tube placed. His blood pressure was markedly elevated. EKG was performed and demonstrated stabilized sinus tachycardia with hyperacute T waves and otherwise nonspecific ST changes. Chest x-ray demonstrated acute pulmonary edema. ABG showed respiratory acidosis with pH 7.08 and PCO2 of 80.4. Sodium 135. Potassium 5. CO2 24.7. BUN 68 with creatinine 12.96. BNP greater than 35,000. Upon arrival to [facility], the patient is intubated and sedated. Nephrology consult for ESRD management. Interim history Patient was seen and examined at bedside during dialysis. He is feeling better today denies any chest pain palpitation cough nausea vomit diarrhea shortness ofbreath Exam Physical Exam Vital Signs: Temp Pulse Resp BP Pulse Ox O2 Del Method O2 Flow Rate 97.8 F 91 16 133/73 99 Room Air 2 02/26/25 09:00 02/26/25 10:31 02/26/25 09:00 02/26/25 10:31 02/26/25 09:00 02/26/25 09:00 02/25/25 11:00 FiO2 30 02/25/25 09:04 Narrative: General: Appears comfortable and not in distress Heart: S1-S2, no rub Lung: Bilateral air entry, no wheezing or crackles Abdomen: Soft, positive bowel sounds Extremities: No edema, no cyanosis Head: Atraumatic, normocephalic Ear: No gross hearing Deficit or external ear redness Eyes: No pallor or redness Neck: No JVD or visible mass Skin: No rashes , warm to touch 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: Awake,Alert, following simple command Musculoskeletal: No swelling or limitation of movement of the large joints Psychiatric: Cooperative, normal mood and affect Objective Intake and Output I&O: Intake & Output 02/23/25 02/24/25 02/25/25 02/26/25 23:59 23:59 23:59 23:59 Intake Total 775 / 775 1010 / 1010 700 / 700 Output Total 4485 / 4485 0 / 0 0 / 0 Balance -3710 / -3710 1010 / 1010 700 / 700 Weight 88.9 kg 87.4 kg 86.1 kg Meds and Allergies Meds: Active Medications Acetaminophen (Acetaminophen 500 Mg Tablet) 1,000 mg PO Q6H PRN PRN Reason: Fever or Pain Stop: 02/25/26 11:54 Last Admin: 02/26/25 06:49 Dose: 1,000 mg Albuterol (Albuterol Neb 2.5 Mg/3 Ml Vial.Neb) 2.5 mg INHALATION Q3H PRN PRN Reason: Shortness Of Breath Stop: 02/25/26 10:29 Aspirin (Aspirin 81 Mg Tab.Chew) 81 mg PO DAILY [facility] Stop: 02/25/26 08:59 Last Admin: 02/26/25 08:11 Dose: 81 mg Atorvastatin Calcium (Atorvastatin 10 Mg Tablet) 10 mg OG-TUBE DAILY [facility] Stop: 02/25/26 08:59 Last Admin: 02/26/25 08:12 Dose: 10 mg Carvedilol (Carvedilol 12.5 Mg Tablet) 12.5 mg PO BID.WITH.MEALS [facility] Stop: 02/25/26 16:59 Last Admin: 02/26/25 08:12 Dose: 12.5 mg Clopidogrel Bisulfate (Clopidogrel Bisulfate 75 Mg Tablet) 75 mg OG-TUBE DAILY [facility] Stop: 02/25/26 08:59 Last Admin: 02/26/25 08:12 Dose: 75 mg Darbepoetin Garry (Darbepoetin Garry In Polysorbat 25 Mcg/Ml Vial) 25 mcg IV-PUSHTh@1000 [facility]; Protocol Stop: 02/26/26 10:00 Dextrose (Dextrose 50% In Water 25 Gm/50 Ml Syringe) 0 gm IV-PUSH PRN PRN PRN Reason: Hypoglycemia Stop: 02/24/26 12:12 Last Admin: 02/25/25 06:27 Dose: 25 gm Gabapentin (Gabapentin 300 Mg Capsule) 300 mg PO DAILY@1400 [facility] Stop: 02/26/26 13:59 Glucose (Dextrose 40% Gel 15 Gm Tube) 0 gm PO PRN PRN PRN Reason: Hypoglycemia Stop: 02/24/26 12:12 Heparin Sodium (Porcine) (Heparin 10,000 Unit/10 Ml Vial) 3,500 unit IV PRN PRN PRN Reason: Dialysis Stop: 02/24/26 10:00 Last Admin: 02/26/25 11:18 Dose: 3,500 unit Heparin Sodium (Porcine) (Heparin 10,000 Unit/10 Ml Vial) 1,500 unit IV PRN PRN PRN Reason: Dialysis Stop: 02/24/26 10:00 Last Admin: 02/26/25 11:18 Dose: 1,500 unit Heparin Sodium (Porcine) (Heparin 5,000 Unit/Ml Vial) 5,000 unit SUBCUT Q8HR [facility] Stop: 02/24/26 13:59 Last Admin: 02/26/25 06:24 Dose: 5,000 unit Hydralazine HCl (Hydralazine 50 Mg Tablet) 100 mg PO BID [facility] Stop: 02/24/26 20:59 Last Admin: 02/26/25 08:11 Dose: 100 mg Sodium Chloride (0.9% Sodium Chloride 1,000 Ml) 1,000 mls @ 0 mls/hr MISCELLANE.Q0M PRN PRN Reason: Dialysis Stop: 02/24/26 10:00 Last Infusion: 02/26/25 11:21 Dose: Infused Isosorbide Mononitrate (Isosorbide Mononitrate 24hr Er 30 Mg Tab.Er.24h) 30 mg PO DAILY [facility] Stop: 02/26/26 08:59 Last Admin: 02/26/25 08:11 Dose: 30 mg Levothyroxine Sodium (Levothyroxine 100 Mcg Tablet) 100 mcg PO DAILY.0630 [facility] Stop: 02/25/26 06:29 Last Admin: 02/26/25 06:24 Dose: 100 mcg Lisinopril (Lisinopril 20 Mg Tablet) 20 mg PO BID [facility] Stop: 02/25/26 20:59 Last Admin: 02/26/25 08:12 Dose: 20 mg Minoxidil (Minoxidil 2.5 Mg Tablet) 10 mg PO DAILY [facility] Stop: 02/25/26 11:59 Last Admin: 02/26/25 08:28 Dose: Not Given Nicotine (Nicotine Patch 21 Mg/24hr 1 Each Patch.Td24) 1 each TRANSDERML DAILY [facility] Stop: 04/07/25 09:01 Last Admin: 02/26/25 08:13 Dose: 1 each Paricalcitol (Paricalcitol 10 Mcg/2 Ml Vial) 9 mcg IV-PUSH MoWeFr@1000 [facility] Stop: 02/24/26 10:29 Last Admin: 02/26/25 11:15 Dose: 9 mcg Sevelamer Carbonate (Sevelamer Carbonate 800 Mg Tablet) 1,600 mg PO TID.WITH.MEALS [facility] Stop: 02/25/26 16:59 Last Admin: 02/26/25 08:12 Dose: 1,600 mg Sodium Chloride (Sodium Chloride 0.9 % 10 Ml Syringe) 0 ml IV-PUSH PRN PRN PRN Reason: Flush Stop: 02/24/26 10:00 Last Admin: 02/26/25 11:16 Dose: 10 ml Allergies Iodinated Contrast Media Adverse Reaction (Severe, Verified 02/23/25 11:05) Unknown Reaction Results - Nephrology Labs 02/25/25 04:16 02/26/25 04:59 Labs: 02/26/25 04:59 BUN 54 H Creatinine 10.05 H D Radiology Impressions Impressions - last 24 hours: Any impression(s) listed above is documentation that was entered by the reading physician into a diagnostic report(s) for Leander Decker. I have reviewed the report(s) and am incorporating any findings in the treatment plan of this patient where applicable. A&P - Nephrology Assessment/Plan (1) End-stage renal disease needing dialysis: Assessment/Problem Details: He has a ESRD due to the hypertensive nephrosclerosis. He currently goes to [facility] hemodialysis unit 3 times a week on TTS schedule. (2) Cardiac arrest: Assessment/Problem Details: Patient presents with cardiac arrest (3) Acute on chronic respiratory failure with hypoxia and hypercapnia: Assessment/Problem Details: He has an acute hypoxia without fail due to the fluid overload. (4) Anemia of renal disease: Assessment/Problem Details: He receives IV iron as with dialysis. (5) Secondary hyperparathyroidism: Assessment/Problem Details: He has a secondary hyperparathyroidism and takes sevelamer at home. He also receives IV Zemplar with dialysis. (6) Benign hypertension with end-stage renal disease: Assessment/Problem Details: His blood pressure has improved with dialysis and ultrafiltration. Plan * Hemodialysis today as ordered. Patient was educated again about compliance with the fluid restriction and risk of the cardiac arrest and fluid overload. * Monitor daily labs and renal function * Continue at home blood pressure medications. Patient does not take minoxidil anymore. * Continue home dose of the sevelamer. * Continue home dose of the IV Zemplar. * Will continue home dose of the IV Aranesp with hemodialysis. * Check CBC and renal function daily * Documented By: Junior Mayo MD 02/26/25 1124 Signed By: <Electronically signed by Junior Mayo MD> 02/26/25 1135 [facility] Work Phone: [phone] 167-661505-15-2025 [place] [address] Nephrology Progress Note Signed Patient: Leander Decker MR#: [id number] : 1970 Acct:[id number] Age/Sex: 54 / M Adm Date: 5 Loc: Room: [address] [place] [address] Type: ADM IN Attending Dr: Irwin Theodore MD Copies to: ~ Date of Service: 02/26/2025 Subjective Subjective Narrative: Mr. Decker is a 54-year-old male with relevant past medical history of ESRD on hemodialysis since February2022 and receives dialysis at [facility] [place]. Patient presented to [place] ED earlier today on 02/24/2025 via EMS s/p cardiac arrest. History was obtained from previous HPI from [facility]. He did not miss hemodialysis on Sunday. Apparently, the patient was short of breath at home and needs to go to the hospital. He walked a couplesteps outside, and then became unresponsive. When EMS arrived, they briefly lost his pulse, and CPR was briefly initiated, but then discontinued. When he arrived to the ED he was unresponsive with respiratory distress and agonal no respirations. He was intubated in the emergency department as well as OG tube placed. His blood pressure was markedly elevated. EKG was performed and demonstrated stabilized sinus tachycardia with hyperacute T waves and otherwise nonspecific ST changes. Chest x-ray demonstrated acute pulmonary edema. ABG showed respiratory acidosis with pH 7.08 and PCO2 of 80.4. Sodium 135. Potassium 5. CO2 24.7. BUN 68 with creatinine 12.96. BNP greater than 35,000. Upon arrival to [facility], the patient is intubated and sedated. Nephrologyconsult for ESRD management. Interim history Patient was seen and examined at bedside during dialysis. He is feeling better today denies any chest pain palpitation cough nausea vomit diarrhea shortness ofbreath Exam Physical Exam Vital Signs: Temp Pulse Resp BP Pulse Ox O2 Del Method O2 Flow Rate 97.8 F 91 16 133/73 99 Room Air 2 02/26/25 09:00 02/26/25 10:02/26/25 09:00 02/26/25 10:31 02/26/25 09:00 02/26/25 09:00 02/25/25 11:00 FiO2 30 02/25/25 09:04 Narrative: General: Appears comfortable and not in distress Heart: S1-S2, no rub Lung: Bilateral air entry, no wheezing or crackles Abdomen: Soft, positive bowel sounds Extremities: No edema, no cyanosis Head: Atraumatic, normocephalic Ear: No gross hearing Deficit or external ear redness Eyes: No pallor or redness Neck: No JVD or visible mass Skin: No rashes , warm to touch 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: Awake,Alert, following simple command Musculoskeletal: No swelling or limitation of movement of the large joints Psychiatric: Cooperative, normal mood and affect Objective Intake and Output I&O: Intake & Output 02/23/25 02/24/25 02/25/25 02/26/25 23:59 23:59 23:59 23:59 Intake Total 775 / 775 1010 / 1010 700 / 700 Output Total 4485 / 4485 0 / 0 0 / 0 Balance -3710 / -3710 1010 / 1010 700 / 700 Weight 88.9 kg 87.4 kg 86.1 kg Meds and Allergies Meds: Active Medications Acetaminophen (Acetaminophen 500 Mg Tablet) 1,000 mg PO Q6H PRN PRN Reason: Fever or Pain Stop: 02/25/26 11:54 Last Admin: 02/26/25 06:49 Dose: 1,000 mg Albuterol (Albuterol Neb 2.5 Mg/3 Ml Vial.Neb) 2.5 mg INHALATION Q3H PRN PRN Reason: Shortness Of Breath Stop: 02/25/26 10:29 Aspirin (Aspirin 81 Mg Tab.Chew) 81 mg PO DAILY [facility] Stop: 02/25/26 08:59 Last Admin: 02/26/25 08:11 Dose: 81 mg Atorvastatin Calcium (Atorvastatin 10 Mg Tablet) 10 mg OG-TUBE DAILY [facility] Stop: 02/25/26 08:59 Last Admin: 02/26/25 08:12 Dose: 10 mg Carvedilol (Carvedilol 12.5 Mg Tablet) 12.5 mg PO BID.WITH.MEALS [facility] Stop: 02/25/26 16:59 Last Admin: 02/26/25 08:12 Dose: 12.5 mg Clopidogrel Bisulfate (Clopidogrel Bisulfate 75 Mg Tablet) 75 mg OG-TUBE DAILY [facility] Stop: 02/25/26 08:59 Last Admin: 02/26/25 08:12 Dose: 75 mg Darbepoetin Garry (Darbepoetin Garry In Polysorbat 25 Mcg/Ml Vial) 25 mcg IV- PUSHTh@1000 [facility]; Protocol Stop: 02/26/26 10:00 Dextrose (Dextrose 50% In Water 25 Gm/50 Ml Syringe) 0 gm IV-PUSH PRN PRN PRN Reason: Hypoglycemia Stop: 02/24/26 12:12 Last Admin: 02/25/25 06:27 Dose: 25 gm Gabapentin (Gabapentin 300 Mg Capsule) 300 mg PO DAILY@1400 [facility] Stop: 02/26/26 13:59 Glucose (Dextrose 40% Gel 15 Gm Tube) 0 gm PO PRN PRN PRN Reason: Hypoglycemia Stop: 02/24/26 12:12 Heparin Sodium (Porcine) (Heparin 10,000 Unit/10 Ml Vial) 3,500 unit IV PRN PRN PRN Reason: Dialysis Stop: 02/24/26 10:00 Last Admin: 02/26/25 11:18 Dose: 3,500 unit Heparin Sodium (Porcine) (Heparin 10,000 Unit/10 Ml Vial) 1,500 unit IV PRN PRN PRN Reason: Dialysis Stop: 02/24/26 10:00 Last Admin: 05/15/25 11:18 Dose: 1,500 unit Heparin Sodium (Porcine) (Heparin 5,000 Unit/Ml Vial) 5,000 unit SUBCUT Q8HR [facility] Stop: 02/24/26 13:59 Last Admin: 02/26/25 06:24 Dose: 5,000 unit Hydralazine HCl (Hydralazine 50 Mg Tablet) 100 mg PO BID [facility] Stop: 02/24/26 20:59 Last Admin: 02/26/25 08:11 Dose: 100 mg Sodium Chloride (0.9% Sodium Chloride 1,000 Ml) 1,000 mls @ 0 mls/hr MISCELLANE.Q0M PRN PRN Reason: Dialysis Stop: 02/24/26 10:00 Last Infusion: 02/26/25 11:21 Dose: Infused Isosorbide Mononitrate (Isosorbide Mononitrate 24hr Er 30 Mg Tab.Er.24h) 30 mg PO DAILY [facility] Stop: 02/26/26 08:59 Last Admin: 02/26/25 08:11 Dose: 30 mg Levothyroxine Sodium (Levothyroxine 100 Mcg Tablet) 100 mcg PO DAILY.0630 [facility] Stop: 02/25/26 06:29 Last Admin: 02/26/25 06:24 Dose: 100 mcg Lisinopril (Lisinopril 20 Mg Tablet) 20 mg PO BID [facility] Stop: 02/25/26 20:59 Last Admin: 02/26/25 08:12 Dose: 20 mg Minoxidil (Minoxidil 2.5 Mg Tablet) 10 mg PO DAILY [facility] Stop: 02/25/26 11:59 Last Admin: 02/26/25 08:28 Dose: Not Given Nicotine (Nicotine Patch 21 Mg/24hr 1 Each Patch.Td24) 1 each TRANSDERML DAILY [facility] Stop: 04/07/25 09:01 Last Admin: 02/26/25 08:13 Dose: 1 each Paricalcitol (Paricalcitol 10 Mcg/2 Ml Vial) 9 mcg IV-PUSH MoWeFr@1000 [facility] Stop: 02/24/26 10:29 Last Admin: 02/26/25 11:15 Dose: 9 mcg Sevelamer Carbonate (Sevelamer Carbonate 800 Mg Tablet) 1,600 mg PO TID.WITH.MEALS [facility] Stop: 02/25/26 16:59 Last Admin: 02/26/25 08:12 Dose: 1,600 mg Sodium Chloride (Sodium Chloride 0.9 % 10 Ml Syringe) 0 ml IV-PUSH PRN PRN PRN Reason: Flush Stop: 02/24/26 10:00 Last Admin: 02/26/25 11:16 Dose: 10 ml Allergies Iodinated Contrast Media Adverse Reaction (Severe, Verified 02/23/25 11:05) Unknown Reaction Results - Nephrology Labs 02/25/25 04:16 02/26/25 04:59 Labs: 02/26/25 04:59 BUN 54 H Creatinine 10.05 H D Radiology Impressions Impressions - last 24 hours: Any impression(s) listed above is documentation that was entered by the reading physician into a diagnostic report(s) for Leander Decker. I have reviewed the report(s) and am incorporating any findings in the treatment plan of this patient where applicable. A&P - Nephrology Assessment/Plan (1) End-stage renal disease needing dialysis: Assessment/Problem Details: He has a ESRD due to the hypertensive nephrosclerosis. He currently goes to [facility] hemodialysis unit 3 times a week on TTS schedule. (2) Cardiac arrest: Assessment/Problem Details: Patient presents with cardiac arrest (3) Acute on chronic respiratory failure with hypoxia and hypercapnia: Assessment/Problem Details: He has an acute hypoxia without fail due to the fluid overload. (4) Anemia of renal disease: Assessment/Problem Details: He receives IV iron as with dialysis. (5) Secondary hyperparathyroidism: Assessment/Problem Details: He has a secondary hyperparathyroidism and takes sevelamer at home. He also receives IV Zemplar with dialysis. (6) Benign hypertension with end-stage renal disease: Assessment/Problem Details: His blood pressure has improved with dialysis and ultrafiltration. Plan * Hemodialysis today as ordered. Patient was educated again about compliance with the fluid restriction and risk of the cardiac arrest and fluid overload. * Monitor daily labs and renal function * Continue at home blood pressure medications. Patient does not take minoxidil anymore. * Continue home dose of the sevelamer. * Continue home dose of the IV Zemplar. * Will continue home dose of the IV Aranesp with hemodialysis. * Check CBC and renal function daily * Documented By: Junior Mayo MD 02/26/25 1129 Signed By: 02/26/25 1130 [facility]05-14-2025 Progress note Author Junior Mayo [facility] Note Date/Time February 25, 2025 2:22p m [facility] [address] [place] [address] Nephrology Progress Note Signed Patient: Leander Decker MR#: [id number] : 1970 Acct:[id number] Age/Sex: 54 / M Adm Date: 5 Loc: Room: [address] [place] [address] Type: ADM IN Attending Dr: Irwin Theodore MD Copies to: ~ Date of Service: 02/25/2025 Subjective Subjective Narrative: Mr. Decker is a 54-year-old male with relevant past medical history of ESRD on hemodialysis since February 2022 and receives dialysis at [facility] [place] onTTS schedule. Patient presented to [place] ED earlier today on 02/24/2025 via EMS s/p cardiac arrest. History was obtained from previous HPI from [facility]. He did not miss hemodialysis on Sunday. Apparently, the patient was short of breath at home and needs to go to the hospital. He walked a couplesteps outside, and then became unresponsive. When EMS arrived, they briefly lost his pulse, and CPR was briefly initiated, but then discontinued. When he arrived to the ED he was unresponsive with respiratory distress and agonal no respirations. He was intubated in the emergency department as well as OG tube placed. His blood pressure was markedly elevated. EKG was performed and demonstrated stabilized sinus tachycardia with hyperacute T waves and otherwise nonspecific ST changes. Chest x-ray demonstrated acute pulmonary edema. ABG showed respiratory acidosis with pH 7.08 and PCO2 of 80.4. Sodium 135. Potassium 5. CO2 24.7. BUN 68 with creatinine 12.96. BNP greater than 35,000. Upon arrival to [facility], the patient is intubated and sedated. Vitals remained somewhat stable. Nephrology consulted for hemodialysis management due to persistent volume overloaded state in [place] Interim history Patient was seen and examined at bedside. He is feeling better today denies anychest pain palpation cough nausea vomit diarrhea shortness of breath but he was successfully extubated this morning. Exam Physical Exam Vital Signs: Temp Pulse Resp BP Pulse Ox O2 Del Method O2 Flow Rate 98.4 F 98 24 136/67 99 Room Air 2 02/25/25 12:00 02/25/25 13:00 02/25/25 13:00 02/25/25 13:00 02/25/25 13:00 02/25/25 13:00 02/25/25 11:00 FiO2 30 02/25/25 09:04 Narrative: General: Appears comfortable and not in distress Heart: S1-S2, no rub Lung: Bilateral air entry, no wheezing or crackles Abdomen: Soft, positive bowel sounds Extremities: No edema, no cyanosis Head: Atraumatic, normocephalic Ear: No gross hearing Deficit or external ear redness Eyes: No pallor or redness Neck: No JVD or visible mass Skin: No rashes , warm to touch 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: Awake,Alert, following simple command Musculoskeletal: No swelling or limitation of movement of the large joints Psychiatric: Cooperative, normal mood and affect Objective Intake and Output I&O: Intake & Output 02/22/25 02/23/25 02/24/25 02/25/25 23:59 23:59 23:59 23:59 Intake Total 775 / 775 260 / 260 Output Total 4485 / 4485 Balance -3710 / -3710 260 / 260 Weight 88.9 kg 87.4 kg Meds and Allergies Meds: Active Medications Acetaminophen (Acetaminophen 500 Mg Tablet) 1,000 mg PO Q6H PRN PRN Reason: Fever or Pain Stop: 02/25/26 11:54 Last Admin: 02/25/25 12:17 Dose: 1,000 mg Albuterol (Albuterol Neb 2.5 Mg/3 Ml Vial.Neb) 2.5 mg INHALATION Q3H PRN PRN Reason: Shortness Of Breath Stop: 02/25/26 10:29 Aspirin (Aspirin 81 Mg Tab.Chew) 81 mg PO DAILY [facility] Stop: 02/25/26 08:59 Last Admin: 02/25/25 08:34 Dose: 81 mg Atorvastatin Calcium (Atorvastatin 10 Mg Tablet) 10 mg OG-TUBE DAILY [facility] Stop: 02/25/26 08:59 Last Admin: 02/25/25 08:34 Dose: 10 mg Carvedilol (Carvedilol 12.5 Mg Tablet) 12.5 mg PO BID.WITH.MEALS [facility] Stop: 02/25/26 16:59 Clopidogrel Bisulfate (Clopidogrel Bisulfate 75 Mg Tablet) 75 mg OG-TUBE DAILY [facility] Stop: 02/25/26 08:59 Last Admin: 02/25/25 08:34 Dose: 75 mg Darbepoetin Garry (Darbepoetin Garry In Polysorbat 25 Mcg/Ml Vial) 25 mcg IV-PUSHTh@1000 [facility]; Protocol Stop: 02/26/26 10:00 Dextrose (Dextrose 50% In Water 25 Gm/50 Ml Syringe) 0 gm IV-PUSH PRN PRN PRN Reason: Hypoglycemia Stop: 02/24/26 12:12 Last Admin: 02/25/25 06:27 Dose: 25 gm Gabapentin (Gabapentin 300 Mg Capsule) 300 mg PO DAILY [facility] Stop: 02/25/26 13:59 Last Admin: 02/25/25 13:52 Dose: 300 mg Glucose (Dextrose 40% Gel 15 Gm Tube) 0 gm PO PRN PRN PRN Reason: Hypoglycemia Stop: 02/24/26 12:12 Heparin Sodium (Porcine) (Heparin 10,000 Unit/10 Ml Vial) 3,500 unit IV PRN PRN PRN Reason: Dialysis Stop: 02/24/26 10:00 Last Admin: 02/24/25 12:16 Dose: 3,500 unit Heparin Sodium (Porcine) (Heparin 10,000 Unit/10 Ml Vial) 1,500 unit IV PRN PRN PRN Reason: Dialysis Stop: 02/24/26 10:00 Last Admin: 02/24/25 12:17 Dose: 1,500 unit Heparin Sodium (Porcine) (Heparin 5,000 Unit/Ml Vial) 5,000 unit SUBCUT Q8HR [facility] Stop: 02/24/26 13:59 Last Admin: 02/25/25 13:52 Dose: 5,000 unit Hydralazine HCl (Hydralazine 50 Mg Tablet) 100 mg PO BID [facility] Stop: 02/24/26 20:59 Sodium Chloride (0.9% Sodium Chloride 1,000 Ml) 1,000 mls @ 0 mls/hr MISCELLANE.Q0M PRN PRN Reason: Dialysis Stop: 02/24/26 10:00 Last Infusion: 02/24/25 12:18 Dose: Infused Isosorbide Mononitrate (Isosorbide Mononitrate 24hr Er 30 Mg Tab.Er.24h) 30 mg PO DAILY [facility] Stop: 02/26/26 08:59 Levothyroxine Sodium (Levothyroxine 100 Mcg Tablet) 100 mcg PO DAILY.0630 [facility] Stop: 02/25/26 06:29 Last Admin: 02/25/25 06:28 Dose: 100 mcg Lisinopril (Lisinopril 20 Mg Tablet) 20 mg PO BID [facility] Stop: 02/25/26 20:59 Minoxidil (Minoxidil 2.5 Mg Tablet) 10 mg PO DAILY [facility] Stop: 02/25/26 11:59 Last Admin: 02/25/25 11:08 Dose: 10 mg Nicotine (Nicotine Patch 21 Mg/24hr 1 Each Patch.Td24) 1 each TRANSDERML DAILY [facility] Stop: 04/07/25 09:01 Last Admin: 02/25/25 11:07 Dose: 1 each Paricalcitol (Paricalcitol 10 Mcg/2 Ml Vial) 9 mcg IV-PUSH MoWeFr@1000 [facility] Stop: 02/24/26 10:29 Last Admin: 02/25/25 11:08 Dose: Not Given Sevelamer Carbonate (Sevelamer Carbonate 800 Mg Tablet) 1,600 mg PO TID.WITH.MEALS [facility] Stop: 02/25/26 16:59 Sodium Chloride (Sodium Chloride 0.9 % 10 Ml Syringe) 0 ml IV-PUSH PRN PRN PRN Reason: Flush Stop: 02/24/26 10:00 Last Admin: 02/24/25 12:17 Dose: 10 ml Allergies Iodinated Contrast Media Adverse Reaction (Severe, Verified 02/23/25 11:05) Unknown Reaction Results - Nephrology Labs 02/25/25 04:16 02/25/25 04:16 Labs: 02/25/25 04:16 BUN 29 H Creatinine 7.00 H Phosphorus 5.6 H Albumin 3.7 Radiology Impressions Impressions - last 24 hours: Impressions Chest X-Ray 02/24/25 16:00 IMPRESSION: Tubes unchanged. Improved vascular congestion and pulmonary edema. Impression dictated by: Gerber Medeiros M.D. 02/24/2025 4:29 PM Dictation Location: [place] [address] Chest X-Ray 02/25/25 05:00 IMPRESSION: NO SIGNIFICANT CHANGE IN CHEST FINDINGS. Impression dictated by: Vj Hendrix Jr., D.O. 02/25/2025 9:14 AM Dictation Location: [id number] Any impression(s) listed above is documentation that was entered by the reading physician into a diagnostic report(s) for Leander Decker. I have reviewed the report(s) and am incorporating any findings in the treatment plan of this patient where applicable. A&P - Nephrology Assessment/Plan (1) Cardiac arrest: Assessment/Problem Details: Patient presents with cardiac arrest (2) End-stage renal disease needing dialysis: Assessment/Problem Details: He has a ESRD due to the hypertensive nephrosclerosis. He currently goes to [facility] hemodialysis unit 3 times a week on TTS schedule. (3) Acute on chronic respiratory failure with hypoxia and hypercapnia: Assessment/Problem Details: He has an acute hypoxia without fail due to the fluid overload. (4) Anemia of renal disease: Assessment/Problem Details: He receives IV iron as with dialysis. (5) Secondary hyperparathyroidism: Assessment/Problem Details: He has a secondary hyperparathyroidism and takes sevelamer at home. He also receives IV Zemplar with dialysis. (6) Benign hypertension with end-stage renal disease: Assessment/Problem Details: His blood pressure is high. He appears to be hypervolemic on exam. Plan * No need for dialysis today. Next dialysis will be tomorrow as per schedule. * Monitor daily labs and renal function * Continue at home blood pressure medications * Continue home dose of the sevelamer. * Continue home dose of the IV Zemplar. * Will continue home dose of the IV Aranesp with hemodialysis. * Check CBC and renal function daily * Documented By: Junior Mayo MD 02/25/25 1415 Signed By: <Electronically signed by Junior Mayo MD> 02/25/25 3662 [facility] Work Phone: [phone] 381-643905-14-2025 [place] [address] Nephrology Progress Note Signed Patient: Leander Decker MR#: [id number] : 1970 Acct:[id number] Age/Sex: 54 / M Adm Date: 5 Loc: Room: [address] [place] [address] Type: ADM IN Attending Dr: Irwin Theodore MD Copies to: ~ Date of Service: 02/25/2025 Subjective Subjective Narrative: Mr. Decker is a 54-year-old male with relevant past medical history of ESRD on hemodialysis since February2022 and receives dialysis at [place] [facility] onT schedule. Patient presented to [place] ED earlier today on 02/24/2025 via EMS s/p cardiac arrest. History was obtained from previous HPI from [facility]. He did not miss hemodialysis on Sunday. Apparently, the patient was short of breath at home and needs to go to the hospital. He walked a couplesteps outside, and then became unresponsive. When EMS arrived, they briefly lost his pulse, and CPR was briefly initiated, but then discontinued. When he arrived to the ED he was unresponsive with respiratory distress and agonal no respirations. He was intubated in the emergency department as well as OG tube placed. His blood pressure was markedly elevated. EKG was performed and demonstrated stabilized sinus tachycardia with hyperacute T waves and otherwise nonspecific ST changes. Chest x-ray demonstrated acute pulmonary edema. ABG showed respiratory acidosis with pH 7.08 and PCO2 of 80.4. Sodium 135. Potassium 5. CO2 24.7. BUN 68 with creatinine 12.96. BNP greater than 35,000. Upon arrival to [facility], the patient is intubated and sedated. Vitals remained somewhat stable. Nephrology consulted for hemodialysis management due to persistent volume overloaded state in [place] Interim history Patient was seen and examined at bedside. He is feeling better today denies anychest pain palpationcough nausea vomit diarrhea shortness of breath but he was successfully extubated this morning. Exam Physical Exam Vital Signs: Temp Pulse Resp BP Pulse Ox O2 Del Method O2 Flow Rate 98.4 F 98 24 136/67 99 Room Air 2 02/25/25 12:00 02/25/25 13:00 02/25/25 13:00 02/25/25 13:00 02/25/25 13:00 02/25/25 13:00 02/25/25 11:00 FiO2 30 02/25/25 09:04 Narrative: General: Appears comfortable and not in distress Heart: S1-S2, no rub Lung: Bilateral air entry, no wheezing or crackles Abdomen: Soft, positive bowel sounds Extremities: No edema, no cyanosis Head: Atraumatic, normocephalic Ear: No gross hearing Deficit or external ear redness Eyes: No pallor or redness Neck: No JVD or visible mass Skin: No rashes , warm to touch 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: Awake,Alert, following simple command Musculoskeletal: No swelling or limitation of movement of the large joints Psychiatric: Cooperative, normal mood and affect Objective Intake and Output I&O: Intake & Output 02/22/25 02/23/25 02/24/25 02/25/25 23:59 23:59 23:59 23:59 Intake Total 775 / 775 260 / 260 Output Total 4485 / 4485 Balance -3710 / -3710 260 / 260 Weight 88.9 kg 87.4 kg Meds and Allergies Meds: Active Medications Acetaminophen (Acetaminophen 500 Mg Tablet) 1,000 mg PO Q6H PRN PRN Reason: Fever or Pain Stop: 02/25/26 11:54 Last Admin: 02/25/25 12:17 Dose: 1,000 mg Albuterol (Albuterol Neb 2.5 Mg/3 Ml Vial.Neb) 2.5 mg INHALATION Q3H PRN PRN Reason: Shortness Of Breath Stop: 02/25/26 10:29 Aspirin (Aspirin 81 Mg Tab.Chew) 81 mg PO DAILY [facility] Stop: 02/25/26 08:59 Last Admin: 02/25/25 08:34 Dose: 81 mg Atorvastatin Calcium (Atorvastatin 10 Mg Tablet) 10 mg OG-TUBE DAILY [facility] Stop: 02/25/26 08:59 Last Admin: 02/25/25 08:34 Dose: 10 mg Carvedilol (Carvedilol 12.5 Mg Tablet) 12.5 mg PO BID.WITH.MEALS [facility] Stop: 02/25/26 16:59 Clopidogrel Bisulfate (Clopidogrel Bisulfate 75 Mg Tablet) 75 mg OG-TUBE DAILY [facility] Stop: 02/25/26 08:59 Last Admin: 02/25/25 08:34 Dose: 75 mg Darbepoetin Garry (Darbepoetin Garry In Polysorbat 25 Mcg/Ml Vial) 25 mcg IV- PUSHTh@1000 [facility]; Protocol Stop: 02/26/26 10:00 Dextrose (Dextrose 50% In Water 25 Gm/50 Ml Syringe) 0 gm IV-PUSH PRN PRN PRN Reason: Hypoglycemia Stop: 02/24/26 12:12 Last Admin: 02/25/25 06:27 Dose: 25 gm Gabapentin (Gabapentin 300 Mg Capsule) 300 mg PO DAILY [facility] Stop: 02/25/26 13:59 Last Admin: 02/25/25 13:52 Dose: 300 mg Glucose (Dextrose 40% Gel 15 Gm Tube) 0 gm PO PRN PRN PRN Reason: Hypoglycemia Stop: 02/24/26 12:12 Heparin Sodium (Porcine) (Heparin 10,000 Unit/10 Ml Vial) 3,500 unit IV PRN PRN PRN Reason: Dialysis Stop: 02/24/26 10:00 Last Admin: 02/24/25 12:16 Dose: 3,500 unit Heparin Sodium (Porcine) (Heparin 10,000 Unit/10 Ml Vial) 1,500 unit IV PRN PRN PRN Reason: Dialysis Stop: 02/24/26 10:00 Last Admin: 02/24/25 12:17 Dose: 1,500 unit Heparin Sodium (Porcine) (Heparin 5,000 Unit/Ml Vial) 5,000 unit SUBCUT Q8HR [facility] Stop: 02/24/26 13:59 Last Admin: 02/25/25 13:52 Dose: 5,000 unit Hydralazine HCl (Hydralazine 50 Mg Tablet) 100 mg PO BID [facility] Stop: 02/24/26 20:59 Sodium Chloride (0.9% Sodium Chloride 1,000 Ml) 1,000 mls @ 0 mls/hr MISCELLANE.Q0M PRN PRN Reason: Dialysis Stop: 02/24/26 10:00 Last Infusion: 02/24/25 12:18 Dose: Infused Isosorbide Mononitrate (Isosorbide Mononitrate 24hr Er 30 Mg Tab.Er.24h) 30 mg PO DAILY [facility] Stop: 02/26/26 08:59 Levothyroxine Sodium (Levothyroxine 100 Mcg Tablet) 100 mcg PO DAILY.0630 [facility] Stop: 02/25/26 06:29 Last Admin: 02/25/25 06:28 Dose: 100 mcg Lisinopril (Lisinopril 20 Mg Tablet) 20 mg PO BID [facility] Stop: 02/25/26 20:59 Minoxidil (Minoxidil 2.5 Mg Tablet) 10 mg PO DAILY [facility] Stop: 02/25/26 11:59 Last Admin: 02/25/25 11:08 Dose: 10 mg Nicotine (Nicotine Patch 21 Mg/24hr 1 Each Patch.Td24) 1 each TRANSDERML DAILY [facility] Stop: 04/07/25 09:01 Last Admin: 02/25/25 11:07 Dose: 1 each Paricalcitol (Paricalcitol 10 Mcg/2 Ml Vial) 9 mcg IV-PUSH MoWeFr@1000 [facility] Stop: 02/24/26 10:29 Last Admin: 02/25/25 11:08 Dose: Not Given Sevelamer Carbonate (Sevelamer Carbonate 800 Mg Tablet) 1,600 mg PO TID.WITH.MEALS [facility] Stop: 02/25/26 16:59 Sodium Chloride (Sodium Chloride 0.9 % 10 Ml Syringe) 0 ml IV-PUSH PRN PRN PRN Reason: Flush Stop: 02/24/26 10:00 Last Admin: 02/24/25 12:17 Dose: 10 ml Allergies Iodinated Contrast Media Adverse Reaction (Severe, Verified 02/23/25 11:05) Unknown Reaction Results - Nephrology Labs 02/25/25 04:16 02/25/25 04:16 Labs: 02/25/25 04:16 BUN 29 H Creatinine 7.00 H Phosphorus 5.6 H Albumin 3.7 Radiology Impressions Impressions - last 24 hours: Impressions Chest X-Ray 02/24/25 16:00 IMPRESSION: Tubes unchanged. Improved vascular congestion and pulmonary edema. Impression dictated by: Gerber Medeiros M.D. 02/24/2025 4:29 PM Dictation Location: [place] [address] Chest X-Ray 02/25/25 05:00 IMPRESSION: NO SIGNIFICANT CHANGE IN CHEST FINDINGS. Impression dictated by: Vj Hendrix Jr., D.O. 02/25/2025 9:14 AM Dictation Location: [place] [address] Any impression(s) listed above is documentation that was entered by the reading physician into a diagnostic report(s) for Leander Decker. I have reviewed the report(s) and am incorporating any findings in the treatment plan of this patient where applicable. A&P - Nephrology Assessment/Plan (1) Cardiac arrest: Assessment/Problem Details: Patient presents with cardiac arrest (2) End-stage renal disease needing dialysis: Assessment/Problem Details: He has a ESRD due to the hypertensive nephrosclerosis. He currently goes to [facility] hemodialysis unit 3 times a week on TTS schedule. (3) Acute on chronic respiratory failure with hypoxia and hypercapnia: Assessment/Problem Details: He has an acute hypoxia without fail due to the fluid overload. (4) Anemia of renal disease: Assessment/Problem Details: He receives IV iron as with dialysis. (5) Secondary hyperparathyroidism: Assessment/Problem Details: He has a secondary hyperparathyroidism and takes sevelamer at home. He also receives IV Zemplar with dialysis. (6) Benign hypertension with end-stage renal disease: Assessment/Problem Details: His blood pressure is high. He appears to be hypervolemic on exam. Plan * No need for dialysis today. Next dialysis will be tomorrow as per schedule. * Monitor daily labs and renal function * Continue at home blood pressure medications * Continue home dose of the sevelamer. * Continue home dose of the IV Zemplar. * Will continue home dose of the IV Aranesp with hemodialysis. * Check CBC and renal function daily * Documented By: Junior Mayo MD 02/25/25 1418 Signed By: 02/25/25 1422 [facility]05-14-2025 Progress note Author Pablo Valdez [facility] Note Date/Time February 25, 2025 10:29 am [facility] [address] [place] [address] Pulmonology Progress Note Signed Patient: Leander Decker MR#: [id number] : 1970 Acct:[id number] Age/Sex: 54 / M Adm Date: 5 Loc: Room: [address] [place] [address] Type: ADM IN Attending Dr: Irwin Theodore MD Copies to: ~ Date of Service: 02/25/2025 Subjective Subjective Narrative: Patient is hemodynamically stable without reported issues overnight per nursing staff. Exam Physical Exam Vital Signs: Temp Pulse Resp BP Pulse Ox O2 Del Method FiO2 99.0 F 98 16 155/90 H 100 Mechanical Ventilation 30 02/25/25 00:00 02/25/25 07:13 02/25/25 07:00 02/25/25 07:13 02/25/25 07:00 02/25/25 07:00 02/25/25 07:00 Const Orientation: not alert and not awake HEENT Head: normal to inspection, normocephalic and atraumatic Ears: external ears normal Nose: external nose normal Face and sinus: normal facial exam Mouth: other (7.0 mm ID ET tube) Eyes Eyelids: eyelids normal Neck Neck: normal visual inspection and no lymphadenopathy Chest Chest palpation & inspection: normal inspection of the chest Resp Auscultation: clear to auscultation bilaterally, no rales, no rhonchi and no wheezes Cardio Rate: regular rate Rhythm: regular rhythm Heart Sounds: S1 normal, S2 normal, no gallops, no murmurs and no rubs GI Inspection: normal to inspection Palpation: soft and nontender Auscultation: hypoactive bowel sounds Rectal Exam: deferred General: deferred Skin General: no rashes or lesions noted (warm and dry) Extrem General: no pedal edema Objective Intake and Output I&O - Last 24 Hours: Intake & Output 02/24/25 02/24/25 02/25/25 15:59 23:59 07:59 Intake Total 500 / 775 275 / 775 260 / 260 Output Total 4485 / 4485 0 / 4485 Balance -3985 / -3710 275 / -3710 260 / 260 Weight 88.9 kg 87.4 kg Labs 02/25/25 04:16 02/25/25 04:16 Imaging and Cardiology Chest x-ray: Status: image reviewed by me Additional comments: Radiologist's interpretation is not available for review at the time of my evaluation. To my review some mild increase in interstitial markings but overall marked improvement in patient's previously noted pulmonary edema. Endotracheal tube is somewhat high and could be advanced down to 3 cm though likely this will be discontinued today and orogastric tube is in appropriate position. There is no obvious mediastinal abnormality. Additional Results Results Comments: 02/24/25 02/25/25 17:07 04:43 ABG pH 7.50 H 7.40 ABG pCO2 35.0 45.9 H ABG pO2 99.8 72.2 L ABG HCO3 26.6 27.5 ABG Total CO2 27.7 H 28.9 H ABG O2 Saturation 97.4 93.4 L ABG O2 Content 6.2 L 5.9 L ABG Base Excess 3.4 H 2.2 Assessment/Plan Assessment/Plan (1) Acute on chronic respiratory failure with hypercapnia: (2) Pulmonary edema due to fluid overload: (3) Obstructive sleep apnea (adult) (pediatric): Plan Hospital day #1, ventilator day #1 for 54 year old male with end-stage renal disease admitted with flash pulmonary edema and hypertensive emergency with respiratory failure * Patient had 4 L removed with dialysis yesterday and chest x-ray appears improved. * Gas exchange on the basis of ABGs as appropriate * Will proceed with extubation today and resumption of antihypertensives * Continue supportive care. Documented By: Pablo Valdez MD 5 0739 Signed By: <Electronically signed by MD Pablo Valdez> 02/25/25 1029 [facility] Work Phone: [phone]) 292-737005-14-2025 [place] [address] Pulmonology Progress Note Signed Patient: Leander Decker MR#: [id number] : 1970 Acct:[id number] Age/Sex: 54 / M Adm Date: 5 Loc: Room: [address] [place] [address] Type: ADM IN Attending Dr: Irwin Theodore MD Copies to: ~ Date of Service: 02/25/2025 Subjective Subjective Narrative: Patient is hemodynamically stable without reported issues overnight per nursing staff. Exam Physical Exam Vital Signs: Temp Pulse Resp BP Pulse Ox O2 Del Method FiO2 99.0 F 98 16 155/90 H 100 Mechanical Ventilation 30 02/25/25 00:00 02/25/25 07:13 02/25/25 07:00 02/25/25 07:13 02/25/25 07:00 02/25/25 07:00 02/25/25 07:00 Const Orientation: not alert and not awake HEENT Head: normal to inspection, normocephalic and atraumatic Ears: external ears normal Nose: external nose normal Face and sinus: normal facial exam Mouth: other (7.0 mm ID ET tube) Eyes Eyelids: eyelids normal Neck Neck: normal visual inspection and no lymphadenopathy Chest Chest palpation & inspection: normal inspection of the chest Resp Auscultation: clear to auscultation bilaterally, no rales, no rhonchi and no wheezes Cardio Rate: regular rate Rhythm: regular rhythm Heart Sounds: S1 normal, S2 normal, no gallops, no murmurs and no rubs GI Inspection: normal to inspection Palpation: soft and nontender Auscultation: hypoactive bowel sounds Rectal Exam: deferred General: deferred Skin General: no rashes or lesions noted (warm and dry) Extrem General: no pedal edema Objective Intake and Output I&O - Last 24 Hours: Intake & Output 02/24/25 02/24/25 02/25/25 15:59 23:59 07:59 Intake Total 500 / 775 275 / 775 260 / 260 Output Total 4485 / 4485 0 / 4485 Balance -3985 / -3710 275 / -3710 260 / 260 Weight 88.9 kg 87.4 kg Labs 02/25/25 04:16 02/25/25 04:16 Imaging and Cardiology Chest x-ray: Status: image reviewed by me Additional comments: Radiologist's interpretation is not available for review at the time of my evaluation. To my reviewsome mild increase in interstitial markings but overall marked improvement in patient's previously noted pulmonary edema. Endotracheal tube is somewhat high and could be advanced down to 3 cm though likely this will be discontinued today and orogastric tube is in appropriate position. There is no obvious mediastinal abnormality. Additional Results Results Comments: 02/24/25 02/25/25 17:07 04:43 ABG pH 7.50 H 7.40 ABG pCO2 35.0 45.9 H ABG pO2 99.8 72.2 L ABG HCO3 26.6 27.5 ABG Total CO2 27.7 H 28.9 H ABG O2 Saturation 97.4 93.4 L ABG O2 Content 6.2 L 5.9 L ABG Base Excess 3.4 H 2.2 Assessment/Plan Assessment/Plan (1) Acute on chronic respiratory failure with hypercapnia: (2) Pulmonary edema due to fluid overload: (3) Obstructive sleep apnea (adult) (pediatric): Plan Hospital day #1, ventilator day #1 for 54 year old male with end-stage renal disease admitted with flash pulmonary edema and hypertensive emergency with respiratory failure * Patient had 4 L removed with dialysis yesterday and chest x-ray appears improved. * Gas exchange on the basis of ABGs as appropriate * Will proceed with extubation today and resumption of antihypertensives * Continue supportive care. Documented By: Pablo Valdez MD 5 0724 Signed By: 02/25/25 1029 [facility]05-13-2025 History and physical note Author Irwin Theodore [facility] Note Date/Time February 24, 2025 4:11p m [facility] [address] [place], [place] [id number] Hospitalist H&P Signed Patient: Leander Decker MR#: [id number] : 1970 Acct:[id number] Age/Sex: 54 / M Adm Date: 5 Loc: Room: [address] [place] [address] Type: ADM IN Attending Dr: Irwin Theodore MD Copies to: MD Vj Mcgarry DO, COLIN Osei, [facility]~ HPI DATE OF EXAMINATION: 02/24/25 CHIEF COMPLAINT: Shortness of Breath HISTORY OF PRESENT ILLNESS: Attending note: I saw the patient personally on the day of encounter. I reviewed the relevant history, and performed the bridges elements of the physical examination. I reviewedthe relevant laboratory workup, radiological studies and the current treatment plan. I formulated the plan of care and confirmed it with the resident/student/WASHER MACHINE. Mr. Decker is a 54 year old male patient with pmHx of ESRD on dialysis (T, TR, Sat) and prior respiratory failure requiring intubation presents today as a transfer from [place] ED earlier today where he originally presented from home via EMS for shortness of breath. Reportedly per chart review, the patient was short of breath at home where he walked a few steps outside, and then became unresponsive. Reportedly, once EMS arrived, his pulse was shortly lost where CPRwas briefly initiated, but then discontinued. When he arrived to the ED at [place] he was unresponsive with respiratory distress. He was intubated in theED as well as OG tube placed. His BP was markedly elevated. EKG was performed and demonstrated stabilized sinus tachycardia with hyperacute T waves and otherwise nonspecific ST changes. Chest x-ray demonstrated signs concerning foracute pulmonary edema. ABG showed respiratory acidosis with pH 7.08 and PCO2 of80.4. CO2 24.7. BUN 68 with creatinine 12.96. BNP greater than 35,000. Per chart review according to patient daughter patient had normal dialysis on Sunday but yesterday was extremely thirsty and consumed a lot of fluid. Patient was scheduled for dialysis this morning but did not receive it. His lasthemodialysis was on Sunday. Patient evaluated in the ICU where patient remainsintubated. Via butterfly ultrasound we were able to observe trace pericardial effusion. Patient currently afebrile and hemodynamically stable on mechanical ventilation with FiO2 ratio 45% satting at 100%. Review of Systems Review of Systems Unobtainable due to mental status [facility] Medical History (Updated 02/24/25 @ 11:29 by Vj Means DO, RES) Hypertension Hyperlipidemia COPD exacerbation Anemia of renal disease Vitreous floaters of both eyes Vitamin D deficiency Thyroid nodule Primary insomnia Plantar wart of left foot Other specified hypothyroidism Obstructive sleep apnea (adult) (pediatric) Neuropathy Nephrolithiasis Hyperparathyroidism High cholesterol Hemodialysis access, AV graft Essential hypertension Dyslipidemia Dependence on renal dialysis DDD (degenerative disc disease), cervical COPD with acute exacerbation Carotid stenosis, bilateral BMI 31.0-31.9,adult Autoimmune thyroiditis Asymptomatic stenosis of left carotid artery Acute on chronic respiratory failure with hypercapnia Leukocytosis Arteriovenous fistula of left upper extremity failed [...] Medications and Allergies Allergies Iodinated Contrast Media Adverse Reaction (Severe, Verified 02/23/25 11:05) Unknown Reaction Home Medications sevelamer carbonate 800 mg tablet (Renvela) 1,600 mg PO TIDWM 07/11/22 [History Confirmed 02/24/25] hydralazine 100 mg tablet 100 mg PO BID 08/24/22 [History Confirmed 02/24/25] vitamin B complex-vitamin C-folic acid 0.8 mg tablet (Nephro-Vianac) 1 tab PO DAILY 03/01/23 [History Confirmed 02/23/25] gabapentin 300 mg capsule 300 mg PO QID PRN pain 05/22/23 [History Confirmed 02/24/25] amlodipine 5 mg tablet 5 mg PO DAILY #30 tabs 01/09/24 [Rx Confirmed 02/23/25] furosemide 40 mg tablet See Rx Instructions .Route .COMPLEX #180 tabs 07/07/24 [Rx Confirmed 02/23/25] aspirin 81 mg tablet,delayed release (Adult Low Dose Aspirin) 81 mg PO DAILY 02/23/25 [History Confirmed 02/24/25] clopidogrel 75 mg tablet 75 mg PO DAILY 02/23/25 [History Confirmed 02/24/25] atorvastatin 10 mg tablet 10 mg PO DAILY 02/24/25 [History Confirmed 02/24/25] carvedilol 12.5 mg tablet 12.5 mg PO BID 02/24/25 [History Confirmed 02/24/25] carvedilol 6.25 mg tablet 6.25 mg PO BID 02/24/25 [History Confirmed 02/24/25] isosorbide mononitrate 30 mg tablet,extended release 24 hr 30 mg PO DAILY 02/24/25 [History Confirmed 02/24/25] levothyroxine 100 mcg tablet 100 mcg PO DAILY 02/24/25 [History Confirmed 02/24/25] lisinopril 10 mg tablet 10 mg PO BID 02/24/25 [History Confirmed 02/24/25] midodrine 5 mg tablet 5 mg PO .Three times a week PRN during dialysis 02/24/25 [History Confirmed 02/24/25] minoxidil 10 mg tablet 10 mg PO DAILY 02/24/25 [History Confirmed 02/24/25] Exam Physical Exam Vital Signs: Pulse Resp FiO2 86 20 45 02/24/25 10:14 02/24/25 10:14 02/24/25 10:16 Narrative: General: Intubated and sedated Head: Atraumatic, normocephalic Heart: Regular rate and rhythm, S1-S2, no rub Lung: Bilateral coarse breath sounds, no wheezing, no cough Abdomen: Soft, positive bowel sounds, prior chronic surgical scar midline Extremities: 2+ pitting edema extending cephalad to mid thighs, fistula in left arm Eyes: No pallor or redness, white sclera Neck: No JVD, normal to visual inspection, no lymphadenopathy Skin: No rashes , warm to touch 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: Intubated and sedated Assessment & Plan Assessment/Plan (1) Acute on chronic respiratory failure with hypoxia and hypercapnia: (2) Pulmonary edema due to fluid overload: (3) Acute renal 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 on chronic kidney disease: (4) End-stage renal disease needing dialysis: Plan # Acute on chronic respiratory failure with hypoxia and hypercapnia # Hypertensive emergency: pulmonary edema due to fluid overload in the setting of end-stage renal disease on hemodialysis Plan: -- Consult nephrology for emergent dialysis -- Consult pulmonology for ventilation management -- Repeat EKG -- AM CBC, CMP, PT and INR in a.m. -- Repeat troponin in a.m. -- Continue home medications as appropriate Diet: N.p.o. DVT Prophylaxis: HSQ every 8 HR Admission Status admit to ICU with telemetry Code Status: Full Code IP vs OBS Justification Based on differential dx, clinical care plan, and risk of adverse events, if untreated, in my clinical judgement this patient requires an acute care setting as: INPATIENT because of an expectation of an over 2 midnight stay. Estimated length of stay (# of days): 4 Documented By: Irwin Theodore MD 02/24/25 1050 Signed By: <Electronically signed by Irwin Theodore MD> 02/24/25 1611 <Electronically signed by DO COLIN Means> 02/24/25 1135 [facility] Work Phone: 1(963) 534-541805-13-2025 [place] [address] Hospitalist H&P Signed Patient: Leander Decker MR#: [id number] : 1970 Acct:[id number] Age/Sex: 54 / M Adm Date: 5 Loc: Room: [address] [place] [address] Type: ADM IN Attending Dr: Irwin Theodore MD Copies to: MD Vj Mcgarry, DO, RES Shantell Osei, [facility]-~ HPI DATE OF EXAMINATION: 02/24/25 CHIEF COMPLAINT: Shortness of Breath HISTORY OF PRESENT ILLNESS: Attending note: I saw the patient personally on the day of encounter. I reviewed the relevant history, and performed the bridges elements of the physical examination. I reviewedthe relevant laboratory workup, radiological studies and the current treatment plan. I formulated the plan of care and confirmed it with the re sident/student/WASHER MACHINE. Mr. Decker is a 54 year old male patient with pmHx of ESRD on dialysis (T, TR, Sat) and prior respiratory failure requiring intubation presents today as a transfer from [place] ED earlier today where he originally presented from home via EMS for shortness of breath. Reportedly per chart review, the patient was short of breath at home where he walked a few steps outside, and then became unresponsive. Reportedly, once EMS arrived, his pulse was shortly lost where CPRwas briefly initiated, but thendiscontinued. When he arrived to the ED at [place] he was unresponsive with respiratory distress. He was intubated in theED as well as OG tube placed. His BP was markedly elevated. EKG was performed and demonstrated stabilized sinus tachycardia with hyperacute T waves and otherwise nonspecific ST changes. Chest x-ray demonstrated signs concerning foracute pulmonary edema. ABG showed respiratory acidosis with pH 7.08 and PCO2 of80.4. CO2 24.7. BUN 68 with creatinine 12.96. BNP greater than 35,000. Per chart review according to patient daughter patient had normal dialysis on Sunday but yesterday was extremely thirsty and consumed a lot of fluid. Patient was scheduled for dialysis this morning but did not receive it. His lasthemodialysis was on Sunday. Patient evaluated in the ICU wherepatient remainsintubated. Via butterfly ultrasound we were able to observe trace pericardial effusion. Patient currently afebrile and hemodynamically stable on mechanical ventilation with FiO2 ratio 45% satting at 100%. Review of Systems Review of Systems Unobtainable due to mental status [facility] Medical History (Updated 02/24/25 @ 11:29 by Vj Means DO, RES) Hypertension Hyperlipidemia COPD exacerbation Anemia of renal disease Vitreous floaters of both eyes Vitamin D deficiency Thyroid nodule Primary insomnia Plantar wart of left foot Other specified hypothyroidism Obstructive sleep apnea (adult) (pediatric) Neuropathy Nephrolithiasis Hyperparathyroidism High cholesterol Hemodialysis access, AV graft Essential hypertension Dyslipidemia Dependence on renal dialysis DDD (degenerative disc disease), cervical COPD with acute exacerbation Carotid stenosis, bilateral BMI 31.0-31.9,adult Autoimmune thyroiditis Asymptomatic stenosis of left carotid artery Acute on chronic respiratory failure with hypercapnia Leukocytosis Arteriovenous fistula of left upper extremity failed [...] disease) Family history of mental disorder [facility] Problem: Diagnosed with Mental Illness Heart disease Sister [facility]: Diagnosed with Mental Illness Other CAD (coronary artery disease) Social History Smoking Status: Current every day smoker Tobacco Type: cigarettes Substance Use Type: None Social History Comments: mobile home Meds Medications and Allergies Allergies Iodinated Contrast Media Adverse Reaction (Severe, Verified 02/23/25 11:05) Unknown Reaction Home Medications sevelamer carbonate 800 mg tablet (Renvela) 1,600 mg PO TIDWM 07/11/22 [History Confirmed 02/24/25] hydralazine 100 mg tablet 100 mg PO BID 08/24/22 [History Confirmed 02/24/25] vitamin B complex-vitamin C-folic acid 0.8 mg tablet (Nephro-Vianca) 1 tab PO DAILY 03/01/23 [HistoryConfirmed 02/23/25] gabapentin 300 mg capsule 300 mg PO QID PRN pain 05/22/23 [History Confirmed 02/24/25] amlodipine 5 mg tablet 5 mg PO DAILY #30 tabs 01/09/24 [Rx Confirmed 02/23/25] furosemide 40 mg tablet See Rx Instructions .Route .COMPLEX #180 tabs 07/07/24 [Rx Confirmed 02/23/25] aspirin 81 mg tablet,delayed release (Adult Low Dose Aspirin) 81 mg PO DAILY 02/23/25 [History Confirmed 02/24/25] clopidogrel 75 mg tablet 75 mg PO DAILY 02/23/25 [History Confirmed 02/24/25] atorvastatin 10 mg tablet 10 mg PO DAILY 02/24/25 [History Confirmed 02/24/25] carvedilol 12.5 mg tablet 12.5 mg PO BID 02/24/25 [History Confirmed 02/24/25] carvedilol 6.25 mg tablet 6.25 mg PO BID 02/24/25 [History Confirmed 02/24/25] isosorbide mononitrate 30 mg tablet,extended release 24 hr 30 mg PO DAILY 02/24/25 [History Confirmed 02/24/25] levothyroxine 100 mcg tablet 100 mcg PO DAILY 02/24/25 [History Confirmed 02/24/25] lisinopril 10 mg tablet 10 mg PO BID 02/24/25 [History Confirmed 02/24/25] midodrine 5 mg tablet 5 mg PO .Three times a week PRN during dialysis 02/24/25 [History Confirmed 02/24/25] minoxidil 10 mg tablet 10 mg PO DAILY 02/24/25 [History Confirmed 02/24/25] Exam Physical Exam Vital Signs: Pulse Resp FiO2 86 20 45 02/24/25 10:14 02/24/25 10:14 02/24/25 10:16 Narrative: General: Intubated and sedated Head: Atraumatic, normocephalic Heart: Regular rate and rhythm, S1-S2, no rub Lung: Bilateral coarse breath sounds, no wheezing, no cough Abdomen: Soft, positive bowel sounds, prior chronic surgical scar midline Extremities: 2+ pitting edema extending cephalad to mid thighs, fistula in left arm Eyes: No pallor or redness, white sclera Neck: No JVD, normal to visual inspection, no lymphadenopathy Skin: No rashes , warm to touch 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: Intubated and sedated Assessment & Plan Assessment/Plan (1) Acute on chronic respiratory failure with hypoxia and hypercapnia: (2) Pulmonary edema due to fluid overload: (3) Acute renal 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 on chronic kidney disease: (4) End-stage renal disease needing dialysis: Plan # Acute on chronic respiratory failure with hypoxia and hypercapnia # Hypertensive emergency: pulmonary edema due to fluid overload in the setting of end-stage renal disease on hemodialysis Plan: -- Consult nephrology for emergent dialysis -- Consult pulmonology for ventilation management -- Repeat EKG -- AM CBC, CMP, PT and INR in a.m. -- Repeat troponin in a.m. -- Continue home medications as appropriate Diet: N.p.o. DVT Prophylaxis: HSQ every 8 HR Admission Status admit to ICU with telemetry Code Status: Full Code IP vs OBS Justification Based on differential dx, clinical care plan, and risk of adverse events, if untreated, in my clinical judgement this patient requires an acute care setting as: INPATIENT because of an expectation ofan over 2 midnight stay. Estimated length of stay (# of days): 4 Documented By: Irwin Theodore MD 02/24/25 1050 Signed By: 02/24/25 1611 02/24/25 1135 [facility]05-13-2025 Consult note Author Junior Mayo [facility] Note Date/Time February 24, 2025:46 pm [facility] [address] [place] [address] Nephrology Consult Note Signed Patient: Leander Decker MR#: [id number] : 1970 Acct:[id number] Age/Sex: 54 / M Adm Date: 5 Loc: Room: [address] [place] [address] Type: ADM IN Attending Dr: Irwin Theodore MD Copies to: MD Irwin Nicole MD Mitchell Rice, DO, RES TOMÁS Jay~ Providers Consult Date: 02/24/25 Requesting Provider: Irwin Theodore MD Primary Care Provider: TOMÁS Jay HPI Reason for Consult: ESRD History of Present Illness: Mr. Decker is a 54-year-old male with relevant past medical history of ESRD on hemodialysis since February 2022 and receives dialysis at [place] [facility] [place]. Patient presented to [place] ED earlier today on 02/24/2025 via EMS s/p cardiac arrest. History was obtained from previous HPI from [facility]. He did not miss hemodialysis on Sunday. Apparently, the patient was short of breath at home and needs to go to the hospital. He walked a couplesteps outside, and then became unresponsive. When EMS arrived, they briefly lost his pulse, and CPR was briefly initiated, but then discontinued. When he arrived to the ED he was unresponsive with respiratory distress and agonal no respirations. He was intubated in the emergency department as well as OG tube placed. His blood pressure was markedly elevated. EKG was performed and demonstrated stabilized sinus tachycardia with hyperacute T waves and otherwise nonspecific ST changes. Chest x-ray demonstrated acute pulmonary edema. ABG showed respiratory acidosis with pH 7.08 and PCO2 of 80.4. Sodium 135. Potassium 5. CO2 24.7. BUN 68 with creatinine 12.96. BNP greater than 35,000. Upon arrival to [facility], the patient is intubated and sedated. Vitals remained somewhat stable. Nephrology consulted for CRRT/hemodialysis management due to persistent volume overloaded state Review of Systems Review of Systems Unobtainable due to endotracheal tube PMFSH Medical History (Updated 02/24/25 @ 11:29 by Vj H Miguelangel, DO, RES) Hypertension Hyperlipidemia COPD exacerbation Anemia of renal disease Vitreous floaters of both eyes Vitamin D deficiency Thyroid nodule Primary insomnia Plantar wart of left foot Other specified hypothyroidism Obstructive sleep apnea (adult) (pediatric) Neuropathy Nephrolithiasis Hyperparathyroidism High cholesterol Hemodialysis access, AV graft Essential hypertension Dyslipidemia Dependence on renal dialysis DDD (degenerative disc disease), cervical COPD with acute exacerbation Carotid stenosis, bilateral BMI 31.0-31.9,adult Autoimmune thyroiditis Asymptomatic stenosis of left carotid artery Acute on chronic respiratory failure with hypercapnia Leukocytosis Arteriovenous fistula of left upper extremity failed [...] mobile home Meds Medications & Allergies Allergies No Known Allergies Allergy (Verified 02/23/25 11:05) Iodinated Contrast Media Adverse Reaction (Severe, Verified 02/23/25 11:05) Unknown Reaction Home Medications atorvastatin 40 mg tablet (Lipitor) 40 mg PO DAILY 12/05/21 [History Confirmed 02/23/25] sevelamer carbonate 800 mg tablet (Renvela) 1,600 mg PO TIDWM 07/11/22 [History Confirmed 02/23/25] hydralazine 100 mg tablet 100 mg PO BID 08/24/22 [History Confirmed 02/23/25] vitamin B complex-vitamin C-folic acid 0.8 mg tablet (Nephro-Vianca) 1 tab PO DAILY 03/01/23 [History Confirmed 02/23/25] gabapentin 300 mg capsule 300 mg PO BID 05/22/23 [History Confirmed 02/23/25] amlodipine 5 mg tablet 5 mg PO DAILY #30 tabs 01/09/24 [Rx Confirmed 02/23/25] levothyroxine 112 mcg tablet 100 mcg (0.8929 x 112 mcg) PO DAILY #90 tabs 01/14/24 [Rx Confirmed 02/23/25] minoxidil 10 mg tablet See Rx Instructions .Route .COMPLEX #180 tabs 04/11/24 [Rx Confirmed 02/23/25] lisinopril 20 mg tablet See Rx Instructions .Route .COMPLEX #180 tabs 04/17/24 [Rx Confirmed 02/23/25] furosemide 40 mg tablet See Rx Instructions .Route .COMPLEX #180 tabs 07/07/24 [Rx Confirmed 02/23/25] carvedilol 25 mg tablet See Rx Instructions .Route .COMPLEX #180 tabs 10/24/24 [Rx Confirmed 02/23/25] aspirin 81 mg tablet,delayed release (Adult Low Dose Aspirin) 81 mg PO DAILY 02/23/25 [History Confirmed 02/23/25] clopidogrel 75 mg tablet 75 mg PO DAILY 02/23/25 [History Confirmed 02/23/25] Active Medications: Active Medications Darbepoetin Garry (Darbepoetin Garry In Polysorbat 25 Mcg/Ml Vial) 25 mcg IV-PUSHTh@1000 SHANON; Protocol Stop: 02/26/26 10:00 Heparin Sodium (Porcine) (Heparin 10,000 Unit/10 Ml Vial) 3,500 unit IV PRN PRN PRN Reason: Dialysis Stop: 02/24/26 10:00 Heparin Sodium (Porcine) (Heparin 10,000 Unit/10 Ml Vial) 1,500 unit IV PRN PRN PRN Reason: Dialysis Stop: 02/24/26 10:00 Sodium Chloride (0.9% Sodium Chloride 1,000 Ml) 1,000 mls @ 0 mls/hr MISCELLANE.Q0M PRN PRN Reason: Dialysis Stop: 02/24/26 10:00 Paricalcitol (Paricalcitol 10 Mcg/2 Ml Vial) 9 mcg IV-PUSH MoWeFr@1000 SHANON Stop: 02/24/26 10:29 Sodium Chloride (Sodium Chloride 0.9 % 10 Ml Syringe) 0 ml IV-PUSH PRN PRN PRN Reason: Flush Stop: 02/24/26 10:00 Exam Physical Exam Vital Signs: Pulse Resp FiO2 86 20 45 02/24/25 10:14 02/24/25 10:14 02/24/25 10:16 Narrative: General: Intubated and sedated Heart: S1-S2, no rub Lung: Bilateral rhonchi Abdomen: Soft, positive bowel sounds Extremities: 2+ pitting edema extending cephalad to mid thighs Head: Atraumatic, normocephalic Ear: No gross hearing Deficit or external ear redness Eyes: No pallor or redness Neck: No JVD or visible mass Skin: No rashes , warm to touch 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: Intubated and sedated Musculoskeletal: No swelling or limitation of movement of the large joints Results - Nephrology Radiology Impressions Impressions - last 24 hours: Any impression(s) listed above is documentation that was entered by the reading physician into a diagnostic report(s) for Leander Decker. I have reviewed the report(s) and am incorporating any findings in the treatment plan of this patient where applicable. A&P - Nephrology Assessment/Plan (1) Cardiac arrest: Assessment/Problem Details: Patient had cardiac arrest likely secondary to acute volume overload state and CHF (2) End-stage renal disease needing dialysis: Assessment/Problem Details: Patient has ESRD secondary to hypertensive nephrosclerosis on hemodialysis sinceMay 2021 and currently receives it at [place] on TTS schedule. Patient will need CRRT here today (3) Hypertensive kidney disease with chronic kidney disease stage V: Assessment/Problem Details: Patient has significant edema, and mildly elevated blood pressure on admission (4) Acute on chronic respiratory failure with hypoxia and hypercapnia: Assessment/Problem Details: Patient has hypoxemia on admission secondary to volume overload and CHF (5) Anemia of renal disease: Assessment/Problem Details: He receives IV iron as with dialysis. (6) Secondary hyperparathyroidism: Assessment/Problem Details: He has a secondary hyperparathyroidism and takes sevelamer at home. He also receives IV Zemplar with dialysis. (7) Benign hypertension with end-stage renal disease: Assessment/Problem Details: His blood pressure is high. He appears to be hypervolemic on exam. Plan * Will do emergent dialysis due to the fluid overload * Monitor daily labs and renal function * Continue at home blood pressure medications * Continue home dose of the sevelamer. * Continue home dose of the IV Zemplar. * Will continue home dose of the IV Aranesp with hemodialysis. * Check CBC and renal function daily * Thank for the consult. Will continue follow with you. Please feel free [place] any question. Patient was seen and examined with the resident. Labs are reviewed and plan wasdiscussed in detail as above. In summary this is a 54-year-old male well- known to me from outpatient dialysis admitted for respiratory failure with hypercapnialikely due to the fluid overload. Will arrange emergent hemodialysis. Documented By: Junior Mayo MD 02/24/25 1034 Signed By: <Electronically signed by Junior Mayo MD> 02/24/25 1246 <Electronically signed by DO COLIN Bryan> 02/24/25 [address] [facility] Work Phone: 1(658) 470-101705-13-2025 Consult note Author Pablo Valdez [facility] Note Date/Time February 24, 2025 12:26 pm [facility] [address] [place] [address] Pulmonology Consult Note Signed Patient: Leander Decker MR#: [id number] : 1970 Acct:[id number] Age/Sex: 54 / M Adm Date: 5 Loc: Room: [address] [place] [address] Type: ADM IN Attending Dr: Irwin Theodore MD Copies to: MD Pablo Mcgarry MD Rebekah M Farris, DO, RES Shantell Osei, [facility]-~ HPI Date/Time of Consultation: Date of Service: 02/24/2025 Time of Service: 11:49 Consulting Provider: Pablo Valdez Requesting Provider: Irwin Theodore History of Present Illness History of present illness: Mr. Decker is a 54yo male with a PMH of CKD on dialysis (, , Sun), HTN, HLD, COPD, hypothyroidism, and STEFANIE who presents as a transfer from [facility] intubated and sedated and due for dialysis. History is obtained from Win chart as well as girlfriend and sister who were at the bedside. Patient underwent full dialysis session on Sunday and had been feeling well since. On Sunday, he had been more thirsty than normal and might have drank more fluids than he is supposed to. His girlfriend reports he typically abides by his fluid restriction but also reports that he has been admitted to the ICU and intubated for similar episodes approx 4-5 times over the last year. Around 3:00 this morning, he called his daughter because he was having severe shortnessof breath. She called EMS because he was not able to walk. When EMS hooked himup to the monitor, he became unresponsive and there was some question of a loss of pulse so he did receive some chest compressions and a pulse was reobtained. He was bagged by EMS and intubated in the [place] ER. ABG there showed 7.08/80.4/428 on 20, 500, 100%, 5. Labs also showed WBC 12.9, Hgb 10.3, Plts 524, Na 135, K 5.0, CO2 24.7, BUN 68, Cr 12.96, BNP > 35,000, and trop 30. EKG showed sinus tachycardia with hyperacute T waves and otherwise nonspecific ST changes. Chest x-ray demonstrated signs concerning for acute pulmonary edema. Upon arrival to [facility], he is normotensive, normocardic, afebrile, with oxygen saturation of 100% on the ventilator. FiO2 here decreased to 45%. Review of Systems Review of Systems Unobtainable due to endotracheal tube [facility] Medical History (Updated 02/24/25 @ 11:29 by Vj Means DO, RES) Hypertension Hyperlipidemia COPD exacerbation Anemia of renal disease Vitreous floaters of both eyes Vitamin D deficiency Thyroid nodule Primary insomnia Plantar wart of left foot Other specified hypothyroidism Obstructive sleep apnea (adult) (pediatric) Neuropathy Nephrolithiasis Hyperparathyroidism High cholesterol Hemodialysis access, AV graft Essential hypertension Dyslipidemia Dependence on renal dialysis DDD (degenerative disc disease), cervical COPD with acute exacerbation Carotid stenosis, bilateral BMI 31.0-31.9,adult Autoimmune thyroiditis Asymptomatic stenosis of left carotid artery Acute on chronic respiratory failure with hypercapnia Leukocytosis Arteriovenous fistula of left upper extremity failed [...] mobile home Meds Medications and Allergies Allergies No Known Allergies Allergy (Verified 02/23/25 11:05) Iodinated Contrast Media Adverse Reaction (Severe, Verified 02/23/25 11:05) Unknown Reaction Home Medications atorvastatin 40 mg tablet (Lipitor) 40 mg PO DAILY 12/05/21 [History Confirmed 02/23/25] sevelamer carbonate 800 mg tablet (Renvela) 1,600 mg PO TIDWM 07/11/22 [History Confirmed 02/23/25] hydralazine 100 mg tablet 100 mg PO BID 08/24/22 [History Confirmed 02/23/25] vitamin B complex-vitamin C-folic acid 0.8 mg tablet (Nephro-Vianca) 1 tab PO DAILY 03/01/23 [History Confirmed 02/23/25] gabapentin 300 mg capsule 300 mg PO BID 05/22/23 [History Confirmed 02/23/25] amlodipine 5 mg tablet 5 mg PO DAILY #30 tabs 01/09/24 [Rx Confirmed 02/23/25] levothyroxine 112 mcg tablet 100 mcg (0.8929 x 112 mcg) PO DAILY #90 tabs 01/14/24 [Rx Confirmed 02/23/25] minoxidil 10 mg tablet See Rx Instructions .Route .COMPLEX #180 tabs 04/11/24 [Rx Confirmed 02/23/25] lisinopril 20 mg tablet See Rx Instructions .Route .COMPLEX #180 tabs 04/17/24 [Rx Confirmed 02/23/25] furosemide 40 mg tablet See Rx Instructions .Route .COMPLEX #180 tabs 07/07/24 [Rx Confirmed 02/23/25] carvedilol 25 mg tablet See Rx Instructions .Route .COMPLEX #180 tabs 10/24/24 [Rx Confirmed 02/23/25] aspirin 81 mg tablet,delayed release (Adult Low Dose Aspirin) 81 mg PO DAILY 02/23/25 [History Confirmed 02/23/25] clopidogrel 75 mg tablet 75 mg PO DAILY 02/23/25 [History Confirmed 02/23/25] Exam Physical Exam Vital Signs: Temp Pulse Resp BP Pulse Ox O2 Del Method FiO2 97.7 F 78 20 123/75 100 Mechanical Ventilation 45 02/24/25 10:15 02/24/25 11:30 02/24/25 11:00 02/24/25 11:30 02/24/25 11:00 02/24/25 11:00 02/24/25 11:00 Narrative: Constitutional: intubated and sedated, no acute distress, nontoxic appearing HEENT: normocephalic, atraumatic, EOMI, conjunctiva clear, mucous membranes moist Heart: RRR, no murmurs, rubs, gallops Lungs: CTA b/l, no wheezes or rales Abdomen: soft, nontender, nondistended MSK: no joint swelling or erythema noted Extremities: minimal pitting edema Neuro: intubated and sedated Skin: warm and dry Psych: sedated Results - Pulmonology Intake and Output I&O - Last 24 Hours: Intake & Output 02/23/25 02/24/25 02/24/25 23:59 07:59 15:59 Weight 88.9 kg Assessment/Plan (1) Acute on chronic respiratory failure with hypercapnia: (2) Pulmonary edema due to fluid overload: (3) Obstructive sleep apnea (adult) (pediatric): Plan Mr. Decker is a 54yo male with a PMH of CKD on dialysis (, , Sun), HTN, HLD, COPD, hypothyroidism, and STEFANIE who is admitted for acute hypoxic respiratoryfailure. Acute hypoxic respiratory failure Hypertensive emergency - nephrology consultation noted and appreciated. dialysis has begun prior to evaluating patient and will likely be of the most benefit to him - will obtained repeat ABG and CXR this afternoon after dialysis has concluded - important to maintain control of BP after dialysis Case discussed and patient seen on rounds in conjunction with Dr. Kidd. Patient was examined but is intubated and sedated. Vital signs and labs were reviewed. Exam is notable for 7.0 mm ID ET tube.. Cardiovascular exam was regular without murmur or gallop. Abdomen is soft extremities reveal trace edema. I agree with the note above patient has longstanding history of hypertension and end-stage renal disease on 3 times per week dialysis in addition to reported obstructive sleep apnea admitted with by description flash pulmonary edema requiring intubation. There is question of whether patient required CPR and notably was warmed when noted to be hypothermic at [place] emergency department. Patient does follow commands at time of our evaluation. He is hemodynamically stable and getting hemodialysis through AV fistula. We will check chest x-ray and ABG after dialysis and wean to extubation as tolerated I have no clear indication for treatment of infection nor COPD exacerbation at this point. When extubated, patient likely would continue to benefit from noninvasive positive pressure ventilation. We will write for routine ventilator orders as well as DVT and stress ulcer prophylaxis. Documented By: Pablo Valdez MD 5 [id number] Signed By: <Electronically signed by MD Pablo Valdez> 02/24/25 1226 <Electronically signed by DO COLIN Kidd> 02/24/25 [address] [facility] Work Phone: 1(282) 749-880105-13-2025 Progress note Author Irwin Theodore [facility] Note Date/Time February 26, 2025 2:57p m [facility] [address] [place] [address] Hospitalist Progress Note Signed Patient: Leander Decker MR#: [id number] : 1970 Acct:[id number] Age/Sex: 54 / M Adm Date: 5 Loc: Room: 2V0821-3 Type: ADM IN Attending Dr: Irwin Theodore MD Copies to: ~ Date of Service: 02/25/2025 Subjective Subjective Narrative: Patient was extubated this morning. He is awake alert oriented. He has no complaints. Blood pressure is mildly elevated. Lungs minimal crackles in bases Heart is regular Abdomen is soft Neurological nonfocal Exam Physical Exam Vital Signs: Temp Pulse Resp BP Pulse Ox O2 Del Method O2 Flow Rate 99.4 F H 97 22 153/74 H 100 Room Air 2 02/25/25 08:00 02/25/25 12:00 02/25/25 12:00 02/25/25 12:00 02/25/25 12:00 02/25/25 12:00 02/25/25 11:00 FiO2 30 02/25/25 09:04 Objective Lab Results 02/25/25 04:16 02/25/25 04:16 ABG Interpretation ABG results: 02/25/25 04:43 ABG pH 7.40 ABG pCO2 45.9 H ABG pO2 72.2 L ABG HCO3 27.5 ABG Total CO2 28.9 H ABG O2 Saturation 93.4 L ABG O2 Content 5.9 L ABG Base Excess 2.2 Meds Allergies and Active Meds Allergies Iodinated Contrast Media Adverse Reaction (Severe, Verified 02/23/25 11:05) Unknown Reaction Active Meds: Active Medications Generic Name Dose Route Start Last Admin Trade Name Freq PRN Reason Stop Dose Admin Acetaminophen 1,000 mg 02/25/25 11:55 02/25/25 12:17 Acetaminophen 500 Mg Tablet PO 02/25/26 11:54 1,000 mg Q6H PRN Administration Fever or Pain Albuterol 2.5 mg 02/25/25 10:30 Albuterol Neb 2.5 Mg/3 Ml Vial.Neb INHALATION 02/25/26 10:29 Q3H PRN Shortness Of Breath Aspirin 81 mg 02/25/25 09:00 02/25/25 08:34 Aspirin 81 Mg Tab.Chew PO 02/25/26 08:59 81 mg DAILY SHANON Administration Atorvastatin Calcium 10 mg 02/25/25 09:00 02/25/25 08:34 Atorvastatin 10 Mg Tablet OG-TUBE 02/25/26 08:59 10 mg DAILY SHANON Administration Carvedilol 12.5 mg 02/25/25 17:00 Carvedilol 12.5 Mg Tablet PO 02/25/26 16:59 BID.WITH.MEALS SHANON Clopidogrel Bisulfate 75 mg 02/25/25 09:00 02/25/25 08:34 Clopidogrel Bisulfate 75 Mg Tablet OG-TUBE 02/25/26 08:59 75 mg DAILY SHANON Administration Darbepoetin Garry 25 mcg 02/26/25 10:01 Darbepoetin Garry In Polysorbat 25 Mcg/Ml Vial IV-PUSH 02/26/26 10:00 Th@1000 [facility] Protocol Dextrose 0 gm 02/24/25 12:13 02/25/25 06:27 Dextrose 50% In Water 25 Gm/50 Ml Syringe IV-PUSH 02/24/26 12:12 25 gm PRN PRN Administration Hypoglycemia Gabapentin 300 mg 02/25/25 14:00 Gabapentin 300 Mg Capsule PO 02/25/26 13:59 DAILY SHANON Glucose 0 gm 02/24/25 12:13 Dextrose 40% Gel 15 Gm Tube PO 02/24/26 12:12 PRN PRN Hypoglycemia Heparin Sodium (Porcine) 3,500 unit 02/24/25 10:01 02/24/25 12:16 Heparin 10,000 Unit/10 Ml Vial IV 02/24/26 10:00 3,500 unit PRN PRN Administration Dialysis Heparin Sodium (Porcine) 1,500 unit 02/24/25 10:01 02/24/25 12:17 Heparin 10,000 Unit/10 Ml Vial IV 02/24/26 10:00 1,500 unit PRN PRN Administration Dialysis Heparin Sodium (Porcine) 5,000 unit 02/24/25 14:00 02/25/25 06:27 Heparin 5,000 Unit/Ml Vial SUBCUT 02/24/26 13:59 5,000 unit Q8HR SHANON Administration Hydralazine HCl 100 mg 02/25/25 10:43 Hydralazine 50 Mg Tablet PO 02/24/26 20:59 BID [facility] Sodium Chloride 1,000 mls @ 0 mls/hr 02/24/25 10:01 02/24/25 12:18 0.9% Sodium Chloride 1,000 Ml MISCELLANE 02/24/26 10:00 Infused .Q0M PRN Infusion Dialysis As Directed Isosorbide Mononitrate 30 mg 02/26/25 09:00 Isosorbide Mononitrate 24hr Er 30 Mg Tab.Er.24h PO 02/26/26 08:59 DAILY [facility] Levothyroxine Sodium 100 mcg 02/25/25 06:30 02/25/25 06:28 Levothyroxine 100 Mcg Tablet PO 02/25/26 06:29 100 mcg DAILY.0630 SHANON Administration Lisinopril 20 mg 02/25/25 21:00 Lisinopril 20 Mg Tablet PO 02/25/26 20:59 BID SHANON Minoxidil 10 mg 02/25/25 12:00 02/25/25 11:08 Minoxidil 2.5 Mg Tablet PO 02/25/26 11:59 10 mg DAILY SHANON Administration Nicotine 1 each 02/25/25 11:00 02/25/25 11:07 Nicotine Patch 21 Mg/24hr 1 Each Patch.Td24 TRANSDERML 04/07/25 09:01 1 each DAILY SHANON Administration Paricalcitol 9 mcg 02/24/25 10:30 02/25/25 11:08 Paricalcitol 10 Mcg/2 Ml Vial IV-PUSH 02/24/26 10:29 Not Given MoWeFr@1000 SHANON Sevelamer Carbonate 1,600 mg 02/25/25 17:00 Sevelamer Carbonate 800 Mg Tablet PO 02/25/26 16:59 TID.WITH.MEALS SHANON Sodium Chloride 0 ml 02/24/25 10:01 02/24/25 12:17 Sodium Chloride 0.9 % 10 Ml Syringe IV-PUSH 02/24/26 10:00 10 ml PRN PRN Administration Flush A&P - Hospitalist Assessment/Plan (1) Acute on chronic respiratory failure with hypoxia and hypercapnia: (2) Pulmonary edema due to fluid overload: (3) Acute renal 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 on chronic kidney disease: (4) End-stage renal disease needing dialysis: Plan # Acute on chronic respiratory failure with hypoxia and hypercapnia # Hypertensive emergency: pulmonary edema due to fluid overload in the setting of end-stage renal disease on hemodialysis Patient extubated today. Restart oral antihypertensives, adjust as needed. Advance diet Continue hemodialysis per nephrology Transferred to medical floor. Possible discharge home tomorrow. Documented By: Irwin Theodore MD 02/25/251225 Signed By: <Electronically signed by Irwin Theodore MD> 02/25/251225 [facility] Work Phone: 1(787) 492-981005-13-2025 [place] [address] Nephrology Consult Note Signed Patient: Leander Decker MR#: [id number] : 1970 Acct:[id number] Age/Sex: 54 / M Adm Date: 5 Loc: Room: [address] [place] [address] Type: ADM IN Attending Dr: Irwin Theodore MD Copies to: MD Irwin Nicole MD Mitchell Rice, DO, RES TOMÁS Jay~ Providers Consult Date: 02/24/25 Requesting Provider: Irwin Theodore MD Primary Care Provider: TOMÁS Jay HPI Reason for Consult: ESRD History of Present Illness: Mr. Decker is a 54-year-old male with relevant past medical history of ESRD on hemodialysis since February2022 and receives dialysis at [facility] [place] [facility]. Patient presented to [facility] ED earlier today on 02/24/2025 via EMS s/p cardiac arrest. History was obtained from previous HPI from [facility]. He did not miss hemodialysis on Sunday. Apparently, the patient was short of breath at home and needs to go to the hospital. He walked a couplesteps outside, and then became unresponsive. When EMS arrived, they briefly lost his pulse, and CPR was briefly initiated, but then discontinued. When he arrived to the ED he was unresponsive with respiratory distress and agonal no respirations. He was intubated in the emergency department as well as OG tube placed. His blood pressure was markedly elevated. EKG was performed and demonstrated stabilized sinus tachycardia with hyperacute T waves and otherwise nonspecific ST changes. Chest x-ray demonstrated acute pulmonary edema. ABG showed respiratory acidosis with pH 7.08 and PCO2 of 80.4. Sodium 135. Potassium 5. CO2 24.7. BUN 68 with creatinine 12.96. BNP greater than 35,000. Upon arrival to [facility], the patient is intubated and sedated. Vitals remained somewhat stable. Nephrology consulted for CRRT/hemodialysis management due to persistent volume overloaded state Review of Systems Review of Systems Unobtainable due to endotracheal tube [facility] Medical History (Updated 02/24/25 @ 11:29 by Vj Means DO, RES) Hypertension Hyperlipidemia COPD exacerbation Anemia of renal disease Vitreous floaters of both eyes Vitamin D deficiency Thyroid nodule Primary insomnia Plantar wart of left foot Other specified hypothyroidism Obstructive sleep apnea (adult) (pediatric) Neuropathy Nephrolithiasis Hyperparathyroidism High cholesterol Hemodialysis access, AV graft Essential hypertension Dyslipidemia Dependence on renal dialysis DDD (degenerative disc disease), cervical COPD with acute exacerbation Carotid stenosis, bilateral BMI 31.0-31.9,adult Autoimmune thyroiditis Asymptomatic stenosis of left carotid artery Acute on chronic respiratory failure with hypercapnia Leukocytosis Arteriovenous fistula of left upper extremity failed [...] mobile home Meds Medications & Allergies Allergies No Known Allergies Allergy (Verified 02/23/25 11:05) Iodinated Contrast Media Adverse Reaction (Severe, Verified 02/23/25 11:05) Unknown Reaction Home Medications atorvastatin 40 mg tablet (Lipitor) 40 mg PO DAILY 12/05/21 [History Confirmed 02/23/25] sevelamer carbonate 800 mg tablet (Renvela) 1,600 mg PO TIDWM 07/11/22 [History Confirmed 02/23/25] hydralazine 100 mg tablet 100 mg PO BID 08/24/22 [History Confirmed 02/23/25] vitamin B complex-vitamin C-folic acid 0.8 mg tablet (Nephro-Vianca) 1 tab PO DAILY 03/01/23 [HistoryConfirmed 02/23/25] gabapentin 300 mg capsule 300 mg PO BID 05/22/23 [History Confirmed 02/23/25] amlodipine 5 mg tablet 5 mg PO DAILY #30 tabs 01/09/24 [Rx Confirmed 02/23/25] levothyroxine 112 mcg tablet 100 mcg (0.8929 x 112 mcg) PO DAILY #90 tabs 01/14/24 [Rx Confirmed 02/23/25] minoxidil 10 mg tablet See Rx Instructions .Route .COMPLEX #180 tabs 04/11/24 [Rx Confirmed 02/23/25] lisinopril 20 mg tablet See Rx Instructions .Route .COMPLEX #180 tabs 04/17/24 [Rx Confirmed 02/23/25] furosemide 40 mg tablet See Rx Instructions .Route .COMPLEX #180 tabs 07/07/24 [Rx Confirmed 02/23/25] carvedilol 25 mg tablet See Rx Instructions .Route .COMPLEX #180 tabs 10/24/24 [Rx Confirmed 02/23/25] aspirin 81 mg tablet,delayed release (Adult Low Dose Aspirin) 81 mg PO DAILY 02/23/25 [History Confirmed 02/23/25] clopidogrel 75 mg tablet 75 mg PO DAILY 02/23/25 [History Confirmed 02/23/25] Active Medications: Active Medications Darbepoetin Garry (Darbepoetin Garry In Polysorbat 25 Mcg/Ml Vial) 25 mcg IV- PUSHTh@1000 SHANON; Protocol Stop: 02/26/26 10:00 Heparin Sodium (Porcine) (Heparin 10,000 Unit/10 Ml Vial) 3,500 unit IV PRN PRN PRN Reason: Dialysis Stop: 02/24/26 10:00 Heparin Sodium (Porcine) (Heparin 10,000 Unit/10 Ml Vial) 1,500 unit IV PRN PRN PRN Reason: Dialysis Stop: 02/24/26 10:00 Sodium Chloride (0.9% Sodium Chloride 1,000 Ml) 1,000 mls @ 0 mls/hr MISCELLANE.Q0M PRN PRN Reason: Dialysis Stop: 02/24/26 10:00 Paricalcitol (Paricalcitol 10 Mcg/2 Ml Vial) 9 mcg IV-PUSH MoWeFr@1000 SHANON Stop: 02/24/26 10:29 Sodium Chloride (Sodium Chloride 0.9 % 10 Ml Syringe) 0 ml IV-PUSH PRN PRN PRN Reason: Flush Stop: 02/24/26 10:00 Exam Physical Exam Vital Signs: Pulse Resp FiO2 86 20 45 02/24/25 10:14 02/24/25 10:14 02/24/25 10:16 Narrative: General: Intubated and sedated Heart: S1-S2, no rub Lung: Bilateral rhonchi Abdomen: Soft, positive bowel sounds Extremities: 2+ pitting edema extending cephalad to mid thighs Head: Atraumatic, normocephalic Ear: No gross hearing Deficit or external ear redness Eyes: No pallor or redness Neck: No JVD or visible mass Skin: No rashes , warm to touch 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: Intubated and sedated Musculoskeletal: No swelling or limitation of movement of the large joints Results - Nephrology Radiology Impressions Impressions - last 24 hours: Any impression(s) listed above is documentation that was entered by the reading physician into a diagnostic report(s) for Leander Decker. I have reviewed the report(s) and am incorporating any findings in the treatment plan of this patient where applicable. A&P - Nephrology Assessment/Plan (1) Cardiac arrest: Assessment/Problem Details: Patient had cardiac arrest likely secondary to acute volume overload state and CHF (2) End-stage renal disease needing dialysis: Assessment/Problem Details: Patient has ESRD secondary to hypertensive nephrosclerosis on hemodialysis sinceMay 2021 and currently receives it at [place] on TTS schedule. Patient will need CRRT here today (3) Hypertensive kidney disease with chronic kidney disease stage V: Assessment/Problem Details: Patient has significant edema, and mildly elevated blood pressure on admission (4) Acute on chronic respiratory failure with hypoxia and hypercapnia: Assessment/Problem Details: Patient has hypoxemia on admission secondary to volume overload and CHF (5) Anemia of renal disease: Assessment/Problem Details: He receives IV iron as with dialysis. (6) Secondary hyperparathyroidism: Assessment/Problem Details: He has a secondary hyperparathyroidism and takes sevelamer at home. He also receives IV Zemplar with dialysis. (7) Benign hypertension with end-stage renal disease: Assessment/Problem Details: His blood pressure is high. He appears to be hypervolemic on exam. Plan * Will do emergent dialysis due to the fluid overload * Monitor daily labs and renal function * Continue at home blood pressure medications * Continue home dose of the sevelamer. * Continue home dose of the IV Zemplar. * Will continue home dose of the IV Aranesp with hemodialysis. * Check CBC and renal function daily * Thank for the consult. Will continue follow with you. Please feel free [place] any question. Patient was seen and examined with the resident. Labs are reviewed and plan wasdiscussed in detail as above. In summary this is a 54-year-old male well- known to me from outpatient dialysis admitted for respiratory failure with hypercapnialikely due to the fluid overload. Will arrange emergent hemodialysis. Documented By: Junior Mayo MD 02/24/25 1034 Signed By: 02/24/25 1246 02/24/25 1115 [facility]05-13-2025 [place] [address] Pulmonology Consult Note Signed Patient: Leander Decker MR#: [id number] : 1970 Acct:[id number] Age/Sex: 54 / M Adm Date: 5 Loc: Room: [address] [place] [address] Type: ADM IN Attending Dr: Irwin Theodore MD Copies to: MD Pablo Mcgarry MD Rebekah M Farris, DO, RES Shantell Osei, [facility]-~ HPI Date/Time of Consultation: Date of Service: 02/24/2025 Time of Service: 11:49 Consulting Provider: Pablo Valdez Requesting Provider: Irwin Theodore History of Present Illness History of present illness: Mr. Decker is a 54yo male with a PMH of CKD on dialysis (, , Sun), HTN, HLD, COPD, hypothyroidism, and STEFANIE who presents as a transfer from [facility] intubated and sedated and due for dialysis. History is obtained from [facility] chart as well as girlfriend and sister who were at the bedside. Patient underwent full dialysis session on Sunday and had been feeling well since. On Sunday, he had been more thirsty than normal and might have drank more fluids than he is supposed to. Hisgirlfriend reports he typically abides by his fluid restriction but also reports that he has been admitted to the ICU and intubated for similar episodes approx 4-5 times over the last year. Around 3:00 this morning, he called his daughter because he was having severe shortnessof breath. She called EMS because he was not able to walk. When EMS hooked himup to the monitor, he became unresponsive and there was some question of a loss of pulse so he did receive some chest compressions and a pulse was reobtained. He was bagged by EMS and intubated in the [facility] ER. ABG there showed 7.08/80.4/428on 20, 500, 100%, 5. Labs also showed WBC 12.9, Hgb 10.3, Plts 524, Na 135, K 5.0, CO2 24.7, BUN 68, Cr 12.96, BNP > 35,000, and trop 30. EKG showed sinus tachycardia with hyperacute T waves and otherwise nonspecific ST changes. Chest x-ray demonstrated signs concerning for acute pulmonary edema. Upon arrival to [facility], he is normotensive, normocardic, afebrile, with oxygen saturation of 100% on the ventilator. FiO2 here decreased to 45%. Review of Systems Review of Systems Unobtainable due to endotracheal tube [facility] Medical History (Updated 02/24/25 @ 11:29 by Vj Means DO, RES) Hypertension Hyperlipidemia COPD exacerbation Anemia of renal disease Vitreous floaters of both eyes Vitamin D deficiency Thyroid nodule Primary insomnia Plantar wart of left foot Other specified hypothyroidism Obstructive sleep apnea (adult) (pediatric) Neuropathy Nephrolithiasis Hyperparathyroidism High cholesterol Hemodialysis access, AV graft Essential hypertension Dyslipidemia Dependence on renal dialysis DDD (degenerative disc disease), cervical COPD with acute exacerbation Carotid stenosis, bilateral BMI 31.0-31.9,adult Autoimmune thyroiditis Asymptomatic stenosis of left carotid artery Acute on chronic respiratory failure with hypercapnia Leukocytosis Arteriovenous fistula of left upper extremity failed [...] mobile home Meds Medications and Allergies Allergies No Known Allergies Allergy (Verified 02/23/25 11:05) Iodinated Contrast Media Adverse Reaction (Severe, Verified 02/23/25 11:05) Unknown Reaction Home Medications atorvastatin 40 mg tablet (Lipitor) 40 mg PO DAILY 12/05/21 [History Confirmed 02/23/25] sevelamer carbonate 800 mg tablet (Renvela) 1,600 mg PO TIDWM 07/11/22 [History Confirmed 02/23/25] hydralazine 100 mg tablet 100 mg PO BID 08/24/22 [History Confirmed 02/23/25] vitamin B complex-vitamin C-folic acid 0.8 mg tablet (Nephro-Vianca) 1 tab PO DAILY 03/01/23 [HistoryConfirmed 02/23/25] gabapentin 300 mg capsule 300 mg PO BID 05/22/23 [History Confirmed 02/23/25] amlodipine 5 mg tablet 5 mg PO DAILY #30 tabs 01/09/24 [Rx Confirmed 02/23/25] levothyroxine 112 mcg tablet 100 mcg (0.8929 x 112 mcg) PO DAILY #90 tabs 01/14/24 [Rx Confirmed 02/23/25] minoxidil 10 mg tablet See Rx Instructions .Route .COMPLEX #180 tabs 04/11/24 [Rx Confirmed 02/23/25] lisinopril 20 mg tablet See Rx Instructions .Route .COMPLEX #180 tabs 04/17/24 [Rx Confirmed 02/23/25] furosemide 40 mg tablet See Rx Instructions .Route .COMPLEX #180 tabs 07/07/24 [Rx Confirmed 02/23/25] carvedilol 25 mg tablet See Rx Instructions .Route .COMPLEX #180 tabs 10/24/24 [Rx Confirmed 02/23/25] aspirin 81 mg tablet,delayed release (Adult Low Dose Aspirin) 81 mg PO DAILY 02/23/25 [History Confirmed 02/23/25] clopidogrel 75 mg tablet 75 mg PO DAILY 02/23/25 [History Confirmed 02/23/25] Exam Physical Exam Vital Signs: Temp Pulse Resp BP Pulse Ox O2 Del Method FiO2 97.7 F 78 20 123/75 100 Mechanical Ventilation 45 02/24/25 10:15 02/24/25 11:30 02/24/25 11:00 02/24/25 11:30 02/24/25 11:00 02/24/25 11:00 02/24/25 11:00 Narrative: Constitutional: intubated and sedated, no acute distress, nontoxic appearing HEENT: normocephalic, atraumatic, EOMI, conjunctiva clear, mucous membranes moist Heart: RRR, no murmurs, rubs, gallops Lungs: CTA b/l, no wheezes or rales Abdomen: soft, nontender, nondistended MSK: no joint swelling or erythema noted Extremities: minimal pitting edema Neuro: intubated and sedated Skin: warm and dry Psych: sedated Results - Pulmonology Intake and Output I&O - Last 24 Hours: Intake & Output 02/23/25 02/24/25 02/24/25 23:59 07:59 15:59 Weight 88.9 kg Assessment/Plan (1) Acute on chronic respiratory failure with hypercapnia: (2) Pulmonary edema due to fluid overload: (3) Obstructive sleep apnea (adult) (pediatric): Plan Mr. Decker is a 54yo male with a PMH of CKD on dialysis (, , Sun), HTN, HLD, COPD, hypothyroidism, and STEFANIE who is admitted for acute hypoxic respiratoryfailure. Acute hypoxic respiratory failure Hypertensive emergency - nephrology consultation noted and appreciated. dialysis has begun prior to evaluating patient andwill likely be of the most benefit to him - will obtained repeat ABG and CXR this afternoon after dialysis has concluded - important to maintain control of BP after dialysis Case discussed and patient seen on rounds in conjunction with Dr. Kidd. Patient was examined but is intubated and sedated. Vital signs and labs were reviewed. Exam is notable for 7.0 mm ID ET tube.. Cardiovascular exam was regular without murmur or gallop. Abdomen is soft extremities reveal traceedema. I agree with the note above patient has longstanding history of hypertension and end-stage renal disease on 3 times per week dialysis in addition to reported obstructive sleep apnea admitted with by description flash pulmonary edema requiring intubation. There is question of whether patient required CPR and notably was warmed when noted to be hypothermic at [facility] emergency department. Patient does follow commands at time of our evaluation. He is hemodynamically stable and getting hemodialysis through AV fistula. We will check chest x-ray and ABG after dialysis and wean to extubationas tolerated I have no clear indication for treatment of infection nor COPD exacerbation at this point. When extubated, patient likely would continue to benefit from noninvasive positive pressure ventilation. We will write for routine ventilator orders as well as DVT and stress ulcer prophylaxis. Documented By: Pablo Valdez MD 5 [id number] Signed By: 02/24/25 1226 02/24/25 1221 [facility]05-12-2025 Evaluation note* Diagnosis Onset Date Resolution Status Admit Date End-stage renal disease (ESRD) delet ed February 23, 2025 11:02am Acute on chronic respiratory failure with hypercapnia acute February 10:04am Acute on chronic respiratory failure with hypoxia and hypercapnia acute February 24, 2025 10:04am Acute renal failure superimp osed on chronic kidney disease acute February 24, 2025 10:04am Anemia of renal disease acute M ay 2024 10:04am Benign hypertension with end -stage renal disease acute February 24, 2025 10:04am Cardiac arrest acute February 24, 2025 10:04am End-stage renal disease need ing dialysis acute February 24, 2025 10:04am Hypertensive kidney disease with chronic kidney disease stage V acute M ay 2024 10:04am Obstructive sleep apnea (lamonte lt) (pediatric) acute February 24, 2025 10:04am Pulmonary edema due to fluid overload acute February 24, 2025 10:04am Secondary hyperparathyroidism acute February 24, 2025 10:04am [facility] Work Phone: 1(158) 237-432805-05-2025 [facility]Un[facility] Evaluation note* Diagnosis Onset Date Resolution Status Admit Date Hemodialysis access, AV graft acute February 05, 2025 12:50pm End-stage renal disease (ESRD) delet ed February 23, 2025 11:02am Acute on chronic respiratory failure with hypercapnia resolved February 10:04am Acute on chronic respiratory failure with hypoxia and hypercapnia resolved February 24, 2025 10:04am Acute renal failure superimp osed on chronic kidney disease resolved February 242024 10:04am Anemia of renal disease resolved M ay 2024 10:04am Benign hypertension with end -stage renal disease resolved February 24, 2025 10:04am Cardiac arrest resolved February 24, 2025 10:04am End-stage renal disease need ing dialysis resolved February 24, 2025 10:04am Hypertensive kidney disease with chronic kidney disease stage V resolved M ay 2024 10:04am Obstructive sleep apnea (lamonte lt) (pediatric) resolved February 24, 2025 10:04am Pulmonary edema due to fluid overload resolved February 24, 2025 10:04am Secondary hyperparathyroidism resolv ed February 24, 2025 10:04am [facility] Work Phone: 1(115) 174-889804-22-2025 History of Present illness Narrative* Darby Sanches, KARYNA - 02/03/2025 11:25 AM EDT Images from the original note were not included. [address] , [address] [facility], [address] P: [phone] F: [phone] HPI Historian of HPI: patient Leander Decker is a 54 y.o. male who presents today to the Urgent Care with the following complaintsand denials which have been present for 5 [...] driving himself to call 911 if his sxworsen on the way to ER and pt verb understanding. documented in this encounterSoutheast Missouri Community Treatment [id number] NoteUnC[facility]12-10-2024 NoteRN went over AVS with patient-no questions at this time. Papers signed and patient wheeled to main lobby with belongings and assisted to daughter's car. [facility]12-10-2024 Note3.5 hr tx, 3.2kg off, 3000 epo given, pt tolerated well, 2k bathUnCleveland Clinic Lutheran Hospital11-07-2024 History of Present illness Narrative* Allison Serrano DPM - 08/21/2024 1:00 PM EST Images from the original note were not included. HPI: Leander Decker states they have noticed lesions on the [...] start as small fluid filled blisters and thereis evidence of a small intact blisters to [...] to Juan for further evaluation. Referral was placedand patient will be contacted on further scheduling. documented in this encounterSoutheast Missouri Community Treatment [id number] NoteUnCleveland Clinic Luther[facility] Hospital10-04-2024 NoteUnCleveland Clinic [facility] Hospital09-30-2024 Note [facility]09-13-2024 NoteSub[facility]08-21-2024 NoteUnC[facility] Clinic Luther[facility] Hospital08-17-2024 Note [facility]08-17-2024 NoteUnCleveland Clinic Luther[facility] Hospital08-17-2024 NoteSub[facility]08-17-2024 Note3.2kg removed over 3 hour treatment via L AVG. No issues.[facility]08-17-2024 NoteSub[facility]08-17-2024 Note [facility]08-16-2024 NoteUnC[facility] Luther[facility] Hospital08-16-2024 NoteUnC[facility]08-16-2024 Note [facility]08-16-2024 NoteUnC[facility] Hospital08-16-2024 NoteUnC[facility]08-16-2024 Note [facility]08-16-2024 NoteSub[facility]-16-2024 NoteSub[facility]2024 Note [facility]2024 NoteSub[facility]2024 NoteUnC[facility] Hospital2024 Note [facility]2024 NoteSub[facility]2024 NoteSub[facility]2024 Note [facility]08-14-2024 NoteUnCleveland Clinic Luther[facility] Hospital08-14-2024 NoteUnCleveland Clinic Luther[facility] Hospital08-13-2024 Note [facility]08-13-2024 NoteSub[facility]08-13-2024 NoteSub[facility]07-14-2024 History of Present illness Narrative* Chago Stewart MD - 04/27/2024 12:12 PM EDT Images from the original note were not included. SUBJECTIVE Patient was seen and examined. Patient remains hemodynamically stable. He was dialyzed yesterday and 4 L were removed during dialysis. He is 1 kg below his dry weight. His blood pressure is now undergood control and systolic blood pressure was 140 [...] underlying coronary artery disease and diastolic dysfunction. Patientwas dialyzed on 4 L of fluid was [...] to drink less fluid and gain less inbetween dialysis 3. He will try and leave weight needs to be further challenge as an outpatient 4. Follow-up with primary collections assistant Please do not hesitate to call with questions. * Jared Whitley RN - 04/27/2024 12:01 PM EDT Patient's discharge instructions reviewed and given to patient. Patient verbalizes understanding ofdischarge. Patient awaiting daughter for pickup. * Noy Chong RN - 04/26/2024 6:45 PM EDT Dialysis Post Treatment Note Vitals: 04/26/24 1830 [...] complaints. VS remained stable throughout. Update given Samir QUEEN. * Noy Chong RN - 04/26/2024 2:56 PM EDT Dialysis Time Out To be done by [...] patient to ask questions. documented in this encounterBON [facility]06-[facility]-2024 NoteUnCleveland [facility]05-29-2024 [facility]Sub[facility] 03-12-2024 NoteSub[facility]03-27-2024 Discharge summary Author Jersey Sharp [facility] January 09, 2024 10:30am Note Date/Time January 09, 2024 10: 27am [facility] [address] [place] [address] Discharge Summary Signed Patient: Leander Decker MR#: [id number] : 1970 Acct:[id number] Age/Sex: 53 / M Adm Date: 4 Loc: Room: [address] [place] [address]: Jersey Sharp MD Copies to: MD Shantell Omalley, [facility]~ Providers Date of Discharge: 01/09/24 Discharging Provider: Jersey Sharp Primary Care Provider: Shantell Osei Consults: 01/08/24 21:06 Consult to Sleep Lab Routine Comment: Physician Instructions: 01/08/24 22:14 Consult to Pulmonology Routine Comment: Consulting Provider: [facility] - Pulmon, CC & Sleep Med Reason For Exam: Critical Care Management Has Provider Been Notified: Yes Date of Notification: 01/09/24 Time of Notification: 09:00 01/08/24 22:19 Consult to Nephrology Routine Comment: Consulting Provider: [facility] - Nephrology Has Provider Been Notified: Yes Date [...] listed Summary Hospital Course Hospital course: Mr Decker is a 53-year-old gentleman with end-stage kidney disease on hemodialysis. The patient missed his dialysis yesterday due to an appointment in [place]. He came with shortness of breath. He [...] ask her primary care doctor to obtain [facility] record entirely to address abnormalities seen [...] % (Auto) 81.4, Lymph % (Auto) 7.2, Surry % (Auto) 5.4, Eos % (Auto) 4.9, Baso % (Auto) 1.1, Nucleat RBC Rel Count 0.2, Neut # (Auto) 9.2 H, Lymph # (Auto) 0.8 L, Surry # (Auto) 0.6, Eos # (Auto) 0.6 [...] % (Auto) 91.7, Lymph % (Auto) 2.6, Surry % (Auto) 3.2, Eos % (Auto) 2.4, Baso % (Auto) 0.1, Nucleat RBC Rel Count 0.0, Neut # (Auto) 16.2 H, Lymph # (Auto) 0.5 L, Surry # (Auto) 0.6, Eos # (Auto) 0.4, [...] ask your primary care provider to obtain [facility] records entirely to follow up on all of the abnormal physical, laboratory, and imaging findings that I have not addressed. Please return back to the emergency room or seek medical attention if your symptoms worsen or return. Discharging you from [facility] does not mean that your [...] signed by Jersey Sharp MD> 01/09/24 10[address] [facility] Work Phone: 1(438) 731-805503-27-2024 History and physical note Author Percy Herrera [facility] January 08, 2024 10:52pm Note Date/Time January 08, 2024 10: 52pm [facility] [address] [place] [address] Hospitalist H&P Signed Patient: Leander Decker MR#: [id number] : 1970 Acct:[id number] Age/Sex: 53 / M Adm Date: 4 Loc: Room: [address] [place] [address] Type: ADM IN Attending Dr: Jose Luis Musa MD Copies to: MD Jose Luis Bernal MD Stephanie Breault, [facility]-~ HPI DATE OF EXAMINATION: 01/08/24 CHIEF COMPLAINT: dyspnea HISTORY OF PRESENT ILLNESS: 53 year old man with history of ESRD on HD TTS, HTN, DLD, hypothyroidism, PVD, and COPD on nocturnal bipap who presented to [place] ED complaining of acute onset of dyspnea earlier on the date of presentation Per the patient he last had a dialysis treatment on Thursday 01/04. He was to have an appointment with a physician this afternoon, and had moved his dialysis treatment to sunday morning to accommodate this. around 1 pm, however, the patient developed acute respiratory distress and was brought to [place] ED for evaluation- vital signs on arrival [...] additional complaints, except as documented [facility] Medical History Arteriovenous fistula of left upper [...] days): 2 Documented By: Percy Herrera MD 01/08/242 Signed By: <Electronically signed by Percy Herrera MD> 01/08/24 9189 [facility] Work Phone: [phone]) 883-507901-31-2024 Evaluation note* Encounter Date Diagnosis Assessment Notes [...] podiatry would be bst to manage this. [facility] Other 08-01-2023 Evaluation note* Encounter Date Diagnosis Assessment Notes Treatment Notes Treatment Clinical Notes May, Dyshidrotic eczema (ICD-10 - L30.1) Discussed with patient exam is consistent with dyshidrotic eczema. Discussed exact cause of flare is not known but could be related to chemical exposure. Advise should avoid excessive drying chemicals such as hand rug dyer helper, washing hands frequently. Discussed use of emollient [...] Other Eczema (atopic dermatitis) material was printed [facility] Other 02-16-2023 Evaluation note* Encounter Date Diagnosis Assessment Notes Treatment Notes Treatment Clinical Notes Nov, Sebaceous cyst (ICD-10 - L72.3) Referral put in as discussed. Nov, Colon cancer screening (ICD-10 - Z12.11) Referral for Gastro put in as discussed. [facility] Other 12-14-2022 Evaluation note* Encounter Date Diagnosis [...] should resolve over the next few months. [facility] Other 11-30-2022 Evaluation note* Encounter Date Diagnosis [...] IV antibiotic therapy as given by his collections assistant. The cellulitis is improved overall. He continues [...] left CEA about 8 months ago in [place]. There is slight elevation in peak systolic [...] agrees with this plan, denies any questions. [facility] Other 10-18-2022 Evaluation note* Encounter Date Diagnosis [...] be aware the nature of the procedure. [facility] Other 09-27-2022 [facility]* Encounter Date Diagnosis [...] will schedule this in the near future. [facility] Other 09-15-2022 Evaluation note* Encounter Date Diagnosis Assessment Notes Treatment Notes Treatment Clinical Notes Jun, Preop testing (ICD-10 - Z01.818) [facility] Other 08-24-2022 Evaluation note* Encounter Date Diagnosis [...] Hypotension, unspecified hypotension type (ICD-10 - I95.9) [facility] Other 08-23-2022 Evaluation note* Encounter Date Diagnosis Assessment Notes Treatment Notes Treatment Clinical Notes May, DDD (degenerative disc disease), cervical (ICD-10 - M50.30) [facility] Other 08-11-2022 Evaluation note* Encounter Date Diagnosis Assessment Notes Treatment Notes Treatment Clinical Notes May, DDD (degenerative disc disease), cervical (ICD-10 - M50.30) [facility] Other 07-18-2022 Evaluation note* Encounter Date Diagnosis Assessment Notes Treatment Notes Treatment Clinical Notes Apr, DDD (degenerative disc disease), cervical (ICD-10 - M50.30) [facility] Other 05-26-2022 Evaluation note* Encounter Date Diagnosis Assessment Notes Treatment Notes Treatment Clinical Notes February, Asymptomatic stenosis of left carotid artery (ICD-10 - I65.22) I did review the patient's carotid duplex with him today. This is a postop surveillance study which revealed that there was no stenoses at this time. Everything looks good from the repair done in [place]. We will need to repeat that study [...] right-handed. We will plan this is a [facility] local outpatient case in the next few [...] and is able to chew and swallow. [facility] Other 05-26-2022 Evaluation note* Encounter Date Diagnosis Assessment Notes Treatment Notes Treatment Clinical Notes February, Pre-op testing (ICD-10 - Z01.818) [facility] Other 05-12-2022 Evaluation note* Encounter Date Diagnosis Assessment Notes Treatment Notes Treatment Clinical Notes February, Primary insomnia (ICD-10 - F51.01) May start with half tablet for first 2 weeks then increase to 1 tablet at bedtime [facility] Other 04-26-2022 Evaluation note* Encounter Date Diagnosis [...] the patient to follow a low-salt diet [facility] Other 03-23-2022 Evaluation note* Encounter Date Diagnosis [...] he is due from his procedure in [place]. [facility] Other 03-23-2022 Evaluation note* Encounter Date Diagnosis Assessment Notes Treatment Notes Treatment Clinical Notes Dec, Pre-op testing (ICD-10 - Z01.818) [facility] Other 03-14-2022 Evaluation note* Encounter Date Diagnosis Assessment Notes Treatment Notes Treatment Clinical Notes Dec, CKD (chronic kidney disease) stage 4, GFR 15-29 ml/min (ICD-10 - N18.4) [facility] Other 03-07-2022 Evaluation note* Encounter Date Diagnosis Assessment Notes Treatment Notes Treatment Clinical Notes Dec, CKD (chronic kidney disease) stage 4, GFR 15-29 ml/min (ICD-10 - N18.4) [facility] Other 03-03-2022 Evaluation note* Encounter Date Diagnosis [...] with the importance of 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 He [...] have advised him to adequately hydrate himself. [facility] Other 02-14-2022 Evaluation note* Encounter Date Diagnosis Assessment Notes Treatment Notes Treatment Clinical Notes Nov, Chronic kidney disease, stage III (moderate) (ICD-10 - N18.30) Nov, Aidan hy kid w cr kid I-IV (ICD-10 - I12.9) Nov, Nephrolithiasis (ICD-10 - N20.0) Nov, Anemia of renal disease (ICD-10 - D63.1) [facility] Other 02-14-2022 Evaluation note* Encounter Date Diagnosis Assessment Notes Treatment Notes Treatment Clinical Notes Nov, CKD (chronic kidney disease) stage 4, GFR 15-29 ml/min (ICD-10 - N18.4) Nov, Essential hypertension (ICD-10 - I10) Nov, Aidan hy kid w cr kid I-IV (ICD-10 - I12.9) [facility] Other 02-12-2022 Evaluation note* Encounter Date Diagnosis Assessment Notes Treatment Notes Treatment Clinical Notes Nov, Chronic kidney disease, stage 3a (ICD-10 - N18.31) Nov, Bilateral leg edema (ICD-10 - R60.0) [facility] Other 01-19-2022 Evaluation note* Encounter Date Diagnosis Assessment Notes Treatment Notes Treatment Clinical Notes Oct, CKD (chronic kidney disease) stage 4, GFR 15-29 ml/min (ICD-10 - N18.4) [facility] Other 12-02-2021 Evaluation note* Encounter Date Diagnosis Assessment Notes Treatment Notes Treatment Clinical Notes Sep, Aidan fenton kid I-IV (ICD-10 - I12.9) Blood pressure [...] have advised him to adequately hydrate himself. [facility] Other 11-04-2021 Evaluation note* Encounter Date Diagnosis Assessment Notes Treatment Notes Treatment Clinical Notes Aug, Aidan fenton kid I-IV (ICD-10 - I12.9) Blood pressure [...] have advised him to adequately hydrate himself. [facility] Other 11-01-2021 Evaluation note* Encounter Date Diagnosis Assessment Notes Treatment Notes Treatment Clinical Notes Aug, Chronic kidney disease, stage III (moderate) (ICD-10 - N18.30) [facility] Other 10-25-2021 Evaluation note* Encounter Date Diagnosis Assessment Notes Treatment Notes Treatment Clinical Notes Jul, CKD (chronic kidney disease) stage 4, GFR 15-29 ml/min (ICD-10 - N18.4) [facility] Other 10-15-2021 NoteMR#: [id number] [facility] Pt. Name: Leander Decker Admitted: 07/22/2021 Discharged: 07/23/2021 Date of : [...] Coffey PA-C Date Trans: 07/29/2021 07:54 A/jacob [id number] [facility]10-14-2021 Evaluation note* Encounter Date Diagnosis Assessment Notes Treatment Notes Treatment Clinical Notes Jul, Cerebrovascular accident (CVA) due to other mechanism (ICD-10 - I63.89) Jul, Essential (primary) hypertension (ICD-10 - I10) Continue current medication and keep Dr Mayo informed about blood pressures and ordered. Jul, Autoimmune thyroidit is (ICD-10 - E06.3) Jul, DDD (degenerative di sc disease), cervical (ICD-10 - M50.30) [facility] Other 10-07-2021 Evaluation note* Encounter Date Diagnosis [...] have advised him to adequately hydrate himself. [facility] Other 09-01-2021 History of Present illness Narrative* [...] upcoming CEA surgery and being under anesthesia. [id number] Work Phone: chiqs complaint Narrative - Reported* The patient presents to the office today for an initial evaluation. * Recent stroke [id number] Work Phone: consult note Author Toby [place] [facility] January 09, 2024 11:25am Note Date/Time January 09, 2024 11: 25am [facility] [address] [place] [address] Nephrology Consult Note Signed Patient: Leander Decker MR#: [id number] : 1970 Acct:[id number] Age/Sex: 53 / M Adm Date: 4 Loc: Room: [address] [place] [address] Type: ADM IN Attending Dr: Jersey Sharp MD Copies to: MD Jersey Mehta MD Stephanie Breault, FNP-BC~ Providers Consult Date: 01/09/24 Requesting Provider: Jersey Sharp MD Primary Care Provider: TOMÁS Jay HPI Reason for Consult: Hyperkalemia and volume overload History of Present Illness: Mr. Decker is a 53-year-old white gentleman with history of ESRD related to HTN onhemodialysis since February 2022. Patient currently gets dialysis at [place] [facility] [place] schedule. Last hemodialysis was on Thursday 01/04 and he was supposed to have dialysis yesterday however he has an appointment with the physician and he moved his dialysis to the following day Sunday morning. Apparently, patient developed significant shortness of breath and he presented to [place] ED for evaluation. He was found to be hypoxemic with pulse ox 72% on 5 L oxygen and he was immediately started on BiPAP. Chest x-ray showed bilateral perihilar opacities with pulmonary edema. Potassium was elevated 6.5 mEq/L. Patient had urgent treatment for hyperkalemia and he was transferred to [facility] for urgent dialysis. On arrival, [...] noted below or in HPI [facility] Medical History Arteriovenous fistula of left upper [...] physician into a diagnostic report(s) for Leander Decker. I have reviewed the report(s) and am [...] since February 2022 currently gets dialysis at [facility] on TTS schedule. Patient rescheduled on [...] <Electronically signed by MD Toby Venegas> 01/09/24 1121 [facility] Work Phone: Discharge summary Author Irwin Theodore [facility] Note Date/Time February 26, 2025 2:55p m [facility] [address] [place] [address] Discharge Summary Signed Patient: Leander Decker MR#: [id number] : 1970 Acct:[id number] Age/Sex: 54 / M Adm Date: 5 Loc: Room: [address] [place] [address]: Irwin Theodore MD Copies to: MD Shantell Mcgarry, [facility]~ Providers Date of Discharge: 02/26/25 Discharging Provider: Irwin Theodore Primary Care Provider: Shantell Osei Consults: 02/24/25 10:51 Consult to Nephrology Routine Comment: Consulting Provider: [facility] - Nephrology Has Provider Been Notified: Yes Date of Notification: 02/24/25 Time of Notification: 11:11 Reason for Consult: Dialysis Treatment Consult to Pulmonology Routine Comment: Consulting Provider: [facility] - [place], CHARLENE & Sleep Med Reason For Exam: vent management Has Provider Been Notified: Yes Date of Notification: 02/24/25 Time of Notification: 11:13 Discharge Diagnosis Final Diagnosis Final Discharge Diagnosis: Hypertensive emergency with pulmonary edema and acute respiratory failure requiring mechanical ventilation, due to excessive fluid intake hemodialysis patient Chronic problems End-stage renal disease on hemodialysis, secondary hyperparathyroidism Hypertension Dyslipidemia COPD and ongoing tobacco abuse Hypothyroidism, autoimmune thyroiditis STEFANIE Cerebrovascular disease and carotid artery stenosis, TIA, endarterectomy Summary Hospital Course Hospital course: Patient is a pleasant 30-vanm[age]egz--year-old male hemodialysis, who felt very thirsty and drank a lot of water the day of presentation. He called EMS becauseof quick onset shortness of breath. On examination by EMS, he was very dyspneic, and then became unresponsive. Briefly the pulse was lost, CPR was initiated. He was transported to the ED where he was intubated, placed on mechanical ventilation, and then transferred to our facility. He was urgently dialyzed with a diagnosis of hypertensive emergency, pulmonary edema and fluid overload. Subsequently he had an uncomplicated clinical course. He was discharged home in stable condition on February 26. He will continue medications unchanged. We discussed importance of maintaining appropriate oral intake, avoid salt and water excess. Time Spent with Patient Time spent providing/coordinating discharge services (# min): 40 Discharge Plan Discharge Plan Patient Disposition: Home Activity: No Activity Restriction Diet: Renal and Low-Sodium Additional Instructions: Continue Hemodialysis as scheduled. Maintain a fluid restriction as directed by Nephrology. Instructions: Know your Meds Prescriptions: New nicotine 21 mg/24 hr patch 24 hour 1 patch transdermal DAILY Qty: 28 3RF Continued furosemide 40 mg tablet See Rx Instructions .ROUTE .COMPLEX Qty: 180 1RF Dose Instruction: TAKE 1 TABLET BY MOUTH TWICE A DAY AT 8AM AND 4PM Rx Instructions: TAKE 1 TABLET BY MOUTH TWICE A DAY AT 8AM AND 4PM hydralazine 100 mg tablet 100 mg PO BID Patient Comments: TAKE 1 TABLET BY MOUTH THREE TIMES A DAY gabapentin 300 mg capsule 300 mg PO QID PRN (Reason: pain) sevelamer carbonate [Renvela] 800 mg tablet 1,600 mg PO TIDWM Patient Comments: TAKE 2 TABLETS BY MOUTH 3 TIMES DAILY WITH MEALS isosorbide mononitrate 30 mg tablet extended release 24 hr 30 mg PO DAILY levothyroxine 100 mcg tablet 100 mcg PO DAILY Rx Instructions: FreeTextSig: TAKE 1 TABLET BY MOUTH EVERY MORNING ON AN EMPTY STOMACH orally qd; Note: Source Status: Taking; Refills: 1; Provider: Sea Damian lisinopril 10 mg tablet 10 mg PO BID atorvastatin 10 mg tablet 10 mg PO DAILY carvedilol 12.5 mg tablet 12.5 mg PO BID carvedilol 6.25 mg tablet 6.25 mg PO BID midodrine 5 mg tablet 5 mg PO .Three times a week PRN (Reason: during dialysis) aspirin [Adult Low Dose Aspirin] 81 mg tablet,delayed release (DR/EC) 81 mg PO DAILY clopidogrel 75 mg tablet 75 mg PO DAILY Discontinued amlodipine 5 mg tablet 5 mg PO DAILY Qty: 30 2RF Follow Up: [facility] [Outside] (Their office is currently unavailable. Please call to schedule a 5 day post hospital appointment.) Exam Physical Exam Vital Signs: Temp Pulse Resp BP Pulse Ox O2 Del Method O2 Flow Rate 98 F 93 20 141/80 H 99 Room Air 2 02/26/25 13:04 02/26/25 13:04 02/26/25 13:04 02/26/25 13:04 02/26/25 13:04 02/26/25 13:04 02/25/25 11:00 FiO2 45 02/26/25 13:04 Diagnostic Studies Completed and Pending Studies Labs on day of discharge: 02/26/25 04:59: PHA Creatinine Clear 8.74, Sodium 132 L, Potassium 4.9, Chloride 92 L, Carbon Dioxide 25.4, Anion Gap 19.5 H, BUN 54 H, Creatinine 10.05 H D, Est GFR (CKD-EPI) 5.540, Glucose 87, Estimat Average Glucose 94, Hemoglobin A1c 4.9, Calcium 8.9, Triglycerides 127, Cholesterol 128 L, LDL Cholesterol, Calc 62, VLDL Cholesterol 25, HDL Cholesterol 41, Cholesterol/HDL Ratio 3.1, TSH 3rd Generation 2.21 Documented By: Irwin Theodore MD 02/26/25 0935 Signed By: <Electronically signed by Irwin Theodore MD> 02/26/25 3514 [facility] Work Phone: evaluation noteNo Assessments Information Available [facility] Other Evaluation noteNo assessment information available [facility] Work Phone: evaluation note* Diagnosis Onset Date Resolution Status Cellulitis acute End-stage renal disease needing dialysis acute Hyperlipidemia acute Hypertension acute Hypertensive kidney disease with chronic kidney disease stage V acute Hypothyroid acute Secondary hyperparathyroidism acute [facility] Work Phone: Evaluation note* Diagnosis Onset Date Resolution Status Acute and chronic respiratory failure with hypoxia acute Acute hyperkalemia acute Acute pulmonary edema acute Anemia of renal disease acut e End-stage renal disease needing dialysis acute Hyperkalemia acute Hypertensive kidney disease with chronic kidney disease stage V acute Leukocytosis acute [facility] Work Phone: evaluation note* Diagnosis Onset Date Resolution Status Acute and chronic respiratory failure with hypoxia acute Acute hyperkalemia acute Acute pulmonary edema acute Anemia of renal disease acut e End-stage renal disease needing dialysis acute Hyperkalemia acute Hypertensive kidney disease with chronic kidney disease stage V acute [facility] Work Phone: Evaluation note* Diagnosis Psoriasis plantaris (CMS/HCC)- Primary documented in this encounter [facility] HealthcareEvaluation note* Diagnosis CKD (chronic kidney disease)- Primary Chronic kidney disease, unspecified Acute on chronic diastolic (congestive) heart failure (HCC) [facility] Diagnosis Abscess of back- Primary Cellulitis and abscess of trunk documented in this encounter [facility] HealthcareHistory general Narrative - Reported* Type Description Date Medical History hashimotos thyroiditis Medical History hypertension Medical History vitamin D deficiency Medical History hyperlipidemia Medical History SLEEP APNEA Medical History CKD Medical History Acute Kidney Injury with dialysis from [id number] 15,2021 Medical History MINI STROKE Surgical History appendectomy Surgical History cataract surgery RIGHT EYE 2016 Surgical History port in chest 03/2021 Surgical History PORT REMOVED FROM CHEST 05/2021 Hospitalization History low potassium 2017 Hospitalization History SEE ABOVE Hospitalization History kidney issues [facility] for 7 days 03/2021 Merged With [facility] Other history general Narrative - Reported* Type Description Date Medical History hashimotos thyroiditis Medical History hypertension Medical History vitamin D deficiency Medical History hyperlipidemia Medical History SLEEP APNEA Medical History CKD Medical History Acute Kidney Injury with dialysis from [id number] 15,2021 Medical History MINI STROKE Surgical History appendectomy Surgical History cataract surgery RIGHT EYE 2017 Surgical History port in chest 03/2021 Surgical History PORT REMOVED FROM CHEST 05/2021 Surgical History carotid endarterectomy 2020 Hospitalization History low potassium 2016 Hospitalization History SEE ABOVE Hospitalization History kidney issues [facility] for 7 days 03/2021 [facility] Other history general Narrative - Reported* Type Description Date Medical History hashimotos thyroiditis Medical History hypertension Medical History vitamin D deficiency Medical History hyperlipidemia Medical History SLEEP APNEA Medical History CKD Medical History Acute Kidney Injury with dialysis from [id number] 15,2021 Medical History MINI STROKE Surgical History appendectomy Surgical History cataract surgery RIGHT EYE 2016 Surgical History port in chest 03/2021 Surgical History PORT REMOVED FROM CHEST 05/2021 Surgical History LEFT carotid endarterectomy 202 1 Hospitalization History low potassium 2016 Hospitalization History SEE ABOVE Hospitalization History kidney issues [facility] for 7 days 03/2021 Hospitalization History LEFT CAROTID ENDARTERECT HUMA 07/2021 [facility] Other history general Narrative - Reported* Type Description Date Medical History hashimotos thyroiditis Medical History hypertension Medical History vitamin D deficiency Medical History hyperlipidemia Medical History SLEEP APNEA Medical History CKD Medical History Acute Kidney Injury with dialysis from [id number] 15,2021 Medical History MINI STROKE Surgical History appendectomy Surgical History cataract surgery RIGHT EYE 2017 Surgical History port in chest 03/2021 Surgical History PORT REMOVED FROM CHEST 05/2021 Surgical History LEFT carotid endarterectomy 202 1 Hospitalization History low potassium 2016 Hospitalization History SEE ABOVE Hospitalization History kidney issues [facility] for 7 days 03/2021 Hospitalization History LEFT CAROTID ENDARTERECT HUMA 07/2021 Hospitalization History kidney issues 12/06 [facility] Other history general Narrative - Reported* Type Description Date Medical History hashimotos thyroiditis Medical History hypertension Medical History vitamin D deficiency Medical History hyperlipidemia Medical History SLEEP APNEA Medical History CKD Medical History Acute Kidney Injury with dialysis from [id number] 15,2021 Medical History MINI STROKE Surgical History appendectomy Surgical History cataract surgery RIGHT EYE 2017 Surgical History port in chest 03/2021 Surgical History PORT REMOVED FROM CHEST 05/2021 Surgical History LEFT carotid endarterectomy 202 1 Surgical History hd port placement 01/03 Hospitalization History low potassium 2016 Hospitalization History SEE ABOVE Hospitalization History kidney issues [facility] for 7 days 03/2021 Hospitalization History LEFT CAROTID ENDARTERECT HUMA 07/2021 Hospitalization History kidney issues 12/06 Nicholas Haddox Records Other Hisehvp general Narrative - Reported* Type Description Date Medical History hashimotos thyroiditis Medical History hypertension Medical History vitamin D deficiency Medical History hyperlipidemia Medical History SLEEP APNEA Medical History CKD Medical History Acute Kidney Injury with dialysis from [id number] 15,2021 Medical History MINI STROKE Surgical History appendectomy Surgical History cataract surgery RIGHT EYE 2016 Surgical History port in chest 03/2021 Surgical History PORT REMOVED FROM CHEST 05/2021 Surgical History LEFT carotid endarterectomy 202 1 Surgical History hd port placement 01/03 Hospitalization History low potassium 2016 Hospitalization History SEE ABOVE Hospitalization History kidney issues Be [facility] for 7 days 03/2021 Hospitalization History LEFT CAROTID ENDARTERECT HUMA 07/2021 Hospitalization History kidney issues 12/06 Hospitalization History Kidney 02/19/20 Nicholas Haddox Records Other history general Narrative - Reported* Type Description Date Medical History hashimotos thyroiditis Medical History hypertension Medical History vitamin D deficiency Medical History hyperlipidemia Medical History SLEEP APNEA Medical History CKD Medical History Acute Kidney Injury with dialysis from [id number] 15,2021 Medical History MINI STROKE Surgical History appendectomy Surgical History cataract surgery RIGHT EYE 2017 Surgical History port in chest 03/2021 Surgical History PORT REMOVED FROM CHEST 05/2021 Surgical History LEFT carotid endarterectomy 06/16 021 Surgical History hd port placement 01/03 Hospitalization History low potassium 2016 Hospitalization History SEE ABOVE Hospitalization History kidney issues Be [facility] for 7 days 03/2021 Hospitalization History LEFT CAROTID ENDARTERECT HUMA 07/2021 Hospitalization History kidney issues 12/06 Hospitalization History Kidney 02/19/20 Nicholas Haddox Records Other history general Narrative - Reported* Type Description Date Medical History hashimotos thyroiditis Medical History hypertension Medical History vitamin D deficiency Medical History hyperlipidemia Medical History SLEEP APNEA Medical History CKD Medical History Acute Kidney Injury with dialysis from [id number] 15,2021 Medical History MINI STROKE Surgical History appendectomy Surgical History cataract surgery RIGHT EYE 2017 Surgical History port in chest 03/2021 Surgical History PORT REMOVED FROM CHEST 05/2021 Surgical History LEFT carotid endarterectomy 06/16 021 Surgical History hd port placement 01/03 Surgical History LEFT ARM AVF CREATION 06/2022 Hospitalization History low potassium 2016 Hospitalization History SEE ABOVE Hospitalization History kidney issues Be [facility] for 7 days 03/2021 Hospitalization History LEFT CAROTID ENDARTERECT HUMA 07/2021 Hospitalization History kidney issues 12/06 Hospitalization History Kidney 02/19/20 Nicholas Haddox Records Other History general Narrative - Reported* Type Description Date Medical History hashimotos thyroiditis Medical History hypertension Medical History vitamin D deficiency Medical History hyperlipidemia Medical History SLEEP APNEA Medical History CKD Medical History Acute Kidney Injury with dialysis from [id number] 15,2021 Medical History MINI STROKE Medical History [...] SEE ABOVE Hospitalization History kidney issues Be [facility] for 7 days 03/2021 Hospitalization History LEFT CAROTID ENDARTERECT HUMA 07/2021 Hospitalization History kidney issues 12/06 Hospitalization History Kidney 02/19/20 Nicholas Haddox Records Other Hospital Discharge instructions Additional Instructions DISCHARGE [...] or squeezing a rubber ball or hand recovery engineer increases the blood flow to your fistula [...] it sounds, feels, or looks! IMPORTANT NUMBERS -[facility] [phone] -[facility] Emergency Room [phone] -Nephrology [phone] -Vascular [phone] FOLLOW UP -Call your physician to schedule a post-operative appointment. [facility] Work Phone: Hospital Discharge instructions Additional Instructions I may not have addressed or treated all of your medical illnesses or the abnormal blood work or imaging studies during this hospitalization. Please ask your primary care provider to obtain [facility] records entirely to follow up on all of the abnormal physical, laboratory, and imaging findings that I have not addressed. Please return back to the emergency room or seek medical attention if your symptoms worsen or return. Discharging you from [facility] does not mean that your medical care ends here and now. You may still need additional monitoring, work up, investigation, and treatment plan to be handled from this point on by out patient providers including your primary care provider and specialists. For any medication question, please contact your retail pharmacist or your primary care provider. Thank you. Continue hemodialysis treatments as before.[facility] Work Phone: Reason for visit NarrativeF/U TO DISCUSS CAROTID US RESULTS AND DISCUSS LEFT [facility] [place] Other Summary Purpose Family History No Family [...] clotted graft February 05, 2025 12: 50pm Chief Complaint Admit Date E87.5 February 05, 2025 7:0 4am clotted graft February 05, 2025 12: 50pm clotted graft February 06, 2025 12: 00pm f/u fistulogram February 23, 2025 11:02 am Chief Complaint Admit Date E87.5 February 05, 2025 7:0 4am clotted graft February 05, 2025 12: 50pm clotted graft February 06, 2025 12: 00pm f/u fistulogram February 23, 2025 11:02 am pulmonary edema , respiratory failure Ma y 2024 10:04am pulmonary edema , respiratory failure Ma y 2024 10:34am pulmonary edema , respiratory failure Ma y 2024 11:49am Reason for Visit Admit Date End-stage renal disease (ESRD) February 23, 2025 11:02am Acute on chronic respiratory failure wit h hypercapnia February 24, 2025 10:04am Acute on chronic respiratory failure with hypoxia and hypercapnia February 24, 2025 10:04am 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 February 24, 2025 10:04am Anemia of renal disease February 24, 2025 1 0:04am Benign hypertension with end-stage renal disease February 24, 2025 10:04am Cardiac arrest February 24, 2025 10:04 am End-stage renal disease needing dialysis February 24, 2025 10:04am Hypertensive kidney disease with chronic kidney disease stage V February 24, 2025 10:04am Obstructive sleep apnea (adult) (pediatr ic) February 24, 2025 10:04am Pulmonary edema due to fluid overload Ma y 2024 10:04am Secondary hyperparathyroidism February 24, 2025 10:04am Chief Complaint Admit Date E87.5 February 05, 2025 7:0 4am clotted graft February 05, 2025 12: 50pm clotted graft February 06, 2025 12: 00pm f/u fistulogram February 23, 2025 11:02 am pulmonary edema , respiratory failure Ma y 2024 10:04am pulmonary edema , respiratory failure Ma y 2024 10:34am pulmonary edema , respiratory failure Ma y 2024 11:49am clotted graft March 10, 2025 2:00p m Reason for Visit Admit Date Hemodialysis access, AV graft January 12:50pm End-stage renal disease (ESRD) February 23, 2025 11:02am Acute on chronic respiratory failure wit h hypercapnia February 24, 2025 10:04am Acute on chronic respiratory failure with hypoxia and hypercapnia February 24, 2025 10:04am 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 February 24, 2025 10:04am Anemia of renal disease February 24, 2025 1 0:04am Benign hypertension with end-stage renal disease February 24, 2025 10:04am Cardiac arrest February 24, 2025 10:04 am End-stage renal disease needing dialysis February 24, 2025 10:04am Hypertensive kidney disease with chronic kidney disease stage V February 24, 2025 10:04am Obstructive sleep apnea (adult) (pediatr ic) February 24, 2025 10:04am Pulmonary edema due to fluid overload Ma y 2024 10:04am Secondary hyperparathyroidism February 24, 2025 10:04am Assessments No Assessments Information Available Reason for Referral Reason Eval and treat for p lantar warts on left foot Diagnosis 1 Plantar wart of left foot (B07.0) Referral Organization [facility] Infectious Dis ease Referring Provider First Name Live Referring Provider Last Name Wendy Referring Provider Specialty Infectious Disease Referred Organization [facility] Referred Provider Adrian Stark Referred Address ,[place], [place],[address] Referred Provider Specialty Unknown Referral Priority Routine Reason 01/09/23 @ 2:35pm cyst on lower lumbar area x 1 year Diagnosis 1 Sebaceous cyst (L72. 3) Referral Organization [facility] Family Medicin e Jalil Referring Provider First Name Shantell Referring Provider Last Name Sea Referring Provider Specialty Nurse Pract itioner Referred Organization [facility] Referred Provider Fitz Henson Referred Address ,[place], [place],[address] Referred Provider Specialty Dermatology Referral Priority Routine Referral Appointment Date 2023-01-09 General Notes Beverly Adamson 023 10:37:12 AM >Received today and waiting for office notes to be locked before [facility] 07:19:19 AM >[facility] Dermatology office request us to send the referral P2P to them and they will call and schedule patient. [facility] 12/13/2022 08:41:51 AM >[facility]t [facility]13[facility] 12:57:57 PM >Received letter back with appt Reason 01/10/23 @ [facility] janelel arriaga needs colonoscopy for cancer screening. Diagnosis 1 Colon cancer screeni ng (Z12.11) Referral Organization [facility] Family Medicin e Jalil Referring Provider First Name Shantell Referring Provider Last Name Sea Referring Provider Specialty Nurse Pract itioner Referred Organization [facility] Gastroenterolo gy Referred Provider Klaus Ford Referred Address [address] ,[place], [place],[address] Referred Provider Specialty Gastroentero logy Referral Priority [...] section and content) DATE CREATED AUTHOR 04/09/2018 [facility] DATE CREATED AUTHOR AUTHOR'S ORGANIZ ATION 07/14/2021 [employer] DATE CREATED AUTHOR AUTHOR'S ORGANIZ ATION 05/23/2022 [facility] DATE CREATED AUTHOR AUTHOR'S ORGANIZ ATION 08/21/2022 [facility] DATE CREATED AUTHOR AUTHOR'S ORGANIZ ATION 05/01/2024 [facility] DATE CREATED AUTHOR AUTHOR'S ORGANIZ ATION 02/04/2025 [facility]YCH[facility]ATRIC DATE CREATED AUTHOR AUTHOR'S ORGANIZ ATION 02/19/2025 [facility] DATE CREATED AUTHOR AUTHOR'S ORGANIZ ATION 03/11/2025 [facility] DATE CREATED AUTHOR AUTHOR'S ORGANIZ ATION 03/19/2025 [facility] ysician Group REASON FOR VISIT (unrecogniz [...] Active Member Role Status Dates Shantell Osei [facility] Primary Care Provider Activ e Team [...] Active Member Role Status Dates Shantell Osei [facility] Primary Care Provider Activ e Start: February 05, 2025 Toby Venegas MD Attending Provider Active Star t: February 05, 2025 Team Status: Inactive Member Role Status Dates Shantell Osei [facility] Primary Care Provider Activ e Start: February 05, 2025 End: February 05, 2025 Toby Venegas MD Attending Provider Active Star t: February 05, 2025 End: February 05, 2025 Team Status: Inactive Member Role Status Dates Shantell Osei [facility] Primary Care Provider Activ e Start: February 05, 2025 End: February 05, 2025 Gerber Short MD Attending Provider Active S tart: February 05, 2025 End: February 05, 2025 Team Status: Active Member Role Status Dates Shantell Osei [facility] Primary Care Provider Activ e Start: February 06, 2025 Gerber Short MD Attending Provider, Other Provider Active Start: February 06, 2025 Team Status: Inactive Member Role Status Dates Shantell Osei [facility] Primary Care Provider Activ e Start: February 23, 2025 End: February 23, 2025 Gerber Short MD Attending Provider Active S tart: February 23, 2025 End: February 23, 2025 Team Status: Inactive Member Role Status [...] Active Member Role Status Dates Shantell Osei [facility] Primary Care Provider Activ e Start: January 06, 2024 Junior Mayo MD Attending Provider Active Start : January 06, 2024 Team Status: Inactive Member Role Status Dates Shantell Osei [facility] Primary Care Provider Activ e Start: January 08, 2024 End: January 09, 2024 Toby Venegas MD Other Provider Active Start: [facility] 2023 End: January 09, 2024 AINSLEY Don Other Provider Active Start: January 08, 2024 End: January 09, 2024 Junior Mayo MD Other Provider Active Start: [facility] 2023 End: January 09, 2024 Baudilio Hoyos MD Other Provider Active Star t: January 08, 2024 End: January 09, 2024 Raul Malave MD Other Provider Active Start: January 08, 2024 End: January 09, 2024 Iván Govea MD Other Provider Active Start: [facility] 2023 End: January 09, 2024 Percy Herrera MD Admit Provider Active S tart: January 08, 2024 End: January 09, 2024 Jersey Sharp MD Attending Provider Active Sta rt: January 08, 2024 End: January 09, 2024 Team Status: Active Member Role Status Dates Shantell Osei [facility] Primary Care Provider Activ e Start: January 08, 2024 End: January 09, 2024 Jose Luis Musa MD Admit Provider, Othe r Provider Active Start: January 08, 2024 End: January 09, 2024 Percy Herrera MD Attending Provider Active Start: January 08, 2024 End: January 09, 2024 Martín Hampton MD Active Start: [facility] 2023 End: January 09, 2024 Team Status: Active Member Role Status Dates Shantellbrenda Osei [facility] Primary Care Provider Activ e Start: January 09, 2024 End: January 09, 2024 Toby Venegas MD Other Provider Active Start: [facility] 2023 End: January 09, 2024 AINSLEY Don Other Provider Active Start: January 09, 2024 End: January 09, 2024 Junior Mayo MD Other Provider Active Start: [facility] 2023 End: January 09, 2024 Baudilio Hoyos MD Other Provider Active Star t: January 09, 2024 End: January 09, 2024 Raul Malave MD Other Provider Active Start: January 09, 2024 End: January 09, 2024 Iván Govea MD Other Provider Active Start: [facility] 2023 End: January 09, 2024 Percy Herrera MD Admit Provider Active S tart: January 09, 2024 End: January 09, 2024 Jersey Sharp MD Attending Provider, Other Provider Active Start: January 09, 2024 End: January 09, 2024 Xin Burdick APRN [facility]- Other Provider Active Start: January 09, 2024 End: January 09, 2024 Ramirez Arango MD Other Provider Active Start: [facility] 2023 End: January 09, 2024 Pablo [...] Gomez Montes MD Other Provider Active Start: [facility] 2023 End: January 09, 2024 Louis eBll , Other Provider Active Start: January 09, 2024 End: January 09, 2024 Rey Romero DO Other Provider Active Start: January 09, 2024 End: January 09, 2024 Teri Degroot MD Other Provider Active Start: [facility] 2023 End: January 09, 2024 Jassi Arroyo MD Other Provider Active Start: January 09, 2024 End: January 09, 2024 Fatuma Kwan MD Other Provider Active Start: [facility] 2023 End: January 09, 2024 Team Status: Active Member Role Status Dates Shantell Osei , [facility] Primary Care Provider Activ e Start: January 09, 2024 End: January 09, 2024 Toby Venegas MD Attending Provider, Other Provider Active Start: January 09, 2024 End: January 09, 2024 AINSLEY Don Other Provider Active Start: January 09, 2024 End: January 09, 2024 Junior Mayo MD Other Provider Active Start: [facility] 2023 End: January 09, 2024 Baudilio Hoyos MD Other Provider Active Star t: January 09, 2024 End: January 09, 2024 Raul Malave MD Other Provider Active Start: January 09, 2024 End: January 09, 2024 Iván Govea MD Other Provider Active Start: [facility] 2023 End: January 09, 2024 Percy Herrera MD Admit Provider Active S tart: January 09, 2024 End: January 09, 2024 Jersey Sharp MD Other Provider Active Start: January 09, 2024 End: January 09, 2024 Xin Burdick APRN [facility]- Other Provider Active Start: January 09, 2024 End: January 09, 2024 Ramirez Arango MD Other Provider Active Start: [facility] 2023 End: January 09, 2024 Pablo Valdez MD Other Provider Active Start: January 09, 2024 End: January 09, 2024 Ignacio Ascencio MD Other Provider Active St art: January 09, 2024 End: January 09, 2024 Mario Kinsey , Other Provider Active Start: January 09, 2024 End: January 09, 2024 Lashon Hurtado MD Other Provider Active Start: January 09, 2024 End: January 09, 2024 Adrian Goodson MD Other Provider Active Start: January 09, 2024 End: January 09, 2024 Gomez Montes MD Other Provider Active Start: [facility] 2023 End: January 09, 2024 Louis Bell , Other Provider Active Start: January 09, 2024 End: January 09, 2024 Rey Romero DO Other Provider Active Start: January 09, 2024 End: January 09, 2024 Teri Degroot MD Other Provider Active Start: [facility] 2023 End: January 09, 2024 Jassi Arroyo MD Other Provider Active Start: January 09, 2024 End: January 09, 2024 Fatuma Kwan MD Other Provider Active Start: [facility] 2023 End: January 09, 2024 Team Status: Inactive Member Role Status Dates JOLENE Jay-MEET Primary Care Provider Activ e Start: February 07, 2024 End: February 07, 2024 Junior Mayo MD Attending Provider Active Start : February 07, 2024 End: February 07, 2024 Team Status: Inactive Member Role Status Dates JOLENE Jay-MEET Primary Care Provider Activ e Start: February 21, 2024 End: February 21, 2024 Junior Mayo MD Attending Provider Active Start : February 21, 2024 End: February 21, 2024 Team Status: Inactive Member Role Status Dates JOLENE Jay-C Primary Care Provider Active Patrice Levine MD Attending Provider Active Team Status: Active Member Role Status Dates KISHOR Jay Primary Care Provider Active Team Status: Inactive Member Role Status Dates KISHOR Jay Primary Care Provider Active Gerber Short MD Attending Provider Active Team Status: Inactive Member Role Status Dates Shantell Sea , [facility] Primary Care Provider Active Percy Herrera MD Admit Provider Active Irwin Theodore MD Attending Provider Active Toby Venegas MD Other Provider Active Team Status: Inactive Member Role Status Dates Shantell Osei [facility] Primary Care Provider Active Junior Mayo MD Attending Provider Active Team Status: Inactive Member Role Status Dates Shantell Osei [facility] Primary Care Provider Active Start: October 11, [...] Member Role Status Dates Shantell Osei [facility] Primary Care Provider Activ e Start: January 08, 2024 Jose Luis Musa MD Admit Provider, Othe r Provider Active Start: January 08, 2024 Percy Herrera MD Attending Provider Active Start: January 08, 2024 Team Status: Active Member Role Status Dates Shantell Osei [facility] Primary Care Provider Activ e Start: January 09, 2024 Toby Venegas MD Other Provider Active Start: [facility] 2023 AINSLEY Don Other Provider Active Start: January 09, 2024 Junior Mayo MD Other Provider Active Start: [facility] 2023 Baudilio Hoyos MD Other Provider Active Star t: January 09, 2024 Raul Malave MD Other Provider Active Start: January 09, 2024 Iván Govea MD Other Provider Active Start: [facility] 2023 Percy Herrera MD Admit Provider Active S tart: January 09, 2024 Jersey Sharp MD Attending Provider, Other Provider Active Start: January 09, 2024 Xin Burdick APRN [facility]- Other Provider Active Start: January 09, 2024 Ramirez Arango MD Other Provider Active Start: [facility] 2023 Pablo Valdez MD Other Provider Active Start: January 09, 2024 Ignacio Ascencio MD Other Provider Active St art: January 09, 2024 Mario Kinsey , Other Provider Active Start: January 09, 2024 Lashon Hurtado MD Other Provider Active Start: January 09, 2024 Adrian Goodson MD Other Provider Active Start: January 09, 2024 Gomez Montes MD Other Provider Active Start: [facility] 2023 Louis Bell , Other Provider Active Start: January 09, 2024 Rey Romero DO Other Provider Active Start: January 09, 2024 Teri Degroot MD Other Provider Active Start: [facility] 2023 Jassi Arroyo MD Other Provider Active Start: January 09, 2024 Fatuma Kwan MD Other Provider Active Start: [facility] 2023 Team Status: Active Member Role Status Dates Shantell Osei [facility] Primary Care Provider Activ e Start: January 09, 2024 Toby Venegas MD Attending Provider, Other Provider Active Start: January 09, 2024 AINSLEY Don Other Provider Active Start: January 09, 2024 Junior Mayo MD Other Provider Active Start: [facility] 2023 Baudilio Hoyos MD Other Provider Active Star t: January 09, 2024 Raul Malave MD Other Provider Active Start: January 09, 2024 Iván Govea MD Other Provider Active Start: [facility] 2023 Percy Herrera MD Admit Provider Active S tart: January 09, 2024 Jersey Sharp MD Other Provider Active Start: January 09, 2024 Xin Burdick APRN [facility]- Other Provider Active Start: January 09, 2024 Ramirez Arango MD Other Provider Active Start: [facility] 2023 Pablo Valdez MD Other Provider Active Start: January 09, 2024 Ignacio Ascencio MD Other Provider Active St art: January 09, 2024 Mario Kinsey , Other Provider Active Start: January 09, 2024 Lashon Hurtado MD Other Provider Active Start: January 09, 2024 Adrian Goodson MD Other Provider Active Start: January 09, 2024 Gomez Montes MD Other Provider Active Start: [facility] 2023 Louis Bell , DO Other Provider Active Start: January 09, 2024 Rey Romero , Other Provider Active Start: January 09, 2024 Trei Degroot MD Other Provider Active Start: [facility] 2023 Jassi Arroyo MD Other Provider Active Start: January 09, 2024 Fatuma Kwan MD Other Provider Active Start: [facility] 2023 [employer] Relationship Specialty Start Date End Date Shantell Osei NP [address] [place] [address] Referring Physician 08/21/24 [employer] Relationship Specialty Start Date End Date Shantell Osei NP [address] [place] [address] Referring Physician 08/21/24 Team Status: Active Member Role Status Dates Shantell Osei [facility] Primary Care Provider Activ e Start: August 07, 2024 Junior Mayo MD Attending Provider Active Start : August 07, 2024 Team Status: Active Member Role Status Dates Shantell Osei [facility] Primary Care Provider Activ e Start: September 07, 2024 Junior Mayo MD Attending Provider Active Start : September 07, 2024 Team Status: Active Member Role Status Dates Shantell Osei [facility] Primary Care Provider Activ e Start: September 14, 2024 Iván Govea MD Attending Provider Active Star t: September 14, 2024 Team Status: Inactive Member Role Status Dates Shantell Osei [facility] Primary Care Provider Activ e Start: October 31, 2024 End: October 31, 2024 Toby Venegas MD Attending Provider Active Star t: October 31, 2024 End: October 31, 2024 [employer] Relationship Specialty Start Date End Date Ace Marr DO PCP - General Family Medicine 02/11/14 Team Status: Inactive Member Role Status Dates Junior Mayo MD Attending Provider Active Start : November 15, 2024 End: November 15, 2024 [employer] Relationship Specialty Start Date End Date Norm Faustin MD [address] [address] PCP - Devoted 10/15/24 Shantell Osei NP [address] [place] [address] Referring Physician 08/21/24 Team Status: Inactive Member Role Status Dates Shantell Osei [facility] Primary Care Provider Activ e Start: February 24, 2025 End: February 26, 2025 Irwin Theodore MD Admit Provider, Atte nding Provider Active Start: February 24, 2025 End: February 26, 2025 Toby Venegas MD Other Provider Active Start: M barbra 2024 End: February 26, 2025 AINSLEY Don Other Provider Active Start: February 24, 2025 End: February 26, 2025 Junior Mayo MD Other Provider Active Start: Vida noonan 2024 End: February 26, 2025 Iván Govea MD Other Provider Active Start: M ay 2024 End: February 26, 2025 Xin Burdick APRN [facility] Other Provider Active Start: February 24, 2025 End: February 26, 2025 Pablo Valdez MD Other Provider Active Start: February 24, 2025 End: February 26, 2025 Ignacio Ascencio MD Other Provider Active St art: February 24, 2025 End: February 26, 2025 Gomez Montes MD Other Provider Active Start: 2024 End: February 26, 2025 Louis Bell , DO Other Provider Active Start: February 24, 2025 End: February 26, 2025 Rey Romero , DO Other Provider Active Start: February 24, 2025 End: February 26, 2025 Teri Degroot MD Other Provider Active Start: 2024 End: February 26, 2025 Jassi Arroyo MD Other Provider Active Start: February 24 End: February 26, 2025 Fatuma Kwan MD Other Provider Active Start: 2024 End: February 26, 2025 Vanda Mejía MD Other Provider Active Start: February 24, 2025 End: February 26, 2025 Team Status: Active Member Role Status Dates Shantell Osei , [facility] Primary Care Provider Activ e Start: February 24, 2025 Irwin Theodore MD Admit Provider, Othe r Provider Active Start: February 24, 2025 Toby Venegas MD Other Provider Active Start: 2024 AINSLEY Don Other Provider Active Start: February 24, 2025 Junior Mayo MD Attending Provider, Other Provider Active Start: February 24, 2025 Iván Govea MD Other Provider Active Start: 2024 Xin Burdick APRN [facility] Other Provider Active Start: February 24, 2025 Pablo Valdez MD Other Provider Active Start: February 24, 2025 Ignacio Ascencio MD Other Provider Active St art: February 24, 2025 Gomez Montes MD Other Provider Active Start: 2024 Louis Bell , Other Provider Active Start: February 24, 2025 Rey Romero , Other Provider Active Start: February 24, 2025 Teri Degroot MD Other Provider Active Start: 2024 Jassibriseyda Arroyo MD Other Provider Active Start: February 24 Fatuma Kwan MD Other Provider Active Start: 2024 Vanda Mejía MD Other Provider Active Start: February 24, 2025 Team Status: Active Member Role Status Dates Shantell Osei [facility] Primary Care Provider Activ e Start: February 24, 2025 Irwin Theodore MD Admit Provider, Othe r Provider Active Start: February 24, 2025 Toby Venegas MD Other Provider Active Start: 2024 AINSLEY Don Other Provider Active Start: February 24, 2025 Junior Mayo MD Other Provider Active Start: Pa y 2024 Iván Govea MD Other Provider Active Start: 2024 Xin Burdick APRN [facility] Other Provider Active Start: February 24, 2025 Pablo Valdez MD Attending Pr ovider, Other Provider Active Start: February 24, 2025 Ignacio Ascencio MD Other Provider Active St art: February 24, 2025 Gomez Montes MD Other Provider Active Start: 2024 Louis Bell , Other Provider Active Start: February 24, 2025 Rey Romero , Other Provider Active Start: February 24, 2025 Teri Degroot MD Other Provider Active Start: 2024 Jassi Arroyo MD Other Provider Active Start: February 24 Fatuma Kwan MD Other Provider Active Start: 2024 Vanda Mejía MD Other Provider Active Start: February 24, 2025 Team Status: Inactive Member Role Status Dates Shantell Osei [facility] Primary Care Provider Activ e Start: March 10, 2025 End: March 10, 2025 Toby Venegas MD Attending Provider Active Star t: March 10, 2025 End: March 10, 2025 Team Status: Active Member Role Status Dates Shantell Osei [facility] Primary Care Provider Activ e Start: March 10, 2025 Gerber Short MD Attending Provider, Other Provider Active Start: March 10, 2025 Goals (unrecognized section and content) Goals may be documented in a n alternate section Scheduled Active and Recently Administ ered Medications (unrecognized section and content) Medication Order 04/25/2024 04/26/2024 04/27/2024 amLODIPine (NORVASC) tablet 10 mg 10 mg, Oral, DAILY, First dose on 04/26/24 at 1345, Until Discontinued 1627 (Given - Provider: Jared Whitley RN) 0824 (Given - Provider: Jared Whitley, BRET) aspirin EC tablet 81 mg 81 mg, Oral, DAILY, First dose on 04/26/24 at 1315, Until Discontinued, Do not crush or break. 1313 (Given - Provider: Jared Whitley RN) 0824 (Given - Provider: Jared Whitley, BRET) atorvastatin (LIPITOR) tablet 10 mg 10 mg, Oral, DAILY, First dose on 04/26/24 at 1315, Until Discontinued 1323 (Given - Provider: Jared Whitley RN) 0825 (Given - Provider: Jared Whitley, BRET) carvedilol (COREG) tablet 25 mg 25 mg, Oral, 2 TIMES DAILY WITH MEALS, First dose (after last reorder) on 04/26/24 at 1700, Until Discontinued, Administer with food to minimize the risk of orthostatic hypotension 1627 (Given - Provider: Jared Whitley, BRET) 0825 (Given - Provider: Jared Whitley, RN)1700 (Due) clopidogrel (PLAVIX) tablet 75 mg 75 mg, Oral, DAILY, First dose on 04/26/24 at 1315, Until Discontinued 1313 (Given - Provider: Jared Whitley RN) 0825 (Given - Provider: Jared Whitley, RN) enoxaparin (LOVENOX) injection 40 mg 40 mg, SubCUTAneous, DAILY, First dose on 04/26/24 at 1200, Until Discontinued, Indication of Use: Prophylaxis-DVT/PE, Administer by deep subCUTAneous injection with pt lying down. Alternate injection sites on abdominal wall. Do not rub site after injection. Check with provider prior to any invasive procedure. 1259 (Given - Provider: Jared Whitley RN) 0823 (Given - Provider: Jared Whitley, BRET) gabapentin (NEURONTIN) capsule 300 mg 300 mg, Oral, 2 times daily, First dose on 04/26/24 at 1315, Until Discontinued 1313 (Given - Provider: Jared Whitley RN)2041 (Given - Provider: Ziggy Macedo RN) 823 (Given - Provider: Jared Whitley RN)2100 (Due) heparin (porcine) injection 2,500 Units (COMPLETED) 2,500 Units, IntraVENous, ONCE, 1 dose, On 04/26/24 at 1415, Regular heparinization: 1000 units/hour x 2.5 hrs = 2500 units 1515 (Given - Provider: Noy Chong, BRET) heparin (porcine) injection 4,000 Units (COMPLETED) 4,000 [...] 2041 (Given - Provider: Ziggy Macedo RN) 08 (Given - Provider: Jared Whitley RN)2100 (Due) levothyroxine (SYNTHROID) tablet 50 mcg (CANCELED) 50 mcg, Oral, 2 TIMES DAILY, First dose on 04/26/24 at 1315, Until Discontinued, Tube feeding (TF) interaction, obtain physician order to manage, recommend holding TF for 30 minutes before and after dose. 1313 (Given - Provider: Jared Whitley RN) lisinopril (PRINIVIL;ZESTRIL) tablet 10 mg 10 mg, Oral, 2 TIMES DAILY, First dose on 04/26/24 at 1300, Until Discontinued 1259 (Given - Provider: Jared Whitley RN)2043 (Given - Provider: Ziggy Macedo RN) 0824 (Given - Provider: Jared Whitley, BRET)2100 (Due) lisinopril (PRINIVIL;ZESTRIL) tablet 10 mg 10 [...] RN) 0822 (Patch Removed - Provider: Jared Whitley, BRET)0823 (Patch Applied - Provider: Jared Whitley, RN) sodium chloride flush 0.9 % injection [...] Rectal, EVERY 6 HOURS PRN, Starting on 7/13/24 at 1128, Until Discontinued, Pain Mild (1-3), [...] BE BASED ON THE PRIMARY CLINICAL RECORDS. [facility]. provides no warranty or guarantee of the accuracy or completeness of information in this document.
--- NOTE | 2025-03-21 02:05 | PC.NURSE ---
Patient resting comfortably on cot at this time. He states he has had right ear pain x2 days and now the pain is into his throat. he thinks water got into his ear during a shower and that is what caused the pain initially. He has been taking Tylenol which did help initially, but the pain woke him from sleep around 10 pm and now nothing will help.
--- NOTE | 2025-03-21 02:06 | ED.GENADUL1 ---
HPI HPI - General Adult General Chief complaint: Ear Stated complaint: ear ache Time Seen by Provider: 03/21/25 02:00 Source: patient Mode of arrival: walk-in Limitations: no limitations History of Present Illness HPI narrative: This 54-year-old male presents with chief complaint of pain in his right ear for the last couple days with some impaired hearing. Denies chills or fever or dysphagia. He has end-stage renal disease and is on hemodialysis. He has a functioning shunt in the left forearm. Related Data Home Medications ?Medication ?Instructions ?Recorded ?Confirmed amlodipine 10 mg tablet 10 mg PO QDAY 05/21/23 02/08/24 atorvastatin 40 mg tablet 40 mg PO QDAY 05/21/23 02/08/24 carvedilol 25 mg tablet 25 mg PO Q12H 05/21/23 02/08/24 gabapentin 300 mg capsule 300 mg PO Q12H 05/21/23 02/08/24 hydralazine 100 mg tablet 100 mg PO Q12H 05/21/23 02/08/24 minoxidil 10 mg tablet 10 mg PO BID 05/21/23 02/08/24 clopidogrel 75 mg tablet 75 mg PO DAILY 02/08/24 02/08/24 isosorbide mononitrate 30 mg 30 mg PO DAILY 02/08/24 02/08/24 tablet,extended release 24 hr levothyroxine 112 mcg tablet 112 mcg PO DAILY 02/08/24 02/08/24 lisinopril 10 mg tablet 10 mg PO DAILY 02/08/24 02/08/24 sevelamer carbonate 800 mg tablet 2,400 mg PO Q8H 02/08/24 02/08/24 Previous Rx's ?Medication ?Instructions ?Recorded cephalexin 500 mg capsule 500 mg PO Q8H 7 days #21 caps 02/08/24 hydrocodone 5 mg-acetaminophen 325 1 tab PO Q4H PRN pain #10 tabs 02/08/24 mg tablet sulfamethoxazole 800 1 tab PO BID 7 days #14 tabs 02/08/24 mg-trimethoprim 160 mg tablet (Bactrim DS) cephalexin 500 mg capsule 500 mg PO QID 10 days #40 caps 02/04/25 hydrocodone 5 mg-acetaminophen 325 1 tab PO Q6H PRN pain 5 days #20 02/04/25 mg tablet tabs sulfamethoxazole 800 1 tab PO BID 10 days #20 tabs 02/04/25 mg-trimethoprim 160 mg tablet (Bactrim DS) cefdinir 300 mg capsule 300 mg PO BID 7 days #14 caps 03/21/25 hydrocodone 5 mg-acetaminophen 325 1 tab PO Q6H PRN pain 3 days #12 03/21/25 mg tablet tabs Allergies Allergy/AdvReac Type Severity Reaction Status Date / Time No Known Drug Allergies Allergy Verified 03/21/25 01:52 Opioid HPI Opioid Management Most Recent Opioid Data: Last Pain Scale 10 Today, 01:48 PFSH PFSH Social History Smoking status: Heavy tobacco smoker Little interest or pleasure in doing things: not at all Feeling down, depressed, or hopeless: not at all Exam Narrative Exam Narrative: Afebrile and nondistressed. The left ear canal is unremarkable containing small amount of cerumen. The tympanic membrane is visible and is not injected. The right ear canal is totally excluded with cerumen and I am unable to see the tympanic membrane. There is no tenderness to manipulation of the right auricle. No surrounding cellulitis is noted. His airway is clear. There is no pharyngeal erythema. There is no stridor neck is supple and is without adenopathy. Lung sounds are clear to auscultation bilaterally with good air entry. Heart rate is slightly rapid with regular rhythm. Constitutional Vital Signs, click to edit/add: Last Vital Signs Temp 99.1 F 03/21/25 01:48 Pulse 107 H 03/21/25 01:48 Resp 18 03/21/25 01:48 BP 177/91 H 03/21/25 01:48 Pulse Ox 99 03/21/25 01:48 O2 Del Method Room Air 03/21/25 01:48 Course Vital Signs Vital signs: Vital Signs Temperature 99.1 F 03/21/25 01:48 Pulse Rate 107 H 03/21/25 01:48 Respiratory Rate 18 03/21/25 01:48 Blood Pressure 177/91 H 03/21/25 01:48 Pulse Oximetry 99 03/21/25 01:48 Oxygen Delivery Method Room Air 03/21/25 01:48 Temperature 99.1 F 03/21/25 01:48 Pulse Rate 107 H 03/21/25 01:48 Respiratory Rate 18 03/21/25 01:48 Blood Pressure 177/91 H 03/21/25 01:48 Pulse Oximetry 99 03/21/25 01:48 Oxygen Delivery Method Room Air 03/21/25 01:48 Medical Decision Making MDM Narrative Medical decision making narrative: Patient presents with right earache and I am unable to visualize the tympanic membrane because of cerumen. The right ear was irrigated and enough cerumen was removed and I was able to see a small area of the tympanic membrane which looks red I feel he may have otitis media. He is placed on [place] for pain and on Omnicef. Follow-up is advised with his PCP and he is to return anytime for worsening symptoms. Discharge Plan Discharge Chief Complaint: Ear Clinical Impression: Otalgia of right ear, Impacted cerumen of right ear, Otitis media Patient Disposition: Home, Self-Care Time of Disposition Decision: 02:57 Condition: Good Mode of Transportation: Private Vehicle Prescriptions / Home Meds: New hydrocodone-acetaminophen 5-325 mg tablet 1 tab PO Q6H PRN (Reason: pain) 3 Days Qty: 12 0RF cefdinir 300 mg capsule 300 mg PO BID 7 Days Qty: 14 0RF No Action clopidogrel 75 mg tablet 75 mg PO DAILY isosorbide mononitrate 30 mg tablet extended release 24 hr 30 mg PO DAILY levothyroxine 112 mcg tablet 112 mcg PO DAILY lisinopril 10 mg tablet 10 mg PO DAILY sevelamer carbonate 800 mg tablet 2,400 mg PO Q8H hydrocodone-acetaminophen 5-325 mg tablet 1 tab PO Q4H PRN (Reason: pain) Qty: 10 0RF sulfamethoxazole-trimethoprim [Bactrim DS] 800-160 mg tablet 1 tab PO BID 7 Days Qty: 14 0RF cephalexin 500 mg capsule 500 mg PO Q8H 7 Days Qty: 21 0RF sulfamethoxazole-trimethoprim [Bactrim DS] 800-160 mg tablet 1 tab PO BID 10 Days Qty: 20 0RF cephalexin 500 mg capsule 500 mg PO QID 10 Days Qty: 40 0RF hydrocodone-acetaminophen 5-325 mg tablet 1 tab PO Q6H PRN (Reason: pain) 5 Days Qty: 20 0RF amlodipine 10 mg tablet 10 mg PO QDAY atorvastatin 40 mg tablet 40 mg PO QDAY carvedilol 25 mg tablet 25 mg PO Q12H gabapentin 300 mg capsule 300 mg PO Q12H hydralazine 100 mg tablet 100 mg PO Q12H minoxidil 10 mg tablet 10 mg PO BID Print Language: Slovenian Instructions: Triethanolamine Polypeptide Oleate (Into the ear) (Cerumenex), Ear Infection (ED), Earache (ED) Additional Instructions: Follow-up with your physician in the next 5 days. Return for worsening symptoms. Referrals: HERI CUELLAR [Primary Care Provider, Unknown] - 1 week
[2025-03-21] MEDS: HYDROCODONE/ACET 5-325 MG TABLET 1 TAB PO (03:11)
== END 2025-03-21 03:15 | disposition home or self-care (01) ==
PROVIDERS: Emergency Provider Emergency Medicine; PCP Nurse Practitioner Family
DX: H66.91 Otitis media, unspecified, right ear (principal); H61.21 Impacted cerumen, right ear; N18.6 End stage renal disease; Z99.2 Dependence on renal dialysis; F17.200 Nicotine dependence, unspecified, uncomplicated; H92.01 Otalgia, right ear
CPT/HCPCS: 99283

== ENCOUNTER 2025-04-13 18:02 | Emergency (ER) | payer OTHER, SELFPAY ==
--- OUTSIDE RECORDS SUMMARY | 2024-11-27 09:30 | XMS_ITS ---
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 Name Role Phone Shantell Osei Primary Care Provider Piyush Lau Unavailable [phone] REASON FOR VISIT UPDATED EXAM Encounters Encounter Location Date Provider Diagnosis [place] [address] [address] [place] [place] [address] 11/27/2024 Piyush Lau Plan Of Treatment Next Appt Details Provider Name:Pietro Baker Fidel berry, 05/01/2025 09:00:00 AM, [address], [place], [address], Progress Notes * MASSEYLEANDER FragaDOB:1970 ( 54 yo M)Acc No.[id number]:11/27/2024 Patient: LEANDER DEVRIES Provider: Jeanette Lau DDS :1970 A ge:54 Y S ex:Male Date:11/27/2024 Address:[address] [facility], [address], [place], [place]-[id number] Pcp:Shantell Osei Subjective: * Chief Complaints: * 1 . UPDATED EXAM. * Medical History: Objective: * Vitals: Assessment: Plan: * Treatment: * Images: * Electronic signature of Duke Lau DDS on 04/13/2025 at 06:09 PM EDT Sign off status: Pending * Provider: Jeanette Lau DDS Date: 0 11/27/2024 Generated for Shun hood/Kasey/Dedeitting on: 0 04/13/2025 06:09 PM EDT
--- OUTSIDE RECORDS SUMMARY | 2025-04-13 11:48 | XMS_ITS | Continuity of Care Document ---
Author Organization [facility] Address [address] [place] [address] Phone Care Team Providers Care Regional Geodetic Advisor Name Role Phone Shantell Osei [facility] Primary Care Provider Toby Foley MD Attending Provider [phone] Gerber Short MD Attending Provider [phone] Gerber Short MD Other Provider [phone] Irwin Theodore MD Admit Provider [phone] Irwin Theodore MD Attending Provider [phone] Toby Foley MD Other Provider Isha Kowalski CLINICAL TRANSPLANT COORDINATOR-C Other Provider Unavailable Petrona Mora Other Provider Iván Govea MD Other Provider Xin Burdick APRN Other Provider Pablo Valdez MD Other Provider [phone] Ignacio Ascencio MD Other Provider Gomez Montes MD Other Provider Louis Bell DO Other Provider Rey Romero DO Other Provider [phone] Teri Degroot MD Other Provider Jassi Arroyo MD Other Provider Fatuma Kwan MD Other Provider Vanda Mejía MD Other Provider [phone] Irwin Theodore MD Other Provider Petrona Mora Attending Provider [phone] Pablo Valdez MD Attending Provider Patrice Levine MD Attending Provider Patrice Levine MD Other Provider [facility] Primary Care Provider Adrian Serrano MD Emergency Provider Care Teams Patient Care Team Team Status: Active Member Role Status Dates [facility] Primary Care Provider Active Visit Care Team Team Status: Active Member Role Status Dates Shantell Osei [facility] Primary Care Provider Activ e Start: February 05, 2025 Toby Foley MD Attending Provider Active Star t: February 05, 2025 Visit Care Team Team Status: Inactive Member Role Status Dates Shantell Osei [facility] Primary Care Provider Activ e Start: February 05, 2025 End: February 05, 2025 Toby Foley MD Attending Provider Active Star t: February 05, 2025 End: February 05, 2025 Visit Care Team Team Status: Inactive Member Role Status Dates Shantell Osei [facility] Primary Care Provider Activ e Start: February 05, 2025 End: February 05, 2025 Gerber Short MD Attending Provider Active S tart: February 05, 2025 End: February 05, 2025 Visit Care Team Team Status: Active Member Role Status Dates Shantell Osei [facility] Primary Care Provider Activ e Start: February 06, 2025 Gerber Short MD Attending Provider Active S tart: February 06, 2025 Gerber Short MD Other Provider Active Start : February 06, 2025 Visit Care Team Team Status: Inactive Member Role Status Dates Shantell Osei [facility] Primary Care Provider Activ e Start: February 23, 2025 End: February 23, 2025 Gerber Short MD Attending Provider Active S tart: February 23, 2025 End: February 23, 2025 Visit Care Team Team Status: Inactive Member Role Status Dates Shantell Sea , [facility] Primary Care Provider Activ e Start: February 24, 2025 End: February 26, 2025 Irwin Theodore MD Admit Provider Active Start: February 24, 2025 End: February 26, 2025 Irwin Theodore MD Attending Provider Active St art: February 24, 2025 End: February 26, 2025 Toby Foley MD Other Provider Active Start: 2024 End: February 26, 2025 AINSLEY Don Other Provider Active Start: February 24, 2025 End: February 26, 2025 Junior Mora MD Other Provider Active Start: [place] 2024 End: February 26, 2025 Iván Govea MD Other Provider Active Start: [facility] 2024 End: February 26, [address] [facility] Other Provider Active Start: February 24, 2025 End: February 26, 2025 Pablo Valdez MD Other Provider Active Start: February 24, 2025 End: February 26, 2025 Ignacio Ascencio MD Other Provider Active St art: February 24, 2025 End: February 26, 2025 Gomez Montes MD Other Provider Active Start: [facility] 2024 End: February 26, 2025 Louis Bell , Other Provider Active Start: February 24, 2025 End: February 26, 2025 Rey Romero , Other Provider Active Start: February 24, 2025 End: February 26, 2025 Teri Degroot MD Other Provider Active Start: [facility] 2024 End: February 26, 2025 Jassi Arroyo MD Other Provider Activ e Start: February 24, 2025 End: February 26, 2025 Fatuma Kwan MD Other Provider Active Start: [facility] 2024 End: February 26, 2025 Vanda Mejía MD Other Provider Active Start: February 24, 2025 End: February 26, 2025 Visit Care Team Team Status: Active Member Role Status Dates Shantell Osei [facility] Primary Care Provider Activ e Start: February 24, 2025 Irwin Theodore MD Admit Provider Active Start: February 24, 2025 Irwin Theodore MD Other Provider Active Start: February 24, 2025 Toby Foley MD Other Provider Active Start: 2024 AINSLEY Don Other Provider Active Start: February 24, 2025 Junior Mora MD Attending Provider Active Start : February 24, 2025 Junior Mora MD Other Provider Active Start: [place] 2024 Iván Govea MD Other Provider Active Start: [address] [facility] Other Provider Active Start: February 24, 2025 [...] Start: 2024 Jassi Arroyo MD Other Provider Activ e Start: February 24, 2025 Fatuma Kwan MD Other Provider Active Start: 2024 Vanda Mejía MD Other Provider Active Start: February 24, 2025 Visit Care Team Team Status: Active Member Role Status Dates Shantell Osei [facility] Primary Care Provider Activ e Start: February 24, 2025 Irwin Theodore MD Admit Provider Active Start: February 24, 2025 Irwin Theodore MD Other Provider Active Start: February 24, 2025 Toby Foley MD Other Provider Active Start: ay 2024 AINSLEY Don Other Provider Active Start: February 24, 2025 Junior Mora MD Other Provider Active Start: [place] 2024 Iván Govea MD Other Provider Active Start: [address] [facility] Other Provider Active Start: February 24, 2025 Pablo Valdez MD Attending Provider Active Start: February 24, 2025 Pablo Valdez MD Other Provider Active Start: February 24, 2025 Ignacio Ascencio MD Other Provider Active St art: February 24, 2025 Gomez Montes MD Other Provider Active Start: 2024 Louis Bell , DO Other Provider Active Start: February 24, 2025 Rey Romero , Other Provider Active Start: February 24, 2025 Teri Degroot MD Other Provider Active Start: 2024 Jassi Arroyo MD Other Provider Activ e Start: February 24, 2025 Fatuma Kwan MD Other Provider Active Start: 2024 Vanda Mejía MD Other Provider Active Start: February 24, 2025 Visit Care Team Team Status: Active Member Role Status Dates Shantell Osei [facility] Primary Care Provider Activ e Start: March 10, 2025 Junior Mora MD Attending Provider Active Start : March 10, 2025 Visit Care Team Team Status: Inactive Member Role Status Dates Shantell Osei [facility] Primary Care Provider Activ e Start: March 10, 2025 End: March 10, 2025 Toby Foley MD Attending Provider Active Star t: March 10, 2025 End: March 10, 2025 Visit Care Team Team Status: Active Member Role Status Dates Shantell Osei [facility] Primary Care Provider Activ e Start: March 10, 2025 Gerber Short MD Attending Provider Active S tart: March 10, 2025 Gerber Short MD Other Provider Active Start : March 10, 2025 Visit Care Team Team Status: Inactive Member Role Status Dates Shantell Osei [facility] Primary Care Provider Activ e Start: March 31, 2025 End: March 31, 2025 Toby Foley MD Attending Provider Active Star t: March 31, 2025 End: March 31, 2025 Visit Care Team Team Status: Inactive Member Role Status Dates Junior Mora MD Attending Provider Active Start : April 11, 2025 End: April 11, 2025 Visit Care Team Team Status: Active Member Role Status Dates Patrice Levine MD Attending Provider Active Start: April 13, 2025 Patrice Levine MD Other Provider Active Start: April 13, 2025 Services [facility] Provider Active Start: April 13, 2025 Patient Care Team Team Status: Inactive Member Role Status Dates [facility] Provider Active Start: April 13, 2025 End: April 13, 2025 Adrian Serrano MD Emergency Provider Active Star t: April 13, 2025 End: April 13, 2025 Chief Complaint and Reason for Visit Chief Complaint Admit Date E87.5 February 05, 2025 7:0 4am clotted graft February 05, 2025 12: 50pm clotted graft February 06, 2025 12: 00pm f/u fistulogram February 23, 2025 11:02 am pulmonary edema , respiratory failure Ma y 2024 10:04am pulmonary edema , respiratory failure Ma y 2024 10:34am pulmonary edema , respiratory failure Ma y 2024 11:49am e87.5 March 10, 2025 7:21a m clotted graft March 10, 2025 2:00p m E87.5 March 31, 2025 6:24 am E87.5 April 11, 2025 7:02 am ESRD April 13, 2025 9:37 am hbp April 13, 2025 1:19 pm Reason for Visit Admit Date Hemodialysis access, AV graft January 12:50pm End-stage renal disease (ESRD) February 23, 2025 11:02am Acute on chronic respiratory failure wit h hypercapnia February 24, 2025 10:04am Acute on chronic respiratory failure with hypoxia and hypercapnia February 24, 2025 10:04am 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 Please call to schedule a 5 day post hospital appointment. Allergies, Adverse Reactions, Alerts Allergen Type Severity Reaction Last Updated Verified Status Comments Iodinated Contrast Media Adverse Reaction Severe Unknown Reaction April 13, 2025 1:33pm Yes Active CKD Social History Smoking Status Status Start Date End Date Date of Observa tion Smokes tobacco daily (finding) April 13, 2025 2:54pm Observation Status Observation Response Date of Response Legal Sex Male (finding) Sex Assigned At Male [id number] Family History Relationship Condition Age at Onset Recorded Date/T luca brother Family history of mental disorder Unknown Hypertension Unknown father Unknown Family history of mental disorder Unknown History of stroke Unknown Hypertension Unknown family member Unknown mother Heart disease Unknown Unknown Family history of mental disorder Unknown Chronic obstructive pulmonary disease Unk nown Coronary artery disease Unknown sister Family history of mental disorder Unknown Problems Active Problems Medical Problem Onset Date Status Comments Primary insomnia Unknown Active Other specified hypothyroidism Unknown Active COPD with acute exacerbation Unknown Active Thyroid nodule Unknown Active Dyslipidemia Unknown Active AV shunt malfunction Unknown Active High cholesterol Unknown Active Cellulitis Unknown Active Vitreous floaters of both eyes Unknown Active Asymptomatic stenosis of left carotid artery Unknown Active Hemodialysis access, AV graft Unknown Active L FA Acute and chronic respiratory failure with hypoxia Unk nown Active Hyperlipidemia Unknown Active Hyperlipidemia Unknown Active Hyperparathyroidism Unknown Active Hypothyroid Unknown Active Nephrolithiasis Unknown Active Dependence on renal dialysis Unknown Active Neuropathy Unknown Active DDD (degenerative disc disease), cervical Unknown Active Autoimmune thyroiditis Unknown Active Tobacco abuse Unknown Active Essential hypertension Unknown Active Acute pulmonary edema Unknown Active BMI 31.0-31.9,adult Unknown Active Plantar wart of left foot Unknown Active COPD exacerbation Unknown Active COPD exacerbation Unknown Active Carotid stenosis, bilateral Unknown Active Hypertension Unknown Active Hypertension Unknown Active Vitamin D deficiency Unknown Active Hypokalemia Unknown Active Hyperkalemia Unknown Active Inactive/Resolved Problems Medical Problem Onset Date Status Comments Pulmonary edema due to fluid overload Unknown Res olved End-stage renal disease needing dialysis Unknown Resolved Secondary hyperparathyroidism Unknown Resolved Obstructive sleep apnea (adult) (pediatric) Unknown Resolved Cardiac arrest Unknown Resolved Acute on chronic respiratory failure with hypercapnia Unknown Resolved Hypertensive kidney disease with chronic kidney disease stage V Unknown Resolved Leukocytosis Unknown Resolved Benign hypertension with end-stage renal disease Unkno wn Resolved Acute on chronic respiratory failure with hypoxia and hypercapnia Unknown Resolved Anemia of renal disease Unknown Resolved Acute renal failure superimp osed on chronic kidney disease Unknown Resolved Medications Medication Status Dose Units Route Directions Qty Days St art Date Stop Date End Date Instructions Adherence Levothyroxi ne 112 mcg tablet Discont inued 100 MCG PO Daily January 14, 2024 11:20a m February 24, 2025 1:34p m Carvedilol (Coreg) 25 mg tablet Discont inued 25 MG PO Twice daily 180 January 14, 2024 11:20a m Octua 2024 5:21p m TAKE 1 TABLET BY MOUTH TWICE A DAY Minoxidil 10 mg tablet Discont inued 10 MG PO Twice daily January 14, 2024 11:20a m April 11, 2024 11:11 am Lisinopril 10 mg tablet Discont inued 10 MG PO Daily 90 January 14, 2024 11:23a m April 17, 2024 7:43a m Minoxidil 10 mg tablet Discont inued 0 .ROUTE .COMPLEX 180 April 11, 2024 11:11a m February 24, 2025 1:39p m TAKE 1 TABLET BY MOUTH TWICE A DAY Lisinopril 20 mg tablet Discont inued 0 .ROUTE .COMPLEX 180 April 17, 2024 7:43am February 24, 2025 1:38p m TAKE 1 TABLET BY MOUTH TWICE A DAY Furosemide 40 mg tablet Discont inued 0 .ROUTE .COMPLEX 180 2023 11:06a m April 13, 2025 9:55a m TAKE 1 TABLET BY MOUTH TWICE A DAY AT 8AM AND 4PM [id number] Sul-Nacl-John l-Asb-C (Plenvu) 140-9-5.2 gram powder in packet, sequential Discont inued 140 ML PO .COMPLEX 3 1 March 31, 2025 12:00a m April 01, 2025 10:44 am First dose at 4pm the day before colonoscopy, Second dose at 11pm the night before the colonoscopy Furosemide (Lasix) 40 mg tablet Discont inued 40 MG PO Daily [facility]2021 1:00am Febru christiano 2021 12:45 pm TAKE 1 TABLET BY MOUTH DAILY FOR 7 DAYS THEN STOP Atorvastati n (Lipitor) 40 mg tablet Discont inued 40 MG PO Daily 2021 1:00am February 24, 2025 1:35p m TAKE 1 TABLET BY MOUTH EVERY DAY FOR 90 DAYS Carvedilol (Coreg) 25 mg tablet Discont inued 25 MG PO Twice daily 2021 1:00am January 14, 2024 11:20 am TAKE 1 TABLET BY MOUTH TWICE A DAY Lisinopril (Zestril) 20 mg tablet Discont inued 20 MG PO Daily 2021 1:00am December 30, 2021 10:20 am TAKE 1 TABLET BY MOUTH EVERY DAY FOR 90 DAYS Clonidine Hcl 0.3 mg tablet Discont inued 0.3 MG PO Three times daily 2021 1:00am Septe mber 2021 6:25a m TAKE 1 TABLET BY MOUTH THREE TIMES A DAY Clopidogrel (Plavix) 75 mg tablet Discont inued 75 MG PO Daily 2021 1:00am Novem jerrod 2021 7:36a m TAKE 1 TABLET BY MOUTH EVERY DAY FOR 90 DAYS Levothyroxi ne (Synthroid) 100 mcg tablet Discont inued 112 MCG PO Every morning [facility]2021 1:00am Augus t 2022 9:47a m TAKE 1 TABLET BY MOUTH EVERY MORNING ON AN EMPTY STOMACH Amlodipine (Norvasc) 10 mg tablet Discont inued 10 MG PO Daily [facility]2021 1:00am March 01, 2023 12:20 pm TAKE 1 TABLET BY MOUTH EVERY DAY FOR 90 DAYS Gabapentin (Neurontin) 300 mg capsule Discont inued 300 MG PO Twice daily [facility]2021 1:00am March 03, 2023 10:54 am TAKE 1 CAPSULE BY MOUTH EVERY DAY NEEDED ONLY Sertraline (Zoloft) 25 mg tablet Discont inued 25 MG PO Daily 2021 1:00am December 30, 2021 10:20 am TAKE 1 TABLET BY MOUTH EVERY DAY Hydralazine 50 mg tablet Discont inued 50 MG PO Three times daily 2021 1:00am [facility] 2021 12:45 pm TAKE 1 TABLET BY MOUTH THREE TIMES A DAY Ferrous Sulfate (Iron) 325 mg (65 mg iron) tablet Discont inued 325 MG PO Q48H 2021 1:00am [facility] 2021 7:41p m TAKE 1 TABLET BY MOUTH EVERY OTHER DAY Hydralazine 50 mg Tablet Discont inued 100 MG PO Three times daily 180 30 2021 1:00am [facility] 2021 6:29a m Furosemide 40 mg Tablet Discont inued 40 MG PO Daily December 31, 2021 12:00a m February 20, 2022 12:34 pm Lisinopril 20 mg tablet Discont inued 20 MG PO Twice daily [facility] 2021 1:00am January 09, 2024 10:20 am Hydralazine 100 mg tablet Active 100 MG PO Twice daily [facility] 2021 1:00am Unknown B Complex-Vit senior C-Folic Acid (Nephro-Vit e) 0.8 mg tablet Discont inued 1 TAB PO Daily [facility] 2021 1:00am March 01, 2023 12:20 pm Oxycodone-A cetaminophe n (Percocet) 5-325 mg tablet Discont inued 1 TAB PO Q8H as needed for pain 20 7 [facility] 2021March 01, 2023 12:20 pm Levothyroxi ne 112 mcg tablet Discont inued 100 MCG PO Daily May 22, 2023 12:00a m January 14, 2024 11:20 am Minoxidil 10 mg tablet Discont inued 10 MG PO Twice daily May 22, 2023 12:00a m January 14, 2024 11:20 am Gabapentin 300 mg capsule Active 300 MG PO Four times daily as needed for pain May 22, 2023 12:00a m Unknown Doxycycline Hyclate 100 mg capsule Discont inued 100 MG PO Twice daily 07 19May 22, 2023 12:00a m Augus t 2022 12:21 pm start 05/23/23 am Clonidine 0.2 mg/24 hr patch weekly Discont inued 0.2 MG TRANSD ERML every week 2021 12:00a m March 01, 2023 12:20 pm Minoxidil 2.5 mg tablet Discont inued 10 MG PO Twice daily 2021 12:00a m Augus 2022 9:49a m On Hold: Until cleared by nephrology Sevelamer Carbonate (Renvela) 800 mg tablet Discont inued 1600 MG PO THREE TIMES DAILY WITH MEALS 2021 12:00a m April 01, 2025 10:44 am B Complex-Vit senior C-Folic Acid (Nephro-Vit e) 0.8 mg tablet Discont inued 1 TAB PO Daily March 01, 2023 12:00a m February 26, 2025 2:44p m Diphenhydra mine Hcl 50 mg Capsule Discont inued 50 MG PO Daily at bedtime March 01, 2023 12:00a m Mayus t 2022 9:51a m Gabapentin (Neurontin) 300 mg capsule Discont inued 300 MG PO Every 48 hours March 03, 2023 10:54a m Augus 2022 2:15p m Take 300 mg after dialysis only up to 3 times per week Amlodipine 5 mg tablet Discont inued 5 MG PO Daily January 09, 2024 12:00a m February 26, 2025 2:51p m Lisinopril 10 mg tablet Discont inued 10 MG PO Daily January 09, 2024 12:00a m January 14, 2024 11:24 am Furosemide 40 mg Tablet Discont inued 40 MG PO BID@0800,16 00 180 January 09, 2024 12:00a m [facility] 2023 11:06 am Isosorbide Mononitrate 30 mg tablet extended release 24 hr Active 30 MG PO Daily February 24, 2025 12:00a m Unknown Levothyroxi ne 100 mcg tablet Active 100 MCG PO Daily February 24, 2025 12:00a m [employer]: TAKE 1 TABLET BY MOUTH EVERY MORNING ON AN EMPTY STOMACH orally qd; Note: Source Status: Taking; Refills: 1; Provider: Sea Damian Unknown Lisinopril 10 mg tablet Active 20 MG PO Twice daily February 24, 2025 12:00a m Unknown Atorvastati n 10 mg tablet Active 10 MG PO Daily February 24, 2025 12:00a m Unknown Carvedilol 12.5 mg tablet Active 12.5 MG PO Twice daily February 24, 2025 12:00a m Unknown Carvedilol 6.25 mg tablet Active 25 MG PO Twice daily February 24, 2025 12:00a m Unknown Midodrine 5 mg tablet Discont inued 5 MG PO .Three times a week as needed for during dialysis February 24, 2025 12:00a m April 01, 2025 10:44 am Nicotine 21 mg/24 hr patch 24 hour Discont inued 1 PATCH TRANSD ERML Daily February 26, 2025 12:00a m April 01, 2025 10:44 am Aspirin (Adult Low Dose Aspirin) 81 mg tablet,pam yed release (DR/EC) Active 81 MG PO Daily February 23, 2025 12:00a m Unknown Clopidogrel 75 mg tablet Active 75 MG PO Daily February 23, 2025 12:00a m Unknown Medical Equipment Device Date Implanted Device Details Double-lumen haemodialysis catheter, implantable December 30, 2021 MERLIN: [id number] Issuing Agency: [facility] Device Id: [id number] Expiration Date: 2024-03-14 Lot Number: [id number] Synthetic vascular graft August 24, 2022 MERLIN : )[id number] Issuing Agency: 1 Device Id: [id number] Expiration Date: 2026-02-13 Serial Number: [id number] Procedures Procedure Date Performed Status IR Fistulogram/TLA Stent (Left) February 05, 2025 2:05pm completed XR chest 1V portable February 24, 2025 4:00pm compl eted XR chest 1V portable February 25, 2025 5:00am compl eted Performance of Urinary Filtr ation, Intermittent, Less than 6 Hours Per Day February 24, 2025 active Respiratory Ventilation, Les s than 24 Consecutive Hours February 24, 2025 active Relevant Diagnostic Tests and/or Laboratory Data Laboratory Results Test Collection Date/Time Result Date/Time Result Interpretation Reference Range Result Comment Performing Site Correcte d White Blood Count February 25, 2025 4:16am February 25, 2025 4:35am 7.7 10*3/uL 4.1-10.5 [facility] [id number] [address] [place] [address] Uncorrec bernardo WBC Count February 25, 2025 4:16am February 25, 2025 4:35am 7.7 10*3/uL 4.1-10.5 [facility] [id number] [address] [place] [address] Red Blood Count February 25, 2025 4:16am February 25, 2025 4:35am 3.42 10*6/uL Below low normal 3.90-5.60 [facility] [id number] [address] [place] [id number] Hemoglob in February 25, 2025 4:16am February 25, 2025 4:35am 9.7 g/dL Below low normal 13.0-17.0 [facility] [id number] [address] [place] [id number] Hematocr it February 25, 2025 4:16am February 25, 2025 4:35am 29.9 % Below low normal 38.8-50.0 [facility] [id number] [address] [place] [address] Mean Corpuscu lar Volume February 25, 2025 4:16am February 25, 2025 4:35am 87.3 fL 83.5-101 [facility] [id number] [address] [place] [address] Mean Corpuscu lar Hemoglob in February 25, 2025 4:16am February 25, 2025 4:35am 28.4 pg 27.5-35.2 [facility] [id number] [address] [facility] [address] Mean Corpuscu lar Hemoglob in Concent February 25, 2025 4:16am February 25, 2025 4:35am 32.5 g/dL 32.5-35.6 [facility] [id number] [address] [facility] [address] Red Cell Distribu tion Width February 25, 2025 4:16am February 25, 2025 4:35am 16.8 % Above high normal 12.0-14.8 [facility] [id number] [address] [facility] [address] Platelet Count February 25, 2025 4:16am February 25, 2025 4:35am 326 10*3/uL 150-450 [facility] [id number] [address] [facility] [address] Mean Platelet Volume February 25, 2025 4:16am February 25, 2025 4:35am 7.3 fL 6.6-10.1 [facility] [id number] [address] [facility] [id number] Neutroph ils (%) (Auto) February 25, 2025 4:16am February 25, 2025 4:35am 77.2 % . [facility] [id number] [address] [facility] [address] Lymphocy subha (%) (Auto) February 25, 2025 4:16am February 25, 2025 4:35am 9.6 % . [facility] [id number] [address] [facility] [address] Monocyte s (%) (Auto) February 25, 2025 4:16am February 25, 2025 4:35am 8.4 % . [facility] [id number] [address] [facility] [address] Eosinoph ils (%) (Auto) February 25, 2025 4:16am February 25, 2025 4:35am 2.5 % . [facility] [id number] [address] [facility] [address] Basophil s (%) (Auto) February 25, 2025 4:16am February 25, 2025 4:35am 2.3 % . [facility] [id number] [address] [facility] [address] Nucleate d RBC Relative Count (auto) February 25, 2025 4:16am February 25, 2025 4:35am 0.0 /100{WBC} 0-0.5 [facility] [id number] [address] [facility] [address] Neutroph ils # (Auto) February 25, 2025 4:16am February 25, 2025 4:35am 5.9 10*3/uL 1.8-7.7 [facility] [id number] [address] [facility] [address] Lymphocy subha # (Auto) February 25, 2025 4:16am February 25, 2025 4:35am 0.7 10*3/uL Below low normal 1.00-4.8 [facility] [id number] [address] [place] [id number] Monocyte s # (Auto) February 25, 2025 4:16am February 25, 2025 4:35am 0.6 10*3/uL 0.0-0.8 [facility] [id number] [address] [place] [address] [id number] Eosinoph ils # (Auto) February 25, 2025 4:16am February 25, 2025 4:35am 0.2 10*3/uL 0.0-0.45 [facility] [id number] [address] [facility] [address] Basophil s # (Auto) February 25, 2025 4:16am February 25, 2025 4:35am 0.2 10*3/uL 0.0-0.2 [facility] [id number] [address] [place] [address] 12958 Prothrom bin Time February 25, 2025 4:16am February 25, 2025 5:02am 11.2 s 9.0-12.9 A hematocrit value greater than 55% may lead to inaccurate results in coagulation testing. Patients having hematocrit values >55% require a special collection tube for coagulation studies. Please contact the laboratory at for redraw instruction s. [facility] [id number] [address] [place], [place] [id number] Prothrom b Time Internat ional Ratio February 25, 2025 4:16am February 25, 2025 5:02am 1.0 INR Therapeutic Range A) Pre- and Peroperativ e OAT started two weeks before surgery. NOT HIP SURGERY: 1.5 - 2.5 HIP SURGERY: 2 - 3B) Primary and secondary prevention of venous THROMBOSIS: 2 - 3C) Active venous thrombosis, pulmonary embolismand prevention of recurrent venous thrombosis: 2 - 3D) Prevention of arterial thromboembo lismincludi ng patients with mechanical heart valves: 3 - 4.5 [facility] [id number] [address] [facility] [address] Glucose Level February 26, 2025 4:59am February 26, 2025 6:58am 87 mg/dL 70-100 ADA recommended reference rangeRandom Glucose Reference Range is dependent on time and content of last meal. Glucose of more than 200 mg/dL in a nonstressed , ambulatory subject supports the diagnosis of Diabetes Mellitus. [facility] [id number] [address] [place], [place] [id number] Blood Urea Nitrogen February 26, 2025 4:59am February 26, 2025 6:58am 54 mg/dL Above high normal 7-25 [facility] [id number] [address] [place], [place] [id number] Creatini ne February 26, 2025 4:59am February 26, 2025 6:58am 10.05 mg/dL Significant change up 0.70-1.30 Delta: 7.00 on 02/25/25- 16 [facility] [id number] [address] [place] [address] 17998 Estimate d GFR (CKD-EPI ) February 26, 2025 4:59am February 26, 2025 6:58am 5.540 mL/Min [facility] [id number] [address] [place] [address] 16944 Sodium Level February 26, 2025 4:59am February 26, 2025 6:58am 132 mmol/L Below low normal 136-145 [facility] [id number] [address] [facility] [address] Potassiu m Level February 05, 2025 7:12am February 05, 2025 7:44am 4.4 mmol/L 3.5-5.1 [facility] [id number] [address] [place] [address] 32963 Potassiu m Level February 26, 2025 4:59am May 15th, 2025 6:58am 4.9 mmol/L 3.5-5.1 [facility] [id number] [address] [facility] [address] Potassiu m Level March 10, 2025 7:21am March 10, 2025 8:16am 4.7 mmol/L 3.5-5.1 [facility] [id number] [address] [facility] [address] Potassiu m Level March 31, 2025 6:24am March 31, 2025 7:46am 5.1 mmol/L 3.5-5.1 [facility] [id number] [address] [facility] [address] Potassiu m Level April 11, 2025 7:02am April 11, 2025 8:23am 4.2 mmol/L 3.5-5.1 [facility] [id number] [address] [facility] [address] Chloride Level February 26, 2025 4:59am February 26, 2025 6:58am 92 mmol/L Below low normal 98-107 [facility] [id number] [address] [facility] [address] Carbon Dioxide Level February 26, 2025 4:59am February 26, 2025 6:58am 25.4 mmol/L 21.0-31.0 [facility] [id number] [address] [facility] [address] Anion Gap February 26, 2025 4:59am February 26, 2025 6:58am 19.5 mEq/L Above high normal 6.0-15.0 [facility] [id number] [address] [facility] [address] Calcium Level February 26, 2025 4:59am February 26, 2025 6:58am 8.9 mg/dL 8.6-10.3 [facility] [id number] [address] [facility] [address] Phosphor us Level February 25, 2025 4:16am February 25, 2025 5:36am 5.6 mg/dL Above high normal 2.5-4.5 [facility] [id number] [address] [facility] [address] Magnesiu m Level February 25, 2025 4:16am February 25, 2025 5:36am 2.0 mg/dL 1.9-2.7 [facility] [id number] [address] [place], [place] [id number] Total Protein February 25, 2025 4:16am February 25, 2025 5:36am 5.9 g/dL Below low normal 6.4-8.9 [facility] [id number] [address] [place], [place] [address] Albumin February 25, 2025 4:16am February 25, 2025 5:36am 3.7 g/dL 3.5-5.7 [facility] [id number] [address] [place], [place] [address] Globulin February 25, 2025 4:16am February 25, 2025 5:36am 2.2 g/dL [facility] [id number] [address] [place], [place] [address] Albumin/ Globulin Ratio February 25, 2025 4:16am February 25, 2025 5:36am 1.7 [facility] [id number] [address] [place], [place] [address] Total Bilirubi n February 25, 2025 4:16am February 25, 2025 5:36am 0.4 mg/dL 0.3-1.0 [facility] [id number] [address] [place], [place] [address] Aspartat e Amino Transf (AST/SGO T) February 25, 2025 4:16am February 25, 2025 5:36am 13 U/L 13-39 [facility] [id number] [address] [place], [place] [address] Alanine Aminotra nsferase (ALT/SGP T) February 25, 2025 4:16am February 25, 2025 5:36am 11 U/L 7-52 [facility] [id number] [address] [place], [place] [address] Alkaline Phosphat ase February 25, 2025 4:16am February 25, 2025 5:36am 84 U/L 34-104 [facility] [id number] [address] [place], [place] [address] Uric Acid February 25, 2025 4:16am February 25, 2025 5:36am 3.5 mg/dL Below low normal 4.4-7.6 [facility] [id number] [address] [facility] [address] Troponin I High Sensitiv ity February 25, 2025 4:16am February 25, 2025 5:04am 64 ng/L Above upper panic limits 0-20 Critical Result : Called to and read back by: ANOOP HULL at: 02/25/2025 05:03:51 by:CGThe Troponin units of report have been changed to meet the Chest Pain Accreditati on requirement , element EC5.M1l2. Troponin units are changed from pg/ml to ng/L. Also, the decimal is removed and results are in whole numbers. [facility] [id number] [address] [facility] [address] Choleste rol Level February 26, 2025 4:59am February 26, 2025 6:58am 128 mg/dL Below low normal 140-200 Chol less than 200 mg/dl low riskChol 201-239 mg/dl borderline riskChol 240 mg/dl and greater high risk [facility] [id number] [address] [facility] [address] HDL Choleste rol February 26, 2025 4:59am February 26, 2025 6:58am 41 mg/dL 23-92 HDL CHOL ATP-III CLASSIFICAT ION Cardiovascu lar RiskHDL > or equal to 60 mg/dL LOWHDL < 40 mg/dL HIGH [facility] [id number] [address] [place] [address]652 Triglyce rides Level February 26, 2025 4:59am February 26, 2025 6:58am 127 mg/dL 0-149 TRIG ATP III CLASSIFICAT IONTRIG less than 150 mg/dL NormalTRIG 150-199 mg/dL Borderline highTRIG 200-500 mg/dL High TRIG greater than 500 mg/dL Very highStandar d traceable to the Center for Disease Conrtrol and Prevention (CDC) test method. [facility] [id number] [address] [facility] [address] LDL Choleste rol, Calculat ed February 26, 2025 4:59am February 26, 2025 6:58am 62 mg/dL 0-100 LDL ATP III CLASSIFICAT IONLDL less than 100 mg/dL OptimalLDL 100-129 mg/dL Near or above optimalLDL 130-159 mg/dL Borderline highLDL 160-189 mg/dL HighLDL greater than 189 mg/dL Very high [facility] [id number] [address] [place] [address] 93721 VLDL Choleste rol February 26, 2025 4:59am February 26, 2025 6:58am 25 mg/dL [facility] [id number] [address] [place] [id number] Choleste rol/HDL Ratio February 26, 2025 4:59am February 26, 2025 6:58am 3.1 <5.0 [facility] [id number] [address] [place], [place] [address] Thyroid Stimulat ing Hormone 3rd Gen February 26, 2025 4:59am February 26, 2025 6:44am 2.21 u[iU]/mL 0.45-5.33 [facility] [id number] [address] [place], [place] [address] Pharmacy Creatini ne Clearanc e (Chem February 26, 2025 4:59am February 26, 2025 6:58am 8.74 [facility] [id number] [address] [place], [place] [address] Hemoglob in A1c February 26, 2025 4:59am February 26, 2025 7:42am 4.9 % 4.3-5.6 Increased risk for diabetes: 5.7 - 6.4diabetes : >6.4glycemi c control for adults with diabetes: <7.0 [facility] [id number] [address] [place], [place] [address] Estimate d Average Glucose February 26, 2025 4:59am February 26, 2025 7:42am 94 mg/dL [facility] [id number] [address] [place], [place] [address] Arterial Blood pH February 25, 2025 4:43am February 25, 2025 4:45am 7.40 7.35-7.45 Point of Care testing Arterial Blood Partial Pressure CO2 February 25, 2025 4:43am February 25, 2025 4:45am 45.9 mm[Hg] Above high normal 35.0-45.0 Point of Care testing Arterial Blood Partial Pressure O2 February 25, 2025 4:43am February 25, 2025 4:45am 72.2 mm[Hg] Below low normal 80.0-100.0 Point of Care testing Arterial Blood HCO3 February 25, 2025 4:43am February 25, 2025 4:45am 27.5 mmol/L 23.0-29.0 Point of Care testing Arterial Blood Base Excess February 25, 2025 4:43am February 25, 2025 4:45am 2.2 mmol/L -3.0-3.0 Point of Care testing Arterial Blood Oxygen Saturati on February 25, 2025 4:43am February 25, 2025 4:45am 93.4 % Below low normal 95.0-100.0 Point of Care testing Arterial Blood Oxygen Content February 25, 2025 4:43am February 25, 2025 4:45am 5.9 mmol/L Below low normal 6.6-9.7 Point of Care testing Arterial Blood Total CO2 February 25, 2025 4:43am February 25, 2025 4:45am 28.9 mmol/L Above high normal 23.0-27.0 Point of Care testing FiO2 February 25, 2025 4:43am February 25, 2025 4:45am 30 % Point of Care testing Blood Gas Tidal Volume February 25, 2025 4:43am February 25, 2025 4:45am 500 mL Point of Care testing Blood Gas PEEP February 25, 2025 4:43am February 25, 2025 4:45am 5 cmH2O Point of Care testing Blood Gas Sample Site February 25, 2025 4:43am February 25, 2025 4:45am Right brachial Point of Care testing Blood Gas Ventilat or Mode February 25, 2025 4:43am February 25, 2025 4:45am Ac Point of Care testing Blood Gas Set Respirat ion Rate February 25, 2025 4:43am February 25, 2025 4:45am 14 Point of Care testing Blood Gas Critical Value February 25, 2025 4:43am February 25, 2025 4:45am See comment Critical Value called on: 02/25/2025 at 04:44 Point of Care testing Bedside Glucose February 25, 2025 7:13am February 25, 2025 7:19am 118 mg/dL Random Glucose Reference Range is dependent on time and content of last meal. Glucose of more than 200 mg/dL in a nonstressed , ambulatory subject supports the diagnosis of Diabetes Mellitus. Point of Care testing Diagnostic Imaging Reports Author Gerber Medeiros [facility] Authored February 24, 2025 4:20p m Report Dictated Date/Time Dictated By Status Radiology Report February 24, 2025 4:20pm Gerber Medeiros DO completed [facility] [place] [address] XRay Report Signed Patient: Florentino Decker MR#: [id number] : 1970 Acct:[id number] Age/Sex: 54 / M ADM Date: 5 Loc: Room: [address] [place] [address] Type: ADM IN Attending Dr: Irwin Theodore [...] Medeiros M.D. 02/24/2025 4:29 PM Dictation Location: [place] [address] Transcribed By: [facility] 02/24/25 1629 Dictated By: Gerber Medeiros DO 02/24/25 1620 Signed By: <Electronically signed by Gerber Medeiros DO in OV> 02/24/25 1629 Author Vj Hendrix [facility] Authored February 25, 2025 9:13a m Report Dictated Date/Time Dictated By Status Radiology Report February 25, 2025 9:13mariza tierney Jr DO completed [facility] Main [place] [address] [place] [address] XRay Report Signed Patient: Florentino Decker MR#: [id number] : 1970 Acct:[id number] Age/Sex: 54 / M ADM Date: 5 Loc: Room: [address] [place] [address] Type: ADM IN Attending Dr: Irwin Theodore [...] FINDINGS. Impression dictated by: Vj Hendrix Jr., D.OEva 02/25/2025 9:14 AM Dictation Location: [place] [address] Transcribed By: [facility] 02/25/25913 Dictated By: Vj Hendrix Jr, DO 02/25/25912 Signed By: <Electronically signed by Vj Hendrix Jr, DO in OV> 02/25/25913 Vital Signs Vital Reading Result Reference Range Collection Date/Time Height 71 [in_i] February 05 1:12pm Weight 90.71 kg February 05 1:12pm Heart Rate 90 /min 60-100 February 05 4:31pm Respiratory rate 16 /min 12-24 February 05, 2025 4:31pm Oxygen saturation by Pulse oximetry 97 % 95-100 February 05, 2025 4:3 1pm BP Systolic 162 mm[Hg] 100-140 February 05 4:31pm BP Diastolic 94 mm[Hg] 60-100 February 05 4:31pm Inhaled oxygen flow rate 1 L/min Jan 4:00pm Body Temperature 98.2 [degF] 97.6-99.0 February 23, 2 025 11:10am Heart Rate 82 /min 60-100 February 23, 2025 11:10am Respiratory rate 16 /min 12-February 23, 2 025 11:10am Oxygen saturation by Pulse oximetry 98 % 95-100 February 23, 2025 11:10 am BP Systolic 138 mm[Hg] 100-140 February 23, 2025 11:10am BP Diastolic 88 mm[Hg] 60-100 February 23, 2025 11:10am Height 71 [in_i] February 25, 2025 3:59pm Weight 86.10 kg February 26, 2025 6:00am Body Temperature 98 [degF] 97.6-99.0 February 26, 2 025 1:04pm Heart Rate 93 /min 60-100 February 26, 2025 1:04pm Respiratory rate 20 /min -February 26, 025 1:04pm Oxygen saturation by Pulse oximetry 99 % 95-100 February 26, 2025 1:04p m BP Systolic 141 mm[Hg] 100-140 February 26, 2025 1:04pm BP Diastolic 80 mm[Hg] 60-100 February 26, 2025 1:04pm Inhaled oxygen concentration 45 % February 26, 2025 1:04pm Inhaled oxygen flow rate 2 L/min February 25, 2025 11:00am Height 71 [in_i] April 13, 2025 9:50am Weight 90.00 kg April 13, 2025 9:50am Heart Rate 95 /min 60-100 April 13, 2025 1:07pm Respiratory rate 16 /min -April 13, 2025 1:07pm Oxygen saturation by Pulse oximetry 96 % 95-100 April 13, 2025 1:07 pm BP Systolic 203 mm[Hg] 100-140 April 13, 2025 1:07pm BP Diastolic 98 mm[Hg] 60-100 April 13, 2025 1:07pm Height 71 [in_i] April 13, 2025 1:32pm Weight 89.00 kg April 13, 2025 1:32pm Body Temperature 97.8 [degF] 97.6-99.0 April 13, 2025 1:32pm Heart Rate 93 /min 60-100 April 13, 2025 3:33pm Respiratory rate 20 /min -24 April 13, 2025 3:33pm Oxygen saturation by Pulse oximetry 99 % 95-100 April 13, 2025 3:33 pm BP Systolic 185 mm[Hg] 100-140 April 13, 2025 3:33pm BP Diastolic 94 mm[Hg] 60-100 April 13, 2025 3:33pm Advance Directives Advance Directive Response Recorded Date/ Time Advance Directives No April 05 3:22pm Insurance Providers Guarantor Florentino Decker Address [address] [address] Contact Info. Home Phone: Payer Policy Id Subscriber's Name Subscriber Id Effectiv e Date Expiration Date [facility] [id number] Florentino Dumont Decker [id number] Encounters Encounter Location(s) Arrival/Admit Date Discharge/Depart Date Provider(s) Non-patient / Non-visit -[facility] Dialysis Unit February 05, 2025 5:00am Toby Foley MD Departed Clinical -Lab [facility] February 05, 2025 7:04am February 05, 2025 7:05am Toby Foley MD Departed Surgical Day Care -Interventional Radiology February 05, 2025 12:50pm February 05, 2025 4:50pm Gerber Short MD Non-patient / Non-visit -[facility] February 06, 2025 12:00pm Gerber Short MD Departed Physician/Provi annette Office Visit -[facility] February 23, 2025 11:02am February 23, 2025 11:26am Gerber Short MD Discharged Inpatient -[facility] February 24, 2025 10:04am February 26, 2025 2:57pm Irwin Theodore MD Non-patient / Non-visit -[facility] February 24, 2025 10:34am Junior Mora MD Non-patient / Non-visit -[facility] February 24, 2025 11:49am Pablo Valdez MD Non-patient / Non-visit -[facility] Dialysis Unit March 10, 2025 5:00am Junior Mora MD Departed Clinical -Dialysis March 10, 2025 7:21am March 10, 2025 7:22am Toby Foley MD Non-patient / Non-visit -[facility] March 10, 2025 2:00pm Gerber Short MD Departed Clinical -Dialysis March 31, 2025 6:24am March 31, 2025 6:25am Toby Foley MD Departed Referred -Lab [facility] April 11, 2025 7:02am April 11, 2025 7:03am Junior Mora MD Non-patient / Non-visit -[facility] April 13, 2025 9:37am Patrice Levine MD Departed Emergency -Emergency Room April 13, 2025 1:19pm April 13, 2025 3:45pm Recent Diagnosis Onset Date Admit Date Hemodialysis access, AV graft Unknown Ap ril 2024 12:50pm End-stage renal disease (ESRD) Unknown M ay 2024 11:02am Acute on chronic respiratory failure with hypercapnia Unknown February 24, 2025 10:04am Acute on chronic respiratory failure with hypoxia and hypercapnia Unknown February 24, 2025 10:04am Acute renal failure superimp osed on chronic kidney disease Unknown February 24, 2025 10:04am Anemia of renal disease Unknown February 10:04am Benign hypertension with end-stage renal disease Unknown February 24, 2025 10:04am Cardiac arrest Unknown February 24, 2025 1 0:04am End-stage renal disease needing dialysis Unknown February 24, 2025 10:04am Hypertensive kidney disease with chronic kidney disease stage V Unknown February 24, 2025 10:04am Obstructive sleep apnea (adult) (pediatric) Unkn own February 24, 2025 10:04am Pulmonary edema due to fluid overload Unknown February 24, 2025 10:04am Secondary hyperparathyroidism Unknown Ma y 2024 10:04am Hypertension Unknown April 13, 2025 9:37am Functional Status Observation Response Date Recorded Dressing Patient at Baseline February 26 2:47pm Eating Patient at Baseline February 26 2:47pm Bathing Patient at Baseline February 26 2:47pm Disability Status Patient at Baseline February 26, 2025 2:47pm Functional Status Comment Pt intubated and sedat ed February 24, 2025 10:20am Mental Status Observation Response Date Recorded Cognitive Status Patient at Baseline February 26 025 2:47pm Cognitive/Mental Status Assessments Assessments Diagnosis Onset Date Resolution Status Admit Date [...] hyperparathyroidism resolv ed February 24, 2025 10:04am Hypertension acute April 13 025 9:37am Plan of Treatment Author Gerber Ruizmary jane [facility] Authored February 23, 2025 1:17p m At this time his graft is fu nctioning normally. He felt that the thrill was diminished but he actually means that it is no longer pulsatile. I showed him the difference between a well-functioning graft that is nonpulsatile and 1 that has outflow obstruction. He will keep an eye for any change in the physical examination of his graft. I will set him back up for annual follow-up unless something happens in the meantime Future Tests Future scheduled test information is unavailable Pending Tests Pending diagnostic test information is unavailable Future Visits Future appointment information is unavailable Referrals to Other Providers Reason for Referral Referral Start Date Provider Provider Contact Information Provider Address [facility] Work Phone: [address] [place] [address] Their office is currently unavailable. Please call to schedule a 5 day [facility] Work Phone: [place] [phone] Future Procedures Procedure Name Ordered Date Scheduled Date Discharge Order February 05, 2025 4:46pm February 052024 4:46pm Admit Status Order February 24, 2025 10:51am February 242024 10:51am Discharge Order February 26, 2025 2:43pm February 26, 2025 2:43pm Consult to Nephrology February 24, 2025 10:51am February 24, 2025 10:51am Consult to Pulmonology February 24, 2025 10:51am Ma y 2024 10:51am Discharge Order April 13, 2025 1:06pm March 1:07pm Future Medications Future medication information is unavailable Patient Instructions Instruction Admit Date Fistulogram Angiogram / Angioplasty / Stent Placement Know your Meds February 05, 2025 12:50pm Know your Meds February 24, 2025 10:04 am Know your Meds April 13, 2025 9:37 am High blood pressure - ED discharge instr uctions April 13, 2025 1:19pm Goals Acute Goals Author Authored Date Exhibit optimal tissue perfu tristan * Exhibits adequate oxygenation and ventilation * Exhibits adequate cardiac output * Regains stable cardiac rhythm * Maintains optimal activity level * Maintains balanced intake and output [facility] February 26, 2025 2:57pm Skin integrity intact [facility] February 26, 2025 2:57pm Maintain/increase activity l evels * Understands factors that may lead to activity intolerance * Helps perform self care activities * Maintains maximum range of motion * Increase/regain muscle mass and strength * Maintains VS WNL during activity * Maintain intact skin integrity Updated: 11/27/2022 [facility] February 26, 2025 2:57pm Fall Prevention 2022 [facility] February 26, 2025 2:57pm Identify potential risk fact ors * Relates intent to use safety measures * Relates intent to use prevention measures [facility] February 26, 2025 2:57pm Remain free of injury [facility] February 26, 2025 2:57pm Preferences Type Detail Treatment Intervention Code Status: Full Code Hospital Discharge Instructions Additional Instructions Nothing to eat or drink after midnight return if symptoms are worse You may return at any time Continue current meds Follow-up for your surgery at [address] Levine
--- OUTSIDE RECORDS SUMMARY | 2025-04-13 18:09 | XMS_ITS | Encounter Summary ---
Author Organization [facility] Address [address] [place] [address] Care Team Providers Care Helpdesk Manager Name Role Phone SeaEdShantell PROFESSIONAL HEALTHCARE REPRESENTATIVE-C Primary Care Provider + Adrian Dennis MD Unavailable Andrew Steward MD Unavailable Rashmi Simmons MD Unavailable [phone] Fang Crystal BIRTH ATTENDANT Unavailable Angela Mccarthy BIRTH ATTENDANT Unavailable Reason for Visit * Reason Comments Med Refill Encounter Details Date Type Department Care Team (Late st Contact Info) Description 01/09/2024 Refill [facility] [address] [address] Fang Crystal CNP [address] [address] B12 deficiency Social History Tobacco Use Types Packs/Day Years Used Date Smoking Tobacco: Every Day Cigarettes 1 35 Smokeless Tobacco: Never Alcohol Use Standard Drinks/Week Comments Not Currently 0 (1 standard drink = 0.6 oz pur e alcohol) [facility] Utilities Answer Date Recorded In the past 12 months has th e electric, gas, oil, or water company threatened to shut off services in your home? No 12/19/2023 Humiliation, Afraid, Rape, and Kick questionnair e Answer Date Recorded Within the last year, have y ou been afraid of your partner or ex-partner? No 12/21/2023 Within the last year, have y ou been humiliated or emotionally abused in other ways by your partner or ex-partner? No Within the last year, have y ou been kicked, hit, slapped, or otherwise physically hurt by your partner or ex-partner? No 12/21/2023 Within the last year, have y ou been raped or forced to have any kind of sexual activity by your partner or ex-partner? No 12/21/2023 Overall Financial Resource Strain (CARDIA) Answe r Date Recorded How hard is it for you to pa y for the very basics like food, housing, medical care, and heating? Not very hard 12/19/2023 PHQ-2 Answer Date Recorded Patient Health Questionnaire-2 Score 0 01/04/2024 Transportation Answer Date Recorded In the past 12 months, has l ack of transportation kept you from medical appointments or from getting medications? No 12/19/2023 Lack of Transportation (Non-Medical) Not on file 12/19/2023 Housing Stability Vital Sign Answer Ramirez e Recorded Unable to Pay for Housing in the Last Year Not o n file 12/19/2023 Number of Places Lived in the Last Year Not on f ile 12/19/2023 In the last 12 months, was t here a time when you did not have a steady place to sleep or slept in a senior living (including now)? No 12/19/2023 Hunger Vital Sign Answer Date Recorded Within the past 12 months, y ou worried that your food would run out before you got the money to buy more. Never true 12/19/19 24 Ran Out of Food in the Last Year Not on file 12/19/2023 Sex and Gender Information Value Date Recorded Sex Assigned at Male 06/21/2023 1:13 PM EDT Legal Sex Male 12:37 AM EDT Gender Identity Male 06/21/2023 1:13 PM EDT Sexual Orientation Heterosexual or Straight 04/2023 1:13 PM EDT documented as of this encounter Miscellaneous Notes * Telephone Encounter - Kerri Kimball MD - 01/09/2024 11:56 PM EDT Approving, but needs appt for additional refills. documented in this encounter Plan of Treatment Not on file documented as of this encounter Visit Diagnoses Diagnosis B12 deficiency documented in this encounter Additional Health Concerns Infection Onset Date Last Indicated Resolved Time MRSA Comment:Added from external infection. 04/26/2024 COVID-19 Rule-Out Comment:negative 05/27/2024 05/27/2024 05/28/2024 10:09 AM EDT documented as of this encounter Care Teams Helpdesk Manager Relationship Specialty Start Date End Date Shantell Osei FNP-C [address] [place] [address] PCP - General 12/20/22 Adrian Dennis MD [address] [facility] [place] [phone] Consulting Physician Urology 01/24/23 Andrew Steward MD [address] [facility] [address] [place], [place] [id number] Cardiology 08/22/23 Rashmi Simmons MD [address] [place] [address] Consulting Physician Hematology and Oncology 12/19/23 Fang Crystal CNP [address] [place] [id number] Nurse Practitioner Hematology and Oncology 12/21/23 Angela Mccarthy, JANE [address] [facility] [place] [phone] Consulting Physician Hematology and Oncology 01/11/24 documented as of this encounter
--- OUTSIDE RECORDS SUMMARY | 2025-04-13 18:09 | XMS_ITS | Encounter Summary ---
Author Organization [facility] Address [address] [place] [address] Care Team Providers Care Ski Base Trimmer Name Role Phone SeaEdShantell HEALTH AID-C Primary Care Provider + Adrian Dennis MD Unavailable Andrew Steward MD Unavailable [phone] Rashmi Simmons MD Unavailable [phone] Fang Crystal HISTOLOGIST Unavailable [phone] Angela Mccarthy HISTOLOGIST Unavailable Reason for Visit * Reason Onset Date Comments Med Refill 03/30/2025 Encounter Details Date Type Department Care Team (Late st Contact Info) Description 03/30/2025 Refill [facility] [address] [place] [address] Sherly Goldsmith MA 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 No 09/22/2024 Humiliation, Afraid, Rape, and Kick questionnair e Answer Date Recorded Within the last year, have y ou been afraid of your partner or ex-partner? No 09/22/2024 Emotionally Abused Not on file 09/22/2024 Physically Abused Not on file 09/22/2024 Sexually Abused Not on file 09/22/2024 Overall Financial Resource Strain (CARDIA) Answe r Date Recorded How hard is it for you to pa y for the very basics like food, housing, medical care, and heating? Not hard at all 09/22/2024 PHQ-2 Answer Date Recorded Patient Health Questionnaire-2 Score 0 07/18/2024 Transportation Answer Date Recorded In the past 12 months, has l ack of transportation kept you from medical appointments or from getting medications? No 09/22/2024 Lack of Transportation (Non-Medical) Not on file 09/22/2024 Housing Stability Vital Sign Answer Ramirez e Recorded In the last 12 months, was t here a time when you were not able to pay the mortgage or rent on time? No 09/22/2024 Number of Times Moved in the Last Year Not on fi le 09/22/2024 At any time in the past 12 m [facility], were you homeless or living in a [facility] (including now)? No 09/22/2024 Hunger Vital Sign Answer Date Recorded Within the past 12 months, y ou worried that your food would run out before you got the money to buy more. 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 04/26/2024 documented as of this encounter Care Teams Ski Base Trimmer Relationship Specialty Start Date End Date Shantell Osei FNP-C [address] [place] [address] PCP - General 12/20/22 Adrian Dennis MD [address] [place] [address] Consulting Physician Urology 01/24/23 Andrew Steward MD [address] [facility] [address] [place] [address] Cardiology 08/22/23 Rashmi Smimons MD [address] [place] [address] Consulting Physician Hematology and Oncology 12/19/23 Fang Crystal CNP [address] [place] [address] Nurse Practitioner Hematology and Oncology 12/21/23 Angela Mccarthy, JANE [address] [place] [address] Consulting Physician Hematology and Oncology 01/11/24 documented as of this encounter
--- OUTSIDE RECORDS SUMMARY | 2025-04-13 18:09 | XMS_ITS | Referral Summary ---
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) 02/16/2025 11:30 AM EDT Office Visit [address] [address] Dakota Helms MD Primary hypertension (Primary Dx); Mixed hyperlipidemia; Pericardial effusion; Coronary artery disease involving [place] coronary artery of [place] heart without angina pectoris; PAD (peripheral artery disease); Status post insertion of drug eluting coronary artery stent; Bilateral carotid artery stenosis; History of cerebrovascular accident; ESRD (end stage renal disease) on dialysis (CMS/HCC) from Last 3 Months Allergies Active Allergy Reactions Criticality Noted Date Comments Iodinated Contrast Media Unknown 09/25/2022 D/T Kidney function, not true allergy. Iodine Unknown 02/13/2023 Sulfa (Sulfonamide Antibiotics) 08/12/2016 Muscle twitch Medications aspirin 81 mg chewable tablet Chew 81 mg in the morning. Active atorvastatin (Lipitor) 40 mg tablet Take 40 mg by mouth in the morning. Active carvedilol (Coreg) 25 mg tablet Take 25 mg by mouth with breakfast and with evening meal. Total dose is 31.25mg oral twice daily Active Nephro-Vianca 0.8 mg tablet Take 0.8 mg by mouth in the morning. 2 Active gabapentin (Neurontin) 300 mg capsule Take 300 mg by mouth in the morning and at bedtime. Active hydrALAZINE (Apresoline) 100 mg tablet Take 100 mg by mouth in the morning and at bedtime. 2 Active lisinopril 20 mg tablet Take 10 mg by mouth two times daily. 2 Active levothyroxine (Synthroid, Levoxyl) 100 mcg tablet Take 112 mcg by mouth before breakfast. Active albuterol 90 mcg/actuation inhaler every 4 (four) hours. 4 Active cyanocobalamin (Vitamin B-12) 1,000 mcg/mL injectionIndica tions:B12 deficiency INJECT 1ML INTO SHOULDER/THIGH OR BUTTOCKS ONCE A WEEK FOR 6 DOSES 1 mL 2 4 Active Additional Information Patient not taking.Reported on 02/16/2025 midodrine (Proamatine) 5 mg tablet Take 5 mg by mouth three times daily. 4 Active nicotine (Nicoderm CQ) 14 mg/24 hr patchIndication s:Tobacco abuse,CAD, multiple vessel,PAOD (peripheral arterial occlusive disease) Place 1 patch on the skin 1 (one) time each day at the same time. 28 patch 6 4 Active isosorbide mononitrate ER (Imdur) 30 mg 24 hr tabletIndicatio ns:Coronary artery disease involving [place] coronary artery of [place] heart with angina pectoris Take 1 tablet (30 mg) by mouth once daily as directed. Do not crush or chew. 90 tablet 3 5 026 Active carvedilol (Coreg) 12.5 mg tabletIndicatio ns:Primary hypertension,Co ronary artery disease involving [place] coronary artery of [place] heart without angina pectoris Take 1 tablet (12.5 mg) by mouth with breakfast and with evening meal. 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) TAKE 1 TABLET (75 MG) BY MOUTH IN THE MORNING 90 tablet 3 4 025 Discontin ued(Reord er) Active Problems Problem Noted Date Diagnosed Date Nicotine dependence, unspecified, uncomplicated 02/16/2025 CAD, multiple vessel 09/23/2024 Multiple vessel coronary artery disease 09/23/20 Unstable angina 09/22/2024 Personal history of transien t ischemic attack (TIA), and cerebral infarction without residual deficits 06/12/2024 Coagulation defect, unspecified 06/09/2024 Leukocytosis 06/04/2024 Acute hypoxic respiratory failure 05/27/2024 NSTEMI (non-ST elevated myocardial infarction) 0 04/27/2024 Acute on chronic diastolic (congestive) heart fa ilure 04/26/2024 Lymphadenopathy, axillary 03/12/2024 Lymphadenopathy 02/07/2024 B12 deficiency 12/19/2023 Coronary artery disease with angina pectoris 10/2023 Coronary artery disease invo lving [place] coronary artery of [place] heart without angina pectoris 12/13/2023 Preop cardiovascular exam 11/30/2023 Abnormal cardiovascular stress test 11/30/2023 Acute hyperkalemia 11/19/2023 11/19/2023 Acute on chronic respiratory failure with hypoxia and hypercapnia 11/19/2023 11/19/2023 Cellulitis 11/19/2023 11/19/2023 CKD (chronic kidney disease) stage 5, GFR less than 15 ml/min 11/19/2023 11/19/2023 Acute pulmonary edema 11/19/2023 11/19/2023 COPD exacerbation 11/19/2023 11/19/2023 Hypokalemia 11/19/2023 11/19/2023 Hyponatremia 11/19/2023 11/19/2023 Secondary hyperparathyroidism 11/19/2023 Hypothyroid 11/19/2023 11/19/2023 Hypertensive kidney disease with chronic kidney disease stage V 11/19/2023 11/19/2023 Uremia 11/19/2023 11/19/2023 Peripheral neuropathy 10/18/2023 Dependence on renal dialysis 06/27/2023 Smokers' cough 06/27/2023 06/27/2023 Aortoiliac occlusive disease 05/31/2023 Encounter for pre-operative examination 05/31/20 Hypertension 05/31/2023 Bilateral carotid artery stenosis 09/26/2022 Acquired hypothyroidism 09/26/2022 Tobacco abuse 09/26/2022 Obesity 09/26/2022 STEFANIE (obstructive sleep apnea) 09/26/2022 Hyperlipidemia 09/26/2022 Heart palpitations 09/26/2022 History of CHF (congestive heart failure) 2021 Vitamin D deficiency 09/26/2022 Anemia of renal disease 09/26/2022 Cerebrovascular accident (CV A) due to stenosis of left carotid artery 08/25/2021 End-stage renal disease needing dialysis 021 Assessment & Plan (12/20/2022 9:44 AM EST): Getting segmental PVR and CT angiogram abdomen pelvis with runoff to better identify the degree and distribution of occlusive disease and come up with a plan of management of revascularization if needed to improve the blood flow where he become a transplant candidate. History of Cu[place] thyroiditis 01/08/2015 Depression 05/20/2014 GERD (gastroesophageal reflux disease) 4 HTN (hypertension) 05/20/2014 Immunizations Immunization Administration Dates Next Due Td (adult) 05/20/2010 Td (adult), 5 Lf tetanus tox oid, preservative free, adsorbed 05/20/2010 Social History Tobacco Use Types Packs/Day Years Used Date Smoking Tobacco: Former Cigarettes 1 35 Smokeless Tobacco: Never Tobacco Cessation:Counseling Given: Not Answered Alcohol Use Standard Drinks/Week Comments Not Currently 0 (1 standard drink = 0.6 oz pur e alcohol) [facility] Utilities Answer Date Recorded In the [...] any time in the past 12 m [facility], were you homeless or living in a [facility] (including now)? No 09/22/2024 Hunger Vital Sign [...] Heterosexual or Straight 04/2023 1:13 PM EDT Last Filed Vital Signs Vital Sign Reading Time Taken Comments Blood Pressure 180/95 02/16/2025 11:44 AM EDT Pulse 105 02/16/2025 11:44 AM EDT Temperature 36.2 C (97.2 F) 09/23/2024 11:11 AM EST Respiratory Rate 20 09/23/2024 1:43 PM EST Oxygen Saturation 98% 02/16/2025 11:44 AM EDT Inhaled Oxygen Concentration - - Weight 89.8 kg (198 lb) 02/16/2025 11:44 AM EDT Height 180.3 cm (5' 11 ) 02/16/2025 11:44 AM EDT Body Mass Index 27.62 02/16/2025 11:44 AM EDT Plan of Treatment Not on file Medical Devices Implanted Type Area Robotic Toy Inventor Device Identifier Shelf Expiration Date Model / Serial / Lot Graft,Knitted ,[id number] - [id number] - [id number] Implanted:Qty : 1 on 06/20/2023 by Lul Huynh MD at [facility] Collagen N/A: Abdomen [employer] [id number] 11/14/2027 [id number] / [id number] / [id number] Stent,Synergy Brendan,Etienne 4.0x16m - [id number] - [id number] Implanted:Qty : 1 on 09/22/2024 by Andrew Steward MD at [facility] Stent [employer] [id number] 06/19/2025 [id number] / [id number] / [id number] Additional Health Concerns Infection Onset Date Last Indicated MRSA Comment:Added from external infection. 04/26/2024 Insurance [employer] Advance Directives * Full Code (Latest Code Status on File) Date Activated Date Inactivated Comments 09/22/2024 10:24 AM 09/23/2024 4:24 PM * Full Code Date Activated Date Inactivated Comments 05/30/2024 5:06 PM 05/31/2024 7:35 PM * Full Code Date Activated Date Inactivated Comments 05/27/2024 1:00 PM 05/30/2024 5:06 PM * Full Code Date Activated Date Inactivated Comments 12/13/2023 6:38 PM 12/14/2023 7:57 PM * Full Code Date Activated Date Inactivated Comments 12/13/2023 2:00 PM 12/13/2023 6:38 PM Care Teams Special Education Preschool Teacher Relationship Specialty Start Date End Date Shantell Osei FNP-C [address] [place] [address] PCP - General 12/20/22 Adrian Dennis MD [address] [facility] [place] [phone] Consulting Physician Urology 01/24/23 Andrew Steward MD 1000 [facility] [address] [place], [place] [id number] Cardiology 08/22/23 Rashmi Simmons MD [address] [place] [address] Consulting Physician Hematology and Oncology 12/19/23 Fang Crystal CNP [address] [place] [address] Nurse Practitioner Hematology and Oncology 12/21/23 Angela Mccarthy, JANE [address] [place] [address] Consulting Physician Hematology and Oncology 01/11/24
--- OUTSIDE RECORDS SUMMARY | 2025-04-13 18:09 | XMS_ITS | Clinical Summary ---
Author Organization [facility] Address [address] [place] [address] Care Team Providers Care Nuclear Cardiology Technologist Name Role Phone Shantell Osei DIRECTOR OF STRATEGIC SALES-C Primary Care Provider + Adrian Dennis MD Unavailable Andrew Steward MD Unavailable Rashmi Simmons MD Unavailable [phone] Fang Crystal DIVIDER OPERATOR Unavailable [phone] Angela Mccarthy DIVIDER OPERATOR Unavailable Allergies Active Allergy Reactions Criticality Noted Date [...] 24 hr tabletIndicatio ns:Coronary artery disease involving [place] coronary artery of [place] heart with angina pectoris Take 1 tablet (30 mg) by mouth once daily as directed. Do not crush or chew. 90 tablet 3 5 026 Active carvedilol (Coreg) 12.5 mg tabletIndicatio ns:Primary hypertension,Co ronary artery disease involving [place] coronary artery of [place] heart without angina pectoris Take 1 tablet [...] 09/23/2024 Multiple vessel coronary artery disease 09/23/20 24 Unstable angina 09/22/2024 Personal history of transien [...] pectoris 10/2023 Coronary artery disease invo lving [place] coronary artery of [place] heart without angina pectoris 12/13/2023 Preop cardiovascular [...] (gastroesophageal reflux disease) 4 HTN (hypertension) 05/20/2014 Encounters Date Type Department Care Team Description 03/30/[address] [address] Sherly Goldsmith MA 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) 02/16/2025 11:30 AM EDT Office Visit [address] [address] Dakota Helms MD Primary hypertension (Primary Dx); Mixed hyperlipidemia; Pericardial effusion; Coronary artery disease involving [place] coronary artery of [place] heart without angina pectoris; PAD (peripheral artery disease); Status post insertion of drug eluting coronary artery stent; Bilateral carotid artery stenosis; History of cerebrovascular accident; ESRD (end stage renal disease) on dialysis (CMS/HCC) from Last 3 Months Immunizations Immunization Administration Dates Next Due Td (adult) 05/20/2010 Td (adult), 5 Lf tetanus tox oid, preservative free, adsorbed 05/20/2010 Family History Medical History Relation Name Comments Hypertension Brother Mental illness Brother No Known Problems Daughter Heart failure Father age 5 7 Hypertension Father Mental illness Father Stroke Father Heart disease Maternal Grandmother Cardia c pacemaker in situ Asthma Mother COPD Mother Emphysema Mother Heart attack Mother Heart disease Mother Mental illness Mother No Known Problems Sister 1 No Known Problems Sister 2 No Known Problems Sister 3 No Known Problems Sister 4 Suicidality Sister 5 age 36 Relation Name Status Comments Brother Alive Daughter Alive Father Maternal Grandmother Mother Sister 1 Alive Sister 2 Alive Sister 3 Alive Sister 4 Alive Sister 5 Social History Tobacco Use Types Packs/Day Years Used Date Smoking Tobacco: Former Cigarettes 1 35 Smokeless Tobacco: Never Tobacco Cessation:Counseling Given: Not Answered Alcohol Use Standard Drinks/Week Comments Not Currently 0 (1 standard drink = 0.6 oz pur e alcohol) [facility] Utilities Answer Date Recorded In the past 12 months has th e [employer], gas, oil, or water [employer] threatened to shut off services in your [...] any time in the past 12 m [facility], were you homeless or living in a fci (including now)? No 09/22/2024 Hunger Vital Sign [...] 02/16/2025 11:44 AM EDT Plan of Treatment Health Maintenance Due Date Last Done Comments CT Colonography 1968 Colonoscopy 1968 Colorectal Cancer Screening 1968 FIT-DNA 1968 FIT 1968 FOBT 1968 Medicare Annual Wellness (AWV) 1968 Sigmoidoscopy 1968 COVID-19 Vaccine (#1) 1973 Hepatitis B Vaccines (1 of 3 - 19+ 3-dose series) 1987 Pneumococcal Vaccine: Pediatrics (0 to 5 Years) and At-Risk Patients (6 to 64 Years) (1 of 2 - PCV) 1987 Zoster Vaccines (1 of 2) 1987 Adult Tetanus 05/20/2020 05/20/2010, 05/20/2010 Influenza Vaccine (Season Ended) 2025 Depression Screening 07/18/2025 07/18/2024 HIB Vaccines Aged Out No longer eligi ble based on patient's age to complete this topic HPV Vaccines Aged Out No longer eligi ble based on patient's age to complete this topic IPV Vaccines Aged Out No longer eligi ble based on patient's age to complete this topic Meningococcal B Vaccine Aged Out No l onger eligible based on patient's age to complete this topic Meningococcal Vaccine Aged Out No florencio jose eligible based on patient's age to complete this topic Rotavirus Vaccines Aged Out No longer eligible based on patient's age to complete this topic Medical Devices Implanted Type Area Sewing Machine Operator Floorperson Device Identifier Shelf Expiration Date Model / Serial / Lot Graft,Knitted ,[id number] - [id number] - [id number] Implanted:Qty : 1 on 06/20/2023 by Lul Huynh MD at [facility] Collagen N/A: Abdomen [employer] [id number] 11/14/2027 [id number] / [id number] / [id number] Stent,Synergy Brendan,Etienne [id number] - [id number] - [id number] Implanted:Qty : 1 on 09/22/2024 by Andrew Steward MD at [facility] Stent [employer] [id number] 06/19/2025 [id number] / [id number] / [id number] Additional Health Concerns Infection Onset Date Last [...] 2:00 PM 12/13/2023 6:38 PM Care Teams Nuclear Cardiology Technologist Relationship Specialty Start Date End Date Shantell Osei FNP-C [address] [place] [address] PCP - General 12/20/22 Adrian Dennis MD [address] [facility] [place] [phone] Consulting Physician Urology 01/24/23 Andrew Steward MD [address] [facility] [address] [place], [place] [id number] Cardiology 08/22/23 Rashmi Simmons MD [address] [place] [phone] Consulting Physician Hematology and Oncology 12/19/23 Fang Crystal CNP [address] [place] [id number] Nurse Practitioner Hematology and Oncology 12/21/23 Angela Mccarthy, JANE [address] [facility] [place] [phone] Consulting Physician Hematology and Oncology 01/11/24
--- OUTSIDE RECORDS SUMMARY | 2025-04-13 18:09 | XMS_ITS | Encounter Summary ---
Author Organization [employer] Address [id number] [address] [place] [address] Care Team Providers Care Regulatory Analyst Name Role Phone Shantell Osei MULTIPLE EFFECT EVAPORATOR OPERATOR-[employer] Primary Care Provide r Reason for Referral * Diagnostic Imaging (Routine) - Closed Specialty Diagnoses / Procedures Referred By Contac t Referred To Contact Radiology Diagnoses Pain Procedures MRA neck without contrast External, Scanning Provider Referral ID Status Reason Start Date Expiration Date Visits Re quested Visits Authorized [id number] Closed 06/28/2021 06/28/2022 1 1 * Diagnostic Imaging (Routine) - Closed Specialty Diagnoses / Procedures Referred By Contac t Referred To Contact Radiology Diagnoses Pain Procedures MRA head without contrast External, Scanning Provider Referral ID Status Reason Start Date Expiration Date Visits Re quested Visits Authorized [id number] Closed 06/28/2021 06/28/2022 1 1 * Diagnostic Imaging (Routine) - Closed Specialty Diagnoses / Procedures Referred By Contac t Referred To Contact Radiology Diagnoses Pain Procedures MR brain without contrast External, Scanning Provider Referral ID Status Reason Start Date Expiration Date Visits Re quested Visits Authorized [id number] Closed 06/28/2021 06/28/2022 1 1 Encounter Details Date Type Department Care Team (Late st Contact Info) Description 06/28/2021 Orders Only [facility] External Film Storage [facility] [place] [address] Transcribe, Orders Support User Pain (Primary Dx) Social History Tobacco Use Types Packs/Day Years Used Date Smoking Tobacco: Never Assessed Sex and Gender Information Value Date Recorded Sex Assigned at Not on file Legal Sex Male 10:01 PM EDT Gender Identity Not on file Sexual Orientation Not on file documented as of this encounter Plan of Treatment Not on file documented as of this encounter Results * MRA neck without contrast (06/28/2021 4:00 PM EDT) us Scanning Provider External IMG MRI ORDERABLES Fi nal Result * MR brain without contrast (06/28/2021 11:30 AM EDT) us Scanning Provider External IMG MRI ORDERABLES Fi nal Result * MRA head without contrast (06/28/2021 3:45 AM EDT) us Scanning Provider External IMG MRI ORDERABLES Fi nal Result documented in this encounter Visit Diagnoses Diagnosis Pain- Primary Generalized pain documented in this encounter Care Teams Regulatory Analyst Relationship Specialty Start Date End Date Shantell Osei APRN-JOLENE [facility] [place] [address] PCP - General Family Medicine 06/15/21 documented as of this encounter
--- OUTSIDE RECORDS SUMMARY | 2025-04-13 18:09 | XMS_ITS | Encounter Summary ---
Author Organization [facility] Address [address] [place] [address] Care Team Providers Care Driver Manager Name Role Phone Shantell Osei VALET-C Primary Care Provider + Adrian Dennis MD Unavailable Andrew Steward MD Unavailable [phone] Rashmi Simmons MD Unavailable [phone] Fang Crystal INSTRUCTIONAL SYSTEMS DESIGN CONSULTANT Unavailable Angela Mccarthy INSTRUCTIONAL SYSTEMS DESIGN CONSULTANT Unavailable Reason for Visit * Reason Comments Med Change Request Encounter Details Date Type Department Care Team (Late st Contact Info) Description 02/07/2024 Geovannyill Maisha Esposito [facility] [address] [place] [address] Kerri Kimball MD [address] [place] [address] B12 deficiency Social History Tobacco Use Types Packs/Day Years Used Date Smoking Tobacco: Every Day Cigarettes 1 35 Smokeless Tobacco: Never Alcohol Use Standard Drinks/Week Comments Not Currently 0 (1 standard drink = 0.6 oz pur e alcohol) [facility] Utilities Answer Date Recorded In the past 12 months has e electric, gas, oil, or water [employer] threatened to shut off services in your home? No 02/06/2024 Humiliation, Afraid, Rape, and Kick questionnair e Answer Date Recorded Within the last year, have y ou been afraid of your partner or ex-partner? No 02/06/2024 Within the last year, have y ou been humiliated or emotionally abused in other ways by your partner or ex-partner? No Within the last year, have y ou been kicked, hit, slapped, or otherwise physically hurt by your partner or ex-partner? No 02/06/2024 Within the last year, have y ou been raped or forced to have any kind of sexual activity by your partner or ex-partner? No 02/06/2024 Overall Financial Resource Strain (CARDIA) Answe r Date Recorded How hard is it for you to pa y for the very basics like food, housing, medical care, and heating? Not very hard 02/06/2024 PHQ-2 Answer Date Recorded Patient Health Questionnaire-2 Score 0 02/06/2024 Transportation Answer Date Recorded In the past 12 months, has l ack of transportation kept you from medical appointments or from getting medications? No 02/06/2024 Lack of Transportation (Non-Medical) Not on file 02/06/2024 Housing Stability Vital Sign Answer Ramirez e Recorded Unable to Pay for Housing in the Last Year Not o n file 02/06/2024 Number of Places Lived in the Last Year Not on f ile 02/06/2024 In the last 12 months, was t here a time when you did not have a steady place to sleep or slept in a usp (including now)? No 02/06/2024 Hunger Vital Sign Answer Date Recorded Within the past 12 months, y ou worried that your food would run out before you got the money to buy more. Never true 02/06/20 24 Ran Out of Food in the Last Year Not on file 02/06/2024 Sex and Gender Information Value Date Recorded Sex Assigned at Male 06/21/2023 1:13 PM EDT Legal Sex Male 12:37 AM EDT Gender Identity Male 06/21/2023 1:13 PM EDT Sexual Orientation Heterosexual or Straight 04/2023 1:13 PM EDT documented as of this encounter Miscellaneous Notes * Telephone Encounter - Nohelia Cunha RN - 02/11/2024 9:13 AM EDT RX sent 02/11/2024 documented in this encounter Plan of Treatment Not on file documented as of this encounter Visit Diagnoses Diagnosis B12 deficiency documented in this encounter Additional Health Concerns Infection Onset Date Last Indicated Resolved Time MRSA Comment:Added from external infection. 04/26/2024 COVID-19 Rule-Out Comment:negative 05/27/2024 05/27/2024 05/28/2024 10:09 AM EDT documented as of this encounter Care Teams Driver Manager Relationship Specialty Start Date End Date Shantell Osei FNP-C [address] [place] [address] PCP - General 12/20/22 Adrian Dennis MD [address] [place] [phone] Consulting Physician Urology 01/24/23 Andrew Steward MD [address] [facility] [address] [place], [place] [phone] Cardiology 08/22/23 Rashmi Simmons MD [address] [place] [phone] Consulting Physician Hematology and Oncology 12/19/23 Fang Crystal CNP [address] [place] [id number] Nurse Practitioner Hematology and Oncology 12/21/23 Angela Mccarthy, JANE [address] [facility] [phone] Consulting Physician Hematology and Oncology 01/11/24 documented as of this encounter
--- OUTSIDE RECORDS SUMMARY | 2025-04-13 18:10 | XMS_ITS ---
Author Name [facility] Address [address] [place] [address] Phone [phone] Organization [facility] e, NA DOCUMENT DISCLAIMER Multiple document versions may exist, please be sure you review the latest version. The information in the [facility] Continuity of Care Document represents a summary of certain health and medical information. It may not contain the complete medical history for the patient and should be independently verified. The represented time in the document is Eastern Time. 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) use of antithrombotics/antiplatele ts Z79.02 Active April 10, 2025 Secondary hyperparathyroidism of renal origin N25.81 Active April 10, 2025 Atherosclerotic heart diseas e of [place] coronary artery without angina pectoris I25.10 Active April 10, 2025 Hypertensive chronic kidney disease with stage 5 chronic kidney disease or end stage renal disease I12.0 Active April 10, 2025 Hyperlipidemia, unspecified E78.5 Active April 10, 2025 Hypothyroidism, unspecified E03.9 Active April 10, 2025 Anemia in chronic kidney disease D63.1 Active April 10, 2025 Other iron deficiency anemias D50.8 Active April 10, 2025 End stage renal disease N18.6 Active Dago 2021 Hypertensive chronic kidney disease with stage 1 through stage 4 chronic kidney disease, or unspecified chronic kidney disease I12.9 Active January 02, 2022 ALLERGIES AND ADVERSE REACTIONS Substance Reaction Severity Status IODINE Unknown Active SOCIAL HISTORY Tobacco Use Status Tobacco Type Unknown if ever consumed tobacco - Caregiver Characteristics No Information Available Characteristics of Home environment No Information Available Gender and Sex Information Gender Identity Sexual Orientation No Information Available No Information Available MEDICATIONS No Medications VITAL SIGNS Weight Vital Sign Value Date / Time Estimated Dry Weight 84 kg Guadalupe 05, 20 25 11:59 PM Other Other Value Date / Time Height 182.88 cm June 14, 2024 12:00 AM LAB RESULTS Infectious Diseases Result Type Result Value Relevant Referen ce Range Interpretation Date Hep B Surface Ag (HBsAg) negative No Reference Range Provided Normal April 10, 2025 DIALYSIS PRESCRIPTION Conventional Hemodialysis Data Element Value Order Date/Time April 18, 2025 Frequency 1X Week Treatment Days Sat Dialyzer 180NRe Optiflux Treatment Time (Total Minutes) 240 min Blood Flow Rate (mL/min) 400 mL/min Dialysate Flow Rate Manual 600 Estimated Dry Weight 84 kg Dialysate Concentrate 1.0 K, 2.5 Ca, 1.0 Mg, 100 Dextrose (N1251) Sodium (mEq/L) 137 mEq/L Bicarb Machine Setting (mEq/L) 37 mEq/L Dialysis Access Hemodialysis-AV Andrea t-Unknown, Left Forearm, Other/Unknown Arterial Needle Size 15g1 Venous Needle Size 15g1 TRANSPLANT WAITLIST STATUS No Information on Transplant Waitlist Status ADVANCE DIRECTIVES Directive Description Ordered By Effective Date Resuscitation status Full Code Ace Dumont Apr
--- OUTSIDE RECORDS SUMMARY | 2025-04-13 18:10 | XMS_ITS | Continuity of Care Document ---
Author Organization [facility] Address [address] [place] [address] Phone [phone] Care Team Providers Care Agricultural Agent Name Role Phone Shantell Osei TANK WASHER-C Care Team Information R eceiver [phone] Family History Date Family Member(s) Observation Comments Father due to Unknown Caus es () Father Mental Illness Father Stroke Father Hypertension Mother due to Unknown Caus es () Mother Chronic Obstructive Pulmonar y Disease (COPD) Mother Mental Illness Mother Heart Disease Social History Type Date Description Comments Sex Male Occupation [employer] ETOH Use Denies alcohol use Recreational Drug Use Denies Drug Use Tobacco Use Start: Unknown Heavy tobacco sm oker (more than 10 cigarettes/day) Results Test Acquired Date Facility Test Result H/L Range N ote .CMP 02/14/2022 [facility] (000)-000-000 0 .Albumin 4.0 .Alt 17 .Calcium 8.9 .Carbon Dioxide 25 .Chloride 94 .Creatinine-LC 2.55 .Glucose Serum 105 .Alkaline Phos 112 .Potassium 3.0 .Protein-Total 8.1 .Sodium 132 .Ast 16 .BUN 26.0 .GFR 27 .CBC W/O Differential 02/14/2022 [facility] (000)-000-000 0 .Hematocrit 39.2 .Hemoglobin Blood 13.9 .Platelet Count Blood 303 .Red Blood Count 3.85 RDW 12.6 .White Blood Count 11.7 MCH (Corpuscula r Hemoglobin) 36.1 MCHC (Corpuscular Hemog Conc) 35.5 MPV 8.9 MCV (Corpuscula r Volume) 101.8 Xray 12/30/2021 [facility] vein mapping SEE REPORT Xray 12/05/2021 [facility] Ultrasound, Bladder SEE REPORT .Renal Panel 11/28/2021 [facility] (000)-000-000 0 .Albumin 3.5 .Calcium 8.9 .Carbon Dioxide 22.7 .Chloride 106 .Phosphorus 3.5 .Potassium 5.4 .Sodium 136 .BUN 36.0 .GFR 22 .Creatinine-LC 3.00 .Magnesium 11/28/2021 [facility] (000)-000-000 0 .Magnesium 2.3 .CMP 11/26/2021 [facility] (000)-000-000 0 .Albumin 3.9 .Alt 10 .Calcium 9.1 .Carbon Dioxide 18.1 .Chloride 101 .Creatinine-LC 5.16 .Glucose Serum 89 .Alkaline Phos 89 .Potassium 5.3 .Protein-Total 7.2 .Sodium 131 .Ast 10 .BUN 49 .GFR 12 .Magnesium 11/26/2021 [facility] (000)-000-000 0 .Magnesium 2.2 Xray 10/29/2021 [facility] Ultrasound Kidneys SEE REPORT .Hemoglobin And Hematocrit 09/13/2021 [facility] (000)-000-000 0 .Hemoglobin Blood 12.9 .Hematocrit 38.3 .CMP 09/13/2021 [facility] (000)-000-000 0 .Albumin 3.7 .Alt 20 .Calcium 9.3 .Carbon Dioxide 23.7 .Chloride 103 .Creatinine-LC 2.16 .Glucose Serum 101 .Alkaline Phos 113 .Potassium 3.8 .Protein-Total 8.2 .Sodium 137 .Ast 8 .BUN 18.0 .GFR 32 .Renal Panel 08/08/2021 [facility] (000)-000-000 0 .Albumin 3.6 .Calcium 8.9 .Carbon Dioxide 24.4 .Chloride 103 .Phosphorus 3.6 .Potassium 5.0 .Sodium 134 .BUN 32.0 .GFR 23 .Creatinine-LC 2.88 .Hemoglobin And Hematocrit 06/27/2021 [facility] (000)-000-000 0 .Hemoglobin Blood 14.4 .Hematocrit 43.6 .CMP 06/27/2021 [facility] (000)-000-000 0 .Albumin 3.9 .Alt 26 .Calcium 9.3 .Carbon Dioxide 21 .Chloride 102 .Creatinine-LC 4.34 .Glucose Serum 119 .Alkaline Phos 107 .Potassium 4.5 .Protein-Total 8.3 .Sodium 137 .Ast 15 .BUN 43.0 .GFR 14 PTH Intact And Calcium 05/27/2021 [facility] (000)-000-000 0 .Ipth 42 .Calcium 9.5 .Iron Studies-LC 05/27/2021 [facility] (000)-000-000 0 .Iron 33 .Ferritin 192.0 .Tibc-LC 295.0 .Renal Panel 05/27/2021 [facility] (000)-000-000 0 .Albumin 3.8 .Calcium 9.5 .Carbon Dioxide 33.5 .Chloride 100 .Phosphorus 3.5 .Potassium 3.6 .Sodium 139 .BUN 16.0 .GFR 29 .Creatinine-LC 2.39 .Magnesium 05/27/2021 [facility] (000)-000-000 0 .Magnesium 2.2 .Hemoglobin And Hematocrit 05/27/2021 [facility] (000)-000-000 0 .Hemoglobin Blood 13.7 .Hematocrit 40.2 .Urine 24HR Creatinine 04/29/2021 [facility] (000)-000-000 0 Creatinine 24HR Urine 2175.05 Total Volume Urine 0 .urine creatinine 106.10 Creatinine 2.42 .Urine Creatinine Clear.-24hr 04/29/2021 [facility] (000)-000-000 0 .Urine Creatinine Clear.-24hr 45.95 .Renal Panel 04/29/2021 [facility] (000)-000-000 0 .Albumin 3.7 .Calcium 9.8 .Carbon Dioxide 30.9 .Chloride 100 .Phosphorus 3.3 .Potassium 3.6 .Sodium 139 .BUN 29 .GFR 28 .Creatinine-LC 2.42 .Hemoglobin And Hematocrit 04/06/2020 [facility] (000)-000-000 0 .Hemoglobin Blood 16.8 .Hematocrit 46.4 .CMP 04/06/2020 [facility] (000)-000-000 0 .Albumin 3.8 .Alt 13 .Calcium 9.0 .Carbon Dioxide 23 .Chloride 101 .Creatinine-LC 2.02 .Glucose Serum 100 .Alkaline Phos 85 .Potassium 4.3 .Protein-Total 7.9 .Sodium 137 .Ast 32 .BUN 18 .GFR 35 .Vitamin D, 25 Hydroxy 04/06/2020 [facility] (000)-000-000 0 .Vitamin D, 25 Hydroxy <20 .Lipid Panel 04/06/2020 [facility] (000)-000-000 0 .Cholesterol 227 .Cholester/HDL Ratio 8.4 High Density Lipoprotein 27 .LDL Cholesterol 123 .Triglycerides 385 Encounters Type Date Location Provider Dx Diagnosis Office Visit 04/05/2022 3:00p [place] [facility] Khurram Crowley MD N18.6 End stage renal disease I10 Essential (primary) hypertension E87.6 Hypokalemia Assessments Date Code Description Provider 04/05/2022 N18.6 End stage renal disease Sherri Crowley MD 04/05/2022 I10 Essential (primary) hyperten tristan Khurram Crowley MD 04/05/2022 E87.6 Hypokalemia Marcelo Bolden
--- OUTSIDE RECORDS SUMMARY | 2025-04-13 18:10 | XMS_ITS | Patient Health Record ---
Author Organization [facility] es Address [address] [place] [address] Care Team Providers Care Continuity Manager Name Role Phone Shantell Osei Primary Care Provider Sheryl Brandon Unavailable Piyush Lau Unavailable [phone] Pietro Nava Unavailable [phone] Allergies No Known Allergies Reason For Referral Reason SCHEDULED 02/16 Pt n eeds colonoscopy - he can see local GI and get clearance from Nephro if needed Diagnosis 1 Colon cancer screeni ng (Z12.11) Referral Organization [facility] [place] Referring Provider First Name Shantell Referring Provider Last Name Sea Referring Provider Speciality [facility] Maame morales [facility] Referred Provider Specialty Gastroentero logy Referral Priority Routine Reason *FAXED 03/24 Due fo r colonoscopy Diagnosis 1 Screening due (Z13.9 ) Referral Organization [facility] Referring Provider First Name Pietro Referring Provider Last Name Elijah Referring Provider Speciality [facility] Maame morales Referred Provider [facility] , . Referred Provider Specialty Gastroentero logy Referral Priority Routine Medications Medication SIG (Take, Route, Frequency, Duration) Notes Start Date End Date Status LORazepam 0.5 MG 1 tablet Orally Once a day; Duration: 15 days As needed 03/23/2025 Active Isosorbide Mononitrate ER 30 MG 1 tablet in the morning Orally Once a day; Duration: 90 days Active Lisinopril 20 MG 1 tablet Orally Twice a day; Duration: 90 days Active Gabapentin 300 MG 1 capsule Orally 4 times a day; Duration: 30 days As needed Active Carvedilol 25 MG 1 tablet with food Orally Twice a day; Duration: 90 days Pt wants all of his meds synced. He has ESRD and uses [facility]. I tried to confirm doses best I could. I am not 100% sure on the if he is still on the Plavix or not. Active hydrALAZINE HCl 100 MG 1 tablet with food Orally Twice a day; Duration: 90 days Active Atorvastatin Calcium 10 MG 1 tablet Orally Once a day; Duration: 90 days Active Ovqnijpn-Tmddggtjr-Fb xameth 3.5-55374-5.1 2 drop into affected eye Ophthalmic 3 times a day; Duration: 7 days 01/07/2024 Not-Taking Albuterol Sulfate HFA 108 (90 Base) MCG/ACT 2 puff as needed Inhalation every 4 hrs; Duration: 30 days 05/14/2024 Active amLODIPine Besylate 10 MG TAKE 1 TABLET BY MOUTH EVERY DAY Oral; Duration: 28 Days Not-Taking Carvedilol 12.5 MG 1 tablet with food Orally Twice a day 03/23/2025 Active Minoxidil 10 MG 1 tablet Orally Once a day; Duration: 90 days Not-Taking Levothyroxine Sodium 100 MCG 1 tablet in the morning on an empty stomach Orally Once a day; Duration: 90 days Active Doxycycline Monohydrate 100 MG 1 capsule Orally twice a day; Duration: 10 days 01/07/2024 Not-Taking Plavix 75 MG 1 tablet Orally Once a day Active Mupirocin 2 % 1 application Externally Twice a day; Duration: 5 days 01/07/2024 Not-Taking Carvedilol 12.5 MG 1 tablet with food Orally Twice a day 03/23/2025 Active amLODIPine Besylate 10 MG TAKE 1 TABLET BY MOUTH EVERY DAY Oral; Duration: 28 Days Not-Taking Social History Tobacco Use: Social History Observation Description Date Details (start date - stop date) Current Smoker NA - NA AUDIT-C (Standard) Question Answer Notes Did you have a drink containing alcohol in the p ast year? No Points 0 Interpretation Negative Tobacco Control (Standard) Question Answer Notes Tobacco use: Current smoker How often do you smoke cigarettes? Every day How many cigarettes a day do you smoke? 11-20 How soon after you wake up do you smoke your fir st cigarette? 31-60 minutes Are you interested in quitting? Not ready to ariadne t OPIOID Risk Tool (2018 Edition) Question Answer Notes Family Hx Alcohol? No Family Hx Illegal Drugs? No Family Hx Rx Drugs? No Personal Hx Alcohol? No Personal Hx Illegal Drugs? No Personal Hx Rx Drugs? No Age between 16-45 years? No History of Preadolescent Sexual Abuse? No ADD, OCD, Bipolar, Schizophrenia? No Depression? No TOTAL SCORE 0 Risk Level for Opioid Use low Problems Problem Type SNOMED Code ICD Code Onset Dates Problem Status W/U Status Risk Notes Problem Tobacco user (865492413) Nicotine dependence, unspecified, uncomplicated (F17.200) Active confirmed Problem Essential hypertension (49272460) Essential hypertension (I10) Active confirmed Problem Neuropathy (166878029) Neuropathy (G62.9) Active confirmed Problem Dependence on renal dialysis (067701821) Dependence on renal dialysis (Z99.2) Active confirmed Problem ESRD (end stage renal disease) (N18.6) Active confirmed Problem Acquired hypothyroidism (216825023) Acquired hypothyroidism (E03.9) Active confirmed Problem Smokers' cough (44463225) Smokers' cough (J41.0) Active confirmed Vital Signs Heart Rate 95 /min 03/23/2025 Temperature 98.0 degrees Fahrenheit 03/23/2025 Respiratory Rate 20 /min 03/23/2025 Oximetry 98 % 03/23/2025 Blood pressure diastolic 74 mm Hg 03/23/2025 Height 71 in 03/23/2025 Blood pressure systolic 148 mm Hg 03/23/2025 Weight 193.2 lbs 03/23/2025 BMI 26.94 kg/m2 03/23/2025 Encounters Encounter Location Date Provider Diagnosis [address] [address] 05/14/2024 Shantell Osei Acquired hypothyroidism E03.9 ; Neuropathy G62.9 ; Dependence on renal dialysis Z99.2 ; ESRD (end stage renal disease) N18.6 ; Rash of hand R21 and Smokers' cough J41.[address] [address] 11/04/2024 Shantell Osei Nicotine dependence, unspecified, uncomplicated F17.200 ; ESRD (end stage renal disease) N18.6 ; Dependence on renal dialysis Z99.2 ; Acquired hypothyroidism E03.9 ; Neuropathy G62.9 ; Other infective acute otitis externa of both ears H60.393 ; Smokers' cough J41.0 and Chronic coronary artery disease I25.[address] [place] [address] 01/15/2025 Shantell Osei Acquired hypothyroidism E03.9 ; Chronic coronary artery disease I25.10 ; Nicotine dependence, unspecified, uncomplicated F17.200 ; Colon cancer screening Z12.11 ; ESRD (end stage renal disease) N18.6 ; Neuropathy G62.9 and Dependence on renal dialysis Z99.2 [place] [address] [place] [address] 03/23/2025 Pietro Nava Screening due Z13.9 ; Essential hypertension I10 and ESRD (end stage renal disease) N18.[address] [place] [address] 10/27/2024 Shantell Osei Neuropathy G62.9 and ESRD (end stage renal disease) N18.6 [address] [place] [address] 07/11/2024 Shantell Osei Neuropathy G62.9 and Chronic coronary artery disease I25.10 [facility] [address] [place] [address] 09/29/2024 Shantellbrenda Osei Neuropathy G62.9 [address] [place] [address] [place] [address] 10/17/2024 Shantell Osei Neuropathy G62.9 [place] [address] [place] [address] 10/24/2024 Shantell Osei [place] [address] [place] [address] 04/28/2024 Shantell Osei Assessments Encounter Date Diagnosis (ICD Code) Assessment Notes Treatment Notes Treatment Clinical Notes Section Notes 05/14/2024 Neuropathy (ICD-10 - G62.9) 05/14/2024 Acquired hypothyroidism (ICD-10 - E03.9) Labs drawn today as discussed. Will send medication refills today. If lab work comes back and medication needs to be adjusted will contact patient, otherwise, follow up in 3-4 months, or sooner if needed. 07/11/2024 Neuropathy (ICD-10 - G62.9) 09/29/2024 Neuropathy (ICD-10 - G62.9) 10/17/2024 Neuropathy (ICD-10 - G62.9) 10/27/2024 Neuropathy (ICD-10 - G62.9) Will send enough medication to get patient to next appt which will be coming up within the next few weeks. Follow up in person then. 11/04/2024 Nicotine dependence, unspecified, uncomplicated (ICD-10 - F17.200) 11/04/2024 ESRD (end stage renal disease) (ICD-10 - N18.6) Pt will continue to follow up with Nephro and his transplant team 01/15/2025 Acquired hypothyroidism (ICD-10 - E03.9) Pt is doing well on dose and blood work is frequently through nephro. Meds refilled today 01/15/2025 Chronic coronary artery disease (ICD-10 - I25.10) Medication refilled and continue to follow up with cardiology 03/23/2025 Essential hypertension (ICD-10 - I10) 03/23/2025 Screening due (ICD-10 - Z13.9) Patient is due at this time for colonoscopy. He would like to get this scheduled. I will send referral to general surgery. He notes that he needs to get a colonoscopy done to see a dentist before he can be put on the kidney transplant list. We will do this at this time. Patient is to continue getting his dialysis and seeing employer relations representative as per recommended. Refills are placed at this time. Blood pressure is elevated here today and has been on several occasions in the past. We will increase lisinopril to 20 mg p.o. twice daily. Patient voices understanding of this. I informed patient to continue checking his blood pressure at home. Patient voices understanding and agrees that he will do so. Follow-up in 1 month for blood pressure recheck. We will have the patient sign a medical information release form to obtain the labs he has obtained from nephrology. 03/23/2025 ESRD (end stage renal disease) (ICD-10 - N18.6) 01/15/2025 Nicotine dependence, unspecified, uncomplicated (ICD-10 - F17.200) 11/04/2024 Dependence on renal dialysis (ICD-10 - Z99.2) 10/27/2024 ESRD (end stage renal disease) (ICD-10 - N18.6) Continue to follow up with all of your specialist as we discussed 07/11/2024 Chronic coronary artery disease (ICD-10 - I25.10) 05/14/2024 Dependence on renal dialysis (ICD-10 - Z99.2) Patient continues to work with transplant team to qualify for kidney transplant 05/14/2024 ESRD (end stage renal disease) (ICD-10 - N18.6) COntinue to follow up with nephro 01/15/2025 Colon cancer screening (ICD-10 - Z12.11) Will send in referral 11/04/2024 Acquired hypothyroidism (ICD-10 - E03.9) Recieved latest set of labs that were ordered and scanned into chart, Continue current dose. Follow up in 3 months. 01/15/2025 ESRD (end stage renal disease) (ICD-10 - N18.6) Continue to follow up with nephro 05/14/2024 Rash of hand (ICD-10 - R21) Take medication as directed. 11/04/2024 Neuropathy (ICD-10 - G62.9) Increased dose, patient can take extra 4th dose on as needed basis 05/14/2024 Smokers' cough (ICD-10 - J41.0) Use inhaler as needed. 01/15/2025 Neuropathy (ICD-10 - G62.9) Will continue medications today since patient states that she feels stable on doses 11/04/2024 Other infective acute otitis externa of both ears (ICD-10 - H60.393) 11/04/2024 Smokers' cough (ICD-10 - J41.0) Use inhaler as needed, especially with weather changes. 01/15/2025 Dependence on renal dialysis (ICD-10 - Z99.2) 11/04/2024 Chronic coronary artery disease (ICD-10 - I25.10) Continue medications and follow up with cardio 05/14/2024 Other Body Mass Index : Care Instructions material was printed 11/04/2024 Other Body Mass Index : Care Instructions material was printed 01/15/2025 Other Body Mass Index : Care Instructions material was printed Plan Of Treatment Pending Test Test Name Order Date CBC w/ Auto Diff 05/14/2024 Lipid Panel 05/14/2024 T3 Total 05/14/2024 T4 & TSH 05/14/2024 Next Appt Details Provider Name:Pietro Parra jamal, 05/01/2025 09:00:00 AM, [address], [place], [address], Insurance Providers Payer Name Payer Address Payer Phone Subscriber Number Group Number Insured Name Patient Relationship to Insured Coverage Start Date Coverage End Date MEDICARE CGS 1 [facility] [place] [address] [id number] LEANDER MASSEY Self - patient is the insured 3 [employer] [facility] [address] [place] [address] [id number] LEANDER MASSEY Self - patient is the insured 2 3 [employer] [address] [address] [place] [address] [id number] MASSEY LEANDER Self - patient is the insured 4 5 Medical (General) History Medical History History ICD Code ESRD HYPOTHYROIDISM HTN NERVE PAIN Surgical History Surgery Date(Month/Year) AORTA BLOCKAGE WITH GRAFT 07/2023
--- OUTSIDE RECORDS SUMMARY | 2025-04-13 18:11 | XMS_ITS ---
Author Organization [facility] (HIE interaction) Address [address] [place] [address] Care Team Providers Care Design Printing Machine Set Up Operator Name Role Phone Unavailable Unavailable Unavailable Allergies, Adverse Reactions, Alerts Allergy Name Allergy Type Status Severity Reaction(s) Onset Date Inactive Date Treating Clinician Comments Iodine Allergy Active Unknown 2023-02 19:17:3 0 Problems This patient has no known problems. Procedures Procedure Date / Time Performed Performing Clinician Kim ce Details AV Graft 2022-08-16 04:00:00 Access Site Forearm (Left) Access Use Start Date 2023-02-12 04:00:0 0
--- OUTSIDE RECORDS SUMMARY | 2025-04-13 18:11 | XMS_ITS | Encounter Summary ---
Author Organization [facility] Address [address] [place] [address] Phone Care Team Providers Care Optical Effects Camera Operator Name Role Phone Ace Marr DO Primary Care Provider [phone] Generic Provider, No Assigned Pcp MD Primary Car e Provider Unavailable Encounter Details Date Type Department Care Team (Late st Contact Info) Description 07/12/2021 Orders Only [facility] [address] [place] [address] Conversion, Onbase Social History Tobacco Use Types Packs/Day Years Used Date Smoking Tobacco: Never Assessed Sex and Gender Information Value Date Recorded Sex Assigned at Not on file Legal Sex Male 11:48 AM EST Gender Identity Not on file Sexual Orientation Not on file documented as of this encounter Plan of Treatment Scheduled Orders Name Type Priority Associated Diagnoses Orde r Schedule OUTSIDE LAB SCAN Lab Ordered: 07/12/2021 documented as of this encounter Visit Diagnoses Not on filedocumented in this encounter Care Teams Optical Effects Camera Operator Relationship Specialty Start Date End Date Ace Marr DO [address] [place] [address] PCP - General 06/04/19 05/22/23 Generic Provider, [place] [address] PCP - General Family Medicine 05/23/23 documented as of this encounter
--- OUTSIDE RECORDS SUMMARY | 2025-04-13 18:11 | XMS_ITS | Clinical Summary ---
Author Organization [facility] Address [address] [place] [address] Care Team Providers Care Roller Leveler Name Role Phone Shantell Osei NP Unavailable [phone] Norm Faustin MD Unavailable Allergies No known active allergies Medications acetaminophen (Tylenol Extra Strength) 500 MG tablet every 6 (six) hours Active albuterol HFA 90 mcg/act inhaler every 4 (four) hours 4 Active amLODIPine (Norvasc) 10 MG tablet Take by mouth Daily Active ALPRAZolam (Xanax) 0.5 MG tablet Take 1 tablet by mouth 2 (two) times a day as needed Active aspirin 81 MG EC tablet Take 81 mg by mouth in the morning. Active atorvastatin (Lipitor) 40 MG tablet Take 40 mg by mouth in the morning. Active carvedilol (Coreg) 25 MG tablet Take 25 mg by mouth in the morning and 25 mg before bedtime. Active lisinopril 10 MG tablet Take 10 mg by mouth Daily Active predniSONE (Deltasone) 10 MG tabletIndicatio ns:Psoriasis plantaris Take 2 pills by mouth twice daily for 5 days, take 1 pill twice daily for 5 days then 1 pill once daily for 5 days. 35 tablet 4 Active clobetasol (Temovate) 0.05 % ointmentIndicat ions:Psoriasis plantaris Apply topically 2 (two) times a day 60 g 2 4 Active Active Problems No known active problems Encounters Date Type Department Care Team Description 02/03/2025 11:25 AM EDT Office Visit [facility] [address] [facility] [address] [address] [facility] [address] [place] [address] Darby Sanches NP Abscess of back (Primary Dx) 02/03/2025 Travel from Last 3 Months Social History Tobacco Use Types Packs/Day Years Used Date Smoking Tobacco: Every Day Cigarettes Tobacco Cessation:Ready to Q uit: Not Asked; Counseling Given: Not Answered Sex and Gender Information Value Date Recorded Sex Assigned at Not on file Legal Sex Male 7:09 PM EDT Gender Identity Not on file Sexual Orientation Not on file Last Filed Vital Signs Vital Sign Reading Time Taken Comments Blood Pressure 90/50 02/03/2025 11:39 AM EDT Pulse 140 02/03/2025 11:39 AM EDT Temperature 36.7 C (98 F) 02/03/2025 11:39 AM EDT Respiratory Rate - - Oxygen Saturation - - Inhaled Oxygen Concentration - - Weight 87 kg (191 lb 12.8 oz) 02/03/2025 11:34 A M EDT Height - - Body Mass Index - - Plan of Treatment Health Maintenance Due Date Last Done Comments CT Colonography 1968 Colonoscopy 1968 Colorectal Cancer Screening 1968 FIT-DNA 1968 FIT 1968 FOBT 1968 Medicare Annual Wellness (AWV) 1968 Sigmoidoscopy 1968 Influenza Vaccine (Season Ended) 2025 Insurance [employer] Care Teams Roller Leveler Relationship Specialty Start Date End Date Norm Faustin MD [address] [facility] [address] [place] [address] PCP - Devoted 10/15/24 Shantell Osei NP [address] [place] [address] Referring Physician 08/21/24
--- OUTSIDE RECORDS SUMMARY | 2025-04-13 18:11 | XMS_ITS | Encounter Summary ---
Author Organization [facility] Address [address] [place] [address] Care Team Providers Care Finish Mender Name Role Phone Endy Oseiie SECURITY PROJECT MANAGER-C Primary Care Provider + Adrian Dennis MD Unavailable Andrew Steward MD Unavailable Rasmhi Simmons MD Unavailable [phone] Fang Crystal SALICYLIC ACID BLENDER Unavailable Angela Mccarthy SALICYLIC ACID BLENDER Unavailable Reason for Visit * Reason Comments Med Refill Encounter Details Date Type Department Care Team (Late st Contact Info) Description 03/14/2024 Refill Maisha Esposito [facility] [address] [address] Fang Crystal CNP [address] [address] Deficiency of other specified B group vitamins Social History Tobacco Use Types Packs/Day Years Used Date Smoking Tobacco: Every Day Cigarettes 1 35 Smokeless Tobacco: Never Alcohol Use Standard Drinks/Week Comments Not Currently 0 (1 standard drink = 0.6 oz pur e alcohol) [facility] Utilities Answer Date Recorded In the past 12 months has e electric, gas, oil, or water [employer] threatened to shut off services in your home? No 02/06/2024 Humiliation, Afraid, Rape, and Kick questionnair e Answer Date Recorded Within the last year, have y ou been afraid of your partner or ex-partner? No 03/12/2024 Within the last year, have y ou been humiliated or emotionally abused in other ways by your partner or ex-partner? No Within the last year, have y ou been kicked, hit, slapped, or otherwise physically hurt by your partner or ex-partner? No 03/12/2024 Within the last year, have y ou been raped or forced to have any kind of sexual activity by your partner or ex-partner? No 03/12/2024 Overall Financial Resource Strain (CARDIA) Answe r Date Recorded How hard is it for you to pa y for the very basics like food, housing, medical care, and heating? Not very hard 02/06/2024 PHQ-2 Answer Date Recorded Patient Health Questionnaire-2 Score 0 03/12/2024 Transportation Answer Date Recorded In the past [...] place to sleep or slept in a fpc (including now)? No 02/06/2024 Hunger Vital Sign [...] encounter Miscellaneous Notes * Telephone Encounter - Tesha Joyce RN - 03/17/2024 3:44 PM EDT Duplicate. Rx sent 03/17/2024 * Telephone Encounter - Nohelia Cunha RN - 03/17/2024 3:42 PM EDT Prescription sent documented in this encounter Plan of Treatment Not on file documented as of this encounter Visit Diagnoses Diagnosis Deficiency of other specified B group vitamins documented in this encounter Additional Health Concerns Infection Onset Date Last Indicated Resolved Time MRSA Comment:Added from external infection. 04/26/2024 COVID-19 Rule-Out Comment:negative 05/27/2024 05/27/2024 05/28/2024 10:09 AM EDT documented as of this encounter Care Teams Finish Mender Relationship Specialty Start Date End Date Shantell Osei FNP-C [address] [place] [address] PCP - General 12/20/22 Adrian Dennis MD [address] [place] [address] Consulting Physician Urology 01/24/23 Andrew Steward MD [address] [facility] [address] [place], [place] [id number] Cardiology 08/22/23 Rashmi Simmons MD [address] [place] [address] Consulting Physician Hematology and Oncology 12/19/23 Fang Crystal CNP [address] [place] [id number] Nurse Practitioner Hematology and Oncology 12/21/23 Angela Mccarthy, SALICYLIC ACID BLENDER [address] [place] [address] Consulting Physician Hematology and Oncology 01/11/24 documented as of this encounter
--- OUTSIDE RECORDS SUMMARY | 2025-04-13 18:11 | XMS_ITS | Clinical Summary ---
Author Organization [facility] Address [address] [place] [address] Phone Care Team Providers Care Director Of Labor And Delivery Name Role Phone Generic Provider, No Assigned Pcp Primary Car e Provider Unavailable Social History Tobacco Use Types Packs/Day Years Used Date Smoking Tobacco: Never Assessed Sex and Gender Information Value Date Recorded Sex Assigned at Not on file Legal Sex Male 11:48 AM EST Gender Identity Not on file Sexual Orientation Not on file Last Filed Vital Signs Vital Sign Reading Time Taken Comments Blood Pressure 160/90 07/13/2021 11:13 AM EDT Pulse 60 07/13/2021 11:13 AM EDT Temperature 36.3 C (97.4 F) 07/13/2021 11:13 AM EDT Respiratory Rate - - Oxygen Saturation 97% 07/13/2021 11:13 AM EDT Inhaled Oxygen Concentration - - Weight 99.8 kg (220 lb) 07/13/2021 11:13 AM EDT Height 180.3 cm (5' 11 ) 07/13/2021 11:13 AM EDT Body Mass Index 30.68 07/13/2021 11:13 AM EDT Plan of Treatment Not on file Care Teams Director Of Labor And Delivery Relationship Specialty Start Date End Date Generic Provider, [place] [address] PCP - General Family Medicine 05/23/23
--- OUTSIDE RECORDS SUMMARY | 2025-04-13 18:11 | XMS_ITS | Encounter Summary ---
Author Organization [facility] Address [address] [facility] [place] [address] Care Team Providers Care Crown Ironer Name Role Phone Shantell Osei NP Unavailable Norm Faustin MD Unavailable Encounter Details Date Type Department Care Team (Late st Contact Info) Description 12/17/2024 Abstract [facility] [address] [place] [address] Unallocated, Noms Provider, [address] [place], [place] [id number] Social History Tobacco Use Types Packs/Day Years Used Date Smoking Tobacco: Every Day Cigarettes Sex and Gender Information Value Date Recorded Sex Assigned at Not on file Legal Sex Male 7:09 PM EDT Gender Identity Not on file Sexual Orientation Not on file documented as of this encounter Plan of Treatment Not on file documented as of this encounter Visit Diagnoses Not on filedocumented in this encounter Care Teams Crown Ironer Relationship Specialty Start Date End Date Norm Faustin MD [address] [place], [place] [id number] PCP - Devoted 10/15/24 Shantell Osei NP [address] [place], [place] [phone] Referring Physician 08/21/24 documented as of this encounter
--- OUTSIDE RECORDS SUMMARY | 2025-04-13 18:11 | XMS_ITS | Encounter Summary ---
Author Organization [facility] Address [address] [facility] [place] [address] Care Team Providers Care Hammer Repairer Name Role Phone Shantell Osei NP Unavailable [phone] Norm Faustin MD Unavailable Encounter Details Date Type Department Care Team (Late st Contact Info) Description 12/22/2024 Abstract [facility] [address] [place] [address] Unallocated, Noms Provider, [address] [place], [place] [id number] Social History Tobacco Use Types Packs/Day Years [...] on filedocumented in this encounter Care Teams Hammer Repairer Relationship Specialty Start Date End Date Norm Faustin MD [address] [place], [place] [id number] PCP - Devoted 10/15/24 Shantell Osei NP [address] [place], [place] [address] Referring Physician 08/21/24 documented as of this encounter
--- OUTSIDE RECORDS SUMMARY | 2025-04-13 18:11 | XMS_ITS | Clinical Summary ---
Author Organization [facility] Address [address] [place] [address] Care Team Providers Care Automobile Spring Repairer Name Role Phone Ace Marr DO Primary Care Provider [phone] Allergies Active Allergy Reactions Criticality Noted Date Comments Sulfa Antibiotics 08/12/2016 Muscle twitch Medications levothyroxine (SYNTHROID) 100 MCG tablet Take 0.5 tablets by mouth 2 times daily 90 tablet 2 09/16/2018 Active carvedilol (COREG) 25 MG tablet Take 1 tablet by mouth 2 times daily Active hydrALAZINE (APRESOLINE) 100 MG tablet Take 1 tablet by mouth 2 times daily Active atorvastatin (LIPITOR) 10 MG tablet Take 1 tablet by mouth daily Active clopidogrel (PLAVIX) 75 MG tablet Take 1 tablet by mouth daily Active lisinopril (PRINIVIL;ZESTR IL) 10 MG tablet Take 1 tablet by mouth in the morning and at bedtime Active gabapentin (NEURONTIN) 300 MG capsule Take 1 capsule by mouth in the morning and at bedtime. Active aspirin 81 MG EC tablet Take 1 tablet by mouth daily Active amLODIPine (NORVASC) 5 MG tablet Take 1 tablet by mouth daily Active Active Problems Problem Noted Date Diagnosed Date NSTEMI (non-ST elevated myocardial infarction) 0 04/27/2024 CKD (chronic kidney disease) 04/26/2024 Acute on chronic diastolic (congestive) heart fa ilure 04/26/2024 History of Cuong thyroiditis 01/08/2015 Depression 05/20/2014 HTN (hypertension) 05/20/2014 GERD (gastroesophageal reflux disease) 4 Resolved Problems Problem Noted Date Diagnosed Date Resolved Date Elevated troponin 04/27/2024 05/27/2024 Immunizations Immunization Administration Dates Next Due Td, unspecified formulation 05/20/2010 Family History Medical History Relation Name Comments Heart Disease Father CHF High Blood Pressure Father Asthma Mother COPD Mother Emphysema Mother Heart Disease Mother [place] Relation Name Status Comments Brother Alive Father (Age 57) Mother Sister 1 Clementine Alive Sister 2 Jo Alive Sister 3 Nickie Alive Sister 4 Monica Alive Sister 5 Jael (Age 36) Suicide Social History Tobacco Use Types Packs/Day Years Used Date Smoking Tobacco: Every Day Cigarettes Smokeless Tobacco: Never Tobacco Cessation:Ready to Q uit: No; Counseling Given: Yes Alcohol Use Standard Drinks/Week Comments No 0 (1 standard drink = 0.6 oz pur e alcohol) [facility] Utilities Answer Date Recorded In the past 12 months has th e electric, gas, oil, or water company threatened to shut off services in your home? No 04/26/2024 Hunger Vital Sign Answer Date Recorded Within the past 12 months, y ou worried that your food would run out before you got the money to buy more. Never true 04/26/20 24 Within the past 12 months, t he food you bought just didn't last and you didn't have money to get more. Never true 04/26/2024 PRAPARE - Transportation Answer Date Re corded In the past 12 months, has l ack of transportation kept you from medical appointments or from getting medications? No 04/14 In the past 12 months, has l ack of transportation kept you from meetings, work, or from getting things needed for daily living? No 04/26/2024 Housing Stability Vital Sign Answer Ramirez e Recorded In the last 12 months, was t here a time when you were not able to pay the mortgage or rent on time? No 04/26/2024 In the last 12 months, how many places have you lived? 5 04/26/2024 In the last 12 months, was t here a time when you did not have a steady place to sleep or slept in a longterm (including now)? No 04/26/2024 Food Insecurity Answer Date Recorded Within the past 12 months, y ou worried that your food would run out before you got the money to buy more. 1 04/26/2024 Within the past 12 months, t he food you bought just didn't last and you didn't have money to get more. 1 04/26/2024 Interpersonal Safety Domain Source: IP Abuse Scr eening Answer Date Recorded Physical abuse Denies 04/26/2024 Verbal abuse Denies 04/26/2024 Emotional abuse Denies 04/26/2024 Financial abuse Denies 04/26/2024 Sexual abuse Denies 04/26/2024 Sex and Gender Information Value Date Recorded Sex Assigned at Not on file Legal Sex Male 2:58 AM EST Gender Identity Not on file Sexual Orientation Not on file Last Filed Vital Signs Vital Sign Reading Time Taken Comments Blood Pressure 159/97 04/27/2024 11:00 AM EDT Pulse 78 04/27/2024 11:00 AM EDT Temperature 36.7 C (98 F) 04/27/2024 8:00 AM EDT Respiratory Rate 16 04/27/2024 11:0 0 AM EDT Oxygen Saturation 98% 04/27/2024 11: 00 AM EDT Inhaled Oxygen Concentration - - Weight 86.5 kg (190 lb 11.2 oz) 04/26/2024 6:30 PM EDT Height 180.3 cm (5' 11 ) 04/26/2024 11: 15 AM EDT Body Mass Index 26.6 04/26/2024 11:15 AM EDT Plan of Treatment Health Maintenance Due Date Last Done Comments Depression Monitoring 1980 Pneumococcal 50+ years Vaccine (1 of 2 - PCV) 1987 Hepatitis B vaccine (1 of 3 - Risk Dialysis 4-dose series) 1988 DTaP/Tdap/Td vaccine (1 - Tdap) 05/21/2010 05/20/2010 Colonoscopy 2013 Colorectal Cancer Screen 2013 FIT/FOBT: Average risk 2013 Fecal-DNA (Cologuard): Average risk 2013 Sigmoidoscopy/CT colonography 2013 Shingles vaccine (1 of 2) 2018 Lipids 10/26/2023 10/26/2022, 03/17 (Postponed) COVID-19 Vaccine ( - season) 2024 Annual Wellness Visit (Medicare Advantage) 10/15/2024 GFR test (Diabetes, CKD 3-4, OR last GFR 15-59) 04/27/2025 04/27/2024, 04/26/2024, 03/12/2024, Additional history exists Flu vaccine (Season Ended) 2025 Diabetes screen Discontinued 10/26/2022 HIV screen Completed 10/26/2022 Hepatitis C screen Completed 12/13/2023, 10/26/2022 Hepatitis A vaccine Aged Out No longe r eligible based on patient's age to complete this topic Hib vaccine Aged Out No longer eligi ble based on patient's age to complete this topic Meningococcal (ACWY) vaccine Aged Out No longer eligible based on patient's age to complete this topic Meningococcal B vaccine Aged Out No l onger eligible based on patient's age to complete this topic Polio vaccine Aged Out No longer elig ible based on patient's age to complete this topic Procedures Procedure Name Priority Date/Time Associated Diagnosis Comments BASIC METABOLIC PANEL Routine 04/27/2024 7:41 AM EDT HIV 1/2 AG/AB COMBO Routine 10/26/2022 1 1:00 AM EST HEPATITIS C ANTIBODY Routine 10/26/2022 11:00 AM EST HEMOGLOBIN A1C Routine 10/26/2022 11:00 AM EST LIPID PANEL Routine 10/26/2022 11:00 AM EST from Last 3 Months or Most Recently Relevant to Health Maintenance Results * (ABNORMAL) Basic Metabolic Panel (04/27/2024 7:41 AM EDT) Sodium 137 136 - 145 mmol/L 04/27/2024 7:41 AM EDT [facility] Potassium 4.7 3.7 - 5.3 mmol/L 04/27/2024 7:41 AM EDT [facility] Chloride 96(L) 98 - 107 mmol/L 04/27/2024 7:41 AM EDT [facility] CO2 25 20 - 31 mmol/L 04/27/2024 7:41 AM EDT [facility] Anion Gap 16 9 - 16 mmol/L 04/27/2024 7:41 AM EDT [facility] Glucose 98 74 - 99 mg/dL 04/27/2024 7:41 AM EDT [facility] BUN 32(H) 6 - 20 mg/dL 04/27/2024 7:41 AM EDT [facility] Creatinine 7.2(HH) 0.70 - 1.20 mg/dL 04/27/2024 7:41 AM EDT [facility] Comment:Previous Alert Value Reported Est, Glom Filt Rate 8(L) >60 mL/min/1. 73m2 04/27/2024 7:41 AM EDT [facility] Comment: These results are not intended for [...] following therapy that affects renal tubular secretion. Calcium 9.4 8.6 - 10.4 mg/dL 04/27/2024 7:41 AM EDT [facility] Blood BLOOD SPECIMEN / Unknown 04/27/2024 7:41 AM EDT 04/27/2024 7:46 AM EDT us An Martins MD CHEMISTRY ORDERABLES Final Resu lt [employer] [facility] [address] [place] [address], [facility] [phone] * HIV 1/2 Ag/Ab COMBO (10/26/2022 11:00 AM EST) HIV Combo 4G Negative Negative [facility] 10/26/2022 11:0 0 AM EST 10/26/2022 11:07 AM EST Narrative [facility] - 10/26/2022 12:31 PM EST [facility] ([facility] [place] [address] us Nicholas Velazquez MD IMMUNOLOGY ORDERABLES Final Resu lt [facility] * Hemoglobin A1C (10/26/2022 11:00 AM EST) Hemoglobin A1C 5.0 4.0 - 6.0 % [facility] Estimated Avg Glucose 96.8 mg/dL [facility] 10/26/2022 11:0 0 AM EST 10/26/2022 11:07 AM EST Narrative [facility] - 10/26/2022 12:56 PM [facility] (BE[facility])[address] [place] [address] Nicholas Velazquez MD CHEMISTRY ORDERABLES Final Resul t Performing Organization Address City/[facility] Co de Phone Number [facility] * (ABNORMAL) Lipid Panel (10/26/2022 11:00 AM EST) Triglycerides 206(H) 40 - 149 mg/dL [facility] Comment: TRIGLYCERIDE REFERENCE RANGE: 20 YEARS AND OLDER CARDIOVASCULAR RISK LESS THAN 150 mg/dL LOW RISK 150 TO 199 mg/dL BORDERLINE RISK 200 mg/dL AND GREATER HIGH RISK Cholesterol, Total 137 120 - 200 mg/dL [facility] LDL Cholesterol 65 0 - 160 mg/dL [facility] HDL 31 23 - 92 mg/dL [facility] Non HDL Chol. (LDL+VLDL) 106 NA [facility] Total VLDL-C 41(H) 0 - 40 mg/dL [facility] Chol/HDL Ratio 4.42 mg/dL [facility] 10/26/2022 11:0 0 AM EST 10/26/2022 11:07 AM EST Narrative [facility] - 10/26/2022 12:01 PM [facility] ([facility])[address] [place] [address] Nicholas Velazquez MD CHEMISTRY ORDERABLES Final Resul t [facility] from Last 3 Months or Most Recently Relevant to Health Maintenance Additional Health Concerns Infection Onset Date Last Indicated MRSA Comment:Nasal 04/202404/26/2024 04/26/2024 Insurance [facility] [place]ICARE [place] Advance Directives * Full Code (Latest Code Status on File) Date Activated Date Inactivated Comments 04/26/2024 11:39 AM 04/27/2024 3:31 PM * Full Code Date Activated Date Inactivated Comments 04/26/2024 11:39 AM 04/26/2024 11:39 AM Care Teams Automobile Spring Repairer Relationship Specialty Start Date End Date Ace Marr DO PCP - General Family Medicine 02/11/14
--- OUTSIDE RECORDS SUMMARY | 2025-04-13 18:11 | XMS_ITS ---
Author Organization [facility] Address [address] [place] [address] Care Team Providers Care Ferryboat Pilot Name Role Phone Shantell Osei HEARING HEALTHCARE PRACTITIONER-C Primary Care Provider + Adrian Dennis MD Unavailable Andrew Steward MD Unavailable Rashmi Simmons MD Unavailable [phone] Crystal BRICKLAYER SUPERVISOR Unavailable Angela Mccarthy BRICKLAYER SUPERVISOR Unavailable Transplant Episode Kidney Candidate [facility] ([place], [place]) - [facility] Evaluation began on 10/17/2022 Marked as Deferred on 06/24/2024 Reason: Substance Abuse Kidney CoordinatorJuanita Dela Cruz Phone: N/A Fax: N/A Email: N/A Scores Score Value Updated Exceptions/Reas ons CPRA Not available EPTS (Calc) 38 04/13/2025 Care Team Name Role Phone Fax Email Juanita Dela Cruz Kidney Coordinator N/A N/A N/A Junior Mora MD Referring Physician [phone] N/A Nicholas Velazquez MD Upper Cutter Machine [phone] N/A Juanita Dela Cruz Txp Fisheries Specialist N/A N/A N/A Adrian Dennis MD Surgeon [phone] N/A Events Pre-Transplant Referred: 05/19/2022 Evaluation began: 10/17/2022 Committee: 11/20/2022 Dialysis History Dialysis History Start End Type Comments Center 02/11/20[facility] 03/12/2021 Hemo [facility] Dialysis Center Information Center Phone Fax Address [facility] [phone] [address] [facility] [address] [facility] [phone] [place] [address], [facility] [id number]
--- OUTSIDE RECORDS SUMMARY | 2025-04-13 18:11 | XMS_ITS | Clinical Summary ---
Author Organization [facility] Address [id number] [address] [place] [address] Care Team Providers Care Rn Liaison Name Role Phone Shantell Osei RESIDENTIAL MENTAL HEALTH WORKER-GRAVITY MANAGER Primary Care Provide r Medications aspirin 81 mg Take 81 mg by mouth daily. Active clopidogreL (PLAVIX) 75 mg tablet Take 75 mg by mouth daily. Active atorvastatin (LIPITOR) 40 mg tablet Take 40 mg by mouth daily. Active Active Problems Problem Noted Date Diagnosed Date Cerebrovascular accident (CV A) due to stenosis of left carotid artery 08/25/2021 Left carotid artery stenosis 08/25/2021 Social History Tobacco Use Types Packs/Day Years Used Date Smoking Tobacco: Never Assessed Sex and Gender Information Value Date Recorded Sex Assigned at Not on file Legal Sex Male 10:01 PM EDT Gender Identity Not on file Sexual Orientation Not on file Plan of Treatment Health Maintenance Due Date Last Done Comments Depression Screening 1980 Tobacco Screening 1980 Adult BMI Screening 1986 DTaP,Tdap and Td Vaccines (1 - Tdap) 1987 Zoster (Shingles) Vaccine (1 of 2) 2018 Influenza Vaccine 06/15/2025 Medical Devices Not on file Insurance [address] [place] [address] [employer] Care Teams Rn Liaison Relationship Specialty Start Date End Date Shantell Osei APRN-FNP [facility] [place] [address] [place] [address] PCP - General Family Medicine 06/15/21
[2025-04-13 18:19] VITALS: BP 172/96; PULSE 110; TEMP 37.1; O2SAT 97; BMI 27.9
--- NOTE | 2025-04-13 18:41 | ED.GENADUL1 ---
HPI HPI - General Adult General Chief complaint: Recheck/Abnormal Lab/Rx Stated complaint: INCISION FROM SURGERY BLEEDING Time Seen by Provider: 04/13/25 18:27 Source: patient Mode of arrival: walk-in Limitations: no limitations History of Present Illness HPI narrative: Patient is a 54-year-old male with a history of dialysis who presents to the ER for bleeding from an incision in the left forearm. He states his previous dialysis fistula was clogged so he had a procedure at [facility] today with vascular surgery and is to have a second procedure done tomorrow. He states he noticed bleeding in the dressing that was placed today. He states he has a drain that is in place until tomorrow. He does take Plavix daily. He states the area is sore and he was supposed to get a prescription for pain medication but he did not and is wondering if he can also have pain medicine while he is here. Related Data Home Medications ?Medication ?Instructions ?Recorded ?Confirmed carvedilol 25 mg tablet 25 mg PO Q12H 05/21/23 04/13/25 gabapentin 300 mg capsule 300 mg PO Q12H 05/21/23 04/13/25 hydralazine 100 mg tablet 100 mg PO Q12H 05/21/23 04/13/25 minoxidil 10 mg tablet 10 mg PO BID 05/21/23 04/13/25 clopidogrel 75 mg tablet 75 mg PO DAILY 02/08/24 04/13/25 isosorbide mononitrate 30 mg 30 mg PO DAILY 02/08/24 04/13/25 tablet,extended release 24 hr lisinopril 10 mg tablet 10 mg PO DAILY 02/08/24 04/13/25 atorvastatin 10 mg tablet mg 04/13/25 carvedilol 12.5 mg tablet mg 04/13/25 carvedilol 6.25 mg tablet mg 04/13/25 levothyroxine 100 mcg tablet mcg 04/13/25 lisinopril 20 mg tablet mg 04/13/25 Previous Rx's ?Medication ?Instructions ?Recorded hydrocodone 5 mg-acetaminophen 325 1 tab PO Q4H PRN pain #10 tabs 02/08/24 mg tablet hydrocodone 5 mg-acetaminophen 325 1 tab PO Q6H PRN pain 5 days #20 02/04/25 mg tablet tabs hydrocodone 5 mg-acetaminophen 325 1 tab PO Q6H PRN pain 3 days #12 03/21/25 mg tablet tabs Allergies Allergy/AdvReac Type Severity Reaction Status Date / Time CT contrast Allergy unknown Uncoded 04/13/25 18:23 Opioid HPI Opioid Management Most Recent Opioid Data: Last Pain Scale 10 03/21/25, 01:48 Review of Systems ROS Constitutional Denies: fever or chills Ears, nose, mouth, and throat Denies: throat pain or nasal congestion Cardiovascular Denies: chest pain Respiratory Denies: shortness of breath or cough Gastrointestinal Denies: nausea or vomiting Integumentary/Breast Denies: rash Hematologic/Lymphatic Reports: easy bruising and easy bleeding PFSH PFSH Social History Smoking status: Heavy tobacco smoker Little interest or pleasure in doing things: not at all Feeling down, depressed, or hopeless: not at all Exam Narrative Exam Narrative: Gen.: Awake, alert, in no distress Head: Normocephalic, atraumatic ENT: Moist mucous membranes Respiratory: No respiratory distress Extremities: Sutures in place around a small plastic drain/tube that extends out of the left forearm on the volar aspect. No noted active bleeding, minimal oozing from the edges of the surgical incision around the drain. No dehiscence of the sutures. No pulsatile bleeding or pulsatile mass palpated in the left forearm. Psych: Normal mood and affect Neuro: No focal neuro deficit Skin: Warm, dry, intact Constitutional Vital Signs, click to edit/add: Last Vital Signs Temp 98.7 F 04/13/25 18:19 Pulse 110 H 04/13/25 18:19 Resp 18 04/13/25 18:19 BP 172/96 H 04/13/25 18:19 Pulse Ox 97 04/13/25 18:19 O2 Del Method Room Air 04/13/25 18:19 Course Vital Signs Vital signs: Vital Signs Temperature 98.7 F 04/13/25 18:19 Pulse Rate 110 H 04/13/25 18:19 Respiratory Rate 18 04/13/25 18:19 Blood Pressure 172/96 H 04/13/25 18:19 Pulse Oximetry 97 04/13/25 18:19 Oxygen Delivery Method Room Air 04/13/25 18:19 Temperature 98.7 F 04/13/25 18:19 Pulse Rate 110 H 04/13/25 18:19 Respiratory Rate 18 04/13/25 18:19 Blood Pressure 172/96 H 04/13/25 18:19 Pulse Oximetry 97 04/13/25 18:19 Oxygen Delivery Method Room Air 04/13/25 18:19 Medical Decision Making MDM Narrative Medical decision making narrative: There is no active pulsatile bleeding or steady bleeding from the incision, suspect incisional oozing from procedure earlier today as the patient is on Plavix. He was given education and reassurance. Dressing replaced with [place] and the patient is encouraged to keep pressure to the area if he notices bleeding and to return to the ER if the bleeding is uncontrolled. He was given 2 Vicodin for this evening until his procedure tomorrow. Return to the ER if symptoms change or worsen, follow-up tomorrow at [facility] for procedure as scheduled. SUPERVISED APC VISIT, PHYSICIAN ATTESTATION: Based on the medical record the care appears appropriate. ? Medical Records Medical records reviewed: Yes I reviewed the patient's medical records Discharge Plan Discharge Chief Complaint: Recheck/Abnormal Lab/Rx Clinical Impression: Postoperative bleeding from incision, Arm pain, left Patient Disposition: Home, Self-Care Time of Disposition Decision: 18:38 Condition: Good Prescriptions / Home Meds: No Action clopidogrel 75 mg tablet 75 mg PO DAILY isosorbide mononitrate 30 mg tablet extended release 24 hr 30 mg PO DAILY lisinopril 10 mg tablet 10 mg PO DAILY hydrocodone-acetaminophen 5-325 mg tablet 1 tab PO Q4H PRN (Reason: pain) Qty: 10 0RF hydrocodone-acetaminophen 5-325 mg tablet 1 tab PO Q6H PRN (Reason: pain) 5 Days Qty: 20 0RF carvedilol 6.25 mg tablet carvedilol 12.5 mg tablet atorvastatin 10 mg tablet lisinopril 20 mg tablet levothyroxine 100 mcg tablet carvedilol 25 mg tablet 25 mg PO Q12H gabapentin 300 mg capsule 300 mg PO Q12H hydralazine 100 mg tablet 100 mg PO Q12H minoxidil 10 mg tablet 10 mg PO BID hydrocodone-acetaminophen 5-325 mg tablet 1 tab PO Q6H PRN (Reason: pain) 3 Days Qty: 12 0RF Print Language: French Instructions: Arm Pain (ED) Additional Instructions: A small amount of bleeding is expected after your procedure, if you notice bleeding keep pressure on the area. If bleeding is uncontrolled please return to the ED. Otherwise follow up for your procedure at [facility] tomorrow Referrals: HERI CUELLAR [Primary Care Provider, Unknown] - 1 week
[2025-04-13] MEDS: HYDROCODONE/ACET 5-325 MG TABLET 2 TAB PO (18:59)
== END 2025-04-13 19:12 | disposition home or self-care (01) ==
PROVIDERS: Emergency Provider Emergency Medicine; PCP Nurse Practitioner Family
DX: L76.22 Postprocedural hemorrhage of skin and subcutaneous tissue following other procedure (principal); M79.602 Pain in left arm; Z99.2 Dependence on renal dialysis; Z79.02 Long term (current) use of antithrombotics/antiplatelets; F17.200 Nicotine dependence, unspecified, uncomplicated
CPT/HCPCS: 99283

== ENCOUNTER 2025-05-19 21:38 | Emergency (ER) | payer MEDICARE, SELFPAY ==
[2025-05-19] VITALS (10 sets, daily range): BP systolic 168–182; BP diastolic 113–120; PULSE 91–120; RESP 16; O2SAT 99–100; BMI 33.0
--- NOTE | 2025-05-19 21:54 | XR_ITS ---
The [address] [address] Patient Name: LEANDER MASSEY MRN: [id number] date: 1970 Sex: M Assigned Patient Location: ED.MAIN Current Patient Location: ED.MAIN Accession/Order Number: [id number] Exam Date: 05/19/2025 22:34 Report Date: 05/19/2025 22:35 At the request of: ANNETTE RODGERS MD Procedure: XR chest 1V Single view chest. Indication shortness of breath COMPARISON: 02/24/2025 FINDINGS: The chin obscures lung apices. Right-sided hemodialysis catheter tip. A large cardiomediastinal silhouette with perihilar vasculature and edema. No large effusion. No definite airspace disease. No pneumothorax. XR/XR chest 1V IMPRESSION: Findings of pulmonary vascular congestion and edema. Impression dictated by: Juan Banda M.D. 05/19/2025 10:35 PM Dictation [facility] Electronically authenticated by: [id number] Y Date: 05/19/2025 22:35
--- NOTE | 2025-05-19 21:54 | ECG_ITS ---
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 Measurements Intervals [place] Rate: 100 P: 73 IL: 186 QRS: 65 QRSD: 84 T: 95 QT: 362 QTc: 419 Interpretive Statements 1120 Sinus tachycardia 3114 Cannot rule out anterior myocardial infarction, age undetermined [address] depression 9150 abnormal ECG Compared to ECG 02/24/2025 04:33:06 Myocardial infarct finding now present ST (T wave) deviation still present Electronically Signed On 05-20-2025 6:58:34 EDT by KIRK MARINELLI M.D.
--- NOTE | 2025-05-19 21:59 | ED_ITS ---
HPI - SOB/Dyspnea General Chief Complaint: Shortness of Breath/Dyspnea Stated Complaint: KIDNEY FAILURE Time Seen by Provider: 05/19/25 21:54 History of Present Illness HPI Narrative: dialysis patient. last dialysis 4 days ago. Suppose to have dialysis today but did not go to his appointment. Presents to the ER in respiratory failure. Brought back to room and unresponsive. Breathing supported with bag valve mask. Pulse present. Patient became responsive after about 2-3 minutes of bagging and started moving his legs Related Data Home Medications ?Medication ?Instructions ?Recorded ?Confirmed carvedilol 25 mg tablet 25 mg PO Q12H 05/21/2304/13 gabapentin 300 mg capsule 300 mg PO Q12H 05/21/2303/17 hydralazine 100 mg tablet 100 mg PO Q12H 05/21/2303/17 minoxidil 10 mg tablet 10 mg PO BID 05/21/23 clopidogrel 75 mg tablet 75 mg PO DAILY 02/08/2403/17 isosorbide mononitrate 30 mg 30 mg PO DAILY 02/08/24 0 04/13/25 tablet,extended release 24 hr lisinopril 10 mg tablet 10 mg PO DAILY 02/08/2403/17 atorvastatin 10 mg tablet mg 04/13/25 carvedilol 12.5 mg tablet mg 04/13/25 carvedilol 6.25 mg tablet mg 04/13/25 levothyroxine 100 mcg tablet mcg 04/13/25 lisinopril 20 mg tablet mg 04/13/25 Previous Rx's ?Medication ?Instructions ?Recorded hydrocodone 5 mg-acetaminophen 325 1 tab PO Q4H PRN pa in #10 tabs 02/08/24 mg tablet hydrocodone 5 mg-acetaminophen 325 1 tab PO Q6H PRN pa in 5 days #20 02/04/25 mg tablet tabs hydrocodone 5 mg-acetaminophen 325 1 tab PO Q6H PRN pa in 3 days #12 03/21/25 mg tablet tabs Allergies Allergy/AdvReac Type Severity Reaction Status Date / Time CT contrast Allergy unknown Uncoded 05/19/25 22:01 Review of Systems ROS Status of ROS unobtainable due to mental status PFSH PFSH Social History Smoking status: Heavy tobacco smoker Little interest or pleasure in doing things: not at all Feeling down, depressed, or hopeless: not at all Exam Constitutional Vital Signs, click to edit/add: Last Vital Signs Pulse 90 05/20/25 00:00 Resp 17 05/20/25 00:00 BP 195/144 H 05/20/25 00:00 Pulse Ox 100 05/19/25 23:30 O2 Del Method BIPAP 05/19/25 22:10 FiO2 50 05/19/25 22:10 Exam limitations: other limitations (unresponsive) [facility] Common normals: normocephalic and head/scalp atraumatic Eye Common normals: conjunctivae normal Respiratory Other: minimal spontaneouos respirations Cardio Rate: tachycardic GI Common normals: Normal to inspection, nondistended, normoactive bowel sounds present, soft to palpation and non-tender Extremity Common normals: normal to inspection Neuro Sensorium/orientation: lethargic and somnolent Course Vital Signs Vital signs: Vital Signs Pulse Rate 120 H 05/19/25 21:56 Respiratory Rate 1 L 05/19/25 21:56 Pulse Rate 90 05/20/25 00:00 Respiratory Rate 17 05/20/25 00:00 Blood Pressure 195/144 H 05/20/25 00:00 Pulse Oximetry 100 05/19/25 23:30 Oxygen Delivery Method BIPAP 05/19/25 22:10 Fraction of Inspired Oxygen 50 05/19/25 22:10 MDM - SOB/Dyspnea MDM Narrative Medical decision making narrative: patient is hemodialysis patient . missed his dialysis today. Presented to ER in respiratory failure. Did require support of respiration initially with bag valve mask. He became responsive and bipap was placed. He has remained awake and alert with the bipap and is able to communciate normally. cxray with evidence of CHF. Troponin is neg. Discussed with Hospitalist Dr Herrera and Instructional Assistant at [facility] and patient accepted in transfer Lab Data Labs: Lab Results 05/19/25 Range/Units 21:45 WBC 15.8 H (4.0-11.0) 10^3/uL RBC 3.64 L (4.70-6.10) 10^6/uL Hgb 11.0 L (14.0-18.0) g/dL Hct 35.4 L (42.0-54.0) % MCV 97.3 H (80.0-94.0) fL MCH 30.2 (25.9-34.0) pg MCHC 31.1 (29.9-35.2) g/dL RDW 14.2 (11.0-15.0) % Plt Count 525 H (150-450) 10^3/uL MPV 9.7 (9.5-13.5) fL Seg Neuts % (Manual) 73.0 (43.0-75.0) Lymphocytes % (Manual) 20.0 L (20.5-60.0) % Monocytes % (Manual) 6.0 (1.7-12.0) % Eosinophils % (Manual) 1.0 (0.9-7.0) % Basophils % (Manual) 0.0 L (0.2-2.0) % Neutrophils # (Manual) 11.53 H (1.4-6.5) 10^3/uL Lymphocytes # (Manual) 3.16 (1.20-3.80) 10^3/uL Monocytes # (Manual) 0.94 H (0.30-0.80) 10^3/uL Eosinophils # (Manual) 0.15 (0.00-0.70) 10^3/uL Basophils # (Manual) 0.00 (0.00-0.10) 10^3/uL Sodium 140 (136-145) mmol/L Potassium 5.9 H (3.5-5.1) mmol/L Chloride 99 (98-107) mmol/L Carbon Dioxide 23.7 (21.0-32.0) mmol/L Anion Gap 23.2 BUN 63.0 H (7.0-18.0) mg/dL Creatinine 14.74 H* (0.70-1.30) mg/dL Est GFR ( Amer) 4 L (>=60 mL/min/1.73m^2) Est GFR (Non-Af Amer) 3 L (>=60 mL/min/1.73m^2) BUN/Creatinine Ratio 4.3 Glucose 149 H (74-106) mg/dL Calcium 9.8 (8.5-10.1) mg/dL Troponin I High Sens 25.2 (4.0-76.1) pg/mL Critical Care Time Critical Care Time Total Critical Care Time: 60 Discharge Plan Discharge Chief Complaint: Shortness of Breath/Dyspnea Clinical Impression: Respiratory failure with hypoxia, CHF (congestive heart failure), Renal failure , unspecified Patient Disposition: [facility]
[2025-05-19 22:04] LABS: Hematocrit 35.4 % (42.0-54.0); Hemoglobin 11.0 g/dL (14.0-18.0); Mean Corpuscular HGB Conc 31.1 g/dL (29.9-35.2); Mean Corpuscular Hemoglobin 30.2 pg (25.9-34.0); Mean Corpuscular Volume 97.3 fL (80.0-94.0); Platelet Count 525 10^3/uL (150-450); Red Blood Count 3.64 10^6/uL (4.70-6.10); White Blood Count 15.8 10^3/uL (4.0-11.0)
[2025-05-19] MEDS: IPRATROPIUM/ALBUTEROL SULFATE 3 ML AMPUL.NEB IH (22:10)
[2025-05-19 22:17] LABS: Anion Gap 23.2; Blood Urea Nitrogen 63.0 mg/dL (7.0-18.0); Calcium 9.8 mg/dL (8.5-10.1); Carbon Dioxide 23.7 mmol/L (21.0-32.0); Chloride 99 mmol/L (98-107); Estimated GFR (African America 4 (>=60 mL/min/1.73m^2); Estimated GFR (Non-African Ame 3 (>=60 mL/min/1.73m^2); Glucose 149 mg/dL (74-106); Potassium 5.9 mmol/L (3.5-5.1); Sodium 140 mmol/L (136-145)
--- NOTE | 2025-05-19 22:25 | PC.NURSE ---
RT in to get ABGs. Aerosol treatment received. Pt is sleepy but oriented.
--- NOTE | 2025-05-19 22:26 | PC.NURSE ---
When pt first arrived. It was noted that he was breathing 1-2 per minute. Agonal respirations. Hands off patches immediately applied and he was noted to have a tachy arrhythmia in the 120's with a weak central pulse. Respirations assisted with BVM with 100% O2 until Bi PAP applied. Shortly thereafter, he became more alert and was breathing per self with the biPAP.
[2025-05-19 22:34] LABS: Basophils Abs Manual 0.00 10^3/uL (0.00-0.10); Basophils Percent Manual 0.0 % (0.2-2.0); Eosinophils Absolute Manual 0.15 10^3/uL (0.00-0.70); Eosinophils Percent Manual 1.0 % (0.9-7.0); Lymphocytes Absolute Manual 3.16 10^3/uL (1.20-3.80); Lymphocytes Percent Manual 20.0 % (20.5-60.0); Monocytes Absolute Manual 0.94 10^3/uL (0.30-0.80); Monocytes Percent Manual 6.0 % (1.7-12.0); Segmented Neut Absolute Manual 11.53 10^3/uL (1.4-6.5); Segmented Neutrophils % Manual 73.0 (43.0-75.0)
[2025-05-20] VITALS (15 sets, daily range): BP systolic 145–203; BP diastolic 89–144; PULSE 80–94; TEMP 36.7; O2SAT 98–100
--- NOTE | 2025-05-20 00:01 | PC.NURSE ---
Bi PAP 18/6, FIO2 30, and rate 20.
== END 2025-05-20 02:12 | disposition short-term general hospital (02) ==
PROVIDERS: Emergency Provider Internal Medicine; PCP Nurse Practitioner Family
DX: J96.91 Respiratory failure, unspecified with hypoxia (principal); N19 Unspecified kidney failure; I50.9 Heart failure, unspecified; Z99.2 Dependence on renal dialysis; F17.200 Nicotine dependence, unspecified, uncomplicated
CPT/HCPCS: 36415; 71045; 80048; 82805; 84484; 85007; 85027; 93005; 94640; 94660; 99291; 99292

== ENCOUNTER 2025-07-25 18:30 | Emergency (ER) | payer OTHER, SELFPAY ==
[2025-07-25] VITALS (11 sets, daily range): BP systolic 135–149; BP diastolic 77–85; PULSE 103–111; TEMP 37.9–38.1; O2SAT 99; BMI 25.8
--- OUTSIDE RECORDS SUMMARY | 2025-07-25 18:56 | XMS_ITS | CCD ---
Author Organization [facility] ion [facility] Care Team Providers Care Fire Watcher Name Role Phone Ace Marr Unavailable Unavailable Ace Marr Unavailable Unavailable Vivian Motta Attending Provider [phone] Shantell Osei Primary Care Provider Vivian Motta Attending Provider [phone] Shantell Osei Primary Care Provider [phone] Ace Marr Unavailable Unavailable Unavailable Abby, Junior Unavailable Shantell Osei Unavailable Patrice Levine Unavailable [phone] Ramos Govea Unavailable NAZZAL, MUNIER Admitting Unavailable NAZZAL, MUNIER Attending Unavailable UNKNOWN, PHYSICIAN Primary Care Unavailable UNKNOWN, PHYSICIAN Referring Unavailable NAZZAL, MUNIER Surgeon Unavailable [place] Procedure Practitioner Unavailab Monica Grimes Unavailable KISHOR Osei Primary Care Provider MD Patrice Levine Attending Provider [phone] Gerber Short Unavailable ABBY, JUNIOR Primary Care Unavailable PAY, DR MENDOZA Admitting Unavailable PAY, DR MENDOZA Attending Unavailable JANELLE BOBBY Consulting Unavailable ABBY, JUNIOR Admitting Unavailable ABBY, JUNIOR Attending Unavailable SHANTELL OSEI Primary Care Unavailable ABBY, JUNIOR Consulting Unavailable ABBY, JUNIOR Admitting Unavailable ABBY, JUNIOR Attending Unavailable SEA, SHANTELL Primary Care Unavailable ABBY, JUNIOR Consulting Unavailable SEA, SHANTELL Primary Care Unavailable DALLIN, NAILA Admitting Unavailable DALLIN, NAILA Attending Unavailable JANELLE BOBBY Consulting Unavailable Ludmila Joseph Consulting Unavailable SEA, SHANTELL Primary Care Unavailable MARKER, DR RUVALCABA Admitting Unavailable MARKER, DR RUVALCABA Attending Unavailable ASIYAJANELLE SWARTZ Consulting Unavailable MARKER, DR RUVALCABA Consulting Unavailable SANDRA SINGH Consulting Unavailable ABBY, JUNIOR Admitting Unavailable ABBY, JUNIOR Attending Unavailable SEA, SHANTELL Primary Care Unavailable ABBY, JUNIOR Admitting Unavailable ABBY, JUNIOR Attending Unavailable ALGHOTHANI, MOHAMAD Referring Unavailable ABBY, JUNIOR Primary Care Unavailable ABBY, JUNIOR Consulting Unavailable SEA, SHANTELL Primary Care Unavailable MIKAELA, DR SRINIVASAN Baker Admitting Unavailable MIKAELA, DR SRINIVASAN Baker Attending Unavailable MIKAELA, DR SRINIVASAN Baker Consulting Unavailable SEA, SHANTELL Admitting Unavailable SEA, SHANTELL Attending Unavailable SEA, SHANTELL Primary Care Unavailable SEA, SHANTELL Consulting Unavailable ABBY, JUNIOR Admitting Unavailable ABBY, JUNIOR Attending Unavailable SEA, SHANTELL Primary Care Unavailable ABBY, JUNIOR Consulting Unavailable ABBY, JUNIOR Admitting Unavailable ABBY, JUNIOR Attending Unavailable SEA, SHANTELL Referring Unavailable SEA, SHANTELL Primary Care Unavailable ABBY, JUNIOR Consulting Unavailable ALGHOTHANI, MOHAMAD Admitting Unavailable ALGHOTHANI, MOHAMAD Attending Unavailable ABBY, JUNIOR Primary Care Unavailable ADRIENNE MOLINA Consulting Unavailable ALGHOTHANI, MOHAMAD Consulting Unavailable BAKHOUS, AZIZ Admitting Unavailable BAKHOUS, AZIZ Attending Unavailable SEA, SHANTELL Primary Care Unavailable BAKHOUS, AZIZ Consulting Unavailable SELENE, DR WARNER Admitting Unavailable SELENE, DR WARNER Attending Unavailable SEA, SHANTELL Primary Care Unavailable SELENE, DR WARNER Consulting Unavailable ABBY, JUNIOR Admitting Unavailable ABBY, JUNIOR Attending Unavailable SEA, SHANTELL Primary Care Unavailable ABBY, JUNIOR Consulting Unavailable SEA, SHANTELL Primary Care Unavailable ANNETTE RODGERS Admitting Unavailable ANNETTE RODGERS Attending Unavailable JANELLE BOBBY Consulting Unavailable SEA, SHANTELL Primary Care Unavailable MIKAELA, DR SRINIVASAN Baker Admitting Unavailable MIKAELA, DR SRINIVASAN Baker Attending Unavailable MIKAELA, DR SRINIVASAN Baker Consulting Unavailable SUBHASH LEDBETTER Consulting Unavailable SEA, SHANTELL Primary Care Unavailable DALLIN, NAILA Admitting Unavailable DALLIN, NAILA Attending Unavailable ZIEBER, DR LUDMILA Baker Consulting Unavailable DALLIN, NAILA Consulting Unavailable ABREU, DYLLAN Consulting Unavailable SEA, SHANTELL Primary Care Unavailable MARKER, DR RUVALCABA Admitting Unavailable MARKER, DR RUVALCABA Attending Unavailable ASIYA, JANELLE HERCULES Consulting Unavailable WAYNEIPPVIVIAN WHEELER Consulting Unavailable ABBY, JUNIOR Admitting Unavailable ABBY, JUNIOR Attending Unavailable LANIER, DR LENNY Fraga Primary Care Unavailable ABBY, JUNIOR Consulting Unavailable SEA, SHANTELL Primary Care Unavailable HAY, DR ROBISON Admitting Unavailable HAY, DR ROBISON Attending Unavailable HAY, DR ROBISON Consulting Unavailable SELENE, DR WARNER Admitting Unavailable SELENE, DR WARNER Attending Unavailable SEA, SHANTELL Primary Care Unavailable SELENE, DR WARNER Consulting Unavailable ABBY, JUNIOR Admitting Unavailable ABBY, JUNIOR Attending Unavailable SEA, SHANTELL Primary Care Unavailable ABBY, JUNIOR Consulting Unavailable ALAINA, DR PRADO Attending Unavailable SEA, SHANTELL Primary Care Unavailable ALAINA, DR PRADO Consulting Unavailable ALAINA, DR PRADO Admitting Unavailable Sea, COUNSELOR AT LAW-C Shantell Primary Care Provider MD Patrice Levine Attending Provider MD Gerber Short Attending Provider [phone] Raissa Oh Unavailable Asaad, Imad Unavailable Donya Mccann Unavailable KATHE OseiP-C Shantell Primary Care Provider U MD Percy Perera Admit Provider MD Irwin Theodore Attending Provider MD Toby Venegas Other Provider MD Patrice Levine Attending Provider [phone] MD Patrice Levine Attending Provider JOLENE Osei-C Shantell Primary Care Provider U MD Junior Chiu Attending Provider MD Toby Venegas Attending Provider Unavailable Primary Care Provider UnavailLive Marie Unavailable JOLENE Osei-C Shantell Primary Care Provider U MD Junior Chiu Attending Provider MD Toby Venegas Attending Provider NO FAMILY, PHYSICIAN Primary Care Provider Unava ilable MD Toby Venegas Other Provider KARYNA Kowalski-Radha Vieira Other Provider Unavailable MD Junior Mayo Other Provider MD Baudilio Hoyos Other Provider MD Ethan Malavehash Other Provider MD Ramos Govea Other Provider MD [facility] Herrera [facility] MD Jersey Sharp Attending Provider JOLENE Osei-BC Shantell Primary Care Provider MD Junior Mayo Attending Provider Shantell Osei NP Unavailable Sea COUNSELOR AT [employer], Shantell Primary Care Provider Toby Venegas MD Attending Provider Ace Marr DO Primary Care Provider Ramos Govea MD Attending Provider Junior Mayo MD Attending Provider [phone] TRACIE SANCHES Attending Unavailable ALLISON SERRANO Attending Unavailable Ramos Govea MD Attending Provider Junior Mayo MD Attending Provider NO FAMILY, PHYSICIAN Primary Care Provider Unava ilable Sea COUNSELOR AT [employer], Shantell Primary Care Provider Toby Venegas MD Attending Provider Gerber Short MD Attending Provider Roxie DEWITT, Norm Robertson Unavailable Arben DEWITT, Irwin Admit Provider Irwin Theodore MD Attending Provider Alaina DEWITT, Toby Other Provider Meghana CLINICAL OPERATIONS CONSULTANT-C, Isha Other Provider Unavailable Abby DEWITT, Junior Other Provider Xuan DEWITT, Ramos Other Provider Xin Burdick APRN Other Provider José Miguel DEWITT, Pablo Fraga Other Provider Silva DEWITT, Sajan Danielson Other Provider Simon DEWITT, Gomez Hwang Other Provider Ray DOLouis Other Provider [facility] DO Other Provider [phone] Zane DEWITT, Teri Other Provider Cruz DEWITT, Jassi Fraga Other Provider Aquiles DEWITT, Fatuma Other Provider Alfonzo DEWITT, Vanda Johansen Other Provider [phone] JOLENE OSEI Primary Care Andrew Partida Attending Unavailable JOLENE OSEI Primary Care Andrew Partida Attending Unavailable Sea FERNÁNDEZ-Shantell DSOUZA Primary Care Provider Toby Venegas MD Attending Provider Gerber Short MD Other Provider Arben DEWITT, Irwin Other Provider Junior Mayo MD Attending Provider Pablo Valdez MD Attending Provider [phone] Patrice Levine MD Attending Provider Patrice Levine MD Other Provider [phone] [facility], [facility] Primary Care Provider Mikaela DEWITT, Adrian Reid Emergency Provider NON STAFF Primary Care Provider Unavailsaurabh e Sea [facility], Shantell Primary Care Provider Gerber Short MD Attending Provider Alaina DEWITT, Toby Attending Provider [phone] Gerber Short MD Other Provider Vivian Kay Primary Care Provider Sharon DEWITT, Percy Damian Admit Provider Emelia DEWITT, Tk Robertson Other Provider [phone] [facility], [facility] Primary Care Provider Junior Mayo MD Attending Provider Gerber Short MD Attending Provider Toby Venegas MD Other Provider Meghana TRONCOSO-C, Isha Other Provider Unavailable Junior Mayo MD Other Provider Ramos Govea MD Other Provider Romain Menon MD Attending Provider NON STAFF Primary Care Provider Dilshad fraga Sea [facility], Shantell Primary Care Provider Toby Venegas MD Attending Provider Junior Mayo MD Attending Provider Gerber Short MD Attending Provider Juanita Rosenberg APRN Primary Care Provider Juanita Rosenberg APRN Attending Provider [phone] KIRK MARINELLI Attending Unavailable ALGHOTHANI, MOHAMAD Referring Unavailable ALGHOTHANI, MOHAMAD Referring Unavailable VIRASHMI LAWLER Attending Unavailable JONH DE SOUZA Attending Unavailable ALGHOTHANI, MOHAMAD Attending Unavailable TOFLINSKI, CADEN Referring Unavailable TOFLINSKI, CADEN Referring Unavailable SAFI, RICHI Admitting Unavailable SAFI, RICHI Attending Unavailable ALGHOTHANI, MOHAMAD Admitting Unavailable ALGHOTHANI, MOHAMAD Attending Unavailable ALGHOTHANI, MOHAMAD Attending Unavailable Abby Junior DEWITT Attending Provider Sea [facility] Primary Care Provider Patrice Levine MD Attending Provider [phone] Patrice Levine MD Other Provider Juanita Rosenberg APRN Primary Care Provider Abby, Junior Admitting Unavailable Abby, Junior Attending Unavailable Shantell Osei Primary Care Unavailable Elgaby, Essam Admitting Unavailable Toby Venegas Attending Unavailable Shantell Osei Primary Care Unavailable Gerber Short Attending Unavailable Gerber Short Admitting Unavailable Shantell Osei Primary Care Unavailable Abby, Junior Admitting Unavailable AbbyJunior Attending Unavailable Abby, Junior Admitting Unavailable AbbyJunior Attending Unavailable Patrice Levine Admitting UnavailJuanita Wall Primary Care Unavailable Patrice Levine Attending Unavailabl e Patrice Levine Admitting Unavailabl e [facility] Services Primary Care Unavaila ble Patrice Levine Attending Unavailabl e Patrice Levine Admitting Unavailabl e Julianna, Patrice Mcgee Attending Unavailabl e [facility] Services Primary Care Unavaila ble Shantell Osei Primary Care Unavailable Elashi, Essam Attending Unavailable Elashi, Essam Admitting Unavailable Octavio Goveaiz Attending Unavailable Octavio Goveaiz Admitting Unavailable Romain Menon Attending Unavailable Romain Menon Admitting Unavailable NON STAFF Primary Care Unavailable Patrice Levine Attending Unavailabl Vivian Leary Primary Care Unavailable Patrice Levine Admitting Unavailabl flakito Serrano, Lavon Attending Unavailable [facility], [facility] Primary Care UnavailAdrian Hyatt Admitting Unavailable Shantell Osei Primary Care Unavailable Elashi, Essam Admitting Unavailable Elashi, Essam Attending Unavailable Abby, Junior Attending Unavailable Abby, Junior Admitting Unavailable NO FAMILY, PHYSICIAN Primary Care Unavailable Elashi, Essam Admitting Unavailable Alaina, Codeyam Attending Unavailable Shantell Osei Primary Care Unavailable Percy Herrera Admitting Unavailable NON STAFF Primary Care Unavailable Elashi, Essam Consulting Unavailable Tk Kapoor Attending Unavailable Isha Kowalski Consulting Unavailable Abby, Junior Consulting Unavailable Baksebastians, Aziz Consulting Unavailable Shantell Osei Primary Care Unavailable Irwin Theodore Attending Unavailable Elashi, Essam Consulting Unavailable Irwin Theodore Admitting Unavailable Runtali, Isha Consulting Unavailable Abby, Junior Consulting Unavailable Bakhous, Aziz Consulting Unavailable Xin Burdick Consulting Unavailable Pablo Valdez Consulting Unavaila Sajan Carias Consulting Unavailable Gomez Montes Consulting Unavailable Louis Bell Consulting Unavailable Rey Romero Consulting Unavailable Degroot, Basem Consulting Unavailable Jassi Arroyo Consulting Un available [place], Bashar Consulting Unavailable Vanda Mejía Consulting UnavailPatrice Chowdary Attending UnavailVivian Boyd Primary Care Unavailable Patrice Levine Admitting Unavailsaurabh fraga Unavailable Unavailable Unavailable Allergies Allergy Classification Reported Allergen(s) Allergy Type Date of Onset Reaction(s) Facility (20 sources) Contrast Allergy PreMed Pack Drug allergy Unknown [facility] Other (3 sources) Iodinated Contrast Media; Translations: [IODINATED CONTRAST MEDIA] Drug allergy (disorder) 0 [facility] Repository (1 source) Sulfonamides (Antibiotic) Propensity to adverse reactions to drug 6 [facility] [employer] Phone: (1 source) No Known Medication Allergies; Translations: [No Known Medication Allergies] Propensity to adverse reactions (disorder) [facility] Repository (1 source) Iodine; Translations: [IODINE] Drug Allergy 3 [facility] Repository (1 source) Sulfonamides (Antibiotic); Translations: [SULFA (SULFONAMIDE ANTIBIOTICS)] Propensity to adverse reactions to drug (disorder) 6 [facility] Repository (2 sources) Iodinated Contrast Media Drug allergy (disorder) 4 [facility] Repository Medications Current Medications Medication Drug Class(es) Dates Sig (Normalized) Sig (Original) acetaminophen 325 mg oral tablet (20 sources) Start: 05-20-2025 Acetaminophen (Tylenol) 325 mg tablet Active 1000 MG PO Daily as needed for pain May 20, 2025 12:00am Complies with drug therapy Start: 04-26-2024 acetaminophen (TYLENOL) tablet 650 mg acetaminophen (T ylenol Extra Strength) 500 MG tablet every 6 (six) hours Active take 2 tablets [facility] once daily in the morning as needed Acetaminophen 500 MG 2 tablet as needed Orally QAM Not-Taking [id number] 200 actuat albuterol 0.09 mg/actuat metered dose [...] a day as needed Active aspirin 81 mg delayed release oral tablet (20 sources) Platelet Aggregation Inhibitor, Nonsteroidal Anti-inflammatory Drug Start: Aspirin (Adult Low Dose Aspirin) 81 mg tablet,delayed release (DR/EC) Active 81 MG PO Daily February 23, 2025 12:00am Complies with drug therapy Start: 04-26-2024 take 81 mg by mouth once daily 81 mg, Oral, DAILY, First dose on 04/26/24 at 1315, Until Discontinued Do not crush or break. take 1 tablet by bobbi once daily Aspirin 81 81 MG 1 tablet Orally Once a day Not-Taking Aspirin 81 MG TA BS Quantity: 0 Refills: 0 Ordered: 13-Jul-2021 DO Active atorvastatin 10 mg oral tablet (20 sources) HMG-CoA Reductase Inhibitor Start: 06-18-2025 take 4 tablets by mouth once daily Atorvastatin 10 mg tablet Active 40 MG PO Daily June 18, 2025 2:09pm Complies with drug therapy Start: 02-24-2025 End: 06-18-2025 take 1 tablet by mouth once daily Atorvastatin 10 mg tablet Discontinued 10 MG PO Daily February 24, 2025 12:00am June 18, 2025 2:09pm Start: 04-26-2024 take 10 mg by mouth once daily 10 mg, Oral, DAILY, First dose on 04/26/24 at 1315, Until Discontinued Start: 12-05-2021 End: 02-24-2025 take 1 tablet by mouth once daily Atorvastatin (Lipitor) 40 mg tablet Discontinued 40 MG PO Daily December 05, 2021 1:00am February 24, 2025 1:35pm TAKE 1 TABLET BY MOUTH EVERY DAY FOR 90 DAYS carvedilol 25 mg oral tablet (20 sources) alpha-Adrenergic Yulissa, beta-Adrenergic Yulissa Start: 04-14-2025 take 1 tablet by mouth twice daily Carvedilol 25 mg tablet Active 25 MG PO Twice daily April 14, 2025 12:00am Complies with drug therapy Start: 02-24-2025 End: 04-14-2025 take 4 tablets by mouth twice daily Carvedilol 6.25 mg tablet Discontinued 25 MG PO Twice daily February 24, 2025 12:00am April 14, 2025 11:31am Start: 02-24-2025 take 1 tablet by bobbi th twice daily Carvedilol 6.25 mg tablet Active 6.25 MG PO Twice daily February 24, 2025 12:00am Start: 02-24-2025 End: 05-20-2025 take 1 tablet by mouth twice daily Carvedilol 12.5 mg tablet Discontinued 12.5 MG PO Twice daily February 24, 2025 12:00am May 20, 2025 1:42pm Start: 10-24-2024 take 1 tablet by bobbi twice daily Carvedilol 25 mg tablet Active [...] a day for 14 days Oct, Active cloNIDine hydrochloride 0.1 mg oral tablet (20 sources) Central alpha-2 Adrenergic Agonist Start: 05-20-2025 take 1 tablet by mouth twice daily Clonidine Hcl 0.1 mg Tablet Active 0.1 MG PO Twice daily 60 May 20, 2025 12:00am Complies with drug therapy Start: 07-11-2022 End: 03-01-2023 Clonidine 0.2 mg/24 [...] Transdermal Active take 1 tablet by bobbi th three times daily cloNIDine HCl - 0.1 MG Oral Tablet TAKE 1 TABLET 3 TIMES DAILY. Quantity: 0 Refills: 0 Ordered: 13-Jul-2021 DO Active take [address] [facility] every eight hours cloNIDine HCl 0.1 MG 3 tablet Orally tid for 90 day(s) Active take [address] [facility] every twelve hours cloNIDine HCl 0.1 MG 3 tablet Orally BID for 90 day(s) Active clopidogrel 75 mg oral tablet (20 sources) [id number] Platelet Inhibitor Start: 02-23-2025 End: 07-20-2025 take 1 tablet by mouth once daily Clopidogrel 75 mg tablet Active 75 MG PO Daily 90 July 20, 2025 10:48am Complies with drug therapy Start: 04-26-2024 take 75 mg by mouth [...] Start: 04-26-2024 enoxaparin (LOVENOX) injection 40 mg gabapentin 300 mg oral capsule (20 sources) Anti-epileptic Agent Start: 05-22-2023 End: 07-20-2025 take 1 capsule by mouth four times daily as needed for pain Gabapentin 300 mg capsule Active 300 MG PO Four times daily as needed for pain 120 July 20, 2025 10:49am Complies with drug therapy Start: 05-22-2023 take 1 capsule by mo uth twice daily Gabapentin 300 mg capsule Active [...] 04/26/24 at 1400, Until Discontinued Start: 08-24-2022 End: 07-20-2025 take 1 tablet by mouth twice daily Hydralazine 100 mg tablet Active 100 MG PO Twice daily 180 90 July 20, 2025 10:48am Complies with drug therapy Start: 08-24-2022 take 100 mg by mouth [...] food Orally Three times a day Active ibuprofen 800 mg oral tablet (1 source) Nonsteroidal Anti-inflammatory Drug Start: 07-15-2018 End: 04-27-2024 take 1 tablet by mouth every six hours as needed for pain ibuprofen (ADVIL;MOTRIN) 800 MG tablet Take 1 tablet by mouth every 6 hours as needed for Pain 120 tablet 5 07/15/2018 04/27/2024 Discontinued (Stop Taking at Discharge) 24 hr isosorbide mononitrate 60 mg extended release oral tablet (20 sources) Nitrate Vasodilator Start: 06-18-2025 take 1 tablet by mouth once daily, then take 2 tablets by mouth every twenty-four hours Isosorbide Mononitrate 60 mg tablet extended release 24 hr Active 30 MG PO Daily June 18, 2025 2:08pm Complies with drug therapy Start: 05-20-2025 End: 06-18-2025 take 1 tablet by mouth once daily, then take 1 tablet by mouth every twenty-four hours Isosorbide Mononitrate 60 mg Tablet Extended Release 24 Hr Discontinued 60 MG PO Daily May 20, 2025 12:00am June 18, 2025 2:08pm Start: 02-24-2025 End: 05-20-2025 take 1 tablet by mouth once daily, then take 1 tablet by mouth every twenty-four hours Isosorbide Mononitrate 30 mg tablet extended release 24 hr Discontinued 30 MG PO Daily February 24, 2025 12:00am May 20, 2025 1:42pm levothyroxine sodium 0.1 mg oral tablet (20 sources) l-Thyroxine Start: 02-24-2025 take 1 tablet by mouth once daily in the morning Levothyroxine 100 mcg tablet Active 100 MCG PO Daily February 24, 2025 12:00am FreeTextSig: TAKE 1 TABLET BY MOUTH EVERY MORNING ON AN EMPTY STOMACH orally qd; Note: Source Status: Taking; Refills: 1; Provider: Sea Damian Complies with drug therapy Start: 04-26-2024 levothyroxine (SYNTHROID) tablet 100 mcg [...] Angiotensin Converting Enzyme Inhibitor Start: 02-24-2025 take 2 tablets by mouth twice daily Lisinopril 10 mg tablet Active 20 MG PO Twice daily February 24, 2025 12:00am Complies with drug therapy Start: 02-24-2025 take 1 tablet by bobbi th twice daily Start: 04-26-2024 take 10 mg by mouth [...] IVPB premix methylPREDNISolone 4 mg oral tablet (5 sources) Corticosteroid Start: 07-20-2025 take 1 tablet by mouth once Methylprednisolone (Medrol (Miguel Angel)) 4 mg tablets,dose pack Active 0 PO per package directions July 20, 2025 12:00am PO PER PKG DIR Complies with drug therapy Start: 06-18-2025 End: 06-25-2025 take 1 tablet by mouth once Methylprednisolone (Medrol (Miguel Angel)) 4 mg tablets,dose pack Discontinued 0 PO per package directions June 18, 2025 12:00am June 25, 2025 9:57am PO PER PKG DIR Start: 05-15-2023 methylPREDNISo lone 4 MG take half with breakfast, half with dinner Orally as directed for May, Active Nephro-Vianca 0.8 MG (10 sources) take 1 tablet by bobbi th once daily Nephro-Vianca 0.8 MG TAKE 1 TABLET BY MOUTH EVERY DAY for 90 Active take 1 tablet by mouth once jenny y Nephro-Vianca 0.8 MG TAKE 1 TABLET BY MOUTH EVERY DAY for 30 Active ondansetron (ZOFRAN-ODT) disintegrating tablet 4 mg (1 source) Start: 04-26-2024 ondansetron (ZOFRAN-ODT) disintegrating tablet 4 mg polyethylene glycol 3350 71473 mg powder for oral solution (1 source) Osmotic Laxative Start: 04-26-2024 polyethylene glycol (GLYCOLAX) packet 17 g polyethylene glycol 3350 110613 mg / potassium chloride 2970 mg / sodium bicarbonate 6740 mg / sodium chloride 5860 mg / sodium sulfate 43111 mg powder for oral solution (1 source) [...] Start: 06-07-2022 take 1 tablet by bobbi every twelve hours predniSONE 20 MG 1 tablet Orally 2 times a day for 5 day(s) May, Active sennosides, fpc 8.6 mg oral tablet (20 sources) Start: 12-15-2021 take 2 tablets by mo [facility] every [facility]-four hours Senna 8.6 MG 2 tablets at bedtime as needed Orally Once a day for 90 day(s) Dec, Active 5 ml sodium chloride 9 mg/ml injection (3 sources) Start: 04-26-2024 0.9 % sodium chloride infusion Start: 04-26-2024 sodium chlorid e flush 0.9 % injection 5-40 mL sodium phosphate 15 mmol in sodium chloride 0.9 % 250 mL IVPB (1 source) Start: 04-26-2024 sodium phospha te 15 mmol in sodium chloride 0.9 % 250 mL IVPB sodium zirconium cyclosilicate 15246 mg powder for oral suspension (11 sources) [...] 01/12/2018 04/26/2024 Discontinued (LIST CLEANUP) triamcinolone acetonide 1 mg/ml topical cream (20 sources) Corticosteroid Start: 06-18-2025 End: 07-20-2025 Triamcinolone Acetonide 0.1 % cream Active 1 APPLIC TOPICAL Twice daily 80 7 July 20, 2025 11:02am Complies with drug therapy Start: 05-15-2023 Triamcinolone Acetonide 0.1 % 1 [...] / oxyCODONE hydrochloride 5 mg oral tablet (20 sources) Opioid Agonist Start: 08-24-2022 End: 03-01-2023 [...] Refills: 0 Ordered: 13-Jul-2021 DO Active amoxicillin 500 mg / clavulanate 125 mg oral tablet (17 sources) Penicillin-class Antibacterial Start: 04-28-2025 End: 05-11-2025 take 1 tablet by mouth once daily Amoxicillin-Pot Clavulanate (Augmentin) 500-125 mg tablet Discontinued 1 TAB PO Daily April 28, 2025 12:00am May 11, 2025 7:25am Start: 11-16-2022 take 1 tablet by bobbi th every twelve hours Amoxicillin-Pot Clavulanate 875-125 MG 1 tablet Orally every 12 hrs for 10 day(s) Nov, Active [id number]-Asb-C (16 sources) Osmotic Laxative, Vitamin C Start: 03-31-2025 End: 04-01-2025 take 1 dose by mouth once daily [id number] Vwk-Nasa-Lek-Asb-C (Plenvu) 140-9-5.2 gram powder in packet, sequential Discontinued 140 ML PO .COMPLEX 3 1 March 31, 2025 12:00am April 01, 2025 10:44am First dose at 4pm the day before colonoscopy, Second dose at 11pm the night before the colonoscopy atenolol 100 mg oral tablet (6 sources) beta-Adrenergi c Yulissa Atenolol 100 MG Oral Tablet Quantity: [...] take 1 tablet by mouth once daily bisoprolol-hydroch lorothiazide (ZIAC) 10-6.25 MG per tablet Indications: Essential hypertension Take 1 tablet by mouth daily 30 tablet 5 08/28/2018 04/26/2024 Discontinued (LIST CLEANUP) diclofenac sodium 75 mg delayed release oral tablet (2 sources) Nonsteroidal Anti-inflammatory Drug Start: 03-17-2020 take 1 tablet by mouth twice daily Diclofenac Sodium 75 MG Oral Tablet Delayed Release Take 1 tablet twice daily Quantity: 60 Refills: 5 Ordered: 17-Mar-2020 Ace Marr DO Start : 17-Mar-2020 Active diphenhydrAMINE hydrochloride 50 mg oral capsule (20 sources) Histamine-1 Receptor Antagonist Start: 03-01-2023 End: 05-22-2023 take 1 capsule by mouth once daily at bedtime Diphenhydramine Hcl 50 mg Capsule Discontinued 50 MG PO Daily at bedtime March 01, 2023 12:00am May 22, 2023 9:51am doxycycline hyclate 100 mg oral capsule (20 sources) Tetracycline-class Drug Start: 05-22-2023 End: 06-11-2023 [...] every other day for 90 day(s) Active furosemide 40 mg oral tablet (20 sources) Loop Diuretic Start: 07-07-2024 End: 04-13-2025 take 1 tablet by mouth twice daily Furosemide 40 mg tablet Discontinued 0 .ROUTE .COMPLEX 180 July 07, 2024 11:06am April 13, 2025 9:55am TAKE 1 TABLET BY MOUTH TWICE A [...] Orally twice daily for 30 day(s) Active 1 ml heparin sodium, porcine 1000 unt/ml injection (2 sources) Unfractionated Heparin, Anti-coagulant Start: 04-26-2024 End: 04-26-2024 heparin (porcine) injection 2,500 Units Start: 04-26-2024 End: 04-26-2024 heparin (porcine) injection 4,000 Units Ketorolac (20 sources) Nonsteroidal Anti-inflammatory Drug, Cyclooxygenase Inhibitor Start: 04-03-2020 Toradol per 15 mg Mar, 30 mg midodrine hydrochloride 5 mg oral tablet (18 sources) alpha-Adrenergic Agonist Start: 02-24-2025 End: 04-01-2025 take 1 tablet by mouth three times weekly as needed Midodrine 5 mg tablet Discontinued 5 MG PO .Three times a week as needed for during dialysis February 24, 2025 12:00am April 01, 2025 10:44am minoxidil 10 mg oral tablet (20 sources) [...] MG PO Daily July 10, 2022 11:00pm mupirocin 0.02 mg/mg topical ointment (12 sources) RNA Synthetase Inhibitor Antibacterial Start: 04-28-2025 End: 06-25-2025 Mupirocin 2 % ointment Discontinued 1 APPLIC TOPICAL Twice daily April 28, 2025 12:00am June 25, 2025 9:57am 24 hr nicotine 0.875 mg/hr transdermal system (19 sources) Cholinergic Nicotinic Agonist Start: 02-26-2025 End: 04-01-2025 apply 1 dose transdermal route every twenty-four hours Nicotine 21 mg/24 hr patch 24 hour Discontinued 1 PATCH TRANSDERML Daily February 26, 2025 12:00am April 01, 2025 10:44am Start: 04-26-2024 End: 04-29-2024 nicotine (NICODERM CQ) 21 MG /24HR 1 patch sertraline 25 mg oral tablet (20 sources) Serotonin Reuptake Inhibitor Start: 09-15-2021 End: 12-30-2021 take 1 tablet by mouth once daily Sertraline (Zoloft) 25 mg tablet Discontinued 25 MG PO Daily December 05, 2021 1:00am December 30, 2021 10:20am TAKE 1 TABLET BY MOUTH EVERY DAY sevelamer carbonate 800 mg oral tablet (20 sources) Phosphate Binder Start: 07-11-2022 End: 04-01-2025 take 2 tablets by mouth three times daily at mealtime Sevelamer Carbonate (Renvela) 800 mg tablet Discontinued 1600 MG PO THREE TIMES DAILY WITH MEALS July 11, 2022 12:00am April 01, 2025 10:44am Sod Picosulf-Mag Ox-Citric Ac (3 sources) Start: 06-04-2025 End: 07-20-2025 take 1 dose by mouth once daily Sod Picosulf-Mag Ox-Citric Ac (Clenpiq) 10 mg-3.5 gram- 12 gram/175 mL solution Discontinued 175 ML PO Daily 350 0 June 04, 2025 12:00am July 20, 2025 10:28am Take first dose at 3pm evening before colonoscopy; second dose at 9 pm night before colonoscopy Start: 06-04-2025 take 1 dose by mouth once daily Sod Picosulf-Mag Ox-Citric Ac (Clenpiq) 10 mg-3.5 gram- 12 gram/175 mL solution Active 175 ML PO Daily 350 0 June 04, 2025 12:00am Take first dose at 3pm evening before colonoscopy; second dose at 9 pm night before colonoscopy Complies with drug therapy Problems Active Problems Problem Classification Problem Date Documented Date Episodic/Chronic Acute and unspecified renal failure (16 sources) Uremia; Translations: [Unspecified kidney failure] 12-30-2021 Chronic Acute cerebrovascular disease (20 sources) Cerebrovascular accident; Translations: [Cerebral artery occlusion, unspecified with cerebral infarction] Onset: 1 Resolved: 1 Chronic Allergic reactions (7 sources) Dermatitis, unspecified; Translations: [Eczema] Episodic Calculus of urinary tract (20 sources) Kidney stone; Translations: [Calculus of kidney] Onset: 1 Resolved: 2 Episodic Cardiac arrest and ventricular fibrillation (20 sources) Cardiac arrest; Translations: [Cardiac arrest, cause [...] Chronic Complication of device; implant or graft (5 sources) Arteriovenous graft thrombosis; Translations: [Thrombosis due to vascular prosthetic devices, implants and grafts, initial encounter] Onset: 5 06-18-2025 Chronic Complication of device; implant or graft (16 sources) Disorder of arteriovenous shunt; Translations: [Other mechanical complication of surgically created arteriovenous shunt, initial encounter] Onset: 5 04-13-2025 Episodic Congestive heart failure; nonhypertensive (2 sources) Acute on chronic diastolic heart failure; Translations: [Acute on chronic diastolic (congestive) heart failure] Onset: 4 04-26-2024 Chronic Coronary atherosclerosis and other heart disease (4 sources) Atherosclerotic heart disease of [place] coronary artery without angina pectoris; Translations: [Atherosclerotic heart disease of [place] coronary artery with unspecified angina pectoris] Onset: 4 Chronic Deficiency and other anemia (20 sources) Anemia of renal disease; Translations: [Anemia in chronic kidney disease] 12-30-2021 Chronic Deficiency and other anemia (9 sources) Anemia in chronic kidney disease; Translations: [Anemia of renal disease D63.1] Onset: 1 Resolved: 2 Chronic Diseases of white blood cells (20 sources) Leukocytosis; Translations: [Elevated white blood cell count, unspecified] 01-08-2024 Chronic Disorders of lipid metabolism (20 sources) Hypercholesterolemia; Translations: [Pure hypercholesterolemia, unspecified] Onset: 4 12-05-2021 Chronic Esophageal disorders (1 source) Gastroesophageal reflux disease; Translations: [Gastro-esophageal reflux disease without esophagitis] Onset: 4 05-20-2014 Chronic Essential hypertension (20 sources) Hypertensive disorder; Translations: [Essential hypertension] Onset: 4 Resolved: 2 Chronic Fluid and electrolyte disorders [...] unspecified] Chronic Other aftercare (1 source) Other manager terminal (current) drug therapy; Translations: [OTH BUSINESS RULES ANALYST CURRENT DRUG THERAPY] Onset: 2 Episodic Other bone disease and musculoskeletal deformities (6 sources) Segmental and somatic dysfunction; Translations: [Nonallopathic lesions, thoracic region] Episodic Other circulatory disease (20 sources) Acquired arteriovenous fistula aneurysm; Translations: [Arteriovenous fistula, acquired] Chronic Other connective tissue disease (6 sources) Bursitis of shoulder; Translations: [Disorders of bursae and tendons in shoulder region, unspecified] Episodic Other connective tissue disease (6 sources) Other bursitis of hip, left hip; Translations: [Bursitis of left hip] Episodic Other diseases of kidney and ureters (20 sources) Secondary hyperparathyroidism; Translations: [Secondary hyperparathyroidism of renal origin] 12-30-2021 Chronic Other diseases of kidney and ureters (5 sources) Secondary hyperparathyroidism of renal origin; Translations: [Secondary hyperparathyroidism (of renal origin)] Onset: 5 05-22-2023 Chronic Other endocrine disorders (20 sources) Hyperparathyroidism; Translations: [Hyperparathyroidism, unspecified] 02-23-2025 Chronic Other endocrine disorders (8 sources) Hyperparathyroidism, unspecified; Translations: [Hyperparathyroidism E21.3] Onset: 1 Resolved: 2 Chronic Other eye disorders (20 sources) Vitreous floaters; Translations: [Other vitreous opacities, bilateral] 02-23-2025 Chronic Other eye disorders (16 sources) Bilateral vitreous floaters; Translations: [Other vitreous opacities, bilateral] 02-23-2025 Chronic Other gastrointestinal disorders (4 sources) Constipation, unspecified; Translations: [CONSTIPATION UNSPECIFIED] Onset: 2 Episodic Other inflammatory condition of skin (2 sources) Psoriasis plantaris; 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] 08-21-2024 Chronic Other lower respiratory disease (20 sources) Fluid overload pulmonary edema; Translations: [Chronic pulmonary edema] 02-24-2025 Chronic Other lower respiratory disease (3 sources) Chronic pulmonary edema; Translations: [Pulmonary congestion and hypostasis] Onset: 5 02-26-2025 Chronic Other lower respiratory disease (20 sources) Acute pulmonary edema; Translations: [Acute pulmonary edema] 03-01-2023 Episodic Other lower respiratory disease (3 sources) Acute pulmonary edema; Translations: [Acute edema of lung, unspecified] 01-09-2024 Episodic Other nervous system disorders (20 sources) Neuropathy; Translations: [Polyneuropathy, unspecified] 02-23-2025 Chronic Other nutritional; endocrine; and metabolic disorders (20 sources) Body mass index 30+ - obesity; Translations: [Body mass index (BMI) 31.0-31.9, adult] 02-23-2025 Chronic Other screening for suspected conditions (not mental disorders or infectious disease) (19 sources) Patient encounter status; Translations: [Screening for lipoid disorders] Onset: 4 Episodic Other skin disorders (1 source) Sebaceous cyst [...] Translations: [Insomnia, unspecified] Episodic Residual codes; unclassified (20 sources) Tobacco user; Translations: [Tobacco use] 03-01-2023 Episodic Residual codes; unclassified (12 sources) Failed encounter 05-20-2025 Episodic Respiratory failure; insufficiency; arrest (adult) (20 sources) Acute and chronic respiratory failure with hypercapnia; Translations: [Acute on chronic hypoxemic and hypercapnic respiratory failure] Onset: 5 03-01-2023 Chronic Respiratory failure; insufficiency; arrest (adult) (14 sources) Acute hypoxemic and hypercapnic respiratory failure; Translations: [Acute respiratory failure with hypoxia] Onset: 5 05-20-2025 Episodic Skin and subcutaneous tissue infections (20 sources) Cellulitis; Translations: [Cellulitis, unspecified] 05-22-2023 Episodic [...] DISEASE STG 3 UNSP] Onset: 2 Unclassified (11 sources) Their office is currently unavailable. Please call to schedule a 5 day post hospital appointment. Unclassified (12 sources) They will see you at Hemodialysis. Unclassified (1 source) Other pericardial effusion (noninflammatory); Translations: [Other pericardial effusion (noninflammatory)] Onset: 5 Unclassified (1 source) L30.9 - Dermatitis, unspecified Viral infection (20 sources) Plantar wart of left foot; Translations: [Plantar wart] Episodic Past or Other Problems Problem Classification Problem Date Documented Da te Episodic/Chronic Acute and unspecified renal failure (20 sources) Acute kidney failure, unspecified; Translations: [[id number] renal failure] Onset: 12-14-2021 02-24-2025 Episodic Bacterial infection; unspecified site (1 source) Bacteremia; Translations: [Bacteremia] Onset: 11-11-2024 Episodic Conditions associated with dizziness or vertigo (1 source) Dizziness and giddiness; Translations: [DIZZINESS AND GIDDINESS] Onset: 09-13-2021 Episodic Coronary atherosclerosis and other heart disease (2 sources) Presence of coronary angioplasty implant and graft; Translations: [Presence of coronary angioplasty implant and graft] Onset: 02-16-2025 Episodic Genitourinary symptoms and ill-defined conditions (3 sources) Retention of urine, unspecified; Translations: [RETENTION OF URINE UNSPECIFIED] Onset: 02-18-2022 Episodic Lymphadenitis (2 sources) Localized enlarged lymph nodes; Translations: [Localized enlarged lymph nodes] Onset: 03-12-2024 Episodic Other circulatory disease (1 source) Hypotension, unspecified Onset: 06-07-2022 Resolved: 06-07-2022 Episodic Other circulatory disease (2 sources) Personal history of transient ischemic attack (TIA), and cerebral infarction without residual deficits; Translations: [Personal history of transient ischemic attack (TIA), and cerebral infarction without residual deficits] Onset: 02-16-2025 Episodic Other nutritional; endocrine; and metabolic disorders (1 source) H/O: thyroid disorder; Translations: [Personal history of other endocrine, nutritional and metabolic disease] Onset: 01-08-2015 01-08-2015 Episodic Other skin disorders (1 source) Localized [...] CARRIED OUT PT LEAVE] Onset: 11-25-2021 Episodic Sprains and strains (7 sources) Strain [...] Test Name Value Interpretation Reference Range Facility BASIC METABOLIC PANELon 09-0 Anion gap [Moles/Vol] 15 mmol/L Normal 7-20 [facility] Comment on above: Performed By: #### L [id number] ####[facility] (BEAKER)[address] [place] [address] Calcium [Mass/Vol] 9.0 mg/dL Normal 8.6-10.3 [facility] Comment on above: Performed By: #### L [id number] ####[facility] ([facility])[address] [place] [address] Chloride [Moles/Vol] 95 mmol/L Low 98-107 [facility] Comment on above: Performed By: #### L [id number] ####[facility] ([facility])[address] [place] [address] CO2 [Moles/Vol] 29 mmol/L Normal 21-31 [facility] Comment on above: Performed By: #### L [id number] ####[facility] ([facility])[address] [place] [address] Creatinine [Mass/Vol] 7.65 mg/dL High 0.70-1.30 [facility] Comment on above: Performed By: #### L [id number] ####[facility] ([facility])[address] [place] [address] GLOMERULAR FILTRATION RATE ML/MIN/1.73 SQ M.PREDICTED 7.7 mL/min/1.73m*2 Low >60.0 [facility] Comment on above: Result Comment: The [facility]???s estimated glomerular filtration rate (eGFR) will [...] of individuals. Performed By: #### L [id number] ####[facility] ([facility])[address] [place] [address] Glucose [Mass/Vol] 87 mg/dL Normal 70-100 [facility] Comment on above: Performed By: #### L [id number] ####[facility] ([facility])[address] [place] [address] Potassium [Moles/Vol] 4.2 mmol/L Normal 3.5-5.1 [facility] Comment on above: Performed By: #### L [id number] ####[facility] ([facility])[address] [place] [address] Sodium [Moles/Vol] 135 mmol/L Low 136-145 [facility] Comment on above: Performed By: #### L [id number] ####[facility] ([facility])[address] [place] [address] Urea nitrogen [Mass/Vol] 24 mg/dL Normal 7-25 [facility] Comment on above: Performed By: #### L [id number] ####[facility] ([facility])[address] [place] [address] UREA NITROGEN/CREATININE (MASS RATIO) IN SER/PLAS 3.1 Normal [facility] Comment on above: Performed By: #### L [id number] ####[facility] ([facility])[address] [place] [address] CBC WITH AUTO DIFFERENTIALon 06-17-2025 Basophils (Bld) [#/Vol] 0.06 10*3/uL Normal 0.00-0.20 [facility] Comment on above: Performed By: #### L [id number] ####[facility] ([facility])[address] [place] [address] Basophils/100 WBC (Bld) 0.9 % Normal 0.0-1.0 [facility] Comment on above: Performed By: #### L [id number] ####[facility] ([facility])[address] [place] [address] Eosinophils (Bld) [#/Vol] 0.42 10*3/uL Normal 0.00-0.50 [facility] Comment on above: Performed By: #### L [id number] ####[facility] ([facility])[address] [place] [address] Eosinophils/100 WBC (Bld) 6.0 % Normal 0.0-6.0 [facility] Comment on above: Performed By: #### L [id number] ####[facility] ([facility])[address] [place] [address] Erythrocyte distribution width (RBC) [Ratio] 14.6 % Normal 11.5-15.0 [facility] Comment on above: Performed By: #### L [id number] ####[facility] ([facility])[address] [place] [address] ERYTHROCYTE MEAN CORPUSCULAR HEMOGLOBIN CONCENTRATION (G/DL) BY AUTOMATED 31.6 g/dL Low 32.0-35.0 [facility] Comment on above: Performed By: #### L [id number] ####[facility] ([facility])[address] [place] [address] Hematocrit (Bld) [Volume fraction] 37.7 % Low 39.0-50.0 [facility] Comment on above: Performed By: #### L [id number] ####[facility] ([facility]ER)[address] [place] [address] Hemoglobin (Bld) [Mass/Vol] 11.9 g/dL Low 13.0-17.0 [facility] Comment on above: Performed By: #### L [id number] ####[facility] ([facility])[address] [place] [address] Immature granulocytes (Bld) [#/Vol] 0.04 10*3/uL Normal 0.00-0.20 [facility] Comment on above: Performed By: #### L [id number] ####[facility] ([facility])[address] [place] [address] Immature granulocytes/100 WBC (Bld) 0.6 % Normal 0.0-1.0 [facility] Comment on above: Performed By: #### L [id number] ####[facility] ([facility]ER)[address] [place] [address] Lymphocytes (Bld) [#/Vol] 0.56 10*3/uL Low 1.20-4.00 [facility] Comment on above: Performed By: #### L [id number] ####[facility] ([facility]ER)[address] [place] [address] Lymphocytes/100 WBC (Bld) 8.0 % Low 20.0-45.0 [facility] Comment on above: Performed By: #### L [id number] ####[facility] ([facility])[address] [place] [address] MCH (RBC) [Entitic mass] 29.7 pg Normal 27.0-33.0 [facility] Comment on above: Performed By: #### L [id number] ####[facility] ([facility])[address] [place] [address] MCV (RBC) [Entitic vol] 94.0 fL Normal 82.0-98.0 [facility] Comment on above: Performed By: #### L [id number] ####[facility] ([facility])[address] [place] [address] Monocytes (Bld) [#/Vol] 0.70 10*3/uL Normal 0.10-1.00 [facility] Comment on above: Performed By: #### L [id number] ####[facility] ([facility])[address] [place] [address] Monocytes/100 WBC (Bld) 10.0 % Normal 5.0-12.0 [facility] Comment on above: Performed By: #### L [id number] ####[facility] ([facility])[address] [place] [address] Neutrophils (Bld) [#/Vol] 5.22 10*3/uL Normal 1.60-7.60 [facility] Comment on above: Performed By: #### L [id number] ####[facility] ([facility])[address] [place] [address] Neutrophils/100 WBC (Bld) 74.5 % High 40.0-72.0 [facility] Comment on above: Performed By: #### L [id number] ####[facility] ([facility])[address] [place] [address] NRBC (PER 100 WBCS) BY AUTOMATED COUNT 0.0 % Normal 0 [facility] Comment on above: Performed By: #### L [id number] ####[facility] ([facility])[address] [place] [address] PLATELETS (10*3/UL) IN BLOOD AUTOMATED COUNT 290 10*3/uL Normal 150-400 [facility] Comment on above: Performed By: #### L [id number] ####[facility] ([facility])[address] [place] [address] RBC (Bld) [#/Vol] 4.01 10*6/uL Low 4.20-5.70 [facility] Comment on above: Performed By: #### L [id number] ####[facility] ([facility])[address] [place] [address] WBC (Bld) [#/Vol] 7.00 10*3/uL Normal 4.00-10.60 [facility] Comment on above: Performed By: #### L [id number] ####[facility] ([facility])[address] [place] [address] DSon 06-17-2025 DS --- Attestation signed by Richi Amezcua MD at 06/18/2025 10:06 AM Patient was seen and examined with the resident on the same date of service, I discussed the findings and therapeutic plan with the resident/fellow, I agree with the documentation, assessment and plan as above except for any edits/updates below. Richi Amezcua MD doctor of veterinary medicine Pulmonary and critical care department [id number] Primary Pulmonary Service Discharge Summary Discharge Summary Final Discharge Diagnosis: Severe hyperkalemia secondary to missed hemodialysis in the setting of AV fistula malfunction. Clotted AV fistula. ESRD on hemodialysis (Sunday, , Sunday). COPD, not on home O2. Nicotine dependence. Essential hypertension. Anemia of chronic disease. CAD, s/p cardiac cath and LIMA placement. Admission Diagnosis: Hyperkalemia [E87.5] ESRD on hemodialysis ([facility]) [N18.6, Z99.2] Failing arteriovenous fistula, initial encounter [T82.590A] Hospital course: Patient is a 54-year-old male with PMH as outlined above, who presented to the ED on 06/14/2025 due to malfunctioning AV fistula. Patient reported that he had full hemodialysis treatment the prior, however when he went to hemodialysis treatment the previous day (Sunday), his AV fistula appeared to have clotted with no thrill or bruit noted. His primary landscape horticulture instructor recommend that he present to [facility]. In the ED, patient was hypertensive at 179/82, pulse 80. Respirations were 11, and he was saturating 100% on room air. Labs demonstrated sodium 135, potassium 6.6, creatinine 13.61/BUN 54. Patient received insulin, dextrose, and Lokelma to address hyperkalemia. Patient was evaluated by vascular surgery while in the ED, who confirmed clotted left upper extremity AV graft. ICU team was consulted for placement of trialysis line for hemodialysis. Patient was resumed on home antihypertensive medications, his home lisinopril was held due to hyperkalemia. Patient underwent tunneled hemodialysis catheter placement of the right subclavian with vascular surgery. Nephrology consulted for management of hemodialysis. Following placement of tunneled catheter, patient had his femoral trialysis catheter removed. Vascular surgery recommended that patient follow-up with his vascular surgeon in [place]. Patient received a total of 3 days of hemodialysis while inpatient, which she tolerated well. On the afternoon of 06/17/2025, patient was cleared to discharge home. Patient was discharged in afebrile and hemodynamically stable condition. Surgical, Invasive or Diagnostic Procedures Done During Admission: Tunneled HD catheter placement Consultations During Admission: Nephrology and Vascular Surgery Dear KISHOR Osei Donald is advised to follow up with you within 1-2 weeks. Items to follow up in ambulatory setting: None Follow-up with: Nephrology and Vascular Surgery Scheduled appointments: Future Appointments Date Time Provider Department Center 06/18/2025 7:30 AM 4 [facility] [place] [facility] 07/06/2025 9:45 AM Galilea Serrano NP [facility] Your medication list ASK your doctor about these medications Instructions Last Dose Given Next Dose Due albuterol 90 mcg/actuation inhaler aspirin 81 mg chewable tablet atorvastatin 40 mg tablet Commonly known as: Lipitor carvedilol 12.5 mg tablet Commonly known as: Coreg Take 1 tablet (12.5 mg) by mouth with breakfast and with evening meal. carvedilol 25 mg tablet Commonly known as: Coreg clopidogrel 75 mg tablet Commonly known as: Plavix Take 1 tablet (75 mg) by mouth in the morning. cyanocobalamin 1,000 mcg/mL injection Commonly known as: Vitamin B-12 INJECT 1ML INTO SHOULDER/THIGH OR BUTTOCKS ONCE A WEEK FOR 6 DOSES gabapentin 300 mg capsule Commonly known as: Neurontin hydrALAZINE 100 mg tablet Commonly known as: Apresoline isosorbide mononitrate ER 30 mg 24 hr tablet Commonly known as: Imdur Take 1 tablet (30 mg) by mouth once daily as directed. Do not crush or chew. levothyroxine 100 mcg tablet Commonly known as: Synthroid, Levoxyl lisinopril 20 mg tablet midodrine 5 mg tablet Commonly known as: Proamatine Nephro-Vianca 0.8 mg tablet Generic drug: B complex-vitamin C-folic acid nicotine 14 mg/24 hr patch Commonly known as: Nicoderm CQ Place 1 patch on the skin 1 (one) time each day at the same time. Leander is allergic to iodinated contrast media, iodine, and sulfa (sulfonamide antibiotics). Disposition: Home or Self Care () Discharge Condition: Good Code Status: Full Code Diagnostic Results Hematology: Results from last 7 days Lab Units 06/17/25 0326 06/16/25 0348 06/15/25 0513 06/14/25 1259 WBC AUTO 10*3/uL 7.00 8.19 < > 11.33* HEMOGLOBIN g/dL 11.9* 11.1* < > (more content not included)... Normal [facility] ANESon 06-16-2025 ANES Patient: Leander brunner Medical History[1] Principle problems: Patient Active Problem List Diagnosis Date Noted CAD, multiple vessel 09/23/2024 Hyperkalemia 06/14/2025 Nicotine dependence, unspecified, uncomplicated 02/16/2025 Multiple vessel coronary artery disease 09/23/2024 Unstable angina ([facility]) 09/22/2024 Personal history of transient ischemic attack (TIA), and cerebral infarction without residual deficits 06/12/2024 Coagulation defect, unspecified 06/09/2024 Leukocytosis 06/04/2024 Acute hypoxic respiratory failure ([facility]) 05/27/2024 NSTEMI (non-ST elevated myocardial infarction) ([facility]) 04/27/2024 Acute on chronic diastolic (congestive) heart failure ([facility]) 04/26/2024 Lymphadenopathy 02/07/2024 B12 deficiency 12/19/2023 Coronary artery disease involving [place] coronary artery of [place] heart without angina pectoris 12/13/2023 Acute hyperkalemia 11/19/2023 Acute on chronic respiratory failure with hypoxia and hypercapnia ([facility]) 11/19/2023 Cellulitis 11/19/2023 CKD (chronic kidney disease) stage 5, GFR less than 15 ml/min ([facility]) 11/19/2023 Acute pulmonary edema ([facility]) 11/19/2023 COPD exacerbation ([facility]) 11/19/2023 Hypokalemia 11/19/2023 Hyponatremia 11/19/2023 Secondary hyperparathyroidism 11/19/2023 Hypothyroid 11/19/2023 Hypertensive kidney disease with chronic kidney disease stage V ([facility]) 11/19/2023 Uremia 11/19/2023 Peripheral neuropathy 10/18/2023 Dependence on renal dialysis 06/27/2023 Smokers' cough ([facility]) 06/27/2023 Bilateral carotid artery stenosis 09/26/2022 Acquired hypothyroidism 09/26/2022 Tobacco abuse 09/26/2022 Obesity 09/26/2022 STEFANIE (obstructive sleep apnea) 09/26/2022 Hyperlipidemia 09/26/2022 Heart palpitations 09/26/2022 History of CHF (congestive heart failure) 09/26/2022 Vitamin D deficiency 09/26/2022 Anemia of renal disease 09/26/2022 Cerebrovascular accident (CVA) due to stenosis of left carotid artery ([facility]) 08/25/2021 End-stage renal disease needing dialysis ([facility]) 03/12/2021 History of [place] thyroiditis 01/08/2015 Depression 05/20/2014 GERD (gastroesophageal reflux disease) 05/20/2014 HTN (hypertension) 05/20/2014 ESRD on hemodialysis ([facility]) 06/14/2025 Lymphadenopathy, axillary 03/12/2024 Coronary artery disease with angina pectoris 12/14/2023 Preop cardiovascular exam 11/30/2023 Abnormal cardiovascular stress test 11/30/2023 Aortoiliac occlusive disease ([facility]) 05/31/2023 Encounter for pre-operative examination 05/31/2023 Hypertension 05/31/2023 Allergies: Allergies[2] 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/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 Medications: Prescriptions Prior to Admission[3] Current Medications[4] Past Surgical History: has a past surgical history that includes IR CT guided percutaneous biopsy renal left (Left, 03/22/2021); Carotid endarterectomy (Left, 07/22/2021); Appendectomy; Insertion / removal / replacement venous access catheter (03/16/2021); Insertion / removal / replacement venous access catheter (03/12/2021); Dental surgery; Renal biopsy (03/16/2021); Insertion / removal / replacement venous access catheter (03/13/2021); Cataract extraction (Right, 2016); CT abdomen pelvis wo renal recipient (10/26/2022); Vascular surgery (06/20/2023); Vascular surgery (06/22/2023); AV fistula placement; IR CT guided percutaneous lymph node superficial (01/30/2024); Cardiac catheterization; and Coronary stent placement. Physical Exam Airway Mallampati: II TM distance: >3 FB Neck ROM: full Cardiovascular Dental Pulmonary Plan ASA 3 [1] Past Medical History: Diagnosis Date Acute cerebrovascular accident (CVA) due to stenosis of left carotid artery ([facility]) 06/28/2021 Left MCA with multiple small to moderate ischemic infarcts Acute on chronic respiratory failure with hypoxia and hypercapnia ([facility]) Acute renal failure on dialysis 12/2021 Aortoiliac occlusive disease ([facility]) s/p aortobifemoral bypass 06/22/2023 Bilateral carotid artery stenosis CHF (congestive heart failure) ([facility]) COPD (chronic obstructive pulmonary disease) ([facility]) Coronary artery disease Depression ESRD (end stage renal disease) ([facility]) 03/12/2021 stopped for a time then restarted 12/31/2021, HD at [facility] T,R,Sa GERD (gastroesophageal reflux disease) Heart palpitations History of CHF (congestive heart failure) History of [place] thyroiditis Hyperlipidemia Hypertensive disorder Hypothyroidism Lymphadenopathy, axillary Normocytic anemia Obesity STEFANIE (obstructive sleep apnea) Peripheral artery disease Peripheral neuropathy PVD (peripheral vascular disease) TIA (transient ischemic attack) 2020 Tobacco abuse Vitamin D deficiency [2] Allergies Allergen Reactions Iodinated Contrast Media Unknown D/T Kidney function, not true allergy. Iodine Unknown Sulfa (Sulfonamide Antibiotics) Muscle twitch [3] Medications Prior to Admission (more content not included)... Normal [facility] BASIC METABOLIC PANELon 090 Anion gap [Moles/Vol] 15 mmol/L Normal 7-20 [facility] Comment on above: Performed By: #### L [id number] #### [facility] (BEAKER) [address] [place] [address] Calcium [Mass/Vol] 9.1 mg/dL Normal 8.6-10.3 [facility] Comment on above: Performed By: #### L [id number] #### [facility] (BEAKER) [address] [place] [address] Chloride [Moles/Vol] 99 mmol/L Normal 98-107 [facility] Comment on above: Performed By: #### L [id number] #### [facility] (BEAKER) [address] [place] [address] CO2 [Moles/Vol] 27 mmol/L Normal 21-31 [facility] Comment on above: Performed By: #### L [id number] #### [facility] ([facility]AKER) [address] [place] [address] Creatinine [Mass/Vol] 10.14 mg/dL High 0.70-1.30 [facility] Comment on above: Performed By: #### L [id number] #### [facility] (BEAKER) [address] [place] [address] GLOMERULAR FILTRATION RATE ML/MIN/1.73 SQ M.PREDICTED 5.5 mL/min/1.73m*2 Low >60.0 [facility] Comment on above: Result Comment: The [facility]???s estimated glomerular filtration rate (eGFR) will [...] of individuals. Performed By: #### L [id number] #### [facility] ([facility]) [address] [place] [address] Glucose [Mass/Vol] 84 mg/dL Normal 70-100 [facility] Comment on above: Performed By: #### L [id number] #### [facility] ([facility]) [address] [place] [address] Potassium [Moles/Vol] 5.1 mmol/L Normal 3.5-5.1 [facility] Comment on above: Performed By: #### L [id number] #### [facility] ([facility]) [address] [place] [address] Sodium [Moles/Vol] 136 mmol/L Normal 136-145 [facility] Comment on above: Performed By: #### L [id number] #### [facility] ([facility]) [address] [place] [address] Urea nitrogen [Mass/Vol] 35 mg/dL High 7-25 [facility] Comment on above: Performed By: #### L [id number] #### [facility] ([facility]) [address] [place] [address] UREA NITROGEN/CREATININE (MASS RATIO) IN SER/PLAS 3.5 Normal [facility] Comment on above: Performed By: #### L [id number] #### [facility] ([facility]) [address] [place] [address] CBC WITH AUTO DIFFERENTIALon 06-16-2025 Basophils (Bld) [#/Vol] 0.09 10*3/uL Normal 0.00-0.20 [facility] Comment on above: Performed By: #### L [id number] #### [facility] ([facility]) [address] [facility] [place] [address] Basophils/100 WBC (Bld) 1.1 % High 0.0-1.0 [facility] Comment on above: Performed By: #### L [id number] #### [facility] ([facility]) [address] [place] [address] Eosinophils (Bld) [#/Vol] 0.54 10*3/uL High 0.00-0.50 [facility] Comment on above: Performed By: #### L [id number] #### [facility] ([facility]) [address] [place] [address] Eosinophils/100 WBC (Bld) 6.6 % High 0.0-6.0 [facility] Comment on above: Performed By: #### L [id number] #### [facility] ([facility]) [address] [place] [address] Erythrocyte distribution width (RBC) [Ratio] 15.0 % Normal 11.5-15.0 [facility] Comment on above: Performed By: #### L [id number] #### [facility] ([facility]) [address] [place] [address] ERYTHROCYTE MEAN CORPUSCULAR HEMOGLOBIN CONCENTRATION (G/DL) BY AUTOMATED 31.6 g/dL Low 32.0-35.0 [facility] Comment on above: Performed By: #### L [id number] #### [facility] ([facility]) [address] [place] [address] Hematocrit (Bld) [Volume fraction] 35.1 % Low 39.0-50.0 [facility] Comment on above: Performed By: #### L [id number] #### [facility] (BEAKER) [address] [place] [address] Hemoglobin (Bld) [Mass/Vol] 11.1 g/dL Low 13.0-17.0 [facility] Comment on above: Performed By: #### L [id number] #### [facility] (BEAKER) [address] [place] [address] Immature granulocytes (Bld) [#/Vol] 0.04 10*3/uL Normal 0.00-0.20 [facility] Comment on above: Performed By: #### L [id number] #### [facility] (BEAKER) [address] [address] Immature granulocytes/100 WBC (Bld) 0.5 % Normal 0.0-1.0 [facility] Comment on above: Performed By: #### L [id number] #### [facility] (BEAKER) [address] [place] [address] Lymphocytes (Bld) [#/Vol] 0.56 10*3/uL Low 1.20-4.00 [facility] Comment on above: Performed By: #### L [id number] #### [facility] (BEAKER) [address] [place] [address] Lymphocytes/100 WBC (Bld) 6.8 % Low 20.0-45.0 [facility] Comment on above: Performed By: #### L [id number] #### [facility] (BEAKER) [address] [place] [address] MCH (RBC) [Entitic mass] 29.7 pg Normal 27.0-33.0 [facility] Comment on above: Performed By: #### L [id number] #### [facility] (BEAKER) [address] [place] [address] MCV (RBC) [Entitic vol] 93.9 fL Normal 82.0-98.0 [facility] Comment on above: Performed By: #### L [id number] #### [facility] (BEAKER) [address] [place] [address] Monocytes (Bld) [#/Vol] 0.74 10*3/uL Normal 0.10-1.00 [facility] Comment on above: Performed By: #### L [id number] #### [facility] ([facility]) [address] [place] [address] Monocytes/100 WBC (Bld) 9.0 % Normal 5.0-12.0 [facility] Comment on above: Performed By: #### L [id number] #### [facility] ([facility]) [address] [place] [address] Neutrophils (Bld) [#/Vol] 6.22 10*3/uL Normal 1.60-7.60 [facility] Comment on above: Performed By: #### L [id number] #### [facility] ([facility]) [address] [place] [address] Neutrophils/100 WBC (Bld) 76.0 % High 40.0-72.0 [facility] Comment on above: Performed By: #### L [id number] #### [facility] ([facility]) [address] [place] [address] NRBC (PER 100 WBCS) BY AUTOMATED COUNT 0.0 % Normal 0 [facility] Comment on above: Performed By: #### L [id number] #### [facility] ([facility]) [address] [place] [address] PLATELETS (10*3/UL) IN BLOOD AUTOMATED COUNT 296 10*3/uL Normal 150-400 [facility] Comment on above: Performed By: #### L [id number] #### [facility] ([facility]) [address] [place] [address] RBC (Bld) [#/Vol] 3.74 10*6/uL Low 4.20-5.70 [facility] Comment on above: Performed By: #### L [id number] #### [facility] (BEAKER) [address] [place] [address] WBC (Bld) [#/Vol] 8.19 10*3/uL Normal 4.00-10.60 [facility] Comment on above: Performed By: #### L [id number] #### [facility] ([facility]) [address] [place] [address] 30on 06-15-2025 30 The patient is Moderately Stable - Low risk of patient condition declining or worsening The patient's goals for the shift include Comfort, rest The clinical goals for the shift include Stable vitals and labs, comfort, rest, safety Normal [facility] 30 The patient is Moderately Stable - Low risk of patient condition declining or worsening The patient's goals for the shift include comfort, rest The clinical goals for the shift include VSS, comfort, rest Normal [facility] ALBUMINon 06-15-2025 Albumin [Mass/Vol] 3.6 g/dL Normal 3.5-5.7 [facility] Comment on above: Performed By: #### L [id number] #### [facility] ([facility]) [address] [place] [address] BASIC METABOLIC PANELon 09 Anion gap [Moles/Vol] 18 mmol/L Normal 7-20 [facility] Comment on above: Performed By: #### L [id number] ####[facility] ([facility])[address] [place] [address] Calcium [Mass/Vol] 9.0 mg/dL Normal 8.6-10.3 [facility] Comment on above: Performed By: #### L [id number] ####[facility] ([facility])[address] [place] [address] Chloride [Moles/Vol] 99 mmol/L Normal 98-107 [facility] Comment on above: Performed By: #### L [id number] ####[facility] ([facility])[address] [place] [address] CO2 [Moles/Vol] 26 mmol/L Normal 21-31 [facility] Comment on above: Performed By: #### L [id number] ####[facility] ([facility])[address] [place] [address] Creatinine [Mass/Vol] 10.87 mg/dL High 0.70-1.30 [facility] Comment on above: Performed By: #### L [id number] ####[facility] ([facility])[address] [place] [address] GLOMERULAR FILTRATION RATE ML/MIN/1.73 SQ M.PREDICTED 5.0 mL/min/1.73m*2 Low >60.0 [facility] Comment on above: Result Comment: The [facility]???s estimated glomerular filtration rate (eGFR) will [...] of individuals. Performed By: #### L [id number] ####[facility] ([facility])[address] [place] [address] Glucose [Mass/Vol] 80 mg/dL Normal 70-100 [facility] Comment on above: Performed By: #### L [id number] ####[facility] ([facility])[address] [place] [address] Potassium [Moles/Vol] 5.7 mmol/L High 3.5-5.1 [facility] Comment on above: Performed By: #### L [id number] ####[facility] ([facility])[address] [place] [address] Sodium [Moles/Vol] 137 mmol/L Normal 136-145 [facility] Comment on above: Performed By: #### L [id number] ####[facility] ([facility])[address] [place] [address] Urea nitrogen [Mass/Vol] 38 mg/dL High 7-25 [facility] Comment on above: Performed By: #### L [id number] ####[facility] ([facility])[address] [place] [address] UREA NITROGEN/CREATININE (MASS RATIO) IN SER/PLAS 3.5 Normal [facility] Comment on above: Performed By: #### L [id number] ####[facility] ([facility])[address] [place] [address] CBC WITH AUTO DIFFERENTIALon 06-15-2025 Basophils (Bld) [#/Vol] 0.09 10*3/uL Normal 0.00-0.20 [facility] Comment on above: Performed By: #### L [id number] ####[facility] ([facility])[address] [place] [address] Basophils/100 WBC (Bld) 0.9 % Normal 0.0-1.0 [facility] Comment on above: Performed By: #### L [id number] ####[facility] ([facility])[address] [place] [address] Eosinophils (Bld) [#/Vol] 0.47 10*3/uL Normal 0.00-0.50 [facility] Comment on above: Performed By: #### L [id number] ####[facility] ([facility])[address] [place] [address] Eosinophils/100 WBC (Bld) 4.7 % Normal 0.0-6.0 [facility] Comment on above: Performed By: #### L [id number] ####[facility] ([facility])[address] [place] [address] Erythrocyte distribution width (RBC) [Ratio] 14.8 % Normal 11.5-15.0 [facility] Comment on above: Performed By: #### L [id number] ####[facility] ([facility])[address] [place] [address] ERYTHROCYTE MEAN CORPUSCULAR HEMOGLOBIN CONCENTRATION (G/DL) BY AUTOMATED 31.6 g/dL Low 32.0-35.0 [facility] Comment on above: Performed By: #### L [id number] ####[facility] (BEAKER)[address] [place] [address] Hematocrit (Bld) [Volume fraction] 34.5 % Low 39.0-50.0 [facility] Comment on above: Performed By: #### L [id number] ####[facility] (BEAKER)[address] [place] [address] Hemoglobin (Bld) [Mass/Vol] 10.9 g/dL Low 13.0-17.0 [facility] Comment on above: Performed By: #### L [id number] ####[facility] ([facility]AKER)[address] [place] [address] Immature granulocytes (Bld) [#/Vol] 0.04 10*3/uL Normal 0.00-0.20 [facility] Comment on above: Performed By: #### L [id number] ####[facility] ([facility]AKER)[address] [place] [address] Immature granulocytes/100 WBC (Bld) 0.4 % Normal 0.0-1.0 [facility] Comment on above: Performed By: #### L [id number] ####[facility] (BEAKER)[address] [place] [address] Lymphocytes (Bld) [#/Vol] 0.60 10*3/uL Low 1.20-4.00 [facility] Comment on above: Performed By: #### L [id number] ####[facility] (BEAKER)[address] [place] [address] Lymphocytes/100 WBC (Bld) 5.9 % Low 20.0-45.0 [facility] Comment on above: Performed By: #### L [id number] ####[facility] (BEAKER)[address] [place] [address] MCH (RBC) [Entitic mass] 29.8 pg Normal 27.0-33.0 [facility] Comment on above: Performed By: #### L [id number] ####[facility] (BEAKER)[address] [place] [address] MCV (RBC) [Entitic vol] 94.3 fL Normal 82.0-98.0 [facility] Comment on above: Performed By: #### L [id number] ####[facility] (BEAKER)[address] [place] [address] Monocytes (Bld) [#/Vol] 0.74 10*3/uL Normal 0.10-1.00 [facility] Comment on above: Performed By: #### L [id number] ####[facility] (BEAKER)[address] [place] [address] Monocytes/100 WBC (Bld) 7.3 % Normal 5.0-12.0 [facility] Comment on above: Performed By: #### L [id number] ####[facility] (AKER)[address] [place] [address] Neutrophils (Bld) [#/Vol] 8.15 10*3/uL High 1.60-7.60 [facility] Comment on above: Performed By: #### L [id number] ####[facility] (BEAKER)[address] [place] [address] Neutrophils/100 WBC (Bld) 80.8 % High 40.0-72.0 [facility] Comment on above: Performed By: #### L [id number] ####[facility] ([facility]AKER)[address] [place] [address] NRBC (PER 100 WBCS) BY AUTOMATED COUNT 0.0 % Normal 0 [facility] Comment on above: Performed By: #### L [id number] ####[facility] ([facility]ER)[address] [place] [address] PLATELETS (10*3/UL) IN BLOOD AUTOMATED COUNT 285 10*3/uL Normal 150-400 [facility] Comment on above: Performed By: #### L [id number] ####[facility] (BEAKER)[address] [place] [address] RBC (Bld) [#/Vol] 3.66 10*6/uL Low 4.20-5.70 [facility] Comment on above: Performed By: #### L [id number] ####[facility] ([facility])[address] [place] [address] WBC (Bld) [#/Vol] 10.09 10*3/uL Normal 4.00-10.60 [facility] Comment on above: Performed By: #### L [id number] ####[facility] ([facility])[address] [place] [address] MAGNESIUMon 06-15-2025 Magnesium [Mass/Vol] 2.4 mg/dL Normal 1.9-2.7 [facility] Comment on above: Performed By: #### L [id number] #### [facility] ([facility]) [address] [place] [address] NURSNOTEon 06-15-2025 NURSNOTE Patient Name: Leander Decker : 1970 Primary Care Physician: KISHOR Jay Admission Date: 06/14/2025 RAPID RESPONSE TEAM ICU TRANSFER FOLLOW-UP NOTE SUBJECTIVE / OBJECTIVE: Follow-up for previous transfer out of the ICU notification for 06/14 at 2235. ASSESSMENT / INTERVENTIONS: Recent Vital Signs: Vitals: 06/15/25 1651 06/15/25 1839 06/15/25 1923 06/15/25 2300 BP: (!) 233/106 171/63 BP Location: Right wrist Patient Position: Lying Pulse: 77 86 89 80 Resp: 14 22 Temp: 36.6 ???C (97.9 ???F) 36.6 ???C (97.9 ???F) 36.1 ???C (97 ???F) TempSrc: Temporal Temporal Temporal SpO2: 96% 98% Weight: Height: Latest Labs: Lab Results Component Value Date WBC 10.09 06/15/2025 WBC 11.33 (H) 06/14/2025 HGB 10.9 (L) 06/15/2025 HGB 11.0 (L) 06/14/2025 HCT 34.5 (L) 06/15/2025 HCT 35.3 (L) 06/14/2025 MCV 94.3 06/15/2025 MCV 95.1 06/14/2025 PLT 285 06/15/2025 PLT 270 06/14/2025 NEUTROABS 8.15 (H) 06/15/2025 NEUTROABS 9.40 (H) 06/14/2025 Lab Results Component Value Date GLUCOSE 80 06/15/2025 GLUCOSE 83 06/14/2025 CALCIUM 9.0 06/15/2025 CALCIUM 9.1 06/14/2025 NA 137 06/15/2025 NA 137 06/14/2025 K 5.7 (H) 06/15/2025 K 5.7 (H) 06/15/2025 CO2 26 06/15/2025 CO2 28 06/14/2025 CL 99 06/15/2025 CL 96 (L) 06/14/2025 BUN 38 (H) 06/15/2025 BUN 26 (H) 06/14/2025 CREATININE 10.87 (H) 06/15/2025 CREATININE 6.89 (H) 06/14/2025 EGFR 5.0 (L) 06/15/2025 EGFR 8.7 (L) 06/14/2025 BCR 3.5 06/15/2025 BCR 3.8 06/14/2025 Lab Results Component Value Date MG 2.4 06/15/2025 MG 2.1 05/31/2024 Lab Results Component Value Date PHOS 4.9 06/15/2025 PHOS 5.2 (H) 05/31/2024 Lab Results Component Value Date ALT 4 (L) 05/28/2024 ALT 7 12/19/2023 AST 6 (L) 05/28/2024 AST 10 (L) 12/19/2023 ALKPHOS 58 05/28/2024 ALKPHOS 69 12/19/2023 BILITOT 0.4 05/28/2024 BILITOT 0.5 12/19/2023 Lab Results Component Value Date INR 1.06 06/14/2025 INR 1.06 05/29/2024 Follow-up: Patient seen resting in bed. Primary RN consulted for follow up. The patient's labs and vitals are stable at this time. The patient was hyperkalemic again this morning and received a dialysis treatment. Afterwards he was hypertensive with a systolic BP of 233 at 1923. Patient received hydralazine, clonidine, and carvedilol. BP improved to the 170's (see above). The primary RN voiced no concerns at this time. The screenplay writer urged the primary RN to call the rapid team if any concerns arise overnight. Bola Langston, RN Rapid Response Team Nurse [phone] 06/15/2025 11:15 PM [facility] NURSNOTE Primary RN attempted lab draw off of femoral trialysis pigtail at 1530 with no blood return, and swelling at site, RN notified regarding no blood return and swelling at site, Dr. Callahan assessed, no new orders, blood return noted from hemodialysis lines per Parris Lao RN. Primary RN informed , Dr. Callahan and on policy regarding removal of femoral lines within 24hrs of placement as well as the state of the trialysis. Dr. Callahan and Dr. Ledbetter deferred to . Dr. Guzman communicated to keep femoral line until fistulogram tomorrow, RN confirmed with readback. [facility] NURSNOTE Patient Name: Leander Decker : 1970 Primary Care Physician: KISHOR Jay Admission Date: 06/14/2025 RAPID RESPONSE TEAM ICU TRANSFER FOLLOW-UP NOTE SUBJECTIVE / OBJECTIVE: Follow-up for previous transfer out of the ICU notification for 06/14 at 1035. ASSESSMENT / INTERVENTIONS: Recent Vital Signs: Vitals: 06/15/25 0342 06/15/25 0617 06/15/25 0823 06/15/25 0944 BP: (!) 169/95 (!) 183/88 119/73 178/81 Pulse: 81 73 71 86 Resp: 13 16 17 Temp: 36.8 ???C (98.2 ???F) TempSrc: Oral SpO2: 97% 97% 96% Weight: Height: Latest Labs: Lab Results Component Value Date WBC 10.09 06/15/2025 WBC 11.33 (H) 06/14/2025 HGB 10.9 (L) 06/15/2025 HGB 11.0 (L) 06/14/2025 HCT 34.5 (L) 06/15/2025 HCT 35.3 (L) 06/14/2025 MCV 94.3 06/15/2025 MCV 95.1 06/14/2025 PLT 285 06/15/2025 PLT 270 06/14/2025 NEUTROABS 8.15 (H) 06/15/2025 NEUTROABS 9.40 (H) 06/14/2025 Lab Results Component Value Date GLUCOSE 80 06/15/2025 GLUCOSE 83 06/14/2025 CALCIUM 9.0 06/15/2025 CALCIUM 9.1 06/14/2025 NA 137 06/15/2025 NA 137 06/14/2025 K 5.7 (H) 06/15/2025 K 3.3 (L) 06/14/2025 CO2 26 06/15/2025 CO2 28 06/14/2025 CL 99 06/15/2025 CL 96 (L) 06/14/2025 BUN 38 (H) 06/15/2025 BUN 26 (H) 06/14/2025 CREATININE 10.87 (H) 06/15/2025 CREATININE 6.89 (H) 06/14/2025 EGFR 5.0 (L) 06/15/2025 EGFR 8.7 (L) 06/14/2025 BCR 3.5 06/15/2025 BCR 3.8 06/14/2025 Lab Results Component Value Date MG 2.4 06/15/2025 MG 2.1 05/31/2024 Lab Results Component Value Date PHOS 4.9 06/15/2025 PHOS 5.2 (H) 05/31/2024 Lab Results Component Value Date ALT 4 (L) 05/28/2024 ALT 7 12/19/2023 AST 6 (L) 05/28/2024 AST 10 (L) 12/19/2023 ALKPHOS 58 05/28/2024 ALKPHOS 69 12/19/2023 BILITOT 0.4 05/28/2024 BILITOT 0.5 12/19/2023 Lab Results Component Value Date INR 1.06 06/14/2025 INR 1.06 05/29/2024 Follow-up: Patient is doing OK at this time. Patient had dialysis and potassium has improved but recheck today shows 5.7. Patient has dialysis scheduled for tomorrow. Patient is asymptomatic at this time. Medications were given for high potassium. No emergent concerns at this time. If emergent concerns arise call rapid response team. Claudia Joseph RN Rapid Response Team Nurse [phone] 06/15/2025 11:27 AM Normal [facility] PHOSPHORUSon 06-15-2025 Magnesium [Mass/Vol] 4.9 mg/dL Normal 2.5-5.0 [facility] Comment on above: Performed By: #### L [id number] #### [facility] ([facility]) [address] [place] [address] POTASSIUMon 06-15-2025 Potassium [Moles/Vol] 5.7 mmol/L High 3.5-5.1 [facility] Comment on above: Performed By: #### L [id number] ####[facility] ([facility])[address] [place] [address] Potassium [Moles/Vol] 5.7 mmol/L High 3.5-5.1 [facility] Comment on above: Performed By: #### L [id number] ####[facility] ([facility])[address] [place] [address] 30on 06-14-2025 30 The patient is Moderately Stable - Low risk of patient condition declining or worsening The patient's goals for the shift include comfort, rest The clinical goals for the shift include VSS, comfort, rest Normal [facility] APTTon 06-14-2025 ACTIVATED PARTIAL THROMBOPLASTIN TIME IN PPP BY COAGULATION ASSAY 26.7 Seconds Normal 25.0-35.0 [facility] Comment on above: Result Comment: Clin ical significance of the APTT is questionable in the presence of heparin. Performed By: #### L [id number] ####[facility] ([facility])[address] [place] [address] BASIC METABOLIC PANELon 08- Anion gap [Moles/Vol] 16 mmol/L Normal 7-20 [facility] Comment on above: Performed By: #### L [id number] ####[facility] ([facility])[address] [place] [address] Calcium [Mass/Vol] 9.1 mg/dL Normal 8.6-10.3 [facility] Comment on above: Performed By: #### L [id number] ####[facility] ([facility])[address] [place] [address] Chloride [Moles/Vol] 96 mmol/L Low 98-107 [facility] Comment on above: Performed By: #### L [id number] ####[facility] ([facility])[address] [place] [address] CO2 [Moles/Vol] 28 mmol/L Normal 21-31 [facility] Comment on above: Performed By: #### L [id number] ####[facility] ([facility])[address] [place] [address] Creatinine [Mass/Vol] 6.89 mg/dL High 0.70-1.30 [facility] Comment on above: Performed By: #### L [id number] ####[facility] ([facility])[address] [place] [address] GLOMERULAR FILTRATION RATE ML/MIN/1.73 SQ M.PREDICTED 8.7 mL/min/1.73m*2 Low >60.0 [facility] Comment on above: Result Comment: The [facility]???s estimated glomerular filtration rate (eGFR) will [...] of individuals. Performed By: #### L [id number] ####[facility] ([facility])[address] [place] [address] Glucose [Mass/Vol] 83 mg/dL Normal 70-100 [facility] Comment on above: Performed By: #### L [id number] ####[facility] ([facility])[address] [place] [address] Potassium [Moles/Vol] 3.3 mmol/L Low 3.5-5.1 [facility] Comment on above: Performed By: #### L [id number] ####[facility] ([facility])[address] [place] [address] Sodium [Moles/Vol] 137 mmol/L Normal 136-145 [facility] Comment on above: Performed By: #### L [id number] ####[facility] ([facility])[address] [place] [address] Urea nitrogen [Mass/Vol] 26 mg/dL High 7-25 [facility] Comment on above: Performed By: #### L [id number] ####[facility] ([facility])[address] [place] [address] UREA NITROGEN/CREATININE (MASS RATIO) IN SER/PLAS 3.8 Normal [facility] Comment on above: Performed By: #### L [id number] ####[facility] ([facility])[address] [place] [address] Anion gap [Moles/Vol] 19 mmol/L Normal 7-20 [facility] Comment on above: Performed By: #### L [id number] #### [facility] ([facility]) [address] [place] [address] Calcium [Mass/Vol] 9.4 mg/dL Normal 8.6-10.3 [facility] Comment on above: Performed By: #### L [id number] #### [facility] ([facility]) [address] [place] [address] Chloride [Moles/Vol] 100 mmol/L Normal 98-107 [facility] Comment on above: Performed By: #### L [id number] #### [facility] ([facility]) [address] [place] [address] CO2 [Moles/Vol] 23 mmol/L Normal 21-31 [facility] Comment on above: Performed By: #### L [id number] #### [facility] ([facility]) [address] [place] [address] Creatinine [Mass/Vol] 13.61 mg/dL High 0.70-1.30 [facility] Comment on above: Performed By: #### L [id number] #### [facility] ([facility]) [address] [place] [address] GLOMERULAR FILTRATION RATE ML/MIN/1.73 SQ M.PREDICTED 3.9 mL/min/1.73m*2 Low >60.0 [facility] Comment on above: Result Comment: The [facility]???s estimated glomerular filtration rate (eGFR) will [...] group of individuals. Performed By: #### L [id number] #### [facility] ([facility]) [address] [place] [address] Glucose [Mass/Vol] 114 mg/dL High 70-100 [facility] Comment on above: Performed By: #### L [id number] #### [facility] ([facility]) [address] [place] [address] Potassium [Moles/Vol] 6.6 mmol/L Critically high 3.5-5.1 [facility] Comment on above: Performed By: #### L [id number] #### [facility] ([facility]) [address] [place] [address] Sodium [Moles/Vol] 135 mmol/L Low 136-145 [facility] Comment on above: Performed By: #### L [id number] #### [facility] ([facility]) [address] [place] [address] Urea nitrogen [Mass/Vol] 54 mg/dL High 7-25 [facility] Comment on above: Performed By: #### L [id number] #### [facility] ([facility]) [address] [place] [address] UREA NITROGEN/CREATININE (MASS RATIO) IN SER/PLAS 4.0 Normal [facility] Comment on above: Performed By: #### L [id number] #### [facility] ([facility]) [address] [place] [address] BLOOD GAS, VENOUSon 06-14-20 25 CO2 (BldV) [Partial pressure] 48 mm[Hg] Normal 40-50 [facility] Comment on above: Performed By: #### L [id number] #### [facility] ([facility]) [address] [place] [address] HCO3 (Bld) [Moles/Vol] 25.3 mmol/L Normal [facility] Comment on above: Performed By: #### L [id number] #### [facility] ([facility]) [address] [place] [address] Oxygen (BldV) [Partial pressure] 25 mm[Hg] Low 35-45 [facility] Comment on above: Performed By: #### L [id number] #### [facility] ([facility]) [address] [place] [address] OXYGEN SATURATION (%) IN VENOUS BLOOD 41.9 % Invalid Interpretation Code 65.0-75.0 [facility] Comment on above: Performed By: #### L [id number] #### [facility] ([facility]) [address] [place] [address] OXYGENATED HEMOGLOBIN, VENOUS 36.0 % Normal [facility] Comment on above: Performed By: #### L [id number] #### [facility] ([facility]) [address] [place] [address] PCO2 VENOUS TEMP ADJUSTED 48 mmHg Normal 40-50 [facility] Comment on above: Performed By: #### L [id number] #### [facility] ([facility]) [address] [place] [address] PH OF VENOUS BLOOD 7.33 Normal 7.31-7.41 [facility] Comment on above: Performed By: #### L [id number] #### [facility] ([facility]) [address] [place] [address] PH VENOUS TEMP ADJUSTED 7.33 Normal 7.31-7.41 [facility] Comment on above: Performed By: #### L [id number] #### [facility] ([facility]) [address] [place] [address] PO2 VENOUS TEMP ADJUSTED 25 mmHg Low 35-45 [facility] Comment on above: Performed By: #### L [id number] #### [facility] ([facility]) [address] [place] [address] TEMPERATURE 37.0 ???C Normal [facility] Comment on above: Performed By: #### L [id number] #### [facility] ([facility]) [address] [place] [address] CBC WITH AUTO DIFFERENTIALon 06-14-2025 Basophils (Bld) [#/Vol] 0.08 10*3/uL Normal 0.00-0.20 [facility] Comment on above: Performed By: #### L [id number] #### [facility] ([facility]) [address] [place] [address] Basophils/100 WBC (Bld) 0.7 % Normal 0.0-1.0 [facility] Comment on above: Performed By: #### L [id number] #### [facility] ([facility]) [address] [place] [address] Eosinophils (Bld) [#/Vol] 0.44 10*3/uL Normal 0.00-0.50 [facility] Comment on above: Performed By: #### L [id number] #### [facility] ([facility]) [address] [place] [address] Eosinophils/100 WBC (Bld) 3.9 % Normal 0.0-6.0 [facility] Comment on above: Performed By: #### L [id number] #### [facility] ([facility]) [address] [address] Erythrocyte distribution width (RBC) [Ratio] 15.0 % Normal 11.5-15.0 [facility] Comment on above: Performed By: #### L [id number] #### [facility] ([facility]) [address] [place] [address] ERYTHROCYTE MEAN CORPUSCULAR HEMOGLOBIN CONCENTRATION (G/DL) BY AUTOMATED 31.2 g/dL Low 32.0-35.0 [facility] Comment on above: Performed By: #### L [id number] #### [facility] ([facility]) [address] [place] [address] Hematocrit (Bld) [Volume fraction] 35.3 % Low 39.0-50.0 [facility] Comment on above: Performed By: #### L [id number] #### [facility] ([facility]) [address] [place] [address] Hemoglobin (Bld) [Mass/Vol] 11.0 g/dL Low 13.0-17.0 [facility] Comment on above: Performed By: #### L [id number] #### [facility] ([facility]) [address] [place] [address] Immature granulocytes (Bld) [#/Vol] 0.07 10*3/uL Normal 0.00-0.20 [facility] Comment on above: Performed By: #### L [id number] #### [facility] ([facility]) [address] [place] [address] Immature granulocytes/100 WBC (Bld) 0.6 % Normal 0.0-1.0 [facility] Comment on above: Performed By: #### L [id number] #### [facility] ([facility]) [address] [place] [address] Lymphocytes (Bld) [#/Vol] 0.65 10*3/uL Low 1.20-4.00 [facility] Comment on above: Performed By: #### L [id number] #### [facility] ([facility]) [address] [place] [address] Lymphocytes/100 WBC (Bld) 5.7 % Low 20.0-45.0 [facility] Comment on above: Performed By: #### L [id number] #### [facility] ([facility]) [address] [place] [address] MCH (RBC) [Entitic mass] 29.6 pg Normal 27.0-33.0 [facility] Comment on above: Performed By: #### L [id number] #### [facility] ([facility]) [address] [place] [address] MCV (RBC) [Entitic vol] 95.1 fL Normal 82.0-98.0 [facility] Comment on above: Performed By: #### L [id number] #### [facility] ([facility]) [address] [place] [address] Monocytes (Bld) [#/Vol] 0.69 10*3/uL Normal 0.10-1.00 [facility] Comment on above: Performed By: #### L [id number] #### [facility] ([facility]) [address] [place] [address] Monocytes/100 WBC (Bld) 6.1 % Normal 5.0-12.0 [facility] Comment on above: Performed By: #### L [id number] #### [facility] ([facility]) [address] [place] [address] Neutrophils (Bld) [#/Vol] 9.40 10*3/uL High 1.60-7.60 [facility] Comment on above: Performed By: #### L [id number] #### [facility] ([facility]) [address] [place] [address] Neutrophils/100 WBC (Bld) 83.0 % High 40.0-72.0 [facility] Comment on above: Performed By: #### L [id number] #### [facility] ([facility]) [address] [place] [address] NRBC (PER 100 WBCS) BY AUTOMATED COUNT 0.0 % Normal 0 [facility] Comment on above: Performed By: #### L [id number] #### [facility] ([facility]) [address] [place] [address] PLATELETS (10*3/UL) IN BLOOD AUTOMATED COUNT 270 10*3/uL Normal 150-400 [facility] Comment on above: Performed By: #### L [id number] #### [facility] ([facility]) [address] [place] [address] RBC (Bld) [#/Vol] 3.71 10*6/uL Low 4.20-5.70 [facility] Comment on above: Performed By: #### L [id number] #### [facility] ([facility]) [address] [place] [address] WBC (Bld) [#/Vol] 11.33 10*3/uL High 4.00-10.60 [facility] Comment on above: Performed By: #### L [id number] #### [facility] ([facility]) [address] [place] [address] CONSULTon 06-14-2025 CONSULT --- Attestation signed by Ella White MD at 06/17/2025 10:49 AM By using the attestations below, the signing clinician agrees that I have read and verify that the documentation has been personally reviewed by me and ensure that the documentation accurately reflects the encounter. GC: I personally saw this patient on the day of the encounter, performed the bridges portion(s) of the service and participated in the management and confirm the resident's documentation. Please note there may be an additional personal documentation from me Nephrology Consult Note Patient : Leander Decker; 54 y.o. Location: 12/15 Attending: Caden Vazquez MD Admit Date: 06/14/2025 Hospital Day: 0 Reason for Consult: Management of patient with ESRD on hemodialysis. History of Present Illness: Leander Decker is a 54 y.o. male with ESRD on hemodialysis Sunday// ay. Patient had full hemodialysis treatment on . Other than some intermittently high venous pressures, he had a full treatment with no prolonged bleeding or issues with clotting. He went yesterday to dialysis and the staff felt it was clotted with no thrill or bruit noted. His landscape horticulture instructor at [facility] recommended he come to [facility], since the vascular surgeons at [facility] were all out of town. He previously saw Dr Avila in 06/22/2023 for a fistulogram of his left upper extremity AV graft. Since that time, he has had an new created in his left FA. He recently had vein mapping done. Given the recent issues with his left FA AVG, he discussed placing a new dialysis access with vascular surgeon. Lab work done in ED demonstrated leukocytosis with WBC 11.33. Patient denied fevers, chills, shortness of breath or chest pain. Patient initially began dialysis on 03/12/2021 and dialyzes at [facility]. Vascular was consulted for placement of perma cath. At time of evaluation, patient was laying in bed in the [facility] ED. He was in no acute distress. He was hemodynamically stable. Blood pressure was 169/81 with pulse of 64. He states that he does not make urine. He denies headaches, blurred vision, nausea, vomiting, chest pain, palpitations, shortness of breath. Labs were reviewed. CHEM profile showed the following: Sodium 135, potassium 6.6, chloride 100, bicarb 23, BUN 54, creatinine 13.61. Calcium was 9.4. CBC was as follows: WBC 11.33, hemoglobin 11.0 (MCV 95.1), platelets 270. EKG was reviewed and did not show signs of hyperkalemia. Chest x-ray was reviewed and showed no acute cardiopulmonary disease. Review of Systems: Review of Systems Constitutional: Negative for chills, fatigue and fever. HENT: Negative for congestion, rhinorrhea, sore throat and trouble swallowing. Respiratory: Negative for cough, chest tightness, shortness of breath and wheezing. Cardiovascular: Negative for chest pain, palpitations and leg swelling. Gastrointestinal: Negative for abdominal pain, nausea and vomiting. Genitourinary: Negative for dysuria, flank pain, hematuria and urgency. Musculoskeletal: Negative for arthralgias, joint swelling and myalgias. Skin: Negative for color change, pallor and rash. Neurological: Negative for tremors, weakness, light-headedness and headaches. Input/Output: No intake/output data recorded. Vital Signs: Temperature: Temp: 36.9 ???C (98.4 ???F) TMax: Temp (24hrs), Av.9 ???C (98.4 ???F), Min:36.9 ???C (98.4 ???F), Max:36.9 ???C (98.4 ???F) Respirations: Resp: 11 Pulse: Heart Rate: 80 BP: BP: 179/82 BP Range: Systolic (24hrs), Av , Min:158 , Max:179 Diastolic (24hrs), Av, Min:65, Max:88 Wt Readings from Last 3 Encounters: 06/14/25 83.9 kg (185 lb) 02/16/25 89.8 kg (198 lb) 10/24/24 89.8 kg (198 lb) Physical Examination: Physical Exam Constitutional: General: He is not in acute distress. Appearance: Normal appearance. He is normal weight. He is not ill-appearing. HENT: Head: Normocephalic and atraumatic. Mouth/Throat: Mouth: Mucous membranes are moist. Eyes: General: No scleral icterus. Conjunctiva/sclera: Conjunctivae normal. Cardiovascular: Rate and Rhythm: Normal rate and regular rhythm. Pulses: Normal pulses. Pulmonary: Effort: Pulmonary effort is normal. Breath sounds: Normal breath sounds. Abdominal: General: Abdomen is flat. Bowel sounds are normal. There is no distension. Palpations: Abdomen is soft. Tenderness: There is no abdominal tenderness. Musculoskeletal: Right lower leg: Edema present. Left lower leg: Edema present. Comments: Graft located on left arm. Skin: General: Skin is warm and dry. Coloration: Skin is not jaundiced. Neurological: Mental Status: He is alert and oriented to person, place, and time. Psychiatr (more content not included)... Normal [facility] CONSULT Inpatient consult to Vascular Surgery Consult performed by: Imani Sanchez CNP Consult ordered by: Caden Vazquez MD Reason for consult: clotted AVG [facility] Vascular Surgery/Wound Care CONSULTATION Reason for Consult: clotted left AVG, placement of perma cath Subjective History of Present Illness: Leander Decker is a 54 y.o. male with Hx of Acute cerebrovascular accident (CVA) due to stenosis of left carotid artery ([facility]) (06/28/2021), Acute on chronic respiratory failure with hypoxia and hypercapnia ([facility]), Acute renal failure on dialysis ([facility]) (12/2021), Aortoiliac occlusive disease ([facility]), Bilateral carotid artery stenosis, CHF (congestive heart failure) ([facility]), COPD (chronic obstructive pulmonary disease) ([facility]), Coronary artery disease, Depression, ESRD (end stage renal disease) ([facility]) (03/12/2021), GERD (gastroesophageal reflux disease), Heart palpitations, History of CHF (congestive heart failure), History of Cuong thyroiditis, Hyperlipidemia, Hypertensive disorder, Hypothyroidism, Lymphadenopathy, axillary, Normocytic anemia, Obesity, STEFANIE (obstructive sleep apnea), Peripheral artery disease ([facility]), Peripheral neuropathy, PVD (peripheral vascular disease) (CMS/HCC), TIA (transient ischemic attack) (2020), Tobacco abuse, and Vitamin D deficiency. Patient states he had hemodialysis on and other than some intermittently high venous pressures he had a full treatment and no prolonged bleeding or issues with clotting. He went yesterday to dialysis and the staff felt it was clotted with no thrill or bruit noted. His landscape horticulture instructor at [facility] recommended he come to [facility] since the vascular surgeons at [facility] were all out of town. He previously saw Dr Avila in 06/22/2023 for a fistulogram of his left upper extremity AV graft. Since that time he has had an new created in his left FA. He recently had vein mapping done given the recent issues with his left FA AVG to discuss placing a new dialysis access. Lab work done in ED demonstrated leukocytosis with WBC 11.33 other lab work is pending. Patient denies fevers, chills, shortness of breath or chest pain. Patient initially began dialysis on 03/12/2021 and dialyzes at [facility]. Vascular was consulted for placement of perma cath. Review of Systems Constitutional: Negative. Eyes: Negative. Respiratory: Negative. Cardiovascular: Negative. Gastrointestinal: Negative. Endocrine: Negative. Musculoskeletal: Negative. Skin: Negative. Allergic/Immunologic: Negative. Neurological: Negative. Hematological: Negative. Psychiatric/Behavioral: Negative. All other systems reviewed and are negative. Medical History[1] Surgical History[2] Allergies[3] Current Medications[4] Social History Socioeconomic History Marital status: Spouse name: Not on file Number of children: Not on file Years of education: Not on file Highest education level: Not on file Occupational History Not on file Tobacco Use Smoking status: Former Current packs/day: 1.00 Average packs/day: 1 pack/day for 35.0 years (35.0 ttl pk-yrs) Types: Cigarettes Smokeless tobacco: Never Vaping Use Vaping status: Never Used Substance and Sexual Activity Alcohol use: Not Currently Drug use: Never Sexual activity: Defer Other Topics Concern Not on file Social History Narrative Not on file Social Drivers of Health Financial Resource Strain: Low Risk (09/22/2024) Overall Financial Resource Strain (CARDIA) Difficulty of Paying Living Expenses: Not hard at all Food Insecurity: No Food Insecurity (09/22/2024) Hunger Vital Sign Worried About Running Out of Food in the Last Year: Never true Ran Out of Food in the Last Year: Not on file Transportation Needs: No Transportation Needs (09/22/2024) Transportation Lack of Transportation (Medical): No Lack of Transportation (Non-Medical): Not on file Physical Activity: Not on file Stress: Not on file Social Connections: Not on file Intimate Partner Violence: Unknown (09/22/2024) Humiliation, Afraid, Rape, and Kick questionnaire Fear of Current or Ex-Partner: No Emotionally Abused: Not on file Physically Abused: Not on file Sexually Abused: Not on file Housing Stability: Low Risk (09/22/2024) Housing Stability Vital Sign Unable to Pay for Housing in the Last Year: No Number of Times Moved in the Last Year: Not on file Homeless in the Last Year: No Family History[5] Objective Physical Exam Vitals and nursing note reviewed. Constitutional: Appearance: Normal appearance. HENT: Head: Normocephalic and atraumatic. Eyes: Pupils: Pupils are equal, round, and reactive to light. Cardiovascular: Rate and Rhythm: Normal rate and regular rhythm. Pulses: Carotid pulses are 2+ on the right side and 2+ on the left side. Femoral pulses are 2+ on the right side and 2+ on the left side. Do (more content not included)... [facility] EDNURSon 06-14-2025 EDNURS Pt is a T-Th-Sat HD patient. Full treatment on without issue. Went to dialysis on Sunday and was told his fistula is not working and was unable to initiate treatment. Vascular surgeon in [facility] are all out of the office without anyone school transportation supervisor. Pt is here for a dialysis catheter until AV fistula is patent. [facility] EDPROVon 06-14-2025 EDPROV History of Present Illness Chief Complaint Patient presents with AV Fistula Issue Patient a 54-year-old male with a past medical history of coronary artery disease, CVA, GERD, hypertension, end-stage renal disease on dialysis, acquired hypothyroidism, STEFANIE, hyperlipidemia, history of CHF, COPD, peripheral vascular disease who presents to the emergency department today due to an AV fistula issue. Patient typically gets dialysis [facility], when he attended his Sunday dialysis session, he still to special was not alert working and they were unable to initiate dialysis. Vascular surgeon Migel said they were all out of the office without anyone school transportation supervisor, presented here for evaluation and for decision if he needs dialysis catheter placed before Sunday when his normal vascular surgeon at [facility] can see him in place something. Patient states that he does not currently feel overloaded, he has some minor foot ankle edema, but nothing more than usual, he is able to easily put his socks, boots on. No difficulties breathing, states he does not feel fluid overload. He has been self fluid restricting since yesterday. Susan Coma Scale Score: 15 History Medical History[1] Surgical History[2] Family History[3] Social History[4] Review of Systems Review of Systems Physical Exam ED Triage Vitals [06/14/25 1157] Temp Heart Rate Resp BP 36.9 ???C (98.4 ???F) 85 18 159/82 SpO2 Temp Source Heart Rate Source Patient Position 100 % Oral -- -- BP Location FiO2 (%) -- -- Physical Exam Constitutional: Appearance: Normal appearance. HENT: Head: Normocephalic. Mouth/Throat: Mouth: Mucous membranes are moist. Cardiovascular: Rate and Rhythm: Normal rate. Pulses: Normal pulses. Comments: Left forearm graft/fistula. No thrill noted on palpation or auscultation. Pulmonary: Effort: Pulmonary effort is normal. No respiratory distress. Breath sounds: No wheezing, rhonchi or rales. Abdominal: Palpations: Abdomen is soft. Tenderness: There is no abdominal tenderness. Skin: General: Skin is warm and dry. Neurological: General: No focal deficit present. Mental Status: He is alert and oriented to person, place, and time. Procedures ED Course & MDM Medical Decision Making Nury Hector Said (-scribe), documented on behalf of Dr. Vazquez on 06/14/25 at 1239. Leander Decker is a 54 y.o. male presenting to the ED with chief complaint of AV fistula issue. Dr. Vazquez personally saw and evaluated the patient. Dr. Vazquez discussed the management with the resident, Dr. Warner. Dr. Vazquez reviewed the resident's note and agrees with the documentation. Dr. Vazquez performed the substantive portion of the Physical exam. Exam findings as follows: Chronically ill appearing, no acute distress. Heart RRR. Lungs slightly diminished, no rales. Left forearm AV craft with no thrill. 1+ LE edema. Attestation: I performed a history and physical exam on this patient and discussed his or her management with the resident. I reviewed the resident's note and agree with the documented findings and plan of care with the following exceptions: None For procedures performed by the resident I was physically present during the bridges or critical portions of the procedure. Provider Statement SASHA: Provider Statement 2nd Scribe. By electronically signing this emergency patient record, the Emergency Physician/CLINICAL OPERATIONS CONSULTANT/PA-C attests that all entries made into the electronic medical record by the scribe prior to the Physician/CLINICAL OPERATIONS CONSULTANT/PA-C signature reflect an accurate accounting of the evaluation and care rendered by that Emergency Physician/CLINICAL OPERATIONS CONSULTANT/PA-C. The Emergency Physician/CLINICAL OPERATIONS CONSULTANT/PA-C assumes full responsibility for those entries. The Emergency Physician/CLINICAL OPERATIONS CONSULTANT/PA-C also attests that any patient testing or treatment that was instituted by nursing staff. [1] Past Medical History: Diagnosis Date Acute cerebrovascular accident (CVA) due to stenosis of left carotid artery ([facility]) 06/28/2021 Left MCA with multiple small to moderate ischemic infarcts Acute on chronic respiratory failure with hypoxia and hypercapnia ([facility]) Acute renal failure on dialysis 12/2021 Aortoiliac occlusive disease ([facility]) s/p aortobifemoral bypass 06/22/2023 Bilateral carotid artery stenosis CHF (congestive heart failure) ([facility]) COPD (chronic obstructive pulmonary disease) ([facility]) Coronary artery disease Depression ESRD (end stage renal disease) ([facility]) 03/12/2021 stopped for a time then restarted 12/31/2021, HD at [facility] T,R,Sa GERD (gastroesophageal reflux disease) Heart palpitations History of CHF (congestive heart failure) History of Cuong thyroiditis Hyperlipidemia Hypertensive disorder Hypothyroidism Lymphadenopathy, axillary Normocytic anemia Obesity STEFANIE (obstructive sleep apnea) Peripheral artery disease Peripheral neuropathy PVD (peripheral vascu (more content not included)... Normal [facility] EDPROV History of Present Illness Chief Complaint Patient presents with AV Fistula Issue Patient a 54-year-old male with a past medical history of coronary artery disease, CVA, GERD, hypertension, end-stage renal disease on dialysis, acquired hypothyroidism, STEFANIE, hyperlipidemia, history of CHF, COPD, peripheral vascular disease who presents to the emergency department today due to an AV fistula issue. Patient typically gets dialysis [facility], when he attended his Sunday dialysis session, he still to special was not alert working and they were unable to initiate dialysis. Vascular surgeon Migel said they were all out of the office without anyone school transportation supervisor, presented here for evaluation and for decision if he needs dialysis catheter placed before Sunday when his normal vascular surgeon at [facility] can see him in place something. Patient states that he does not currently feel overloaded, he has some minor foot ankle edema, but nothing more than usual, he is able to easily put his socks, boots on. No difficulties breathing, states he does not feel fluid overload. He has been self fluid restricting since yesterday. Susan Coma Scale Score: 15 History Medical History[1] Surgical History[2] Family History[3] Social History[4] Review of Systems Review of Systems Constitutional: Negative other than stated in HPI, ten systems reviewed Physical Exam ED Triage Vitals [06/14/25 1157] Temp Heart Rate Resp BP 36.9 ???C (98.4 ???F) 85 18 159/82 SpO2 Temp Source Heart Rate Source Patient Position 100 % Oral -- -- BP Location FiO2 (%) -- -- Physical Exam Vitals reviewed. Constitutional: Appearance: Normal appearance. HENT: Head: Normocephalic. Mouth/Throat: Mouth: Mucous membranes are moist. Eyes: Conjunctiva/sclera: Conjunctivae normal. Cardiovascular: Rate and Rhythm: Normal rate. Pulses: Normal pulses. Comments: Left forearm graft/fistula. No thrill noted on palpation or auscultation. Pulmonary: Effort: Pulmonary effort is normal. No respiratory distress. Breath sounds: No wheezing, rhonchi or rales. Abdominal: Palpations: Abdomen is soft. Tenderness: There is no abdominal tenderness. Musculoskeletal: Cervical back: Neck supple. Skin: General: Skin is warm and dry. Coloration: Skin is pale. Neurological: General: No focal deficit present. Mental Status: He is alert and oriented to person, place, and time. Sensory: No sensory deficit. Psychiatric: Mood and Affect: Mood normal. Behavior: Behavior normal. Critical Care Performed by: Caden Vazquez MD Authorized by: Cadne Vazquez MD Critical care provider statement: Critical care time (minutes): 30 Critical care start time: 06/14/2025 1:17 PM Critical care end time: 06/14/2025 2:17 PM Critical care time was exclusive of: Separately billable procedures and treating other patients and teaching time Critical care was necessary to treat or prevent imminent or life-threatening deterioration of the following conditions: Metabolic crisis Critical care was time spent personally by me on the following activities: Blood draw for specimens, development of treatment plan with patient or surrogate, discussions with consultants, evaluation of patient's response to treatment, examination of patient, obtaining history from patient or surrogate, ordering and performing treatments and interventions, ordering and review of laboratory studies, ordering and review of radiographic studies, pulse oximetry and re-evaluation of patient's condition Care discussed with: admitting provider ED Course & MDM ED Course as of 06/14/25 1417 Sun Jun 14, 2025 1300 XR chest 1 view No acute cardiopulmonary disease. [BR] 1300 Spoke with Vascular about the need for temporary Dialysis access. They stated that Dr. Avila is not here until Sunday, but a resident could place a temporary catheter tomorrow. [BR] 1301 Vascular agreed to assess patient [BR] 1339 hyperK meds ordered [AT] 1339 MICU called and made aware of patient. They will come and assess for admission. [BR] 1405 Patient told that he will need to be admitted due to his potassium levels. He was agreeable and displayed understanding [BR] 1413 EKG- nsr 69bpm, nonspec st, nl axis, qtc 452 [AT] ED Course User Index [AT] Caden Vazquez MD [BR] Ryan Warner MD Diagnoses as of 06/14/25 1417 Hyperkalemia ESRD on hemodialysis ([facility]) Failing arteriovenous fistula, initial encounter Medical Decision Making Vascular surgery/MICU contacted for admission and further interventions Amount and/or Complexity of Data Reviewed Labs: ordered. Decision-making details documented in ED Course. Radiology: ordered. Decision-making details documented in ED Course. ECG/medicine tests: ordered and independent interpretation performed. Decision-making details documented in ED Course. Risk Decision regarding hospitalizatio (more content not included)... Invalid Interpretation Code [facility] HEPATITIS B CORE ANTIBODY, I GMon 06-14-2025 HEPATITIS B VIRUS CORE IGM AB PRESENCE IN SER/PLAS BY IMMUNOASSY Negative Normal Negative [facility] Comment on above: Result Comment: INTE RPRETIVE INFORMATION: Hepatitis B Core Ab, IgM This assay should not be used for blood donor screening, associated re-entry protocols, or for screening Human Cells, Tissues and Cellular and Tissue-Based Products (HCT/P). Performed By: [facility] [address] [place] [id number] Taper And Floater: Harjit Chin MD, PhD CLIA Number: [id number] Performed By: #### L [id number] ####[facility] ([facility])[address] [place] [id number] HEPATITIS B SURFACE ANTIBODY QUANTon 06-14-2025 HEPATITIS B VIRUS SURFACE AB (MIU/ML) IN SERUM 0.98 mIU/mL Normal [facility] Comment on above: Result Comment: INTE RPRETATION: NONREACTIVE <8.00 mIU/mL INDETERMINATE 8.00 - 12.00 mIU/mL REACTIVE >12 mIU/mL Performed By: #### L [id number] ####[facility] ([facility])[address] [place] [address] HEPATITIS B SURFACE ANTIGENo n 06-14-2025 HEPATITIS B VIRUS SURFACE AG PRESENCE IN SERUM Non-Reactive Normal Nonreactive [facility] Comment on above: Performed By: #### L [id number] #### [facility] ([facility]) [address] [place] [address] HEPATITIS PANEL, ACUTEon HEPATITIS A VIRUS IGM AB PRESENCE IN SER/PLAS Non-Reactive Normal Nonreactive [facility] Comment on above: Performed By: #### L [id number] ####[facility] ([facility])[address] [place] [address] HEPATITIS B VIRUS CORE AB (PRESENCE) IN SER/PLAS BY IMM Non-Reactive Normal Nonreactive [facility] Comment on above: Performed By: #### L [id number] ####[facility] ([facility])[address] [place] [address] HEPATITIS B VIRUS SURFACE AG PRESENCE IN SERUM Non-Reactive Normal Nonreactive [facility] Comment on above: Performed By: #### L [id number] ####[facility] ([facility]ER)[address] [place] [address] HEPATITIS C VIRUS AB PRESENCE IN SERUM Non-Reactive Normal Nonreactive [facility] Comment on above: Performed By: #### L [id number] ####[facility] ([facility]ER)[address] [place] [address] HPon 06-14-2025 HP --- Attestation signed by Richi Amezcua MD at 06/15/2025 5:32 PM The patient was seen and examined with the resident/fellow on the same date of service, I discussed the findings and therapeutic plan and agree with the documentation, assessment and plan as above except for any edits/updates below. Critical Care services were required for the patient due to critical condition: Severe life-threatening hyperkalemia requiring hemodialysis. Clotted AV fistula ESRD on hemodialysis. Essential hypertension Anemia of chronic disease CAD s/p cardiac cath and LIMA placement COPD and nicotine dependence I personally provided direct critical care services consisting of: Patient received hyperkalemia treatment with insulin dextrose and Lokelma. Temporary trialysis catheter placed in right femoral artery for urgent HD treatment when can remove catheter after permacath placement or AV graft revision. Repeat BMP after hemodialysis. Low potassium diet. Hold Lisinopril Continue ASA, Plavix Resume home inhalers albuterol. Resume home antihypertensive medication patient is on carvedilol, hydralazine, lisinopril after hemodialysis. DVT and GI prophylaxis Critical Care minutes were 35, which excludes time performing separately billed procedures, updating family, and teaching. Adult ICU History & Physical Patient - Leander Decker Age - 54 y.o. - 1970 [facility] # - [id number] Date of Admission - 06/14/2025 11:57 AM Chief Complaint Malfunctioning Left AV Graft History of Present Illness Leander Decker is a 54 y.o. male born 1970 with past medical history of ESRD on hemodialysis TTS presented to emergency department for malfunctioning AV fistula. 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 Patient during my evaluation was comfortable in no acute distress. PMH: Patient has a past medical history of Acute cerebrovascular accident (CVA) due to stenosis of left carotid artery ([facility]) (06/28/2021), Acute on chronic respiratory failure with hypoxia and hypercapnia ([facility]), Acute renal failure on dialysis (12/2021), Aortoiliac occlusive disease ([facility]), Bilateral carotid artery stenosis, CHF (congestive heart failure) ([facility]), COPD (chronic obstructive pulmonary disease) ([facility]), Coronary artery disease, Depression, ESRD (end stage renal disease) ([facility]) (03/12/2021), GERD (gastroesophageal reflux disease), Heart palpitations, History of CHF (congestive heart failure), History of Cuong thyroiditis, Hyperlipidemia, Hypertensive disorder, Hypothyroidism, Lymphadenopathy, axillary, Normocytic anemia, Obesity, STEFANIE (obstructive sleep apnea), Peripheral artery disease, Peripheral neuropathy, PVD (peripheral vascular disease), TIA (transient ischemic attack) (2020), Tobacco abuse, and Vitamin D deficiency. PSH: Patient has a past surgical history that includes IR CT guided percutaneous biopsy renal left (Left, 03/22/2021); Carotid endarterectomy (Left, 07/22/2021); Appendectomy; Insertion / removal / replacement venous access catheter (03/16/2021); Insertion / removal / replacement venous access catheter (03/12/2021); Dental surgery; Renal biopsy (03/16/2021); Insertion / removal / replacement venous access catheter (03/13/2021); Cataract extraction (Right, 2016); CT abdomen pelvis wo renal recipient (10/26/2022); Vascular surgery (06/20/2023); Vascular surgery (06/22/2023); AV fistula placement; IR CT guided percutaneous lymph node superficial (01/30/2024); Cardiac catheterization; and Coronary stent placement. SH: Patient reports that he has quit smoking. His smoking use included cigarettes. He has a 35 pack-year smoking history. He has never used smokeless tobacco. He reports that he does not currently use alcohol. He reports that he does not use drugs. Alc/Tobacco/Drug: Patient reports that he does not currently use alcohol. reports that he has quit smoking. His smoking use included cigarettes. He has a 35 pack-year smoking history. He has never used smokeless tobacco. reports no history of drug use. Medications: Patient Current Medications[1] Allergies: Patient Iodinated contrast media, Iodine, and Sulfa (sul (more content not included)... Normal [facility] POCT GLUCOSE METER UNSOLICIT ED RESULTSon 06-14-2025 Glucose [Mass/Vol] 94 mg/dL Normal 70-105 [facility] Comment on above: Order Comment: Waive d Testing in the ED is performed under the ED CLIA certificate #[id number]. Result Comment: thol t Performed By: #### L [id number] ####[facility] ([facility] [place] [address] Glucose [Mass/Vol] 179 mg/dL High 70-105 [facility] Comment on above: Order Comment: Waive d Testing in the ED is performed under the ED CLIA certificate #[id number]. Result Comment: loida sagastume Performed By: #### L [id number] ####[facility] ([facility] [place] [address] PROTIME-INRon 06-14-2025 INR IN PPP BY COAGULATION ASSAY 1.06 Normal 0.90-1.10 [facility] Comment on above: Result Comment: ACCC P RECOMMENDED INR FOR WARFARIN THERAPY CONDITION INR PROPHYLAXIS OF VENOUS THROMBOSIS 2-3 (HIGH-RISK SURGERY) TREATMENT OF VENOUS THROMBOSIS 2-3 TREATMENT OF PULMONARY EMBOLISM 2-3 PREVENTION OF SYSTEMIC EMBOLISM: 2-3 ACUTE MYOCARDIAL INFARCTION TISSUE HEART VALVES VALVULAR HEART DISEASE ATRIAL FIBRILLATION RECURRENT SYSTEMIC EMBOLISM MECHANICAL HEART VALVE 2.5-3.5 FROM: ORAL ANTICOAGULANTS. MECHANISM OF ACTION, CLINICAL EFFECTIVENESS, AND OPTIMAL THERAPEUTIC RANGE. CHEST 1995;108:231S-246S. Performed By: #### L [id number] #### [facility] ([facility] [address] [place] [address] PROTHROMBIN TIME (PT) IN PPP BY COAGULATION ASSAY 13.8 Seconds Normal 12.3-14.8 [facility] Comment on above: Performed By: #### L [id number] #### [facility] ([facility] [address] [place] [address] Basic Metabolic Panelon 08-0 Anion gap [Moles/Vol] 17.5 mmol/L High 6.0-15.0 [facility] Comment on above: Order Comment: DRAW AT 0630 PER RN HOMAR pt with ultrasound Performed By: #### K #### [address] Calcium [Mass/Vol] 8.8 mg/dL Normal 8.6-10.3 [facility] Comment on above: Order Comment: DRAW AT 0630 PER RN HOMAR pt with ultrasound Performed By: #### K #### [place] [address] [place] Chloride [Moles/Vol] 95 mmol/L Low 98-107 [facility] Comment on above: Order Comment: DRAW AT 0630 PER RN HOMAR pt with ultrasound Performed By: #### K #### [address] CO2 [Moles/Vol] 28.5 mmol/L Normal 21.0-31.0 [facility] Comment on above: Order Comment: DRAW AT 0630 PER RN HOMAR pt with ultrasound Performed By: #### K #### [address] Creatinine [Mass/Vol] 7.99 mg/dL High 0.70-1.30 [facility] Comment on above: Order Comment: DRAW AT 0630 PER RN HOMAR pt with ultrasound Performed By: #### K #### [address] Creatinine Clr Calc Pharmacy 11.99 Normal [facility] Comment on above: Order Comment: DRAW AT 0630 PER RN HOMAR pt with ultrasound Result Comment: PERF ORMED BY: [address] [place] [address] PATHOLOGIST MOP MACHINE OPERATOR YFN MARCUS M.D. Performed By: #### K #### [address] GFR/1.73 sq M.predicted MDRD (S/P/Bld) [Vol rate/Area] 7.295 mL/min/{1.73_m2} Normal [facility] Comment on above: Order Comment: DRAW AT 0630 PER RN HOMAR pt with ultrasound Performed By: #### K #### [address] Glucose [Mass/Vol] 108 mg/dL High 70-100 [facility] Comment on above: Order Comment: DRAW AT 0630 PER RN HOMAR pt with ultrasound Result Comment: [place] Glucose Reference Range is dependent on time and content of last meal. Glucose of more than 200 mg/dL in a nonstressed, ambulatory subject supports the diagnosis of Diabetes Mellitus. ADA recommended reference range Performed By: #### K #### [address] Potassium [Moles/Vol] 4.0 mmol/L Normal 3.5-5.1 [facility] Comment on above: Order Comment: DRAW AT 0630 PER RN HOMAR pt with ultrasound Performed By: #### K #### [address] Sodium [Moles/Vol] 137 mmol/L Normal 136-145 [facility] Comment on above: Order Comment: DRAW AT 0630 PER RN HOMAR pt with ultrasound Performed By: #### K #### [place] [address] [place] Urea nitrogen [Mass/Vol] 30 mg/dL High 7-25 [facility] Comment on above: Order Comment: DRAW AT 0630 PER RN HOMAR pt with ultrasound Performed By: #### K #### [address] Complete Blood Count Auto Di ffon 05-20-2025 Basophils (Bld) [#/Vol] 0.1 10*3/uL Normal 0.0-0.2 [facility] Comment on above: Result Comment: PERF ORMED BY: [place] [address] PATHOLOGIST MOP MACHINE OPERATOR YFN MARCUS M.D. Performed By: #### C BC #### [place] [address] [place] Basophils/100 WBC (Bld) 0.7 % Normal . [facility] Comment on above: Performed By: #### C BC #### [address] [address] [place] Eosinophils (Bld) [#/Vol] 0.1 10*3/uL Normal 0.0-0.45 [facility] Comment on above: Performed By: #### C BC #### [address] Eosinophils/100 WBC (Bld) 0.6 % Normal . [facility] Comment on above: Performed By: #### C BC #### [address] Erythrocyte distribution width (RBC) [Ratio] 15.7 % High 12.0-14.8 [facility] Comment on above: Performed By: #### C BC #### [address] Hematocrit (Bld) [Volume fraction] 30.2 % Low 38.8-50.0 [facility] Comment on above: Performed By: #### C BC #### [address] Hemoglobin (Bld) [Mass/Vol] 10.0 g/dL Low 13.0-17.0 [facility] Comment on above: Performed By: #### C BC #### [address] Lymphocytes (Bld) [#/Vol] 0.7 10*3/uL Low 1.00-4.8 [facility] Comment on above: Performed By: #### C BC #### [address] Lymphocytes/100 WBC (Bld) 7.9 % Normal . [facility] Comment on above: Performed By: #### C BC #### [address] MCH (RBC) [Entitic mass] 30.3 pg Normal 27.5-35.2 [facility] Comment on above: Performed By: #### C BC #### [address] MCV (RBC) [Entitic vol] 91.6 fL Normal 83.5-101 [facility] Comment on above: Performed By: #### C BC #### [facility] [address] Mean Corpuscular HGB Conc 33.1 g/dL Normal 32.5-35.6 [facility] Comment on above: Performed By: #### C BC #### [facility] [address] Monocytes (Bld) [#/Vol] 0.4 10*3/uL Normal 0.0-0.8 [facility] Comment on above: Performed By: #### C BC #### [address] Monocytes/100 WBC (Bld) 4.3 % Normal . [facility] Comment on above: Performed By: #### C BC #### [address] Neutrophils (Bld) [#/Vol] 7.8 10*3/uL High 1.8-7.7 [facility] Comment on above: Performed By: #### C BC #### [address] Neutrophils/100 WBC (Bld) 86.5 % Normal . [facility] Comment on above: Performed By: #### C BC #### [address] NRBC% 0.1 /100{WBC} Normal 0-0.5 [facility] Comment on above: Performed By: #### C BC #### [facility] [address] Platelet mean volume (Bld) [Entitic vol] 7.8 fL Normal 6.6-10.1 [facility] Comment on above: Performed By: #### C BC #### [place] [address] [place] Platelets (Bld) [#/Vol] 402 10*3/uL Normal 150-450 [facility] Comment on above: Performed By: #### C BC #### [facility] [address] RBC (Bld) [#/Vol] 3.30 10*6/uL Low 3.90-5.60 [facility] Comment on above: Performed By: #### C BC #### [facility] [address] WBC (Bld) [#/Vol] 9.1 10*3/uL Normal 4.1-10.5 [facility] Comment on above: Performed By: #### C BC #### [facility] [address] White Blood Count 9.1 [CFU]/mL Normal 4.1-10.5 [facility] Comment on above: Performed By: #### C BC #### [address] US map hemodial access BILon 05-16-2025 US map hemodial access CELIA [facility] [place] [address] [place] [address] Ultrasound Report Signed Patient: Leander Decker MR#: [id number] 2 : 1970 Acct:[id number] Age/Sex: 54 / M ADM Date: 05/15/25 Loc: Room: Type: [facility] Attending Dr: Patrice Levine MD Ordering Provider: Raissa Oh APRN Date of Service: 05/15/25 US/US map hemodial access CELIA: Z99.2 - Dependence on renal dialysis Copies to: DONNY Pardo MD Bilateral upper extremity vein mapping examination Indication for study: Need for dialysis access PROCEDURE: B-mode imaging is used to interrogate the venous anatomy of both upper extremities. In the patient's right arm the upper arm basilic and cephalic vein both appear acceptable for creation of a fistula. The right upper arm basilic segments are 3 to 6 mm in diameter. The cephalic vein segments are 4 to 5 mm in diameter. Subclavian and axillary veins are patent on that side. Brachial artery is 6 mm radial artery is 2 mm. In the patient's left upper extremity the upper arm basilic vein again appears adequate at between 4 and 7 mm. Upper arm cephalic vein appears artery to have been exposed arterial pressure in the past as it measures between 7 and 10 mm. Brachial artery is just under 8 mm the radial artery is 2 mm. Subclavian veins are patent. US/US map hemodial access CELIA IMPRESSION: Multiple options exist for creation of autologous access in this patient as described above. Impression dictated by: Gerber Short M.D. 05/16/2025 9:32 AM Dictation Location: [place] [address] Tech: Kaylah Pollack Transcribed By: MARIUM 05/16/25931 Dictated By: Gerber Short MD 05/16/25929 Signed By: 05/16/25931 Normal [facility] Potassium [Moles/volume] in Serum or PlasmaOrdered By: Junior Mayo on 05-05-2025 Potassium [Moles/Vol] 6.0 mmol/L High 3.5-5.1 [facility] Comment on above: Result Comment: PERF ORMED BY: [place] [address] PATHOLOGIST MOP MACHINE OPERATOR YFN MARCUS M.D. Performed By: #### K #### [address] Potassium [Moles/volume] in Serum or PlasmaOrdered By: Junior Mayo on 04-28-2025 Potassium [Moles/Vol] 6.2 mmol/L Off scale high 3.5-5.1 [facility] Comment on above: Critical Result Call ed to and read back by: TRAN BERGER at: 04/28/2025 07:32:23 by:MLG Result Comment: Crit ical Result Called to and read back by: TRAN BEGRER at: 04/28/2025 07:32:23 by:MLG PERFORMED BY: [place] [address] PATHOLOGIST MOP MACHINE OPERATOR YFN MARCUS M.D. Performed By: #### K #### [address] Basophils [#/volume] in Bloo d by Automated countOrdered By: Robbi Gonzales on 04-14-2025 Basophils (Bld) [#/Vol] 0.1 10*3/uL Normal 0.0-0.2 [facility] Comment on above: Result Comment: PERF ORMED BY: [address] [place] [address] PATHOLOGIST MOP MACHINE OPERATOR YFN MARCUS M.D. Performed By: #### K #### [address] Basophils/100 leukocytes in Blood by Automated countOrdered By: Robbi Gonzales on 04-14-2025 Basophils/100 WBC (Bld) 0.5 % Normal . [facility] Comment on above: Performed By: #### K #### [address] Complete Blood Count Auto Di ffon 04-14-2025 Mean Corpuscular HGB Conc 32.7 g/dL Normal 32.5-35.6 [facility] Comment on above: Performed By: #### K #### [address] NRBC% 0.0 /100{WBC} Normal 0-0.5 [facility] Comment on above: Performed By: #### K #### [address] White Blood Count 13.9 [CFU]/mL High 4.1-10.5 [facility] Comment on above: Performed By: #### K #### [place] [address] [place] Eosinophils [#/volume] in Bl ood by Automated countOrdered By: Robbi Gonzales on 04-14-2025 Eosinophils (Bld) [#/Vol] 0.0 10*3/uL Normal 0.0-0.45 [facility] Comment on above: Performed By: #### K #### [address] [address] [place] Eosinophils/100 leukocytes i n Blood by Automated countOrdered By: Robbi Gonzales on 04-14-2025 Eosinophils/100 WBC (Bld) 0.0 % Normal . [facility] Comment on above: Performed By: #### K #### [address] Erythrocyte distribution wid th [Ratio] by Automated countOrdered By: Robbi Gonzales on 04-14-2025 Erythrocyte distribution width (RBC) [Ratio] 16.1 % High 12.0-14.8 [facility] Comment on above: Performed By: #### K #### [address] Erythrocytes [#/volume] in B lood by Automated countOrdered By: Robbi Gonzales on 04-14-2025 RBC (Bld) [#/Vol] 3.19 10*6/uL Low 3.90-5.[address] [facility] Comment on above: Performed By: #### K #### [address] Hematocrit [Volume Fraction] of Blood by Automated countOrdered By: Robbi Gonzales on 04-14-2025 Hematocrit (Bld) [Volume fraction] 30.0 % Low 38.8-50.0 [facility] Comment on above: Performed By: #### K #### [address] Hemoglobin [Mass/volume] in BloodOrdered By: Robbi Gonzales on 04-14-2025 Hemoglobin (Bld) [Mass/Vol] 9.8 g/dL Low 13.0-17.0 [facility] Comment on above: Performed By: #### K #### [address] [place] 04-14-2025 L --- Specimen: [id number] Received: 04/14/25 Status: ROBERTO Trey Num: [id number] Spec Type: Surgical Subm Dr: Patrice Levine MD Tissues: A Thrombus (LFT ARM) Procedures: SURJIT Gross/Micro L3 Age/ Patient Sex Location Account Attending Physician Leander Decker/M [place] [id number] Patrice Levine MD SPEC NUM: [id number] RECD: 04/14/25 STATUS: IVISArely JONAS NUM: [id number] DOMO: 04/14/[address] [facility] [address]: Patrice Levine MD ENTERED: 04/14/25 BILLY CARREON: KELL TYPE: Surgical DEPT: S ORDERED: SURJIT Gross/Micro L3 ORDERED: HE, Gross/Micro L3 Pathological Diagnosis A. Arteriovenous graft, left forearm (thrombectomy): Fragments of thrombus Clinical Information Thrombosed left forearm AV graft Gross Description A. The specimen is received in formalin, labeled with the patient's name, date of and designated thrombus . It consists of multiple fragments of blood clot and holland-pink fibrous soft tissue measuring in aggregate 1.6 x 1.3 x 0.3 cm. The specimen is submitted in toto in cassette A1. (1, in toto, ) CPT Codes 45386 Specimen: [id number] Received: 04/14/25 Status: ROBERTO Trey Num: [id number] Spec Type: Surgical Subm Dr: Patrice Levine MD Tissues: A Thrombus (LFT ARM) Procedures: Alejandrina EDDY/Adonay L3 Patient: Leander Decker [id number] (Continued) Signed (signature on file) Hero Mullen Jr., MD 04/16/25 1719 Normal [facility] Leukocytes [#/volume] correc bernardo for nucleated erythrocytes in Blood by Automated counOrdered By: Robbi Gonzales on 04-14-2025 WBC corrected for nucl RBC Auto (Bld) [#/Vol] 13.9 10*3/uL High 4.1-10.5 [facility] Leukocytes [#/volume] in Blo od by Automated countOrdered By: Robbi Gonzales on 04-14-2025 WBC (Bld) [#/Vol] 13.9 10*3/uL High 4.1-10.[address] [facility] Comment on above: Performed By: #### K #### [facility] [address] [place] [address] [place] Lymphocytes [#/volume] in Bl ood by Automated countOrdered By: Robbi Gonzales on 04-14-2025 Lymphocytes (Bld) [#/Vol] 0.5 10*3/uL Low 1.00-4.8 [facility] Comment on above: Performed By: #### K #### [facility] [address] [place] [address] [place] Lymphocytes/100 leukocytes i n Blood by Automated countOrdered By: Robbi Gonzales on 04-14-2025 Lymphocytes/100 WBC (Bld) 3.6 % Normal . [facility] Comment on above: Performed By: #### K #### [facility] [address] [place] [address] [place] MCH [Entitic mass] by Automa bernardo countOrdered By: Robbi Gonzales on 04-14-2025 MCH (RBC) [Entitic mass] 30.7 pg Normal 27.5-35.2 [facility] Comment on above: Performed By: #### K #### [facility] [address] MCHC Auto (RBC) [Mass/Vol]Or dered By: Robbi Gonzales on 04-14-2025 MCHC (RBC) [Mass/Vol] 32.7 g/dL 32.5-35.6 [facility] MCV [Entitic volume] by Auto mated countOrdered By: Robbi Gonzales on 04-14-2025 MCV (RBC) [Entitic vol] 93.8 fL Normal 83.5-101 [facility] Comment on above: Performed By: #### K #### [place] [address] [place] Monocytes [#/volume] in Bloo d by Automated countOrdered By: Robbi Gonzales on 04-14-2025 Monocytes (Bld) [#/Vol] 0.5 10*3/uL Normal 0.0-0.8 [facility] Comment on above: Performed By: #### K #### [place] [address] [place] Monocytes/100 leukocytes in Blood by Automated countOrdered By: Robbi Gonzales on 04-14-2025 Monocytes/100 WBC (Bld) 3.6 % Normal . [facility] Comment on above: Performed By: #### K #### [place] [address] [place] Neutrophils [#/volume] in Bl ood by Automated countOrdered By: Robbi Gonzales on 04-14-2025 Neutrophils (Bld) [#/Vol] 13.0 10*3/uL High 1.8-7.7 [facility] Comment on above: Performed By: #### K #### [place] [address] [place] Neutrophils/100 leukocytes i n Blood by Automated countOrdered By: Robbi Gonzales on 04-14-2025 Neutrophils/100 WBC (Bld) 92.3 % Normal . [facility] Comment on above: Performed By: #### K #### [place] [address] [place] Nucleated erythrocytes [Pres ence] in Blood by Automated countOrdered By: Robbi Gonzales on 04-14-2025 Nucleated RBC Auto Ql (Bld) 0.0 /100{WBC} 0-0.5 [facility] Platelet mean volume [Entiti c volume] in Blood by Automated countOrdered By: Robbi Gonzales on 04-14-2025 Platelet mean volume (Bld) [Entitic vol] 7.6 fL Normal 6.6-10.1 [facility] Comment on above: Performed By: #### K #### [address] Platelets [#/volume] in Bloo d by Automated countOrdered By: Robbi Gonzales on 04-14-2025 Platelets (Bld) [#/Vol] 394 10*3/uL Normal 150-450 [facility] Comment on above: Performed By: #### K #### [address] Potassium [Moles/volume] in Serum or PlasmaOrdered By: Robbi Gonzales on 04-14-2025 Potassium [Moles/Vol] 5.6 mmol/L High 3.5-5.1 [facility] Comment on above: Result Comment: PERF ORMED BY: [place] [address] PATHOLOGIST MOP MACHINE OPERATOR YFN MARCUS M.D. Performed By: #### P T, HS TROP, CBC #### [address] Basic Metabolic Panelon 06-3 Anion gap [Moles/Vol] 19.9 mmol/L High 6.0-15.0 [facility] Comment on above: Performed By: #### P T, HS TROP, CBC #### [address] Calcium [Mass/Vol] 9.2 mg/dL Normal 8.6-10.3 [facility] Comment on above: Performed By: #### P T, HS TROP, CBC #### [place] [address] [place] Chloride [Moles/Vol] 98 mmol/L Normal 98-107 [facility] Comment on above: Performed By: #### P T, HS TROP, CBC #### [facility] [address] CO2 [Moles/Vol] 24.8 mmol/L Normal 21.0-31.0 [facility] Comment on above: Performed By: #### P T, HS TROP, CBC #### [facility] [address] Creatinine [Mass/Vol] 15.00 mg/dL High 0.70-1.30 Th e [facility] Comment on above: Performed By: #### P T, HS TROP, CBC #### [address] Creatinine Clr Calc Pharmacy 5.86 Normal [facility] Comment on above: Result Comment: PERF ORMED BY: [place] [address] PATHOLOGIST MOP MACHINE OPERATOR YFN MARCUS M.D. Performed By: #### P T, HS TROP, CBC #### [address] GFR/1.73 sq M.predicted MDRD (S/P/Bld) [Vol rate/Area] 3.426 mL/min/{1.73_m2} Normal [facility] Comment on above: Performed By: #### P T, HS TROP, CBC #### [address] Glucose [Mass/Vol] 103 mg/dL High 70-100 [facility] Comment on above: Result Comment: [place] Glucose Reference Range is dependent on time and content of last meal. Glucose of more than 200 mg/dL in a nonstressed, ambulatory subject supports the diagnosis of Diabetes Mellitus. ADA recommended reference range Performed By: #### P T, HS TROP, CBC #### [facility] [address] Potassium [Moles/Vol] 4.7 mmol/L Normal 3.5-5.1 [facility] Comment on above: Performed By: #### P T, HS TROP, CBC #### [facility] [address] [place] [address] [place] Sodium [Moles/Vol] 138 mmol/L Normal 136-145 [facility] Comment on above: Performed By: #### P T, HS TROP, CBC #### [facility] [address] [place] [address] [place] Urea nitrogen [Mass/Vol] 65 mg/dL High 7-25 [facility] Comment on above: Performed By: #### P T, HS TROP, CBC #### [facility] [address] [place] [address] [place] Potassium [Moles/volume] in Serum or PlasmaOrdered By: Junior Mayo on 04-11-2025 Potassium [Moles/Vol] 4.2 mmol/L Normal 3.5-5.1 [facility] Comment on above: Result Comment: PERF ORMED BY: [place] [address] PATHOLOGIST MOP MACHINE OPERATOR YFN MARCUS M.D. Performed By: #### K #### [place] [address] [place] Potassium [Moles/volume] in Serum or PlasmaOrdered By: Toby Venegas on 03-31-2025 Potassium [Moles/Vol] 5.1 mmol/L Normal 3.5-5.1 [facility] Comment on above: Result Comment: PERF ORMED BY: [place] [address] PATHOLOGIST MOP MACHINE OPERATOR YFN MARCUS M.D. Performed By: #### P T, HS TROP, CBC #### [facility] [address] [place] [address] [place] Potassium [Moles/volume] in Serum or PlasmaOrdered By: Toby Venegas on 03-10-2025 Potassium [Moles/Vol] Potassium [Moles/volume] in Serum or Plasma 3.5-5.1 [facility] Potassium [Moles/Vol] 4.7 mmol/L Normal 3.5-5.1 [facility] Comment on above: Result Comment: PERF ORMED BY: [place] [address] PATHOLOGIST MOP MACHINE OPERATOR YFN MARCUS M.D. Performed By: #### K #### [facility] [address] [place] [address] A1C with Estimated Average G luon 02-26-2025 Glucose [Mass/Vol] 94 mg/dL Normal [facility] Comment on above: Order Comment: DRAW AT 0630 PER RN YURI PT BEEN AWAKE ALL NIGHT- [id number] Result Comment: PERF ORMED BY: [place] [address] PATHOLOGIST MOP MACHINE OPERATOR SAJAN MAGANA M.D. Performed By: #### P T, HS TROP, CBC #### [address] Basic Metabolic Panelon 02-12 Creatinine Clr Calc Pharmacy 8.74 Normal [facility] Comment on above: Order Comment: DRAW AT 0630 PER RN YURI PT BEEN AWAKE ALL NIGHT- [id number] Performed By: #### P T, HS TROP, CBC #### [place] [id number] [facility] Estimated GFR 5.540 mL/Min Normal [facility] Comment on above: Order Comment: DRAW AT 0630 PER RN YURI PT BEEN AWAKE ALL NIGHT- [id number] Performed By: #### P T, HS TROP, CBC #### [address] Blood estimated average gluc ose determination by estimation from glycated hemoglobinOrdered By: Irwin Theodore on 02-26-2025 Average glucose Estimated from glycated hemoglobin (Bld) [Mass/Vol] Glucose mean value [Mass/volume] in Blood Estimated from glycated hemoglobin [facility] Average glucose Estimated from glycated hemoglobin (Bld) [Mass/Vol] 94 mg/dL [facility] Calcium [Mass/volume] in Ser um or PlasmaOrdered By: Irwin Theodore on 02-26-2025 Calcium [Mass/Vol] Calcium [Mass/volume ] in Serum or Plasma 8.6-10.3 [facility] Calcium [Mass/Vol] 8.9 mg/dL Normal 8.6-10.3 [facility] Comment on above: Order Comment: DRAW AT 0630 PER RN YURI PT BEEN AWAKE ALL NIGHT- [id number] Performed By: #### P T, HS TROP, CBC #### [facility] [address] [place] [address] [place] dioxide, total [Moles /volume] in Serum or PlasmaOrdered By: Irwin Theodore on 02-26-2025 CO2 [Moles/Vol] Carbon dioxide, tota l [Moles/volume] in Serum or Plasma 21.0-31.0 [facility] CO2 [Moles/Vol] 25.4 mmol/L Normal 21.0-31.[address] [facility] Comment on above: Order Comment: DRAW AT 0630 PER RN YURI PT BEEN AWAKE ALL NIGHT- [id number] Performed By: #### P T, HS TROP, CBC #### [facility] [address] [place] [address] [place] Chloride [Moles/volume] in S timi or PlasmaOrdered By: Irwin Theodore on 02-26-2025 Chloride [Moles/Vol] Chloride [Moles/vol ume] in Serum or Plasma Low 98-107 [facility] Chloride [Moles/Vol] 92 mmol/L Low 98-107 [facility] Comment on above: Order Comment: DRAW AT 0630 PER RN YURI PT BEEN AWAKE ALL NIGHT- [id number] Performed By: #### P T, HS TROP, CBC #### [facility] [address] [place] [id number] [place] Cholesterol [Mass/volume] in Serum or PlasmaOrdered By: Irwin Theodore on 02-26-2025 Cholesterol [Mass/Vol] Cholesterol [Mass/volume] in Serum or Plasma Low 140-200 [facility] Comment on above: Chol less than 200 m g/dl low riskChol 201-239 mg/dl borderline riskChol 240 mg/dl and greater high risk Cholesterol [Mass/Vol] 128 mg/dL Low 140-200 [facility] Comment on above: Chol less than 200 m g/dl low riskChol 201-239 mg/dl borderline riskChol 240 mg/dl and greater high risk Order Comment: DRAW AT 0630 PER BRET WELCH PT BEEN AWAKE ALL NIGHT- [id number] Result Comment: Chol less than 200 mg/dl low risk Chol 201-239 mg/dl borderline risk Chol 240 mg/dl and greater high risk Performed By: #### P T, HS TROP, CBC #### [facility] [address] [place] [id number] [facility] Cholesterol in HDL [Mass/vol ume] in Serum or PlasmaOrdered By: Irwin Theodore on 02-26-2025 Cholesterol in HDL [Mass/Vol] Serum or plasma high density lipoprotein (HDL) cholesterol measurement [facility] Comment on above: HDL CHOL ATP-III CLA SSIFICATION Cardiovascular RiskHDL > or equal to 60 mg/dL LOWHDL < 40 mg/dL HIGH Cholesterol in HDL [Mass/Vol] 41 mg/dL Normal [facility] Comment on above: HDL CHOL ATP-III CLA SSIFICATION Cardiovascular RiskHDL > or equal to 60 mg/dL LOWHDL < 40 mg/dL HIGH Order Comment: DRAW AT 0630 PER BRET WELCH PT BEEN AWAKE ALL NIGHT- [id number] Result Comment: HDL CHOL ATP-III CLASSIFICATION Cardiovascular Risk HDL > or equal to 60 mg/dL LOW HDL < 40 mg/dL HIGH Performed By: #### P T, HS TROP, CBC #### [facility] [address] [place] [id number] [place] Cholesterol in LDL Calc [Mas s/Vol]Ordered By: Irwin Theodore on 02-26-2025 Cholesterol in LDL [Mass/Vol] Cholesterol in LDL [Mass/volume] in Serum or Plasma by calculation [facility] Comment on above: LDL ATP III CLASSIFI CATIONLDL less than 100 mg/dL OptimalLDL 100-129 mg/dL Near or above optimalLDL 130-159 mg/dL Borderline highLDL 160-189 mg/dL HighLDL greater than 189 mg/dL Very high Cholesterol in LDL [Mass/Vol] 62 mg/dL 0- [facility] Comment on above: LDL ATP III CLASSIFI CATIONLDL less than 100 mg/dL OptimalLDL 100-129 mg/dL Near or above optimalLDL 130-159 mg/dL Borderline highLDL 160-189 mg/dL HighLDL greater than 189 mg/dL Very high Cholesterol in VLDL Calc [Ma ss/Vol]Ordered By: Irwin Theodore on 02-26-2025 Cholesterol in VLDL [Mass/Vol] Cholesterol in VLDL [Mass/volume] in Serum or Plasma by calculation [facility] Cholesterol in VLDL [Mass/Vol] 25 mg/dL [facility] Creatinine [Mass/volume] in Serum or PlasmaOrdered By: Irwin Theodore on 02-26-2025 Creatinine [Mass/Vol] Creatinine [Mass/volume] in Serum or Plasma Significant change up 0.70-1.30 [facility] Comment on above: Delta: 7.00 on 02/25 Creatinine [Mass/Vol] 10.05 mg/dL Significan t change up 0.70-1.30 [facility] Comment on above: Delta: 7.00 on 02/25 Order Comment: DRAW AT 0630 PER BRET WELCH PT BEEN AWAKE ALL NIGHT- [id number] Performed By: #### P T, HS TROP, CBC #### [facility] [address] [place] [address] Glucose [Mass/volume] in Ser um or PlasmaOrdered By: Irwin Theodore on 02-26-2025 Glucose [Mass/Vol] Glucose [Mass/volume ] in Serum or Plasma 70-100 [facility] Comment on above: ADA recommended refe rence rangeRandom Glucose Reference Range is dependent on time and content of last meal. Glucose of more than 200 mg/dL in a nonstressed, ambulatory subject supports the diagnosis of Diabetes Mellitus. Glucose [Mass/Vol] 87 mg/dL Normal 70-100 [facility] Comment on above: ADA recommended refe rence rangeRandom Glucose Reference Range is dependent on time and content of last meal. Glucose of more than 200 mg/dL in a nonstressed, ambulatory subject supports the diagnosis of Diabetes Mellitus. Order Comment: DRAW AT 0630 PER BRET WELCH PT BEEN AWAKE ALL NIGHT- [id number] Result Comment: [place] Glucose Reference Range is dependent on time and content of last meal. Glucose of more than 200 mg/dL in a nonstressed, ambulatory subject supports the diagnosis of Diabetes Mellitus. ADA recommended reference range Performed By: #### P T, HS TROP, CBC #### [facility] [address] Hemoglobin A1c/Hemoglobin.to coleman in BloodOrdered By: Irwin Theodore on 02-26-2025 HbA1c (Bld) [Mass fraction] Hemoglobin A1c percentage 4.3-5.6 [facility] Comment on above: Increased risk for d iabetes: 5.7 - 6.4diabetes: >6.4glycemic control for adults with diabetes: <7.0 HbA1c (Bld) [Mass fraction] 4.9 % Normal 4.3-5.6 [facility] Comment on above: Increased risk for d iabetes: 5.7 - 6.4diabetes: >6.4glycemic control for adults with diabetes: <7.0 Order Comment: DRAW AT 0630 PER RN YURI PT BEEN AWAKE ALL NIGHT- [id number] Result Comment: Incr eased risk for diabetes: 5.7 - 6.4 diabetes: >6.4 glycemic control for adults with diabetes: <7.0 Performed By: #### P T, HS TROP, CBC #### [facility] [address] Lipid Panelon 02-26-2025 LDL Cholesterol,Calculated 62 mg/dL Normal 0-100 [facility] Comment on above: Order Comment: DRAW AT 0630 PER RN YURI PT BEEN AWAKE ALL NIGHT- [id number] Result Comment: LDL ATP III CLASSIFICATION LDL less than 100 mg/dL Optimal LDL 100-129 mg/dL Near or above optimal LDL 130-159 mg/dL Borderline high LDL 160-189 mg/dL High LDL greater than 189 mg/dL Very high Performed By: #### P T, HS TROP, CBC #### [facility] [address] [place] [id number] [facility] Triglyceride w/Reflex 127 mg/dL Normal 0-149 [facility] Comment on above: Order Comment: DRAW AT 0630 PER RN YURI PT BEEN AWAKE ALL NIGHT- [id number] Result Comment: TRIG ATP III CLASSIFICATION TRIG less than 150 mg/dL Normal TRIG 150-199 mg/dL Borderline high TRIG 200-500 mg/dL High TRIG greater than 500 mg/dL Very high Standard traceable to the Center for Disease Conrtrol and Prevention (CDC) test method. Performed By: #### P T, HS TROP, CBC #### [facility] [address] VLDL CHOLESTEROL 25 mg/dL Normal [facility] Comment on above: Order Comment: DRAW AT 0630 PER RN YURI PT BEEN AWAKE ALL NIGHT- [id number] Performed By: #### P T, HS TROP, CBC #### [facility] [address] No Panel InformationOrdered By: Irwin Theodore on 02-26-2025 Estimated GFR (CKD-EPI) 5.540 mL/Min [facility] Creatinine Clearance (Chem 8.74 [facility] Potassium [Moles/volume] in Serum or PlasmaOrdered By: Irwin Theodore on 02-26-2025 Potassium [Moles/Vol] Potassium [Moles/volume] in Serum or Plasma 3.5-5.1 [facility] Potassium [Moles/Vol] 4.9 mmol/L Normal 3.5-5.1 [facility] Comment on above: Order Comment: DRAW AT 0630 PER RN YURI PT BEEN AWAKE ALL NIGHT- [id number] Performed By: #### P T, HS TROP, CBC #### [facility] [address] Serum or plasma anion gap de terminationOrdered By: Irwin Theodore on 02-26-2025 Anion gap [Moles/Vol] Serum or plasma an ion gap determination High 6.0-15.0 [facility] Anion gap [Moles/Vol] 19.5 mmol/L High 6.0-15.0 [facility] Comment on above: Order Comment: DRAW AT 0630 PER RN YURI PT BEEN AWAKE ALL NIGHT- [id number] Performed By: #### P T, HS TROP, CBC #### [facility] [address] [place] [address] [place] Serum or plasma total choles terol/high density lipoprotein (HDL) cholesterol mass ratOrdered By: Irwin Theodore on 02-26-2025 Cholesterol.total/Chol esterol in HDL [Mass ratio] Serum or plasma total cholesterol/high density lipoprotein (HDL) cholesterol mass rat <5.0 [facility] Cholesterol.total/Chol esterol in HDL [Mass ratio] 3.1 {ratio} Normal <5.0 [facility] Comment on above: Order Comment: DRAW AT 0630 PER RN YURI PT BEEN AWAKE ALL NIGHT- [id number] Performed By: #### P T, HS TROP, CBC #### [facility] [address] [place] [address] [place] Sodium [Moles/volume] in Ser um or PlasmaOrdered By: Irwin Theodore on 02-26-2025 Sodium [Moles/Vol] Sodium [Moles/volume ] in Serum or Plasma Low 136-145 [facility] Sodium [Moles/Vol] 132 mmol/L Low 136-145 [facility] Comment on above: Order Comment: DRAW AT 0630 PER RN YURI PT BEEN AWAKE ALL NIGHT- [id number] Performed By: #### P T, HS TROP, CBC #### [facility] [address] [place] [address] [place] Thyrotropin [Units/volume] i n Serum or PlasmaOrdered By: Irwin Theodore on 02-26-2025 TSH Qn Thyrotropin [Units/volume] in Serum or Plasma 0.45-5.33 [facility] TSH Qn 2.21 m[IU]/L Normal 0.45-5.33 [facility] Comment on above: Order Comment: DRAW AT 0630 PER RN YURI PT BEEN AWAKE ALL NIGHT- [id number] Result Comment: PERF ORMED BY: [place] [address] PATHOLOGIST MOP MACHINE OPERATOR SAJAN MAGANA M.D. Performed By: #### P T, HS TROP, CBC #### [facility] [address] [place] [address] [place] Triglyceride [Mass/volume] i n Serum or PlasmaOrdered By: Irwin Theodore on 02-26-2025 Triglyceride [Mass/Vol] Triglyceride [Mass/volume] in Serum or Plasma 0-149 [facility] Comment on above: TRIG ATP III CLASSIF ICATIONTRIG less than 150 mg/dL NormalTRIG 150-199 mg/dL Borderline highTRIG 200-500 mg/dL High TRIG greater than 500 mg/dL Very highStandard traceable to the Center for Disease Conrtrol and Prevention (CDC) test method. Triglyceride [Mass/Vol] 127 mg/dL 0-149 [facility] Comment on above: TRIG ATP III CLASSIF ICATIONTRIG less than 150 mg/dL NormalTRIG 150-199 mg/dL Borderline highTRIG 200-500 mg/dL High TRIG greater than 500 mg/dL Very highStandard traceable to the Center for Disease Conrtrol and Prevention (CDC) test method. Urea nitrogen [Mass/volume] in Serum or PlasmaOrdered By: Irwin Theodore on 02-26-2025 Urea nitrogen [Mass/Vol] Urea nitrogen [Mass/volume] in Serum or Plasma High 05-08 [facility] Urea nitrogen [Mass/Vol] 54 mg/dL High 05-08 [facility] Comment on above: Order Comment: DRAW AT 0630 PER BRET WELCH PT BEEN AWAKE ALL NIGHT- [id number] Performed By: #### P T, HS TROP, CBC #### [facility] [address] Alanine aminotransferase [En zymatic activity/volume] in Serum or PlasmaOrdered By: Irwin Theodore on 02-25-2025 ALT [Catalytic activity/Vol] Alanine aminotransferase [Enzymatic activity/volume] in Serum or Plasma [facility] ALT [Catalytic activity/Vol] 11 U/L Normal [facility] Comment on above: Performed By: #### P T, HS TROP, CBC #### [facility] [address] [place] [address] [place] Albumin [Mass/volume] in Ser um or Plasma by Bromocresol green (BCG) dye binding methoOrdered By: Irwin Theodore on 02-25-2025 Albumin BCG dye [Mass/Vol] Albumin [Mass/volume] in Serum or Plasma by Bromocresol green (BCG) dye binding metho 3.5-5.7 [facility] Albumin BCG dye [Mass/Vol] 3.7 g/dL 3.5-5.7 [facility] Alkaline phosphatase [Enzyma tic activity/volume] in Serum or PlasmaOrdered By: Irwin Theodore on 02-25-2025 ALP [Catalytic activity/Vol] Alkaline phosphatase [Enzymatic activity/volume] in Serum or Plasma 34-104 [facility] ALP [Catalytic activity/Vol] 84 U/L Normal 34-104 [facility] Comment on above: Performed By: #### P T, HS TROP, CBC #### [address] Arterial Blood Gason 025 ABG Base Excess 2.2 mmol/L Normal -3.0-3.0 [facility] Comment on above: Performed By: #### P T, HS TROP, CBC #### [address] ABG Frac Inspired O2 30 % Normal [facility] Comment on above: Performed By: #### P T, HS TROP, CBC #### [address] ABG Oxygen Content 5.9 mmol/L Low 6.6-9.7 [facility] Comment on above: Performed By: #### P T, HS TROP, CBC #### [address] ABG Oxygen Saturation 93.4 % Low 95.0-100.0 [facility] Comment on above: Performed By: #### P T, HS TROP, CBC #### [address] ABG PCO2 45.9 mm[Hg] High 35.0-45.0 [facility] Comment on above: Performed By: #### P T, HS TROP, CBC #### [address] ABG PEEP 5 cmH20 Normal [facility] Comment on above: Performed By: #### P T, HS TROP, CBC #### [address] ABG PH 7.40 Normal 7.35-7.45 [facility] Comment on above: Performed By: #### P T, HS TROP, CBC #### [address] ABG PO2 72.2 mm[Hg] Low 80.0-100.0 [facility] Comment on above: Performed By: #### P T, HS TROP, CBC #### [address] ABG TV 500 mL Normal [facility] Comment on above: Performed By: #### P T, HS TROP, CBC #### [address] Respiratory Critical Normal [facility] Comment on above: Result Comment: Crit ical Value called on: 02/25/2025 at 04:44 PERFORMED BY: [place] [address] PATHOLOGIST MOP MACHINE OPERATOR SAJAN MAGANA M.D. Performed By: #### P T, HS TROP, CBC #### [address] Set Respiratory Rate 14 Normal [facility] Comment on above: Performed By: #### P T, HS TROP, CBC #### [address] VBG Draw Site Right Brachial Normal [facility] Comment on above: Performed By: #### P T, HS TROP, CBC #### [address] Ventilator Mode AC Normal [facility] Comment on above: Performed By: #### P T, HS TROP, CBC #### [address] Arterial Blood GasOrdered By : Irwin Theodore on 02-25-2025 CO2 [Moles/Vol] 28.9 mmol/L High 23.0-27.[address] [facility] Comment on above: Performed By: #### P T, HS TROP, CBC #### [facility] [address] [place] [address] [place] HCO3 (Bld) [Moles/Vol] 27.5 mmol/L Normal 23.0-29.0 [facility] Comment on above: Performed By: #### P T, HS TROP, CBC #### [facility] [address] [place] [address] [place] Aspartate aminotransferase [ Enzymatic activity/volume] in Serum or PlasmaOrdered By: Irwin Theodore on 02-25-2025 AST [Catalytic activity/Vol] Aspartate aminotransferase [Enzymatic activity/volume] in Serum or Plasma [facility] AST [Catalytic activity/Vol] 13 U/L Normal [facility] Comment on above: Performed By: #### P T, HS TROP, CBC #### [facility] [address] [place] [address] [place] Basophils Auto (Bld) [#/Vol] Ordered By: Irwin Theodore on 02-25-2025 Basophils (Bld) [#/Vol] Automated basophil count 0.0-0.2 [facility] Basophils [#/volume] in Bloo d by Automated countOrdered By: Irwin Theodore on 02-25-2025 Basophils (Bld) [#/Vol] 0.2 10*3/uL Normal 0.0-0.2 [facility] Comment on above: Result Comment: PERF ORMED BY: [place] [address] PATHOLOGIST MOP MACHINE OPERATOR SAJAN MAGANA M.D. Performed By: #### P T, HS TROP, CBC #### [facility] [address] [place] [address] [place] Basophils/100 WBC Auto (Bld) Ordered By: Irwin Theodore on 02-25-2025 Basophils/100 WBC (Bld) Automated basophil % . [facility] Basophils/100 leukocytes in Blood by Automated countOrdered By: Irwin Theodore on 02-25-2025 Basophils/100 WBC (Bld) 2.3 % Normal . [facility] Comment on above: Performed By: #### P T, HS TROP, CBC #### [address] Bilirubin.total [Mass/volume ] in Serum or PlasmaOrdered By: Irwin Theodore on 02-25-2025 Bilirubin [Mass/Vol] Bilirubin.total [Mass/volume] in Serum or Plasma 0.3-1.0 [facility] Bilirubin [Mass/Vol] 0.4 mg/dL Normal 0.3-1.0 [facility] Comment on above: Performed By: #### P T, HS TROP, CBC #### [address] Capillary blood glucose cande urement by glucometer (mass/volume)Ordered By: Irwin Theodore on 02-25-2025 Glucose [Mass/Vol] 118 mg/dL Normal [facility] Comment on above: Random Glucose Refer ence Range is dependent on time and content of last meal. Glucose of more than 200 mg/dL in a nonstressed, ambulatory subject supports the diagnosis of Diabetes Mellitus. Result Comment: [place] Glucose Reference Range is dependent on time and content of last meal. Glucose of more than 200 mg/dL in a nonstressed, ambulatory subject supports the diagnosis of Diabetes Mellitus. PERFORMED BY: [place] [address] PATHOLOGIST MOP MACHINE OPERATOR SAJAN MAGANA M.D. Performed By: #### G LULS #### Point of Care testing , Complete Blood Count Auto Di ffon 02-25-2025 Mean Corpuscular HGB Conc 32.5 g/dL Normal 32.5-35.6 [facility] Comment on above: Performed By: #### P T, HS TROP, CBC #### [address] NRBC% 0.0 /100{WBC} Normal 0-0.5 [facility] Comment on above: Performed By: #### P T, HS TROP, CBC #### [address] Comprehensive Metabolic Pane fletcher 02-25-2025 Albumin [Mass/Vol] 3.7 g/dL Normal 3.5-5.7 [facility] Comment on above: Performed By: #### P T, HS TROP, CBC #### [address] Anion gap [Moles/Vol] 18.2 mmol/L High 6.0-15.0 [facility] Comment on above: Performed By: #### P T, HS TROP, CBC #### [address] Calcium [Mass/Vol] 9.1 mg/dL Normal 8.6-10.3 [facility] Comment on above: Performed By: #### P T, HS TROP, CBC #### [address] Chloride [Moles/Vol] 95 mmol/L Low 98-107 [facility] Comment on above: Performed By: #### P T, HS TROP, CBC #### [address] CO2 [Moles/Vol] 26.5 mmol/L Normal 21.0-31.0 [facility] Comment on above: Performed By: #### P T, HS TROP, CBC #### [address] Creatinine [Mass/Vol] 7.00 mg/dL High 0.70-1.30 [facility] Comment on above: Performed By: #### P T, HS TROP, CBC #### [address] Creatinine Clr Calc Pharmacy 12.55 Normal [facility] Comment on above: Performed By: #### P T, HS TROP, CBC #### [address] Estimated GFR 8.550 mL/Min Normal [facility] Comment on above: Performed By: #### P T, HS TROP, CBC #### [address] Glucose [Mass/Vol] 74 mg/dL Normal 70-100 [facility] Comment on above: Result Comment: [place] Glucose Reference Range is dependent on time and content of last meal. Glucose of more than 200 mg/dL in a nonstressed, ambulatory subject supports the diagnosis of Diabetes Mellitus. ADA recommended reference range Performed By: #### P T, HS TROP, CBC #### [facility] [address] Potassium [Moles/Vol] 4.7 mmol/L Normal 3.5-5.1 [facility] Comment on above: Performed By: #### P T, HS TROP, CBC #### [facility] [address] Sodium [Moles/Vol] 135 mmol/L Low 136-145 [facility] Comment on above: Performed By: #### P T, HS TROP, CBC #### [address] Urea nitrogen [Mass/Vol] 29 mg/dL High 7-25 [facility] Comment on above: Performed By: #### P T, HS TROP, CBC #### [place] [address] [place] Eosinophils Auto (Bld) [#/Vo l]Ordered By: Irwin Theodore on 02-25-2025 Eosinophils (Bld) [#/Vol] Automated eosinophil count 0.0-0.45 [facility] Eosinophils [#/volume] in Bl ood by Automated countOrdered By: Irwin Theodore on 02-25-2025 Eosinophils (Bld) [#/Vol] 0.2 10*3/uL Normal 0.0-0.45 [facility] Comment on above: Performed By: #### P T, HS TROP, CBC #### [place] [address] [place] Eosinophils/100 WBC Auto (Bl d)Ordered By: Irwin Theodore on 02-25-2025 Eosinophils/100 WBC (Bld) Automated eosinophil % . [facility] Eosinophils/100 leukocytes i n Blood by Automated countOrdered By: Irwin Theodore on 02-25-2025 Eosinophils/100 WBC (Bld) 2.5 % Normal . [facility] Comment on above: Performed By: #### P T, HS TROP, CBC #### [facility] [address] Erythrocyte distribution wid th Auto (RBC) [Ratio]Ordered By: Irwin Theodore on 02-25-2025 Erythrocyte distribution width (RBC) [Ratio] Erythrocyte distribution width [Ratio] by Automated count High 12.0-14.8 [facility] Erythrocyte distribution wid th [Ratio] by Automated countOrdered By: Irwin Theodore on 02-25-2025 Erythrocyte distribution width (RBC) [Ratio] 16.8 % High 12.0-14.8 [facility] Comment on above: Performed By: #### P T, HS TROP, CBC #### [facility] [address] [place] [address] Erythrocytes [#/volume] in B lood by Automated countOrdered By: Irwin Theodore on 02-25-2025 RBC (Bld) [#/Vol] 3.42 10*6/uL Low 3.90-5.[address] [facility] Comment on above: Performed By: #### P T, HS TROP, CBC #### [facility] [address] [place] [address] Globulin Calc (S) [Mass/Vol] Ordered By: Irwin Theodore on 02-25-2025 Globulin (S) [Mass/Vol] Serum globulin measurement by calculation (mass/volume) [facility] Glucose Glucometer (BldC) [M ass/Vol]Ordered By: Irwin Theodore on 02-25-2025 Glucose [Mass/Vol] Capillary blood gluc ose measurement by glucometer (mass/volume) [facility] Comment on above: Random Glucose Refer ence Range is dependent on time and content of last meal. Glucose of more than 200 mg/dL in a nonstressed, ambulatory subject supports the diagnosis of Diabetes Mellitus. Hematocrit Auto (Bld) [Volum e fraction]Ordered By: Irwin Theodore on 02-25-2025 Hematocrit (Bld) [Volume fraction] Hematocrit [Volume Fraction] of Blood by Automated count Low 38.8-50.0 [facility] Hematocrit [Volume Fraction] of Blood by Automated countOrdered By: Iwrin Theodore on 02-25-2025 Hematocrit (Bld) [Volume fraction] 29.9 % Low 38.8-50.0 [facility] Comment on above: Performed By: #### P T, HS TROP, CBC #### [facility] [address] Hemoglobin [Mass/volume] in BloodOrdered By: Irwin Theodore on 02-25-2025 Hemoglobin (Bld) [Mass/Vol] Hemoglobin [Mass/volume] in Blood Low 13.0-17.0 [facility] Hemoglobin (Bld) [Mass/Vol] 9.7 g/dL Low 13.0-17.0 [facility] Comment on above: Performed By: #### P T, HS TROP, CBC #### [facility] [address] INR in Platelet poor plasma by Coagulation assayOrdered By: Irwin Theodore on 02-25-2025 INR Coag (PPP) [Relative time] INR in Platelet poor plasma by Coagulation assay [facility] Comment on above: INR Therapeutic Rang e A) Pre- and Peroperative OAT started two weeks before surgery. NOT HIP SURGERY: 1.5 - 2.5 HIP SURGERY: 2 - 3B) Primary and secondary prevention of venous THROMBOSIS: 2 - 3C) Active venous thrombosis, pulmonary embolismand prevention of recurrent venous thrombosis: 2 - 3D) Prevention of arterial thromboembolismincluding patients with mechanical heart valves: 3 - 4.5 INR Coag (PPP) [Relative time] 1.0 {INR} Normal [facility] Comment on above: INR Therapeutic Rang e A) Pre- and Peroperative OAT started two weeks before surgery. NOT HIP SURGERY: 1.5 - 2.5 HIP SURGERY: 2 - 3B) Primary and secondary prevention of venous THROMBOSIS: 2 - 3C) Active venous thrombosis, pulmonary embolismand prevention of recurrent venous thrombosis: 2 - 3D) Prevention of arterial thromboembolismincluding patients with mechanical heart valves: 3 - 4.5 Result Comment: INR Therapeutic Range A) Pre- [...] heart valves: 3 - 4.5 PERFORMED BY: [place] [address] PATHOLOGIST MOP MACHINE OPERATOR SAJAN MAGANA M.D. Performed By: #### P T, HS TROP, CBC #### [facility] [address] [place] [address] Leukocytes [#/volume] correc bernardo for nucleated erythrocytes in Blood by Automated counOrdered By: Irwin Theodore on 02-25-2025 WBC corrected for nucl RBC Auto (Bld) [#/Vol] Leukocytes [#/volume] corrected for nucleated erythrocytes in Blood by Automated coun 4.1-10.5 [facility] WBC corrected for nucl RBC Auto (Bld) [#/Vol] 7.7 10*3/uL 4.1-10.5 [facility] Leukocytes [#/volume] in Blo od by Automated countOrdered By: Irwin Theodore on 02-25-2025 WBC (Bld) [#/Vol] 7.7 10*3/uL Normal 4.1-10.5 [facility] Comment on above: Performed By: #### P T, HS TROP, CBC #### [facility] [address] [place] [address] Lymphocytes Auto (Bld) [#/Vo l]Ordered By: Irwin Theodore on 02-25-2025 Lymphocytes (Bld) [#/Vol] Lymphocytes [#/volume] in Blood by Automated count Low 1.00-4.8 [facility] Lymphocytes [#/volume] in Bl ood by Automated countOrdered By: Irwin Theodore on 02-25-2025 Lymphocytes (Bld) [#/Vol] 0.7 10*3/uL Low 1.00-4.8 [facility] Comment on above: Performed By: #### P T, HS TROP, CBC #### [facility] [address] Lymphocytes/100 WBC Auto (Bl d)Ordered By: Irwin Theodore on 02-25-2025 Lymphocytes/100 WBC (Bld) Lymphocytes/100 leukocytes in Blood by Automated count . [facility] Lymphocytes/100 leukocytes i n Blood by Automated countOrdered By: Irwin Theodore on 02-25-2025 Lymphocytes/100 WBC (Bld) 9.6 % Normal . [facility] Comment on above: Performed By: #### P T, HS TROP, CBC #### [facility] [address] [place] [address] MCH Auto (RBC) [Entitic mass ]Ordered By: Irwin Theodore on 02-25-2025 MCH (RBC) [Entitic mass] MCH [Entitic mass] by Automated count 27.5-35.2 [facility] MCH [Entitic mass] by Automa bernardo countOrdered By: Irwin Theodore on 02-25-2025 MCH (RBC) [Entitic mass] 28.4 pg Normal 27.5-35.2 [facility] Comment on above: Performed By: #### P T, HS TROP, CBC #### [facility] [address] [place] [address] MCHC Auto (RBC) [Mass/Vol]Or dered By: Irwin Theodore on 02-25-2025 MCHC (RBC) [Mass/Vol] MCHC [Mass/volume] by Automated count 32.5-35.6 [facility] MCHC (RBC) [Mass/Vol] 32.5 g/dL 32.5-35.6 [facility] MCV Auto (RBC) [Entitic vol] Ordered By: Irwin Theodore on 02-25-2025 MCV (RBC) [Entitic vol] MCV [Entitic volume] by Automated count 83.5-101 [facility] MCV [Entitic volume] by Auto mated countOrdered By: Irwin Theodore on 02-25-2025 MCV (RBC) [Entitic vol] 87.3 fL Normal 83.5-101 [facility] Comment on above: Performed By: #### P T, HS TROP, CBC #### [facility] [address] Magnesium [Mass/volume] in S timi or PlasmaOrdered By: Daniel House on 02-25-2025 Magnesium [Mass/Vol] Magnesium [Mass/vol ume] in Serum or Plasma 1.9-2.7 [facility] Magnesium [Mass/Vol] 2.0 mg/dL Normal 1.9-2.7 [facility] Comment on above: Performed By: #### P T, HS TROP, CBC #### [facility] [address] Monocytes Auto (Bld) [#/Vol] Ordered By: Irwin Theodore on 02-25-2025 Monocytes (Bld) [#/Vol] Automated blood monocyte count 0.0-0.8 [facility] Monocytes [#/volume] in Bloo d by Automated countOrdered By: Irwin Theodore on 02-25-2025 Monocytes (Bld) [#/Vol] 0.6 10*3/uL Normal 0.0-0.8 [facility] Comment on above: Performed By: #### P T, HS TROP, CBC #### [facility] [address] [place] [address] [place] Monocytes/100 WBC Auto (Bld) Ordered By: Irwin Theodore on 02-25-2025 Monocytes/100 WBC (Bld) Automated monocyte % . [facility] Monocytes/100 leukocytes in Blood by Automated countOrdered By: Irwin Theodore on 02-25-2025 Monocytes/100 WBC (Bld) 8.4 % Normal . [facility] Comment on above: Performed By: #### P T, HS TROP, CBC #### [facility] [address] [place] [address] [place] Neutrophils Auto (Bld) [#/Vo l]Ordered By: Irwin Theodore on 02-25-2025 Neutrophils (Bld) [#/Vol] Neutrophils [#/volume] in Blood by Automated count 1.8-7.7 [facility] Neutrophils [#/volume] in Bl ood by Automated countOrdered By: Irwin Theodore on 02-25-2025 Neutrophils (Bld) [#/Vol] 5.9 10*3/uL Normal 1.8-7.7 [facility] Comment on above: Performed By: #### P T, HS TROP, CBC #### [facility] [address] Neutrophils/100 WBC Auto (Bl d)Ordered By: Irwin Theodore on 02-25-2025 Neutrophils/100 WBC (Bld) Automated neutrophil % . [facility] Neutrophils/100 leukocytes i n Blood by Automated countOrdered By: Irwin Theodore on 02-25-2025 Neutrophils/100 WBC (Bld) 77.2 % Normal . [facility] Comment on above: Performed By: #### P T, HS TROP, CBC #### [facility] [address] No Panel InformationOrdered By: Irwin Theodore on 02-25-2025 Arterial Blood Base Excess 2.2 mmol/L -3.0-3.0 [facility] Arterial Blood Oxygen Content 5.9 mmol/L Low 6.6-9.7 [facility] Arterial Blood Oxygen Saturation 93.4 % Low 95.0-100.0 [facility] Arterial Blood Partial Pressure CO2 45.9 mm[Hg] High 35.0-45.0 [facility] Arterial Blood Partial Pressure O2 72.2 mm[Hg] Low 80.0-100.0 [facility] Arterial Blood pH 7.40 7.35-7.45 [facility] Blood Gas Critical Value See comment [facility] Comment on above: Critical Value corrales d on: 02/25/2025 at 04:44 Blood Gas PEEP 5 cmH2O [facility] Blood Gas Sample Site Right brachial [facility] Blood Gas Set Respiration Rate 14 [facility] Blood Gas Tidal Volume 500 mL Fi [facility] Blood Gas Ventilator Mode Ac [facility] FiO2 30 % [facility] Nucleated erythrocytes [Pres ence] in Blood by Automated countOrdered By: Irwin Theodore on 02-25-2025 Nucleated RBC Auto Ql (Bld) Nucleated erythrocytes [Presence] in Blood by Automated count 0-0.5 [facility] Nucleated RBC Auto Ql (Bld) 0.0 /100{WBC} 0-0.5 [facility] Phosphate [Mass/volume] in S timi or PlasmaOrdered By: Daniel House on 02-25-2025 Phosphate [Mass/Vol] Phosphate [Mass/vol ume] in Serum or Plasma High 2.5-4.5 [facility] Phosphate [Mass/Vol] 5.6 mg/dL High 2.5-4.5 [facility] Comment on above: Performed By: #### P T, HS TROP, CBC #### [facility] [address] Platelet mean volume Auto (B ld) [Entitic vol]Ordered By: Irwin Theodore on 02-25-2025 Platelet mean volume (Bld) [Entitic vol] Platelet mean volume [Entitic volume] in Blood by Automated count 6.6-10.1 [facility] Platelet mean volume [Entiti c volume] in Blood by Automated countOrdered By: Irwin Theodore on 02-25-2025 Platelet mean volume (Bld) [Entitic vol] 7.3 fL Normal 6.6-10.1 [facility] Comment on above: Performed By: #### P T, HS TROP, CBC #### [facility] [address] [place] [address] [place] Platelets Auto (Bld) [#/Vol] Ordered By: Irwin Theodore on 02-25-2025 Platelets (Bld) [#/Vol] Platelets [#/volume] in Blood by Automated count 150-450 [facility] Platelets [#/volume] in Bloo d by Automated countOrdered By: Irwin Theodore on 02-25-2025 Platelets (Bld) [#/Vol] 326 10*3/uL Normal 150-450 [facility] Comment on above: Performed By: #### P T, HS TROP, CBC #### [facility] [address] [place] [address] [place] Protein [Mass/volume] in Ser um or PlasmaOrdered By: Irwin Theodore on 02-25-2025 Protein [Mass/Vol] Protein [Mass/volume ] in Serum or Plasma Low 6.4-8.9 [facility] Protein [Mass/Vol] 5.9 g/dL Low 6.4-8.9 [facility] Comment on above: Performed By: #### P T, HS TROP, CBC #### [facility] [address] Prothrombin time (PT)Ordered By: Irwin Theodore on 02-25-2025 PT Coag (PPP) [Time] Prothrombin time (PT) 9.0- 12.9 [facility] Comment on above: A hematocrit value g reater than 55% may lead to inaccurate results in coagulation testing. Patients having hematocrit values >55% require a special collection tube for coagulation studies. Please contact the laboratory at [phone] for redraw instructions. PT Coag (PPP) [Time] 11.2 s Normal 9.0-12.9 [facility] Comment on above: A hematocrit value g reater than 55% may lead to inaccurate results in coagulation testing. Patients having hematocrit values >55% require a special collection tube for coagulation studies. Please contact the laboratory at [phone] for redraw instructions. Result Comment: A he matocrit value greater than 55% may lead to inaccurate results in coagulation testing. Patients having hematocrit values >55% require a special collection tube for coagulation studies. Please contact the laboratory at [phone] for redraw instructions. Performed By: #### P T, HS TROP, CBC #### [facility] [address] [place] [address] RBC Auto (Bld) [#/Vol]Ordere d By: Irwin Theodore on 02-25-2025 RBC (Bld) [#/Vol] Erythrocytes [#/volu me] in Blood by Automated count Low 3.90-5.60 [facility] Serum globulin measurement b y calculation (mass/volume)Ordered By: Irwin Theodore on 02-25-2025 Globulin (S) [Mass/Vol] 2.2 g/dL Normal [facility] Comment on above: Performed By: #### P T, HS TROP, CBC #### [facility] [address] Serum or plasma albumin/glob ulin mass ratioOrdered By: Irwin Theodore on 02-25-2025 Albumin/Globulin [Mass ratio] Serum or plasma albumin/globulin mass ratio [facility] Albumin/Globulin [Mass ratio] 1.7 {ratio} Normal [facility] Comment on above: Performed By: #### P T, HS TROP, CBC #### [facility] [address] [place] [address] Troponin I High Sensitivityo n 02-25-2025 Troponin I High Sensitivity 64 Off scale high 0-20 [facility] Comment on above: Result Comment: Crit ical Result : Called to and read back by: ANOOP HULL at: 02/25/2025 05:03:51 by:ANTHONY The Troponin units of report have been changed to meet the Chest Pain Accreditation requirement, element EC5.M1l2. Troponin units are changed from pg/ml to ng/L. Also, the decimal is removed and results are in whole numbers. PERFORMED BY: [place] [address] PATHOLOGIST MOP MACHINE OPERATOR SAJAN MAGANA M.D. Performed By: #### P T, HS TROP, CBC #### [facility] [address] [place] [address] Troponin I.cardiac [Mass/vol ume] in Serum or Plasma by Detection limit <= 0.01 ng/Ordered By: Irwin Theodore on 02-25-2025 Troponin I.cardiac DL <= 0.01 ng/mL [Mass/Vol] Troponin I.cardiac [Mass/volume] in Serum or Plasma by Detection limit <= 0.01 ng/ Critically high 0-20 [facility] Comment on above: Critical Result : Ca lled to and read back by: ANOOP HULL at: 02/25/2025 05:03:51 by:[email or web address] Troponin units of report have been changed to meet the Chest Pain Accreditation requirement, element EC5.M1l2. Troponin units are changed from pg/ml to ng/L. Also, the decimal is removed and results are in whole numbers. Troponin I.cardiac [Mass/vol ume] in Serum or Plasma by Detection limit <= 0.01 ng/mLOrdered By: Irwin Theodore on 02-25-2025 Troponin I.cardiac DL <= 0.01 ng/mL [Mass/Vol] 64 ng/L Critically high 0-20 [facility] Comment on above: Critical Result : Ca [...] [Mass/volume] in Serum or Plasma Low 4.4-7.6 [facility] Urate [Mass/Vol] 3.5 mg/dL Low 4.4-7.[address] [facility] Comment on above: Result Comment: PERF ORMED BY: [place] [address] PATHOLOGIST MOP MACHINE OPERATOR SAJAN MAGANA M.D. Performed By: #### P T, HS TROP, CBC #### [place] [address] [place] WBC Auto (Bld) [#/Vol]Ordere d By: Irwin Theodore on 02-25-2025 WBC (Bld) [#/Vol] Leukocytes [#/volume ] in Blood by Automated count 4.1-10.5 [facility] X-ray reportOrdered By: Jarett Hendrix on 02-25-2025 Study report [facility] [place] [address] XRay Report Signed Patient: Leander Decker MR#: [id number] : 1970 Acct:[id number] Age/Sex: 54 / M ADM Date: 5 Loc: 4C Room: 6E3734-7 Type: ADM IN Attending Dr: Irwin Theodore [...] CHANGE IN CHEST FINDINGS. Impression dictated by: Fariba Kilpatrick Jr..OEva 02/25/2025 9:14 AM Dictation Location: [place] [address] Transcribed By: [facility] 02/25/25913 Dictated By: Vj Hendrix Jr, DO 02/25/2513 Signed By: 02/25/2514 [facility] XR chest 1V portableon 02-25 XR chest 1V portable [facility] [place] [address] XRay Report Signed Patient: Leander Decker MR#: [id number] 2 : 1970 Acct:[id number] Age/Sex: 54 / M ADM Date: 02/24/25 Loc: Room: [address] [place] [address] Type: ADM IN Attending Dr: Irwin Theodore [...] CHEST FINDINGS. Impression dictated by: Vj Hendrix Jr. D.O. 02/25/2025 9:14 AM Dictation Location: [place] [address] Transcribed By: [facility] 02/25/25913 Dictated By: Vj Hendrix Jr, DO 02/25/25912 Signed By: 02/25/25913 Normal [facility] Arterial Blood Gason 025 ABG Base Excess 3.4 mmol/L High -3.0-3.0 [facility] Comment on above: Performed By: #### P T, HS TROP, CBC #### [address] ABG Frac Inspired O2 30 % Normal [facility] Comment on above: Performed By: #### P T, HS TROP, CBC #### [address] ABG Oxygen Content 6.2 mmol/L Low 6.6-9.7 [facility] Comment on above: Performed By: #### P T, HS TROP, CBC #### [address] ABG Oxygen Saturation 97.4 % Normal 95.0-100.0 [facility] Comment on above: Performed By: #### P T, HS TROP, CBC #### [address] ABG PCO2 35.0 mm[Hg] Normal 35.0-45.0 [facility] Comment on above: Performed By: #### P T, HS TROP, CBC #### [address] ABG PEEP 5 cmH20 Normal [facility] Comment on above: Performed By: #### P T, HS TROP, CBC #### [address] ABG PH 7.50 High 7.35-7.45 [facility] Comment on above: Performed By: #### P T, HS TROP, CBC #### [address] ABG PO2 99.8 mm[Hg] Normal 80.0-100.0 [facility] Comment on above: Performed By: #### P T, HS TROP, CBC #### [address] ABG TV 500 mL Normal [facility] Comment on above: Performed By: #### P T, HS TROP, CBC #### [address] CO2 [Moles/Vol] 27.7 mmol/L High 23.0-27.0 [facility] Comment on above: Performed By: #### P T, HS TROP, CBC #### [address] HCO3 (Bld) [Moles/Vol] 26.6 mmol/L Normal 23.0-29.0 [facility] Comment on above: Performed By: #### P T, HS TROP, CBC #### [address] Respiratory Critical Normal [facility] Comment on above: Result Comment: Crit ical Value called on: 02/24/2025 at 17:10 PERFORMED BY: [place] [address] PATHOLOGIST MOP MACHINE OPERATOR SAJAN MAGANA M.D. Performed By: #### P T, HS TROP, CBC #### [address] Set Respiratory Rate 20 Normal [facility] Comment on above: Performed By: #### P T, HS TROP, CBC #### [address] VBG Draw Site Right Brachial Normal [facility] Comment on above: Performed By: #### P T, HS TROP, CBC #### [address] Ventilator Mode AC Normal [facility] Comment on above: Performed By: #### P T, HS TROP, CBC #### [address] ECG 12 lead ECGon 02-24-2025 ECG 12 lead ECG [facility] Main [address] [address] Electrocardiograph Report Signed Patient: Leander Decker MR#: [id number] 2 : 1970 Acct:[id number] Age/Sex: 54 / M ADM Date: 02/24/25 Loc: Room: [address] [place] [address] Type: DIS IN Attending Dr: Irwin Theodore [...] change was found Confirmed by BINA DEWITT [facility], JOHN ([id number]) on 02/27/2025 4:20:11 PM Referred By: Electronically Signed By: JOHN CURRAN MD FAC Transcribed By: MUS Signed By John Curran MD, FACC 02/27/25 1620 Normal [facility] ECG 12 lead ECG [address] [address] Electrocardiograph Report Signed Patient: Lenader Decker MR#: [id number] 2 : 1970 Acct:[id number] Age/Sex: 54 / M ADM Date: 02/24/25 Loc: Room: [address] [place] [address] Type: ADM IN Attending Dr: Irwin Theodore [...] in Lateral leads Confirmed by BINA DEWITT [facility], JOHN ([id number]) on 02/24/2025 3:37:39 PM Referred By: Electronically Signed By: JOHN CURRAN MD [facility] Transcribed By: MUS Signed By John Curran MD, [facility] 02/24/25 1537 Normal [facility] Glucose Poct Glucometerson 0 02-24-2025 Glucose [Mass/Vol] 86 mg/dL Normal [facility] Comment on above: Result Comment: [facility] Glucose Reference Range is dependent on time and content of last meal. Glucose of more than 200 mg/dL in a nonstressed, ambulatory subject supports the diagnosis of Diabetes Mellitus. PERFORMED BY: [place] [address] PATHOLOGIST MOP MACHINE OPERATOR SAJAN MAGANA M.D. Performed By: #### G LULS #### Point of Care testing , Glucose [Mass/Vol] 88 mg/dL Normal [facility] Comment on above: Result Comment: [facility] Glucose Reference Range is dependent on time and content of last meal. Glucose of more than 200 mg/dL in a nonstressed, ambulatory subject supports the diagnosis of Diabetes Mellitus. PERFORMED BY: [place] [id number] PATHOLOGIST MOP MACHINE OPERATOR SAJAN MAGANA M.D. Performed By: #### P T, HS TROP, CBC #### [address] Glucose [Mass/Vol] 70 mg/dL Normal [facility] Comment on above: Result Comment: [facility] Glucose Reference Range is dependent on time and content of last meal. Glucose of more than 200 mg/dL in a nonstressed, ambulatory subject supports the diagnosis of Diabetes Mellitus. PERFORMED BY: [place] [id number] PATHOLOGIST MOP MACHINE OPERATOR SAJAN MAGANA M.D. Performed By: #### P T, HS TROP, CBC #### [address] Glucose [Mass/Vol] 87 mg/dL Normal [facility] Comment on above: Result Comment: [place] Glucose Reference Range is dependent on time and content of last meal. Glucose of more than 200 mg/dL in a nonstressed, ambulatory subject supports the diagnosis of Diabetes Mellitus. PERFORMED BY: [place] [address] PATHOLOGIST MOP MACHINE OPERATOR SAJAN MAGANA M.D. Performed By: #### G LULS #### Point of Care testing , Troponin I High Sensitivityo n 02-24-2025 Troponin I High Sensitivity 76 Off scale high 0-20 [facility] Comment on above: Result Comment: Crit ical Result : Called to and read back by: BONG KOLB/Phil at: 02/24/2025 12:37:06 by:[id number] The Troponin units of report have been changed to meet the Chest Pain Accreditation requirement, element EC5.M1l2. Troponin units are changed from pg/ml to ng/L. Also, the decimal is removed and results are in whole numbers. PERFORMED BY: [place] [address] PATHOLOGIST MOP MACHINE OPERATOR SAJAN MAGANA M.D. Performed By: #### P T, HS TROP, CBC #### [place] [id number] [facility] X-ray reportOrdered By: Luis Medeiros on 02-24-2025 Study report [facility] Main [place] [address] [place] [address] XRay Report Signed Patient: Leander Decker MR#: [id number] : 1970 Acct:[id number] Age/Sex: 54 / M ADM Date: 5 Loc: Room: [address] [place] [address] Type: ADM IN Attending Dr: Irwin Theodore [...] Medeiros M.D. 02/24/2025 4:29 PM Dictation Location: [facility]- Transcribed By: MARIUM 02/24/251628 Dictated By: Gerber Medeiros DO 02/24/251619 Signed By: 02/24/251628 [facility] XR chest 1V portableon 02-24 XR chest 1V portable [facility] [place] [address] XRay Report Signed Patient: Leander Decker MR#: [id number] 2 : 1970 Acct:[id number] Age/Sex: 54 / M ADM Date: 02/24/25 Loc: Room: [address] [place] [address] Type: ADM IN Attending Dr: Irwin Theodore [...] Medeiros M.D. 02/24/2025 4:29 PM Dictation Location: [facility]--20 Transcribed By: [facility] 02/24/25 1629 Dictated By: Gerber Medeiros DO 02/24/25 1620 Signed By: 02/24/25 1629 Normal [facility] Office Visiton 02-16-2025 Follow-up visit [id number] Leander Decker 1970 M Date Provider Department Center 02/16/2025 KIRK CASEY [facility] Family History Problem Relation Age of Onset Emphysema Mother Asthma Mother COPD Mother Heart disease Mother Heart attack Mother Mental illness Mother Heart failure Father Comments: age 57 Hypertension Father Mental illness Father Stroke Father No Known Problems Sister No Known Problems Sister No Known Problems Sister No Known Problems Sister Suicidality Sister Comments: age 36 Hypertension Brother Mental illness Brother No Known Problems Daughter Heart disease Maternal Grandmother Comments: Cardiac pacemaker in situ Family Status - Relation Status Age at Mother Father Sister Alive Sister Alive Sister Alive Sister Alive Sister Brother Alive Daughter Alive Maternal Grandmother Level of Service:[address] [place] OFFICE/OUTPATIENT ESTABLISHED MOD MDM 30 MIN Normal [facility] Potassium [Moles/volume] in Serum or PlasmaOrdered By: Toby Venegas on 02-05-2025 Potassium [Moles/Vol] Potassium [Moles/volume] in Serum or Plasma 3.5-5.1 [facility] Potassium [Moles/Vol] 4.4 mmol/L Normal 3.5-5.1 [facility] Comment on above: Result Comment: PERF ORMED BY: [place] [address] PATHOLOGIST MOP MACHINE OPERATOR SAJAN MAGANA M.D. Performed By: #### P T, HS TROP, CBC #### [address] Potassiumon 11-15-2024 Potassium [Moles/Vol] 4.6 mmol/L Normal 3.5-5.1 [facility] Comment on above: Result Comment: PERF ORMED BY: [place] [address] PATHOLOGIST MOP MACHINE OPERATOR SAJAN MAGANA M.D. Performed By: #### P T, HS TROP, CBC #### [facility] [address] [place] [address] [place] Potassium [Moles/volume] in Serum or PlasmaOrdered By: Junior Mayo on 11-15-2024 Potassium [Moles/Vol] Potassium [Moles/volume] in Serum or Plasma 3.5-5.1 [facility] Blood Cultureon 11-11-2024 Bacteria identified Cx Nom (Bld) NO GROWTH 5 DAYS PERFORMED BY: [place] [address] PATHOLOGIST MOP MACHINE OPERATOR SAJAN MAGANA M.D. Normal [facility] Comment on above: Performed By: #### P T, HS TROP, CBC #### [address] Bacteria identified Cx Nom (Bld) NO GROWTH 5 DAYS PERFORMED BY: [place] [address] PATHOLOGIST MOP MACHINE OPERATOR SAJAN MAGANA M.D. Normal [facility] Comment on above: Performed By: #### C UBLD #### [address] Laboratory - Microbiology an d Antimicrobial susceptibilityOrdered By: Ramos Govea on 11-11-2024 Bacteria identified Cx Nom (Bld) NO GROWTH 5 DAYS [facility] Bacteria identified Cx Nom (Bld) NO GROWTH 5 DAYS [facility] Potassiumon 10-31-2024 Potassium [Moles/Vol] 5.2 mmol/L High 3.5-5.1 [facility] Comment on above: Result Comment: PERF ORMED BY: [place] [address] PATHOLOGIST MOP MACHINE OPERATOR SAJAN MAGANA M.D. Performed By: #### P T, HS TROP, CBC #### [facility] [address] [place], [place] [id number] [place] Potassium [Moles/volume] in Serum or PlasmaOrdered By: Toby Venegas on 10-31-2024 Potassium [Moles/Vol] Potassium [Moles/volume] in Serum or Plasma High 3.5-5.1 [facility] Office Visiton 10-24-2024 Follow-up visit [id number] Leander Decker 1970 M Date Provider Department Center 10/24/2024 Antonia8-ANDREW CHURCH CARD [facility] Family History Problem Relation Age of Onset Emphysema Mother Asthma Mother COPD Mother Heart disease Mother Heart attack Mother Mental illness Mother Heart failure Father Comments: age 57 Hypertension Father Mental illness Father Stroke Father No Known Problems Sister No Known Problems Sister No Known Problems Sister No Known Problems Sister Suicidality Sister Comments: age 36 Hypertension Brother Mental illness Brother No Known Problems Daughter Heart disease Maternal Grandmother Comments: Cardiac pacemaker in situ Family Status - Relation Status Age at Mother Father Sister Alive Sister Alive Sister Alive Sister Alive Sister Brother Alive Daughter Alive Maternal Grandmother Level of Service:[address] [place] OFFICE/OUTPATIENT ESTABLISHED LOW MDM 20 MIN Normal [facility] BASIC METABOLIC PANELon 12- Anion gap [Moles/Vol] 21 mmol/L High 7-20 [facility] Comment on above: Performed By: #### L [id number] #### [facility] (AKER) [address] [place] [address] Calcium [Mass/Vol] 9.3 mg/dL Normal 8.6-10.3 [facility] Comment on above: Performed By: #### L [id number] #### [facility] (BEAKER) [address] [place] [address] Chloride [Moles/Vol] 95 mmol/L Low 98-107 [facility] Comment on above: Performed By: #### L [id number] #### [facility] (BEAKER) [address] [place] [address] CO2 [Moles/Vol] 24 mmol/L Normal 21-31 [facility] Comment on above: Performed By: #### L [id number] #### [facility] (BEAKER) [address] [place] [address] Creatinine [Mass/Vol] 11.42 mg/dL High 0.70-1.30 [facility] Comment on above: Performed By: #### L [id number] #### [facility] ([facility]) [address] [place] [address] GLOMERULAR FILTRATION RATE ML/MIN/1.73 SQ M.PREDICTED 4.8 mL/min/1.73m*2 Low >60.0 [facility] Comment on above: Result Comment: The [facility]???s estimated glomerular filtration rate (eGFR) will [...] group of individuals. Performed By: #### L [id number] #### [facility] ([facility]) [address] [place] [address] Glucose [Mass/Vol] 76 mg/dL Normal 70-100 [facility] Comment on above: Performed By: #### L [id number] #### [facility] ([facility]) [address] [place] [address] Potassium [Moles/Vol] 5.6 mmol/L High 3.5-5.1 [facility] Comment on above: Performed By: #### L [id number] #### [facility] ([facility]) [address] [place] [address] Sodium [Moles/Vol] 134 mmol/L Low 136-145 [facility] Comment on above: Performed By: #### L [id number] #### [facility] ([facility]) [address] [place] [address] Urea nitrogen [Mass/Vol] 51 mg/dL High 7-25 [facility] Comment on above: Performed By: #### L [id number] #### [facility] ([facility]) [address] [place] [address] UREA NITROGEN/CREATININE (MASS RATIO) IN SER/PLAS 4.5 Normal [facility] Comment on above: Performed By: #### L [id number] #### [facility] ([facility]) [address] [place] [address] CBC WITH AUTO DIFFERENTIALon 09-23-2024 Basophils (Bld) [#/Vol] 0.05 10*3/uL Normal 0.00-0.20 [facility] Comment on above: Performed By: #### L [id number] ####[facility] ([facility])[address] [place] [address] Basophils/100 WBC (Bld) 0.6 % Normal 0.0-1.0 [facility] Comment on above: Performed By: #### L [id number] ####[facility] ([facility])[address] [place] [address] Eosinophils (Bld) [#/Vol] 0.77 10*3/uL High 0.00-0.50 [facility] Comment on above: Performed By: #### L [id number] ####[facility] ([facility])[address] [place] [address] Eosinophils/100 WBC (Bld) 8.6 % High 0.0-6.0 [facility] Comment on above: Performed By: #### L [id number] ####[facility] ([facility])[address] [place] [address] Erythrocyte distribution width (RBC) [Ratio] 14.6 % Normal 11.5-15.0 [facility] Comment on above: Performed By: #### L [id number] ####[facility] ([facility])[address] [place] [address] ERYTHROCYTE MEAN CORPUSCULAR HEMOGLOBIN CONCENTRATION (G/DL) BY AUTOMATED 31.0 g/dL Low 32.0-35.0 [facility] Comment on above: Performed By: #### L [id number] ####[facility] ([facility])[address] [place] [address] Hematocrit (Bld) [Volume fraction] 29.0 % Low 39.0-55.0 [facility] Comment on above: Performed By: #### L [id number] ####[facility] ([facility])[address] [place] [address] Hemoglobin (Bld) [Mass/Vol] 9.0 g/dL Low 13.0-17.0 [facility] Comment on above: Performed By: #### L [id number] ####[facility] ([facility])[address] [place] [address] Immature granulocytes (Bld) [#/Vol] 0.03 10*3/uL Normal 0.00-0.20 [facility] Comment on above: Performed By: #### L [id number] ####[facility] ([facility])[address] [place] [address] Immature granulocytes/100 WBC (Bld) 0.3 % Normal 0.0-1.0 [facility] Comment on above: Performed By: #### L [id number] ####[facility] ([facility])[address] [place] [address] Lymphocytes (Bld) [#/Vol] 0.53 10*3/uL Low 1.20-4.00 [facility] Comment on above: Performed By: #### L [id number] ####[facility] ([facility])[address] [place] [address] Lymphocytes/100 WBC (Bld) 5.9 % Low 20.0-45.0 [facility] Comment on above: Performed By: #### L [id number] ####[facility] (BEAKER)[address] [place] [address] MCH (RBC) [Entitic mass] 32.3 pg Normal 27.0-33.0 [facility] Comment on above: Performed By: #### L [id number] ####[facility] (BEAKER)[address] [place] [address] MCV (RBC) [Entitic vol] 103.9 fL High 82.0-98.0 [facility] Comment on above: Performed By: #### L [id number] ####[facility] (BEAKER)[address] [place] [address] Monocytes (Bld) [#/Vol] 0.71 10*3/uL Normal 0.10-1.00 [facility] Comment on above: Performed By: #### L [id number] ####[facility] (BEAKER)[address] [place] [address] Monocytes/100 WBC (Bld) 7.9 % Normal 5.0-12.0 [facility] Comment on above: Performed By: #### L [id number] ####[facility] (BEAKER)[address] [place] [address] Neutrophils (Bld) [#/Vol] 6.85 10*3/uL Normal 1.60-7.60 [facility] Comment on above: Performed By: #### L [id number] ####[facility] (BEAKER)[address] [place] [address] Neutrophils/100 WBC (Bld) 76.7 % High 40.0-72.0 [facility] Comment on above: Performed By: #### L [id number] ####[facility] (BEAKER)[address] [place] [address] NRBC (PER 100 WBCS) BY AUTOMATED COUNT 0.0 % Normal 0 [facility] Comment on above: Performed By: #### L [id number] ####[facility] (BEAKER)[address] [place] [address] PLATELETS (10*3/UL) IN BLOOD AUTOMATED COUNT 271 10*3/uL Normal 150-400 [facility] Comment on above: Performed By: #### L [id number] ####[facility] (BEAKER)[address] [place] [address] RBC (Bld) [#/Vol] 2.79 10*6/uL Low 4.20-5.70 [facility] Comment on above: Performed By: #### L [id number] ####[facility] (BEAKER)[address] [place] [address] WBC (Bld) [#/Vol] 8.94 10*3/uL Normal 4.00-10.60 [facility] Comment on above: Performed By: #### L [id number] ####[facility] (BEAKER)[address] [place] [address] CONSULTon 09-23-2024 CONSULT --- Attestation signed by Ella White MD at 09/23/2024 9:16 PM By using the attestations below, the signing clinician agrees that I have read and verify that the documentation has been personally reviewed by me and ensure that the documentation accurately reflects the encounter. GC: I personally saw this patient on the day of the encounter, performed the bridges portion(s) of the service and participated in the management and confirm the resident's documentation. Please note there may be an additional personal documentation from me. Nephrology Consult Note Patient : Leander Decker; 54 y.o. Location: [id number]/3120-01 Attending: No att. providers found Admit Date: 09/22/2024 Hospital Day: 0 Reason for Consult: ESRD. History of Present Illness: Leander Decker is a 54 y.o. male with Hx of Acute cerebrovascular accident (CVA) due to stenosis of left carotid artery ([facility]) (06/28/2021), Acute on chronic respiratory failure with hypoxia and hypercapnia ([facility]), Acute renal failure on dialysis ([facility]) (12/2021), Aortoiliac occlusive disease ([facility]), Bilateral carotid artery stenosis, CHF (congestive heart failure) ([facility]), COPD (chronic obstructive pulmonary disease) ([facility]), Coronary artery disease, Depression, ESRD (end stage renal disease) ([facility]) (03/12/2021), GERD (gastroesophageal reflux disease), Heart palpitations, History of CHF (congestive heart failure), History of Cuong thyroiditis, Hyperlipidemia, Hypertensive disorder, Hypothyroidism, Lymphadenopathy, axillary, Normocytic anemia, Obesity, STEFANIE (obstructive sleep apnea), Peripheral artery disease ([facility]), Peripheral neuropathy, PVD (peripheral vascular disease) ([facility]), TIA (transient ischemic attack) (2020), Tobacco abuse, and Vitamin D deficiency. Presented with unstable angina, known MV CAD here for impella assisted PCI. Review of Systems: Review of Systems Constitutional: Negative for diaphoresis, fatigue and fever. Respiratory: Negative for cough, chest tightness, shortness of breath and wheezing. Cardiovascular: Negative for chest pain, palpitations and leg swelling. Gastrointestinal: Negative for abdominal pain, nausea and vomiting. Input/Output: I/O last 3 completed shifts: In: 835 (9.6 mL/kg) [P.O.:835] Out: 20 (0.2 mL/kg) [Blood:20] Weight: 86.6 kg Vital Signs: Temperature: Temp: 36.2 ???C (97.2 ???F) TMax: Temp (24hrs), Av.4 ???C (97.6 ???F), Min:36.2 ???C (97.2 ???F), Max:36.8 ???C (98.2 ???F) Respirations: Resp: 20 Pulse: Heart Rate: 80 BP: BP: 115/68 BP Range: Systolic (24hrs), Av , Min:115 , Max:197 Diastolic (24hrs), Av, Min:68, Max:98 Wt Readings from Last 3 Encounters: 09/23/24 86.6 kg (191 lb) 08/08/24 86.6 kg (191 lb) 07/18/24 87.5 kg (192 lb 12.8 oz) Physical Examination: Physical Exam Constitutional: General: He is not in acute distress. HENT: Head: Normocephalic and atraumatic. Eyes: General: No scleral icterus. Cardiovascular: Rate and Rhythm: Normal rate. Heart sounds: No gallop. Pulmonary: Breath sounds: No wheezing or rales. Abdominal: Tenderness: There is no abdominal tenderness. Musculoskeletal: Cervical back: Neck supple. Right lower leg: No edema. Left lower leg: No edema. Skin: Coloration: Skin is not jaundiced. Neurological: Mental Status: He is alert and oriented to person, place, and time. Labs: Chemistry: Lab Results Component Value Date NA 134 (L) 09/23/2024 NA 133 (L) 12/13/2023 K 5.6 (H) 09/23/2024 K 6.2 (HH) 12/13/2023 CL 95 (L) 09/23/2024 CO2 24 09/23/2024 CO2 17 (L) 07/23/2021 ANIONGAP 21 (H) 09/23/2024 BUN 51 (H) 09/23/2024 CREATININE 11.42 (H) 09/23/2024 EGFR 4.8 (L) 09/23/2024 GLU 106 (H) 07/23/2021 CKTOTAL 157 03/12/2021 CALCIUM 9.3 09/23/2024 MG 2.1 05/31/2024 PHOS 5.2 (H) 05/31/2024 PTH 249 (H) 05/28/2024 URICAC 5.4 03/15/2021 ALBUMIN 3.4 (L) 05/28/2024 PROT 5.6 (L) 05/28/2024 AST 6 (L) 05/28/2024 ALT 4 (L) 05/28/2024 BILITOT 0.4 05/28/2024 BILIDIR 0.1 12/13/2023 ALKPHOS 58 05/28/2024 Hematology & Iron studies: Lab Results Component Value Date WBC 8.94 09/23/2024 HGB 9.0 (L) 09/23/2024 HCT 29.0 (L) 09/23/2024 MCV 103.9 (H) 09/23/2024 PLT 271 09/23/2024 IRON 31 (L) 05/28/2024 TIBC 198 (L) 05/28/2024 UIBC 167.0 05/28/2024 IRONSAT 16 (L) 05/28/2024 FERRITIN 437.0 (H) 05/28/2024 Urine chemistry: Lab Results Component Value Date PROTUR >=500 (A) 03/16/2021 PROTUR 315.0 03/16/2021 Urinalysis & Microscopy: Lab Results Component Value Date COLORU BARBARA (A) 03/16/2021 CLARITYU CLOUDY (A) 03/16/2021 SPECGRAVU 1.015 03/16/2021 PROTUR >=500 (A) 03/16/2021 PROTUR 315.0 03/16/2021 LEUKOCYTESU TRACE (A) 03/16/2021 NITRITEU NEGATIVE 03/16/2021 GLUCOSEU (more content not included)... [facility] DSon 09-23-2024 DS Admission Admitted 09/22/2024 for Coronary artery disease involving * Discharge Diagnosis Coronary artery disease with angina pectoris ([facility]) Discharge Disposition Home or Self Care () Discharge Medications Your medication list CONTINUE taking these medications Instructions Last Dose Given Next Dose Due albuterol 90 mcg/actuation inhaler aspirin 81 mg chewable tablet atorvastatin 40 mg tablet Commonly known as: Lipitor carvedilol 6.25 mg tablet Commonly known as: Coreg Take 1 tablet (6.25 mg) by mouth with breakfast and with evening meal. Take in addition to the 25 mg tablet for a total of 31.25 mg twice daily. carvedilol 25 mg tablet Commonly known as: Coreg clopidogrel 75 mg tablet Commonly known as: Plavix TAKE 1 TABLET (75 MG) BY MOUTH IN THE MORNING gabapentin 300 mg capsule Commonly known as: Neurontin hydrALAZINE 100 mg tablet Commonly known as: Apresoline isosorbide mononitrate ER 30 mg 24 hr tablet Commonly known as: Imdur Take 1 tablet (30 mg) by mouth once daily as directed. Do not crush or chew. levothyroxine 100 mcg tablet Commonly known as: Synthroid, Levoxyl lisinopril 20 mg tablet midodrine 5 mg tablet Commonly known as: Proamatine Nephro-Vianca 0.8 mg tablet Generic drug: B complex-vitamin C-folic acid ASK your doctor about these medications Instructions Last Dose Given Next Dose Due cyanocobalamin 1,000 mcg/mL injection Commonly known as: Vitamin B-12 INJECT 1ML INTO SHOULDER/THIGH OR BUTTOCKS ONCE A WEEK FOR 6 DOSES Activity For 1 week No strenuous activity for 1 week Showering instructions: okay to shower, do not sit in tub of water for 1 week Diet Continue on the same type of diet and foods as you were eating before your admission. Drink plenty of water. Allergies Iodinated contrast media and Sulfa (sulfonamide antibiotics) Hospital Course Patient with PMH of severe [place] V CAD (declined CABG planning PCI ), HTN, HFrEF (30-35%), CVA (left MCA due to left carotid stenosis, 06/28/2021), bilateral carotid stenosis s/p left carotid endarterectomy (07/22/2021), ESRD on HD, hyperlipidemia, PAD, Aortoiliac Atherosclerosis (s/p aortobifem bypass 06/20/2023), longstanding h/o tobacco abuse. Also Cuong thyroiditis with hypothyroidism, GERD with esophagitis, longstanding h/o tobacco abuse, depression/anxiety obesity, STEFANIE (on biPAP) . Right inguiainl lymphadenopathy with inconclusive biopsy for malignancy, being followed by H/O and surgery. In November 2023, patient underwent dobutamine stress echo as part of a nephrology transplant evaluation. On that echo, patient was noted to have reduced EF at high dose dobutamine levels, concerning for significant CAD/LM/3V disease. Subsequently, patient underwent cardiac catheterization which demonstrated severe three-vessel CAD. This was complicated by flash pulmonary edema and hypertensive emergency, perhaps from not enough fluid removed with HD. Was referred to CT surgery for CABG evaluation. This has been delayed due to concern for malignancy with right inguinal lymph node lymphadenopathy and subsequent effort to obtain biopsies. Recent right inguinal lymph node biopsy was inconclusive for malignancy. Dr. Georgiana De Souza with GS and Dr. Washington from oncology agreed that patient may proceed with his cardiac catheterization and intervention, patient may proceed with dual antiplatelet therapy. Plan to complete the ultrasound of axilla on the nonurgent basis and follow-up with patient in the future for potential biopsy after heart recovery. On 09/22/24 had elective complex impella-assisted PCI of left main/ostial LAD using balloon angioplasty, shockwave IVL, and drug-eluting stent placement, Shockwave intravascular lithotripsy with IVUS of the left main/LAD. There were no complications. He was held overnight for observation of large bore right femoral artery access and dialysis in the morning. Today patient says he is generally feeling well, has not been up and around much, but has no chest discomfort or heaviness, dyspnea, lightheadedness, palpitations. Right femoral arteriotomy site is somewhat tender. Discussed findings on heart catheterization, necessity for uninterrupted DAPT with aspirin and Plavix (which she was taking prior to procedure), and written instructions given will print with after visit summary. He was up and ambulated in room with no concerns, and was discharged home in stable condition with no changes in his usual medications. Cardiology outpatient follow-up is scheduled for 10/16/24. Hewas prescribed nicoderm patch to assist with smoking cessation. Will pursue cardiac rehab at [facility]. Pertinent Physical Exam At Time of Discharge Physical Exam Physical exam: BP (!) 178/93 (BP Location: Right arm, Patient Position: Sitting) Pulse 82 Temp 36.2 ???C (97.2 ???F) (Temporal) Resp 19 Ht 1.803 m (5' 11 ) Wt 86.6 kg (191 lb) SpO2 96% BMI 26 (more content not included)... Normal [facility] HEPATITIS B CORE ANTIBODY, T Pauline 09-23-2024 HEPATITIS B VIRUS CORE AB (PRESENCE) IN SER/PLAS BY IMM Non-Reactive Normal Nonreactive [facility] Comment on above: Performed By: #### L [id number] #### [facility] ([employer]) [address] [place] [address] HEPATITIS B SURFACE ANTIGENo collin 09-23-2024 HEPATITIS B VIRUS SURFACE AG PRESENCE IN SERUM Non-Reactive Normal Nonreactive [facility] Comment on above: Performed By: #### L [id number] ####[facility] ([facility])[address] [place] [address] HEPATITIS C ANTIBODYon 09-23 HEPATITIS C VIRUS AB PRESENCE IN SERUM Non-Reactive Normal Nonreactive [facility] Comment on above: Performed By: #### L [id number] #### [facility] ([facility]) [address] [place] [address] Orders Onlyon 09-23-2024 Orders Only [id number] Leander Decker 1970 M Date Provider Department [place] 09/23/2024 [id number] [facility] [place] [facility] Family History Problem Relation Age of Onset Emphysema Mother Asthma Mother COPD Mother Heart disease Mother Heart attack Mother Mental illness Mother Heart failure Father Comments: age 57 Hypertension Father Mental illness Father Stroke Father No Known Problems Sister No Known Problems Sister No Known Problems Sister No Known Problems Sister Suicidality Sister Comments: age 36 Hypertension Brother Mental illness Brother No Known Problems Daughter Heart disease Maternal Grandmother Comments: Cardiac pacemaker in situ Family Status - Relation Status Age at Mother Father Sister Alive Sister Alive Sister Alive Sister Alive Sister Brother Alive Daughter Alive Maternal Grandmother Normal [facility] BASIC METABOLIC PANELon 12-0 Anion gap [Moles/Vol] 19 mmol/L Normal 7-20 [facility] Comment on above: Performed By: #### L [id number] #### [facility] ([facility]) [address] [place] [address] Calcium [Mass/Vol] 8.7 mg/dL Normal 8.6-10.3 [facility] Comment on above: Performed By: #### L [id number] #### [facility] ([facility]) [address] [place] [address] Chloride [Moles/Vol] 99 mmol/L Normal 98-107 [facility] Comment on above: Performed By: #### L [id number] #### [facility] ([facility]) [address] [place] [address] CO2 [Moles/Vol] 24 mmol/L Normal 21-31 [facility] Comment on above: Performed By: #### L [id number] #### [facility] ([facility]) [address] [place] [address] Creatinine [Mass/Vol] 9.51 mg/dL High 0.70-1.30 [facility] Comment on above: Performed By: #### L [id number] #### [facility] ([facility]) [address] [place] [address] GLOMERULAR FILTRATION RATE ML/MIN/1.73 SQ M.PREDICTED 5.9 mL/min/1.73m*2 Low >60.0 [facility] Comment on above: Result Comment: The [facility]???s estimated glomerular filtration rate (eGFR) will [...] group of individuals. Performed By: #### L [id number] #### [facility] ([facility]) [address] [place] [address] Glucose [Mass/Vol] 83 mg/dL Normal 70-100 [facility] Comment on above: Performed By: #### L [id number] #### [facility] ([facility]) [address] [place] [address] Potassium [Moles/Vol] 5.1 mmol/L Normal 3.5-5.1 [facility] Comment on above: Performed By: #### L [id number] #### [facility] ([facility] [facility] [address] [place] [address] Sodium [Moles/Vol] 137 mmol/L Normal 136-145 [facility] Comment on above: Performed By: #### L [id number] #### [facility] ([facility]) [address] [place] [address] Urea nitrogen [Mass/Vol] 39 mg/dL High 7-25 [facility] Comment on above: Performed By: #### L [id number] #### [facility] ([facility]) [address] [place] [address] UREA NITROGEN/CREATININE (MASS RATIO) IN SER/PLAS 4.1 Normal [facility] Comment on above: Performed By: #### L [id number] #### [facility] ([facility]) [address] [place] [address] Anion gap [Moles/Vol] 18 mmol/L Normal 7-20 [facility] Comment on above: Performed By: #### L [id number] #### [facility] ([facility]) [address] [place] [address] Calcium [Mass/Vol] 9.3 mg/dL Normal 8.6-10.3 [facility] Comment on above: Performed By: #### L [id number] #### [facility] ([facility]) [address] [place] [address] Chloride [Moles/Vol] 98 mmol/L Normal 98-107 [facility] Comment on above: Performed By: #### L [id number] #### [facility] ([facility]) [address] [place] [address] CO2 [Moles/Vol] 28 mmol/L Normal 21-31 [facility] Comment on above: Performed By: #### L [id number] #### [facility] ([facility]) [address] [place] [address] Creatinine [Mass/Vol] 8.70 mg/dL High 0.70-1.30 [facility] Comment on above: Performed By: #### L [id number] #### [facility] ([facility]) [address] [place] [address] GLOMERULAR FILTRATION RATE ML/MIN/1.73 SQ M.PREDICTED 6.6 mL/min/1.73m*2 Low >60.0 [facility] Comment on above: Result Comment: The [facility]???s estimated glomerular filtration rate (eGFR) will [...] of individuals. Performed By: #### L [id number] #### [facility] ([facility]) [address] [place] [address] Glucose [Mass/Vol] 81 mg/dL Normal 70-100 [facility] Comment on above: Performed By: #### L [id number] #### [facility] ([facility]) [address] [place] [address] Potassium [Moles/Vol] 5.2 mmol/L High 3.5-5.1 [facility] Comment on above: Performed By: #### L [id number] #### [facility] ([facility]) [address] [place] [address] Sodium [Moles/Vol] 139 mmol/L Normal 136-145 [facility] Comment on above: Performed By: #### L [id number] #### [facility] ([facility]) [address] [place] [address] Urea nitrogen [Mass/Vol] 38 mg/dL High 7-25 [facility] Comment on above: Performed By: #### L [id number] #### [facility] ([facility]) [address] [place] [address] UREA NITROGEN/CREATININE (MASS RATIO) IN SER/PLAS 4.4 Normal [facility] Comment on above: Performed By: #### L [id number] #### [facility] ([facility]) [address] [place] [address] CBCon 09-22-2024 Erythrocyte distribution width (RBC) [Ratio] 14.3 % Normal 11.5-15.0 [facility] Comment on above: Performed By: #### L [id number] #### [facility] ([facility]) [address] [place] [address] ERYTHROCYTE MEAN CORPUSCULAR HEMOGLOBIN CONCENTRATION (G/DL) BY AUTOMATED 31.5 g/dL Low 32.0-35.0 [facility] Comment on above: Performed By: #### L [id number] #### [facility] ([facility]) [address] [place] [address] Hematocrit (Bld) [Volume fraction] 30.2 % Low 39.0-55.0 [facility] Comment on above: Performed By: #### L [id number] #### [facility] ([facility]) [address] [place] [address] Hemoglobin (Bld) [Mass/Vol] 9.5 g/dL Low 13.0-17.0 [facility] Comment on above: Performed By: #### L [id number] #### [facility] ([facility]) [address] [place] [address] MCH (RBC) [Entitic mass] 32.4 pg Normal 27.0-33.0 [facility] Comment on above: Performed By: #### L [id number] #### [facility] ([facility]) [address] [place] [address] MCV (RBC) [Entitic vol] 103.1 fL High 82.0-98.0 [facility] Comment on above: Performed By: #### L [id number] #### [facility] ([facility]) [address] [place] [address] PLATELETS (10*3/UL) IN BLOOD AUTOMATED COUNT 317 10*3/uL Normal 150-400 [facility] Comment on above: Performed By: #### L [id number] #### [facility] ([facility]) [address] [place] [address] RBC (Bld) [#/Vol] 2.93 10*6/uL Low 4.20-5.70 [facility] Comment on above: Performed By: #### L [id number] #### [facility] ([facility]) [address] [place] [address] WBC (Bld) [#/Vol] 8.35 10*3/uL Normal 4.00-10.60 [facility] Comment on above: Performed By: #### L [id number] #### [facility] ([facility]) [address] [place] [address] HPon 09-22-2024 HP --- Attestation signed by Andrew Church MD at 09/22/2024 9:01 AM H and P reviewed. No significant changes. Patient presenting with CAD, HFpEF. Plan to proceed with coronary angiography with planned high risk PCI. Procedure was explained to patient at length and in detail. Risks, benefits, and alternatives were discussed. Patient is informed that risks of this invasive procedure include, but are not limited to, bleeding, hematoma, kidney injury, CVA, arrythmia requiring defibrillation, need for emergent open heart surgery, and . Patient understands these risks and wishes to proceed. Andrew Church MD History Of Present Illness Leander Decker is a 54 y.o. male presenting with unstable angina, known MV CAD here for impella assisted PCI. Past Medical History He has a past medical history of Acute cerebrovascular accident (CVA) due to stenosis of left carotid artery ([facility]) (06/28/2021), Acute on chronic respiratory failure with hypoxia and hypercapnia ([facility]), Acute renal failure on dialysis ([facility]) (12/2021), Aortoiliac occlusive disease ([facility]), Bilateral carotid artery stenosis, CHF (congestive heart failure) ([facility]), COPD (chronic obstructive pulmonary disease) ([facility]), Coronary artery disease, Depression, ESRD (end stage renal disease) ([facility]) (03/12/2021), GERD (gastroesophageal reflux disease), Heart palpitations, History of CHF (congestive heart failure), History of Cuong thyroiditis, Hyperlipidemia, Hypertensive disorder, Hypothyroidism, Lymphadenopathy, axillary, Normocytic anemia, Obesity, STEFANIE (obstructive sleep apnea), Peripheral artery disease ([facility]), Peripheral neuropathy, PVD (peripheral vascular disease) ([facility]), TIA (transient ischemic attack) (2020), Tobacco abuse, and Vitamin D deficiency. Surgical History He has a past surgical history that includes CT guided percutaneous biopsy renal left (Left, 03/22/2021); Carotid endarterectomy (Left, 07/22/2021); Appendectomy; Insertion / removal / replacement venous access catheter (03/16/2021); Insertion / removal / replacement venous access catheter (03/12/2021); Dental surgery; Renal biopsy (03/16/2021); Insertion / removal / replacement venous access catheter (03/13/2021); Cataract extraction (Right, 2016); CT abdomen pelvis wo renal recipient (10/26/2022); Vascular surgery (06/20/2023); Vascular surgery (06/22/2023); AV fistula placement; CT guided percutaneous lymph node superficial (01/30/2024); and Cardiac catheterization. Social History He reports that he has been smoking cigarettes. He has a 35 pack-year smoking history. He has never used smokeless tobacco. He reports that he does not currently use alcohol. He reports that he does not use drugs. Allergies Iodinated contrast media and Sulfa (sulfonamide antibiotics) Medications Medications Prior to Admission Medication Sig Dispense Refill Last Dose albuterol 90 mcg/actuation inhaler every 4 (four) hours. Past Month aspirin 81 mg chewable tablet Chew 81 mg in the morning. 09/22/2024 atorvastatin (Lipitor) 40 mg tablet Take 10 mg by mouth in the morning. 09/22/2024 carvedilol (Coreg) 25 mg tablet Take 25 mg by mouth with breakfast and with evening meal. Total dose is 31.25mg oral twice daily 09/22/2024 carvedilol (Coreg) 6.25 mg tablet Take 1 tablet (6.25 mg) by mouth with breakfast and with evening meal. Take in addition to the 25 mg tablet for a total of 31.25 mg twice daily. 180 tablet 3 09/22/2024 clopidogrel (Plavix) 75 mg tablet TAKE 1 TABLET (75 MG) BY MOUTH IN THE MORNING 90 tablet 3 09/22/2024 gabapentin (Neurontin) 300 mg capsule Take 300 mg by mouth in the morning and at bedtime. 09/22/2024 hydrALAZINE (Apresoline) 100 mg tablet Take 100 mg by mouth in the morning and at bedtime. 09/22/2024 isosorbide mononitrate ER (Imdur) 30 mg 24 hr tablet Take 1 tablet (30 mg) by mouth once daily as directed. Do not crush or chew. 90 tablet 3 09/22/2024 levothyroxine (Synthroid, Levoxyl) 100 mcg tablet Take 112 mcg by mouth before breakfast. 09/22/2024 lisinopril 20 mg tablet Take 10 mg by mouth two times daily. 09/22/2024 cyanocobalamin (Vitamin B-12) 1,000 mcg/mL injection INJECT 1ML INTO SHOULDER/THIGH OR BUTTOCKS ONCE A WEEK FOR 6 DOSES (Patient not taking: Reported on 09/22/2024) 1 mL 2 More than a month midodrine (Proamatine) 5 mg tablet Take 5 mg by mouth three times daily. Not Taking Nephro-Vianca 0.8 mg tablet Take 0.8 mg by mouth in the morning. More than a month Review of Systems -ve otherwise Physical Exam Constitutional: Appearance: He is well-developed. He is not ill-appearing. HENT: Head: Normocephalic and atraumatic. Nose: Nose normal. Eyes: General: No scleral icterus. Pupils: Pupils are equal, round, and reactive to light. Neck: Thy (more content not included)... Normal [facility] NURSNOTEon 09-22-2024 NURSNOTE Report given to BRET Duffy from [facility] Any medications or safety alerts were reviewed. Any pending diagnostics and notifications were also reviewed, as well as any safety concerns or issues, abnormal labs, abnormal imagining, and abnormal assessment findings. Questions were answered. [facility] Letter (Out)on 09-01-2024 Letter (Out) [id number] Leander Decker Julia 1970 Provider Department Center 09/01/2024 None-None [facility] Family History Problem Relation Age of Onset Emphysema Mother Asthma Mother COPD Mother Heart disease Mother Heart attack Mother Mental illness Mother Heart failure Father Comments: age 57 Hypertension Father Mental illness Father Stroke Father No Known Problems Sister No Known Problems Sister No Known Problems Sister No Known Problems Sister Suicidality Sister Comments: age 36 Hypertension Brother Mental illness Brother No Known Problems Daughter Heart disease Maternal Grandmother Comments: Cardiac pacemaker in situ Family Status - Relation Status Age at Mother Father Sister Alive Sister Alive Sister Alive Sister Alive Sister Brother Alive Daughter Alive Maternal Grandmother [facility] Office Visiton 08-08-2024 Follow-up visit [id number] Leander Decker Julia 1970 Provider Department Center 08/08/2024 [facility]-ANDREW CHUR[facility] TON [facility] Family History Problem Relation Age of Onset Emphysema Mother Asthma Mother COPD Mother Heart disease Mother Heart attack Mother Mental illness Mother Heart failure Father Comments: age 57 Hypertension Father Mental illness Father Stroke Father No Known Problems Sister No Known Problems Sister No Known Problems Sister No Known Problems Sister Suicidality Sister Comments: age 36 Hypertension Brother Mental illness Brother No Known Problems Daughter Heart disease Maternal Grandmother Comments: Cardiac pacemaker in situ Family Status - Relation Status Age at Mother Father Sister Alive Sister Alive Sister Alive Sister Alive Sister Brother Alive Daughter Alive Maternal Grandmother Level of Service:00165 [place] OFFICE/OUTPATIENT ESTABLISHED MOD MDM 30 MIN [facility] Follow-Upon 07-18-2024 Follow-Up [id number] Leander Decker Julia 1970 Provider Department Center 07/18/2024 Kam-JONH DE SOUZA [facility] [place] Family History Problem Relation Age of Onset Emphysema Mother Asthma Mother COPD Mother Heart disease Mother Heart attack Mother Mental illness Mother Heart failure Father Comments: age 57 Hypertension Father Mental illness Father Stroke Father No Known Problems Sister No Known Problems Sister No Known Problems Sister No Known Problems Sister Suicidality Sister Comments: age 36 Hypertension Brother Mental illness Brother No Known Problems Daughter Heart disease Maternal Grandmother Comments: Cardiac pacemaker in situ Family Status - Relation Status Age at Mother Father Sister Alive Sister Alive Sister Alive Sister Alive Sister Brother Alive Daughter Alive Maternal Grandmother Level of Service:81316 [place] OFFICE/OUTPATIENT ESTABLISHED HIGH MDM 40 MIN Reason for Visit and Comments: Follow-up [[id number]] - Leander here today for follow up visit: Discuss LYMPH NODE Bx [facility] Refillon 07-05-2024 Refill [id number] Leander Decker W 1970 M Date Provider Department Center 07/05/2024 KWABENA BREWER [facility] [place] [facility] Family History Problem Relation Age of Onset Emphysema Mother Asthma Mother COPD Mother Heart disease Mother Heart attack Mother Mental illness Mother Heart failure Father Comments: age 57 Hypertension Father Mental illness Father Stroke Father No Known Problems Sister No Known Problems Sister No Known Problems Sister No Known Problems Sister Suicidality Sister Comments: age 36 Hypertension Brother Mental illness Brother No Known Problems Daughter Heart disease Maternal Grandmother Comments: Cardiac pacemaker in situ Family Status - Relation Status Age at Mother Father Sister Alive Sister Alive Sister Alive Sister Alive Sister Brother Alive Daughter Alive Maternal Grandmother Reason for Visit and Comments: Med Refill [[id number]] [facility] Orders Onlyon 07-02-2024 Orders Only [id number] Leander Decker W 1970 M Date Provider Department Center 07/02/2024 RASHMI NGUYEN [facility] ONC DCC Family History Problem Relation Age of Onset Emphysema Mother Asthma Mother COPD Mother Heart disease Mother Heart attack Mother Mental illness Mother Heart failure Father Comments: age 57 Hypertension Father Mental illness Father Stroke Father No Known Problems Sister No Known Problems Sister No Known Problems Sister No Known Problems Sister Suicidality Sister Comments: age 36 Hypertension Brother Mental illness Brother No Known Problems Daughter Heart disease Maternal Grandmother Comments: Cardiac pacemaker in situ Family Status - Relation Status Age at Mother Father Sister Alive Sister Alive Sister Alive Sister Alive Sister Brother Alive Daughter Alive Maternal Grandmother [facility] 36on 06-24-2024 36 Patient called transplant team in March of 2024 stating that he had quit smoking a couple of days and that he was going to be having a cardiac cath soon. ALYSSA Grant informed patient to call us to let us know when he had cardiac intervention and to advise when he was 30 days smoke-free/nicotine free so that he could have his first randomized drug screen. Patient has not called since. TC called patient today and he did not answer. There is no voicemail option to leave a message on his phone which is also a concern if he is listed for transplant in the future regarding organ offers. TC sending 30-day warning letter as patient has not reached out with an update in 3 months and phone attempt was unsuccessful. Awaiting response from patient. If he does not respond in 30 days his chart will be made inactive. There are also recent documentation's from other providers that he is still smoking. Will confirm if patient responds. [facility] Basic Metabolic Panelon 04-14 Anion gap [Moles/Vol] 16 mmol/L 9 - 16 mmol/L [facility] Calcium [Mass/Vol] 9.4 mg/dL 8.6 - 10. 4 mg/dL [facility] Chloride [Moles/Vol] 96 mmol/L Low 98 - 10 7 mmol/L [facility] CO2 [Moles/Vol] 25 mmol/L 20 - 31 mmol/L [facility] Creatinine [Mass/Vol] 7.2 mg/dL Critically high 0.7 0 - 1.20 mg/dL [facility] Comment on above: Previous Alert Value Reported Est, Glom Filt Rate 8 Low - PINF [facility] Comment on above: These results are not [...] [Mass/Vol] 98 mg/dL 74 - 99 mg/dL [facility] Interpretation and review of laboratory results Abnormal [facility] Potassium [Moles/Vol] 4.7 mmol/L 3.7 - 5.3 mmol/L [facility] Sodium [Moles/Vol] 137 mmol/L 136 - 145 mmol/L [facility] Urea nitrogen [Mass/Vol] 32 mg/dL High 6 - 20 mg/dL [facility] Basic Metabolic Profon 04-27 Anion gap [Moles/Vol] 16 mmol/L Normal 9-16 [facility] Comment on above: Performed By: #### C DP, BMP, TROPI #### [facility] [address] [place] [address] Mold Washer: Samuel Bui MD Calcium [Mass/Vol] 9.4 mg/dL Normal 8.6-10.4 [facility] Comment on above: Performed By: #### C DP, BMP, TROPI #### [facility] [address] [place] [address] Mold Washer: Samuel Bui MD Chloride [Moles/Vol] 96 mmol/L Low 98-107 [facility] Comment on above: Performed By: #### C DP, BMP, TROPI #### [facility] [address] [place] [address] Mold Washer: Samuel Bui MD CO2 [Moles/Vol] 25 mmol/L Normal 20-31 [facility] Comment on above: Performed By: #### C DP, BMP, TROPI #### [facility] [address] [place] [address] Mold Washer: Samuel Bui MD Creatinine [Mass/Vol] 7.2 mg/dL Critically high 0.70-1.20 [facility] Comment on above: Result Comment: Prev ious Alert Value Reported Performed By: #### C DP, BMP, TROPI #### [facility] [address] [place] [address] Mold Washer: Samuel Bui MD GFR/1.73 sq M.predicted among non-blacks MDRD (S/P/Bld) [Vol rate/Area] 8 mL/min/{1.73_m2} Low >60 [facility] Comment on above: Result Comment: [...] By: #### C DP, BMP, TROPI #### [facility] [address] [place] [address] Mold Washer: Samuel Bui MD Glucose [Mass/Vol] 98 mg/dL Normal 74-99 [facility] Comment on above: Performed By: #### C DP, BMP, TROPI #### [address] [address] Mold Washer: Samuel Bui MD Potassium [Moles/Vol] 4.7 mmol/L Normal 3.7-5.3 [facility] Comment on above: Performed By: #### C DP, BMP, TROPI #### [facility] [address] [place] [address] Mold Washer: Samuel Bui MD Sodium [Moles/Vol] 137 mmol/L Normal 136-145 [facility] Comment on above: Performed By: #### C DP, BMP, TROPI #### [facility] [address] [place] [address] Mold Washer: Samuel Bui MD Urea nitrogen [Mass/Vol] 32 mg/dL High 6-20 [facility] Comment on above: Performed By: #### C DP, BMP, TROPI #### [facility] [address] [place] [address] Mold Washer: Samuel Bui MD CBC with Auto Differentialon 04-27-2024 Basophils (Bld) [#/Vol] [facility] Basophils/100 WBC (Bld) 0 % 0 - 2 % [facility] Eosinophils (Bld) [#/Vol] 0.05 10*3/uL [facility] Eosinophils/100 WBC (Bld) 1 % 1 - 4 % [facility] Erythrocyte distribution width (RBC) [Ratio] 13.3 % 11.8 - 14.4 % [facility] Hematocrit (Bld) [Volume fraction] 27.8 % Low 40.7 - 50.3 % [facility] Hemoglobin (Bld) [Mass/Vol] 8.8 g/dL Low 13.0 - 17.0 g/dL [facility] Immature granulocytes (Bld) [#/Vol] 0.03 10*3/uL [facility] Immature granulocytes/100 WBC (Bld) 0 % 0 [facility] Interpretation and review of laboratory results Abnormal [facility] Lymphocytes/100 WBC (Bld) 8 % Low 24 - 43 % [facility] Lymphocytes/100 WBC (Bld) 0.72 % Low [facility] MCH (RBC) [Entitic mass] 31.4 pg 25.2 - 33.5 pg [facility] MCHC (RBC) [Mass/Vol] 31.7 g/dL 28.4 - 34.8 g/dL [facility] MCV (RBC) [Entitic vol] 99.3 fL 82.6 - 102.9 fL [facility] Monocytes/100 WBC (Bld) 8 % 3 - 12 % [facility] Monocytes/100 WBC (Bld) 0.72 % [facility] Neutrophils/100 WBC (Bld) 83 % High 36 - 65 % [facility] Nucleated RBC/100 WBC (Bld) [Ratio] 0.0 % 0.0 per 100 WBC [facility] Platelet mean volume (Bld) [Entitic vol] 9.9 fL 8.1 - 13.5 fL [facility] Platelets (Bld) [#/Vol] 206 10*3/uL [facility] RBC (Bld) [#/Vol] 2.80 10*6/uL Low 4.21 - 5.7 7 m/uL [facility] Segmented neutrophils/100 WBC (Bld) 7.94 % [facility] WBC other (Bld) [#/Vol] 9.5 [facility] CBC with Diffon 04-27-2024 Abs. Basophil <0.03 Normal 0.00-0.20 [facility] Comment on above: Performed By: #### C DP, BMP, TROPI #### [facility] [address] [place] [address] Mold Washer: Samuel Bui MD Abs.Imm.Granulocyte 0.03 k/uL Normal 0.00-0.30 [facility] Comment on above: Performed By: #### C DP, BMP, TROPI #### [facility] [address] [place] [address] Mold Washer: Samuel Bui MD Abs.Neutrophil (Seg) 7.94 k/uL Normal 1.50-8.10 [facility] Comment on above: Performed By: #### C DP, BMP, TROPI #### [facility] [address] [place] [address] Mold Washer: Samuel Bui MD Basophils/100 WBC (Bld) 0 % Normal 0-2 [facility] Comment on above: Performed By: #### C DP, BMP, TROPI #### [facility] [address] [place] [address] Mold Washer: Samuel Bui MD Eosinophils (Bld) [#/Vol] 0.05 10*3/uL Normal 0.00-0.44 [facility] Comment on above: Performed By: #### C DP, BMP, TROPI #### [facility] [address] [place] [address] Mold Washer: Samuel Bui MD Eosinophils/100 WBC (Bld) 1 % Normal 1-4 [facility] Comment on above: Performed By: #### C DP BMP, TROPI #### [facility] [address] [place] [address] Mold Washer: Samuel Bui MD Erythrocyte distribution width (RBC) [Ratio] 13.3 % Normal 11.8-14.4 [facility] Comment on above: Performed By: #### C DP, BMP, TROPI #### [facility] [address] [place] [address] Mold Washer: Samuel Bui MD Hematocrit (Bld) [Volume fraction] 27.8 % Low 40.7-50.3 [facility] Comment on above: Performed By: #### C DP, BMP, TROPI #### [address] [address] Mold Washer: Samuel Bui MD Hemoglobin (Bld) [Mass/Vol] 8.8 g/dL Low 13.0-17.0 [facility] Comment on above: Performed By: #### C DP, BMP, TROPI #### [facility] [address] [place] [address] Mold Washer: Samuel Bui MD Immature granulocytes/100 WBC (Bld) 0 % Normal 0 [facility] Comment on above: Performed By: #### C DP, BMP, TROPI #### [facility] [address] [place] [address] Mold Washer: Samuel Bui MD Lymphocytes (Bld) [#/Vol] 0.72 10*3/uL Low 1.10-3.70 [facility] Comment on above: Performed By: #### C DP, BMP, TROPI #### [facility] [address] [place] [address] Mold Washer: Samuel Bui MD Lymphocytes/100 WBC (Bld) 8 % Low 24-43 [facility] Comment on above: Performed By: #### C DP, BMP, TROPI #### [address] [address] Mold Washer: Samuel Bui MD MCH (RBC) [Entitic mass] 31.4 pg Normal 25.2-33.5 [facility] Comment on above: Performed By: #### C DP, BMP, TROPI #### [address] [address] Mold Washer: Samuel Bui MD MCHC (RBC) [Mass/Vol] 31.7 g/dL Normal 28.4-34.8 [facility] Comment on above: Performed By: #### C DP, BMP, TROPI #### [address] [address] Mold Washer: Samuel Bui MD MCV (RBC) [Entitic vol] 99.3 fL Normal 82.6-102.9 [facility] Comment on above: Performed By: #### C DP, BMP, TROPI #### [address] [address] Mold Washer: Samuel Bui MD Monocytes (Bld) [#/Vol] 0.72 10*3/uL Normal 0.10-1.20 [facility] Comment on above: Performed By: #### C DP, BMP, TROPI #### [address] [address] Mold Washer: Samuel Bui MD Monocytes/100 WBC (Bld) 8 % Normal 3-12 [facility] Comment on above: Performed By: #### C DP, BMP, TROPI #### [address] [address] Mold Washer: Samuel Bui MD Neutrophil (Seg) 83 % High 36-65 [facility] Comment on above: Performed By: #### C DP, BMP, TROPI #### [facility] [address] [place] [address] Mold Washer: Samuel Bui MD NRBC Automated 0.0 per 100 WBC Normal 0.0 [facility] Comment on above: Performed By: #### C DP, BMP, TROPI #### [facility] [address] [place] [address] Mold Washer: Samuel Bui MD Platelet mean volume (Bld) [Entitic vol] 9.9 fL Normal 8.1-13.5 [facility] Comment on above: Performed By: #### C DP, BMP, TROPI #### [facility] [address] [place] [address] Mold Washer: Samuel Bui MD Platelets (Bld) [#/Vol] 206 10*3/uL Normal 138-453 [facility] Comment on above: Performed By: #### C DP, BMP, TROPI #### [facility] [place] [address] Mold Washer: Samuel Bui MD RBC (Bld) [#/Vol] 2.80 10*6/uL Low 4.21-5.77 [facility] Comment on above: Performed By: #### C DP, BMP, TROPI #### [address] [address] Mold Washer: Samuel Bui MD WBC (Bld) [#/Vol] 9.5 10*3/uL Normal 3.5-11.3 [facility] Comment on above: Performed By: #### C DP, BMP, TROPI #### [facility] [address] [place] [address] Mold Washer: Samuel Bui MD MRSA DNA Probe, [facility] 07- Interpretation and review of laboratory results Abnormal [facility] MRSA, DNA, Nasal POSITIVE: MRSA DNA detected by nucleic acid amplification. Abnormal NEGATIVE [facility] Comment on above: Results should be used as an adjunct to nosocomial control efforts to identify patients needing enhanced precautions. The test is not intended to identify patients with staphylococcal infections. Results should not be used to guide or monitor treatment for MRSA infections. Specimen Description .NASAL SWAB [facility] MRSA, DNA, Nasalon MRSA, DNA, Nasal POSITIVE: MRSA DNA detected by nucleic acid amplification. Abnormal NEG [facility] Comment on above: Result Comment: Results should be used as an adjunct to nosocomial control efforts to identify patients needing enhanced precautions. The test is not intended to identify patients with staphylococcal infections. Results should not be used to guide or monitor treatment for MRSA infections. Performed By: #### M RSANO #### [facility] [address] [place] [address] Mold Washer: Samuel Bui MD Troponinon 04-27-2024 Interpretation and review of laboratory results Abnormal [facility] Troponin I.cardiac High sensitivity method [Mass/Vol] 162 ng/L Critically high 0 - 22 ng/L [facility] Comment on above: High Sensitivity Tro ponin values cannot be compared with other Troponin methodologies. Previous Alert Value Reported [facility] Troponin, High Sens 162 ng/L Critically high 0-22 [facility] Comment on above: Result Comment: High Sensitivity Troponin values cannot be compared with other Troponin methodologies. Previous Alert Value Reported Performed By: #### C DP, BMP, TROPI #### [facility] [address] [place] [address] Mold Washer: Samuel Bui MD Basic Metabolic Panelon 04-14 Anion gap [Moles/Vol] 19 mmol/L High 9 - 16 mmol/L [facility] Calcium [Mass/Vol] 9.5 mg/dL 8.6 - 10. 4 mg/dL [facility] Chloride [Moles/Vol] 92 mmol/L Low 98 - 10 7 mmol/L [facility] CO2 [Moles/Vol] 21 mmol/L 20 - 31 mmol/L [facility] Creatinine [Mass/Vol] 9.9 mg/dL Critically high 0.7 0 - 1.20 mg/dL [facility] Est, Glom Filt Rate 6 Low - PINF [facility] Comment on above: These results are not [...] 138 mg/dL High 74 - 99 mg/dL [facility] Potassium [Moles/Vol] 5.1 mmol/L 3.7 - 5.3 mmol/L [facility] Sodium [Moles/Vol] 132 mmol/L Low 136 - 145 mmol/L [facility] Urea nitrogen [Mass/Vol] 47 mg/dL High 6 - 20 mg/dL [facility] Basic Metabolic Profon 04-26 Anion gap [Moles/Vol] 19 mmol/L High 9-16 [facility] Comment on above: Performed By: #### B CLINICAL OPERATIONS CONSULTANT, BMP, CDP, MG, KAILEY, TROPI #### [employer] [facility] [address] [place] [address] Mold Washer: Samuel Bui MD Calcium [Mass/Vol] 9.5 mg/dL Normal 8.6-10.4 [facility] Comment on above: Performed By: #### B CLINICAL OPERATIONS CONSULTANT, BMP, CDP, MG, KAILEY, TROPI #### [employer] [facility] [place] [address] Mold Washer: Smauel Bui MD Chloride [Moles/Vol] 92 mmol/L Low 98-107 [facility] Comment on above: Performed By: #### B CLINICAL OPERATIONS CONSULTANT, BMP, CDP, MG, KAILEY, TROPI #### [employer] [address] [place] [address] [phone] Mold Washer: Samuel Bui MD CO2 [Moles/Vol] 21 mmol/L Normal 20-31 [facility] Comment on above: Performed By: #### B CLINICAL OPERATIONS CONSULTANT, BMP, CDP, MG, KAILEY, TROPI #### [address] [address] Mold Washer: Samuel Bui MD Creatinine [Mass/Vol] 9.9 mg/dL Critically high 0.70-1.20 [facility] Comment on above: Performed By: #### B CLINICAL OPERATIONS CONSULTANT, BMP, CDP, MG, KAILEY, TROPI #### [address] [address] Mold Washer: Samuel Bui MD GFR/1.73 sq M.predicted among non-blacks MDRD (S/P/Bld) [Vol rate/Area] 6 mL/min/{1.73_m2} Low >60 [facility] Comment on above: Result Comment: [...] renal tubular secretion. Performed By: #### B CLINICAL OPERATIONS CONSULTANT, BMP, CDP, MG, KAILEY, TROPI #### [address] [address] Mold Washer: Samuel Bui MD Glucose [Mass/Vol] 138 mg/dL High 74-99 [facility] Comment on above: Performed By: #### B CLINICAL OPERATIONS CONSULTANT, BMP, CDP, MG, KAILEY, TROPI #### [address] [address] Mold Washer: Samuel Bui MD Potassium [Moles/Vol] 5.1 mmol/L Normal 3.7-5.3 [facility] Comment on above: Performed By: #### B CLINICAL OPERATIONS CONSULTANT, BMP, CDP, MG, KAILEY, TROPI #### [facility] [address] [place] [address] Mold Washer: Samuel Bui MD Sodium [Moles/Vol] 132 mmol/L Low 136-145 [facility] Comment on above: Performed By: #### B CLINICAL OPERATIONS CONSULTANT, BMP, CDP, MG, KAILEY, TROPI #### [employer] [address] [place] [address] Mold Washer: Samuel Bui MD Urea nitrogen [Mass/Vol] 47 mg/dL High 6-20 [facility] Comment on above: Performed By: #### B CLINICAL OPERATIONS CONSULTANT, BMP, CDP, MG, KAILEY, TROPI #### [employer] [address] [place] [address] Mold Washer: Samuel Bui MD Brain Natri. Peptideon 04-26 Natriuretic peptide B (Bld) [Mass/Vol] 73456 pg/mL High 0-300 [facility] Comment on above: Result Comment: An a ge-independent cutoff point of 300 pg/ml has a 98% negative predictive value excluding acute heart failure. Performed By: #### B CLINICAL OPERATIONS CONSULTANT, BMP, CDP, MG, KAILEY, TROPI #### [employer] [address] [place] [address] Mold Washer: Samuel Bui MD Brain natriuretic peptideon 04-26-2024 Interpretation and review of laboratory results Abnormal [facility] Quu Natriuretic peptide B (Bld) [Mass/Vol] 90009 pg/mL High 0 - 300 pg/mL [id number] [employer] Comment on above: An age-independent c utoff point of 300 pg/ml has a 98% negative predictive value excluding acute heart failure. [facility] Quu CBC with Auto Differentialon 04-26-2024 Basophils (Bld) [#/Vol] 0.00 10*3/uL [facility] Basophils/100 WBC (Bld) 0 % 0 - 2 % [email or web address] [employer] Eosinophils (Bld) [#/Vol] 0.00 10*3/uL [facility] Eosinophils/100 WBC (Bld) 0 % Low 1 - 4 % [facility] Erythrocyte distribution width (RBC) [Ratio] 13.1 % 11.8 - 14.4 % [facility] Hematocrit (Bld) [Volume fraction] 30.8 % Low 40.7 - 50.3 % [facility] Hemoglobin (Bld) [Mass/Vol] 9.5 g/dL Low 13.0 - 17.0 g/dL [facility] Immature granulocytes (Bld) [#/Vol] 0.00 10*3/uL [facility] Immature granulocytes/100 WBC (Bld) 0 % 0 [facility] Interpretation and review of laboratory results Abnormal [facility] Lymphocytes/100 WBC (Bld) 3 % Low 24 - 43 % [facility] Lymphocytes/100 WBC (Bld) 0.23 % Low [facility] MCH (RBC) [Entitic mass] 30.8 pg 25.2 - 33.5 pg [facility] MCHC (RBC) [Mass/Vol] 30.8 g/dL 28.4 - 34.8 g/dL [facility] MCV (RBC) [Entitic vol] 100.0 fL 82.6 - 102.9 fL [facility] Monocytes/100 WBC (Bld) 1 % Low 3 - 12 % [facility] Monocytes/100 WBC (Bld) 0.08 % Low [facility] Morphology Julian (Bld) [Interp] Normal [facility] Neutrophils/100 WBC (Bld) 96 % High 36 - 65 % [facility] Nucleated RBC/100 WBC (Bld) [Ratio] 0.0 % 0.0 per 100 WBC [facility] Platelet mean volume (Bld) [Entitic vol] 9.8 fL 8.1 - 13.5 fL [facility] Platelets (Bld) [#/Vol] 202 10*3/uL [facility] RBC (Bld) [#/Vol] 3.08 10*6/uL Low 4.21 - 5.7 7 m/uL [facility] Segmented neutrophils/100 WBC (Bld) 7.29 % [facility] WBC other (Bld) [#/Vol] 7.6 [facility] CBC with Diffon 04-26-2024 Abs. Basophil 0.00 k/uL Normal 0.00-0.20 [facility] Comment on above: Performed By: #### B CLINICAL OPERATIONS CONSULTANT, BMP, CDP, MG, KAILEY, TROPI #### [facility] [address] [place] [address] Mold Washer: Samuel Bui MD Abs.Imm.Granulocyte 0.00 k/uL Normal 0.00-0.30 [facility] Comment on above: Performed By: #### B CLINICAL OPERATIONS CONSULTANT, BMP, CDP, MG, KAILEY, TROPI #### [facility] [address] [place] [address] Mold Washer: Samuel Bui MD Abs.Neutrophil (Seg) 7.29 k/uL Normal 1.50-8.10 [facility] Comment on above: Performed By: #### B CLINICAL OPERATIONS CONSULTANT, BMP, CDP, MG, KAILEY, TROPI #### [facility] [address] [place] [address] Mold Washer: Samuel Bui MD Basophils/100 WBC (Bld) 0 % Normal 0-2 [facility] Comment on above: Performed By: #### B CLINICAL OPERATIONS CONSULTANT, BMP, CDP, MG, KAILEY, TROPI #### [facility] [address] [place] [address] Mold Washer: Samuel Bui MD Eosinophils (Bld) [#/Vol] 0.00 10*3/uL Normal 0.00-0.44 [facility] Comment on above: Performed By: #### B CLINICAL OPERATIONS CONSULTANT, BMP, CDP, MG, KAILEY, TROPI #### [facility] [address] [place] [address] Mold Washer: Samuel Bui MD Eosinophils/100 WBC (Bld) 0 % Low 1-4 [facility] Comment on above: Performed By: #### B CLINICAL OPERATIONS CONSULTANT, BMP, CDP, MG, KAILEY, TROPI #### [address] [address] Mold Washer: Samuel Bui MD Immature granulocytes/100 WBC (Bld) 0 % Normal 0 [facility] Comment on above: Performed By: #### B CLINICAL OPERATIONS CONSULTANT, BMP, CDP, MG, KAILEY, TROPI #### [address] [address] Mold Washer: Samuel Bui MD Lymphocytes (Bld) [#/Vol] 0.23 10*3/uL Low 1.10-3.70 [facility] Comment on above: Performed By: #### B CLINICAL OPERATIONS CONSULTANT, BMP, CDP, MG, KAILEY, TROPI #### [address] [address] Mold Washer: Samuel Bui MD Lymphocytes/100 WBC (Bld) 3 % Low 24-43 [facility] Comment on above: Performed By: #### B CLINICAL OPERATIONS CONSULTANT, BMP, CDP, MG, KAILEY, TROPI #### [address] [address] Mold Washer: Samuel Bui MD Monocytes (Bld) [#/Vol] 0.08 10*3/uL Low 0.10-1.20 [facility] Comment on above: Performed By: #### B CLINICAL OPERATIONS CONSULTANT, BMP, CDP, MG, KAILEY, TROPI #### [address] [address] Mold Washer: Samuel Bui MD Monocytes/100 WBC (Bld) 1 % Low 3-12 [facility] Comment on above: Performed By: #### B CLINICAL OPERATIONS CONSULTANT, BMP, CDP, MG, KAILEY, TROPI #### [facility] [address] [place] [address] Mold Washer: Samuel Bui MD Morphology Julain (Bld) [Interp] Normal Normal [facility] Comment on above: Performed By: #### B CLINICAL OPERATIONS CONSULTANT, BMP, CDP, MG, KAILEY, TROPI #### [address] [address] Mold Washer: Samuel Bui MD Neutrophil (Seg) 96 % High 36-65 [facility] Comment on above: Performed By: #### B CLINICAL OPERATIONS CONSULTANT, BMP, CDP, MG, KAILEY, TROPI #### [address] [address] Mold Washer: Samuel Bui MD Erythrocyte distribution width (RBC) [Ratio] 13.1 % Normal 11.8-14.4 [facility] Comment on above: Performed By: #### B CLINICAL OPERATIONS CONSULTANT, BMP, CDP, MG, KAILEY, TROPI #### [address] [address] Mold Washer: Samuel Bui MD Hematocrit (Bld) [Volume fraction] 30.8 % Low 40.7-50.3 [facility] Comment on above: Performed By: #### B CLINICAL OPERATIONS CONSULTANT, BMP, CDP, MG, KAILEY, TROPI #### [address] [address] Mold Washer: Samuel Bui MD Hemoglobin (Bld) [Mass/Vol] 9.5 g/dL Low 13.0-17.0 [facility] Comment on above: Performed By: #### B CLINICAL OPERATIONS CONSULTANT, BMP, CDP, MG, KAILEY, TROPI #### [address] [address] Mold Washer: Samuel Bui MD MCH (RBC) [Entitic mass] 30.8 pg Normal 25.2-33.5 [facility] Comment on above: Performed By: #### B CLINICAL OPERATIONS CONSULTANT, BMP, CDP, MG, KAILEY, TROPI #### [facility] [address] [place] [address] Mold Washer: Samuel Bui MD MCHC (RBC) [Mass/Vol] 30.8 g/dL Normal 28.4-34.8 [facility] Comment on above: Performed By: #### B CLINICAL OPERATIONS CONSULTANT, BMP, CDP, MG, KAILEY, TROPI #### [address] [address] Mold Washer: Samuel Bui MD MCV (RBC) [Entitic vol] 100.0 fL Normal 82.6-102.9 [facility] Comment on above: Performed By: #### B CLINICAL OPERATIONS CONSULTANT, BMP, CDP, MG, KAILEY, TROPI #### [place] [address] Mold Washer: Samuel Bui MD NRBC Automated 0.0 per 100 WBC Normal 0.0 [facility] Comment on above: Performed By: #### B CLINICAL OPERATIONS CONSULTANT, BMP, CDP, MG, KAILEY, TROPI #### [address] [address] Mold Washer: Samuel Bui MD Platelet mean volume (Bld) [Entitic vol] 9.8 fL Normal 8.1-13.5 [facility] Comment on above: Performed By: #### B CLINICAL OPERATIONS CONSULTANT, BMP, CDP, MG, KAILEY, TROPI #### [place] [address] Mold Washer: Samuel Bui MD Platelets (Bld) [#/Vol] 202 10*3/uL Normal 138-453 [facility] Comment on above: Performed By: #### B CLINICAL OPERATIONS CONSULTANT, BMP, CDP, MG, KAILEY, TROPI #### [address] [address] Mold Washer: Samuel Bui MD RBC (Bld) [#/Vol] 3.08 10*6/uL Low 4.21-5.77 [facility] Comment on above: Performed By: #### B CLINICAL OPERATIONS CONSULTANT, BMP, CDP, MG, KAILEY, TROPI #### [facility] [address] [place] [address] Mold Washer: Samuel Bui MD WBC (Bld) [#/Vol] 7.6 10*3/uL Normal 3.5-11.3 [facility] Comment on above: Performed By: #### B CLINICAL OPERATIONS CONSULTANT, BMP, CDP, MG, KAILEY, TROPI #### [facility] [address] [place] [address] Mold Washer: Samuel Bui MD Hep B Surf Agon 04-26-2024 Hep B Surf Ag Non-Reactive Normal NR [facility] Comment on above: Performed By: #### B CLINICAL OPERATIONS CONSULTANT, BMP, CDP, MG, KAILEY, TROPI #### [facility] [address] [place] [address] Mold Washer: Samuel Bui MD Hepatitis B Surface Antigeno 04-26-2024 HBV surface Ag IA Ql Non-Reactive NONREACTIVE B [facility] MRSA, DNA, Nasalon Specimen Description .NASAL SWAB Normal [facility] Comment on above: Performed By: #### M RSANO #### [facility] [address] [place] [address] Mold Washer: Samuel Bui MD Magnesiumon 04-26-2024 Magnesium [Mass/Vol] 2.9 mg/dL High 1.6 - 2 .6 mg/dL [facility] Magnesium [Mass/Vol] 2.9 mg/dL High 1.6-2.6 [facility] Comment on above: Performed By: #### B CLINICAL OPERATIONS CONSULTANT, BMP, CDP, MG, KAILEY, TROPI #### [facility] [address] [place] [address] Mold Washer: Samuel Bui MD No Panel Informationon 04-26 Interpretation and review of laboratory results Abnormal [facility] Phosphoruson 04-26-2024 Phosphate [Mass/Vol] 5.0 mg/dL High 2.5 - 4 .5 mg/dL [facility] Phosphorus, Inorg.on 024 Phosphorus, Inorg. 5.0 mg/dL High 2.5-4.5 [facility] Comment on above: Performed By: #### B CLINICAL OPERATIONS CONSULTANT, BMP, CDP, MG, KAILEY, TROPI #### [facility] [address] [place], [place] [phone] Mold Washer: Samuel Bui MD Troponinon 04-26-2024 Troponin I.cardiac High sensitivity method [Mass/Vol] 159 ng/L Critically high 0 - 22 ng/L [facility] Comment on above: High Sensitivity Tro ponin values cannot be compared with other Troponin methodologies. Troponin, High Sens 159 ng/L Critically high 0-22 [facility] Comment on above: Result Comment: High Sensitivity Troponin values cannot be compared with other Troponin methodologies. Performed By: #### B CLINICAL OPERATIONS CONSULTANT, BMP, CDP, MG, KAILEY, TROPI #### [facility] [address] [place] [address] Mold Washer: Samuel Bui MD Potassium [Moles/volume] in Serum or PlasmaOrdered By: Junior Mayo on 02-21-2024 Potassium [Moles/Vol] 5.4 mmol/L 3.5-5.1 [facility] Potassium [Moles/volume] in Serum or PlasmaOrdered By: Junior Mayo on 02-07-2024 Potassium [Moles/Vol] 5.1 mmol/L 3.5-5.1 [facility] Alanine aminotransferase [En zymatic activity/volume] in Serum or PlasmaOrdered By: Percy Herrera on 01-09-2024 ALT [Catalytic activity/Vol] 12 U/L [facility] Albumin [Mass/volume] in Ser um or Plasma by Bromocresol green (BCG) dye binding methoOrdered By: Percy Herrera on 01-09-2024 Albumin BCG dye [Mass/Vol] 4.2 g/dL 3.5-5.7 [facility] Alkaline phosphatase [Enzyma tic activity/volume] in Serum or PlasmaOrdered By: Percy Herrera on 01-09-2024 ALP [Catalytic activity/Vol] 72 U/L 34-104 [facility] Aspartate aminotransferase [ Enzymatic activity/volume] in Serum or PlasmaOrdered By: Percy Herrera on 01-09-2024 AST [Catalytic activity/Vol] 15 U/L 13-39 [facility] Basophils Auto (Bld) [#/Vol] Ordered By: Percy Herrera on 01-09-2024 Basophils (Bld) [#/Vol] 0.1 10*3/uL 0.0-0.2 [facility] Basophils/100 WBC Auto (Bld) Ordered By: Percy Herrera on 01-09-2024 Basophils/100 WBC (Bld) 1.1 % . [facility] Bilirubin.total [Mass/volume ] in Serum or PlasmaOrdered By: Percy Herrera on 01-09-2024 Bilirubin [Mass/Vol] 0.6 mg/dL 0.3-1.0 [facility] Calcium [Mass/volume] in Ser um or PlasmaOrdered By: Percy Herrera on 01-09-2024 Calcium [Mass/Vol] 9.5 mg/dL 8.6-10.3 [facility] Carbon dioxide, total [Moles /volume] in Serum or PlasmaOrdered By: Percy Herrera on 01-09-2024 CO2 [Moles/Vol] 28.9 mmol/L 21.0-31.[address] [facility] Chloride [Moles/volume] in S timi or PlasmaOrdered By: Percy Herrera on 01-09-2024 Chloride [Moles/Vol] 95 mmol/L 98-107 [facility] Creatinine [Mass/volume] in Serum or PlasmaOrdered By: Percy Herrera on 01-09-2024 Creatinine [Mass/Vol] 5.40 mg/dL 0.70-1.30 [facility] Comment on above: Delta: 13.26 on 12/14 04/07-2223 Eosinophils Auto (Bld) [#/Vo l]Ordered By: Percy Herrera on 01-09-2024 Eosinophils (Bld) [#/Vol] 0.6 10*3/uL 0.0-0.45 [facility] Eosinophils/100 WBC Auto (Bl d)Ordered By: Percy Herrera on 01-09-2024 Eosinophils/100 WBC (Bld) 4.9 % . [facility] Erythrocyte distribution wid th Auto (RBC) [Ratio]Ordered By: Percy Herrera on 01-09-2024 Erythrocyte distribution width (RBC) [Ratio] 17.7 % 12.0-14.8 [facility] Globulin Calc (S) [Mass/Vol] Ordered By: Percy Herrera on 01-09-2024 Globulin (S) [Mass/Vol] 2.6 g/dL [facility] Glucose [Mass/volume] in Ser um or PlasmaOrdered By: Percy Herrera on 01-09-2024 Glucose [Mass/Vol] 77 mg/dL 70-100 [facility] Comment on above: ADA recommended refe rence rangeRandom Glucose Reference Range is dependent on time and content of last meal. Glucose of more than 200 mg/dL in a nonstressed, ambulatory subject supports the diagnosis of Diabetes Mellitus. Hematocrit Auto (Bld) [Volum e fraction]Ordered By: Percy Herrera on 01-09-2024 Hematocrit (Bld) [Volume fraction] 26.1 % 38.8-50.0 [facility] Hemoglobin [Mass/volume] in BloodOrdered By: Percy Herrera on 01-09-2024 Hemoglobin (Bld) [Mass/Vol] 8.7 g/dL 13.0-17.0 [facility] Leukocytes [#/volume] correc bernardo for nucleated erythrocytes in Blood by Automated counOrdered By: Percy Herrera on 01-09-2024 WBC corrected for nucl RBC Auto (Bld) [#/Vol] 11.3 10*3/uL 4.1-10.5 [facility] Lymphocytes Auto (Bld) [#/Vo l]Ordered By: Percy Herrera on 01-09-2024 Lymphocytes (Bld) [#/Vol] 0.8 10*3/uL 1.00-4.8 [facility] Lymphocytes/100 WBC Auto (Bl d)Ordered By: Percy Herrera on 01-09-2024 Lymphocytes/100 WBC (Bld) 7.2 % . [facility] MCH Auto (RBC) [Entitic mass ]Ordered By: Percy Herrera on 01-09-2024 MCH (RBC) [Entitic mass] 37.3 pg 27.5-35.2 [facility] MCHC Auto (RBC) [Mass/Vol]Or dered By: Percy Herrera on 01-09-2024 MCHC (RBC) [Mass/Vol] 33.4 g/dL 32.5-35.6 [facility] MCV Auto (RBC) [Entitic vol] Ordered By: Percy Herrera on 01-09-2024 MCV (RBC) [Entitic vol] 111.7 fL 83.5-101 [facility] Magnesium [Mass/volume] in S timi or PlasmaOrdered By: Percy Herrera on 01-09-2024 Magnesium [Mass/Vol] 1.9 mg/dL 1.9-2.7 [facility] Monocytes Auto (Bld) [#/Vol] Ordered By: Percy Herrera on 01-09-2024 Monocytes (Bld) [#/Vol] 0.6 10*3/uL 0.0-0.8 [facility] Monocytes/100 WBC Auto (Bld) Ordered By: Percy Herrera on 01-09-2024 Monocytes/100 WBC (Bld) 5.4 % . [facility] Neutrophils Auto (Bld) [#/Vo l]Ordered By: Percy Herrera on 01-09-2024 Neutrophils (Bld) [#/Vol] 9.2 10*3/uL 1.8-7.7 [facility] Neutrophils/100 WBC Auto (Bl d)Ordered By: Percy Herrera on 01-09-2024 Neutrophils/100 WBC (Bld) 81.4 % . [facility] No Panel InformationOrdered By: Percy Herrera on 01-09-2024 Estimated GFR (CKD-EPI) 11.747 mL/Min [facility] Creatinine Clearance (Chem 17.89 [facility] Nucleated erythrocytes [Pres ence] in Blood by Automated countOrdered By: Percy Herrera on 01-09-2024 Nucleated RBC Auto Ql (Bld) 0.2 /100{WBC} 0-0.5 [facility] Platelet mean volume Auto (B ld) [Entitic vol]Ordered By: Percy Herrera on 01-09-2024 Platelet mean volume (Bld) [Entitic vol] 8.4 fL 6.6-10.1 [facility] Platelets Auto (Bld) [#/Vol] Ordered By: Percy Herrera on 01-09-2024 Platelets (Bld) [#/Vol] 326 10*3/uL 150-450 [facility] Potassium [Moles/volume] in Serum or PlasmaOrdered By: Percy Herrera on 01-09-2024 Potassium [Moles/Vol] 3.5 mmol/L 3.5-5.1 [facility] Comment on above: Delta: 7.1 on Protein [Mass/volume] in Ser um or PlasmaOrdered By: Percy Herrera on 01-09-2024 Protein [Mass/Vol] 6.8 g/dL 6.4-8.9 [facility] RBC Auto (Bld) [#/Vol]Ordere d By: Percy Herrera on 01-09-2024 RBC (Bld) [#/Vol] 2.34 10*6/uL 3.90-5.[address] [facility] Serum or plasma albumin/glob ulin mass ratioOrdered By: Percy Herrera on 01-09-2024 Albumin/Globulin [Mass ratio] 1.6 {ratio} [facility] Serum or plasma anion gap de terminationOrdered By: Percy Herrera on 01-09-2024 Anion gap [Moles/Vol] 15.6 mmol/L 6.0-15.0 [facility] Sodium [Moles/volume] in Ser um or PlasmaOrdered By: Percy Herrera on 01-09-2024 Sodium [Moles/Vol] 136 mmol/L 136-145 [facility] Urea nitrogen [Mass/volume] in Serum or PlasmaOrdered By: Percy Herrera on 01-09-2024 Urea nitrogen [Mass/Vol] 21 mg/dL 7-25 [facility] Comment on above: Delta: 67 on 4-2223 WBC Auto (Bld) [#/Vol]Ordere d By: Percy Herrera on 01-09-2024 WBC (Bld) [#/Vol] 11.3 10*3/uL 4.1-10.[address] [facility] Anisocytosis LM Ql (Bld)Orde red By: Percy Herrera on 01-08-2024 Anisocytosis Ql (Bld) Moderate [facility] Macrocytes LM Ql (Bld)Ordere d By: Percy Herrera on 01-08-2024 Macrocytes Ql (Bld) Moderate [facility] Platelet adequacy [Presence] in Blood by Light microscopyOrdered By: Percy Herrera on 01-08-2024 Platelets LM Ql (Bld) Normal Normal [facility] Platelet morphology finding [Identifier] in BloodOrdered By: Percy Herrera on 01-08-2024 Platelet morphology finding Nom (Bld) Normal Normal [facility] Polychromasia [Presence] in Blood by Light microscopyOrdered By: Percy Herrera on 01-08-2024 Polychromasia LM Ql (Bld) Moderate [facility] RBC morphologyOrdered By: Armin Herrera on 01-08-2024 RBC morphology finding Nom (Bld) N/A [facility] Schistocytes [Presence] in B lood by Light microscopyOrdered By: Percy Herrera on 01-08-2024 Schistocytes LM Ql (Bld) Slight [facility] Potassium [Moles/volume] in Serum or PlasmaOrdered By: Toby Venegas on 11-10-2023 Potassium [Moles/Vol] 5.2 mmol/L 3.5-5.1 [facility] Potassium [Moles/volume] in Serum or PlasmaOrdered By: Junior Mayo on 11-03-2023 Potassium [Moles/Vol] 5.8 mmol/L 3.5-5.1 [facility] Potassium [Moles/volume] in Serum or PlasmaOrdered By: Junior Mayo on 10-11-2023 Potassium [Moles/Vol] 5.4 mmol/L 3.5-5.1 [facility] Basophils Auto (Bld) [#/Vol] Ordered By: Zo Serrano on 05-22-2023 Basophils (Bld) [#/Vol] 0.1 10*3/uL 0.0-0.2 [facility] Basophils/100 WBC Auto (Bld) Ordered By: Zo Serrano on 05-22-2023 Basophils/100 WBC (Bld) 0.4 % . [facility] Calcium [Mass/volume] in Ser um or PlasmaOrdered By: Zo Serrano on 05-22-2023 Calcium [Mass/Vol] 9.0 mg/dL 8.6-10.3 [facility] Carbon dioxide, total [Moles /volume] in Serum or PlasmaOrdered By: Zo Serrano on 05-22-2023 CO2 [Moles/Vol] 25.6 mmol/L 21.0-31.[address] [facility] Chloride [Moles/volume] in S timi or PlasmaOrdered By: Zo Serrano on 05-22-2023 Chloride [Moles/Vol] 95 mmol/L 98-107 [facility] Creatinine [Mass/volume] in Serum or PlasmaOrdered By: Zo Serrano on 05-22-2023 Creatinine [Mass/Vol] 13.60 mg/dL 0.70-1.30 [facility] Eosinophils Auto (Bld) [#/Vo l]Ordered By: Zo Serrano on 05-22-2023 Eosinophils (Bld) [#/Vol] 0.4 10*3/uL 0.0-0.45 [facility] Eosinophils/100 WBC Auto (Bl d)Ordered By: Zo Serrano on 05-22-2023 Eosinophils/100 WBC (Bld) 2.1 % . [facility] Erythrocyte distribution wid th Auto (RBC) [Ratio]Ordered By: Zo Serrano on 05-22-2023 Erythrocyte distribution width (RBC) [Ratio] 15.4 % 12.0-14.8 [facility] Glucose Glucometer (BldC) [M ass/Vol]Ordered By: Irwin Theodore on 05-22-2023 Glucose [Mass/Vol] 74 mg/dL [facility] Comment on above: Random Glucose Refer ence Range is dependent on time and content of last meal. Glucose of more than 200 mg/dL in a nonstressed, ambulatory subject supports the diagnosis of Diabetes Mellitus. Glucose [Mass/volume] in Ser um or PlasmaOrdered By: Zo Serrano on 05-22-2023 Glucose [Mass/Vol] 89 mg/dL 70-100 [facility] Comment on above: ADA recommended refe rence rangeRandom Glucose Reference Range is dependent on time and content of last meal. Glucose of more than 200 mg/dL in a nonstressed, ambulatory subject supports the diagnosis of Diabetes Mellitus. Hematocrit Auto (Bld) [Volum e fraction]Ordered By: Zo Serrano on 05-22-2023 Hematocrit (Bld) [Volume fraction] 32.9 % 38.8-50.0 [facility] Hemoglobin [Mass/volume] in BloodOrdered By: Zo Serrano on 05-22-2023 Hemoglobin (Bld) [Mass/Vol] 10.9 g/dL 13.0-17.0 [facility] Leukocytes [#/volume] correc bernardo for nucleated erythrocytes in Blood by Automated counOrdered By: Zo Serrano on 05-22-2023 WBC corrected for nucl RBC Auto (Bld) [#/Vol] 17.7 10*3/uL 4.1-10.5 [facility] Lymphocytes Auto (Bld) [#/Vo l]Ordered By: Zo Serrano on 05-22-2023 Lymphocytes (Bld) [#/Vol] 0.9 10*3/uL 1.00-4.8 [facility] Lymphocytes/100 WBC Auto (Bl d)Ordered By: Zo Serrano on 05-22-2023 Lymphocytes/100 WBC (Bld) 5.1 % . [facility] MCH Auto (RBC) [Entitic mass ]Ordered By: Zo Serrano on 05-22-2023 MCH (RBC) [Entitic mass] 34.5 pg 27.5-35.2 [facility] MCHC Auto (RBC) [Mass/Vol]Or dered By: Zo Serrano on 05-22-2023 MCHC (RBC) [Mass/Vol] 33.1 g/dL 32.5-35.6 [facility] MCV Auto (RBC) [Entitic vol] Ordered By: Zo Serrano on 05-22-2023 MCV (RBC) [Entitic vol] 104.4 fL 83.5-101 [facility] Magnesium [Mass/volume] in S timi or PlasmaOrdered By: Zo Serrano on 05-22-2023 Magnesium [Mass/Vol] 2.2 mg/dL 1.9-2.7 [facility] Monocytes Auto (Bld) [#/Vol] Ordered By: Zo Serrano on 05-22-2023 Monocytes (Bld) [#/Vol] 0.9 10*3/uL 0.0-0.8 [facility] Monocytes/100 WBC Auto (Bld) Ordered By: Zo Serrano on 05-22-2023 Monocytes/100 WBC (Bld) 5.2 % . [facility] Neutrophils Auto (Bld) [#/Vo l]Ordered By: Zo Serrano on 05-22-2023 Neutrophils (Bld) [#/Vol] 15.5 10*3/uL 1.8-7.7 [facility] Neutrophils/100 WBC Auto (Bl d)Ordered By: Zo Serrano on 05-22-2023 Neutrophils/100 WBC (Bld) 87.2 % . [facility] No Panel InformationOrdered By: Zo Serrano on 05-22-2023 Estimated GFR (CKD-EPI) 3.902 mL/Min [facility] Creatinine Clearance (Chem 7.38 [facility] Nucleated erythrocytes [Pres ence] in Blood by Automated countOrdered By: Zo Serrano on 05-22-2023 Nucleated RBC Auto Ql (Bld) 0.1 /100{WBC} 0-0.5 [facility] Phosphate [Mass/volume] in S timi or PlasmaOrdered By: Zo Serrano on 05-22-2023 Phosphate [Mass/Vol] 5.0 mg/dL 3.7-7.2 [facility] Platelet mean volume Auto (B ld) [Entitic vol]Ordered By: Zo Serrano on 05-22-2023 Platelet mean volume (Bld) [Entitic vol] 6.9 fL 6.6-10.1 [facility] Platelets Auto (Bld) [#/Vol] Ordered By: Zo Serrano on 05-22-2023 Platelets (Bld) [#/Vol] 249 10*3/uL 150-450 [facility] Potassium [Moles/volume] in Serum or PlasmaOrdered By: Zo Serrano on 05-22-2023 Potassium [Moles/Vol] 5.5 mmol/L 3.5-5.1 [facility] RBC Auto (Bld) [#/Vol]Ordere d By: Zo Serrano on 05-22-2023 RBC (Bld) [#/Vol] 3.15 10*6/uL 3.90-5.[address] [facility] Serum or plasma anion gap de terminationOrdered By: Zo Serrano on 05-22-2023 Anion gap [Moles/Vol] 19.9 mmol/L 6.0-15.0 [facility] Sodium [Moles/volume] in Ser um or PlasmaOrdered By: Zo Serrano on 05-22-2023 Sodium [Moles/Vol] 135 mmol/L 136-145 [facility] Urea nitrogen [Mass/volume] in Serum or PlasmaOrdered By: Zo Serrano on 05-22-2023 Urea nitrogen [Mass/Vol] 63 mg/dL 7-25 [facility] WBC Auto (Bld) [#/Vol]Ordere d By: Zo Serrano on 05-22-2023 WBC (Bld) [#/Vol] 17.7 10*3/uL 4.1-10.[address] [facility] Basophils Auto (Bld) [#/Vol] Ordered By: Sumit Madrid on 08-24-2022 Basophils (Bld) [#/Vol] 0.1 10*3/uL 0.0-0.2 [facility] Basophils/100 WBC Auto (Bld) Ordered By: Sumit Madrid on 08-24-2022 Basophils/100 WBC (Bld) 1.0 % . [facility] Creatinine and Glomerular fi ltration rate.predicted panel (S/P/Bld)Ordered By: Sumit Madrid on 08-24-2022 Creatinine [Mass/Vol] 9.20 mg/dL 0.64-1.27 [facility] Eosinophils Auto (Bld) [#/Vo l]Ordered By: Sumit Madrid on 08-24-2022 Eosinophils (Bld) [#/Vol] 0.4 10*3/uL 0.0-0.45 [facility] Eosinophils/100 WBC Auto (Bl d)Ordered By: Sumit Madrid on 08-24-2022 Eosinophils/100 WBC (Bld) 5.6 % . [facility] Erythrocyte distribution wid th Auto (RBC) [Ratio]Ordered By: Sumit Madrid on 08-24-2022 Erythrocyte distribution width (RBC) [Ratio] 12.9 % 12.0-14.8 [facility] Estimated glomerular filtrat ion rate (GFR) non- AmericanOrdered By: Sumit Madrid on 08-24-2022 GFR/1.73 sq M.predicted among non-blacks MDRD (S/P/Bld) [Vol rate/Area] 6 mL/Min [facility] Hematocrit Auto (Bld) [Volum e fraction]Ordered By: Sumit Madrid on 08-24-2022 Hematocrit (Bld) [Volume fraction] 40.3 % 38.8-50.0 [facility] Hemoglobin [Mass/volume] in BloodOrdered By: Sumit Madrid on 08-24-2022 Hemoglobin (Bld) [Mass/Vol] 13.5 g/dL 13.0-17.0 [facility] - Hematology and Cell countsOrdered By: Sumit Madrid on 08-24-2022 Nucleated RBC/100 WBC (Bld) [Ratio] 0.0 % 0-0.5 [facility] Leukocytes [#/volume] in Blo od by Automated countOrdered By: Sumit Madrid on 08-24-2022 WBC (Bld) [#/Vol] 7.9 10*3/uL 4.5-11.0 [facility] Lymphocytes Auto (Bld) [#/Vo l]Ordered By: Sumit Madrid on 08-24-2022 Lymphocytes (Bld) [#/Vol] 1.1 10*3/uL 1.00-4.8 [facility] Lymphocytes/100 WBC Auto (Bl d)Ordered By: Sumit Madrid on 08-24-2022 Lymphocytes/100 WBC (Bld) 13.8 % . [facility] MCH Auto (RBC) [Entitic mass ]Ordered By: Sumit Madrid on 08-24-2022 MCH (RBC) [Entitic mass] 35.9 pg 27.5-35.2 [facility] MCHC Auto (RBC) [Mass/Vol]Or dered By: Sumit Madrid on 08-24-2022 MCHC (RBC) [Mass/Vol] 33.5 g/dL 32.5-35.6 [facility] MCV Auto (RBC) [Entitic vol] Ordered By: Sumit Madrid on 08-24-2022 MCV (RBC) [Entitic vol] 107.3 fL 83.5-101 [facility] Monocytes Auto (Bld) [#/Vol] Ordered By: Sumit Madrid on 08-24-2022 Monocytes (Bld) [#/Vol] 0.7 10*3/uL 0.0-0.8 [facility] Monocytes/100 WBC Auto (Bld) Ordered By: Sumit Madrid on 08-24-2022 Monocytes/100 WBC (Bld) 9.3 % . [facility] Neutrophils Auto (Bld) [#/Vo l]Ordered By: Sumit Madrid on 08-24-2022 Neutrophils (Bld) [#/Vol] 5.6 10*3/uL 1.8-7.7 [facility] Neutrophils/100 WBC Auto (Bl d)Ordered By: Sumit Madrid on 08-24-2022 Neutrophils/100 WBC (Bld) 70.3 % . [facility] No Panel InformationOrdered By: Sumit Madrid on 08-24-2022 Estimated GFR () 7 mL/Min [facility] Comment on above: GFR estimated refere nce range: According to KDOQI guidelines, <60 ml/min/1.73m2 is sufficient to diagnose a patient with chronic kidney disease. Pharmacy Creatinine Clearance (Chem 10.81 [facility] Platelet mean volume Auto (B ld) [Entitic vol]Ordered By: Sumit Madrid on 08-24-2022 Platelet mean volume (Bld) [Entitic vol] 7.7 fL 6.6-10.1 [facility] Platelets Auto (Bld) [#/Vol] Ordered By: Sumit Madrid on 08-24-2022 Platelets (Bld) [#/Vol] 289 10*3/uL 150-450 [facility] RBC Auto (Bld) [#/Vol]Ordere d By: Sumit Madrid on 08-24-2022 RBC (Bld) [#/Vol] 3.75 10*6/uL 3.90-5.[address] [facility] Serum or plasma anion gap de terminationOrdered By: Sumit Madrid on 08-24-2022 Anion gap [Moles/Vol] 18.8 mmol/L 6.0-15.0 [facility] Serum or plasma calcium cande urement (mass/volume)Ordered By: Sumit Madrid on 08-24-2022 Calcium [Mass/Vol] 9.5 mg/dL 8.2-10.2 [facility] Serum or plasma chloride rose marie surement (moles/volume)Ordered By: Sumit Madrid on 08-24-2022 Chloride [Moles/Vol] 94 mmol/L 95-114 [facility] Serum or plasma glucose cande urement (mass/volume)Ordered By: Sumit Mardid on 08-24-2022 Glucose [Mass/Vol] 94 mg/dL 70-100 [facility] Comment on above: ADA recommended refe rence rangeRandom Glucose Reference Range is dependent on time and content of last meal. Glucose of more than 200 mg/dL in a nonstressed, ambulatory subject supports the diagnosis of Diabetes Mellitus. Serum or plasma potassium me asurement (moles/volume)Ordered By: Sumit Madrid on 08-24-2022 Potassium [Moles/Vol] 5.2 mmol/L 3.5-5.1 [facility] Serum or plasma sodium measu rement (moles/volume)Ordered By: Sumit Madrid on 08-24-2022 Sodium [Moles/Vol] 133 mmol/L 136-146 [facility] Serum or plasma total carbon dioxide measurement (moles/volume)Ordered By: Sumit Madrid on 08-24-2022 CO2 [Moles/Vol] 25.4 mmol/L 22.0-30.[address] [facility] Serum or plasma urea nitroge n measurement (mass/volume)Ordered By: Sumit Madrid on 08-24-2022 Urea nitrogen [Mass/Vol] 31 mg/dL 07-07 [facility] COVID-19 SOFIAOrdered By: Aron Short on 08-23-2022 SARS-CoV+SARS-CoV-2 (COVID-19) Ag IA.rapid Ql (Resp) Negative Negative [facility] Comment on above: This is a duplicate [facility] SARS Antigen (VANIA) result to be used for statistical tracking purpose only. No Panel InformationOrdered By: Gerber Short on 08-23-2022 SARS Antigen (LFIA) [facility] POTASSIUMon 08-18-2022 Potassium [Moles/Vol] 5.8 mmol/L Critically high 3.5-5.1 [facility] Comment on above: Performed By: #### C BC #### [facility] [address] [place] [address] Dr. Karen Santos LIPID PROFILEon 08-07-2022 CHOL-HDL RATIO NORM SEE BELOW Normal [facility] Comment on above: Result Comment: 3.3 - 4.4 LOW RISK 4.4 - 7.1 AVERAGE RISK 7.1 - 11.0 MODERATE RISK >11.0 HIGH RISK Performed By: #### C BC #### [facility] [address] [address] [address] Karen Santos Cholesterol [Mass/Vol] 116 mg/dL Normal <=200 Th [facility] Comment on above: Performed By: #### C BC #### [facility] [address] [address] [address] Karen Santos Cholesterol in HDL [Mass/Vol] 34 mg/dL Critically low 40-60 [facility] Comment on above: Performed By: #### C BC #### [facility] [address] [address] [address] Karen Santos Cholesterol in LDL [Mass/Vol] 47.4 mg/dL Normal [facility] Comment on above: Performed By: #### C BC #### [facility] [address] [place] [address] Dr. Karen Santos Cholesterol.total/Chol esterol in HDL [Mass ratio] 3.4 {ratio} Normal [facility] Comment on above: Performed By: #### C BC #### [facility] [address] [address] [address] Karen Santos HDL NORMAL > or = 60 mg/dl - LO W CARDIOVASCULAR RISK <40 mg/dl - HIGH CARDIOVASCULAR RISK Normal [facility] Comment on above: Performed By: #### C BC #### [facility] [address] [address] [address] Karen Santos LDL CALC NORMAL SEE BELOW Normal [facility] Comment on above: Result Comment: <100 mg/dl OPTIMAL 100 - 129 mg/dl NEAR OR ABOVE OPTIMAL 130 - 159 mg/dl BORDERLINE HIGH 160 - 189 mg/dl HIGH >190 mg/dl VERY HIGH Performed By: #### C BC #### [facility] [address] [address] [address] Karen Santos Triglyceride [Mass/Vol] 173 mg/dL Critically high <=150 [facility] Comment on above: Performed By: #### C BC #### [facility] [address] [address] [address] Karen Santos VLDL CALC 34.6 mg/dL Normal [facility] Comment on above: Performed By: #### C BC #### [facility] [address] [address] [address] Karen Santos POTASSIUMon 08-04-2022 Potassium [Moles/Vol] 5.0 mmol/L Normal 3.5-5.1 [facility] Comment on above: Performed By: #### C BC #### [facility] [address] [address] [address] Karen Santos Basophils Auto (Bld) [#/Vol] Ordered By: Luis Carlos Amaro on 07-11-2022 Basophils (Bld) [#/Vol] 0.1 10*3/uL 0.0-0.2 [facility] Basophils/100 WBC Auto (Bld) Ordered By: Luis Carlos Amaro on 07-11-2022 Basophils/100 WBC (Bld) 0.6 % . [facility] Blood hemoglobin measurement (mass/volume)Ordered By: Luis Carlos Amaro on 07-11-2022 Hemoglobin (Bld) [Mass/Vol] 10.6 g/dL 13.0-17.0 [facility] Blood leukocytes automated c ount (number/volume)Ordered By: Luis Carlos Amaro on 07-11-2022 WBC (Bld) [#/Vol] 8.9 10*3/uL 4.5-11.0 [facility] Blood polychromasia detectio n by light microscopyOrdered By: Luis aCrlos Amaro on 07-11-2022 Polychromasia LM Ql (Bld) Slight [facility] Creatinine and Glomerular fi ltration rate.predicted panel (S/P/Bld)Ordered By: Luis Carlos Amaro on 07-11-2022 Creatinine [Mass/Vol] 7.92 mg/dL 0.64-1.27 [facility] Eosinophils Auto (Bld) [#/Vo l]Ordered By: Luis Carlos Amaro on 07-11-2022 Eosinophils (Bld) [#/Vol] 0.2 10*3/uL 0.0-0.45 [facility] Eosinophils/100 WBC Auto (Bl d)Ordered By: Luis Carlos Amaro on 07-11-2022 Eosinophils/100 WBC (Bld) 1.9 % . [facility] Erythrocyte distribution wid th Auto (RBC) [Ratio]Ordered By: Luis Carlos Amaro on 07-11-2022 Erythrocyte distribution width (RBC) [Ratio] 14.5 % 12.0-14.8 [facility] Estimated glomerular filtrat ion rate (GFR) non- AmericanOrdered By: Luis Carlos Amaro on 07-11-2022 GFR/1.73 sq M.predicted among non-blacks MDRD (S/P/Bld) [Vol rate/Area] 7 mL/Min [facility] Hematocrit Auto (Bld) [Volum e fraction]Ordered By: Luis Carlos Amaro on 07-11-2022 Hematocrit (Bld) [Volume fraction] 32.0 % 38.8-50.0 [facility] - Hematology and Cell countsOrdered By: Luis Carlos Amaro on 07-11-2022 Nucleated RBC/100 WBC (Bld) [Ratio] 0.0 % 0-0.5 [facility] Lymphocytes Auto (Bld) [#/Vo l]Ordered By: Luis Carlos Amaro on 07-11-2022 Lymphocytes (Bld) [#/Vol] 0.9 10*3/uL 1.00-4.8 [facility] Lymphocytes/100 WBC Auto (Bl d)Ordered By: Luis Carlos Amaro on 07-11-2022 Lymphocytes/100 WBC (Bld) 10.1 % . [facility] MCH Auto (RBC) [Entitic mass ]Ordered By: Luis Carlos Amaro on 07-11-2022 MCH (RBC) [Entitic mass] 37.8 pg 27.5-35.2 [facility] MCHC Auto (RBC) [Mass/Vol]Or dered By: Luis Carols Amaro on 07-11-2022 MCHC (RBC) [Mass/Vol] 33.3 g/dL 32.5-35.6 [facility] MCV Auto (RBC) [Entitic vol] Ordered By: Luis Carlos Amaro on 07-11-2022 MCV (RBC) [Entitic vol] 113.5 fL 83.5-101 [facility] Macrocytes detectionOrdered By: Luis Carlos Amaro on 07-11-2022 Macrocytes Ql (Bld) Moderate [facility] Monocytes Auto (Bld) [#/Vol] Ordered By: Luis Carlos Amaro on 07-11-2022 Monocytes (Bld) [#/Vol] 0.6 10*3/uL 0.0-0.8 [facility] Monocytes/100 WBC Auto (Bld) Ordered By: Luis Carlos Amaro on 07-11-2022 Monocytes/100 WBC (Bld) 7.0 % . [facility] Neutrophils Auto (Bld) [#/Vo l]Ordered By: Luis Carlos Amaro on 07-11-2022 Neutrophils (Bld) [#/Vol] 7.1 10*3/uL 1.8-7.7 [facility] Neutrophils/100 WBC Auto (Bl d)Ordered By: Luis Carlos Amaro on 07-11-2022 Neutrophils/100 WBC (Bld) 80.4 % . [facility] No Panel InformationOrdered By: Luis Carlos Amaro on 07-11-2022 Estimated GFR () 9 mL/Min [facility] Comment on above: GFR estimated refere nce range: According to KDOQI guidelines, <60 ml/min/1.73m2 is sufficient to diagnose a patient with chronic kidney disease. Pharmacy Creatinine Clearance (Chem 12.57 [facility] Platelet Estimate Normal Normal [facility] Platelet Morphology Comment Normal Normal [facility] Poikilocytosis Slight [facility] Ovalocyte detectionOrdered B y: Luis Carlos Amaro on 07-11-2022 Ovalocytes LM Ql (Bld) Slight [facility] Platelet mean volume Auto (B ld) [Entitic vol]Ordered By: Luis Carlos Amaro on 07-11-2022 Platelet mean volume (Bld) [Entitic vol] 7.3 fL 6.6-10.1 [facility] Platelets Auto (Bld) [#/Vol] Ordered By: Luis Carlos Amaro on 07-11-2022 Platelets (Bld) [#/Vol] 304 10*3/uL 150-450 [facility] RBC Auto (Bld) [#/Vol]Ordere d By: Luis Carlos Amaro on 07-11-2022 RBC (Bld) [#/Vol] 2.82 10*6/uL 3.90-5.[address] [facility] RBC morphologyOrdered By: Claudette Amaro on 07-11-2022 RBC morphology finding Nom (Bld) N/A [facility] Serum or plasma anion gap de terminationOrdered By: Luis Carlos Amaro on 07-11-2022 Anion gap [Moles/Vol] 17.3 mmol/L 6.0-15.0 [facility] Serum or plasma calcium cande urement (mass/volume)Ordered By: Luis Carlos Amaro on 07-11-2022 Calcium [Mass/Vol] 9.2 mg/dL 8.2-10.2 [facility] Serum or plasma chloride rose marie surement (moles/volume)Ordered By: Luis Carlos Amaro on 07-11-2022 Chloride [Moles/Vol] 92 mmol/L 95-114 [facility] Serum or plasma glucose cande urement (mass/volume)Ordered By: Luis Carlos Amaro on 07-11-2022 Glucose [Mass/Vol] 87 mg/dL 70-100 [facility] Comment on above: ADA recommended refe rence rangeRandom Glucose Reference Range is dependent on time and content of last meal. Glucose of more than 200 mg/dL in a nonstressed, ambulatory subject supports the diagnosis of Diabetes Mellitus. Serum or plasma potassium me asurement (moles/volume)Ordered By: Luis Carlos Amaro on 07-11-2022 Potassium [Moles/Vol] 4.0 mmol/L 3.5-5.1 [facility] Serum or plasma sodium measu rement (moles/volume)Ordered By: Luis Carlos Amaro on 07-11-2022 Sodium [Moles/Vol] 134 mmol/L 136-146 [facility] Serum or plasma total carbon dioxide measurement (moles/volume)Ordered By: Luis Carlos Amaro on 07-11-2022 CO2 [Moles/Vol] 28.7 mmol/L 22.0-30.[address] [facility] Serum or plasma urea nitroge n measurement (mass/volume)Ordered By: Luis Carlos Amaro on 07-11-2022 Urea nitrogen [Mass/Vol] 19 mg/dL 9-23 [facility] COVID-19 Positive/NegativeOr dered By: Patrice Levine on 07-10-2022 SARS-CoV-2 (COVID-19) N gene CHARLES+probe Ql (Resp) Negative Negative [facility] Comment on above: Testing for SARS-CoV -2 by RT-PCRThis test was developed and its performance characteristics determined by [employer] and validated at the [facility]. This test has not been FDA [...] retention of stool. Electronically authenticated by: SUBHASH LEDBETTER Date: 2022-06-09 22:18 Normal [facility] CBC AUTO DIFFon 06-09-2022 BASO # 0.0 103/ul Normal 0.0-0.1 [facility] Comment on above: Performed By: #### C BC #### [facility] [address] [place] [address] Dr. Karen Santos Basophils/100 WBC (Bld) 0.1 % Critically low 0.2-2.0 [facility] Comment on above: Performed By: #### C BC #### [facility] [address] [place] [address] Dr. Karen Santos EO # 0.1 103/ul Normal 0.0-0.7 [facility] Comment on above: Performed By: #### C BC #### [facility] [address] [address] [address] Karen Santos Eosinophils/100 WBC (Bld) 0.3 % Critically low 0.9-7.0 [facility] Comment on above: Performed By: #### C BC #### [facility] [address] [place] [address] Dr. Karen Santos Erythrocyte distribution width (RBC) [Ratio] 15.1 % Critically high 11.0-15.0 [facility] Comment on above: Performed By: #### C BC #### [facility] [address] [address] [address] Karen Santos Hematocrit (Bld) [Volume fraction] 26.4 % Critically low 42.0-54.0 [facility] Comment on above: Performed By: #### C BC #### [facility] [address] [place] [address] Dr. Karen Santos Hemoglobin (Bld) [Mass/Vol] 9.0 g/dL Critically low 14.0-18.0 [facility] Comment on above: Performed By: #### C BC #### [facility] [address] [place] [address] Dr. Karen Santos IG # 0.44 10e3/ul Critically high 0.00-0.03 [facility] Comment on above: Performed By: #### C BC #### [facility] [address] [place] [address] Dr. Karen Santos IG % 2.1 % Critically high 0.0-0.5 [facility] Comment on above: Performed By: #### C BC #### [facility] [address] [place] [address] Dr. Karen Santos LYMPH # 1.5 103/ul Normal 1.2-3.8 [facility] Comment on above: Performed By: #### C BC #### [facility] [address] [place] [address] Dr. Karen Santos Lymphocytes/100 WBC (Bld) 7.3 % Critically low 20.5-60.0 [facility] Comment on above: Performed By: #### C BC #### [facility] [address] [place] [address] Dr. Karen Santos MANUAL DIFF REQ NO Normal [facility] Comment on above: Performed By: #### C BC #### [facility] [address] [place] [address] Dr. Karen Santos MCH (RBC) [Entitic mass] 37.0 pg Critically high 25.9-34.0 [facility] Comment on above: Performed By: #### C BC #### [facility] [address] [address] [address] Karen Santos MCHC (RBC) [Mass/Vol] 34.1 g/dL Normal 29.9-35.2 [facility] Comment on above: Performed By: #### C BC #### [facility] [address] [address] [address] Karen Santos MCV (RBC) [Entitic vol] 108.6 fL Critically high 80.0-94.0 [facility] Comment on above: Performed By: #### C BC #### [facility] [address] [address] [address] Karen Santos MONO # 1.0 103/ul Critically high 0.3-0.8 [facility] Comment on above: Performed By: #### C BC #### [facility] [address] [place] [address] Dr. Karen Santos Monocytes/100 WBC (Bld) 5.0 % Normal 1.7-12.0 [facility] Comment on above: Performed By: #### C BC #### [facility] [address] [address] [address] Karen Santos NEUT # 17.7 103/ul Critically high 1.4-6.5 [facility] Comment on above: Performed By: #### C BC #### [facility] [address] [place] [address] Dr. Karen Santos Neutrophils/100 WBC (Bld) 85.2 % Critically high 43.0-75.0 [facility] Comment on above: Performed By: #### C BC #### [facility] [address] [address] [address] Karen Santos Platelet mean volume (Bld) [Entitic vol] 9.5 fL Normal 9.5-13.5 [facility] Comment on above: Performed By: #### C BC #### [facility] [address] [address] [address] Karen Santos PLT 280 103/ul Normal 150-450 [facility] Comment on above: Performed By: #### C BC #### [facility] [address] [place], [place] [address] Dr. Karen Santos RBC 2.43 106/ul Critically low 4.70-6.10 [facility] Comment on above: Performed By: #### C BC #### [facility] [address] [place], [place] [address] Dr. Karen Santos WBC 20.7 103/ul Critically high 4.0-11.0 [facility] Comment on above: Performed By: #### C BC #### [facility] [address] [address] [address] Karen Santos PROF 14(COMP METB)on 022 Albumin [Mass/Vol] 3.5 g/dL Normal 3.4-5.0 [facility] Comment on above: Performed By: #### C MP ####[facility] [address] [address]DrEva Santos Albumin/Globulin [Mass ratio] 0.9 {ratio} Normal [facility] Comment on above: Performed By: #### C MP ####[facility] [address] [address]Dr. Karen Santos ALP [Catalytic activity/Vol] 93 U/L Normal 46-116 [facility] Comment on above: Performed By: #### C MP ####[facility] [address] [address]Dr. Karen Santos ALT [Catalytic activity/Vol] 11 U/L Critically low 16-63 [facility] Comment on above: Performed By: #### C MP ####[facility] [address] [id number]. Karen Santos Anion gap [Moles/Vol] 22.3 mmol/L Normal [facility] Comment on above: Performed By: #### C MP ####[facility] [address] [id number]. Karen Santos AST [Catalytic activity/Vol] 15 U/L Normal 15-37 [facility] Comment on above: Performed By: #### C MP ####[facility] [address] [phone]. Karen Santos Bilirubin [Mass/Vol] 0.4 mg/dL Normal 0.2-1.0 [facility] Comment on above: Performed By: #### C MP ####[facility] [address] [phone]. Karen Santos Calcium [Mass/Vol] 8.8 mg/dL Normal 8.5-10.1 [facility] Comment on above: Performed By: #### C MP ####[facility] [address] [place], [place] [address]Dr. Karen Santos Chloride [Moles/Vol] 90 mmol/L Critically low 98-107 [facility] Comment on above: Performed By: #### C MP ####[facility] [address] [place], [place] [address]Dr. Karen Santos CO2 [Moles/Vol] 22.0 mmol/L Normal 21.0-32.0 [facility] Comment on above: Performed By: #### C MP ####[facility] [address] [place], [place] [address]Dr. Karen Santos Creatinine [Mass/Vol] 13.37 mg/dL Critically high 0.70-1.3 0 [facility] Comment on above: Result Comment: unkn own if done Performed By: #### C MP ####[facility] [address] [place], [place] [address]Dr. Karen Santos EGFR-AF [place] 5 mL/min/1.73m2 Critically low >=60 [facility] Comment on above: Performed By: #### C MP ####[facility] [address] [address]Dr. Karen Santos EGFR-NON AF [place] 4 mL/min/1.73m2 Critically low >=60 [facility] Comment on above: Performed By: #### C MP ####[facility] [address] [place], [place] [id number]. Karen Santos Globulin (S) [Mass/Vol] 3.7 g/dL Normal [facility] Comment on above: Performed By: #### C MP ####[facility] [address] [address]Dr. Karen Santos Glucose [Mass/Vol] 90 mg/dL Normal 74-106 [facility] Comment on above: Performed By: #### C MP ####[facility] [address] [phone]. Karen Santos Potassium [Moles/Vol] 5.3 mmol/L Critically high 3.5-5.1 [facility] Comment on above: Performed By: #### C MP ####[facility] [address] [address]Dr. Karen Santos Protein [Mass/Vol] 7.2 g/dL Normal 6.4-8.2 [facility] Comment on above: Performed By: #### C MP ####[facility] [address] [address]Dr. Karen Santos Sodium [Moles/Vol] 129 mmol/L Critically low 136-145 [facility] Comment on above: Performed By: #### C MP ####[facility] [address] [address]Dr. Karen Santos Urea nitrogen [Mass/Vol] 53.0 mg/dL Critically high 7.0-18.0 [facility] Comment on above: Performed By: #### C MP ####[facility] [address] [phone]. Karen Santos Urea nitrogen/Creatinine [Mass ratio] 3.9 mg/mg Normal [facility] Comment on above: Performed By: #### C MP ####[facility] [address] [phone] Santos CBC AUTO DIFFon 02-28-2022 BASO # 0.0 103/ul Normal 0.0-0.1 [facility] Comment on above: Performed By: #### C BC #### [facility] [address] [address] [address] Karen Santos Basophils/100 WBC (Bld) 0.4 % Normal 0.2-2.0 [facility] Comment on above: Performed By: #### C BC #### [facility] [address] [address] [address] Karen Santos EO # 0.2 103/ul Normal 0.0-0.7 [facility] Comment on above: Performed By: #### C BC #### [facility] [address] [address] [address] Karen Santos Eosinophils/100 WBC (Bld) 1.4 % Normal 0.9-7.0 [facility] Comment on above: Performed By: #### C BC #### [facility] [address] [address] [address] Karen Santos Erythrocyte distribution width (RBC) [Ratio] 12.4 % Normal 11.0-15.0 [facility] Comment on above: Performed By: #### C BC #### [facility] [address] [place] [address] Dr. Karen Santos Hematocrit (Bld) [Volume fraction] 40.7 % Critically low 42.0-54.0 [facility] Comment on above: Performed By: #### C BC #### [facility] [address] [place] [address] Dr. Karen Santos Hemoglobin (Bld) [Mass/Vol] 14.0 g/dL Normal 14.0-18.0 [facility] Comment on above: Performed By: #### C BC #### [facility] [address] [address] [address] Karen Santos IG # 0.06 10e3/ul Critically high 0.00-0.03 [facility] Comment on above: Performed By: #### C BC #### [facility] [address] [address] [address] Karen Santos IG % 0.6 % Critically high 0.0-0.5 [facility] Comment on above: Performed By: #### C BC #### [facility] [address] [place] [address] Dr. Karen Santos LYMPH # 0.9 103/ul Critically low 1.2-3.8 [facility] Comment on above: Performed By: #### C BC #### [facility] [address] [address] [address] Karen Santos Lymphocytes/100 WBC (Bld) 8.0 % Critically low 20.5-60.0 [facility] Comment on above: Performed By: #### C BC #### [facility] [address] [place] [address] Dr. Karen Santos MANUAL DIFF REQ NO Normal [facility] Comment on above: Performed By: #### C BC #### [facility] [address] [address] [address] Karen Santos MCH (RBC) [Entitic mass] 35.5 pg Critically high 25.9-34.0 [facility] Comment on above: Performed By: #### C BC #### [facility] [address] [place] [address] Dr. Karen Santos MCHC (RBC) [Mass/Vol] 34.4 g/dL Normal 29.9-35.2 [facility] Comment on above: Performed By: #### C BC #### [facility] [address] [place] [address] Dr. Karen Santos MCV (RBC) [Entitic vol] 103.3 fL Critically high 80.0-94.0 [facility] Comment on above: Performed By: #### C BC #### [facility] [address] [place] [address] Dr. Karen Santos MONO # 0.5 103/ul Normal 0.3-0.8 [facility] Comment on above: Performed By: #### C BC #### [facility] [address] [place] [address] Dr. Karen Santos Monocytes/100 WBC (Bld) 5.0 % Normal 1.7-12.0 [facility] Comment on above: Performed By: #### C BC #### [facility] [address] [place] [address] Dr. Karen Santos NEUT # 9.1 103/ul Critically high 1.4-6.5 [facility] Comment on above: Performed By: #### C BC #### [facility] [address] [address] [address] Karen Santos Neutrophils/100 WBC (Bld) 84.6 % Critically high 43.0-75.0 [facility] Comment on above: Performed By: #### C BC #### [facility] [address] [address] [address] Karen Santos Platelet mean volume (Bld) [Entitic vol] 9.1 fL Critically low 9.5-13.5 [facility] Comment on above: Performed By: #### C BC #### [facility] [address] [address] [address] Karen Santos PLT 350 103/ul Normal 150-450 [facility] Comment on above: Performed By: #### C BC #### [facility] [address] [place] [address] Dr. Karen Santos RBC 3.94 106/ul Critically low 4.70-6.10 [facility] Comment on above: Performed By: #### C BC #### [facility] [address] [address] [address] Karen Santos WBC 10.7 103/ul Normal 4.0-11.0 [facility] Comment on above: Performed By: #### C BC #### [facility] [address] [place] [address] Dr. Karen Santos PROF CHEM 8 (BAS METB)on Anion gap [Moles/Vol] 12.4 mmol/L Normal [facility] Comment on above: Performed By: #### C BC #### [facility] [address] [place] [address] Dr. Karen Santos Calcium [Mass/Vol] 9.5 mg/dL Normal 8.5-10.1 [facility] Comment on above: Performed By: #### C BC #### [facility] [address] [address] [address] Karen Santos Chloride [Moles/Vol] 95 mmol/L Critically low 98-107 [facility] Comment on above: Performed By: #### C BC #### [facility] [address] [address] [address] Karen Santos CO2 [Moles/Vol] 31.7 mmol/L Normal 21.0-32.0 [facility] Comment on above: Performed By: #### C BC #### [facility] [address] [address] [address] Karen Santos Creatinine [Mass/Vol] 2.39 mg/dL Critically high 0.70-1.30 [facility] Comment on above: Performed By: #### C BC #### [facility] [address] [address] [address] Karen Santos EGFR-AF [place] 35 mL/min/1.73m2 Critically low >=60 [facility] Comment on above: Performed By: #### C BC #### [facility] [address] [place] [address] Dr. Karen Santos EGFR-NON AF [place] 29 mL/min/1.73m2 Critically low >=60 [facility] Comment on above: Performed By: #### C BC #### [facility] [address] [address] [address] Karen Santos Glucose [Mass/Vol] 105 mg/dL Normal 74-106 [facility] Comment on above: Performed By: #### C BC #### [facility] [address] [address] [address] Karen Santos Potassium [Moles/Vol] 4.1 mmol/L Normal 3.5-5.1 [facility] Comment on above: Performed By: #### C BC #### [facility] [address] [address] [address] Karen Santos Sodium [Moles/Vol] 135 mmol/L Critically low 136-145 [facility] Comment on above: Performed By: #### C BC #### [facility] [address] [address] [address] Karen Santos Urea nitrogen [Mass/Vol] 15.0 mg/dL Normal 7.0-18.0 [facility] Comment on above: Performed By: #### C BC #### [facility] [address] [address] [address] Karen Santos Urea nitrogen/Creatinine [Mass ratio] 6.3 mg/mg Normal [facility] Comment on above: Performed By: #### C BC #### [facility] [address] [address] [address] Karen Santos CBC AUTO DIFFon 02-24-2022 BASO # 0.1 103/ul Normal 0.0-0.1 [facility] Comment on above: Performed By: #### C BC ####[facility] [address] [address]Dr. Karen Santos Basophils/100 WBC (Bld) 0.6 % Normal 0.2-2.0 [facility] Comment on above: Performed By: #### C BC ####[facility] [address] [address]DrEva Santos EO # 0.3 103/ul Normal 0.0-0.7 [facility] Comment on above: Performed By: #### C BC ####[facility] [address] [address]DrEva Santos Eosinophils/100 WBC (Bld) 2.6 % Normal 0.9-7.0 [facility] Comment on above: Performed By: #### C BC ####[facility] [address] [phone] Santos Erythrocyte distribution width (RBC) [Ratio] 12.5 % Normal 11.0-15.0 [facility] Comment on above: Performed By: #### C BC ####[facility] [address] [phone] Santos Hematocrit (Bld) [Volume fraction] 37.1 % Critically low 42.0-54.0 [facility] Comment on above: Performed By: #### C BC ####[facility] [address] [phone] Santos Hemoglobin (Bld) [Mass/Vol] 12.8 g/dL Critically low 14.0-18.0 [facility] Comment on above: Performed By: #### C BC ####[facility] [address] [phone] Santos IG # 0.28 10e3/ul Critically high 0.00-0.03 [facility] Comment on above: Performed By: #### C BC ####[facility] [address] [phone] Santos IG % 2.2 % Critically high 0.0-0.5 [facility] Comment on above: Performed By: #### C BC ####[facility] [address] [address]DrEva Santos LYMPH # 1.0 103/ul Critically low 1.2-3.8 [facility] Comment on above: Performed By: #### C BC ####[facility] [address] [phone] Santos Lymphocytes/100 WBC (Bld) 7.6 % Critically low 20.5-60.0 [facility] Comment on above: Performed By: #### C BC ####[facility] [address] [phone] Santos MANUAL DIFF REQ NO Normal [facility] Comment on above: Performed By: #### C BC ####[facility] [address] [phone] Santos MCH (RBC) [Entitic mass] 35.9 pg Critically high 25.9-34.0 [facility] Comment on above: Performed By: #### C BC ####[facility] [address] [phone] Santos MCHC (RBC) [Mass/Vol] 34.5 g/dL Normal 29.9-35.2 [facility] Comment on above: Performed By: #### C BC ####[facility] [address] [phone] Santos MCV (RBC) [Entitic vol] 103.9 fL Critically high 80.0-94.0 [facility] Comment on above: Performed By: #### C BC ####[facility] [address] [phone]. Karen Santos MONO # 0.8 103/ul Normal 0.3-0.8 [facility] Comment on above: Performed By: #### C BC ####[facility] [address] [phone]. Karen Santos Monocytes/100 WBC (Bld) 6.6 % Normal 1.7-12.0 [facility] Comment on above: Performed By: #### C BC ####[facility] [address] [phone]. Karen Santos NEUT # 10.1 103/ul Critically high 1.4-6.5 [facility] Comment on above: Performed By: #### C BC ####[facility] [id number] [id number]. Karen Santos Neutrophils/100 WBC (Bld) 80.4 % Critically high 43.0-75.0 [facility] Comment on above: Performed By: #### C BC ####[facility] [id number] [id number]. Karen Santos Platelet mean volume (Bld) [Entitic vol] 9.5 fL Normal 9.5-13.5 [facility] Comment on above: Performed By: #### C BC ####[facility] [id number] [id number]. Karen Santos PLT 331 103/ul Normal 150-450 [facility] Comment on above: Performed By: #### C BC ####[facility] [id number] [id number]. Karen Santos RBC 3.57 106/ul Critically low 4.70-6.10 [facility] Comment on above: Performed By: #### C BC ####[facility] [id number] [id number]. Karen Santos WBC 12.5 103/ul Critically high 4.0-11.0 [facility] Comment on above: Performed By: #### C BC ####[facility] [id number] [address]Dr. Karen Santos PROF CHEM 8 (BAS METB)on Anion gap [Moles/Vol] 12.6 mmol/L Normal [facility] Comment on above: Performed By: #### M G, RENAL #### [facility] [address] [address] [address] Karen Santos Calcium [Mass/Vol] 9.5 mg/dL Normal 8.5-10.1 [facility] Comment on above: Performed By: #### M G, RENAL #### [facility] [address] [place] [address] Dr. Karne Santos Chloride [Moles/Vol] 95 mmol/L Critically low 98-107 [facility] Comment on above: Performed By: #### M G, RENAL #### [facility] [address] [place] [address] Dr. Karen Santos CO2 [Moles/Vol] 28.5 mmol/L Normal 21.0-32.0 [facility] Comment on above: Performed By: #### M G, RENAL #### [facility] [address] [place] [address] Dr. Karen Santos Creatinine [Mass/Vol] 1.70 mg/dL Critically high 0.70-1.30 [facility] Comment on above: Performed By: #### M G, RENAL #### [facility] [address] [place] [address] Dr. Karen Santos EGFR-AF [place]TH [place] 51 mL/min/1.73m2 Critically low >=60 [facility] Comment on above: Performed By: #### M G, RENAL #### [facility] [address] [place] [address] Dr. Karen Santos EGFR-NON AF [place] 42 mL/min/1.73m2 Critically low >=60 [facility] Comment on above: Performed By: #### M G, RENAL #### [facility] [address] [place] [address] Dr. Karen Santos Glucose [Mass/Vol] 111 mg/dL Critically high 74-106 T [facility] Comment on above: Performed By: #### M G, RENAL #### [facility] [address] [place] [address] Dr. Karen Santos Potassium [Moles/Vol] 3.1 mmol/L Critically low 3.5-5.1 [facility] Comment on above: Performed By: #### M Jaiden, RENAL #### [facility] [address] [place] [address] Dr. Karen Santos Sodium [Moles/Vol] 133 mmol/L Critically low 136-145 Th [facility] Comment on above: Performed By: #### M Jaiden, RENAL #### [facility] [address] [place] [address] Dr. Karen Santos Urea nitrogen [Mass/Vol] 8.0 mg/dL Normal 7.0-18.0 [facility] Comment on above: Performed By: #### Marcelo Hwang, RENAL #### [facility] [address] [place] [address] Dr. Karen Santos Urea nitrogen/Creatinine [Mass ratio] 4.7 mg/mg Normal [facility] Comment on above: Performed By: #### Marcelo Hwang, RENAL #### [facility] [address] [place] [address] Dr. Karen Santos TROPONIN, HIGH SENSITIVITYon 02-24-2022 HSTROP 10.3 pg/mL Normal 4.0-76.1 [facility] Comment on above: Result Comment: CUT- OFF POINTS HAVE BEEN ESTABLISHED BASED ON THE FOURTH UNIVERSAL DEFINITIONS OF MYOCARDIAL INFARCTION. THE UPPER REFERENCE LIMIT (URL) OF TROPONIN, DEFINED THE 99TH PERCENTILE OF cTnI DISTRIBUTION IN A REFERENCE POPULATION, HAS BEEN CONFIRMED THE DECISION THRESHOLD FOR [place] DIAGNOSIS. Performed By: #### M G, RENAL #### [facility] [address] [place] [address] Dr. Karen Santos CBC AUTO DIFFon 02-18-2022 BASO # 0.0 103/ul Normal 0.0-0.1 [facility] Comment on above: Performed By: #### Marcelo Hwang, RENAL #### [facility] [address] [place] [address] Dr. Karen Santos Basophils/100 WBC (Bld) 0.3 % Normal 0.2-2.0 [facility] Comment on above: Performed By: #### M G, RENAL #### [facility] [address] [place] [address] Dr. Karen Santos EO # 0.2 103/ul Normal 0.0-0.7 [facility] Comment on above: Performed By: #### M G, RENAL #### [facility] [address] [place] [address] Dr. Karen Santos Eosinophils/100 WBC (Bld) 1.5 % Normal 0.9-7.0 [facility] Comment on above: Performed By: #### M G, RENAL #### [facility] [address] [place] [address] Dr. Karen Santos Erythrocyte distribution width (RBC) [Ratio] 13.1 % Normal 11.0-15.0 [facility] Comment on above: Performed By: #### M G, RENAL #### [facility] [address] [place] [address] Dr. Karen Santos Hematocrit (Bld) [Volume fraction] 35.7 % Critically low 42.0-54.0 [facility] Comment on above: Performed By: #### M G, RENAL #### [facility] [address] [place] [address] Dr. Karen Santos Hemoglobin (Bld) [Mass/Vol] 12.1 g/dL Critically low 14.0-18.0 [facility] Comment on above: Performed By: #### M G, RENAL #### [facility] [address] [place] [address] Dr. Karen Santos IG # 0.07 10e3/ul Critically high 0.00-0.03 [facility] Comment on above: Performed By: #### M G, RENAL #### [facility] [address] [place] [address] Dr. Karen Santos IG % 0.6 % Critically high 0.0-0.5 [facility] Comment on above: Performed By: #### M G, RENAL #### [facility] [address] [address] [address] Karen Santos LYMPH # 1.2 103/ul Normal 1.2-3.8 [facility] Comment on above: Performed By: #### M G, RENAL #### [facility] [address] [address] [address] Karen Santos Lymphocytes/100 WBC (Bld) 11.1 % Critically low 20.5-60.0 [facility] Comment on above: Performed By: #### M G, RENAL #### [facility] [address] [address] [address] Karen Santos MANUAL DIFF REQ NO Normal [facility] Comment on above: Performed By: #### M G, RENAL #### [facility] [address] [place] [address] Dr. Karen Santos MCH (RBC) [Entitic mass] 35.9 pg Critically high 25.9-34.0 [facility] Comment on above: Performed By: #### M G, RENAL #### [facility] [address] [place] [address] Dr. Karen Santos MCHC (RBC) [Mass/Vol] 33.9 g/dL Normal 29.9-35.2 [facility] Comment on above: Performed By: #### M G, RENAL #### [facility] [address] [place] [address] Dr. Karen Santos MCV (RBC) [Entitic vol] 105.9 fL Critically high 80.0-94.0 [facility] Comment on above: Result Comment: 2+ m acrocytosis Performed By: #### M G, RENAL #### [facility] [address] [address] [address] Karen Santos MONO # 0.8 103/ul Normal 0.3-0.8 [facility] Comment on above: Performed By: #### M G, RENAL #### [facility] [address] [address] [address] Karen Santos Monocytes/100 WBC (Bld) 6.9 % Normal 1.7-12.0 [facility] Comment on above: Performed By: #### M G, RENAL #### [facility] [address] [place] [address] Dr. Karen Santos NEUT # 8.8 103/ul Critically high 1.4-6.5 [facility] Comment on above: Performed By: #### M G, RENAL #### [facility] [address] [place] [address] Dr. Karen Santos Neutrophils/100 WBC (Bld) 79.6 % Critically high 43.0-75.0 [facility] Comment on above: Performed By: #### M G, RENAL #### [facility] [address] [place] [address] Dr. Karen Santos Platelet mean volume (Bld) [Entitic vol] 9.3 fL Critically low 9.5-13.5 [facility] Comment on above: Performed By: #### M G, RENAL #### [facility] [address] [place] [address] Dr. Karen Santos PLT 272 103/ul Normal 150-450 [facility] Comment on above: Performed By: #### M G, RENAL #### [facility] [address] [place] [address] Dr. Karen Santos RBC 3.37 106/ul Critically low 4.70-6.10 [facility] Comment on above: Performed By: #### M G, RENAL #### [facility] [address] [place] [address] Dr. Karen Santos WBC 11.1 103/ul Critically high 4.0-11.0 [facility] Comment on above: Performed By: #### M G, RENAL #### [facility] [address] [place] [address] Dr. Karen Santos PROF 14(COMP METB)on 022 Albumin [Mass/Vol] 3.7 g/dL Normal 3.4-5.0 [facility] Comment on above: Performed By: #### C BC #### [facility] [address] [place] [address] Dr. Karen Santos Albumin/Globulin [Mass ratio] 1.1 {ratio} Normal [facility] Comment on above: Performed By: #### C BC #### [facility] [address] [place] [address] Dr. Karen Santos ALP [Catalytic activity/Vol] 110 U/L Normal 46-116 [facility] Comment on above: Performed By: #### C BC #### [facility] [address] [place] [address] Dr. Karen Santos ALT [Catalytic activity/Vol] 15 U/L Critically low 16-63 [facility] Comment on above: Performed By: #### C BC #### [facility] [address] [place] [address] Dr. Karen Santos Anion gap [Moles/Vol] 18.2 mmol/L Normal [facility] Comment on above: Performed By: #### C BC #### [facility] [address] [place] [address] Dr. Karen Santos AST [Catalytic activity/Vol] 9 U/L Critically low 15-37 [facility] Comment on above: Performed By: #### C BC #### [facility] [address] [place] [address] Dr. Karen Santos Bilirubin [Mass/Vol] 0.4 mg/dL Normal 0.2-1.0 [facility] Comment on above: Performed By: #### C BC #### [facility] [address] [place] [address] Dr. Karen Santos Calcium [Mass/Vol] 8.3 mg/dL Critically low 8.5-10.1 [facility] Comment on above: Performed By: #### C BC #### [facility] [address] [place] [address] Dr. Karen Santos Chloride [Moles/Vol] 88 mmol/L Critically low 98-107 [facility] Comment on above: Performed By: #### C BC #### [facility] [address] [place] [address] Dr. Karen Santos CO2 [Moles/Vol] 23.9 mmol/L Normal 21.0-32.0 [facility] Comment on above: Performed By: #### C BC #### [facility] [address] [address] [address] Karen Santos Creatinine [Mass/Vol] 8.30 mg/dL Critically high 0.70-1.30 [facility] Comment on above: Result Comment: repe ated Performed By: #### C BC #### [facility] [address] [address] [address] Karen Santos EGFR-AF [place] 8 mL/min/1.73m2 Critically low >=60 [facility] Comment on above: Performed By: #### C BC #### [facility] [address] [place] [address] Dr. Karen Santos EGFR-NON AF [place] 7 mL/min/1.73m2 Critically low >=60 [facility] Comment on above: Performed By: #### C BC #### [facility] [address] [place] [address] Dr. Karen Santos Globulin (S) [Mass/Vol] 3.4 g/dL Normal [facility] Comment on above: Performed By: #### C BC #### [facility] [address] [place] [address] Dr. Karen Santos Glucose [Mass/Vol] 109 mg/dL Critically high 74-106 T [facility] Comment on above: Performed By: #### C BC #### [facility] [address] [address] [address] Karen Santos Potassium [Moles/Vol] 3.1 mmol/L Critically low 3.5-5.1 [facility] Comment on above: Performed By: #### C BC #### [facility] [address] [address] [address] Karen Santos Protein [Mass/Vol] 7.1 g/dL Normal 6.4-8.2 [facility] Comment on above: Performed By: #### C BC #### [facility] [address] [address] [address] Karen Santos Sodium [Moles/Vol] 127 mmol/L Critically low 136-145 [facility] Comment on above: Performed By: #### C BC #### [facility] [address] [address] [address] Karen Santos Urea nitrogen [Mass/Vol] 48.0 mg/dL Critically high 7.0-18.0 [facility] Comment on above: Performed By: #### C BC #### [facility] [address] [address] [address] Karen Santos Urea nitrogen/Creatinine [Mass ratio] 5.8 mg/mg Normal [facility] Comment on above: Performed By: #### C BC #### [facility] [address] [address] [address] Karen Santos CARDIAC SRINIVASAN ADMITon 022 CK [Catalytic activity/Vol] 81 U/L Normal 39-308 [facility] Comment on above: Performed By: #### C BC #### [facility] [address] [place] [address] Dr. Karen Santos CK.MB [Mass/Vol] 1.75 ng/mL Normal <=3.60 [facility] Comment on above: Performed By: #### C BC #### [facility] [address] [place] [address] Dr. Karen Santos HSTROP 20.8 pg/mL Normal 4.0-76.1 [facility] Comment on above: Result Comment: CUT- OFF POINTS HAVE BEEN ESTABLISHED BASED ON THE FOURTH UNIVERSAL DEFINITIONS OF MYOCARDIAL INFARCTION. THE UPPER REFERENCE LIMIT (URL) OF TROPONIN, DEFINED THE 99TH PERCENTILE OF cTnI DISTRIBUTION IN A REFERENCE POPULATION, HAS BEEN CONFIRMED THE DECISION THRESHOLD FOR [place] DIAGNOSIS. Performed By: #### C BC #### [facility] [address] [address] [address] Karen Santos RUI 129 ng/mL Critically high 16-96 [facility] Comment on above: Performed By: #### C BC #### [facility] [address] [place] [address] Dr. Karen Santos CBC AUTO DIFFon 02-14-2022 BASO # 0.1 103/ul Normal 0.0-0.1 [facility] Comment on above: Performed By: #### C BC #### [facility] [address] [address] [address] Karen Santos Basophils/100 WBC (Bld) 0.4 % Normal 0.2-2.0 [facility] Comment on above: Performed By: #### C BC #### [facility] [address] [address] [address] Karen Santos EO # 0.1 103/ul Normal 0.0-0.7 [facility] Comment on above: Performed By: #### C BC #### [facility] [address] [address] [address] Karen Santos Eosinophils/100 WBC (Bld) 0.9 % Normal 0.9-7.0 [facility] Comment on above: Performed By: #### C BC #### [facility] [address] [address] [address] Karen Santos Erythrocyte distribution width (RBC) [Ratio] 12.6 % Normal 11.0-15.0 [facility] Comment on above: Performed By: #### C BC #### [facility] [address] [address] [address] Karen Santos Hematocrit (Bld) [Volume fraction] 39.2 % Critically low 42.0-54.0 [facility] Comment on above: Performed By: #### C BC #### [facility] [address] [address] [address] Karen Snatos Hemoglobin (Bld) [Mass/Vol] 13.9 g/dL Critically low 14.0-18.0 [facility] Comment on above: Performed By: #### C BC #### [facility] [address] [address] [address] Karen Santos IG # 0.08 10e3/ul Critically high 0.00-0.03 [facility] Comment on above: Performed By: #### C BC #### [facility] [address] [address] [address] Karen Santos IG % 0.7 % Critically high 0.0-0.5 [facility] Comment on above: Performed By: #### C BC #### [facility] [address] [address] [address] Karen Santos LYMPH # 1.0 103/ul Critically low 1.2-3.8 [facility] Comment on above: Performed By: #### C BC #### [facility] [address] [address] [address] Karen Santos Lymphocytes/100 WBC (Bld) 8.5 % Critically low 20.5-60.0 [facility] Comment on above: Performed By: #### C BC #### [facility] [address] [address] [address] Karen Santos MANUAL DIFF REQ NO Normal [facility] Comment on above: Performed By: #### C BC #### [facility] [address] [place] [address] Dr. Karen Santos MCH (RBC) [Entitic mass] 36.1 pg Critically high 25.9-34.0 [facility] Comment on above: Performed By: #### C BC #### [facility] [address] [address] [address] Karen Santos MCHC (RBC) [Mass/Vol] 35.5 g/dL Critically high 29.9-35.2 [facility] Comment on above: Performed By: #### C BC #### [facility] [address] [address] [address] Karen Santos MCV (RBC) [Entitic vol] 101.8 fL Critically high 80.0-94.0 [facility] Comment on above: Performed By: #### C BC #### [facility] [address] [address] [address] Karen Santos MONO # 0.6 103/ul Normal 0.3-0.8 [facility] Comment on above: Performed By: #### C BC #### [facility] [address] [address] [address] Karen Santos Monocytes/100 WBC (Bld) 5.2 % Normal 1.7-12.0 [facility] Comment on above: Performed By: #### C BC #### [facility] [address] [address] [address] Karen Santos NEUT # 9.9 103/ul Critically high 1.4-6.5 [facility] Comment on above: Performed By: #### C BC #### [facility] [address] [address] [address] Karen Santos Neutrophils/100 WBC (Bld) 84.3 % Critically high 43.0-75.0 [facility] Comment on above: Performed By: #### C BC #### [facility] [address] [address] [address] Karen Santos Platelet mean volume (Bld) [Entitic vol] 8.9 fL Critically low 9.5-13.5 [facility] Comment on above: Performed By: #### C BC #### [facility] [address] [address] [address] Karen Santos PLT 303 103/ul Normal 150-450 [facility] Comment on above: Performed By: #### C BC #### [facility] [address] [address] [address] Karen Santos RBC 3.85 106/ul Critically low 4.70-6.10 [facility] Comment on above: Performed By: #### C BC #### [facility] [address] [address] [address] Karen Santos WBC 11.7 103/ul Critically high 4.0-11.0 [facility] Comment on above: Performed By: #### C BC #### [facility] [address] [place] [address] HEAD WO CONon [...] LUDMILA MACK Date: 2022-02-14 13:41 Normal [facility] PROF 14(COMP METB)on 022 Albumin [Mass/Vol] 4.0 g/dL Normal 3.4-5.0 [facility] Comment on above: Performed By: #### C BC #### [facility] [address] [place] [address] Dr. Karen Santos Albumin/Globulin [Mass ratio] 1.0 {ratio} Normal [facility] Comment on above: Performed By: #### C BC #### [facility] [address] [place] [address] Dr. Karen Santos ALP [Catalytic activity/Vol] 112 U/L Normal 46-116 [facility] Comment on above: Performed By: #### C BC #### [facility] [address] [place] [address] Dr. Karen Santos ALT [Catalytic activity/Vol] 17 U/L Normal 16-63 [facility] Comment on above: Performed By: #### C BC #### [facility] [address] [place] [address] Dr. Karen Santos Anion gap [Moles/Vol] 14.9 mmol/L Normal [facility] Comment on above: Performed By: #### C BC #### [facility] [address] [place] [address] Dr. Karen Santos AST [Catalytic activity/Vol] 16 U/L Normal 15-37 [facility] Comment on above: Performed By: #### C BC #### [facility] [address] [address] [address] Karen Santos Bilirubin [Mass/Vol] 0.8 mg/dL Normal 0.2-1.0 [facility] Comment on above: Performed By: #### C BC #### [facility] [address] [address] [address] Karen Santos Calcium [Mass/Vol] 8.9 mg/dL Normal 8.5-10.1 [facility] Comment on above: Performed By: #### C BC #### [facility] [address] [address] [address] Karen Santos Chloride [Moles/Vol] 94 mmol/L Critically low 98-107 [facility] Comment on above: Performed By: #### C BC #### [facility] [address] [address] [address] Karen Santos CO2 [Moles/Vol] 25.0 mmol/L Normal 21.0-32.0 [facility] Comment on above: Performed By: #### C BC #### [facility] [address] [address] [address] Karen Santos Creatinine [Mass/Vol] 2.55 mg/dL Critically high 0.70-1.30 [facility] Comment on above: Performed By: #### C BC #### [facility] [address] [place] [address] Dr. Karen Santos EGFR-AF [place] 32 mL/min/1.73m2 Critically low >=60 [facility] Comment on above: Performed By: #### C BC #### [facility] [address] [address] [address] Karen Santos EGFR-NON AF [place] 27 mL/min/1.73m2 Critically low >=60 [facility] Comment on above: Performed By: #### C BC #### [facility] [address] [address] [address] Karen Santos Globulin (S) [Mass/Vol] 4.1 g/dL Normal [facility] Comment on above: Performed By: #### C BC #### [facility] [address] [address] [address] Karen Santos Glucose [Mass/Vol] 105 mg/dL Normal 74-106 [facility] Comment on above: Performed By: #### C BC #### [facility] [id number] Karen Santos Potassium [Moles/Vol] 3.0 mmol/L Critically low 3.5-5.1 [facility] Comment on above: Performed By: #### C BC #### [facility] [address] [address] [address] Kaern Santos Protein [Mass/Vol] 8.1 g/dL Normal 6.1-8.2 [facility] Comment on above: Performed By: #### C BC #### [facility] [address] [address] [address] Karen Santos Sodium [Moles/Vol] 132 mmol/L Critically low 136-145 [facility] Comment on above: Performed By: #### C BC #### [facility] [address] [address] [address] Karen Santos Urea nitrogen [Mass/Vol] 26.0 mg/dL Critically high 7.0-18.0 [facility] Comment on above: Performed By: #### C BC #### [facility] [address] [address] [address] Karen Santos Urea nitrogen/Creatinine [Mass ratio] 10.2 mg/mg Normal [facility] Comment on above: Performed By: #### C BC #### [facility] [address] [address] [address] Karen Santos PROTIMEon 02-14-2022 INR Coag (PPP) [Relative time] 1.04 {INR} Normal [facility] Comment on above: Performed By: #### P TT, PT ####[facility] [address] [place], [place] [address]NvDr. Karen Santos INR GUIDELINES SEE BELOW Normal [facility] Comment on above: Result Comment: PALAK RED INR: 2.0 - 3.0 CONDITIONS NOT LISTED BELOW 2.5 - 3.5 FOR PROSTHETIC HEART VALVE REPLACEMENT 2.5 - 3.5 RECURRENT THROMBOSIS Performed By: #### P TT, PT ####[facility] [address] [address]Dr. Karen Santos PT Coag (PPP) [Time] 11.2 s Normal 9.0-11.6 [facility] Comment on above: Performed By: #### P TT, PT ####[facility] [address] [id number]. Karen Santos PTTon 02-14-2022 aPTT Coag (Bld) [Time] 27.7 s Normal 22.3-36.2 Th e [facility] Comment on above: Performed By: #### P TT, PT ####[facility] [address] [address]Dr. Karen Santos XR CHEST 1 Von 02-14-2022 [...] DYLLAN ABREU Date: 2022-02-14 13:23 Normal The [facility] BNPon 02-13-2022 Natriuretic peptide B (Bld) [Mass/Vol] 1509.0 pg/mL Critically high <=900.0 The [facility] Comment on above: Performed By: #### C MP, BNP, HSTROPN ####[facility] [address] [address]Dr. Karen Santos CBC AUTO DIFFon 02-13-2022 BASO # 0.1 103/ul Normal 0.0-0.1 [facility] Comment on above: Performed By: #### C BC #### [facility] [address] [address] [address] Karen Santos Basophils/100 WBC (Bld) 0.5 % Normal 0.2-2.0 [facility] Comment on above: Performed By: #### C BC #### [facility] [address] [address] [address] Karen Santos EO # 0.3 103/ul Normal 0.0-0.7 [facility] Comment on above: Performed By: #### C BC #### [facility] [address] [address] [address] Karen Santos Eosinophils/100 WBC (Bld) 2.4 % Normal 0.9-7.0 [facility] Comment on above: Performed By: #### C BC #### [facility] [address] [address] [address] Karen Santos Erythrocyte distribution width (RBC) [Ratio] 13.1 % Normal 11.0-15.0 [facility] Comment on above: Performed By: #### C BC #### [facility] [address] [place] [address] Dr. Karen Santos Hematocrit (Bld) [Volume fraction] 38.8 % Critically low 42.0-54.0 [facility] Comment on above: Performed By: #### C BC #### [facility] [address] [place] [address] Dr. Karen Santos Hemoglobin (Bld) [Mass/Vol] 13.2 g/dL Critically low 14.0-18.0 [facility] Comment on above: Performed By: #### C BC #### [facility] [address] [address] [address] Karen Santos IG # 0.06 10e3/ul Critically high 0.00-0.03 [facility] Comment on above: Performed By: #### C BC #### [facility] [address] [address] [address] Karen Santos IG % 0.6 % Critically high 0.0-0.5 [facility] Comment on above: Performed By: #### C BC #### [facility] [address] [address] [address] Karen Santos LYMPH # 1.3 103/ul Normal 1.2-3.8 [facility] Comment on above: Performed By: #### C BC #### [facility] [address] [address] [address] Karen Santos Lymphocytes/100 WBC (Bld) 11.6 % Critically low 20.5-60.0 [facility] Comment on above: Performed By: #### C BC #### [facility] [address] [address] [address] Karen Santos MANUAL DIFF REQ NO Normal [facility] Comment on above: Performed By: #### C BC #### [facility] [address] [address] [address] Karen Santos MCH (RBC) [Entitic mass] 35.9 pg Critically high 25.9-34.0 [facility] Comment on above: Performed By: #### C BC #### [facility] [address] [place] [address] Dr. Karen Santos MCHC (RBC) [Mass/Vol] 34.0 g/dL Normal 29.9-35.2 [facility] Comment on above: Performed By: #### C BC #### [facility] [address] [place] [address] Dr. Karen Santos MCV (RBC) [Entitic vol] 105.4 fL Critically high 80.0-94.0 [facility] Comment on above: Performed By: #### C BC #### [facility] [address] [place] [address] Dr. Karen Santos MONO # 0.7 103/ul Normal 0.3-0.8 [facility] Comment on above: Performed By: #### C BC #### [facility] [address] [place] [address] Dr. Karen Santos Monocytes/100 WBC (Bld) 6.1 % Normal 1.7-12.0 [facility] Comment on above: Performed By: #### C BC #### [facility] [address] [place] [address] Dr. Karen Santos NEUT # 8.5 103/ul Critically high 1.4-6.5 [facility] Comment on above: Performed By: #### C BC #### [facility] [address] [address] [address] Karen Santos Neutrophils/100 WBC (Bld) 78.8 % Critically high 43.0-75.0 [facility] Comment on above: Performed By: #### C BC #### [facility] [address] [address] [address] Karen Santos Platelet mean volume (Bld) [Entitic vol] 9.1 fL Critically low 9.5-13.5 [facility] Comment on above: Performed By: #### C BC #### [facility] [address] [address] [address] Karen Santos PLT 283 103/ul Normal 150-450 [facility] Comment on above: Performed By: #### C BC #### [facility] [address] [address] [address] Karen Santos RBC 3.68 106/ul Critically low 4.70-6.10 [facility] Comment on above: Performed By: #### C BC #### [facility] [address] [address] [address] Karen Santos WBC 10.8 103/ul Normal 4.0-11.0 [facility] Comment on above: Performed By: #### C BC #### [facility] [address] [address] [address] Karen Santos ER URINE PROFILEon 2 Bilirubin Ql (U) Negative Normal NEGATIVE [facility] Comment on above: Performed By: #### E RUR ####[facility] [address] [id number]. Karen Santos Clarity (U) CLEAR Normal CLEAR [facility] Comment on above: Performed By: #### E RUR ####[facility] [address] [phone]. Karen Santos Color (U) LT. YELLOW Normal YELLOW [facility] Comment on above: Performed By: #### E RUR ####[facility] [address] [address]Dr. Karen Santso ERUAHD A micrscopic examination will be performed if indicated. Normal [facility] Comment on above: Performed By: #### E RUR ####[facility] [address] [place], [place] [address]Dr. Karen Tom Glucose Ql (U) Negative Normal NEGATIVE [facility] Comment on above: Performed By: #### E RUR ####[facility] [address] [place], [place] [address]Dr. Karen Tom Hemoglobin Ql (U) Negative Normal NEGATIVE [facility] Comment on above: Performed By: #### E RUR ####[facility] [address] [place], [place] [address]Dr. Karen Santos Ketones Ql (U) Negative Normal NEGATIVE [facility] Comment on above: Performed By: #### E RUR ####[facility] [address] [place], [place] [address]Dr. Karen Santos LEUKOCYTES Negative Normal NEGATIVE [facility] Comment on above: Performed By: #### E RUR ####[facility] [address] [place], [place] [address]Dr. Karen Tom Nitrite Ql (U) Negative Normal NEGATIVE [facility] Comment on above: Performed By: #### E RUR ####[facility] [address] [place], [place] [address]Dr. Karen Tom pH (U) 6.0 [pH] Normal 5-9 [facility] Comment on above: Performed By: #### E RUR ####[facility] [address] [place], [place] [address]Dr. Karen Santos SPEC GRAVITY <=1.005 Abnormal 1.005-<=1.02 5 [facility] Comment on above: Performed By: #### E RUR ####[facility] [address] [place], [place] [address]Dr. Karen Santos UA PROTEIN Negative Normal NEGATIVE/ TRACE The [facility] Comment on above: Performed By: #### E RUR ####[facility] [address] [place], [place] [address]Dr. Karen Santos UR MICRO IND NOT INDICATED Normal [facility] Comment on above: Performed By: #### E RUR ####[facility] [address] [address]Dr. Karen Santos Urobilinogen Qn (U) 0.2 {Itz'U}/dL Normal 0.2 - 1. 0 [facility] Comment on above: Performed By: #### E RUR ####[facility] [address] [address]Dr. Karen Santos MAGNESIUMon 02-13-2022 Magnesium [Mass/Vol] 2.1 mg/dL Normal 1.8-2.4 [facility] Comment on above: Performed By: #### Marcelo G, RENAL ####[facility] [address] [place], [place] [address]Dr. Karen Santos PROF 14(COMP METB)on 022 Albumin [Mass/Vol] 3.8 g/dL Normal 3.4-5.0 [facility] Comment on above: Performed By: #### C MP, BNP, HSTROPN ####[facility] [address] [place], [place] [address]Dr. Karen Santos Performed By: #### Marcelo Hwang, RENAL ####[facility] [address] [place], [place] [address]Dr. Karen Santos Albumin/Globulin [Mass ratio] 0.9 {ratio} Normal [facility] Comment on above: Performed By: #### C MP, BNP, HSTROPN ####[facility] [address] [address]Dr. Karen Santos ALP [Catalytic activity/Vol] 111 U/L Normal 46-116 [facility] Comment on above: Performed By: #### C MP, BNP, HSTROPN ####[facility] [address] [address]Dr. Karen Santos ALT [Catalytic activity/Vol] 15 U/L Critically low 16-63 [facility] Comment on above: Performed By: #### C MP, BNP, HSTROPN ####[facility] [address] [address]Dr. Karen Santos Anion gap [Moles/Vol] 14.5 mmol/L Normal Th e [facility] Comment on above: Performed By: #### C MP, BNP, HSTROPN ####[facility] [address] [address]Dr. Karen Santos AST [Catalytic activity/Vol] 10 U/L Critically low 15-37 [facility] Comment on above: Performed By: #### C MP, BNP, HSTROPN ####[facility] [address] [address]Dr. Karen Santos Bilirubin [Mass/Vol] 0.5 mg/dL Normal 0.2-1.0 [facility] Comment on above: Performed By: #### C MP, BNP, HSTROPN ####[facility] [address] [place], [place] [address]Dr. Karen Santos Calcium [Mass/Vol] 8.8 mg/dL Normal 8.5-10.1 [facility] Comment on above: Performed By: #### C MP, BNP, HSTROPN ####[facility] [address] [place], [place] [address]Dr. Karen Santos Chloride [Moles/Vol] 97 mmol/L Critically low 98-107 [facility] Comment on above: Performed By: #### C MP, BNP, HSTROPN ####[facility] [address] [place], [place] [address]Dr. Karen Santos Performed By: #### M G, RENAL ####[facility] [address] [address]Dr. Karen Santos CO2 [Moles/Vol] 27.5 mmol/L Normal 21.0-32.0 [facility] Comment on above: Performed By: #### C MP, BNP, HSTROPN ####[facility] [address] [address]Dr. Karen Santos Creatinine [Mass/Vol] 2.59 mg/dL Critically high 0.70-1.30 [facility] Comment on above: Performed By: #### C MP, BNP, HSTROPN ####[facility] [address] [address]Dr. Viralan Santos EGFR-AF [place] 32 mL/min/1.73m2 Critically low >=60 [facility] Comment on above: Performed By: #### C MP, BNP, HSTROPN ####[facility] [address] [address]Dr. Viralan Santos EGFR-NON AF [place] 26 mL/min/1.73m2 Critically low >=60 [facility] Comment on above: Performed By: #### C MP, BNP, HSTROPN ####[facility] [address] [address]Dr. Karen Santos Globulin (S) [Mass/Vol] 4.0 g/dL Normal [facility] Comment on above: Performed By: #### C MP, BNP, HSTROPN ####[facility] [address] [place], [place] [address]Dr. Karen Santos Glucose [Mass/Vol] 100 mg/dL Normal 74-106 [facility] Comment on above: Performed By: #### C MP, BNP, HSTROPN ####[facility] [address] [address]Dr. Karen Santos Potassium [Moles/Vol] 3.0 mmol/L Critically low 3.5-5.1 [facility] Comment on above: Performed By: #### C MP, BNP, HSTROPN ####[facility] [address] [address]Dr. Viralan Santos Protein [Mass/Vol] 7.8 g/dL Normal 6.1-8.2 [facility] Comment on above: Performed By: #### C MP, BNP, HSTROPN ####[facility] [address] [address]Dr. Karen Santos Sodium [Moles/Vol] 135 mmol/L Critically low 136-145 Th [facility] Comment on above: Performed By: #### C MP, BNP, HSTROPN ####[facility] [address] [phone]. Karen Santos Urea nitrogen [Mass/Vol] 27.0 mg/dL Critically high 7.0-18.0 [facility] Comment on above: Performed By: #### C MP, BNP, HSTROPN ####[facility] [address] [address]Dr. Karen Santos Urea nitrogen/Creatinine [Mass ratio] 10.4 mg/mg Normal [facility] Comment on above: Performed By: #### C MP, BNP, HSTROPN ####[facility] [address] [place], [place] [address]Dr. Karen Santos RENAL FUNCTION PANELon 02-13 Calcium [Mass/Vol] 9.1 mg/dL Normal 8.5-10.1 [facility] Comment on above: Performed By: #### M G, RENAL ####[facility] [address] [place], [place] [address]Dr. Karen Santos CO2 [Moles/Vol] 30.8 mmol/L Normal 21.0-32.0 [facility] Comment on above: Performed By: #### Marcelo G, RENAL ####[facility] [address] [place], [place] [address]Dr. Karen Santos Creatinine [Mass/Vol] 2.67 mg/dL Critically high 0.70-1.30 [facility] Comment on above: Performed By: #### M G, RENAL ####[facility] [address] [place], [place] [address]Dr. Virajacinda Santos EGFR-AF [place] 31 mL/min/1.73m2 Critically low >=60 [facility] Comment on above: Performed By: #### M G, RENAL ####[facility] [address] [place], [place] [address]Dr. Virajacinda Santos EGFR-NON AF [place] 25 mL/min/1.73m2 Critically low >=60 [facility] Comment on above: Performed By: #### Marcelo Hwang, RENAL ####[facility] [address] [phone]. Karen Santos Glucose [Mass/Vol] 119 mg/dL Critically high 74-106 [facility] Comment on above: Performed By: #### M G, RENAL ####[facility] [address] [phone]. Karen Santos Phosphate [Mass/Vol] 3.8 mg/dL Normal 2.6-4.7 [facility] Comment on above: Performed By: #### M G, RENAL ####[facility] [address] [phone]. Karen Santos Potassium [Moles/Vol] 3.8 mmol/L Normal 3.5-5.1 [facility] Comment on above: Performed By: #### M Jaiden, RENAL ####[facility] [address] [place], [place] [id number]. Karen Santos Sodium [Moles/Vol] 137 mmol/L Normal 136-145 [facility] Comment on above: Performed By: #### Marcelo Hwang, RENAL ####[facility] [address] [phone]. Karen Santos Urea nitrogen [Mass/Vol] 25.0 mg/dL Critically high 7.0-18.0 [facility] Comment on above: Performed By: #### Marcelo Hwang, RENAL ####[facility] [address] [phone]. Karen Santos TROPONIN, HIGH SENSITIVITYon 02-13-2022 HSTROP 20.8 pg/mL Normal 4.0-76.1 [facility] Comment on above: Result Comment: CUT- OFF POINTS HAVE BEEN ESTABLISHED BASED ON THE FOURTH UNIVERSAL DEFINITIONS OF MYOCARDIAL INFARCTION. THE UPPER REFERENCE LIMIT (URL) OF TROPONIN, DEFINED THE 99TH PERCENTILE OF cTnI DISTRIBUTION IN A REFERENCE POPULATION, HAS BEEN CONFIRMED THE DECISION THRESHOLD FOR MA DIAGNOSIS. Performed By: #### C MP, BNP, HSTROPN ####[facility] [address] [address]Dr. Karen Santos XR CHEST 1 Von 02-13-2022 [...] VIVIAN MCKEON Date: 2022-02-13 20:45 Normal [facility] PROF CHEM 8 (BAS METB)on Anion gap [Moles/Vol] 12.5 mmol/L [facility] Comment on above: Performed By: #### B MP ####[facility] [address] [place] [address]Dr. Karen Santos Calcium [Mass/Vol] 8.7 mg/dL Normal 8.5-10.1 [facility] Comment on above: Performed By: #### B MP ####[facility] Puxtebcu[address] [place], [place] [address]Dr. Karen Santos Chloride [Moles/Vol] 101 mmol/L Normal 98-107 [facility] Comment on above: Performed By: #### B MP ####[facility] Tq[address] [place], [place] [address]Dr. Karen Santos CO2 [Moles/Vol] 28.8 mmol/L Normal 21.0-32.0 [facility] Comment on above: Performed By: #### B MP ####[facility] [address]tk[address] [place] [address]Dr. Karen Santos Creatinine [Mass/Vol] 2.31 mg/dL Critically high 0.70-1.30 [facility] Comment on above: Performed By: #### B MP ####[facility] Qipdeqjoj[address] [place], [place] [address]Dr. Karen Santos EGFR-AF [place] 36 mL/min/1.73m2 Critically low >=60 [facility] Comment on above: Performed By: #### B MP ####[facility] [address] [place] [phone]. Karen Santos EGFR-NON AF [place] 30 mL/min/1.73m2 Critically low >=60 [facility] Comment on above: Performed By: #### B MP ####[facility] [address] [place] [address]Dr. Karen Santos Glucose [Mass/Vol] 122 mg/dL Critically high 74-106 T [facility] Comment on above: Performed By: #### B MP ####[facility] [address] [place] [address]Dr. Karen Santos Potassium [Moles/Vol] 4.3 mmol/L Normal 3.5-5.1 [facility] Comment on above: Performed By: #### B MP ####[facility] [address] [place] [address]Dr. Karen Santos Sodium [Moles/Vol] 138 mmol/L Normal 136-145 [facility] Comment on above: Performed By: #### B MP ####[facility] [address]qu[address] [place] [address]DrEva Santos Urea nitrogen [Mass/Vol] 26.0 mg/dL Critically high 7.0-18.0 [facility] Comment on above: Performed By: #### B MP ####[facility] Lovrksvzb[address] [place], [place] [address]Dr. Karen Santos Urea nitrogen/Creatinine [Mass ratio] 11.3 mg/mg Normal [facility] Comment on above: Performed By: #### B MP ####[facility] [address] [place] [phone] Santos RENIN ACTIVITYon 01-10-2022 Renin Activity, Plasma 43.749 ng/mL/hr Critically high 0.1 67-5.380 [facility] Comment on above: Performed By: #### C BC #### [facility] [address] [address] [address] Karen Santos MAGNESIUMon 12-30-2021 Magnesium [Mass/Vol] 2.2 mg/dL Normal 1.6-2.3 [facility] Comment on above: Performed By: #### C BC #### [facility] [address] [address] [address] Karen Santos RENAL FUNCTION PANELon 12-30 Albumin [Mass/Vol] 3.5 g/dL Normal 3.4-5.0 [facility] Comment on above: Performed By: #### C BC #### [facility] [address] [address] [address] Karen Santos Calcium [Mass/Vol] 8.1 mg/dL Critically low 8.5-10.1 [facility] Comment on above: Performed By: #### C BC #### [facility] [address] [address] [address] Karen Santos Chloride [Moles/Vol] 97 mmol/L Critically low 98-107 [facility] Comment on above: Performed By: #### C BC #### [facility] [address] [place] [address] Dr. Karen Santos CO2 [Moles/Vol] 22.8 mmol/L Normal 22.0-30.0 [facility] Comment on above: Performed By: #### C BC #### [facility] [address] [place] [address] Dr. Karen Santos Creatinine [Mass/Vol] 6.56 mg/dL Critically high 0.66-1.25 [facility] Comment on above: Result Comment: TEST REPEATED CRITICAL VALUE VERIFIED Performed By: #### C BC #### [facility] [address] [place] [address] Dr. Karen Santos EGFR-AF [place] 11 mL/min/1.73m2 Critically low >=60 [facility] Comment on above: Performed By: #### C BC #### [facility] [address] [place] [address] Dr. Karen Santos EGFR-NON AF [place] 9 mL/min/1.73m2 Critically low >=60 [facility] Comment on above: Performed By: #### C BC #### [facility] [address] [place] [address] Dr. Karen Santos Glucose [Mass/Vol] 109 mg/dL Critically high 74-106 [facility] Comment on above: Performed By: #### C BC #### [facility] [address] [address] [address] Karen Santos Phosphate [Mass/Vol] 6.2 mg/dL Critically high 2.5-4.5 [facility] Comment on above: Result Comment: TEST REPEATED CRITICAL VALUE VERIFIED Performed By: #### C BC #### [facility] [address] [address] [address] Karen Santos Potassium [Moles/Vol] 3.4 mmol/L Normal 3.4-5.0 [facility] Comment on above: Performed By: #### C BC #### [facility] [address] [address] [address] Karen Santos Sodium [Moles/Vol] 133 mmol/L Critically low 137-145 [facility] Comment on above: Performed By: #### C BC #### [facility] [address] [place] [address] Dr. Karen Santos Urea nitrogen [Mass/Vol] 69.0 mg/dL Critically high 7.0-18.0 [facility] Comment on above: Performed By: #### C BC #### [facility] [address] [place] [address] Dr. Karen Santos ALDOSTERONE LCMS, SERUMon Aldosterone 1.4 ng/dL Normal 0.0-30.0 [facility] Comment on above: Performed By: #### C BC #### [facility] [address] [place] [address] Dr. Karen Santos METANEPHRINES PLASMA FREEon 12-22-2021 Metanephrine, Pl 46.7 pg/mL Normal 0.0-88.0 [facility] Comment on above: Performed By: #### M ETANPF ####[facility] [address] [place], [place] [address]Dr. Karen Santos Normetanephrine, Pl 163.0 pg/mL Normal 0.0-244.0 [facility] Comment on above: Performed By: #### M ETANPF ####[facility] [address] [place] [address]Dr. Karen Santos RENAL FUNCTION PANELon 12-22 Albumin [Mass/Vol] 3.9 g/dL Normal 3.5-5.0 [facility] Comment on above: Performed By: #### R ENAL ####[facility] [address] [place] [address]Dr. Karen Santos Calcium [Mass/Vol] 8.9 mg/dL Normal 8.4-10.2 [facility] Comment on above: Performed By: #### R ENAL ####[facility] [address] [place] [address]Dr. Karen Santos Chloride [Moles/Vol] 103 mmol/L Normal 98-107 [facility] Comment on above: Performed By: #### R ENAL ####[facility] [address] [address]Dr. Karen Santos CO2 [Moles/Vol] 22.8 mmol/L Normal 22.0-30.0 [facility] Comment on above: Performed By: #### R ENAL ####[facility] [address] [place] [address]Dr. Karen Santos Creatinine [Mass/Vol] 4.68 mg/dL Critically high 0.66-1.25 [facility] Comment on above: Performed By: #### R ENAL ####[facility] [address] [place] [address]Dr. Virajacinda Tom EGFR-AF [place] 16 mL/min/1.73m2 Critically low >=60 [facility] Comment on above: Performed By: #### R ENAL ####[facility] [address] [place] [address]Dr. Virajacinda Tom EGFR-NON AF [place] 13 mL/min/1.73m2 Critically low >=60 [facility] Comment on above: Performed By: #### R ENAL ####[facility] [address] [place] [address]Dr. Virajacinda Santos Glucose [Mass/Vol] 99 mg/dL Normal 74-106 [facility] Comment on above: Performed By: #### R ENAL ####[facility] [address] [place] [address]Dr. Karen Santos Phosphate [Mass/Vol] 4.7 mg/dL Critically high 2.5-4.5 [facility] Comment on above: Performed By: #### R ENAL ####[facility] [address] [place] [address]Dr. Karen Santos Potassium [Moles/Vol] 5.4 mmol/L Critically high 3.4-5.0 [facility] Comment on above: Performed By: #### R ENAL ####[facility] [address] [place] [address]Dr. Karen Santos Sodium [Moles/Vol] 135 mmol/L Critically low 137-145 [facility] Comment on above: Performed By: #### R ENAL ####[facility] [address] [place] [address]DrEva Santos Urea nitrogen [Mass/Vol] 64.0 mg/dL Critically high 9.0-20.0 [facility] Comment on above: Performed By: #### R ENAL ####[facility] [address] [place], [place] [address]DrEva Santos RENAL FUNCTION PANELon 12-19 Albumin [Mass/Vol] 3.5 g/dL Normal 3.5-5.0 [facility] Comment on above: Performed By: #### C BC #### [facility] [address] [place] [address] Dr. Karen Santos Calcium [Mass/Vol] 8.5 mg/dL Normal 8.4-10.2 [facility] Comment on above: Performed By: #### C BC #### [facility] [address] [address] [address] Karen Santos Chloride [Moles/Vol] 107 mmol/L Normal 98-107 [facility] Comment on above: Performed By: #### C BC #### [facility] [address] [address] [address] Karen Santos CO2 [Moles/Vol] 21.2 mmol/L Critically low 22.0-30.0 [facility] Comment on above: Performed By: #### C BC #### [facility] [address] [place] [address] Dr. Karen Santos Creatinine [Mass/Vol] 4.93 mg/dL Critically high 0.66-1.25 [facility] Comment on above: Performed By: #### C BC #### [facility] [address] [address] [address] Karen Santos EGFR-AF [place] 15 mL/min/1.73m2 Critically low >=60 [facility] Comment on above: Performed By: #### C BC #### [facility] [address] [place] [address] Dr. Karen Santos EGFR-NON AF [place] 12 mL/min/1.73m2 Critically low >=60 [facility] Comment on above: Performed By: #### C BC #### [facility] [address] [place] [address] Dr. Karen Santos Glucose [Mass/Vol] 113 mg/dL Critically high 74-106 [facility] Comment on above: Performed By: #### C BC #### [facility] [address] [place] [address] Dr. Karen Santos Phosphate [Mass/Vol] 5.0 mg/dL Critically high 2.5-4.5 [facility] Comment on above: Performed By: #### C BC #### [facility] [address] [place] [address] Dr. Karen Santos Potassium [Moles/Vol] 5.2 mmol/L Critically high 3.4-5.0 [facility] Comment on above: Performed By: #### C BC #### [facility] [address] [place] [address] Dr. Karen Santos Sodium [Moles/Vol] 138 mmol/L Normal 137-145 [facility] Comment on above: Performed By: #### C BC #### [facility] [address] [address] [address] Karen Santos Urea nitrogen [Mass/Vol] 60.0 mg/dL Critically high 9.0-20.0 [facility] Comment on above: Performed By: #### C BC #### [facility] [address] [place] [address] Dr. Karen Santos PROF CHEM 8 (BAS METB)on Anion gap [Moles/Vol] 13.7 mmol/L Normal [facility] Comment on above: Performed By: #### C BC #### [facility] [address] [place] [address] Dr. Karen Santos Calcium [Mass/Vol] 8.8 mg/dL Normal 8.4-10.2 [facility] Comment on above: Performed By: #### C BC #### [facility] [address] [place] [address] Dr. Karen Santos Chloride [Moles/Vol] 102 mmol/L Normal 98-107 [facility] Comment on above: Performed By: #### C BC #### [facility] [address] [place] [address] Dr. Karen Santos CO2 [Moles/Vol] 23.6 mmol/L Normal 22.0-30.0 [facility] Comment on above: Performed By: #### C BC #### [facility] [address] [place] [address] Dr. Karen Santos Creatinine [Mass/Vol] 4.15 mg/dL Critically high 0.66-1.25 [facility] Comment on above: Performed By: #### C BC #### [facility] [address] [place] [address] Dr. Karen Santos EGFR-AF [place] 18 mL/min/1.73m2 Critically low >=60 [facility] Comment on above: Performed By: #### C BC #### [facility] [address] [place] [address] Dr. Karen Santos EGFR-NON AF [place] 15 mL/min/1.73m2 Critically low >=60 [facility] Comment on above: Performed By: #### C BC #### [facility] [address] [place] [address] Dr. Karen Santos Glucose [Mass/Vol] 108 mg/dL Critically high 74-106 T [facility] Comment on above: Performed By: #### C BC #### [facility] [address] [address] [address] Karen Santos Potassium [Moles/Vol] 5.3 mmol/L Critically high 3.4-5.0 [facility] Comment on above: Performed By: #### C BC #### [facility] [address] [address] [address] Karen Santos Sodium [Moles/Vol] 134 mmol/L Critically low 137-145 Th [facility] Comment on above: Performed By: #### C BC #### [facility] [address] [address] [address] Karen Santos Urea nitrogen [Mass/Vol] 49.0 mg/dL Critically high 9.0-20.0 [facility] Comment on above: Performed By: #### C BC #### [facility] [address] [address] [address] Karen Santos Urea nitrogen/Creatinine [Mass ratio] 11.8 mg/mg Normal [facility] Comment on above: Performed By: #### C BC #### [facility] [id number] Karen Santos B-Type Natriuretic Peptideon 12-05-2021 Natriuretic peptide B (Bld) [Mass/Vol] 50.0 pg/mL 5-100 [facility] [employer] Other BNPon 12-05-2021 Natriuretic peptide B (Bld) [Mass/Vol] 720.0 pg/mL Normal <=900.0 [facility] Comment on above: Performed By: #### B CLINICAL OPERATIONS CONSULTANT, CMP ####[facility] [address] [phone]. Karen Santos Comprehensive Metabolic Pane fletcher 12-05-2021 Albumin [Mass/Vol] 3.9 g/dL 3.2-5.5 [employer] Other Albumin/Globulin [Mass ratio] 1.2 {ratio} [employer] Other ALP [Catalytic activity/Vol] 89 U/L 32-92 [facility] Other ALT [Catalytic activity/Vol] 10 U/L 10-60 [facility] Other AST [Catalytic activity/Vol] 10 U/L 10-42 [facility] Other Bilirubin [Mass/Vol] 0.7 mg/dL 0.3-1.2 [facility] [employer] Other Calcium [Mass/Vol] 9.1 mg/dL Normal 8.4-10.2 [facility] Other Comment on above: Performed By: #### B CLINICAL OPERATIONS CONSULTANT, CMP ####[facility] [address] [place], [place] [address]Dr. Karen Santos Chloride [Moles/Vol] 101 mmol/L Normal 98-107 [facility] [employer] Other Comment on above: Performed By: #### B CLINICAL OPERATIONS CONSULTANT, CMP ####[facility] E[address] [place], [place] [address]Dr. Karen Santos CO2 [Moles/Vol] 18.1 mmol/L 22.0-30.0 [facility] Other Creatinine [Mass/Vol] 5.16 mg/dL 0.64-1.27 [facility] [employer] Other Glucose [Mass/Vol] 89 mg/dL 70-100 [facility] [employer] Other Potassium [Moles/Vol] 5.3 mmol/L Critically high 3.4-5.0 [facility] Other Comment on above: Performed By: #### B CLINICAL OPERATIONS CONSULTANT, CMP ####[facility] [address] [place], [place] [address]Dr. Karen Santos Protein [Mass/Vol] 7.2 g/dL 6.1-7.9 [facility] Other Sodium [Moles/Vol] 131 mmol/L 136-146 [employer] Other Urea nitrogen [Mass/Vol] 49 mg/dL 9-23 [employer] Other Comprehensive Metabolic Panel 12 [employer] Other Comprehensive Metabolic Panel 14 [employer] Other Comprehensive Metabolic Panel 3.3 [employer] Other PHOSPHORUSon 12-05-2021 Phosphate [Mass/Vol] 5.2 mg/dL Critically high 2.5-4.5 [facility] Comment on above: Performed By: #### P HOS ####[facility] Ttkidtlxtz[address] [place], [place] [address]Dr. Karen Santos PROF 14(COMP METB)on 022 Albumin [Mass/Vol] 3.8 g/dL Normal 3.5-5.0 [facility] Comment on above: Performed By: #### B CLINICAL OPERATIONS CONSULTANT, CMP ####[facility] Hubhs[address]zct[address] [place], [place] [address]Dr. Karen Santos Albumin/Globulin [Mass ratio] 1.0 {ratio} Normal [facility] Comment on above: Performed By: #### B CLINICAL OPERATIONS CONSULTANT, CMP ####[facility] [address] [place], [place] [address]Dr. Karen Santos ALP [Catalytic activity/Vol] 109 U/L Normal 38-126 [facility] Comment on above: Performed By: #### B CLINICAL OPERATIONS CONSULTANT, CMP ####[facility] [address] [place], [place] [address]Dr. Karen Santos ALT [Catalytic activity/Vol] 12 U/L Critically low 21-72 [facility] Comment on above: Performed By: #### B CLINICAL OPERATIONS CONSULTANT, CMP ####[facility] [address] [place], [place] [address]Dr. Karen Santos Anion gap [Moles/Vol] 16.7 mmol/L Normal [facility] Comment on above: Performed By: #### B CLINICAL OPERATIONS CONSULTANT, CMP ####[facility] Sr[address] [place], [place] [address]Dr. Karen Santos AST [Catalytic activity/Vol] 8 U/L Critically low 17-59 [facility] Comment on above: Performed By: #### B CLINICAL OPERATIONS CONSULTANT, CMP ####[facility] [address] [place] [address]Dr. Karen Santos Bilirubin [Mass/Vol] 0.4 mg/dL Normal 0.2-1.3 [facility] Comment on above: Performed By: #### B CLINICAL OPERATIONS CONSULTANT, CMP ####[facility] [address] [place], [place] [address]Dr. Karen Santos CO2 [Moles/Vol] 21.6 mmol/L Critically low 22.0-30.0 [facility] Comment on above: Performed By: #### B CLINICAL OPERATIONS CONSULTANT, CMP ####[facility] [address] [place], [place] [address]Dr. Karen Santos Creatinine [Mass/Vol] 5.29 mg/dL Critically high 0.66-1.25 [facility] Comment on above: Performed By: #### B CLINICAL OPERATIONS CONSULTANT, CMP ####[facility] [address] [place], [place] [address]Dr. Karen Santos EGFR-AF [place] 14 mL/min/1.73m2 Critically low >=60 [facility] Comment on above: Performed By: #### B CLINICAL OPERATIONS CONSULTANT, CMP ####[facility] [address] [place], [place] [address]Dr. Karen Santos EGFR-NON AF [place] 11 mL/min/1.73m2 Critically low >=60 [facility] Comment on above: Performed By: #### B CLINICAL OPERATIONS CONSULTANT, CMP ####[facility] [address] [phone]. Karen Santos Globulin (S) [Mass/Vol] 3.8 g/dL Normal [facility] Comment on above: Performed By: #### B CLINICAL OPERATIONS CONSULTANT, CMP ####[facility] [address] [phone]. Karen Santos Glucose [Mass/Vol] 111 mg/dL Critically high 74-106 T [facility] Comment on above: Performed By: #### B CLINICAL OPERATIONS CONSULTANT, CMP ####[facility] [address] [place] [phone]. Karen Santos Protein [Mass/Vol] 7.6 g/dL Normal 6.1-8.2 [facility] Comment on above: Performed By: #### B CLINICAL OPERATIONS CONSULTANT, CMP ####[facility] [address] [phone]. Karen Santos Sodium [Moles/Vol] 134 mmol/L Critically low 137-145 Th [facility] Comment on above: Performed By: #### B CLINICAL OPERATIONS CONSULTANT, CMP ####[facility] [address] [phone]. Karen Santos Urea nitrogen [Mass/Vol] 51.0 mg/dL Critically high 9.0-20.0 [facility] Comment on above: Performed By: #### B CLINICAL OPERATIONS CONSULTANT, CMP ####[facility] [id number] [place] [id number]. Karen Santos Urea nitrogen/Creatinine [Mass ratio] 9.6 mg/mg Normal [facility] Comment on above: Performed By: #### B CLINICAL OPERATIONS CONSULTANT, CMP ####[facility] [id number] [place] [address]Dr. Karen Santos HEMOGRAM AND PLATELon 2021 Hematocrit (Bld) [Volume fraction] 36.4 % Critically low 42.0-54.0 [facility] Comment on above: Performed By: #### C BC #### [facility] [address] [place] [address] Dr. Karen Santos Hemoglobin (Bld) [Mass/Vol] 12.2 g/dL Critically low 14.0-18.0 [facility] Comment on above: Performed By: #### C BC #### [facility] [address] [address] [address] Karen Santos MCH (RBC) [Entitic mass] 34.8 pg Critically high 25.9-34.0 [facility] Comment on above: Performed By: #### C BC #### [facility] [address] [address] [address] Karen Santos MCHC (RBC) [Mass/Vol] 33.5 g/dL Normal 29.9-35.2 [facility] Comment on above: Performed By: #### C BC #### [facility] [address] [place] [address] Dr. Karen Santos MCV (RBC) [Entitic vol] 103.7 fL Critically high 80.0-94.0 [facility] Comment on above: Performed By: #### C BC #### [facility] [address] [address] [address] Karen Santos PLT 215 103/ul Normal 150-450 [facility] Comment on above: Performed By: #### C BC #### [facility] [address] [place] [address] Dr. Karen Santos RBC 3.51 106/ul Critically low 4.70-6.10 [facility] Comment on above: Performed By: #### C BC #### [facility] [address] [place] [address] Dr. Karen Santos WBC 9.3 103/ul Normal 4.0-11.0 [facility] Comment on above: Performed By: #### C BC #### [facility] [address] [place] [address] Dr. Karen Santos MAGNESIUMon 11-28-2021 Magnesium [Mass/Vol] 2.3 mg/dL Normal 1.6-2.3 [facility] Comment on above: Performed By: #### M G, RENAL #### [facility] [address] [place] [address] Dr. Karen Santos RENAL FUNCTION PANELon 11-28 Albumin [Mass/Vol] 3.5 g/dL Normal 3.5-5.0 [facility] Comment on above: Performed By: #### M G, RENAL #### [facility] [address] [place] [address] Dr. Karen Santos Calcium [Mass/Vol] 8.9 mg/dL Normal 8.4-10.2 [facility] Comment on above: Performed By: #### M G, RENAL #### [facility] [address] [place] [address] Dr. Karen Santos Chloride [Moles/Vol] 106 mmol/L Normal 98-107 [facility] Comment on above: Performed By: #### M G, RENAL #### [facility] [address] [address] [address] Karen Santos CO2 [Moles/Vol] 22.7 mmol/L Normal 22.0-30.0 [facility] Comment on above: Performed By: #### M G, RENAL #### [facility] [address] [address] [address] Karen Santos Creatinine [Mass/Vol] 3.00 mg/dL Critically high 0.66-1.25 [facility] Comment on above: Performed By: #### M G, RENAL #### [facility] [address] [place] [address] Dr. Karen Santos EGFR-AF [place] 27 mL/min/1.73m2 Critically low >=60 [facility] Comment on above: Performed By: #### Marcelo Hwang, RENAL #### [facility] [address] [place] [address] Dr. Karen Santos EGFR-NON AF [place] 22 mL/min/1.73m2 Critically low >=60 [facility] Comment on above: Performed By: #### M Jaiden, RENAL #### [facility] [address] [place] [address] Dr. Karen Santos Glucose [Mass/Vol] 87 mg/dL Normal 74-106 [facility] Comment on above: Performed By: #### Marcelo Hwang, RENAL #### [facility] [address] [place] [address] Dr. Karen Santos Phosphate [Mass/Vol] 3.5 mg/dL Normal 2.5-4.5 [facility] Comment on above: Performed By: #### M G, RENAL #### [facility] [address] [place] [address] Dr. Karen Santos Potassium [Moles/Vol] 5.4 mmol/L Critically high 3.4-5.0 [facility] Comment on above: Performed By: #### M G, RENAL #### [facility] [address] [address] [address] Karen Santos Sodium [Moles/Vol] 136 mmol/L Critically low 137-145 Th e [facility] Comment on above: Performed By: #### M G, RENAL #### [facility] [address] [address] [address] Karen Santos Urea nitrogen [Mass/Vol] 36.0 mg/dL Critically high 9.0-20.0 [facility] Comment on above: Performed By: #### M G, RENAL #### [facility] [id number] Karen Santos US KIDNEYSon 10-29-2021 US [...] ADRIENNE MOLINA Date: 2021-10-29 09:39 Normal [facility] BNPon 09-13-2021 Natriuretic peptide B (Bld) [Mass/Vol] 316.0 pg/mL Normal <=900.0 [facility] Comment on above: Performed By: #### C BC #### [facility] [address] [address] [address] Karen Santos CBC AUTO DIFFon 09-13-2021 BASO # 0.1 103/ul Normal 0.0-0.1 [facility] Comment on above: Performed By: #### M G, RENAL #### [facility] [address] [address] [address] Karen Santos Basophils/100 WBC (Bld) 0.5 % Normal 0.2-2.0 [facility] Comment on above: Performed By: #### M G, RENAL #### [facility] [address] [place] [address] Dr. Karen Santos EO # 0.3 103/ul Normal 0.0-0.7 [facility] Comment on above: Performed By: #### M G, RENAL #### [facility] [address] [place] [address] Dr. Karen Santos Eosinophils/100 WBC (Bld) 2.9 % Normal 0.9-7.0 [facility] Comment on above: Performed By: #### M G, RENAL #### [facility] [address] [place] [address] Dr. Karen Santos Erythrocyte distribution width (RBC) [Ratio] 14.9 % Normal 11.0-15.0 [facility] Comment on above: Performed By: #### M G, RENAL #### [facility] [address] [place] [address] Dr. Karen Santos Hematocrit (Bld) [Volume fraction] 38.3 % Critically low 42.0-54.0 [facility] Comment on above: Performed By: #### M G, RENAL #### [facility] [address] [place] [address] Dr. Karen Santos Hemoglobin (Bld) [Mass/Vol] 12.9 g/dL Critically low 14.0-18.0 [facility] Comment on above: Performed By: #### M G, RENAL #### [facility] [address] [place] [address] Dr. Karen Santos IG # 0.07 10e3/ul Critically high 0.00-0.03 [facility] Comment on above: Performed By: #### M G, RENAL #### [facility] [address] [place] [address] Dr. Karen Santos IG % 0.6 % Critically high 0.0-0.5 [facility] Comment on above: Performed By: #### M G, RENAL #### [facility] [address] [place] [address] Dr. Karen Santos LYMPH # 2.4 103/ul Normal 1.2-3.8 [facility] Comment on above: Performed By: #### M G, RENAL #### [facility] [address] [place] [address] Dr. Karen Santos Lymphocytes/100 WBC (Bld) 21.3 % Normal 20.5-60.0 [facility] Comment on above: Performed By: #### M G, RENAL #### [facility] [address] [place] [address] Dr. Karen Santos MANUAL DIFF REQ NO Normal [facility] Comment on above: Performed By: #### M G, RENAL #### [facility] [address] [place] [address] Dr. Karen Santos MCH (RBC) [Entitic mass] 33.6 pg Normal 25.9-34.0 [facility] Comment on above: Performed By: #### M G, RENAL #### [facility] [address] [place] [address] Dr. Karen Santos MCHC (RBC) [Mass/Vol] 33.7 g/dL Normal 29.9-35.2 [facility] Comment on above: Performed By: #### M G, RENAL #### [facility] [address] [place] [address] Dr. Karen Santos MCV (RBC) [Entitic vol] 99.7 fL Critically high 80.0-94.0 [facility] Comment on above: Performed By: #### M G, RENAL #### [facility] [address] [place] [address] Dr. Karen Santos MONO # 0.8 103/ul Normal 0.3-0.8 [facility] Comment on above: Performed By: #### M G, RENAL #### [facility] [address] [place] [address] Dr. Karen Santos Monocytes/100 WBC (Bld) 7.2 % Normal 1.7-12.0 [facility] Comment on above: Performed By: #### M G, RENAL #### [facility] [address] [place] [address] Dr. Karen Santos NEUT # 7.7 103/ul Critically high 1.4-6.5 [facility] Comment on above: Performed By: #### M G, RENAL #### [facility] [address] [address] [address] Karen Santos Neutrophils/100 WBC (Bld) 67.5 % Normal 43.0-75.0 [facility] Comment on above: Performed By: #### M G, RENAL #### [facility] [address] [address] [address] Karen Santos Platelet mean volume (Bld) [Entitic vol] 9.4 fL Critically low 9.5-13.5 [facility] Comment on above: Performed By: #### M G, RENAL #### [facility] [address] [place] [address] Dr. Karen Santos PLT 330 103/ul Normal 150-450 [facility] Comment on above: Performed By: #### M G, RENAL #### [facility] [address] [address] [address] Karen Santos RBC 3.84 106/ul Critically low 4.70-6.10 [facility] Comment on above: Performed By: #### M G, RENAL #### [facility] [address] [place] [address] Dr. Karen Santos WBC 11.4 103/ul Critically high 4.0-11.0 [facility] Comment on above: Performed By: #### M G, RENAL #### [facility] [address] [address] [address] Karen Santos PROF 14(COMP METB)on 021 Albumin [Mass/Vol] 3.7 g/dL Normal 3.5-5.0 [facility] Comment on above: Performed By: #### C BC #### [facility] [address] [place] [address] Dr. Karen Santos Albumin/Globulin [Mass ratio] 0.8 {ratio} Normal [facility] Comment on above: Performed By: #### C BC #### [facility] [address] [address] [address] Karen Santos ALP [Catalytic activity/Vol] 113 U/L Normal 38-126 [facility] Comment on above: Performed By: #### C BC #### [facility] [address] [place] [address] Dr. Karen Santos ALT [Catalytic activity/Vol] 20 U/L Critically low 21-72 [facility] Comment on above: Performed By: #### C BC #### [facility] [address] [place] [address] Dr. Karen Santos Anion gap [Moles/Vol] 14.1 mmol/L Normal Th [facility] Comment on above: Performed By: #### C BC #### [facility] [address] [place] [address] Dr. Karen Santos AST [Catalytic activity/Vol] 8 U/L Critically low 17-59 [facility] Comment on above: Performed By: #### C BC #### [facility] [address] [place] [address] Dr. Karen Santos Bilirubin [Mass/Vol] 0.3 mg/dL Normal 0.2-1.3 [facility] Comment on above: Performed By: #### C BC #### [facility] [address] [place] [address] Dr. Karen Santos Calcium [Mass/Vol] 9.3 mg/dL Normal 8.4-10.2 [facility] Comment on above: Performed By: #### C BC #### [facility] [address] [place] [address] Dr. Karen Santos Chloride [Moles/Vol] 103 mmol/L Normal 98-107 [facility] Comment on above: Performed By: #### C BC #### [facility] [address] [place] [address] Dr. Karen Santos CO2 [Moles/Vol] 23.7 mmol/L Normal 22.0-30.0 [facility] Comment on above: Performed By: #### C BC #### [facility] [address] [place] [address] Dr. Karen Santos Creatinine [Mass/Vol] 2.16 mg/dL Critically high 0.66-1.25 [facility] Comment on above: Performed By: #### C BC #### [facility] [address] [address] [address] Karen Santos EGFR-AF [place] 39 mL/min/1.73m2 Critically low >=60 [facility] Comment on above: Performed By: #### C BC #### [facility] [address] [address] [address] Karen Santos EGFR-NON AF [place] 32 mL/min/1.73m2 Critically low >=60 [facility] Comment on above: Performed By: #### C BC #### [facility] [address] [place] [address] Dr. Karen Santos Globulin (S) [Mass/Vol] 4.5 g/dL Normal [facility] Comment on above: Performed By: #### C BC #### [facility] [address] [address] [address] Karen Santos Glucose [Mass/Vol] 101 mg/dL Normal 74-106 [facility] Comment on above: Performed By: #### C BC #### [facility] [address] [address] [address] Karen Santos Potassium [Moles/Vol] 3.8 mmol/L Normal 3.4-5.0 [facility] Comment on above: Performed By: #### C BC #### [facility] [address] [place] [address] Dr. Karen Santos Protein [Mass/Vol] 8.2 g/dL Normal 6.1-8.2 [facility] Comment on above: Performed By: #### C BC #### [facility] [address] [place] [address] Dr. Karen Santos Sodium [Moles/Vol] 137 mmol/L Normal 137-145 [facility] Comment on above: Performed By: #### C BC #### [facility] [address] [place] [address] Dr. Karen Santos Urea nitrogen [Mass/Vol] 18.0 mg/dL Normal 9.0-20.0 [facility] Comment on above: Performed By: #### C BC #### [facility] [address] [place] [address] Dr. Karen Santos Urea nitrogen/Creatinine [Mass ratio] 8.3 mg/mg Normal [facility] Comment on above: Performed By: #### C BC #### [facility] [address] [place] [address] Dr. Karen Santos TROPONIN, HIGH SENSITIVITYon 09-13-2021 HSTROP 12.1 pg/mL Normal 4.0-42.2 [facility] Comment on above: Result Comment: CUT- OFF POINTS HAVE BEEN ESTABLISHED BASED ON THE FOURTH UNIVERSAL DEFINITIONS OF MYOCARDIAL INFARCTION. THE UPPER REFERENCE LIMIT (URL) OF TROPONIN, DEFINED THE 99TH PERCENTILE OF cTnI DISTRIBUTION IN A REFERENCE POPULATION, HAS BEEN CONFIRMED THE DECISION THRESHOLD FOR MA DIAGNOSIS. Performed By: #### C BC #### [facility] [address] [place] [address] Dr. Karen Santos XR CHEST 1 Von [...] SANDRA SINGH Date: 2021-09-13 21:26 Normal [facility] CBC AUTO DIFFon 09-10-2021 BASO # 0.1 103/ul Normal 0.0-0.1 [facility] Comment on above: Performed By: #### C BC #### [facility] [address] [place] [address] Dr. Karen Santos Basophils/100 WBC (Bld) 0.7 % Normal 0.2-2.0 [facility] Comment on above: Performed By: #### C BC #### [facility] [address] [place] [address] Dr. Karen Santos EO # 0.3 103/ul Normal 0.0-0.7 [facility] Comment on above: Performed By: #### C BC #### [facility] [address] [place] [address] Dr. Karen Santos Eosinophils/100 WBC (Bld) 2.3 % Normal 0.9-7.0 [facility] Comment on above: Performed By: #### C BC #### [facility] [address] [place] [address] Dr. Kraen Santos Erythrocyte distribution width (RBC) [Ratio] 14.5 % Normal 11.0-15.0 [facility] Comment on above: Performed By: #### C BC #### [facility] [address] [place] [address] Dr. Karen Santos Hematocrit (Bld) [Volume fraction] 42.8 % Normal 42.0-54.0 [facility] Comment on above: Performed By: #### C BC #### [facility] [address] [place] [address] Dr. Karen Santos Hemoglobin (Bld) [Mass/Vol] 14.5 g/dL Normal 14.0-18.0 [facility] Comment on above: Performed By: #### C BC #### [facility] [address] [place] [address] Dr. Karen Santos IG # 0.06 10e3/ul Critically high 0.00-0.03 [facility] Comment on above: Performed By: #### C BC #### [facility] [address] [place] [address] Dr. Karen Santos IG % 0.6 % Critically high 0.0-0.5 [facility] Comment on above: Performed By: #### C BC #### [facility] [address] [place] [address] Dr. Karen Santos LYMPH # 1.8 103/ul Normal 1.2-3.8 [facility] Comment on above: Performed By: #### C BC #### [facility] [address] [place] [address] Dr. Karen Santos Lymphocytes/100 WBC (Bld) 16.5 % Critically low 20.5-60.0 [facility] Comment on above: Performed By: #### C BC #### [facility] [address] [place] [address] Dr. Karen Santos MANUAL DIFF REQ NO Normal [facility] Comment on above: Performed By: #### C BC #### [facility] [address] [place] [address] Dr. Karen Santos MCH (RBC) [Entitic mass] 33.5 pg Normal 25.9-34.0 [facility] Comment on above: Performed By: #### C BC #### [facility] [address] [place] [address] Dr. Karen Santos MCHC (RBC) [Mass/Vol] 33.9 g/dL Normal 29.9-35.2 [facility] Comment on above: Performed By: #### C BC #### [facility] [address] [place] [address] Dr. Karen Santos MCV (RBC) [Entitic vol] 98.8 fL Critically high 80.0-94.0 [facility] Comment on above: Performed By: #### C BC #### [facility] [address] [place] [address] Dr. Karen Santos MONO # 0.6 103/ul Normal 0.3-0.8 [facility] Comment on above: Performed By: #### C BC #### [facility] [address] [place] [address] Dr. Karen Santos Monocytes/100 WBC (Bld) 5.6 % Normal 1.7-12.0 [facility] Comment on above: Performed By: #### C BC #### [facility] [address] [place] [address] Dr. Karen Santos NEUT # 7.9 103/ul Critically high 1.4-6.5 [facility] Comment on above: Performed By: #### C BC #### [facility] [address] [place] [address] Dr. Karen Santos Neutrophils/100 WBC (Bld) 74.3 % Normal 43.0-75.0 [facility] Comment on above: Performed By: #### C BC #### [facility] [address] [place] [address] Dr. Karen Santos Platelet mean volume (Bld) [Entitic vol] 9.2 fL Critically low 9.5-13.5 [facility] Comment on above: Performed By: #### C BC #### [facility] [address] [place] [address] Dr. Karen Santos PLT 348 103/ul Normal 150-450 [facility] Comment on above: Performed By: #### C BC #### [facility] [address] [place] [address] Dr. Karen Santos RBC 4.33 106/ul Critically low 4.70-6.10 [facility] Comment on above: Performed By: #### C BC #### [facility] [address] [place] [address] Dr. Karen Santos WBC 10.7 103/ul Normal 4.0-11.0 [facility] [facility] Comment on above: Performed By: #### C BC #### [facility] [address] [place] [address] Dr. Karen Santos PROF 14(COMP METB)on 021 Albumin [Mass/Vol] 4.2 g/dL Normal 3.5-5.0 [facility] Comment on above: Performed By: #### C MICHAEL HSTROPN, TSH #### [facility] [address] [place] [address] Dr. Karen Santos Albumin/Globulin [Mass ratio] 0.8 {ratio} Normal [facility] Comment on above: Performed By: #### C MICHAEL HSTROPN, TSH #### [facility] [address] [place] [address] Dr. Karen Santos ALP [Catalytic activity/Vol] 124 U/L Normal 38-126 [facility] Comment on above: Performed By: #### C MICHAEL HSTROPN, TSH #### [facility] [address] [place] [address] Dr. Karen Santos ALT [Catalytic activity/Vol] 24 U/L Normal 21-72 [facility] Comment on above: Performed By: #### C MICHAEL HSTROPN, TSH #### [facility] [address] [address] [address] Karen Santos Anion gap [Moles/Vol] 13.9 mmol/L Normal Th e [facility] Comment on above: Performed By: #### C MICHAEL HSTROPN, TSH #### [facility] [address] [address] [address] Karen Santos AST [Catalytic activity/Vol] 17 U/L Normal 17-59 [facility] Comment on above: Performed By: #### C MICHAEL HSTROPN, TSH #### [facility] [address] [place] [address] Dr. Karen Santos Bilirubin [Mass/Vol] 0.4 mg/dL Normal 0.2-1.3 [facility] Comment on above: Performed By: #### C MICHAEL HSTROPN, TSH #### [facility] [address] [place] [address] Dr. Karen Santos Calcium [Mass/Vol] 9.5 mg/dL Normal 8.4-10.2 [facility] Comment on above: Performed By: #### C MICHAEL HSTROPN, TSH #### [facility] [address] [place] [address] Dr. Karen Santos Chloride [Moles/Vol] 101 mmol/L Normal 98-107 [facility] Comment on above: Performed By: #### C MICHAEL, HSTROPN, TSH #### [facility] [address] [place] [address] Dr. Karen Santos CO2 [Moles/Vol] 26.0 mmol/L Normal 22.0-30.0 [facility] Comment on above: Performed By: #### C MICHAEL, HSTROPN, TSH #### [facility] [address] [place] [address] Dr. Karen Santos Creatinine [Mass/Vol] 2.35 mg/dL Critically high 0.66-1.25 [facility] Comment on above: Performed By: #### C MP, HSTROPN, TSH #### [facility] [address] [address] [address] Karen Santos EGFR-AF [place]TH [place]ORE[place] 35 mL/min/1.73m2 Critically low >=60 [facility] Comment on above: Performed By: #### C MP, HSTROPN, TSH #### [facility] [address] [place] [address] Dr. Karen Santos EGFR-NON AF [place] 29 mL/min/1.73m2 Critically low >=60 [facility] Comment on above: Performed By: #### C MP, HSTROPN, TSH #### [facility] [address] [place] [address] Dr. Karen Santos Globulin (S) [Mass/Vol] 5.1 g/dL Normal [facility] Comment on above: Performed By: #### C MP, HSTROPN, TSH #### [facility] [address] [place] [address] Dr. Karen Santos Glucose [Mass/Vol] 105 mg/dL Normal 74-106 [facility] Comment on above: Performed By: #### C MP, HSTROPN, TSH #### [facility] [address] [place] [address] Dr. Karen Santos Potassium [Moles/Vol] 3.9 mmol/L Normal 3.4-5.0 [facility] Comment on above: Performed By: #### C MP, HSTROPN, TSH #### [facility] [address] [place] [address] Dr. Karen Santos Protein [Mass/Vol] 9.3 g/dL Critically high 6.1-8.2 [facility] Comment on above: Performed By: #### C MP, HSTROPN, TSH #### [facility] [address] [place] [address] Dr. Karen Santos Sodium [Moles/Vol] 137 mmol/L Normal 137-145 [facility] Comment on above: Performed By: #### C MP, HSTROPN, TSH #### [facility] [address] [address] [address] Karen Santos Urea nitrogen [Mass/Vol] 17.0 mg/dL Normal 9.0-20.0 [facility] Comment on above: Performed By: #### C MP, HSTROPN, TSH #### [facility] [address] [address] [address] Karen Santos Urea nitrogen/Creatinine [Mass ratio] 7.2 mg/mg Normal [facility] Comment on above: Performed By: #### C MP, HSTROPN, TSH #### [facility] [address] [address] [address] Karen Santos PROTIMEon 09-10-2021 INR Coag (PPP) [Relative time] 0.95 {INR} Normal [facility] Comment on above: Performed By: #### P T, PTT ####[facility] [address] [place], [place] [address]DrEva Santos INR GUIDELINES SEE BELOW Normal [facility] Comment on above: Result Comment: PALAK RED INR: 2.0 - 3.0 CONDITIONS NOT LISTED BELOW 2.5 - 3.5 FOR PROSTHETIC HEART VALVE REPLACEMENT 2.5 - 3.5 RECURRENT THROMBOSIS Performed By: #### P T, PTT ####[facility] [id number] [address]DrEva Santos PT Coag (PPP) [Time] 10.3 s Normal 9.0-11.6 [facility] Comment on above: Performed By: #### P T, PTT ####[facility] [id number] [address]DrEva Santos PTTon 09-10-2021 aPTT Coag (Bld) [Time] 25.4 s Normal 22.3-36.2 [facility] Comment on above: Performed By: #### P T, PTT ####[facility] [id number] [address]DrEva Santos TROPONIN, HIGH SENSITIVITYon 09-10-2021 HSTROP 10.9 pg/mL Normal 4.0-42.2 [facility] Comment on above: Result Comment: CUT- OFF POINTS HAVE BEEN ESTABLISHED BASED ON THE FOURTH UNIVERSAL DEFINITIONS OF MYOCARDIAL INFARCTION. THE UPPER REFERENCE LIMIT (URL) OF TROPONIN, DEFINED THE 99TH PERCENTILE OF cTnI DISTRIBUTION IN A REFERENCE POPULATION, HAS BEEN CONFIRMED THE DECISION THRESHOLD FOR MA DIAGNOSIS. Performed By: #### C MP, HSTROPN, TSH #### [facility] [address] [address] [address] Karen Santos TSHon 09-10-2021 TSH 1.298 uIU/mL Normal 0.470-4.680 [facility] Comment on above: Performed By: #### C MP, HSTROPN, TSH #### [facility] [address] [address] [address] Karen Santos TSH RANGE SEE BELOW Normal [facility] Comment on above: Result Comment: <0.3 4 UIU/ml HYPERTHYROID 0.34-5.60 UIU/ml EUTHYROID >5.60 UIU/ml HYPOTHYROID Performed By: #### C MP, HSTROPN, TSH #### [facility] [address] [address] [address] Karen Santos XR CHEST 1 Von [...] by: LUDMILA JOSEPH Date: 2021-09-10 17:42 Normal [facility] Operative Reporton Operative Report MR#: [id number] I [facility] Pt. 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 Normal [facility] BASIC METABOLIC PANELon 10-0 Calcium [Mass/Vol] 8.5 mg/dL Low 8.6-10.3 [facility] Comment on above: Order Comment: No: D o not add to previous draw Performed By: #### 4 1000, 28108, 21558 #### [facility] [address] [place] [address], [facility] Chloride [Moles/Vol] 112 mmol/L High 98-107 [facility] Comment on above: Order Comment: No: D o not add to previous draw Performed By: #### 4 1000, , 37563 #### [facility] [address] [place] [address], [facility] CO2 [Moles/Vol] 17 mmol/L Low 21-31 [facility] Comment on above: Order Comment: No: D o not add to previous draw Performed By: #### 4 1000, , 26336 #### [facility] [address] [place] [address], [place] Creatinine [Mass/Vol] 1.99 mg/dL High 0.70-1.30 [facility] Comment on above: Order Comment: No: D o not add to previous draw Performed By: #### 4 1000, , 02332 #### [facility] [address] [place] [address], [facility] eGFR- 43 ml/min/1.73sq m Abnormal >60 [facility] Comment on above: Order Comment: No: D o not add to previous draw Performed By: #### 4 1000, , 52724 #### [facility] [address] [place] [address], [facility] eGFR- non- 35 ml/min/1.73sq m Abnormal >60 [facility] Comment on above: Order Comment: No: D o not add to previous draw Performed By: #### 4 1000, , 50937 #### [facility] [address] [place] [address], [place] Glucose [Mass/Vol] 106 mg/dL High 70-100 [facility] Comment on above: Order Comment: No: D o not add to previous draw Performed By: #### 4 1000, , 82526 #### [facility] [address] [place] [address], [place] Potassium [Moles/Vol] 4.7 mmol/L Normal 3.5-5.1 [facility] Comment on above: Order Comment: No: D o not add to previous draw Performed By: #### 4 1000, 63856, 24974 #### [facility] [address] [place] [address], [place] Sodium [Moles/Vol] 136 mmol/L Normal 136-145 [facility] Comment on above: Order Comment: No: D o not add to previous draw Performed By: #### 4 1000, 28558, 61865 #### [facility] [address] [place] [address], [facility] Urea nitrogen [Mass/Vol] 25 mg/dL Normal 7-25 [facility] Comment on above: Order Comment: No: D o not add to previous draw Performed By: #### 4 1000, 24264, 41955 #### [facility] [address] [place] [address], [facility] CBC COMPLETE BLOOD COUNTon Erythrocyte distribution width (RBC) [Ratio] 14.3 % Normal 11.5-15.0 [facility] Comment on above: Order Comment: No: D o not add to previous draw Performed By: #### 3 0739 #### [facility] [address] [place] [address], [place] Hematocrit (Bld) [Volume fraction] 35.0 % Low 39.0-50.0 [facility] Comment on above: Order Comment: No: D o not add to previous draw Performed By: #### 3 0739 #### [facility] [address] [place] [address], [place] Hemoglobin (Bld) [Mass/Vol] 11.4 g/dL Low 13.0-17.0 [facility] Comment on above: Order Comment: No: D o not add to previous draw Performed By: #### 3 0739 #### [facility] [address] [place] [address], [place] MCH (RBC) [Entitic mass] 31.1 pg Normal 27.0-33.0 [facility] Comment on above: Order Comment: No: D o not add to previous draw Performed By: #### 3 0739 #### [facility] [address] [place] [address], [facility] MCHC (RBC) [Mass/Vol] 32.6 g/dL Normal 32.0-35.0 [facility] Comment on above: Order Comment: No: D o not add to previous draw Performed By: #### 3 0739 #### [facility] [address] [place] [id number], [facility] MCV (RBC) [Entitic vol] 95.6 fL Normal 82.0-98.0 [facility] Comment on above: Order Comment: No: D o not add to previous draw Performed By: #### 3 0739 #### [facility] [address] [facility] [place] [address], [facility] Nucleated RBC/100 WBC (Bld) [Ratio] 0 % Normal 0-0 [facility] Comment on above: Order Comment: No: D o not add to previous draw Performed By: #### 3 0739 #### [facility] [address] [facility] [address] [place] [id number], [facility] PLAT CNT 212 10*3/uL Normal 150-400 [facility] Comment on above: Order Comment: No: D o not add to previous draw Performed By: #### 3 0739 #### [facility] [address] [place] [id number], [facility] RBC (Bld) [#/Vol] 3.66 10*6/uL Low 4.20-5.70 [facility] Comment on above: Order Comment: No: D o not add to previous draw Performed By: #### 3 0739 #### [facility] [address] [place] [id number], [facility] WBC (Bld) [#/Vol] 11.78 10*3/uL High 4.00-10.60 [facility] Comment on above: Order Comment: No: D o not add to previous draw Performed By: #### 3 0739 #### [facility] [address] [place] [address], [facility] MAGNESIUM BLOODon 07-23-2021 Magnesium [Mass/Vol] 1.8 mg/dL Low 1.9-2.7 [facility] Comment on above: Performed By: #### 4 1000, 48468, 65917 #### [facility] [address] [place] [address], [facility] PHOSPHORUS BLOODon Phosphate [Mass/Vol] 3.5 mg/dL Normal 2.5-5.0 [facility] Comment on above: Performed By: #### 4 1000, 56497, 78991 #### [facility] [address] [place] [address], [facility] *MRSA/MSSA DNA NASALon 07-22 *MRSA/MSSA DNA NASAL Clinical Report: (D ) Specimen/Source: NASAL SWAB/NARES Collected: 07/22/2021 07:45 Status: Final Last Updated: 07/22/2021 11:30 MSSA DNA (Final) Negative MRSA DNA (Final) Negative Normal [facility] Comment on above: Performed By: #### 3 0739 #### [facility] [address] [place] [address], [facility] ACTIVATED CLOTTING TIMEon ACTIVATED CLOTTING TIME 207 sec High 82-152 [facility] Comment on above: Performed By: #### 3 0739 #### [facility] [address] [place] [address], [facility] ACTIVATED CLOTTING TIME 243 sec High 82-152 [facility] Comment on above: Performed By: #### 3 0739 #### [facility] [address] [place] [address], [facility] ACTIVATED CLOTTING TIME 98 sec Normal 82-152 [facility] Comment on above: Performed By: #### 3 0739 #### [facility] [address] [place] [address], [facility] ACTIVATED CLOTTING TIME 189 sec High 82-152 [facility] Comment on above: Performed By: #### 3 0739 #### [facility] [address] [place] [id number], [facility] BASIC METABOLIC PANELon 10-0 -2020 Calcium [Mass/Vol] 8.8 mg/dL Normal 8.6-10.3 [facility] Comment on above: Order Comment: No: D o not add to previous draw Nurse draw Performed By: #### 4 1000, , 12988 #### [facility] [address] [place] [id number], [facility] Chloride [Moles/Vol] 111 mmol/L High 98-107 [facility] Comment on above: Order Comment: No: D o not add to previous draw Nurse draw Performed By: #### 4 1000, , 63950 #### [facility] [address] [place] [id number], [facility] CO2 [Moles/Vol] 18 mmol/L Low 21-31 [facility] Comment on above: Order Comment: No: D o not add to previous draw Nurse draw Performed By: #### 4 1000, , 26585 #### [facility] [address] [place] [id number], [facility] Creatinine [Mass/Vol] 2.23 mg/dL High 0.70-1.30 [facility] Comment on above: Order Comment: No: D o not add to previous draw Nurse draw Performed By: #### 4 1000, , 48903 #### [facility] [address] [place] [id number], [facility] eGFR- 38 ml/min/1.73sq m Abnormal >60 [facility] Comment on above: Order Comment: No: D o not add to previous draw Nurse draw Performed By: #### 4 1000, , 43716 #### [facility] [address] [place] [address], [facility] eGFR- non- 31 ml/min/1.73sq m Abnormal >60 [facility] Comment on above: Order Comment: No: D o not add to previous draw Nurse draw Performed By: #### 4 1000, , 85478 #### [facility] [address] [place] [id number], [facility] Glucose [Mass/Vol] 102 mg/dL High 70-100 [facility] Comment on above: Order Comment: No: D o not add to previous draw Nurse draw Performed By: #### 4 1000, , 85612 #### [facility] [address] [place] [address], [facility] Potassium [Moles/Vol] 4.8 mmol/L Normal 3.5-5.1 [facility] Comment on above: Order Comment: No: D o not add to previous draw Nurse draw Performed By: #### 4 999, , 69918 #### [facility] [address] [place] [address], [facility] Sodium [Moles/Vol] 135 mmol/L Low 136-145 [facility] Comment on above: Order Comment: No: D o not add to previous draw Nurse draw Performed By: #### 4 1000, , 34714 #### [facility] [address] [place] [id number], [facility] Urea nitrogen [Mass/Vol] 28 mg/dL High 7-25 [facility] Comment on above: Order Comment: No: D o not add to previous draw Nurse draw Performed By: #### 4 1000, , 28605 #### [facility] [address] CBC COMPLETE BLOOD COUNTon Erythrocyte distribution width (RBC) [Ratio] 14.5 % Normal 11.5-15.0 [facility] Comment on above: Order Comment: No: D o not add to previous drawNurse draw Performed By: #### 3 0739 #### [facility] [address] [place] [address], [facility] Hematocrit (Bld) [Volume fraction] 38.1 % Low 39.0-50.0 [facility] Comment on above: Order Comment: No: D o not add to previous drawNurse draw Performed By: #### 3 0739 #### [facility] [address] [place] [address], [facility] Hemoglobin (Bld) [Mass/Vol] 12.9 g/dL Low 13.0-17.0 [facility] Comment on above: Order Comment: No: D o not add to previous drawNurse draw Performed By: #### 3 0739 #### [facility] [address] [place] [address], [facility] MCH (RBC) [Entitic mass] 31.2 pg Normal 27.0-33.0 [facility] Comment on above: Order Comment: No: D o not add to previous drawNurse draw Performed By: #### 3 0739 #### [facility] [address] [place] [address], [facility] MCHC (RBC) [Mass/Vol] 33.9 g/dL Normal 32.0-35.0 [facility] Comment on above: Order Comment: No: D o not add to previous drawNurse draw Performed By: #### 3 0739 #### [facility] [address] [place] [address], [facility] MCV (RBC) [Entitic vol] 92.3 fL Normal 82.0-98.0 [facility] Comment on above: Order Comment: No: D o not add to previous drawNurse draw Performed By: #### 3 0739 #### [facility] [address] [place] [id number], [facility] Nucleated RBC/100 WBC (Bld) [Ratio] 0 % Normal 0-0 [facility] Comment on above: Order Comment: No: D o not add to previous drawNurse draw Performed By: #### 3 0739 #### [facility] [address] [place] [address], [facility] PLAT CNT 232 10*3/uL Normal 150-400 [facility] Comment on above: Order Comment: No: D o not add to previous drawNurse draw Performed By: #### 3 0739 #### [facility] [address] [place] [address], [facility] RBC (Bld) [#/Vol] 4.13 10*6/uL Low 4.20-5.70 [facility] Comment on above: Order Comment: No: D o not add to previous drawNurse draw Performed By: #### 3 0739 #### [facility] [address] [place] [place] [address], [facility] WBC (Bld) [#/Vol] 17.03 10*3/uL High 4.00-10.60 [facility] Comment on above: Order Comment: No: D o not add to previous drawNurse draw Performed By: #### 3 0739 #### [facility] [address] [place] [address], [facility] MAGNESIUM BLOODon 07-22-2021 Magnesium [Mass/Vol] 1.9 mg/dL Normal 1.9-2.7 [facility] Comment on above: Order Comment: No: D o not add to previous draw Nurse draw Performed By: #### 4 1000, 75961, 09465 #### [facility] [address] [place] [address], [facility] PHOSPHORUS BLOODon Phosphate [Mass/Vol] 2.8 mg/dL Normal 2.5-5.0 [facility] Comment on above: Order Comment: No: D o not add to previous draw Nurse draw Performed By: #### 4 1000, 46856, 02849 #### [facility] [address] [place] [address], [facility] POC GLUCOSE LABon 07-22-2021 Glucose [Mass/Vol] 103 mg/dL High 70-100 [facility] Comment on above: Performed By: #### 3 0739 #### [facility] [address] [place] [address], [place] Glucose [Mass/Vol] 98 mg/dL Normal 70-100 [facility] Comment on above: Performed By: #### 3 0739 #### [facility] [address] [place] [address], [place] TYPE AND SCREENon 07-22-2021 ABO INTERPRETATION O Normal [facility] Comment on above: Performed By: #### 3 0739 #### [facility] [address] [place] [address], [place] RH INTERPRETATION Positive Normal [facility] Comment on above: Performed By: #### 3 0739 #### [facility] [address] [place] [address], [facility] Office Visit (Vascular Surge ry)on 07-13-2021 [...] DAY Vitals Vital Signs Recorded: 13Jul2021 11:13AM Onqlqcjmqjp89.4 F Heart Rate60 Nldskfhs935 Utiowhhbj85 Height5 ft 11 in Ooiczk856 lb BMI Cphzlzmzzb29.68 kg/m2 BSA Calculated2.2 Tobacco Usea) Yes Patient encouraged to stop using tobacco productsYes Fall Screeninga) No falls within the last year O2 Ttzlestgfj78 Physical Exam Face symmetric EOMI Tongue midline, [...] Jul 13 2021 4:48PM EST (Author) Normal [employer] Tobacco Screening.on 021 Fall risk assessment a) No falls within the last year [facility] Work Phone: Tobacco use status CP a) Yes [facility] Work Phone: Tobacco Screening. Yes [employer] [facility] Work Phone: CBC With Platelet and Differ entialon 09-12-2017 Basophils Auto #/vol (Bld) 0.1 10*3/uL Normal 0.0-0.2 [facility] Basophils/100 WBC Auto (Bld) 0.5 % Normal [facility] Eosinophils 0.2 10*3/uL Normal 0.0-0.7 [facility] Eosinophils/100 leukocytes 1.3 % Normal [facility] Erythrocyte distribution width Auto Ratio (RBC) 13.0 % Normal 11.5-14.5 [facility] Erythrocytes (RBC) 5.29 10*6/uL Normal 4.70-6.10 [facility] Hematocrit (HCT) 49.9 % Normal 42.0-52.0 [facility] Hemoglobin mass conc (Bld) 16.5 g/dL Normal 14.0-18.0 [facility] Lymphocytes 3.4 10*3/uL Normal 1.0-4.8 [facility] Lymphocytes/100 leukocytes 28.7 % Normal [facility] MCH 31.1 pg Normal 27.0-31.3 [facility] MCHC mass conc (RBC) 33.0 % Normal 33.0-37.0 [facility] MCV 94.4 fL Normal 80.0-100.0 [facility] Monocytes 0.9 10*3/uL Critically high 0.2-0.8 [facility] Monocytes/100 leukocytes 7.3 % Normal [facility] Neutrophils 7.5 10*3/uL Critically high 1.4-6.5 [facility] Neutrophils/100 leukocytes 62.2 % Normal [facility] Platelets 326 10*3/uL Normal 130-400 [facility] WBC (Leukocytes) 12.0 10*3/uL Critically high 4.8-10.8 M [facility] Comprehensive Metabolic Pane fletcher 09-12-2017 Alanine aminotransferase (ALT) 21 U/L Normal 0-41 [facility] Albumin 4.5 g/dL Normal 3.9-4.9 [facility] Alkaline phosphatase (ALP) 82 U/L Normal 35-104 [facility] Anion gap 12 mmol/L Normal 7-13 [facility] Aspartate aminotransferase (AST) 14 U/L Normal 0-40 [facility] Bilirubin (total) 0.3 mg/dL Normal 0.0-1.2 [facility] Calcium 9.8 mg/dL Normal 8.6-10.2 [facility] Chloride 99 mmol/L Normal 98-107 [facility] CO2 26 mmol/L Normal 22-29 [facility] Creatinine 0.97 mg/dL Normal 0.70-1.20 [facility] eGFR (black) mL/min/{1.73_m2} Normal >60 [facility] Comment on above: Result Comment: >60 mL/min/1.73m2 EGFR, calc. for ages 18 and older using theMDRD formula (not corrected for weight), is valid for stablerenal function. eGFR (MDRD) mL/min/{1.73_m2} Normal >60 [facility] Comment on above: Result Comment: >60 mL/min/1.73m2 EGFR, calc. for ages 18 and older using theMDRD formula (not corrected for weight), is valid for stablerenal function. Globulin 3.0 g/dL Normal 2.3-3.5 [facility] Glucose mass conc 91 mg/dL Normal 74-109 [facility] Potassium molar conc 4.3 mmol/L Normal 3.5-5.1 [facility] Protein 7.5 g/dL Normal 6.4-8.1 [facility] Sodium 137 mmol/L Normal 132-144 [facility] Urea nitrogen 11 mg/dL Normal 6-20 [facility] TSH w/out Reflexon Thyroid stimulating hormone (TSH) 8.830 uIU/mL Critically high 0.270-4.20 [facility] Vital Signs Date Time Vital Sign Value Performing Clinician Facility 07-20-2025 10:24-040 Body height 180.34 cm Shantell Sea [employer] Work Phone: [facility] 07-20-2025 10:24-0400 Body mass index (BMI) [Ratio] 26.3 kg/m2 Shantellbrenda Osei [employer] Work Phone: [facility] 07-20-2025 10:24-040 Body temperature 96.9 [degF] Shantellbrenda Osei [employer] Work Phone: [facility] 07-20-2025 10:24-0400 Body weight 85.72 kg Shantellbrenda Osei [employer] Work Phone: [facility] 07-20-2025 10:24-0400 Diastolic blood pressure 82 mm[Hg] Shantellbrenda Osei [employer] Work Phone: [facility] 07-20-2025 10:24-0400 Heart rate 87 /min Shantellbrenda Osei [employer] Work Phone: [facility] 07-20-2025 10:24-0400 SaO2% (BldA) [Mass fraction] 97 % Shantell Osei [employer] Work Phone: [facility] 07-20-2025 10:24-0400 Systolic blood pressure 162 mm[Hg] Shantell Osei [employer] Work Phone: [facility] 06-18-2025 14:04-0400 Body height 180.34 cm Shantell Osei [employer] Work Phone: [facility] 06-18-2025 14:04-0400 Body mass index (BMI) [Ratio] 26.6 kg/m2 Shantell Osei [employer] Work Phone: [facility] 06-18-2025 14:04-0400 Body temperature 97.2 [degF] Shantell Osei [employer] Work Phone: [facility] 06-18-2025 14:04-0400 Body weight 86.63 kg Shantell Osei [employer] Work Phone: [facility] 06-18-2025 14:04-0400 Diastolic blood pressure 72 mm[Hg] Shantell Osei [employer] Work Phone: [facility] 06-18-2025 14:04-0400 Heart rate 88 /min Shantell Osei [employer] Work Phone: [facility] 06-18-2025 14:04-0400 SaO2% (BldA) [Mass fraction] 96 % Shantell Osei [employer] Work Phone: [facility] 06-18-2025 14:04-0400 Systolic blood pressure 120 mm[Hg] Shantell Osei [employer] Work Phone: [facility] 06-18-2025 12:05-0400 Body temperature 97.8 [degF] Shantell Sea [employer] Work Phone: [facility] 06-18-2025 12:05-0400 Diastolic blood pressure 70 mm[Hg] Shantell Zavalaault [employer] Work Phone: [facility] 06-18-2025 12:05-0400 Heart rate 102 /min Shantellbrenda Osei [employer] Work Phone: [facility] 06-18-2025 12:05-0400 SaO2% (BldA) [Mass fraction] 94 % Shantell Sea [employer] Work Phone: [facility] 06-18-2025 12:05-0400 Systolic blood pressure 130 mm[Hg] Shantell Osei [employer] Work Phone: [facility] 05-28-2025 12:28-0400 Body temperature 98 [degF] Shantell Zavalaault [employer] Work Phone: [facility] 05-28-2025 12:28-0400 Diastolic blood pressure 74 mm[Hg] Shantell Zavalaault [employer] Work Phone: [facility] 05-28-2025 12:28-0400 Heart rate 64 /min Shantell Osei [employer] Work Phone: [facility] 05-28-2025 12:28-0400 SaO2% (BldA) [Mass fraction] 95 % Shantell Osei [employer] Work Phone: [facility] 05-28-2025 12:28-0400 Systolic blood pressure 122 mm[Hg] Shantell Sea [employer] Work Phone: [facility] 05-20-2025 17:03-0400 Body temperature 97.7 [degF] Shantell Sea [employer] Work Phone: [facility] 05-20-2025 17:03-0400 Diastolic blood pressure 76 mm[Hg] Shantell Sea [employer] Work Phone: [facility] 05-20-2025 17:03-0400 Heart rate 73 /min Shantell Osei [employer] Work Phone: [facility] 05-20-2025 17:03-0400 Respiratory rate 20 /min Shantell Osei [employer] Work Phone: [facility] 05-20-2025 17:03-0400 SaO2% (BldA) [Mass fraction] 98 % Shantell Osei [employer] Work Phone: [facility] 05-20-2025 17:03-0400 Systolic blood pressure 178 mm[Hg] Shantell Osei [employer] Work Phone: [facility] 05-20-2025 07:00-0400 Inhaled oxygen flow rate 2 L/min Shantell Zavalaault [employer] Work Phone: [facility] 05-20-2025 04:15-0400 Inhaled oxygen concentration 30 % Shantell Osei [employer] Work Phone: [facility] 05-20-2025 02:43-0400 Body height 180.34 cm Shantell Osei [employer] Work Phone: [facility] 05-20-2025 02:43-0400 Body weight 92.4 kg Shantell Osei [employer] Work Phone: [facility] 05-11-2025 08:40-0400 Diastolic blood pressure 84 mm[Hg] Shantell Zavalaault [employer] Work Phone: [facility] 05-11-2025 08:40-0400 Heart rate 78 /min Shantell Zavalaault [employer] Work Phone: [facility] 05-11-2025 08:40-0400 Respiratory rate 16 /min Shantell Zavalaault [employer] Work Phone: [facility] 05-11-2025 08:40-0400 SaO2% (BldA) [Mass fraction] 100 % Shantell Osei [employer] Work Phone: [facility] 05-11-2025 08:40-0400 Systolic blood pressure 157 mm[Hg] Shantell Osei [employer] Work Phone: [facility] 05-11-2025 07:26-0400 Body height 182.88 cm Shantell Osei [employer] Work Phone: [facility] 05-11-2025 07:26-0400 Body weight 90.71 kg Shantell Osei [employer] Work Phone: [facility] 05-06-2025 10:37-0400 Body temperature 97.6 [degF] Shantell Osei [employer] Work Phone: [facility] 05-06-2025 10:37-0400 Diastolic blood pressure 76 mm[Hg] Shantell Osei [employer] Work Phone: [facility] 05-06-2025 10:37-0400 Heart rate 67 /min Shantell Osei [employer] Work Phone: [facility] 05-06-2025 10:37-0400 Respiratory rate 16 /min Shantell Osei [employer] Work Phone: [facility] 05-06-2025 10:37-0400 SaO2% (BldA) [Mass fraction] 98 % Shantell Osei [employer] Work Phone: [facility] 05-06-2025 10:37-0400 Systolic blood pressure 126 mm[Hg] Shantell Osei [employer] Work Phone: [facility] 04-28-2025 10:55-0400 Body temperature 98.2 [degF] Shantell Osei [employer] Work Phone: [facility] 04-28-2025 10:55-0400 Diastolic blood pressure 80 mm[Hg] Shantell Zavalaault [employer] Work Phone: [facility] 04-28-2025 10:55-0400 Heart rate 78 /min Shantell Sea [employer] Work Phone: [facility] 04-28-2025 10:55-0400 SaO2% (BldA) [Mass fraction] 100 % Shantell Sea [employer] Work Phone: [facility] 04-28-2025 10:55-0400 Systolic blood pressure 178 mm[Hg] Shantell Zavalaault [employer] Work Phone: [facility] 04-14-2025 21:09-0400 Body temperature 97.4 [degF] Shantell Zavalaault [employer] Work Phone: [facility] 04-14-2025 21:09-0400 Diastolic blood pressure 88 mm[Hg] Shantell Zavalaault [employer] Work Phone: [facility] 04-14-2025 21:09-0400 Heart rate 90 /min Shantell Zavalaault [employer] Work Phone: [facility] 04-14-2025 21:09-0400 Respiratory rate 18 /min Shantell Zavalaault [employer] Work Phone: [facility] 04-14-2025 21:09-0400 SaO2% (BldA) [Mass fraction] 99 % Shantell Zavalaault [employer] Work Phone: [facility] 04-14-2025 21:09-0400 Systolic blood pressure 148 mm[Hg] Shantell Sea [employer] Work Phone: [facility] 04-14-2025 15:40-0400 Inhaled oxygen flow rate 8 L/min Shantell Zavalaault [employer] Work Phone: [facility] 04-14-2025 11:15-0400 Body height 180.34 cm Shantell Osei [employer] Work Phone: [facility] 04-14-2025 11:15-0400 Body weight 90.71 kg Shantell Osei [employer] Work Phone: [facility] 04-13-2025 15:33-0400 Diastolic blood pressure 94 mm[Hg] Shantell Osei [employer] Work Phone: [facility] 04-13-2025 15:33-0400 Heart rate 93 /min Shantellbrenda Osei [employer] Work Phone: [facility] 04-13-2025 15:33-0400 Respiratory rate 20 /min Shantell Osei [employer] Work Phone: [facility] 04-13-2025 15:33-0400 SaO2% (BldA) [Mass fraction] 99 % Shantell Osei [employer] Work Phone: [facility] 04-13-2025 15:33-0400 Systolic blood pressure 185 mm[Hg] Shantell Osei [employer] Work Phone: [facility] 04-13-2025 13:32-0400 Body height 180.34 cm Shantell Osei [employer] Work Phone: [facility] 04-13-2025 13:32-0400 Body temperature 97.8 [degF] Shantell Osei [employer] Work Phone: [facility] 04-13-2025 13:32-0400 Body weight 89 kg Shantell Osei [employer] Work Phone: [facility] 04-13-2025 13:07-0400 Diastolic blood pressure 98 mm[Hg] Shantell Osei [employer] Work Phone: [facility] 04-13-2025 13:07-0400 Heart rate 95 /min Shantell Osei [employer] Work Phone: [facility] 04-13-2025 13:07-0400 Respiratory rate 16 /min Shantell Osei [employer] Work Phone: [facility] 04-13-2025 13:07-0400 SaO2% (BldA) [Mass fraction] 96 % Shantell Osei [employer] Work Phone: [facility] 04-13-2025 13:07-0400 Systolic blood pressure 203 mm[Hg] Shantell Osei [employer] Work Phone: [facility] 04-13-2025 09:50-0400 Body height 180.34 cm Shantell Osei [employer] Work Phone: [facility] 04-13-2025 09:50-0400 Body weight 90 kg Shantell Osei [employer] Work Phone: [facility] 04-01-2025 10:44-0400 Body height 180.34 cm Shantell Osei [employer] Work Phone: [facility] 04-01-2025 10:44-0400 Body weight 90.71 kg Shantell Osei [employer] Work Phone: [facility] 02-26-2025 13:04-0400 Body temperature 98 [degF] Shantell Osei [employer] Work Phone: [facility] 02-26-2025 13:04-0400 Diastolic blood pressure 80 mm[Hg] Shantell Osei [employer] Work Phone: [facility] 02-26-2025 13:04-0400 Heart rate 93 /min Shantell Osei [employer] Work Phone: [facility] 02-26-2025 13:04-0400 Inhaled oxygen concentration 45 % Shantell Osei [employer] Work Phone: [facility] 02-26-2025 13:04-0400 Respiratory rate 20 /min Shantell Osei [employer] Work Phone: [facility] 02-26-2025 13:04-0400 SaO2% (BldA) [Mass fraction] 99 % Shantellbrenda Osei [employer] Work Phone: 0(264)[phone] [place] [address] 02-26-2025 13:04-0400 Systolic blood pressure 141 mm[Hg] Shantell Osei [employer] Work Phone: 4(389)534-[address] [place] [address] 02-26-2025 06:00-0400 Body weight 86.1 kg Shantell Osei [employer] Work Phone: 5(724)152-[address]158 [place] [address] 02-25-2025 15:59-0400 Body height 180.34 cm Shantell Osei [employer] Work Phone: [facility] 02-25-2025 11:00-0400 Inhaled oxygen flow rate 2 L/min Shantell Osei [employer] Work Phone: [facility] 02-23-2025 11:10-0400 Body temperature 98.2 [degF] Shantell Osei [employer] Work Phone: [facility] 02-23-2025 11:10-0400 Diastolic blood pressure 88 mm[Hg] Shantell Osei [employer] Work Phone: [facility] 02-23-2025 11:10-0400 Heart rate 82 /min Shantell Zavalaault [employer] Work Phone: [facility] 02-23-2025 11:10-0400 Respiratory rate 16 /min Shantell Zavalaault [employer] Work Phone: [facility] 02-23-2025 11:10-0400 SaO2% (BldA) [Mass fraction] 98 % Shantell Zavalaault [employer] Work Phone: 2(974)632-892358 [place] [address] 02-23-2025 11:10-0400 Systolic blood pressure 138 mm[Hg] Shantell Osei [employer] Work Phone: [facility] 02-05-2025 16:31-0400 Diastolic blood pressure 94 mm[Hg] PHYSICIAN NO [facility] 02-05-2025 16:31-0400 Heart rate 90 /min PHYSICIAN NO [facility] 02-05-2025 16:31-0400 Respiratory rate 16 /min PHYSICIAN NO [facility] 02-05-2025 16:31-0400 SaO2% (BldA) [Mass fraction] 97 % PHYSICIAN NO [facility] 02-05-2025 16:31-0400 Systolic blood pressure 162 mm[Hg] PHYSICIAN NO [facility] 02-05-2025 16:00-0400 Inhaled oxygen flow rate 1 L/min PHYSICIAN NO [facility] 02-05-2025 13:12-0400 Body height 180.34 cm PHYSICIAN NO [facility] 02-05-2025 13:12-0400 Body weight 90.71 kg PHYSICIAN NO [facility] 02-03-2025 11:39-0400 Body temperature 98.01 [degF] Tracie Sanches CLINICAL OPERATIONS CONSULTANT Work Phone: [facility] 02-03-2025 11:39-0400 Diastolic blood pressure 50 mm[Hg] Tracie Sanches CLINICAL OPERATIONS CONSULTANT Work Phone: [facility] 02-03-2025 11:39-0400 Heart rate 140 /min Tracie Sanches CLINICAL OPERATIONS CONSULTANT Work Phone: [facility] 02-03-2025 11:39-0400 Systolic blood pressure 90 mm[Hg] Tracie Sanches CLINICAL OPERATIONS CONSULTANT Work Phone: [facility] 02-03-2025 11:34-0400 Body weight 87 kg Tracie Sanches CLINICAL OPERATIONS CONSULTANT Work Phone: [facility] 04-27-2024 11:00-0400 Diastolic blood pressure 97 mm[Hg] Maurice Willis MD Work Phone: [facility] 04-27-2024 11:00-0400 Heart rate 78 /min Maurice Willis MD Work Phone: [facility] 04-27-2024 11:00-0400 Respiratory rate 16 /min Maurice Willis MD Work Phone: [facility] 04-27-2024 11:00-0400 SaO2% (BldA) [Mass fraction] 98 % Maurice Willis MD Work Phone: [facility] [employer] 04-27-2024 11:00-0400 Systolic blood pressure 159 mm[Hg] Maurice Willis MD Work Phone: [facility] 04-27-2024 08:00-0400 Body temperature 98.01 [degF] Maurice Willis MD Work Phone: [facility] [employer] 04-26-2024 18:30-0400 Body mass index (BMI) [Ratio] 26.6 kg/m2 Maurice Willis MD Work Phone: [facility] 04-26-2024 18:30-0400 Body weight 86.5 kg Maurice Willis MD Work Phone: [facility] 04-26-2024 11:15-0400 Body height 180.3 cm Maurice Willis MD Work Phone: [facility] 01-09-2024 12:00-0400 Body temperature 98 [degF] [employer] [facility] 01-09-2024 12:00-0400 Diastolic blood pressure 79 mm[Hg] [employer] [facility] 01-09-2024 12:00-0400 Heart rate 72 /min [employer] [facility] 01-09-2024 12:00-0400 Respiratory rate 22 /min [employer] [facility] 01-09-2024 12:00-0400 SaO2% (BldA) [Mass fraction] 100 % [employer] [facility] 01-09-2024 12:00-0400 Systolic blood pressure 159 mm[Hg] [employer] [facility] 01-09-2024 10:00-0400 Inhaled oxygen flow rate 2 L/min [facility] 01-09-2024 05:31-0400 Body weight 91.6 kg [employer] [facility] 01-09-2024 05:19-0400 Inhaled oxygen concentration 30 % [facility] 01-08-2024 20:52-0400 Body height 180.34 cm [facility] 11-14-2023 14:00-0500 Body height 180.34 cm Live Nguyen Other [facility] 11-14-2023 14:00-0500 Body mass index (BMI) [Ratio] 27.89 kg/m2 Live Nguyen Other [facility] [employer] Other 11-14-2023 14:00-0500 Body temperature 98.4 [degF] Live Nguyen Other [employer] Other 11-14-2023 14:00-0500 Body weight 90.72 kg Live Nguyen Other [employer] Other 11-14-2023 14:00-0500 Body weight 90.71 kg [facility] 11-14-2023 14:00-0500 Diastolic blood pressure 67 mm[Hg] Live Nguyen Other [facility] 11-14-2023 14:00-0500 Systolic blood pressure 123 mm[Hg] Live Nguyen Other [facility] 06-11-2023 12:22-0400 Body height 180.34 cm [facility] 06-11-2023 12:22-0400 Body weight 90.71 kg [facility] 06-11-2023 12:22-0400 Diastolic blood pressure 80 mm[Hg] [facility] 06-11-2023 12:22-0400 Heart rate 97 /min [employer] [facility] 06-11-2023 12:22-0400 Respiratory rate 16 /min [facility] 06-11-2023 12:22-0400 SaO2% (BldA) [Mass fraction] 96 % [facility] 06-11-2023 12:22-0400 Systolic blood pressure 148 mm[Hg] [facility] 05-22-2023 16:23-0400 Body temperature 98 [degF] [facility] 05-22-2023 16:23-0400 Diastolic blood pressure 79 mm[Hg] [facility] 05-22-2023 16:23-0400 Heart rate 92 /min [facility] 05-22-2023 16:23-0400 Respiratory rate 18 /min [facility] 05-22-2023 16:23-0400 SaO2% (BldA) [Mass fraction] 95 % [facility] 05-22-2023 16:23-0400 Systolic blood pressure 151 mm[Hg] [facility] 05-22-2023 04:00-0400 Inhaled oxygen flow rate 2 L/min [facility] 05-22-2023 02:04-0400 [facility] 05-22-2023 02:04-0400 Body weight 97.2 kg [facility] 05-15-2023 17:30-0400 Body height 180.34 cm Donya Mccann Other [employer] Other 05-15-2023 17:30-0400 Body mass index (BMI) [Ratio] 29.7 kg/m2 Donya Mccann Other [employer] Other 05-15-2023 17:30-0400 Body temperature 99.3 [degF] Donya Mccann Other [employer] Other 05-15-2023 17:30-0400 Body weight 96.62 kg Donya Mccann Other [employer] Other 05-15-2023 17:30-0400 Diastolic blood pressure 75 mm[Hg] Donya Mccann Other [employer] Other 05-15-2023 17:30-0400 Respiratory rate 18 /min Donya Mccann Other [employer] Other 05-15-2023 17:30-0400 SaO2% (BldA) [Mass fraction] 99 % Donya Mccann Other [employer] Other 05-15-2023 17:30-0400 Systolic blood pressure 155 mm[Hg] Donya Mccann Other [employer] Other 11-30-2022 11:30-0500 Body height 180.34 cm Shantell Osei Other [employer] Other 11-30-2022 11:30-0500 Body mass index (BMI) [Ratio] 29.98 kg/m2 Shantell Osei Other [employer] Other 11-30-2022 11:30-0500 Body temperature 99.1 [degF] Shantell Osei Other [employer] Other 11-30-2022 11:30-0500 Body weight 97.52 kg Shantell Osei Other [employer] Other 11-30-2022 11:30-0500 Diastolic blood pressure 68 mm[Hg] Shantell Osei Other [employer] Other 11-30-2022 11:30-0500 Respiratory rate 18 /min Shantell Osei Other [employer] Other 11-30-2022 11:30-0500 SaO2% (BldA) [Mass fraction] 95 % Shantell Osei Other [employer] Other 11-30-2022 11:30-0500 Systolic blood pressure 133 mm[Hg] Shantell Osei Other [employer] Other 09-27-2022 11:00-0500 Body height 180.34 cm Patrice Levine Other [employer] Other 09-27-2022 11:00-0500 Body mass index (BMI) [Ratio] 28.59 kg/m2 Patrice Levine Other [employer] Other 09-27-2022 11:00-0500 Body temperature 98.1 [degF] Patrice Levine Other [employer] Other 09-27-2022 11:00-0500 Body weight 92.99 kg Patrice Levine Other [employer] Other 09-27-2022 11:00-0500 Diastolic blood pressure 72 mm[Hg] Patrice Reyescasper Other [employer] Other 09-27-2022 11:00-0500 SaO2% (BldA) [Mass fraction] 96 % Patrice Reyescasper Other [employer] Other 09-27-2022 11:00-0500 Systolic blood pressure 142 mm[Hg] Patrice Reyescasper Other [employer] Other 09-13-2022 10:00-0500 Body height 180.34 cm Raissa Gilllenny Other [employer] Other 09-13-2022 10:00-0500 Body mass index (BMI) [Ratio] 28.59 kg/m2 Raissa Gillemilysuzan Other [employer] Other 09-13-2022 10:00-0500 Body temperature 97.6 [degF] Raissa Gillemilysuzan Other [employer] Other 09-13-2022 10:00-0500 Body weight 92.99 kg Raissa Gillemilysuzan Other [employer] Other 09-13-2022 10:00-0500 Diastolic blood pressure 68 mm[Hg] Raissa Gilllenny Other [employer] Other 09-13-2022 10:00-0500 SaO2% (BldA) [Mass fraction] 94 % Raissa Gilllenny Other [employer] Other 09-13-2022 10:00-0500 Systolic blood pressure 120 mm[Hg] Raissa Oh Other [facility] [employer] Other 08-24-2022 10:30-0500 Diastolic blood pressure 60 mm[Hg] [employer] Shantell Sea Work Phone: [facility] 08-24-2022 10:30-0500 Heart rate 67 /min [employer] Shantell Sea Work Phone: [facility] 08-24-2022 10:30-0500 Respiratory rate 16 /min [employer] Shantell Sea Work Phone: [facility] 08-24-2022 10:30-0500 SaO2% (BldA) [Mass fraction] 94 % [employer] Shantell Sea Work Phone: [facility] 08-24-2022 10:30-0500 Systolic blood pressure 101 mm[Hg] [employer] Shantell Sea Work Phone: [facility] 08-24-2022 10:15-0500 Inhaled oxygen flow rate 4 L/min [employer] Shantell Sea Work Phone: [facility] 08-24-2022 07:32-0500 Body height 180.34 cm [employer] Shantell Sea Work Phone: [facility] 08-24-2022 07:32-0500 Body mass index (BMI) [Ratio] 29.2 kg/m2 [employer] Shantell Sea Work Phone: [facility] 08-24-2022 07:32-0500 Body weight 95.25 kg [employer] Shantell Sea Work Phone: [facility] 08-24-2022 06:57-0500 Body temperature 98.3 [degF] [employer] AT [employer] Shantell Sea Work Phone: [facility] 08-01-2022 10:30-0400 Body height 180.34 cm Gebrer Turnerskip Other [employer] Other 08-01-2022 10:30-0400 Body mass index (BMI) [Ratio] 28.59 kg/m2 Gerber Ruizrer Other [employer] Other 08-01-2022 10:30-0400 Body temperature 98.2 [degF] Gerber Ruizrer Other [employer] Other 08-01-2022 10:30-0400 Body weight 92.99 kg Gerber Ruizrer Other [employer] Other 08-01-2022 10:30-0400 Diastolic blood pressure 62 mm[Hg] Gerber Ruizrer Other [employer] Other 08-01-2022 10:30-0400 SaO2% (BldA) [Mass fraction] 97 % Gerber Johnnyehrer Other [employer] Other 08-01-2022 10:30-0400 Systolic blood pressure 122 mm[Hg] Gerber Turnerehrer Other [employer] Other 07-11-2022 14:25-0400 Body height 180.34 cm [employer]SELOR AT [employer] Shantell Sea Work Phone: [facility] 07-11-2022 14:25-0400 Body mass index (BMI) [Ratio] 28.5 kg/m2 COUNSELOR AT [employer] Shantell Sea Work Phone: [facility] 07-11-2022 14:25-0400 Body weight 92.98 kg [employer]SELOR AT [employer] Shantell Sea Work Phone: [facility] 07-11-2022 10:14-0400 Diastolic blood pressure 87 mm[Hg] [employer] AT [employer] Shantell Sea Work Phone: [facility] 07-11-2022 10:14-0400 Heart rate 82 /min [employer]SELOR AT [employer] Shantell Sea Work Phone: [facility] 07-11-2022 10:14-0400 Respiratory rate 14 /min [employer]SELOR AT [employer] Shantell Sea Work Phone: [facility] 07-11-2022 10:14-0400 SaO2% (BldA) [Mass fraction] 91 % [employer]OR AT [employer] Shantell Sea Work Phone: [facility] 07-11-2022 10:14-0400 Systolic blood pressure 152 mm[Hg] COUNSELOR AT [employer] Shantell Sea Work Phone: [facility] 07-11-2022 08:08-0400 Inhaled oxygen flow rate 2 L/min [employer]SELOR AT [employer] Shantell Sea Work Phone: [facility] 07-11-2022 06:10-0400 Body height 180.34 cm COUNSELOR AT [employer] Shantell Sea Work Phone: [facility] 07-11-2022 06:10-0400 Body temperature 98.7 [degF] COUNSELOR AT [employer] Shantell Sea Work Phone: [facility] 07-11-2022 06:10-0400 Body weight 92.98 kg COUNSELOR AT [employer] Shantell Sea Work Phone: [facility] 06-29-2022 10:30-0400 Body height 180.34 cm Patrice Levine Other [employer] Other 06-29-2022 10:30-0400 Body mass index (BMI) [Ratio] 28.59 kg/m2 Patrice Reyescasper Other [employer] Other 06-29-2022 10:30-0400 Body temperature 97 [degF] Patrice Reyescasper Other [employer] Other 06-29-2022 10:30-0400 Body weight 92.99 kg Patrice Reyescasper Other [employer] Other 06-29-2022 10:30-0400 Diastolic blood pressure 68 mm[Hg] Patrice Reyescasper Other [employer] Other 06-29-2022 10:30-0400 SaO2% (BldA) [Mass fraction] 99 % Patrice Reyescasper Other [employer] Other 06-29-2022 10:30-0400 Systolic blood pressure 118 mm[Hg] Patrice Reyescasper Other [employer] Other 06-07-2022 15:50-0400 Body height 180.34 cm Monica Alexus Other [employer] Other 06-07-2022 15:50-0400 Body mass index (BMI) [Ratio] 28.59 kg/m2 Monica Alexus Other [employer] Other 06-07-2022 15:50-0400 Body temperature 97.5 [degF] Monica Alexus Other [employer] Other 06-07-2022 15:50-0400 Body weight 92.99 kg Monica Vaughan Other [employer] Other 06-07-2022 15:50-0400 Diastolic blood pressure 43 mm[Hg] Monica Vaughan Other [employer] Other 06-07-2022 15:50-0400 Respiratory rate 18 /min Monica Vaughan Other [employer] Other 06-07-2022 15:50-0400 SaO2% (BldA) [Mass fraction] 97 % Monica Vaughan Other [employer] Other 06-07-2022 15:50-0400 Systolic blood pressure 90 mm[Hg] Monica Vaughan Other [employer] Other 03-09-2022 11:00-0400 Body height 180.34 cm Patrice Levine Other [employer] Other 03-09-2022 11:00-0400 Body mass index (BMI) [Ratio] 29.56 kg/m2 Patrice Levine Other [employer] Other 03-09-2022 11:00-0400 Body weight 96.16 kg Patrice Levine Other [employer] Other 03-09-2022 11:00-0400 Diastolic blood pressure 76 mm[Hg] Patrice Levine Other [employer] Other 03-09-2022 11:00-0400 Respiratory rate 18 /min Patrice Levine Other [employer] Other 03-09-2022 11:00-0400 SaO2% (BldA) [Mass fraction] 95 % Patrice Levine Other [employer] Other 03-09-2022 11:00-0400 Systolic blood pressure 138 mm[Hg] Patrice Levine Other [employer] Other 02-23-2022 14:30-0400 Body height 180.34 cm Shantell Zavalaault Other [employer] Other 02-23-2022 14:30-0400 Body mass index (BMI) [Ratio] 29.56 kg/m2 Shantell Osei Other [employer] Other 02-23-2022 14:30-0400 Body temperature 98.8 [degF] Shantell Zavalaault Other [employer] Other 02-23-2022 14:30-0400 Body weight 96.16 kg Shantell Zavalaault Other [employer] Other 02-23-2022 14:30-0400 Diastolic blood pressure 92 mm[Hg] Shantell Zavalaault Other [employer] Other 02-23-2022 14:30-0400 Respiratory rate 18 /min Shantell Zavalaault Other [employer] Other 02-23-2022 14:30-0400 SaO2% (BldA) [Mass fraction] 98 % Shantell Zavalaault Other [employer] Other 02-23-2022 14:30-0400 Systolic blood pressure 164 mm[Hg] Shantell Zavalaault Other [employer] Other 02-07-2022 17:40-0400 Body height 180.34 cm Ramos Govea Other [employer] Other 02-07-2022 17:40-0400 Body mass index (BMI) [Ratio] 30.07 kg/m2 Ramos Govea Other [employer] Other 02-07-2022 17:40-0400 Body temperature 97.6 [degF] Ramos Govea Other [employer] Other 02-07-2022 17:40-0400 Body weight 97.8 kg Ramos Govea Other [employer] Other 02-07-2022 17:40-0400 Diastolic blood pressure 91 mm[Hg] Ramos Govea Other [employer] Other 02-07-2022 17:40-0400 Respiratory rate 18 /min Ramos Govea Other [employer] Other 02-07-2022 17:40-0400 SaO2% (BldA) [Mass fraction] 98 % Ramos Govea Other [employer] Other 02-07-2022 17:40-0400 Systolic blood pressure 158 mm[Hg] Ramos Govea Other [employer] Other 01-04-2022 10:30-0400 Body height 180.34 cm Patrice Levine Other [employer] Other 01-04-2022 10:30-0400 Body mass index (BMI) [Ratio] 31.24 kg/m2 Patrice Levine Other [employer] Other 01-04-2022 10:30-0400 Body temperature 98.3 [degF] Patrice Reyescasper Other [employer] Other 01-04-2022 10:30-0400 Body weight 101.61 kg Patrice Reyescasper Other [employer] Other 01-04-2022 10:30-0400 Diastolic blood pressure 88 mm[Hg] Patrice Levine Other [employer] Other 01-04-2022 10:30-0400 SaO2% (BldA) [Mass fraction] 96 % Patrice Reyescasper Other [employer] Other 01-04-2022 10:30-0400 Systolic blood pressure 198 mm[Hg] Patrice Julianna Other [employer] Other 12-15-2021 16:00-0500 Body height 180.34 cm Junior Abby Other [employer] Other 12-15-2021 16:00-0500 Body mass index (BMI) [Ratio] 31.24 kg/m2 Junior Abby Other [employer] Other 12-15-2021 16:00-0500 Body weight 101.61 kg Junior Abby Other [employer] Other 12-15-2021 16:00-0500 Diastolic blood pressure 80 mm[Hg] Junior Abby Other [employer] Other 12-15-2021 16:00-0500 Respiratory rate 18 /min Junior Abby Other [employer] Other 12-15-2021 16:00-0500 SaO2% (BldA) [Mass fraction] 97 % Junior Abby Other [employer] Other 12-15-2021 16:00-0500 Systolic blood pressure 142 mm[Hg] Junior Abby Other [employer] Other 09-15-2021 11:20-0500 Body height 180.34 cm Junior Abby Other [employer] Other 09-15-2021 11:20-0500 Body mass index (BMI) [Ratio] 30.79 kg/m2 Junior Abby Other [employer] Other 09-15-2021 11:20-0500 Body temperature 98 [degF] Junior Abby Other [employer] Other 09-15-2021 11:20-0500 Body weight 100.15 kg Junior Abby Other [employer] Other 09-15-2021 11:20-0500 Diastolic blood pressure 94 mm[Hg] Junior Abby Other [employer] Other 09-15-2021 11:20-0500 Respiratory rate 18 /min Junior Abby Other [employer] Other 09-15-2021 11:20-0500 SaO2% (BldA) [Mass fraction] 97 % Junior Abby Other [employer] Other 09-15-2021 11:20-0500 Systolic blood pressure 200 mm[Hg] Junior Abby Other [employer] Other 08-18-2021 11:00-0400 Body height 180.34 cm Junior Abby Other [employer] Other 08-18-2021 11:00-0400 Body mass index (BMI) [Ratio] 30.51 kg/m2 Junior Abby Other [employer] Other 08-18-2021 11:00-0400 Body temperature 97.4 [degF] Junior Abby Other [employer] Other 08-18-2021 11:00-0400 Body weight 99.25 kg Junior Abby Other [employer] Other 08-18-2021 11:00-0400 Diastolic blood pressure 80 mm[Hg] Junior Abby Other [employer] Other 08-18-2021 11:00-0400 Respiratory rate 18 /min Junior Abby Other [employer] Other 08-18-2021 11:00-0400 SaO2% (BldA) [Mass fraction] 97 % Junior Abby Other [employer] Other 08-18-2021 11:00-0400 Systolic blood pressure 139 mm[Hg] Junior Abby Other [employer] Other 07-28-2021 12:00-0400 Body height 180.34 cm Shantell Osei Other [employer] Other 07-28-2021 12:00-0400 Body mass index (BMI) [Ratio] 30.4 kg/m2 Shantell Osei Other [employer] Other 07-28-2021 12:00-0400 Body temperature 97.8 [degF] Shantell Osei Other [employer] Other 07-28-2021 12:00-0400 Body weight 98.88 kg Shantell Osei Other [employer] Other 07-28-2021 12:00-0400 Diastolic blood pressure 67 mm[Hg] Shantell Osei Other [employer] Other 07-28-2021 12:00-0400 Respiratory rate 18 /min Shantell Osei Other [employer] Other 07-28-2021 12:00-0400 SaO2% (BldA) [Mass fraction] 99 % Shantell Osei Other [employer] Other 07-28-2021 12:00-0400 Systolic blood pressure 133 mm[Hg] Shantell Osei Other [employer] Other 07-21-2021 15:20-0400 Body height 180.34 cm Junior Abby Other [employer] Other 07-21-2021 15:20-0400 Body mass index (BMI) [Ratio] 30.99 kg/m2 Junior Abby Other [employer] Other 07-21-2021 15:20-0400 Body temperature 97.3 [degF] Junior Abby Other [employer] Other 07-21-2021 15:20-0400 Body weight 100.79 kg Junior Abby Other [employer] Other 07-21-2021 15:20-0400 Diastolic blood pressure 82 mm[Hg] Junior Abby Other [employer] Other 07-21-2021 15:20-0400 Respiratory rate 18 /min Junior Abby Other [employer] Other 07-21-2021 15:20-0400 SaO2% (BldA) [Mass fraction] 97 % Junior Abby Other [employer] Other 07-21-2021 15:20-0400 Systolic blood pressure 172 mm[Hg] Junior Abby Other [employer] Other 07-13-2021 11:13-0400 Body height 180.34 cm Ace Marr Work Phone: [facility]Rydsmgavcr-Jrdyoq [facility] [address] Work Phone: 07-13-2021 11:13-0400 Body mass index (BMI) [Ratio] 30.68 kg/m2 Ace Marr Work Phone: [facility]-Xfhdlcdkkw-Jjptrm [facility] [address] Work Phone: 07-13-2021 11:13-0400 Body surface area Derived from formula 2.2 m2 Ace Marr Work Phone: RK-Xrzbsgbeds-Ecrdlg [address] Work Phone: 07-13-2021 11:13-0400 Body temperature 97.4 [degF] Ace Marr Work Phone: OB-Aqvdmvfzad-Vjjrph [address] Work Phone: 07-13-2021 11:13-0400 Body weight 99.79 kg Ace Marr Work Phone: GU-Rtfmgkcuhx-Rkfftw [address] Work Phone: 07-13-2021 11:13-0400 Diastolic blood pressure 90 mm[Hg] Ace Marr Work Phone: DK-Wsapgnvexm-Scbuws [address] Work Phone: 07-13-2021 11:13-0400 Heart rate 60 /min Ace Marr Work Phone: GS-Bqrnlsxuct-Lgerul [address] Work Phone: 07-13-2021 11:13-0400 SaO2% (BldA) [Mass fraction] 97 % Ace Marr Work Phone: UT-Kxfnhtyrry-Oixfab [address] Work Phone: 07-13-2021 11:13-0400 Systolic blood pressure 160 mm[Hg] Ace Marr Work Phone: QA-Zmtcbtxnot-Uazzws [address] Work Phone: Encounters Encounter Date Encounter Type Care Provider Facility Start: 07-22-2025 ambulatory Patrice Levine Facility:[facility] Start: 07-20-2025 End: 07-20-2025 ambulatory Shantell Osei COUNSELOR AT [employer] Work Phone: [facility] Work Phone: Start: 07-20-2025 End: 07-20-2025 Patient encounter procedure Juanita Rosenberg APRN [facility] Work Phone: Start: 06-18-2025 End: 06-18-2025 ambulatory Shantellrbenda Osei COUNSELOR AT [employer] Work Phone: [facility] Work Phone: Start: 06-18-2025 End: 06-18-2025 Patient encounter procedure Juanita Rosenberg APRN [facility] Work Phone: Start: 06-18-2025 End: 06-18-2025 ambulatory Shantell Sea COUNSELOR AT [employer] Work Phone: [facility] Work Phone: Start: 06-18-2025 End: 06-18-2025 Patient encounter procedure Patrice Levine MD -[facility] Vascular Surg Work Phone: Start: 06-16-2025 End: 06-16-2025 Evaluation and management of inpatient [facility] Start: 06-15-2025 Evaluation and management of inpatient [facility] Start: 06-14-2025 Emergency department patient visit CADEN VAZQUEZ [facility] Start: 06-14-2025 End: 06-17-2025 [facility] Start: 06-09-2025 Non-patient / Non-visit Junior Mayo MD -[facility] Work Phone: Start: 05-28-2025 End: 05-28-2025 ambulatory Shantell Sea COUNSELOR AT [employer] Work Phone: [facility] Work Phone: Start: 05-28-2025 End: 05-28-2025 Patient encounter procedure Patrice Levine MD -[facility] Work Phone: Start: 05-20-2025 Non-patient / Non-visit Junior Mayo MD -[facility] Work Phone: Start: 05-20-2025 End: 05-20-2025 Evaluation and management of inpatient Percy Herrera Facility:[facility] Start: 05-15-2025 End: 05-15-2025 Patient encounter procedure Patrice Levine MD -Ultrasound [facility] [place] Work Phone: Start: 05-15-2025 End: 05-15-2025 ambulatory Shantell Sea COUNSELOR AT [employer] Work Phone: [facility] Work Phone: Start: 05-11-2025 End: 05-11-2025 Admission to same day surgery center Patrice Levine MD -Interventional Radiology Work Phone: Start: 05-11-2025 End: 05-11-2025 ambulatory Shantell Sea COUNSELOR AT [employer] Work Phone: [facility] Work Phone: Start: 05-11-2025 Non-patient / Non-visit Noemi Levine MD -[facility] Work Phone: Start: 05-07-2025 Non-patient / Non-visit Junior Mayo MD -[facility] Work Phone: Start: 05-06-2025 End: 05-06-2025 ambulatory Shantell Sea COUNSELOR AT [employer] Work Phone: [facility] Work Phone: Start: 05-06-2025 End: 05-06-2025 Patient encounter procedure Patrice Levine MD -[facility] Vascular Surg Work Phone: Start: 05-05-2025 End: 05-05-2025 ambulatory Shantell Sea COUNSELOR AT [employer] Work Phone: [facility] Work Phone: Start: 05-05-2025 End: 05-05-2025 Patient encounter procedure Junior Mayo MD -Dialysis Work Phone: Start: 04-28-2025 End: 04-28-2025 ambulatory Shantell Sea COUNSELOR AT [employer] Work Phone: [facility] Work Phone: Start: 04-28-2025 End: 04-28-2025 Patient encounter procedure Gerber Short MD -[facility] Vascular Surg Work Phone: Start: 04-28-2025 End: 04-28-2025 ambulatory Shantell Sea COUNSELOR AT [employer] Work Phone: [facility] Work Phone: Start: 04-28-2025 End: 04-28-2025 Patient encounter procedure Junior Mayo MD -Dialysis Work Phone: Start: 04-14-2025 End: 04-14-2025 Admission to same day surgery center Patrice Levine MD -Surgery Center [facility] Start: 04-14-2025 End: 04-14-2025 ambulatory Shantell Zavalaault COUNSELOR AT [employer] Work Phone: [facility] Work Phone: Start: 04-14-2025 Non-patient / Non-visit Noemi Levine MD -[facility] Work Phone: Start: 04-13-2025 End: 04-13-2025 Emergency department patient visit Shantell Sea COUNSELOR AT [employer] Work Phone: -Emergency Room Work Phone: Start: 04-13-2025 End: 04-13-2025 ambulatory Patrice Levine Facility:[facility] Start: 04-13-2025 Non-patient / Non-visit Noemi Levine MD -[facility] Work Phone: Start: 04-11-2025 End: 04-11-2025 ambulatory Shantell Zavalaault COUNSELOR AT [employer]-BC Work Phone: [facility] Work Phone: Start: 04-11-2025 End: 04-11-2025 Departed Referred Junior Mayo MD -Lab [facility] [place] Work Phone: Start: 04-07-2025 Non-patient / Non-visit Toby stewart MD -[facility] Work Phone: Start: 04-01-2025 End: 04-01-2025 ambulatory Shantell Zavalaault COUNSELOR AT [employer] Work Phone: [facility] Work Phone: Start: 04-01-2025 End: 04-01-2025 Departed Referred Romain Menon MD -[facility] Work Phone: Start: 03-31-2025 End: 03-31-2025 ambulatory Shantell Osei Facility:[facility] Start: 03-31-2025 End: 03-31-2025 Patient encounter procedure Toby Venegas MD -Dialysis Work Phone: Start: 03-10-2025 End: 03-10-2025 ambulatory Shantell Osei COUN[employer] AT [employer] Work Phone: [facility] Work Phone: Start: 03-10-2025 End: 03-10-2025 Patient encounter procedure Shantell Osei COUNSELOR AT [employer] Work Phone: [facility]-Dialysis Work Phone: Start: 03-10-2025 Non-patient / Non-visit Azeb Osei COUNSELOR AT [employer] Work Phone: [facility] Vascular Surg Work Phone: Start: 03-04-2025 End: 03-04-2025 ambulatory Andrew Villagran Facility:[facility] Start: 02-24-2025 Non-patient / Non-visit Azeb Osei COUNSELOR AT [employer] Work Phone: [facility] Pulmonary Work Phone: Start: 02-24-2025 Non-patient / Non-visit Azeb Osei COUNSELOR AT [employer] Work Phone: [facility] Ne[facility] Work Phone: Start: 02-24-2025 End: 02-26-2025 Evaluation and management of inpatient Shantell Osei COUNSELOR AT [employer]-BC Work Phone: [facility] [place] [facility] Work Phone: Start: 02-23-2025 End: 02-23-2025 ambulatory Shantell Osei COUNSELOR AT [employer] Work Phone: [facility] Work Phone: Start: 02-23-2025 End: 02-23-2025 Patient encounter procedure Shantell Osei COUNSELOR AT [employer] Work Phone: [facility] Physician [facility] Vascular Surg Work Phone: Start: 02-16-2025 End: 02-16-2025 ambulatory Andrew Villagran Facility:[facility] Start: 02-16-2025 End: 02-16-2025 ambulatory [facility] Start: 02-06-2025 Non-patient / Non-visit Edkaren das Sea COUNSELOR AT [employer] Work Phone: [facility] Physician [facility] Vascular Surg Work Phone: Start: 02-05-2025 End: 02-05-2025 Admission to same day surgery center PHYSICIAN NO [facility]-Interventional Radiology Work Phone: Start: 02-05-2025 End: 02-05-2025 ambulatory PHYSICIAN NO [facility] Work Phone: Start: 02-05-2025 End: 02-05-2025 Patient encounter procedure PHYSICIAN NO [facility]-Lab [facility] [place] Work Phone: Start: 02-05-2025 End: 02-05-2025 ambulatory PHYSICIAN NO [facility] Work Phone: Start: 02-05-2025 Non-patient / Non-visit Edkaren das Sea COUNSELOR AT LAW-BC Work Phone: [facility] Work Phone: Start: 02-03-2025 End: 02-03-2025 ambulatory TRACIE SANCHES Not Available Start: 02-03-2025 End: 02-03-2025 Office outpatient new 20 minutes Tracie Sanches CLINICAL OPERATIONS CONSULTANT Work Phone: [facility] Comment on above: Abscess of back (Gia soraya Dx) Start: 01-16-2025 ambulatory COUNSELOR AT LAW SHANTELL OSEI Facility:[facility] Start: 01-05-2025 Non-patient / Non-visit PHYSICIAN NO [facility] Physician [facility] Work Phone: Start: 12-08-2024 Non-patient / Non-visit PHYSICIAN NO [facility] D[facility] Work Phone: Start: 11-15-2024 End: 11-15-2024 ambulatory Shantellcurtis Osei COUNSELOR AT LAW-BC Work Phone: [facility] Work Phone: Start: 11-15-2024 End: 11-15-2024 Patient encounter procedure Shantellbrenda Osei COUNSELOR AT [employer] Work Phone: [facility]-Dialysis Work Phone: Start: 11-11-2024 End: 11-11-2024 ambulatory Shantell Osei COUNSELOR AT LAW-BC Work Phone: [facility] Work Phone: Start: 11-11-2024 End: 11-11-2024 Patient encounter procedure Shantellbrenda Osei COUNSELOR AT [employer] Work Phone: [facility]-Dialysis Work Phone: Start: 10-31-2024 End: 10-31-2024 ambulatory Shantellcurtis Osei COUNSELOR AT [employer]-BC Work Phone: [facility] Work Phone: Start: 10-31-2024 End: 10-31-2024 Patient encounter procedure Shantellbrenda Osei COUNSELOR AT [employer] Work Phone: [facility]-Dialysis Work Phone: Start: 10-24-2024 End: 10-24-2024 [facility] Start: 09-23-2024 [facility] Start: 09-22-2024 Evaluation and management of inpatient [facility] Start: 09-22-[address] [facility] Start: 09-22-2024 End: 09-23-2024 Evaluation and management of inpatient [facility] Start: 09-14-2024 Non-patient / Non-visit Azeb Osei [facility]- Work Phone: [facility] Work Phone: Start: 09-07-2024 Non-patient / Non-visit Azeb Osei [facility]- Work Phone: [facility] Work Phone: Start: 08-21-2024 End: [...] Not Available Start: 08-08-2024 End: 08-08-2024 ambulatory [facility] Start: 08-07-2024 Non-patient / Non-visit Azeb Osei [facility]- Work Phone: [facility] Work Phone: Start: 07-18-2024 ambulatory JONH DE SOUZA [facility] Start: 07-14-2024 End: 07-14-2024 ambulatory RASHMI WASHINGTON [facility] Start: 04-26-2024 End: 04-27-2024 Evaluation and management of inpatient Maurice Willis MD Work Phone: [facility] Start: 02-21-2024 End: 02-21-2024 ambulatory COUNSELOR AT [employer]-BC Shantell Sea Work Phone: [facility] Work Phone: Start: 02-21-2024 End: 02-21-2024 Patient encounter procedure COUNSELOR AT [employer] Shantell Sea Work Phone: [facility]-Dialysis Work Phone: Start: 02-07-2024 End: 02-07-2024 ambulatory COUNSELOR AT LAW-BC Shantell Sea Work Phone: [facility] Work Phone: Start: 02-07-2024 End: 02-07-2024 Patient encounter procedure COUNSELOR AT [employer]-BC Shantell Sea Work Phone: [facility]-Lab [facility] [place] Work Phone: Start: 01-09-2024 End: 01-09-2024 Non-patient / Non-visit COUNSELOR AT LAW-C Shantell Osei [facility] Nephrology Work Phone: Start: 01-08-2024 End: 01-09-2024 Non-patient / Non-visit COUNSELOR AT LAW-C Shantell Osei [facility] Work Phone: Start: 01-08-2024 End: 01-09-2024 Evaluation and management of inpatient COUNSELOR AT LAW-[employer] Shantell Osei [facility] [place] [facility] Work Phone: Start: 01-06-2024 Non-patient / Non-visit COUNSELOR AT [employer] Shantell Sea Work Phone: [facility] Work Phone: Start: 12-11-2023 Non-patient / Non-visit COUNSELOR AT LAW-C Shantell [facility] Dialysis Unit Work Phone: Start: 12-03-2023 Chart abstracting Adrian Xie Meenajohnnie nthal DPM Work Phone: [facility] Start: 11-14-2023 End: 11-14-2023 ambulatory Live Nguyen Other [facility] Other Start: 11-14-2023 Office outpatient ne w 45 minutes Live Nguyen [facility] Infectious Disease Start: 11-14-2023 End: 11-14-2023 Patient encounter procedure COUNSELOR AT LAW-C Shantell [facility] Physician [facility]- Start: 11-10-2023 End: 11-10-2023 ambulatory COUNSELOR AT LAW-C [facility] Work Phone: Start: 11-10-2023 End: 11-10-2023 Patient encounter procedure COUNSELOR AT LAW-C [facility]-Dialysis Work Phone: Start: 11-03-2023 End: 11-03-2023 Patient encounter procedure COUNSELOR AT [employer]-C [facility]-Dialysis Work Phone: Start: 10-11-2023 End: 10-11-2023 ambulatory COUNSELOR AT [employer]-C [facility] Work Phone: Start: 10-11-2023 End: 10-11-2023 Patient encounter procedure COUNSELOR AT LAW-C [facility]-Dialysis Work Phone: Start: 06-11-2023 End: 06-11-2023 Departed Referred COUNSELOR AT LAW-C [facility]-Interventional Radiology Work Phone: Start: 06-11-2023 End: 06-11-2023 Admission to same day surgery center COUNSELOR AT LAW-C Shantell [facility] [facility] Work Phone: Start: 06-11-2023 End: 06-11-2023 ambulatory COUNSELOR AT [employer]-C Shantell [facility] Work Phone: Start: 05-22-2023 End: 05-22-2023 Evaluation and management of inpatient [employer]OR AT [employer] Shantell [facility] [place] [facility] Work Phone: Start: 05-15-2023 End: 05-15-2023 ambulatory Donya Mccann Other [employer] Other Start: 05-15-2023 Office outpatient vi sit 15 minutes Donya Mccann [facility] Start: 05-15-2023 Telephone encounter Gerber Short [facility] Start: 01-08-2023 End: 01-08-2023 ambulatory Imad Asaad Other [employer] Other Start: 01-08-2023 Telephone encounter Imad Asaad [facility] Start: 12-11-2022 End: 12-11-2022 ambulatory Imad Asaad Other [employer] Other Start: 12-11-2022 Telephone encounter Imad Asaad [facility] Start: 11-30-2022 End: 11-30-2022 ambulatory Shantell Osei Other [employer] Other Start: 11-30-2022 Office outpatient vi sit 15 minutes Shantell Osei [facility] Start: 11-16-2022 End: 11-16-2022 ambulatory Shantell Osei Other [employer] Other Start: 11-16-2022 Telephone encounter Shantell mcgee [facility] Start: 09-27-2022 End: 09-27-2022 ambulatory Patrice Levine Other [employer] Other Start: 09-27-2022 Postop follow up vis it related to original px Patrice Levine [facility] Start: 09-19-2022 End: 09-19-2022 ambulatory Patrice Levine Other [employer] Other Start: 09-19-2022 Telephone encounter Patrice Whitfield [facility] Start: 09-13-2022 End: 09-13-2022 ambulatory Raissa Gillemilysuzan Other [employer] Other Start: 09-13-2022 Follow-up encounter Raissa Gillemilysuzan [facility] Start: 08-24-2022 End: 08-24-2022 Admission to same day surgery center COUNSELOR AT [employer] Shantell Sea Work Phone: [facility]-Surgery [facility] [place] Start: 08-24-2022 End: 08-24-2022 ambulatory COUNSELOR AT [employer] Shantell Sea Work Phone: [facility] Work Phone: Start: 08-23-2022 End: 08-23-2022 ambulatory COUNSELOR AT LAW-C Shantell Sea Work Phone: [facility] Work Phone: Start: 08-23-2022 End: 08-23-2022 Patient encounter procedure COUNSELOR AT [employer]-C Shantell Sea Work Phone: [facility] Ctz-Nzy-Svpzgzrs Testing Start: 08-18-2022 End: 08-18-2022 ambulatory JUNIOR MAYO Facility:H1 Start: 08-07-2022 End: 08-08-[address] TIMMY MORTON Facility:H1 Start: 08-04-2022 End: 08-04-2022 ambulatory RAMOS GVOEA Facility:H1 Start: 08-01-2022 End: 08-01-2022 ambulatory Gerber Short Other [employer] Other Start: 08-01-2022 Encounter for other preprocedural examination Gerber Short [facility] Vascular Surgery Start: 08-01-2022 Office outpatient vi sit 25 minutes Gerber Short [facility] Vascular Surgery Start: 07-11-2022 End: 07-11-2022 Admission to same day surgery center COUNSELOR AT [employer] Shantell Osei Work Phone: [facility]-Surgery [facility] [place] Start: 07-11-2022 End: 07-11-2022 ambulatory COUNSELOR AT LAW-C Shantell Osei Work Phone: [facility] Work Phone: Start: 07-10-2022 End: 07-10-2022 Patient encounter procedure COUNSELOR AT LAW-C Shantell Osei Work Phone: [facility]-Pre-Surgical Testing Start: 07-08-2022 ambulatory JUNIOR MAYO Facility:H 1 Start: 06-29-2022 End: 06-29-2022 ambulatory Patrice Levine Other [employer] Other Start: 06-29-2022 Encounter for other preprocedural examination Patrice Levine [facility] Vascular Surgery Start: 06-29-2022 Office outpatient vi sit 15 minutes Patrice Levine [facility] Vascular Surgery Start: 06-29-2022 Telephone encounter Patrice Whitfield [facility] Vascular Surgery Start: 06-26-2022 End: 06-27-[address] TIMMY MORTON Facility:H1 Start: 06-13-2022 End: 06-13-2022 ambulatory Shantell Osei Other [employer] Other Start: 06-13-2022 Telephone encounter Shantell mcgee [facility] Start: 06-09-2022 End: 06-10-2022 ambulatory SHANTELL OSEI Facility:H1 Start: 06-07-2022 End: 06-07-2022 ambulatory Monica Vaughan Other [employer] Other Start: 06-07-2022 Office outpatient vi sit 15 minutes Monica Vaughan [facility] Start: 06-06-2022 End: 06-06-2022 ambulatory Shantellbrenda Osei Other [employer] Other Start: 06-06-2022 Telephone encounter Shantell Breaul t [facility] Start: 05-25-2022 End: 05-25-2022 ambulatory Shantell Sea Other [employer] Other Start: 05-25-2022 Telephone encounter Shantell Breaul t [facility] Start: 05-01-2022 End: 05-01-2022 ambulatory Shantell Sea Other [employer] Other Start: 05-01-2022 Telephone encounter Shantell Breaul t [facility] Start: 03-24-2022 End: 03-24-2022 ambulatory Shantell Sea Other [employer] Other Start: 03-24-2022 Telephone encounter Shantell Breaul t [facility] Start: 03-09-2022 End: 03-09-2022 ambulatory Patrice Levine Other [employer] Other Start: 03-09-2022 Encounter for other preprocedural examination Patrice Levine [facility] Start: 03-09-2022 Office outpatient vi sit 40 minutes Patrice Levine [facility] Start: 03-09-2022 Telephone encounter Patrice Whitfield [facility] Start: 03-03-2022 End: 03-03-2022 ambulatory Patrice Levine Other [employer] Other Start: 03-03-2022 Telephone encounter Patrice novak [facility] Start: 02-28-2022 Telephone encounter Ramos Govea [facility] Start: 02-28-2022 End: 02-28-[address] [facility] [employer] Other Start: 02-24-2022 End: 02-24-2022 ambulatory SHANTELL SEA Facility:H1 Start: 02-23-2022 End: 02-23-2022 ambulatory Junior Abby Other [employer] Other Start: 02-23-2022 Office outpatient vi sit 15 minutes Shantell Osei [facility] Start: 02-23-2022 Telephone encounter Junior Abby [facility] Start: 02-18-2022 End: 02-18-2022 ambulatory SHANTELL ZAVALAAULT Facility:H1 Start: 02-15-2022 End: 02-15-2022 ambulatory Shantell Osei Other [employer] Other Start: 02-15-2022 Telephone encounter Shantell mcgee [facility] Start: 02-14-2022 Telephone encounter Ramos Govea [facility] Start: 02-14-2022 End: 02-14-[address] [facility] [employer] Other Start: 02-13-2022 End: 02-14-2022 ambulatory SHANTELL SEA Facility:H1 Start: 02-13-2022 End: 03-14-2022 ambulatory JUNIOR ABBY Facility:H1 Start: 02-07-2022 End: 02-07-2022 ambulatory Azkolton Schumachers Other [employer] Other Start: 02-07-2022 Office outpatient vi sit 25 minutes Azkolton Schumachers [facility] Start: 02-07-2022 Telephone encounter Azkolton Schumachers [facility] Start: 02-06-2022 End: 02-07-[address] TOBY VENEGAS Facility:H1 Start: 01-18-2022 End: 01-18-2022 ambulatory Shantell Osei Other [employer] Other Start: 01-18-2022 Telephone encounter Shantell mcgee [facility] Start: 01-17-2022 End: 01-17-2022 ambulatory Junior Abby Other [employer] Other Start: 01-17-2022 Telephone encounter Junior Abby [facility] Start: 01-10-2022 End: 01-10-2022 ambulatory Patrice Levine Other [employer] Other Start: 01-10-2022 Telephone encounter Patrice novak [facility] Start: 01-04-2022 End: 01-04-2022 ambulatory Patrice Levine Other [employer] Other Start: 01-04-2022 Encounter for other preprocedural examination Shantell Osei [facility] Start: 01-04-2022 Office outpatient vi sit 25 minutes Patrice Levine [facility] Start: 01-04-2022 Telephone encounter Shantell mcgee [facility] Start: 01-02-2022 End: 01-02-2022 ambulatory Patrice Levine Other [employer] Other Start: 01-02-2022 Telephone encounter Patrice novak [facility] Start: 12-30-2021 End: 12-31-2021 ambulatory JUNIOR ABBY Facility:H1 Start: 12-29-2021 End: 12-29-2021 ambulatory Shantell Osei Other [employer] Other Start: 12-29-2021 Telephone encounter Junior Abby [facility] Start: 12-26-2021 End: 12-26-2021 ambulatory Junior Abby Other [employer] Other Start: 12-26-2021 Telephone encounter Junior Abby [facility] Start: 12-22-2021 End: 12-23-2021 ambulatory JUNIOR ABBY Facility:H1 Start: 12-19-2021 Telephone encounter Junior Abby [facility] Start: 12-19-2021 End: 12-20-[address] [facility] [employer] Other Start: 12-15-2021 End: 12-15-2021 ambulatory Junior Abby Other [employer] Other Start: 12-15-2021 Office outpatient vi sit 25 minutes Junior Abby [facility] Start: 12-12-2021 End: 12-13-2021 ambulatory JUNIOR ABBY Facility:H1 Start: 12-05-2021 Telephone encounter Shantell mcgee [facility] Start: 12-05-2021 End: 12-06-[address] [facility] [employer] Other Start: 11-29-2021 End: 11-29-2021 ambulatory Junior Abby Other [employer] Other Start: 11-29-2021 Telephone encounter Junior Abby [facility] Start: 11-28-2021 End: 11-29-[address] [facility] [employer] Other Start: 11-28-2021 Telephone encounter Junior Abby [facility] Start: 11-26-2021 End: 11-26-2021 ambulatory Shantellbrenda Osei Other [employer] Other Start: 11-26-2021 Telephone encounter Shantell mcgee [facility] Start: 11-25-2021 End: 11-25-[address] [facility] [employer] Other Start: 11-25-2021 Telephone encounter Junior Abby [facility] Start: 11-02-2021 End: 11-02-2021 ambulatory Junior Abby Other [employer] Other Start: 11-02-2021 Telephone encounter Junior Abby [facility] Start: 10-29-2021 End: 10-30-2021 ambulatory RAJWINDERAMAD GIOANI Facility:H1 Start: 09-15-2021 End: 09-15-2021 ambulatory Junior Abby Other [employer] Other Start: 09-15-2021 Office outpatient vi sit 15 minutes Junior Abby [facility] Start: 09-15-2021 Telephone encounter Shantell mcgee [facility] Start: 09-14-2021 End: 09-14-2021 ambulatory Junior Abby Other [employer] Other Start: 09-14-2021 Telephone encounter Junior Abby [facility] Start: 09-13-2021 End: 09-14-[address] [facility] [employer] Other Start: 09-13-2021 Telephone encounter Junior Abby [facility] Start: 09-10-2021 End: 09-10-2021 ambulatory SHANTELL OSEI Facility:H1 Start: 08-18-2021 End: 08-18-2021 ambulatory Junior Abby Other [employer] Other Start: 08-18-2021 Office outpatient vi sit 15 minutes Junior Abby [facility] Start: 2021 Telephone encounter Junior Abby [facility] Start: 08-08-2021 Telephone encounter Junior Abby [facility] Start: 07-28-2021 Office outpatient vi sit 15 minutes Shantell Sea [facility] [place] Start: 07-25-2021 Other Ace mares Work Phone: [facility] [address] Work Phone: Start: 07-22-2021 End: 07-23-2021 Evaluation and management of inpatient JENNA AVILA Facility:[facility] Start: 07-21-2021 AUDIT Ace mares Work Phone: [facility] Work Phone: Start: 07-21-2021 Office outpatient vi sit 25 minutes Junior Mayo [facility] Nephrology [place] Start: 07-13-2021 Office outpatient ne w 60 minutes Ace Marr Work Phone: [facility] Work Phone: Start: 07-13-2021 Patient encounter procedure Ace Marr Work Phone: [facility] Work Phone: Start: 07-01-2021 AUDIT Ace mares Work Phone: [facility] 6437 Work Phone: Start: 02-15-2021 End: 02-15-2021 Patient encounter procedure Vivian Motta Work Phone: -Sleep Lab Start: 01-25-2021 End: 01-25-2021 Patient encounter procedure Vivian Motta -Sleep Lab Start: 03-17-2020 Patient encounter procedure Ace Marr [facility] Work Phone: Start: 02-18-2020 Patient encounter procedure Ace Marr [facility] Work Phone: Start: 02-09-2020 Patient encounter procedure Ace Marr [facility] Work Phone: Start: 12-03-2019 Patient encounter procedure Ace Marr [facility] Work Phone: Start: 06-04-2019 [facility] Patient encounter status Ace Marr Work Phone: -[facility] [place] [facility] Work Phone: Procedures Date Procedure Procedure Detail Performing Clinician Start: 05-15-2025 US angiography Faina Osei [employer] Work Phone: Start: 05-11-2025 Venography Shantell Sea [employer] Work Phone: Start: 04-14-2025 Fluoroscopic guidance S sj Sea [employer]SELOR AT LAW-[employer] Work Phone: Start: 04-14-2025 Arteriovenous fistulization Shantell Sea [employer] Work Phone: Start: 02-25-2025 Plain chest X-ray Hermila Zavalaault [employer] Work Phone: Start: 02-24-2025 Plain chest X-ray Hermila Zavalaault [employer] Work Phone: Start: 02-05-2025 Angiography PHYSICIAN NO FAMILY Start: 11-11-2024 Bacteria identified in Blood by Culture PHYSICIAN [facility] FAMILY Start: 07-14-2024 Follow-up visit Follow-up RASHMI V IJENDRA Start: 04-27-2024 Basic metabolic pane l calcium [...] tq Pasha Barrera MD Work Phone: Start: 05-22-2023 Plain X-ray of left femur [employer]SELOR AT [employer] Shantell Osei Start: 05-22-2023 Plain X-ray of left tibia and left fibula [employer] AT [employer] Shantell Osei Start: 08-24-2022 Arteriovenous fistulization COUNSELOR AT [employer] Shantell Osei Work Phone: Start: 07-11-2022 Arteriovenous fistulization COUNSELOR AT [employer] Shantell Osei Work Phone: Start: 07-22-2021 Antibody screen MUNIER NAZZAL Comment on above: Performed By: #### 3 [id number] #### [facility] [address] Start: 07-22-2021 DILATION OF INTRACRA NIAL [...] on above: right eye; SARS Antigen (LFIA) [employer] [facility] Osei Work Phone: Plan of Treatment Date Care Activity Detail Author Start: 10-26-2025 Diabetes screen Diabetes screen [facility] Start: 07-20-2025 Patient referral [facility] Work Phone: Start: 06-15-2025 Influenza vaccination Influenz a Vaccine (Season Ended) [facility] Start: 05-20-2025 [facility] Start: 05-20-2025 Hospital admission [facility] Start: 05-20-2025 Referral to landscape horticulture instructor [facility] Start: 05-15-2025 US angiography US map hemodia l access CELIA [facility] Start: 05-11-2025 [facility] Start: 05-11-2025 Ultrasound (US) dopp ler flow mapping of vein of upper limb US venous mapping BI upper [facility] Start: 05-11-2025 US Upper extremity v ein - bilateral [facility] Start: 04-27-2025 GFR test (Diabetes, CKD 3-4, OR last GFR 15-59) GFR test (Diabetes, CKD 3-4, OR last GFR 15-59) [facility] Start: 04-14-2025 [facility] Start: 04-14-2025 [facility] Start: 04-13-2025 [facility] Start: 02-26-2025 [facility] Start: 02-24-2025 Performance of Urina ry Filtration, Intermittent, Less than 6 Hours Per Day Performance of Urinary Filtration, Intermittent, Less than 6 Hours Per Day [facility] Start: 02-24-2025 Respiratory Ventilation, Less than 24 Consecutive Hours Respiratory Ventilation, Less than 24 Consecutive Hours [facility] Start: 02-24-2025 Consultation [facility] Start: 02-24-2025 Hospital admission [facility] Start: 02-24-2025 Referral to landscape horticulture instructor [facility] Start: 02-05-2025 [facility] Start: 11-11-2024 Bacteria identified in Blood by Culture Blood Culture [facility] Start: 11-11-2024 End: 11-11-2024 [facility] Start: 10-02-2024 End: 10-02-2024 Patient encounter procedure 10/02/2024 2:15 PM EST Office Visit [facility] [address] [place] [id number] Allison Serrano DPM [address] [place] [address] [facility] Start: 08-21-2024 End: 08-21-2024 Patient encounter procedure 08/21/2024 1:00 PM EST [facility] [address] [place] [address] Allison Serrano, DPM [address] [place] [address] Arrived [facility] Comment on above: Arrived Start: 05-15-2024 Influenza vaccination Flu vaccine (# 1) [facility] Start: 01-09-2024 [facility] Start: 01-08-2024 Referral to landscape horticulture instructor [facility] Start: 01-08-2024 Hospital admission [facility] Start: 01-08-2024 Sleep disorder assessment [facility] Start: 01-08-2024 Performance of Urina ry Filtration, Intermittent, Less than 6 Hours Per Day Performance of Urinary Filtration, Intermittent, Less than 6 Hours Per Day [facility] Start: 12-03-2023 End: 12-03-2023 Patient encounter procedure 12/03/2023 9:15 AM EST Office Visit [facility] [address] [place] [address] Adrian Stark, DPM [address] [place] [address] [facility] Start: 10-26-2023 Lipid panel Lipids [facility] Start: 06-11-2023 IR Fistulogram/TLA Stent (Left) IR Fistulogram/TLA Stent (Left) [facility] Start: 05-22-2023 [facility] Start: 05-22-2023 Referral to landscape horticulture instructor [facility] Start: 05-22-2023 Hospital admission [facility] Start: 08-24-2022 [facility] Start: 08-24-2022 [facility] Start: 07-11-2022 [facility] Start: 07-29-2021 [facility]: Pablo Serrano, Status: Pen, Time: 10:30 AM [facility] Provider: Pablo Serrano, Status: Pen, Time: 10:30 AM [facility] [facility] Work Phone: Start: 07-12-2021 [facility], Provider: Pablo Serrano, Status: Pen, Time: 9:15 AM [facility], Provider: Pablo Serrano, Status: Pen, Time: 9:[address] [facility] 7[address] Work Phone: Start: 07-07-2021 [facility], Provider: Ace Marr, Status: Pen, Time: 11:30 AM [facility], Provider: Ace Marr, Status: Pen, Time: 11:[address] [facility] 1811 Work Phone: Start: 2018 Shingles vaccine (1 of 2) Shingles vaccine (1 of 2) [facility] Start: 2013 Screening for malign ant neoplasm of colon [facility] Start: 05-21-2010 DTaP/Tdap/Td vaccine (1 - Tdap) DTaP/Tdap/Td vaccine (1 - Tdap) [facility] Start: 1988 Hepatitis B vaccine (1 of 3 - Risk Dialysis 4-dose series) Hepatitis B vaccine (1 of 3 - Risk Dialysis 4-dose series) [facility] Start: 1980 Depression Monitoring Depression [facility] Start: 1974 Pneumococcal 0-64 ye ars Vaccine (1 of 2 - PCV) Pneumococcal 0-64 years Vaccine (1 of 2 - PCV) [facility] Start: 02-12-1969 COVID-19 Vaccine (#1) COVID-19 Vacci ne (#1) [facility] Start: 1968 Medicare Annual Wellness (AWV) Medicare Annual Wellness (AWV) [facility] Start: 1968 Screening for malign ant neoplasm of colon [facility] Adult NIV/Positive Airway Pressure Adult NIV/Positive Airway Pressure Respiratory Care Routine Every 4hr until discontinued starting 04/27/2024 [email or web address] Work Phone: Comment on above: Every 4hr until disc ontinued starting 04/27/2024 Continuous pulse oximetry Pulse oximetry, continuous Respiratory Care Routine Every 4hr until discontinued starting 04/26/2024 [email or web address] Comment on above: Every 4hr until disc ontinued starting 04/26/2024 CT Unspecified body region [facility] End: 04-26-2024 Hemodialysis Hemodialysis Dialysis Routine One Time for 1 Occurrences starting 04/26/2024 until 04/26/2024 [email or web address] Comment on above: One Time for 1 Occur rences starting 04/26/2024 until 04/26/2024 Nasal Cannula Oxygen Nasal Cannu la Oxygen Respiratory Care Routine Daily until discontinued starting 04/26/2024 [email or web address] Comment on above: Daily until disconti nued starting 04/26/2024 Oxygen therapy [[facility] Data Set] Initiate Oxygen Therapy Protocol Respiratory Care Routine As Needed until discontinued starting 04/26/2024 [email or web address] Comment on above: As Needed until disc ontinued starting 04/26/2024 Patient Education [facility] Work Phone: Patient referral [facility] Work Phone: [facility] Immunizations Immunization Date Immunization Notes Care Provider Fa cility 04-03-2020 Kenalog -40 mg Junior Abyb Other [employer] Other 04-03-2020 Toradol per 15 mg Junior Qadi r Other [employer] Other 05-20-2010 Td, unspecified formulation Maurice Willis MD Work Phone: [email or web address] Payers Date Payer Category Payer Unknown [id number] 2024 Self-pay [id number] 2024 Medicare [id number] 2023 Medicare (Managed Care) [employer] [id number] 2023 Medicare [id number] 2023 Medicaid [id number] 2022 Medicare [id number] 2022 Medicare (Traditional) [id number] 2.16.840.1.310852.19 1968 Unknown [id number] 2.16.840.1.290588.3.579.2. 647 1968 Unknown [id number] 2.16.840.1.457547.3.579.2. 593 1968 Unknown [id number] 2.16.840.1.343163.3.579.2. 593 1968 Unknown [id number] 2.16.840.1.588841.3.579.2. 593 1968 Unknown [id number] 2.16.840.1.254966.3.579.2. 593 1968 Unknown [id number] 2.16.840.1.116422.3.579.2. 593 1968 Unknown [id number] 2.16.840.1.763250.3.579.2. 593 1968 Unknown [id number] 2.16.840.1.276369.3.579.2. 593 1968 Unknown [id number] 2.16.840.1.105909.3.579.2. 593 1968 Unknown [id number] 2.16.840.1.548607.3.579.2. 593 1968 Unknown [id number] 2.16.840.1.356262.3.579.2. 593 1968 Unknown [id number] 2.16.840.1.257558.3.579.2. 593 1968 Unknown [id number] 2.16.840.1.262318.3.579.2. 593 1968 Unknown [id number] 2.16.840.1.324221.3.579.2. 593 1968 Unknown [id number] 2.16.840.1.908491.3.579.2. 593 1968 Unknown [id number] 2.16.840.1.175875.3.579.2. 593 1968 Unknown [id number] 2.16.840.1.953570.3.579.2. 593 1968 Unknown [id number] 2.16.840.1.804979.3.579.2. 593 1968 Unknown [id number] 2.16.840.1.876761.3.579.2. 593 1968 Unknown [id number] 2.16.840.1.247549.3.579.2. 593 1968 Unknown [id number] 2.16.840.1.926934.3.579.2. 593 1968 Unknown [id number] 2.16.840.1.373481.3.579.2. 593 1968 Unknown [id number] 2.16.840.1.498680.3.579.2. 593 1968 Unknown [id number] 2.16.840.1.702410.3.579.2. 593 1968 Unknown [id number] 2.16.840.1.783518.3.579.2. 593 1968 Unknown [id number] 2.16.840.1.765403.3.579.2. 1259 1968 Unknown [id number] 2.16.840.1.195571.3.579.2. 1259 1968 Unknown [id number] 2.16.840.1.260286.3.579.2. 727 1968 Unknown [id number] 2.16.840.1.126385.3.579.2. 727 1959 Unknown [id number] Unknown Unknown [id number] 2.16.840.1.694634.3.579.2. 531 Unknown [id number] 2.16.840.1.412248.3.579.2. 531 Unknown [id number] 2.16.840.1.369425.3.579.2. 531 Unknown [id number] 2.16.840.1.727310.3.579.2. 531 Unknown [id number] 2.16.840.1.422173.3.579.2. 531 Unknown [id number] 2.16.840.1.390142.3.579.2. 531 Unknown [id number] 2.16.840.1.821031.3.579.2. 531 Unknown [id number] 2.16.840.1.602503.3.579.2. 531 Unknown [id number] 2.16.840.1.625335.3.579.2. 531 Unknown [id number] 2.16.840.1.685732.3.579.2. 531 Unknown [id number] 2.16.840.1.877823.3.579.2. 531 Unknown [id number] 2.16.840.1.190172.3.579.2. 531 Unknown [id number] 2.16.840.1.475017.3.579.2. 531 Unknown [id number] 2.16.840.1.165780.3.579.2. 531 Unknown [id number] 2.16.840.1.316145.3.579.2. 531 Unknown [id number] 2.16.840.1.330505.3.579.2. 531 Unknown [id number] 2.16.840.1.790445.3.579.2. 531 Unknown [id number] 2.16.840.1.191942.3.579.2. 531 Unknown [id number] 2.16840.1.853204.3.579.2. 531 Social History Date Type Detail Facility Start: 1970 Sex Assigned At Male F [facility] Start: 04-26-2024 End: 08-21-2024 Current every day smoker Current every day smoker [facility] Comment on above: 1 1/2 packs/daily; Start: 04-26-2024 End: 08-21-2024 Sex Assigned At BON [facility] Start: 07-11-2022 End: 03-10-2025 Tobacco smoking status [facility] Smoker (finding) [facility] Start: 1970 Sex Assigned At Not on file [facility] Start: 08-21-2024 End: 06-25-2025 Tobacco smoking status MOIS Smokes tobacco daily [facility] Quu History of tobacco use Cigarette Smoker B ON Quu Start: 11-01-2024 End: 03-11-2025 Sex Male (finding) [facility] Start: 08-02-2016 Tobacco use and exposure Smoke less tobacco non-user [facility] Start: 04-26-2024 Alcohol intake 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 Never true [employer] In the past 12 month s, has lack of transportation kept you from medical appointments or from getting medications? No [employer] NEGATED: Highlighted row - - [facility] Work Phone: Medical Equipment Procedure Code Equipment Code Equipment Origin al Text Equipment Identifier Dates Insertion, catheter, dialysis, tunneled, with imaging guidance Double-lumen haemodialysis catheter, implantable [id number] FDA Start: 12-30-2021 Creation or revision of arteriovenous fistula Synthetic vascular graft ([id number] FDA Start: 08-24-2022 Creation or revision of arteriovenous fistula Double-lumen haemodialysis catheter, implantable [id number] FDA Start: 04-14-2025 Goals Date Patient Goal Desired Activity /State Functional Status Date Assessment Result Facility 02-26-2025 Functional status Patient at Baseline [facility] Work Phone: 02-24-2025 Functional status Functional Sta tus Comment Pt intubated and sedated [facility] Work Phone: 01-09-2024 Functional status Patient at Baseline [facility] Work Phone: 05-22-2023 Functional status Patient at Baseline [facility] Work Phone: NEGATED: Highlighted row Functional performance Functional status health issues are not documented Disease [facility] Work Phone: Mental Status Date Assessment Result Facility 02-26-2025 Cognitive function Cognitive Sta tus Patient at Baseline [facility] Work Phone: 01-09-2024 Cognitive function Cognitive Sta tus Patient at Baseline [facility] Work Phone: 05-22-2023 Cognitive function Cognitive Sta tus Patient at Baseline [facility] Work Phone: NEGATED: Highlighted row Cognitive function [Interpretation] Cognitive status health issues are not documented Disease -[facility] Work Phone: Clinical Notes 06-15-2021 to 06-17-2025 Note Date & Type Note Facility 06-17-2025 Note [facility] Vascular and Wound Surgery DAILY PROGRESS NOTE Subjective Patient seen and evaluated bedside. Had permacath placed in Zoology Professor with Dr. Avila yesterday. Denies chest pain, shortness of breath, fever, chills, abdominal pain Objective Vitals: Vitals: 06/17/25 0800 BP: (!) 161/97 Pulse: 85 Resp: 15 Temp: SpO2: 99% I/O last 3 completed shifts: In: 500 (5.9 mL/kg) [I.V.:500 (5.9 mL/kg)] Out: 3505 (41.5 mL/kg) [Other:3500; Blood:5] Weight: 84.5 kg No intake/output data recorded. Physical Exam Physical Exam Constitutional: Appearance: Normal appearance. HENT: Head: Normocephalic and atraumatic. Cardiovascular: Rate and Rhythm: Normal rate and regular rhythm. Abdominal: General: There is no distension. Palpations: Abdomen is soft. Tenderness: There is no abdominal tenderness. Skin: General: Skin is warm and dry. Comments: Permacath in place. No surrounding erythema, tenderness or drainage Neurological: General: No focal deficit present. Mental Status: He is alert and oriented to person, place, and time. Mental status is at baseline. Psychiatric: Mood and Affect: Mood normal. Behavior: Behavior normal. Thought Content: Thought content normal. Labs: Results from last 7 days Lab Units 06/17/25 0326 06/16/25 0348 06/15/25 0513 06/14/25 1259 WBC AUTO 10*3/uL 7.00 8.19 10.09 11.33* HEMOGLOBIN g/dL 11.9* 11.1* 10.9* 11.0* HEMATOCRIT % 37.7* 35.1* 34.5* 35.3* PLATELETS AUTO 10*3/uL 290 296 285 270 Results from last 7 days Lab Units 06/17/25 0326 06/16/25 0348 06/15/25 1637 06/15/25 1607 06/15/25 0513 06/14/25 1746 06/14/25 1259 SODIUM mmol/L 135* 136 -- -- 137 137 135* POTASSIUM mmol/L 4.2 5.1 5.7* 5.7* 5.7* 3.3* 6.6* CO2 mmol/L 29 27 -- -- 26 28 23 BUN mg/dL 24 35* -- -- 38* 26* 54* CREATININE mg/dL 7.65* 10.14* -- -- 10.87* 6.89* 13.61* Results from last 7 days Lab Units 06/14/25 1259 INR 1.06 Medications: aspirin, 81 mg, oral, Daily atorvastatin, 40 mg, oral, Daily carvedilol, 25 mg, oral, BID cloNIDine, 0.1 mg, oral, q12h clopidogrel, 75 mg, oral, Daily gabapentin, 300 mg, oral, BID hydrALAZINE, 100 mg, oral, 2 times daily isosorbide mononitrate ER, 30 mg, oral, Once Daily levothyroxine, 112 mcg, oral, Daily before breakfast [Held by provider] lisinopril, 10 mg, oral, BID nicotine, 1 patch, transdermal, Daily NIFEdipine XL, 30 mg, oral, Daily [START ON 06/19/2025] sodium zirconium cyclosilicate, 10 g, oral, Once per day on Sunday Imaging: Invasive vascular procedure This order was resulted via OpNote or Post Procedure Note. If those notes are not displayed in this report, please refer to the Notes tab. Active Inpatient Problems Principal Problem: Hyperkalemia Active Problems: ESRD on hemodialysis ([facility] Vascular/Wound Care Assessment/Plan Leander Decker is a 54 y.o. male with a past medical history of CVA (2020), CHF, COPD, CAD, Cuong's Thyroiditis, and ESRD on HD with a left arm loop AV graft. Patient was at dialysis when it was found that he did not have a thrill or a bruit while on dialysis. OK to use permacath Patient is scheduled for new fistula creation with surgeon in [place]. Has already had vein mapping completed. Plan to use permacath in the interim and proceed with patient patient is scheduled at OSH We will sign off at this time. Please reconsult if vascular is needed again in the future Elle Valdivia PA-C Vascular/Wound Service Please direct primary wound calls to: [phone] Please direct primary vascular calls to: [phone] This note was created with the assistance of a speech-recognition program. While intending to generate a document that accurately reflects the content of the encounter, no guarantee can be provided that every mistake has been identified and corrected by editing ' [facility] 06-17-2025 Note Nephrology Progress Note Patient : Leander Decker; 54 y.o. Location: [facility]/4102-01 Attending: Richi Amezcua MD Admit Date: 06/14/2025 Hospital Day: 3 Reason for Consult: Management of ESRD on HD Subjective: History of present illness: Leander Decker is a 54 y.o. male with ESRD on hemodialysis Sunday//Sunday. Patient had full hemodialysis treatment on . Other than some intermittently high venous pressures, he had a full treatment with no prolonged bleeding or issues with clotting. He went yesterday to dialysis and the staff felt it was clotted with no thrill or bruit noted. His landscape horticulture instructor at [facility] recommended he come to [facility], since the vascular surgeons at [facility] were all out of town. He previously saw Dr Avila in 06/22/2023 for a fistulogram of his left upper extremity AV graft. Since that time, he has had an new created in his left FA. He recently had vein mapping done. Given the recent issues with his left FA AVG, he discussed placing a new dialysis access with vascular surgeon. Lab work done in ED demonstrated leukocytosis with WBC 11.33. Patient denied fevers, chills, shortness of breath or chest pain. Patient initially began dialysis on 03/12/2021 and dialyzes at [facility] //Sun. Vascular was consulted for placement of perma cath. At time of evaluation, patient was laying in bed in the [facility] ED. He was in no acute distress. He was hemodynamically stable. Blood pressure was 169/81 with pulse of 64. He states that he does not make urine. He denies headaches, blurred vision, nausea, vomiting, chest pain, palpitations, shortness of breath. Labs were reviewed. CHEM profile showed the following: Sodium 135, potassium 6.6, chloride 100, bicarb 23, BUN 54, creatinine 13.61. Calcium was 9.4. CBC was as follows: WBC 11.33, hemoglobin 11.0 (MCV 95.1), platelets 270. EKG was reviewed and did not show signs of hyperkalemia. Chest x-ray was reviewed and showed no acute cardiopulmonary disease. Interval history: 06/17/25 Patient seen and examined at bedside. Yesterday underwent dialysis 2K bath and 1K bath for persistently elevated potassium. Today he states he is feeling much better and more like himself. Denies acute complaints. Denies headaches, vision changes, chest pain, dyspnea. Reports he still is not making urine. Remains hypertensive with improving blood pressures. Renal function showing improvement after dialysis yesterday. Potassium has normalized today at 4.2. Yesterday he had a fistulagram and permacath tunnel dialysis catheter placed in his R subclavian. Tolerated the procedure well. He still has the R femoral CVC in place and is hoping to have it removed soon in preparation for discharge. Blood pressures are somewhat improved overnight during sleep but remain elevated during the day in the 160s - 170s systolic. Objective: Input/Output: Intake/Output Summary (Last 24 hours) at 06/17/2025 0940 Last data filed at 06/16/2025 1644 Gross per 24 hour Intake 250 ml Output 3505 ml Net -3255 ml I/O last 3 completed shifts: In: 500 (5.9 mL/kg) [I.V.:500 (5.9 mL/kg)] Out: 3505 (41.5 mL/kg) [Other:3500; Blood:5] Weight: 84.5 kg Vital signs: Temperature: Temp: 36.7 ???C (98 ???F) TMax: Temp (24hrs), Av.6 ???C (97.8 ???F), Min:36.1 ???C (97 ???F), Max:36.9 ???C (98.4 ???F) Respirations: Resp: 15 Pulse: Heart Rate: 85 BP: BP: (!) 161/97 BP Range: Systolic (24hrs), Av , Min:138 , Max:199 Diastolic (24hrs), Av, Min:70, Max:99 Wt Readings from Last 3 Encounters: 06/17/25 84.5 kg (186 lb 4.6 oz) 02/16/25 89.8 kg (198 lb) 10/24/24 89.8 kg (198 lb) Physical Exam Constitutional: Appearance: Normal appearance. HENT: Head: Normocephalic and atraumatic. Cardiovascular: Rate and Rhythm: Normal rate and regular rhythm. Pulses: Normal pulses. Pulmonary: Effort: Pulmonary effort is normal. Breath sounds: Normal breath sounds. Comments: R subclavian tunnel dialysis catheter in place, clean and dry Abdominal: General: Abdomen is flat. There is no distension. Palpations: Abdomen is soft. Tenderness: There is no abdominal tenderness. There is no guarding. Musculoskeletal: Right lower leg: No edema. Left lower leg: No edema. Comments: L AV fistula L femoral CVC Skin: General: Skin is warm and dry. Coloration: Skin is not jaundiced. Neurological: General: No focal deficit present. Mental Status: He is alert. Psychiatric: Mood and Affect: Mood normal. Behavior: Behavior normal. Thought Content: Thought content normal. Current Medications: Scheduled Meds: aspirin, 81 mg, oral, Daily atorvastatin, 40 mg, oral, Daily carvedilol, 25 mg, oral, BID cloNIDine, 0.1 mg, oral, q12h clopidogrel, 75 mg, oral, Daily gabapentin, 300 mg, oral, BID hydrALAZINE, 100 mg, oral, 2 times daily isosorbide mononitrate ER, 30 mg, oral, Once Daily le (more content not included)... [facility] 06-17-2025 Note 06/17/25 7776 Admission Assessment Questions Verify insurance with patient Yes Do you understand medical disease or what brought you into the hospital? Yes Who is your current PCP? KISHOR Jay Can I schedule a follow up appointment for you at the time of discharge? No Does patient qualify for Complex Care Management Enrollment? No Do you understand why you are taking your current medications? Yes Are you taking your medications as prescribed? Yes Did patient provide teach back? No Pharmacy Bedside Delivery Status Not Interested Does the patient have a onsite case manager assigned to them through their insurance? No Living Arrangement (Current/Prior to Hospitalization) Private residence (from home alone) Does the patient have history of HHC or SNF? No Assistive Device Not applicable;Dialysis (ESRD on HD TTS at [facility]) Patient's goal for discharge home Was patient reminded that goal for discharge is 11am? No Does the patient have transportation at discharge? Yes Type of Residence Private residence Is PT/OT appropriate? No Is PT/OT ordered? No Is SW consult appropriate? No Is SW consult ordered? No Do you understand the benefits of MyChart? Yes Were you able to send link and activate MyChart? MyChart already active Would you like use our pharmacy i[facility] to fill your new medications at the time of Discharge? No 06/17 Admitted for Hyperkalemia and AVF malfunction. S/p fistulagram and permacath placement yesterday. ESRD on HD TTS at [facility]. From home alone. [facility] 06-16-2025 Note Right subclavian vei n Tunnel dialysis catheter insertion Post Procedure Note Date: 06/16/2025 Location: [facility] (Cath) Name: Leander Decker, : 1970, Diagnosis Pre-op Diagnosis * ESRD on hemodialysis (CMS/HCC) [N18.6, Z99.2] Surgeons Primary: Jenna Avila MD Procedures TUNNEL DIALYSIS CATHETER INSERTION Procedure Summary Anesthesia: Moderate Sedation Estimated Blood Loss: 5 mL Total IV Fluids: mL Drains: * None in log * Implants Type Name Action Serial No. Catheter CATHETER,DURAMAX,24CM - [id number] Implanted Staff: Scrub Person: Juanita Castaneda RT Office Support Clerk: Antoinette Velarde RT Invasive Nurse: Radha Reyes RN Indications: Leander Decker is an 54 y.o. male who is having surgery for ESRD on hemodialysis (CMS/HCC) [N18.6, Z99.2]. Patient has ESRD with history of permacath in the past more than once Procedure Details: The patient was seen in the preoperative area. The risks, benefits, complications, treatment options, non-operative alternatives, expected recovery and outcomes were discussed with the patient. The possibilities of reaction to medication, pulmonary aspiration, injury to surrounding structures, bleeding, recurrent infection, the need for additional procedures, failure to diagnose a condition, and creating a complication requiring transfusion or operation were discussed with the patient. The patient concurred with the proposed plan, giving informed consent. The site of surgery was properly noted/marked if necessary per policy. The patient has been actively warmed in preoperative area. Preoperative antibiotics have been ordered and given within 1 hours of incision. Venous thrombosis prophylaxis are not indicated. Patient put in a supine position the right side of the chest and neck were prepped and draped in the usual fashion. The IJV was occluded by US. Under ultrasound guidance access was made to the right subhclavian vein. Dilatation of the tract was done. A wire was placed. Then look anesthesia infiltrated in the chest area. Through a peel-away sheath the catheter was placed in the venous circulation with the tip in the superior vena cava. Both ports were flushed with hip saline there was easy to draw blood from both. The catheter was fixed in position. . Complications: None; patient tolerated the procedure well. Disposition: PACU - hemodynamically stable. Condition: stable Jenna Avila [facility] 06-16-2025 Note Attending Jean-Pierre polanco Patient seen and examined at bedside during nephrology rounds. Agree with the above findings and plan. Any changes to the above plan are written below. Patient seen during hemodialysis treatment, 2K bath and then 1K bath due to recurrent hyperkalemia and daily Lokelma 10g PO Planned for fistulogram after HD today due to non functioning fistula, currently using femoral trialysis catheter for dialysis He is above his dry weight and therefore fluid removal goal is 3.5L today as tolerated Nephrology Progress Note Patient : Leander Decker; 54 y.o. Location: [facility]/4102-01 Attending: Richi Amezcua MD Admit Date: 06/14/2025 Hospital Day: 2 Reason for Consult: Management of ESRD on HD Subjective: History of present illness: Leander Decker is a 54 y.o. male with ESRD on hemodialysis Sunday//Sunday. Patient had full hemodialysis treatment on . Other than some intermittently high venous pressures, he had a full treatment with no prolonged bleeding or issues with clotting. He went yesterday to dialysis and the staff felt it was clotted with no thrill or bruit noted. His landscape horticulture instructor at [facility] recommended he come to [facility], since the vascular surgeons at [facility] were all out of town. He previously saw Dr Avila in 06/22/2023 for a fistulogram of his left upper extremity AV graft. Since that time, he has had an new created in his left FA. He recently had vein mapping done. Given the recent issues with his left FA AVG, he discussed placing a new dialysis access with vascular surgeon. Lab work done in ED demonstrated leukocytosis with WBC 11.33. Patient denied fevers, chills, shortness of breath or chest pain. Patient initially began dialysis on 03/12/2021 and dialyzes at [facility] //Sun. Vascular was consulted for placement of perma cath. At time of evaluation, patient was laying in bed in the [facility] ED. He was in no acute distress. He was hemodynamically stable. Blood pressure was 169/81 with pulse of 64. He states that he does not make urine. He denies headaches, blurred vision, nausea, vomiting, chest pain, palpitations, shortness of breath. Labs were reviewed. CHEM profile showed the following: Sodium 135, potassium 6.6, chloride 100, bicarb 23, BUN 54, creatinine 13.61. Calcium was 9.4. CBC was as follows: WBC 11.33, hemoglobin 11.0 (MCV 95.1), platelets 270. EKG was reviewed and did not show signs of hyperkalemia. Chest x-ray was reviewed and showed no acute cardiopulmonary disease. Interval history: 06/16/25 Patient seen and examined at bedside in dialysis unit to resume his normal / schedule and due to potassium elevation. Denies acute complaints. Denies headaches, vision changes, chest pain, dyspnea. Reports he still is not making urine. Patient was seen again on hemodialysis, tolerating procedure well. Remains hypertensive with improving blood pressures. Renal function showing some mild improvement after dialysis yesterday. Potassium still remains high normal despite the additional dialysis treatment and Lokelma. Scheduled for fistulagram and possible permacath placement with vascular surgery today. He would also like to be established with a student records coordinator as he is working on smoking cessation and would like to be considered for renal transplant. Objective: Input/Output: Intake/Output Summary (Last 24 hours) at 06/16/2025 1230 Last data filed at 06/16/2025 1135 Gross per 24 hour Intake 1500 ml Output 6000 ml Net -4500 ml I/O last 3 completed shifts: In: 1440 (15.9 mL/kg) [P.O.:180; I.V.:760 (8.4 mL/kg); Other:500] Out: 4500 (49.6 mL/kg) [Other:4500] Weight: 90.7 kg Vital signs: Temperature: Temp: 36.1 ???C (97 ???F) TMax: Temp (24hrs), Av.4 ???C (97.5 ???F), Min:36.1 ???C (97 ???F), Max:36.6 ???C (97.9 ???F) Respirations: Resp: 15 Pulse: Heart Rate: 88 BP: BP: 175/84 BP Range: Systolic (24hrs), Av , Min:145 , Max:233 Diastolic (24hrs), Av, Min:60, Max:106 Wt Readings from Last 3 Encounters: 06/16/25 90.7 kg (199 lb 15.3 oz) 02/16/25 89.8 kg (198 lb) 10/24/24 89.8 kg (198 lb) Physical Exam Constitutional: Appearance: Normal appearance. HENT: Head: Normocephalic and atraumatic. Cardiovascular: Rate and Rhythm: Normal rate and regular rhythm. Pulses: Normal pulses. Pulmonary: Effort: Pulmonary effort is normal. Breath sounds: Normal breath sounds. Abdominal: General: Abdomen is flat. There is no distension. Palpations: Abdomen is soft. Tenderness: There is no abdominal tenderness. There is no guarding. Musculoskeletal: Right lower leg: No edema. Left lower leg: No edema. Comments: L AV fistula L femoral CVC Skin: General: Skin is warm and dry. Coloration: Skin is not jaundiced. Neurological: General: No focal deficit present. Mental Status: He is alert. Psychiatric: Mood and Affect: (more content not included)... [facility] 06-16-2025 Note ---- Attestation signed by Richi Amezcua MD at 06/17/2025 2:32 PM Patient was seen and examined with the resident on the same date of service, I discussed the findings and therapeutic plan with the resident/fellow, I agree with the documentation, assessment and plan as above except for any edits/updates below. Richi Amezcua MD doctor of veterinary medicine Pulmonary and critical care department [phone] ---- Primary Pulmonology Progress Note Patient - Leander Decker Age - 54 [facility] 1970 [id number] Date of Admission - 06/14/2025 11:57 AM Interval History Patient was examined at bedside. No acute events overnight reported by bedside RN. Denies SOB, cough, chest pain, palpitation, nausea, vomiting. Patient is eating and drinking well. He underwent emergency dialysis yesterday because of severe hyperkalemia. Vascular planing for the fistulagram and permacath today at 2 pm Subjective HPI/Hospital Course Leander Decker is a 54 y.o. male born 1970 with past medical history of ESRD on hemodialysis TTS presented to emergency department for malfunctioning AV fistula. 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 Patient during my evaluation was comfortable in no acute distress. Vascular are consulted. Vascular planing for the fistulagram and permacath. OBJECTIVE Vitals: Temp: [36.1 ???C (97 ???F)-36.6 ???C (97.9 ???F)] 36.1 ???C (97 ???F) Heart Rate: [66-89] 88 Resp: [11-22] 15 BP: (145-233)/(60-106) 175/84 Physical Exam Constitutional: Appearance: He is obese. Cardiovascular: Rate and Rhythm: Normal rate and regular rhythm. Pulses: Normal pulses. Heart sounds: Normal heart sounds. Pulmonary: Effort: Pulmonary effort is normal. Breath sounds: Normal breath sounds. Abdominal: General: Bowel sounds are normal. Musculoskeletal: Right lower leg: No edema. Left lower leg: No edema. Comments: AV fistula left forearm, no thrill Neurological: General: No focal deficit present. Mental Status: He is alert and oriented to person, place, and time. Objective Weight: Admission weight: 83.9 kg (185 lb) Wt Readings from Last 1 Encounters: 06/16/25 90.7 kg (199 lb 15.3 oz) Input/Output: Intake/Output Summary (Last 24 hours) at 06/16/2025 1222 Last data filed at 06/16/2025 1135 Gross per 24 hour Intake 1500 ml Output 6000 ml Net -4500 ml Ventilator: Lab Results ABG: pH, Arterial Date Value Ref Range Status 05/29/2024 7.46 (H) 7.35 - 7.45 pH Final pCO2, Arterial Date Value Ref Range Status 05/29/2024 39 35 - 48 mmHg Final pO2, Arterial Date Value Ref Range Status 05/29/2024 111 (H) 83 - 100 mmHg Final HCO3, Arterial Date Value Ref Range Status 05/29/2024 27.7 21.0 - 28.0 mEq/L Final pH, Sincere Date Value Ref Range Status 06/14/2025 7.33 7.31 - 7.41 Final pCO2, Sincere Date Value Ref Range Status 06/14/2025 48 40 - 50 mmHg Final pO2, Sincere Date Value Ref Range Status 06/14/2025 25 (L) 35 - 45 mmHg Final HCO3, Venous Date Value Ref Range Status 06/14/2025 25.3 mmol/L Final Ionized Calcium POC Date Value Ref Range Status 06/20/2023 1.14 1.12 - 1.32 mmol/L Final CBC: Results from last 7 days Lab Units 06/16/25 03406/15/25 0513 06/14/25 1259 WBC AUTO 10*3/uL 8.19 10.09 11.33* HEMOGLOBIN g/dL 11.1* 10.9* 11.0* HEMATOCRIT % 35.1* 34.5* 35.3* PLATELETS AUTO 10*3/uL 296 285 270 Coagulation: Results from last 7 days Lab Units 06/14/25 1259 APTT Seconds 26.7 INR 1.06 Metabolic Panel: Results from last 7 days Lab Units 06/16/25 0348 06/15/25 1637 06/15/25 1607 06/15/25 0513 06/14/25 1746 SODIUM mmol/L 136 -- -- 137 137 POTASSIUM mmol/L 5.1 5.7* 5.7* 5.7* 3.3* CHLORIDE mmol/L 99 -- -- 99 96* CO2 mmol/L 27 -- -- 26 28 BUN mg/dL 35* -- -- 38* 26* CREATININE mg/dL 10.14* -- -- 10.87* 6.89* GLUCOSE mg/dL 84 -- -- 80 83 CALCIUM mg/dL 9.1 -- -- 9.0 9.1 PHOSPHORUS mg/dL -- -- -- 4.9 -- MAGNESIUM mg/dL -- -- -- 2.4 -- Liver Panel: Results from last 7 days Lab Units 06/15/25 0513 ALBUMIN g/dL 3.6 Glucose: Hgb A1c: Cardiac: No lab exists for component: TROPI , TROPONIN Anemia Labs: Lipid Panel: No lab exis (more content not included)... [facility] 06-16-2025 Note Pt on the unit for h is 3.5 hour scheduled dialysis tx. Pt tolerated tx well, 3.5 kg removed. Pt will not a new dry weight before discharge. [facility] 06-16-2025 Note [facility] Vascular Surgery DAILY PROGRESS NOTE Subjective/Interval History Patient was seen and evaluated at the bedside. He report no acute events overnight. Patient resting comfortably in bed and reports feeling well today. Completed dialysis yesterday without complications. Potassium and creatinine are stable. He denies shortness of breath and chest pain this morning. Plan for fistulagram vs permcath placement today. Objective Vitals: Vitals: 06/16/25 0510 BP: 145/60 Pulse: 79 Resp: 12 Temp: SpO2: 97% I/O last 3 completed shifts: In: 1440 (15.9 mL/kg) [P.O.:180; I.V.:760 (8.4 mL/kg); Other:500] Out: 4500 (49.6 mL/kg) [Other:4500] Weight: 90.7 kg No intake/output data recorded. Physical Exam Constitutional: Appearance: Normal appearance. HENT: Head: Normocephalic and atraumatic. Cardiovascular: Rate and Rhythm: Normal rate. Pulses: Normal pulses. Radial pulses are 2+ on the left side. Arteriovenous access: Left arteriovenous access is present. Comments: No thrill or palpable pulses of the AV graft site Neurological: Mental Status: He is alert. Labs: Results from last 7 days Lab Units 06/16/25 0348 06/15/25 0513 06/14/25 1259 WBC AUTO 10*3/uL 8.19 10.09 11.33* HEMOGLOBIN g/dL 11.1* 10.9* 11.0* HEMATOCRIT % 35.1* 34.5* 35.3* PLATELETS AUTO 10*3/uL 296 285 270 Results from last 7 days Lab Units 06/16/25 0348 06/15/25 1637 06/15/25 1607 06/15/25 0513 06/14/25 1746 06/14/25 1259 SODIUM mmol/L 136 -- -- 137 137 135* POTASSIUM mmol/L 5.1 5.7* 5.7* 5.7* 3.3* 6.6* CO2 mmol/L 27 -- -- 26 28 23 BUN mg/dL 35* -- -- 38* 26* 54* CREATININE mg/dL 10.14* -- -- 10.87* 6.89* 13.61* Results from last 7 days Lab Units 06/14/25 1259 INR 1.06 Medications: aspirin, 81 mg, oral, Daily atorvastatin, 40 mg, oral, Daily carvedilol, 25 mg, oral, BID CENTRISOL-142 bicarbonate hemodialysis concentrate, 800 mL/min, hemodialysis, Once cloNIDine, 0.1 mg, oral, q12h clopidogrel, 75 mg, oral, Daily gabapentin, 300 mg, oral, BID heparin (porcine), 3,500 Units, Hemodialysis Circuit, Once hydrALAZINE, 100 mg, oral, 2 times daily isosorbide mononitrate ER, 30 mg, oral, Once Daily levothyroxine, 112 mcg, oral, Daily before breakfast [Held by provider] lisinopril, 10 mg, oral, BID nicotine, 1 patch, transdermal, Once NIFEdipine XL, 30 mg, oral, Daily heparin (porcine), 1,500 Units/hr Imaging: ECG 12 lead Normal sinus rhythm Possible Left atrial enlargement Possible anterior infarct (cited on or before 14-JUN-2025) Abnormal ECG Confirmed by Travon Benton ([id number]) on 06/15/2025 5:18:38 PM Assessment/Plan Leander Decker is a 54 y.o. male with a past medical history of CVA (2020), CHF, COPD, CAD, Cuong's Thyroiditis, and ESRD on HD with a left arm loop AV graft. Patient was at dialysis when it was found that he did not have a thrill or a bruit while on dialysis. Patient has a HD triple lumen catheter and has completed dialysis successfully Patient is planned for fistulagram vs permacath today Remainder of care per primary team Jarett Ruiz MD General Surgery, PGY-1 Vascular Surgery Service Elle Valdivia PA-C Vasular Surgery and Wound Care x [phone] For non-urgent questions, [employer] may be used [phone] - [phone], M-F. For urgent concerns, please call [phone], or ask the live source operator to connect you to the on-call center analyst. For after-hours concerns, please page [phone], or ask the live source operator to connect you to the on-call center analyst. [facility] 06-15-2025 Note ---- Attestation signed by Tono Potts MD at 06/16/2025 8:55 AM Patient seen and examined at bedside during nephrology rounds. Agree with the above findings and plan. Any changes to the above plan are written below. ---- Nephrology Progress Note Patient : Leander Decker; 54 y.o. Location: 4102/4102-01 Attending: Richi Amezcua MD Admit Date: 06/14/2025 Hospital Day: 1 Reason for Consult: Management of ESRD on HD Subjective: History of present illness: Leander Decker is a 54 y.o. male with ESRD on hemodialysis Sunday//Sunday. Patient had full hemodialysis treatment on . Other than some intermittently high venous pressures, he had a full treatment with no prolonged bleeding or issues with clotting. He went yesterday to dialysis and the staff felt it was clotted with no thrill or bruit noted. His landscape horticulture instructor at [facility] recommended he come to [facility] [place], since the vascular surgeons at [facility] were all out of town. He previously saw Dr Avila in 06/22/2023 for a fistulogram of his left upper extremity AV graft. Since that time, he has had an new created in his left FA. He recently had vein mapping done. Given the recent issues with his left FA AVG, he discussed placing a new dialysis access with vascular surgeon. Lab work done in ED demonstrated leukocytosis with WBC 11.33. Patient denied fevers, chills, shortness of breath or chest pain. Patient initially began dialysis on 03/12/2021 and dialyzes at [facility] //Sun. Vascular was consulted for placement of perma cath. At time of evaluation, patient was laying in bed in the [facility] ED. He was in no acute distress. He was hemodynamically stable. Blood pressure was 169/81 with pulse of 64. He states that he does not make urine. He denies headaches, blurred vision, nausea, vomiting, chest pain, palpitations, shortness of breath. Labs were reviewed. CHEM profile showed the following: Sodium 135, potassium 6.6, chloride 100, bicarb 23, BUN 54, creatinine 13.61. Calcium was 9.4. CBC was as follows: WBC 11.33, hemoglobin 11.0 (MCV 95.1), platelets 270. EKG was reviewed and did not show signs of hyperkalemia. Chest x-ray was reviewed and showed no acute cardiopulmonary disease. Interval history: 06/15/25 Patient seen and examined at bedside. Denies acute complaints. He was noted to be hyperkalemic, and received HD treatment. Patient was seen again on hemodialysis, tolerating procedure well. Noted to be hypertensive and blood pressure medications adjusted Objective: Input/Output: Intake/Output Summary (Last 24 hours) at 06/15/20258 Last data filed at 06/15/2025 1839 Gross per 24 hour Intake 1190 ml Output 2500 ml Net -1310 ml I/O last 3 completed shifts: In: 1790 (19.5 mL/kg) [P.O.:180; I.V.:1010 (11 mL/kg); Other:500; IV Piggyback:100] Out: 4500 (49.1 mL/kg) [Other:4500] Weight: 91.7 kg Vital signs: Temperature: Temp: 36.6 ???C (97.9 ???F) TMax: Temp (24hrs), Av.6 ???C (97.9 ???F), Min:36.4 ???C (97.5 ???F), Max:36.8 ???C (98.2 ???F) Respirations: Resp: 17 Pulse: Heart Rate: 86 BP: BP: (!) 192/92 BP Range: Systolic (24hrs), Av , Min:119 , Max:192 Diastolic (24hrs), Av, Min:73, Max:95 Wt Readings from Last 3 Encounters: 06/15/25 91.7 kg (202 lb 2.6 oz) 02/16/25 89.8 kg (198 lb) 10/24/24 89.8 kg (198 lb) Physical Exam Constitutional: Appearance: Normal appearance. HENT: Head: Normocephalic and atraumatic. Cardiovascular: Rate and Rhythm: Normal rate and regular rhythm. Pulses: Normal pulses. Heart sounds: Normal heart sounds. Pulmonary: Breath sounds: Normal breath sounds. Abdominal: General: Abdomen is flat. Palpations: Abdomen is soft. Musculoskeletal: Right lower leg: No edema. Left lower leg: No edema. Comments: L AV fistula L femoral CVC Neurological: Mental Status: He is alert. Current Medications: Scheduled Meds: aspirin, 81 mg, oral, Daily atorvastatin, 40 mg, oral, Daily carvedilol, 25 mg, oral, BID cloNIDine, 0.1 mg, oral, q12h clopidogrel, 75 mg, oral, Daily gabapentin, 300 mg, oral, BID hydrALAZINE, 100 mg, oral, 2 times daily isosorbide mononitrate ER, 30 mg, oral, Once Daily levothyroxine, 112 mcg, oral, Daily before breakfast [Held by provider] lisinopril, 10 mg, oral, BID nicotine, 1 patch, transdermal, Once NIFEdipine XL, 30 mg, oral, Daily Continuous Infusions: PRN Meds: PRN medications: acetaminophen, albumin human, albuterol, heparin (porcine), labetaloL, midodrine, midodrine, naloxone OR naloxone OR naloxone, ondansetron ODT OR ondansetron, oxyCODONE Outpatient Medications: Medication Documentation Review Audit Reviewed by Balbina Hernandez MA (Porcelain Enamel Sprayer) on 02/16/25 at 1204 Medi (more content not included)... [facility] 06-15-2025 Note Patient completed di alysis via R Femoral CVC with 2 liters of fluid removed and no complications. BP elevated during treatment, labetolol prn given. Report given to Dipak Addison RN. [facility] 06-15-2025 Note [facility] Vascular Surgery DAILY PROGRESS NOTE Subjective/Interval History Patient was seen and evaluated at the bedside. They report no acute events overnight. Patient completed dialysis yesterday with HD triple lumen catheter. Potassium and creatinine have both improved today. He denies shortness of breath and chest pain this morning. Objective Vitals: Vitals: 06/15/25 0617 BP: (!) 183/88 Pulse: 73 Resp: 16 Temp: SpO2: 97% I/O last 3 completed shifts: In: 790 (9.4 mL/kg) [P.O.:180; I.V.:510 (6.1 mL/kg); IV Piggyback:100] Out: 2000 (23.8 mL/kg) [Other:2000] Weight: 83.9 kg No intake/output data recorded. Physical Exam Constitutional: Appearance: Normal appearance. HENT: Head: Normocephalic and atraumatic. Cardiovascular: Rate and Rhythm: Normal rate. Pulses: Normal pulses. Radial pulses are 2+ on the left side. Arteriovenous access: Left arteriovenous access is present. Comments: No thrill or palpable pulses of the AV graft site Neurological: Mental Status: He is alert. Labs: Results from last 7 days Lab Units 06/15/25 0513 06/14/25 1259 WBC AUTO 10*3/uL 10.09 11.33* HEMOGLOBIN g/dL 10.9* 11.0* HEMATOCRIT % 34.5* 35.3* PLATELETS AUTO 10*3/uL 285 270 Results from last 7 days Lab Units 06/15/25 0513 06/14/25 1746 06/14/25 1259 SODIUM mmol/L 137 137 135* POTASSIUM mmol/L 5.7* 3.3* 6.6* CO2 mmol/L 26 28 23 BUN mg/dL 38* 26* 54* CREATININE mg/dL 10.87* 6.89* 13.61* Results from last 7 days Lab Units 06/14/25 1259 INR 1.06 Medications: aspirin, 81 mg, oral, Daily atorvastatin, 40 mg, oral, Daily carvedilol, 25 mg, oral, BID clopidogrel, 75 mg, oral, Daily gabapentin, 300 mg, oral, BID hydrALAZINE, 100 mg, oral, 2 times daily levothyroxine, 112 mcg, oral, Daily before breakfast nicotine, 1 patch, transdermal, Once sodium zirconium cyclosilicate, 10 g, oral, Once Imaging: ECG 12 lead Normal sinus rhythm Possible Left atrial enlargement Possible Lateral infarct (cited on or before 14-JUN-2025) Abnormal ECG When compared with ECG of 14-JUN-2025 12:37, (unconfirmed) No significant change was found XR chest 1 view Narrative: CHEST 1 VIEW HISTORY: Shortness of breath, missed dialysis COMPARISON: 05/27/2024 FINDINGS: No focal airspace disease, pulmonary edema, pleural effusions, or pneumothorax. Normal cardiomediastinal silhouette. Impression: No acute cardiopulmonary disease. Electronically signed: Rey Mejias MD. Assessment/Plan Leander Decker is a 54 y.o. male with a past medical history of CVA (2020), CHF, COPD, CAD, Cuong's Thyroiditis, and ESRD on HD with a left arm loop AV graft. Patient was at dialysis when it was found that he did not have a thrill or a bruit while on dialysis. Patient had a HD triple lumen catheter placed yesterday and completed dialysis successfully Patient is tentatively planned for fistulagram vs permacath tomorrow Would recommend maintaining the triple lumen catheter at this time, to ensure patient has acces for dialysis Remainder of care per primary team Jessica Klein MD General Surgery, PGY-1 Vascular Surgery Service For non-urgent questions, [employer] may be used 0600 - 1800, M-F. For urgent concerns, please call [phone], or ask the live source operator to connect you to the on-call center analyst. For after-hours concerns, please page [phone], or ask the live source operator to connect you to the on-call center analyst. [facility] 06-15-2025 Note ---- Attestation signed by Richi Amezcua MD at 06/16/2025 10:18 AM Patient was seen and examined with the resident on the same date of service, I discussed the findings and therapeutic plan with the resident/fellow, I agree with the documentation, assessment and plan as above except for any edits/updates below. Underwent HD with correction of hyperkalemia Plan for fistulogram tomorrow Richi Amezcua MD doctor of veterinary medicine Pulmonary and critical care department [phone] ---- Primary Pulmonology Progress Note Patient - Leander Decker Age - 54 y.o. - 1970 Date of Admission - 06/14/2025 11:57 AM Interval History Patient was examined at bedside. No acute events overnight reported by bedside RN. Denies SOB, cough, chest pain, palpitation, nausea, vomiting. Patient is eating and drinking well. He underwent emergency dialysis yesterday because of severe hyperkalemia. Subjective HPI/Hospital Course Leander Decker is a 54 y.o. male born 1970 with past medical history of ESRD on hemodialysis TTS presented to emergency department for malfunctioning AV fistula. 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 Patient during my evaluation was comfortable in no acute distress. Interval History: 06/15/2025 Nephology and vascular are consulted. Vascular planing for the fistulagram and permacath. OBJECTIVE Vitals: Temp: [36.2 ???C (97.2 ???F)-36.9 ???C (98.4 ???F)] 36.4 ???C (97.5 ???F) Heart Rate: [64-87] 73 Resp: [11-20] 16 BP: (147-190)/(65-110) 183/88 Physical Exam Constitutional: Appearance: He is obese. Cardiovascular: Rate and Rhythm: Normal rate and regular rhythm. Pulses: Normal pulses. Heart sounds: Normal heart sounds. Pulmonary: Effort: Pulmonary effort is normal. Breath sounds: Normal breath sounds. Abdominal: General: Bowel sounds are normal. Musculoskeletal: Right lower leg: No edema. Left lower leg: No edema. Neurological: General: No focal deficit present. Mental Status: He is alert and oriented to person, place, and time. Objective Weight: Admission weight: 83.9 kg (185 lb) Wt Readings from Last 1 Encounters: 06/14/25 83.9 kg (185 lb) Input/Output: Intake/Output Summary (Last 24 hours) at 06/15/2025 0742 Last data filed at 06/14/2025 2000 Gross per 24 hour Intake 790 ml Output 2000 ml Net -1210 ml Ventilator: Lab Results ABG: pH, Arterial Date Value Ref Range Status 05/29/2024 7.46 (H) 7.35 - 7.45 pH Final pCO2, Arterial Date Value Ref Range Status 05/29/2024 39 35 - 48 mmHg Final pO2, Arterial Date Value Ref Range Status 05/29/2024 111 (H) 83 - 100 mmHg Final HCO3, Arterial Date Value Ref Range Status 05/29/2024 27.7 21.0 - 28.0 mEq/L Final pH, Sincere Date Value Ref Range Status 06/14/2025 7.33 7.31 - 7.41 Final pCO2, Sincere Date Value Ref Range Status 06/14/2025 48 40 - 50 mmHg Final pO2, Sincere Date Value Ref Range Status 06/14/2025 25 (L) 35 - 45 mmHg Final HCO3, Venous Date Value Ref Range Status 06/14/2025 25.3 mmol/L Final Ionized Calcium POC Date Value Ref Range Status 06/20/2023 1.14 1.12 - 1.32 mmol/L Final CBC: Results from last 7 days Lab Units 06/15/25 0513 06/14/25 1259 WBC AUTO 10*3/uL 10.09 11.33* HEMOGLOBIN g/dL 10.9* 11.0* HEMATOCRIT % 34.5* 35.3* PLATELETS AUTO 10*3/uL 285 270 Coagulation: Results from last 7 days Lab Units 06/14/25 1259 APTT Seconds 26.7 INR 1.06 Metabolic Panel: Results from last 7 days Lab Units 06/15/25 0513 06/14/25 1746 06/14/25 1259 SODIUM mmol/L 137 137 135* POTASSIUM mmol/L 5.7* 3.3* 6.6* CHLORIDE mmol/L 99 96* 100 CO2 mmol/L 26 28 23 BUN mg/dL 38* 26* 54* CREATININE mg/dL 10.87* 6.89* 13.61* GLUCOSE mg/dL 80 83 114* CALCIUM mg/dL 9.0 9.1 9.4 PHOSPHORUS mg/dL 4.9 -- -- MAGNESIUM mg/dL 2.4 -- -- Liver Panel: Results from last 7 days Lab Units 06/15/25 0513 ALBUMIN g/dL 3.6 Glucose: Hgb A1c: Cardiac: No lab exists for component: TROPI , TROPONIN Anemia Labs: Lipid Panel: No lab exists for component: CHOLHDL Urine Labs: Lab Results Component Value Date WBCU 21-50 (A) 03/16/2021 Addition (more content not included)... [facility] 06-14-2025 Note ---- Attestation signed by Richi Amezcua MD at 06/15/2025 5:33 PM I was present for bridges and critical portion of the procedure ---- US guided Trialysis line placement For Urgent Dialysis Pre-op Diagnosis: Hyperkalemia Post-op Diagnosis: Hyperkalemia Attending physician: Dr. Seven MD Fellow: Ross Ryder MD Consent: Obtain from patient Time-out: A time-out was completed verifying correct patient, site, and procedure. Procedure summary: The patient was placed in Supine position. The patient's right groin region was prepped and draped in sterile fashion using chlorohexidine scrub. Anesthesia was achieved with 1% lidocaine as local anesthetic. The right femoral vein was accessed under ultrasound guidance using an introducer needle. Venous, non-pulsatile blood was withdrawn. The syringe was removed and a guidewire was advanced into the introducer needle. A small incision was made at the skin surface with a scalpel and the introducer needle was exchanged for a dilator over the guidewire. After appropriate dilation, the central venous catheter was inserted. The wire was removed and the catheter was sutured in place. Area was cleaned and Tegaderm applied. The patient tolerated the procedure without any hemodynamic compromise. At time of procedure completion, all ports aspirated and flushed properly. COMPLICATIONS: None ESTIMATED BLOOD LOSS: 5 ml Ross Ryder MD Critical Care Fellow PGY 6 [facility] 04-28-2025 Evaluation note Diagnosis Onset Date Resolution Hemodialysis access, AV graft acute April 28, 2025 10:37am Hemodialysis access, AV graft acute May 06, 2025 9:59am Acute respiratory failure with hypoxia and hypercapnia inactive May 20, 2025 2:44am Anemia of renal disease inactive A ugust 2024 2:44am Benign hypertension with end-stage renal disease inactive May 202024 2:44am ESRD (end stage renal disease) inactive May 20, 2025 2:44am Hyperparathyroidism inactive Augus t 2024 2:44am Missed dialysis inactive May 2:44am Volume overload inactive May 2:44am Hemodialysis access, AV graft acute May 28 11:45am AV graft thrombosis acute Septe mb2024 11:38am DDD (degenerative disc disease), cervical acute June 2:00pm Dependence on renal dialysis acute June 18, 2025 2:00pm Eczema acute June 18, 2025 2:00pm End stage renal disease due to benign hypertension acute June 18, 2025 2:00pm Hyperlipidemia acute June 18, 2025 2:00pm Hypertension acute June 2:00pm Hypothyroid acute June 2:00pm Neuropathy acute June 18, 2025 2:00pm Screening for lung cancer June 18, 2025 2:00pm Screening for prostate cancer June 18, 2025 2:00pm Tobacco abuse acute June [id number] 2:00pm Carotid stenosis, bilateral acute July 20, 2025 10:21am Eczema acute July 20, 2 025 10:21am Hypertension acute July 20, 2025 10:21am Neuropathy acute July 20, 025 10:21am [facility] Work Phone: 1(911) 694-562706-30-2025 Evaluation note* Diagnosis Onset Date Resolution Status Admit Date Hypertension acute April 13, 2 025 9:37am Hemodialysis access, AV graft acute April 28, 2025 10:37am Hemodialysis access, AV graft acute May 06, 2025 9:59am Acute respiratory failure hypoxia and hypercapnia inactive May 202024 2:44am Anemia of renal disease inactive A ugust 2024 2:44am Benign hypertension with end -stage renal disease inactive May 20, 2025 2:44am ESRD (end stage renal disease) inact delilah May 20, 2025 2:44am Hyperparathyroidism inactive 2024 2:44am Missed dialysis inactive May 2:44am Volume overload inactive May 2:44am [facility] Work Phone: 1(494) 625-961006-30-2025 Evaluation note* Diagnosis Onset Date Resolution Status Admit Date Hypertension acute April 13, 2 025 9:37am Hemodialysis access, AV graft acute April 28, 2025 10:37am Hemodialysis access, AV graft acute May 06, 2025 9:59am Acute respiratory failure wi th hypoxia and hypercapnia inactive May 202024 2:44am Anemia of renal disease inactive A ugust 2024 2:44am Benign hypertension with end -stage renal disease inactive May 20, 2025 2:44am ESRD (end stage renal disease) inact delilah May 20, 2025 2:44am Hyperparathyroidism inactive Augus t 2024 2:44am Missed dialysis inactive May 2:44am Volume overload inactive May 2:44am Hemodialysis access, AV graft acute May 28, 2025 11:45am [facility] Work Phone: 1(229) 580-893106-30-2025 Evaluation note* Diagnosis Onset Date Resolution Status Admit Date Hypertension acute April 13 9:37am Hemodialysis access, AV graft acute April 28, 2025 10:37am Hemodialysis access, AV graft acute May 06, 2025 9:59am Acute respiratory failure wi th hypoxia and hypercapnia inactive May 202024 2:44am Anemia of renal disease inactive A ugust 2024 2:44am Benign hypertension with end-stage renal disease inactive May 202024 2:44am ESRD (end stage renal disease) inact delilah May 20, 2025 2:44am Hyperparathyroidism inactive Mayus 2024 2:44am Missed dialysis inactive May 2:44am Volume overload inactive May 2:44am Hemodialysis access, AV graft acute May 28, 2025 11:45am AV graft thrombosis acute 2024 11:38am Eczema acute June 18, 2025 2:00pm Hyperlipidemia acute June 18, 2025 2:00pm Hypothyroid acute June 2:00pm Screening for prostate cancer acute June 18, 2025 2:00pm [facility] Work Phone: 1(696) 913-897105-15-2025 [place] [address] Hospitalist Progress Note Signed Patient: Leander Decker MR#: [id number] : 1970 Acct:[id number] Age/Sex: 54 / M Adm Date: 5 Loc: Room: [address] [place] [address] Type: ADM IN Attending Dr: Irwin Theodore [...] Dose Route Start Last Admin Trade Name Gabi PRN Reason Stop Dose Admin Acetaminophen 1,000 [...] 25 Mcg/Ml Vial IV-PUSH 02/26/26 10:00 Th@1000 [facility] Protocol Dextrose 0 gm 02/24/25 12:13 02/25/25 06:27 Dextrose 50% In Water 25 Gm/50 Ml Syringe IV-PUSH 02/24/26 12:12 25 gm PRN PRN Administration Hypoglycemia Gabapentin 300 mg 02/25/25 14:00 Gabapentin 300 Mg Capsule PO 02/25/26 13:59 DAILY [facility] Glucose 0 gm 02/24/25 12:13 Dextrose 40% [...] 50 Mg Tablet PO 02/24/26 20:59 BID [facility] Sodium Chloride 1,000 mls @ 0 mls/hr 02/24/25 10:01 02/24/25 12:18 0.9% Sodium Chloride 1,000 Ml MISCELLANE 02/24/26 10:00 Infused .Q0M PRN Infusion Dialysis As Directed Isosorbide Mononitrate 30 mg 02/26/25 09:00 Isosorbide Mononitrate 24hr Er 30 Mg Tab.Er.24h PO 02/26/26 08:59 DAILY [facility] Levothyroxine Sodium 100 mcg 02/25/25 06:30 02/25/25 [...] home tomorrow. Documented By: Irwin Theodore MD 02/25/25 1226 Signed By: 02/25/25 1226 [facility]05-15-2025 [id number] Discharge Summary Signed Patient: Leander Decker MR#: [id number] : 1970 Acct:[id number] Age/Sex: 54 / M Adm Date: 5 Loc: Room: [address] [place] [address]: Irwin Theodore MD Copies to: MD Shantell Mcgarry, [facility]~ Providers Date of Discharge: 02/26/25 Discharging Provider: Irwin Theodore Primary Care Provider: Shantell Osei Consults: 02/24/25 10:51 Consult to Nephrology Routine Comment: Consulting Provider: [facility] Nephrology Has Provider Been Notified: Yes Date of Notification: 02/24/25 Time of Notification: 11:11 Reason for Consult: Dialysis Treatment Consult to Pulmonology Routine Comment: Consulting Provider: [facility] Pulmon, CC & Sleep Med Reason For Exam: vent [...] Course Hospital course: Patient is a pleasant 33-ly[age]--year-old male hemodialysis, who felt very thirsty and [...] PO DAILY Qty: 30 2RF Follow Up: [facility] [Outside] (Their office is currently unavailable. Please [...] 2.21 Documented By: Irwin Theodore MD 02/26/25 1444 Signed By: 02/26/25 1455 [facility]05-15-2025 Progress note Author Junior Mayo [facility] Note Date/Time February 26, 2025 11:30 am [facility] [address] [place] [address] Nephrology Progress Note Signed Patient: Leander Decker MR#: [id number] : 1970 Acct:[id number] Age/Sex: 54 / M Adm Date: 5 Loc: Room: [address] [place] [address] Type: ADM IN Attending Dr: Irwin Theodore MD Copies to: ~ Date of Service: 02/26/2025 Subjective Subjective Narrative: Mr. Decker is a 54-year-old male with relevant past medical history of ESRD on hemodialysis since February 2022 and receives dialysis at [facility] [place] on[place]S schedule. Patient presented to [facility] ED earlier today on 02/24/2025 via EMS s/p cardiac arrest. History was obtained from previous HPI from [facility]. He did not miss hemodialysis on Sunday. [...] BNP greater than 35,000. Upon arrival to [facility], the patient is intubated and sedated. Nephrology [...] Skin: No rashes , warm to touch CONNECTION WORKER: Awake,Alert, following simple command Musculoskeletal: No swelling [...] [facility] Stop: 02/25/26 08:59 Last Admin: 02/26/25 08:11 Dose: 81 mg Atorvastatin Calcium (Atorvastatin 10 Mg Tablet) 10 mg OG-TUBE DAILY [facility] Stop: 02/25/26 08:59 Last Admin: 02/26/25 08:12 Dose: 10 mg Carvedilol (Carvedilol 12.5 Mg Tablet) 12.5 mg PO BID.WITH.MEALS [facility] Stop: 02/25/26 16:59 Last Admin: 02/26/25 08:12 Dose: 12.5 mg Clopidogrel Bisulfate (Clopidogrel Bisulfate 75 Mg Tablet) 75 mg OG-TUBE DAILY [facility] Stop: 02/25/26 08:59 Last Admin: 02/26/25 08:12 Dose: 75 mg Darbepoetin Garry (Darbepoetin Garry In Polysorbat 25 Mcg/Ml Vial) 25 mcg IV-PUSHTh@1000 [facility]; Protocol Stop: 02/26/26 10:00 Dextrose (Dextrose 50% In Water 25 Gm/50 Ml Syringe) 0 gm IV-PUSH PRN PRN PRN Reason: Hypoglycemia Stop: 02/24/26 12:12 Last Admin: 02/25/25 06:27 Dose: 25 gm Gabapentin (Gabapentin 300 Mg Capsule) 300 mg PO DAILY@1400 [facility] Stop: 02/26/26 13:59 Glucose (Dextrose 40% Gel [...] 800 Mg Tablet) 1,600 mg PO TID.WITH.MEALS [facility] Stop: 02/25/26 16:59 Last Admin: 02/26/25 08:12 [...] the hypertensive nephrosclerosis. He currently goes to [facility] hemodialysis unit 3 times a week on [...] Junior Mayo MD 02/26/25 1129 Signed By: <Electronically signed by Junior Mayo MD> 02/26/25 1130 [facility] Work Phone: 1(204) 426-345105-15-2025 [place] [id number] Nephrology Progress Note Signed Patient: Leander Decker MR#: [id number] : 1970 Acct:[id number] Age/Sex: 54 / M Adm Date: 5 Loc: Room: [address] [place] [address] Type: ADM IN Attending Dr: Irwin Theodore MD Copies to: ~ Date of Service: 02/26/2025 Subjective Subjective Narrative: Mr. Decker is a 54-year-old male with relevant past medical history of ESRD on hemodialysis since February2022 and receives dialysis at [facility] [place] onTTS schedule. Patient presented to [facility] ED earlier today on 02/24/2025 via EMS s/p cardiac arrest. History was obtained from previous HPI from [facility]. He did not miss hemodialysis on Sunday. [...] BNP greater than 35,000. Upon arrival to [facility], the patient is intubated and sedated. Nephrologyconsult [...] Skin: No rashes , warm to touch CONNECTION WORKER: Awake,Alert, following simple command Musculoskeletal: No swelling [...] [facility] Stop: 02/25/26 08:59 Last Admin: 02/26/25 08:11 Dose: 81 mg Atorvastatin Calcium (Atorvastatin 10 Mg Tablet) 10 mg OG-TUBE DAILY [facility] Stop: 02/25/26 08:59 Last Admin: 02/26/25 08:12 Dose: 10 mg Carvedilol (Carvedilol 12.5 Mg Tablet) 12.5 mg PO BID.WITH.MEALS [facility] Stop: 02/25/26 16:59 Last Admin: 02/26/25 08:12 [...] 300 Mg Capsule) 300 mg PO DAILY@1400 [facility] Stop: 02/26/26 13:59 Glucose (Dextrose 40% Gel [...] the hypertensive nephrosclerosis. He currently goes to [facility] hemodialysis unit 3 times a week on [...] MD 02/26/25 1129 Signed By: 02/26/25 1130 [facility]05-14-2025 Progress note Author Junior Mayo [facility] Note Date/Time February 25, 2025 2:22p m [facility] [address] [place] [address] Nephrology Progress Note Signed Patient: Leander Decker MR#: [id number] : 1970 Acct:[id number] Age/Sex: 54 / M Adm Date: 5 Loc: Room: 9P2659-6 Type: ADM IN Attending Dr: Irwin Theodore MD Copies to: ~ Date of Service: 02/25/2025 Subjective Subjective Narrative: Mr. Decker is a 54-year-old male with relevant past medical history of ESRD on hemodialysis since February 2022 and receives dialysis at [facility] onTTS schedule. Patient presented to [facility] ED earlier today on 02/24/2025 via EMS s/p cardiac arrest. History was obtained from previous HPI from [facility]. He did not miss hemodialysis on Sunday. [...] BNP greater than 35,000. Upon arrival to [facility], the patient is intubated and sedated. Vitals remained somewhat stable. Nephrology consulted for hemodialysis management due to persistent volume overloaded state in [place] Interim history Patient was seen and examined [...] 02/25/25 12:00 02/25/25 13:00 02/25/25 13:00 02/25/25 13:02/25/25 13:00 02/25/25 13:02/25/25 11:00 FiO2 30 02/25/25 09:04 Narrative: General: [...] Skin: No rashes , warm to touch CONNECTION WORKER: Awake,Alert, following simple command Musculoskeletal: No swelling [...] 81 Mg Tab.Chew) 81 mg PO DAILY [facility] Stop: 02/25/26 08:59 Last Admin: 02/25/25 08:34 Dose: 81 mg Atorvastatin Calcium (Atorvastatin 10 Mg Tablet) 10 mg OG-TUBE DAILY [facility] Stop: 02/25/26 08:59 Last Admin: 02/25/25 08:34 Dose: 10 mg Carvedilol (Carvedilol 12.5 Mg Tablet) 12.5 mg PO BID.WITH.MEALS [facility] Stop: 02/25/26 16:59 Clopidogrel Bisulfate (Clopidogrel Bisulfate 75 Mg Tablet) 75 mg OG-TUBE DAILY [facility] Stop: 02/25/26 08:59 Last Admin: 02/25/25 08:34 Dose: 75 mg Darbepoetin Garry (Darbepoetin Garry In Polysorbat 25 Mcg/Ml Vial) 25 mcg IV-PUSHTh@1000 [facility]; Protocol Stop: 02/26/26 10:00 Dextrose (Dextrose 50% In Water 25 Gm/50 Ml Syringe) 0 gm IV-PUSH PRN PRN PRN Reason: Hypoglycemia Stop: 02/24/26 12:12 Last Admin: 02/25/25 06:27 Dose: 25 gm Gabapentin (Gabapentin 300 Mg Capsule) 300 mg PO DAILY [facility] Stop: 02/25/26 13:59 Last Admin: 02/25/25 13:52 [...] 800 Mg Tablet) 1,600 mg PO TID.WITH.MEALS [facility] Stop: 02/25/26 16:59 Sodium Chloride (Sodium Chloride [...] Medeiros M.D. 02/24/2025 4:29 PM Dictation Location: [place] [address] Chest X-Ray 02/25/25 05:00 IMPRESSION: NO SIGNIFICANT CHANGE IN CHEST FINDINGS. Impression dictated by: Vj Hendrix Jr., D.O. 02/25/2025 9:14 AM Dictation Location: [place] [address] Any impression(s) listed above is documentation that [...] the hypertensive nephrosclerosis. He currently goes to [facility] hemodialysis unit 3 times a week on [...] * Documented By: Junior Mayo MD 02/25/25 1410 Signed By: <Electronically signed by Junior Mayo MD> 02/25/25 1426 [facility] Work Phone: 1(907) 347-654205-14-2025 [place] [address] Nephrology Progress Note Signed Patient: Leander Decker MR#: [id number] : 1970 Acct:[id number] Age/Sex: 54 / M Adm Date: 5 Loc: Room: [address] [place] [address] Type: ADM IN Attending Dr: rIwin Theodore MD Copies to: ~ Date of Service: 02/25/2025 Subjective Subjective Narrative: Mr. Decker is a 54-year-old male with relevant past medical history of ESRD on hemodialysis since February2022 and receives dialysis at [facility] [place] onTTS schedule. Patient presented to [facility] ED earlier today on 02/24/2025 via EMS s/p cardiac arrest. History was obtained from previous HPI from [facility]. He did not miss hemodialysis on Sunday. [...] BNP greater than 35,000. Upon arrival to [facility], the patient is intubated and sedated. Vitals remained somewhat stable. Nephrology consulted for hemodialysis management due to persistent volume overloaded state in [place] Interim history Patient was seen and examined [...] Skin: No rashes , warm to touch CONNECTION WORKER: Awake,Alert, following simple command Musculoskeletal: No swelling [...] 81 Mg Tab.Chew) 81 mg PO DAILY [facility] Stop: 02/25/26 08:59 Last Admin: 02/25/25 08:34 Dose: 81 mg Atorvastatin Calcium (Atorvastatin 10 Mg Tablet) 10 mg OG-TUBE DAILY [facility] Stop: 02/25/26 08:59 Last Admin: 02/25/25 08:34 Dose: 10 mg Carvedilol (Carvedilol 12.5 Mg Tablet) 12.5 mg PO BID.WITH.MEALS [facility] Stop: 02/25/26 16:59 Clopidogrel Bisulfate (Clopidogrel Bisulfate 75 Mg Tablet) 75 mg OG-TUBE DAILY [facility] Stop: 02/25/26 08:59 Last Admin: 02/25/25 08:34 [...] 300 Mg Capsule) 300 mg PO DAILY [facility] Stop: 02/25/26 13:59 Last Admin: 02/25/25 13:52 [...] mg PO TID.WITH.MEALS [facility] Stop: 02/25/26 16:59 Sodium Chloride (Sodium Chloride [...] Medeiros M.D. 02/24/2025 4:29 PM Dictation Location: [facility] Chest X-Ray 02/25/25 05:00 IMPRESSION: NO SIGNIFICANT CHANGE IN CHEST FINDINGS. Impression dictated by: Vj Hendrix Jr., D.O. 02/25/2025 9:14 AM Dictation Location: [place] [address] Any impression(s) listed above is documentation that [...] the hypertensive nephrosclerosis. He currently goes to [facility] hemodialysis unit 3 times a week on [...] MD 02/25/25 1418 Signed By: 02/25/25 1422 [facility]05-14-2025 Progress note Author Pablo Valdez [facility] Note Date/Time February 25, 2025 10:29 am [facility] [address] [place], [place] [id number] Pulmonology Progress Note Signed Patient: Leander Decker MR#: [id number] : 1970 Acct:[id number] Age/Sex: 54 / M Adm Date: 5 Loc: Room: [address] [place] [address] Type: ADM IN Attending Dr: Irwin Theodore [...] care. Documented By: Pablo Valdez MD 5 [id number] Signed By: <Electronically signed by MD Pablo Valdez> 02/25/25 [facility]3 [facility] Work Phone: 1(885) 981-668105-14-2025 [place] [id number] Pulmonology Progress Note Signed Patient: Leander Decker MR#: [id number] : 1970 Acct:[id number] Age/Sex: 54 / M Adm Date: 5 Loc: Room: [address] [place] [address] Type: ADM IN Attending Dr: Irwin Theodore [...] Pablo Valdez MD 5 0739 Signed By: 02/25/[address] [place], [place] 6148805-13-2025 History and physical note Author Irwin Theodore [facility] Note Date/Time February 24, 2025 4:11p m [facility] [address] [place] [address] Hospitalist H&P Signed Patient: Leander Decker MR#: [id number] : 1970 Acct:[id number] Age/Sex: 54 / M Adm Date: Loc: Room: [address] [place] [address] Type: ADM IN Attending Dr: Irwin Theodore MD Copies to: MD Vj Mcgarry DO, RES Shantell Osei, COUNSELOR AT LAW-~ HPI DATE OF EXAMINATION: 02/24/25 CHIEF COMPLAINT: Shortness of Breath HISTORY OF PRESENT ILLNESS: Attending note: I saw the patient personally on the day of encounter. I reviewed the relevant history, and performed the bridges elements of the physical examination. I reviewedthe relevant laboratory workup, radiological studies and the current treatment plan. I formulated the plan of care and confirmed it with the resident/student/CLINICAL OPERATIONS CONSULTANT. Mr. Decker is a 54 year old male patient with pmHx of ESRD on dialysis (T, TR, Sat) and prior respiratory failure requiring intubation presents today as a transfer from [facility] ED earlier today where he originally presented from home via EMS for shortness of breath. Reportedly per chart review, the patient was short of breath at home where he walked a few steps outside, and then became unresponsive. Reportedly, once EMS arrived, his pulse was shortly lost where CPRwas briefly initiated, but then discontinued. When he arrived to the ED at [facility] he was unresponsive with respiratory distress. He [...] of Systems Unobtainable due to mental status [facility] Medical History (Updated 02/24/25 @ 11:29 by [...] Skin: No rashes , warm to touch CONNECTION WORKER: Intubated and sedated Assessment & Plan Assessment/Plan [...] <Electronically signed by DO COLIN Means> 02/24/25 1137 [facility] Work Phone: 1([phone]) 745-329205-13-2025 History [place] [address] Hospitalist H&P Signed Patient: Leander Decker MR#: [id number] : 1970 Acct:[id number] Age/Sex: 54 / M Adm Date: 5 Loc: Room: [address] [place] [address] Type: ADM IN Attending Dr: Irwin Theodore MD Copies to: MD Vj Mcgarry DO, RES Stephanie Breault, FNP-~ HPI DATE OF EXAMINATION: 02/24/25 CHIEF COMPLAINT: [...] care and confirmed it with the re sident/student/CLINICAL OPERATIONS CONSULTANT. Mr. Decker is a 54 year old male patient with pmHx of ESRD on dialysis (T, TR, Sat) and prior respiratory failure requiring intubation presents today as a transfer from [facility] ED earlier today where he originally presented from home via EMS for shortness of breath. Reportedly per chart review, the patient was short of breath at home where he walked a few steps outside, and then became unresponsive. Reportedly, once EMS arrived, his pulse was shortly lost where CPRwas briefly initiated, but thendiscontinued. When he arrived to the ED at [facility] he was unresponsive with respiratory distress. He [...] of Systems Unobtainable due to mental status [facility] Medical History (Updated 02/24/25 @ 11:29 by [...] Skin: No rashes , warm to touch CONNECTION WORKER: Intubated and sedated Assessment & Plan Assessment/Plan [...] 1050 Signed By: 02/24/25 1611 02/24/25 1135 [facility]05-13-2025 Consult note Author Junior Mayo [facility] Note Date/Time February 24, 2025 12:46 pm [facility] [address] [place] [address] Nephrology Consult Note Signed Patient: Leander Decker MR#: [id number] : 1970 Acct:[id number] Age/Sex: 54 / M Adm Date: 5 Loc: Room: [address] [place] [address] Type: ADM IN Attending Dr: Irwin Theodore [...] since February 2022 and receives dialysis at [facility] [place] onT. Patient presented to [facility] ED earlier today on 02/24/2025 via EMS s/p cardiac arrest. History was obtained from previous HPI from [facility]. He did not miss hemodialysis on Sunday. [...] BNP greater than 35,000. Upon arrival to [facility], the patient is intubated and sedated. Vitals remained somewhat stable. Nephrology consulted for CRRT/hemodialysis management due to persistent volume overloaded state Review of Systems Review of Systems Unobtainable due to endotracheal tube [facility] Medical History (Updated 02/24/25 @ 11:29 by [...] Use Type: None Social History Comments: mobile [employer] Meds Medications & Allergies Allergies No Known [...] Skin: No rashes , warm to touch CONNECTION WORKER: Intubated and sedated Musculoskeletal: No swelling or [...] sinceMay 2021 and currently receives it at [facility] on TTS schedule. Patient will need CRRT [...] 02/24/25 1246 <Electronically signed by DO COLIN Stockton Rice> 02/24/25 2380 [facility] Work Phone: 1(605) 481-921905-13-2025 Consult note Author Pablo Valdez [facility] Note Date/Time February 24, 2025 12:26 pm [facility] [address] [place] [address] Pulmonology Consult Note Signed Patient: Leander Decker MR#: [id number] : 1970 Acct:[id number] Age/Sex: 54 / M Adm Date: 5 Loc: Room: [address] [place] [address] Type: ADM IN Attending Dr: Irwin Theodore MD Copies to: MD Pablo Mcgarry MD Rebekah M Farris, , RES Shantell Osei, COUNSELOR AT LAW-BC~ HPI Date/Time of Consultation: Date of Service: 02/24/2025 Time of Service: 11:49 Consulting Provider: Pablo Valdez Requesting Provider: Irwin Theodore History of Present Illness History of present illness: Mr. Decker is a 54yo male with a PMH of CKD on dialysis (, , Sun), HTN, HLD, COPD, hypothyroidism, and STEFANIE who presents as a transfer from [facility] intubated and sedated and due for dialysis. History is obtained from [facility] chart as well as girlfriend and sister [...] bagged by EMS and intubated in the [facility] ER. ABG there showed 7.08/80.4/428 on 20, 500, 100%, 5. Labs also showed WBC 12.9, Hgb 10.3, Plts 524, Na 135, K 5.0, CO2 24.7, BUN 68, Cr 12.96, BNP > 35,000, and trop 30. EKG showed sinus tachycardia with hyperacute T waves and otherwise nonspecific ST changes. Chest x-ray demonstrated signs concerning for acute pulmonary edema. Upon arrival to [facility], he is normotensive, normocardic, afebrile, with oxygen saturation of 100% on the ventilator. FiO2 here decreased to 45%. Review of Systems Review of Systems Unobtainable due to endotracheal tube [facility] Medical History (Updated 02/24/25 @ 11:29 by [...] with a PMH of CKD on dialysis (Tues, Thurs, Sat), HTN, HLD, COPD, hypothyroidism, and STEFANIE who [...] warmed when noted to be hypothermic at [facility] emergency department. Patient does follow commands at [...] signed by DO COLIN Kidd> 02/24/25 1221 [facility] Work Phone: 1(158) 526-708905-13-2025 Progress note Author Irwin Theodore [facility] Note Date/Time February 26, 2025 2:57p m [facility] [address] [place] [address] Hospitalist Progress Note Signed Patient: Leander Decker MR#: [id number] : 1970 Acct:[id number] Age/Sex: 54 / M Adm Date: 5 Loc: Room: [address] [place] [address] Type: ADM IN Attending Dr: Irwin Theodore [...] 12.5 Mg Tablet PO 02/25/26 16:59 BID.WITH.MEALS [facility] Clopidogrel Bisulfate 75 mg 02/25/25 09:00 02/25/25 08:34 Clopidogrel Bisulfate 75 Mg Tablet OG-TUBE 02/25/26 08:59 75 mg DAILY [facility] Administration Darbepoetin Garry 25 mcg 02/26/25 10:01 Darbepoetin Garry In Polysorbat 25 Mcg/Ml Vial IV-PUSH 02/26/26 10:00 Th@1000 [facility] Protocol Dextrose 0 gm 02/24/25 12:13 02/25/25 06:27 Dextrose 50% In Water 25 Gm/50 Ml Syringe IV-PUSH 02/24/26 12:12 25 gm PRN PRN Administration Hypoglycemia Gabapentin 300 mg 02/25/25 14:00 Gabapentin 300 Mg Capsule PO 02/25/26 13:59 DAILY [facility] Glucose 0 gm 02/24/25 12:13 Dextrose 40% [...] 50 Mg Tablet PO 02/24/26 20:59 BID [facility] Sodium Chloride 1,000 mls @ 0 mls/hr 02/24/25 10:01 02/24/25 12:18 0.9% Sodium Chloride 1,000 Ml MISCELLANE 02/24/26 10:00 Infused .Q0M PRN Infusion Dialysis As Directed Isosorbide Mononitrate 30 mg 02/26/25 09:00 Isosorbide Mononitrate 24hr Er 30 Mg Tab.Er.24h PO 02/26/26 08:59 DAILY [facility] Levothyroxine Sodium 100 mcg 02/25/25 06:30 02/25/25 [...] By: <Electronically signed by Irwin Theodore MD> 02/25/[address] [place] [address] Work Phone: 1(341) 201-160605-13-2025 [place] [address] Nephrology Consult Note Signed Patient: Leander Decker MR#: [id number] : 1970 Acct:[id number] Age/Sex: 54 / M Adm Date: 5 Loc: Room: [address] [place] [address] Type: ADM IN Attending Dr: Irwin Theodore [...] hemodialysis since February2022 and receives dialysis at [facility] onTTS schedule. Patient presented to [facility] ED earlier today on 02/24/2025 via EMS s/p cardiac arrest. History was obtained from previous HPI from [facility]. He did not miss hemodialysis on Sunday. [...] BNP greater than 35,000. Upon arrival to [facility], the patient is intubated and sedated. Vitals remained somewhat stable. Nephrology consulted for CRRT/hemodialysis management due to persistent volume overloaded state Review of Systems Review of Systems Unobtainable due to endotracheal tube [facility] Medical History (Updated 02/24/25 @ 11:29 by [...] Skin: No rashes , warm to touch CONNECTION WORKER: Intubated and sedated Musculoskeletal: No swelling or [...] sinceMay 2021 and currently receives it at [facility] on TTS schedule. Patient will need CRRT [...] 1034 Signed By: 02/24/25 1246 02/24/25 1115 [facility]05-13-2025 [place] [address] Pulmonology Consult Note Signed Patient: Leander Decker MR#: [id number] : 1970 Acct:[id number] Age/Sex: 54 / M Adm Date: 5 Loc: Room: [address] [place] [address] Type: ADM IN Attending Dr: Irwin Theodore MD Copies to: MD Pablo Mcgarry MD Rebekah M Farris, DO, RES Shantell Zavalaault, COUNSELOR AT LAW-BC~ HPI Date/Time of Consultation: Date of Service: 02/24/2025 Time of Service: 11:49 Consulting Provider: Pablo Valdez Requesting Provider: Irwin Theodore History of Present Illness History of present illness: Mr. Decker is a 54yo male with a PMH of CKD on dialysis (, , Sun), HTN, HLD, COPD, hypothyroidism, and STEFANIE who presents as a transfer from [facility] intubated and sedated and due for dialysis. History is obtained from [facility] chart as well as girlfriend and sister [...] bagged by EMS and intubated in the [facility] ER. ABG there showed 7.08/80.4/428on 20, 500, 100%, 5. Labs also showed WBC 12.9, Hgb 10.3, Plts 524, Na 135, K 5.0, CO2 24.7, BUN 68, Cr 12.96, BNP > 35,000, and trop 30. EKG showed sinus tachycardia with hyperacute T waves and otherwise nonspecific ST changes. Chest x-ray demonstrated signs concerning for acute pulmonary edema. Upon arrival to [facility], he is normotensive, normocardic, afebrile, with oxygen saturation of 100% on the ventilator. FiO2 here decreased to 45%. Review of Systems Review of Systems Unobtainable due to endotracheal tube [facility] Medical History (Updated 02/24/25 @ 11:29 by [...] warmed when noted to be hypothermic at [facility] emergency department. Patient does follow commands at [...] 1149 Signed By: 02/24/25 1226 02/24/25 1221 [facility]05-12-2025 Evaluation note* Diagnosis Onset Date Resolution Status [...] Secondary hyperparathyroidism acute February 24, 2025 10:04am [facility] Work Phone: 1(632) 621-419805-12-2025 Evaluation note* Diagnosis Onset Date Resolution Status [...] February 24, 2025 10:04am Hypertension acute April 13, 2 025 9:37am Hemodialysis access, AV graft acute April 28, 2025 10:37am Hemodialysis access, AV graft acute May 06, 2025 9:59am [facility] Work Phone: 1(193) 506-990905-12-2025 Evaluation note* Diagnosis Onset Date Resolution Status Admit Date End-stage renal disease (ESRD) delet ed February 23, 2025 11:02am Anemia of renal disease chronic M ay 2024 10:04am Benign hypertension with end -stage renal disease chronic February 24, 2025 10:04am Acute on chronic respiratory failure with hypercapnia resolved February 10:04am Acute on chronic respiratory failure with hypoxia and hypercapnia resolved February 24, 2025 10:04am Acute renal failure superimp osed on chronic kidney disease resolved February 242024 10:04am Cardiac arrest resolved February 24, 2025 [...] February 24, 2025 10:04am Hypertension acute April 13, 2 025 9:37am Hemodialysis access, AV graft acute April 28, 2025 10:37am Hemodialysis access, AV graft acute May 06, 2025 9:59am Acute respiratory failure wi th hypoxia and hypercapnia acute May 202024 2:44am ESRD (end stage renal disease) acute May 20, 2025 2:44am Hyperparathyroidism acute Augus t 2024 2:44am Missed dialysis acute May 2:44am Volume overload acute May 2:44am Anemia of renal disease chronic A ugust 2024 2:44am Benign hypertension with end -stage renal disease chronic May 20, 2025 2:44am [facility] Work Phone: 1([phone] 148-461505-05-2025 NoteUT Cardiology - [facility] [place] Subjective Leander Decker is a 54 y.o. year old male patient being seen for 4 moth follow up. Patient states he feel pretty good, sometimes feels pretty beat up from dialysis. Patient denies chest pain, SOB, palpitations, dizziness, abnormal bleeding/bruising. Patient complains of leg swelling. Patient would like to talk to the DrEva About taking Vit-B Patient Active Problem List Diagnosis Cerebrovascular accident (CVA) due to stenosis of left carotid artery (CMS/HCC) Depression GERD (gastroesophageal reflux disease) History of Cuong thyroiditis HTN (hypertension) Bilateral carotid artery stenosis End-stage renal disease needing dialysis (CMS/HCC) Acquired hypothyroidism Tobacco abuse Obesity STEFANIE (obstructive sleep apnea) Hyperlipidemia Heart palpitations History of CHF (congestive heart failure) Vitamin D deficiency Anemia of renal disease Aortoiliac occlusive disease (CMS/HCC) Encounter for pre-operative examination Hypertension Dependence on renal dialysis Smokers' cough (CMS/HCC) Peripheral neuropathy Acute hyperkalemia Acute on chronic respiratory failure with hypoxia and hypercapnia (CMS/HCC) Cellulitis CKD (chronic kidney disease) stage 5, GFR less than 15 ml/min (CMS/HCC) Acute pulmonary edema (CMS/HCC) COPD exacerbation (CMS/HCC) Hypokalemia Hyponatremia Secondary hyperparathyroidism Hypothyroid Hypertensive kidney disease with chronic kidney disease stage V (CMS/HCC) Uremia Preop cardiovascular exam Abnormal cardiovascular stress test Coronary artery disease involving [place] coronary artery of [place] heart without angina pectoris Coronary artery disease with angina pectoris B12 deficiency Lymphadenopathy Lymphadenopathy, axillary Acute hypoxic respiratory failure (CMS/HCC) Acute on chronic diastolic (congestive) heart failure (CMS/HCC) Leukocytosis NSTEMI (non-ST elevated myocardial infarction) ([facility]/HCC) Coagulation defect, unspecified Personal history of transient ischemic attack (TIA), and cerebral infarction without residual deficits Unstable angina ([facility]/HCC) CAD, multiple vessel Multiple vessel coronary artery disease Nicotine dependence, unspecified, uncomplicated Family History Problem Relation Name Age of Onset Emphysema Mother Asthma Mother COPD Mother Heart disease Mother Heart attack Mother Mental illness Mother Heart failure Father age 57 Hypertension Father Mental illness Father Stroke Father No Known Problems Sister No Known Problems Sister No Known Problems Sister No Known Problems Sister Suicidality Sister age 36 Hypertension Brother Mental illness Brother No Known Problems Daughter Heart disease Maternal Grandmother Cardiac pacemaker in situ Social History Tobacco Use Smoking status: Former Current packs/day: 1.00 Average packs/day: 1 pack/day for 35.0 years (35.0 ttl pk-yrs) Types: Cigarettes Smokeless tobacco: Never Vaping Use Vaping status: Never Used Substance Use Topics Alcohol use: Not Currently Drug use: Never HPI Leander Decker is seen in follow up. I had seen him in the past on 11/30/2023 for a cardiac evaluation for possible renal transplant, referred by Dr. Velazquez. He was following with Dr Church for cardiology care. He is a 54 year old male with ESRD secondary to Hypertension. He initially began dialysis on 03/12/2021 when he had episode of DANIEL likely secondary to sepsis with reduced p.o. intake and NSAID use. His renal function showed partial recovery and he was able to stop dialysis after 4 months (May 2021). He then returned to chronic dialysis in 12/2021 and currently dialyzes 3 days per week via LLE AV graft. Past medical history is significant for HTN (35 years, controlled with medications), CHF, palpitations, CVA (left MCA due to left carotid stenosis, 06/28/2021), bilateral carotid stenosis s/p left carotid endarterectomy (07/22/2021), hyperlipidemia, PAOD, Aortoiliac Atherosclerosis (s/p aortobifem bypass 06/20/2023) Cuong thyroiditis with hypothyroidism, GERD with esophagitis, longstanding h/o tobacco abuse, depression/anxiety obesity, STEFANIE (on biPAP), h/o community acquired pneumonia, normocytic anemia, and vitamin D deficiency. The patient does have any history of DVT/PE/clotting events. In November 2023 he underwent a dobutamine stress echocardiogram as part of workup for possible kidney transplant. He was noted to have reduced EF and high-dose dobutamine. Cardiac catheterization showed severe CAD. He was referred for cardiothoracic surgery consideration of bypass. This was delayed due to concerns of malignancy and subsequent effort to obtain biopsies. He then underwent percutaneous intervention to the left main on 09/22/2024. At last visit of 10/24/2024 with cardiology the plan was to continue medical therapy and treat the right coronary artery stenosis (more content not included)...[facility]04-24-2025 Evaluation note* Diagnosis Onset Date Resolution Status [...] hyperparathyroidism resolv ed February 24, 2025 10:04am [facility] Work Phone: 1(921) 923-252604-24-2025 Evaluation note* Diagnosis Onset Date Resolution Status [...] February 24, 2025 10:04am Hypertension acute April 13, 2 025 9:37am [facility] Work Phone: 1(323) 186-998104-24-2025 Evaluation note* Diagnosis Onset Date Resolution Status [...] February 24, 2025 10:04am Hypertension acute April 13, 2 025 9:37am Hemodialysis access, AV graft acute April 28, 2025 10:37am [facility] Work Phone: 1([phone]) 174-541404-22-2025 History of Present illness Narrative* Tracie Sanches, KARYNA - 02/03/2025 11:25 AM EDT Images from the original note were not included. [address] , [address] [facility], [address] P: [phone] F: [phone] HPI Historian of [facility]: patient Leander Decker is a 54 y.o. [...] and pt verb understanding. documented in this encounterSaint John's Health [id number] NoteUT Cardiology Clinic Note Subjective Leander Decker is a 54 y.o. year old male patient being seen for follow up PCI LAD performed 09/22/2024. He states that he feels the bets he has felt in a long time. No chest pain. No shortness of breath. No edema, orthopnea, or PND. Says he hasn't felt palpitations since intervention. He is tolerating his medications without issue. Patient Active Problem List Diagnosis Cerebrovascular accident (CVA) due to stenosis of left carotid artery (CMS/HCC) Depression GERD (gastroesophageal reflux disease) History of [place] thyroiditis HTN (hypertension) Bilateral carotid artery stenosis End-stage renal disease needing dialysis (CMS/HCC) Acquired hypothyroidism Tobacco abuse Obesity STEFANIE (obstructive sleep apnea) Hyperlipidemia Heart palpitations History of CHF (congestive heart failure) Vitamin D deficiency Anemia of renal disease Aortoiliac occlusive disease ([facility]) Encounter for pre-operative examination Hypertension Dependence on renal dialysis ([facility]) Smokers' cough ([facility]) Peripheral neuropathy Acute hyperkalemia Acute on chronic respiratory failure with hypoxia and hypercapnia ([facility]) Cellulitis CKD (chronic kidney disease) stage 5, GFR less than 15 ml/min ([facility]) Acute pulmonary edema ([facility]) COPD exacerbation ([facility]) Hypokalemia Hyponatremia Secondary hyperparathyroidism ([facility]) Hypothyroid Hypertensive kidney disease with chronic kidney disease stage V ([facility]) Uremia Preop cardiovascular exam Abnormal cardiovascular stress test Coronary artery disease involving [place] coronary artery of [place] heart without angina pectoris Coronary artery disease with angina pectoris ([facility]) B12 deficiency Lymphadenopathy Lymphadenopathy, axillary Acute hypoxic respiratory failure ([facility]) Acute on chronic diastolic (congestive) heart failure ([facility]) Leukocytosis NSTEMI (non-ST elevated myocardial infarction) ([facility]) Coagulation defect, unspecified ([facility]) Personal history of transient ischemic attack (TIA), and cerebral infarction without residual deficits Unstable angina ([facility]) CAD, multiple vessel Multiple vessel coronary artery disease Family History Problem Relation Name Age of Onset Emphysema Mother Asthma Mother COPD Mother Heart disease Mother Heart attack Mother Mental illness Mother Heart failure Father age 57 Hypertension Father Mental illness Father Stroke Father No Known Problems Sister No Known Problems Sister No Known Problems Sister No Known Problems Sister Suicidality Sister age 36 Hypertension Brother Mental illness Brother No Known Problems Daughter Heart disease Maternal Grandmother Cardiac pacemaker in situ Social History Tobacco Use Smoking status: Every Day Current packs/day: 1.00 Average packs/day: 1 pack/day for 35.0 years (35.0 ttl pk-yrs) Types: Cigarettes Smokeless tobacco: Never Vaping Use Vaping status: Never Used Substance Use Topics Alcohol use: Not Currently Drug use: Never HPI He is a 53 year old male with ESRD secondary to Hypertension, HTN, CHF, CVA (left MCA due to left carotid stenosis, 06/28/2021), bilateral carotid stenosis s/p left carotid endarterectomy (07/22/2021), hyperlipidemia, PAD, Aortoiliac Atherosclerosis (s/p aortobifem bypass 06/20/2023), longstanding h/o tobacco abuse, and severe [place] 3 V CAD. In November 2023, patient underwent dobutamine stress echo as part of a nephrology transplant evaluation. On that echo, patient was noted to have reduced EF at high dose dobutamine levels, concerning for significant CAD/LM/3V disease. Subsequently, patient underwent cardiac catheterization which demonstrated severe three-vessel CAD. Was referred to CT surgery for CABG evaluation. This has been delayed due to concern for malignancy and subsequent effort to obtain biopsies. Patient presents today for follow up. Patient adamantly denies any cardiac complaints or concerns. Patient denies any chest pain or shortness of breath. Patient denies any lower extremity edema, orthopnea, or proximal nocturnal dyspnea. No near-syncope or syncope. No dizziness or lightheadedness. He is taking his meds as prescribed. He has not smoked for 2 weeks. Cardiology ROS: Review of Systems HENT: Negative. Eyes: Negative. Cardiovascular: Positive for leg swelling. Hematologic/Lymphatic: Bruises/bleeds easily. All other systems reviewed and are negative. 09/23/2024 4:25 AM 09/23/2024 5:00 AM 09/23/2024 7:18 AM 09/23/2024 7:23 AM 09/23/2024 7:35 AM 09/23/2024 11:11 AM 09/23/2024 1:43 PM Vitals Systolic 152 178 115 Diastolic 83 93 68 Heart Rate 92 91 80 82 80 Temp 36.8 ???C (98.2 ???F) 36.3 ???C (97.3 ???F) 36.2 ???C (97.2 ???F) 36.2 ???C (97.2 ???F) Resp 12 19 20 Weight (lb) 191 BMI 26.64 kg/m2 BSA (m2) 2.08 m2 Physical Exam Constitutional: Appear (more content not included)...[facility] 09-23-2024 NoteRN went over AVS with patient-no questions at this time. Papers signed and patient wheeled to main lobby with belongings and assisted to daughter's car. [facility]12-10-2024 Note3.5 hr tx, 3.2kg off, 3000 epo given, pt tolerated well, 2k bathProMedica Flower Hospital12-09-2024 NotePatient: Leander Decker Procedure Information Date/Time: 09/22/24 0830 Procedures: Impella insertion Percutaneous coronary intervention LAD,RCA, Impella - with Dr. Mickey Dowling - please confirm date with both physicians before scheduling Coronary angiography (Left) Location: [facility] / [facility] ([facility]) Providers: Andrew Church MD Clinical information reviewed: Allergies Meds Physical Exam Airway Mallampati: II TM distance: <3 FB Cardiovascular Rhythm: regular Rate: normal Dental Pulmonary Abdominal Anesthesia Plan ASA 3 other (Conscious ) Anesthetic plan and risks discussed with patient. Use of blood products discussed with patient who consented to blood products. Plan discussed with attending. Additional Equipment RequestsProMedica [facility]11-07-2024 History of Present illness Narrative* Allison [...] contacted on further scheduling. documented in this encounterSaint John's Health [id number] NoteUT Cardiology Clinic Note Subjective Leander Decker is a 53 y.o. year old male patient being seen for follow up and for follow up. Patient Active Problem List Diagnosis Cerebrovascular accident (CVA) due to stenosis of left carotid artery ([facility]) Depression GERD (gastroesophageal reflux disease) History of [place] thyroiditis HTN (hypertension) Bilateral carotid artery stenosis End-stage renal disease needing dialysis ([facility]) Acquired hypothyroidism Tobacco abuse Obesity STEFANIE (obstructive sleep apnea) Hyperlipidemia Heart palpitations History of CHF (congestive heart failure) Vitamin D deficiency Anemia of renal disease Aortoiliac occlusive disease ([facility]) Encounter for pre-operative examination Hypertension Dependence on renal dialysis ([facility]/HCC) Smokers' cough ([facility]) Peripheral neuropathy Acute hyperkalemia Acute on chronic respiratory failure with hypoxia and hypercapnia ([facility]/HCC) Cellulitis CKD (chronic kidney disease) stage 5, GFR less than 15 ml/min ([facility]/HCC) Acute pulmonary edema ([facility]/HCC) COPD exacerbation ([facility]/HCC) Hypokalemia Hyponatremia Secondary hyperparathyroidism ([facility]/HCC) Hypothyroid Hypertensive kidney disease with chronic kidney disease stage V ([facility]/HCC) Uremia Preop cardiovascular exam Abnormal cardiovascular stress test Coronary artery disease involving [place] coronary artery of [place] heart without angina pectoris Coronary artery disease with angina pectoris (CMS/HCC) B12 deficiency Lymphadenopathy Lymphadenopathy, axillary Acute hypoxic respiratory failure (CMS/HCC) Acute on chronic diastolic (congestive) heart failure (CMS/HCC) Leukocytosis NSTEMI (non-ST elevated myocardial infarction) (CMS/HCC) Family History Problem Relation Name Age of Onset Emphysema Mother Asthma Mother COPD Mother Heart disease Mother Heart attack Mother Mental illness Mother Heart failure Father age 57 Hypertension Father Mental illness Father Stroke Father No Known Problems Sister No Known Problems Sister No Known Problems Sister No Known Problems Sister Suicidality Sister age 36 Hypertension Brother Mental illness Brother No Known Problems Daughter Heart disease Maternal Grandmother Cardiac pacemaker in situ Social History Tobacco Use Smoking status: Every Day Packs/day: 1.00 Years: 35.00 Additional pack years: 0.00 Total pack years: 35.00 Types: Cigarettes Smokeless tobacco: Never Vaping Use Vaping Use: Never used Substance Use Topics Alcohol use: Not Currently Drug use: Never HPI He is a 53 year old male with ESRD secondary to Hypertension, HTN, CHF, CVA (left MCA due to left carotid stenosis, 06/28/2021), bilateral carotid stenosis s/p left carotid endarterectomy (07/22/2021), hyperlipidemia, PAD, Aortoiliac Atherosclerosis (s/p aortobifem bypass 06/20/2023), longstanding h/o tobacco abuse, and severe [place] 3 V CAD. In November 2023, patient underwent dobutamine stress echo as part of a nephrology transplant evaluation. On that echo, patient was noted to have reduced EF at high dose dobutamine levels, concerning for significant CAD/LM/3V disease. Subsequently, patient underwent cardiac catheterization which demonstrated severe three-vessel CAD. Was referred to CT surgery for CABG evaluation. This has been delayed due to concern for malignancy and subsequent effort to obtain biopsies. Patient presents today for follow up. Patient adamantly denies any cardiac complaints or concerns. Patient denies any chest pain or shortness of breath. Patient denies any lower extremity edema, orthopnea, or proximal nocturnal dyspnea. No near-syncope or syncope. No dizziness or lightheadedness. He is taking his meds as prescribed. He has not smoked for 2 weeks. Cardiology ROS: 10 point ROS is performed and is negative unless otherwise specified in HPI. 05/31/2024 1:00 PM 05/31/2024 2:00 PM 05/31/2024 3:00 PM 06/04/2024 11:13 AM 07/14/2024 10:24 AM 07/18/2024 9:14 AM 08/08/2024 3:13 PM Vitals Systolic 142 116 159 150 108 118 Diastolic 77 66 86 83 62 80 Heart Rate 103 90 79 75 79 83 82 Temp 36.8 ???C (98.2 ???F) Resp 13 16 Height (in) 1.803 m (5' 11 ) 1.803 m (5' 11 ) 1.803 m (5' 11 ) 1.803 m (5' 11 ) Weight (lb) 191 198 192.8 191 BMI 26.64 kg/m2 27.62 kg/m2 26.89 kg/m2 26.64 kg/m2 BSA (m2) 2.08 m2 2.12 m2 2.09 m2 2.08 m2 Visit Report Report Report Report Physical Exam Constitutional: Appearance: He is well-developed. He is not ill-appearing. HENT: Head: Normocephalic and atraumatic. Nose: Nose normal. Eyes: General: No scleral icterus. Pupils: Pupils are equal, round, and reactive to light. Neck: Thyroid: No thyromegaly. Vascular: No JVD. Cardiovascular: Rate and Rhythm: Normal rate and regular rhythm. Pulses: Radial pulses are 2+ on the right side and 2+ on the left side. Heart sounds: Normal heart sounds. No mur (more content not included)... [facility]10-04-2024 NoteSubjective Patient ID: Leander Decker is a 53 y.o. male who presents for Follow-up (Leander here today for follow up visit: Discuss LYMPH NODE Bx ). HPI Patient presents today for follow-up on lymphadenopathy. Patient recently underwent biopsy of right inguinal lymph node for concern of lymphadenopathy. Patient's oncologist reached out after result of the lymph node biopsy being inconclusive. She is concerned that patient may continue to have undiagnosed lymphatic disorder versus malignancy additional biopsy. Patient reports no fevers, chills, night sweats, no fatigue. He does not get short of breath and feels physically strong. Patient feels frustrated with delaying his heart intervention. Review of Systems Constitutional: Negative. HENT: Negative. Respiratory: Negative. Cardiovascular: Negative. Gastrointestinal: Negative. Endocrine: Negative. Musculoskeletal: Negative. Neurological: Negative. Hematological: Negative. Objective Visit Vitals BP 108/62 (BP Location: Right arm, Patient Position: Sitting) Pulse 83 Temp 36.8 ???C (98.2 ???F) (Oral) Physical Exam General appearance: Appears stated age, normal body habitus Integument: Right axilla, chest thoroughly palpated, no palpable lymph node at the described location by PET/CT. Additional bedside ultrasound was performed as an attempt to identify this lymph node, unable to visualize on ultrasound. No overlying skin changes Assessment/Plan Diagnoses and all orders for this visit: Lymphadenopathy, axillary Patient presents for follow-up regarding lymphadenopathy. Unfortunately last biopsy from the right inguinal lymph node was inconclusive. Patient presents by recommendation of his oncologist for evaluation of right axillary lymph node biopsy as prior PET CT image have demonstrated suspicious lymph node at this location. On physical exam and ultrasound exam I was not able to visualize this lymph node at bedside. Ordered official left breast ultrasound Limited with focus on left axilla lymph node to correlate with PET/CT imaging. If ultrasound exam can identify the lymph node biopsy may be feasible with wire guidance. Patient does not currently have any systemic symptoms of lymphatic malignancy. Patient would like to proceed with his cardiac intervention for triple-vessel coronary artery disease. Case was discussed with Dr. Washington from oncology, agreed that patient may proceed with his cardiac catheterization and intervention, patient may proceed with dual antiplatelet therapy. We will complete the ultrasound of axilla on the nonurgent basis and follow-up with patient in the future for potential biopsy after heart recovery. Total 55 min spent chart review, conducting patient interview and physical exam, discussing plan with patient, communication with oncology and cardiology. No diagnosis found. No orders of the defined types were placed in this encounter. No results found for this or any previous visit (from the past 36 hour(s)). No follow-ups on file.[facility]09-30-2024 Note Attestation signed by Rashmi Washington MD at 07/17/2024 3:19 PM By using the attestations below, the signing clinician agrees that I have read and verify that the documentation has been personally reviewed by me and ensure that the documentation accurately reflects the encounter. As noted by Dr Ilan MARTELL: I personally saw this patient on the day of the encounter, performed the bridges portion(s) of the service and participated in the management and confirm the resident's documentation. Please note there may be an additional personal documentation from me. Additional Comments: 1. Lymphadenopathy 2. Anemia of renal disease 3. Coronary artery disease involving [place] coronary artery of [place] heart without angina pectoris 4. End-stage renal disease needing dialysis (CMS/HCC) 5. Aortoiliac occlusive disease (CMS/HCC) 6. S/P carotid endarterectomy Had an extensive conversation patient and his Patient had a SPECT scan in December 2023 which revealed lymphadenopathy . Patient has undue delays for his biopsy multifactorial reasons He has blocked arteries and needed a bypass and discussed with CT surgeons would not delay for lymphoma workup heart comes first Patient did not want to move forward with CT surgery He currently is in the hands of the sustainability consultant but awaiting decision on the lymph node biopsy that he just had his he will be going on doublet antiplatelet agent I personally discussed with the Dr. DE SOUZA I do lymph node biopsy to be the left axillary and patient is going to be seen by him on Sunday for consideration of biopsy I personally discussed with our cardiology colleagues as well on our plan workup and this can run paral elyand cardiac procedure would take priority and with delays in biopsy we would treat heart and address the biopsy when we have it. Dr De Souza was gracious to get patient in Sunday for eval of the biopsy of the left axillary lymph node Discussed with patient in detail who currently is asymptomatic Rashmi Washington MD HEMATOLOGY and MEDICAL ONCOLOGY Dr. Lor Guzman MD / MD Ning Jensen AOCNP / Fang Crystal CNP / Angela Gonzales APRN-JANE Patient Name: Leander Decker Date of : 1970 Encounter Date: 07/14/2024 Patient Care Team: KISHOR Jay as PCP - General Adrian Dennis MD as Consulting Physician (Urology) Andrew Church MD (Cardiology) Rashmi Washington MD as Consulting Physician (Hematology and Oncology) Fang Crystal NP as Nurse Practitioner (Hematology and Oncology) Angela Philip NP as Consulting Physician (Hematology and Oncology) IMPRESSION and ASSESSMENT: Leander Decker is a 53 y.o. male with: Cancer Staging No matching staging information was found for the patient. Diagnoses and all orders for this visit: Lymphadenopathy Anemia of renal disease Coronary artery disease involving [place] coronary artery of [place] heart without angina pectoris End-stage renal disease needing dialysis (CMS/HCC) Aortoiliac occlusive disease (CMS/HCC) S/P carotid endarterectomy RECOMMENDATIONS and PLAN: Recommended that we perform left axillary L node excisional biopsy as it is the most PET avid node on FDG PET scan performed 12/2023. Also re iterated that so far the core needle biopsy from the left groin node in 01/2024 and excisional biopsy of the right groin L node in 05/2024 has been non conclusive and although we cannot rule out the possibility of the low grade lymphoma completely. But it is also important to address his CAD which requires PCI and delays in cardiac care will be more detrimental to his health than a delayed diagnosis of the possible low grade lymphoma. We discussed the case with his sustainability consultant and relayed our thoughts that at this time patient's cardiac health should take priority as L N biopsies has been unremarkable (although sub optimal nodes were evaluated). Following PCI we may not be able to perform excisional biopsy for atleast 6 months when patient is on dual antiplatelets but patient is agreeable to accept the risk of potential undiagnosed pathology involving Lymph nodes for the time period. Meanwhile, we will reach Dr De Souza again to see if we can expedite the left axillary L node biopsy before PCI for CAD is performed by cardiology. -Return to clinic in 2 months Ilan Castañeda MD PGY 6 hematology and oncology fellow SUBJECTIVE: Interval History: 07/14/2024 Leander Decker is a 53 y.o. male referred for evaluation of lymphadenopathy before cardiac intervention as planned by his sustainability consultant. Initially he was seen for an abnormal dobutamine stress test performed as a part of evaluation before renal transplant. Stres test showed global hypokinesia with (more content not included)...[facility]09-13-2024 NoteTC spoke to patient who confirmed that he is still smoking occasionally on bad days if he is stressed, but he is really trying to quit. He also has a cardiac cath with stenting that he is hoping will happen this month. TC advised that he should be deferred until he has had his cardiac cath (will be on hold for 6 months if stented) and should call TC once his wait time is complete and he has quit smoking. If he can complete a negative nicotine screen at that time he will be re-evaluated. TC advised that he can work on colonoscopy, dental and any other work up requirements over the next [address] are ready if he is cleared to come back in 6-7 months. TC provided phone number for patient to call back and provide update at that time and evaluate if he is ready to come back. Patient thanked TC and stated understanding. Letter sent to patient referring MD and dialysis unit.[facility]07-14-2024 History of Present illness Narrative* Chago [...] as an outpatient 4. 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 [facility] Discharge summary Author Jersey Sharp [facility] January 09, 2024 10:30am Note Date/Time January 09, 2024 10: 27am [facility] [address] [place] [address] Discharge Summary Signed Patient: Leander Decker MR#: [id number] : 1970 Acct:[id number] Age/Sex: 53 / M Adm Date: 4 Loc: Room: [address] [place] [address]: Jersey Sharp MD Copies to: MD Shantell Omalley [facility]~ Providers Date of Discharge: 01/09/24 Discharging Provider: Jersey Sharp Primary Care Provider: Shantell Osei Consults: 01/08/24 21:06 Consult to Sleep Lab Routine Comment: Physician Instructions: 01/08/24 22:14 Consult to Pulmonology Routine Comment: Consulting Provider: SASCHA Benavides Pulyovani, CC & Sleep Med Reason For Exam: [...] dialysis yesterday due to an appointment in [place]. He came with shortness of breath. He [...] ask her primary care doctor to obtain [facility] record entirely to address abnormalities seen on [...] % (Auto) 81.4, Lymph % (Auto) 7.2, [place] % (Auto) 5.4, Eos % (Auto) 4.9, Baso % (Auto) 1.1, Nucleat RBC Rel Count 0.2, Neut # (Auto) 9.2 H, Lymph # (Auto) 0.8 L, [place] # (Auto) 0.6, Eos # (Auto) 0.6 [...] % (Auto) 91.7, Lymph % (Auto) 2.6, [place] % (Auto) 3.2, Eos % (Auto) 2.4, Baso % (Auto) 0.1, Nucleat RBC Rel Count 0.0, Neut # (Auto) 16.2 H, Lymph # (Auto) 0.5 L, [place] # (Auto) 0.6, Eos # (Auto) 0.4, [...] ask your primary care provider to obtain [facility] records entirely to follow up on all of the abnormal physical, laboratory, and imaging findings that I have not addressed. Please return back to the emergency room or seek medical attention if your symptoms worsen or return. Discharging you from [facility] does not mean that your medical care [...] signed by Jersey Sharp MD> 01/09/24 1030 [facility] Work Phone: 1(386) 574-683603-27-2024 History and physical note Author Percy Herrera [facility] January 08, 2024 10:52pm Note Date/Time January 08, 2024 10: 52pm [facility] [address] [place] [address] Hospitalist H&P Signed Patient: Leander Decker MR#: [id number] : 1970 Acct:[id number] Age/Sex: 53 / M Adm Date: 4 Loc: Room: [address] [place] [address] Type: ADM IN Attending Dr: Jose Luis Musa MD Copies to: MD Jose Luis Bernal MD Stephanie Breault, [facility]~ [facility] DATE OF EXAMINATION: 01/08/24 CHIEF COMPLAINT: dyspnea HISTORY OF PRESENT ILLNESS: 53 year old man with history of ESRD on HD TTS, HTN, DLD, hypothyroidism, PVD, and COPD on nocturnal bipap who presented to [facility] ED complaining of acute onset of dyspnea earlier on the date of presentation Per the patient he last had a dialysis treatment on Thursday 01/04. He was to have an appointment with a physician this afternoon, and had moved his dialysis treatment to sunday to accommodate this. around 1 pm, however, the patient developed acute respiratory distress and was brought to [facility] ED for evaluation- vital signs on arrival [...] and no additional complaints, except as documented [facility] Medical History Arteriovenous fistula of left upper [...] <Electronically signed by Percy Herrera MD> 01/08/24 2257 [facility] Work Phone: 1(349) 156-325801-31-2024 Evaluation note* Encounter Date Diagnosis Assessment Notes [...] podiatry would be bst to manage this. [facility] Other 08-01-2023 Evaluation note* Encounter Date Diagnosis Assessment Notes Treatment Notes Treatment Clinical Notes May, Dyshidrotic eczema (ICD-10 - L30.1) Discussed with patient exam is consistent with dyshidrotic eczema. Discussed exact cause of flare is not known but could be related to chemical exposure. 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 Discussed use of emollient [...] Other Eczema (atopic dermatitis) material was printed [facility] Other 02-16-2023 Evaluation note* Encounter Date Diagnosis Assessment Notes Treatment Notes Treatment Clinical Notes Nov, Sebaceous cyst (ICD-10 - L72.3) Referral put in as discussed. Nov, Colon cancer screening (ICD-10 - Z12.11) Referral for Gastro put in as discussed. [facility] Other 12-14-2022 Evaluation note* Encounter Date Diagnosis [...] should resolve over the next few months. [facility] Other 11-30-2022 Evaluation note* Encounter Date Diagnosis [...] IV antibiotic therapy as given by his landscape horticulture instructor. The cellulitis is improved overall. He continues [...] left CEA about 8 months ago in [place]. There is slight elevation in peak systolic [...] agrees with this plan, denies any questions. [facility] Other 10-18-2022 Evaluation note* Encounter Date Diagnosis [...] be aware the nature of the procedure. [facility] Other 09-27-2022 [facility]* Encounter Date Diagnosis Assessment [...] will schedule this in the near future. [facility] Other 09-15-2022 Evaluation note* Encounter Date Diagnosis Assessment Notes Treatment Notes Treatment Clinical Notes Jun, Preop testing (ICD-10 - Z01.818) [facility] Other 08-24-2022 Evaluation note* Encounter Date Diagnosis [...] Hypotension, unspecified hypotension type (ICD-10 - I95.9) [facility] Other 08-23-2022 Evaluation note* Encounter Date Diagnosis Assessment Notes Treatment Notes Treatment Clinical Notes May, DDD (degenerative disc disease), cervical (ICD-10 - M50.30) [facility] Other 08-11-2022 Evaluation note* Encounter Date Diagnosis Assessment Notes Treatment Notes Treatment Clinical Notes May, DDD (degenerative disc disease), cervical (ICD-10 - M50.30) [facility] Other 07-18-2022 Evaluation note* Encounter Date Diagnosis Assessment Notes Treatment Notes Treatment Clinical Notes Apr, DDD (degenerative disc disease), cervical (ICD-10 - M50.30) [facility] Other 05-26-2022 Evaluation note* Encounter Date Diagnosis Assessment Notes Treatment Notes Treatment Clinical Notes February, Asymptomatic stenosis of left carotid artery (ICD-10 - I65.22) I did review the patient's carotid duplex with him today. This is a postop surveillance study which revealed that there was no stenoses at this time. Everything looks good from the repair done in [place]. We will need to repeat that study [...] right-handed. We will plan this is a [facility] local outpatient case in the next few [...] and is able to chew and swallow. [facility] Other 05-26-2022 Evaluation note* Encounter Date Diagnosis Assessment Notes Treatment Notes Treatment Clinical Notes February, Pre-op testing (ICD-10 - Z01.818) [facility] Other 05-12-2022 Evaluation note* Encounter Date Diagnosis Assessment Notes Treatment Notes Treatment Clinical Notes February, Primary insomnia (ICD-10 - F51.01) May start with half tablet for first 2 weeks then increase to 1 tablet at bedtime [facility] Other 04-26-2022 Evaluation note* Encounter Date Diagnosis Assessment Notes Treatment Notes Treatment Clinical Notes Jan, Aidna hy kid w cr kid I-IV (ICD-10 [...] the patient to follow a low-salt diet [facility] Other 03-23-2022 Evaluation note* Encounter Date Diagnosis [...] he is due from his procedure in [place]. [facility] Other 03-23-2022 Evaluation note* Encounter Date Diagnosis Assessment Notes Treatment Notes Treatment Clinical Notes Dec, Pre-op testing (ICD-10 - Z01.818) [facility] Other 03-14-2022 Evaluation note* Encounter Date Diagnosis Assessment Notes Treatment Notes Treatment Clinical Notes Dec, CKD (chronic kidney disease) stage 4, GFR 15-29 ml/min (ICD-10 - N18.4) [facility] Other 03-07-2022 Evaluation note* Encounter Date Diagnosis Assessment Notes Treatment Notes Treatment Clinical Notes Dec, CKD (chronic kidney disease) stage 4, GFR 15-29 ml/min (ICD-10 - N18.4) [facility] Other 03-03-2022 Evaluation note* Encounter Date Diagnosis [...] with the importance of different 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 He [...] have advised him to adequately hydrate himself. [facility] Other 02-14-2022 Evaluation note* Encounter Date Diagnosis Assessment Notes Treatment Notes Treatment Clinical Notes Nov, Chronic kidney disease, stage III (moderate) (ICD-10 - N18.30) Nov, Aidan narendra martinez w cr kid I-IV (ICD-10 - I12.9) Nov, Nephrolithiasis (ICD-10 - N20.0) Nov, Anemia of renal disease (ICD-10 - D63.1) [facility] Other 02-14-2022 Evaluation note* Encounter Date Diagnosis Assessment Notes Treatment Notes Treatment Clinical Notes Nov, CKD (chronic kidney disease) stage 4, GFR 15-29 ml/min (ICD-10 - N18.4) Nov, Essential hypertension (ICD-10 - I10) Nov, Aidan martinez w cr kid I-IV (ICD-10 - I12.9) [facility] Other 02-12-2022 Evaluation note* Encounter Date Diagnosis Assessment Notes Treatment Notes Treatment Clinical Notes Nov, Chronic kidney disease, stage 3a (ICD-10 - N18.31) Nov, Bilateral leg edema (ICD-10 - R60.0) [facility] Other 01-19-2022 Evaluation note* Encounter Date Diagnosis Assessment Notes Treatment Notes Treatment Clinical Notes Oct, CKD (chronic kidney disease) stage 4, GFR 15-29 ml/min (ICD-10 - N18.4) [facility] Other 12-02-2021 Evaluation note* Encounter Date Diagnosis [...] have advised him to adequately hydrate himself. [facility] Other 11-04-2021 Evaluation note* Encounter Date Diagnosis [...] have advised him to adequately hydrate himself. [facility] Other 11-01-2021 Evaluation note* Encounter Date Diagnosis Assessment Notes Treatment Notes Treatment Clinical Notes Aug, Chronic kidney disease, stage III (moderate) (ICD-10 - N18.30) [facility] Other 10-25-2021 Evaluation note* Encounter Date Diagnosis Assessment Notes Treatment Notes Treatment Clinical Notes Jul, CKD (chronic kidney disease) stage 4, GFR 15-29 ml/min (ICD-10 - N18.4) [facility] Other 10-15-2021 NoteMR#: [id number] [facility] Pt. Name: Leander Decker Admitted: 07/22/2021 [...] P/Shivani Coffey PA-C Date Trans: 07/29/2021 07:54 A/mmo [id number] [facility]10-14-2021 Evaluation note* Encounter Date Diagnosis Assessment Notes Treatment Notes Treatment Clinical Notes Jul, Cerebrovascular accident (CVA) due to other mechanism (ICD-10 - I63.89) Jul, Essential (primary) hypertension (ICD-10 - I10) Continue current medication and keep Dr Mayo informed about blood pressures and ordered. Jul, Autoimmune thyroidit is (ICD-10 - E06.3) Jul, DDD (degenerative di sc disease), cervical (ICD-10 - M50.30) [facility] Other 10-07-2021 Evaluation note* Encounter Date Diagnosis [...] have advised him to adequately hydrate himself. [facility] Other 09-01-2021 History of Present illness Narrative* [...] upcoming CEA surgery and being under anesthesia. [id number] 320 Work Phone: chitx complaint Narrative - Reported* The patient presents to the office today for an initial evaluation. * Recent stroke [id number] 320 Work Phone: consult note Author [facility] January 09, 2024 11:25am Note Date/Time January 09, 2024 11: 25am [facility] [address] [place] [address] Nephrology Consult Note Signed Patient: Leander Decker MR#: [id number] : 1970 Acct:[id number] Age/Sex: 53 / M Adm Date: 4 Loc: Room: 9H6945-0 Type: ADM IN Attending Dr: Jersey Sharp [...] February 2022. Patient currently gets dialysis at [facility] on TTS schedule. Last hemodialysis was on Thursday 01/04 and he was supposed to have dialysis yesterday however he has an appointment with the physician and he moved his dialysis to the following day Sunday morning. Apparently, patient developed significant shortness of breath and he presented to [facility] ED for evaluation. He was found to be hypoxemic with pulse ox 72% on 5 L oxygen and he was immediately started on BiPAP. Chest x-ray showed bilateral perihilar opacities with pulmonary edema. Potassium was elevated 6.5 mEq/L. Patient had urgent treatment for hyperkalemia and he was transferred to [facility] for urgent dialysis. On arrival, repeat [...] negative unless noted below or in HPI [facility] Medical History Arteriovenous fistula of left upper [...] 100 Mcg Tablet) 100 mcg PO DAILY@0630 [facility] Stop: 01/08/25 06:29 Last Admin: 01/09/24 05:29 Dose: 100 mcg Minoxidil (Minoxidil 2.5 Mg Tablet) 10 mg PO BID [facility] Stop: 01/07/25 23:29 Last Admin: 01/09/24 08:29 [...] since February 2022 currently gets dialysis at [facility] on TTS schedule. Patient rescheduled on hemodialysis [...] <Electronically signed by MD Toby Venegas> 01/09/24 1126 [facility] Work Phone: Discharge summary Author Irwin Theodore [facility] Note Date/Time February 26, 2025 2:55p m [facility] [address] [place] [address] Discharge Summary Signed Patient: Leander Decker MR#: [id number] : 1970 Acct:[id number] Age/Sex: 54 / M Adm Date: 5 Loc: Room: [address] [place] [address]: Irwin Theodore MD Copies to: MD Shantell Mcgarry, [facility]~ Providers Date of Discharge: 02/26/25 Discharging Provider: Irwin Theodore Primary Care Provider: Shantell Osei Consults: 02/24/25 10:51 Consult to Nephrology Routine Comment: Consulting Provider: SASCHA - Nephrology Has Provider Been Notified: Yes Date of Notification: 02/24/25 Time of Notification: 11:11 Reason for Consult: Dialysis Treatment Consult to Pulmonology Routine Comment: Consulting Provider: SASCHA - Pulmon, CC & Sleep Med Reason For Exam: vent [...] Course Hospital course: Patient is a pleasant 27-qnkq-mvt--year-old male hemodialysis, who felt very thirsty and [...] PO DAILY Qty: 30 2RF Follow Up: [facility] [Outside] (Their office is currently unavailable. Please [...] 2.21 Documented By: Irwin Theodore MD 02/26/25 1444 Signed By: <Electronically signed by Irwin Theodore MD> 02/26/25 1455 [facility] Work Phone: Evaluation noteNo Assessments Information Available [facility]tr[facility] noteNo InformationNort [employer] Other Evaluation noteNo assessment information available [facility] Work Phone: Evaluation note* Diagnosis Onset Date Resolution Status Cellulitis acute End-stage renal disease needing dialysis acute Hyperlipidemia acute Hypertension acute Hypertensive kidney disease with chronic kidney disease stage V acute Hypothyroid acute Secondary hyperparathyroidism acute [facility] Work Phone: Evaluation note* Diagnosis Onset Date Resolution Status Acute and chronic respiratory failure with hypoxia acute Acute hyperkalemia acute Acute pulmonary edema acute Anemia of renal disease acut e End-stage renal disease needing dialysis acute Hyperkalemia acute Hypertensive kidney disease with chronic kidney disease stage V acute Leukocytosis acute [facility] Work Phone: Evaluation note* Diagnosis Onset Date Resolution Status Acute and chronic respiratory failure with hypoxia acute Acute hyperkalemia acute Acute pulmonary edema acute Anemia of renal disease acut e End-stage renal disease needing dialysis acute Hyperkalemia acute Hypertensive kidney disease with chronic kidney disease stage V acute [facility] Work Phone: Evaluation note* Diagnosis Psoriasis plantaris (CMS/HCC)- [facility] Diagnosis CKD (chronic kidney disease)- Primary Chronic kidney disease, unspecified Acute on chronic diastolic (congestive) heart failure (HCC) [facility] Diagnosis Abscess of back- Primary Cellulitis and abscess of trunk documented in this encounter [facility] HealthcareHistory general Narrative - Reported* Type Description Date Medical History hashimotos thyroiditis Medical History hypertension Medical History vitamin D deficiency Medical History hyperlipidemia Medical History SLEEP APNEA Medical History CKD Medical History Acute Kidney Injury with dialysis from [id number] 15,2021 Medical History MINI STROKE Surgical History appendectomy Surgical History cataract surgery RIGHT EYE 2017 Surgical History port in chest 03/2021 Surgical History PORT REMOVED FROM CHEST 05/2021 Hospitalization History low potassium 2017 Hospitalization History SEE ABOVE Hospitalization History kidney issues Be [facility] for 7 days 03/2021 [facility] Other History general Narrative - Reported* Type Description Date Medical History hashimotos thyroiditis Medical History hypertension Medical History vitamin D deficiency Medical History hyperlipidemia Medical History SLEEP APNEA Medical History CKD Medical History Acute Kidney Injury with dialysis from [id number] 15,2021 Medical History MINI STROKE Surgical History appendectomy Surgical History cataract surgery RIGHT EYE 2017 Surgical History port in chest 03/2021 Surgical History PORT REMOVED FROM CHEST 05/2021 Surgical History carotid endarterectomy 2020 Hospitalization History low potassium 2016 Hospitalization History SEE ABOVE Hospitalization History kidney issues Be [facility] for 7 days 03/2021 [facility] Other history general Narrative - Reported* Type Description Date Medical History hashimotos thyroiditis Medical History hypertension Medical History vitamin D deficiency Medical History hyperlipidemia Medical History SLEEP APNEA Medical History CKD Medical History Acute Kidney Injury with dialysis from [id number] 15,2021 Medical History MINI STROKE Surgical History appendectomy Surgical History cataract surgery RIGHT EYE 2017 Surgical History port in chest 03/2021 Surgical History PORT REMOVED FROM CHEST 05/2021 Surgical History LEFT carotid endarterectomy 202 1 Hospitalization History low potassium 2016 Hospitalization History SEE ABOVE Hospitalization History kidney issues Be [facility] for 7 days 03/2021 Hospitalization History LEFT CAROTID ENDARTERECT HUMA 07/2021 [facility] Other history general Narrative - Reported* Type Description Date Medical History hashimotos thyroiditis Medical History hypertension Medical History vitamin D deficiency Medical History hyperlipidemia Medical History SLEEP APNEA Medical History CKD Medical History Acute Kidney Injury with dialysis from [id number] 15,2021 Medical History MINI STROKE Surgical History appendectomy Surgical History cataract surgery RIGHT EYE 2016 Surgical History port in chest 03/2021 Surgical History PORT REMOVED FROM CHEST 05/2021 Surgical History LEFT carotid endarterectomy 202 1 Hospitalization History low potassium 2016 Hospitalization History SEE ABOVE Hospitalization History kidney issues Be [facility] and the [facility] for 7 days 03/2021 Hospitalization History LEFT CAROTID ENDARTERECT HUMA 07/2021 Hospitalization History kidney issues 12/06 [facility] Other history general Narrative - Reported* Type Description Date Medical History hashimotos thyroiditis Medical History hypertension Medical History vitamin D deficiency Medical History hyperlipidemia Medical History SLEEP APNEA Medical History CKD Medical History Acute Kidney Injury with dialysis from [id number] 15,2021 Medical History MINI STROKE Surgical History appendectomy Surgical History cataract surgery RIGHT EYE 2017 Surgical History port in chest 03/2021 Surgical History PORT REMOVED FROM CHEST 05/2021 Surgical History LEFT carotid endarterectomy 202 1 Surgical History hd port placement 01/03 Hospitalization History low potassium 2016 Hospitalization History SEE ABOVE Hospitalization History kidney issues Be [facility] and [facility] for 7 days 03/2021 Hospitalization History LEFT CAROTID ENDARTERECT HUMA 07/2021 Hospitalization History kidney issues 12/06 [facility] Other history general Narrative - Reported* Type Description Date Medical History hashimotos thyroiditis Medical History hypertension Medical History vitamin D deficiency Medical History hyperlipidemia Medical History SLEEP APNEA Medical History CKD Medical History Acute Kidney Injury with dialysis from [id number] 15,2021 Medical History MINI STROKE Surgical History appendectomy Surgical History cataract surgery RIGHT EYE 2016 Surgical History port in chest 03/2021 Surgical History PORT REMOVED FROM CHEST 05/2021 Surgical History LEFT carotid endarterectomy 202 1 Surgical History hd port placement 01/03 Hospitalization History low potassium 2016 Hospitalization History SEE ABOVE Hospitalization History kidney issues Be [facility] and the [facility] for 7 days 03/2021 Hospitalization History LEFT CAROTID ENDARTERECT HUMA 07/2021 Hospitalization History kidney issues 12/06 Hospitalization History Kidney 02/19/20 [facility] Other history general Narrative - Reported* Type Description Date Medical History hashimotos thyroiditis Medical History hypertension Medical History vitamin D deficiency Medical History hyperlipidemia Medical History SLEEP APNEA Medical History CKD Medical History Acute Kidney Injury with dialysis from [id number] 15,2021 Medical History MINI STROKE Surgical History appendectomy Surgical History cataract surgery RIGHT EYE 2016 Surgical History port in chest 03/2021 Surgical History PORT REMOVED FROM CHEST 05/2021 Surgical History LEFT carotid endarterectomy 06/16 021 Surgical History hd port placement 01/03 Hospitalization History low potassium 2016 Hospitalization History SEE ABOVE Hospitalization History kidney issues Be [facility] and [facility] for 7 days 03/2021 Hospitalization History LEFT CAROTID ENDARTERECT HUMA 07/2021 Hospitalization History kidney issues 12/06 Hospitalization History Kidney 02/19/20 [facility] Other history general Narrative - Reported* Type Description Date Medical History hashimotos thyroiditis Medical History hypertension Medical History vitamin D deficiency Medical History hyperlipidemia Medical History SLEEP APNEA Medical History CKD Medical History Acute Kidney Injury with dialysis from [id number] 15,2021 Medical History MINI STROKE Surgical History appendectomy Surgical History cataract surgery RIGHT EYE 2016 Surgical History port in chest 03/2021 Surgical History PORT REMOVED FROM CHEST 05/2021 Surgical History LEFT carotid endarterectomy 06/16 021 Surgical History hd port placement 01/03 Surgical History LEFT ARM AVF CREATION 06/2022 Hospitalization History low potassium 2016 Hospitalization History SEE ABOVE Hospitalization History kidney issues Be [facility] and [facility] for 7 days 03/2021 Hospitalization History LEFT CAROTID ENDARTERECT HUMA 07/2021 Hospitalization History kidney issues 12/06 Hospitalization History Kidney 02/19/20 [facility] Other History general Narrative - Reported* Type Description Date Medical History hashimotos thyroiditis Medical History hypertension Medical History vitamin D deficiency Medical History hyperlipidemia Medical History SLEEP APNEA Medical History CKD Medical History Acute Kidney Injury with dialysis from [id number] 15,2021 Medical History MINI STROKE Medical History [...] SEE ABOVE Hospitalization History kidney issues Be [facility] and [facility] for 7 days 03/2021 Hospitalization History LEFT CAROTID ENDARTERECT HUMA 07/2021 Hospitalization History kidney issues 12/06 Hospitalization History Kidney 02/19/20 [facility] Other Hospital Discharge instructions Additional Instructions DISCHARGE [...] or squeezing a rubber ball or hand acquisition specialist increases the blood flow to your fistula [...] it sounds, feels, or looks! IMPORTANT NUMBERS -[facility] [phone] -[facility] Emergency Room [phone] -Nephrology [phone] -Vascular [phone] FOLLOW UP -Call your physician to schedule a post-operative appointment. [facility] Work Phone: Hospital Discharge instructions Additional Instructions I may not have addressed or treated all of your medical illnesses or the abnormal blood work or imaging studies during this hospitalization. Please ask your primary care provider to obtain [facility] records entirely to follow up on all of the abnormal physical, laboratory, and imaging findings that I have not addressed. Please return back to the emergency room or seek medical attention if your symptoms worsen or return. Discharging you from [facility] does not mean that your medical care ends here and now. You may still need additional monitoring, work up, investigation, and treatment plan to be handled from this point on by out patient providers including your primary care provider and specialists. For any medication question, please contact your retail pharmacist or your primary care provider. Thank you. Continue hemodialysis treatments as before.[facility] Work Phone: Hospital Discharge instructions Additional Instructions Nothing to eat or drink after midnight return if symptoms are worse You may return at any time Continue current meds Follow-up for your surgery at [address] Butler [facility] Work Phone: Hospital Discharge instructions Additional Instructions CONTINUE TO GO TO HEMODIALYSIS SCHEDULED.[facility] Work Phone: Hospital Discharge instructionsAmbulatory Orders* Referral to Dermatology Time Frame: 07/20/25, Location: None [facility] Work Phone: Reason for visit NarrativeF/U TO DISCUSS CAROTID US RESULTS AND DISCUSS LEFT UE AVF PROCEDURENort [employer] Other Summary Purpose Family History No Family [...] mental disorder Unknown History of stroke Unknown family member Unknown mother Heart disease Unknown Unknown Chronic obstructive pulmonary disease Unk nown [...] 2025 10:04am Acute renal 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 on oil well logger eb kidney disease February 24, 2025 10:04am [...] 2025 10:04am Acute renal 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 on oil well logger eb kidney disease February 24, 2025 10:04am [...] am E87.5 April 11, 2025 7:02 am Chief Complaint Admit Date E87.5 February [...] am ESRD April 13, 2025 9:37 am Reason for Visit Admit Date Hemodialysis access, AV graft January 12:50pm End-stage renal disease (ESRD) February 23, 2025 11:02am Acute on chronic respiratory failure wit h hypercapnia February 24, 2025 10:04am Acute on chronic respiratory failure with hypoxia and hypercapnia February 24, 2025 10:04am Acute renal 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 on oil well logger eb kidney disease February 24, 2025 10:04am [...] 10:04am Hypertension April 13, 2025 9:37 am Chief Complaint Admit Date E87.February 05, 2025 7:0 4am clotted graft February [...] am hbp April 13, 2025 1:19 pm Chief Complaint Admit Date E87.5 February 05, [...] am hbp April 13, 2025 1:19 pm thrombosed left forearm av graft April 10:52am Chief Complaint Admit Date E87.5 February 05, [...] am hbp April 13, 2025 1:19 pm thrombosed left forearm av graft April 10:52am 2 WK SURG F/U; RED, INFLAMMED AROUND STA PLES April 28, 2025 10:37am Reason for Visit Admit Date Hemodialysis access, AV graft January 12:50pm End-stage renal disease (ESRD) February 23, 2025 11:02am Acute on chronic respiratory failure wit h hypercapnia February 24, 2025 10:04am Acute on chronic respiratory failure with hypoxia and hypercapnia February 24, 2025 10:04am Acute renal 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 on oil well logger be kidney disease February 24, 2025 10:04am Anemia [...] 10:04am Hypertension April 13, 2025 9:37 am Hemodialysis access, AV graft April 28, 2025 10:37am Chief Complaint Admit Date E87.February 05, 2025 7:0 4am clotted graft February [...] am hbp April 13, 2025 1:19 pm thrombosed left forearm av graft April 10:52am E87.5 April 28, 2025 6:30 am 2 WK SURG F/U; RED, INFLAMMED AROUND STA PLES April 28, 2025 10:37am Chief Complaint Admit Date E87.5 February 05, [...] am hbp April 13, 2025 1:19 pm thrombosed left forearm av graft April 10:52am E87.5 April 28, 2025 6:30 am 2 WK SURG F/U; RED, INFLAMMED AROUND STA PLES April 28, 2025 10:37am e78.5 May 05, 2025 6:20 am Chief Complaint Admit Date E87.5 February [...] am hbp April 13, 2025 1:19 pm thrombosed left forearm av graft April 10:52am E87.5 April 28, 2025 6:30 am 2 WK SURG F/U; RED, INFLAMMED AROUND STA PLES April 28, 2025 10:37am e78.5 May 05, 2025 6:20 am 1 WK WOUND CHECK AVF May 06, 2025 9:5 9am Chief Complaint Admit Date f/u fistulogram February 23, 2025 11:02 am [...] am hbp April 13, 2025 1:19 pm thrombosed left forearm av graft April 10:52am E87.5 April 28, 2025 6:30 am 2 WK SURG F/U; RED, INFLAMMED AROUND STA PLES April 28, 2025 10:37am e78.5 May 05, 2025 6:20 am 1 WK WOUND CHECK AVF May 06, 2025 9:5 9am ESRD May 11, 2025 7:01 am Reason for Visit Admit Date End-stage renal disease (ESRD) February 23, 2025 11:02am Acute on chronic respiratory failure wit h hypercapnia February 24, 2025 10:04am Acute on chronic respiratory failure with hypoxia and hypercapnia February 24, 2025 10:04am Acute renal 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 on oil well logger eb kidney disease February 24, 2025 10:04am [...] 10:04am Hypertension April 13, 2025 9:37 am Hemodialysis access, AV graft April 28, 2025 10:37am Hemodialysis access, AV graft May 06, 2025 9:59am Chief Complaint Admit Date f/u fistulogram February 23, 2025 11:02 am [...] am hbp April 13, 2025 1:19 pm thrombosed left forearm av graft April 10:52am E87.5 April 28, 2025 6:30 am 2 WK SURG F/U; RED, INFLAMMED AROUND STA PLES April 28, 2025 10:37am e78.5 May 05, 2025 6:20 am 1 WK WOUND CHECK AVF May 06, 2025 9:5 9am ESRD May 11, 2025 7:01 am Z99.2 May 15, 2025 8:2 0am Chief Complaint Admit Date f/u fistulogram February 23, 2025 11:02 am [...] am hbp April 13, 2025 1:19 pm thrombosed left forearm av graft April 10:52am E87.5 April 28, 2025 6:30 am 2 WK SURG F/U; RED, INFLAMMED AROUND STA PLES April 28, 2025 10:37am e78.5 May 05, 2025 6:20 am 1 WK WOUND CHECK AVF May 06, 2025 9:5 9am ESRD May 11, 2025 7:01 am Z99.2 May 15, 2025 8:2 0am Kidney Failure/CHF May 20, 2025 2:4 4am Reason for Visit Admit Date End-stage renal disease (ESRD) February 23, 2025 11:02am Anemia of renal disease February 24, 2025 1 0:04am Benign hypertension with end-stage renal disease February 24, 2025 10:04am Acute on chronic respiratory failure wit h hypercapnia February 24, 2025 10:04am Acute on chronic respiratory failure with hypoxia and hypercapnia February 24, 2025 10:04am Acute renal 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 on oil well logger eb kidney disease February 24, 2025 10:04am Cardiac arrest [...] 10:04am Hypertension April 13, 2025 9:37 am Hemodialysis access, AV graft April 28, 2025 10:37am Hemodialysis access, AV graft May 06, 2025 9:59am Acute respiratory failure with hypoxia a nd hypercapnia May 20, 2025 2:44am ESRD (end stage renal disease) May 2:44am Hyperparathyroidism May 20, 2025 2:4 4am Missed dialysis May 20, 2025 2:4 4am Volume overload May 20, 2025 2:4 4am Anemia of renal disease May 20, 2025 2:44am Benign hypertension with end-stage renal disease May 20, 2025 2:44am Chief Complaint Admit Date e87.5 March 10, 2025 7:21a m clotted graft March 10, 2025 2:00p m E87.5 March 31, 2025 6:24 am E87.5 April 11, 2025 7:02 am ESRD April 13, 2025 9:37 am hbp April 13, 2025 1:19 pm thrombosed left forearm av graft April 10:52am E87.5 April 28, 2025 6:30 am 2 WK SURG F/U; RED, INFLAMMED AROUND STA PLES April 28, 2025 10:37am e78.5 May 05, 2025 6:20 am 1 WK WOUND CHECK AVF May 06, 2025 9:5 9am ESRD May 11, 2025 7:01 am Z99.2 May 15, 2025 8:2 0am Kidney Failure/CHF May 20, 2025 2:4 4am cvc removal May 28, 2025 11 :45am Reason for Visit Admit Date Hypertension April 13, 2025 9:37 am Hemodialysis access, AV graft April 28, 2025 10:37am Hemodialysis access, AV graft May 06, 2025 9:59am Acute respiratory failure with hypoxia a nd hypercapnia May 20, 2025 2:44am Anemia of renal disease May 20, 2025 2:44am Benign hypertension with end-stage renal disease May 20, 2025 2:44am ESRD (end stage renal disease) May 2:44am Hyperparathyroidism May 20, 2025 2:4 4am Missed dialysis May 20, 2025 2:4 4am Volume overload May 20, 2025 2:4 4am Chief Complaint Admit Date e87.5 March 10, 2025 7:21a m clotted graft March 10, 2025 2:00p m E87.5 March 31, 2025 6:24 am Screening April 01, 2025 12:3 0pm E87.5 April 11, 2025 7:02 am ESRD April 13, 2025 9:37 am hbp April 13, 2025 1:19 pm thrombosed left forearm av graft April 10:52am E87.5 April 28, 2025 6:30 am 2 WK SURG F/U; RED, INFLAMMED AROUND STA PLES April 28, 2025 10:37am e78.5 May 05, 2025 6:20 am 1 WK WOUND CHECK AVF May 06, 2025 9:5 9am ESRD May 11, 2025 7:01 am Z99.2 May 15, 2025 8:2 0am Kidney Failure/CHF May 20, 2025 2:4 4am cvc removal May 28, 2025 11 :45am Reason for Visit Admit Date Hypertension April 13, 2025 9:37 am Hemodialysis access, AV graft April 28, 2025 10:37am Hemodialysis access, AV graft May 06, 2025 9:59am Acute respiratory failure with hypoxia a nd hypercapnia May 20, 2025 2:44am Anemia of renal disease May 20, 2025 2:44am Benign hypertension with end-stage renal disease May 20, 2025 2:44am ESRD (end stage renal disease) May 2:44am Hyperparathyroidism May 20, 2025 2:4 4am Missed dialysis May 20, 2025 2:4 4am Volume overload May 20, 2025 2:4 4am Hemodialysis access, AV graft May 11:45am Chief Complaint Admit Date E87.5 March 31, 2025 6:24 am Screening April 01, 2025 12:3 0pm E87.5 April 11, 2025 7:02 am ESRD April 13, 2025 9:37 am hbp April 13, 2025 1:19 pm thrombosed left forearm av graft April 10:52am E87.5 April 28, 2025 6:30 am 2 WK SURG F/U; RED, INFLAMMED AROUND STA PLES April 28, 2025 10:37am e78.5 May 05, 2025 6:20 am 1 WK WOUND CHECK AVF May 06, 2025 9:5 9am ESRD May 11, 2025 7:01 am Z99.2 May 15, 2025 8:2 0am Kidney Failure/CHF May 20, 2025 2:4 4am cvc removal May 28, 2025 11 :45am discuss fistula creation June 18, 2025 11:38am Chief Complaint Admit Date E87.5 March 31, 2025 6:24 am Screening April 01, 2025 12:3 0pm E87.5 April 11, 2025 7:02 am ESRD April 13, 2025 9:37 am hbp April 13, 2025 1:19 pm thrombosed left forearm av graft April 10:52am E87.5 April 28, 2025 6:30 am 2 WK SURG F/U; RED, INFLAMMED AROUND STA PLES April 28, 2025 10:37am e78.5 May 05, 2025 6:20 am 1 WK WOUND CHECK AVF May 06, 2025 9:5 9am ESRD May 11, 2025 7:01 am Z99.2 May 15, 2025 8:2 0am Kidney Failure/CHF May 20, 2025 2:4 4am cvc removal May 28, 2025 11 :45am discuss fistula creation June 18, 2025 11:38am establish June 18, 2025 2:00pm Reason for Visit Admit Date Hypertension April 13, 2025 9:37 am Hemodialysis access, AV graft April 28, 2025 10:37am Hemodialysis access, AV graft May 06, 2025 9:59am Acute respiratory failure with hypoxia a nd hypercapnia May 20, 2025 2:44am Anemia of renal disease May 20, 2025 2:44am Benign hypertension with end-stage renal disease May 20, 2025 2:44am ESRD (end stage renal disease) May 2:44am Hyperparathyroidism May 20, 2025 2:4 4am Missed dialysis May 20, 2025 2:4 4am Volume overload May 20, 2025 2:4 4am Hemodialysis access, AV graft May 11:45am AV graft thrombosis June 18, 2025 11:38am Eczema June 18, 2025 2:00pm Hyperlipidemia June 18, 2025 2:00pm Hypothyroid June 18, 2025 2:00pm Screening for prostate cancer June 18, 2025 2:00pm Chief Complaint Admit Date E87.5 April 28, 2025 6:30 am 2 WK SURG F/U; RED, INFLAMMED AROUND STA PLES April 28, 2025 10:37am e78.5 May 05, 2025 6:20 am 1 WK WOUND CHECK AVF May 06, 2025 9:5 9am ESRD May 11, 2025 7:01 am Z99.2 May 15, 2025 8:2 0am Kidney Failure/CHF May 20, 2025 2:4 4am cvc removal May 28, 2025 11 :45am discuss fistula creation June 18, 2025 11:38am establish June 18, 2025 2:00pm eczema on feet July 20, 2025 10 :21am Reason for Visit Admit Date Hemodialysis access, AV graft April 28, 2025 10:37am Hemodialysis access, AV graft May 06, 2025 9:59am Acute respiratory failure with hypoxia a nd hypercapnia May 20, 2025 2:44am Anemia of renal disease May 20, 2025 2:44am Benign hypertension with end-stage renal disease May 20, 2025 2:44am ESRD (end stage renal disease) May 62024 2:44am Hyperparathyroidism May 20, 2025 2:4 4am Missed dialysis May 20, 2025 2:4 4am Volume overload May 20, 2025 2:4 4am Hemodialysis access, AV graft May 142024 11:45am AV graft thrombosis June 18, 2025 11:38am DDD (degenerative disc disease), cervica l June 18, 2025 2:00pm Dependence on renal dialysis June 182024 2:00pm Eczema June 18, 2025 2:00pm End stage renal disease due to benign hy pertension June 18, 2025 2:00pm Hyperlipidemia June 18, 2025 2:00pm Hypertension June 18, 2025 2:00pm Hypothyroid June 18, 2025 2:00pm Neuropathy June 18, 2025 2:00pm Screening for lung cancer June 18, 2025 2:00pm Screening for prostate cancer June 18, 2025 2:00pm Tobacco abuse June 18, 2025 2:00pm Carotid stenosis, bilateral July 20, 2025 10:21am Eczema July 20, 2025 10 :21am Hypertension July 20, 2025 10 :21am Neuropathy July 20, 2025 10 :21am Assessments No Assessments Information Available Reason for Referral Reason Eval and treat for p lantar warts on left foot Diagnosis 1 Plantar wart of left foot (B07.0) Referral Organization [facility] Infectious Dis ease Referring Provider First Name Live Referring Provider Last Name Blank Referring Provider Specialty Infectious Disease Referred Organization [facility] Referred Provider Adrian Stark Referred Address ,[place], [place],[address] Referred Provider Specialty Unknown Referral Priority Routine Reason 01/09/23 @ 2:35pm cyst on lower lumbar area x 1 year Diagnosis 1 Sebaceous cyst (L72. 3) Referral Organization [facility] Family Medicin e Jalil Referring Provider First Name Shantell Referring Provider Last Name Sea Referring Provider Specialty Nurse Pracarely tovar Referred Organization [facility] Referred Provider Fitz Henson Referred Address ,[place], [place],[address] Referred Provider Specialty Dermatology Referral Priority Routine [...] letter back with appt Reason 01/10/23 @ [facility] janelle corina needs colonoscopy for cancer screening. Diagnosis 1 Colon cancer screeni erwin (Z12.11) Referral Organization [facility] Referring Provider First Name Shantell Referring Provider Last Name Sea Referring Provider Specialty Nurse Blanca tovar Referred Organization [facility] Referred Provider Klaus Ford Referred Address [address] [place] [id number] Referred Provider Specialty Gastroentero logy Referral Priority [...] section and content) DATE CREATED AUTHOR 04/09/2018 [facility] DATE CREATED AUTHOR AUTHOR'S ORGANIZ ATION 07/14/2021 [employer] DATE CREATED AUTHOR AUTHOR'S ORGANIZ ATION 05/23/2022 [facility] DATE CREATED AUTHOR AUTHOR'S ORGANIZ ATION 08/21/[address] [facility] DATE CREATED AUTHOR AUTHOR'S ORGANIZ ATION 05/01/2024 [facility] DATE CREATED AUTHOR AUTHOR'S ORGANIZ ATION 02/04/2025 [facility] dical Specialists [facility] DATE CREATED AUTHOR AUTHOR'S ORGANIZ ATION 03/11/2025 [facility] DATE CREATED AUTHOR AUTHOR'S ORGANIZ ATION 06/22/2025 [facility] DATE CREATED AUTHOR AUTHOR'S ORGANIZ ATION 07/24/2025 [facility] REASON FOR VISIT (unrecogniz [...] Team Status: Active Member Role Status Dates NON STAFF Primary Care Provider Active Team Status: Active Member Role Status Dates Shantell Osei [employer] Primary Care Provider Activ e Start: March 10, 2025 Junior Mayo MD Attending Provider Active Start : March 10, 2025 Team Status: Inactive Member Role Status Dates Shantell Osei [employer] Primary Care Provider Activ e Start: March 10, 2025 End: March 10, 2025 Toby Venegas MD Attending Provider Active Star t: March 10, 2025 End: March 10, 2025 Team Status: Active Member Role Status Dates Shantell Osei [employer] Primary Care Provider Activ e Start: March 10, 2025 Gerber Short MD Attending Provider Active S tart: March 10, 2025 Gerber Short MD Other Provider Active Start : March 10, 2025 Team Status: Inactive Member Role Status Dates Shantell Osei [employer] Primary Care Provider Activ e Start: March 31, 2025 End: March 31, 2025 Toby Venegas MD Attending Provider Active Star t: March 31, 2025 End: March 31, 2025 Team Status: Active Member Role Status Dates Toby Venegas MD Attending Provider Active Star t: April 07, 2025 Team Status: Inactive Member Role Status Dates Junior Mayo MD Attending Provider Active Start : April 11, 2025 End: April 11, 2025 Team Status: Active Member Role Status Dates Patrice Levine MD Attending Provider Active Start: April 13, 2025 Patrice Levine MD Other Provider Active Start: April 13, 2025 Services [facility] Primary Care Provider Active Start: April 13, 2025 Team Status: Inactive Member Role Status Dates Services [facility] Primary Care Provider Active Start: April 13, 2025 End: April 13, 2025 Adrian Serrano MD Emergency Provider Active Star t: April 13, 2025 End: April 13, 2025 Team Status: Active Member Role Status Dates Services [facility] Primary Care Provider Active Start: April 14, 2025 Patrice Levine MD Attending Provider Active Start: April 14, 2025 Patrice Levine MD Other Provider Active Start: April 14, 2025 Team Status: Inactive Member Role Status Dates Junior Mayo MD Attending Provider Active Start : April 28, 2025 End: April 28, 2025 Shantell Osei [employer] Primary Care Provider Activ e Start: April 28, 2025 End: April 28, 2025 Team Status: Inactive Member Role Status Dates Gerber Short MD Attending Provider Active S tart: April 28, 2025 End: April 28, 2025 NON STAFF Primary Care Provider Active Start: April 28, 2025 End: April 28, 2025 Team Status: Inactive Member Role Status Dates Junior Mayo MD Attending Provider Active Start : May 05, 2025 End: May 05, 2025 Team Status: Inactive Member Role Status Dates Patrice Levine MD Attending Provider Active Start: May 06, 2025 End: May 06, 2025 NON STAFF Primary Care Provider Active Start: May 06, 2025 End: May 06, 2025 Team Status: Active Member Role Status Dates Patrice Levine MD Attending Provider Active Start: May 11, 2025 Patrice Levine MD Other Provider Active Start: May 11, 2025 Vivian Oconnellnte Primary Care Provider Active Start : May 11, 2025 Team Status: Inactive Member Role Status Dates Vivian Kay Primary Care Provider Active Start : May 15, 2025 End: May 15, 2025 Patrice Levine MD Attending Provider Active Start: May 15, 2025 End: May 15, 2025 Team Status: Active Member Role Status Dates NON STAFF Primary Care Provider Active Start: May 20, 2025 Percy Herrera MD Admit Provider Active S tart: May 20, 2025 Tk Kapoor MD Other Provider Active Sta rt: May 20, 2025 Toby Venegas MD Other Provider Active Start: A 2024 AINSLEY Don Other Provider Active Start: May 20, 2025 Junior Mayo MD Attending Provider Active Start : May 20, 2025 Junior Mayo MD Other Provider Active Start: Au alycia 2024 Ramos Govea MD Other Provider Active Start: A ugust 2024 Team Status: Inactive Member Role Status Dates NON STAFF Primary Care Provider Active Start: May 28, 2025 End: May 28, 2025 Patrice Levine MD Attending Provider Active Start: May 28, 2025 End: May 28, 2025 Team Status: Inactive Member Role Status Dates Shantell Osei [facility] Primary Care Provider Activ e Start: February 23, 2025 End: February 23, 2025 Gerber Short MD Attending Provider Active S tart: February 23, 2025 End: February 23, 2025 Team Status: Inactive Member Role Status Dates Shantell Osei [facility] Primary Care Provider Activ e Start: February 24, 2025 End: February 26, 2025 Irwin Theodore MD Admit Provider Active Start: February 24, 2025 End: February 26, 2025 Irwin Theodore MD Attending Provider Active St art: February 24, 2025 End: February 26, 2025 Toby Venegas MD Other Provider Active Start: [facility] 2024 End: February 26, 2025 AINSLEY Don Other Provider Active Start: February 24, 2025 End: February 26, 2025 Junior Mayo MD Other Provider Active Start: Ma y 2024 End: February 26, 2025 Ramos Govea MD Other Provider Active Start: M ay 2024 End: February 26, 2025 Xin Burdick APRN [facility] Other Provider Active Start: February 24, 2025 End: February 26, 2025 Pablo Valdez MD Other Provider Active Start: February 24, 2025 End: February 26, 2025 Sajan Ascencio MD Other Provider Active St art: February 24, 2025 End: February 26, 2025 Gomez Montes MD Other Provider Active Start: ay 2024 End: February 26, 2025 Louis Bell , Other Provider Active Start: February 24, 2025 End: February 26, 2025 Rey Romero , Other Provider Active Start: February 24, 2025 End: February 26, 2025 Teri Degroot MD Other Provider Active Start: ay 2024 End: February 26, 2025 Jassi Arroyo MD Other Provider Activ e Start: February 24, 2025 End: February 26, 2025 Fatuma Kwan MD Other Provider Active Start: 2024 End: February 26, 2025 Vanda Mejía MD Other Provider Active Start: February 24, 2025 End: February 26, 2025 Team Status: Active Member Role Status Dates Shantell Osei [facility] Primary Care Provider Activ e Start: February 24, 2025 Irwin Theodore MD Admit Provider Active Start: February 24, 2025 Irwin Theodore MD Other Provider Active Start: February 24, 2025 Toby Venegas MD Other Provider Active Start: M ay 2024 AINSLEY Don Other Provider Active Start: February 24, 2025 Junior Mayo MD Attending Provider Active Start : February 24, 2025 Junior Mayo MD Other Provider Active Start: Vida noonan 2024 Ramos Govea MD Other Provider Active Start: M ay 2024 Xin Burdick APRN [facility] Other Provider Active Start: February 24, 2025 Pablo Valdez MD Other Provider Active Start: February 24, 2025 Sajan Ascencio MD Other Provider Active St art: February 24, 2025 Gomez Montes MD Other Provider Active Start: 2024 Louis Bell , DO Other Provider Active Start: February 24, 2025 Rey Romero , DO Other Provider Active Start: February 24, 2025 Teri Degroot MD Other Provider Active Start: ay 2024 Jassi Arroyo MD Other Provider Activ e Start: February 24, 2025 Fatuma Kwan MD Other Provider Active Start: 2024 Vanda Mejía MD Other Provider Active Start: February 24, 2025 Team Status: Active Member Role Status Dates Shantell Osei [facility] Primary Care Provider Activ e Start: February 24, 2025 Irwin Theodore MD Admit Provider Active Start: February 24, 2025 Irwin Theodore MD Other Provider Active Start: February 24, 2025 Toby Venegas MD Other Provider Active Start: 2024 AINSLEY Don Other Provider Active Start: February 24, 2025 Junior Mayo MD Other Provider Active Start: Wi y 2024 Ramos Govea MD Other Provider Active Start: 2024 Xin Burdick MANUFACTURING CLERK [facility] Other Provider Active Start: February 24, 2025 Pablo Valdez MD Attending Provider Active Start: February 24, 2025 Pablo Valdez MD Other Provider Active Start: February 24, 2025 Sajan Ascencio MD Other Provider Active St art: February 24, 2025 Gomez Montes MD Other Provider Active Start: ay 2024 Louis Bell , DO Other Provider Active Start: February 24, 2025 Rey Romero , DO Other Provider Active Start: February 24, 2025 Teri Degroot MD Other Provider Active Start: M ay 2024 Jassi Arroyo MD Other Provider Activ e Start: February 24, 2025 Fatuma Kwan MD Other Provider Active Start: ay 2024 Vanda Mejía MD Other Provider Active Start: February 24, 2025 Team Status: Active Member Role Status Dates Shantell Osei [facility] Primary Care Provider Activ e Team Status: Active Member Role Status Dates PHYSICIAN NO FAMILY Primary Care Provider Active Start: December 08, 2024 Ramos Govea MD Attending Provider Active Star t: December 08, 2024 Team Status: Active Member Role Status Dates PHYSICIAN NO FAMILY Primary Care Provider Active Start: January 05, 2025 Ramos Govea MD Attending Provider Active Star t: January 05, 2025 Team Status: Active Member Role Status Dates Shantell Sea [facility] Primary Care Provider Activ e Start: February 05, 2025 Toby Venegas MD Attending Provider Active Star t: February 05, 2025 Team Status: Inactive Member Role Status Dates Shantellbrenda Osei [facility] Primary Care Provider Activ e Start: February 05, 2025 End: February 05, 2025 Toby Venegas MD Attending Provider Active Star t: February 05, 2025 End: February 05, 2025 Team Status: Inactive Member Role Status Dates Shantell Zavalasheldon [facility] Primary Care Provider Activ e Start: February 05, 2025 End: February 05, 2025 Gerber Short MD Attending Provider Active S tart: February 05, 2025 End: February 05, 2025 Team Status: Active Member Role Status Dates Shantell Osei [facility] Primary Care Provider Activ e Start: February 06, 2025 Gerber Short MD Attending Provider, Other Provider Active Start: February 06, 2025 Team Status: Inactive Member Role Status Dates Ramos Govea MD Attending Provider Active Star t: [...] Active Member Role Status Dates Shantell Osei [facility] Primary Care Provider Activ e Start: January 06, 2024 Junior Mayo MD Attending Provider Active Start : January 06, 2024 Team Status: Inactive Member Role Status Dates Shantell Osei [facility] Primary Care Provider Activ e Start: January 08, 2024 End: January 09, 2024 Toby Venegas MD Other Provider Active Start: [facility] 2023 End: January 09, 2024 AINSLEY Don Other Provider Active Start: January 08, 2024 End: January 09, 2024 Junior Mayo MD Other Provider Active Start: [facility] 2023 End: January 09, 2024 Baudilio Hoyos MD Other Provider Active Star t: January 08, 2024 End: January 09, 2024 Raul Malave MD Other Provider Active Start: January 08, 2024 End: January 09, 2024 Ramos Govea MD Other Provider Active Start: [facility] 2023 End: January 09, 2024 Percy Herrera MD Admit Provider Active S tart: January 08, 2024 End: January 09, 2024 Jersey Sharp MD Attending Provider Active Sta rt: January 08, 2024 End: January 09, 2024 Team Status: Active Member Role Status Dates Shantell Osei [facility] Primary Care Provider Activ e Start: January 08, 2024 End: January 09, 2024 Jose Luis Musa MD Admit Provider, Othe r Provider Active Start: January 08, 2024 End: January 09, 2024 Percy Herrera MD Attending Provider Active Start: January 08, 2024 End: January 09, 2024 Martín Hampton MD Active Start: [facility] 2023 End: January 09, 2024 Team Status: Active Member Role Status Dates Shantell Osei [facility] Primary Care Provider Activ e Start: January 09, 2024 End: January 09, 2024 Toby Venegas MD Other Provider Active Start: [facility] 2023 End: January 09, 2024 AINSLEY Don Other Provider Active Start: January 09, 2024 End: January 09, 2024 Junior Mayo MD Other Provider Active Start: [facility] 2023 End: January 09, 2024 Baudilio Hoyos MD Other Provider Active Star t: January 09, 2024 End: January 09, 2024 Raul Malave MD Other Provider Active Start: January 09, 2024 End: January 09, 2024 Ramos Govea MD Other Provider Active Start: [facility] 2023 End: January 09, 2024 Percy Herrera MD Admit Provider Active S tart: January 09, 2024 End: January 09, 2024 Jersey Sharp MD Attending Provider, Other Provider Active Start: January 09, 2024 End: January 09, 2024 Xin Burdick APRN ACNP-BC Other Provider Active Start: January 09, 2024 End: January 09, 2024 Ramirez Arango MD Other Provider Active Start: [facility] 2023 End: January 09, 2024 Pablo Valdez MD Other Provider Active Start: January 09, 2024 End: January 09, 2024 Sajan Ascencio MD Other Provider Active St art: January 09, 2024 End: January 09, 2024 Mario Kinsey DO Other Provider Active Start: January 09, 2024 End: January 09, 2024 Lashon Hurtado MD Other Provider Active Start: January 09, 2024 End: January 09, 2024 Adrian Goodson MD Other Provider Active Start: January 09, 2024 End: January 09, 2024 Gomez Montes MD Other Provider Active Start: [facility] 2023 End: January 09, 2024 Louis Bell DO Other Provider Active Start: January 09, 2024 End: January 09, 2024 Rey Romero DO Other Provider Active Start: January 09, 2024 End: January 09, 2024 Teri Degroot MD Other Provider Active Start: [facility] 2023 End: January 09, 2024 Jassi Arroyo MD Other Provider Active Start: January 09, 2024 End: January 09, 2024 Fatuma Kwan MD Other Provider Active Start: [facility] 2023 End: January 09, 2024 Team Status: Active Member Role Status Dates Shantell Osei , COUNSELOR AT LAW-BC Primary Care Provider Activ e Start: January 09, 2024 End: January 09, 2024 Toby Venegas MD Attending Provider, Other Provider Active Start: January 09, 2024 End: January 09, 2024 Isha Kowalski NP-C Other Provider Active Start: January 09, 2024 End: January 09, 2024 Junior Mayo MD Other Provider Active Start: [facility] 2023 End: January 09, 2024 Baudilio Hoyos MD Other Provider Active Star t: January 09, 2024 End: January 09, 2024 Raul Malave MD Other Provider Active Start: January 09, 2024 End: January 09, 2024 Ramos Govea MD Other Provider Active Start: [facility] 2023 End: January 09, 2024 Percy Herrera MD Admit Provider Active S tart: January 09, 2024 End: January 09, 2024 Jersey Sharp MD Other Provider Active Start: January 09, 2024 End: January 09, 2024 Xin Burdick APRN [facility]- Other Provider Active Start: January 09, 2024 End: January 09, 2024 Ramirez Arango MD Other Provider Active Start: [facility] 2023 End: January 09, 2024 Pablo Valdez MD Other Provider Active Start: January 09, 2024 End: January 09, 2024 Sajan Ascencio MD Other Provider Active St art: January 09, 2024 End: January 09, 2024 Mario Kinsey DO Other Provider Active Start: January 09, 2024 End: January 09, 2024 Lashon Hurtado MD Other Provider Active Start: January 09, 2024 End: January 09, 2024 Adrian Goodson MD Other Provider Active Start: January 09, 2024 End: January 09, 2024 Gomez Montes MD Other Provider Active Start: [facility] 2023 End: January 09, 2024 Louis Bell , Other Provider Active Start: January 09, 2024 End: January 09, 2024 Rey Roemro , Other Provider Active Start: January 09, 2024 End: January 09, 2024 Teri Degroot MD Other Provider Active Start: [facility] 2023 End: January 09, 2024 Jassi Arroyo MD Other Provider Active Start: January 09, 2024 End: January 09, 2024 Fatuma Kwan MD Other Provider Active Start: [facility] 2023 End: January 09, 2024 Team Status: Inactive Member Role Status Dates Shantell Osei COUNSELOR AT LAW-BC Primary Care Provider Activ e Start: February 07, 2024 End: February 07, 2024 Junior Mayo MD Attending Provider Active Start : February 07, 2024 End: February 07, 2024 Team Status: Inactive Member Role Status Dates Shantell Osei COUNSELOR AT LAW-BC Primary Care Provider Activ e Start: February 21, 2024 End: February 21, 2024 Junior Mayo MD Attending Provider Active Start : February 21, 2024 End: February 21, 2024 Team Status: Inactive Member Role Status Dates Shantell Osei , COUNSELOR AT LAW-C Primary Care Provider Active Patrice Levine MD Attending Provider Active Team Status: Active Member Role Status Dates Shantell Osei COUNSELOR AT LAW-C Primary Care Provider Active Team Status: Inactive Member Role Status Dates Shantell Osei , COUNSELOR AT LAW-C Primary Care Provider Active Gerber Short MD Attending Provider Active Team Status: Inactive Member Role Status Dates Shantell Osei , COUNSELOR AT LAW-C Primary Care Provider Active Percy Herrera MD Admit Provider Active Irwin Theodore MD Attending Provider Active Toby Venegas MD Other Provider Active Team Status: Inactive Member Role Status Dates Shantell Osei , COUNSELOR AT LAW-C Primary Care Provider Active Junior Mayo MD Attending Provider Active Team Status: Inactive Member Role Status Dates Shantell Osei , COUNSELOR AT LAW-C Primary Care Provider Active Start: October 11, [...] Status: Inactive Member Role Status Dates Live Ngyuen MD Attending Provider Active Sta rt: November 14, 2023 End: November 14, 2023 Team Status: Active Member Role Status Dates Shantell Osei COUNSELOR AT LAW-BC Primary Care Provider Activ e Start: January 08, 2024 Jose Luis Musa MD Admit Provider, Othe r Provider Active Start: January 08, 2024 Percy Herrera MD Attending Provider Active Start: January 08, 2024 Team Status: Active Member Role Status Dates Shantell Osei COUNSELOR AT LAW-BC Primary Care Provider Activ e Start: January 09, 2024 Toby Venegas MD Other Provider Active Start: M arch 2023 AINSLEY Don Other Provider Active Start: January 09, 2024 Junior Mayo MD Other Provider Active Start: [facility] 2023 Baudilio Hoyos MD Other Provider Active Star t: January 09, 2024 Raul Malave MD Other Provider Active Start: January 09, 2024 Ramos Govea MD Other Provider Active Start: M arch 2023 Percy Herrera MD Admit Provider Active S tart: January 09, 2024 Jersey Sharp MD Attending Provider, Other Provider Active Start: January 09, 2024 Xin Burdick APRN ACNP-BC Other Provider Active Start: January 09, 2024 Ramirez Arango MD Other Provider Active Start: M arch 2023 Pablo Valdez MD Other Provider Active Start: January 09, 2024 Sajan Ascencio MD Other Provider Active St art: January 09, 2024 Mario Kinsey , Other Provider Active Start: January 09, 2024 Lashon Hurtado MD Other Provider Active Start: January 09, 2024 Adrian Goodson MD Other Provider Active Start: January 09, 2024 Gomez Montes MD Other Provider Active Start: [facility] 2023 Louis Bell , Other Provider Active Start: January 09, 2024 Rey Romero , Other Provider Active Start: January 09, 2024 Teri Degroot MD Other Provider Active Start: [facility] 2023 Jassi Arroyo MD Other Provider Active Start: January 09, 2024 Fatuma Kwan MD Other Provider Active Start: [facility] 2023 Team Status: Active Member Role Status Dates Shantell Osei [facility] Primary Care Provider Activ e Start: January 09, 2024 Toby Venegas MD Attending Provider, Other Provider Active Start: January 09, 2024 AINSLEY Don Other Provider Active Start: January 09, 2024 Junior Mayo MD Other Provider Active Start: [facility] 2023 Baudilio Hoyos MD Other Provider Active Star t: January 09, 2024 Raul Malave MD Other Provider Active Start: January 09, 2024 Ramos Govea MD Other Provider Active Start: [facility] 2023 Percy Herrera MD Admit Provider Active S tart: January 09, 2024 Jersey Sharp MD Other Provider Active Start: January 09, 2024 Xin Burdick APRN [facility] Other Provider Active Start: January 09, 2024 Ramirez Arango MD Other Provider Active Start: [facility] 2023 Pablo Valdez MD Other Provider Active Start: January 09, 2024 Sajan Ascencio MD Other Provider Active St art: January 09, 2024 Mario Kinsey DO Other Provider Active Start: January 09, 2024 Lashon Hurtado MD Other Provider Active Start: January 09, 2024 Adrian Goodson MD Other Provider Active Start: January 09, 2024 Gomez Montes MD Other Provider Active Start: [facility] 2023 Louis Bell , Other Provider Active Start: January 09, 2024 Rey Romero DO Other Provider Active Start: January 09, 2024 Teri Degroot MD Other Provider Active Start: M arch 2023 Jassi Arroyo MD Other Provider Active Start: January 09, 2024 Fatuma Kwan MD Other Provider Active Start: M arch 2023 Fire Watcher Relationship Specialty Start Date End Date Shantell Osei NP [address] [place] [address] Referring Physician 08/21/24 Fire Watcher Relationship Specialty Start Date End Date Shantell Osei NP [address] [place] [address] Referring Physician 08/21/24 Team Status: Active Member Role Status Dates Shantell Osei [facility] Primary Care Provider Activ e Start: August 07, 2024 Junior Mayo MD Attending Provider Active Start : August 07, 2024 Team Status: Active Member Role Status Dates Shantell Osei [facility] Primary Care Provider Activ e Start: September 07, 2024 Junior Mayo MD Attending Provider Active Start : September 07, 2024 Team Status: Active Member Role Status Dates Shantell Osei [facility] Primary Care Provider Activ e Start: September 14, 2024 Ramos Govea MD Attending Provider Active Star t: September 14, 2024 Team Status: Inactive Member Role Status Dates Shantell Osei [facility] Primary Care Provider Activ e Start: October 31, 2024 End: October 31, 2024 Toby Venegas MD Attending Provider Active Star t: October 31, 2024 End: October 31, 2024 Fire Watcher Relationship Specialty Start Date End Date Ace Marr DO PCP - General Family Medicine 02/11/14 Team Status: Inactive Member Role Status Dates Junior Mayo MD Attending Provider Active Start : November 15, 2024 End: November 15, 2024 Fire Watcher Relationship Specialty Start Date End Date Norm Faustin MD [address] [facility] [address] [place] [address] PCP - Devoted 10/15/24 Shantell Osei NP [address] [place] [address] Referring Physician 08/21/24 Team Status: Inactive Member Role Status Dates Shantell Osei , [facility] Primary Care Provider Activ e Start: February 24, 2025 End: February 26, 2025 Irwin Theodore MD Admit Provider, Atte nding Provider Active Start: February 24, 2025 End: February 26, 2025 Toby Venegas MD Other Provider Active Start: [facility] 2024 End: February 26, 2025 Isha Kowalski NP-C Other Provider Active Start: February 24, 2025 End: February 26, 2025 Junior Mayo MD Other Provider Active Start: Vida noonan 2024 End: February 26, 2025 Ramos Govea MD Other Provider Active Start: [facility] 2024 End: February 26, 2025 Xin Burdick APRN [facility] Other Provider Active Start: February 24, 2025 End: February 26, 2025 Pablo Valdez MD Other Provider Active Start: February 24, 2025 End: February 26, 2025 Sajan Ascencio MD Other Provider Active St art: February 24, 2025 End: February 26, 2025 Gomez Montes MD Other Provider Active Start: M ay 2024 End: February 26, 2025 Louis Bell DO Other Provider Active Start: February 24, 2025 End: February 26, 2025 Rey Romero DO Other Provider Active Start: February 24, [...] Active Member Role Status Dates Shantell Osei [facility] Primary Care Provider Activ e Start: February 24, 2025 Irwin Theodore MD Admit Provider, Othe r Provider Active Start: February 24, 2025 Toby Venegas MD Other Provider Active Start: 2024 SHOAIB DonC Other Provider Active Start: February 24, 2025 Junior Mayo MD Attending Provider, Other Provider Active Start: February 24, 2025 Ramos Govea MD Other Provider Active Start: 2024 Xin Burdick APRN [facility] Other Provider Active Start: February 24, 2025 Pablo Valdez MD Other Provider Active Start: February 24, 2025 Sajan Ascencio MD Other Provider Active St art: February 24, 2025 Gomez Montes MD Other Provider Active Start: 2024 Louis Bell DO Other Provider Active Start: February 24, 2025 Rey Romero DO Other Provider Active Start: February 24, 2025 Teri Degroot MD Other Provider Active Start: 2024 Jassi Arroyo MD Other Provider Active Start: February 24 Fatuma Kwan MD Other Provider Active Start: 2024 Vanda Mejía MD Other Provider Active Start: February 24, 2025 Team Status: Active Member Role Status Dates Shantell Osei [facility] Primary Care Provider Activ e Start: February 24, 2025 Irwin Theodore MD Admit Provider, Othe r Provider Active Start: February 24, 2025 Toby Venegas MD Other Provider Active Start: M ay 2024 Isha Kowalski NP-C Other Provider Active Start: February 24, 2025 Junior Mayo MD Other Provider Active Start: Wi y 2024 Ramos Govea MD Other Provider Active Start: 2024 Xin Burdick , MANUFACTURING CLERK [facility] Other Provider Active Start: February 24, 2025 Pablo Valdez MD Attending Pr ovider, Other Provider Active Start: February 24, 2025 Sajan Ascencio MD Other Provider Active St art: February 24, 2025 Gomez Montes MD Other Provider Active Start: 2024 Louis Bell , DO Other Provider Active Start: February 24, 2025 Rey Romero , DO Other Provider Active Start: February 24, 2025 Teri Degroot MD Other Provider Active Start: 2024 Jassi Arroyo MD Other Provider Active Start: February 24 Fatuma Kwan MD Other Provider Active Start: 2024 Vanda Mejía MD Other Provider Active Start: February 24, 2025 Team Status: Active Member Role Status Dates Shantell Osei [facility] Primary Care Provider Activ e Start: March 10, 2025 Gerber Short MD Attending Provider, Other Provider Active Start: March 10, 2025 Team Status: Active Member Role Status Dates Shantell Osei [facility] Primary Care Provider Activ e Start: February 06, 2025 Gerber Short MD Attending Provider Active S tart: February 06, 2025 Gerber Short MD Other Provider Active Start : February 06, 2025 Team Status: Active Member Role Status Dates Services Family Health Primary Care Provider Active Team Status: Inactive Member Role Status Dates Services Family [facility] Primary Care Provider Active Start: April 14, 2025 End: April 14, 2025 Patrice Levine MD Attending Provider Active Start: April 14, 2025 End: April 14, 2025 Team Status: Active Member Role Status Dates Junior Mayo MD Attending Provider Active Start : April 28, 2025 Team Status: Active Member Role Status Dates Vivian Kay Primary Care Provider Active Team Status: Inactive Member Role Status Dates Patrice Levine MD Attending Provider Active Start: May 11, 2025 End: May 11, 2025 Vivian Kay Primary Care Provider Active Start : May 11, 2025 End: May 11, 2025 Team Status: Inactive Member Role Status Dates Romain Menon MD Attending Provider Active S tart: April 01, 2025 End: April 01, 2025 NON STAFF Primary Care Provider Active Start: April 01, 2025 End: April 01, 2025 Team Status: Active Member Role Status Dates Juanita Rosenberg APRN CLINICAL OPERATIONS CONSULTANT-C Primary Care Provider Active Team Status: Active Member Role Status Dates NON STAFF Primary Care Provider Active Start: May 07, 2025 Junior Mayo MD Attending Provider Active Start : May 07, 2025 Team Status: Inactive Member Role Status Dates Patrice Levine MD Attending Provider Active Start: June 18, 2025 End: June 18, 2025 Juanita Rosenberg APRN CLINICAL OPERATIONS CONSULTANT-C Primary Care Provider Active Start: June 182024 End: June 18, 2025 Team Status: Inactive Member Role Status Dates Juanita Rosenberg APRN CLINICAL OPERATIONS CONSULTANT-C Primary Care Provider Active Start: June 182024 End: June 18, 2025 Juanita Rosenberg APRN CLINICAL OPERATIONS CONSULTANT-C Attending Provider Active Start: June End: June 18, 2025 Team Status: Active Member Role Status Dates Juanita Rosenberg APRN CLINICAL OPERATIONS CONSULTANT-C Primary Care Provider Active Start: June 09, 2025 Junior Mayo MD Attending Provider Active Start : June 09, 2025 Team Status: Inactive Member Role Status Dates Juanita Rosenberg APRN CLINICAL OPERATIONS CONSULTANT-C Primary Care Provider Active Start: July 20, 2025 End: July 20, 2025 Juanita Rosenberg APRN CLINICAL OPERATIONS CONSULTANT-C Attending Provider Act delilah Start: July 20, 2025 End: July 20, 2025 Goals (unrecognized section and content) Goals [...] RN) 0823 (Given - Provider: Jared Whitley, RN) gabapentin (NEURONTIN) capsule 300 mg 300 mg, Oral, 2 times daily, First dose on 04/26/24 at 1315, Until Discontinued 1313 (Given - Provider: Jared Whitley RN)2041 (Given - Provider: Ziggy Macedo RN) 08 [...] units bolus 1516 (Given - Provider: Noy Chong, RN) hydrALAZINE (APRESOLINE) tablet 100 mg (CANCELED) [...] RN - Reason: Other - Comment: duplicate order)2233 (Given - Provider: Ziggy Macedo RN) 0609 [...] after dose. 1313 (Given - Provider: Jared Whitley, BRET) lisinopril (PRINIVIL;ZESTRIL) tablet 10 mg 10 mg, Oral, 2 TIMES DAILY, First dose on 04/26/24 at 1300, Until Discontinued 1259 (Given - Provider: Jared Whitley, BRET)2043 (Given - Provider: Ziggy Macedo RN) 0824 [...] - Reason: Other - Comment: double entry) 08 (Given - Provider: Jared Whitley RN)2100 [...] BE BASED ON THE PRIMARY CLINICAL RECORDS. [employer] [facility]. provides no warranty or guarantee of the accuracy or completeness of information in this document.
--- NOTE | 2025-07-25 19:11 | ECG_ITS ---
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 Measurements Intervals [place] Rate: 110 P: 83 MS: 154 QRS: 99 QRSD: 72 T: -63 QT: 326 QTc: 391 Interpretive Statements 1120 Sinus tachycardia [address] depression 4564 Twave abnormality, possible lateral ischemia 4664 Twave abnormality, possible inferior ischemia 6130 Right atrial enlargement 6220 Possible left atrial enlargement 7102 Moderate right axis deviation 9150 abnormal ECG Compared to ECG 05/19/2025 22:56:39 Possible ischemia now present Atrial abnormality now present Right-axis deviation now present Electronically Signed On 07-25-2025 21:56:15 EDT by KIRK MARINELLI M.D.
[2025-07-25 19:37] LABS: Hematocrit 44.2 % (42.0-54.0); Hemoglobin 13.8 g/dL (14.0-18.0); Mean Corpuscular HGB Conc 31.2 g/dL (29.9-35.2); Mean Corpuscular Hemoglobin 29.9 pg (25.9-34.0); Mean Corpuscular Volume 95.9 fL (80.0-94.0); Platelet Count 288 10^3/uL (150-450); Red Blood Count 4.61 10^6/uL (4.70-6.10); White Blood Count 11.2 10^3/uL (4.0-11.0)
--- NOTE | 2025-07-25 19:37 | ED.GENADUL1 ---
HPI HPI - General Adult General Chief complaint: Skin/Abscess/Foreign Body Stated complaint: Upper Arm Looked AT Time Seen by Provider: 07/25/25 19:04 Source: patient Mode of arrival: walk-in Limitations: no limitations History of Present Illness HPI narrative: Patient is a 54-year-old male presenting to the emergency department for evaluation of left forearm pain and swelling. The patient states he woke up this morning and noticed that his left forearm was red, painful to the touch, and swollen. He states that the location of the swelling is over his old AV fistula site. He has a history of ESRD on HD Sunday, , and Sunday. His last run of dialysis was today, had a full run with no complications. He has not used the AV fistula site in his forearm in over 3 weeks, and currently has a port in his right chest where he got dialysis today. He scheduled to get an AV fistula in his left brachial site in a couple weeks. Other than localized pain, redness, swelling, he denies any other symptoms. He has no fevers or chills. No chest pain or shortness of breath. No abdominal pain, nausea, or vomiting. Generally other history significant for hypertension and CAD s/p coronary stent placed 1 year ago. Related Data Home Medications ?Medication ?Instructions ?Recorded ?Confirmed gabapentin 300 mg capsule 300 mg PO Q12H 05/21/23 07/25/25 hydralazine 100 mg tablet 100 mg PO Q12H 05/21/23 07/25/25 clopidogrel 75 mg tablet 75 mg PO DAILY 02/08/24 07/25/25 isosorbide mononitrate 30 mg 30 mg PO DAILY 02/08/24 07/25/25 tablet,extended release 24 hr atorvastatin 10 mg tablet 10 mg PO DAILY 04/13/25 07/25/25 carvedilol 12.5 mg tablet 25 mg PO Q12H 04/13/25 07/25/25 levothyroxine 100 mcg tablet 100 mcg PO DAILY 04/13/25 07/25/25 lisinopril 20 mg tablet 20 mg PO DAILY 04/13/25 07/25/25 clonidine HCl 0.1 mg tablet 0.1 mg PO Q12H 07/25/25 07/25/25 methylprednisolone 4 mg tablets in mg 07/25/25 a dose pack Allergies Allergy/AdvReac Type Severity Reaction Status Date / Time CT contrast Allergy unknown Uncoded 07/25/25 18:41 Opioid HPI Opioid Management Most Recent Opioid Data: Last Pain Scale 8 Today, 18:46 Review of Systems ROS Status of ROS 10 or more systems reviewed and unremarkable except as noted in history and below PFSH PFS Social History Smoking status: Heavy tobacco smoker Little interest or pleasure in doing things: not at all Feeling down, depressed, or hopeless: not at all Exam Narrative Exam Narrative: CONSTITUTIONAL: Well-appearing, nontoxic, answering questions and following commands appropriately SKIN: Over the left anterior forearm there is an approximately 5cm x 5cm area of localized erythema, tenderness, and warmth consistent with cellulitis. No underlying crepitus or bulla formation. AV fistula has no palpable thrill. EYES: Sclerae white. EARS, NOSE, THROAT: Moist oral mucosa. RESPIRATORY: Clear to auscultation bilaterally, no wheezes, crackles, or stridor, no use of accessory muscles CARDIOVASCULAR: Normal rate and regular rhythm. There is no S3, S4, murmur, rub. GASTROINTESTINAL: Abdomen is nondistended. MUSCULOSKELETAL: No peripheral edema. NEUROLOGIC: Patient is awake and alert. Facies were symmetrical. Constitutional Vital Signs, click to edit/add: Last Vital Signs Temp 100.3 F 07/25/25 21:15 Pulse 105 H 07/25/25 20:30 Resp 16 07/25/25 20:30 BP 143/85 H 07/25/25 20:30 Pulse Ox 99 07/25/25 18:36 O2 Del Method Room Air 07/25/25 18:36 Course Vital Signs Vital signs: Vital Signs Temperature 100.5 F H 07/25/25 18:36 Pulse Rate 106 H 07/25/25 18:36 Respiratory Rate 16 07/25/25 18:36 Blood Pressure 149/83 H 07/25/25 18:36 Pulse Oximetry 99 07/25/25 18:36 Oxygen Delivery Method Room Air 07/25/25 18:36 Temperature 100.3 F 07/25/25 21:15 Pulse Rate 105 H 07/25/25 20:30 Respiratory Rate 16 07/25/25 20:30 Blood Pressure 143/85 H 07/25/25 20:30 Pulse Oximetry 99 07/25/25 18:36 Oxygen Delivery Method Room Air 07/25/25 18:36 Medical Decision Making MDM Narrative Medical decision making narrative: Patient is a 54-year-old male, history significant for ESRD on HD Sunday?/Sunday and CAD s/p coronary stent 1 year ago, presenting to the emergency department with 24-hour history of erythema, warmth, and tenderness over the left anterior forearm where his old AV fistula site was located. His vital signs on arrival today were significant for tachycardia and and a fever 100.5 ?F. He was mildly hypertensive. He overall appears well and non-toxic without systemic symptoms. Examination was consistent for cellulitis over the old AV fistula site without evidence of necrotizing fasciitis/crepitus/bulla formation. No underlying fluctuance or obvious abscess formation. We do not have ultrasound in-house today to evaluate the fistula site. He did get a full run of dialysis today. Nonetheless, laboratory studies were obtained to rule out underlying electrolyte derangement. I recommended that the patient receive IV vancomycin for empiric treatment of cellulitis, however the patient is apprehensive for fluid overload associated with IV antibiotics. He politely declined any IV antibiotics. Therefore, he was empirically treated with oral Bactrim for MRSA coverage. He was given oral acetaminophen for his fever. Laboratory studies were significant for leukocytosis of 11.2. No significant anemia or thrombocytopenia. Mild hyponatremia. He has an elevated BUN and creatinine of 6.83, however this is consistent with his history of ESRD. No lactic acidosis. 12 Lead EKG: Sinus tachycardia at a rate of 110. Normal axis. No significant ST segment elevations. There are T wave inversion in the inferior lateral leads and are new compared to May 2025. QRS, CA, and QTc interval within normal limits. Final impression: Sinus tachycardia without evidence of acute STEMI. On reevaluation, the patient is sleeping comfortably. Other than pain in the left forearm, he is asymptomatic. I did offer to send the patient via ambulance to [facility], however the patient declined. He states he would rather prefer taking his private vehicle. I discussed the patient with the hospitalist, Dr. Palma, who accepted the patient to his service. FINAL IMPRESSION: #Acute left forearm cellulitis #History of ESRD on HD DISPOSITION: Transferred to [facility] via private vehicle CONDITION: Fair Lab Data Lab results reviewed: Yes I reviewed the patient's lab results Labs: Lab Results 07/25/25 Range/Units 19:25 WBC 11.2 H (4.0-11.0) 10^3/uL RBC 4.61 L (4.70-6.10) 10^6/uL Hgb 13.8 L (14.0-18.0) g/dL Hct 44.2 (42.0-54.0) % MCV 95.9 H (80.0-94.0) fL MCH 29.9 (25.9-34.0) pg MCHC 31.2 (29.9-35.2) g/dL RDW 15.4 H (11.0-15.0) % Plt Count 288 (150-450) 10^3/uL MPV 9.3 L (9.5-13.5) fL Seg Neuts % (Manual) 89.0 H (43.0-75.0) Band Neutrophils % 1.0 (0-5) % Lymphocytes % (Manual) 6.0 L (20.5-60.0) % Monocytes % (Manual) 4.0 (1.7-12.0) % Eosinophils % (Manual) 0.0 L (0.9-7.0) % Basophils % (Manual) 0.0 L (0.2-2.0) % Neutrophils # (Manual) 9.96 H (1.4-6.5) 10^3/uL Band Neutrophils # 0.1 (0.0-0.3) 10^3/uL Lymphocytes # (Manual) 0.67 L (1.20-3.80) 10^3/uL Monocytes # (Manual) 0.44 (0.30-0.80) 10^3/uL Eosinophils # (Manual) 0.00 (0.00-0.70) 10^3/uL Basophils # (Manual) 0.00 (0.00-0.10) 10^3/uL Sodium 133 L (136-145) mmol/L Potassium 5.0 (3.5-5.1) mmol/L Chloride 95 L (98-107) mmol/L Carbon Dioxide 28.9 (21.0-32.0) mmol/L Anion Gap 14.1 BUN 20.0 H (7.0-18.0) mg/dL Creatinine 6.83 H* (0.70-1.30) mg/dL Est GFR ( Amer) 10 L (>=60 mL/min/1.73m^2) Est GFR (Non-Af Amer) 8 L (>=60 mL/min/1.73m^2) BUN/Creatinine Ratio 2.9 Glucose 103 (74-106) mg/dL Lactate 0.9 (0.4-2.0) mmol/L Calcium 9.1 (8.5-10.1) mg/dL ECG Data Attestation: I personally reviewed and interpreted this ECG as follows: Discharge Plan Discharge Chief Complaint: Skin/Abscess/Foreign Body Clinical Impression: Cellulitis of arm, left, End-stage renal disease (ESRD) Patient Disposition: [facility] Time of Disposition Decision: 21:25 Discharge Location: [facility] Condition: Fair Mode of Transportation: Private Vehicle
[2025-07-25] MEDS: SULFAMETHOXAZOLE/TRIMETHOPRIM 800-160 MG TABLET 1 TAB PO (19:53)
[2025-07-25] MEDS: ACETAMINOPHEN 500 MG TABLET 1000 MG PO (19:53)
[2025-07-25 19:58] LABS: Lactate/Lactic Acid 0.9 mmol/L (0.4-2.0)
[2025-07-25 20:00] LABS: Anion Gap 14.1; Blood Urea Nitrogen 20.0 mg/dL (7.0-18.0); Calcium 9.1 mg/dL (8.5-10.1); Carbon Dioxide 28.9 mmol/L (21.0-32.0); Chloride 95 mmol/L (98-107); Estimated GFR (African America 10 (>=60 mL/min/1.73m^2); Estimated GFR (Non-African Ame 8 (>=60 mL/min/1.73m^2); Glucose 103 mg/dL (74-106); Potassium 5.0 mmol/L (3.5-5.1); Sodium 133 mmol/L (136-145)
[2025-07-25 20:10] LABS: Band Neutrophils Absolute 0.1 10^3/uL (0.0-0.3); Lymphocytes Absolute Manual 0.67 10^3/uL (1.20-3.80); Lymphocytes Percent Manual 6.0 % (20.5-60.0); Segmented Neut Absolute Manual 9.96 10^3/uL (1.4-6.5); Segmented Neutrophils % Manual 89.0 (43.0-75.0)
[2025-07-25 20:11] LABS: Basophils Abs Manual 0.00 10^3/uL (0.00-0.10); Basophils Percent Manual 0.0 % (0.2-2.0); Eosinophils Absolute Manual 0.00 10^3/uL (0.00-0.70); Eosinophils Percent Manual 0.0 % (0.9-7.0); Monocytes Absolute Manual 0.44 10^3/uL (0.30-0.80); Monocytes Percent Manual 4.0 % (1.7-12.0)
[2025-07-26 21:23] LABS: A. calcoaceticus-baumannii Cpx NOT DETECTED (NOT DETECTE); Bacteroides fragilis NOT DETECTED (NOT DETECTE); Candida auris NOT DETECTED (NOT DETECTE); Candida glabrata NOT DETECTED (NOT DETECTE); Enterobacterales NOT DETECTED (NOT DETECTE); Enterococcus faecalis NOT DETECTED (NOT DETECTE); Enterococcus faecium NOT DETECTED (NOT DETECTE); Klebsiella aerogenes NOT DETECTED (NOT DETECTE); Klebsiella pneumoniae group NOT DETECTED (NOT DETECTE); Proteus spp. NOT DETECTED (NOT DETECTE); Salmonella spp. NOT DETECTED (NOT DETECTE); Serratia marcescens NOT DETECTED (NOT DETECTE); Staphylococcus epidermidis NOT DETECTED (NOT DETECTE); Staphylococcus lugdunensis NOT DETECTED (NOT DETECTE); Stenotrophomonas maltophilia NOT DETECTED (NOT DETECTE); Streptococcus pyogenes NOT DETECTED (NOT DETECTE); Streptococcus spp. NOT DETECTED (NOT DETECTE)
[2025-07-26 23:01] LABS: Source BLOOD; mecA/C and MREJ (MRSA) DETECTED (NOT DETECTE)
[2025-07-26 23:02] LABS: Staphylococcus spp. DETECTED (NOT DETECTE)
== END 2025-07-25 22:10 | disposition short-term general hospital (02) ==
PROVIDERS: Emergency Provider Student in an Organized Health Care Education/Training Program; PCP Nurse Practitioner Family
DX: L03.114 Cellulitis of left upper limb (principal); N18.6 End stage renal disease; Z99.2 Dependence on renal dialysis; I25.10 Atherosclerotic heart disease of native coronary artery without angina pectoris; Z95.5 Presence of coronary angioplasty implant and graft; I12.0 Hypertensive chronic kidney disease with stage 5 chronic kidney disease or end stage renal disease; F17.200 Nicotine dependence, unspecified, uncomplicated; R50.9 Fever, unspecified
CPT/HCPCS: 36415; 80048; 83605; 85007; 85027; 87040; 87088; 87150; 87186; 93005; 99285